=== PATIENT | male | born 1955 | race Caucasian/White ===

== ENCOUNTER 2018-01-25 14:01 | Inpatient (IN) | payer OTHER ==
[2018-01-25] MEDS ORDERED: IPRATROPIUM-ALBUTEROL 3 ML NEB INHALATION STA (15:30)
[2018-01-25] MEDS ORDERED: methylPREDNISolone SOD SUCCI 125 MG/2 ML VIAL IV STA (15:30)
--- NOTE | 2018-01-25 15:42 | ED ---
General Adult HPI - General Chief complaint: Recheck/Abnormal Lab/Rx Stated complaint: dehydration, cant eat Time Seen by Provider: 01/25/18 15:07 Source: patient, family, RN notes reviewed Mode of arrival: wheelchair Limitations: no limitations - History of Present Illness Initial comments: Patient is a pleasant 62-year-old male presenting to the emergency Department with complaints of dyspnea. Patient does have COPD. Patient states he is only able to walk 4-6 feet before becoming short of breath. This is a chronic problem for him, worsening or no. No fever or significant cough. Patient has had decreased appetite recently. Patient has had some vomiting. Patient is tolerating fluids. Patient was in the hospital for around 6 weeks ago and did have a stent placed at that time. Patient did go to rehab. Patient feels he could be dehydrated. Patient states his finger discoloration is chronic from [place] - Related Data Home Medications Medication Instructions Recorded Confirmed Albuterol Inhaler [Ventolin Hfa 2 puff INHALATION RT-Q4H PRN 01/25/18 01/25/18 Inhaler] Albuterol Nebulized [Ventolin 2.5 mg INHALATION RT-TID PRN 01/25/18 01/25/18 Nebulized] Aspirin EC [Ecotrin Low Dose] 81 mg PO DAILY 01/25/18 01/25/18 Budesonide [Pulmicort] 0.5 mg INHALATION RT-BID 01/25/18 01/25/18 Clopidogrel Bisulfate [Plavix] 75 mg PO DAILY 01/25/18 01/25/18 Folic Acid 1 mg PO DAILY 01/25/18 01/25/18 Pantoprazole [Protonix] 40 mg PO DAILY 01/25/18 01/25/18 Tamsulosin HCl [Flomax] 0.4 mg PO DAILY 01/25/18 01/25/18 Allergies Allergy/AdvReac Type Severity Reaction Status Date / Time No Known Allergies Allergy Verified 01/25/18 15:23 Review of Systems ROS Statement: Those systems with pertinent positive or pertinent negative responses have been documented in the HPI. ROS Other: All systems not noted in ROS Statement are negative. Constitutional: Denies: fever Eyes: Denies: eye pain ENT: Denies: ear pain Respiratory: Reports: dyspnea Cardiovascular: Reports: chest pain (This has been present for months) Endocrine: Reports: fatigue Gastrointestinal: Reports: nausea, vomiting. Denies: abdominal pain Genitourinary: Denies: dysuria Musculoskeletal: Denies: back pain Skin: Denies: rash Neurological: Denies: headache Past Medical History Past Medical History: Atrial Fibrillation, COPD, Hypertension History of Any Multi-Drug Resistant Organisms: None Reported Past Surgical History: Bowel Resection, Heart Catheterization With Stent Past Psychological History: Depression Smoking Status: Current every day smoker Past Alcohol Use History: Daily Past Drug Use History: None Reported - Past Family History Father Family Medical History: Myocardial Infarction ([place]) Additional Family Medical History / Comment(s): Father had 3 MIs, he had his first one at the age of 50 yrs. He at the age of 85 yrs. Mother Family Medical History: No Reported History Additional Family Medical History / Comment(s): Mother was healthy and lived to be 94 or 95 yrs old. General Exam Limitations: no limitations General appearance: alert, in no apparent distress Head exam: Present: atraumatic Eye exam: Present: normal appearance, PERRL ENT exam: Present: normal oropharynx Neck exam: Present: normal inspection Respiratory exam: Present: decreased breath sounds Cardiovascular Exam: Present: regular rate, normal rhythm GI/Abdominal exam: Present: soft. Absent: tenderness Extremities exam: Present: normal inspection. Absent: pedal edema, calf tenderness Neurological exam: Present: alert Psychiatric exam: Present: normal affect, normal mood Skin exam: Present: other (Multiple fingers with purplish discoloration which patient states is chronic and unchanged) Course Vital Signs 01/25/18 01/25/18 01/25/18 14:14 14:59 15:43 Temperature 98.0 F Pulse Rate 64 120 H 90 Pulse Rate [ Right Sitting Brachial] Respiratory 18 18 Rate Blood Pressure 88/62 102/77 Blood Pressure [Right Arm Sitting] O2 Sat by Pulse 97 Oximetry 01/25/18 01/25/18 01/25/18 15:53 17:00 17:30 Temperature Pulse Rate 86 88 Pulse Rate [ Right Sitting Brachial] Respiratory 37 H 16 Rate Blood Pressure 113/80 Blood Pressure [Right Arm Sitting] O2 Sat by Pulse Oximetry 01/25/18 01/25/18 01/25/18 18:00 18:30 19:00 Temperature Pulse Rate 84 80 90 Pulse Rate [ Right Sitting Brachial] Respiratory 17 15 16 Rate Blood Pressure 110/84 104/69 112/76 Blood Pressure [Right Arm Sitting] O2 Sat by Pulse Oximetry 01/25/18 01/25/18 01/25/18 20:00 20:30 21:00 Temperature Pulse Rate 77 76 86 Pulse Rate [ Right Sitting Brachial] Respiratory 17 16 19 Rate Blood Pressure 135/83 96/72 120/61 Blood Pressure [Right Arm Sitting] O2 Sat by Pulse Oximetry 01/25/18 01/25/18 01/25/18 21:30 21:56 22:00 Temperature Pulse Rate 82 90 79 Pulse Rate [ Right Sitting Brachial] Respiratory 15 16 Rate Blood Pressure 105/63 112/74 Blood Pressure [Right Arm Sitting] O2 Sat by Pulse Oximetry 01/25/18 01/25/18 01/25/18 22:07 22:30 22:35 Temperature Pulse Rate 88 80 71 Pulse Rate [ Right Sitting Brachial] Respiratory 35 H 24 Rate Blood Pressure 113/73 103/85 Blood Pressure [Right Arm Sitting] O2 Sat by Pulse Oximetry 01/26/18 01/26/18 01/26/18 03:49 04:00 05:00 Temperature 97.1 F L Pulse Rate 70 67 66 Pulse Rate [ Right Sitting Brachial] Respiratory 15 21 22 Rate Blood Pressure 95/61 95/61 114/66 Blood Pressure [Right Arm Sitting] O2 Sat by Pulse 100 100 100 Oximetry 01/26/18 01/26/18 01/26/18 06:00 07:50 07:59 Temperature Pulse Rate 68 68 78 Pulse Rate [ Right Sitting Brachial] Respiratory 14 Rate Blood Pressure 106/64 Blood Pressure [Right Arm Sitting] O2 Sat by Pulse 100 Oximetry 01/26/18 01/26/18 01/26/18 08:00 11:38 12:07 Temperature 97.6 F 97.7 F Pulse Rate 75 Pulse Rate [ 65 81 Right Sitting Brachial] Respiratory 18 18 Rate Blood Pressure Blood Pressure 121/64 115/43 [Right Arm Sitting] O2 Sat by Pulse 95 94 L Oximetry 01/26/18 01/26/18 01/26/18 12:18 16:01 16:10 Temperature Pulse Rate 76 78 85 Pulse Rate [ Right Sitting Brachial] Respiratory Rate Blood Pressure Blood Pressure [Right Arm Sitting] O2 Sat by Pulse Oximetry 01/26/18 16:12 Temperature 97.7 F Pulse Rate Pulse Rate [ 76 Right Sitting Brachial] Respiratory 16 Rate Blood Pressure Blood Pressure 110/60 [Right Arm Sitting] O2 Sat by Pulse 95 Oximetry EKG Findings - EKG Comments: EKG Findings:: Normal sinus rhythm 89. NV 150. QRS 78. QT 3. QTC 462. Left axis. Septal Q waves. No acute ST change. Medical Decision Making - Lab Data Result diagrams: 01/25/18 15:00 01/26/18 03:11 Lab Results 01/25/18 01/25/18 01/25/18 Range/Units 15:00 15:00 15:00 WBC 15.1 H (3.8-10.6) k/uL RBC 4.56 (4.30-5.90) m/uL Hgb 16.3 (13.0-17.5) gm/dL Hct 48.7 (39.0-53.0) % MCV 106.8 H (80.0-100.0) fL MCH 35.7 H (25.0-35.0) pg MCHC 33.4 (31.0-37.0) g/dL RDW 12.9 (11.5-15.5) % Plt Count 309 (150-450) k/uL Neutrophils % 79 % Lymphocytes % 11 % Monocytes % 8 % Eosinophils % 1 % Basophils % 0 % Neutrophils # 11.9 H (1.3-7.7) k/uL Lymphocytes # 1.7 (1.0-4.8) k/uL Monocytes # 1.2 H (0-1.0) k/uL Eosinophils # 0.1 (0-0.7) k/uL Basophils # 0.1 (0-0.2) k/uL Macrocytosis Moderate PT (9.0-12.0) sec INR (<1.2) APTT (22.0-30.0) sec Sodium 131 L (137-145) mmol/L Potassium 4.0 (3.5-5.1) mmol/L Chloride 97 L (98-107) mmol/L Carbon Dioxide 16 L (22-30) mmol/L Anion Gap 18 mmol/L BUN 57 H (9-20) mg/dL Creatinine 3.02 H (0.66-1.25) mg/dL Est GFR (CKD-EPI)AfAm 24 (>60 ml/min/1.73 sqM) Est GFR (CKD-EPI)NonAf 21 (>60 ml/min/1.73 sqM) Glucose 142 H (74-99) mg/dL Calcium 10.0 (8.4-10.2) mg/dL Total Bilirubin 0.6 (0.2-1.3) mg/dL AST 23 (17-59) U/L ALT 17 L (21-72) U/L Alkaline Phosphatase 87 (38-126) U/L Total Creatine Kinase 23 L (55-170) U/L CK-MB (CK-2) 4.1 H (0.0-2.4) ng/mL CK-MB (CK-2) Rel Index 17.8 Troponin I 0.042 H* (0.000-0.034) ng/mL NT-Pro-B Natriuret Pep pg/mL Total Protein 7.7 (6.3-8.2) g/dL Albumin 4.3 (3.5-5.0) g/dL 01/25/18 01/25/18 Range/Units 15:00 15:00 WBC (3.8-10.6) k/uL RBC (4.30-5.90) m/uL Hgb (13.0-17.5) gm/dL Hct (39.0-53.0) % MCV (80.0-100.0) fL MCH (25.0-35.0) pg MCHC (31.0-37.0) g/dL RDW (11.5-15.5) % Plt Count (150-450) k/uL Neutrophils % % Lymphocytes % % Monocytes % % Eosinophils % % Basophils % % Neutrophils # (1.3-7.7) k/uL Lymphocytes # (1.0-4.8) k/uL Monocytes # (0-1.0) k/uL Eosinophils # (0-0.7) k/uL Basophils # (0-0.2) k/uL Macrocytosis PT 11.1 (9.0-12.0) sec INR 1.2 H (<1.2) APTT 27.9 (22.0-30.0) sec Sodium (137-145) mmol/L Potassium (3.5-5.1) mmol/L Chloride (98-107) mmol/L Carbon Dioxide (22-30) mmol/L Anion Gap mmol/L BUN (9-20) mg/dL Creatinine (0.66-1.25) mg/dL Est GFR (CKD-EPI)AfAm (>60 ml/min/1.73 sqM) Est GFR (CKD-EPI)NonAf (>60 ml/min/1.73 sqM) Glucose (74-99) mg/dL Calcium (8.4-10.2) mg/dL Total Bilirubin (0.2-1.3) mg/dL AST (17-59) U/L ALT (21-72) U/L Alkaline Phosphatase (38-126) U/L Total Creatine Kinase (55-170) U/L CK-MB (CK-2) (0.0-2.4) ng/mL CK-MB (CK-2) Rel Index Troponin I (0.000-0.034) ng/mL NT-Pro-B Natriuret Pep 1020 pg/mL Total Protein (6.3-8.2) g/dL Albumin (3.5-5.0) g/dL - Radiology Data Radiology results: image reviewed (Chest x-ray shows no acute process) Disposition Clinical Impression: COPD (chronic obstructive pulmonary disease) Disposition: ADMITTED IP TO THIS HOSP Is patient prescribed a controlled substance at d/c from ED?: No
[2018-01-25 15:49] LABS: Basophils # (A) 0.1 k/uL (0-0.2); Basophils % (A) 0 %; Eosinophils # (A) 0.1 k/uL (0-0.7); Eosinophils % (A) 1 %; HCT 48.7 % (39.0-53.0); HGB 16.3 gm/dL (13.0-17.5); Lymphocytes # (A) 1.7 k/uL (1.0-4.8); Lymphocytes % (A) 11 %; MCH 35.7 pg (25.0-35.0); MCHC 33.4 g/dL (31.0-37.0); MCV 106.8 fL (80.0-100.0); Macrocytosis Moderate; Mean Platelet Volume 7.7; Monocytes # (A) 1.2 k/uL (0-1.0); Monocytes % (A) 8 %; Neutrophils # (A) 11.9 k/uL (1.3-7.7); Neutrophils % (A) 79 %; Platelet Count 309 k/uL (150-450); RBC 4.56 m/uL (4.30-5.90); RDW 12.9 % (11.5-15.5); WBC 15.1 k/uL (3.8-10.6)
[2018-01-25 15:58] LABS: Albumin 4.3 g/dL (3.5-5.0); Total Bilirubin 0.6 mg/dL (0.2-1.3); Total Protein 7.7 g/dL (6.3-8.2)
[2018-01-25 15:59] LABS: INR 1.2 (<1.2); Partial Thromboplastin Time 27.9 sec (22.0-30.0); Prothrombin Time 11.1 sec (9.0-12.0)
--- NOTE | 2018-01-25 16:29 | XR ---
EXAMINATION TYPE: XR chest 2V DATE OF EXAM: 01/25/2018 COMPARISON: NONE HISTORY: Difficulty breathing TECHNIQUE: Frontal and lateral views of the chest are obtained on 3 images. FINDINGS: There is no focal air space opacity, pleural effusion, or pneumothorax seen. The cardiac silhouette size is small. The osseous structures are intact. Prominent lung volumes are compatible with underlying COPD. Aorta shows calcification. IMPRESSION: No acute cardiopulmonary process.
[2018-01-25 16:31] LABS: Creatine Kinase MB 4.1 ng/mL (0.0-2.4)
[2018-01-25 16:36] LABS: Troponin I 0.042 ng/mL (0.000-0.034)
[2018-01-25] MEDS ORDERED: IPRATROPIUM-ALBUTEROL 3 ML NEB INHALATION PRN (16:46)
[2018-01-25] MEDS ORDERED: NALOXONE 0.4 MG/ML 1 ML VIAL IV PRN (16:48)
[2018-01-25] MEDS ORDERED: methylPREDNISolone SOD SUCCI 125 MG/2 ML VIAL IV SCH (18:00)
[2018-01-25] MEDS: SODIUM CHLORIDE 0.9% 1,000 ML IV SCH ×2 (20:23→21:45)
[2018-01-25] MEDS ORDERED: ASPIRIN 81 MG PO STA (20:35)
[2018-01-25] MEDS ORDERED: CLOPIDOGREL 75 MG TAB PO STA (20:36)
[2018-01-25] MEDS ORDERED: NITROGLYCERIN SL TABS 0.4 MG TAB SUBLINGUAL PRN (20:38)
--- NOTE | 2018-01-25 20:45 | P.HPIM ---
History of Present Illness H&P Date: 01/25/18 Chief Complaint: shortness of breath/chest pain The patient is a 62-year-old poor historian male with a past medical history of coronary artery disease with recent stent placement at the end of November at [facility] who presents to the ER with chief complaint of ongoing shortness of breath with exertion, the patient denies any significant cough subjective fevers chills or night sweats. He does report intermittent chest discomfort associated with exertion, he denies any lower extremity swelling. 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 He also reports increased output in his ileostomy and decreased appetite. In the ER the patient had a workup that consisted of this chest x-ray that showed no acute intrathoracic process, the patient was noted to have a leukocytosis of 15, and significantly elevated serum creatinine at 3.1, serum sodium of 131, serum bicarb of 15, and troponin at .042. EKG showing septal Q waves, with no acute ischemia. Past Medical History Past Medical History: Atrial Fibrillation, COPD, Hypertension History of Any Multi-Drug Resistant Organisms: None Reported Past Surgical History: Bowel Resection, Heart Catheterization With Stent Past Psychological History: Depression Smoking Status: Current every day smoker Past Alcohol Use History: Daily Past Drug Use History: None Reported Medications and Allergies Home Medications Medication Instructions Recorded Confirmed Type Albuterol Inhaler [Ventolin Hfa 2 puff INHALATION RT-Q4H PRN 01/25/18 01/25/18 History Inhaler] Albuterol Nebulized [Ventolin 2.5 mg INHALATION RT-TID PRN 01/25/18 01/25/18 History Nebulized] Aspirin EC [Ecotrin Low Dose] 81 mg PO DAILY 01/25/18 01/25/18 History Budesonide [Pulmicort] 0.5 mg INHALATION RT-BID 01/25/18 01/25/18 History Clopidogrel Bisulfate [Plavix] 75 mg PO DAILY 01/25/18 01/25/18 History Folic Acid 1 mg PO DAILY 01/25/18 01/25/18 History Pantoprazole [Protonix] 40 mg PO DAILY 01/25/18 01/25/18 History Tamsulosin HCl [Flomax] 0.4 mg PO DAILY 01/25/18 01/25/18 History Allergies Allergy/AdvReac Type Severity Reaction Status Date / Time No Known Allergies Allergy Verified 01/25/18 15:23 Physical Exam Vitals: Vital Signs Temp Pulse Resp BP Pulse Ox 01/25/18 19:00 90 16 112/76 01/25/18 18:30 80 15 104/69 01/25/18 18:00 84 17 110/84 01/25/18 17:30 88 16 113/80 01/25/18 17:00 37 H 01/25/18 15:53 86 01/25/18 15:43 90 01/25/18 14:59 120 H 18 102/77 01/25/18 14:14 98.0 F 64 18 88/62 97 Intake and Output 01/25/18 01/25/18 01/25/18 06:59 14:59 22:59 Other: Weight 62.142 kg Constitutional: No acute distress, conversant, pleasant Eyes: Anicteric sclerae, moist conjunctiva, no lid-lag, PERRLA ENMT: NC/AT,Oropharynx clear, no erythema, exudates Neck:Supple, FROM, no masses, or JVD, No carotid bruits; No thyromegaly Lungs: Clear to auscultation, Clear to percussion, Normal respiratory effort, no accessory muscle use Cardiovascular: Heart regular in rate and rhythm, No murmurs, gallops, or rubs no peripheral edema Abdominal: Soft Nontender, nom distended, no guarding, no rebound or rigidity, Normoactive bowel sounds No hepatomegaly, No splenomegaly, No palpable mass No abdominal wall hernia noted Skin: Normal temperature, tone, texture, turgor, No induration No subcutaneous nodules, No rash, lesions, No ulcers Extremities:No digital cyanosis No clubbing, Pedal pulses intact and symmetrical Radial pulses intact and symmetrical Normal gait and station, No calf tenderness Psychiatric: Alert and oriented to person, place and time, Appropriate affect Intact judgement Neuro: Muscles Strength 5/5 in all 4 extremities, Sensation to light touch grossly present throughout, Cranial nerves II-XII grossly intact. No focal sensory deficits Results CBC & Chem 7: 01/25/18 15:00 01/26/18 03:11 Labs: Abnormal Lab Results - Last 24 Hours (Table) 01/25/18 01/25/18 01/25/18 Range/Units 15:00 15:00 15:00 WBC 15.1 H (3.8-10.6) k/uL MCV 106.8 H (80.0-100.0) fL MCH 35.7 H (25.0-35.0) pg Neutrophils # 11.9 H (1.3-7.7) k/uL Monocytes # 1.2 H (0-1.0) k/uL INR (<1.2) Sodium 131 L (137-145) mmol/L Chloride 97 L (98-107) mmol/L Carbon Dioxide 16 L (22-30) mmol/L BUN 57 H (9-20) mg/dL Creatinine 3.02 H (0.66-1.25) mg/dL Glucose 142 H (74-99) mg/dL ALT 17 L (21-72) U/L Total Creatine Kinase 23 L (55-170) U/L CK-MB (CK-2) 4.1 H (0.0-2.4) ng/mL Troponin I 0.042 H* (0.000-0.034) ng/mL 01/25/18 Range/Units 15:00 WBC (3.8-10.6) k/uL MCV (80.0-100.0) fL MCH (25.0-35.0) pg Neutrophils # (1.3-7.7) k/uL Monocytes # (0-1.0) k/uL INR 1.2 H (<1.2) Sodium (137-145) mmol/L Chloride (98-107) mmol/L Carbon Dioxide (22-30) mmol/L BUN (9-20) mg/dL Creatinine (0.66-1.25) mg/dL Glucose (74-99) mg/dL ALT (21-72) U/L Total Creatine Kinase (55-170) U/L CK-MB (CK-2) (0.0-2.4) ng/mL Troponin I (0.000-0.034) ng/mL Assessment and Plan Assessment: Chronic medical conditions GERD BPH Ileostomy secondary to severe diverticulitis (1) Unstable angina Current Visit: Yes Status: Acute Code(s): I20.0 - UNSTABLE ANGINA SNOMED Code(s): 6425988 (2) Acute kidney injury Current Visit: Yes Status: Acute Code(s): N17.9 - ACUTE KIDNEY FAILURE, UNSPECIFIED SNOMED Code(s): 47805451 (3) COPD (chronic obstructive pulmonary disease) Current Visit: Yes Status: Acute Code(s): J44.9 - CHRONIC OBSTRUCTIVE PULMONARY DISEASE, UNSPECIFIED SNOMED Code(s): 68965433 (4) Coronary artery disease Current Visit: Yes Status: Acute Code(s): I25.10 - ATHSCL HEART DISEASE OF [place] CORONARY ARTERY W/O ANG PCTRS SNOMED Code(s): 50526372 (5) Metabolic acidosis Current Visit: Yes Status: Acute Code(s): E87.2 - ACIDOSIS SNOMED Code(s) : 67965102 (6) Hyponatremia Current Visit: Yes Status: Acute Code(s): E87.1 - HYPO-OSMOLALITY AND HYPONATREMIA SNOMED Code(s): 49276143 Plan: The patient is admitted anticipated greater than 2 midnight stay with dyspnea and intermittent chest pain concern for UA/non stemi . Initial EKG is negative for any acute ischemia troponins are elevated .042 the setting of acute kidney injury versus possible chronic kidney. The patient is placed on dual antiplatelet therapy with Plavix and aspirin and started on IV heparin drip with plans for urgent cardiology consultation. Urinalysis and blood cultures, lactic acid are order given patient's leukocytosis. Acute kidney injury with metabolic acidosis likely prerenal secondary to possible dehydration or cardiorenal, plantar consult nephrology and order renal ultrasound. Patient initiated on maintenance IV fluids after given a 2 L bolus in the ER. CODE STATUS Full code Discussed plan of care with patient/ ER physician Anticipated discharge 2 - 3 days
[2018-01-25] MEDS: HEPARIN SOD,PORK IN 0.45% NACL 25,000 UNIT in 0.45% NACL 1 500ML.BAG IV SCH (21:42)
[2018-01-25] MEDS: IPRATROPIUM-ALBUTEROL 3 ML NEB INHALATION SCH (21:56)
[2018-01-25 22:09] LABS: Creatine Kinase MB 3.9 ng/mL (0.0-2.4)
[2018-01-25 22:10] LABS: Troponin I 0.042 ng/mL (0.000-0.034)
--- NOTE | 2018-01-25 23:00 | US ---
EXAMINATION TYPE: US renals and bladder DATE OF EXAM: 01/25/2018 COMPARISON: NONE CLINICAL HISTORY: HUGH. HUGH Exam limitations patient unable to roll well. EXAM MEASUREMENTS: Right Kidney: 9.0 x 3.3 x 3.7 cm Left Kidney: 10.3 x 4.5 x 3.8 cm Right Kidney: No hydronephrosis or masses seen Left Kidney: No hydronephrosis or masses seen Bladder: wnl Bilateral Jets seen: No There is no evidence for hydronephrosis at this point in time. No nephrolithiasis is seen. No rosy s are identified. The urinary bladder is anechoic. IMPRESSION: No evidence of renal mass or obstruction. Urinary bladder is unremarkable. Right kidney shows mild co rtical thinning.
[2018-01-26] MEDS: SODIUM CHLORIDE 0.9% 1,000 ML IV SCH ×3 (01:33→15:53)
[2018-01-26 03:54] LABS: Albumin 3.2 g/dL (3.5-5.0); Calcium 9.2 mg/dL (8.4-10.2); Potassium 4.6 mmol/L (3.5-5.1); Total Bilirubin 0.4 mg/dL (0.2-1.3); Total Protein 6.1 g/dL (6.3-8.2)
[2018-01-26 03:55] LABS: Creatine Kinase <20 U/L (55-170)
[2018-01-26 04:06] LABS: Creatine Kinase MB 3.4 ng/mL (0.0-2.4); Troponin I 0.029 ng/mL (0.000-0.034)
[2018-01-26 04:28] LABS: Cholesterol 166 mg/dL (<200); HDL Cholesterol 48 mg/dL (40-60); LDL Cholesterol,Calculated 105 mg/dL (0-99); Triglycerides 66 mg/dL (<150)
[2018-01-26 06:40] LABS: Appearance,Urine Clear (Clear); Bilirubin,Urine Negative (Negative); Blood,Urine Negative (Negative); Color,Urine Yellow; Glucose,Urine (UA) Negative (Negative); Ketones,Urine Negative (Negative); Leukocyte Esterase,Urine Negative (Negative); Nitrite,Urine Negative (Negative); PH, Urine 5.5 (5.0-8.0); Protein,Urine Trace (Negative); Specific Gravity,Urine 1.014 (1.001-1.035); Urobilinogen,Urine <2.0 mg/dL (<2.0)
[2018-01-26] MEDS: IPRATROPIUM-ALBUTEROL 3 ML NEB INHALATION SCH ×4 (07:50→19:37)
[2018-01-26] MEDS: PANTOPRAZOLE 40 MG TABLET PO SCH (08:42)
[2018-01-26] MEDS: ASPIRIN 81 MG PO SCH (08:43)
[2018-01-26] MEDS: CLOPIDOGREL 75 MG TAB PO SCH (08:43)
[2018-01-26] MEDS: TAMSULOSIN 0.4 MG CAP.ER.24H PO SCH (08:43)
--- NOTE | 2018-01-26 12:11 | P.CRDCN ---
History of Present Illness Consult date: 01/26/18 Requesting physician: Meghan Ennis Consult reason: chest pain Chief complaint: Shortness of breath and chest discomfort History of present illness: This is a 62-year-old gentleman who is somewhat of a poor historian, he was seen and evaluated in the emergency room. He did not really want to answer any questions he just wanted to be left alone. Patient has past medical history significant for coronary artery disease with a recent stent placement in November at [facility], he also has history of paroxysmal atrial fibrillation, hypertension, COPD, hyperlipidemia, nicotine dependence, bowel resection. He presented to the emergency room on this occasion with ongoing shortness of breath mainly with exertion, he also states that when he exerts himself he's been getting some discomfort in the chest. Patient did also have a recent admission to [facility], diagnosed with acute renal failure and dehydration according to the patient. Chest x-ray on arrival here did not reveal any acute cardiopulmonary process. His EKG showed a normal sinus rhythm with left anterior fascicular block and nonspecific ST-T wave changes. Renal ultrasound did not reveal any evidence of a renal mass or obstruction. Urinary bladder is unremarkable. Right kidney shows mild cortical thinning. Blood pressure 115/40 heart rate in the 80s temperature 90.7 0.794% on 2 L of oxygen. White blood cell count 15.1, hemoglobin 16.3, platelet count 309. Sodium 130, potassium 4.6, BUN 54, creatinine 2.6. BUN on admission 57 and creatinine 3.0. Troponin 0.042, 0.042, 0.029. Cholesterol level is 166, LDL 105, HDL 48, and triglycerides 66. At the time of my examination in the emergency room, patient was denying any chest discomfort. Past Medical History Past Medical History: Atrial Fibrillation, Coronary Artery Disease (CAD), COPD, GERD/Reflux, Hypertension, Pneumonia, Prostate Disorder Additional Past Medical History / Comment(s): Pt states he recently had PCI with stents about [address] [facility], generalized chronic pain, past multiple fractures including cervical fracture, severe diverticulitis with bowel resection/ileostomy and had bladder injury during surgery which required surgery then devloped an abdominal abscess which also required surgery, recent acute renal failure possibly d/t dehydration, 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 History of Any Multi-Drug Resistant Organisms: None Reported Past Surgical History: Appendectomy, Bladder Surgery, Bowel Resection, Heart Catheterization With Stent, Hernia Repair, Orthopedic Surgery Additional Past Surgical History / Comment(s): 11/2017 PCI with stent at [facility], colonoscopies, bowel resection with ileostomy, cystoscopy for bladder repair, abdominal abscess with surgical intervention, R inguinal hernia repair with mesh, R knee arthroscopy. Past Anesthesia/Blood Transfusion Reactions: No Reported Reaction Date of Last Stent Placement:: 12/06/17 Smoking Status: Current every day smoker - Past Family History Father Family Medical History: Myocardial Infarction ([place]) Additional Family Medical History / Comment(s): Father had 3 MIs, he had his first one at the age of 50 yrs. He at the age of 85 yrs. Mother Family Medical History: No Reported History Additional Family Medical History / Comment(s): Mother was healthy and lived to be 94 or 95 yrs old. Medications and Allergies Home Medications Medication Instructions Recorded Confirmed Type Albuterol Inhaler [Ventolin Hfa 2 puff INHALATION RT-Q4H PRN 01/25/18 01/25/18 History Inhaler] Albuterol Nebulized [Ventolin 2.5 mg INHALATION RT-TID PRN 01/25/18 01/25/18 History Nebulized] Aspirin EC [Ecotrin Low Dose] 81 mg PO DAILY 01/25/18 01/25/18 History Budesonide [Pulmicort] 0.5 mg INHALATION RT-BID 01/25/18 01/25/18 History Clopidogrel Bisulfate [Plavix] 75 mg PO DAILY 01/25/18 01/25/18 History Folic Acid 1 mg PO DAILY 01/25/18 01/25/18 History Pantoprazole [Protonix] 40 mg PO DAILY 01/25/18 01/25/18 History Tamsulosin HCl [Flomax] 0.4 mg PO DAILY 01/25/18 01/25/18 History Allergies Allergy/AdvReac Type Severity Reaction Status Date / Time No Known Allergies Allergy Verified 01/25/18 15:23 Physical Exam Vitals: Vital Signs Temp Pulse Pulse Resp BP BP Pulse Ox 01/26/18 11:38 97.7 F 81 18 115/43 94 L 01/26/18 08:00 97.6 F 65 18 121/64 95 01/26/18 07:59 78 01/26/18 07:50 68 01/26/18 06:00 68 14 106/64 100 01/26/18 05:00 66 22 114/66 100 01/26/18 04:00 67 21 95/61 100 01/26/18 03:49 97.1 F L 70 15 95/61 100 01/25/18 22:35 71 24 103/85 01/25/18 22:30 80 35 H 113/73 01/25/18 22:07 88 01/25/18 22:00 79 16 112/74 01/25/18 21:56 90 01/25/18 21:30 82 15 105/63 01/25/18 21:00 86 19 120/61 01/25/18 20:30 76 16 96/72 01/25/18 20:00 77 17 135/83 01/25/18 19:00 90 16 112/76 01/25/18 18:30 80 15 104/69 01/25/18 18:00 84 17 110/84 01/25/18 17:30 88 16 113/80 01/25/18 17:00 37 H 01/25/18 15:53 86 01/25/18 15:43 90 01/25/18 14:59 120 H 18 102/77 01/25/18 14:14 98.0 F 64 18 88/62 97 PHYSICAL EXAMINATION: GENERAL: 62-year-old gentleman in no acute distress at the time of my examination HEENT: Head is atraumatic, normocephalic. Pupils equal, round. Sclera anicteric. Conjunctiva are clear. Mucous membranes of the mouth are moist. Neck is supple. There is no elevated jugular venous pressure. No carotid bruit is heard. HEART EXAMINATION: Heart S1, S2 normal. No murmur or gallop heard. CHEST EXAMINATION: Lungs are clear to auscultation and precussion. No chest wall tenderness is noted on palpation or with deep breathing. ABDOMEN: Soft, nontender. Bowel sounds are heard. No organomegaly noted. EXTREMITIES: 2+ peripheral pulses with no evidence of peripheral edema and no calf tenderness noted. NEUROLOGIC patient is awake, alert and oriented 3 . . Results 01/25/18 15:00 01/26/18 03:11 Cardiac Enzymes 01/25/18 01/25/18 01/25/18 Range/Units 15:00 15:00 20:59 AST 23 (17-59) U/L CK-MB (CK-2) 4.1 H 3.9 H (0.0-2.4) ng/mL Troponin I 0.042 H* 0.042 H* (0.000-0.034) ng/mL 01/26/18 01/26/18 Range/Units 03:11 03:11 AST 20 (17-59) U/L CK-MB (CK-2) 3.4 H (0.0-2.4) ng/mL Troponin I 0.029 (0.000-0.034) ng/mL Coagulation 01/25/18 01/26/18 Range/Units 15:00 03:53 PT 11.1 (9.0-12.0) sec APTT 27.9 48.2 H (22.0-30.0) sec Lipids 01/26/18 Range/Units 03:11 Triglycerides 66 (<150) mg/dL Cholesterol 166 (<200) mg/dL HDL Cholesterol 48 (40-60) mg/dL CBC 01/25/18 Range/Units 15:00 WBC 15.1 H (3.8-10.6) k/uL RBC 4.56 (4.30-5.90) m/uL Hgb 16.3 (13.0-17.5) gm/dL Hct 48.7 (39.0-53.0) % Plt Count 309 (150-450) k/uL Comprehensive Metabolic Panel 01/25/18 01/26/18 Range/Units 15:00 03:11 Sodium 131 L 130 L (137-145) mmol/L Potassium 4.0 4.6 (3.5-5.1) mmol/L Chloride 97 L 101 (98-107) mmol/L Carbon Dioxide 16 L 15 L (22-30) mmol/L BUN 57 H 54 H (9-20) mg/dL Creatinine 3.02 H 2.60 H (0.66-1.25) mg/dL Glucose 142 H 161 H (74-99) mg/dL Calcium 10.0 9.2 (8.4-10.2) mg/dL AST 23 20 (17-59) U/L ALT 17 L 14 L (21-72) U/L Alkaline Phosphatase 87 68 (38-126) U/L Total Protein 7.7 6.1 L (6.3-8.2) g/dL Albumin 4.3 3.2 L (3.5-5.0) g/dL Current Medications Generic Name Dose Route Start Last Admin Trade Name Freq PRN Reason Stop Dose Admin Albuterol/Ipratropium 3 ml 01/25/18 20:00 01/26/18 07:50 Duoneb 0.5 Mg-3 Mg/3 Ml Soln INHALATION 3 ml RT-QID MARTI Administration Albuterol/Ipratropium 3 ml 01/25/18 16:46 Duoneb 0.5 Mg-3 Mg/3 Ml Soln INHALATION RT-Q4H PRN Shortness Of Breath Or Wheezing Aspirin 81 mg 01/26/18 09:00 01/26/18 08:43 Aspirin PO 81 mg DAILY MARTI Administration Clopidogrel Bisulfate 75 mg 01/26/18 09:00 01/26/18 08:43 Plavix PO 75 mg DAILY MARTI Administration Folic Acid 1 mg 01/26/18 12:00 Folic Acid PO DAILY@1200 MARTI Sodium Chloride 1,000 mls @ 100 mls/hr 01/25/18 17:00 01/26/18 03:47 Saline 0.9% IV 100 mls/hr .Q10H MARTI Administration Heparin Sodium/Sodium Chloride 500 mls @ 14.91 mls/hr 01/25/18 20:45 21:42 25,000 unit/ Sodium Chloride IV 12 units/kg/hr .Q24H MARTI 14.91 mls/hr Administration Protocol 12 UNITS/KG/HR Naloxone HCl 0.2 mg 01/25/18 16:48 Narcan IV Q2M PRN Opioid Reversal Nitroglycerin 0.4 mg 01/25/18 20:38 Nitrostat SUBLINGUAL Q5M PRN Chest Pain Pantoprazole Sodium 40 mg 01/26/18 09:00 01/26/18 08:42 Protonix PO 40 mg DAILY MARTI Administration Tamsulosin HCl 0.4 mg 01/26/18 09:00 01/26/18 08:43 Flomax PO 0.4 mg DAILY MARTI Administration 01/25/18 15:00 01/26/18 03:11 EKG Interpretations (text) EKG shows normal sinus rhythm with left anterior fascicular block and nonspecific ST-T wave changes. Assessment and Plan Plan: Assessment and plan #1 chest pain, atypical in nature. EKG shows normal sinus rhythm with no acute changes. Troponins 0.042, 0.042, 0.029. #2 known history of coronary artery disease with recent stent placement at [facility] #3 hyperlipidemia #4 hypertension #5 nicotine dependence #6 ileostomy secondary to severe diverticulitis #7 COPD #8 acute on chronic renal failure Plan According to the patient, he just had an echocardiogram with Doppler study performed at [facility] one week ago we will obtain a copy of that. We will also get records and lab data from there. We will also obtain a copy of the patient's stent placement that he had done in November at [facility]. Continue aspirin 81 mg daily, Plavix 75 mg daily, IV heparin, we will also start the patient on a statin and beta lula. Further recommendations to follow. DNP note has been reviewed, I agree with a documented findings and plan of care. Patient was seen and examined.
--- NOTE | 2018-01-26 13:30 | P.PN ---
Subjective Progress Note Date: 01/26/18 The patient is a 62 yo M with a PMH of CAD s/p PCI w/ stent placement in 11/2017 @ [facility], severe diverticulitis requiring ileostomy (2004), who presented to the ED w/ c/o gradually worsening exertional dyspnea. The patient was recently hospitalized at [facility] where he was treated for ARF. He notes that he has been experiencing gradually worsening SOB though denied chest pain, cough, fever, chills, or diaphoresis. He also endorsed intermittent abdominal pain w/ nausea, vomiting and anorexia. In the ED, the patient was noted to have Troponin 0.042, Creatinine 3.02, WBC 15.1, and Sodium 131. He was admitted to the medicine service for evaluation of chest pain and SOB w/ suspected unstable angina and HUGH. This morning the patient was seen and examined at the bedside. He continued to c/o exertional dyspnea but denied any active chest pain. He denied any further episodes of nausea, vomiting, diarphoresis, dizziness, abdominal pain, headache, or visual changes. Objective - Vital Signs Vital signs: Vital Signs Temp 97.7 F 01/26/18 11:38 Pulse 81 01/26/18 11:38 Resp 18 01/26/18 11:38 BP 115/43 01/26/18 11:38 Pulse Ox 94 L 01/26/18 11:38 Intake & Output 01/25/18 01/26/18 01/26/18 18:59 06:59 18:59 Weight 62.142 kg - Exam General: Non-toxic, in no acute distress, appears older than age HEENT: NC/AT, anicteric sclerae, moist conjunctiva, no lid-lag, PERRLA Cardiovascular: S1/S2 wnl, no murmurs, rubs, or gallops Lungs: Clear to auscultation, normal respiratory effort, no accessory muscle use Abdominal: Soft, nontender, non-distended, no guarding, rebound, or rigidity, L colostomy bag intact, surrounding skin normal Skin: Warm, dry Extremities: No edema or contractures Psychiatric: Alert and oriented to person, place and time, appropriate affect, Intact judgment Neuro: CN II-XII grossly intact, Strength 5/5 in all 4 extremities, Speech intact, Sensation to light touch grossly intact throughout - Labs CBC & Chem 7: 01/25/18 15:00 01/26/18 03:11 Labs: Abnormal Lab Results - Last 24 Hours (Table) 01/25/18 01/25/18 01/25/18 Range/Units 15:00 15:00 15:00 WBC 15.1 H (3.8-10.6) k/uL MCV 106.8 H (80.0-100.0) fL MCH 35.7 H (25.0-35.0) pg Neutrophils # 11.9 H (1.3-7.7) k/uL Monocytes # 1.2 H (0-1.0) k/uL INR (<1.2) APTT (22.0-30.0) sec Sodium 131 L (137-145) mmol/L Chloride 97 L (98-107) mmol/L Carbon Dioxide 16 L (22-30) mmol/L BUN 57 H (9-20) mg/dL Creatinine 3.02 H (0.66-1.25) mg/dL Glucose 142 H (74-99) mg/dL ALT 17 L (21-72) U/L Total Creatine Kinase 23 L (55-170) U/L CK-MB (CK-2) 4.1 H (0.0-2.4) ng/mL Troponin I 0.042 H* (0.000-0.034) ng/mL Total Protein (6.3-8.2) g/dL Albumin (3.5-5.0) g/dL LDL Cholesterol, Calc (0-99) mg/dL Urine Protein (Negative) 01/25/18 01/25/18 01/26/18 Range/Units 15:00 20:59 03:11 WBC (3.8-10.6) k/uL MCV (80.0-100.0) fL MCH (25.0-35.0) pg Neutrophils # (1.3-7.7) k/uL Monocytes # (0-1.0) k/uL INR 1.2 H (<1.2) APTT (22.0-30.0) sec Sodium (137-145) mmol/L Chloride (98-107) mmol/L Carbon Dioxide (22-30) mmol/L BUN (9-20) mg/dL Creatinine (0.66-1.25) mg/dL Glucose (74-99) mg/dL ALT (21-72) U/L Total Creatine Kinase 27 L <20 L (55-170) U/L CK-MB (CK-2) 3.9 H 3.4 H (0.0-2.4) ng/mL Troponin I 0.042 H* (0.000-0.034) ng/mL Total Protein (6.3-8.2) g/dL Albumin (3.5-5.0) g/dL LDL Cholesterol, Calc (0-99) mg/dL Urine Protein (Negative) 01/26/18 01/26/18 01/26/18 Range/Units 03:11 03:11 03:53 WBC (3.8-10.6) k/uL MCV (80.0-100.0) fL MCH (25.0-35.0) pg Neutrophils # (1.3-7.7) k/uL Monocytes # (0-1.0) k/uL INR (<1.2) APTT 48.2 H (22.0-30.0) sec Sodium 130 L (137-145) mmol/L Chloride (98-107) mmol/L Carbon Dioxide 15 L (22-30) mmol/L BUN 54 H (9-20) mg/dL Creatinine 2.60 H (0.66-1.25) mg/dL Glucose 161 H (74-99) mg/dL ALT 14 L (21-72) U/L Total Creatine Kinase (55-170) U/L CK-MB (CK-2) (0.0-2.4) ng/mL Troponin I (0.000-0.034) ng/mL Total Protein 6.1 L (6.3-8.2) g/dL Albumin 3.2 L (3.5-5.0) g/dL LDL Cholesterol, Calc 105 H (0-99) mg/dL Urine Protein (Negative) 01/26/18 Range/Units 06:12 WBC (3.8-10.6) k/uL MCV (80.0-100.0) fL MCH (25.0-35.0) pg Neutrophils # (1.3-7.7) k/uL Monocytes # (0-1.0) k/uL INR (<1.2) APTT (22.0-30.0) sec Sodium (137-145) mmol/L Chloride (98-107) mmol/L Carbon Dioxide (22-30) mmol/L BUN (9-20) mg/dL Creatinine (0.66-1.25) mg/dL Glucose (74-99) mg/dL ALT (21-72) U/L Total Creatine Kinase (55-170) U/L CK-MB (CK-2) (0.0-2.4) ng/mL Troponin I (0.000-0.034) ng/mL Total Protein (6.3-8.2) g/dL Albumin (3.5-5.0) g/dL LDL Cholesterol, Calc (0-99) mg/dL Urine Protein Trace H (Negative) Assessment and Plan Plan: Exertional dyspnea, atypical chest pain, Troponin elevation - Cardiology recs appreciated - C/w Aspirin, Plavix, Statin, BB, and IV Heparin as per cardiology recs - Troponin downtrended - EKG and CXR reviewed Leukocytosis - UA unremarkable - Lactate 2.0 - No clear signs of infection - Possibly reactive HUGH on CKD - Renal US showing mild cortical thickening of R kidney - Possibly secondary to dehydration - Will monitor. Improved Hyponatremia - Possibly reactive from pain and nausea/vomiting vs due to poor oral intake - Monitor for now COPD - C/w Budesonide inhaler bid w/ Albuterol prn BPH - C/w Flomax DVT//GI prophylaxis - IV Heparin - Protonix Discussed with: Patient Anticipated discharge date: 01/28/[address]: Home A total of 40 minutes was spent on the care of this complex patient more than 50 % of the time was spent in counseling and care coordination.
[2018-01-26] MEDS: FOLIC ACID 1 MG TAB PO SCH (15:48)
--- NOTE | 2018-01-26 16:05 | P.CNPUL ---
History of Present Illness Consult date: 01/26/18 Requesting physician: Nacho Sy Reason for consult: dyspnea, chest pain Chief complaint: Dyspnea, chest pain History of present illness: This is 62-year-old white male patient past medical history of COPD, coronary artery disease with recent stenting, atrial fibrillation, hypertension, continue dependence, depression, is on to the emergency department on 2017 for evaluation of chest pain, shortness of breath, subjective chills, nausea. He reports poor appetite recently, reported some vomiting. His chest pain is on the left side of his anterior chest, occasionally spreads across his precordium. Patient also reports generalized pain, in his fingers, chest, he has history of Raynaud's syndrome, and history of chronic pain. He is not oxygen dependent and his baseline, the nebulizer machine at home, not on any other inhalers, he has never seen a veterinary milk specialist in the past. He recently quit smoking 2 months ago, carries [id number] smoking history. EKG showed normal sinus rhythm with evidence of septal infarct of undetermined age. Chest x-ray showed no acute cardiopulmonary process. Labs showed WBC of 15.1 , hemoglobin is 16.3, sodium is 131, potassium is 4.0, chloride is 97, CO2 was 16, BUN is 57, creatinine is 3.02. Patient had elevated troponins, 0.042, 0.042 and 0.0-9. He was seen and evaluated by cardiology. ProBNP was 1020. Urinalysis was negative, ultrasound did not show any hydronephrosis. [place] [facility] [place] to rehab facility after hospitalization, where he signed himself out about a week ago. He is currently on dual Platelet therapy, with aspirin and Plavix, heparin infusion at 12 units per kilo per hour. His COPD seems to be fairly stable at this time , there is no significant coughing or chest congestion or wheezing. He was started on nebulized bronchodilators, he was given a dose of IV Solu-Medrol in the emergency department. At the time of our evaluation patient is seen on the gurney, calm and comfortable, is a poor historian, and he wants to be left alone , wants to sleep. We're seeing this patient in consultation for his COPD Review of Systems All systems: negative Constitutional: Denies chills, Denies fever Eyes: denies blurred vision, denies pain Ears, nose, mouth and throat: Denies headache, Denies sore throat Cardiovascular: Reports chest pain, Denies shortness of breath Respiratory: Reports dyspnea, Denies cough Gastrointestinal: Denies abdominal pain, Denies diarrhea, Denies nausea, Denies vomiting Musculoskeletal: Denies myalgias Integumentary: Denies pruritus, Denies rash Neurological: Denies numbness, Denies weakness Psychiatric: Denies anxiety, Denies depression Endocrine: Denies fatigue, Denies weight change Past Medical History Past Medical History: Atrial Fibrillation, Coronary Artery Disease (CAD), COPD, GERD/Reflux, Hypertension, Pneumonia, Prostate Disorder Additional Past Medical History / Comment(s): Pt states he recently had PCI with stents about 6 weeks ago at [facility], generalized chronic pain, past multiple fractures including cervical fracture, severe diverticulitis with bowel resection/ileostomy and had bladder injury during surgery which required surgery then devloped an abdominal abscess which also required surgery, recent acute renal failure possibly d/t dehydration, 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 History of Any Multi-Drug Resistant Organisms: None Reported Past Surgical History: Appendectomy, Bladder Surgery, Bowel Resection, Heart Catheterization With Stent, Hernia Repair, Orthopedic Surgery Additional Past Surgical History / Comment(s): 11/2017 PCI with stent at [facility], colonoscopies, bowel resection with ileostomy, cystoscopy for bladder repair, abdominal abscess with surgical intervention, R inguinal hernia repair with mesh, R knee arthroscopy. Past Anesthesia/Blood Transfusion Reactions: No Reported Reaction Date of Last Stent Placement:: 12/06/17 Smoking Status: Current every day smoker - Past Family History Father Family Medical History: Myocardial Infarction ([place]) Additional Family Medical History / Comment(s): Father had 3 MIs, he had his first one at the age of 50 yrs. He at the age of 85 yrs. Mother Family Medical History: No Reported History Additional Family Medical History / Comment(s): Mother was healthy and lived to be 94 or 95 yrs old. Medications and Allergies Home Medications Medication Instructions Recorded Confirmed Type Albuterol Inhaler [Ventolin Hfa 2 puff INHALATION RT-Q4H PRN 01/25/18 01/25/18 History Inhaler] Albuterol Nebulized [Ventolin 2.5 mg INHALATION RT-TID PRN 01/25/18 01/25/18 History Nebulized] Aspirin EC [Ecotrin Low Dose] 81 mg PO DAILY 01/25/18 01/25/18 History Budesonide [Pulmicort] 0.5 mg INHALATION RT-BID 01/25/18 01/25/18 History Clopidogrel Bisulfate [Plavix] 75 mg PO DAILY 01/25/18 01/25/18 History Folic Acid 1 mg PO DAILY 01/25/18 01/25/18 History Pantoprazole [Protonix] 40 mg PO DAILY 01/25/18 01/25/18 History Tamsulosin HCl [Flomax] 0.4 mg PO DAILY 01/25/18 01/25/18 History Allergies Allergy/AdvReac Type Severity Reaction Status Date / Time No Known Allergies Allergy Verified 01/25/18 15:23 Physical Exam Vitals: Vital Signs Temp Pulse Pulse Resp BP BP Pulse Ox 01/26/18 12:18 76 01/26/18 12:07 75 01/26/18 11:38 97.7 F 81 18 115/43 94 L 01/26/18 08:00 97.6 F 65 18 121/64 95 01/26/18 07:59 78 01/26/18 07:50 68 01/26/18 06:00 68 14 106/64 100 01/26/18 05:00 66 22 114/66 100 01/26/18 04:00 67 21 95/61 100 01/26/18 03:49 97.1 F L 70 15 95/61 100 01/25/18 22:35 71 24 103/85 01/25/18 22:30 80 35 H 113/73 01/25/18 22:07 88 01/25/18 22:00 79 16 112/74 01/25/18 21:56 90 01/25/18 21:30 82 15 105/63 01/25/18 21:00 86 19 120/61 01/25/18 20:30 76 16 96/72 01/25/18 20:00 77 17 135/83 01/25/18 19:00 90 16 112/76 01/25/18 18:30 80 15 104/69 01/25/18 18:00 84 17 110/84 01/25/18 17:30 88 16 113/80 01/25/18 17:00 37 H 01/25/18 15:53 86 01/25/18 15:43 90 GENERAL EXAM: 62-year-old thin white male, resting on the gurney, sleeping, but easily arousable to verbal stimuli, he is not willing to participate in the interview, he wants to be left alone he wants to sleep, but he is comfortable in no apparent distress. HEAD: Normocephalic/atraumatic. EYES: Normal reaction of pupils, equal size. Conjunctiva pink, sclera white. NOSE: Clear with pink turbinates. THROAT: No erythema or exudates. NECK: No masses, no JVD, no thyroid enlargement, no adenopathy. CHEST: No chest wall deformity. Symmetrical expansion. LUNGS: Diminished breath sounds bilaterally, wheezing, no rhonchi, no rales CVS: Regular rate and rhythm, normal S1 and S2, no gallops, no murmurs, no rubs ABDOMEN: Soft, nontender. No hepatosplenomegaly, normal bowel sounds, no guarding or rigidity. EXTREMITIES: No clubbing, no edema, no cyanosis, 2+ pulses and upper and lower extremities. MUSCULOSKELETAL: Muscle strength and tone normal. SPINE: No scoliosis or deformity SKIN: No rashes CENTRAL NERVOUS SYSTEM: Alert and oriented -3. No focal deficits, tone is normal in all 4 extremities. PSYCHIATRIC: Alert and oriented -3. Appropriate affect. Intact judgment and insight. Results - Laboratory Findings CBC and BMP: 01/25/18 15:00 01/26/18 03:11 PT/INR, D-dimer PT 11.1 sec (9.0-12.0) 01/25/18 15:00 INR 1.2 (<1.2) H 01/25/18 15:00 Abnormal lab findings: Abnormal Labs 01/25/18 01/25/18 01/25/18 15:00 15:00 15:00 WBC 15.1 H MCV 106.8 H MCH 35.7 H Neutrophils # 11.9 H Monocytes # 1.2 H INR APTT Sodium 131 L Chloride 97 L Carbon Dioxide 16 L BUN 57 H Creatinine 3.02 H Glucose 142 H ALT 17 L Total Creatine Kinase 23 L CK-MB (CK-2) 4.1 H Troponin I 0.042 H* Total Protein Albumin LDL Cholesterol, Calc Urine Protein 01/25/18 01/25/18 01/26/18 15:00 20:59 03:11 WBC MCV MCH Neutrophils # Monocytes # INR 1.2 H APTT Sodium Chloride Carbon Dioxide BUN Creatinine Glucose ALT Total Creatine Kinase 27 L <20 L CK-MB (CK-2) 3.9 H 3.4 H Troponin I 0.042 H* Total Protein Albumin LDL Cholesterol, Calc Urine Protein 01/26/18 01/26/18 01/26/18 03:11 03:11 03:53 WBC MCV MCH Neutrophils # Monocytes # INR APTT 48.2 H Sodium 130 L Chloride Carbon Dioxide 15 L BUN 54 H Creatinine 2.60 H Glucose 161 H ALT 14 L Total Creatine Kinase CK-MB (CK-2) Troponin I Total Protein 6.1 L Albumin 3.2 L LDL Cholesterol, Calc 105 H Urine Protein 01/26/18 06:12 WBC MCV MCH Neutrophils # Monocytes # INR APTT Sodium Chloride Carbon Dioxide BUN Creatinine Glucose ALT Total Creatine Kinase CK-MB (CK-2) Troponin I Total Protein Albumin LDL Cholesterol, Calc Urine Protein Trace H - Diagnostic Findings Chest x-ray: report reviewed, image reviewed Additional studies: EKG, renal ultrasound results reviewed Assessment and Plan Plan: Assessment: #1. Chest pain, troponin elevation, exertional dyspnea, rule out ACS, cardiology is following #2. Coronary artery disease with [place] [facility] [place] #3. COPD, not oxygen dependent a baseline, currently stable #4. Nicotine dependence, in remission, patient carries [id number] smoking history, quit 2 months ago #5. Acute kidney injury likely secondary to dehydration #6. Chronic kidney disease, and baseline kidney function is unknown #7. Hyponatremia, likely hypovolemic #8. Anion gap metabolic acidosis, improving with IV fluids #9. Paroxysmal atrial fibrillation, in sinus rhythm, not on any chronic anticoagulation #10. BPH, on Flomax Plan: Patient COPD seems to be stable at this time, no wheezing, no cough, no chest congestion. Continue with nebulized bronchodilators, no need for additional steroids. Patient has diffuse pain, in his fingertips, left-sided chest discomfort, he is undergoing evaluation by cardiology. Patient has had no further nausea or vomiting. Receiving gentle IV hydration, profile is improving. No fever or chills. I performed a history & physical examination of the patient and discussed their management with my nurse practitioner, Carolee Robison. I reviewed the nurse practitioner's note and agree with the documented findings and plan of care. Lung sounds are positive for diminished breath sounds. The findings and the impression was discussed with the patient. I attest to the documentation by the nurse practitioner. Time with Patient: Greater than 30
[2018-01-27] MEDS: HEPARIN SOD,PORK IN 0.45% NACL 25,000 UNIT in 0.45% NACL 1 500ML.BAG IV SCH (00:48)
[2018-01-27] MEDS: ATORVASTATIN 80 MG TAB PO SCH ×2 (04:51→22:35)
[2018-01-27] MEDS: SODIUM CHLORIDE 0.9% 1,000 ML IV SCH ×3 (04:52→11:35)
[2018-01-27] MEDS: METOPROLOL TARTRATE 25 MG TAB PO SCH ×3 (04:52→22:35)
[2018-01-27] MEDS: PANTOPRAZOLE 40 MG TABLET PO SCH (08:32)
[2018-01-27] MEDS: ASPIRIN 81 MG PO SCH (08:32)
[2018-01-27] MEDS: TAMSULOSIN 0.4 MG CAP.ER.24H PO SCH (08:32)
[2018-01-27] MEDS: CLOPIDOGREL 75 MG TAB PO SCH (08:33)
[2018-01-27] MEDS: IPRATROPIUM-ALBUTEROL 3 ML NEB INHALATION SCH ×4 (08:43→21:19)
[2018-01-27] MEDS: FOLIC ACID 1 MG TAB PO SCH (11:34)
--- NOTE | 2018-01-27 12:34 | P.PN ---
Subjective Progress Note Date: 01/27/18 Principal diagnosis: Chest pain, exertional dyspnea, nausea, vomiting, weakness This is 62-year-old white male patient past medical history of COPD, coronary artery disease with recent stenting, atrial fibrillation, hypertension, continue dependence, depression, is on to the emergency department on 2017 for evaluation of chest pain, shortness of breath, subjective chills, nausea. He reports poor appetite recently, reported some vomiting. His chest pain is on the left side of his anterior chest, occasionally spreads across his precordium. Patient also reports generalized pain, in his fingers, chest, he has history of Raynaud's syndrome, and history of chronic pain. He is not oxygen dependent and his baseline, the nebulizer machine at home, not on any other inhalers, he has never seen a land acquisition specialist in the past. He recently quit smoking 2 months ago, carries [id number] smoking history. EKG showed normal sinus rhythm with evidence of septal infarct of undetermined age. Chest x-ray showed no acute cardiopulmonary process. Labs showed WBC of 15.1 , hemoglobin is 16.3, sodium is 131, potassium is 4.0, chloride is 97, CO2 was 16, BUN is 57, creatinine is 3.02. Patient had elevated troponins, 0.042, 0.042 and 0.0-9. He was seen and evaluated by cardiology. ProBNP was 1020. Urinalysis was negative, ultrasound did not show any hydronephrosis. Patient had recent cardiac stenting at [facility], he was sent to rehab facility after hospitalization, where he signed himself out about a week ago. He is currently on dual Platelet therapy, with aspirin and Plavix, heparin infusion at 12 units per kilo per hour. His COPD seems to be fairly stable at this time , there is no significant coughing or chest congestion or wheezing. He was started on nebulized bronchodilators, he was given a dose of IV Solu-Medrol in the emergency department. At the time of our evaluation patient is seen on the gurney, calm and comfortable, is a poor historian, and he wants to be left alone , wants to sleep. We're seeing this patient in consultation for his COPD On 01/27/2018 patient seen in follow-up on selective care unit, he is resting comfortably in bed, more awake, and conversant, operative with interview, no fever or chills, pulse ox on 3 L per nasal cannula was 98%. Denies any chest pain. No cough, no chest congestion, or hemoptysis. Lung sounds are diminished , no rhonchi or wheezes noted. No new labs. Chest x-ray was reviewed, and showed no evidence of pneumonia or acute pulmonary process. Patient's COPD stable, cardiology is following. From pulmonary standpoint he stable, could be discharged home or rehab once cleared by cardiology. Objective - Vital Signs Vital signs: Vital Signs Temp 97.8 F 01/27/18 11:48 Pulse 84 01/27/18 12:09 Resp 18 01/27/18 11:48 BP 82/49 01/27/18 11:48 Pulse Ox 98 01/27/18 11:48 Intake & Output 01/26/18 01/27/18 01/27/18 18:59 06:59 18:59 Intake Total 285 480 Output Total 600 250 Balance -315 230 Intake: Intake, IV Titration 45 Amount Heparin Sod,Pork in 0.45% 45 NaCl 25,000 unit In 0.45 % NaCl 1 500ml.bag @ 12 UNITS/KG/HR 14.91 mls/hr IV .Q24H MARTI Rx#: [id number] Oral 240 480 Output: Urine 600 250 Other: # Voids 1 # Bowel Movements 1 0 - Exam #1. Chest pain, troponin elevation, exertional dyspnea, rule out ACS, cardiology is following #2. Coronary artery disease with recent stenting at [facility] #3. COPD, not oxygen dependent a baseline, currently stable #4. Nicotine dependence, in remission, patient carries 45-[id number] smoking history, quit 2 months ago #5. Acute kidney injury likely secondary to dehydration #6. Chronic kidney disease, and baseline kidney function is unknown #7. Hyponatremia, likely hypovolemic #8. Anion gap metabolic acidosis, improving with IV fluids #9. Paroxysmal atrial fibrillation, in sinus rhythm, not on any chronic anticoagulation #10. BPH, on Flomax Plan: Patient remains stable from pulmonary perspective, his COPD stable, no cough, no wheezing, no chest congestion. Continue with nebulized bronchodilators. Cardiology is completing their workup. We will do influenza screen in view of multiple constitutional symptoms on presentation. Patient is afebrile, vital signs are stable, no fever or chills. From pulmonary perspective patient is stable, could be considered for discharge once cleared by cardiology and attending physician. I performed a history & physical examination of the patient and discussed their management with my nurse practitioner, Carolee Robison. I reviewed the nurse practitioner's note and agree with the documented findings and plan of care. Lung sounds are diminished. The findings and the impression was discussed with the patient. I attest to the documentation by the nurse practitioner. - Labs CBC & Chem 7: 01/25/18 15:00 01/26/18 03:11 Labs: Abnormal Lab Results - Last 24 Hours (Table) 01/26/18 01/27/18 Range/Units 22:13 06:22 APTT 56.3 H 69.6 H (22.0-30.0) sec Microbiology - Last 24 Hours (Table) 01/25/18 22:31 Blood Culture - Preliminary Blood No Growth after 24 hours 01/25/18 15:00 Blood Culture - Preliminary Blood No Growth after 24 hours
--- NOTE | 2018-01-27 14:05 | P.PN ---
Subjective Progress Note Date: 01/27/18 The patient is a 62 yo M with a PMH of CAD s/p PCI w/ stent placement in 11/2017 @ [facility], severe diverticulitis requiring ileostomy (2004), who presented to the ED w/ c/o gradually worsening exertional dyspnea. The patient was recently hospitalized at [facility] where he was treated for ARF. He notes that he has been experiencing gradually worsening SOB though denied chest pain, cough, fever, chills, or diaphoresis. He also endorsed intermittent abdominal pain w/ nausea, vomiting and anorexia. In the ED, the patient was noted to have Troponin 0.042, Creatinine 3.02, WBC 15.1, and Sodium 131. He was admitted to the medicine service for evaluation of chest pain and SOB w/ suspected unstable angina and HUGH. Cardiology was consulted and initial recommendations were appreciated. He was continued on heparin infusion while records from other facilities were requested for patient's stent placement and Echocardiogram. Pulmonary was also consulted and recs appreciated. The patient was seen and examined at the bedside on 01/27/18. He denied any episodes of chest pain or SOB though endorsed mild abdominal discomfort and meghana hand pain on-going for several months. He denied fever, chills, nausea, vomiting , dizziness, visual disturbances, or headaches. Objective - Vital Signs Vital signs: Vital Signs Temp 97.8 F 01/27/18 11:48 Pulse 84 01/27/18 12:09 Resp 18 01/27/18 11:48 BP 82/49 01/27/18 11:48 Pulse Ox 98 01/27/18 11:48 Intake & Output 01/26/18 01/27/18 01/27/18 18:59 06:59 18:59 Intake Total 285 480 Output Total 600 250 Balance -315 230 Weight 62.142 kg Intake: Intake, IV Titration 45 Amount Heparin Sod,Pork in 0.45% 45 NaCl 25,000 unit In 0.45 % NaCl 1 500ml.bag @ 12 UNITS/KG/HR 14.91 mls/hr IV .Q24H MARTI Rx#: [id number] Oral 240 480 Output: Urine 600 250 Other: # Voids 1 # Bowel Movements 1 0 - Exam General: Non-toxic, in no acute distress, appears older than age HEENT: NC/AT, anicteric sclerae, moist conjunctiva, no lid-lag, PERRLA Cardiovascular: S1/S2 wnl, no murmurs, rubs, or gallops Lungs: Clear to auscultation, normal respiratory effort, no accessory muscle use Abdominal: Soft, nontender, non-distended, no guarding, rebound, or rigidity, L colostomy bag intact w/ brown stool, surrounding skin normal Skin: Warm, dry Extremities: No edema or contractures Psychiatric: Alert and oriented to person, place and time, appropriate affect, Intact judgment Neuro: CN II-XII grossly intact, Strength 5/5 in all 4 extremities, Speech intact, Sensation to light touch grossly intact throughout - Labs CBC & Chem 7: 01/25/18 15:00 01/26/18 03:11 Labs: Abnormal Lab Results - Last 24 Hours (Table) 01/26/18 01/27/18 Range/Units 22:13 06:22 APTT 56.3 H 69.6 H (22.0-30.0) sec Microbiology - Last 24 Hours (Table) 01/25/18 22:31 Blood Culture - Preliminary Blood No Growth after 24 hours 01/25/18 15:00 Blood Culture - Preliminary Blood No Growth after 24 hours Assessment and Plan Plan: Exertional dyspnea, atypical chest pain, Troponin downtrended - Cardiology and Pulmonary recs appreciated - C/w Aspirin, Plavix, Statin, BB, and IV Heparin as per cardiology recs - Awaiting records from other facilities for Echo and PCI - EKG and CXR reviewed - OT/PT consulted for debility Leukocytosis - UA unremarkable - Lactate 2.0 - No clear signs of infection - Possibly reactive Abdominal pain - Due to chronic nature, will obtain CT scan MEGHANA Hand pain - Likely neuropathic in nature - Will start Gabapentin HUGH on CKD - Renal US showing mild cortical thickening of R kidney - Possibly secondary to dehydration - Improved Hyponatremia - Possibly reactive from pain and nausea/vomiting vs due to poor oral intake - Monitor for now COPD - C/w Budesonide inhaler bid w/ Albuterol prn BPH - C/w Flomax DVT//GI prophylaxis - IV Heparin - Protonix Discussed with: Patient Anticipated discharge date: 01/28/[address]: [facility] A total of 40 minutes was spent on the care of this complex patient more than 50 % of the time was spent in counseling and care coordination.
[2018-01-27 14:33] LABS: Albumin 2.9 g/dL (3.5-5.0); Calcium 8.9 mg/dL (8.4-10.2); Total Bilirubin 0.2 mg/dL (0.2-1.3); Total Protein 5.4 g/dL (6.3-8.2)
--- NOTE | 2018-01-27 14:53 | PN ---
PROGRESS NOTE This patient is admitted with a history of COPD and atypical chest pain. Patient had a mildly elevated troponin without any significant rise and fall. Clinical history is not suggestive of acute coronary syndrome. Patient's mild rise in troponin could be a non [place] related myocardial injury secondary to chronic kidney disease. Patient is feeling well. Blood pressure is 90/60 mmHg. First and second heart sounds are normal. Lungs are clear to auscultation and percussion. Patient will be discharged home today. MMODL / IJN: [id number] /
--- NOTE | 2018-01-27 15:08 | CONS ---
CONSULTATION REASON FOR CONSULT: Renal failure. HISTORY OF PRESENT ILLNESS: Patient is a 62-year-old male who was admitted to the hospital on 01/25/2018 with complaints of weakness. Patient stated he had been to [facility] twice with dehydration and acute kidney injury. He stated he was feeling weak and short of breath and therefore came in to the emergency room. He denied any fever. Patient has an ileostomy and he said he has had fair amount of output from the ostomy. Patient's troponins was mildly elevated at 0.042. Serum creatinine was 3.0 mg/dL on admission. It is now down to 2.04. Patient is maintained on IV fluids. He did admit to occasional use of nonsteroidal anti-inflammatory agents prior to admission. Patient's blood pressure has been low with systolic around 101-105 mm of Hg. He denied any chest pain. He states he has been voiding. PAST MEDICAL HISTORY: Significant for atrial fibrillation, COPD, hypertension, diverticulitis, status post colectomy and ileostomy, coronary artery disease with history of cardiac catheterization and coronary stent placement, history of depression. SOCIAL HISTORY: Positive for smoking. Patient consumes alcohol daily. No history of other drug abuse. MEDICATIONS: Prior to admission included aspirin, Plavix, folic acid, Protonix, Flomax. ALLERGIES: None. REVIEW OF SYSTEMS: As per HPI. Other systems negative. PHYSICAL EXAMINATION: Patient is comfortable, awake, alert, oriented x3. He is not in any acute distress. Blood pressure this morning was 101/52; however, currently it appears that his pressure was 82/49. Heart rate is 80 per minute. Patient is afebrile. Examination of the heart, S1, S2. Examination of the lungs, bilateral breath sounds are heard. Abdomen is soft, nontender. Ileostomy is in place. Examination of the lower extremities shows no evidence of edema. DIRECTORY OPERATOR exam is grossly intact. LABS: Show sodium 131, potassium 4.0, CO2 is 18, BUN 43, serum creatinine 2.0. UA is benign with trace protein. Ultrasound of the kidneys was done on admission, which showed right kidney 9 cm, left kidney 10.3 cm. ASSESSMENT: 1. Acute kidney injury, prerenal, currently improving with IV hydration. UA is fairly benign. Patient is maintained on IV fluids which we can continue. He does have a history of BPH and is maintained on Flomax. Patient has had good urine output. 2. Rule out chronic kidney disease, previous creatinine not available for comparison. Patient has had previous episodes of acute kidney injury. 3. A borderline elevated troponin with history of coronary artery disease and previous coronary artery stenting. 4. Hyponatremia, mainly hypovolemic, slightly improved. Maintained on normal saline, which we will continue. 5. Paroxysmal atrial fibrillation, now in sinus rhythm. 6. Chronic obstructive pulmonary disease. 7. History of diverticulitis, status post colectomy and ileostomy. 8. Metabolic acidosis secondary to renal failure, currently improved. Start patient on oral sodium bicarb. PLAN: Continue IV fluids. Repeat labs in a.m. If blood pressure remains low, patient will be given a fluid bolus. Thank you for this consultation. Will continue to follow the patient with you during his hospitalization. MMODL / IJN: [id number] /
[2018-01-27] MEDS: GABAPENTIN 100 MG CAP PO SCH ×2 (15:18→22:35)
[2018-01-27 15:28] LABS: Basophils % (A) 0 %; Eosinophils % (A) 0 %; HCT 35.6 % (39.0-53.0); Lymphocytes # (A) 0.7 k/uL (1.0-4.8); Lymphocytes % (A) 7 %; MCH 35.8 pg (25.0-35.0); MCHC 31.9 g/dL (31.0-37.0); Macrocytosis Marked; Mean Platelet Volume 9.3; Monocytes # (A) 0.9 k/uL (0-1.0); Monocytes % (A) 10 %; Neutrophils # (A) 8.2 k/uL (1.3-7.7); Neutrophils % (A) 83 %; Platelet Count 203 k/uL (150-450); RBC 3.17 m/uL (4.30-5.90); WBC 9.9 k/uL (3.8-10.6)
[2018-01-27 15:43] LABS: HGB 11.4 gm/dL (13.0-17.5); MCV 112.2 fL (80.0-100.0)
[2018-01-27 16:42] LABS: Large Platelets Present; Polychromasia Present
--- NOTE | 2018-01-27 17:10 | CT ---
EXAMINATION TYPE: CT abdomen pelvis wo con DATE OF EXAM: 01/27/2018 COMPARISON: None HISTORY: Vomiting x weeks. CT DLP: 352.3 mGycm Automated exposure control for dose reduction was used. TECHNIQUE: Helical acquisition of images was performed from the lung bases through the pelvis. FINDINGS: Lung bases are clear. There is no pleural effusion. Stomach is relatively large and also there is lar ge first and second part of the duodenum. There is narrowing of the duodenum in the third part.. Ther e is no pericardial effusion. Liver shows no focal defect. Bile ducts are not dilated. Gallbladder is slightly contracted. The sple en appears normal. There is no evidence of a pancreatic mass. There is no adrenal mass. Kidneys have normal size and contour. There is no hydronephrosis. There is right renal vascular calcification. Abdominal aorta is atheromatous. There is no retroperitoneal nadia opathy. Bladder distends smoothly. There is prostatic calcification. There is no free fluid in the pelvis. Th ere is no inguinal hernia. Abdominal aorta is atheromatous. I see no intestinal wall thickening. There is no evidence of a bowel obstruction. Appendix is not def initely seen. There is no sign of appendicitis. There is loop ileostomy in the left mid abdomen. The lumbar spine is intact. I see no bony destructive process. There is no compression fracture. Ther e are spondylotic changes. I see no mesenteric edema. IMPRESSION: LARGE STOMACH AND PROXIMAL DUODENUM. THERE IS PROBABLY SOME DEGREE OF MOTILITY DISORDER. I DO NOT SEE AN OBSTRUCTING MASS. THE LUMEN OF THE DUODENUM IS NARROWED AT THE SUPERIOR MESENTERIC ARTERY AND IT IS DEBATABLE IF THIS I S A FACTOR IN THE APPEARANCE OF THE DUODENUM. ATHEROSCLEROTIC VASCULAR DISEASE.
[2018-01-27] MEDS: BUDESONIDE 0.5 MG/2 ML NEBU INHALATION SCH (21:19)
[2018-01-27] MEDS: SODIUM BICARBONATE TAB 650 MG TAB PO SCH (22:35)
[2018-01-28] MEDS: IPRATROPIUM-ALBUTEROL 3 ML NEB INHALATION SCH ×4 (07:41→20:21)
[2018-01-28] MEDS: BUDESONIDE 0.5 MG/2 ML NEBU INHALATION SCH ×2 (07:41→20:21)
[2018-01-28] MEDS: TAMSULOSIN 0.4 MG CAP.ER.24H PO SCH (08:48)
[2018-01-28] MEDS: CLOPIDOGREL 75 MG TAB PO SCH (08:48)
[2018-01-28] MEDS: SODIUM BICARBONATE TAB 650 MG TAB PO SCH ×2 (08:48→22:55)
[2018-01-28] MEDS: FOLIC ACID 1 MG TAB PO SCH (08:48)
[2018-01-28] MEDS: GABAPENTIN 100 MG CAP PO SCH ×3 (08:48→22:55)
[2018-01-28] MEDS: ASPIRIN 81 MG PO SCH (08:48)
[2018-01-28] MEDS: SODIUM CHLORIDE 0.9% 1,000 ML IV SCH ×2 (08:50→16:37)
[2018-01-28] MEDS: METOPROLOL TARTRATE 25 MG TAB PO SCH (08:50)
[2018-01-28] MEDS: PANTOPRAZOLE 40 MG TABLET PO SCH (08:59)
[2018-01-28] MEDS ORDERED: METOPROLOL TARTRATE 12.5 MG TAB PO SCH (09:00)
--- NOTE | 2018-01-28 09:20 | P.PN ---
Subjective Progress Note Date: 01/28/18 Principal diagnosis: chest pain Patient is a 62-year-old male for history of coronary artery disease with recent stent placement at the end of November, severe diverticulitis requiring ileostomy in 2014, COPD, hypertension, and A. fib who presented to the ER with complaints of shortness of breath with exertion and chest pain. In the ER he underwent an extensive evaluation. His chest x-ray done which showed no acute process, he was noted to have a leukocytosis and elevated creatinine of 3.1. His bicarb was slightly low at 15 and troponin was positive at 0.42. EKG showed septal Q waves but no acute ischemia. He is admitted for unstable angina and started on aspirin, Plavix, and IV heparin. Cardiology was consulted and felt a troponin was secondary to renal dysfunction. Pulmonary was consulted and felt that his COPD is at baseline. He was complaining of abdominal pain and a CT abdomen and pelvis was ordered. CT demonstrates an enlarged stomach and first and second portions of the duodenum with narrowing of the third portion of the duodenum. Patient seen and examined at bedside. Complains of abdominal pain and left- sided in nature. No chest pain, shortness of breath, nausea, vomiting, or increased/decreased ostomy output. No other complaints currently. Upset and yelling about always being discharged from the hospital too soon. Never getting all the work he wants and not liking rehab in [place]. States that he has been in and out of the hospital for the last 4 years. We discussed that the hospital is for emergent testing and procedures and that often once the patient is stabilized the remained of the work-up is completed as an outpatient. He was not satisfied with this explanation. Objective - Vital Signs Vital signs: Vital Signs Temp 97.7 F 01/28/18 04:00 Pulse 81 01/28/18 04:00 Resp 18 01/28/18 04:00 BP 125/98 01/28/18 04:00 Pulse Ox 99 01/28/18 04:00 Intake & Output 01/27/18 01/28/18 01/28/18 18:59 06:59 18:59 Intake Total 1440 Output Total 250 750 Balance 1190 -750 Weight 62.142 kg 64.4 kg Intake: Oral 1440 Output: Urine 250 750 Other: Voiding Method Toilet Urinal # Voids 1 1 # Bowel Movements 0 - Exam General: non toxic, no distress, appears at stated age Derm: warm, dry Head: atraumatic, normocephalic, symmetric Eyes: EOMI, no lid lag, anicteric sclera Mouth: no lip lesion, mucus membranes moist Cardiovascular: S1S2 reg, no murmur, positive posterior tibial pulse bilateral, Lungs: decreased breath sounds bilateral, no rhonchi, no rales , no accessory muscle use Abdominal: soft, + tender to palpation right lower qudrant, no guarding, no appreciable organomegaly Ext: + gross muscle atrophy, no edema, no contractures Neuro: CN II-XI grossly intact, no focal neuro deficits Psych: Alert, oriented, appropriate affect - Labs CBC & Chem 7: 01/27/18 06:22 01/27/18 06:22 Labs: Abnormal Lab Results - Last 24 Hours (Table) 01/27/18 01/27/18 Range/Units 06:22 06:22 RBC 3.17 L (4.30-5.90) m/uL Hgb 11.4 L D (13.0-17.5) gm/dL Hct 35.6 L (39.0-53.0) % MCV 112.2 H D (80.0-100.0) fL MCH 35.8 H (25.0-35.0) pg Neutrophils # 8.2 H (1.3-7.7) k/uL Lymphocytes # 0.7 L (1.0-4.8) k/uL Sodium 131 L (137-145) mmol/L Carbon Dioxide 18 L (22-30) mmol/L BUN 43 H (9-20) mg/dL Creatinine 2.04 H (0.66-1.25) mg/dL Glucose 101 H (74-99) mg/dL AST 16 L (17-59) U/L Total Protein 5.4 L (6.3-8.2) g/dL Albumin 2.9 L (3.5-5.0) g/dL Microbiology - Last 24 Hours (Table) 01/25/18 22:31 Blood Culture - Preliminary Blood No Growth after 48 hours 01/25/18 15:00 Blood Culture - Preliminary Blood No Growth after 48 hours Assessment and Plan Assessment: Abdominal pain -CT was signs of delayed gastric emptying and narrowing of the duodenum -Consult GI for further recommendations -If GI is agreement trial of Reglan therapy -Continue with regular diet Episode of hypotension overnight -Decreased metoprolol to 12.5 twice a day Anemia -Likely dilutional from IV fluids -Repeat hemoglobin today -Signs of macrocytosis will check B12, folic acid, and TSH Acute kidney injury with unknown baseline creatinine, associated with a anion gap metabolic acidosis -Continue with normal saline -Continue with Flomax -Signs of cortical thickening on renal ultrasound -Nephrology recommendations appreciated -Avoid additional nephrotoxic agents -Continue with oral sodium bicarb Atypical chest pain with elevated troponin -Elevated troponin secondary to renal dysfunction and not indicative of an acute coronary ischemia -Cardiology recommendations appreciated, IV heparin stopped -Continue with aspirin, Plavix, and statin Bilateral hand pain -Gabapentin started on 01/27 Generalized weakness -PT/OT -Plan for subacute rehab and discharge COPD without exacerbation -Continue current bronchodilator regimen -Pulmonary recommendations appreciated Paroxysmal atrial fibrillation -Cardiology recommendations -Not on chronic anticoagulation but does take aspirin and Plavix BPH - flomax Hyponatremia, mild -May be hypovolemic -Repeat lytes in a.m. -Continue gentle fluid hydration DVT prophylaxis: SCDs Discussed with: Patient, nursing at bedside. Anticipated discharge: 24-[address]: SNF A total of 45 minutes was spent on the care of this complex patient more than 50 % of the time was spent in counseling and care coordination.
[2018-01-28 09:29] LABS: Albumin 2.8 g/dL (3.5-5.0); Calcium 8.8 mg/dL (8.4-10.2); Potassium 4.6 mmol/L (3.5-5.1); Total Bilirubin 0.1 mg/dL (0.2-1.3); Total Protein 5.3 g/dL (6.3-8.2)
[2018-01-28 09:36] LABS: Basophils % (A) 0 %; Eosinophils # (A) 0.1 k/uL (0-0.7); Eosinophils % (A) 1 %; HCT 34.5 % (39.0-53.0); HGB 11.3 gm/dL (13.0-17.5); Lymphocytes # (A) 1.1 k/uL (1.0-4.8); Lymphocytes % (A) 19 %; MCH 35.9 pg (25.0-35.0); MCHC 32.7 g/dL (31.0-37.0); MCV 109.9 fL (80.0-100.0); Macrocytosis Marked; Mean Platelet Volume 7.8; Monocytes # (A) 0.6 k/uL (0-1.0); Monocytes % (A) 11 %; Neutrophils # (A) 3.7 k/uL (1.3-7.7); Neutrophils % (A) 67 %; Platelet Count 219 k/uL (150-450); RBC 3.14 m/uL (4.30-5.90); RDW 12.9 % (11.5-15.5); WBC 5.6 k/uL (3.8-10.6)
--- NOTE | 2018-01-28 10:06 | PN ---
PROGRESS NOTE Patient is seen for followup for acute kidney injury which appears to be mainly prerenal. Patient is maintained on IV fluids. His renal function had improved with creatinine down to 2.0 as of yesterday. We do not have labs back yet from today. EXAMINATION: This morning blood pressure was 125/98, heart rate 81 per minute, patient is afebrile. Examination of the heart: S1, S2. Examination of the lungs: Bilateral breath sounds are heard. Abdomen is mildly tender, mainly in the upper abdomen. Examination lower extremities shows no evidence of edema. ROOM INSPECTOR exam is grossly intact. LABS SHOW: Sodium 131, potassium 4.0, CO2 is 18, BUN 43, serum creatinine 2.04, hemoglobin 11.4 g/dL. ASSESSMENT: 1. Acute kidney injury, mainly prerenal, currently improved with IV hydration. 2. 3. Labs are pending from today. Continue with IV fluids. Blood pressure had been low as well. The patient is maintained on IV fluids. He is not on any significant antihypertensive agents except Lopressor which is at 25 b.i.d. We can decrease the dose to 12.5 mg twice a day given the low blood pressure. 4. Hyponatremia, mainly hypovolemic, maintained on saline, currently improving. 5. Paroxysmal atrial fibrillation, now in sinus rhythm. 6. History of diverticulitis, status post colectomy and ileostomy. 7. Metabolic acidosis. Maintained on oral sodium bicarb. 8. Rule out chronic kidney disease. PLAN: Check labs today. Continue IV fluids. Decrease Lopressor to 12.5 mg twice a day. Repeat labs in a.m.. MMODL / IJN: [id number] /
[2018-01-28] MEDS ORDERED: METOPROLOL TARTRATE 25 MG TAB PO SCH (21:00)
[2018-01-28] MEDS: METOPROLOL TARTRATE 12.5 MG TAB PO SCH (22:55)
[2018-01-28] MEDS: ATORVASTATIN 80 MG TAB PO SCH ×2 (22:55→22:58)
[2018-01-28] MEDS: HYDROcodone/APAP 5-325MG 1 EACH TAB PO PRN (22:55)
[2018-01-29] MEDS: SODIUM CHLORIDE 0.9% 1,000 ML IV SCH (06:21)
[2018-01-29] MEDS: GABAPENTIN 100 MG CAP PO SCH ×3 (07:32→23:50)
[2018-01-29] MEDS: SODIUM BICARBONATE TAB 650 MG TAB PO SCH ×2 (07:32→23:51)
[2018-01-29] MEDS: PANTOPRAZOLE 40 MG TABLET PO SCH (07:32)
[2018-01-29] MEDS: CLOPIDOGREL 75 MG TAB PO SCH (07:32)
[2018-01-29] MEDS: TAMSULOSIN 0.4 MG CAP.ER.24H PO SCH (07:32)
[2018-01-29] MEDS: METOPROLOL TARTRATE 12.5 MG TAB PO SCH ×2 (07:32→23:51)
[2018-01-29] MEDS: ASPIRIN 81 MG PO SCH (07:33)
[2018-01-29] MEDS: HYDROcodone/APAP 5-325MG 1 EACH TAB PO PRN ×3 (07:33→23:49)
[2018-01-29 08:00] LABS: Basophils % (A) 0 %; Eosinophils # (A) 0.2 k/uL (0-0.7); Eosinophils % (A) 3 %; HCT 34.2 % (39.0-53.0); HGB 10.9 gm/dL (13.0-17.5); Lymphocytes # (A) 1.4 k/uL (1.0-4.8); Lymphocytes % (A) 24 %; MCH 36.1 pg (25.0-35.0); MCHC 31.7 g/dL (31.0-37.0); MCV 113.8 fL (80.0-100.0); Macrocytosis Marked; Mean Platelet Volume 7.5; Monocytes # (A) 0.7 k/uL (0-1.0); Monocytes % (A) 12 %; Neutrophils # (A) 3.6 k/uL (1.3-7.7); Neutrophils % (A) 59 %; Platelet Count 193 k/uL (150-450); RBC 3.01 m/uL (4.30-5.90); RDW 13.2 % (11.5-15.5); WBC 6.1 k/uL (3.8-10.6)
[2018-01-29] MEDS: BUDESONIDE 0.5 MG/2 ML NEBU INHALATION SCH ×2 (08:00→19:42)
[2018-01-29] MEDS: IPRATROPIUM-ALBUTEROL 3 ML NEB INHALATION SCH ×4 (08:00→19:42)
[2018-01-29 08:06] LABS: Albumin 2.5 g/dL (3.5-5.0); Calcium 8.4 mg/dL (8.4-10.2); Potassium 4.7 mmol/L (3.5-5.1); Total Bilirubin 0.2 mg/dL (0.2-1.3); Total Protein 4.9 g/dL (6.3-8.2)
[2018-01-29 10:06] VITALS: BMI 18.2
--- NOTE | 2018-01-29 11:27 | P.CONS ---
History of Present Illness - Reason for Consult Consult date: 01/28/[address] of the abdomen and suspected delayed gastric emptying - History of Present Illness The patient is a 62-year-old male with history of coronary artery disease and recent stent placement last November, severe diverticulitis requiring ileostomy in 2014, COPD, hypertension, and A. fib and Raynaud's phenomena, presented to the ER with complaints of shortness of breath with exertion and chest pain. His chest x-ray showed no acute process, he was noted to have a leukocytosis and elevated creatinine of 3.1. His bicarb was slightly low at 15 and troponin was positive at 0.42. EKG showed septal Q waves but no acute ischemia. He was admitted for unstable angina and started on aspirin, Plavix, and IV heparin. Cardiology was consulted and felt a troponin was secondary to renal dysfunction. Pulmonary was consulted and felt that his COPD is at baseline. He was complaining of abdominal pain and a CT abdomen and pelvis was ordered. CT demonstrates an enlarged stomach and first and second portions of the duodenum with narrowing of the third portion of the duodenum. We are asked to see him for possible gastroparesis and for opinion regarding use of symptomatic treatment with Reglan. Review of Systems Constitutional: Denies fever, chills or unintentional weight loss Neurologic: No headaches, double vision or sensory or motor changes Cardiopulmonary: No chest pains, shortness of breath or palpitations Gastrointestinal: See present illness above Genitourinary: No hematuria, dysuria or frequency Skin: No rashes Endocrine: No polyuria or polydipsia Musculoskeletal: No joint complaints or swelling Hematologic: No bleeding tendency Psychiatric: No history of anxiety or depression Past Medical History Past Medical History: Atrial Fibrillation, COPD, Hypertension Additional Past Medical History / Comment(s): Pt states he recently had PCI with stents about 6 weeks ago at [facility], generalized chronic pain, past multiple fractures including cervical fracture, severe diverticulitis with bowel resection/ileostomy and had bladder injury during surgery which required surgery then devloped an abdominal abscess which also required surgery, recent acute renal failure possibly d/t dehydration, 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 History of Any Multi-Drug Resistant Organisms: None Reported Past Surgical History: Bowel Resection, Heart Catheterization With Stent Additional Past Surgical History / Comment(s): 11/2017 PCI with stent at [facility], colonoscopies, bowel resection with ileostomy, cystoscopy for bladder repair, abdominal abscess with surgical intervention, R inguinal hernia repair with mesh, R knee arthroscopy. Past Anesthesia/Blood Transfusion Reactions: No Reported Reaction Date of Last Stent Placement:: 12/06/17 Past Psychological History: Depression Smoking Status: Current every day smoker Past Alcohol Use History: Daily Past Drug Use History: None Reported - Past Family History Father Family Medical History: Myocardial Infarction ([place]) Additional Family Medical History / Comment(s): Father had 3 MIs, he had his first one at the age of 50 yrs. He at the age of 85 yrs. Mother Family Medical History: No Reported History Additional Family Medical History / Comment(s): Mother was healthy and lived to be 94 or 95 yrs old. Medications and Allergies Home Medications Medication Instructions Recorded Confirmed Type Albuterol Inhaler [Ventolin Hfa 2 puff INHALATION RT-Q4H PRN 01/25/18 01/25/18 History Inhaler] Albuterol Nebulized [Ventolin 2.5 mg INHALATION RT-TID PRN 01/25/18 01/25/18 History Nebulized] Aspirin EC [Ecotrin Low Dose] 81 mg PO DAILY 01/25/18 01/25/18 History Budesonide [Pulmicort] 0.5 mg INHALATION RT-BID 01/25/18 01/25/18 History Clopidogrel Bisulfate [Plavix] 75 mg PO DAILY 01/25/18 01/25/18 History Folic Acid 1 mg PO DAILY 01/25/18 01/25/18 History Pantoprazole [Protonix] 40 mg PO DAILY 01/25/18 01/25/18 History Tamsulosin HCl [Flomax] 0.4 mg PO DAILY 01/25/18 01/25/18 History Allergies Allergy/AdvReac Type Severity Reaction Status Date / Time No Known Allergies Allergy Verified 01/25/18 15:23 Physical Exam Vitals: Vital Signs Temp Pulse Pulse Resp BP Pulse Ox 01/28/18 11:55 65 18 01/28/18 11:46 74 01/28/18 11:44 69 18 91/52 96 01/28/18 11:38 76 01/28/18 08:40 97.6 F 81 18 98/54 100 01/28/18 04:00 97.7 F 81 18 125/98 99 01/28/18 00:00 98.0 F 94 18 81/50 01/27/18 21:35 80 01/27/18 21:19 84 01/27/18 20:00 96.5 F L 89 18 123/75 01/27/18 16:14 80 01/27/18 15:59 84 98 01/27/18 15:22 97.8 F 76 18 90/51 99 Intake and Output 01/27/18 01/28/18 01/28/18 22:59 06:59 14:59 Intake Total 720 Output Total 250 500 Balance 470 -500 Intake: Oral 720 Output: Urine 250 500 Other: Voiding Method Toilet Toilet Toilet Urinal Urinal Urinal # Voids 1 1 Weight 62.142 kg 64.4 kg General: Appeared stated age, very pleasant in no acute distress Head and neck: Normocephalic and atraumatic, conjunctivae pink and sclerae not icteric, mucous membranes moist and pink. No masses in the neck or clavicular shifts Lungs: Clear to auscultation with no dullness to percussion Heart: Irregular, no abnormal sounds, murmurs, gallops or friction Abdomen: Soft, no masses or organomegalies. No tenderness, bowel sounds present. Ostomy noted in the left abdomen, appears healthy Extremities: No clubbing, cyanosis or edema Neurologic: Alert and oriented 3. Cranial nerves grossly intact. No gross sensory or motor abnormalities Results CBC & Chem 7: 01/29/18 06:53 01/29/18 06:53 Labs: Abnormal Lab Results - Last 24 Hours (Table) 01/27/18 01/27/18 01/28/18 Range/Units 06:22 06:22 09:01 RBC 3.17 L 3.14 L (4.30-5.90) m/uL Hgb 11.4 L D 11.3 L (13.0-17.5) gm/dL Hct 35.6 L 34.5 L (39.0-53.0) % MCV 112.2 H D 109.9 H (80.0-100.0) fL MCH 35.8 H 35.9 H (25.0-35.0) pg Neutrophils # 8.2 H (1.3-7.7) k/uL Lymphocytes # 0.7 L (1.0-4.8) k/uL Sodium 131 L (137-145) mmol/L Chloride (98-107) mmol/L Carbon Dioxide 18 L (22-30) mmol/L BUN 43 H (9-20) mg/dL Creatinine 2.04 H (0.66-1.25) mg/dL Glucose 101 H (74-99) mg/dL Total Bilirubin (0.2-1.3) mg/dL AST 16 L (17-59) U/L ALT (21-72) U/L Total Protein 5.4 L (6.3-8.2) g/dL Albumin 2.9 L (3.5-5.0) g/dL 01/28/18 Range/Units 09:01 RBC (4.30-5.90) m/uL Hgb (13.0-17.5) gm/dL Hct (39.0-53.0) % MCV (80.0-100.0) fL MCH (25.0-35.0) pg Neutrophils # (1.3-7.7) k/uL Lymphocytes # (1.0-4.8) k/uL Sodium 136 L (137-145) mmol/L Chloride 110 H (98-107) mmol/L Carbon Dioxide 19 L (22-30) mmol/L BUN 27 H (9-20) mg/dL Creatinine 1.63 H (0.66-1.25) mg/dL Glucose (74-99) mg/dL Total Bilirubin 0.1 L (0.2-1.3) mg/dL AST 16 L (17-59) U/L ALT 18 L (21-72) U/L Total Protein 5.3 L (6.3-8.2) g/dL Albumin 2.8 L (3.5-5.0) g/dL Microbiology - Last 24 Hours (Table) 01/25/18 22:31 Blood Culture - Preliminary Blood No Growth after 48 hours 01/25/18 15:00 Blood Culture - Preliminary Blood No Growth after 48 hours Assessment and Plan Assessment: Abdominal symptoms and abnormal CT raising the possibility of delayed gastric emptying. Plan: Agree with your current management. I see no contraindication to a trial of metoclopramide. Further plans can be made based on his course and response to such treatment.
--- NOTE | 2018-01-29 12:49 | PN ---
PROGRESS NOTE The patient is seen for followup for acute kidney injury. Renal function is improving. The patient had been maintained on IV fluids. Serum creatinine is down to 1.5 from 3.0 on initial admission. The patient is being possibly discharged today. On examination, he is comfortable, awake. Blood pressure this morning was 81/50, heart rate 76 per minute. Patient is afebrile. Examination of the heart S1, S2. Examination of the lungs bilateral breath sounds are heard. Abdomen is soft, nontender. Examination of the lower extremities show no significant edema. LABS: Show sodium 136, potassium 4.7, creatinine is 1.5. ASSESSMENT: 1. Acute kidney injury, prerenal, currently significantly improved. 2. Volume depletion status post IV fluids. 3. History of benign prostatic hypertrophy, maintained on Flomax. 4. Hypotension, mainly associated with hypokalemia status post IV fluids. Blood pressure remains low. Continue to hold off on antihypertensive medications. 5. Rule out chronic kidney disease. The patient is advised to follow up as outpatient in about 1-2 weeks. Check random cortisol level as patient's blood pressure is still on the low side. PLAN: Continue to encourage increased oral intake. Avoid nonsteroidal anti-inflammatory agents. Hold off on antihypertensive medications and check random cortisol level. Patient should follow up as outpatient in about 2 weeks. MMODL / IJN: [id number] /
--- NOTE | 2018-01-29 13:08 | P.PN ---
Subjective Progress Note Date: 01/29/18 (Delayed charting seen at 1030am) Principal diagnosis: chest pain Patient is a 62-year-old male for history of coronary artery disease with recent stent placement at the end of November, severe diverticulitis requiring ileostomy in 2014, COPD, hypertension, and A. fib who presented to the ER with complaints of shortness of breath with exertion and chest pain. In the ER he underwent an extensive evaluation. His chest x-ray done which showed no acute process, he was noted to have a leukocytosis and elevated creatinine of 3.1. His bicarb was slightly low at 15 and troponin was positive at 0.42. EKG showed septal Q waves but no acute ischemia. He is admitted for unstable angina and started on aspirin, Plavix, and IV heparin. Cardiology was consulted and felt a troponin was secondary to renal dysfunction. Pulmonary was consulted and felt that his COPD is at baseline. He was complaining of abdominal pain and a CT abdomen and pelvis was ordered. CT demonstrates an enlarged stomach and first and second portions of the duodenum with narrowing of the third portion of the duodenum. GI was consulted. Patient will be given a trial of reglan. Patient seen and examined at bedside. Still with abdominal pain, no nausea, tolerating diet, complains of recurrent pain. D/W patient that CT showed possible delayed gastric emptying and will await further GI eval. Still with some dyspnea with exertion. ants to go home and not to rehab has been up and walking per patient. No chest pain. Objective - Vital Signs Vital signs: Vital Signs Temp 97.4 F L 01/29/18 04:59 Pulse 80 01/29/18 08:13 Resp 17 01/29/18 04:59 BP 81/50 01/29/18 04:59 Pulse Ox 100 01/29/18 04:59 Intake & Output 01/28/18 01/29/18 01/29/18 18:59 06:59 18:59 Intake Total 1620 1260 Balance 1620 1260 Weight 64.4 kg Intake: Intake, IV Titration 1200 900 Amount Sodium Chloride 0.9% 1, 1200 900 000 ml @ 100 mls/hr IV . Q10H MARTI Rx#:[id number] Oral 420 360 Other: Voiding Method Toilet Toilet Toilet Urinal # Voids 3 # Bowel Movements 2 - Exam General: non toxic, no distress, appears at stated age Derm: warm, dry Head: atraumatic, normocephalic, symmetric Eyes: EOMI, no lid lag, anicteric sclera Mouth: no lip lesion, mucus membranes moist Cardiovascular: S1S2 reg, no murmur, positive posterior tibial pulse bilateral, Lungs: CTA bilateral, no rhonchi, no rales , no accessory muscle use Abdominal: soft, + tender to palpation right lower qudrant, no guarding, no appreciable organomegaly Ext: + gross muscle atrophy, no edema, no contractures Neuro: CN II-XI grossly intact, no focal neuro deficits Psych: Alert, oriented, appropriate affect - Labs CBC & Chem 7: 01/29/18 06:53 01/29/18 06:53 Labs: Abnormal Lab Results - Last 24 Hours (Table) 01/29/18 01/29/18 Range/Units 06:53 06:53 RBC 3.01 L (4.30-5.90) m/uL Hgb 10.9 L (13.0-17.5) gm/dL Hct 34.2 L (39.0-53.0) % MCV 113.8 H (80.0-100.0) fL MCH 36.1 H (25.0-35.0) pg Sodium 136 L (137-145) mmol/L Chloride 114 H (98-107) mmol/L Carbon Dioxide 17 L (22-30) mmol/L Creatinine 1.50 H (0.66-1.25) mg/dL AST 14 L (17-59) U/L ALT 17 L (21-72) U/L Total Protein 4.9 L (6.3-8.2) g/dL Albumin 2.5 L (3.5-5.0) g/dL Microbiology - Last 24 Hours (Table) 01/25/18 22:31 Blood Culture - Preliminary Blood No Growth after 72 hours 01/25/18 15:00 Blood Culture - Preliminary Blood No Growth after 72 hours Assessment and Plan Assessment: Abdominal pain likely secondary to delayed gastric emptying -GI recommendations appreciated -Start Reglan therapy today -Hope to DC home in a.m. if improvement in symptoms with Reglan therapy. -Continue with regular diet Anemia -Likely dilutional from IV fluids, stop ivf -Repeat hemoglobin stable -Signs of macrocytosis await B12, folic acid -TSH normal Acute kidney injury with unknown baseline creatinine, associated with a anion gap metabolic acidosis -stop ivf -Continue with Flomax -Signs of cortical thickening on renal ultrasound -Nephrology recommendations appreciated, f/u in 2 weeks -Avoid additional nephrotoxic agents -Continue with oral sodium bicarb Atypical chest pain with elevated troponin -Elevated troponin secondary to renal dysfunction and not indicative of an acute coronary ischemia -Cardiology recommendations appreciated, IV heparin stopped -Continue with aspirin, Plavix, and statin Bilateral hand pain -Gabapentin started on 01/27 Generalized weakness -PT/OT -Plan for subacute rehab and discharge COPD without exacerbation -Continue current bronchodilator regimen -Pulmonary recommendations appreciated Paroxysmal atrial fibrillation -Cardiology recommendations -Not on chronic anticoagulation but does take aspirin and Plavix BPH - flomax Hyponatremia, improved Plan on D/C home in AM if improvement with reglan therapy DVT prophylaxis: SCDs Discussed with: Patient, nursing Anticipated discharge: [address]: home A total of 25 minutes was spent on the care of this complex patient more than 50 % of the time was spent in counseling and care coordination.
[2018-01-29] MEDS: FOLIC ACID 1 MG TAB PO SCH (17:01)
[2018-01-29] MEDS: METOCLOPRAMIDE 5 MG TAB PO SCH (17:02)
[2018-01-29] MEDS: ATORVASTATIN 80 MG TAB PO SCH ×2 (23:51→23:58)
[2018-01-30] MEDS: HYDROcodone/APAP 5-325MG 1 EACH TAB PO PRN ×3 (06:34→19:30)
[2018-01-30] MEDS: BUDESONIDE 0.5 MG/2 ML NEBU INHALATION SCH ×2 (07:14→18:56)
[2018-01-30] MEDS: IPRATROPIUM-ALBUTEROL 3 ML NEB INHALATION SCH ×4 (07:14→18:56)
[2018-01-30] MEDS: METOCLOPRAMIDE 5 MG TAB PO SCH ×3 (07:29→17:25)
[2018-01-30] MEDS: TAMSULOSIN 0.4 MG CAP.ER.24H PO SCH (07:29)
[2018-01-30] MEDS: CLOPIDOGREL 75 MG TAB PO SCH (07:30)
[2018-01-30] MEDS: METOPROLOL TARTRATE 12.5 MG TAB PO SCH ×2 (07:31→19:36)
[2018-01-30] MEDS: GABAPENTIN 100 MG CAP PO SCH ×3 (07:31→21:24)
[2018-01-30] MEDS: ASPIRIN 81 MG PO SCH (07:31)
[2018-01-30] MEDS: PANTOPRAZOLE 40 MG TABLET PO SCH (07:32)
[2018-01-30] MEDS: SODIUM BICARBONATE TAB 650 MG TAB PO SCH ×2 (07:32→19:32)
[2018-01-30 07:34] LABS: Basophils % (A) 0 %; Eosinophils # (A) 0.2 k/uL (0-0.7); Eosinophils % (A) 3 %; HCT 35.8 % (39.0-53.0); HGB 11.5 gm/dL (13.0-17.5); Lymphocytes # (A) 1.4 k/uL (1.0-4.8); Lymphocytes % (A) 19 %; MCH 35.4 pg (25.0-35.0); MCHC 32.2 g/dL (31.0-37.0); MCV 109.9 fL (80.0-100.0); Macrocytosis Marked; Mean Platelet Volume 7.6; Monocytes # (A) 0.9 k/uL (0-1.0); Monocytes % (A) 12 %; Neutrophils # (A) 4.6 k/uL (1.3-7.7); Neutrophils % (A) 63 %; Platelet Count 227 k/uL (150-450); RBC 3.26 m/uL (4.30-5.90); RDW 13.2 % (11.5-15.5); WBC 7.3 k/uL (3.8-10.6)
[2018-01-30 07:46] LABS: Albumin 2.4 g/dL (3.5-5.0); Calcium 8.4 mg/dL (8.4-10.2); Total Bilirubin 0.3 mg/dL (0.2-1.3); Total Protein 4.8 g/dL (6.3-8.2)
[2018-01-30 07:47] LABS: Potassium 4.3 mmol/L (3.5-5.1)
[2018-01-30 08:52] LABS: Poikilocytosis (M) Present
--- NOTE | 2018-01-30 12:24 | P.PN ---
Subjective Progress Note Date: 01/30/18 Principal diagnosis: Abdominal pain Patient was seen and examined. No acute events overnight. Patient complains of sharp, stabbing abdominal pain at the site of ostomy, 8/10 in severity. Abdominal pain is associated with bloating. States that he wants to go home, not rehab. Does not have oxygen at home. Objective - Vital Signs Vital signs: Vital Signs Temp 97.3 F L 01/30/18 08:09 Pulse 98 01/30/18 08:09 Resp 18 01/30/18 08:09 BP 111/52 01/30/18 08:09 Pulse Ox 96 01/29/18 21:00 Intake & Output 01/29/18 01/30/18 01/30/18 18:59 06:59 18:59 Weight 64.4 kg 64.4 kg Other: Voiding Method Toilet Toilet # Voids 3 2 - Exam General: [non toxic], [no distress], [appears at stated age] Derm: [warm], [dry] Head: [atraumatic], [normocephalic], [symmetric] Eyes: [EOMI], [no lid lag], [anicteric sclera] Mouth: [no lip lesion], [mucus membranes moist] Cardiovascular: [S1S2 reg], [no murmur], [positive posterior tibial pulse bilateral], Lungs: [Decreased breath sounds bilateral], [no rhonchi, no rales] , [no accessory muscle use] Abdominal: [Distended abdomen, with midline scar], [tenderness to palpation over the right and left lower quadrants with no rebound], [no guarding], [no appreciable organomegaly] Ext: [no gross muscle atrophy], [no edema], [no contractures] Neuro: [no focal neuro deficits] Psych: [Alert], [oriented], [appropriate affect] - Labs CBC & Chem 7: 01/30/18 06:54 01/30/18 06:54 Labs: Abnormal Lab Results - Last 24 Hours (Table) 01/30/18 01/30/18 Range/Units 06:54 06:54 RBC 3.26 L (4.30-5.90) m/uL Hgb 11.5 L (13.0-17.5) gm/dL Hct 35.8 L (39.0-53.0) % MCV 109.9 H (80.0-100.0) fL MCH 35.4 H (25.0-35.0) pg Sodium 134 L (137-145) mmol/L Chloride 111 H (98-107) mmol/L Carbon Dioxide 18 L (22-30) mmol/L Creatinine 1.34 H (0.66-1.25) mg/dL AST 14 L (17-59) U/L ALT 16 L (21-72) U/L Total Protein 4.8 L (6.3-8.2) g/dL Albumin 2.4 L (3.5-5.0) g/dL Microbiology - Last 24 Hours (Table) 01/25/18 22:31 Blood Culture - Preliminary Blood No Growth after 96 hours 01/25/18 15:00 Blood Culture - Preliminary Blood No Growth after 96 hours Assessment and Plan Assessment: Assessment and Plan 1. Abdominal pain: Gastroparesis? CT AP shows large stomach and proximal duodenum with motility disorder, no obstructing mass. Continue Reglan 5 mg PO TID. Protonix 40 mg PO QD. FU GI consult 2. [facility], baseline Cr unknown with AG metabolic acidosis: BUN 54 to 12, Cr 2.60 to 1.34. CO2 15 to 18. Kidney US shows mild cortical thinning in the R kidney. Nephrology consulted - check cortisol (normal), avoid NSAIDs + other nephrotoxins and FU in 2 weeks. Continue NaHCO3 650 mg PO BID, Flomax 0.4 mg PO QD. FU Nephrology 3. Chest pain and Troponemia: Atypical and resolved. Troponin 0.042 x 2, 0.029 with EKG showing NSR. CXR negative. Cardiology consulted - troponemia thought to be secondary to CKD. Cardiac diet. Telemetry monitoring. FU Cardiology 4. Bilateral hand pain: Pain management with [place] 5 Q6 PRN and Gabapentin 100 mg PO TID. 5. COPD: Stable. Influenza negative. Continue DuoNeb QID scheduled/PRN, Budesonide 0.5 mg INH BID. O2 per NC to maintain O2 sat > 92%. FU Pulmonology, 6 minute walk test. 6. A-Fibrillation: Stable. Rate controlled with Metoprolol 12.5 mg PO BID. Telemetry monitoring. Keep K > 4 and Mg > 2. FU Cardiology 7. CAD: Stable. Lipid panel shows LDL of 105. Continue ASA 81 mg PO QD, Lipitor 80 mg PO QHS and Plavix 75 mg PO QD. FU Cardiology 8. Anemia: Hg 11.5 Hct 35.8 MCV 109.9. TSH is within normal limits. Likely dilutional. FU B12/Folate Resolved: Leukocytosis (Patient initially had leukocytosis which resolved on day 2. BCx has been negative.) Patient with continued abdominal pain. He is however able to tolerate oral intake. He has multiple snacks at bedside. He started on Reglan for gastroparesis and [place] for pain management as needed. Will follow gastroenterology recommendations for further management. He will need follow- up with his GI surgeon outpatient. Likely discharge tomorrow if pain controlled. Patient requesting to go home, does not want rehab. Will do 6 minute walk test prior to DC to access for home O2 requirements.
[2018-01-30] MEDS: FOLIC ACID 1 MG TAB PO SCH (13:02)
--- NOTE | 2018-01-30 16:03 | P.PN ---
Subjective Progress Note Date: 01/30/18 Seen and examined for the follow-up of acute kidney injury. Creatinine improved from 2.0-1.3 today no nausea vomiting diarrhea. Feels good Objective - Vital Signs Vital signs: Vital Signs Temp 97.3 F L 01/30/18 08:09 Pulse 70 01/30/18 12:35 Resp 18 01/30/18 12:35 BP 102/60 01/30/18 12:35 Pulse Ox 99 01/30/18 12:35 Intake & Output 01/29/18 01/30/18 01/30/18 18:59 06:59 18:59 Weight 64.4 kg 64.4 kg Other: Voiding Method Toilet Toilet # Voids 3 2 3 - Exam No acute distress S1-S2 heard Clear lungs No edema - Labs CBC & Chem 7: 01/30/18 06:54 01/30/18 06:54 Labs: Abnormal Lab Results - Last 24 Hours (Table) 01/30/18 01/30/18 Range/Units 06:54 06:54 RBC 3.26 L (4.30-5.90) m/uL Hgb 11.5 L (13.0-17.5) gm/dL Hct 35.8 L (39.0-53.0) % MCV 109.9 H (80.0-100.0) fL MCH 35.4 H (25.0-35.0) pg Sodium 134 L (137-145) mmol/L Chloride 111 H (98-107) mmol/L Carbon Dioxide 18 L (22-30) mmol/L Creatinine 1.34 H (0.66-1.25) mg/dL AST 14 L (17-59) U/L ALT 16 L (21-72) U/L Total Protein 4.8 L (6.3-8.2) g/dL Albumin 2.4 L (3.5-5.0) g/dL Microbiology - Last 24 Hours (Table) 01/25/18 22:31 Blood Culture - Preliminary Blood No Growth after 96 hours 01/25/18 15:00 Blood Culture - Preliminary Blood No Growth after 96 hours Assessment and Plan Assessment: #1 acute kidney injury secondary to prerenal process. #2 hypovolemic hyponatremia resolved #3 paroxysmal A. fib currently in sinus rhythm #4 diverticulitis status post colectomy and ID ostomy #5 metabolic acidosis #6 suspected chronic kidney disease. Plan: #1 renal function stable. #2 continue with sodium bicarbonate for metabolic acidosis. Stable from nephrology point of view to be discharged to be followed up outpatient in the office
[2018-01-30] MEDS: ATORVASTATIN 80 MG TAB PO SCH (19:32)
[2018-01-31 06:27] VITALS: TEMP 97.6
[2018-01-31 07:10] LABS: Basophils % (A) 0 %; Eosinophils # (A) 0.2 k/uL (0-0.7); Eosinophils % (A) 3 %; HCT 33.9 % (39.0-53.0); Lymphocytes # (A) 1.3 k/uL (1.0-4.8); Lymphocytes % (A) 17 %; MCH 36.3 pg (25.0-35.0); MCHC 32.5 g/dL (31.0-37.0); MCV 111.5 fL (80.0-100.0); Mean Platelet Volume 7.3; Monocytes # (A) 1.1 k/uL (0-1.0); Monocytes % (A) 15 %; Neutrophils # (A) 4.9 k/uL (1.3-7.7); Neutrophils % (A) 64 %; Platelet Count 243 k/uL (150-450); RBC 3.04 m/uL (4.30-5.90); RDW 13.3 % (11.5-15.5); WBC 7.7 k/uL (3.8-10.6)
[2018-01-31 07:14] LABS: Macrocytosis Marked
[2018-01-31 07:23] LABS: Albumin 2.2 g/dL (3.5-5.0); Calcium 8.3 mg/dL (8.4-10.2); Potassium 4.4 mmol/L (3.5-5.1); Total Bilirubin 0.2 mg/dL (0.2-1.3); Total Protein 4.5 g/dL (6.3-8.2)
[2018-01-31] MEDS: IPRATROPIUM-ALBUTEROL 3 ML NEB INHALATION SCH ×3 (08:35→15:39)
[2018-01-31] MEDS: BUDESONIDE 0.5 MG/2 ML NEBU INHALATION SCH (08:35)
[2018-01-31] MEDS: METOCLOPRAMIDE 5 MG TAB PO SCH ×2 (08:57→12:52)
[2018-01-31] MEDS: TAMSULOSIN 0.4 MG CAP.ER.24H PO SCH (08:57)
[2018-01-31] MEDS: GABAPENTIN 100 MG CAP PO SCH ×2 (08:57→15:22)
[2018-01-31] MEDS: CLOPIDOGREL 75 MG TAB PO SCH (08:57)
[2018-01-31] MEDS: ASPIRIN 81 MG PO SCH (08:57)
[2018-01-31] MEDS: SODIUM BICARBONATE TAB 650 MG TAB PO SCH (08:57)
[2018-01-31] MEDS: PANTOPRAZOLE 40 MG TABLET PO SCH (08:58)
[2018-01-31] MEDS: HYDROcodone/APAP 5-325MG 1 EACH TAB PO PRN ×2 (09:04→15:21)
[2018-01-31] MEDS: METOPROLOL TARTRATE 12.5 MG TAB PO SCH (09:04)
--- NOTE | 2018-01-31 10:54 | P.DS ---
Providers Date of admission: 01/25/18 16:46 Expected date of discharge: 01/31/18 Attending physician: Meghan Ennis Consults: 01/25/18 16:46 Consult Physician Routine Consulting Provider: Stephanie Tse Consult Reason/Comments: dyspnea Do you want consulting provider notified?: Yes 01/25/18 20:30 Consult Physician Urgent Consulting Provider: Evan Archer Consult Reason/Comments: unstable angina Do you want consulting provider notified?: Yes 01/25/18 20:31 Consult Physician Routine Consulting Provider: Rocael Arana Consult Reason/Comments: anastasiia Do you want consulting provider notified?: Yes 01/28/18 08:59 Consult Physician Routine Consulting Provider: Russ Grewal Consult Reason/Comments: Delayed gastric emptying, narrowing of duodenum on CT Do you want consulting provider notified?: Yes Primary care physician: Jannet Glasgow - Melanie Diagnosis(es) (1) Gastroparesis Current Visit: Yes Status: Acute (2) Chest pain Current Visit: Yes Status: Acute (3) Troponin I above reference range Current Visit: Yes Status: Acute (4) Bilateral hand pain Current Visit: Yes Status: Acute (5) Atrial fibrillation Current Visit: Yes Status: Acute (6) Anemia Current Visit: Yes Status: Acute (7) Acute kidney injury Current Visit: Yes Status: Acute (8) Coronary artery disease Current Visit: Yes Status: Acute (9) Increased anion gap metabolic acidosis Current Visit: Yes Status: Acute Hospital Course: 62-year-old poor historian male with a past medical history of coronary artery disease with recent stent placement at the end of November at [facility] who presents to the ER with chief complaint of ongoing shortness of breath with exertion, the patient denies any significant cough subjective fevers chills or night sweats. He does report intermittent chest discomfort associated with exertion, he denies any lower extremity swelling. Apparently the patient was recently hospitalized at [facility] and at that time was diagnosed with acute renal failure, which she attributes to dehydration. 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 He also reports increased output in his ileostomy and decreased appetite. With regard to the chest pain, this is thought to be atypical and noncardiac in nature. Initial troponin was 0.0422, 0.029 with EKG showing normal sinus rhythm. His chest x-ray was negative. The patient was initially started on a heparin drip and cardiology was consulted. Cardiology thought the troponin elevation was likely rather to CKD and no further workup was recommended. Heparin drip was discontinued at this time. With regard to his COPD exacerbation, influenza panel was negative. He was started on DuoNeb treatment scheduled and as needed along with budesonide inhaler. He was given oxygen per nasal cannula to maintain an oxygen saturation greater than 92%. Pulmonology was consulted at this time and recommended outpatient follow-up. Patient was noted to have an ANASTASIIA with an anion gap metabolic acidosis. BUN was 54 and creatinine was 2.60 on admission. Creatinine trended down to 1.34 on discharge. Kidney ultrasound showed mild cortical thinning of the right kidney. Nephrology was consulted and recommended checking a cortisol level, which was normal. The recommended avoiding NSAIDs and to follow-up outpatient in 2 weeks. He was also started on sodium bicarbonate 650 mg by mouth twice a day for his acidemia. Bicarbonate level increased 18 at the time of discharge. With regard to his abdominal pain. This is thought to be likely secondary to gastroparesis. CT of the abdomen and pelvis showed a large stomach and proximal duodenum with motility disorder and no obstructing mass. Reglan was started at 5 mg by mouth 3 times a day along with Protonix 40 mg by mouth daily. Gastroenterology was consulted and agreed with the plan. Patient was able to tolerate diet on discharge. Patient was advised to follow-up with his colorectal surgeon for possible reversal of his ileostomy. Otherwise, his home medications were resumed for his bilateral hand pain, COPD, atrial fibrillation and CAD. Patient was seen and examined on 01/31/2018 at 10:45AM. Patient reports mild abdominal pain at the site of ostomy. He has no further nausea or vomiting. He is tolerating diet by mouth. He has multiple snacks at bedside. Patient denies chest pain shortness of breath or palpitations. He has no oxygen at home. General: [non toxic], [no distress], [appears at stated age] Derm: [warm], [dry] Head: [atraumatic], [normocephalic], [symmetric] Eyes: [EOMI], [no lid lag], [anicteric sclera] Mouth: [no lip lesion], [mucus membranes moist] Cardiovascular: [S1S2 reg], [no murmur], [positive DP pulse bilateral], Lungs: [Decreased breath sounds bilateral], [no rhonchi, no rales] , [no accessory muscle use] Abdominal: [Slightly distended abdomen (improved from yesterday), with midline scar, colostomy bag with fecal material], [mild tenderness to palpation over the right and left lower quadrants with no rebound], [no guarding], [no appreciable organomegaly] Ext: [no gross muscle atrophy], [no edema], [no contractures] Neuro: [no focal neuro deficits] Psych: [Alert], [oriented], [appropriate affect] Assessment and Plan 1. Abdominal pain: Gastroparesis? CT AP shows large stomach and proximal duodenum with motility disorder, no obstructing mass. Continue Reglan 5 mg PO TID. Protonix 40 mg PO QD. Patient is tolerating diet, multiple snacks at bedside, seen ambulating with minimal discomfort. 2. ANASTASIIA, baseline Cr unknown with AG metabolic acidosis: BUN 54 to 10, Cr 2.60 to 1.40. CO2 15 to 18. Kidney US shows mild cortical thinning in the R kidney. Nephrology consulted - check cortisol (normal), avoid NSAIDs + other nephrotoxins and FU in 2 weeks. Continue NaHCO3 650 mg PO BID, Flomax 0.4 mg PO QD. FU Nephrology 3. Chest pain and Troponemia: Atypical and resolved. Troponin 0.042 x 2, 0.029 with EKG showing NSR. CXR negative. Cardiology consulted - troponemia thought to be secondary to CKD. Cardiac diet. Telemetry monitoring. FU Cardiology 4. Bilateral hand pain: Pain management with [place] 5 Q6 PRN and Gabapentin 100 mg PO TID. 5. COPD: Stable. Influenza negative. Continue DuoNeb QID scheduled/PRN, Budesonide 0.5 mg INH BID. O2 per NC to maintain O2 sat > 92%. FU Pulmonology, 6 minute walk test. 6. A-Fibrillation: Stable. Rate controlled with Metoprolol 12.5 mg PO BID. Telemetry monitoring. Keep K > 4 and Mg > 2. FU Cardiology 7. CAD: Stable. Lipid panel shows LDL of 105. Continue ASA 81 mg PO QD, Lipitor 80 mg PO QHS and Plavix 75 mg PO QD. FU Cardiology 8. Anemia: Hg 11.0 Hct 33.9 MCV 111.5. TSH is within normal limits. Likely dilutional. B12 is low, will replace PO. FU Folate Resolved: Leukocytosis (Patient initially had leukocytosis which resolved on day 2. BCx has been negative.) Patient was advised to follow-up with his primary care provider within 1-2 days of discharge. Patient was advised follow-up with the film waxer Dr. Crews within 1 week of discharge. Patient was advised to follow-up with his colorectal surgeon for possible reversal of his ileostomy. Patient was advised to follow-up with his security supervisor Dr. Tse within 1 week of discharge. Pertinent Studies: Chest x-ray Renal ultrasound CT abdomen and pelvis Patient Condition at Discharge: Stable Plan - Discharge Summary Discharge Rx Participant: No New Discharge Prescriptions: New Atorvastatin [Lipitor] 80 mg PO HS #30 tab Budesonide/Formoterol Fumarate [Symbicort 160-4.5 Mcg Inhaler] 2 puff INHALATION BID #1 inhaler Cyanocobalamin [Vitamin B-12] 1,000 mcg PO DAILY@1200 #30 tab Gabapentin [Neurontin] 100 mg PO TID #90 cap Metoclopramide [Reglan] 5 mg PO AC-TID #90 tab Metoprolol Tartrate [Lopressor] 12.5 mg PO BID #60 tab Sodium Bicarbonate Tab 650 mg PO BID #60 tab Continue Budesonide [Pulmicort] 0.5 mg INHALATION RT-BID Tamsulosin HCl [Flomax] 0.4 mg PO DAILY Folic Acid 1 mg PO DAILY Albuterol Inhaler [Ventolin Hfa Inhaler] 2 puff INHALATION RT-Q4H PRN #1 inhaler PRN Reason: Shortness Of Breath Albuterol Nebulized [Ventolin Nebulized] 2.5 mg INHALATION RT-TID PRN #90 ampul PRN Reason: Shortness Of Breath Aspirin EC [Ecotrin Low Dose] 81 mg PO DAILY #30 tablet. Clopidogrel Bisulfate [Plavix] 75 mg PO DAILY #30 tablet Pantoprazole [Protonix] 40 mg PO DAILY #30 tablet. Discharge Medication List Budesonide [Pulmicort] 0.5 mg INHALATION RT-BID 01/25/18 [History] Folic Acid 1 mg PO DAILY 01/25/18 [History] Tamsulosin HCl [Flomax] 0.4 mg PO DAILY 01/25/18 [History] Albuterol Inhaler [Ventolin Hfa Inhaler] 2 puff INHALATION RT-Q4H PRN #1 inhaler 01/31/18 [Rx] Albuterol Nebulized [Ventolin Nebulized] 2.5 mg INHALATION RT-TID PRN #90 ampul 01/31/18 [Rx] Aspirin EC [Ecotrin Low Dose] 81 mg PO DAILY #30 tablet. 01/31/18 [Rx] Atorvastatin [Lipitor] 80 mg PO HS #30 tab 01/31/18 [Rx] Budesonide/Formoterol Fumarate [Symbicort 160-4.5 Mcg Inhaler] 2 puff INHALATION BID #1 inhaler 01/31/18 [Rx] Clopidogrel Bisulfate [Plavix] 75 mg PO DAILY #30 tablet 01/31/18 [Rx] Cyanocobalamin [Vitamin B-12] 1,000 mcg PO DAILY@1200 #30 tab 01/31/18 [Rx] Gabapentin [Neurontin] 100 mg PO TID #90 cap 01/31/18 [Rx] Metoclopramide [Reglan] 5 mg PO AC-TID #90 tab 01/31/18 [Rx] Metoprolol Tartrate [Lopressor] 12.5 mg PO BID #60 tab 01/31/18 [Rx] Pantoprazole [Protonix] 40 mg PO DAILY #30 tablet. 01/31/18 [Rx] Sodium Bicarbonate Tab 650 mg PO BID #60 tab 01/31/18 [Rx] Follow up Appointment(s)/Referral(s): Jannet Glasgow DO [Primary Care Provider] - 1 Week None,Stated [REFERRING] - 1-2 days Víctor Crews MD [STAFF PHYSICIAN] - 1 Week Stephanie Tse MD [STAFF PHYSICIAN] - 1 Week Brittni Das MD [STAFF PHYSICIAN] - 1 Week Russ Grewal MD [STAFF PHYSICIAN] - 1 Week Activity/Diet/Wound Care/Special Instructions: Diet: HEART healthy Please follow-up with your primary care provider within 1-2 days of discharge. Please follow-up with cardiology Dr. Crews within 1 week of discharge. Please follow-up with pulmonology Dr. Pitt within 1 week of discharge. Please follow-up with gastroenterology Dr. Posada within 1 week of discharge. Please follow-up with Nephrology Dr. Das within 1 week of discharge. Please follow-up with her colorectal surgeon for the possibility of reversing your ileostomy. Please take all medications as advised. Discharge Disposition: HOME SELF-CARE
[2018-01-31] MEDS ORDERED: CYANOCOBALAMIN 500 MCG TAB PO SCH (12:00)
[2018-01-31 12:11] VITALS: BP 100/58; RESP 20
[2018-01-31 12:49] VITALS: PULSE 89
[2018-01-31] MEDS: FOLIC ACID 1 MG TAB PO SCH (12:52)
--- NOTE | 2018-01-31 16:38 | P.PN ---
Subjective Progress Note Date: 01/31/18 Seen and examined for the follow-up of acute kidney injury. Creatinine improved from 2.0-1.4 today no nausea vomiting diarrhea. Objective - Vital Signs Vital signs: Vital Signs Temp 97.6 F 01/31/18 12:10 Pulse 89 01/31/18 12:32 Resp 20 01/31/18 12:10 BP 100/58 01/31/18 12:10 Pulse Ox 99 01/31/18 12:32 Intake & Output 01/30/18 01/31/18 01/31/18 18:59 06:59 18:59 Other: Voiding Method Toilet Toilet # Voids 3 2 2 - Exam No acute distress S1-S2 heard Clear lungs No edema - Labs CBC & Chem 7: 01/31/18 06:27 01/31/18 06:27 Labs: Abnormal Lab Results - Last 24 Hours (Table) 01/30/18 01/31/18 01/31/18 Range/Units 06:54 06:27 06:27 RBC 3.04 L (4.30-5.90) m/uL Hgb 11.0 L (13.0-17.5) gm/dL Hct 33.9 L (39.0-53.0) % MCV 111.5 H (80.0-100.0) fL MCH 36.3 H (25.0-35.0) pg Monocytes # 1.1 H (0-1.0) k/uL Sodium 136 L (137-145) mmol/L Chloride 114 H (98-107) mmol/L Carbon Dioxide 18 L (22-30) mmol/L Creatinine 1.40 H (0.66-1.25) mg/dL Calcium 8.3 L (8.4-10.2) mg/dL AST 15 L (17-59) U/L ALT 15 L (21-72) U/L Total Protein 4.5 L (6.3-8.2) g/dL Albumin 2.2 L (3.5-5.0) g/dL Vitamin B12 181.0 L (200.0-944.0) pg/mL Microbiology - Last 24 Hours (Table) 01/25/18 22:31 Blood Culture - Preliminary Blood No Growth after 120 hours 01/25/18 15:00 Blood Culture - Preliminary Blood No Growth after 120 hours Assessment and Plan Assessment: #1 acute kidney injury secondary to prerenal process. #2 hypovolemic hyponatremia resolved #3 paroxysmal A. fib currently in sinus rhythm #4 diverticulitis status post colectomy and ID ostomy #5 metabolic acidosis #6 suspected chronic kidney disease. Plan: #1 renal function stable. #2 continue with sodium bicarbonate for metabolic acidosis. Stable from nephrology point of view to be discharged to be followed up outpatient in the office
== END 2018-01-31 17:30 | disposition home or self-care (01) | DRG 683 ==
LOC: EC 14:01 → 3SCARD 16:46 → 3NMEDONC 01-28 21:32
PROVIDERS: ADMIT Internal Medicine; ATTEND Internal Medicine
DX: N17.9 Acute kidney failure, unspecified (principal); E87.1 Hypo-osmolality and hyponatremia; E87.2 Acidosis; I25.110 Atherosclerotic heart disease of native coronary artery with unstable angina pectoris; K57.92 Diverticulitis of intestine, part unspecified, without perforation or abscess without bleeding; J44.1 Chronic obstructive pulmonary disease with (acute) exacerbation; R07.89 Other chest pain; D64.9 Anemia, unspecified; D72.829 Elevated white blood cell count, unspecified; E78.5 Hyperlipidemia, unspecified; E86.0 Dehydration; E86.1 Hypovolemia; E87.6 Hypokalemia; F32.9 Major depressive disorder, single episode, unspecified; I12.9 Hypertensive chronic kidney disease with stage 1 through stage 4 chronic kidney disease, or unspecified chronic kidney disease; I44.4 Left anterior fascicular block; I48.0 Paroxysmal atrial fibrillation; I73.00 Raynaud's syndrome without gangrene; F17.211 Nicotine dependence, cigarettes, in remission; K21.9 Gastro-esophageal reflux disease without esophagitis; K31.84 Gastroparesis; N18.9 Chronic kidney disease, unspecified; N40.0 Benign prostatic hyperplasia without lower urinary tract symptoms; Z79.02 Long term (current) use of antithrombotics/antiplatelets; Z79.82 Long term (current) use of aspirin; Z79.899 Other long term (current) drug therapy; Z82.49 Family history of ischemic heart disease and other diseases of the circulatory system; Z90.49 Acquired absence of other specified parts of digestive tract; Z93.2 Ileostomy status; Z95.5 Presence of coronary angioplasty implant and graft
CPT/HCPCS: 36415; 71046; 74176; 76770; 80053; 80061; 81003; 82533; 82550; 82553; 82607; 82747; 83605; 83880; 84443; 84484; 85025; 85610; 85730; 87040; 87502; 93005; 94640; 96365; 96366; 96375; 99285

== ENCOUNTER 2018-05-09 07:37 | Inpatient (IN) | payer OTHER ==
[2018-05-09] MEDS ORDERED: HYDROmorphone 0.5 MG/0.5 ML SYRINGE IVP STA (07:45)
[2018-05-09] MEDS ORDERED: ONDANSETRON 4 MG/2 ML VIAL IVP STA (07:45)
[2018-05-09] MEDS ORDERED: SODIUM CHLORIDE 0.9% 1,000 ML IV STA (07:45)
--- NOTE | 2018-05-09 07:50 | ED ---
General Adult HPI - General Stated complaint: fall Time Seen by Provider: 05/09/18 07:37 Source: RN notes reviewed - History of Present Illness Initial comments: This is a 62-year-old male who presents emergency Department who presents emergency Department with a complaint of falling. Patient states he fell yesterday and he fell again today. Patient states he thinks he is dehydrated because he has not been getting enough fluids. Patient states this has happened to him in the past. Patient states he did hit his head slightly yesterday but he did not lose consciousness was not dazed and does not have a headache. Patient denies any neck pain. Patient's not complaining of any numbness or weakness. Patient complains of left hip pain only. Patient states she was unable to get back up after the fall today at 4 AM. Patient states he has one drink every day and smokes about a half a pack of cigarettes. Patient also has a past medical history significant for A. fib and kidney dysfunction. Patient states he was dizzy today prior to his fall. Patient denies any chest pain difficulty breathing shortness of breath or palpitations. Patient denied any abdominal pain. Patient denied any recent illness. Patient denies any recent fevers. Patient denies any nausea vomiting diarrhea. - Related Data Home Medications Medication Instructions Recorded Confirmed Budesonide [Pulmicort] 0.5 mg INHALATION RT-BID 01/25/18 01/25/18 Folic Acid 1 mg PO DAILY 01/25/18 01/25/18 Tamsulosin HCl [Flomax] 0.4 mg PO DAILY 01/25/18 01/25/18 Previous Rx's Medication Instructions Recorded Albuterol Inhaler [Ventolin Hfa 1 - 2 puff INHALATION RT-Q6H PRN 01/31/18 Inhaler] #1 inhaler Aspirin 81 mg PO DAILY #30 chew 01/31/18 Atorvastatin [Lipitor] 80 mg PO HS #30 tab 01/31/18 Budesonide/Formoterol Fumarate 2 puff INHALATION BID #1 inhaler 01/31/18 [Symbicort 160-4.5 Mcg Inhaler] Clopidogrel [Plavix] 75 mg PO DAILY #30 tab 01/31/18 Cyanocobalamin [Vitamin B-12] 1,000 mcg PO DAILY@1200 #30 tab 01/31/18 Gabapentin [Neurontin] 100 mg PO TID #90 cap 01/31/18 Metoclopramide [Reglan] 5 mg PO AC-TID #90 tab 01/31/18 Metoprolol Tartrate [Lopressor] 12.5 mg PO BID #60 tab 01/31/18 Pantoprazole [Protonix] 40 mg PO DAILY #30 tablet. 01/31/18 Sodium Bicarbonate Tab 650 mg PO BID #60 tab 01/31/18 Allergies Allergy/AdvReac Type Severity Reaction Status Date / Time No Known Allergies Allergy Verified 05/09/18 07:41 Review of Systems ROS Statement: Those systems with pertinent positive or pertinent negative responses have been documented in the HPI. ROS Other: All systems not noted in ROS Statement are negative. 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 History of Any Multi-Drug Resistant Organisms: None Reported Past Surgical History: Bowel Resection, Heart Catheterization With Stent Additional Past Surgical History / Comment(s): 11/2017 PCI with stent at [facility], colonoscopies, bowel resection with ileostomy, cystoscopy for bladder repair, abdominal abscess with surgical intervention, R inguinal hernia repair with mesh, R knee arthroscopy. Past Anesthesia/Blood Transfusion Reactions: No Reported Reaction Date of Last Stent Placement:: 12/06/17 Past Psychological History: Depression Smoking Status: Current every day smoker Past Alcohol Use History: Daily Past Drug Use History: None Reported - Past Family History Father Family Medical History: Myocardial Infarction ([place]) Additional Family Medical History / Comment(s): Father had 3 MIs, he had his first one at the age of 50 yrs. He at the age of 85 yrs. Mother Family Medical History: No Reported History Additional Family Medical History / Comment(s): Mother was healthy and lived to be 94 or 95 yrs old. General Exam - General Exam Comments Initial Comments: GENERAL: Patient is well-developed and well-nourished. Patient is nontoxic and well- hydrated and is in mild distress. ENT: Neck is soft and supple. No significant lymphadenopathy is noted. Oropharynx is clear. Dry mucous membranes. Neck has full range of motion without eliciting any pain. Patient has no palpable neck tenderness. EYES: The sclera were anicteric and conjunctiva were pink and moist. Extraocular movements were intact and pupils were equal round and reactive to light. Eyelids were unremarkable. PULMONARY: Unlabored respirations. Good breath sounds bilaterally. No audible rales rhonchi or wheezing was noted. CARDIOVASCULAR: There is a regular rate and rhythm without any murmurs gallops or rubs. ABDOMEN: Soft and nontender with normal bowel sounds. Patient has an ostomy SKIN: Skin is clear with no lesions or rashes and otherwise unremarkable. NEUROLOGIC: Patient is alert and oriented x3. Cranial nerves II through XII are grossly intact. Motor and sensory are also intact. Normal speech, volume and content. Symmetrical smile. MUSCULOSKELETAL: Patient has full range of motion of his upper extremities. Patient has significant tenderness of his left hip is particularly laterally. Patient is unable to move his hip secondary to pain. LYMPHATICS: No significant lymphadenopathy is noted PSYCHIATRIC: Normal psychiatric evaluation. Course Vital Signs 05/09/18 05/09/18 07:41 08:15 Temperature 98.2 F Pulse Rate 78 Respiratory 18 18 Rate Blood Pressure 109/68 111/74 O2 Sat by Pulse 99 Oximetry Medical Decision Making - Medical Decision Making EKG shows normal sinus rhythm at 81 bpm OH interval is 170 QRS is 92 QT interval 422 QTC is 490. Patient's EKG shows no ST segment elevation or depression. Patient does show Q waves in the inferior leads 3 and aVF. Patient has an impacted left femoral neck fracture. Patient's troponin is elevated and his sodium is low so I spoke with Dr. Long he agreed to admit the patient admitted the patient I wrote admitting orders I consult cardiology I repeated troponins and I consulted orthopedics. Patient has no complaint of chest pain difficulty breathing or shortness of breath patient's only complaint is left hip pain. - Lab Data Result diagrams: 05/09/18 08:10 05/09/18 08:10 Lab Results 05/09/18 05/09/18 05/09/18 Range/Units 08:10 08:10 08:10 WBC 13.8 H (3.8-10.6) k/uL RBC 4.37 (4.30-5.90) m/uL Hgb 15.5 (13.0-17.5) gm/dL Hct 45.9 (39.0-53.0) % MCV 104.9 H (80.0-100.0) fL MCH 35.4 H (25.0-35.0) pg MCHC 33.8 (31.0-37.0) g/dL RDW 17.5 H (11.5-15.5) % Plt Count 278 (150-450) k/uL Neutrophils % 83 % Lymphocytes % 6 % Monocytes % 9 % Eosinophils % 1 % Basophils % 0 % Neutrophils # 11.4 H (1.3-7.7) k/uL Lymphocytes # 0.8 L (1.0-4.8) k/uL Monocytes # 1.2 H (0-1.0) k/uL Eosinophils # 0.2 (0-0.7) k/uL Basophils # 0.0 (0-0.2) k/uL Anisocytosis Slight Macrocytosis Moderate PT (9.0-12.0) sec INR (<1.2) APTT (22.0-30.0) sec Sodium 123 L (137-145) mmol/L Potassium 3.6 (3.5-5.1) mmol/L Chloride 93 L (98-107) mmol/L Carbon Dioxide 18 L (22-30) mmol/L Anion Gap 12 mmol/L BUN 29 H (9-20) mg/dL Creatinine 2.05 H (0.66-1.25) mg/dL Est GFR (CKD-EPI)AfAm 39 (>60 ml/min/1.73 sqM) Est GFR (CKD-EPI)NonAf 33 (>60 ml/min/1.73 sqM) Glucose 94 (74-99) mg/dL Plasma Lactic Acid Mj 2.0 (0.7-2.0) mmol/L Calcium 9.6 (8.4-10.2) mg/dL Magnesium 1.8 (1.6-2.3) mg/dL Total Bilirubin 1.0 (0.2-1.3) mg/dL AST 26 (17-59) U/L ALT 26 (21-72) U/L Alkaline Phosphatase 119 (38-126) U/L Troponin I (0.000-0.034) ng/mL Total Protein 7.0 (6.3-8.2) g/dL Albumin 3.9 (3.5-5.0) g/dL 05/09/18 05/09/18 Range/Units 08:10 08:10 WBC (3.8-10.6) k/uL RBC (4.30-5.90) m/uL Hgb (13.0-17.5) gm/dL Hct (39.0-53.0) % MCV (80.0-100.0) fL MCH (25.0-35.0) pg MCHC (31.0-37.0) g/dL RDW (11.5-15.5) % Plt Count (150-450) k/uL Neutrophils % % Lymphocytes % % Monocytes % % Eosinophils % % Basophils % % Neutrophils # (1.3-7.7) k/uL Lymphocytes # (1.0-4.8) k/uL Monocytes # (0-1.0) k/uL Eosinophils # (0-0.7) k/uL Basophils # (0-0.2) k/uL Anisocytosis Macrocytosis PT 10.4 (9.0-12.0) sec INR 1.0 (<1.2) APTT 28.2 (22.0-30.0) sec Sodium (137-145) mmol/L Potassium (3.5-5.1) mmol/L Chloride (98-107) mmol/L Carbon Dioxide (22-30) mmol/L Anion Gap mmol/L BUN (9-20) mg/dL Creatinine (0.66-1.25) mg/dL Est GFR (CKD-EPI)AfAm (>60 ml/min/1.73 sqM) Est GFR (CKD-EPI)NonAf (>60 ml/min/1.73 sqM) Glucose (74-99) mg/dL Plasma Lactic Acid Mj (0.7-2.0) mmol/L Calcium (8.4-10.2) mg/dL Magnesium (1.6-2.3) mg/dL Total Bilirubin (0.2-1.3) mg/dL AST (17-59) U/L ALT (21-72) U/L Alkaline Phosphatase (38-126) U/L Troponin I 1.200 H* (0.000-0.034) ng/mL Total Protein (6.3-8.2) g/dL Albumin (3.5-5.0) g/dL Critical Care Time Critical Care Time: Yes Total Critical Care Time: 35 Disposition Clinical Impression: Fall, Troponin I above reference range, Renal insufficiency, Hip fracture, left Disposition: ADMITTED IP TO THIS HOSP Referrals: None,Stated [Primary Care Provider] - 1-2 days Time of Disposition: 09:24
[2018-05-09 08:18] LABS: Anisocytosis Slight; Basophils % (A) 0 %; Eosinophils # (A) 0.2 k/uL (0-0.7); Eosinophils % (A) 1 %; HCT 45.9 % (39.0-53.0); HGB 15.5 gm/dL (13.0-17.5); Lymphocytes # (A) 0.8 k/uL (1.0-4.8); Lymphocytes % (A) 6 %; MCH 35.4 pg (25.0-35.0); MCHC 33.8 g/dL (31.0-37.0); MCV 104.9 fL (80.0-100.0); Macrocytosis Moderate; Mean Platelet Volume 7.1; Monocytes # (A) 1.2 k/uL (0-1.0); Monocytes % (A) 9 %; Neutrophils # (A) 11.4 k/uL (1.3-7.7); Neutrophils % (A) 83 %; Platelet Count 278 k/uL (150-450); RBC 4.37 m/uL (4.30-5.90); RDW 17.5 % (11.5-15.5); WBC 13.8 k/uL (3.8-10.6)
[2018-05-09 08:27] LABS: Albumin 3.9 g/dL (3.5-5.0); Calcium 9.6 mg/dL (8.4-10.2); Magnesium 1.8 mg/dL (1.6-2.3); Potassium 3.6 mmol/L (3.5-5.1)
[2018-05-09 08:28] LABS: Partial Thromboplastin Time 28.2 sec (22.0-30.0); Prothrombin Time 10.4 sec (9.0-12.0)
--- NOTE | 2018-05-09 09:07 | XR ---
EXAMINATION TYPE: XR chest 2V DATE OF EXAM: 05/09/2018 COMPARISON: 01/25/2018 HISTORY: 62-year-old male with weakness TECHNIQUE: AP and lateral views FINDINGS: Heart normal size. Hyperinflation. Strandy atelectasis in the lower lungs. No consolidation or pleura l effusion. Focal left suprahilar nodularity suspected to represent a prominent vessel on end. Old he aled left midclavicular shaft fracture deformity. Accentuated lower thoracic kyphosis. IMPRESSION: 1. COPD. No acute cardiopulmonary process seen. 2. Left suprahilar nodularity suspected vessel on end. Recommend 6-8 week follow-up to exclude a pulm onary nodule.
--- NOTE | 2018-05-09 09:09 | XR ---
EXAMINATION TYPE: AP view pelvis and 2 views left hip DATE OF EXAM: 05/09/2018 COMPARISON: NONE HISTORY: 62-year-old male with pain after fall this morning FINDINGS: Vascular calcifications in the pelvis. Query left lower quadrant colostomy. Moderate degenerative sumit nge of the right hip and mild left hip. Impacted transverse cervical left femoral neck fracture. No i ntertrochanteric extension identified. IMPRESSION: 1. Impacted left transcervical femoral neck fracture. 2. Mild left OA and moderate right hip OA.
[2018-05-09] MEDS ORDERED: NITROGLYCERIN SL TABS 0.4 MG TAB SUBLINGUAL PRN (09:26)
[2018-05-09] MEDS ORDERED: ASPIRIN 81 MG PO STA (09:26)
[2018-05-09] MEDS ORDERED: SODIUM CHLORIDE 0.9% 500 ML 500 ML IV ONE (09:28)
[2018-05-09] MEDS ORDERED: ONDANSETRON 4 MG/2 ML VIAL IVP PRN (09:29)
[2018-05-09] MEDS ORDERED: SODIUM CHLORIDE 0.9% 1,000 ML IV SCH (09:30)
[2018-05-09] MEDS: HYDROmorphone 0.5 MG/0.5 ML SYRINGE IVP PRN ×4 (11:19→23:05)
[2018-05-09] MEDS ORDERED: ALBUTEROL NEBULIZED 2.5 MG/3 ML INHALATION PRN (11:23)
--- NOTE | 2018-05-09 11:39 | P.HPIM ---
History of Present Illness H&P Date: 05/09/18 Chief Complaint: Fall, right hip fracture This very pleasant 62-year-old male comes into the ER with above-mentioned complaints. Patient says that he got up from the bed this morning and tried to use the restroom and while he was walking he felt dizzy and had a fall. He started having pain in his right hip. He hit his head lightly but did not lose consciousness. He otherwise does not complain of any chest pain, racing heart, no cough, shortness of breath, no abdominal pain. He does not complain of any increased drainage from the ostomy bag. He does not complain of any itch or rash, no fever no chills, no tingling numbness on his extremities, no headaches. Next ER course-temperature 98.1 pulse 82 respirations 14 blood pressure 124/76 satting 97% on room air. Labwork shows WBC 13.8 hemoglobin 15.5 platelets 278 INR 1.0 sodium 123 potassium 3.6 BUN 29 creatinine 2.05 troponin level I.2 LFTs are normal. Patient was admitted to the hospitalist service for further evaluation and management. Cardiology was also consulted for cardiac clearance. Patient was also given 1 L of fluid in the ER. 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, colonoscopies, bowel resection with ileostomy, cystoscopy for bladder repair, abdominal abscess with surgical intervention, R inguinal hernia repair with mesh, R knee arthroscopy. Past Anesthesia/Blood Transfusion Reactions: No Reported Reaction Date of Last Stent Placement:: 12/06/17 Past Psychological History: Depression Additional Psychological History / Comment(s): Pt states he was released from [facility] 01/18/18 and returned to his apartment. He has a nebulizer but wonders if he could get home oxygen. He no longer drives, he is able to get rides to appts. Smoking Status: Current every day smoker Past Alcohol Use History: Daily Additional Past Alcohol Use History / Comment(s): Pt started smoking in 1967 and was a pack to a pack and a half smoker until recently, he is down to 1/2 ppd. He states he drinks daily and average amount is 4 vodka or bourbon drinks per day. Past Drug Use History: None Reported - Past Family History Father Family Medical History: Myocardial Infarction ([place]) Additional Family Medical History / Comment(s): Father had 3 MIs, he had his first one at the age of 50 yrs. He at the age of 85 yrs. Mother Family Medical History: No Reported History Additional Family Medical History / Comment(s): Mother was healthy and lived to be 94 or 95 yrs old. Medications and Allergies Home Medications Medication Instructions Recorded Confirmed Type Folic Acid 1 mg PO DAILY 01/25/18 05/09/18 History Albuterol Inhaler [Ventolin Hfa 1 - 2 puff INHALATION RT-Q6H PRN 01/31/18 Rx Inhaler] #1 inhaler Aspirin 81 mg PO DAILY #30 chew 01/31/18 05/09/18 Rx Atorvastatin [Lipitor] 80 mg PO HS #30 tab 01/31/18 05/09/18 Rx Clopidogrel [Plavix] 75 mg PO DAILY #30 tab 01/31/18 05/09/18 Rx Cyanocobalamin [Vitamin B-12] 1,000 mcg PO DAILY@1200 #30 tab 01/31/18 05/09/18 Rx Gabapentin [Neurontin] 100 mg PO TID #90 cap 01/31/18 05/09/18 Rx Metoclopramide [Reglan] 5 mg PO AC-TID #90 tab 01/31/18 05/09/18 Rx Pantoprazole [Protonix] 40 mg PO DAILY #30 tablet. 01/31/18 05/09/18 Rx Sodium Bicarbonate Tab 650 mg PO BID #60 tab 01/31/18 05/09/18 Rx Budesonide/Formoterol Fumarate 2 puff INHALATION RT-BID 05/09/18 05/09/18 History [Symbicort 160-4.5 Mcg Inhaler] Allergies Allergy/AdvReac Type Severity Reaction Status Date / Time No Known Allergies Allergy Verified 05/09/18 10:42 Physical Exam Vitals: Vital Signs Temp Pulse Resp BP Pulse Ox 05/09/18 10:38 97 05/09/18 10:03 98.1 F 82 14 124/76 89 L 05/09/18 08:15 18 111/74 99 05/09/18 07:41 98.2 F 78 18 109/68 Intake and Output 05/08/18 05/09/18 05/09/18 22:59 06:59 14:59 Other: Weight 68.039 kg On exam, alert and oriented x3. HEENT: Conjunctivae normal. eyes normal. NECK: No JVD. No thyroid enlargement. No LNs CARDIOVASCULAR: S1-S2 positive RESPIRATION: Breath sounds diminished in the bases. No rhonchi or crackles. No bronchial breathing. ABDOMEN: Soft, mild tenderness appreciated in the right lower quadrant. Patient has an ostomy bag and left low quadrant No guarding. no masses palpable. No ascites, No hepatosplenomegaly.Bowel sounds heard. LEGS: He is having pain in the left hip NERVOUS SYSTEM: Cranial N 2-12 grossly normal. Moves all 4 limbs. No focal deficits. No sensory deficit. No signs of cerebellar dysfucntion. Skin: no ulcer no rash J Results CBC & Chem 7: 05/09/18 08:10 05/09/18 08:10 Labs: Abnormal Lab Results - Last 24 Hours (Table) 05/09/18 05/09/18 05/09/18 Range/Units 08:10 08:10 08:10 WBC 13.8 H (3.8-10.6) k/uL MCV 104.9 H (80.0-100.0) fL MCH 35.4 H (25.0-35.0) pg RDW 17.5 H (11.5-15.5) % Neutrophils # 11.4 H (1.3-7.7) k/uL Lymphocytes # 0.8 L (1.0-4.8) k/uL Monocytes # 1.2 H (0-1.0) k/uL Sodium 123 L (137-145) mmol/L Chloride 93 L (98-107) mmol/L Carbon Dioxide 18 L (22-30) mmol/L BUN 29 H (9-20) mg/dL Creatinine 2.05 H (0.66-1.25) mg/dL Troponin I 1.200 H* (0.000-0.034) ng/mL Thrombosis Risk Factor Assmnt - Choose All That Apply Any of the Below Risk Factors Present?: Yes Each Factor Represents 1 point: Abnormal pulmonary function (COPD) Thrombosis Risk Factor Assessment Total Risk Factor Score: 1 Thrombosis Risk Factor Assessment Level: Low Risk Assessment and Plan Assessment: - Left hip fracture - AK I on CK D - Hyponatremia probably because of dehydration - History of A. fib - History of hypertension - History of COPD - History of CAD with stent placement as per patient 0 history of diverticulitis status post bowel resection and ostomy bag Plan - We'll admit the patient to [facility] with telemetry - Patient was dehydrated as evidenced by dry mucous payments and elevated kidney functions. He also said that he was feeling dizzy this morning and yesterday. He was given 1 liter of fluid bolus in the ER. We'll give him 125 mL of IV fluid maintenance. We'll recheck the BMP in the afternoon and tomorrow morning again. - Cardiology was consulted for cardiac clearance - We'll resume the patient's home medications except for we'll hold off on the patient's blood thinners as the patient might go to surgery tomorrow depending upon daughter recommendations. - DVT and GI prophylaxis - We'll order for lab work in the morning - Expected length of stay more than 2 midnights - Patient is full code Time with Patient: Greater than 30
--- NOTE | 2018-05-09 11:53 | P.CNOR ---
History of Present Illness - HPI Consult date: 05/09/18 Consult reason: fracture (Left hip fracture, acute status post fall) History of present illness: Patient is seen and examined at bedside. Presented after he got dizzy at home and fell and had subsequent acute pain at his left hip. He denies any prior left hip pain. He says that he changed his blood pressure medicine a few months ago and has occasional dizzy spells and fell this morning. He denies any chest pain shortness breath denies any loss of consciousness. He says that he did not know if he had a heart attack. He has been worked up in the emergency room after his fall was found have elevated troponins. He says he does not have any numbness tingling in his lower extremity. Denies to have any pain in his neck. His IV changes in vision. He is not having any chest pain or shortness of breath. He normally ambulate without any assistance. He is a longtime smoker. He lives at home with another person who is older than him but is normally relatively self-sufficient. Review of Systems As stated per HPI. No antecedent pain and left hip. No numbness tingling a left lower extremity. No pain in the right lower extremity. No other pain to the hip. No neck pain no chest pain or shortness breath. No headaches. Past Medical History Past Medical History: Atrial Fibrillation, COPD, Hypertension Additional Past Medical History / Comment(s): Pt states he recently had PCI with stents about 6 weeks ago at [facility], generalized chronic pain, past multiple fractures including cervical fracture, severe diverticulitis with bowel resection/ileostomy and had bladder injury during surgery which required surgery then devloped an abdominal abscess which also required surgery, recent acute renal failure possibly d/t dehydration, 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 Past Anesthesia/Blood Transfusion Reactions: No Reported Reaction Date of Last Stent Placement:: 12/06/17 Past Psychological History: Depression Additional Psychological History / Comment(s): Pt states he was released from group home 01/18/18 and returned to his apartment. He has a nebulizer but wonders if he could get home oxygen. He no longer drives, he is able to get rides to appts. Smoking Status: Current every day smoker Past Alcohol Use History: Daily Additional Past Alcohol Use History / Comment(s): Pt started smoking in 1967 and was a pack to a pack and a half smoker until recently, he is down to 1/2 ppd. He states he drinks daily and average amount is 4 vodka or bourbon drinks per day. Past Drug Use History: None Reported - Past Family History Father Family Medical History: Myocardial Infarction ([place]) Additional Family Medical History / Comment(s): Father had 3 MIs, he had his first one at the age of 50 yrs. He at the age of 85 yrs. Mother Family Medical History: No Reported History Additional Family Medical History / Comment(s): Mother was healthy and lived to be 94 or 95 yrs old. Medications and Allergies Home Medications Medication Instructions Recorded Confirmed Type Folic Acid 1 mg PO DAILY 01/25/18 05/09/18 History Albuterol Inhaler [Ventolin Hfa 1 - 2 puff INHALATION RT-Q6H PRN 01/31/18 Rx Inhaler] #1 inhaler Aspirin 81 mg PO DAILY #30 chew 01/31/18 05/09/18 Rx Atorvastatin [Lipitor] 80 mg PO HS #30 tab 01/31/18 05/09/18 Rx Clopidogrel [Plavix] 75 mg PO DAILY #30 tab 01/31/18 05/09/18 Rx Cyanocobalamin [Vitamin B-12] 1,000 mcg PO DAILY@1200 #30 tab 01/31/18 05/09/18 Rx Gabapentin [Neurontin] 100 mg PO TID #90 cap 01/31/18 05/09/18 Rx Metoclopramide [Reglan] 5 mg PO AC-TID #90 tab 01/31/18 05/09/18 Rx Pantoprazole [Protonix] 40 mg PO DAILY #30 tablet. 01/31/18 05/09/18 Rx Sodium Bicarbonate Tab 650 mg PO BID #60 tab 01/31/18 05/09/18 Rx Budesonide/Formoterol Fumarate 2 puff INHALATION RT-BID 05/09/18 05/09/18 History [Symbicort 160-4.5 Mcg Inhaler] Allergies Allergy/AdvReac Type Severity Reaction Status Date / Time No Known Allergies Allergy Verified 05/09/18 10:42 Physical Examination Osteopathic Statement: *. No significant issues noted on an osteopathic structural exam other than those noted in the History and Physical/Consult. - Hip left Gait: other Tenderness with palpation: anterior, posterior, lateral Pain with motion: internal rotation and hip flexion, internal rotation and hip extension, external rotation and hip flexion (At the patient's left hip he is unable left his left leg up off the bed due to pain. He has sustained resection plantar flexion and EHL intact at his foot and ankle. He has severe pain in his left hip and groin with any sort of motion. His tenderness to palpation of left hip. His thigh and calf are soft. His right lower extremity is able lift off off the bed. He has good strength in wrist flexion plantarflexion is no pain in his right hip with internal/external rotation. His chest is good excursion deep inspection expiration abdomen soft nontender his upper extremity have full active and passive range motion. His neck is nontender to palpation and range of motion. HEENT is normocephalic. He has some tobacco staining in his left fingers.) Results - Labs Labs: Abnormal Lab Results - Last 24 Hours (Table) 05/09/18 05/09/18 05/09/18 Range/Units 08:10 08:10 08:10 WBC 13.8 H (3.8-10.6) k/uL MCV 104.9 H (80.0-100.0) fL MCH 35.4 H (25.0-35.0) pg RDW 17.5 H (11.5-15.5) % Neutrophils # 11.4 H (1.3-7.7) k/uL Lymphocytes # 0.8 L (1.0-4.8) k/uL Monocytes # 1.2 H (0-1.0) k/uL Sodium 123 L (137-145) mmol/L Chloride 93 L (98-107) mmol/L Carbon Dioxide 18 L (22-30) mmol/L BUN 29 H (9-20) mg/dL Creatinine 2.05 H (0.66-1.25) mg/dL Troponin I 1.200 H* (0.000-0.034) ng/mL H & H 05/09/18 Range/Units 08:10 Hgb 15.5 (13.0-17.5) gm/dL Hct 45.9 (39.0-53.0) % Coagulation 05/09/18 Range/Units 08:10 INR 1.0 (<1.2) Result Diagrams: 05/09/18 08:10 05/09/18 08:10 - Diagnostic results Hip x-ray: report reviewed, image reviewed (The pelvis and left hip x-rays show a fracture at the left femoral neck with displacement. There is no evidence of mass.) Assessment and Plan Assessment: Acute left femoral neck fracture displaced, traumatic due to a fall Elevated troponins possible cardiac event progress without chest pain Dizziness status post fall possible cardiac origin Plan: Acute left femoral neck fracture displaced, traumatic due to a fall Elevated troponins possible cardiac event progress without chest pain Dizziness status post fall possible cardiac origin The patient had dizziness and a fall and sustained a acute traumatic left femoral neck fracture with displacement. He is unable ably due to this. In regards to his left hip the best course of treatment for him would be to pursue surgical intervention. This would give him the best chance of trying to mobilize and get out of bed and start weightbearing on left lower extremity. With conservative treatment he would likely be in prolonged bed rest and severe deconditioning and would likely be unable to ambulate due to his pain and would severely diminished his overall function. I think that surgery is the best option for him for left hip hemiarthroplasty. We discussed this at bedside. He is quite hesitant to consider surgery as yet had been through a number of different procedures fairly recently in regards to his heart stent and other medical issues. I explained to him that surgical intervention were given the best chance of trying to mobilize. He was certainly anxious about this issue and says he rather just been a wheelchair but on further discussion he seems to understand that he may actually be amenable toward the idea of surgery in pursuing surgical intervention as it would give him the best chance of mobilization for his hip fracture. He would like to think about this further. I think that is understandable. He is continuing his workup in regards to his cardiac issues and his recent stenting. He is also continuing workup for his recent dizziness and fall. We could consider surgical intervention tomorrow afternoon if he chooses to pursue this. We will offer him a consent form if he chooses to do so and make him nothing by mouth after midnight and do appropriate preoperative planning in case he decides to pursue surgery and if he is cleared by cardiology. I answered his questions best my ability G understand he is agreeable.
[2018-05-09] MEDS: NITROGLYCERIN OINT 1 INCH/GM PACKET TOPICAL SCH ×3 (13:51→23:04)
[2018-05-09] MEDS: METOCLOPRAMIDE 5 MG TAB PO SCH ×2 (14:59→17:13)
[2018-05-09] MEDS: SODIUM CHLORIDE 0.9% 1,000 ML IV SCH ×2 (15:03→23:04)
[2018-05-09] MEDS: GABAPENTIN 100 MG CAP PO SCH ×2 (17:15→19:59)
[2018-05-09] MEDS: ATORVASTATIN 80 MG TAB PO SCH (19:59)
[2018-05-09] MEDS: SODIUM BICARBONATE TAB 650 MG TAB PO SCH (19:59)
[2018-05-09] MEDS: SYMBICORT 160-4.5 MCG INHALER INHALATION SCH (20:59)
[2018-05-10] MEDS: HYDROmorphone 0.5 MG/0.5 ML SYRINGE IVP PRN ×5 (03:09→20:37)
[2018-05-10] MEDS: SODIUM CHLORIDE 0.9% 1,000 ML IV SCH ×3 (03:13→20:10)
[2018-05-10 03:39] LABS: Appearance,Urine Clear (Clear); Bilirubin,Urine Negative (Negative); Blood,Urine Negative (Negative); Color,Urine Yellow; Glucose,Urine (UA) Negative (Negative); Hyaline Casts,Urine 3 /lpf (0-2); Ketones,Urine Negative (Negative); Leukocyte Esterase,Urine Trace (Negative); Mucus,Urine Rare /hpf; Nitrite,Urine Negative (Negative); Protein,Urine Trace (Negative); RBC,Urine 1 /hpf (0-5); Specific Gravity,Urine 1.009 (1.001-1.035); Squamous Epithelial Cell,Urine 1 /hpf (0-4); Urobilinogen,Urine <2.0 mg/dL (<2.0); WBC,Urine 9 /hpf (0-5)
[2018-05-10 03:58] LABS: Cholesterol 150 mg/dL (<200); HDL Cholesterol 68 mg/dL (40-60); LDL Cholesterol,Calculated 56 mg/dL (0-99); Triglycerides 129 mg/dL (<150)
[2018-05-10] MEDS: METOCLOPRAMIDE 5 MG TAB PO SCH ×3 (04:46→17:06)
[2018-05-10] MEDS: NITROGLYCERIN OINT 1 INCH/GM PACKET TOPICAL SCH (04:46)
--- NOTE | 2018-05-10 08:46 | P.CRDCN ---
History of Present Illness Consult date: 05/10/18 Requesting physician: Quintin Long Reason for Consult (text): Abnormal troponin Chief complaint: Fall History of present illness: This is a 62-year-old gentleman who is a very poor historian, and quite abrasive and a propped. Not he could answer any questions. He apparently presented to the hospital after experiencing a fall at home. He states that prior to his fall he did feel dizzy. Patient does have a history of coronary artery disease with prior stent placement last year in November at [facility], history of paroxysmal atrial fibrillation, hypertension, COPD, hyperlipidemia, nicotine dependence, prior bowel resection. Presented to the hospital after experiencing a presyncopal episode with fall. He did incur a hip fracture, orthopedics is recommending surgery, for this reason a cardiology consultation was requested. Patient was also noted to have abnormality in troponin. Chest x-ray shows COPD with no acute cardiopulmonary process. Left suprahilar nodularity suspected. Hip and pelvis x-ray showed an impacted left trans-cervical for moral neck fracture. EKG shows a normal sinus rhythm with no acute changes. Blood pressure 110/60 with a heart rate in the 70s on arrival , blood pressure this morning 108/70 with a heart rate in the 80s, 91% on room air. White blood cell count 13.8, hemoglobin 15.5, platelet count 278. Sodium 123, potassium 3.6, BUN 29 and creatinine 2.0. Troponin 1.2, 0.9, 1.0. Patient is quite belligerent at the time of my examination, actually refusing to answer questions, at this point in time he states he is not interested in having any surgery or speaking to any physicians for healthcare providers. He wants a coffee and he wants to watch TV. Past Medical History Past Medical History: Atrial Fibrillation, COPD, Hypertension Additional Past Medical History / Comment(s): Pt states he recently had PCI with stents about 6 weeks ago at [facility], generalized chronic pain, past multiple fractures including cervical fracture, severe diverticulitis with bowel resection/ileostomy and had bladder injury during surgery which required surgery then devloped an abdominal abscess which also required surgery, recent acute renal failure possibly d/t dehydration, 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 Past Anesthesia/Blood Transfusion Reactions: No Reported Reaction Date of Last Stent Placement:: 12/06/17 Past Psychological History: Depression Additional Psychological History / Comment(s): Pt states he was released from group home 01/18/18 and returned to his apartment. He has a nebulizer but wonders if he could get home oxygen. He no longer drives, he is able to get rides to appts. Smoking Status: Current every day smoker Past Alcohol Use History: Daily Additional Past Alcohol Use History / Comment(s): Pt started smoking in 1967 and was a pack to a pack and a half smoker until recently, he is down to 1/2 ppd. He states he drinks daily and average amount is 4 vodka or bourbon drinks per day. Past Drug Use History: None Reported - Past Family History Father Family Medical History: Myocardial Infarction ([place]) Additional Family Medical History / Comment(s): Father had 3 MIs, he had his first one at the age of 50 yrs. He at the age of 85 yrs. Mother Family Medical History: No Reported History Additional Family Medical History / Comment(s): Mother was healthy and lived to be 94 or 95 yrs old. Medications and Allergies Home Medications Medication Instructions Recorded Confirmed Type Folic Acid 1 mg PO DAILY 01/25/18 05/09/18 History Albuterol Inhaler [Ventolin Hfa 1 - 2 puff INHALATION RT-Q6H PRN 01/31/18 Rx Inhaler] #1 inhaler Aspirin 81 mg PO DAILY #30 chew 01/31/18 05/09/18 Rx Atorvastatin [Lipitor] 80 mg PO HS #30 tab 01/31/18 05/09/18 Rx Clopidogrel [Plavix] 75 mg PO DAILY #30 tab 01/31/18 05/09/18 Rx Cyanocobalamin [Vitamin B-12] 1,000 mcg PO DAILY@1200 #30 tab 01/31/18 05/09/18 Rx Gabapentin [Neurontin] 100 mg PO TID #90 cap 01/31/18 05/09/18 Rx Metoclopramide [Reglan] 5 mg PO AC-TID #90 tab 01/31/18 05/09/18 Rx Pantoprazole [Protonix] 40 mg PO DAILY #30 tablet. 01/31/18 05/09/18 Rx Sodium Bicarbonate Tab 650 mg PO BID #60 tab 01/31/18 05/09/18 Rx Budesonide/Formoterol Fumarate 2 puff INHALATION RT-BID 05/09/18 05/09/18 History [Symbicort 160-4.5 Mcg Inhaler] Allergies Allergy/AdvReac Type Severity Reaction Status Date / Time No Known Allergies Allergy Verified 05/09/18 10:42 Physical Exam Vitals: Vital Signs Temp Pulse Pulse Resp BP BP Pulse Ox 05/10/18 04:00 98.3 F 88 18 108/72 91 L 05/10/18 00:00 98.5 F 88 18 104/69 92 L 05/09/18 20:00 98.5 F 90 19 100/79 91 L 05/09/18 16:00 97 F L 81 18 111/63 96 05/09/18 11:27 97.1 F L 87 18 120/69 100 05/09/18 10:38 97 05/09/18 10:03 98.1 F 82 14 124/76 89 L Intake and Output 05/09/18 05/10/18 05/10/18 22:59 06:59 14:59 Intake Total 800 Output Total 50 250 Balance -50 550 Intake: Intake, IV Titration 800 Amount Sodium Chloride 0.9% 1, 800 000 ml @ 125 mls/hr IV . Q8H [facility] Rx#:[id number] Output: Urine 50 250 Other: Voiding Method Urinal Weight 68 kg PHYSICAL EXAMINATION: GENERAL: 62-year-old gentleman in no acute distress at the time of my examination HEENT: Head is atraumatic, normocephalic. Pupils equal, round. Sclera anicteric. Conjunctiva are clear. Mucous membranes of the mouth are moist. Neck is supple. There is no elevated jugular venous pressure. No carotid bruit is heard. HEART EXAMINATION: Heart S1, S2 normal. No murmur or gallop heard. CHEST EXAMINATION: Lungs are clear to auscultation and precussion. No chest wall tenderness is noted on palpation or with deep breathing. ABDOMEN: Soft, nontender. Bowel sounds are heard. No organomegaly noted. EXTREMITIES: 2+ peripheral pulses with no evidence of peripheral edema and no calf tenderness noted. NEUROLOGIC patient is awake, alert and oriented X3. . Results 05/09/18 08:10 05/09/18 08:10 Cardiac Enzymes 05/09/18 05/09/18 05/09/18 Range/Units 08:10 08:10 12:05 AST 26 (17-59) U/L Troponin I 1.200 H* 0.909 H* (0.000-0.034) ng/mL 05/09/18 Range/Units 20:26 AST (17-59) U/L Troponin I 1.030 H* (0.000-0.034) ng/mL Coagulation 05/09/18 Range/Units 08:10 PT 10.4 (9.0-12.0) sec APTT 28.2 (22.0-30.0) sec Lipids 05/09/18 Range/Units 08:10 Triglycerides 129 (<150) mg/dL Cholesterol 150 (<200) mg/dL HDL Cholesterol 68 H (40-60) mg/dL Comprehensive Metabolic Panel 05/09/18 Range/Units 08:10 Sodium 123 L (137-145) mmol/L Potassium 3.6 (3.5-5.1) mmol/L Chloride 93 L (98-107) mmol/L Carbon Dioxide 18 L (22-30) mmol/L BUN 29 H (9-20) mg/dL Creatinine 2.05 H (0.66-1.25) mg/dL Glucose 94 (74-99) mg/dL Calcium 9.6 (8.4-10.2) mg/dL AST 26 (17-59) U/L ALT 26 (21-72) U/L Alkaline Phosphatase 119 (38-126) U/L Total Protein 7.0 (6.3-8.2) g/dL Albumin 3.9 (3.5-5.0) g/dL Current Medications Generic Name Dose Route Start Last Admin Trade Name Freq PRN Reason Stop Dose Admin Albuterol Sulfate 2.5 mg 05/09/18 11:23 Ventolin Nebulized INHALATION RT-Q6H PRN Shortness of breath Aspirin 325 mg 05/10/18 09:00 Aspirin PO DAILY [facility] Atorvastatin Calcium 80 mg 05/09/18 21:00 05/09/18 19:59 Lipitor PO Not Given HS [facility] Budesonide/Formoterol Fumarate 2 puff 05/09/18 20:00 05/09/18 20:59 Symbicort 160-4.5 Mcg Inhaler INHALATION 2 puff RT-BID MARTI Administration Folic Acid 1 mg 05/10/18 12:00 Folic Acid PO DAILY@1200 [facility] Gabapentin 100 mg 05/09/18 16:00 05/09/18 19:59 Neurontin PO Not Given TID [facility] Hydromorphone HCl 0.5 mg 05/09/18 09:28 05/10/18 06:20 Dilaudid IVP 0.5 mg Q4HR PRN Administration Pain Sodium Chloride 1,000 mls @ 125 mls/hr 05/09/18 11:30 05/10/18 03:13 Saline 0.9% IV 125 mls/hr .Q8H [facility] Administration Metoclopramide HCl 5 mg 05/09/18 12:30 05/10/18 04:46 Reglan PO Not Given AC-TID [facility] Nitroglycerin 1 inch 05/09/18 12:00 05/10/18 04:46 Nitro-Bid Oint TOPICAL Not Given Q6HR [facility] Nitroglycerin 0.4 mg 05/09/18 09:26 Nitrostat SUBLINGUAL Q5M PRN Chest Pain Ondansetron HCl 4 mg 05/09/18 09:29 Zofran IVP Q6HR PRN Nausea And Vomiting Pantoprazole Sodium 40 mg 05/10/18 09:00 Protonix PO DAILY [facility] Sodium Bicarbonate 650 mg 05/09/18 21:00 05/09/18 19:59 Sodium Bicarbonate Tab PO Not Given BID [facility] Intake and Output 05/09/18 05/10/18 05/10/18 22:59 06:59 14:59 Intake Total 800 Output Total 50 250 Balance -50 550 Intake: Intake, IV Titration 800 Amount Sodium Chloride 0.9% 1, 800 000 ml @ 125 mls/hr IV . Q8H [facility] Rx#:[id number] Output: Urine 50 250 Other: Voiding Method Urinal Weight 68 kg 05/09/18 08:10 05/09/18 08:10 EKG Interpretations (text) EKG shows normal sinus rhythm with no acute changes. Assessment and Plan Plan: Assessment and plan #1 dizziness with associated syncope and fall. Evidence of left femoral neck fracture. #2 known history of coronary artery disease with prior stent placement last year [facility], exact details unavailable. Patient had been taking Plavix and aspirin at home. #3 paroxysmal atrial fibrillation #4 acute on chronic renal failure #5 hyperlipidemia #6 hypertension #7 hyperlipidemia #8 ileostomy secondary to colon surgery and severe diverticulitis #9 abnormality in troponin, with no typical rise and fall pattern, could represent a type II [place]. Cannot completely rule out acute coronary syndrome although patient denies having chest discomfort. EKG shows normal sinus rhythm with no acute changes. We will obtain a d-dimer. #10 hyponatremia Plan Echocardiogram with Doppler study has been requested. We will also obtain a d- dimer to rule out the possibility of pulmonary embolism. Patient denies any recent chest discomfort. We will also obtain records of the patient's stent placement that was performed last year [facility]. Decrease aspirin to 81 mg daily, obtain orthostatics every shift, continue to monitor for any tachycardia or bradycardia arrhythmias. Further recommendations to follow. DNP note has been reviewed, I agree with a documented findings and plan of care. Patient was seen and examined.
[2018-05-10] MEDS: SYMBICORT 160-4.5 MCG INHALER INHALATION SCH ×2 (08:56→20:22)
[2018-05-10] MEDS ORDERED: ASPIRIN 325 MG TAB PO SCH (09:00)
--- NOTE | 2018-05-10 09:11 | P.PN ---
Progress Note - Text Progress Note Date: 05/10/18 Patient is a 62-year-old male who is seeing than the bedside for follow-up evaluation for his normal left femoral neck fracture. Patient continues to have pain at the left hip with any movement of the left hip. He is remain nonweightbearing on left lower extremity. Patient was seen and examined by cardiology this morning in attempt to work on surgical clearance. He was being difficult with cardiology and would not answering questions appropriately. He feels he does not need surgical intervention and feels he could get better on his own. He has been frustrated with his overall treatment over the past year and a half. He states he has a colostomy bag in place and was planning to have the colostomy bag discontinued but was unable to get clearance from a cardiology standpoint. He does have a history of recent cardiac stenting and is on Plavix. Cardiology is currently obtaining information on his recent stent placement. Cardiology is also planning for echocardiogram. During his presentation to the emergency department he did show elevated troponin level 1.2. Patient states he has not seen x-ray imaging to verify his fracture. Nursing was able to bring a computer to the bedside at which time x-ray of the pelvis and the patient was shown x-ray imaging which showed evidence of left femoral neck fracture. Patient is currently nothing by mouth status. Cardiology does not feel patient can be cleared for surgical intervention today but will keep us posted on his clearance status. After prolonged discussion with the patient he did apologize for his treatment of cardiology and states he would be willing to proceed forward with medical clearance in anticipation for surgical intervention at his left hip. Patient states he does have difficulty with urination following bladder injury during surgical intervention of bowel resection/colostomy which required further surgical intervention. Patient has been a poor historian at the bedside in regards to the timeline of his cardiac stent placement but ER documentation states stents replaced approximately [address] [facility]. Physical exam: Patient is awake, alert, and oriented 3 Vital signs stable Good chest excursion with deep inspiration and expiration Evidence of colostomy bag intact over the left lower abdomen Left lower extremity is shortened and externally rotated Pain with palpation of the left hip Significant pain with internal and external rotation of the left hip No pain with internal and external rotation of the right hip Neurovascularly intact bilateral lower extremities Dorsiflexion, plantarflexion, and extensor hallucis longus positive sustained bilaterally Calves are soft and supple; No signs or symptoms of DVT; No calf pain Pertinent studies: X-ray of the left hip and pelvis taken on 05/09/2018: Impacted left transcervical femoral neck fracture; 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 Patient has evidence of left femoral neck fracture. Patient is unable to ambulate due to left femoral neck fracture. A long discussion was had with the patient in regards to his prolonged recovery in regards to his left femoral neck fracture if he undergoes surgical intervention versus if he would avoid surgical intervention. We discussed he'll most likely remain bedridden and unable to ambulate the rest of his life without undergoing surgical intervention at the left hip. We discussed the plan for one surgical intervention at the left hip and not planning for further surgical intervention of the left hip in the future. He has a significant cardiac history including recent cardiac stent placement, atrial fibrillation, and is currently on Plavix. Patient was seen and examined by cardiology this morning and the patient was difficult during examination. Cardiology is currently planning to obtain further information regards his cardiac stent placing and will also plan to obtain an echocardiogram. Patient has continued to have some elevated troponin levels. Patient continues to be seen and examined by medicine as well. At this time, patient will most likely not be cleared for surgical intervention today, 05/10/2018. Patient states he is willing to proceed forward with surgical intervention and will be more cooperative with consultation and treatment by other medical providers. Once patient is able to obtain surgical clearance from a cardiac and medical standpoint, we will plan to proceed forward with surgical intervention. The proposed surgical intervention is a left hip hemiarthroplasty to be performed in the operating room by Dr. Carlton Chowdhury. X-ray imaging was reviewed with the patient and he is in agreement that his left hip fracture appears different than his right hip which does not currently have a fracture. Patient is very frustrated overall with his overall medical treatment and care on the past year and a half in regards to his bowel, colostomy bag, bladder, and heart. He has undergone multiple surgical interventions at a different facility/facilities. We discussed in significant detail we are not planning surgical intervention in guard to those other medical conditions and are currently only planning for treatment in regards to his left hip. 2. Patient will continue to be seen and examined by medicine and cardiology and will provide further evaluation in attempt for obtaining surgical clearance
[2018-05-10 10:27] LABS: Calcium 8.9 mg/dL (8.4-10.2); Potassium 4.2 mmol/L (3.5-5.1)
[2018-05-10 10:32] LABS: Anisocytosis Slight; HCT 35.9 % (39.0-53.0); MCH 36.1 pg (25.0-35.0); MCHC 33.5 g/dL (31.0-37.0); MCV 107.5 fL (80.0-100.0); Macrocytosis Marked; Platelet Count 173 k/uL (150-450); RBC 3.34 m/uL (4.30-5.90); RDW 17.3 % (11.5-15.5); WBC 9.6 k/uL (3.8-10.6)
[2018-05-10] MEDS: SODIUM BICARBONATE TAB 650 MG TAB PO SCH ×2 (10:51→20:10)
[2018-05-10] MEDS: FOLIC ACID 1 MG TAB PO SCH (10:51)
[2018-05-10] MEDS: GABAPENTIN 100 MG CAP PO SCH ×3 (10:51→20:11)
[2018-05-10] MEDS: PANTOPRAZOLE 40 MG TABLET PO SCH (10:51)
--- NOTE | 2018-05-10 11:59 | ECHOF ---
Referral Reason:pre op clearance MEASUREMENTS -------- HEIGHT: 185.4 cm WEIGHT: 67.6 kg BP: 108/72 RVIDd: 2.4 cm (< 3.3) IVSd: 1.0 cm (0.6 - 1.1) LVIDd: 2.3 cm (3.9 - 5.3) LVPWd: 1.2 cm (0.6 - 1.1) IVSs: 1.4 cm LVIDs: 1.3 cm LVPWs: 1.8 cm Ao Diam: 3.6 cm (2.0 - 3.7) AV Cusp: 2.0 cm (1.5 - 2.6) LA Diam: 3.3 cm (2.7 - 3.8) MV EXCURSION: 18.395 mm (> 18.000) MV EF SLOPE: 184 mm/s (70 - 150) EPSS: 0.8 cm MV E Otoniel: 0.63 m/s MV DecT: 238 ms MV A Otoniel: 0.73 m/s MV E/A Ratio: 0.86 RAP: 5.00 mmHg RVSP: 26.58 mmHg FINDINGS -------- Sinus rhythm. This was a technically difficult study with suboptimal apical views. Pt unable to turn due to hip f x. The left ventricular size is normal. Left ventricular wall thickness is normal. Overall left vent ricular systolic function is normal with, an EF between 55 - 60 %. The right ventricle is normal in size. The left atrium is normal in size. The right atrial size is normal. The aortic valve is trileaflet and appears structurally normal. The mitral valve is normal. There is trace mitral regurgitation. Mild tricuspid regurgitation present. There is no evidence of pulmonary hypertension. The right v entricular systolic pressure, as measured by Doppler, is 26.58mmHg. The pulmonic valve was not well visualized. There is no pulmonic regurgitation present. The aortic root size is normal. IVC Not well visulized. There is no pericardial effusion. CONCLUSIONS -------- 1. Sinus rhythm. 2. This was a technically difficult study with suboptimal apical views. 3. Pt unable to turn due to hip fx. 4. The left ventricular size is normal. 5. Left ventricular wall thickness is normal. 6. Overall left ventricular systolic function is normal with, an EF between 55 - 60 %. 7. The left atrium is normal in size. 8. The aortic valve is trileaflet and appears structurally normal. 9. There is trace mitral regurgitation. 10. Mild tricuspid regurgitation present. 11. There is no evidence of pulmonary hypertension. 12. The pulmonic valve was not well visualized. 13. There is no pulmonic regurgitation present. 14. The aortic root size is normal. 15. IVC Not well visulized. 16. There is no pericardial effusion. JACK FRAME TENDER: Erin Umaña RDCS
--- NOTE | 2018-05-10 12:25 | P.PN ---
Subjective Patient complaining of pain in the left hip Patient has a few about getting surgery done. Had a long discussion about it Is also urinary incontinent no chest pain racing heart, no cough or shortness of breath, no abdominal pain Objective - Vital Signs Vital signs: Vital Signs Temp 98.3 F 05/10/18 04:00 Pulse 88 05/10/18 09:07 Resp 18 05/10/18 04:00 BP 108/72 05/10/18 04:00 Pulse Ox 91 L 05/10/18 04:00 Intake & Output 05/09/18 05/10/18 05/10/18 18:59 06:59 18:59 Intake Total 735 800 Output Total 300 300 Balance 735 500 -300 Weight 68.039 kg 68 kg 68 kg Intake: Intake, IV Titration 375 800 Amount Sodium Chloride 0.9% 1, 375 800 000 ml @ 125 mls/hr IV . Q8H MARTI Rx#:[id number] Oral 360 Output: Urine 300 300 Other: Voiding Method Urinal # Voids 1 - Exam On exam, alert and oriented x3. HEENT: Conjunctivae normal. eyes normal. NECK: No JVD. No thyroid enlargement. No LNs CARDIOVASCULAR: S1, S2 muffled. No murmur RESPIRATION: Breath sounds diminished in the bases. No rhonchi or crackles. No bronchial breathing. ABDOMEN: Soft, nontender . No guarding. no masses palpable. No ascites, No hepatosplenomegaly.Bowel sounds heard. LEGS: Pain left hip Cranial nerves 2-12 grossly normal. Moves all 4 limbs. No focal deficits. No sensory deficit. No signs of cerebellar dysfucntion. Skin: no ulcer no rash - Labs CBC & Chem 7: 05/10/18 10:04 05/10/18 10:04 Labs: Abnormal Lab Results - Last 24 Hours (Table) 05/09/18 05/09/18 05/09/18 Range/Units 03:20 08:10 12:05 RBC (4.30-5.90) m/uL Hgb (13.0-17.5) gm/dL Hct (39.0-53.0) % MCV (80.0-100.0) fL MCH (25.0-35.0) pg RDW (11.5-15.5) % D-Dimer (<0.60) mg/L FEU Sodium (137-145) mmol/L Carbon Dioxide (22-30) mmol/L BUN (9-20) mg/dL Creatinine (0.66-1.25) mg/dL Troponin I 0.909 H* (0.000-0.034) ng/mL HDL Cholesterol 68 H (40-60) mg/dL Urine Protein Trace H (Negative) Ur Leukocyte Esterase Trace H (Negative) Urine WBC 9 H (0-5) /hpf Hyaline Casts 3 H (0-2) /lpf Urine Mucus Rare H (None) /hpf 05/09/18 05/10/18 05/10/18 Range/Units 20:26 10:04 10:04 RBC 3.34 L (4.30-5.90) m/uL Hgb 12.0 L D (13.0-17.5) gm/dL Hct 35.9 L (39.0-53.0) % MCV 107.5 H (80.0-100.0) fL MCH 36.1 H (25.0-35.0) pg RDW 17.3 H (11.5-15.5) % D-Dimer 1.50 H (<0.60) mg/L FEU Sodium (137-145) mmol/L Carbon Dioxide (22-30) mmol/L BUN (9-20) mg/dL Creatinine (0.66-1.25) mg/dL Troponin I 1.030 H* (0.000-0.034) ng/mL HDL Cholesterol (40-60) mg/dL Urine Protein (Negative) Ur Leukocyte Esterase (Negative) Urine WBC (0-5) /hpf Hyaline Casts (0-2) /lpf Urine Mucus (None) /hpf 05/10/18 Range/Units 10:04 RBC (4.30-5.90) m/uL Hgb (13.0-17.5) gm/dL Hct (39.0-53.0) % MCV (80.0-100.0) fL MCH (25.0-35.0) pg RDW (11.5-15.5) % D-Dimer (<0.60) mg/L FEU Sodium 126 L (137-145) mmol/L Carbon Dioxide 19 L (22-30) mmol/L BUN 26 H (9-20) mg/dL Creatinine 1.62 H (0.66-1.25) mg/dL Troponin I (0.000-0.034) ng/mL HDL Cholesterol (40-60) mg/dL Urine Protein (Negative) Ur Leukocyte Esterase (Negative) Urine WBC (0-5) /hpf Hyaline Casts (0-2) /lpf Urine Mucus (None) /hpf Assessment and Plan Assessment: - Left hip fracture - AK I on CK D - Hyponatremia probably because of dehydration - History of A. fib - History of hypertension - History of COPD - History of CAD with stent placement as per patient 0 history of diverticulitis status post bowel resection and ostomy bag Plan -Sodium appear went from 122-126 - Kidney functions also improving. Baseline creatinine 1.3-1.4. Creatinine now is 1.62. We'll continue to monitor and continue IV fluids - Cardiology working on the patient. Getting previous records - Orthopedic surgery consulted. Awaiting clearance from cardiology - Continue to monitor the patient - Patient initially reluctant to get the surgery done . Explained To him the risks and benefits saying that he might not be able to walk with a broken hip. He is willing to undergo surgery now - We'll follow up
[2018-05-10] MEDS: ASPIRIN 81 MG PO SCH (17:00)
[2018-05-10] MEDS: ATORVASTATIN 80 MG TAB PO SCH (20:10)
[2018-05-11] MEDS: HYDROmorphone 0.5 MG/0.5 ML SYRINGE IVP PRN ×3 (00:16→12:08)
[2018-05-11] MEDS: SODIUM CHLORIDE 0.9% 1,000 ML IV SCH ×3 (02:44→17:15)
[2018-05-11] MEDS: METOCLOPRAMIDE 5 MG TAB PO SCH ×3 (06:16→17:38)
[2018-05-11 07:04] LABS: Anisocytosis Slight; HCT 35.3 % (39.0-53.0); HGB 11.5 gm/dL (13.0-17.5); MCH 36.4 pg (25.0-35.0); MCHC 32.6 g/dL (31.0-37.0); MCV 111.5 fL (80.0-100.0); Macrocytosis Marked; Mean Platelet Volume 6.4; Platelet Count 176 k/uL (150-450); RBC 3.16 m/uL (4.30-5.90); RDW 18.2 % (11.5-15.5); WBC 10.3 k/uL (3.8-10.6)
[2018-05-11 07:14] LABS: Calcium 8.8 mg/dL (8.4-10.2); Potassium 3.7 mmol/L (3.5-5.1)
[2018-05-11] MEDS: SYMBICORT 160-4.5 MCG INHALER INHALATION SCH ×2 (08:51→20:18)
[2018-05-11] MEDS: ASPIRIN 81 MG PO SCH (11:54)
[2018-05-11] MEDS: SODIUM BICARBONATE TAB 650 MG TAB PO SCH ×2 (11:54→21:43)
[2018-05-11] MEDS: PANTOPRAZOLE 40 MG TABLET PO SCH (11:54)
[2018-05-11] MEDS: GABAPENTIN 100 MG CAP PO SCH ×3 (11:54→21:43)
[2018-05-11] MEDS: FOLIC ACID 1 MG TAB PO SCH (11:55)
[2018-05-11] MEDS ORDERED: IV FLUID CONTINUATION 1,000 ML IV ONE (12:45)
--- NOTE | 2018-05-11 14:09 | P.PN ---
Subjective Progress Note Date: 05/11/18 This is a 62-year-old gentleman who is a very poor historian, and quite abrasive and a propped. Not he could answer any questions. He apparently presented to the hospital after experiencing a fall at home. He states that prior to his fall he did feel dizzy. Patient does have a history of coronary artery disease with prior stent placement last year in November at [facility], history of paroxysmal atrial fibrillation, hypertension, COPD, hyperlipidemia, nicotine dependence, prior bowel resection. Presented to the hospital after experiencing a presyncopal episode with fall. He did incur a hip fracture, orthopedics is recommending surgery, for this reason a cardiology consultation was requested. Patient was also noted to have abnormality in troponin. Chest x-ray shows COPD with no acute cardiopulmonary process. Left suprahilar nodularity suspected. Hip and pelvis x-ray showed an impacted left trans- cervical for moral neck fracture. EKG shows a normal sinus rhythm with no acute changes. Blood pressure 110/60 with a heart rate in the 70s on arrival, blood pressure this morning 108/70 with a heart rate in the 80s, 91% on room air. White blood cell count 13.8, hemoglobin 15.5, platelet count 278. Sodium 123, potassium 3.6, BUN 29 and creatinine 2.0. Troponin 1.2, 0.9, 1.0. Patient is quite belligerent at the time of my examination, actually refusing to answer questions, at this point in time he states he is not interested in having any surgery or speaking to any physicians for healthcare providers. He wants a coffee and he wants to watch TV. 05/11/2018 The patient's echocardiogram with Doppler study was reviewed which revealed a normal left ventricular systolic function. Patient is refusing this morning to take any of his medications. He is scheduled to undergo orthopedic surgery for his hip today. From cardiology's perspective he is considered a moderate to high risk, we will continue to follow him during the duration of his stay here. Objective - Vital Signs Vital signs: Vital Signs Temp 97.4 F L 05/11/18 12:46 Pulse 82 05/11/18 12:46 Resp 18 05/11/18 12:46 BP 101/66 05/11/18 12:46 Pulse Ox 97 05/11/18 12:46 Intake & Output 05/10/18 05/11/18 05/11/18 18:59 06:59 18:59 Intake Total 240 770 Output Total 825 1050 Balance -585 -280 Weight 68 kg 66 kg Intake: Intake, IV Titration 650 Amount Sodium Chloride 0.9% 1, 650 000 ml @ 125 mls/hr IV . Q8H MARTI Rx#:[id number] Oral 240 120 Output: Urine 600 1050 Stool 225 Other: Voiding Method Indwelling Catheter Indwelling Catheter Indwelling Catheter # Voids 1 - Exam PHYSICAL EXAMINATION: GENERAL: 62-year-old gentleman in no acute distress at the time of my examination HEENT: Head is atraumatic, normocephalic. Pupils equal, round. Sclera anicteric. Conjunctiva are clear. Mucous membranes of the mouth are moist. Neck is supple. There is no elevated jugular venous pressure. No carotid bruit is heard. HEART EXAMINATION: Heart S1, S2 normal. No murmur or gallop heard. CHEST EXAMINATION: Lungs are clear to auscultation and precussion. No chest wall tenderness is noted on palpation or with deep breathing. ABDOMEN: Soft, nontender. Bowel sounds are heard. No organomegaly noted. EXTREMITIES: 2+ peripheral pulses with no evidence of peripheral edema and no calf tenderness noted. NEUROLOGIC patient is awake, alert and oriented X3. . - Labs CBC & Chem 7: 05/11/18 06:08 05/11/18 06:08 Labs: Abnormal Lab Results - Last 24 Hours (Table) 05/11/18 05/11/18 Range/Units 06:08 06:08 RBC 3.16 L (4.30-5.90) m/uL Hgb 11.5 L (13.0-17.5) gm/dL Hct 35.3 L (39.0-53.0) % MCV 111.5 H (80.0-100.0) fL MCH 36.4 H (25.0-35.0) pg RDW 18.2 H (11.5-15.5) % Sodium 130 L (137-145) mmol/L Carbon Dioxide 18 L (22-30) mmol/L Creatinine 1.35 H (0.66-1.25) mg/dL Assessment and Plan Plan: Assessment and plan #1 dizziness with associated syncope and fall. Evidence of left femoral neck fracture. #2 known history of coronary artery disease with prior stent placement last year [facility], exact details unavailable. Patient had been taking Plavix and aspirin at home. #3 paroxysmal atrial fibrillation #4 acute on chronic renal failure #5 hyperlipidemia #6 hypertension #7 hyperlipidemia #8 ileostomy secondary to colon surgery and severe diverticulitis #9 abnormality in troponin, with no typical rise and fall pattern, could represent a type II OK. Cannot completely rule out acute coronary syndrome although patient denies having chest discomfort. EKG shows normal sinus rhythm with no acute changes. We will obtain a d-dimer. #10 hyponatremia Plan Echocardiogram with Doppler study was reviewed which revealed a normal left ventricular systolic function. Patient may go for hip surgery today understanding that he has a medium to high risk overall. He is refusing all of his medications today. We will continue to follow. DNP note has been reviewed, I agree with a documented findings and plan of care. Patient was seen and examined.
[2018-05-11] MEDS ORDERED: DIAZEPAM 5 MG TAB PO PRN (14:34)
[2018-05-11] MEDS ORDERED: HYDROcodone/APAP 5-325MG 1 EACH TAB PO PRN (14:34)
[2018-05-11] MEDS ORDERED: HYDROmorphone 1 MG/ML 1 ML SYRINGE IVP PRN (14:34)
[2018-05-11] MEDS ORDERED: hydrOXYzine PAMOATE 25 MG CAP PO PRN (14:34)
[2018-05-11] MEDS ORDERED: NALOXONE 0.4 MG/ML 1 ML VIAL IV PRN (14:34)
[2018-05-11] MEDS ORDERED: MAGNESIUM HYDROXIDE 2,400 MG/10 ML CUP PO PRN (14:34)
[2018-05-11] MEDS ORDERED: fentaNYL (PF) 50 MCG/ML 2 ML AMP ONE (14:55)
[2018-05-11] MEDS ORDERED: LIDOCAINE 1% INJ 10MG/ML (20 ML MDV) ONE (14:55)
[2018-05-11] MEDS ORDERED: PHENYLEPHRINE-0.9% NACL SYG 1 MG/10 ML SYRINGE ONE (14:55)
[2018-05-11] MEDS ORDERED: PROPOFOL 10 MG/ML 20 ML VIAL IV ONE (14:55)
[2018-05-11] MEDS: ceFAZolin IN SWFI 2 GM/20 ML SYRINGE IVP SCH (14:55)
[2018-05-11] MEDS ORDERED: ceFAZolin 1,000 MG in SODIUM CHLORIDE 0.9% 1,000 ML IRRIGATION ONE (15:29)
--- NOTE | 2018-05-11 15:46 | P.OP ---
Date of Procedure: 05/11/18 Preoperative Diagnosis: Subcapital fracture left hip Postoperative Diagnosis: Subcapital fracture left hip Procedure(s) Performed: Left hip hemiarthroplasty Implants: Reilly and nephew Polarstem size 5 standard Reilly & Nephew tandem unipolar, 52 mm Reilly & Nephew tandem unipolar 12/14 taper sleeve, +0 mm All components were press-fit. Anesthesia: spinal Surgeon: Cedric Reed Platen Drier Operator #1: Marline Campos Estimated Blood Loss (ml): 50 Pathology: other (Femoral head) Condition: stable Disposition: PACU Indications for Procedure: This is a 62-year-old gentleman that fell and sustained a subcapital fracture of his left hip. He was originally seen by my associate Dr. Chowdhury, but due to the inability of the patient to be medically cleared was unable to perform the procedure. I have seen and evaluated the patient and discussed the surgical and nonsurgical treatment options with him at length, recommended a left hip hemiarthroplasty. Informed consent was obtained. Operative Findings: The operative findings are consistent with a subcapital fracture left hip Description of Procedure: Patient was seen and evaluated in the preoperative area, consent was reviewed and the operative site was marked with a skin marker. Patient was then brought to the operating room and given 2 g of Ancef intravenously. A spinal anesthetic was administered by the anesthesia department. Patient was then placed in a lateral decubitus position and held with a Montral hip positioner. The bony prominences were well-padded and an axillary roll was placed. The hip was then prepped and draped in the usual sterile fashion. A universal timeout was then performed which confirmed the patient's name, surgical site, ALLERGIES, and procedure. A standard anterolateral approach the hip was performed. Skin and subcutaneous tissues were sharply incised with an incision centered over the tip of the greater trochanter. The incision was carefully dissected down to the fascia. The fascia was then split in line with skin incision and a Charnley retractor was gently placed. The abductors were then identified, and the anterior one third of the abductors were released off the trochanter and one large sleeve. The fracture hematoma was evacuated and the proximal femur was exposed by externally rotating the femur. The fracture site was readily visualized. Next , using an osteotomy guide, the proximal femur was osteotomized at the appropriate level of the above the lesser trochanter. This bone was then removed. Attention was then turned to the femoral head. Using a corkscrew, the femoral head was removed from the acetabulum without incident. The acetabulum was inspected, and found to have no significant arthrosis. Femoral head was then measured. Attention was then redirected to the femur. Proximal femur was re-exposed and a box osteotome was used to lateralize the proximal femur. A aging box hand was then used to locate the femoral canal. Sequential broaching was then performed to the appropriate size. The calcar was then planed and trial head and neck were placed. The hip was then gently reduced. Leg lengths were checked and found to be equal. Hip was then taken through a full range of motion was stable throughout. The hip was then gently dislocated with the aid of a bone hook. The trial head and neck were then removed. The femoral broach was then inspected and found to have a secure fit. The broach was then removed. The hip was then copiously irrigated with antibiotic solution with a pulse lavage. Components were then opened and the femoral stem was then impacted into the proximal femur. The trunnion was cleaned and dried, and the femoral head and neck were then impacted. Hip was again gently reduced. Again leg lengths were checked and found to be equal, and the hip was taken through a full range of motion and found to be stable. The hip was again irrigated with pulsatile lavage, then followed by the Irrrisept solution. The abductors were then repaired through drill holes to the bone to the greater trochanter, utilizing #5 Ethibond suture. Next the fascia was repaired with #2 strata fix suture. The subcutaneous tissue was then repaired with 3-0 Vicryl. The subcuticular tissue was then repaired with 3-0 strata fix suture. Skin was then closed with Dermabond tape. A sterile dressing was then applied and the patient was transported to the recovery room in stable condition. Platen Drier Operator GOMEZ Porter was required due to the complexity of surgery the need for skilled therapy administrative assistant. She assisted with positioning the patient , draping the patient, retraction during the surgery, and closure of the wound.
[2018-05-11] MEDS ORDERED: LACTATED RINGERS 1,000 ML IV ONE (16:01)
[2018-05-11] MEDS ORDERED: HYDROmorphone 1 MG/ML 1 ML SYRINGE IVP ONE (16:19)
--- NOTE | 2018-05-11 17:05 | XR ---
PROCEDURE: XR Hip Limited LT - 1V DATE AND TIME: 05/11/2018 4:59 PM CLINICAL INDICATION: PHH; Status post hip surgery, assess surgical alignment TECHNIQUE: AP view COMPARISON: None FINDINGS: Left hip prosthesis appears in anatomic positioning and alignment. Postprocedural changes a ppreciated, but no unexpected findings. IMPRESSION: LEFT HIP POST OP AP VIEW.
[2018-05-11] MEDS: HYDROcodone/APAP 5-325MG 1 EACH TAB PO PRN (19:20)
[2018-05-11] MEDS: SENNOSIDES-DOCUSATE SODIUM 1 EACH TAB PO SCH (21:43)
[2018-05-11] MEDS: ATORVASTATIN 80 MG TAB PO SCH (21:43)
[2018-05-12] MEDS: HYDROcodone/APAP 5-325MG 1 EACH TAB PO PRN ×2 (00:54→08:33)
[2018-05-12] MEDS ORDERED: ceFAZolin IN SWFI 2 GM/20 ML SYRINGE IVP SCH (01:00)
[2018-05-12] MEDS: ceFAZolin IN SWFI 2 GM/20 ML SYRINGE IVP SCH (01:46)
[2018-05-12] MEDS: SODIUM CHLORIDE 0.9% 1,000 ML IV SCH ×2 (05:04→20:31)
[2018-05-12 08:25] LABS: Anisocytosis Slight; Basophils % (A) 0 %; Eosinophils # (A) 0.1 k/uL (0-0.7); Eosinophils % (A) 1 %; HCT 34.9 % (39.0-53.0); HGB 11.2 gm/dL (13.0-17.5); Lymphocytes # (A) 0.5 k/uL (1.0-4.8); Lymphocytes % (A) 3 %; MCH 35.9 pg (25.0-35.0); MCHC 32.1 g/dL (31.0-37.0); MCV 111.8 fL (80.0-100.0); Macrocytosis Marked; Monocytes # (A) 1.2 k/uL (0-1.0); Monocytes % (A) 7 %; Neutrophils # (A) 15.1 k/uL (1.3-7.7); Neutrophils % (A) 88 %; Platelet Count 197 k/uL (150-450); RBC 3.12 m/uL (4.30-5.90); RDW 18.1 % (11.5-15.5); WBC 17.1 k/uL (3.8-10.6)
[2018-05-12] MEDS: METOCLOPRAMIDE 5 MG TAB PO SCH ×3 (08:25→15:56)
[2018-05-12] MEDS: PANTOPRAZOLE 40 MG TABLET PO SCH (08:33)
[2018-05-12] MEDS: SODIUM BICARBONATE TAB 650 MG TAB PO SCH ×2 (08:33→21:07)
[2018-05-12] MEDS: FOLIC ACID 1 MG TAB PO SCH (08:34)
[2018-05-12] MEDS: ASPIRIN 81 MG PO SCH (08:34)
[2018-05-12] MEDS: CLOPIDOGREL 75 MG TAB PO SCH (08:34)
[2018-05-12] MEDS: GABAPENTIN 100 MG CAP PO SCH ×3 (08:34→21:07)
--- NOTE | 2018-05-12 08:46 | P.PN ---
Subjective Progress Note Date: 05/12/18 This is a 62-year-old male who is status post left hip hemiarthroplasty. This is postoperative day #1 and patient is seen and evaluated at bedside with Dr. Cedric Reed. Patient does complain of pain in the left hip today and states that he has not been out of bed yet. Patient denies any fever/chills, numbness, weakness, tingling, abdominal pain, shortness of breath or chest pain. Objective - Vital Signs Vital signs: Vital Signs Temp 97.7 F 05/11/18 23:35 Pulse 98 05/11/18 23:35 Resp 17 05/11/18 23:35 BP 105/67 05/11/18 23:35 Pulse Ox 98 05/12/18 07:14 Intake & Output 05/11/18 05/12/18 05/12/18 18:59 06:59 18:59 Intake Total 2246 210 Output Total 180 600 Balance 2066 -390 Intake: IV 1251 Intake, IV Titration 875 210 Amount Sodium Chloride 0.9% 1, 875 000 ml @ 125 mls/hr IV . Q8H [facility] Rx#:[id number] Sodium Chloride 0.9% 1, 210 000 ml @ 70 mls/hr IV . [id number] [facility] Rx#:[id number] Oral 120 Output: Urine 130 500 Stool 100 Estimated Blood Loss 50 Other: Voiding Method Indwelling Catheter Indwelling Catheter - Exam Vital signs are stable. Patient is in no acute distress and is alert and oriented 3. Calf is soft and nontender to palpation. Dressing is clean, dry, and intact. Patient has full foot and ankle motion without pain or difficulty. Neurovascular status and circulatory status are intact. - Labs CBC & Chem 7: 05/12/18 07:29 05/11/18 06:08 Labs: Abnormal Lab Results - Last 24 Hours (Table) 05/12/18 Range/Units 07:29 WBC 17.1 H (3.8-10.6) k/uL RBC 3.12 L (4.30-5.90) m/uL Hgb 11.2 L (13.0-17.5) gm/dL Hct 34.9 L (39.0-53.0) % MCV 111.8 H (80.0-100.0) fL MCH 35.9 H (25.0-35.0) pg RDW 18.1 H (11.5-15.5) % Assessment and Plan Assessment: Chronic kidney disease History of atrial fibrillation History of hypertension History of COPD History of coronary artery disease History of diverticulitis with bowel resection and colostomy bag (1) S/P hip hemiarthroplasty Current Visit: Yes Status: Acute Code(s): Z96.649 - PRESENCE OF UNSPECIFIED ARTIFICIAL HIP JOINT SNOMED Code(s): 112006891 (2) Fall Current Visit: Yes Status: Acute Code(s): W19.XXXA - UNSPECIFIED FALL, INITIAL ENCOUNTER SNOMED Code(s): 8377396 (3) Hip fracture, left Current Visit: Yes Status: Acute Code(s): S72.002A - FRACTURE OF UNSP PART O F NECK OF LEFT FEMUR, INIT SNOMED Code(s): 184346760 Plan: Continue routine postop care and pain control. Continue hip precautions with abductor pillow Continue anticoagulation with aspirin and Plavix. Weightbearing as tolerated with a walker. Leave dressing in place for 10 days. Appreciate input from medicine. Awaiting discharge to rehab.
[2018-05-12] MEDS: HYDROmorphone 0.5 MG/0.5 ML SYRINGE IVP PRN ×3 (10:28→20:45)
[2018-05-12] MEDS: SYMBICORT 160-4.5 MCG INHALER INHALATION SCH ×2 (11:17→19:11)
--- NOTE | 2018-05-12 14:21 | P.PN ---
Subjective This is a 62 year old male past medical history significant for coronary artery disease s/p stent placement in November 2017 at [facility] in [place], paroxysmal atrial fibrillation, hypertension, COPD, dyslipidemia, daily alcohol abuse and chronic nicotine dependence. He is non- compliant with his medications. Echocardiogram obtained on this admission reveals preserved LV systolic function with EF 55-60%. He underwent left hip hemiarthroplasty yesterday with Dr. Reed. He is seen and examined laying in flat in bed in no acute distress. He denies symptoms of chest pain, shortness of breath, dizziness or palpitations. Blood pressure 103/67 heart rate 108 afebrile maintaining oxygen saturation on room air. Currently maintained on aspirin 81 mg daily, atorvastatin 80 mg daily and Plavix 75 mg daily. GENERAL: Well-appearing, well-nourished and in no acute distress. NECK: Supple without JVD or thyromegaly. LUNGS: Breath sounds clear to auscultation bilaterally. Respiration equal and unlabored. No wheezes, rales or rhonchi. HEART: Regular rate and rhythm without murmurs, rubs or gallops. S1 and S2 heard. EXTREMITIES: Normal range of motion, no edema. No clubbing or cyanosis. Peripheral pulses intact. ASSESSMENT Dizziness with syncope and fall with left femoral neck fracture POD #1 Troponin abnormality, no typical rise and fall pattern. No EKG changes or symptoms of angina. Leukocytosis Anemia, s/p surgical intervention History of coronary artery disease s/p recent stent placement, exact details unknown. Patient states he was on brillinta but has been cutting his dose in half due to dizziness. Dyslipidemia Paroxysmal atrial fibrillation, currently maintaining sinus mechanism. 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 Continue current medical regimen. Tobacco and alcohol cessation recommended. We will continue to follow as needed, please feel free to call with further questions or concerns. Nurse Practitioner note has been reviewed, I agree with a documented findings and plan of care. Patient was seen and examined. Objective - Vital Signs Vital signs: Vital Signs Temp 97.9 F 05/12/18 08:43 Pulse 108 H 05/12/18 08:43 Resp 16 05/12/18 08:43 BP 103/67 05/12/18 08:43 Pulse Ox 97 05/12/18 08:43 Intake & Output 05/11/18 05/12/18 05/12/18 18:59 06:59 18:59 Intake Total 2246 210 120 Output Total 180 600 Balance 2066 -390 120 Intake: IV 1251 Intake, IV Titration 875 210 Amount Sodium Chloride 0.9% 1, 875 000 ml @ 125 mls/hr IV . Q8H [facility] Rx#:[id number] Sodium Chloride 0.9% 1, 210 000 ml @ 70 mls/hr IV . [id number] [facility] Rx#:[id number] Oral 120 120 Output: Urine 130 500 Stool 100 Estimated Blood Loss 50 Other: Voiding Method Indwelling Catheter Indwelling Catheter - Labs CBC & Chem 7: 05/12/18 07:29 05/11/18 06:08 Labs: Abnormal Lab Results - Last 24 Hours (Table) 05/12/18 Range/Units 07:29 WBC 17.1 H (3.8-10.6) k/uL RBC 3.12 L (4.30-5.90) m/uL Hgb 11.2 L (13.0-17.5) gm/dL Hct 34.9 L (39.0-53.0) % MCV 111.8 H (80.0-100.0) fL MCH 35.9 H (25.0-35.0) pg RDW 18.1 H (11.5-15.5) % Neutrophils # 15.1 H (1.3-7.7) k/uL Lymphocytes # 0.5 L (1.0-4.8) k/uL Monocytes # 1.2 H (0-1.0) k/uL
--- NOTE | 2018-05-12 15:58 | P.PN ---
Subjective Patient complaining of pain in the left hip Patient has a few about getting surgery done. Had a long discussion about it Is also urinary incontinent no chest pain racing heart, no cough or shortness of breath, no abdominal pain 05/12/2018 Status post left hip surgery Patient says that he's having pain in his left Also complains of pain in the abdomen while coughing Objective - Vital Signs Vital signs: Vital Signs Temp 97.9 F 05/12/18 08:43 Pulse 108 H 05/12/18 08:43 Resp 16 05/12/18 08:43 BP 103/67 05/12/18 08:43 Pulse Ox 97 05/12/18 08:43 Intake & Output 05/11/18 05/12/18 05/12/18 18:59 06:59 18:59 Intake Total 2246 210 440 Output Total 180 600 Balance 2066 -390 440 Intake: IV 1251 Intake, IV Titration 875 210 Amount Sodium Chloride 0.9% 1, 875 000 ml @ 125 mls/hr IV . Q8H [facility] Rx#:[id number] Sodium Chloride 0.9% 1, 210 000 ml @ 70 mls/hr IV . [id number] [facility] Rx#:[id number] Oral 120 240 Other 200 Output: Urine 130 500 Stool 100 Estimated Blood Loss 50 Other: Voiding Method Indwelling Catheter Indwelling Catheter Indwelling Catheter - Exam On exam, alert and oriented x3. HEENT: Conjunctivae normal. eyes normal. NECK: No JVD. No thyroid enlargement. No LNs CARDIOVASCULAR: S1, S2 muffled. No murmur RESPIRATION: Breath sounds diminished in the bases. No rhonchi or crackles. No bronchial breathing. ABDOMEN: Soft, tenderness in the abdomen mostly in the suprapubic area and around the colostomy site. No guarding. no masses palpable. No ascites, No hepatosplenomegaly.Bowel sounds heard. LEGS: Pain left hip Cranial nerves 2-12 grossly normal. Moves all 4 limbs. No focal deficits. No sensory deficit. No signs of cerebellar dysfucntion. Skin: no ulcer no rash - Labs CBC & Chem 7: 05/12/18 07:29 05/11/18 06:08 Labs: Abnormal Lab Results - Last 24 Hours (Table) 05/12/18 Range/Units 07:29 WBC 17.1 H (3.8-10.6) k/uL RBC 3.12 L (4.30-5.90) m/uL Hgb 11.2 L (13.0-17.5) gm/dL Hct 34.9 L (39.0-53.0) % MCV 111.8 H (80.0-100.0) fL MCH 35.9 H (25.0-35.0) pg RDW 18.1 H (11.5-15.5) % Neutrophils # 15.1 H (1.3-7.7) k/uL Lymphocytes # 0.5 L (1.0-4.8) k/uL Monocytes # 1.2 H (0-1.0) k/uL Assessment and Plan Assessment: - Left hip fracture - AK I on CK D - Hyponatremia probably because of dehydration - History of A. fib - History of hypertension - History of COPD - History of CAD with stent placement as per patient 0 history of diverticulitis status post bowel resection and ostomy bag Plan - Continue to monitor lites - Patient is having pain in his belly we'll order for CT abdomen pelvis - Pain control as per orthopedic surgery service - CT abdomen negative patient okay to be discharged when beds available Time with Patient: Less than 30
[2018-05-12] MEDS: ATORVASTATIN 80 MG TAB PO SCH (21:07)
[2018-05-12] MEDS: SENNOSIDES-DOCUSATE SODIUM 1 EACH TAB PO SCH (21:07)
[2018-05-13] MEDS: HYDROmorphone 0.5 MG/0.5 ML SYRINGE IVP PRN ×4 (00:03→21:25)
[2018-05-13] MEDS ORDERED: HYDROmorphone 0.5 MG/0.5 ML SYRINGE ONE (05:05)
[2018-05-13 08:06] LABS: Anisocytosis Slight; HCT 31.9 % (39.0-53.0); HGB 10.2 gm/dL (13.0-17.5); MCH 35.8 pg (25.0-35.0); MCHC 32.2 g/dL (31.0-37.0); MCV 111.4 fL (80.0-100.0); Macrocytosis Marked; Mean Platelet Volume 6.7; Platelet Count 200 k/uL (150-450); RBC 2.86 m/uL (4.30-5.90)
[2018-05-13 08:14] LABS: Calcium 8.3 mg/dL (8.4-10.2); Potassium 3.7 mmol/L (3.5-5.1)
[2018-05-13] MEDS: SYMBICORT 160-4.5 MCG INHALER INHALATION SCH ×2 (08:17→20:25)
[2018-05-13] MEDS ORDERED: HYDROcodone/APAP 7.5-325MG 1 EACH TAB PO PRN (08:36)
--- NOTE | 2018-05-13 08:36 | P.PN ---
Subjective Progress Note Date: 05/13/18 This is a 62-year-old male who is status post left hip hemiarthroplasty. This is postoperative day #2 and patient is seen and evaluated at bedside. Patient states that he does have pain in the left hip, but he was able to stand with physical therapy yesterday. Patient denies any fever/chills, numbness, weakness, tingling, abdominal pain, shortness of breath or chest pain. Objective - Vital Signs Vital signs: Vital Signs Temp 99.3 F 05/13/18 07:44 Pulse 84 05/13/18 07:44 Resp 14 05/13/18 07:44 BP 103/60 05/13/18 07:44 Pulse Ox 97 05/13/18 07:44 Intake & Output 05/12/18 05/13/18 05/13/18 18:59 06:59 18:59 Intake Total 640 560 Output Total 500 Balance 640 60 Intake: Intake, IV Titration 560 Amount Sodium Chloride 0.9% 1, 560 000 ml @ 70 mls/hr IV . [id number] [facility] Rx#:[id number] Oral 440 Other 200 Output: Urine 500 Other: Voiding Method Indwelling Catheter Indwelling Catheter - Exam Vital signs are stable. Patient is in no acute distress and is alert and oriented 3. Calf is soft and nontender to palpation. Dressing is clean, dry, and intact. Patient has full foot and ankle motion without pain or difficulty. Neurovascular status and circulatory status are intact. - Labs CBC & Chem 7: 05/13/18 07:10 05/13/18 07:10 Labs: Abnormal Lab Results - Last 24 Hours (Table) 05/12/18 05/13/18 05/13/18 Range/Units 07:29 07:10 07:10 WBC 17.1 H 15.0 H (3.8-10.6) k/uL RBC 3.12 L 2.86 L (4.30-5.90) m/uL Hgb 11.2 L 10.2 L (13.0-17.5) gm/dL Hct 34.9 L 31.9 L (39.0-53.0) % MCV 111.8 H 111.4 H (80.0-100.0) fL MCH 35.9 H 35.8 H (25.0-35.0) pg RDW 18.1 H 18.0 H (11.5-15.5) % Neutrophils # 15.1 H (1.3-7.7) k/uL Lymphocytes # 0.5 L (1.0-4.8) k/uL Monocytes # 1.2 H (0-1.0) k/uL Sodium 129 L (137-145) mmol/L Carbon Dioxide 19 L (22-30) mmol/L Calcium 8.3 L (8.4-10.2) mg/dL Assessment and Plan Assessment: Chronic kidney disease History of atrial fibrillation History of hypertension History of COPD History of coronary artery disease History of diverticulitis with bowel resection and colostomy bag (1) S/P hip hemiarthroplasty Current Visit: Yes Status: Acute Code(s): Z96.649 - PRESENCE OF UNSPECIFIED ARTIFICIAL HIP JOINT SNOMED Code(s): 230907091 (2) Fall Current Visit: Yes Status: Acute Code(s): W19.XXXA - UNSPECIFIED FALL, INITIAL ENCOUNTER SNOMED Code(s): 8104274 (3) Hip fracture, left Current Visit: Yes Status: Acute Code(s): S72.002A - FRACTURE OF UNSP PART OF NECK OF LEFT FEMUR, INIT SNOMED Code(s): 875748460 Plan: Continue routine postop care and pain control. Continue hip precautions with abductor pillow. Continue anticoagulation with aspirin and Plavix. Weightbearing as tolerated with a walker. Leave dressing in place for 10 days. Appreciate input from medicine. Awaiting discharge to rehab.
[2018-05-13] MEDS: ASPIRIN 81 MG PO SCH (09:30)
[2018-05-13] MEDS: SODIUM BICARBONATE TAB 650 MG TAB PO SCH ×2 (09:31→21:28)
[2018-05-13] MEDS: GABAPENTIN 100 MG CAP PO SCH ×3 (09:31→21:28)
[2018-05-13] MEDS: CLOPIDOGREL 75 MG TAB PO SCH (09:31)
[2018-05-13] MEDS: PANTOPRAZOLE 40 MG TABLET PO SCH (09:31)
[2018-05-13] MEDS: METOCLOPRAMIDE 5 MG TAB PO SCH ×3 (09:32→15:52)
[2018-05-13 10:59] VITALS: BMI 18.1
[2018-05-13] MEDS: FOLIC ACID 1 MG TAB PO SCH (12:26)
--- NOTE | 2018-05-13 12:34 | P.PN ---
Subjective This is a pleasant 62 years old with past medical history of COPD, hypertension, atrial fibrillation, who presents because of fall and fractured his left hip, status post left total hip arthroplasty. Patient was lying in bed, he denies any more dizziness. He still has significant pain at the surgical site. Cardiology and orthopedic team have been following the case. Patient on discharge will go to ECF. No chest pain or dyspnea. His leukocytosis is improving gradually from 17.1 down to 15.0, mostly reactive to. secondary to surgery. Hemoglobin 10.2, which could be secondary to expected blood loss during surgery. Platelets 200. Sodium 129. Creatinine 1.2. Patient has elevated troponins and his been evaluated by mop machine operator for A. fib, his rate is controlled currently. His continue on aspirin and Plavix, not anticoagulation. He has left suprahilar nodule, As stated above patient dizziness has improved but however he still complaining from pain at the surgical site which is controlled with pain medication. Patient was able to participate in some physical therapy. Currently he is not on oxygen. Patient was informed about the problem of lung nodule, his current smoker about 5 cigars per day. Risk of lung cancers explained to the patient and he verbalized understanding and acceptance, and he agrees for medical staff to make appointments with pulmonary office as an outpatient. Also will check postural vitals for blood pressure was in the low-normal site. marquetry worker is on the case and ECF was not found for him yet as patient was still in [place]. Objective - Vital Signs Vital signs: Vital Signs Temp 99.3 F 05/13/18 07:44 Pulse 84 05/13/18 07:44 Resp 14 05/13/18 07:44 BP 103/60 05/13/18 07:44 Pulse Ox 97 05/13/18 07:44 Intake & Output 05/12/18 05/13/18 05/13/18 18:59 06:59 18:59 Intake Total 640 560 Output Total 500 Balance 640 60 Weight 66 kg Intake: Intake, IV Titration 560 Amount Sodium Chloride 0.9% 1, 560 000 ml @ 70 mls/hr IV . [id number] [facility] Rx#:[id number] Oral 440 Other 200 Output: Urine 500 Other: Voiding Method Indwelling Catheter Indwelling Catheter Indwelling Catheter - Exam GENERAL: The patient is alert and oriented x3, not in any acute distress. Patient is thin built HEENT: Pupils are round and equally reacting to light. EOMI. No scleral icterus. No conjunctival pallor. Normocephalic, atraumatic. No pharyngeal erythema. No thyromegaly. CARDIOVASCULAR: S1 and S2 present. No murmurs, rubs, or gallops. PULMONARY: Chest is clear to auscultation, no wheezing or crackles. ABDOMEN: Soft, nontender, nondistended, normoactive bowel sounds. No palpable organomegaly. -MUSCULOSKELETAL: No joint swelling or deformity. Left hip wound is closed and cleaned. EXTREMITIES: No cyanosis, clubbing, or pedal edema. NEUROLOGICAL: Gross neurological examination did not reveal any focal deficits. SKIN: No rashes. - Labs CBC & Chem 7: 05/13/18 07:10 05/13/18 07:10 Labs: Abnormal Lab Results - Last 24 Hours (Table) 05/13/18 05/13/18 Range/Units 07:10 07:10 WBC 15.0 H (3.8-10.6) k/uL RBC 2.86 L (4.30-5.90) m/uL Hgb 10.2 L (13.0-17.5) gm/dL Hct 31.9 L (39.0-53.0) % MCV 111.4 H (80.0-100.0) fL MCH 35.8 H (25.0-35.0) pg RDW 18.0 H (11.5-15.5) % Sodium 129 L (137-145) mmol/L Carbon Dioxide 19 L (22-30) mmol/L Calcium 8.3 L (8.4-10.2) mg/dL Assessment and Plan Assessment: Left hip fracture, status post total left hip arthroplasty Mechanical fall on admission. Dizziness on admission, improved. Rule out postural hypotension Possible osteoporosis, start calcium and vitamin D. Left suprahilar lung nodule, Consequence smoker, patient counseled. He does not want nicotine patch Generalized weakness leukocytosis, mostly reactive. No need for antibiotic Plan: This is a pleasant 62 years old male who presents because of fall and left hip fracture. He is status post left total hip arthroplasty. She is currently on aspirin and Plavix. Pain medication. Patient also has elevated troponin with A. fib and RVR, rate is controlled currently. Continue with dual antiplatelet therapy. Patient is not on anticoagulation. His acute kidney injury is improved. Patient also has mild hyponatremia, continue with fluid restriction. Labs and medication were reviewed.. Continue same treatment. Continue with symptomatic treatment. Resume home medication. Monitor lytes and vitals. DVT and GI prophylaxis. Further recommendations of the clinical course of the patient DVT prophylaxis: on aspirin and plavix GI Prophylaxis: Ppi PT/OT: nees ECF Prognosis is guarded
[2018-05-13] MEDS: HYDROcodone/APAP 7.5-325MG 1 EACH TAB PO PRN (15:48)
[2018-05-13] MEDS: SODIUM CHLORIDE 0.9% 1,000 ML IV SCH (19:31)
[2018-05-13] MEDS: ATORVASTATIN 80 MG TAB PO SCH (21:28)
[2018-05-13] MEDS: SENNOSIDES-DOCUSATE SODIUM 1 EACH TAB PO SCH (21:28)
[2018-05-14] MEDS: SODIUM CHLORIDE 0.9% 1,000 ML IV SCH ×2 (00:21→16:18)
[2018-05-14] MEDS: HYDROmorphone 0.5 MG/0.5 ML SYRINGE IVP PRN ×2 (00:51→04:11)
[2018-05-14 07:28] LABS: Anisocytosis Slight; Basophils % (A) 0 %; Eosinophils # (A) 0.2 k/uL (0-0.7); Eosinophils % (A) 2 %; HCT 29.8 % (39.0-53.0); HGB 9.3 gm/dL (13.0-17.5); Lymphocytes # (A) 0.7 k/uL (1.0-4.8); Lymphocytes % (A) 6 %; MCH 34.7 pg (25.0-35.0); MCHC 31.3 g/dL (31.0-37.0); Macrocytosis Marked; Mean Platelet Volume 7.4; Monocytes # (A) 1.1 k/uL (0-1.0); Monocytes % (A) 10 %; Neutrophils # (A) 8.6 k/uL (1.3-7.7); Neutrophils % (A) 80 %; Platelet Count 181 k/uL (150-450); RBC 2.69 m/uL (4.30-5.90); RDW 17.4 % (11.5-15.5); WBC 10.7 k/uL (3.8-10.6)
[2018-05-14] MEDS: GABAPENTIN 100 MG CAP PO SCH ×3 (07:33→21:52)
[2018-05-14] MEDS: METOCLOPRAMIDE 5 MG TAB PO SCH ×3 (07:33→17:04)
[2018-05-14] MEDS: PANTOPRAZOLE 40 MG TABLET PO SCH (07:33)
[2018-05-14] MEDS: CLOPIDOGREL 75 MG TAB PO SCH (07:33)
[2018-05-14] MEDS: SODIUM BICARBONATE TAB 650 MG TAB PO SCH ×2 (07:33→21:52)
[2018-05-14] MEDS: ASPIRIN 81 MG PO SCH (07:33)
[2018-05-14] MEDS: SYMBICORT 160-4.5 MCG INHALER INHALATION SCH ×2 (07:33→19:44)
--- NOTE | 2018-05-14 08:18 | P.PN ---
Subjective Progress Note Date: 05/14/18 This is a 62-year-old male who is status post left hip hemiarthroplasty. This is postoperative day #3 and patient is seen and evaluated at bedside. Patient states that he was able to stand and sit in a chair yesterday while working with physical therapy, but he still complains of pain. Patient denies any fever/chills, numbness, weakness, tingling, abdominal pain, shortness of breath or chest pain. Objective - Vital Signs Vital signs: Vital Signs Temp 98.1 F 05/14/18 07:03 Pulse 109 H 05/14/18 07:03 Resp 16 05/14/18 07:03 BP 103/65 05/14/18 07:03 Pulse Ox 94 L 05/14/18 07:03 Intake & Output 05/13/18 05/14/18 05/14/18 18:59 06:59 18:59 Intake Total 910 Output Total 1415 300 Balance -1415 610 Weight 66 kg Intake: Intake, IV Titration 560 Amount Sodium Chloride 0.9% 1, 560 000 ml @ 70 mls/hr IV . [id number] [facility] Rx#:[id number] Oral 350 Output: Gastric Drainage 900 Urine 515 300 Other: Voiding Method Indwelling Catheter Indwelling Catheter - Exam Vital signs are stable. Patient is in no acute distress and is alert and oriented 3. Calf is soft and nontender to palpation. Dressing is clean, dry, and intact. Patient has full foot and ankle motion without pain or difficulty. Neurovascular status and circulatory status are intact. - Labs CBC & Chem 7: 05/14/18 06:29 05/13/18 07:10 Labs: Abnormal Lab Results - Last 24 Hours (Table) 05/13/18 05/14/18 Range/Units 07:10 06:29 WBC 10.7 H (3.8-10.6) k/uL RBC 2.69 L (4.30-5.90) m/uL Hgb 9.3 L (13.0-17.5) gm/dL Hct 29.8 L (39.0-53.0) % MCV 111.0 H (80.0-100.0) fL RDW 17.4 H (11.5-15.5) % Neutrophils # 8.6 H (1.3-7.7) k/uL Lymphocytes # 0.7 L (1.0-4.8) k/uL Monocytes # 1.1 H (0-1.0) k/uL Sodium 129 L (137-145) mmol/L Carbon Dioxide 19 L (22-30) mmol/L Calcium 8.3 L (8.4-10.2) mg/dL Assessment and Plan Assessment: Chronic kidney disease History of atrial fibrillation History of hypertension History of COPD History of coronary artery disease History of diverticulitis with bowel resection and colostomy bag (1) S/P hip hemiarthroplasty Current Visit: Yes Status: Acute Code(s): Z96.649 - PRESENCE OF UNSPECIFIED ARTIFICIAL HIP JOINT SNOMED Code(s): 691841623 (2) Fall Current Visit: Yes Status: Acute Code(s): W19.XXXA - UNSPECIFIED FALL, INITIAL ENCOUNTER SNOMED Code(s): 0275371 (3) Hip fracture, left Current Visit: Yes Status: Acute Code(s): S72.002A - FRACTURE OF UNSP PART OF NECK OF LEFT FEMUR, INIT SNOMED Code(s): 624732541 Plan: Continue routine postop care and pain control. X-ray of the left hip pending. Continue hip precautions with abductor pillow. Continue anticoagulation with aspirin and Plavix. Weightbearing as tolerated with a walker. Leave dressing in place for 10 days. Appreciate input from medicine. Awaiting discharge to rehab.
[2018-05-14] MEDS: HYDROcodone/APAP 7.5-325MG 1 EACH TAB PO PRN ×3 (08:30→21:46)
--- NOTE | 2018-05-14 09:22 | XR ---
Limited left hip HISTORY: Pain Single frontal view of the left hip correlated to prior exam 05/11/2018 No significant interval change is evident. Bone mineralization is reduced which may limit sensitivity . There is anatomic alignment. No evident fracture. IMPRESSION: Status post left hip arthroplasty.
[2018-05-14] MEDS: FOLIC ACID 1 MG TAB PO SCH (12:17)
[2018-05-14] MEDS: SENNOSIDES-DOCUSATE SODIUM 1 EACH TAB PO SCH (21:51)
[2018-05-14] MEDS: ATORVASTATIN 80 MG TAB PO SCH (21:51)
[2018-05-15] MEDS: HYDROcodone/APAP 7.5-325MG 1 EACH TAB PO PRN ×2 (03:40→10:04)
[2018-05-15] MEDS: SODIUM CHLORIDE 0.9% 1,000 ML IV SCH (07:29)
[2018-05-15 08:07] VITALS: BP 96/59; PULSE 97; RESP 18; TEMP 98
[2018-05-15] MEDS: SYMBICORT 160-4.5 MCG INHALER INHALATION SCH (09:03)
--- NOTE | 2018-05-15 09:18 | P.PN ---
Subjective Progress Note Date: 05/15/18 Principal diagnosis: Status post total knee arthroplasty left hip This is a 62-year-old male who is status post hemiarthroplasty left hip. He is postoperative day #4 today. He has no new complaints or concerns. He is awaiting rehab placement at this time. Vital signs are stable. Objective - Vital Signs Vital signs: Vital Signs Temp 98.0 F 05/15/18 06:56 Pulse 97 05/15/18 06:56 Resp 18 05/15/18 06:56 BP 96/59 05/15/18 06:56 Pulse Ox 99 05/15/18 06:56 Intake & Output 05/14/18 05/15/18 05/15/18 18:59 06:59 18:59 Intake Total 1050 380 Output Total 375 400 Balance 675 -20 Intake: Oral 1050 380 Output: Urine 375 400 Uretheral ([place]) 400 Other: Voiding Method Indwelling Catheter Indwelling Catheter # Voids 3 - Exam This is a pleasant 62-year-old male in no acute distress. He is alert and oriented 3. Exam of the left lower extremity reveals his dressing is clean, dry and intact. He has full foot and ankle motion bilaterally. Neurovascular status to the lower extremity is intact. - Labs CBC & Chem 7: 05/14/18 06:29 05/13/18 07:10 Assessment and Plan (1) Fall Current Visit: Yes Status: Acute Code(s): W19.XXXA - UNSPECIFIED FALL, INITIAL ENCOUNTER SNOMED Code(s): 5368809 (2) Hip fracture, left Current Visit: Yes Status: Acute Code(s): S72.002A - FRACTURE OF UNSP PART OF NECK OF LEFT FEMUR, INIT SNOMED Code(s): 287991938 (3) Renal insufficiency Current Visit: Yes Status: Acute Code(s): N28.9 - DISORDER OF KIDNEY AND URETER, UNSPECIFIED SNOMED Code(s): 159301074 (4) S/P hip hemiarthroplasty Current Visit: Yes Status: Acute Code(s): Z96.649 - PRESENCE OF UNSPECIFIED ARTIFICIAL HIP JOINT SNOMED Code(s): 596520545 (5) Atrial fibrillation Current Visit: No Status: Acute Code(s): I48.91 - UNSPECIFIED ATRIAL FIBRILLATION SNOMED Code(s): 50217797 Plan: The clinical findings are discussed the patient. He may be discharged to rehab today if cleared medically. He is to follow-up in 3 weeks or x-ray and evaluation.
[2018-05-15] MEDS: ASPIRIN 81 MG PO SCH (10:06)
[2018-05-15] MEDS: SODIUM BICARBONATE TAB 650 MG TAB PO SCH (10:06)
[2018-05-15] MEDS: PANTOPRAZOLE 40 MG TABLET PO SCH (10:06)
[2018-05-15] MEDS: CLOPIDOGREL 75 MG TAB PO SCH (10:06)
[2018-05-15] MEDS: GABAPENTIN 100 MG CAP PO SCH (10:06)
--- NOTE | 2018-05-15 11:05 | P.PN ---
Subjective Progress Note Date: 05/14/18 Principal diagnosis: left hip hemiarthroplasty 66-year-old male patient who is status post left hip hemiarthroplasty; patient is postoperative day #3 Patient seen and evaluated in the room at bedside; per therapy service patient was able to stand and sit in chair while working with physical therapy; continues to complain of pain per nursing staff requiting pain medication Objective - Vital Signs Vital signs: Vital Signs Temp 98.1 F 05/14/18 07:03 Pulse 109 H 05/14/18 07:03 Resp 16 05/14/18 07:03 BP 103/65 05/14/18 07:03 Pulse Ox 94 L 05/14/18 07:03 Intake & Output 05/13/18 05/14/18 05/14/18 18:59 06:59 18:59 Intake Total 910 700 Output Total 1415 300 Balance -1415 610 700 Weight 66 kg Intake: Intake, IV Titration 560 Amount Sodium Chloride 0.9% 1, 560 000 ml @ 70 mls/hr IV . [id number] [facility] Rx#:[id number] Oral 350 700 Output: Gastric Drainage 900 Urine 515 300 Other: Voiding Method Indwelling Catheter Indwelling Catheter Indwelling Catheter - Exam GENERAL: The patient is alert and oriented x3, not in any acute distress. Patient is thin built HEENT: Pupils are round and equally reacting to light. EOMI. No scleral icterus. No conjunctival pallor. Normocephalic, atraumatic. No pharyngeal erythema. No thyromegaly. CARDIOVASCULAR: S1 and S2 present. No murmurs, rubs, or gallops. PULMONARY: Chest is clear to auscultation, no wheezing or crackles. ABDOMEN: Soft, nontender, nondistended, normoactive bowel sounds. No palpable organomegaly. -MUSCULOSKELETAL: No joint swelling or deformity. Left hip wound is closed and cleaned. EXTREMITIES: No cyanosis, clubbing, or pedal edema. NEUROLOGICAL: Gross neurological examination did not reveal any focal deficits. SKIN: No rashes. - Labs CBC & Chem 7: 05/14/18 06:29 05/13/18 07:10 Labs: Abnormal Lab Results - Last 24 Hours (Table) 05/14/18 Range/Units 06:29 WBC 10.7 H (3.8-10.6) k/uL RBC 2.69 L (4.30-5.90) m/uL Hgb 9.3 L (13.0-17.5) gm/dL Hct 29.8 L (39.0-53.0) % MCV 111.0 H (80.0-100.0) fL RDW 17.4 H (11.5-15.5) % Neutrophils # 8.6 H (1.3-7.7) k/uL Lymphocytes # 0.7 L (1.0-4.8) k/uL Monocytes # 1.1 H (0-1.0) k/uL Assessment and Plan Assessment: Left hip fracture, status post total left hip arthroplasty Mechanical fall on admission. Dizziness on admission, improved. Rule out postural hypotension Possible osteoporosis, start calcium and vitamin D. Left suprahilar lung nodule, Consequence smoker, patient counseled. He does not want nicotine patch Generalized weakness leukocytosis, mostly reactive. No need for antibiotic Plan: Ortho recommending to continue postop care and pain control; x-ray of hip is done and shows left hemiarthroplasty in good place; patient is to continue hip precautions with abductor pillow; she started on anticoagulation with aspirin and Plavix; patient relates placement to skilled rehab where he will have weightbearing as tolerated with a walker; dressing to stay in place for 10 days Discharge to skilled rehab once arrangements are made.
--- NOTE | 2018-05-15 11:07 | P.DS ---
Providers Date of admission: 05/09/18 09:26 Expected date of discharge: 05/15/18 Attending physician: Quintin Long MD Consults: 05/09/18 09:26 Consult Physician Urgent Consulting Provider: [facility] Consult Reason/Comments: Elevated troponin Do you want consulting provider notified?: Yes Consult Physician Urgent Consulting Provider: Vero Chowdhury Consult Reason/Comments: Left femoral neck fracture Do you want consulting provider notified?: Already Contacted Primary care physician: Stated None Hospital Course: This is a pleasant 62 years old with past medical history of COPD, hypertension, atrial fibrillation, who presents because of fall and fractured his left hip, status post left total hip arthroplasty. Patient was lying in bed, he denies any more dizziness. He still has significant pain at the surgical site. Cardiology and orthopedic team have been following the case. Patient on discharge will go to ECF. No chest pain or dyspnea. His leukocytosis is improving gradually from 17.1 down to 15.0, mostly reactive to. secondary to surgery. Hemoglobin 10.2, which could be secondary to expected blood loss during surgery. Platelets 200. Sodium 129. Creatinine 1.2. Patient has elevated troponins and his been evaluated by correctional officer sergeant for A. fib, his rate is controlled currently. His continue on aspirin and Plavix, not anticoagulation. He has left suprahilar nodule, As stated above patient dizziness has improved but however he still complaining from pain at the surgical site which is controlled with pain medication. Patient was able to participate in some physical therapy. Currently he is not on oxygen. Patient was informed about the problem of lung nodule, his current smoker about 5 cigars per day. Risk of lung cancers explained to the patient and he verbalized understanding and acceptance, and he agrees for medical staff to make appointments with pulmonary office as an outpatient. Also will check postural vitals for blood pressure was in the low-normal site. parks and recreation worker is on the case and ECF was not found for him yet as [place] was still in [place]. Ortho recommending to continue postop care and pain control; x-ray of hip is done and shows left hemiarthroplasty in good place; patient is to continue hip precautions with abductor pillow; she started on anticoagulation with aspirin and Plavix; patient relates placement to skilled rehab where he will have weightbearing as tolerated with a walker; dressing to stay in place for 10 days Discharge to skilled rehab today Plan - Discharge Summary Discharge Rx Participant: No New Discharge Prescriptions: New HYDROcodone/APAP 7.5-325MG [[place] 7.5-325] 1 - 2 tab PO Q6H PRN #56 tab PRN Reason: Pain Aspirin 81 mg PO DAILY chew Clopidogrel [Plavix] 75 mg PO DAILY tab Continue Folic Acid 1 mg PO DAILY Atorvastatin [Lipitor] 80 mg PO HS #30 tab Cyanocobalamin [Vitamin B-12] 1,000 mcg PO DAILY@1200 #30 tab Gabapentin [Neurontin] 100 mg PO TID #90 cap Metoclopramide [Reglan] 5 mg PO AC-TID #90 tab Pantoprazole [Protonix] 40 mg PO DAILY #30 tablet. Sodium Bicarbonate Tab 650 mg PO BID #60 tab Albuterol Inhaler [Ventolin Hfa Inhaler] 1 - 2 puff INHALATION RT-Q6H PRN #1 inhaler PRN Reason: Shortness of breath Aspirin 81 mg PO DAILY #30 chew Clopidogrel [Plavix] 75 mg PO DAILY #30 tab Budesonide/Formoterol Fumarate [Symbicort 160-4.5 Mcg Inhaler] 2 puff INHALATION RT-BID Discharge Medication List Folic Acid 1 mg PO DAILY 01/25/18 [History] Albuterol Inhaler [Ventolin Hfa Inhaler] 1 - 2 puff INHALATION RT-Q6H PRN #1 inhaler 01/31/18 [Rx] Aspirin 81 mg PO DAILY #30 chew 01/31/18 [Rx] Atorvastatin [Lipitor] 80 mg PO HS #30 tab 01/31/18 [Rx] Clopidogrel [Plavix] 75 mg PO DAILY #30 tab 01/31/18 [Rx] Cyanocobalamin [Vitamin B-12] 1,000 mcg PO DAILY@1200 #30 tab 01/31/18 [Rx] Gabapentin [Neurontin] 100 mg PO TID #90 cap 01/31/18 [Rx] Metoclopramide [Reglan] 5 mg PO AC-TID #90 tab 01/31/18 [Rx] Pantoprazole [Protonix] 40 mg PO DAILY #30 tablet. 01/31/18 [Rx] Sodium Bicarbonate Tab 650 mg PO BID #60 tab 01/31/18 [Rx] Budesonide/Formoterol Fumarate [Symbicort 160-4.5 Mcg Inhaler] 2 puff INHALATION RT-BID 05/09/18 [History] HYDROcodone/APAP 7.5-325MG [[place] 7.5-325] 1 - 2 tab PO Q6H PRN #56 tab 05/14/18 [Rx] Aspirin 81 mg PO DAILY chew 05/15/18 [Rx] Clopidogrel [Plavix] 75 mg PO DAILY tab 05/15/18 [Rx] Follow up Appointment(s)/Referral(s): None,Stated [Primary Care Provider] - 1-2 days Cedric Reed DO [Doctor of Osteopathic Medicine] - 05/26/18 9:00 am Activity/Diet/Wound Care/Special Instructions: [place] Weightbearing as tolerated with walker. Leave dressing intact. Dressing may be removed by home care nurse or by patient in 10 days. May shower with dressing on. Continue use of abductor pillow [id number]. Please follow-up with [facility] in 2 weeks and call with any questions or concerns, . Discharge Disposition: TRANSFER TO SNF/ECF
[2018-05-15] MEDS: METOCLOPRAMIDE 5 MG TAB PO SCH (11:40)
== END 2018-05-15 13:10 | DRG 470 ==
LOC: EC 07:37 → 3SCARD 09:26 → 4SSUR 05-11 15:13
PROVIDERS: ADMIT Internal Medicine; ATTEND Internal Medicine
PROC: 0SRS0JA Replacement of Left Hip Joint, Femoral Surface with Synthetic Substitute, Uncemented, Open Approach (ICD-10-PCS; principal; 2018-05-11 07:30)
DX: S72.012A Unspecified intracapsular fracture of left femur, initial encounter for closed fracture (principal); E87.1 Hypo-osmolality and hyponatremia; N17.9 Acute kidney failure, unspecified; W19.XXXA Unspecified fall, initial encounter; D64.9 Anemia, unspecified; D72.829 Elevated white blood cell count, unspecified; E78.5 Hyperlipidemia, unspecified; E86.0 Dehydration; F17.210 Nicotine dependence, cigarettes, uncomplicated; F17.290 Nicotine dependence, other tobacco product, uncomplicated; F32.9 Major depressive disorder, single episode, unspecified; I12.9 Hypertensive chronic kidney disease with stage 1 through stage 4 chronic kidney disease, or unspecified chronic kidney disease; I25.10 Atherosclerotic heart disease of native coronary artery without angina pectoris; I48.0 Paroxysmal atrial fibrillation; G89.29 Other chronic pain; N18.9 Chronic kidney disease, unspecified; J44.9 Chronic obstructive pulmonary disease, unspecified; I73.00 Raynaud's syndrome without gangrene; Z96.652 Presence of left artificial knee joint; Z79.82 Long term (current) use of aspirin; Z79.899 Other long term (current) drug therapy; Z79.51 Long term (current) use of inhaled steroids; Z79.02 Long term (current) use of antithrombotics/antiplatelets; Z90.49 Acquired absence of other specified parts of digestive tract; Z95.5 Presence of coronary angioplasty implant and graft; Z91.19 Patient's noncompliance with other medical treatment and regimen; Y92.009 Unspecified place in unspecified non-institutional (private) residence as the place of occurrence of the external cause; Z86.14 Personal history of Methicillin resistant Staphylococcus aureus infection; Z93.2 Ileostomy status; Z82.49 Family history of ischemic heart disease and other diseases of the circulatory system
CPT/HCPCS: 36415; 71046; 73501; 73502; 80048; 80053; 80061; 81001; 83605; 83735; 83880; 84484; 85025; 85027; 85379; 85610; 85730; 86850; 86900; 86901; 88305; 88311; 93005; 93306; 94640; 94760; 96361; 96374; 99291

== ENCOUNTER 2018-06-01 14:17 | Inpatient (IN) | payer OTHER ==
[2018-06-01] MEDS ORDERED: MORPHINE SULFATE 4 MG/ML SYRINGE IV STA (14:31)
[2018-06-01] MEDS ORDERED: SODIUM CHLORIDE 0.9% 1,000 ML IV STA ×2 (14:31)
[2018-06-01] MEDS ORDERED: ONDANSETRON 4 MG/2 ML VIAL IVP STA (14:31)
--- NOTE | 2018-06-01 14:52 | ED ---
General Adult HPI - General Chief complaint: Abdominal Pain Stated complaint: Vomiting blood Time Seen by Provider: 06/01/18 14:23 Source: patient, EMS, RN notes reviewed, old records reviewed Mode of arrival: EMS Limitations: physical limitation - History of Present Illness Initial comments: 62-year-old male presents from home for evaluation nausea vomiting and abdominal pain. Patient states symptoms have been progressive over the past 3 days. [facility] He was undergoing rehabilitation status post hip fracture. Patient has previous history of ileostomy. His home care nurse did note some brown vomit and there was concern for bleeding. He states he's had an episode of vomiting approximately every ho ur for the past 3 days. He's had normal stool output through his ostomy. No melena, no bright red blood. - Related Data Home Medications Medication Instructions Recorded Confirmed Folic Acid 1 mg PO DAILY 01/25/18 06/01/18 Budesonide/Formoterol Fumarate 2 puff INHALATION RT-BID 05/09/18 06/01/18 [Symbicort 160-4.5 Mcg Inhaler] Acetaminophen [Tylenol] 650 mg PO Q6H PRN 06/01/18 06/01/18 Previous Rx's Medication Instructions Recorded Albuterol Inhaler [Ventolin Hfa 1 - 2 puff INHALATION RT-Q6H PRN 01/31/18 Inhaler] #1 inhaler Aspirin 81 mg PO DAILY #30 chew 01/31/18 Atorvastatin [Lipitor] 80 mg PO HS #30 tab 01/31/18 Clopidogrel [Plavix] 75 mg PO DAILY #30 tab 01/31/18 Cyanocobalamin [Vitamin B-12] 1,000 mcg PO DAILY@1200 #30 tab 01/31/18 Gabapentin [Neurontin] 100 mg PO TID #90 cap 01/31/18 Metoclopramide [Reglan] 5 mg PO AC-TID #90 tab 01/31/18 Pantoprazole [Protonix] 40 mg PO DAILY #30 tablet 01/31/18 Sodium Bicarbonate Tab 650 mg PO BID #60 tab 01/31/18 HYDROcodone/APAP 7.5-325MG [[place] 1 - 2 tab PO Q6H PRN #56 tab 05/14/18 7.5-325] Allergies Allergy/AdvReac Type Severity Reaction Status Date / Time No Known Allergies Allergy Verified 06/01/18 15:45 Review of Systems ROS Statement: Those systems with pertinent positive or pertinent negative responses have been documented in the HPI. ROS Other: All systems not noted in ROS Statement are negative. Past Medical History Past Medical History: Atrial Fibrillation, COPD, Hypertension Additional Past Medical History / Comment(s): Pt states he recently had PCI with stents about 6 weeks ago at [facility], generalized chronic pain, past multiple fractures including cervical fracture, severe diverticulitis with bowel resection/ileostomy and had bladder injury during surgery which required surgery then devloped an abdominal abscess which also required surgery, recent acute renal failure possibly d/t dehydration, bilateral Raynauld's syndrome-states fingers are always painful and numb/discoloration. 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, colonoscopies, bowel resection with ileostomy, cystoscopy for bladder repair, abdominal abscess with surgical intervention, R inguinal hernia repair with mesh, R knee arthroscopy. Past Anesthesia/Blood Transfusion Reactions: No Reported Reaction Date of Last Stent Placement:: 12/06/17 Past Psychological History: Depression Smoking Status: Current every day smoker Past Alcohol Use History: Daily Past Drug Use History: None Reported - Past Family History Father Family Medical History: Myocardial Infarction ([place]) Additional Family Medical History / Comment(s): Father had 3 MIs, he had his first one at the age of 50 yrs. He at the age of 85 yrs. Mother Family Medical History: No Reported History Additional Family Medical History / Comment(s): Mother was healthy and lived to be 94 or 95 yrs old. General Exam Limitations: physical limitation General appearance: alert, in no apparent distress Head exam: Present: atraumatic, normocephalic Eye exam: Present: normal appearance, PERRL ENT exam: Present: mucous membranes dry Neck exam: Present: normal inspection. Absent: tenderness, meningismus Respiratory exam: Present: normal lung sounds bilaterally. Absent: respiratory distress, wheezes Cardiovascular Exam: Present: regular rate, normal rhythm GI/Abdominal exam: Present: soft, tenderness (Generalized tenderness to palpation), other (Ostomy). Absent: distended, guarding, rebound Extremities exam: Present: normal inspection, normal capillary refill. Absent: pedal edema, calf tenderness Neurological exam: Present: alert, oriented X3, CN II-XII intact. Absent: motor sensory deficit Skin exam: Present: warm, dry, intact. Absent: cyanosis, diaphoretic Course Vital Signs 06/01/18 06/01/18 14:24 16:30 Temperature 98.7 F Pulse Rate 82 89 Respiratory 18 18 Rate Blood Pressure 140/79 124/72 O2 Sat by Pulse 96 98 Oximetry Medical Decision Making - Medical Decision Making 62-year-old with abdominal pain, nausea vomiting. Concern for gastrointestinal hemorrhage. Patient does have brown stool mixed with some melanotic stool in his ostomy. This is heme positive. Patient has generalized abdominal tenderness. He does manual blood cell count, hemoglobin 10.1 which is improved from previous. Normal lactic acid, normal CMP. Urinalysis is pending. Computed tomography scan does show some dilated small bowel, no obstruction. There is stool in his ostomy. Will be admitted for abdominal pain, gastric intestinal hemorrhage. Case discussed with Dr. Mendoza, we will admit. - Lab Data Result diagrams: 06/01/18 14:53 06/01/18 14:53 Lab Results 06/01/18 06/01/18 06/01/18 Range/Units 14:53 14:53 14:53 WBC 6.6 (3.8-10.6) k/uL RBC 3.05 L (4.30-5.90) m/uL Hgb 10.1 L (13.0-17.5) gm/dL Hct 32.1 L (39.0-53.0) % MCV 105.3 H D (80.0-100.0) fL MCH 33.0 (25.0-35.0) pg MCHC 31.4 (31.0-37.0) g/dL RDW 17.3 H (11.5-15.5) % Plt Count 671 H (150-450) k/uL Neutrophils % 75 % Lymphocytes % 12 % Monocytes % 10 % Eosinophils % 1 % Basophils % 0 % Neutrophils # 5.0 (1.3-7.7) k/uL Lymphocytes # 0.8 L (1.0-4.8) k/uL Monocytes # 0.7 (0-1.0) k/uL Eosinophils # 0.0 (0-0.7) k/uL Basophils # 0.0 (0-0.2) k/uL Hypochromasia Slight Anisocytosis Slight Macrocytosis Moderate PT (9.0-12.0) sec INR (<1.2) APTT (22.0-30.0) sec Sodium 134 L (137-145) mmol/L Potassium 4.2 (3.5-5.1) mmol/L Chloride 101 (98-107) mmol/L Carbon Dioxide 26 (22-30) mmol/L Anion Gap 7 mmol/L BUN 5 L (9-20) mg/dL Creatinine 0.77 (0.66-1.25) mg/dL Est GFR (CKD-EPI)AfAm >90 (>60 ml/min/1.73 sqM) Est GFR (CKD-EPI)NonAf >90 (>60 ml/min/1.73 sqM) Glucose 111 H (74-99) mg/dL Plasma Lactic Acid Mj 0.9 (0.7-2.0) mmol/L Calcium 9.1 (8.4-10.2) mg/dL Total Bilirubin 0.6 (0.2-1.3) mg/dL AST 17 (17-59) U/L ALT 13 L (21-72) U/L Alkaline Phosphatase 98 (38-126) U/L Total Protein 5.7 L (6.3-8.2) g/dL Albumin 2.9 L (3.5-5.0) g/dL Amylase <30 L (30-110) U/L Lipase 22 L (23-300) U/L Urine Color Urine Appearance (Clear) Urine pH (5.0-8.0) Ur Specific [place] (1.001-1.035) Urine Protein (Negative) Urine Glucose (UA) (Negative) Urine Ketones (Negative) Urine Blood (Negative) Urine Nitrite (Negative) Urine Bilirubin (Negative) Urine Urobilinogen (<2.0) mg/dL Ur Leukocyte Esterase (Negative) Stool Occult Blood (Negative) 06/01/18 06/01/18 06/01/18 Range/Units 14:53 15:00 16:18 WBC (3.8-10.6) k/uL RBC (4.30-5.90) m/uL Hgb (13.0-17.5) gm/dL Hct (39.0-53.0) % MCV (80.0-100.0) fL MCH (25.0-35.0) pg MCHC (31.0-37.0) g/dL RDW (11.5-15.5) % Plt Count (150-450) k/uL Neutrophils % % Lymphocytes % % Monocytes % % Eosinophils % % Basophils % % Neutrophils # (1.3-7.7) k/uL Lymphocytes # (1.0-4.8) k/uL Monocytes # (0-1.0) k/uL Eosinophils # (0-0.7) k/uL Basophils # (0-0.2) k/uL Hypochromasia Anisocytosis Macrocytosis PT 11.6 (9.0-12.0) sec INR 1.1 (<1.2) APTT 28.9 (22.0-30.0) sec Sodium (137-145) mmol/L Potassium (3.5-5.1) mmol/L Chloride (98-107) mmol/L Carbon Dioxide (22-30) mmol/L Anion Gap mmol/L BUN (9-20) mg/dL Creatinine (0.66-1.25) mg/dL Est GFR (CKD-EPI)AfAm (>60 ml/min/1.73 sqM) Est GFR (CKD-EPI)NonAf (>60 ml/min/1.73 sqM) Glucose (74-99) mg/dL Plasma Lactic Acid Mj (0.7-2.0) mmol/L Calcium (8.4-10.2) mg/dL Total Bilirubin (0.2-1.3) mg/dL AST (17-59) U/L ALT (21-72) U/L Alkaline Phosphatase (38-126) U/L Total Protein (6.3-8.2) g/dL Albumin (3.5-5.0) g/dL Amylase (30-110) U/L Lipase (23-300) U/L Urine Color Yellow Urine Appearance Clear (Clear) Urine pH 6.0 (5.0-8.0) Ur Specific [place] 1.020 (1.001-1.035) Urine Protein Trace H (Negative) Urine Glucose (UA) Negative (Negative) Urine Ketones Negative (Negative) Urine Blood Negative (Negative) Urine Nitrite Negative (Negative) Urine Bilirubin Negative (Negative) Urine Urobilinogen <2.0 (<2.0) mg/dL Ur Leukocyte Esterase Negative (Negative) Stool Occult Blood Positive (Negative) Disposition Clinical Impression: GI bleed, Abdominal pain, Enteritis Disposition: ADMITTED IP TO THIS [facility] Condition: Stable Is patient prescribed a controlled substance at d/c from ED?: No Referrals: None,Stated [Primary Care Provider] - 1-2 days Decision to Admit Reason: Admit from EC Decision Date: 06/01/18 Decision Time: 16:41
[2018-06-01 15:13] LABS: ALT 13 U/L (21-72); AST 17 U/L (17-59); Albumin 2.9 g/dL (3.5-5.0); Alkaline Phosphatase 98 U/L (38-126); Amylase <30 U/L (30-110); Anion Gap 7 mmol/L; Blood Urea Nitrogen 5 mg/dL (9-20); Calcium 9.1 mg/dL (8.4-10.2); Carbon Dioxide 26 mmol/L (22-30); Chloride 101 mmol/L (98-107); Glucose 111 mg/dL (74-99); Lipase 22 U/L (23-300); Potassium 4.2 mmol/L (3.5-5.1); Sodium 134 mmol/L (137-145); Total Bilirubin 0.6 mg/dL (0.2-1.3); Total Protein 5.7 g/dL (6.3-8.2)
[2018-06-01 15:21] LABS: Anisocytosis Slight; Basophils % (A) 0 %; Eosinophils % (A) 1 %; HCT 32.1 % (39.0-53.0); HGB 10.1 gm/dL (13.0-17.5); Hypochromasia Slight; INR 1.1 (<1.2); Lymphocytes # (A) 0.8 k/uL (1.0-4.8); Lymphocytes % (A) 12 %; MCHC 31.4 g/dL (31.0-37.0); Macrocytosis Moderate; Mean Platelet Volume 6.9; Monocytes # (A) 0.7 k/uL (0-1.0); Monocytes % (A) 10 %; Neutrophils % (A) 75 %; Partial Thromboplastin Time 28.9 sec (22.0-30.0); Platelet Count 671 k/uL (150-450); Prothrombin Time 11.6 sec (9.0-12.0); RBC 3.05 m/uL (4.30-5.90); RDW 17.3 % (11.5-15.5); WBC 6.6 k/uL (3.8-10.6)
[2018-06-01 15:26] LABS: MCV 105.3 fL (80.0-100.0)
[2018-06-01] MEDS ORDERED: PANTOPRAZOLE 40 MG/10 ML VIAL IVP STA (16:07)
--- NOTE | 2018-06-01 16:11 | CT ---
EXAMINATION TYPE: CT abdomen pelvis w con DATE OF EXAM: 06/01/2018 COMPARISON: 01/27/2018 HISTORY: Generalized abdominal pain with nausea and vomiting. CT DLP: 581.9 mGycm CONTRAST: CT scan of the abdomen and pelvis is performed without Oral Contrast and with IV Contrast, patient in jected with 100 mL of Isovue 300. FINDINGS: LUNG BASES-: No visible nodule. No infiltrate. Small bilateral pleural effusions noted. LIVER/GB: No calcified gallstones. No solid space occupying hepatic lesion. Hepatic cysts noted an terior segment right hepatic lobe. Biliary tree is of normal caliber. PANCREAS: No inflammation. No distinct mass. SPLEEN: No splenic enlargement. No lesion seen. ADRENALS: No nodule. No thickening. KIDNEYS/BLADDER: No hydronephrosis. No nephrolithiasis. No distinct renal mass. Urinary bladder g rossly unremarkable. BOWEL: Left lower quadrant colostomy noted. There are distended loops of small bowel which are fluid- filled measuring up to 2.6 cm. The findings may reflect ileus and possible gastroenteritis. No obstru ctive changes seen. No free air or abscess. GENITAL ORGANS: No gross abnormality. LYMPH NODES: No greater than 1cm abdominal or pelvic lymph nodes are appreciated. AORTA: Atheromatous and ectatic changes of the abdominal aorta. OSSEOUS STRUCTURES: No significant abnormality is seen. OTHER: No significant additional abnormality is seen. IMPRESSION: 1. Fluid distended stomach and jejunal loops may reflect gastroenteritis. No definite evidence for ob structive change. 2 small bilateral pleural effusions and minimal left basilar compressive atelectasis. 3. Left lower quadrant ostomy.
[2018-06-01 16:28] LABS: Appearance,Urine Clear (Clear); Bilirubin,Urine Negative (Negative); Blood,Urine Negative (Negative); Color,Urine Yellow; Glucose,Urine (UA) Negative (Negative); Ketones,Urine Negative (Negative); Leukocyte Esterase,Urine Negative (Negative); Nitrite,Urine Negative (Negative); Protein,Urine Trace (Negative); Urobilinogen,Urine <2.0 mg/dL (<2.0)
[2018-06-01] MEDS ORDERED: ONDANSETRON 4 MG/2 ML VIAL IVP PRN (16:35)
[2018-06-01] MEDS ORDERED: NALOXONE 0.4 MG/ML 1 ML VIAL IV PRN (16:35)
[2018-06-01] MEDS ORDERED: MORPHINE SULFATE 4 MG/ML SYRINGE IV PRN (16:35)
[2018-06-01] MEDS ORDERED: ACETAMINOPHEN TAB 325 MG TAB PO PRN (17:02)
[2018-06-01] MEDS: SODIUM CHLORIDE 0.9% 1,000 ML IV SCH (17:51)
[2018-06-01] MEDS ORDERED: SYMBICORT 160-4.5 MCG INHALER INHALATION SCH (20:00)
[2018-06-01] MEDS: GABAPENTIN 100 MG CAP PO SCH (21:40)
[2018-06-01] MEDS: SODIUM BICARBONATE TAB 650 MG TAB PO SCH (21:40)
[2018-06-01] MEDS: ATORVASTATIN 80 MG TAB PO SCH (21:40)
[2018-06-01] MEDS: METOCLOPRAMIDE 5 MG TAB PO SCH (21:40)
[2018-06-01] MEDS: PANTOPRAZOLE 40 MG/10 ML VIAL IVP SCH (21:41)
[2018-06-01] MEDS: NICOTINE 21MG/24HR PATCH TRANSDERM SCH (23:58)
--- NOTE | 2018-06-02 00:05 | HP ---
HISTORY AND PHYSICAL DATE OF ADMISSION: 06/01/2018 DATE OF SERVICE: 06/01/2018 PRESENTING COMPLAINT: Nausea, vomiting. HISTORY OF PRESENTING COMPLAINT: This is a 62-year-old patient whose chronic stable medical conditions include atrial fibrillation, COPD, hypertension. He had coronary stents placed about 6 weeks ago at [facility]. He also has an ileostomy from prior history of diverticulitis and Raynaud disease. The patient recently had a fractured repair was done by Dr. Reed. Patient did go to the [facility] and patient was having nausea when discharged home about 4 days ago. The patient continues to have nausea and vomiting; has been on Reglan; not able to keep anything down, feeling tired, exhausted, and decided to come in. There has been no fever, chills. Slight abdominal pain. Ileostomy bag has been working fine. The patient is a smoker. REVIEW OF SYSTEMS: CONSTITUTIONAL: Tired. HEENT: None. RESPIRATORY: Some wheezing and cough. CARDIOVASCULAR: None. GASTROINTESTINAL: As above. GENITOURINARY: None. MUSCULOSKELETAL: Arthritic pain in the joints. DERMATOLOGICAL: None. HEMATOLOGICAL: None. LYMPHATICS: None. PSYCHIATRY: None. NEUROLOGICAL: None. PAST MEDICAL HISTORY: 1. Atrial fibrillation. 2. COPD. 3. Hypertension. 4. Angioplasty with stent at [facility]. 5. Generalized chronic pain. 6. Has had cervical fracture. 7. Severe diverticulitis with bowel resection resulting in ileostomy about 5 years ago. 8. Bilateral Raynaud syndrome. PAST SURGICAL HISTORY: 1. Bowel resection leading to ileostomy. 2. Cardiac cath with stent at [facility]. 3. Cystoscopy for bladder repair. 4. Abdominal abscess with surgical intervention. 5. Right inguinal hernia repair with mesh. PSYCH HISTORY: Depression. SOCIAL HISTORY: The patient has been smoking a pack and a half a day for most of his life, over 45 years; now down to half a pack a day. He averages about 4 vodka or bourbon drinks per day. FAMILY HISTORY: Father had coronary artery disease. HOME MEDICATIONS: 1. Tylenol 650 mg q.6 p.r.n. 2. Sodium bicarb 650 mg b.i.d. 3. Protonix 40 mg p.o. daily. 4. Reglan 5 mg before meals t.i.d. 5. [place] 7.5 one to two tablets q.6 p.r.n. 6. Neurontin 100 mg t.i.d. 7. Symbicort 160/4.5 two puffs b.i.d. 8. Ventolin HFA 1 or 2 puffs q.6 p.r.n. 9. Folic acid 1 mg p.o. daily. 10.Vitamin B12 1000 mcg p.o. daily. 11.Plavix 75 mg p.o. daily. 12.Lipitor 80 mg at bedtime. 13.Aspirin 81 mg p.o. daily. ALLERGIES: NONE. PHYSICAL EXAMINATION: Temperature 98.4, pulse 70, respiration 20, blood pressure 132/66, pulse ox 96% on room air. GENERAL APPEARANCE: Thin build. BMI 18.6. Lying in bed. EYES: Pupils equal. Conjunctivae pale. HEENT: External appearance of nose and ears normal. Oral cavity dry. NECK: JVD not raised. Mass not palpable. RESPIRATORY: Effort increased. LUNGS: Decreased breath sounds. Expiratory wheezing. CARDIOVASCULAR: First and second sounds normal. No edema. ABDOMEN: Soft, non-tender. Liver and spleen not palpable. Ileostomy bag in place. LYMPHATIC: No lymph node palpable in neck or axillae. PSYCHIATRY: Alert and oriented x3. Mood and affect normal. NEUROLOGICAL: Pupils equal. Cranial nerves grossly intact. Power and sensation grossly intact. MUSCULOSKELETAL: Evidence of osteoarthritis, especially in the hands. INVESTIGATIONS: White count 6.6, hemoglobin 10.1, MCV 105.3, platelets 671, potassium 4.2. BUN and creatinine are normal. Albumin is 2.9. ASSESSMENT: 1. This patient with nausea, vomiting, epigastric pain. The patient has been drinking for quite a while alcohol and also has got antiplatelet agents that probably are causing severe gastritis. Patient will need an EGD to rule out any peptic ulcer disease. 2. History of atrial fibrillation. Will do an EKG. 3. Chronic obstructive pulmonary disease in a current smoker. 4. Chronic nicotine dependence. Patient is a cigarette smoker. 5. Essential hypertension. 6. Coronary artery disease with stent 6 weeks ago at [facility]. 7. Chronic ileostomy following surgery for diverticulitis. 8. Raynaud disease in a patient who is a smoker. 9. Left hip hemiarthroplasty on 05/11/[address] Cedric Reed. PLAN: Will consult GI with a view to EGD. Patient will be put on PPIs. Will check patient's vitamin B12 level. Other home medications are resumed. The patient will be put on a clear liquid diet. The patient's recent echocardiogram showed an EF of 55% to 60%. Patient will be put on breathing treatments, inhaled steroids and a nicotine patch. Care was discussed with the patient. Questions were answered. MMODL / IJN: [id number] /
[2018-06-02 02:27] LABS: Anisocytosis Slight; Basophils % (A) 1 %; Eosinophils # (A) 0.2 k/uL (0-0.7); Eosinophils % (A) 3 %; HCT 28.2 % (39.0-53.0); HGB 8.8 gm/dL (13.0-17.5); Hypochromasia Moderate; Lymphocytes # (A) 1.6 k/uL (1.0-4.8); Lymphocytes % (A) 27 %; MCH 33.2 pg (25.0-35.0); MCHC 31.1 g/dL (31.0-37.0); MCV 106.6 fL (80.0-100.0); Macrocytosis Marked; Monocytes # (A) 0.8 k/uL (0-1.0); Monocytes % (A) 13 %; Neutrophils # (A) 3.1 k/uL (1.3-7.7); Neutrophils % (A) 54 %; Platelet Count 576 k/uL (150-450); RBC 2.64 m/uL (4.30-5.90); RDW 17.5 % (11.5-15.5); WBC 5.8 k/uL (3.8-10.6)
[2018-06-02] MEDS: SODIUM CHLORIDE 0.9% 1,000 ML IV SCH ×2 (04:33→12:39)
[2018-06-02] MEDS: HYDROcodone/APAP 7.5-325MG 1 EACH TAB PO PRN ×3 (04:47→23:38)
[2018-06-02] MEDS: CYANOCOBALAMIN 500 MCG TAB PO SCH (07:55)
[2018-06-02] MEDS: METOCLOPRAMIDE 5 MG TAB PO SCH ×3 (07:55→18:07)
[2018-06-02] MEDS: NICOTINE 21MG/24HR PATCH TRANSDERM SCH (07:55)
[2018-06-02] MEDS: FOLIC ACID 1 MG TAB PO SCH (07:55)
[2018-06-02] MEDS: SODIUM BICARBONATE TAB 650 MG TAB PO SCH ×2 (07:55→22:08)
[2018-06-02] MEDS: GABAPENTIN 100 MG CAP PO SCH ×3 (07:55→22:08)
[2018-06-02] MEDS: PANTOPRAZOLE 40 MG/10 ML VIAL IVP SCH ×2 (07:56→22:08)
[2018-06-02 08:09] LABS: Anisocytosis Slight; HCT 28.4 % (39.0-53.0); HGB 8.6 gm/dL (13.0-17.5); Hypochromasia Moderate; MCH 32.6 pg (25.0-35.0); MCHC 30.4 g/dL (31.0-37.0); MCV 107.3 fL (80.0-100.0); Macrocytosis Marked; Mean Platelet Volume 7.3; Platelet Count 530 k/uL (150-450); RBC 2.65 m/uL (4.30-5.90); RDW 17.6 % (11.5-15.5); WBC 5.4 k/uL (3.8-10.6)
[2018-06-02 08:32] LABS: ALT 22 U/L (21-72); AST 19 U/L (17-59); Albumin 2.4 g/dL (3.5-5.0); Alkaline Phosphatase 77 U/L (38-126); Anion Gap 5 mmol/L; Blood Urea Nitrogen 5 mg/dL (9-20); Calcium 8.7 mg/dL (8.4-10.2); Carbon Dioxide 23 mmol/L (22-30); Chloride 107 mmol/L (98-107); Glucose 74 mg/dL (74-99); Potassium 3.6 mmol/L (3.5-5.1); Sodium 135 mmol/L (137-145); Total Bilirubin 0.6 mg/dL (0.2-1.3); Total Protein 4.9 g/dL (6.3-8.2)
[2018-06-02 08:58] LABS: Eosinophils # (M) 0.05 k/uL (0-0.7); Lymphocytes # (M) 0.76 k/uL (1.0-4.8); Monocytes # (M) 0.59 k/uL (0-1.0); Neutrophils % (M) 74 %; Nucleated Red Blood Cells 0 /100 WBC (0-0); Total Cells Counted 100
[2018-06-02] MEDS ORDERED: CLOPIDOGREL 75 MG TAB PO SCH (09:00)
[2018-06-02] MEDS ORDERED: ASPIRIN 81 MG PO SCH (09:00)
[2018-06-02] MEDS ORDERED: ENOXAPARIN 40 MG/0.4 ML SYRINGE SQ SCH (09:00)
[2018-06-02] MEDS ORDERED: PANTOPRAZOLE 40 MG TABLET PO SCH (09:00)
[2018-06-02] MEDS: IPRATROPIUM-ALBUTEROL 3 ML NEB INHALATION SCH ×4 (09:15→21:14)
[2018-06-02] MEDS: BUDESONIDE 1 MG/2 ML NEBU INHALATION SCH ×2 (09:15→21:14)
[2018-06-02] MEDS: FORMOTEROL FUMARATE 20 MCG/2 ML NEBU INHALATION SCH ×2 (09:15→21:14)
--- NOTE | 2018-06-02 11:55 | P.CONS ---
History of Present Illness - Reason for Consult Consult date: 06/02/18 GI bleed Requesting physician: Paddy Mendoza - Chief Complaint Coffee-ground emesis and melena - History of Present Illness 62-year-old gentleman with a history of EtOH abuse drinks 2 vodka drinks daily, atrial fibrillation, COPD, hypertension, CAD PCI stent 6 weeks ago maintained on dual antiplatelet therapy., chronic pain, complications from colonoscopy about 4 years ago resulting in bowels surgery and ileostomy placement. Patient presents with reports of coffee-ground emesis and black colored bowel movements with mild midabdominal epigastric discomfort from his ileostomy the last week. He drinks 2 vodka drinks on a daily basis. No history of peptic ulcer disease or GI bleeds. No recent EGD. Admission hemoglobin 10.1 presently 8.6. Platelet 530. MCV 107. INR 1.1. BUN 5. Crit 0.7. LFTs stable. Lipase 22. FOBT positive. CT abdomen fluid distended stomach jejunal loops may reflect gastritis no obstruction seen. Review of Systems Constitutional: Denies fever, chills, sweats, weight gain, or loss. HEENT: Negative for migraines, blurred vision or loss, earaches, drainage, tinnitus, oral mucosal lesions, dysphagia, or odynophagia. Cardiac: Negative for chest pain, arrhythmias, or palpitation. Respiratory: Negative for shortness of breath, hemoptysis, cough, or sputum production. Gastrointestinal: See HPI for pertinent findings. Genitourinary: Negative for hematuria, urgency, frequency, polyuria, dysuria, or penile discharge. Musculoskeletal: Negative for muscle aches, swelling, arthritis, and arthralgia s. Neurologic: Negative for stroke or TIA. Endocrine: Negative for thyroid problems. Skin: Negative for rash or itching. Psychiatric: Negative history for depression and anxiety Past Medical History Past Medical History: Atrial Fibrillation, COPD, Hypertension Additional Past Medical History / Comment(s): Pt states he recently had PCI with stents about 6 weeks ago at [facility], generalized chronic pain, past multiple fractures including cervical fracture, severe diverticulitis with bowel resection/ileostomy and had bladder injury during surgery which required surgery then devloped an abdominal abscess which also required surgery, recent acute renal failure possibly d/t dehydration, bilateral Raynauld's syndrome-states fingers are always painful and numb/discoloration. 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 Past Anesthesia/Blood Transfusion Reactions: No Reported Reaction Date of Last Stent Placement:: 12/06/17 Past Psychological History: Depression Additional Psychological History / Comment(s): Pt states he was released from shelter 01/18/18 and returned to his apartment. He has a nebulizer but wonders if he could get home oxygen. He no longer drives, he is able to get rides to appts. Smoking Status: Current every day smoker Past Alcohol Use History: Daily Additional Past Alcohol Use History / Comment(s): Pt started smoking in 1967 and was a pack to a pack and a half smoker until recently, he is down to 1/2 ppd. He states he drinks daily and average amount is 4 vodka or bourbon drinks per day. Past Drug Use History: None Reported - Past Family History Father Family Medical History: Myocardial Infarction (ME) Additional Family Medical History / Comment(s): Father had 3 MIs, he had his first one at the age of 50 yrs. He at the age of 85 yrs. Mother Family Medical History: No Reported History Additional Family Medical History / Comment(s): Mother was healthy and lived to be 94 or 95 yrs old. Medications and Allergies Home Medications Medication Instructions Recorded Confirmed Type Folic Acid 1 mg PO DAILY 01/25/18 06/01/18 History Albuterol Inhaler [Ventolin Hfa 1 - 2 puff INHALATION RT-Q6H PRN 01/31/18 06/01/18 Rx Inhaler] #1 inhaler Aspirin 81 mg PO DAILY #30 chew 01/31/18 06/01/18 Rx Atorvastatin [Lipitor] 80 mg PO HS #30 tab 01/31/18 06/01/18 Rx Clopidogrel [Plavix] 75 mg PO DAILY #30 tab 01/31/18 06/01/18 Rx Cyanocobalamin [Vitamin B-12] 1,000 mcg PO DAILY@1200 #30 tab 01/31/18 06/01/18 Rx Gabapentin [Neurontin] 100 mg PO TID #90 cap 01/31/18 06/01/18 Rx Metoclopramide [Reglan] 5 mg PO AC-TID #90 tab 01/31/18 06/01/18 Rx Pantoprazole [Protonix] 40 mg PO DAILY #30 tablet.dr 01/31/18 06/01/18 Rx Sodium Bicarbonate Tab 650 mg PO BID #60 tab 01/31/18 06/01/18 Rx Budesonide/Formoterol Fumarate 2 puff INHALATION RT-BID 05/09/18 06/01/18 History [Symbicort 160-4.5 Mcg Inhaler] HYDROcodone/APAP 7.5-325MG [[place] 1 - 2 tab PO Q6H PRN #56 tab 05/14/18 06/01/18 Rx 7.5-325] Acetaminophen [Tylenol] 650 mg PO Q6H PRN 06/01/18 06/01/18 History Allergies Allergy/AdvReac Type Severity Reaction Status Date / Time No Known Allergies Allergy Verified 06/01/18 15:45 Physical Exam Vitals: Vital Signs Temp Pulse Pulse Resp BP BP Pulse Ox 06/02/18 09:44 96 06/02/18 09:34 98 06/02/18 09:33 98 06/02/18 09:21 92 06/02/18 05:44 98.3 F 100 20 109/62 96 06/01/18 21:20 98.4 F 70 20 132/66 96 06/01/18 18:19 86 18 134/79 100 06/01/18 16:30 89 18 124/72 98 06/01/18 14:24 98.7 F 82 18 140/79 96 Intake and Output 06/01/18 06/02/18 06/02/18 22:59 06:59 14:59 Intake Total 240 Output Total 600 400 Balance -600 -400 240 Intake: Oral 240 Output: Urine 200 400 Stool 400 General appearance: The patient is alert, oriented, in no acute distress. HET: Head is normocephalic and atraumatic. Pupils are equal and reactive. Oropharynx is clear without lesions. Neck: Supple without lymphadenopathy. Trachea midline. Heart: S1 S2. Regular rate and rhythm. Lungs: No crackles or wheezes are heard. Abdomen: Soft, nontender, nondistended with bowel sounds. Left-sided ileostomy with brown near black colored liquid stools. No peritoneal signs. No palpable organomegaly or masses. Extremities: Normal skin color and turgor. No cyanosis, rash, ulceration, clubb ing, or edema. Radial and pedal pulses are 2/4 bilaterally. Neurological: No focal deficits. Strength and sensation are grossly intact. Results CBC & Chem 7: 06/02/18 07:38 06/02/18 07:38 Labs: Abnormal Lab Results - Last 24 Hours (Table) 06/01/18 06/01/18 06/01/18 Range/Units 14:53 14:53 16:18 RBC 3.05 L (4.30-5.90) m/uL Hgb 10.1 L (13.0-17.5) gm/dL Hct 32.1 L (39.0-53.0) % MCV 105.3 H D (80.0-100.0) fL MCHC (31.0-37.0) g/dL RDW 17.3 H (11.5-15.5) % Plt Count 671 H (150-450) k/uL Lymphocytes # 0.8 L (1.0-4.8) k/uL Lymphocytes # (Manual) (1.0-4.8) k/uL Sodium 134 L (137-145) mmol/L BUN 5 L (9-20) mg/dL Glucose 111 H (74-99) mg/dL ALT 13 L (21-72) U/L Total Protein 5.7 L (6.3-8.2) g/dL Albumin 2.9 L (3.5-5.0) g/dL Amylase <30 L (30-110) U/L Lipase 22 L (23-300) U/L Urine Protein Trace H (Negative) 06/02/18 06/02/18 06/02/18 Range/Units 02:05 07:38 07:38 RBC 2.64 L 2.65 L (4.30-5.90) m/uL Hgb 8.8 L 8.6 L (13.0-17.5) gm/dL Hct 28.2 L 28.4 L (39.0-53.0) % MCV 106.6 H 107.3 H (80.0-100.0) fL MCHC 30.4 L (31.0-37.0) g/dL RDW 17.5 H 17.6 H (11.5-15.5) % Plt Count 576 H 530 H (150-450) k/uL Lymphocytes # (1.0-4.8) k/uL Lymphocytes # (Manual) 0.76 L (1.0-4.8) k/uL Sodium 135 L (137-145) mmol/L BUN 5 L (9-20) mg/dL Glucose (74-99) mg/dL ALT (21-72) U/L Total Protein 4.9 L (6.3-8.2) g/dL Albumin 2.4 L (3.5-5.0) g/dL Amylase (30-110) U/L Lipase (23-300) U/L Urine Protein (Negative) CT scan - abdomen: report reviewed (Dr. Raman) Assessment and Plan (1) GI bleed Narrative/Plan: 62-year-old gentleman admitted with macrocytic anemia acute abdominal pain coffee-ground emesis black colored bowel movements with underlying history of EtOH abuse CAD with recent PCI stenting 6 weeks ago maintained on dual antiplatelet therapy suggestive of acute GI bleed possible peptic ulcer disease underlying varices could not be excluded. Other differentials to consider bleeding AVM erosive esophagitis gastritis and duodenitis possible portal hypertensive gastropathy. Current Visit: Yes Status: Acute Code(s): K92.2 - GASTROINTESTINAL HEMORRHAGE, UNSPECIFIED SNOMED Code(s): 82244203 (2) Acute blood loss anemia Current Visit: Yes Status: Acute Code(s): D62 - ACUTE POSTHEMORRHAGIC ANEMIA SNOMED Code(s): 845688936 (3) H/O heart artery stent Current Visit: Yes Status: Acute Code(s): Z95.5 - PRESENCE OF CORONARY ANGIOPLASTY IMPLANT AND GRAFT SNOMED Code(s): 695523754 (4) Abdominal pain Current Visit: Yes Status: Acute Code(s): R10.9 - UNSPECIFIED ABDOMINAL PAIN SNOMED Code(s): 75980069 (5) Ileostomy in place Current Visit: Yes Status: Chronic Code(s): Z93.2 - ILEOSTOMY STATUS SNOMED Code(s): 882460009 (6) ETOH abuse Current Visit: Yes Status: Acute Code(s): F10.10 - ALCOHOL ABUSE, UNCOMPLICATED SNOMED Code(s): 92903844 Plan: 1. CBC daily. Protonix 40 mg twice daily. Will allow full liquid diet today. Nothing by mouth after midnight for EGD evaluation tomorrow patient drank clear liquid breakfast late this morning. Hold morning dose of Lovenox. The informatica has discussed the risks, benefits and alternative therapies for the above-mentioned procedure and for both sedation/analgesia as well as necessary blood product administration, if indicated, as they pertain to this patient. The patient has indicated understanding and acceptance of the risks and procedures discussed. Thank you for this kind referral and the opportunity to participate in the care of your patient. This consultation was discussed with Dr. Raman. The impression and plan of care have been directed as dictated.
--- NOTE | 2018-06-02 14:07 | P.CRDCN ---
History of Present Illness History of present illness: This is a 62-year-old male past medical history significant for coronary artery disease status post stent placement to the proximal RCA in November 2017, COPD, chronic nicotine dependence, diverticulitis status post ileostomy, chronic nicotine dependence and alcohol use regularly. He presented to the hospital and recommendation from his home care nurse secondary to nausea and vomiting coffee-ground emesis. Fecal occult blood is positive. He denies symptoms of chest discomfort, shortness of breath, dizziness or palpitations. He has been seen in consultation by GI services and the plan for an EGD tomorrow. EKG reveals sinus mechanism with poor R-wave progression. CT of the abdomen and pelvis reveals fluid distended stomach and jejunal loops reflective of gastroenteritis, small bilateral pleural effusions and left lower quadrant ostomy. Laboratory data reviewed, hemoglobin on admission 10.1 down to 8.6 this morning, platelets 530, sodium 135, potassium 3.6, creatinine 0.88, cardiac enzymes negative 1. Stool positive for occult blood. Current cardiac medications include aspirin 81 mg daily, atorvastatin 80 mg daily, Plavix 75 mg daily. Most recent echocardiogram obtained earlier this month on the fourth revealed preserved left ventricular systolic function with ejection fraction 55-60%. At the time of my exam: CONSTITUTIONAL: Denies fever. Denies chills. EYES: Denies blurred vision. Denies vision changes. Denies eye pain. EARS, NOSE, MOUTH & THROAT: Denies headache. Denies sore throat. Denies ear pain. CARDIOVASCULAR: Denies chest pain. Denies shortness of breath. Denies orthopnea. Denies PND. Denies palpitations. RESPIRATORY: Denies cough. GASTROINTESTINAL: Denies abdominal pain. Denies diarrhea. Denies constipation. Denies nausea. Denies vomiting. MUSCULOSKELETAL: Denies myalgias. INTEGUMENTARY: Denies pruitis. Denies rash. NEUROLOGIC: Denies numbness. Denies tingling. Denies weakness. PSYCHIATRIC: Denies anxiety. Denies depression. ENDOCRINE: Denies fatigue. Denies weight change. Denies polydipsia. Denies polyurina. GENITOURINARY: Denies burning, hematuria or urgency with micturation. HEMATOLOGIC: Denies history of anemia. Denies bleeding. Blood pressure 109/62 heart rate 100 afebrile maintaining oxygen saturation on room air GENERAL: This is a 62-year-old male in no apparent distress at the time of my examination. HEENT: Head is atraumatic, normocephalic. Pupils are equal, round. Sclerae anicteric. Conjunctivae are clear. Mucous membranes of the mouth are moist. Neck is supple. There is no jugular venous distention. No carotid bruit is heard. LUNGS: Clear to auscultation no wheezes, rales or rhonchi. No chest wall tenderness is noted on palpation or with deep breathing. HEART: Regular rate and rhythm without murmurs, rubs or gallops. S1 and S2 heard. ABDOMEN: Soft, nontender. Ileostomy in place. EXTREMITIES: No evidence of peripheral edema and no calf tenderness noted. VASCULAR: Radial and dorsalis pedis pulses palpated, no evidence of clubbing. NEUROLOGIC: Patient is awake, alert and oriented x3. ASSESSMENT Acute GI bleeding History of coronary artery disease with stent placement November 2017 to the proximal RCA, currently maintained on dual antiplatelet therapy Dyslipidemia COPD Chronic nicotine dependence Daily alcohol use History of diverticulitis with ileostomy in place PLAN Hold aspirin and plavix. After EGD, if no acute bleeding can resume plavix only. Continue atorvastatin. Recommend smoking and alcohol cessation. Thank you kindly for this consultation. Nurse Practitioner note has been reviewed, I agree with a documented findings and plan of care. Patient was seen and examined. Past Medical History Past Medical History: Atrial Fibrillation, COPD, Hypertension Additional Past Medical History / Comment(s): Pt states he recently had PCI with stents about 6 weeks ago at [facility], generalized chronic pain, past multiple fractures including cervical fracture, severe diverticulitis with bowel resection/ileostomy and had bladder injury during surgery which required surgery then devloped an abdominal abscess which also required surgery, recent acute renal failure possibly d/t dehydration, bilateral Raynauld's syndrome-states fingers are always painful and numb/discoloration. 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 Past Anesthesia/Blood Transfusion Reactions: No Reported Reaction Date of Last Stent Placement:: 12/06/17 Past Psychological History: Depression Additional Psychological History / Comment(s): Pt states he was released from custodial 01/18/18 and returned to his apartment. He has a nebulizer but wonders if he could get home oxygen. He no longer drives, he is able to get rides to appts. Smoking Status: Current every day smoker Past Alcohol Use History: Daily Additional Past Alcohol Use History / Comment(s): Pt started smoking in 1967 and was a pack to a pack and a half smoker until recently, he is down to 1/2 ppd. He states he drinks daily and average amount is 4 vodka or bourbon drinks per day. Past Drug Use History: None Reported - Past Family History Father Family Medical History: Myocardial Infarction (CT) Additional Family Medical History / Comment(s): Father had 3 MIs, he had his first one at the age of 50 yrs. He at the age of 85 yrs. Mother Family Medical History: No Reported History Additional Family Medical History / Comment(s): Mother was healthy and lived to be 94 or 95 yrs old. Medications and Allergies Home Medications Medication Instructions Recorded Confirmed Type Folic Acid 1 mg PO DAILY 01/25/18 06/01/18 History Albuterol Inhaler [Ventolin Hfa 1 - 2 puff INHALATION RT-Q6H PRN 01/31/18 06/01/18 Rx Inhaler] #1 inhaler Aspirin 81 mg PO DAILY #30 chew 01/31/18 06/01/18 Rx Atorvastatin [Lipitor] 80 mg PO HS #30 tab 01/31/18 06/01/18 Rx Clopidogrel [Plavix] 75 mg PO DAILY #30 tab 01/31/18 06/01/18 Rx Cyanocobalamin [Vitamin B-12] 1,000 mcg PO DAILY@1200 #30 tab 01/31/18 06/01/18 Rx Gabapentin [Neurontin] 100 mg PO TID #90 cap 01/31/18 06/01/18 Rx Metoclopramide [Reglan] 5 mg PO AC-TID #90 tab 01/31/18 06/01/18 Rx Pantoprazole [Protonix] 40 mg PO DAILY #30 tablet 01/31/18 06/01/18 Rx Sodium Bicarbonate Tab 650 mg PO BID #60 tab 01/31/18 06/01/18 Rx Budesonide/Formoterol Fumarate 2 puff INHALATION RT-BID 05/09/18 06/01/18 History [Symbicort 160-4.5 Mcg Inhaler] HYDROcodone/APAP 7.5-325MG [[place] 1 - 2 tab PO Q6H PRN #56 tab 05/14/18 06/01/18 Rx 7.5-325] Acetaminophen [Tylenol] 650 mg PO Q6H PRN 06/01/18 06/01/18 History Allergies Allergy/AdvReac Type Severity Reaction Status Date / Time No Known Allergies Allergy Verified 06/01/18 15:45 Physical Exam Vitals: Vital Signs Temp Pulse Pulse Resp BP BP Pulse Ox 06/02/18 13:43 100 06/02/18 09:44 96 06/02/18 09:34 98 06/02/18 09:33 98 06/02/18 09:21 92 06/02/18 05:44 98.3 F 100 20 109/62 96 06/01/18 21:20 98.4 F 70 20 132/66 96 06/01/18 18:19 86 18 134/79 100 06/01/18 16:30 89 18 124/72 98 06/01/18 14:24 98.7 F 82 18 140/79 96 Intake and Output 06/01/18 06/02/18 06/02/18 22:59 06:59 14:59 Intake Total 240 Output Total 600 400 Balance -600 -400 240 Intake: Oral 240 Output: Urine 200 400 Stool 400 Results 06/02/18 07:38 06/02/18 07:38 Cardiac Enzymes 06/01/18 06/01/18 06/02/18 Range/Units 14:53 14:53 07:38 AST 17 19 (17-59) U/L Troponin I <0.012 (0.000-0.034) ng/mL Coagulation 06/01/18 Range/Units 14:53 PT 11.6 (9.0-12.0) sec APTT 28.9 (22.0-30.0) sec CBC 06/01/18 06/02/18 06/02/18 Range/Units 14:53 02:05 07:38 WBC 6.6 5.8 5.4 (3.8-10.6) k/uL RBC 3.05 L 2.64 L 2.65 L (4.30-5.90) m/uL Hgb 10.1 L 8.8 L 8.6 L (13.0-17.5) gm/dL Hct 32.1 L 28.2 L 28.4 L (39.0-53.0) % Plt Count 671 H 576 H 530 H (150-450) k/uL Comprehensive Metabolic Panel 06/01/18 06/02/18 Range/Units 14:53 07:38 Sodium 134 L 135 L (137-145) mmol/L Potassium 4.2 3.6 (3.5-5.1) mmol/L Chloride 101 107 (98-107) mmol/L Carbon Dioxide 26 23 (22-30) mmol/L BUN 5 L 5 L (9-20) mg/dL Creatinine 0.77 0.88 (0.66-1.25) mg/dL Glucose 111 H 74 (74-99) mg/dL Calcium 9.1 8.7 (8.4-10.2) mg/dL AST 17 19 (17-59) U/L ALT 13 L 22 (21-72) U/L Alkaline Phosphatase 98 77 (38-126) U/L Total Protein 5.7 L 4.9 L (6.3-8.2) g/dL Albumin 2.9 L 2.4 L (3.5-5.0) g/dL Current Medications Generic Name Dose Route Start Last Admin Trade Name Freq PRN Reason Stop Dose Admin Acetaminophen 650 mg 06/01/18 17:02 Tylenol Tab PO Q6H PRN Pain Hydrocodone Bitart/Acetaminophen 1 each 06/01/18 17:03 06/02/18 04:47 [place] 7.5-325 PO 1 each Q6H PRN Administration Pain Albuterol/Ipratropium 3 ml 06/02/18 08:00 06/02/18 13:43 Duoneb 0.5 Mg-3 Mg/3 Ml Soln INHALATION 3 ml RT-QID MARTI Administration Atorvastatin Calcium 80 mg 06/01/18 21:00 06/01/18 21:40 Lipitor PO 80 mg HS MARTI Administration Budesonide 1 mg 06/02/18 08:00 06/02/18 09:15 Pulmicort INHALATION 1 mg RT-BID MARTI Administration Clopidogrel Bisulfate 75 mg 06/02/18 09:00 06/02/18 07:55 Plavix PO 75 mg DAILY MARTI Administration Cyanocobalamin 1,000 mcg 06/02/18 12:00 06/02/18 07:55 Vitamin B-12 PO 1,000 mcg DAILY@1200 MARTI Administration Folic Acid 1 mg 06/02/18 12:00 06/02/18 07:55 Folic Acid PO 1 mg 1200 MARTI Administration Formoterol Fumarate 20 mcg 06/02/18 08:00 06/02/18 09:15 Perforomist INHALATION 20 mcg RT-BID MARTI Administration Gabapentin 100 mg 06/01/18 22:00 06/02/18 07:55 Neurontin PO 100 mg TID MARTI Administration Sodium Chloride 1,000 mls @ 100 mls/hr 06/01/18 16:45 06/02/18 12:39 Saline 0.9% IV 100 mls/hr .Q10H MARTI Administration Metoclopramide HCl 5 mg 06/01/18 17:30 06/02/18 12:39 Reglan PO 5 mg AC-TID MARTI Administration Naloxone HCl 0.2 mg 06/01/18 16:35 Narcan IV Q2M PRN Opioid Reversal Nicotine 1 patch 06/01/18 23:00 06/02/18 07:55 Habitrol 21mg/24hr Patch TRANSDERM 1 patch DAILY MARTI Administration Ondansetron HCl 4 mg 06/01/18 16:35 Zofran IVP Q8HR PRN Nausea And Vomiting Pantoprazole Sodium 40 mg 06/01/18 21:00 06/02/18 07:56 Protonix IVP 40 mg BID MARTI Administration Sodium Bicarbonate 650 mg 06/01/18 21:00 06/02/18 07:55 Sodium Bicarbonate Tab PO 650 mg BID MARTI Administration Intake and Output 06/01/18 06/02/18 06/02/18 22:59 06:59 14:59 Intake Total 240 Output Total 600 400 Balance -600 -400 240 Intake: Oral 240 Output: Urine 200 400 Stool 400 06/02/18 07:38 06/02/18 07:38
--- NOTE | 2018-06-02 21:47 | PN ---
PROGRESS NOTE DATE OF SERVICE: June 02, 2018. PRESENTING COMPLAINT: Nausea, vomiting. INTERVAL HISTORY: The patient has multiple issues, including recent coronary stent 6 weeks ago at [facility], recent hip fracture repair by Dr. Reed. Presented with nausea, vomiting. Seen by GI today. Will proceed with endoscopy tomorrow. Patient also seen by Cardiology. REVIEW OF SYSTEMS: Done for constitutional, cardiovascular, GI, pulmonary, relevant findings as above. CURRENT MEDICATIONS: Reviewed. The patient is on DuoNeb, Lipitor, Ventolin. PHYSICAL EXAMINATION: VITAL SIGNS: Temperature 98.3. Pulse 100, respirations 20, blood pressure 109/62, pulse ox 96 percent on room air. GENERAL APPEARANCE: Lying in bed tired-appearing. EYES: Pupils equal. Conjunctivae normal. NECK: JVD not raised. Mass not palpable. RESPIRATORY: Effort normal. LUNGS: Decreased breath sounds. Some wheezing. CARDIOVASCULAR: 1st and 2nd sounds normal. No edema. ABDOMEN: Soft, nontender. Liver and spleen not palpable. Ileostomy bag in place. PSYCHIATRY: Alert and oriented x3. Mood and affect normal. INVESTIGATIONS: White count 5.4, hemoglobin 8.6, potassium 3.6. ASSESSMENT: 1. Patient with nausea, vomiting, epigastric pain, probably rule out peptic ulcer disease. 2. History of atrial fibrillation. 3. Chronic obstructive pulmonary disease in a current smoker. 4. Chronic nicotine dependence, patient is a cigarette smoker. 5. Essential hypertension. 6. Coronary artery disease with stent 6 weeks ago at [facility]. 7. Chronic ileostomy following surgery for diverticulitis. 8. Raynaud disease in the patient who is a smoker. 9. Left hip hemiarthroplasty on May 11, [address] Cedric Reed. PLAN: Patient will be getting EGD tomorrow. Antiplatelet agents as per Cardiology and decision with GI. Care was discussed with the patient. Follow. Per Cardiology, aspirin and Plavix to be held for right now. MMODL / IJN: [id number] /
[2018-06-02] MEDS: ATORVASTATIN 80 MG TAB PO SCH (22:08)
[2018-06-03] MEDS: SODIUM CHLORIDE 0.9% 1,000 ML IV SCH ×3 (00:14→16:59)
[2018-06-03] MEDS ORDERED: LACTATED RINGERS 1,000 ML IV SCH (05:30)
[2018-06-03] MEDS: CYANOCOBALAMIN 500 MCG TAB PO SCH (07:45)
[2018-06-03] MEDS: PANTOPRAZOLE 40 MG/10 ML VIAL IVP SCH ×2 (07:45→20:37)
[2018-06-03] MEDS: METOCLOPRAMIDE 5 MG TAB PO SCH ×3 (07:45→16:59)
[2018-06-03] MEDS: FOLIC ACID 1 MG TAB PO SCH (07:45)
[2018-06-03] MEDS: IPRATROPIUM-ALBUTEROL 3 ML NEB INHALATION SCH ×4 (07:49→20:33)
[2018-06-03] MEDS: BUDESONIDE 1 MG/2 ML NEBU INHALATION SCH ×2 (07:50→20:33)
[2018-06-03] MEDS: FORMOTEROL FUMARATE 20 MCG/2 ML NEBU INHALATION SCH ×2 (07:50→20:33)
[2018-06-03] MEDS: SODIUM BICARBONATE TAB 650 MG TAB PO SCH ×2 (09:13→20:37)
[2018-06-03] MEDS: GABAPENTIN 100 MG CAP PO SCH ×3 (09:13→20:37)
[2018-06-03] MEDS: NICOTINE 21MG/24HR PATCH TRANSDERM SCH (09:14)
--- NOTE | 2018-06-03 13:04 | P.GSCN ---
History of Present Illness Consult date: 06/03/18 Reason for Consult: reversal of ostomy Requesting physician: Kwabena Raman History of present illness: CHIEF COMPLAINT: reversal of ostomy HISTORY OF PRESENT ILLNESS: 62-year-old male who was admitted to hospital secondary to GI bleeding. General surgery was consulted for reversal of ostomy. Patient evaluated at the bedside. Patient does not appear to be the best historian and details of his medical history are not completely clear when patient is attempting to explain course of events. Patient reports he had a colonoscopy 4 years ago and they "hacked him all up". Patient reports he had issues with his bladder and also ended up with a colostomy. He reports he saw a doctor James Perales out of [place] about two years ago. He reports he was supposed to have his ostomy reversed but reports the surgeon was unable to reverse it. He states "He was unable to reverse it and I ended up with an ileostomy. He was able to use the same hole that my colostomy was coming out of". PAST MEDICAL HISTORY: See list. PAST SURGICAL HISTORY: See list. SOCIAL HISTORY: No illicit drug use. REVIEW OF SYSTEMS: CONSTITUTIONAL: Denies fever or chills. HEENT: Denies blurred vision, vision changes, or eye pain. Denies hemoptysis CARDIOVASCULAR: Denies chest pain or pressure. RESPIRATORY: No shortness of breath. GASTROINTESTINAL: Refer to HPI for pertinent findings HEMATOLOGIC: Denies bleeding disorders. GENITOURINARY: Denies any blood in urine. SKIN: Denies pruitis. Denies rash. PHYSICAL EXAM: VITAL SIGNS: Reviewed. GENERAL: Well-developed in no acute distress. HEENT: No sclera icterus. Extraocular movements grossly intact. Moist buccal mucosa. Head is atraumatic, normocephalic. ABDOMEN: Soft. Nondistended. Nontender. Ostomy present to left lower quadrant with stool and gas present. NEUROLOGIC: Alert and oriented. Cranial nerves II through XII grossly intact. ASSESSMENT: 1. S/P ileostomy secondary to complications from colonoscopy PLAN: 1. Obtain surgical records from Dr. James Perales. Please notify Brisa Osman NP when records are received 2. Patient may follow up with Dr. Medina outpatient for further evaluation into reversal of ileostomy Nurse practitioner note has been reviewed by physician. Signing provider agrees with the documented findings, assessment, and plan of care. 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 Past Anesthesia/Blood Transfusion Reactions: No Reported Reaction Date of Last Stent Placement:: 12/06/17 Past Psychological History: Depression Additional Psychological History / Comment(s): Pt states he was released from [facility] 01/18/18 and returned to his apartment. He has a nebulizer but wonders if he could get home oxygen. He no longer drives, he is able to get rides to appts. Smoking Status: Current every day smoker Past Alcohol Use History: Daily Additional Past Alcohol Use History / Comment(s): Pt started smoking in 1967 and was a pack to a pack and a half smoker until recently, he is down to 1/2 ppd. He states he drinks daily and average amount is 4 vodka or bourbon drinks per day. Past Drug Use History: None Reported - Past Family History Father Family Medical History: Myocardial Infarction ([place]) Additional Family Medical History / Comment(s): Father had 3 MIs, he had his first one at the age of 50 yrs. He at the age of 85 yrs. Mother Family Medical History: No Reported History Additional Family Medical History / Comment(s): Mother was healthy and lived to be 94 or 95 yrs old. Medications and Allergies Home Medications Medication Instructions Recorded Confirmed Type Folic Acid 1 mg PO DAILY 01/25/18 06/01/18 History Albuterol Inhaler [Ventolin Hfa 1 - 2 puff INHALATION RT-Q6H PRN 01/31/18 06/01/18 Rx Inhaler] #1 inhaler Aspirin 81 mg PO DAILY #30 chew 01/31/18 06/01/18 Rx Atorvastatin [Lipitor] 80 mg PO HS #30 tab 01/31/18 06/01/18 Rx Clopidogrel [Plavix] 75 mg PO DAILY #30 tab 01/31/18 06/01/18 Rx Cyanocobalamin [Vitamin B-12] 1,000 mcg PO DAILY@1200 #30 tab 01/31/18 06/01/18 Rx Gabapentin [Neurontin] 100 mg PO TID #90 cap 01/31/18 06/01/18 Rx Metoclopramide [Reglan] 5 mg PO AC-TID #90 tab 01/31/18 06/01/18 Rx Pantoprazole [Protonix] 40 mg PO DAILY #30 tablet.dr 01/31/18 06/01/18 Rx Sodium Bicarbonate Tab 650 mg PO BID #60 tab 01/31/18 06/01/18 Rx Budesonide/Formoterol Fumarate 2 puff INHALATION RT-BID 05/09/18 06/01/18 History [Symbicort 160-4.5 Mcg Inhaler] HYDROcodone/APAP 7.5-325MG [[place] 1 - 2 tab PO Q6H PRN #56 tab 05/14/18 06/01/18 Rx 7.5-325] Acetaminophen [Tylenol] 650 mg PO Q6H PRN 06/01/18 06/01/18 History Allergies Allergy/AdvReac Type Severity Reaction Status Date / Time No Known Allergies Allergy Verified 06/01/18 15:45 Surgical - Exam Vital Signs Temp Pulse Resp BP Pulse Ox 98.7 F 82 18 140/79 96 06/01/18 14:24 06/01/18 14:24 06/01/18 14:24 06/01/18 14:24 06/01/18 14:24 Results - Labs 06/02/18 07:38 06/02/18 07:38
[2018-06-03] MEDS ORDERED: PROPOFOL 10 MG/ML 20 ML VIAL IV ONE (14:02)
[2018-06-03] MEDS ORDERED: LIDOCAINE 1% INJ 10MG/ML (20 ML MDV) ONE (14:02)
[2018-06-03] MEDS ORDERED: IV FLUID CONTINUATION 1,000 ML IV ONE (14:05)
--- NOTE | 2018-06-03 14:39 | P.PCN ---
Date of Procedure: 06/03/18 Description of Procedure: BRIEF HISTORY: 62-year-old gentleman with a history of EtOH abuse drinks 2 vodka drinks daily, atrial fibrillation, COPD, hypertension, CAD PCI stent 6 weeks ago maintained on dual antiplatelet therapy., chronic pain, complications from colonoscopy about 4 years ago resulting in bowels surgery and ileostomy placement. Patient presents with reports of coffee-ground emesis and black colored bowel movements with mild midabdominal epigastric discomfort from his ileostomy the last week. He drinks 2 vodka drinks on a daily basis. No history of peptic ulcer disease or GI bleeds. No recent EGD. Admission hemoglobin 10.1 presently 8.6. Platelet 530. MCV 107. INR 1.1. BUN 5. Crit 0.7. LFTs stable. Lipase 22. FOBT positive. CT abdomen fluid distended stomach jejunal loops may reflect gastritis no obstruction seen.. PROCEDURE PERFORMED: Esophagogastroduodenoscopy with argon plasma coagulation ablation of a small bowel AVM. PREOPERATIVE DIAGNOSIS: Melena, anemia of acute blood loss. ESTIMATED BLOOD LOSS: Minimal. IV sedation per anesthesia. PROCEDURE: After informed consent was obtained, the patient was brought into the endoscopy unit. IV sedation was administered by Anesthesia under continuous monitoring. Initially the Olympus GIF-190 video endoscope was inserted into the mouth. Esophagus intubated without any difficulty. It was gradually advanced into the stomach and duodenum and carefully examined. The bulb and the second part of the duodenum appeared normal, except for a small nonbleeding AVM in the second portion of the duodenum. This AVM was treated with argon plasma coagulation ablation therapy. The scope at this time was withdrawn to the stomach, adequately insufflated with air, and upon careful examination, mucosa of the antrum, body, cardia and the fundus appeared normal. A small hiatal hernia was noted. The scope was then withdrawn into the esophagus. The GE junction was located at 42 cm from the incisors. The esophagus appeared normal. There were no erosions or ulcerations seen and the patient tolerated the procedure well. IMPRESSION: 1. 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 2. Small hiatal hernia. 3. No evidence of active bleeding or old blood. RECOMMENDATIONS: The findings of this examination were discussed with the patient in the nursing staff. Okay for full liquid diet. Continue to monitor hemoglobin and hematocrit and transfuse as needed. Continue to monitor for signs or symptoms of GI bleeding.
--- NOTE | 2018-06-03 18:43 | PN ---
PROGRESS NOTE DATE OF SERVICE: 06/03/2018 This 62-year-old gentleman who was admitted with nausea, vomiting and epigastric pain is being evaluated at this time. Endoscopy done by Dr. Raman showed nonbleeding duodenal AVM which was treated with argon plasma coagulation. Patient is being closely monitored. The hemoglobin has dropped to 8.6 at this time. MCV is also elevated. Past medical history reviewed. REVIEW OF SYSTEMS: CARDIOVASCULAR SYSTEM: No angina, palpitations. RESPIRATORY SYSTEM: No cough, hemoptysis. GI: As mentioned earlier. : No dysuria or retention. NERVOUS SYSTEM: No numbness, weakness. CURRENT MEDICATIONS: Reviewed. They include: 1. Tylenol 650 q.6 p.r.n. 2. Belva 7.5 q.6 p.r.n. 3. DuoNeb q.i.d. and p.r.n. 4. Lipitor 80 mg at bedtime. 5. Pulmicort 1 mg b.i.d. 6. Vitamin B12 1000 mcg p.o. daily. 7. Folic acid 1 mg b.i.d. 8. Perforomist 20 mcg p.o. daily. 9. Neurontin 100 mg t.i.d. 10.Reglan. 11.Narcan. 12.Habitrol. 13.Zofran. 14.Protonix. 15.Sodium bicarb 650 p.o. b.i.d. PHYSICAL EXAMINATION: Patient is alert, oriented x3. Pulse 90, blood pressure 90/43, respiration 18, temperature 99 degrees, pulse ox 98% on room air. HEENT: Conjunctivae normal. NECK: No jugular venous distention. CARDIOVASCULAR SYSTEM: S1, S2 muffled. RESPIRATORY SYSTEM: Breath sounds diminished at the bases. A few scattered rhonchi and crackles. ABDOMEN: Soft, obese, non-tender. No mass palpable. LEGS: No edema. No swelling. NERVOUS SYSTEM: Diffusely weak. LABS: WBC 5.4, hemoglobin 8.6, sodium 135. ASSESSMENT: 1. Nausea, vomiting, abdominal pain and epigastric pain, possibly duodenal AVM, status post EGD and argon plasma coagulation therapy. 2. Macrocytic anemia, possibly acute on chronic gastrointestinal bleed. 3. Atrial fibrillation. 4. Chronic obstructive pulmonary disease. 5. History of nicotine dependence. 6. Hypertension. 7. History of coronary artery disease, stent. 8. History of chronic ileostomy. 9. History of Raynaud's disease. 10.History of left hip hemiarthroplasty. RECOMMENDATIONS AND DISCUSSION: I recommend to continue current medications, continue with symptomatic treatment, repeat labs in the morning. Otherwise, continue with the proton pump inhibitors and close follow with GI. Continue the rest of the medications. Hold antiplatelet agents. Guarded prognosis because of multiple complex medical issues. Further recommendations to follow. Follow closely with Cardiology. See orders for further details. MMODL / IJN: [id number] /
[2018-06-03] MEDS: ATORVASTATIN 80 MG TAB PO SCH (20:37)
[2018-06-03] MEDS: HYDROcodone/APAP 7.5-325MG 1 EACH TAB PO PRN (20:37)
[2018-06-04] MEDS: SODIUM CHLORIDE 0.9% 1,000 ML IV SCH (05:23)
[2018-06-04] MEDS: IPRATROPIUM-ALBUTEROL 3 ML NEB INHALATION SCH ×3 (07:15→15:42)
[2018-06-04] MEDS: BUDESONIDE 1 MG/2 ML NEBU INHALATION SCH (07:15)
[2018-06-04] MEDS: FORMOTEROL FUMARATE 20 MCG/2 ML NEBU INHALATION SCH (07:15)
[2018-06-04] MEDS: PANTOPRAZOLE 40 MG/10 ML VIAL IVP SCH (07:35)
[2018-06-04] MEDS: METOCLOPRAMIDE 5 MG TAB PO SCH ×2 (07:35→11:17)
[2018-06-04] MEDS: NICOTINE 21MG/24HR PATCH TRANSDERM SCH (08:56)
[2018-06-04] MEDS: SODIUM BICARBONATE TAB 650 MG TAB PO SCH (08:56)
[2018-06-04] MEDS: GABAPENTIN 100 MG CAP PO SCH ×2 (08:56→15:12)
[2018-06-04 09:11] LABS: Anisocytosis Slight; Basophils % (A) 0 %; Eosinophils # (A) 0.2 k/uL (0-0.7); Eosinophils % (A) 4 %; HCT 27.7 % (39.0-53.0); HGB 8.6 gm/dL (13.0-17.5); Hypochromasia Slight; Lymphocytes % (A) 18 %; MCH 32.6 pg (25.0-35.0); MCHC 31.2 g/dL (31.0-37.0); MCV 104.5 fL (80.0-100.0); Macrocytosis Moderate; Mean Platelet Volume 6.9; Monocytes # (A) 0.9 k/uL (0-1.0); Monocytes % (A) 16 %; Neutrophils # (A) 3.5 k/uL (1.3-7.7); Neutrophils % (A) 61 %; Platelet Count 376 k/uL (150-450); RBC 2.65 m/uL (4.30-5.90); WBC 5.8 k/uL (3.8-10.6)
[2018-06-04 09:31] LABS: Anion Gap 8 mmol/L; Blood Urea Nitrogen 4 mg/dL (9-20); Calcium 8.5 mg/dL (8.4-10.2); Carbon Dioxide 22 mmol/L (22-30); Chloride 105 mmol/L (98-107); Glucose 106 mg/dL (74-99); Potassium 3.4 mmol/L (3.5-5.1); Sodium 135 mmol/L (137-145)
[2018-06-04] MEDS: FOLIC ACID 1 MG TAB PO SCH (11:16)
[2018-06-04] MEDS: CYANOCOBALAMIN 500 MCG TAB PO SCH (11:16)
[2018-06-04] MEDS ORDERED: Potassium Replacement Protocol 1 EACH MISC MISCELLANE PRN (11:31)
--- NOTE | 2018-06-04 13:13 | P.PN ---
Subjective Progress Note Date: 06/04/18 Principal diagnosis: GIB s/p EGD NB AVM s/p APC. HGB 8.6 unchanged. no bleeding. Objective - Vital Signs Vital signs: Vital Signs Temp 98.9 F 06/04/18 05:25 Pulse 90 06/04/18 07:36 Resp 18 06/04/18 05:25 BP 110/69 06/04/18 05:25 Pulse Ox 92 L 06/04/18 05:25 Intake & Output 06/03/18 06/04/18 06/04/18 18:59 06:59 18:59 Intake Total 850 875 Output Total 700 1050 375 Balance 150 -175 -375 Intake: IV 850 Sodium Chloride 0.9% 1, 800 000 ml @ 20 mls/hr IV . Q24H MARTI Rx#:[id number] Oral 875 Output: Urine 700 300 375 Stool 750 Other: Voiding Method Urinal Toilet Urinal # Voids 1 3 # Bowel Movements 0 0 # Emeses 0 - Exam NoGeneral appearance: The patient is alert, oriented, in no acute distress. HET: Head is normocephalic and atraumatic. Pupils are equal and reactive. Oropharynx is clear without lesions. Neck: Supple without lymphadenopathy. Trachea midline. Heart: S1 S2. Regular rate and rhythm. Lungs: No crackles or wheezes are heard. Abdomen: Soft, nontender, nondistended with bowel sounds. Ileostomy. No peritoneal signs. No palpable organomegaly or masses. Extremities: Normal skin color and turgor. No cyanosis, rash, ulceration, clubbing, or edema. Radial and pedal pulses are 2/4 bilaterally. Neurological: No focal deficits. Strength and sensation are grossly intact. - Labs CBC & Chem 7: 06/04/18 08:42 06/04/18 08:42 Labs: Abnormal Lab Results - Last 24 Hours (Table) 06/04/18 06/04/18 Range/Units 08:42 08:42 RBC 2.65 L (4.30-5.90) m/uL Hgb 8.6 L (13.0-17.5) gm/dL Hct 27.7 L (39.0-53.0) % MCV 104.5 H (80.0-100.0) fL RDW 17.0 H (11.5-15.5) % Sodium 135 L (137-145) mmol/L Potassium 3.4 L (3.5-5.1) mmol/L BUN 4 L (9-20) mg/dL Glucose 106 H (74-99) mg/dL Assessment and Plan (1) GI bleed Narrative/Plan: Nonbleeding AVM status post APC EGD hemoglobin stable Current Visit: Yes Status: Acute Code(s): K92.2 - GASTROINTESTINAL H EMORRHAGE, UNSPECIFIED SNOMED Code(s): 49066288 (2) Acute blood loss anemia Current Visit: Yes Status: Acute Code(s): D62 - ACUTE POSTHEMORRHAGIC ANEMIA SNOMED Code(s): 472031254 (3) H/O heart artery stent Current Visit: Yes Status: Acute Code(s): Z95.5 - PRESENCE OF CORONARY ANGIOPLASTY IMPLANT AND GRAFT SNOMED Code(s): 181223982 (4) Abdominal pain Current Visit: Yes Status: Acute Code(s): R10.9 - UNSPECIFIED ABDOMINAL PAIN SNOMED Code(s): 45157626 (5) Ileostomy in place Current Visit: Yes Status: Chronic Code(s): Z93.2 - ILEOSTOMY STATUS SNOMED Code(s): 062418422 (6) ETOH abuse Current Visit: Yes Status: Acute Code(s): F10.10 - ALCOHOL ABUSE, UNCOMPLICATED SNOMED Code(s): 73974090 Plan: 1. Discharge per medicine. Protonix 40 mg daily. CBC monitoring in the outpatient setting. Assessment and plan a care discussed with Dr. Raman
[2018-06-04 13:18] VITALS: BP 112/61; PULSE 90; RESP 19; TEMP 98.6
[2018-06-04] MEDS: HYDROcodone/APAP 7.5-325MG 1 EACH TAB PO PRN (14:04)
--- NOTE | 2018-06-04 15:38 | DS ---
DISCHARGE SUMMARY FINAL DIAGNOSES: 1. Nausea, vomiting, abdominal pain with epigastric pain, possible duodenal AVM, status post EGD and argon plasma coagulation therapy. 2. Macrocytic anemia, possibly acute on chronic gastrointestinal bleed. 3. Atrial fibrillation, chronic persistent. 4. Chronic obstructive pulmonary disease. 5. History of nicotine dependence. 6. Hypertension. 7. History of coronary artery disease, stent. 8. History of chronic ileostomy. 9. History of Raynaud's disease. 10.History of left hip arthroplasty. DISCHARGE DISPOSITION: The patient will be discharged in a stable condition with guarded prognosis. Total time taken 35 minutes. HISTORY OF PRESENT ILLNESS: This is a 62-year-old gentleman with a past medical history previously admitted with nausea, vomiting and epigastric pain, patient also had anemia. Patient also had an endoscopy by Dr. Raman that showed a AVM, which was treated with a plasma coagulation therapy. Patient improved significantly. Patient is stable. On exam, vital signs are stable. CARDIOVASCULAR: S1, S2. ABDOMEN: Soft. NERVOUS SYSTEM: No focal deficits. Hemoglobin is 8.6, sodium 130, potassium 3.4. DISCHARGE ADVICE: Diet is cardiac diet. Activity limited until followup. Follow up with Dr. Darci Madrigal in 2-3 days. Follow up with Dr. Raman and Dr. Medina as recommended. MEDICATIONS ARE: 1. Folic acid 1 mg p.o. daily. 2. Symbicort 160/4.5 two puffs b.i.d. 3. Tylenol p.r.n. 4. Habitrol 21 daily. 5. Lipitor 80 mg q.h.s. 6. Neurontin 100 mg p.o. t.i.d. 7. Hydrocodone 7.5 mg 1 tablet q.6 p.r.n. 8. Plavix 75 mg p.o. daily. 9. Protonix 40 mg p.o. b.i.d. 10.Reglan 5 mg p.o. a.c. t.i.d. 11.Sodium bicarb 650 p.o. b.i.d. 12.Ventolin HFA 1-2 puffs q.6 p.r.n. 13.Vitamin B12 one thousand mcg p.o. daily. Followup labs with Dr. Darci Madrigal. Hold aspirin at this time and anticoagulation. To be re-evaluated in the outpatient setting. Total time taken 35 minutes. MMMIAL / IJN: [id number] /
[2018-06-04] MEDS ORDERED: PANTOPRAZOLE 40 MG TABLET PO SCH (21:00)
== END 2018-06-04 16:38 | disposition home or self-care (01) | DRG 378 ==
LOC: EC 14:17 → 4MS4W 16:35
PROVIDERS: ADMIT Hospitalist; ATTEND Hospitalist
PROC: 0W3P8ZZ Control Bleeding in Gastrointestinal Tract, Via Natural or Artificial Opening Endoscopic (ICD-10-PCS; principal; 2018-06-03 13:15)
DX: K55.21 Angiodysplasia of colon with hemorrhage (principal); D62 Acute posthemorrhagic anemia; I48.2 Chronic atrial fibrillation; J44.9 Chronic obstructive pulmonary disease, unspecified; I10 Essential (primary) hypertension; F10.10 Alcohol abuse, uncomplicated; G89.29 Other chronic pain; I73.00 Raynaud's syndrome without gangrene; K44.9 Diaphragmatic hernia without obstruction or gangrene; F17.210 Nicotine dependence, cigarettes, uncomplicated; F32.9 Major depressive disorder, single episode, unspecified; E78.5 Hyperlipidemia, unspecified; I25.10 Atherosclerotic heart disease of native coronary artery without angina pectoris; Z71.6 Tobacco abuse counseling; Z79.51 Long term (current) use of inhaled steroids; Z79.82 Long term (current) use of aspirin; Z79.899 Other long term (current) drug therapy; Z79.02 Long term (current) use of antithrombotics/antiplatelets; Z87.81 Personal history of (healed) traumatic fracture; Z95.5 Presence of coronary angioplasty implant and graft; Z90.49 Acquired absence of other specified parts of digestive tract; Z96.642 Presence of left artificial hip joint; Z86.14 Personal history of Methicillin resistant Staphylococcus aureus infection; Z93.2 Ileostomy status; Z82.49 Family history of ischemic heart disease and other diseases of the circulatory system
CPT/HCPCS: 36415; 43270; 74177; 80048; 80053; 81003; 82150; 82272; 82607; 83605; 83690; 84484; 85025; 85610; 85730; 93005; 94640; 96361; 96374; 96375; 99285

== ENCOUNTER 2018-07-22 13:55 | Inpatient (IN) | payer OTHER ==
[2018-07-22] MEDS ORDERED: MORPHINE SULFATE 4 MG/ML SYRINGE IV STA (14:14)
[2018-07-22] MEDS ORDERED: SODIUM CHLORIDE 0.9% 500 ML 500 ML IV STA (14:14)
[2018-07-22] MEDS ORDERED: PANTOPRAZOLE 40 MG/10 ML VIAL IVP STA (14:15)
--- NOTE | 2018-07-22 14:18 | ED ---
General Adult HPI - General Chief complaint: Abdominal Pain Stated complaint: nausea/ vomiting Time Seen by Provider: 07/22/18 14:07 Source: patient, RN notes reviewed, old records reviewed Mode of arrival: EMS Limitations: no limitations - History of Present Illness Initial comments: 62-year-old male presents for evaluation nausea vomiting and diarrhea. Patient has previous history of diverticulitis status post resection with colostomy. He has history of GI bleed where he underwent endoscopy and cauterization. He states that he's had nausea and some vomiting over the past several weeks. He is also had constant diarrhea. He admits to alcohol consumption. States this does improve his symptoms for a short period. He is currently smoking. Denies chest pain or dyspnea. Denies fever or chills. Denies dysuria. - Related Data Home Medications Medication Instructions Recorded Confirmed Folic Acid 1 mg PO DAILY 01/25/18 07/22/18 Budesonide/Formoterol Fumarate 2 puff INHALATION RT-BID 05/09/18 07/22/18 [Symbicort 160-4.5 Mcg Inhaler] Gabapentin [Neurontin] 100 mg PO BID 07/22/18 07/22/18 Previous Rx's Medication Instructions Recorded Albuterol Inhaler [Ventolin Hfa 1 - 2 puff INHALATION RT-Q6H PRN 01/31/18 Inhaler] #1 inhaler Cyanocobalamin [Vitamin B-12] 1,000 mcg PO DAILY@1200 #30 tab 01/31/18 Metoclopramide [Reglan] 5 mg PO AC-TID #90 tab 01/31/18 Sodium Bicarbonate Tab 650 mg PO BID #60 tab 01/31/18 HYDROcodone/APAP 7.5-325MG [[place] 1 - 2 tab PO Q6H PRN #56 tab 05/14/18 7.5-325] Pantoprazole [Protonix] 40 mg PO BID #60 tablet. 06/04/18 Allergies Allergy/AdvReac Type Severity Reaction Status Date / Time No Known Allergies Allergy Verified 07/22/18 14:38 Review of Systems ROS Statement: Those systems with pertinent positive or pertinent negative responses have been documented in the HPI. ROS Other: All systems not noted in ROS Statement are negative. Past Medical History Past Medical History: Atrial Fibrillation, COPD, Hypertension Additional Past Medical History / Comment(s): Pt states he recently had PCI with stents about 6 weeks ago at [facility], generalized chronic pain, past multiple fractures including cervical fracture, severe diverticulitis with bowel resection/ileostomy and had bladder injury during surgery which required surgery then devloped an abdominal abscess which also required surgery, recent acute renal failure possibly d/t dehydration, 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 History of Any Multi-Drug Resistant Organisms: None Reported Date of last positivie culture/infection: MRSA "in gut" per pt 1 year ago Past Surgical History: Bowel Resection, Heart Catheterization With Stent Additional Past Surgical History / Comment(s): 11/2017 PCI with stent at [facility], colonoscopies, bowel resection with ileostomy, cystoscopy for bladder repair, abdominal abscess with surgical intervention, R inguinal hernia repair with mesh, R knee arthroscopy. Past Anesthesia/Blood Transfusion Reactions: No Reported Reaction Date of Last Stent Placement:: 12/06/17 Past Psychological History: Depression Smoking Status: Current every day smoker Past Alcohol Use History: Daily Past Drug Use History: Prescription Drug Abuse - Past Family History Father Family Medical History: Myocardial Infarction ([place]) Additional Family Medical History / Comment(s): Father had 3 MIs, he had his first one at the age of 50 yrs. He at the age of 85 yrs. Mother Family Medical History: No Reported History Additional Family Medical History / Comment(s): Mother was healthy and lived to be 94 or 95 yrs old. General Exam Limitations: no limitations General appearance: alert, in no apparent distress Head exam: Present: atraumatic, normocephalic Eye exam: Present: normal appearance, PERRL ENT exam: Present: mucous membranes dry Neck exam: Present: normal inspection. Absent: tenderness, meningismus Respiratory exam: Present: wheezes, decreased breath sounds. Absent: respiratory distress Cardiovascular Exam: Present: tachycardia, irregular rhythm GI/Abdominal exam: Present: soft. Absent: distended, tenderness, guarding, rebound Extremities exam: Present: normal inspection, normal capillary refill. Absent: pedal edema, calf tenderness Neurological exam: Present: alert. Absent: motor sensory deficit Skin exam: Present: warm, dry, intact. Absent: cyanosis, diaphoretic Course Vital Signs 07/22/18 07/22/18 07/22/18 13:58 14:36 15:24 Temperature 98.8 F Pulse Rate 118 H 89 82 Respiratory 18 18 98 H Rate Blood Pressure 75/52 91/78 102/70 O2 Sat by Pulse 98 92 L 100 Oximetry EKG Findings - EKG Comments: EKG Findings:: EKG: Atrial fibrillation with RVR, rate of 127, left axis deviation, QRS duration 74, QTC [address] segment elevation. Medical Decision Making - Medical Decision Making 62-year-old male presenting for evaluation of abdominal pain, vomiting and diarrhea. Patient's has normal CBC however his hemoglobin has doubled from previous, suspect hemoconcentration secondary to dehydration. He has a sodium 127, mild lactic acid 2.2, stool was tested for both C. difficile and Heme, both are negative. X-ray consistent with enteritis versus partial obstruction. P atient will be admitted for symptom control, rehydration. Case discussed with admitting physician. - Lab Data Result diagrams: 07/22/18 14:04 07/22/18 14:04 Lab Results 07/22/18 07/22/18 07/22/18 Range/Units 14:04 14:04 14:04 WBC 9.5 (3.8-10.6) k/uL RBC 4.43 (4.30-5.90) m/uL Hgb 15.4 D (13.0-17.5) gm/dL Hct 47.0 (39.0-53.0) % MCV 106.0 H (80.0-100.0) fL MCH 34.8 (25.0-35.0) pg MCHC 32.8 (31.0-37.0) g/dL RDW 16.6 H (11.5-15.5) % Plt Count 311 (150-450) k/uL Neutrophils % 68 % Lymphocytes % 14 % Monocytes % 14 % Eosinophils % 2 % Basophils % 0 % Neutrophils # 6.4 (1.3-7.7) k/uL Lymphocytes # 1.4 (1.0-4.8) k/uL Monocytes # 1.3 H (0-1.0) k/uL Eosinophils # 0.2 (0-0.7) k/uL Basophils # 0.0 (0-0.2) k/uL Anisocytosis Slight Macrocytosis Moderate Sodium 127 L (137-145) mmol/L Potassium 4.6 (3.5-5.1) mmol/L Chloride 96 L (98-107) mmol/L Carbon Dioxide 20 L (22-30) mmol/L Anion Gap 11 mmol/L BUN 16 (9-20) mg/dL Creatinine 0.86 (0.66-1.25) mg/dL Est GFR (CKD-EPI)AfAm >90 (>60 ml/min/1.73 sqM) Est GFR (CKD-EPI)NonAf >90 (>60 ml/min/1.73 sqM) Glucose 82 (74-99) mg/dL Plasma Lactic Acid Mj 2.2 H* (0.7-2.0) mmol/L Calcium 8.6 (8.4-10.2) mg/dL Total Bilirubin 0.9 (0.2-1.3) mg/dL AST 30 (17-59) U/L ALT 14 L (21-72) U/L Alkaline Phosphatase 66 (38-126) U/L Total Protein 6.7 (6.3-8.2) g/dL Albumin 3.8 (3.5-5.0) g/dL Amylase 65 (30-110) U/L Lipase 153 (23-300) U/L Stool Occult Blood (Negative) C. difficile (EIA) Intrp (Negative) 07/22/18 07/22/18 Range/Units 14:28 14:28 WBC (3.8-10.6) k/uL RBC (4.30-5.90) m/uL Hgb (13.0-17.5) gm/dL Hct (39.0-53.0) % MCV (80.0-100.0) fL MCH (25.0-35.0) pg MCHC (31.0-37.0) g/dL RDW (11.5-15.5) % Plt Count (150-450) k/uL Neutrophils % % Lymphocytes % % Monocytes % % Eosinophils % % Basophils % % Neutrophils # (1.3-7.7) k/uL Lymphocytes # (1.0-4.8) k/uL Monocytes # (0-1.0) k/uL Eosinophils # (0-0.7) k/uL Basophils # (0-0.2) k/uL Anisocytosis Macrocytosis Sodium (137-145) mmol/L Potassium (3.5-5.1) mmol/L Chloride (98-107) mmol/L Carbon Dioxide (22-30) mmol/L Anion Gap mmol/L BUN (9-20) mg/dL Creatinine (0.66-1.25) mg/dL Est GFR (CKD-EPI)AfAm (>60 ml/min/1.73 sqM) Est GFR (CKD-EPI)NonAf (>60 ml/min/1.73 sqM) Glucose (74-99) mg/dL Plasma Lactic Acid Mj (0.7-2.0) mmol/L Calcium (8.4-10.2) mg/dL Total Bilirubin (0.2-1.3) mg/dL AST (17-59) U/L ALT (21-72) U/L Alkaline Phosphatase (38-126) U/L Total Protein (6.3-8.2) g/dL Albumin (3.5-5.0) g/dL Amylase (30-110) U/L Lipase (23-300) U/L Stool Occult Blood Negative (Negative) C. difficile (EIA) Intrp Negative (Negative) Disposition Clinical Impression: Enteritis, Hyponatremia, Atrial fibrillation, Dehydration Disposition: ADMITTED IP TO THIS HOSP Condition: Stable Is patient prescribed a controlled substance at d/c from ED?: No Referrals: None,Stated [Primary Care Provider] - 1-2 days Decision to Admit Reason: Admit from EC Decision Date: 07/22/18 Decision Time: 16:09
[2018-07-22 14:39] LABS: ALT 14 U/L (21-72); AST 30 U/L (17-59); Albumin 3.8 g/dL (3.5-5.0); Alkaline Phosphatase 66 U/L (38-126); Amylase 65 U/L (30-110); Anion Gap 11 mmol/L; Blood Urea Nitrogen 16 mg/dL (9-20); Calcium 8.6 mg/dL (8.4-10.2); Carbon Dioxide 20 mmol/L (22-30); Chloride 96 mmol/L (98-107); Glucose 82 mg/dL (74-99); Lipase 153 U/L (23-300); Sodium 127 mmol/L (137-145); Total Bilirubin 0.9 mg/dL (0.2-1.3); Total Protein 6.7 g/dL (6.3-8.2)
[2018-07-22 14:50] LABS: Anisocytosis Slight; Basophils % (A) 0 %; Eosinophils # (A) 0.2 k/uL (0-0.7); Eosinophils % (A) 2 %; Lymphocytes # (A) 1.4 k/uL (1.0-4.8); Lymphocytes % (A) 14 %; MCH 34.8 pg (25.0-35.0); MCHC 32.8 g/dL (31.0-37.0); Macrocytosis Moderate; Mean Platelet Volume 7.2; Monocytes # (A) 1.3 k/uL (0-1.0); Monocytes % (A) 14 %; Neutrophils # (A) 6.4 k/uL (1.3-7.7); Neutrophils % (A) 68 %; Platelet Count 311 k/uL (150-450); RBC 4.43 m/uL (4.30-5.90); RDW 16.6 % (11.5-15.5); WBC 9.5 k/uL (3.8-10.6)
[2018-07-22 14:51] LABS: HGB 15.4 gm/dL (13.0-17.5)
[2018-07-22 14:59] LABS: Potassium 4.6 mmol/L (3.5-5.1)
--- NOTE | 2018-07-22 15:03 | XR ---
EXAMINATION TYPE: XR KUB DATE OF EXAM: 07/22/2018 COMPARISON: NONE HISTORY: 06/01/2018 TECHNIQUE: One view abdominal series FINDINGS: The osseous structures are intact. The bowel gas pattern is nonspecific. Lung bases are clear. Yeimy elate for COPD. Curvature the spine with hypertrophic changes. Vascular calcifications noted. Ostomy within the left lower quadrant noted. Possibility of bowel gas noted. Severe arthropathy right hip an d postsurgical change left hip. IMPRESSION: 1. Nonspecific abdomen. There is a paucity of bowel gas with an ostomy seen in the left lower quadra nt. This could be on the basis of fluid-filled bowel loops, enteritis or partial obstruction.
[2018-07-22] MEDS ORDERED: SODIUM CHLORIDE 0.9% 1,000 ML IV ONE (15:59)
[2018-07-22] MEDS ORDERED: NALOXONE 0.4 MG/ML 1 ML VIAL IV PRN (16:05)
[2018-07-22] MEDS ORDERED: ONDANSETRON 4 MG/2 ML VIAL IVP PRN (16:05)
[2018-07-22] MEDS ORDERED: MORPHINE SULFATE 4 MG/ML SYRINGE IVP PRN (16:07)
[2018-07-22 16:14] LABS: Appearance,Urine Clear (Clear); Bilirubin,Urine Negative (Negative); Blood,Urine Negative (Negative); Color,Urine Light Yellow; Glucose,Urine (UA) Negative (Negative); Ketones,Urine Negative (Negative); Leukocyte Esterase,Urine Trace (Negative); Mucus,Urine Rare /hpf; Nitrite,Urine Negative (Negative); PH, Urine 5.5 (5.0-8.0); Protein,Urine Negative (Negative); RBC,Urine 1 /hpf (0-5); Specific Gravity,Urine 1.006 (1.001-1.035); Squamous Epithelial Cell,Urine <1 /hpf (0-4); Urobilinogen,Urine <2.0 mg/dL (<2.0); WBC,Urine 3 /hpf (0-5)
[2018-07-22] MEDS: SODIUM CHLORIDE 0.9% 1,000 ML IV SCH (16:36)
--- NOTE | 2018-07-22 17:02 | P.HPIM ---
History of Present Illness H&P Date: 07/22/18 Chief Complaint: Abdominal pain This is a 62-year-old white male who is being admitted for abdominal pain nausea and vomiting. He states that his abdominal pain has been going on for the past 2-3 weeks. He describes it as nagging, fluctuates in severity, at most it was 10 over 10 but currently it has improved. His pain has been fluctuating. He also reports episodes of nausea and vomiting. He denies diarrhea but reports this is stool in the ileostomy bag. He denies subjective fever or chills, no hematuria dysuria hematemesis or hematochezia. He denies chest pain but reports chronic shortness of breath that is not much different than baseline. He states that his appetite has been decreased, he denies constipation. He states that he had ileostomy secondary to recurrent diverticulitis 4 years ago. Review of Systems 10 systems reviewed pertinent positive and negative findings as in HPI, positive for abdominal pain nausea and vomiting, no chest pain. Past Medical History Past Medical History: Atrial Fibrillation, COPD, Hypertension Additional Past Medical History / Comment(s): Pt states he recently had PCI with stents about 6 weeks ago at [facility], generalized chronic pain, past multiple fractures including cervical fracture, severe diverticulitis with bowel resection/ileostomy and had bladder injury during surgery which required surgery then devloped an abdominal abscess which also required surgery, recent acute renal failure possibly d/t dehydration, bilateral Raynauld's syndrome-states fingers are always painful and numb/discoloration. 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 Past Anesthesia/Blood Transfusion Reactions: No Reported Reaction Date of Last Stent Placement:: 12/06/17 Past Psychological History: Depression Smoking Status: Current every day smoker Past Alcohol Use History: Daily Past Drug Use History: Prescription Drug Abuse - Past Family History Father Family Medical History: Myocardial Infarction ([place]) Additional Family Medical History / Comment(s): Father had 3 MIs, he had his first one at the age of 50 yrs. He at the age of 85 yrs. Mother Family Medical History: No Reported History Additional Family Medical History / Comment(s): Mother was healthy and lived to be 94 or 95 yrs old. Medications and Allergies Home Medications Medication Instructions Recorded Confirmed Type Folic Acid 1 mg PO DAILY 01/25/18 07/22/18 History Albuterol Inhaler [Ventolin Hfa 1 - 2 puff INHALATION RT-Q6H PRN 01/31/18 07/22/18 Rx Inhaler] #1 inhaler Cyanocobalamin [Vitamin B-12] 1,000 mcg PO DAILY@1200 #30 tab 01/31/18 07/22/18 Rx Metoclopramide [Reglan] 5 mg PO AC-TID #90 tab 01/31/18 07/22/18 Rx Sodium Bicarbonate Tab 650 mg PO BID #60 tab 01/31/18 07/22/18 Rx Budesonide/Formoterol Fumarate 2 puff INHALATION RT-BID 05/09/18 07/22/18 History [Symbicort 160-4.5 Mcg Inhaler] HYDROcodone/APAP 7.5-325MG [[place] 1 - 2 tab PO Q6H PRN #56 tab 05/14/18 07/22/18 Rx 7.5-325] Pantoprazole [Protonix] 40 mg PO BID #60 tablet. 06/04/18 07/22/18 Rx Gabapentin [Neurontin] 100 mg PO BID 07/22/18 07/22/18 History Allergies Allergy/AdvReac Type Severity Reaction Status Date / Time No Known Allergies Allergy Verified 07/22/18 14:38 Physical Exam Vitals: Vital Signs Temp Pulse Resp BP Pulse Ox 07/22/18 16:00 98.3 F 82 18 105/70 100 07/22/18 15:24 82 98 H 102/70 100 07/22/18 14:36 89 18 91/78 92 L 07/22/18 13:58 98.8 F 118 H 18 75/52 98 Intake and Output 07/22/18 07/22/18 07/22/18 06:59 14:59 22:59 Other: Weight 54.431 kg Constitutional: No acute distress, conversant, pleasant Eyes: Anicteric sclerae, moist conjunctiva, no lid-lag, PERRLA ENMT: NC/AT Neck:Supple, no masses, or JVD, No carotid bruits; No thyromegaly Lungs: Clear to auscultation, Clear to percussion, Normal respiratory effort, no accessory muscle use Cardiovascular: Heart regular in rate and rhythm, No murmurs, gallops, or rubs no peripheral edema Abdominal: Soft Nontender, nom distended, no guarding, no rebound or rigidity, ileostomy bag in place Skin: Normal temperature, tone, texture, turgor Extremities:No digital cyanosis No clubbing Psychiatric: Alert and oriented to person, place and time Neuro: Muscles Strength 5/5 in all 4 extremities, Cranial nerves II-XII grossly intact. Results CBC & Chem 7: 07/22/18 14:04 07/22/18 14:04 Labs: Abnormal Lab Results - Last 24 Hours (Table) 07/22/18 07/22/18 07/22/18 Range/Units 14:04 14:04 14:04 MCV 106.0 H (80.0-100.0) fL RDW 16.6 H (11.5-15.5) % Monocytes # 1.3 H (0-1.0) k/uL Sodium 127 L (137-145) mmol/L Chloride 96 L (98-107) mmol/L Carbon Dioxide 20 L (22-30) mmol/L Plasma Lactic Acid Mj 2.2 H* (0.7-2.0) mmol/L ALT 14 L (21-72) U/L Ur Leukocyte Esterase (Negative) Urine Mucus (None) /hpf 07/22/18 Range/Units 15:50 MCV (80.0-100.0) fL RDW (11.5-15.5) % Monocytes # (0-1.0) k/uL Sodium (137-145) mmol/L Chloride (98-107) mmol/L Carbon Dioxide (22-30) mmol/L Plasma Lactic Acid Mj (0.7-2.0) mmol/L ALT (21-72) U/L Ur Leukocyte Esterase Trace H (Negative) Urine Mucus Rare H (None) /hpf Thrombosis Risk Factor Assmnt - DVT/VTE Prophylaxis DVT/VTE Prophylaxis: Mechanical Prophylaxis ordered Assessment and Plan Plan: 1. Enteritis with history of AVM: Supportive care, IV fluids, antiemetics, pain control, changes PPI to IV Protonix. GI consultation. 2. Possible partial small bowel obstruction: Conservative treatment, clear liquids, obtain a CT abdomen with contrast for further evaluation, if needed we will consult with surgery. 3. Paroxysmal atrial fibrillation with tachycardia: Not on anticoagulation, not on the left control medications, start metoprolol 12.5 mg twice a day and monitor. 4. COPD with chronic hypoxic respiratory failure requiring home oxygen: Oxygen and bronchodilators as indicated 5. Chronic metabolic acidosis: On oral bicarbonate, serum bicarbonate 20, we will monitor, consider bicarbonate-containing solution if not better. 6. Hypovolemic hyponatremia: Serum sodium 127, volume resuscitate with normal saline at 100 mL per hour and monitor his 7. Elevated lactic acid: Likely associated with enteritis and small bowel obstruction, monitor. 8. Coronary artery disease: No evidence of acute coronary syndrome 9. Tobacco use without evidence of withdrawal, nicotine patch as indicated 10. History of Raynaud's disease: Conservative treatment 11. Essential hypertension: Not on medications, monitor blood pressure DVT prophylaxis: SCDs Disposition: Home in 2-3 days based on clinical progression
[2018-07-22] MEDS ORDERED: SODIUM CHLORIDE 0.9% 1,000 ML IV SCH (17:15)
--- NOTE | 2018-07-22 18:36 | CT ---
EXAMINATION TYPE: CT abdomen pelvis w con DATE OF EXAM: 07/22/2018 COMPARISON: 06/01/2018 HISTORY: Abdominal pain. CT DLP: 588.7 mGycm Automated exposure control for dose reduction was used. TECHNIQUE: Helical acquisition of images was performed from the lung bases through the pelvis. CONTRAST: Performed without Oral Contrast and with IV Contrast, patient injected with 100 mL of Isovue 300. FINDINGS: Lung bases are clear. There is no pleural effusion. Heart size is normal. Liver shows no focal defect. Bile ducts are not dilated. Gallbladder appears normal. Spleen appears n ormal. There is some hypertrophic changes in the stomach. There is no evidence of pancreatic mass. There is no adrenal mass. Kidneys show satisfactory contrast opacification. There is no hydronephrosi s. Abdominal aorta is atheromatous. There is no retroperitoneal adenopathy. Abdominal aorta measures up to 2.5 cm. There is high attenuation material in the right colon. This apparently relates to ileostomy and nonfu nctioning large bowel. This appears unchanged.. This patient did not have any oral contrast. The blad jenn distends smoothly. There is a left hip prosthesis. There is no ascites. There is no evidence of m esenteric edema. There is no sign of a bowel obstruction. There is a ileostomy noted in the left lowe r quadrant. The lumbar spine is intact. I see no bony destructive process. There is a left hip prosthesis. IMPRESSION: ILEOSTOMY NOTED. NO EVIDENCE OF A BOWEL OBSTRUCTION. NO FREE AIR OR FLUID. ATHEROMATOUS AORTA. NO ADV ERSE CHANGE COMPARED TO OLD EXAM.
[2018-07-22] MEDS ORDERED: IPRATROPIUM-ALBUTEROL 3 ML NEB INHALATION SCH (20:00)
[2018-07-22] MEDS ORDERED: IPRATROPIUM-ALBUTEROL 3 ML NEB INHALATION PRN (20:22)
[2018-07-22] MEDS: SODIUM BICARBONATE TAB 650 MG TAB PO SCH (21:11)
[2018-07-22] MEDS: GABAPENTIN 100 MG CAP PO SCH (21:11)
[2018-07-23] MEDS ORDERED: IPRATROPIUM-ALBUTEROL 3 ML NEB INHALATION SCH
[2018-07-23] MEDS: SODIUM CHLORIDE 0.9% 1,000 ML IV SCH ×3 (01:54→18:40)
--- NOTE | 2018-07-23 09:29 | P.CONS ---
History of Present Illness - Reason for Consult Consult date: 07/23/18 Abdominal pain Requesting physician: Sanam Ravi - Chief Complaint Abdominal pain - History of Present Illness 62-year-old gentleman with a history of EtOH abuse drinks 2 vodka drinks daily, atrial fibrillation, COPD, hypertension, CAD PCI stent April 2018, chronic pain, consultations from colonoscopy about 4 years ago resulting in multiple bowel surgeries resulting in ileostomy placement presents with chronic sharp sometimes crampy abdominal pain nonbloody emesis intermittently over the past 2 weeks. Patient noticed increased watery output from his ostomy changing at 3-4 times a day. Patient lives with an older roommate. He tried Pepto-Bismol [place] without improvement. Denies hematemesis hematochezia or melena. He was seen by our service in May of this year for suspected upper GI bleed melena underwent EGD evaluation with findings of a nonbleeding duodenal AVM treated with APC. CT abdomen reported no evidence of bowel obstruction or obvious acute pathology. Abdominal pain is improving. Tolerating clear liquids. Afebrile. Ostomy functioning. Hemoglobin 15.4. White count 9.5. MCV 106. Platelet 311. Sodium 127. Potassium 4.6. BUN 16. Creatinine 0.8. Lactic acid 2.2 with hydration 1.0. LFTs amylase lipase within normal limits. Review of Systems Constitutional: Denies fever, chills, sweats, weight gain, or loss. HEENT: Negative for migraines, blurred vision or loss, earaches, drainage, tinnitus, oral mucosal lesions, dysphagia, or odynophagia. Cardiac: Negative for chest pain, arrhythmias, or palpitation. Respiratory: Negative for shortness of breath, hemoptysis, cough, or sputum production. Gastrointestinal: See HPI for pertinent findings. Genitourinary: Negative for hematuria, urgency, frequency, polyuria, dysuria, or penile discharge. Musculoskeletal: Negative for muscle aches, swelling, arthritis, and arthralgias. Neurologic: Negative for stroke or TIA. Endocrine: Negative for thyroid problems. Skin: Negative for rash or itching. Psychiatric: Negative history for depression and anxiety Past Medical History Past Medical History: Atrial Fibrillation, COPD, Hypertension Additional Past Medical History / Comment(s): Pt states he recently had PCI with stents about 6 weeks ago at [facility], generalized chronic pain, past multiple fractures including cervical fracture, severe diverticulitis with bowel resection/ileostomy and had bladder injury during surgery which required surgery then devloped an abdominal abscess which also required surgery, recent acute renal failure possibly d/t dehydration, bilateral Raynauld's syndrome-states fingers are always painful and numb/discoloration. 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 Past Anesthesia/Blood Transfusion Reactions: No Reported Reaction Date of Last Stent Placement:: 12/06/17 Past Psychological History: Depression Smoking Status: Current every day smoker Past Alcohol Use History: Daily Past Drug Use History: Prescription Drug Abuse - Past Family History Father Family Medical History: Myocardial Infarction ([place]) Additional Family Medical History / Comment(s): Father had 3 MIs, he had his first one at the age of 50 yrs. He at the age of 85 yrs. Mother Family Medical History: No Reported History Additional Family Medical History / Comment(s): Mother was healthy and lived to be 94 or 95 yrs old. Medications and Allergies Home Medications Medication Instructions Recorded Confirmed Type Folic Acid 1 mg PO DAILY 01/25/18 07/22/18 History Albuterol Inhaler [Ventolin Hfa 1 - 2 puff INHALATION RT-Q6H PRN 01/31/18 07/22/18 Rx Inhaler] #1 inhaler Cyanocobalamin [Vitamin B-12] 1,000 mcg PO DAILY@1200 #30 tab 01/31/18 07/22/18 Rx Metoclopramide [Reglan] 5 mg PO AC-TID #90 tab 01/31/18 07/22/18 Rx Sodium Bicarbonate Tab 650 mg PO BID #60 tab 01/31/18 07/22/18 Rx Budesonide/Formoterol Fumarate 2 puff INHALATION RT-BID 05/09/18 07/22/18 History [Symbicort 160-4.5 Mcg Inhaler] HYDROcodone/APAP 7.5-325MG [[place]yl 1 - 2 tab PO Q6H PRN #56 tab 05/14/18 07/22/18 Rx 7.5-325] Pantoprazole [Protonix] 40 mg PO BID #60 tablet. 06/04/18 07/22/18 Rx Gabapentin [Neurontin] 100 mg PO BID 07/22/18 07/22/18 History Allergies Allergy/AdvReac Type Severity Reaction Status Date / Time No Known Allergies Allergy Verified 07/22/18 14:38 Physical Exam Vitals: Vital Signs Temp Pulse Pulse Resp BP BP Pulse Ox 07/23/18 07:00 97.5 F L 63 16 108/65 92 L 07/23/18 01:47 98.1 F 72 17 97/60 95 07/22/18 21:56 79 97/60 07/22/18 21:01 98.5 F 73 16 83/55 95 07/22/18 16:00 98.3 F 82 18 105/70 100 07/22/18 15:24 82 98 H 102/70 100 07/22/18 14:36 89 18 91/78 92 L 07/22/18 13:58 98.8 F 118 H 18 75/52 98 Intake and Output 07/22/18 07/23/18 07/23/18 22:59 06:59 14:59 Intake Total 300 800 Output Total 475 Balance 300 325 Intake: Intake, IV Titration 300 800 Amount Sodium Chloride 0.9% 1, 300 800 000 ml @ 100 mls/hr IV . Q10H [facility] Rx#:[id number] Output: Urine 475 Other: Voiding Method Toilet # Voids 2 1 General appearance: The patient is alert, oriented, in no acute distress. HET: Head is normocephalic and atraumatic. Pupils are equal and reactive. Oropharynx is clear without lesions. Neck: Supple without lymphadenopathy. Trachea midline. Heart: S1 S2. Regular rate and rhythm. Lungs: No crackles or wheezes are heard. Abdomen: Soft, very mild tenderness across the midabdomen ostomy is functioning no obvious hernias, nondistended with bowel sounds. No peritoneal signs. No palpable organomegaly or masses. Extremities: Normal skin color and turgor. No cyanosis, rash, ulceration, clubbing, or edema. Radial and pedal pulses are 2/4 bilaterally. Neurological: No focal deficits. Strength and sensation are grossly intact. Results CBC & Chem 7: 07/22/18 14:04 07/22/18 14:04 Labs: Abnormal Lab Results - Last 24 Hours (Table) 07/22/18 07/22/18 07/22/18 Range/Units 14:04 14:04 14:04 MCV 106.0 H (80.0-100.0) fL RDW 16.6 H (11.5-15.5) % Monocytes # 1.3 H (0-1.0) k/uL Sodium 127 L (137-145) mmol/L Chloride 96 L (98-107) mmol/L Carbon Dioxide 20 L (22-30) mmol/L Plasma Lactic Acid Mj 2.2 H* (0.7-2.0) mmol/L ALT 14 L (21-72) U/L Ur Leukocyte Esterase (Negative) Urine Mucus (None) /hpf 07/22/18 Range/Units 15:50 MCV (80.0-100.0) fL RDW (11.5-15.5) % Monocytes # (0-1.0) k/uL Sodium (137-145) mmol/L Chloride (98-107) mmol/L Carbon Dioxide (22-30) mmol/L Plasma Lactic Acid Mj (0.7-2.0) mmol/L ALT (21-72) U/L Ur Leukocyte Esterase Trace H (Negative) Urine Mucus Rare H (None) /hpf CT scan - abdomen: report reviewed (Dr. Raman) Assessment and Plan (1) Abdominal pain Narrative/Plan: 62-year-old gentleman with a history of EtOH abuse daily alcohol consumption ileostomy placement secondary to colonoscopy complications several years ago presents with acute abdominal pain nausea vomiting increased ileostomy output intermittently over last [address] reported no acute abdominal findings no evidence of bowel obstruction. Etiology of abdominal pain is unclear possible acute gastroenteritis possible irritable bowel syndrome. Current Visit: No Status: Acute Code(s): R10.9 - UNSPECIFIED ABDOMINAL PAIN SNOMED Code(s): 82083547 (2) Ileostomy in place Current Visit: Yes Status: Acute Code(s): Z93.2 - ILEOSTOMY STATUS SNOMED Code(s): 106766951 (3) Hyponatremia Current Visit: Yes Status: Acute Code(s): E87.1 - HYPO-OSMOLALITY AND HYPONATREMIA SNOMED Code(s): 43790715 (4) Coronary artery disease Current Visit: No Status: Acute Code(s): I25.10 - ATHSCL HEART DISEASE OF [place] CORONARY ARTERY W/O ANG PCTRS SNOMED Code(s): 17535198 (5) ETOH abuse Current Visit: No Status: Acute Code(s): F10.10 - ALCOHOL ABUSE, UNCOMPLICATED SNOMED Code(s): 93676512 Plan: 1. Patient is requesting diet advancement; will advance. Abdominal pain is improving. Continue with Protonix 40 mg daily. Alcohol abstinence was advised. We'll start Bentyl 10 mg 3 times a day to see if this helps with his abdominal discomfort. Inpatient endoscopic exams not planned at this time. Daily monitoring of CBC and electrolytes. Advised overnight observation if patient feels better tomorrow he can be discharged and follow up in the office in 2-3 weeks. Thank you for this kind referral and the opportunity to participate in the care of your patient. This consultation was discussed with Dr. Raman. The impression and plan of care have been directed as dictated.
[2018-07-23 10:02] LABS: ALT 14 U/L (21-72); AST 15 U/L (17-59); Albumin 2.8 g/dL (3.5-5.0); Alkaline Phosphatase 57 U/L (38-126); Anion Gap 5 mmol/L; Blood Urea Nitrogen 11 mg/dL (9-20); Calcium 8.8 mg/dL (8.4-10.2); Carbon Dioxide 22 mmol/L (22-30); Chloride 102 mmol/L (98-107); Glucose 76 mg/dL (74-99); Potassium 3.8 mmol/L (3.5-5.1); Sodium 129 mmol/L (137-145); Total Bilirubin 0.4 mg/dL (0.2-1.3); Total Protein 5.2 g/dL (6.3-8.2)
[2018-07-23 10:03] LABS: Anisocytosis Slight; Basophils % (A) 1 %; Eosinophils # (A) 0.1 k/uL (0-0.7); Eosinophils % (A) 2 %; HCT 38.7 % (39.0-53.0); HGB 12.4 gm/dL (13.0-17.5); Lymphocytes # (A) 1.1 k/uL (1.0-4.8); Lymphocytes % (A) 18 %; MCH 34.6 pg (25.0-35.0); MCHC 32.1 g/dL (31.0-37.0); MCV 107.9 fL (80.0-100.0); Macrocytosis Marked; Mean Platelet Volume 7.1; Monocytes # (A) 0.3 k/uL (0-1.0); Monocytes % (A) 5 %; Neutrophils # (A) 4.5 k/uL (1.3-7.7); Neutrophils % (A) 73 %; Platelet Count 215 k/uL (150-450); RBC 3.59 m/uL (4.30-5.90); RDW 16.6 % (11.5-15.5); WBC 6.1 k/uL (3.8-10.6)
[2018-07-23] MEDS: PANTOPRAZOLE 40 MG/10 ML VIAL IV SCH (10:22)
[2018-07-23] MEDS: DICYCLOMINE 10 MG CAP PO SCH ×3 (10:22→22:42)
[2018-07-23] MEDS: GABAPENTIN 100 MG CAP PO SCH ×3 (10:22→21:15)
[2018-07-23] MEDS: FOLIC ACID 1 MG TAB PO SCH (10:22)
[2018-07-23] MEDS: SODIUM BICARBONATE TAB 650 MG TAB PO SCH ×3 (10:22→21:15)
--- NOTE | 2018-07-23 11:13 | P.PN ---
Subjective Progress Note Date: 07/23/18 Principal diagnosis: Abdominal pain HPI: This is a 62-year-old white male who is being admitted for abdominal pain nausea and vomiting. He states that his abdominal pain has been going on for the past 2-3 weeks. He describes it as nagging, fluctuates in severity, at most it was 10 over 10 but currently it has improved. His pain has been fluctuating. He also reports episodes of nausea and vomiting. He denies diarrhea but reports this is stool in the ileostomy bag. He denies subjective fever or chills, no hematuria dysuria hematemesis or hematochezia. He denies chest pain but reports chronic shortness of breath that is not much different than baseline. He states that his appetite has been decreased, he denies constipation. He states that he had ileostomy secondary to recurrent diverticulitis 4 years ago. 07/23/2018: Patient feels much better, abdominal pain is significantly better, nausea no vomiting or diarrhea. He remains afebrile, diet has been advanced and tolerated. Objective - Vital Signs Vital signs: Vital Signs Temp 97.5 F L 07/23/18 07:00 Pulse 63 07/23/18 07:00 Resp 16 07/23/18 07:00 BP 108/65 07/23/18 07:00 Pulse Ox 92 L 07/23/18 07:00 Intake & Output 07/22/18 07/23/18 07/23/18 18:59 06:59 18:59 Intake Total 1100 Output Total 475 Balance 625 Weight 54.431 kg Intake: Intake, IV Titration 1100 Amount Sodium Chloride 0.9% 1, 1100 000 ml @ 100 mls/hr IV . Q10H [facility] Rx#:[id number] Output: Urine 475 Other: Voiding Method Toilet Toilet Urinal # Voids 1 - Exam Constitutional: No acute distress, conversant, pleasant Eyes: Anicteric sclerae, PERRLA ENMT: NC/AT Neck:Supple, no masses, or JVD Lungs: Clear to auscultation, Clear to percussion, no accessory muscle use , no wheezing, no crackles Cardiovascular: Heart regular in rate and rhythm, No murmurs, gallops, or rubs no peripheral edema Abdominal: Soft Nontender, nom distended, no guarding, no rebound or rigidity, ileostomy bag in place Skin: Normal temperature, tone, texture, turgor Extremities:No digital cyanosis No clubbing Psychiatric: Alert and oriented to person, place and time Neuro: Muscles Strength 5/5 in all 4 extremities, Cranial nerves II-XII grossly intact. - Labs CBC & Chem 7: 07/23/18 08:57 07/23/18 08:57 Labs: Abnormal Lab Results - Last 24 Hours (Table) 07/22/18 07/22/18 07/22/18 Range/Units 14:04 14:04 14:04 RBC (4.30-5.90) m/uL Hgb (13.0-17.5) gm/dL Hct (39.0-53.0) % MCV 106.0 H (80.0-100.0) fL RDW 16.6 H (11.5-15.5) % Monocytes # 1.3 H (0-1.0) k/uL Macrocytosis Sodium 127 L (137-145) mmol/L Chloride 96 L (98-107) mmol/L Carbon Dioxide 20 L (22-30) mmol/L Plasma Lactic Acid Mj 2.2 H* (0.7-2.0) mmol/L AST (17-59) U/L ALT 14 L (21-72) U/L Total Protein (6.3-8.2) g/dL Albumin (3.5-5.0) g/dL Ur Leukocyte Esterase (Negative) Urine Mucus (None) /hpf 07/22/18 07/23/18 07/23/18 Range/Units 15:50 08:57 08:57 RBC 3.59 L (4.30-5.90) m/uL Hgb 12.4 L D (13.0-17.5) gm/dL Hct 38.7 L (39.0-53.0) % MCV 107.9 H (80.0-100.0) fL RDW 16.6 H (11.5-15.5) % Monocytes # (0-1.0) k/uL Macrocytosis Marked A Sodium 129 L (137-145) mmol/L Chloride (98-107) mmol/L Carbon Dioxide (22-30) mmol/L Plasma Lactic Acid Mj (0.7-2.0) mmol/L AST 15 L (17-59) U/L ALT 14 L (21-72) U/L Total Protein 5.2 L (6.3-8.2) g/dL Albumin 2.8 L (3.5-5.0) g/dL Ur Leukocyte Esterase Trace H (Negative) Urine Mucus Rare H (None) /hpf Assessment and Plan Plan: 1. Enteritis vs IBS with history of AVM: better, IV fluids, antiemetics, pain control, changes PPI to IV Protonix. GI consultation preceded, added Bentyl 2. Possible partial small bowel obstruction: Ruled out on an abdominal CT with contrast 3. Paroxysmal atrial fibrillation with tachycardia: Not on anticoagulation, not on the left control medications, heart rate stable, monitor. 4. COPD with chronic hypoxic respiratory failure requiring home oxygen: Oxygen and bronchodilators as indicated 5. Chronic metabolic acidosis: On oral bicarbonate, serum bicarbonate increased from 20 to 22 6. Hypovolemic hyponatremia, and alcohol associated: Serum sodium 127, , improved to 129 continue with normal saline at 100 mL per hour 7. Elevated lactic acid: Likely associated with enteritis , monitor. 8. Coronary artery disease: No evidence of acute coronary syndrome 9. Tobacco use without evidence of withdrawal, nicotine patch as indicated 10. History of Raynaud's disease: Conservative treatment 11. Essential hypertension: Not on medications, monitor blood pressure 12. Without evidence of withdrawal: Monitor DVT prophylaxis: SCDs Disposition: Home tomorrow Time with Patient: Less than 30
[2018-07-23 12:51] VITALS: BMI 15.4
[2018-07-24 08:04] VITALS: RESP 16
[2018-07-24] MEDS: PANTOPRAZOLE 40 MG/10 ML VIAL IV SCH (08:07)
[2018-07-24] MEDS: SODIUM BICARBONATE TAB 650 MG TAB PO SCH (08:08)
[2018-07-24] MEDS: GABAPENTIN 100 MG CAP PO SCH (08:08)
[2018-07-24] MEDS: DICYCLOMINE 10 MG CAP PO SCH (08:08)
[2018-07-24] MEDS: FOLIC ACID 1 MG TAB PO SCH (08:08)
[2018-07-24 09:06] LABS: Anisocytosis Slight; Basophils % (A) 0 %; Eosinophils # (A) 0.2 k/uL (0-0.7); Eosinophils % (A) 2 %; HCT 37.5 % (39.0-53.0); HGB 11.9 gm/dL (13.0-17.5); Lymphocytes % (A) 13 %; MCH 34.9 pg (25.0-35.0); MCHC 31.7 g/dL (31.0-37.0); MCV 109.9 fL (80.0-100.0); Macrocytosis Marked; Mean Platelet Volume 6.9; Monocytes # (A) 1.2 k/uL (0-1.0); Monocytes % (A) 15 %; Neutrophils # (A) 5.7 k/uL (1.3-7.7); Neutrophils % (A) 69 %; Platelet Count 213 k/uL (150-450); RBC 3.41 m/uL (4.30-5.90); RDW 16.6 % (11.5-15.5); WBC 8.2 k/uL (3.8-10.6)
[2018-07-24 09:15] LABS: ALT 7 U/L (21-72); AST 13 U/L (17-59); Albumin 2.6 g/dL (3.5-5.0); Alkaline Phosphatase 62 U/L (38-126); Anion Gap 4 mmol/L; Blood Urea Nitrogen 13 mg/dL (9-20); Calcium 8.7 mg/dL (8.4-10.2); Carbon Dioxide 23 mmol/L (22-30); Chloride 106 mmol/L (98-107); Glucose 88 mg/dL (74-99); Potassium 4.1 mmol/L (3.5-5.1); Sodium 133 mmol/L (137-145); Total Bilirubin 0.2 mg/dL (0.2-1.3); Total Protein 4.8 g/dL (6.3-8.2)
--- NOTE | 2018-07-24 12:11 | P.DS ---
Providers Date of admission: 07/22/18 16:05 Expected date of discharge: 07/24/18 Attending physician: Sanam Ravi MD Consults: 07/22/18 16:06 Consult Physician Routine Consulting Provider: Russ Grewal Consult Reason/Comments: Ab Pain, nausea vomiting Do you want consulting provider notified?: Yes Primary care physician: Stated None Hospital Course: Discharge Diagnosis: Probable irritable bowel syndrome Hyponatremia Alcohol abuse with impending DTs Paroxysmal atrial fibrillation, not on chronic anticoagulation COPD without exacerbation Chronic hypoxic respiratory failure Chronic metabolic acidosis-patient serum bicarbonate elevated to 23, will cut down to once daily for at home Hypovolemic hyponatremia Coronary artery disease Tobacco abuse Raynaud's disease Essential hypertension Severe protein calorie malnutrition Hospital Course: Patient is a 62-year-old male with a past medical history of diverticulitis, coronary artery disease with PCI recently, A. fib, COPD, chronic hypoxic respiratory failure, and multiple other chronic medical conditions who presented to the ER with complaints of abdominal pain for the last 2-3 weeks. In the ER he underwent an extensive evaluation. On arrival he was found be tachycardic with a heart rate of 118 and a blood pressure of 75/52. This r esponded well to IV fluids. Initial laboratory analysis showed a metabolic acidosis with hypovolemic hyponatremia. He underwent a KUB which was nonspecific. He is admitted for further monitoring. He underwent a CT abdomen and pelvis which showed no acute process and was essentially unchanged from prior. This maintained on IV fluids. GI was consulted. It was felt that he likely had gastroenteritis versus irritable bowel syndrome. He was started on Bentyl and his diet was advanced. His abdominal pain resolved and he is tolerating a diet. Determined that he was stable for discharge home. He will be continued on Bentyl, Reglan will be discontinued as he was having increased ostomy output. He also was noted to have an normalized serum bicarb and discussed his sodium bicarb was decreased to once daily. He was encouraged to have adequate oral intake. He will follow-up with his PCP Dr. Darci Woods in 1-2 days and follow-up with Dr. Raman on August 23. Patient seen and examined at bedside. eating and drinking well, abd pain improved, no nausea, ostomy output normalized. Vital signs reviewed and stable. General: non toxic, no distress, appears older than stated age, cachetic with temporal wasting Derm: warm, dry Head: atraumatic, normocephalic, symmetric Eyes: EOMI, no lid lag, anicteric sclera Mouth: no lip lesion, mucus membranes moist Cardiovascular: S1S2 reg, no murmur, positive posterior tibial pulse bilateral, Lungs: CTA bilateral, no rhonchi, no rales , no accessory muscle use Abdominal: soft, nontender to palpation, no guarding, no appreciable organomeg shalom Ext: + gross muscle atrophy, no edema, no contractures Neuro: CN II-XI grossly intact, no focal neuro deficits Psych: Alert, oriented, appropriate affect A total of 35 minutes of time were spent preparing this complex discharge summary . Pertinent Studies: CT abdomen and pelvis-no acute process KUB-no acute process Patient Condition at Discharge: Stable Plan - Discharge Summary Discharge Rx Participant: Yes New Discharge Prescriptions: New Dicyclomine [Bentyl] 10 mg PO TID #90 cap Sodium Bicarbonate Tab 650 mg PO DAILY #30 tab Continue Folic Acid 1 mg PO DAILY Cyanocobalamin [Vitamin B-12] 1,000 mcg PO DAILY@1200 #30 tab Albuterol Inhaler [Ventolin Hfa Inhaler] 1 - 2 puff INHALATION RT-Q6H PRN #1 inhaler PRN Reason: Shortness of breath Budesonide/Formoterol Fumarate [Symbicort 160-4.5 Mcg Inhaler] 2 puff INHALATION RT-BID HYDROcodone/APAP 7.5-325MG [[place] 7.5-325] 1 - 2 tab PO Q6H PRN #56 tab PRN Reason: Pain Pantoprazole [Protonix] 40 mg PO BID #60 tablet. Gabapentin [Neurontin] 100 mg PO BID Discontinued Metoclopramide [Reglan] 5 mg PO AC-TID #90 tab Sodium Bicarbonate Tab 650 mg PO BID #60 tab Discharge Medication List Folic Acid 1 mg PO DAILY 01/25/18 [History] Albuterol Inhaler [Ventolin Hfa Inhaler] 1 - 2 puff INHALATION RT-Q6H PRN #1 inhaler 01/31/18 [Rx] Cyanocobalamin [Vitamin B-12] 1,000 mcg PO DAILY@1200 #30 tab 01/31/18 [Rx] Budesonide/Formoterol Fumarate [Symbicort 160-4.5 Mcg Inhaler] 2 puff INHALATION RT-BID 05/09/18 [History] HYDROcodone/APAP 7.5-325MG [[place] 7.5-325] 1 - 2 tab PO Q6H PRN #56 tab 05/14/18 [Rx] Pantoprazole [Protonix] 40 mg PO BID #60 tablet. 06/04/18 [Rx] Gabapentin [Neurontin] 100 mg PO BID 07/22/18 [History] Dicyclomine [Bentyl] 10 mg PO TID #90 cap 07/24/18 [Rx] Sodium Bicarbonate Tab 650 mg PO DAILY #30 tab 07/24/18 [Rx] Follow up Appointment(s)/Referral(s): Darci Woods DO [REFERRING] - 1-2 Days [facility], [NON-STAFF] - Kwabena Raman MD [STAFF PHYSICIAN] - 08/23/18 11:30 am Ambulatory/Diagnostic Orders: Basic Metabolic Panel [LAB.AMB] Time Frame: 1 Week, Location: None Selected Activity/Diet/Wound Care/Special Instructions: Diet: low fiber diet Activity: as tolerated
[2018-07-24 14:59] VITALS: BP 109/54; PULSE 83; TEMP 98.2
== END 2018-07-24 15:50 | disposition home or self-care (01) | DRG 391 ==
LOC: EC 13:55 → 4SSUR 16:05
PROVIDERS: ADMIT Family Medicine; ATTEND Family Medicine
DX: K58.9 Irritable bowel syndrome, unspecified (principal); E43 Unspecified severe protein-calorie malnutrition; E87.1 Hypo-osmolality and hyponatremia; E87.2 Acidosis; F10.231 Alcohol dependence with withdrawal delirium; J96.11 Chronic respiratory failure with hypoxia; Z68.1 Body mass index [BMI] 19.9 or less, adult; E86.0 Dehydration; E86.1 Hypovolemia; F17.210 Nicotine dependence, cigarettes, uncomplicated; F32.9 Major depressive disorder, single episode, unspecified; I10 Essential (primary) hypertension; I25.10 Atherosclerotic heart disease of native coronary artery without angina pectoris; I48.0 Paroxysmal atrial fibrillation; I73.00 Raynaud's syndrome without gangrene; J44.9 Chronic obstructive pulmonary disease, unspecified; Z79.51 Long term (current) use of inhaled steroids; Z79.899 Other long term (current) drug therapy; Z82.49 Family history of ischemic heart disease and other diseases of the circulatory system; Z93.2 Ileostomy status; Z93.3 Colostomy status; Z95.5 Presence of coronary angioplasty implant and graft; Z99.81 Dependence on supplemental oxygen; Z86.14 Personal history of Methicillin resistant Staphylococcus aureus infection; G89.29 Other chronic pain
CPT/HCPCS: 36415; 74018; 74177; 80053; 81001; 82150; 82272; 83605; 83690; 85025; 87040; 87324; 93005; 96374; 99285

== ENCOUNTER 2018-11-06 13:04 | Inpatient (IN) | payer MEDICARE, OTHER ==
[2018-11-06] MEDS ORDERED: SODIUM CHLORIDE 0.9% 1,000 ML IV STA (14:20)
--- NOTE | 2018-11-06 14:35 | ED ---
General Adult HPI <Joe Mullins - Last Filed: 11/06/18 15:55> - General Source: patient, RN notes reviewed Mode of arrival: ambulatory Limitations: no limitations <Marco A Dior - Last Filed: 11/06/18 16:20> - General Chief complaint: Extremity Problem,Nontraumatic Stated complaint: Foot Pain Time Seen by Provider: 11/06/18 13:43 - History of Present Illness Initial comments: 63-year-old male with a past medical history of hypertension, atrial fibrillation, COPD, reynauds syndrome resents to the emergency department for a chief complaint of bilateral foot pain. States his feet have been hurting chronically for years due to complications with Raynauds disease. also stating he is suicidal but does not say why or if he has a plan. Patient is a poor historian. Patient has no other complaints at this time including shortness of breath, chest pain, abdominal pain, nausea or vomiting, headache, or visual changes. (Marco A Dior) - Related Data Home Medications Medication Instructions Recorded Confirmed Folic Acid 1 mg PO DAILY 01/25/18 07/22/18 Budesonide/Formoterol Fumarate 2 puff INHALATION RT-BID 05/09/18 07/22/18 [Symbicort 160-4.5 Mcg Inhaler] Gabapentin [Neurontin] 100 mg PO BID 07/22/18 07/22/18 Previous Rx's Medication Instructions Recorded Albuterol Inhaler [Ventolin Hfa 1 - 2 puff INHALATION RT-Q6H PRN 01/31/18 Inhaler] #1 inhaler Cyanocobalamin [Vitamin B-12] 1,000 mcg PO DAILY@1200 #30 tab 01/31/18 HYDROcodone/APAP 7.5-325MG [[place] 1 - 2 tab PO Q6H PRN #56 tab 05/14/18 7.5-325] Pantoprazole [Protonix] 40 mg PO BID #60 tablet. 06/04/18 Dicyclomine [Bentyl] 10 mg PO TID #90 cap 07/24/18 Sodium Bicarbonate Tab 650 mg PO DAILY #30 tab 07/24/18 Allergies Allergy/AdvReac Type Severity Reaction Status Date / Time No Known Allergies Allergy Verified 11/06/18 14:49 Review of Systems ROS Other: All systems not noted in ROS Statement are negative. <Joe Mullins - Last Filed: 11/06/18 15:55> ROS Other: All systems not noted in ROS Statement are negative. <Marco A Dior - Last Filed: 11/06/18 16:20> ROS Statement: Those systems with pertinent positive or pertinent negative responses have been documented in the HPI. Past Medical History Past Medical History: Atrial Fibrillation, COPD, Hypertension Additional Past Medical History / Comment(s): Pt states he recently had PCI with stents about at [facility], generalized chronic pain, past multiple fractures including cervical fracture, severe diverticulitis with bowel resection/ileostomy and had bladder injury during surgery which required surgery then devloped an abdominal abscess which also required surgery, recent acute renal failure possibly d/t dehydration, bilateral Raynauld's syndrome-states fingers are always painful and numb/discoloration. 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 Past Anesthesia/Blood Transfusion Reactions: No Reported Reaction Date of Last Stent Placement:: 12/06/17 Past Psychological History: Depression Smoking Status: Current every day smoker Past Alcohol Use History: Daily Past Drug Use History: Prescription Drug Abuse - Past Family History Father Family Medical History: Myocardial Infarction ([place]) Additional Family Medical History / Comment(s): Father had 3 MIs, he had his first one at the age of 50 yrs. He at the age of 85 yrs. Mother Family Medical History: No Reported History Additional Family Medical History / Comment(s): Mother was healthy and lived to be 94 or 95 yrs old. <Marco A Dior - Last Filed: 11/06/18 16:20> General Exam Limitations: no limitations General appearance: alert, in no apparent distress Head exam: Present: atraumatic, normocephalic, normal inspection Eye exam: Present: normal appearance, PERRL, EOMI. Absent: scleral icterus, conjunctival injection, periorbital swelling ENT exam: Present: normal exam, mucous membranes moist Neck exam: Present: normal inspection, full ROM. Absent: tenderness, meningismus, lymphadenopathy Respiratory exam: Present: normal lung sounds bilaterally. Absent: respiratory distress, wheezes, rales, rhonchi, stridor Cardiovascular Exam: Present: regular rate, normal rhythm, normal heart sounds. Absent: systolic murmur, diastolic murmur, rubs, gallop, clicks GI/Abdominal exam: Present: soft, normal bowel sounds. Absent: distended, tenderness, guarding, rebound, rigid Extremities exam: Present: other (Patient does have some bluish discoloration to the tip of several fingers and toes. Pain with palpation of these. States this is chronic. Radial pulses 2+ and equal bilaterally. PT pulse is evident on Doppler. DP pulses one plus.) Neurological exam: Present: alert, oriented X3 Psychiatric exam: Present: depressed, suicidal ideation <Marco A Dior - Last Filed: 11/06/18 16:20> Course <Marco A Dior - Last Filed: 11/06/18 16:20> Vital Signs 11/06/18 11/06/18 11/06/18 13:07 14:17 15:09 Temperature 94.7 F L 97.9 F Pulse Rate 88 86 84 Respiratory 18 18 18 Rate Blood Pressure 114/82 82/64 98/74 O2 Sat by Pulse 93 L 98 94 L Oximetry - Reevaluation(s) Reevaluation #1: 11/06/18 16:04 I did speak with patient's brother to attempt to get more history after being able to get a hold of him. Patient's brother states that he was visiting a few weeks ago from [place] and it was noted that the patient felt weak. Sates he visited again today and patient was more weak and complaining of pain. Brother states he always complains of this pain. However brother was concerned because patient is seemingly losing more weight. He does admit that he drinks alcohol f requently. (Marco A Dior) EKG Findings - EKG Comments: EKG Findings:: Sinus rhythm with occasional PVC, ventricular rate 83, appeared well and 70, QTC 493, no evidence for ST elevation or depression. <Ovi,Marco A P - Last Filed: 11/06/18 16:20> Medical Decision Making - Lab Data Result diagrams: 11/06/18 14:24 11/06/18 14:24 <Joe Mullins - Last Filed: 11/06/18 15:55> - Lab Data Result diagrams: 11/06/18 14:24 11/06/18 14:24 <Marco A Dior P - Last Filed: 11/06/18 16:20> - Medical Decision Making Patient reevaluated and reexamined by myself, Dr. Mullins. Do agree with PA findings. This includes diagnostic interpretation and treatment plan. Patient resting comfortably in bed. Patient states presenting here today for depression and not wanting to live. Patient does appear dehydrated clinically as well as with labs. Patient is also hyponatremic. Patient complains of bilateral foot pain which he states is chronic for the past several years. Patient does have decreased pulses however pulses are palpable and this is confirmed with Doppler. does have some mild purplish discoloration to a couple of toes. Cap refill is approximately 3 seconds. Patient does have signs of peripheral vascular disease with somewhat elevation in troponin. Case was discussed in detail with Dr. Hylton, who will admit covering for hospital call. Heparin will be started. Consult will place with cardiology and vascular. Consult will also be placed with psychiatry. (Joe Mullins) 63-year-old male with a past medical history of atrial fibrillatiion, Raynauds disease presents to the emergency department for a chief complaint of bilateral foot pain. States this has been chronic secondary to raynauds for years. Patient is a poor historian however I was able to speak with his brother who states that he was the one to call EMS. States that he called because patient is "skin and bones" and has been weak for several weeks. Does admit that patient is an alcoholic. On appearance patient does appear cachectic. Vitals initially showed on oral temperature of 94.7 however rectal temperature was repeated and was found to be 97.9. Patient's blood pressure was initially 114/82. Blood pressure did drop to 82/64 however fluids were given and is now 98/74. On exam he does have some bluish discoloration to a few distal fingers and toes. DP pulses one plus and a PT pulse evident on Doppler bilaterally. This does appear chronic. Labs were obtained which shows a white blood cell count of 13.1 however urine does not show strong evidence of infection, will be cultured. Chest x-ray does not show any evidence of pneumonia however there is a lateral osteophyte that was evident in 2018 as well. Patient does show evidence of dehydration with a hemoglobin of 17.9 and a CO2 of 18 with an anion gap of 16. Acute kidney injury noted with a creatinine of 1.5. Troponin is 0.141, could be secondary to kidney function however given patient's discoloration and toes will be heparinized at the high-dose heparin and aspirin will be given. Lactic acid is 2.1, will be repeated at the 3 hour paulina. At this time patient will be admitted with a cardiology and vascular consult. Slow IV fluid rehydration will be administered as patient is hyponatremic with a sodium of 125. Psychiatry will also be consulted as patient is claiming to be suicidal. (Marco A Dior) - Lab Data Lab Results 11/06/18 11/06/18 11/06/18 Range/Units 14:24 14:24 14:24 WBC 13.1 H (3.8-10.6) k/uL RBC 5.13 (4.30-5.90) m/uL Hgb 17.9 H (13.0-17.5) gm/dL Hct 53.0 (39.0-53.0) % MCV 103.3 H (80.0-100.0) fL MCH 34.8 (25.0-35.0) pg MCHC 33.7 (31.0-37.0) g/dL RDW 16.2 H (11.5-15.5) % Plt Count 226 (150-450) k/uL Neutrophils % 79 % Lymphocytes % 8 % Monocytes % 9 % Eosinophils % 1 % Basophils % 1 % Neutrophils # 10.3 H (1.3-7.7) k/uL Lymphocytes # 1.1 (1.0-4.8) k/uL Monocytes # 1.2 H (0-1.0) k/uL Eosinophils # 0.2 (0-0.7) k/uL Basophils # 0.2 (0-0.2) k/uL Anisocytosis Slight Macrocytosis Slight PT (9.0-12.0) sec INR (<1.2) APTT (22.0-30.0) sec Sodium 125 L (137-145) mmol/L Potassium 4.3 (3.5-5.1) mmol/L Chloride 91 L (98-107) mmol/L Carbon Dioxide 18 L (22-30) mmol/L Anion Gap 16 mmol/L BUN 48 H (9-20) mg/dL Creatinine 1.85 H (0.66-1.25) mg/dL Est GFR (CKD-EPI)AfAm 43 (>60 ml/min/1.73 sqM) Est GFR (CKD-EPI)NonAf 37 (>60 ml/min/1.73 sqM) Glucose 102 H (74-99) mg/dL Plasma Lactic Acid Mj (0.7-2.0) mmol/L Calcium 10.2 (8.4-10.2) mg/dL Magnesium 2.3 (1.6-2.3) mg/dL Total Bilirubin 0.9 (0.2-1.3) mg/dL AST 35 (17-59) U/L ALT 14 L (21-72) U/L Alkaline Phosphatase 104 (38-126) U/L Creatine Kinase 88 (55-170) U/L CK-MB (CK-2) 11.6 H (0.0-2.4) ng/mL Troponin I 0.141 H* (0.000-0.034) ng/mL Total Protein 7.9 (6.3-8.2) g/dL Albumin 4.6 (3.5-5.0) g/dL TSH 1.570 (0.465-4.680) mIU/L Urine Color Urine Appearance (Clear) Urine pH (5.0-8.0) Ur Specific [place] (1.001-1.035) Urine Protein (Negative) Urine Glucose (UA) (Negative) Urine Ketones (Negative) Urine Blood (Negative) Urine Nitrite (Negative) Urine Bilirubin (Negative) Urine Urobilinogen (<2.0) mg/dL Ur Leukocyte Esterase (Negative) Urine RBC (0-5) /hpf Urine WBC (0-5) /hpf Urine Mucus (None) /hpf 11/06/18 11/06/18 11/06/18 Range/Units 14:24 14:24 15:25 WBC (3.8-10.6) k/uL RBC (4.30-5.90) m/uL Hgb (13.0-17.5) gm/dL Hct (39.0-53.0) % MCV (80.0-100.0) fL MCH (25.0-35.0) pg MCHC (31.0-37.0) g/dL RDW (11.5-15.5) % Plt Count (150-450) k/uL Neutrophils % % Lymphocytes % % Monocytes % % Eosinophils % % Basophils % % Neutrophils # (1.3-7.7) k/uL Lymphocytes # (1.0-4.8) k/uL Monocytes # (0-1.0) k/uL Eosinophils # (0-0.7) k/uL Basophils # (0-0.2) k/uL Anisocytosis Macrocytosis PT 10.1 (9.0-12.0) sec INR 0.9 (<1.2) APTT 29.9 (22.0-30.0) sec Sodium (137-145) mmol/L Potassium (3.5-5.1) mmol/L Chloride (98-107) mmol/L Carbon Dioxide (22-30) mmol/L Anion Gap mmol/L BUN (9-20) mg/dL Creatinine (0.66-1.25) mg/dL Est GFR (CKD-EPI)AfAm (>60 ml/min/1.73 sqM) Est GFR (CKD-EPI)NonAf (>60 ml/min/1.73 sqM) Glucose (74-99) mg/dL Plasma Lactic Acid Mj 2.1 H* (0.7-2.0) mmol/L Calcium (8.4-10.2) mg/dL Magnesium (1.6-2.3) mg/dL Total Bilirubin (0.2-1.3) mg/dL AST (17-59) U/L ALT (21-72) U/L Alkaline Phosphatase (38-126) U/L Creatine Kinase (55-170) U/L CK-MB (CK-2) (0.0-2.4) ng/mL Troponin I (0.000-0.034) ng/mL Total Protein (6.3-8.2) g/dL Albumin (3.5-5.0) g/dL TSH (0.465-4.680) mIU/L Urine Color Yellow Urine Appearance Clear (Clear) Urine pH 6.0 (5.0-8.0) Ur Specific [place] 1.009 (1.001-1.035) Urine Protein Trace H (Negative) Urine Glucose (UA) Negative (Negative) Urine Ketones Negative (Negative) Urine Blood Negative (Negative) Urine Nitrite Negative (Negative) Urine Bilirubin Negative (Negative) Urine Urobilinogen <2.0 (<2.0) mg/dL Ur Leukocyte Esterase Trace H (Negative) Urine RBC 1 (0-5) /hpf Urine WBC 7 H (0-5) /hpf Urine Mucus Rare H (None) /hpf Disposition <Joe Mullins - Last Filed: 11/06/18 15:55> Is patient prescribed a controlled substance at d/c from ED?: No Time of Disposition: 16:15 <Marco A Dior - Last Filed: 11/06/18 16:20> Clinical Impression: Hyponatremia, Hypotension, Extremity pain, Elevated troponin, Acute kidney injury Disposition: ADMITTED IP TO THIS HOSP Condition: Serious Referrals: None,Stated [Primary Care Provider] - 1-2 days
[2018-11-06 14:40] LABS: Anisocytosis Slight; Basophils # (A) 0.2 k/uL (0-0.2); Basophils % (A) 1 %; Eosinophils # (A) 0.2 k/uL (0-0.7); Eosinophils % (A) 1 %; HGB 17.9 gm/dL (13.0-17.5); Lymphocytes # (A) 1.1 k/uL (1.0-4.8); Lymphocytes % (A) 8 %; MCH 34.8 pg (25.0-35.0); MCHC 33.7 g/dL (31.0-37.0); MCV 103.3 fL (80.0-100.0); Macrocytosis Slight; Mean Platelet Volume 7.7; Monocytes # (A) 1.2 k/uL (0-1.0); Monocytes % (A) 9 %; Neutrophils # (A) 10.3 k/uL (1.3-7.7); Neutrophils % (A) 79 %; Platelet Count 226 k/uL (150-450); RBC 5.13 m/uL (4.30-5.90); RDW 16.2 % (11.5-15.5); WBC 13.1 k/uL (3.8-10.6)
[2018-11-06 14:47] LABS: INR 0.9 (<1.2); Partial Thromboplastin Time 29.9 sec (22.0-30.0); Prothrombin Time 10.1 sec (9.0-12.0)
[2018-11-06 14:52] LABS: Albumin 4.6 g/dL (3.5-5.0); Calcium 10.2 mg/dL (8.4-10.2); Magnesium 2.3 mg/dL (1.6-2.3); Potassium 4.3 mmol/L (3.5-5.1); Total Bilirubin 0.9 mg/dL (0.2-1.3); Total Protein 7.9 g/dL (6.3-8.2)
[2018-11-06 15:17] LABS: Creatine Kinase MB 11.6 ng/mL (0.0-2.4)
[2018-11-06 15:36] LABS: Troponin I 0.141 ng/mL (0.000-0.034)
[2018-11-06 15:44] LABS: Appearance,Urine Clear (Clear); Bilirubin,Urine Negative (Negative); Blood,Urine Negative (Negative); Color,Urine Yellow; Glucose,Urine (UA) Negative (Negative); Ketones,Urine Negative (Negative); Leukocyte Esterase,Urine Trace (Negative); Mucus,Urine Rare /hpf; Nitrite,Urine Negative (Negative); Protein,Urine Trace (Negative); RBC,Urine 1 /hpf (0-5); Specific Gravity,Urine 1.009 (1.001-1.035); Urobilinogen,Urine <2.0 mg/dL (<2.0); WBC,Urine 7 /hpf (0-5)
--- NOTE | 2018-11-06 15:56 | XR ---
EXAMINATION TYPE: XR chest 2V DATE OF EXAM: 11/06/2018 COMPARISON: 05/09/2018 and 01/25/2018. HISTORY: 63-year-old male with weakness TECHNIQUE: AP and lateral views FINDINGS: Heart normal size. Aorta and pulmonary vasculature within normal limits. Hyperinflation. No consolida tion or pleural effusion. Focal sclerosis posterior upper thorax on the lateral view suspected to rep resent a lateral endplate osteophyte. It was present back on 01/25/2018 as well. IMPRESSION: 1. COPD. No acute cardiopulmonary process. 2. Focal density posterior upper thorax on the lateral view suspected to represent a bulky lateral os teophyte as it was seen on 01/25/2018 as well. Given the patient's increased risk for development of lung cancer, outpatient follow-up CT chest can be performed for more detailed assessment of the lung parenchyma.
[2018-11-06] MEDS ORDERED: ASPIRIN 81 MG PO STA (16:04)
[2018-11-06] MEDS ORDERED: HEPARIN SODIUM,PORCINE 10,000 UNIT/ML 1 ML VIAL IV ONE (16:05)
[2018-11-06] MEDS ORDERED: HEPARIN SODIUM,PORCINE 5,000 UNIT/ML 1 ML VIAL IV PRN (16:05)
[2018-11-06] MEDS ORDERED: NALOXONE 0.4 MG/ML 1 ML VIAL IV PRN (16:15)
[2018-11-06 16:23] LABS: Amphetamine Screen,Urine Not Detected (NotDetected); Barbiturate Screen,Urine Not Detected (NotDetected); Benzodiazepines Screen,Urine Not Detected (NotDetected); Cocaine Screen,Urine Not Detected (NotDetected); Methadone Screen, Urine Not Detected (NotDetected); Opiate Screen,Urine Detected (NotDetected); Oxycodone Screen, Urine Not Detected (NotDetected); Phencyclidine Screen,Urine Not Detected (NotDetected); Tricyclic Antidepressant,Urine Not Detected (NotDetected); Urn Cannabinoid Scrn Not Detected (NotDetected)
[2018-11-06] MEDS: HEPARIN SOD,PORK IN 0.45% NACL 25,000 UNIT in 0.45% NACL 1 250ML.BAG IV SCH (17:15)
[2018-11-06] MEDS: SODIUM CHLORIDE 0.9% 1,000 ML IV SCH (17:17)
[2018-11-06] MEDS ORDERED: ONDANSETRON 4 MG/2 ML VIAL IVP PRN (18:02)
[2018-11-06] MEDS ORDERED: ACETAMINOPHEN TAB 325 MG TAB PO PRN (18:02)
[2018-11-06] MEDS ORDERED: LORazepam 2 MG/ML INJ IV PRN ×3 (18:05)
--- NOTE | 2018-11-06 18:07 | P.HPIM ---
History of Present Illness H&P Date: 11/06/18 Chief Complaint: Suicidal ideation, left toe discoloration 63-year-old male with PMH of alcohol abuse, hypertension, COPD, CAD post stents, Raynaud's, atrial fibrillation, history of severe diverticulitis with bowel resection and ostomy presents to the ED with multiple complaints. Patient complains of suicidal ideation. Patient states that he is sick of his life and intends on killing himself when he is to go home. Patient also complains of left toe discoloration. The discoloration is also associated with severe pain. Problem began 8-9 months ago but has been ongoing for a total of 2 years. Patient describes the pain as shooting and stabbing in nature into his toes and is aggravated by laying down. Pain is 10 out of 10 in severity. Patient states he needs to use a wheelchair to ambulate. He has never seek medical attention for this problem. Patient reports chronic alcohol abuse. He drinks 4-6 drinks daily and his last drink was today. Patient reports getting the shakes when he does not drink. He also reports poor appetite and oral intake. Patient reports nausea and NBNB vomiting with meals. Patient reports a history of severe diverticulitis with bowel resection and ostomy placement many years ago. He does not have any bowel movements. He also reports some burning with urination. He denies any fever or chills. Patient was told in the past that he had kidney damage. Patient reports a cough that is sometimes productive of clear sputum. Cough is been ongoing for many years, associates it with a smoker's cough. Patient denies any headaches, lower extremity edema, chest pain, shortness of breath, palpitations. He denies any dizziness, numbness/weakness/tingling of the extremities. Vital signs were stable. He was initially hypotensive to 82/64 but responded to fluid bolus. Pulse was as high as 97. CBC showed leukocytosis of 13.1. CBC shows sodium of 125, chloride of 91, bicarbonate of 18, BUN 48, creatinine 1.85. Lactic acid was 2.1. Troponin was 0.141, EKG showing sinus rhythm with PVCs. Chest x-ray showed signs of COPD and focal density, likely lateral osteophyte, CT chest recommended given history of smoking. Patient is admitted for suicidal ideation, troponin elevation, left toe purple discoloration. Review of Systems Pertinent positives and negatives as discussed in HPI, a complete review of systems was performed and all other systems are negative. Past Medical History Past Medical History: Atrial Fibrillation, COPD, Hypertension Additional Past Medical History / Comment(s): Pt states he recently had PCI with stents about at [facility], generalized chronic pain, past multiple fractures including cervical fracture, severe diverticulitis with bowel resection/ileostomy and had bladder injury during surgery which required surgery then devloped an abdominal abscess which also required surgery, recent acute renal failure possibly d/t dehydration, bilateral Raynauld's syndrome-states fingers are always painful and numb/discoloration. 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 Past Anesthesia/Blood Transfusion Reactions: No Reported Reaction Date of Last Stent Placement:: 12/06/17 Past Psychological History: Depression Smoking Status: Current every day smoker Past Alcohol Use History: Daily Past Drug Use History: Prescription Drug Abuse - Past Family History Father Family Medical History: Myocardial Infarction ([place]) Additional Family Medical History / Comment(s): Father had 3 MIs, he had his first one at the age of 50 yrs. He at the age of 85 yrs. Mother Family Medical History: No Reported History Additional Family Medical History / Comment(s): Mother was healthy and lived to be 94 or 95 yrs old. Medications and Allergies Home Medications Medication Instructions Recorded Confirmed Type Folic Acid 1 mg PO DAILY 01/25/18 07/22/18 History Albuterol Inhaler [Ventolin Hfa 1 - 2 puff INHALATION RT-Q6H PRN 01/31/18 07/22/18 Rx Inhaler] #1 inhaler Cyanocobalamin [Vitamin B-12] 1,000 mcg PO DAILY@1200 #30 tab 01/31/18 07/22/18 Rx Budesonide/Formoterol Fumarate 2 puff INHALATION RT-BID 05/09/18 07/22/18 History [Symbicort 160-4.5 Mcg Inhaler] HYDROcodone/APAP 7.5-325MG [[place] 1 - 2 tab PO Q6H PRN #56 tab 05/14/18 07/22/18 Rx 7.5-325] Pantoprazole [Protonix] 40 mg PO BID #60 tablet. 06/04/18 07/22/18 Rx Gabapentin [Neurontin] 100 mg PO BID 07/22/18 07/22/18 History Dicyclomine [Bentyl] 10 mg PO TID #90 cap 07/24/18 Rx Sodium Bicarbonate Tab 650 mg PO DAILY #30 tab 07/24/18 Rx Allergies Allergy/AdvReac Type Severity Reaction Status Date / Time No Known Allergies Allergy Verified 11/06/18 14:49 Physical Exam Vitals: Vital Signs Temp Pulse Resp BP Pulse Ox 11/06/18 17:20 97 18 120/97 98 11/06/18 16:49 77 18 119/78 98 11/06/18 15:09 97.9 F 84 18 98/74 94 L 11/06/18 14:17 86 18 82/64 98 11/06/18 13:07 94.7 F L 88 18 114/82 93 L Intake and Output 11/06/18 11/06/18 11/06/18 06:59 14:59 22:59 Other: Weight 68.039 kg General: [non toxic], [mild distress], [appears at stated age], [cachectic] Derm: [warm], [dry] Head: [atraumatic], [normocephalic], [symmetric] Eyes: [EOMI], [no lid lag], [anicteric sclera] Mouth: [no lip lesion], [mucus membranes moist] Cardiovascular: [S1S2 reg], [no murmur], [DP dopplerable as per ED physician bilaterally], Lungs: [Decreased breath sounds bilateral], [no rhonchi, no rales] , [no accessory muscle use] Abdominal: [soft], [epigastric tenderness without rebound, ostomy with stool collection], [no guarding], [no appreciable organomegaly] Ext: [no gross muscle atrophy], [no edema], [no contractures], [purple discoloration of the second and third toe, cold extremities] Neuro: [ CN II-XI grossly intact], [no focal neuro deficits] Psych: [Alert], [oriented], [appropriate affect] Results CBC & Chem 7: 11/06/18 14:24 11/06/18 14:24 Labs: Abnormal Lab Results - Last 24 Hours (Table) 11/06/18 11/06/18 11/06/18 Range/Units 14:24 14:24 14:24 WBC 13.1 H (3.8-10.6) k/uL Hgb 17.9 H (13.0-17.5) gm/dL MCV 103.3 H (80.0-100.0) fL RDW 16.2 H (11.5-15.5) % Neutrophils # 10.3 H (1.3-7.7) k/uL Monocytes # 1.2 H (0-1.0) k/uL Sodium 125 L (137-145) mmol/L Chloride 91 L (98-107) mmol/L Carbon Dioxide 18 L (22-30) mmol/L BUN 48 H (9-20) mg/dL Creatinine 1.85 H (0.66-1.25) mg/dL Glucose 102 H (74-99) mg/dL Plasma Lactic Acid Mj (0.7-2.0) mmol/L ALT 14 L (21-72) U/L CK-MB (CK-2) 11.6 H (0.0-2.4) ng/mL Troponin I 0.141 H* (0.000-0.034) ng/mL Urine Protein (Negative) Ur Leukocyte Esterase (Negative) Urine WBC (0-5) /hpf Urine Mucus (None) /hpf Urine Opiates Screen (NotDetected) 11/06/18 11/06/18 11/06/18 Range/Units 14:24 15:25 15:25 WBC (3.8-10.6) k/uL Hgb (13.0-17.5) gm/dL MCV (80.0-100.0) fL RDW (11.5-15.5) % Neutrophils # (1.3-7.7) k/uL Monocytes # (0-1.0) k/uL Sodium (137-145) mmol/L Chloride (98-107) mmol/L Carbon Dioxide (22-30) mmol/L BUN (9-20) mg/dL Creatinine (0.66-1.25) mg/dL Glucose (74-99) mg/dL Plasma Lactic Acid Mj 2.1 H* (0.7-2.0) mmol/L ALT (21-72) U/L CK-MB (CK-2) (0.0-2.4) ng/mL Troponin I (0.000-0.034) ng/mL Urine Protein Trace H (Negative) Ur Leukocyte Esterase Trace H (Negative) Urine WBC 7 H (0-5) /hpf Urine Mucus Rare H (None) /hpf Urine Opiates Screen Detected H (NotDetected) Thrombosis Risk Factor Assmnt - Choose All That Apply Any of the Below Risk Factors Present?: Yes Each Factor Represents 1 point: Abnormal pulmonary function (COPD) Each Risk Factor Represents 2 Points: Age 61-74 years Thrombosis Risk Factor Assessment Total Risk Factor Score: 3 Thrombosis Risk Factor Assessment Level: Moderate Risk Assessment and Plan Assessment: Assessment and Plan Severe sepsis, possible underlying cellulitis of the left lower extremity Troponin elevation with history of stent placement, rule out acute coronary syndrome Left toe discoloration, history of Raynaud's, rule out thromboembolic given hi story of A. fib Hyponatremia likely related to dehydration Alcohol abuse with high risk of withdrawal Acute kidney injury on probable chronic kidney disease Nausea and vomiting likely related to gastritis Lactic acidosis Abnormal chest x-ray Suicidal ideation Protein calorie malnutrition Patient meets criteria for sepsis. Heart rate greater than 90. Leukocytosis on admission. Hypotension responding to fluid bolus. Lactic acid of 2.1. UA shows leukocyte esterase. Chest x-ray shows COPD and no signs of pneumonia. Plans: Start Rocephin for concerns of UTI/cellulitis. Normal saline at 75 mL per hour. Tylenol as needed for fever. Follow blood and urine cultures. Troponin 0.141 with EKG showing sinus rhythm with PVCs. Possibly demand ischemia from alcohol withdrawal for sepsis. Plans: Trend troponin/EKG to rule out acute coronary syndrome. Start heparin drip per ED. Given aspirin in the ED, continue 81 mg by mouth daily. Telemetry monitoring. Follow cardiology recommendations. Follow-up echocardiogram. Dopplerable pulses as per ED physician. History of Raynaud's. Plans: Would start calcium channel lula when BP normalizes. Follow vascular surgery consultation. Sodium 125. Likely related to dehydration. Plans: IVF as above. Repeat BMP in the morning. Daily drinker. Last drink today? Plans: CIWA protocol. Ativan as needed for withdrawal symptoms. Multivitamin and thiamine. Follow magnesium level. Creatinine 1.85. Patient reports history of kidney damage. Plans: IVF as above. Repeat BMP in the morning. Avoid nephrotoxins. Will obtain ultrasound and calculate FeNa if not improved. Likely gastritis. Plans: Zofran as needed for nausea or vomiting. Start Protonix IV daily. Check amylase and lipase tomorrow. Lactic acid 2.1. Possibly related to sepsis or dehydration. Plans: IVF as above. Repeat lactic acid. Possible osteophyte seen on chest x-ray. Plans: We'll need CT chest in the outpatient setting to rule out lung cancer given history of smoking. Plans: One-to-one sitter. Suicidal precautions. Follow psychiatry recommendat ions. BMI 20.3. Cachectic. Possibly related to underlying malignancy and alcohol abuse? Plans: Dietitian consult. DVT prophylaxis: [Heparin drip] Discussed with: [Patient] Anticipated discharge: [Home] Anticipated discharge place: [3-4 days] A total of [60] minutes was spent on the care of this complex patient more than 50% of the time was spent in counseling and care coordination. In the case that he can't make decisions for himself, patient defers decision to Paige Jimenez, his best friend.
[2018-11-06] MEDS: oxyCODONE-APAP 5-325MG 1 EACH TAB PO PRN (19:10)
[2018-11-06] MEDS: PANTOPRAZOLE 40 MG/10 ML VIAL IVP SCH (19:11)
[2018-11-06] MEDS: THIAMINE 100 MG TAB PO SCH (19:12)
[2018-11-07] MEDS: SODIUM CHLORIDE 0.9% 1,000 ML IV SCH ×2 (01:01→17:29)
[2018-11-07] MEDS: THIAMINE 100 MG TAB PO SCH ×2 (05:48→17:29)
[2018-11-07 07:57] LABS: Anisocytosis Slight; Basophils # (A) 0.1 k/uL (0-0.2); Basophils % (A) 1 %; Eosinophils # (A) 0.3 k/uL (0-0.7); Eosinophils % (A) 3 %; HCT 42.9 % (39.0-53.0); Lymphocytes # (A) 1.3 k/uL (1.0-4.8); Lymphocytes % (A) 13 %; MCHC 33.9 g/dL (31.0-37.0); MCV 103.2 fL (80.0-100.0); Macrocytosis Slight; Mean Platelet Volume 7.4; Monocytes # (A) 1.2 k/uL (0-1.0); Monocytes % (A) 13 %; Neutrophils # (A) 6.5 k/uL (1.3-7.7); Neutrophils % (A) 69 %; Platelet Count 195 k/uL (150-450); RBC 4.16 m/uL (4.30-5.90); WBC 9.4 k/uL (3.8-10.6)
[2018-11-07 08:02] LABS: HGB 14.5 gm/dL (13.0-17.5)
[2018-11-07] MEDS: ASPIRIN 81 MG PO SCH (08:18)
[2018-11-07] MEDS: PANTOPRAZOLE 40 MG/10 ML VIAL IVP SCH (08:20)
[2018-11-07] MEDS: MULTIVITAMINS, THERA 1 EACH TAB PO SCH (08:20)
[2018-11-07 08:27] LABS: Partial Thromboplastin Time >200.0 sec (22.0-30.0)
[2018-11-07 08:52] LABS: Magnesium 1.9 mg/dL (1.6-2.3)
[2018-11-07 11:25] LABS: Calcium 9.3 mg/dL (8.4-10.2)
--- NOTE | 2018-11-07 12:11 | CONS ---
CONSULTATION REASON FOR CONSULTATION: Elevated troponin. Mr. Joaquin is a 63-year-old gentleman with history of coronary artery disease status post stent, Raynaud disease, atrial fibrillation, history of bowel resection, alcohol abuse, who presented to hospital with left toe pain and discoloration and suicidal ideation. Cardiology had been consulted because of elevated troponins. He denies any chest pain or difficulty in breathing. His dominant symptom is in the form of left toe discoloration with severe pain. These symptoms have been going on for the last several months. He describes the pain as severe pain 10/10 intensity and he is not able to ambulate. Cardiology is consulted for elevated troponins. The patient has renal failure with a creatinine of 1.8, which is an increase from where he was a few months ago. I believe the troponin elevation is related to that and he did not have any myocardial infarction. His EKG shows sinus rhythm with poor R-wave progression and left axis deviation with PVCs. PAST MEDICAL HISTORY: Significant for alcohol abuse, coronary artery disease, COPD, and hypertension. MEDICATIONS: Medications at home are as charted. ALLERGIES: There are no known drug allergies. FAMILY HISTORY: Negative for premature coronary artery disease. SOCIAL HISTORY: Significant for ETOH abuse and smoking. There is no history of drug abuse. REVIEW OF SYSTEMS: HEENT is unremarkable. CARDIAC as described above. RESPIRATORY: Negative. GENITOURINARY: Negative. ALLERGY/IMMUNOLOGY: Negative. SKIN: Negative. MUSCULOSKELETAL: Significant for right foot pain and discoloration. INSTALLATION AND SERVICE TECHNICIAN: Negative. PSYCH: Significant for suicidal ideation. The rest of the system review is not relevant. EXAM: Patient is afebrile. Heart rate is 70 beats per minute. Blood pressure is 100/52, respiratory is 18, O2 sat is 96% on room air. There is no jugular venous distention. Chest exam reveals good air entry bilaterally. Heart exam reveals first and second heart sounds. No gallop. No murmur. Abdomen is soft, nontender. Exam of extremities reveals that the pulses are not palpable on the right foot. There is bluish discoloration and it is cold to touch and toes have become black. ASSESSMENT: 1. Elevated troponin related to renal insufficiency. 2. History of coronary artery disease. 3. Dry gangrene of the right foot. PLAN: Please consult Vascular Surgery to evaluate the right foot. Troponin elevation does not require any further evaluation at this time. Continue with aggressive medical therapy and risk factor modification. The patient is on heparin related to troponin please stop it. I will obtain a 2D echo on him to evaluate his LV function. VALENTIN / SINTIA: [id number] /
[2018-11-07] MEDS: HEPARIN SOD,PORK IN 0.45% NACL 25,000 UNIT in 0.45% NACL 1 250ML.BAG IV SCH ×3 (12:14→16:37)
[2018-11-07] MEDS ORDERED: POTASSIUM CHLORIDE 20 MEQ in WATER FOR INJECTION 1 100ML.BAG IVPB STA (13:00)
[2018-11-07] MEDS ORDERED: POTASSIUM CHLORIDE ER 20 MEQ TAB.ER PO STA (13:00)
--- NOTE | 2018-11-07 13:12 | P.PN ---
Subjective Progress Note Date: 11/07/18 Principal diagnosis: Left toe pain Patient was seen and examined. No acute events overnight. Patient reports no changes in his condition since yesterday. Complains of epigastric discomfort when eating a meal. No nausea or vomiting. Also complains of left toe pain, 10 out of 10 in severity. He denies any chest pain, shortness of breath or palpitations. No fever or chills. Sitter at bedside. Objective - Vital Signs Vital signs: Vital Signs Temp 97.5 F L 11/07/18 04:00 Pulse 76 11/07/18 04:00 Resp 16 11/07/18 04:00 BP 100/50 11/07/18 04:00 Pulse Ox 96 11/07/18 04:00 Intake & Output 11/06/18 11/07/18 11/07/18 18:59 06:59 18:59 Intake Total 1631.753 99.793 Output Total 400 Balance 1231.753 99.793 Weight 68.039 kg Intake: Intake, IV Titration 1581.753 99.793 Amount Heparin Sod,Pork in 0.45% 106.753 99.793 NaCl 25,000 unit In 0.45 % NaCl 1 250ml.bag @ 18 UNITS/KG/HR 12.247 mls/hr IV .[id number] MARTI Rx#: [id number] Sodium Chloride 0.9% 1, 375 000 ml @ 75 mls/hr IV . [id number] MARTI Rx#:[id number] Sodium Chloride 0.9% 1, 1000 000 ml @ 999 mls/hr IV . Q1H1M STA Rx#:[id number] cefTRIAXone 1 gm In 100 Sodium Chloride 0.9% 50 ml @ 100 mls/hr IVPB Q24H MARTI Rx#:[id number] Oral 50 Output: Urine 200 Other 200 Other: # Voids 0 - Exam General: [non toxic], [mild distress], [appears at stated age], [cachectic] Derm: [warm], [dry] Head: [atraumatic], [normocephalic], [symmetric] Eyes: [EOMI], [no lid lag], [anicteric sclera] Mouth: [no lip lesion], [mucus membranes moist] Cardiovascular: [S1S2 reg], [no murmur], [DP dopplerable as per ED physician bilaterally], Lungs: [Decreased breath sounds bilateral], [no rhonchi, no rales] , [no accessory muscle use] Abdominal: [soft], [epigastric tenderness without rebound, ostomy with stool collection], [no guarding], [no appreciable organomegaly] Ext: [no gross muscle atrophy], [no edema], [no contractures], [purple discoloration of the second and third toe, cold extremities] Neuro: [no focal neuro deficits] Psych: [Alert], [oriented], [appropriate affect] - Labs CBC & Chem 7: 11/07/18 07:32 11/07/18 07:32 Labs: Abnormal Lab Results - Last 24 Hours (Table) 11/06/18 11/06/18 11/06/18 Range/Units 14:24 14:24 14:24 WBC 13.1 H (3.8-10.6) k/uL RBC (4.30-5.90) m/uL Hgb 17.9 H (13.0-17.5) gm/dL MCV 103.3 H (80.0-100.0) fL RDW 16.2 H (11.5-15.5) % Neutrophils # 10.3 H (1.3-7.7) k/uL Monocytes # 1.2 H (0-1.0) k/uL APTT (22.0-30.0) sec Sodium 125 L (137-145) mmol/L Potassium (3.5-5.1) mmol/L Chloride 91 L (98-107) mmol/L Carbon Dioxide 18 L (22-30) mmol/L BUN 48 H (9-20) mg/dL Creatinine 1.85 H (0.66-1.25) mg/dL Glucose 102 H (74-99) mg/dL Plasma Lactic Acid Mj (0.7-2.0) mmol/L ALT 14 L (21-72) U/L CK-MB (CK-2) 11.6 H (0.0-2.4) ng/mL Troponin I 0.141 H* (0.000-0.034) ng/mL Urine Protein (Negative) Ur Leukocyte Esterase (Negative) Urine WBC (0-5) /hpf Urine Mucus (None) /hpf Urine Opiates Screen (NotDetected) 11/06/18 11/06/18 11/06/18 Range/Units 14:24 15:25 15:25 WBC (3.8-10.6) k/uL RBC (4.30-5.90) m/uL Hgb (13.0-17.5) gm/dL MCV (80.0-100.0) fL RDW (11.5-15.5) % Neutrophils # (1.3-7.7) k/uL Monocytes # (0-1.0) k/uL APTT (22.0-30.0) sec Sodium (137-145) mmol/L Potassium (3.5-5.1) mmol/L Chloride (98-107) mmol/L Carbon Dioxide (22-30) mmol/L BUN (9-20) mg/dL Creatinine (0.66-1.25) mg/dL Glucose (74-99) mg/dL Plasma Lactic Acid Mj 2.1 H* (0.7-2.0) mmol/L ALT (21-72) U/L CK-MB (CK-2) (0.0-2.4) ng/mL Troponin I (0.000-0.034) ng/mL Urine Protein Trace H (Negative) Ur Leukocyte Esterase Trace H (Negative) Urine WBC 7 H (0-5) /hpf Urine Mucus Rare H (None) /hpf Urine Opiates Screen Detected H (NotDetected) 11/06/18 11/06/18 11/07/18 Range/Units 18:22 22:53 02:09 WBC (3.8-10.6) k/uL RBC (4.30-5.90) m/uL Hgb (13.0-17.5) gm/dL MCV (80.0-100.0) fL RDW (11.5-15.5) % Neutrophils # (1.3-7.7) k/uL Monocytes # (0-1.0) k/uL APTT 37.7 H (22.0-30.0) sec Sodium (137-145) mmol/L Potassium (3.5-5.1) mmol/L Chloride (98-107) mmol/L Carbon Dioxide (22-30) mmol/L BUN (9-20) mg/dL Creatinine (0.66-1.25) mg/dL Glucose (74-99) mg/dL Plasma Lactic Acid Mj 2.1 H* (0.7-2.0) mmol/L ALT (21-72) U/L CK-MB (CK-2) (0.0-2.4) ng/mL Troponin I 0.166 H* (0.000-0.034) ng/mL Urine Protein (Negative) Ur Leukocyte Esterase (Negative) Urine WBC (0-5) /hpf Urine Mucus (None) /hpf Urine Opiates Screen (NotDetected) 11/07/18 11/07/18 11/07/18 Range/Units 07:32 07:32 07:32 WBC (3.8-10.6) k/uL RBC 4.16 L (4.30-5.90) m/uL Hgb (13.0-17.5) gm/dL MCV 103.2 H (80.0-100.0) fL RDW 16.0 H (11.5-15.5) % Neutrophils # (1.3-7.7) k/uL Monocytes # 1.2 H (0-1.0) k/uL APTT >200.0 H* (22.0-30.0) sec Sodium (137-145) mmol/L Potassium (3.5-5.1) mmol/L Chloride (98-107) mmol/L Carbon Dioxide (22-30) mmol/L BUN (9-20) mg/dL Creatinine (0.66-1.25) mg/dL Glucose (74-99) mg/dL Plasma Lactic Acid Mj (0.7-2.0) mmol/L ALT (21-72) U/L CK-MB (CK-2) (0.0-2.4) ng/mL Troponin I 0.162 H* (0.000-0.034) ng/mL Urine Protein (Negative) Ur Leukocyte Esterase (Negative) Urine WBC (0-5) /hpf Urine Mucus (None) /hpf Urine Opiates Screen (NotDetected) 11/07/18 Range/Units 07:32 WBC (3.8-10.6) k/uL RBC (4.30-5.90) m/uL Hgb (13.0-17.5) gm/dL MCV (80.0-100.0) fL RDW (11.5-15.5) % Neutrophils # (1.3-7.7) k/uL Monocytes # (0-1.0) k/uL APTT (22.0-30.0) sec Sodium 129 L (137-145) mmol/L Potassium 3.0 L (3.5-5.1) mmol/L Chloride (98-107) mmol/L Carbon Dioxide 15 L (22-30) mmol/L BUN 41 H (9-20) mg/dL Creatinine 1.76 H (0.66-1.25) mg/dL Glucose (74-99) mg/dL Plasma Lactic Acid Mj (0.7-2.0) mmol/L ALT (21-72) U/L CK-MB (CK-2) (0.0-2.4) ng/mL Troponin I (0.000-0.034) ng/mL Urine Protein (Negative) Ur Leukocyte Esterase (Negative) Urine WBC (0-5) /hpf Urine Mucus (None) /hpf Urine Opiates Screen (NotDetected) Assessment and Plan Assessment: Assessment and Plan Severe sepsis, possible underlying cellulitis of the left lower extremity Troponin elevation with history of stent placement, rule out acute coronary syndrome Left toe discoloration, history of Raynaud's, rule out thromboembolic given history of A. fib Hyponatremia likely related to dehydration Alcohol abuse with high risk of withdrawal Acute kidney injury on probable chronic kidney disease Nausea and vomiting likely related to gastritis Lactic acidosis Abnormal chest x-ray Suicidal ideation Protein calorie malnutrition COPD Hypokalemia Patient meets criteria for sepsis. Heart rate greater than 90. Leukocytosis on admission. Hypotension responding to fluid bolus. Lactic acid of 2.1. UA shows leukocyte esterase. Chest x-ray shows COPD and no signs of pneumonia. Plans: Start Rocephin for concerns of UTI/cellulitis. Normal saline at 75 mL per hour. Tylenol as needed for fever. Follow blood and urine cultures. Troponin 0.141, 0.166, 0.162 with EKG showing sinus rhythm with PVCs. Possibly demand ischemia from alcohol withdrawal for sepsis or leak from CKD. Plans: Cardiology evaluated patient, recommends discontinue heparin drip and no further workup. ACS ruled out. Given aspirin in the ED, continue 81 mg by mouth daily. Telemetry monitoring. Follow cardiology recommendations. Follow-up echocardiogram. Dopplerable pulses as per ED physician. History of Raynaud's. Plans: Would start calcium channel lula when BP normalizes. Follow vascular surgery consultation. Sodium 125-129. Likely related to dehydration. Plans: IVF as above. Repeat BMP in the morning. Daily drinker. Last drink today? Plans: CIWA protocol. Ativan as needed for withdrawal symptoms. Multivitamin and thiamine. Follow magnesium level. Creatinine 1.85-1.76. Patient reports history of kidney damage. Plans: IVF as above. Repeat BMP in the morning. Avoid nephrotoxins. Will obtain ultrasound and calculate FeNa if not improved. Likely gastritis. Amylase and lipase within normal limits. Plans: Zofran as needed for nausea or vomiting. Continue Protonix IV daily. Lactic acid 2.1.-1.2 Possibly related to sepsis or dehydration. Plans: Re solved Possible osteophyte seen on chest x-ray. Plans: We'll need CT chest in the outpatient setting to rule out lung cancer given history of smoking. Plans: One-to-one sitter. Suicidal precautions. Follow psychiatry recommendations. BMI 20.3. Cachectic. Possibly related to underlying malignancy and alcohol abuse? Plans: Dietitian consult. Stable. Plans: DuoNeb as needed for SOB or wheezing. Potassium 3.0. Plans: Replace the IV and by mouth. Repeat BMP in the morning. [Cardiology evaluated for troponin elevation, recommends echocardiogram and no further workup, heparin drip discontinued. Vascular surgery consultation pending. Psychiatry consultation pending.]
[2018-11-07] MEDS ORDERED: HYDROcodone/APAP 7.5-325MG 1 EACH TAB PO PRN (13:36)
[2018-11-07] MEDS ORDERED: MORPHINE SULFATE 4 MG/ML SYRINGE IVP STA (13:37)
--- NOTE | 2018-11-07 14:37 | P.CN ---
Psychiatric Consult - . Consult date: 11/07/18 Consult:: 11/07/18 14:35 Chief complaint Psychiatry was consulted to evaluate the patient for suicidal ideations. Patient with significant history of alcohol abuse and multiple medical conditions such as hypertension, COPD, CAD post stents, Raynaud's, atrial fibrillation, history of severe diverticulitis with bowel resection and ostomy was admitted to medical floor for Left toe discoloration. History of presenting illness Patient reused to talk, stating he is hurting all over. He was sleeping on his bed. There was a sitter next to his bed. When asked if he had any thoughts of wanting to hurt self, he stated yes , but refused to answer further and told "demario come back tomorrow morning. Per unit staff patient lives alone in his apartment. Patients son who came to visit his father from out of state has brought patient to the hospital yesterday night. Reportedly patient has a history of drinking 14 shots of liquor every day and smokes two packs of cigarettes every day. Plan To re-evaluate patient when he is cooperative
[2018-11-07] MEDS: SODIUM BICARBONATE TAB 650 MG TAB PO SCH (14:38)
--- NOTE | 2018-11-07 14:53 | P.GSCN ---
History of Present Illness Consult date: 11/07/18 History of present illness: The patient is a 63-year-old male with a past medical history of alcohol abuse, hypertension, COPD, coronary artery disease post-stenting, Raynolds, atrial fibrillation, perforated diverticulitis with Malcolm's procedure, who initially presented to the hospital for overall pain. He threatened suicide and had a plan to do so upon arrival in the ER. He states that he has pain in his left foot that has been going on for the past many months to years. He has pain in his discolored toes the majority of the time. He has pain in his calves while ambulating, stating he can only walk about 6 feet. He denies any fevers, chills, nausea or vomiting. He denies any sores or wounds on his feet. He drinks 6-7 doubles of whiskey or vodka a day. He smokes approximately 2 packs of cigarettes per day. Review of Systems 14 point review of systems performed, pertinent positives and negatives per the HPI Past Medical History Past Medical History: Atrial Fibrillation, COPD, Hypertension Additional Past Medical History / Comment(s): Pt states he recently had PCI with stents about at [facility], generalized chronic pain, past multiple fractures including cervical fracture, severe diverticulitis with bowel resection/ileostomy and had bladder injury during surgery which required surgery then devloped an abdominal abscess which also required surgery, recent acute renal failure possibly d/t dehydration, bilateral Raynauld's syndrome-states fingers are always painful and numb/discoloration. 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 Past Anesthesia/Blood Transfusion Reactions: No Reported Reaction Date of Last Stent Placement:: 12/06/17 Past Psychological History: Depression Smoking Status: Current every day smoker Past Alcohol Use History: Daily Past Drug Use History: Prescription Drug Abuse - Past Family History Father Family Medical History: Myocardial Infarction (CT) Additional Family Medical History / Comment(s): Father had 3 MIs, he had his first one at the age of 50 yrs. He at the age of 85 yrs. Mother Family Medical History: No Reported History Additional Family Medical History / Comment(s): Mother was healthy and lived to be 94 or 95 yrs old. Medications and Allergies Home Medications Medication Instructions Recorded Confirmed Type Folic Acid 1 mg PO DAILY 01/25/18 07/22/18 History Albuterol Inhaler [Ventolin Hfa 1 - 2 puff INHALATION RT-Q6H PRN 01/31/18 07/22/18 Rx Inhaler] #1 inhaler Cyanocobalamin [Vitamin B-12] 1,000 mcg PO DAILY@1200 #30 tab 01/31/18 07/22/18 Rx Budesonide/Formoterol Fumarate 2 puff INHALATION RT-BID 05/09/18 07/22/18 History [Symbicort 160-4.5 Mcg Inhaler] HYDROcodone/APAP 7.5-325MG [[place] 1 - 2 tab PO Q6H PRN #56 tab 05/14/18 07/22/18 Rx 7.5-325] Pantoprazole [Protonix] 40 mg PO BID #60 tablet.dr 06/04/18 07/22/18 Rx Gabapentin [Neurontin] 100 mg PO BID 07/22/18 07/22/18 History Dicyclomine [Bentyl] 10 mg PO TID #90 cap 07/24/18 Rx Sodium Bicarbonate Tab 650 mg PO DAILY #30 tab 07/24/18 Rx Allergies Allergy/AdvReac Type Severity Reaction Status Date / Time No Known Allergies Allergy Verified 11/06/18 14:49 Surgical - Exam Vital Signs Temp Pulse Resp BP Pulse Ox 94.7 F L 88 18 114/82 93 L 11/06/18 13:07 11/06/18 13:07 11/06/18 13:07 11/06/18 13:07 11/06/18 13:07 A cachectic-appearing male in no acute distress, blankets covering his head and disgruntled through the entirety of the exam HEENT normocephalic, temporal wasting, atraumatic Neck thin, no masses, trachea midline Heart is irregularly irregular at this time Lungs with decreased breath sounds and x-ray wheezes bilaterally Abdomen is soft, flat, no pulsatile masses. There is a left lower quadrant ostomy which is pink and patent with gas and stool in bag. There appears to be a right groin hernia which is soft. Extremities no clubbing or edema. On the left foot, the first, second and fourth toes are slightly cyanotic and tender to palpation. Delayed capillary refill Palpable radial, femoral pulses bilaterally. Monophasic Doppler signals at DP and PT Results - Labs 11/07/18 07:32 11/07/18 07:32 Abnormal Lab Results - Last 24 Hours (Table) 11/06/18 11/06/18 11/06/18 Range/Units 14:24 14:24 14:24 WBC 13.1 H (3.8-10.6) k/uL RBC (4.30-5.90) m/uL Hgb 17.9 H (13.0-17.5) gm/dL MCV 103.3 H (80.0-100.0) fL RDW 16.2 H (11.5-15.5) % Neutrophils # 10.3 H (1.3-7.7) k/uL Monocytes # 1.2 H (0-1.0) k/uL APTT (22.0-30.0) sec Sodium 125 L (137-145) mmol/L Potassium (3.5-5.1) mmol/L Chloride 91 L (98-107) mmol/L Carbon Dioxide 18 L (22-30) mmol/L BUN 48 H (9-20) mg/dL Creatinine 1.85 H (0.66-1.25) mg/dL Glucose 102 H (74-99) mg/dL Plasma Lactic Acid Mj (0.7-2.0) mmol/L ALT 14 L (21-72) U/L CK-MB (CK-2) 11.6 H (0.0-2.4) ng/mL Troponin I 0.141 H* (0.000-0.034) ng/mL Urine Protein (Negative) Ur Leukocyte Esterase (Negative) Urine WBC (0-5) /hpf Urine Mucus (None) /hpf Urine Opiates Screen (NotDetected) 11/06/18 11/06/18 11/06/18 Range/Units 14:24 15:25 15:25 WBC (3.8-10.6) k/uL RBC (4.30-5.90) m/uL Hgb (13.0-17.5) gm/dL MCV (80.0-100.0) fL RDW (11.5-15.5) % Neutrophils # (1.3-7.7) k/uL Monocytes # (0-1.0) k/uL APTT (22.0-30.0) sec Sodium (137-145) mmol/L Potassium (3.5-5.1) mmol/L Chloride (98-107) mmol/L Carbon Dioxide (22-30) mmol/L BUN (9-20) mg/dL Creatinine (0.66-1.25) mg/dL Glucose (74-99) mg/dL Plasma Lactic Acid Mj 2.1 H* (0.7-2.0) mmol/L ALT (21-72) U/L CK-MB (CK-2) (0.0-2.4) ng/mL Troponin I (0.000-0.034) ng/mL Urine Protein Trace H (Negative) Ur Leukocyte Esterase Trace H (Negative) Urine WBC 7 H (0-5) /hpf Urine Mucus Rare H (None) /hpf Urine Opiates Screen Detected H (NotDetected) 11/06/18 11/06/18 11/07/18 Range/Units 18:22 22:53 02:09 WBC (3.8-10.6) k/uL RBC (4.30-5.90) m/uL Hgb (13.0-17.5) gm/dL MCV (80.0-100.0) fL RDW (11.5-15.5) % Neutrophils # (1.3-7.7) k/uL Monocytes # (0-1.0) k/uL APTT 37.7 H (22.0-30.0) sec Sodium (137-145) mmol/L Potassium (3.5-5.1) mmol/L Chloride (98-107) mmol/L Carbon Dioxide (22-30) mmol/L BUN (9-20) mg/dL Creatinine (0.66-1.25) mg/dL Glucose (74-99) mg/dL Plasma Lactic Acid Mj 2.1 H* (0.7-2.0) mmol/L ALT (21-72) U/L CK-MB (CK-2) (0.0-2.4) ng/mL Troponin I 0.166 H* (0.000-0.034) ng/mL Urine Protein (Negative) Ur Leukocyte Esterase (Negative) Urine WBC (0-5) /hpf Urine Mucus (None) /hpf Urine Opiates Screen (NotDetected) 11/07/18 11/07/18 11/07/18 Range/Units 07:32 07:32 07:32 WBC (3.8-10.6) k/uL RBC 4.16 L (4.30-5.90) m/uL Hgb (13.0-17.5) gm/dL MCV 103.2 H (80.0-100.0) fL RDW 16.0 H (11.5-15.5) % Neutrophils # (1.3-7.7) k/uL Monocytes # 1.2 H (0-1.0) k/uL APTT >200.0 H* (22.0-30.0) sec Sodium (137-145) mmol/L Potassium (3.5-5.1) mmol/L Chloride (98-107) mmol/L Carbon Dioxide (22-30) mmol/L BUN (9-20) mg/dL Creatinine (0.66-1.25) mg/dL Glucose (74-99) mg/dL Plasma Lactic Acid Mj (0.7-2.0) mmol/L ALT (21-72) U/L CK-MB (CK-2) (0.0-2.4) ng/mL Troponin I 0.162 H* (0.000-0.034) ng/mL Urine Protein (Negative) Ur Leukocyte Esterase (Negative) Urine WBC (0-5) /hpf Urine Mucus (None) /hpf Urine Opiates Screen (NotDetected) 11/07/18 Range/Units 07:32 WBC (3.8-10.6) k/uL RBC (4.30-5.90) m/uL Hgb (13.0-17.5) gm/dL MCV (80.0-100.0) fL RDW (11.5-15.5) % Neutrophils # (1.3-7.7) k/uL Monocytes # (0-1.0) k/uL APTT (22.0-30.0) sec Sodium 129 L (137-145) mmol/L Potassium 3.0 L (3.5-5.1) mmol/L Chloride (98-107) mmol/L Carbon Dioxide 15 L (22-30) mmol/L BUN 41 H (9-20) mg/dL Creatinine 1.76 H (0.66-1.25) mg/dL Glucose (74-99) mg/dL Plasma Lactic Acid Mj (0.7-2.0) mmol/L ALT (21-72) U/L CK-MB (CK-2) (0.0-2.4) ng/mL Troponin I (0.000-0.034) ng/mL Urine Protein (Negative) Ur Leukocyte Esterase (Negative) Urine WBC (0-5) /hpf Urine Mucus (None) /hpf Urine Opiates Screen (NotDetected) Diabetes panel 11/06/18 11/07/18 Range/Units 14:24 07:32 Sodium 125 L 129 L (137-145) mmol/L Potassium 4.3 3.0 L (3.5-5.1) mmol/L Chloride 91 L 102 (98-107) mmol/L Carbon Dioxide 18 L 15 L (22-30) mmol/L BUN 48 H 41 H (9-20) mg/dL Creatinine 1.85 H 1.76 H (0.66-1.25) mg/dL Glucose 102 H 76 (74-99) mg/dL Calcium 10.2 9.3 (8.4-10.2) mg/dL AST 35 (17-59) U/L ALT 14 L (21-72) U/L Alkaline Phosphatase 104 (38-126) U/L Total Protein 7.9 (6.3-8.2) g/dL Albumin 4.6 (3.5-5.0) g/dL Thyroid panel 11/06/18 Range/Units 14:24 TSH 1.570 (0.465-4.680) mIU/L Calcium panel 11/06/18 11/07/18 Range/Units 14:24 07:32 Calcium 10.2 9.3 (8.4-10.2) mg/dL Albumin 4.6 (3.5-5.0) g/dL Pituitary panel 11/06/18 11/07/18 Range/Units 14:24 07:32 Sodium 125 L 129 L (137-145) mmol/L Potassium 4.3 3.0 L (3.5-5.1) mmol/L Chloride 91 L 102 (98-107) mmol/L Carbon Dioxide 18 L 15 L (22-30) mmol/L BUN 48 H 41 H (9-20) mg/dL Creatinine 1.85 H 1.76 H (0.66-1.25) mg/dL Glucose 102 H 76 (74-99) mg/dL Calcium 10.2 9.3 (8.4-10.2) mg/dL TSH 1.570 (0.465-4.680) mIU/L Adrenal panel 11/06/18 11/07/18 Range/Units 14:24 07:32 Sodium 125 L 129 L (137-145) mmol/L Potassium 4.3 3.0 L (3.5-5.1) mmol/L Chloride 91 L 102 (98-107) mmol/L Carbon Dioxide 18 L 15 L (22-30) mmol/L BUN 48 H 41 H (9-20) mg/dL Creatinine 1.85 H 1.76 H (0.66-1.25) mg/dL Glucose 102 H 76 (74-99) mg/dL Calcium 10.2 9.3 (8.4-10.2) mg/dL Total Bilirubin 0.9 (0.2-1.3) mg/dL AST 35 (17-59) U/L ALT 14 L (21-72) U/L Alkaline Phosphatase 104 (38-126) U/L Total Protein 7.9 (6.3-8.2) g/dL Albumin 4.6 (3.5-5.0) g/dL Assessment and Plan Assessment: Cyanosis of left first, second and fourth toes, question blue toe syndrome Peripheral arterial disease Atrial fibrillation Hypertension coronary artery disease status post stents Alcohol abuse Tobacco abuse Severe protein calorie malnutrition, temporal wasting, cachexia Plan: Patient likely with significant peripheral arterial disease. Likely more of a chronic picture of his toe cyanosis and his symptomatic claudication, but would Question blue toe syndrome with diagnosis of atrial fibrillation. No clinical evidence of aneurysmal disease on exam. At this time we will continue the heparin drip, we will order an duplex ultrasound of the bilateral lower extremities with segmental pressures to evaluate. We'll await further recommendations pending evaluation. Patient may need revascularization. At this point no acute need for intervention or amputation. No evidence of wounds or infectious process. Thank you for allowing me to participate in the care of this patient. Please call with any questions.
[2018-11-07] MEDS ORDERED: HEPARIN SODIUM,PORCINE 5,000 UNIT/ML 1 ML VIAL IV ONE (16:20)
[2018-11-07] MEDS ORDERED: HEPARIN SODIUM,PORCINE 5,000 UNIT/ML 1 ML VIAL IV PRN (16:20)
[2018-11-07] MEDS: DICYCLOMINE 10 MG CAP PO SCH ×2 (17:29→23:01)
[2018-11-07] MEDS: MORPHINE SULFATE 2 MG/ML SYRINGE IV PRN (17:30)
[2018-11-07] MEDS: GABAPENTIN 100 MG CAP PO SCH (20:39)
[2018-11-08] MEDS: SODIUM CHLORIDE 0.9% 1,000 ML IV SCH ×4 (01:30→18:25)
[2018-11-08] MEDS: MORPHINE SULFATE 2 MG/ML SYRINGE IV PRN (05:30)
[2018-11-08 06:45] LABS: Basophils % (A) 1 %; Eosinophils # (A) 0.2 k/uL (0-0.7); Eosinophils % (A) 3 %; HCT 39.4 % (39.0-53.0); HGB 13.2 gm/dL (13.0-17.5); Lymphocytes # (A) 0.9 k/uL (1.0-4.8); Lymphocytes % (A) 15 %; MCHC 33.4 g/dL (31.0-37.0); MCV 104.8 fL (80.0-100.0); Macrocytosis Moderate; Mean Platelet Volume 7.4; Monocytes # (A) 0.8 k/uL (0-1.0); Monocytes % (A) 14 %; Neutrophils # (A) 4.1 k/uL (1.3-7.7); Neutrophils % (A) 67 %; Platelet Count 159 k/uL (150-450); RBC 3.76 m/uL (4.30-5.90); WBC 6.1 k/uL (3.8-10.6)
[2018-11-08] MEDS: THIAMINE 100 MG TAB PO SCH ×2 (06:51→18:23)
[2018-11-08 06:57] LABS: INR 0.9 (<1.2); Partial Thromboplastin Time 28.9 sec (22.0-30.0); Prothrombin Time 10.1 sec (9.0-12.0)
[2018-11-08 06:59] LABS: Calcium 8.6 mg/dL (8.4-10.2); Potassium 3.6 mmol/L (3.5-5.1)
[2018-11-08] MEDS: GABAPENTIN 100 MG CAP PO SCH ×2 (08:58→20:16)
[2018-11-08] MEDS: MULTIVITAMINS, THERA 1 EACH TAB PO SCH (08:58)
[2018-11-08] MEDS: PANTOPRAZOLE 40 MG/10 ML VIAL IVP SCH (08:58)
[2018-11-08] MEDS: ASPIRIN 81 MG PO SCH (08:58)
[2018-11-08] MEDS: DICYCLOMINE 10 MG CAP PO SCH ×3 (08:58→22:45)
[2018-11-08] MEDS: SODIUM BICARBONATE TAB 650 MG TAB PO SCH (08:58)
--- NOTE | 2018-11-08 11:17 | P.PN ---
Subjective Progress Note Date: 11/08/18 Patient seen and examined. Much more pleasant today. Still with pain in his left foot, the toes. Although states it is improved overall Objective - Vital Signs Vital signs: Vital Signs Temp 97 F L 11/08/18 08:30 Pulse 83 11/08/18 08:30 Resp 18 11/08/18 08:30 BP 85/47 11/08/18 08:30 Pulse Ox 100 11/08/18 08:30 Intake & Output 11/07/18 11/08/18 11/08/18 18:59 06:59 18:59 Intake Total 815.929 106.529 240 Output Total 325 150 300 Balance 490.929 -43.471 -60 Weight 68.039 kg 65 kg Intake: Intake, IV Titration 99.929 106.529 Amount Heparin Sod,Pork in 0.45% 0.136 106.529 NaCl 25,000 unit In 0.45 % NaCl 1 250ml.bag @ 12 UNITS/KG/HR 8.165 mls/hr IV .Q24H MARTI Rx#: [id number] Heparin Sod,Pork in 0.45% 99.793 NaCl 25,000 unit In 0.45 % NaCl 1 250ml.bag @ 18 UNITS/KG/HR 12.247 mls/hr IV .[id number] MARTI Rx#: [id number] Oral 716 240 Output: Urine 325 150 Stool 300 Other: Voiding Method Urinal Urinal # Voids 1 # Bowel Movements 1 - Exam No acute distress resting comes with, just finished echocardiogram Heart irregular Lungs clear Abdomen soft, mild tenderness diffusely to palpation. No pulsatile masses noted. Fullness in the right lower quadrant. Ostomy bag in left lower quadrant patent Bilateral lower extremities warm, dry Doppler signals present. Slightly improved cyanosis to first second and fourth toes on the left - Labs CBC & Chem 7: 11/08/18 06:18 11/08/18 06:18 Labs: Abnormal Lab Results - Last 24 Hours (Table) 11/07/18 11/08/18 11/08/18 Range/Units 07:32 06:18 06:18 RBC 3.76 L (4.30-5.90) m/uL MCV 104.8 H (80.0-100.0) fL RDW 16.0 H (11.5-15.5) % Lymphocytes # 0.9 L (1.0-4.8) k/uL Sodium 129 L 134 L (137-145) mmol/L Potassium 3.0 L (3.5-5.1) mmol/L Chloride 110 H (98-107) mmol/L Carbon Dioxide 15 L 17 L (22-30) mmol/L BUN 41 H 30 H (9-20) mg/dL Creatinine 1.76 H 1.57 H (0.66-1.25) mg/dL Microbiology - Last 24 Hours (Table) 11/06/18 18:22 Blood Culture - Preliminary Blood No Growth after 24 hours Assessment and Plan Assessment: Cyanosis of left first, second and fourth toes, question blue toe syndrome Peripheral arterial disease Atrial fibrillation Hypertension coronary artery disease status post stents Alcohol abuse Tobacco abuse Severe protein calorie malnutrition, temporal wasting, cachexia Plan: Bilateral lower extremity arterial imaging reveals ABIs of the bilateral lower extremities that are normal. There appeared to be normal segmental pressures and multiphasic waveforms at least to the level of the ankle. On the left at the toes, there is diminished waveforms. Heightened suspicion for blue toe syndrome. We will obtain computed tomography scan of the abdomen and pelvis with runoffs. No evidence of intracardiac thrombus per lead principal technical architect. Continue pain control. Continue heparin drip at this time although currently not therapeutic
--- NOTE | 2018-11-08 11:57 | P.PN ---
Subjective Progress Note Date: 11/08/18 Principal diagnosis: Left toe pain Patient was seen and examined. No acute events overnight. Patient reports well-controlled pain in the left foot. He has no complaints this morning. He denies any chest pain, shortness of breath or palpitations. Looking comfortably. Objective - Vital Signs Vital signs: Vital Signs Temp 97 F L 11/08/18 08:30 Pulse 83 11/08/18 08:30 Resp 18 11/08/18 08:30 BP 85/47 11/08/18 08:30 Pulse Ox 100 11/08/18 08:30 Intake & Output 11/07/18 11/08/18 11/08/18 18:59 06:59 18:59 Intake Total 815.929 106.529 240 Output Total 325 150 300 Balance 490.929 -43.471 -60 Weight 68.039 kg 65 kg Intake: Intake, IV Titration 99.929 106.529 Amount Heparin Sod,Pork in 0.45% 0.136 106.529 NaCl 25,000 unit In 0.45 % NaCl 1 250ml.bag @ 12 UNITS/KG/HR 8.165 mls/hr IV .Q24H MARTI Rx#: [id number] Heparin Sod,Pork in 0.45% 99.793 NaCl 25,000 unit In 0.45 % NaCl 1 250ml.bag @ 18 UNITS/KG/HR 12.247 mls/hr IV .[id number] MARTI Rx#: [id number] Oral 716 240 Output: Urine 325 150 Stool 300 Other: Voiding Method Urinal Urinal # Voids 1 # Bowel Movements 1 - Exam General: [non toxic], [mild distress], [appears at stated age], [cachectic] Derm: [warm], [dry] Head: [atraumatic], [normocephalic], [symmetric] Eyes: [EOMI], [no lid lag], [anicteric sclera] Mouth: [no lip lesion], [mucus membranes moist] Cardiovascular: [S1S2 reg], [no murmur], [DP dopplerable as per ED physician bilaterally] Lungs: [Decreased breath sounds bilateral], [no rhonchi, no rales] , [no accessory muscle use] Ext: [no gross muscle atrophy], [no edema], [no contractures], [purple discoloration of the second and third toe, cold extremities] Neuro: [no focal neuro deficits] Psych: [Alert], [oriented], [appropriate affect] - Labs CBC & Chem 7: 11/08/18 06:18 11/08/18 06:18 Labs: Abnormal Lab Results - Last 24 Hours (Table) 11/08/18 11/08/18 Range/Units 06:18 06:18 RBC 3.76 L (4.30-5.90) m/uL MCV 104.8 H (80.0-100.0) fL RDW 16.0 H (11.5-15.5) % Lymphocytes # 0.9 L (1.0-4.8) k/uL Sodium 134 L (137-145) mmol/L Chloride 110 H (98-107) mmol/L Carbon Dioxide 17 L (22-30) mmol/L BUN 30 H (9-20) mg/dL Creatinine 1.57 H (0.66-1.25) mg/dL Microbiology - Last 24 Hours (Table) 11/06/18 18:22 Blood Culture - Preliminary Blood No Growth after 24 hours Assessment and Plan Assessment: Assessment and Plan Severe sepsis, possible underlying cellulitis of the left lower extremity Troponin elevation with history of stent placement, rule out acute coronary syndrome Left toe discoloration, history of Raynaud's, rule out thromboembolic given history of A. fib Hyponatremia likely related to dehydration Alcohol abuse with high risk of withdrawal Acute kidney injury on probable chronic kidney disease Nausea and vomiting likely related to gastritis Lactic acidosis Abnormal chest x-ray Suicidal ideation Protein calorie malnutrition COPD Patient meets criteria for sepsis. Heart rate greater than 90, now resolved. Leukocytosis on admission, now resolved. Hypotension responding to fluid bolus. Lactic acid of 2.1, now resolved. UA shows leukocyte esterase. Chest x-ray shows COPD and no signs of pneumonia. Blood culture negative at 24 hours. Opal ns: Start Rocephin for concerns of UTI/cellulitis. Normal saline at 75 mL per hour. Tylenol as needed for fever. Follow blood and urine cultures. Troponin 0.141, 0.166, 0.162 with EKG showing sinus rhythm with PVCs. Possibly demand ischemia from alcohol withdrawal for sepsis or leak from CKD. Plans: Cardiology evaluated patient, recommends discontinue heparin drip and no further workup. ACS ruled out. Given aspirin in the ED, continue 81 mg by mouth daily. Telemetry monitoring. Follow cardiology recommendations. Follow-up echocardiogram. Dopplerable pulses as per ED physician. History of Raynaud's. Plans: Would start calcium channel lula when BP normalizes. Follow arterial Doppler and CT angiogram. Per vascular surgery, continue heparin drip. Follow vascular surgery consultation. Sodium 125-129-134. Likely related to dehydration. Plans: IVF as above. Repeat BMP in the morning. Daily drinker. Last drink today? Plans: CIWA protocol. Ativan as needed for withdrawal symptoms. Multivitamin and thiamine. Creatinine 1.85-1.76-1.57. Patient reports history of kidney damage. Plans: IVF as above. Repeat BMP in the morning. Avoid nephrotoxins. Likely gastritis. Amylase and lipase within normal limits. Plans: Zofran as needed for nausea or vomiting. Continue Protonix IV daily. Lactic acid 2.1-1.2 Possibly related to sepsis or dehydration. Plans: Resolved Possible osteophyte seen on chest x-ray. Plans: We'll need CT chest in the outpatient setting to rule out lung cancer given history of smoking. Plans: One-to-one sitter. Suicidal precautions. Follow psychiatry recommendations. BMI 20.3. Cachectic. Possibly related to underlying malignancy and alcohol abuse? Plans: Dietitian consult. Stable. Plans: DuoNeb as needed for SOB or wheezing. [Cardiology evaluated for troponin elevation, recommends echocardiogram and no further workup. Vascular surgery consulted for possible thromboembolic disease to the left toes, workup underway, continue heparin drip. Psychiatry consultation pending.]
--- NOTE | 2018-11-08 13:32 | ECHOF ---
Referral Reason:Troponin elevation MEASUREMENTS -------- HEIGHT: 182.9 cm WEIGHT: 64.9 kg BP: 160/40 RVIDd: 3.4 cm (< 3.3) IVSd: 1.2 cm (0.6 - 1.1) LVIDd: 3.2 cm (3.9 - 5.3) LVPWd: 1.2 cm (0.6 - 1.1) IVSs: 1.4 cm LVIDs: 2.2 cm LVPWs: 1.5 cm LA Diam: 2.5 cm (2.7 - 3.8) Ao Diam: 4.7 cm (2.0 - 3.7) AV Cusp: 1.7 cm (1.5 - 2.6) MV EXCURSION: 26.551 mm (> 18.000) MV EF SLOPE: 123 mm/s (70 - 150) EPSS: 0.1 cm MV E Otoniel: 0.78 m/s MV DecT: 253 ms MV A Otoniel: 0.58 m/s MV E/A Ratio: 1.33 RAP: 5.00 mmHg RVSP: 23.43 mmHg FINDINGS -------- Sinus rhythm. This was a technically good study. The left ventricular size is normal. There is mild concentric left ventricular hypertrophy. Overa ll left ventricular systolic function is normal with, an EF between 55 - 60 %. The diastolic fillin g pattern is normal for the age of the patient 9.36. The right ventricle is normal in size. The left atrial size is normal. The right atrial size is normal. There is mild aortic valve sclerosis. There is no evidence of aortic regurgitation. Mild mitral annular calcification present. Mild mitral regurgitation is present. Mild tricuspid regurgitation present. There is no evidence of pulmonary hypertension. The right v entricular systolic pressure, as measured by Doppler, is 23.43mmHg. There is no pulmonic regurgitation present. The aortic root size is normal. There is no pericardial effusion. CONCLUSIONS -------- 1. Sinus rhythm. 2. This was a technically good study. 3. The left ventricular size is normal. 4. There is mild concentric left ventricular hypertrophy. 5. Overall left ventricular systolic function is normal with, an EF between 55 - 60 %. 6. The diastolic filling pattern is normal for the age of the patient 9.36 7. The right ventricle is normal in size. 8. The left atrial size is normal. 9. The right atrial size is normal. 10. There is mild aortic valve sclerosis. 11. Mild mitral annular calcification present. 12. Mild mitral regurgitation is present. 13. Mild tricuspid regurgitation present. 14. There is no evidence of pulmonary hypertension. 15. The right ventricular systolic pressure, as measured by Doppler, is 23.43mmHg. 16. There is no pulmonic regurgitation present. 17. The aortic root size is normal. 18. There is no pericardial effusion. [employer] SUPERVISOR: Kiarra Jeter RDCS
[2018-11-08] MEDS: HEPARIN SOD,PORK IN 0.45% NACL 25,000 UNIT in 0.45% NACL 1 250ML.BAG IV SCH (18:32)
--- NOTE | 2018-11-08 19:41 | PN ---
PROGRESS NOTE This is a 63-year-old gentleman who is admitted to hospital. Has known CAD status post stent, atrial fibrillation, bowel resection, alcohol abuse. Came to hospital with pain mostly in the foot with inability to walk and we were consulted because of mildly elevated troponins that we thought were from the renal insufficiency. He also had suicidal ideation. This morning, he appears comfortable at rest and denies any chest pain. EXAM: Rate is 83 beats per minute. Blood pressure is 85/47, respiratory rate 18. Chest exam reveals diminished air entry at the bases. Heart exam reveals first and second heart sounds. No gallop. Examination of the extremities shows that he has cyanosis of the left foot with diminished pulses and he has a history of atrial fibrillation. ASSESSMENT: 1. Elevated troponin secondary to renal insufficiency. 2. Vascular insufficiency, could be thromboembolic or due to underlying peripheral vascular disease. PLAN: Vascular surgery is on the case. The patient will continue IV heparin as per vascular surgery. No other cardiac workup at this time. We will follow the patient with you. Patient had normal LV function on echocardiogram in May, but we will repeat an echo on him. MMODL / IJN: [id number] /
[2018-11-08] MEDS ORDERED: SODIUM CHLORIDE 0.9% 1,000 ML IV ONE (23:43)
[2018-11-09] MEDS: SODIUM CHLORIDE 0.9% 1,000 ML IV SCH ×4 (03:15→23:14)
[2018-11-09 06:18] LABS: Basophils % (A) 0 %; Eosinophils # (A) 0.3 k/uL (0-0.7); Eosinophils % (A) 2 %; HGB 11.8 gm/dL (13.0-17.5); Lymphocytes % (A) 9 %; MCH 34.7 pg (25.0-35.0); MCHC 32.8 g/dL (31.0-37.0); MCV 105.7 fL (80.0-100.0); Macrocytosis Moderate; Mean Platelet Volume 7.6; Monocytes # (A) 0.8 k/uL (0-1.0); Monocytes % (A) 8 %; Neutrophils # (A) 8.5 k/uL (1.3-7.7); Neutrophils % (A) 80 %; Platelet Count 148 k/uL (150-450); RBC 3.41 m/uL (4.30-5.90); RDW 15.8 % (11.5-15.5); WBC 10.6 k/uL (3.8-10.6)
[2018-11-09 06:22] LABS: INR 1.1 (<1.2); Prothrombin Time 11.3 sec (9.0-12.0)
[2018-11-09 06:50] LABS: Partial Thromboplastin Time >200.0 sec (22.0-30.0)
[2018-11-09] MEDS: THIAMINE 100 MG TAB PO SCH ×2 (06:56→17:21)
[2018-11-09] MEDS: HEPARIN SOD,PORK IN 0.45% NACL 25,000 UNIT in 0.45% NACL 1 250ML.BAG IV SCH (07:00)
[2018-11-09] MEDS ORDERED: SODIUM CHLORIDE 0.9% 1,000 ML IV ONE (07:16)
[2018-11-09] MEDS: GABAPENTIN 100 MG CAP PO SCH ×2 (08:33→20:11)
[2018-11-09] MEDS: PANTOPRAZOLE 40 MG/10 ML VIAL IVP SCH (08:33)
[2018-11-09] MEDS: MULTIVITAMINS, THERA 1 EACH TAB PO SCH (08:33)
[2018-11-09] MEDS: DICYCLOMINE 10 MG CAP PO SCH ×3 (08:33→21:01)
[2018-11-09] MEDS: SODIUM BICARBONATE TAB 650 MG TAB PO SCH ×3 (08:33→21:01)
[2018-11-09] MEDS: ASPIRIN 81 MG PO SCH (08:33)
[2018-11-09] MEDS: oxyCODONE-APAP 5-325MG 1 EACH TAB PO PRN ×3 (08:41→20:11)
--- NOTE | 2018-11-09 09:18 | P.PN ---
Subjective Progress Note Date: 11/09/18 Principal diagnosis: Left 1st- 3rd toe pain Patient seen and examined. Complaining of left toe pain stating it is severe and he wants us to "just cut the toes off". He denies any fevers, chills, nausea, vomting, chest pain, or shortness of breath. Arterial doppler demonstrated good waveforms to the foot with poor readings at the toes consistent with small vessel disease. CTA of the abdomen with runoff ordered but not done due to renal function. Objective - Vital Signs Vital signs: Vital Signs Temp 98.3 F 11/09/18 04:00 Pulse 90 11/09/18 08:00 Resp 16 11/09/18 08:00 BP 79/52 11/09/18 08:00 Pulse Ox 96 11/09/18 08:00 Intake & Output 11/08/18 11/09/18 11/09/18 18:59 06:59 18:59 Intake Total 480 143.335 0.851 Output Total 500 500 Balance -20 -356.665 0.851 Weight 62.5 kg Intake: Intake, IV Titration 0 143.335 0.851 Amount Heparin Sod,Pork in 0.45% 0 143.335 0.851 NaCl 25,000 unit In 0.45 % NaCl 1 250ml.bag @ 12 UNITS/KG/HR 8.165 mls/hr IV .Q24H [facility] Rx#: [id number] Oral 480 Output: Urine 350 Stool 500 150 Other: Voiding Method Urinal - Exam alert and oriented, resting comfortably Palpable PT pulses. Feet warm, mild ischemic changes noted to the 1st, 2nd and 3rd toes. +TTP all three toes. No wounds. - Labs CBC & Chem 7: 11/09/18 05:57 11/08/18 06:18 Labs: Abnormal Lab Results - Last 24 Hours (Table) 11/09/18 11/09/18 11/09/18 Range/Units 01:12 05:57 05:57 RBC 3.41 L (4.30-5.90) m/uL Hgb 11.8 L (13.0-17.5) gm/dL Hct 36.0 L (39.0-53.0) % MCV 105.7 H (80.0-100.0) fL RDW 15.8 H (11.5-15.5) % Plt Count 148 L (150-450) k/uL Neutrophils # 8.5 H (1.3-7.7) k/uL APTT >200.0 H* >200.0 H* (22.0-30.0) sec Microbiology - Last 24 Hours (Table) 11/06/18 18:22 Blood Culture - Preliminary Blood No Growth after 48 hours Assessment and Plan Assessment: Cyanosis of left first, second and fourth toes, question blue toe syndrome Peripheral arterial disease Atrial fibrillation Hypertension coronary artery disease status post stents Alcohol abuse Tobacco abuse Severe protein calorie malnutrition, temporal wasting, cachexia Plan: Awaiting computed tomography scan of the abdomen and pelvis with runoffs. Continue pain control. Continue heparin drip at this time although currently no t therapeutic. Recommend calcium channel lula and neurontin after CT completed.
--- NOTE | 2018-11-09 10:34 | P.PN ---
Subjective Progress Note Date: 11/09/18 Principal diagnosis: L toe necrosis Patient was seen and examined. No acute events overnight. Reports from nursing stating hypotension. 1 L fluid bolus given, repeat BP slightly improved to a SBP in the 80s. Patient with no changes in his complaints. Continues to complain of left toe pain, 10 out of 10 in severity. He denies any chest pain, shortness of breath or palpitations. Continues to endorse suicidal ideations. Objective - Vital Signs Vital signs: Vital Signs Temp 98.3 F 11/09/18 04:00 Pulse 90 11/09/18 08:00 Resp 16 11/09/18 08:00 BP 80/48 11/09/18 09:40 Pulse Ox 96 11/09/18 08:00 Intake & Output 11/08/18 11/09/18 11/09/18 18:59 06:59 18:59 Intake Total 480 143.335 240.851 Output Total 500 500 400 Balance -20 -356.665 -159.149 Weight 62.5 kg Intake: Intake, IV Titration 0 143.335 0.851 Amount Heparin Sod,Pork in 0.45% 0 143.335 0.851 NaCl 25,000 unit In 0.45 % NaCl 1 250ml.bag @ 12 UNITS/KG/HR 8.165 mls/hr IV .Q24H [facility] Rx#: [id number] Oral 480 240 Output: Urine 350 Stool 500 150 400 Other: Voiding Method Urinal - Exam General: [non toxic], [mild distress], [appears at stated age], [cachectic] Derm: [warm], [dry] Head: [atraumatic], [normocephalic], [symmetric] Eyes: [EOMI], [no lid lag], [anicteric sclera] Mouth: [no lip lesion], [mucus membranes moist] Cardiovascular: [S1S2 reg], [no murmur], [DP dopplerable as per ED physician bilaterally] Lungs: [Decreased breath sounds bilateral], [no rhonchi, no rales] , [no accessory muscle use] Ext: [no gross muscle atrophy], [no edema], [no contractures], [purple discoloration of the second and third toe, cold extremities] Neuro: [no focal neuro deficits] Psych: [Alert], [oriented], [appropriate affect] - Labs CBC & Chem 7: 11/09/18 05:57 11/08/18 06:18 Labs: Abnormal Lab Results - Last 24 Hours (Table) 11/09/18 11/09/18 11/09/18 Range/Units 01:12 05:57 05:57 RBC 3.41 L (4.30-5.90) m/uL Hgb 11.8 L (13.0-17.5) gm/dL Hct 36.0 L (39.0-53.0) % MCV 105.7 H (80.0-100.0) fL RDW 15.8 H (11.5-15.5) % Plt Count 148 L (150-450) k/uL Neutrophils # 8.5 H (1.3-7.7) k/uL APTT >200.0 H* >200.0 H* (22.0-30.0) sec Microbiology - Last 24 Hours (Table) 11/06/18 18:22 Blood Culture - Preliminary Blood No Growth after 48 hours Assessment and Plan Assessment: Assessment and Plan Hypotension Severe sepsis, possible underlying cellulitis of the left lower extremity Troponin elevation with history of stent placement, rule out acute coronary syndrome Left toe discoloration, history of Raynaud's, rule out thromboembolic given history of A. fib Hyponatremia likely related to dehydration Alcohol abuse with high risk of withdrawal Acute kidney injury on probable chronic kidney disease Nausea and vomiting likely related to gastritis Lactic acidosis Abnormal chest x-ray Suicidal ideation Protein calorie malnutrition COPD SBP 74/36 while on normal saline 150 mL per hour. Bolus 1 L, repeat BP 80/48. Plans: Continue normal saline at 150 mL per hour. Repeat lactic acid. Telemetry monitoring. Patient meets criteria for sepsis. Heart rate greater than 90, now resolved. Leukocytosis on admission, now resolved. Hypotension responding to fluid bolus. Lactic acid of 2.1 on admission, now resolved. UA shows leukocyte esterase. Chest x-ray shows COPD and no signs of pneumonia. Blood culture negative at 48 hours. Plans: Continue Rocephin for concerns of UTI/cellulitis. Normal saline at 150 mL per hour. Tylenol as needed for fever. Follow blood and urine cultures. Troponin 0.141, 0.166, 0.162 with EKG showing sinus rhythm with PVCs. Possibly demand ischemia from alcohol withdrawal for sepsis or leak from CKD. Echocardiogram shows EF 55-60% with mild concentric LVH. Plans: Cardiology evaluated patient, recommends discontinue heparin drip and no further workup. ACS ruled out. Given aspirin in the ED, continue 81 mg by mouth daily. Telemetry monitoring. Follow cardiology recommendations. Dopplerable pulses as per ED physician. History of Raynaud's. Plans: Would start calcium channel lula when BP normalizes. Follow arterial Doppler and CT angiogram. Per vascular surgery, continue heparin drip. Follow vascular surgery consultation. Sodium 125-129-134. Likely related to dehydration. Plans: IVF as above. Repeat BMP in the morning. Daily drinker. Last drink today? Plans: CIWA protocol. Ativan as needed for withdrawal symptoms. Multivitamin and thiamine. EF Patient reports history of kidney damage. Plans: IVF as above. Repeat BMP in the morning. Avoid nephrotoxins. Follow urine electrolytes and kidney ultrasound, nephrology consultation. Likely gastritis. Amylase and lipase within normal limits. Plans: Zofran as needed for nausea or vomiting. Continue Protonix IV daily. Lactic acid 2.1-1.2 Possibly related to sepsis or dehydration. Plans: Plans to repeat lactic acid given hypotension. Possible osteophyte seen on chest x-ray. Plans: We'll need CT chest in the outpatient setting to rule out lung cancer given history of smoking. Plans: One-to-one sitter. Suicidal precautions. Follow psychiatry recommendations. BMI 18.7. Cachectic. Possibly related to underlying malignancy and alcohol abuse? Plans: Dietitian consult. Stable. Plans: DuoNeb as needed for SOB or wheezing. [Cardiology evaluated for troponin elevation, no further workup. Vascular surgery consulted for possible thromboembolic disease to the left toes, workup underway, continue heparin drip. Psychiatry consultation pending.]
--- NOTE | 2018-11-09 11:28 | CDI ---
Documentation Clarification Form Date: 11/09/2018 11:15:57 AM From: Jyoti Nicholas RN, CCDS Admit Date: 11/06/2018 3:56:00 PM Patient Name: Omar Joaquin Visit Number: [id number] ATTENTION: The Clinical Documentation Specialists (CDI) and [facility] Coding Staff appreciate your assistance in clarifying documentation. Please respond to the clarification below the line at the bottom and electronically sign. The CDI & [facility] Coding staff will review the response and follow-up if needed. Please note: Queries are made part of the Legal Health Record. If you have any questions, please contact the author of this message via ITS. Dr. Sanam Ravi Patient was admitted with Severe Sepsis second to left lower extremity cellulitis. You have documented CKD several times in your progress notes and further clarification is needed. History/Risk Factors: HUGH, Hyponatremia, ETOH abuse, PCM Clinical Indicators: Baseline BUN/CR/GFR: 13/.97/ 83 Patients Current BUN: 48/41/30 CR: 1.85/1.76/1.57 GFR: 37/40/46 Treatment: IVF: ivf @ 100, Ivf Bolus In order to capture the severity of condition, please clarify if the condition signifies: CKD Stage 1 (GFR > 90) CKD Stage 2 (GFR 60-89) CKD Stage 3 (GFR 30-59) CKD Stage 4 (GFR 15-29) CKD Stage 5 (GFR <15) ESRD Other, please specify Unable to determine (Last Revision: June 2017) documented probable CKD, patient does not have CKD (ruled out), patient has acute kidney injury MTDD
--- NOTE | 2018-11-09 11:49 | P.NPCON ---
History of Present Illness - Reason for Consult acute renal failure - History of Present Illness Reason for consultation: Acute kidney injury History of present illness: Patient is a 63-year-old male seen in renal consultation for acute kidney injury. Creatinine was 1.85 on admission and is down to 1.13 today. Baseline creatinine is near 1. Patient presented to the hospital with pain in his feet. He does have history of renal syndrome. There is concern for peripheral arterial disease and he is scheduled for CAT scan with IV contrast today. He is also receiving IV fluids. Patient's blood pressure last night was in the systolic 70s to 80s and he did receive 2 L normal saline bolus. He admits to good urine output. No hematuria or dysuria. No vomiting or diarrhea now. Patient is not a very reliable historian however. Oral intake is fair. Denies regular use of nonsteroidals. He is afebrile. Denies history of diabetes. He does have history of alcohol abuse and is currently maintained on CIWA protocol. Vital signs are stable. General: The patient appeared well nourished and normally developed. HEENT: Head exam is unremarkable. Neck is without jugular venous distension. LUNGS: Lungs are clear to auscultation and percussion. Breath sounds decreased. HEART: Rate and Rhythm are regular. First and second heart sounds normal. No murmurs, rubs or gallops. ABDOMEN: Abdominal exam reveals normal bowel sounds. Non-tender and non- distended. No evidence of peritonitis. EXTREMITITES: No clubbing, cyanosis, or edema. Discoloration of the feet noted. Past Medical History Past Medical History: Atrial Fibrillation, COPD, Hypertension Additional Past Medical History / Comment(s): Pt states he recently had PCI with stents about at [facility], generalized chronic pain, past multiple fractures including cervical fracture, severe diverticulitis with bowel resection/ileostomy and had bladder injury during surgery which required surgery then devloped an abdominal abscess which also required surgery, recent acute renal failure possibly d/t dehydration, bilateral Raynauld's syndrome-states fingers are always painful and numb/discoloration. 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 Past Anesthesia/Blood Transfusion Reactions: No Reported Reaction Date of Last Stent Placement:: 12/06/17 Past Psychological History: Depression Smoking Status: Current every day smoker Past Alcohol Use History: Daily Past Drug Use History: Prescription Drug Abuse - Past Family History Father Family Medical History: Myocardial Infarction ([place]) Additional Family Medical History / Comment(s): Father had 3 MIs, he had his first one at the age of 50 yrs. He at the age of 85 yrs. Mother Family Medical History: No Reported History Additional Family Medical History / Comment(s): Mother was healthy and lived to be 94 or 95 yrs old. Medications and Allergies Home Medications Medication Instructions Recorded Confirmed Type No Known Home Medications 11/09/18 11/09/18 History Allergies Allergy/AdvReac Type Severity Reaction Status Date / Time No Known Allergies Allergy Verified 11/06/18 14:49 Physical Exam Vitals: Vital Signs Temp Pulse Resp BP Pulse Ox 11/09/18 09:40 80/48 11/09/18 08:00 90 16 79/52 96 11/09/18 06:40 84 74/36 11/09/18 04:00 98.3 F 79 15 78/46 97 11/09/18 01:05 87 74/39 11/08/18 23:40 98 F 85 17 71/37 97 11/08/18 23:30 72/38 11/08/18 20:00 98.2 F 88 18 83/52 98 11/08/18 16:00 80 18 71/43 98 11/08/18 12:30 80 17 81/42 98 Intake and Output 11/08/18 11/09/18 11/09/18 22:59 06:59 14:59 Intake Total 15.876 127.459 240.851 Output Total 350 350 400 Balance -334.124 -222.541 -159.149 Intake: Intake, IV Titration 15.876 127.459 0.851 Amount Heparin Sod,Pork in 0.45% 15.876 127.459 0.851 NaCl 25,000 unit In 0.45 % NaCl 1 250ml.bag @ 12 UNITS/KG/HR 8.165 mls/hr IV .Q24H [facility] Rx#: [id number] Oral 240 Output: Urine 350 Stool 350 400 Other: Voiding Method Urinal Urinal Weight 62.5 kg Results - Lab Results Most recent lab results Calcium 8.6 mg/dL (8.4-10.2) 11/08/18 06:18 Magnesium 1.9 mg/dL (1.6-2.3) 11/07/18 07:32 11/09/18 05:57 11/09/18 11:03 Assessment and Plan Plan: Assessment: 1. Acute kidney injury mostly prerenal improving with IV hydration. Creatinine was 1.85 on admission and is down to 1.13 today. Baseline creatinine near 1. Trace proteinuria noted on UA. 2. Hypotension due to intravascular volume depletion. Rule out adrenal insufficiency. 3. Metabolic acidosis secondary to acute kidney injury and IV fluids. 4. Peripheral arterial disease. Concern for blue toe syndrome. Vascular surgery following. 5. Alcohol abuse. 6. History of A. fib. Plan: I will decrease rate of normal saline to 125 mL an hour. Add midodrine 5 mg 3 times daily. To be held if systolic blood pressure greater than 110. Check morning cortisol level. Increase dose of oral sodium bicarbonate. Encouraged oral intake. Avoid nephrotoxins. Cleared for CAT scan with IV contrast. I did discuss with the patient the risk of developing worsening renal failure after exposure to IV contrast. He understands. Thank you for the consultation. I will continue to follow the patient with you during his hospital stay.
[2018-11-09] MEDS: NICOTINE 21MG/24HR PATCH TRANSDERM SCH (12:01)
[2018-11-09] MEDS: MIDODRINE 5 MG TAB PO SCH ×2 (12:01→17:21)
[2018-11-09] MEDS: MORPHINE SULFATE 2 MG/ML SYRINGE IV PRN ×3 (12:05→23:09)
--- NOTE | 2018-11-09 13:46 | US ---
EXAMINATION TYPE: US kidneys/renal and bladder DATE OF EXAM: 11/09/2018 COMPARISON: NONE CLINICAL HISTORY: Elevated creatinine. EXAM MEASUREMENTS: Right Kidney: 10.1 x 3.6 x 4.7 cm Left Kidney: 9.3 x 4.8 x 4.7 cm Right Kidney: No hydronephrosis or masses seen Left Kidney: Superior pole obscured by bowel gas, no hydronephrosis or masses seen Bladder: dependant debris Bilateral Jets seen: No No hydronephrosis or nephrolithiasis as visualized IMPRESSION: 1. There is no hydronephrosis or nephrolithiasis. There is dependent echogenicity within the posterio r margin of the bladder could represent debris within the bladder is favored over mass or callosal le krystina. Correlate with urinalysis for hematuria or infectious etiology.
[2018-11-09 13:54] LABS: Calcium 7.5 mg/dL (8.4-10.2); Potassium 3.8 mmol/L (3.5-5.1); Total Bilirubin 0.3 mg/dL (0.2-1.3); Total Protein 4.1 g/dL (6.3-8.2)
--- NOTE | 2018-11-09 17:10 | CT ---
EXAMINATION TYPE: CT angio abd aorta w/Runoff DATE OF EXAM: 11/09/2018 COMPARISON: 07/22/2018 abdomen pelvis HISTORY: 63-year-old male chronic lower ext pain/cyanosis distal extremities TECHNIQUE: Contiguous axial scanning of the abdomen and pelvis followed by bilateral lower sternum an d a runoff performed with IV Contrast, patient injected with 125 mL of Isovue 370. Coronal/sagittal M IP reconstructions performed. 3-D reconstructions generated on a dedicated independent workstation. CT DLP: 723 mGycm Automated exposure control for dose reduction was used. FINDINGS: Heart normal size with small anterior pericardial effusion measuring 9 mm. Moderate bilateral pleural effusions with underlying emphysematous change and interstitial changes. A djacent patchy atelectasis at the lung bases. Stable 9 mm cyst central inferior right liver. Kidneys, spleen, and atrophic pancreas show no gross a bnormality. No dilated small bowel, free fluid, or free air. No mesenteric or retroperitoneal lymphadenopathy. Generalized anasarca change with moderate pelvic ascites. Scattered mild colonic stool with left lower quadrant ostomy. Mild circumferential bladder wall thickening. Prostate gland measures approximately 4.3 cm wide. Limi harris visualization of the pelvis due to metal artifact from the patient's left hip hemiarthroplasty. Osteopenia within the bilateral lower extremities. Bones: Degenerative changes at the right hip. Osteopenia. Left L5 hemisacralization. Bilateral L5 par s defects with grade 1 anterolisthesis at L5-S1. Anterior bridging endplate spondylosis lower thoraci c spine and thoracolumbar junction. Vasculature: Moderate atherosclerotic change within the infrarenal abdominal aorta measuring up to 2.3 cm wide. Moderate focal noncalcified plaque narrowing the origin of the SMA. Bhagat bilateral renal arterie s. Right lower extremity: Moderate atherosclerotic calcification with segmental moderate narrowing right external iliac artery. Scattered mild atherosclerotic calcifications within the right COLOR ADVISER. Scattered mild atherosclerotic change within the right SFA. Moderate atherosclerotic calcifications and segmental narrowing in the popliteal artery. The anterior tibial artery origin is patent but soon thereafter, severe atelectatic calcifications re sulting vessel occlusion. Moderate to severe atherosclerotic change at the bifurcation of the tibial peroneal trunk with scatte red moderate to severe atherosclerotic calcifications in the proximal posterior tibial and peroneal a rteries. The peroneal artery becomes diminutive at the mid leg level but there is two-vessel runoff into the f oot. Left lower extremity: Moderate segmental atherosclerotic narrowing left external iliac artery. Moderate atherosclerotic narrowing at the bifurcation of the left COLOR ADVISER. SFA shows scattered multiple moderate atherosclerotic calcifications. Upper popliteal artery has focal moderate atherosclerotic narrowing from noncalcified plaque. Moderate to severe atherosclerotic narrowing at the origin of the anterior tibial artery. Soon therea fter, dense atherosclerotic calcification results in vessel occlusion. Fairly severe atherosclerotic calcification origin of the peroneal artery. The peroneal artery shows intermittent enhancement and is extremely diminutive. There is two-vessel runoff into the foot though the peroneal artery is extremely diminutive. IMPRESSION: 1. MODERATE ATHEROSCLEROTIC CALCIFICATIONS THROUGHOUT OUTLINED ABOVE. SOME AREAS OF MORE SEVERE AT HEROSCLEROTIC CHANGE. 2. ON THE RIGHT, THE ANTERIOR TIBIAL ARTERY OCCLUDES IN THE UPPER LEG AND THERE IS TWO-VESSEL RUNOFF INTO THE FOOT THOUGH THE PERONEAL ARTERY BECOMES DIMINUTIVE AT THE MID LEG LEVEL. 3. ON THE LEFT, THE ANTERIOR TIBIAL ARTERY OCCLUDES IN THE UPPER LEG. THE PERONEAL ARTERY HAS A SEVER E STENOSIS AT ITS ORIGIN BUT SHOWS FAINT RECONSTITUTION AND THERE IS TWO-VESSEL RUNOFF INTO THE FOOT THOUGH THE PERONEAL ARTERY IS EXTREMELY DIMINUTIVE. 4. SEGMENTAL MODERATE ATHEROSCLEROTIC NARROWING WITHIN THE BILATERAL EXTERNAL ILIAC ARTERIES. 5. DIFFUSE ANASARCA-TYPE CHANGE, MODERATE BILATERAL PLEURAL EFFUSIONS, AND MILD TO MODERATE PELVIC FR EE FLUID. CORRELATE FOR FLUID OVERLOAD STATE. 6. GIVEN INTERSTITIAL CHANGES IN THE LOWER LUNGS, CORRELATE FOR CONCURRENT INTERSTITIAL PULMONARY QUAN MA.
[2018-11-09] MEDS: ATORVASTATIN 40 MG TAB PO SCH (20:11)
--- NOTE | 2018-11-09 22:36 | PN ---
PROGRESS NOTE This patient is admitted with significant pain in the feet. The patient has evidence of peripheral vascular disease. He had a CT angiogram done. The patient continues to have pain. Denies any chest pain or shortness of breath. Blood pressure is 91/50 mmHg. First and second heart sounds are heard. Lungs are clinically clear to auscultation and percussion. The patient is current getting IV heparin drip for management as per vascular surgery. MMODL / IJN: [id number] /
[2018-11-10] MEDS: oxyCODONE-APAP 5-325MG 1 EACH TAB PO PRN ×4 (00:38→15:56)
[2018-11-10] MEDS: HEPARIN SOD,PORK IN 0.45% NACL 25,000 UNIT in 0.45% NACL 1 250ML.BAG IV SCH (02:34)
[2018-11-10] MEDS ORDERED: FUROSEMIDE 10 MG/ML 2 ML VIAL IV STA (04:15)
[2018-11-10] MEDS: IPRATROPIUM-ALBUTEROL 3 ML NEB INHALATION PRN (04:40)
--- NOTE | 2018-11-10 05:49 | XR ---
EXAM: XR Chest, 1 View CLINICAL HISTORY: ITS.REASON XR Reason: fluid overload TECHNIQUE: Frontal view of the chest. COMPARISON: 11/06/2018. FINDINGS: Lungs: New extensive reticular and patchy opacities throughout the right lung as well as less severely within the left lower lung. The lungs are mildly hyperinflated. Pleural space: Unremarkable. No pneumothorax. Heart: Unremarkable. No cardiomegaly. Mediastinum: Unremarkable. Bones/joints: Unremarkable. IMPRESSION: New extensive reticular and patchy opacities throughout the right lung as well as less severely within the left lower lung. These sinus may represent edema or an underlying infectious or inflammatory process.
[2018-11-10] MEDS: THIAMINE 100 MG TAB PO SCH ×2 (06:41→15:56)
[2018-11-10] MEDS: MIDODRINE 5 MG TAB PO SCH ×3 (06:41→15:55)
--- NOTE | 2018-11-10 08:23 | CDI ---
Documentation Clarification Form Date: 11/10/2018 8:09:50 AM From: Jyoti Nicholas RN, CCDS Admit Date: 11/06/2018 3:56:00 PM Patient Name: Omar Joaquin Visit Number: [id number] ATTENTION: The Clinical Documentation Specialists (CDI) and [facility] Coding Staff appreciate your assistance in clarifying documentation. Please respond to the clarification below the line at the bottom and electronically sign. The CDI & [facility] Coding staff will review the response and follow-up if needed. Please note: Queries are made part of the Legal Health Record. If you have any questions, please contact the author of this message via ITS. Dr. Berto Fitzgerald Atrial Fibrillation is documented in the H&P, Consults, and Progress notes and requires further specificity. History/Risk Factors: Atrial Fib, COPD, HTN, diverticulitis Clinical Indicators: 11/08 Cardiology Progress note: "Has known CAD status post stent, atrial fibrillation,..." EKG/telemetry: SR with PVC's Treatment: Consults: Cardiology ASA 324 mg PO QD, IV Heparin Midodrine 5 mg PO TID In your professional opinion, can you please clarify the type of Atrial Fibrillation, if known? Chronic/Permanent Paroxysmal Other, please specify Unable to determine (Last Revision: June 2017) MTDD
[2018-11-10] MEDS: PANTOPRAZOLE 40 MG/10 ML VIAL IVP SCH (08:53)
[2018-11-10] MEDS: DICYCLOMINE 10 MG CAP PO SCH ×3 (08:54→21:36)
[2018-11-10] MEDS: SODIUM BICARBONATE TAB 650 MG TAB PO SCH ×2 (08:54→21:37)
[2018-11-10] MEDS: ASPIRIN 81 MG PO SCH (08:54)
[2018-11-10] MEDS: MULTIVITAMINS, THERA 1 EACH TAB PO SCH (08:54)
[2018-11-10] MEDS: GABAPENTIN 100 MG CAP PO SCH (08:54)
[2018-11-10] MEDS: MORPHINE SULFATE 2 MG/ML SYRINGE IV PRN ×2 (08:54→12:40)
[2018-11-10] MEDS: NICOTINE 21MG/24HR PATCH TRANSDERM SCH (08:55)
--- NOTE | 2018-11-10 09:38 | P.PN ---
Subjective Progress Note Date: 11/10/18 Pt s/e. Complaints unchanged. Has not been out of bed since admission NAD, resting irregularly irreg no respiratory distress abd soft, ostomy patent ext warm, dry. No worsening of toe discoloration. CT scan reviewed. Some diffuse atherosclerosis. AT occlusion B. No e/o source for possible embolic disease. Pain in toes Renayuds Tobacco abuse At this time, given all imaging, adaquate waveforms, small vessel disease, would recommend conservative treatment. Calcium Channel lula for renayds if he can tolerate. Increase Neurontin to 300mg TID. Add pletal. Increase activity. Plan for outpatinet follow up. No vascular intervention planned at this time. Objective - Vital Signs Vital signs: Vital Signs Temp 97.6 F 11/10/18 09:15 Pulse 104 H 11/10/18 09:15 Resp 20 11/10/18 09:15 BP 77/52 11/10/18 09:15 Pulse Ox 98 11/10/18 09:15 Intake & Output 11/09/18 11/10/18 11/10/18 18:59 06:59 18:59 Intake Total 183.639 7930.393 480 Output Total 600 750 750 Balance 086.596 4933.393 -270 Weight 67.5 kg Intake: Intake, IV Titration 973.199 5088.393 Amount Heparin Sod,Pork in 0.45% 110.916 87.393 NaCl 25,000 unit In 0.45 % NaCl 1 250ml.bag @ 12 UNITS/KG/HR 8.165 mls/hr IV .Q24H [facility] Rx#: [id number] Sodium Chloride 0.9% 1, 2750 000 ml @ 125 mls/hr IV . Q8H [facility] Rx#:[id number] Oral 660 800 480 Output: Urine 750 750 Stool 600 Other: Voiding Method Urinal Urinal # Voids 1 - Labs CBC & Chem 7: 11/09/18 05:57 11/09/18 11:03 Labs: Abnormal Lab Results - Last 24 Hours (Table) 11/09/18 11/09/18 11/09/18 Range/Units 11:03 14:14 23:28 APTT >200.0 H* 148.7 H* (22.0-30.0) sec Sodium 134 L (137-145) mmol/L Chloride 115 H (98-107) mmol/L Carbon Dioxide 13 L (22-30) mmol/L Calcium 7.5 L (8.4-10.2) mg/dL ALT 14 L (21-72) U/L Total Protein 4.1 L (6.3-8.2) g/dL Albumin 2.0 L (3.5-5.0) g/dL 11/10/18 Range/Units 01:33 APTT 102.5 H* (22.0-30.0) sec Sodium (137-145) mmol/L Chloride (98-107) mmol/L Carbon Dioxide (22-30) mmol/L Calcium (8.4-10.2) mg/dL ALT (21-72) U/L Total Protein (6.3-8.2) g/dL Albumin (3.5-5.0) g/dL Microbiology - Last 24 Hours (Table) 11/06/18 18:22 Blood Culture - Preliminary Blood No Growth after 72 hours
[2018-11-10 10:07] LABS: Basophils # (A) 0.1 k/uL (0-0.2); Basophils % (A) 1 %; Eosinophils # (A) 0.4 k/uL (0-0.7); Eosinophils % (A) 4 %; HCT 34.3 % (39.0-53.0); Lymphocytes # (A) 0.8 k/uL (1.0-4.8); Lymphocytes % (A) 7 %; MCHC 32.1 g/dL (31.0-37.0); MCV 105.6 fL (80.0-100.0); Macrocytosis Moderate; Mean Platelet Volume 7.3; Monocytes # (A) 0.9 k/uL (0-1.0); Monocytes % (A) 8 %; Neutrophils # (A) 8.6 k/uL (1.3-7.7); Neutrophils % (A) 80 %; Platelet Count 156 k/uL (150-450); RBC 3.25 m/uL (4.30-5.90); RDW 15.5 % (11.5-15.5); WBC 10.9 k/uL (3.8-10.6)
[2018-11-10 10:24] LABS: Calcium 7.6 mg/dL (8.4-10.2); Magnesium 1.1 mg/dL (1.6-2.3); Potassium 3.3 mmol/L (3.5-5.1)
--- NOTE | 2018-11-10 10:46 | P.PN ---
Progress Note - Text Progress Note Date: 11/10/18 This is an addendum to the cardiology progress note dictated. Patient has paroxysmal atrial fibrillation. DNP note has been reviewed, I agree with a documented findings and plan of care. Patient was seen and examined.
[2018-11-10] MEDS ORDERED: POTASSIUM CHLORIDE ER 20 MEQ TAB.ER PO STA (11:11)
--- NOTE | 2018-11-10 11:17 | P.PN ---
Subjective Patient is seen in follow for acute kidney injury. Renal function is improving. Continues to have pain in his lower extremities. Oral intake is fair. No vomiting. No chest pain. Patient did become hypotensive last night and received 500 mL bolus of normal saline. He subsequently presented with fluid overload and received a dose of IV Lasix. IV fluids have been discontinued since. Vital signs are stable. General: The patient appeared well nourished and normally developed. HEENT: Head exam is unremarkable. Neck is without jugular venous distension. LUNGS: Breath sounds decreased. HEART: Rate and Rhythm are regular. First and second heart sounds normal. No murmurs, rubs or gallops. ABDOMEN: Abdominal exam reveals normal bowel sounds. Non-tender and non- distended. No evidence of peritonitis. EXTREMITITES: No clubbing, cyanosis, or edema. Objective - Vital Signs Vital signs: Vital Signs Temp 97.6 F 11/10/18 09:15 Pulse 104 H 11/10/18 09:15 Resp 20 11/10/18 09:15 BP 77/52 11/10/18 09:15 Pulse Ox 98 11/10/18 09:15 Intake & Output 11/09/18 11/10/18 11/10/18 18:59 06:59 18:59 Intake Total 896.837 9388.393 480 Output Total 600 750 750 Balance 137.732 7531.393 -270 Weight 67.5 kg Intake: Intake, IV Titration 362.335 6091.393 Amount Heparin Sod,Pork in 0.45% 110.916 87.393 NaCl 25,000 unit In 0.45 % NaCl 1 250ml.bag @ 12 UNITS/KG/HR 8.165 mls/hr IV .Q24H [facility] Rx#: [id number] Sodium Chloride 0.9% 1, 2750 000 ml @ 125 mls/hr IV . Q8H [facility] Rx#:[id number] Oral 660 800 480 Output: Urine 750 750 Stool 600 Other: Voiding Method Urinal Urinal # Voids 1 - Labs CBC & Chem 7: 11/10/18 09:07 11/10/18 09:07 Labs: Abnormal Lab Results - Last 24 Hours (Table) 11/09/18 11/09/18 11/09/18 Range/Units 11:03 14:14 23:28 WBC (3.8-10.6) k/uL RBC (4.30-5.90) m/uL Hgb (13.0-17.5) gm/dL Hct (39.0-53.0) % MCV (80.0-100.0) fL Neutrophils # (1.3-7.7) k/uL Lymphocytes # (1.0-4.8) k/uL APTT >200.0 H* 148.7 H* (22.0-30.0) sec Sodium 134 L (137-145) mmol/L Potassium (3.5-5.1) mmol/L Chloride 115 H (98-107) mmol/L Carbon Dioxide 13 L (22-30) mmol/L Glucose (74-99) mg/dL Calcium 7.5 L (8.4-10.2) mg/dL Magnesium (1.6-2.3) mg/dL ALT 14 L (21-72) U/L Total Protein 4.1 L (6.3-8.2) g/dL Albumin 2.0 L (3.5-5.0) g/dL 11/10/18 11/10/18 11/10/18 Range/Units 01:33 09:07 09:07 WBC 10.9 H (3.8-10.6) k/uL RBC 3.25 L (4.30-5.90) m/uL Hgb 11.0 L (13.0-17.5) gm/dL Hct 34.3 L (39.0-53.0) % MCV 105.6 H (80.0-100.0) fL Neutrophils # 8.6 H (1.3-7.7) k/uL Lymphocytes # 0.8 L (1.0-4.8) k/uL APTT 102.5 H* (22.0-30.0) sec Sodium 134 L (137-145) mmol/L Potassium 3.3 L (3.5-5.1) mmol/L Chloride 111 H (98-107) mmol/L Carbon Dioxide 17 L (22-30) mmol/L Glucose 100 H (74-99) mg/dL Calcium 7.6 L (8.4-10.2) mg/dL Magnesium 1.1 L (1.6-2.3) mg/dL ALT (21-72) U/L Total Protein (6.3-8.2) g/dL Albumin (3.5-5.0) g/dL 11/10/18 Range/Units 09:07 WBC (3.8-10.6) k/uL RBC (4.30-5.90) m/uL Hgb (13.0-17.5) gm/dL Hct (39.0-53.0) % MCV (80.0-100.0) fL Neutrophils # (1.3-7.7) k/uL Lymphocytes # (1.0-4.8) k/uL APTT 124.7 H* (22.0-30.0) sec Sodium (137-145) mmol/L Potassium (3.5-5.1) mmol/L Chloride (98-107) mmol/L Carbon Dioxide (22-30) mmol/L Glucose (74-99) mg/dL Calcium (8.4-10.2) mg/dL Magnesium (1.6-2.3) mg/dL ALT (21-72) U/L Total Protein (6.3-8.2) g/dL Albumin (3.5-5.0) g/dL Microbiology - Last 24 Hours (Table) 11/06/18 18:22 Blood Culture - Preliminary Blood No Growth after 72 hours Assessment and Plan Plan: Assessment: 1. Acute kidney injury mostly prerenal improved with IV hydration. Creatinine was 1.85 on admission and is stable at 1.16 today. Baseline creatinine near 1. Trace proteinuria noted on UA. 2. Hypotension due to intravascular volume depletion. Rule out adrenal insufficiency. 3. Metabolic acidosis secondary to acute kidney injury and IV fluids. 4. Peripheral arterial disease. Status post CT and November 3. Vascular surgery following. No interventions planned at this time. 5. Alcohol abuse. 6. History of A. fib. 7. Hypomagnesemia from poor oral intake. 8. Hypokalemia from poor oral intake and hypomagnesemia. 9. Volume overload. Plan: Remains off IV fluids. Increase midodrine to 10 mg 3 times daily. To be held if systolic blood pressure greater than 110. Check morning cortisol level. Increase dose of oral sodium bicarbonate. Replace potassium. 40 mEq today. Replace magnesium. 4 g IV today. Encouraged oral intake. Avoid nephrotoxins. Continue to monitor renal function and urine output. If remains persistently hypotensive despite increased dose of midodrine, will add Florinef.
[2018-11-10] MEDS: APIXABAN 5 MG TAB PO SCH ×2 (11:40→22:10)
[2018-11-10] MEDS: MAGNESIUM SULFATE-D5W PMX 1 GM in DEXTROSE/WATER 1 100ML.BAG IVPB SCH ×4 (11:41→14:19)
--- NOTE | 2018-11-10 12:18 | P.PN ---
Subjective Progress Note Date: 11/10/18 Principal diagnosis: Left foot pain Patient was seen and examined. No acute events overnight. A team called overnight for drop in O2 saturation into the 80s. Patient was previously bolus 500 mL for hypertension prior to that episode. He was given 20 mg of Lasix IV and chest x-ray was ordered which showed findings of pulmonary edema. Patient reports that he is normally short of breath and it has not changed from his baseline. He denies any chest pain or palpitations. No nausea or vomiting. No fever or chills. Continues to endorse suicidal ideation but mostly due to his left lower extremity pain. Objective - Vital Signs Vital signs: Vital Signs Temp 97.6 F 11/10/18 09:15 Pulse 104 H 11/10/18 11:09 Resp 20 11/10/18 11:09 BP 77/52 11/10/18 09:15 Pulse Ox 98 11/10/18 09:15 Intake & Output 11/09/18 11/10/18 11/10/18 18:59 06:59 18:59 Intake Total 926.510 5308.393 561.497 Output Total 600 750 750 Balance 936.420 0096.393 -188.503 Weight 67.5 kg Intake: Intake, IV Titration 498.634 4355.393 81.497 Amount Heparin Sod,Pork in 0.45% 110.916 87.393 81.497 NaCl 25,000 unit In 0.45 % NaCl 1 250ml.bag @ 12 UNITS/KG/HR 8.165 mls/hr IV .Q24H [facility] Rx#: [id number] Sodium Chloride 0.9% 1, 2750 000 ml @ 125 mls/hr IV . Q8H [facility] Rx#:[id number] Oral 660 800 480 Output: Urine 750 750 Stool 600 Other: Voiding Method Urinal Urinal # Voids 1 - Exam General: [non toxic], [mild distress], [appears at stated age], [cachectic] Derm: [warm], [dry] Head: [atraumatic], [normocephalic], [symmetric] Eyes: [EOMI], [no lid lag], [anicteric sclera] Mouth: [no lip lesion], [mucus membranes moist] Cardiovascular: [S1S2 reg], [no murmur], [DP dopplerable as per ED physician bilaterally] Lungs: [Decreased breath sounds bilateral], [crackles at the bases] , [no accessory muscle use] Ext: [no gross muscle atrophy], [no edema], [no contractures], [purple discoloration of the second and third toe, cold extremities] Neuro: [no focal neuro deficits] Psych: [Alert], [oriented], [appropriate affect] - Labs CBC & Chem 7: 11/10/18 09:07 11/10/18 09:07 Labs: Abnormal Lab Results - Last 24 Hours (Table) 11/09/18 11/09/18 11/09/18 Range/Units 11:03 14:14 23:28 WBC (3.8-10.6) k/uL RBC (4.30-5.90) m/uL Hgb (13.0-17.5) gm/dL Hct (39.0-53.0) % MCV (80.0-100.0) fL Neutrophils # (1.3-7.7) k/uL Lymphocytes # (1.0-4.8) k/uL APTT >200.0 H* 148.7 H* (22.0-30.0) sec Sodium 134 L (137-145) mmol/L Potassium (3.5-5.1) mmol/L Chloride 115 H (98-107) mmol/L Carbon Dioxide 13 L (22-30) mmol/L Glucose (74-99) mg/dL Calcium 7.5 L (8.4-10.2) mg/dL Magnesium (1.6-2.3) mg/dL ALT 14 L (21-72) U/L Total Protein 4.1 L (6.3-8.2) g/dL Albumin 2.0 L (3.5-5.0) g/dL 11/10/18 11/10/18 11/10/18 Range/Units 01:33 09:07 09:07 WBC 10.9 H (3.8-10.6) k/uL RBC 3.25 L (4.30-5.90) m/uL Hgb 11.0 L (13.0-17.5) gm/dL Hct 34.3 L (39.0-53.0) % MCV 105.6 H (80.0-100.0) fL Neutrophils # 8.6 H (1.3-7.7) k/uL Lymphocytes # 0.8 L (1.0-4.8) k/uL APTT 102.5 H* (22.0-30.0) sec Sodium 134 L (137-145) mmol/L Potassium 3.3 L (3.5-5.1) mmol/L Chloride 111 H (98-107) mmol/L Carbon Dioxide 17 L (22-30) mmol/L Glucose 100 H (74-99) mg/dL Calcium 7.6 L (8.4-10.2) mg/dL Magnesium 1.1 L (1.6-2.3) mg/dL ALT (21-72) U/L Total Protein (6.3-8.2) g/dL Albumin (3.5-5.0) g/dL 11/10/18 Range/Units 09:07 WBC (3.8-10.6) k/uL RBC (4.30-5.90) m/uL Hgb (13.0-17.5) gm/dL Hct (39.0-53.0) % MCV (80.0-100.0) fL Neutrophils # (1.3-7.7) k/uL Lymphocytes # (1.0-4.8) k/uL APTT 124.7 H* (22.0-30.0) sec Sodium (137-145) mmol/L Potassium (3.5-5.1) mmol/L Chloride (98-107) mmol/L Carbon Dioxide (22-30) mmol/L Glucose (74-99) mg/dL Calcium (8.4-10.2) mg/dL Magnesium (1.6-2.3) mg/dL ALT (21-72) U/L Total Protein (6.3-8.2) g/dL Albumin (3.5-5.0) g/dL Microbiology - Last 24 Hours (Table) 11/06/18 18:22 Blood Culture - Preliminary Blood No Growth after 72 hours Assessment and Plan Assessment: Assessment and Plan Acute hypoxic respiratory failure, fluid overload from volume resuscitation Hypotension Suicidal ideation Sepsis, possible underlying cellulitis of the left lower extremity Troponin elevation with history of stent placement, rule out acute coronary syndrome Left toe discoloration, history of Raynaud's, rule out thromboembolic given history of A. fib Hyponatremia likely related to dehydration Alcohol abuse with high risk of withdrawal Atrial fibrillation Gastritis Abnormal chest x-ray Protein calorie malnutrition COPD Resolved: Lactic acidosis, acute kidney injury O2 saturation 83% on RA overnight after given 500 cc bolus for hypotension. Likely due to fluid overload from given IVF. Chest x-ray showing reticular patchy opacities. Given Lasix 20 mg IV stat. Plans: O2 per NC to maintain O2 saturation greater than 92%. Discontinue IVF. Will give intermittent Lasix, caution due to hypotension. SBP 74/36 while on BP 77/52. Repeat lactic acid within normal limits. Plans: D C IVF and continue serial BP monitoring. Midodrin increased to 10 mg 3 times a day by nephrology. Plans to check morning cortisol. Telemetry monitoring. Plans: One-to-one sitter. Suicidal precautions. Follow psychiatry recommendati ons. Patient meets criteria for sepsis (no admission). Heart rate greater than 90. Leukocytosis on admission. Hypotension responding to fluid bolus. Lactic acid of 2.1 on admission, now resolved. UA shows leukocyte esterase. Chest x-ray shows COPD and no signs of pneumonia. Blood culture negative at 72 hours. Plans: Continue Rocephin for concerns of UTI/cellulitis. Tylenol as needed for fever. Follow blood and urine cultures (repeat urine cultures ordered as it appears that it was not processed from ED). Troponin 0.141, 0.166, 0.162 with EKG showing sinus rhythm with PVCs. Possibly demand ischemia from alcohol withdrawal for sepsis or leak from CKD. Echocardiogram shows EF 55-60% with mild concentric LVH. Plans: Cardiology evaluated patient, recommends discontinue heparin drip and no further workup. ACS ruled out. Given aspirin in the ED, continue 81 mg by mouth daily. Telemetry monitoring. Dopplerable pulses as per ED physician. History of Raynaud's. CTA with runoff shows occlusion of the anterior tibial artery in the right and left, severe stenosis of peroneal artery. Plans: Would start calcium channel lula when BP normalizes. Continue gabapentin, colistazol. Per vascular surgery, no further workup or intervention. Heparin drip discontinued and patient started on Eliquis for stroke prevention in atrial fibrillation. Follow PT and OT recommendations, currently refusing. Follow pain management consultation. Sodium 125-129-134. Likely related to dehydration. Plans: IVF as above. R epeat BMP in the morning. Daily drinker. Last drink today? Plans: CIWA protocol. Ativan as needed for withdrawal symptoms. Multivitamin and thiamine. Rate controlled currently. Plans: Started on Eliquis 5 mg by mouth twice a day for anticoagulation by cardiology. Amylase and lipase within normal limits. Plans: Zofran as needed for nausea or vomiting. Continue Protonix IV daily. Possible osteophyte seen on chest x-ray. Plans: We'll need CT chest in the out patient setting to rule out lung cancer given history of smoking. BMI 18.7. Cachectic. Possibly related to underlying malignancy and alcohol abuse? Plans: Dietitian consult. Stable. Plans: DuoNeb as needed for SOB or wheezing. [Fluid overloaded today, IVF discontinued, given 1 dose of Lasix due to hypotension. Met sepsis criteria on admission, on IV Rocephin, follow urine and blood cultures. Cardiology evaluated for troponin elevation, likely demand and troponin leak, no further workup. Vascular surgery consulted for possible thromboembolic disease to the left toes, workup complete, recommends no surgical intervention, will need PT and OT input. Psychiatry consultation for suicidal ideation pending. Likely DC in 2-3 days.]
[2018-11-10] MEDS: CILOSTAZOL 100 MG TAB PO SCH ×2 (12:41→21:37)
--- NOTE | 2018-11-10 14:04 | P.ARTDOP ---
Arterial Doppler LOWER EXTREMITY ARTERIAL DOPPLER: DATE OF SERVICE: 11/08/18 Reason for study: Painful toes left foot. Doppler waveforms: Multiphasic bilaterally throughout. Pulse volume recording: Toe plethysmography shows peaked waveforms on the first digit on the right and on the fifth digits on both feet and the second digit on the right foot the other toes are near flat line. Pressure gradients: Only at the toe level. Ankle-brachial indices: Greater than 1 bilaterally. Toe pressures: 38 on the right, not audible on the left Impression: Distal phenomenon bilaterally, worse on the left than the right. Either peripheral micro-emboli, severe vasospastic phenomenon, or less likely distal disease. Clinical correlation recommended.
--- NOTE | 2018-11-10 20:45 | P.PAINCN ---
History of Present Illness - Reason for Consult Consult date: 11/10/18 - History of Present Illness This is 63 years old male, with a chronic history of severe left Toes, ( dorsum of the left foot ) , pain started 5-6 months ago, pain is constant severe, and currently his only pain medication Percocet 5/325 every 4 hours and Neurontin 100 mg twice a day, and he reported the current medication is not helping to control his pain,, the pain is constant and interferes with his parents are alive and patient reported that the pain made him depressed and he had suicidal Thoughts secondary to pain, patient denies any fever or chills no chest pain, no nausea or vomiting Past Medical History Past Medical History: Atrial Fibrillation, COPD, Hypertension Additional Past Medical History / Comment(s): Pt states he recently had PCI with stents about at [facility], generalized chronic pain, past multiple fractures including cervical fracture, severe diverticulitis with bowel resection/ileostomy and had bladder injury during surgery which required surgery then devloped an abdominal abscess which also required surgery, recent acute renal failure possibly d/t dehydration, bilateral Raynauld's syndrome-states fingers are always painful and numb/discoloration. Last Myocardial Infarction Date:: History of Any Multi-Drug Resistant Organisms: MRSA Year Discovered:: 04/06/17 MRSA Confirmed at [facility] MDRO Source:: Abdomen Past Surgical History: Bowel Resection, Heart Catheterization With Stent Additional Past Surgical History / Comment(s): 11/2017 PCI with stent at [facility], colonoscopies, bowel resection with ileostomy, cystoscopy for bladder repair, abdominal abscess with surgical intervention, R inguinal hernia repair with mesh, R knee arthroscopy. Past Anesthesia/Blood Transfusion Reactions: No Reported Reaction Date of Last Stent Placement:: 12/06/17 Past Psychological History: Depression Smoking Status: Current every day smoker Past Alcohol Use History: Daily Past Drug Use History: Prescription Drug Abuse - Past Family History Father Family Medical History: Myocardial Infarction ([place]) Additional Family Medical History / Comment(s): Father had 3 MIs, he had his first one at the age of 50 yrs. He at the age of 85 yrs. Mother Family Medical History: No Reported History Additional Family Medical History / Comment(s): Mother was healthy and lived to be 94 or 95 yrs old. Medications and Allergies Home Medications Medication Instructions Recorded Confirmed Type No Known Home Medications 11/09/18 11/09/18 History Allergies Allergy/AdvReac Type Severity Reaction Status Date / Time No Known Allergies Allergy Verified 11/06/18 14:49 Physical Exam Vitals: Vital Signs Temp Pulse Pulse Resp BP BP Pulse Ox 11/10/18 16:08 96.6 F L 103 H 20 88/57 100 11/10/18 15:32 110 H 20 11/10/18 11:53 98.0 F 110 H 20 95/53 96 11/10/18 11:09 104 H 20 11/10/18 09:15 97.6 F 104 H 18 78/48 77/52 98 11/10/18 04:54 96 11/10/18 04:51 110 H 11/10/18 04:41 102 H 11/10/18 04:00 97.5 F L 95 20 88/55 95 11/10/18 00:00 90 18 92/57 95 Intake and Output 11/10/18 11/10/18 11/10/18 06:59 14:59 22:59 Intake Total 3637.393 801.497 420 Output Total 750 1550 400 Balance 2887.393 -748.503 20 Intake: Intake, IV Titration 2837.393 81.497 Amount Heparin Sod,Pork in 0.45% 87.393 81.497 NaCl 25,000 unit In 0.45 % NaCl 1 250ml.bag @ 12 UNITS/KG/HR 8.165 mls/hr IV .Q24H [facility] Rx#: [id number] Sodium Chloride 0.9% 1, 2750 000 ml @ 125 mls/hr IV . Q8H [facility] Rx#:[id number] Oral 800 720 420 Output: Urine 750 1550 400 Other: Voiding Method Urinal Urinal Urinal Weight 67.5 kg 67.5 kg Physical Examinations : -Constitutiona : Cooperative , not in acute distress . -HEENT : nech : supple , no Lymphadenopathy , normal thyroid size . eyes : no ptosis , no icterus, no samanta tophobia . ENT : normal of hearing , normal oropharynx , no Thrush . - Respiratory : Chest clear to auscultations Bilaterally , no wheezing , no Rhonchi . - Cardiovascula : regular rate and rhythem , S1 , S2 , no S3 , no S4. - Gastrointestina : abdomen soft no tenderness , bowel sounds , no organomegally . - Genitourinary : Defferred . - neurologic : Cranial nerve II to XII intact , no focal neurological deffecit . -psychatric : alert , oriented X 3 , depressed mood , he is under suicidal watch . -Lymphatic : no Lymphadenopathy . - musculoskeltal : Lumber spine moter stegnth lower extremities ,thigh and legs 5/5 Right side , 5/5 Left side Purple discoloration at the medial aspect of the left foot, positive allodynia and dysesthesia at the medial aspect of the left foot Results CBC & Chem 7: 11/10/18 09:07 11/10/18 09:07 Labs: Abnormal Lab Results - Last 24 Hours (Table) 11/09/18 11/10/18 11/10/18 Range/Units 23:28 01:33 09:07 WBC 10.9 H (3.8-10.6) k/uL RBC 3.25 L (4.30-5.90) m/uL Hgb 11.0 L (13.0-17.5) gm/dL Hct 34.3 L (39.0-53.0) % MCV 105.6 H (80.0-100.0) fL Neutrophils # 8.6 H (1.3-7.7) k/uL Lymphocytes # 0.8 L (1.0-4.8) k/uL APTT 148.7 H* 102.5 H* (22.0-30.0) sec Sodium (137-145) mmol/L Potassium (3.5-5.1) mmol/L Chloride (98-107) mmol/L Carbon Dioxide (22-30) mmol/L Glucose (74-99) mg/dL Calcium (8.4-10.2) mg/dL Magnesium (1.6-2.3) mg/dL 11/10/18 11/10/18 Range/Units 09:07 09:07 WBC (3.8-10.6) k/uL RBC (4.30-5.90) m/uL Hgb (13.0-17.5) gm/dL Hct (39.0-53.0) % MCV (80.0-100.0) fL Neutrophils # (1.3-7.7) k/uL Lymphocytes # (1.0-4.8) k/uL APTT 124.7 H* (22.0-30.0) sec Sodium 134 L (137-145) mmol/L Potassium 3.3 L (3.5-5.1) mmol/L Chloride 111 H (98-107) mmol/L Carbon Dioxide 17 L (22-30) mmol/L Glucose 100 H (74-99) mg/dL Calcium 7.6 L (8.4-10.2) mg/dL Magnesium 1.1 L (1.6-2.3) mg/dL Microbiology - Last 24 Hours (Table) 11/06/18 18:22 Blood Culture - Preliminary Blood No Growth after 72 hours Comments: Lower extremity Dopplers= vasospasm versus peripheral microembolic. CT angiogram= atherosclerotic disease peripheral arterial disease with stenosis of the peroneal artery. Assessment and Plan Plan: Assessment and plan= severe left foot pain, clinical picture of raynaud;s syn drome, versus microemboli, he shouldn't was on Percocet 5/325 every 4 hours Was increased today afternoon to 10/325 every 6 hours, also patient was on Neurontin 100 mg twice a day, it was already increased today to 300 mg twice a day, I agree with the dosage increas of Neurontin and the Percocet, and we have to evaluate, patient response to the increase of the dosage. the patient could potentially benefit from lumbar sympathetic block, to do the block we have to hold on blood thinner,( we have to hold Pletal for 5 days ,and we have to hold ELIQUIS for 3 days ) , The best option at this point ,is medication management . Time with Patient: Greater than 30 PQRS Measure Charge Sheet PQRS Narrative: Smoking Status Current every day smoker Blood Pressure [Left Arm] 78/48 Blood Pressure [Right Arm 88/57 Supine] Blood Pressure 120/97 Pain Intensity [Bilateral Foot 8 ] Pain Intensity 8 Pain Scale Used Numeric (1 - 10) Scale Used Numeric (1 - 10) Home Medications: Ambulatory Orders No Known Home Medications 11/09/18
[2018-11-10] MEDS: ATORVASTATIN 40 MG TAB PO SCH (21:36)
[2018-11-10] MEDS: GABAPENTIN 300 MG CAP PO SCH (21:37)
[2018-11-11] MEDS: MORPHINE SULFATE 2 MG/ML SYRINGE IV PRN ×2 (00:02→07:06)
[2018-11-11 06:33] LABS: Basophils % (A) 0 %; Eosinophils # (A) 0.4 k/uL (0-0.7); Eosinophils % (A) 4 %; HCT 30.1 % (39.0-53.0); HGB 9.8 gm/dL (13.0-17.5); Lymphocytes # (A) 0.8 k/uL (1.0-4.8); Lymphocytes % (A) 7 %; MCH 34.3 pg (25.0-35.0); MCHC 32.5 g/dL (31.0-37.0); MCV 105.5 fL (80.0-100.0); Macrocytosis Moderate; Mean Platelet Volume 8.2; Monocytes # (A) 1.3 k/uL (0-1.0); Monocytes % (A) 11 %; Neutrophils # (A) 8.4 k/uL (1.3-7.7); Neutrophils % (A) 76 %; Platelet Count 167 k/uL (150-450); RBC 2.85 m/uL (4.30-5.90); RDW 15.9 % (11.5-15.5)
[2018-11-11] MEDS: MIDODRINE 5 MG TAB PO SCH ×3 (07:00→16:46)
[2018-11-11] MEDS: THIAMINE 100 MG TAB PO SCH ×2 (07:01→16:41)
[2018-11-11 07:52] LABS: Calcium 7.7 mg/dL (8.4-10.2); Magnesium 1.8 mg/dL (1.6-2.3); Potassium 3.5 mmol/L (3.5-5.1)
[2018-11-11 07:52] LABS: INR 0.9 (<1.2)
[2018-11-11] MEDS: MULTIVITAMINS, THERA 1 EACH TAB PO SCH (08:12)
[2018-11-11] MEDS: SODIUM BICARBONATE TAB 650 MG TAB PO SCH ×2 (08:12→23:44)
[2018-11-11] MEDS: GABAPENTIN 300 MG CAP PO SCH ×2 (08:12→23:44)
[2018-11-11] MEDS: DICYCLOMINE 10 MG CAP PO SCH ×3 (08:12→23:48)
[2018-11-11] MEDS: ASPIRIN 81 MG PO SCH (08:12)
[2018-11-11] MEDS: PANTOPRAZOLE 40 MG/10 ML VIAL IVP SCH (08:12)
[2018-11-11] MEDS: NICOTINE 21MG/24HR PATCH TRANSDERM SCH (08:12)
[2018-11-11] MEDS: APIXABAN 5 MG TAB PO SCH (08:18)
[2018-11-11] MEDS: CILOSTAZOL 100 MG TAB PO SCH ×2 (09:15→23:44)
--- NOTE | 2018-11-11 09:55 | P.PN ---
Subjective Progress Note Date: 11/11/18 Pt s/e. Overall feeling slightly improved. Did get out of bed yesterday NAD, resting irregularly irreg no respiratory distress abd soft, ostomy patent ext warm, dry. No worsening of toe discoloration. Pain in toes [place] Tobacco abuse At this time, given all imaging, adaquate waveforms, small vessel disease, would recommend conservative treatment. continue Pletal. Have room to increase Neurontin. Will defer further to pain management No vascular intervention planned at this time. Okay for discharge from vascular standpoint Objective - Vital Signs Vital signs: Vital Signs Temp 96.9 F L 11/11/18 08:23 Pulse 108 H 11/11/18 08:24 Resp 20 11/11/18 08:24 BP 94/55 11/11/18 08:23 Pulse Ox 98 11/11/18 08:23 Intake & Output 11/10/18 11/11/18 11/11/18 18:59 06:59 18:59 Intake Total 1221.497 800 480 Output Total 1950 800 Balance -728.503 0 480 Weight 67.5 kg 67 kg Intake: Intake, IV Titration 81.497 Amount Heparin Sod,Pork in 0.45% 81.497 NaCl 25,000 unit In 0.45 % NaCl 1 250ml.bag @ 12 UNITS/KG/HR 8.165 mls/hr IV .Q24H [facility] Rx#: [id number] Oral 1140 800 480 Output: Urine 1950 600 Stool 200 Other: Voiding Method Urinal Urinal Urinal - Labs CBC & Chem 7: 11/11/18 05:59 11/11/18 05:59 Labs: Abnormal Lab Results - Last 24 Hours (Table) 11/10/18 11/10/18 11/10/18 Range/Units 09:07 09:07 09:07 WBC 10.9 H (3.8-10.6) k/uL RBC 3.25 L (4.30-5.90) m/uL Hgb 11.0 L (13.0-17.5) gm/dL Hct 34.3 L (39.0-53.0) % MCV 105.6 H (80.0-100.0) fL RDW (11.5-15.5) % Neutrophils # 8.6 H (1.3-7.7) k/uL Lymphocytes # 0.8 L (1.0-4.8) k/uL Monocytes # (0-1.0) k/uL APTT 124.7 H* (22.0-30.0) sec Sodium 134 L (137-145) mmol/L Potassium 3.3 L (3.5-5.1) mmol/L Chloride 111 H (98-107) mmol/L Carbon Dioxide 17 L (22-30) mmol/L Glucose 100 H (74-99) mg/dL Calcium 7.6 L (8.4-10.2) mg/dL Magnesium 1.1 L (1.6-2.3) mg/dL 11/11/18 11/11/18 11/11/18 Range/Units 05:59 05:59 07:14 WBC 11.0 H (3.8-10.6) k/uL RBC 2.85 L (4.30-5.90) m/uL Hgb 9.8 L (13.0-17.5) gm/dL Hct 30.1 L (39.0-53.0) % MCV 105.5 H (80.0-100.0) fL RDW 15.9 H (11.5-15.5) % Neutrophils # 8.4 H (1.3-7.7) k/uL Lymphocytes # 0.8 L (1.0-4.8) k/uL Monocytes # 1.3 H (0-1.0) k/uL APTT 35.0 H (22.0-30.0) sec Sodium 133 L (137-145) mmol/L Potassium (3.5-5.1) mmol/L Chloride 108 H (98-107) mmol/L Carbon Dioxide 19 L (22-30) mmol/L Glucose (74-99) mg/dL Calcium 7.7 L (8.4-10.2) mg/dL Magnesium (1.6-2.3) mg/dL Microbiology - Last 24 Hours (Table) 11/06/18 18:22 Blood Culture - Preliminary Blood No Growth after 96 hours
[2018-11-11] MEDS: oxyCODONE-APAP 10-325MG 1 EACH TAB PO PRN ×2 (10:59→16:41)
[2018-11-11] MEDS ORDERED: POTASSIUM CHLORIDE ER 20 MEQ TAB.ER PO STA (11:14)
[2018-11-11] MEDS: IPRATROPIUM-ALBUTEROL 3 ML NEB INHALATION PRN (11:19)
--- NOTE | 2018-11-11 12:20 | P.PN ---
Subjective Patient is seen in follow for acute kidney injury. Renal function is improving. Continues to have pain in his lower extremities. Oral intake is fair. No vomiting. No chest pain. States he's coughing up blood. Vital signs are stable. General: The patient appeared well nourished and normally developed. HEENT: Head exam is unremarkable. Neck is without jugular venous distension. LUNGS: Breath sounds decreased. HEART: Rate and Rhythm are regular. First and second heart sounds normal. No murmurs, rubs or gallops. ABDOMEN: Abdominal exam reveals normal bowel sounds. Non-tender and non- distended. No evidence of peritonitis. EXTREMITITES: No clubbing, cyanosis, or edema. Objective - Vital Signs Vital signs: Vital Signs Temp 96.9 F L 11/11/18 08:23 Pulse 110 H 11/11/18 11:33 Resp 20 11/11/18 11:19 BP 94/55 11/11/18 08:23 Pulse Ox 98 11/11/18 08:23 Intake & Output 11/10/18 11/11/18 11/11/18 18:59 06:59 18:59 Intake Total 1221.497 800 480 Output Total 1950 800 Balance -728.503 0 480 Weight 67.5 kg 67 kg Intake: Intake, IV Titration 81.497 Amount Heparin Sod,Pork in 0.45% 81.497 NaCl 25,000 unit In 0.45 % NaCl 1 250ml.bag @ 12 UNITS/KG/HR 8.165 mls/hr IV .Q24H [facility] Rx#: [id number] Oral 1140 800 480 Output: Urine 1950 600 Stool 200 Other: Voiding Method Urinal Urinal Urinal - Labs CBC & Chem 7: 11/11/18 05:59 11/11/18 05:59 Labs: Abnormal Lab Results - Last 24 Hours (Table) 11/11/18 11/11/18 11/11/18 Range/Units 05:59 05:59 07:14 WBC 11.0 H (3.8-10.6) k/uL RBC 2.85 L (4.30-5.90) m/uL Hgb 9.8 L (13.0-17.5) gm/dL Hct 30.1 L (39.0-53.0) % MCV 105.5 H (80.0-100.0) fL RDW 15.9 H (11.5-15.5) % Neutrophils # 8.4 H (1.3-7.7) k/uL Lymphocytes # 0.8 L (1.0-4.8) k/uL Monocytes # 1.3 H (0-1.0) k/uL APTT 35.0 H (22.0-30.0) sec Sodium 133 L (137-145) mmol/L Chloride 108 H (98-107) mmol/L Carbon Dioxide 19 L (22-30) mmol/L Calcium 7.7 L (8.4-10.2) mg/dL Microbiology - Last 24 Hours (Table) 11/10/18 08:05 Urine Culture - Final Urine,Catheterized 11/06/18 15:25 Urine Culture - Final Urine,Catheterized 11/06/18 18:22 Blood Culture - Preliminary Blood No Growth after 96 hours Assessment and Plan Plan: Assessment: 1. Acute kidney injury mostly prerenal improved with IV hydration. Creatinine was 1.85 on admission and is stable at 1.11 today. Baseline creatinine near 1. Trace proteinuria noted on UA. 2. Hypotension due to intravascular volume depletion. A.m. cortisol level in the normal range. 3. Metabolic acidosis secondary to acute kidney injury and IV fluids. Better. Maintained on oral sodium bicarbonate. 4. Peripheral arterial disease. Status post CT and November 3. Vascular surgery following. No interventions planned at this time. 5. Alcohol abuse. 6. History of A. fib. 7. Hypomagnesemia from poor oral intake. Status post replacement. Better. 8. Hypokalemia from poor oral intake and hypomagnesemia. Better. 9. Hemoptysis. Rule out pulmonary hemorrhage. Plan: Remains off IV fluids. Maintain midodrine 10 mg 3 times daily. To be held if systolic blood pressure greater than 110. Replace potassium. 20 mEq today. Encouraged oral intake. Avoid nephrotoxins. Continue to monitor renal function and urine output. If remains persistently hypotensive despite increased dose of midodrine, will add Florinef. Check ANCA titers and anti-GBM. Follow-up CAT scan of the chest results. Discussed with primary team.
--- NOTE | 2018-11-11 12:27 | CT ---
EXAMINATION TYPE: CT chest wo con DATE OF EXAM: 11/11/2018 COMPARISON: 07/22/2018 CT abdomen HISTORY: Hemoptysis CT DLP: 255.3 mGycm. Automated Exposure Control for Dose Reduction was Utilized. TECHNIQUE: CT scan of the thorax is performed without IV contrast. FINDINGS: LUNGS: Bilateral pleural effusions. There is fairly diffuse patchy infiltrate involving the right saria g. Small left pleural effusion and basilar consolidation likely in the basis of compressive atelectas is. No evidence of pneumothorax.. MEDIASTINUM: Lack of IV contrast is noted to limit evaluation for mediastinal and especially hilar ad enopathy. There are no definitive greater than 1 cm hilar or mediastinal lymph nodes. Atherosclerotic change of the vasculature. Coronary artery calcification noted. There is a small pericardial effusio n.. OTHER: Hypertrophic and degenerative change of the spine. Stomach is somewhat distended. Hypodense le krystina in the caudate lobe of the liver is nonspecific but stable from prior CT scan of 07/22/2018. Smal l hiatal hernia noted. Abnormal morphology of the left kidney is stable dating back to multiple previ ous CT scans. IMPRESSION: 1. Bilateral pleural effusions with diffuse infiltrate throughout the right lung most typical of a pn eumonia or pneumonitis. Follow-up to resolution to exclude other etiologies. 2. There is a lobulated contour to the posterior aspect of the left mid to lower pole kidney which is stable dating back to 2018. No contrast was administered on today's exam. Recent ultrasound demonstr ated no definite focal mass. This could been the basis of a congenital deformity. Duplicated collecti ng system. Correlate with MRI as clinically warranted. 2. Small pericardial effusion
[2018-11-11 12:28] LABS: Anisocytosis Slight; HCT 30.8 % (39.0-53.0); HGB 10.2 gm/dL (13.0-17.5); MCH 35.6 pg (25.0-35.0); MCHC 33.2 g/dL (31.0-37.0); Macrocytosis Marked; Mean Platelet Volume 7.8; Platelet Count 197 k/uL (150-450); RBC 2.87 m/uL (4.30-5.90); WBC 13.6 k/uL (3.8-10.6)
[2018-11-11 12:32] LABS: MCV 107.2 fL (80.0-100.0)
[2018-11-11] MEDS ORDERED: FUROSEMIDE 10 MG/ML 2 ML VIAL IV STA (16:26)
--- NOTE | 2018-11-11 16:30 | P.PN ---
Subjective Progress Note Date: 11/11/18 Principal diagnosis: foot pain Patient is a 63-year-old male past medical history of atrial fibrillation, COPD, hypertension, coronary artery disease with percutaneous in tervention, diverticulitis status post ostomy creation, or nonspecific syndrome, and generalized chronic pain who presented to the emergency department with complaints of suicidal ideation, left toe discoloration, and severe pain. In the ER he underwent an extensive evaluation. He was initially hypotensive at 82/64 but responded to IV fluids. Laboratory analysis showed a leukocytosis of 13.1, sodium 125, bicarbonate 18, BUN 48, and creatinine 1.85. Lactic acid was noted to be elevated at 2.1. Troponin was also elevated at 0.141. Chest x-ray showed findings of COPD and osteophyte formation with concern for possible increased risk of lung cancer. Follow-up CAT scan was recommended. He was admitted for possible cellulitis with sepsis of the left lower extremity and troponin elevation with history of coronary artery disease. He was started on IV fluids, troponins were trended, and Rocephin was started with concern for cellulitis. He was also started on normal saline due to his acute kidney injury. He was seen by vascular surgery who felt that the patient likely had significant peripheral arterial disease. Patient was on a heparin drip. Due to his elevated troponins he underwent an echocardiogram that showed mild LVH, ejection fraction 55-60% and was otherwise unremarkable. Cardiology felt his elevated troponin likely secondary to renal insufficiency. Nephrology was co nsulted and Midrin was added to optimize blood pressures. His dose of oral sodium bicarb was increased. Lower extremity arterial imaging revealed normal ABIs. CTA with runoff was obtained which showed minor atherosclerotic calcifications with reconstruction. He is also found to have diffuse anasarca with bilateral pleural effusions and moderate free pelvic fluid. Patient continued to: Bowel not being able to handle the pain anymore and wanted to end it all. He initially would not see psychiatry. He stated this was secondary to pain. His Percocet was increased as well as his Neurontin. Pain management was consulted who agreed with these changes. Vascular surgery felt that he was havi ng rebound phenomenon getting adequate weaning forms and small vessel disease. Recommending conservative treatment including Pletal. His heparin drip was stopped and was started on Eliquis by cardiology. Overnight on 11/10 he developed significant hemoptysis. He is also noted to have worsening anemia. Patient seen and examined at bedside. He again states he wants to kill himself secondary to the pain. He states that the increased pain medications did help. He initially tells me that the pain is better when he takes pain medicine, he then contradicted this statement and stated that the pain medicine wasn't helping. After much discussion it turns out the pain medication is decreasing the pain but not taking it completely away. He is amenable to going to subacute rehab. He states that he has been coughing up blood. He indicates he was told he has a possibility of cancer but has not followed up. He denies any nausea or vomiting, having normal ostomy output area denies any chest pain or significant shortness of breath. Objective - Vital Signs Vital signs: Vital Signs Temp 96.9 F L 11/11/18 08:23 Pulse 108 H 11/11/18 08:24 Resp 20 11/11/18 08:24 BP 94/55 11/11/18 08:23 Pulse Ox 98 11/11/18 08:23 Intake & Output 11/10/18 11/11/18 11/11/18 18:59 06:59 18:59 Intake Total 1221.497 800 480 Output Total 1950 800 Balance -728.503 0 480 Weight 67.5 kg 67 kg Intake: Intake, IV Titration 81.497 Amount Heparin Sod,Pork in 0.45% 81.497 NaCl 25,000 unit In 0.45 % NaCl 1 250ml.bag @ 12 UNITS/KG/HR 8.165 mls/hr IV .Q24H [facility] Rx#: [id number] Oral 1140 800 480 Output: Urine 1950 600 Stool 200 Other: Voiding Method Urinal Urinal Urinal - Exam General: non toxic, no distress, appears older than stated age, cachectic with temporal wasting Derm: warm, dry, multiple pock maria Head: atraumatic, normocephalic, symmetric Eyes: EOMI, no lid lag, anicteric sclera Mouth: no lip lesion, mucus membranes dry Cardiovascular: S1S2 regular, no murmur, positive posterior tibial pulse bilateral, Lungs: Crackles bilateral bases, no rhonchi, no rales , no accessory muscle use Abdominal: soft, nontender to palpation, no guarding, no appreciable organomegaly Ext: no gross muscle atrophy, no edema, no contractures Neuro: CN II-XI grossly intact, no focal neuro deficits Psych: Alert, oriented, appropriate affect - Labs CBC & Chem 7: 11/11/18 12:09 11/11/18 05:59 Labs: Abnormal Lab Results - Last 24 Hours (Table) 11/11/18 11/11/18 11/11/18 Range/Units 05:59 05:59 07:14 WBC 11.0 H (3.8-10.6) k/uL RBC 2.85 L (4.30-5.90) m/uL Hgb 9.8 L (13.0-17.5) gm/dL Hct 30.1 L (39.0-53.0) % MCV 105.5 H (80.0-100.0) fL RDW 15.9 H (11.5-15.5) % Neutrophils # 8.4 H (1.3-7.7) k/uL Lymphocytes # 0.8 L (1.0-4.8) k/uL Monocytes # 1.3 H (0-1.0) k/uL APTT 35.0 H (22.0-30.0) sec Sodium 133 L (137-145) mmol/L Chloride 108 H (98-107) mmol/L Carbon Dioxide 19 L (22-30) mmol/L Calcium 7.7 L (8.4-10.2) mg/dL Microbiology - Last 24 Hours (Table) 11/06/18 18:22 Blood Culture - Preliminary Blood No Growth after 96 hours Assessment and Plan Assessment: Hemoptysis -Was supratherapeutic on his heparin drip which has been stopped. Patient has not had documented A. fib on review of telemetry. We'll stop Eliquis. -CT chest -Follow CBC -Check CRP, and ANCA studies to rule out vasculitis. Suicidal ideation -Secondary to uncontrolled pain. Pain medication regimen has been optimized. -Await psychiatry recommendations: appears more related to current medical situation and pain control issues. -Consider Leukocytosis, undetermined etiology -Continue to monitor -Monitor renal profile -Was started on Rocephin for cellulitis coverage and had improvement in his white blood cell count -Continue workup for possible vasculitis -Await repeat urinalysis and CT chest Severe pain in lower extremity secondary to Reynauds and peripheral arterial disease -Tere surgery recommendations appreciated. We'll proceed with medical management. Pletal was added -Continue with Percocet 10/325 as well as increased Neurontin dosing -Pain management recommendations appreciated Acute kidney injury secondary to dehydration -Near baseline -Nephrology recommendations appreciated Paroxysmal atrial fibrillation -Currently in sinus rhythm -No anticoagulation secondary to hemoptysis Alcohol abuse -[facility] protocol -Thiamine and folic acid supplementation Metabolic acidosis secondary to acute kidney injury -Continue with oral sodium bicarb -Continue to follow levels Elevated troponin -Acute coronary syndrome ruled out -[place] to be secondary to acute renal failure Hypokalemia and hypomagnesemia, resolved Hyponatremia, resolved Dehydration, resolved COPD, chronic without exacerbation DVT prophylaxis: SCDs Discussed with: Patient, nursing, nephro Anticipated discharge: 3-[address]: SNF vs [facility] A total of 45 minutes was spent on the care of this complex patient more than 50% of the time was spent in counseling and care coordination.
[2018-11-11] MEDS: AZITHROMYCIN 500 MG TAB PO SCH (16:46)
[2018-11-11] MEDS: PIPERACILLIN-TAZOBACTAM 3.375 GM in SODIUM CHLORIDE 0.9% 100 ML IVPB SCH ×2 (16:46→23:48)
[2018-11-11 17:46] LABS: Appearance,Urine Cloudy (Clear); Bacteria,Urine Many /hpf; Bilirubin,Urine Negative (Negative); Blood,Urine Moderate (Negative); Color,Urine Light Yellow; Glucose,Urine (UA) Negative (Negative); Ketones,Urine Negative (Negative); Leukocyte Esterase,Urine Moderate (Negative); Mucus,Urine Occasional /hpf; Nitrite,Urine Negative (Negative); Protein,Urine Trace (Negative); RBC,Urine 47 /hpf (0-5); Specific Gravity,Urine 1.006 (1.001-1.035); Sperm,Urine Many /hpf; Urobilinogen,Urine <2.0 mg/dL (<2.0)
[2018-11-11] MEDS: ATORVASTATIN 40 MG TAB PO SCH (23:44)
[2018-11-12] MEDS: MIDODRINE 5 MG TAB PO SCH ×3 (06:48→16:45)
[2018-11-12] MEDS: THIAMINE 100 MG TAB PO SCH ×2 (06:48→16:45)
[2018-11-12] MEDS: oxyCODONE-APAP 10-325MG 1 EACH TAB PO PRN ×4 (06:50→21:03)
[2018-11-12] MEDS: NICOTINE 21MG/24HR PATCH TRANSDERM SCH (06:51)
[2018-11-12 07:12] LABS: Albumin 2.1 g/dL (3.5-5.0); Calcium 7.8 mg/dL (8.4-10.2); Magnesium 1.4 mg/dL (1.6-2.3); Potassium 3.7 mmol/L (3.5-5.1); Total Bilirubin 0.7 mg/dL (0.2-1.3); Total Protein 4.3 g/dL (6.3-8.2)
[2018-11-12] MEDS: MAGNESIUM SULFATE-D5W PMX 1 GM in DEXTROSE/WATER 1 100ML.BAG IVPB SCH ×4 (08:41→13:21)
[2018-11-12] MEDS: MULTIVITAMINS, THERA 1 EACH TAB PO SCH (08:42)
[2018-11-12] MEDS: PIPERACILLIN-TAZOBACTAM 3.375 GM in SODIUM CHLORIDE 0.9% 100 ML IVPB SCH ×3 (08:42→23:18)
[2018-11-12] MEDS: PANTOPRAZOLE 40 MG/10 ML VIAL IVP SCH (08:42)
[2018-11-12] MEDS: CILOSTAZOL 100 MG TAB PO SCH ×2 (08:42→20:56)
[2018-11-12] MEDS: DICYCLOMINE 10 MG CAP PO SCH ×3 (08:42→20:56)
[2018-11-12] MEDS: GABAPENTIN 300 MG CAP PO SCH ×2 (08:42→20:56)
[2018-11-12] MEDS: SODIUM BICARBONATE TAB 650 MG TAB PO SCH ×2 (08:43→20:56)
[2018-11-12 09:12] LABS: Anisocytosis Slight; HCT 26.6 % (39.0-53.0); MCH 35.8 pg (25.0-35.0); MCHC 33.9 g/dL (31.0-37.0); MCV 105.8 fL (80.0-100.0); Macrocytosis Moderate; Mean Platelet Volume 8.5; Platelet Count 189 k/uL (150-450); RBC 2.52 m/uL (4.30-5.90); WBC 10.8 k/uL (3.8-10.6)
[2018-11-12 11:52] LABS: Anti-Glomerular Basement Memb 2 UNITS (0-20)
[2018-11-12] MEDS ORDERED: POTASSIUM CHLORIDE ER 20 MEQ TAB.ER PO STA (11:58)
[2018-11-12] MEDS ORDERED: FUROSEMIDE 10 MG/ML 4 ML VIAL IV STA (12:06)
--- NOTE | 2018-11-12 12:06 | P.PN ---
Subjective Patient is seen in follow for acute kidney injury. Renal function is stable. Continues to have hemoptysis. Oral intake is fair. No vomiting. No chest pain. Vital signs are stable. General: The patient appeared well nourished and normally developed. HEENT: Head exam is unremarkable. Neck is without jugular venous distension. LUNGS: Breath sounds decreased. HEART: Rate and Rhythm are regular. First and second heart sounds normal. No murmurs, rubs or gallops. ABDOMEN: Abdominal exam reveals normal bowel sounds. Non-tender and non-diste nded. No evidence of peritonitis. EXTREMITITES: No clubbing, cyanosis, or edema. Objective - Vital Signs Vital signs: Vital Signs Temp 98.8 F 11/12/18 04:00 Pulse 84 11/12/18 08:00 Resp 16 11/12/18 08:00 BP 95/52 11/12/18 08:00 Pulse Ox 97 11/12/18 08:00 Intake & Output 11/11/18 11/12/18 11/12/18 18:59 06:59 18:59 Intake Total 840 Output Total 650 2850 250 Balance 190 -2850 -250 Weight 64.5 kg Intake: Oral 840 Output: Urine 650 2250 250 Uretheral ([place]) 250 750 250 Stool 600 Other: Voiding Method Urinal Urinal - Labs CBC & Chem 7: 11/12/18 05:47 11/12/18 05:47 Labs: Abnormal Lab Results - Last 24 Hours (Table) 11/11/18 11/11/18 11/11/18 Range/Units 05:59 12:09 17:17 WBC 13.6 H (3.8-10.6) k/uL RBC 2.87 L (4.30-5.90) m/uL Hgb 10.2 L (13.0-17.5) gm/dL Hct 30.8 L (39.0-53.0) % MCV 107.2 H (80.0-100.0) fL MCH 35.6 H (25.0-35.0) pg RDW 16.0 H (11.5-15.5) % Macrocytosis Marked A Sodium (137-145) mmol/L Carbon Dioxide (22-30) mmol/L Calcium (8.4-10.2) mg/dL Magnesium (1.6-2.3) mg/dL AST (17-59) U/L ALT (21-72) U/L C-Reactive Protein 170.2 H (<10.0) mg/L Total Protein (6.3-8.2) g/dL Albumin (3.5-5.0) g/dL Urine Protein Trace H (Negative) Urine Blood Moderate H (Negative) Ur Leukocyte Esterase Moderate H (Negative) Urine RBC 47 H (0-5) /hpf Urine WBC 36 H (0-5) /hpf Urine Bacteria Many H (None) /hpf Urine Mucus Occasional H (None) /hpf Urine Sperm Many H (None) /hpf 11/12/18 11/12/18 Range/Units 05:47 05:47 WBC 10.8 H (3.8-10.6) k/uL RBC 2.52 L (4.30-5.90) m/uL Hgb 9.0 L (13.0-17.5) gm/dL Hct 26.6 L (39.0-53.0) % MCV 105.8 H (80.0-100.0) fL MCH 35.8 H (25.0-35.0) pg RDW 16.0 H (11.5-15.5) % Macrocytosis Sodium 131 L (137-145) mmol/L Carbon Dioxide 21 L (22-30) mmol/L Calcium 7.8 L (8.4-10.2) mg/dL Magnesium 1.4 L (1.6-2.3) mg/dL AST 16 L (17-59) U/L ALT 14 L (21-72) U/L C-Reactive Protein (<10.0) mg/L Total Protein 4.3 L (6.3-8.2) g/dL Albumin 2.1 L (3.5-5.0) g/dL Urine Protein (Negative) Urine Blood (Negative) Ur Leukocyte Esterase (Negative) Urine RBC (0-5) /hpf Urine WBC (0-5) /hpf Urine Bacteria (None) /hpf Urine Mucus (None) /hpf Urine Sperm (None) /hpf Microbiology - Last 24 Hours (Table) 11/10/18 08:05 Urine Culture - Preliminary Urine,Catheterized Yeast species 11/11/18 17:17 Urine Culture - Preliminary Urine,Voided 11/06/18 18:22 Blood Culture - Preliminary Blood No Growth after 120 hours 11/06/18 15:25 Urine Culture - Final Urine,Catheterized Assessment and Plan Plan: Assessment: 1. Acute kidney injury mostly prerenal improved with IV hydration. Creatinine was 1.85 on admission and is stable at 1.25 today. Baseline creatinine near 1. Trace proteinuria noted on UA. 2. Hypotension due to intravascular volume depletion. A.m. cortisol level in the normal range. 3. Metabolic acidosis secondary to acute kidney injury and IV fluids. Better. Maintained on oral sodium bicarbonate. 4. Peripheral arterial disease. Status post CT and November 3. Vascular surgery following. No interventions planned at this time. 5. Alcohol abuse. 6. History of A. fib. 7. Hypomagnesemia from poor oral intake and alcohol abuse. 8. Hypokalemia from poor oral intake and hypomagnesemia. Better. 9. Hemoptysis. Rule out pulmonary hemorrhage. Anti-GBM negative. Eliquis sto pped. 10. Bilateral pleural effusions. Plan: Remains off IV fluids. Lasix 40 mg IV once today. Maintain midodrine 10 mg 3 times daily. To be held if systolic blood pressure greater than 110. Replace potassium. 20 mEq today. Replace magnesium. 3 g IV today. Add Florinef. Encouraged oral intake. Avoid nephrotoxins. Continue to monitor renal function and urine output. Follow-up ANCA titiers. Check urine eosinophils and complement levels due to concern for renal atheroemboli.
[2018-11-12] MEDS: FLUDROCORTISONE 0.1 MG TAB PO SCH (13:46)
[2018-11-12 14:20] LABS: C-ANCA <1:20 Titer (<1:20)
--- NOTE | 2018-11-12 14:36 | P.PN ---
Subjective Progress Note Date: 11/12/18 Principal diagnosis: foot pain Patient is a 63-year-old male past medical history of atrial fibrillation, COPD, hypertension, coronary artery disease with percutaneous in tervention, diverticulitis status post ostomy creation, or nonspecific syndrome, and generalized chronic pain who presented to the emergency department with complaints of suicidal ideation, left toe discoloration, and severe pain. In the ER he underwent an extensive evaluation. He was initially hypotensive at 82/64 but responded to IV fluids. Laboratory analysis showed a leukocytosis of 13.1, sodium 125, bicarbonate 18, BUN 48, and creatinine 1.85. Lactic acid was noted to be elevated at 2.1. Troponin was also elevated at 0.141. Chest x-ray showed findings of COPD and osteophyte formation with concern for possible increased risk of lung cancer. Follow-up CAT scan was recommended. He was admitted for possible cellulitis with sepsis of the left lower extremity and troponin elevation with history of coronary artery disease. He was started on IV fluids, troponins were trended, and Rocephin was started with concern for cellulitis. He was also started on normal saline due to his acute kidney injury. He was seen by vascular surgery who felt that the patient likely had significant peripheral arterial disease. Patient was on a heparin drip. Due to his elevated troponins he underwent an echocardiogram that showed mild LVH, ejection fraction 55-60% and was otherwise unremarkable. Cardiology felt his elevated troponin likely secondary to renal insufficiency. Nephrology was co nsulted and Midrin was added to optimize blood pressures. His dose of oral sodium bicarb was increased. Lower extremity arterial imaging revealed normal ABIs. CTA with runoff was obtained which showed minor atherosclerotic calcifications with reconstruction. He is also found to have diffuse anasarca with bilateral pleural effusions and moderate free pelvic fluid. Patient continued to: Bowel not being able to handle the pain anymore and wanted to end it all. He initially would not see psychiatry. He stated this was secondary to pain. His Percocet was increased as well as his Neurontin. Pain management was consulted who agreed with these changes. Vascular surgery felt that he was havi ng rebound phenomenon getting adequate weaning forms and small vessel disease. Recommending conservative treatment including Pletal. His heparin drip was stopped and was started on Eliquis by cardiology. Overnight on 11/10 he developed significant hemoptysis. He is also noted to have worsening anemia. He underwent a CT of the chest which demonstrated bilateral pleural effusions with diffuse infiltrate throughout the right lung most typical of pneumonia or pneumonitis. Patient was started on Zithromax and Zosyn. Pulmonary was consulted. On the morning of 11/12 he continued to have some hemoptysis. Patient seen and examined at bedside. Still having some pain but in much better spirits with a better mood. Having some fogginess likely secondary to Neurontin use. States he is somewhat short of breath but slightly better than yesterday. Still having hemoptysis. No nausea or vomiting. Normal output from his ostomy. I described to the patient several times needing to obtain a sputum sample and how to perform this. Objective - Vital Signs Vital signs: Vital Signs Temp 97.4 F L 11/12/18 12:00 Pulse 102 H 11/12/18 12:00 Resp 18 11/12/18 12:00 BP 89/52 11/12/18 12:00 Pulse Ox 94 L 11/12/18 12:00 Intake & Output 11/11/18 11/12/18 11/12/18 18:59 06:59 18:59 Intake Total 840 222 Output Total 650 2850 Balance 190 -2850 222 Weight 64.5 kg Intake: Oral 840 222 Output: Urine 650 2250 Uretheral (Pollack) 250 750 Stool 600 Other: Voiding Method Urinal Urinal Indwelling Catheter - Exam General: non toxic, no distress, appears older than stated age, cachectic with temporal wasting Derm: warm, dry, multiple pock maria Head: atraumatic, normocephalic, symmetric Eyes: EOMI, no lid lag, anicteric sclera Mouth: no lip lesion, mucus membranes dry Cardiovascular: S1S2 regular, no murmur, positive posterior tibial pulse bilateral, Lungs: Crackles bilateral bases, no rhonchi, no rales , no accessory muscle use Abdominal: soft, nontender to palpation, no guarding, no appreciable organomegaly Ext: no gross muscle atrophy, no edema, no contractures Neuro: CN II-XI grossly intact, no focal neuro deficits Psych: Alert, oriented, appropriate affect - Labs CBC & Chem 7: 11/12/18 05:47 11/12/18 05:47 Labs: Abnormal Lab Results - Last 24 Hours (Table) 11/11/18 11/12/18 11/12/18 Range/Units 17:17 05:47 05:47 WBC 10.8 H (3.8-10.6) k/uL RBC 2.52 L (4.30-5.90) m/uL Hgb 9.0 L (13.0-17.5) gm/dL Hct 26.6 L (39.0-53.0) % MCV 105.8 H (80.0-100.0) fL MCH 35.8 H (25.0-35.0) pg RDW 16.0 H (11.5-15.5) % Sodium 131 L (137-145) mmol/L Carbon Dioxide 21 L (22-30) mmol/L Calcium 7.8 L (8.4-10.2) mg/dL Magnesium 1.4 L (1.6-2.3) mg/dL AST 16 L (17-59) U/L ALT 14 L (21-72) U/L Total Protein 4.3 L (6.3-8.2) g/dL Albumin 2.1 L (3.5-5.0) g/dL Urine Protein Trace H (Negative) Urine Blood Moderate H (Negative) Ur Leukocyte Esterase Moderate H (Negative) Urine RBC 47 H (0-5) /hpf Urine WBC 36 H (0-5) /hpf Urine Bacteria Many H (None) /hpf Urine Mucus Occasional H (None) /hpf Urine Sperm Many H (None) /hpf Microbiology - Last 24 Hours (Table) 11/10/18 08:05 Urine Culture - Final Urine,Catheterized Racheal albicans 11/11/18 17:17 Urine Culture - Preliminary Urine,Voided 11/06/18 18:22 Blood Culture - Preliminary Blood No Growth after 120 hours 11/06/18 15:25 Urine Culture - Final Urine,Catheterized Assessment and Plan Assessment: Hemoptysis -Was supratherapeutic on his heparin drip which has been stopped 11/10. Now PTT improved, still had hemoptysis, CT chest showed right sided infiltrate. Started on zithromax and aozsyn, Pulm consulted. -Follow CBC -CRP 170, concern for possible vasculitis component ANCA studies pending, Also check procalcitonin Suicidal ideation -Secondary to uncontrolled pain. Pain medication regimen has been optimized. -Await psychiatry recommendations: appears more related to current medical situation and pain control issues. Severe pain in lower extremity secondary to Reynauds and peripheral arterial disease -Vascular surgery recommendations appreciated. Proceed with medical management. Pletal was added -Continue with Percocet 10/325 as well as increased Neurontin dosing -Pain management recommendations appreciated Acute kidney injury secondary to dehydration -Near baseline -Nephrology recommendations appreciated Paroxysmal atrial fibrillation -Currently in sinus rhythm -No anticoagulation secondary to hemoptysis Alcohol abuse -[facility] protocol -Thiamine and folic acid supplementation Metabolic acidosis secondary to acute kidney injury -Continue with oral sodium bicarb -Continue to follow levels Elevated troponin -Acute coronary syndrome ruled out -[place] to be secondary to acute renal failure Hypokalemia and hypomagnesemia, resolved Hyponatremia, improved Dehydration, resolved COPD, chronic without exacerbation DVT prophylaxis: SCDs Discussed with: Patient, nursing, social work Anticipated discharge: 3-[address]: SNF vs MHU A total of 45 minutes was spent on the care of this complex patient more than 50% of the time was spent in counseling and care coordination.
--- NOTE | 2018-11-12 14:43 | P.CN ---
Psychiatric Consult - . Consult date: 11/12/18 Consult:: 11/12/18 14:30 IDENTIFYING DATA: Patient is a 63-year-old male with a long history of alcohol use who currently lives alone in an apartment is and has 1 kid collects Social Security. HPI: Patient presented to the hospital on 11/06/2018 for complaints of bilateral foot pain and was endorsing suicidal ideations. The patient was also found to have acute kidney injury and was treated with fluids, has been having hypot ension and there has been concern for peripheral artery disease with vascular surgery on work following the patient. Initially psychiatry was consulted on 11/06/2018 however patient was refusing to talk at that time and claims that he was in significant pain and dismissed the doctor from the room as he did not want to talk. Patient was reconsult ahead and seemed today for suicidal ideations and significant pain. Patient was watching TV when science writer approached patient be interviewed and patient was somewhat irritable however was directable and cooperative during the interview. Patient claims that "the same old stuff" and speaks of his ongoing pain which has improved somewhat in his feet mainly. Patient claims that he is eating well in the hospital and states "it's free food so I just eat it". Patient did endorse suicidal ideations during the interview and spoke about multiple loosely formed plans of "jump out the window" and "cut off my feet". These suicidal ideations and remarks were mainly related to patient's pain as science writer asked patient if his pain treatment was improved how he would feel and patient states that "I wouldn't kill myself". Patient did appear to be manipulative at times and demanding more help and pain medications. He denies any acute plans to hurt himself. He states that his sleep is poor and his appetite is fair energy level is good. He denies any access to guns or weapons at his house. Patient denies any homicidal ideations intent or plan. At this time patient denies any auditory or visual hallucinations. Patient denies any flight of ideas racing thoughts and increased in goal directed behavior. Patient admits to using alcohol drinking approximately 14 shots of liquor a day. He also admits to smoking cigarettes 2 packs a day. PAST PSYCHIATRIC HISTORY: Patient denies ever being admitted to psychiatric facility denies any previous suicide attempts. Patient denies seeing an outpatient psychiatrist in the past. Denies any psychotropic medications. PMH: COPD, hypertension, A. fib, Raynaud's. ALLERGIES: NKDA CHEMICAL DEPENDENCY HISTORY: As per HPI FAMILY PSYCHIATRIC/SUBSTANCE USE HISTORY: Denies SOCIAL HISTORY: Patient states that he grew up and raised in [facility]. 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 He states that he is has 1 kid who currently collects Social Security and lives alone in an apartment. MENTAL STATUS EXAM: General Appearance: Patient appears to be older than stated age, thin and frail and appears to have poor hygiene and grooming and is somewhat cooperative with interview. Behavior: [Patient is calmly lying in bed however is complaining about pain. Speech: Patient's speech is fluent and nonpressured. Mood/Affect: Patient reports their mood is "crappy", affect is congruent and constricted. Suicidality/Homicidality: Patient admits to suicidal ideations with loosely formed plans and no access to weapons. Denies any homicidal ideations intent or plan. Perceptions: Patient denies any auditory or visual hallucinations. Though content/process: There is no evidence of any delusional thought content and thought process is linear and goal-directed. Vision is preoccupied with his pain Memory and concentration: AOX3, grossly intact for the purposes of this session. Can spell "WORLD" backwards Judgment and insight: Poor IMPRESSIONS: Pain disorder with related psychological factors Depressive disorder unspecified Personality disorder unspecified PLAN: -At this time patient patient does NOT meet criteria for inpatient psychiatric admission. -Delirium precautions recommended with patient including - avoiding use of narcotics and [employer] sedatives, limit anticholinergic medications when possible, frequent re-orientation, minimize use of restraints, open window shades during the day and close them at night -Would recommend the following medication changes/additions: Patient is agreeable to start Cymbalta 30 mg daily with 1 dose now for mood and pain. This dose should be continued for approximately 1 week before being considered for increase/titration. Will also start melatonin 3 mg daily at bedtime for insomnia. Melatonin can be increased to 5 or 6 mg if patient is still having insomnia. -Continue 1:1 sitter for safety -Strongly encourage PT/OT and also should have a good disposition to possibly rehab or assisted-care/living facility. Strongly recommend that patient does not live on his own as he appears to not be able to care for himself. -Psychiatry will sign off at this point. Will be available to see patient as anurag arias. Thank you for the consult
[2018-11-12] MEDS: DULoxetine HCL 30 MG CAPSULE.DR PO SCH (16:45)
[2018-11-12] MEDS: AZITHROMYCIN 500 MG TAB PO SCH (16:45)
--- NOTE | 2018-11-12 18:54 | P.CNPUL ---
History of Present Illness Consult date: 11/12/18 Reason for consult: dyspnea, pleural effusion History of present illness: A 63-year-old male patient quite debilitated with multiple medical problems and comorbidities who initially came into the hospital because of foot pain. Note that the patient has multiple other medical issues and we will consult on the patient knowing that he has developed a worsening shortness of breath with bilateral pleural effusion and possible right lung pneumonia. This patient has history of COPD, coronary artery disease, hypertension, atrial fibrillation, pr evious complicated diverticulitis requiring and ostomy creation, history of peripheral vascular disease and the patient presented with pain in the lower extremity and there was a concern of a acute ischemic leg. The patient was having pain in his left foot and the patient had been done on for the past several months. He had also discolored toes which has been a chronic problem. The patient underwent further CT angiogram that showed atherosclerotic calcification throughout and on the right anterior tibial artery was occluded in the upper leg and there was two-vessel runoff into the foot through the peroneal artery and on the left there was a 2 vessel runoff into the foot through the peroneal artery also. The patient was started on Pletal and no further vascular intervention was planned for this patient. During the course of his treatment, the patient came in with a creatinine of 1.8. The patient was given IV fluids. Creatinine gradually improved with IV fluids. His troponins were slightly elevated at time of admission and gradually down trended. His acute kidney injury also improved. Echo of the heart showed mild LVH with an ejection fraction of 55-60% otherwise unremarkable. Cardiology evaluated the patient and no acute cardiac intervention is being planned. Nephrology also evaluated the patient and midodrine was added to optimize the blood pressure. He was complai gennaro of chronic pain for which pain management was involved. He was complaining of increased depression and threatening of suicide and for that reason a psychiatric evaluation was question and the patient was given a 24-hour sitter at the bedside. Subsequently the patient developed some hemoptysis. He was on IV heparin and the level was supratherapeutic. A CAT scan of the chest was done and showed bilateral pleural effusion and addition to diffuse infiltration of the right lung compared to the left consistent with either asymmetric pulmonary edema or right lung pneumonia. The patient was started on a combination of Zithromax and Zosyn. On the morning of 11/12/2018 the patient was having some limited hemoptysis still in small amounts. No nausea. No vomiting. No GI bleeding. No other complaints otherwise for now. He is not receiving any form of diuretics at this point in time. Review of Systems Constitutional: Reports chronic pain, Reports fatigue, Reports poor appetite, Reports weakness Eyes: denies as per HPI, denies blurred vision, denies bulging eye, denies decreased vision, denies diplopia, denies discharge, denies dry eye, denies irritation, denies itching, denies pain, denies photophobia, denies loss of peripheral vision, denies loss of vision, denies tunnel vision/blind spots Ears: deny: decreased hearing, ear discharge, earache, tinnitus Ears, nose, mouth and throat: Denies headache, Denies sore throat Breasts: absent: as per HPI, gynecomastia Cardiovascular: Reports claudication, Reports decreased exercise tolerance, Reports dyspnea on exertion, Reports irregular heart beat, Reports shortness of breath Respiratory: Reports cough, Reports hemoptysis Gastrointestinal: Denies abdominal pain, Denies diarrhea, Denies nausea, Denies vomiting Genitourinary: Reports as per HPI Musculoskeletal: Reports gait dysfunction, Reports muscle weakness Musculoskeletal: bilateral: foot pain, absent: ankle pain, ankle stiffness, ankle swelling, foot stiffness, foot swelling Integumentary: Reports as per HPI, Reports color changes, Reports darkening of skin Neurological: Reports as per HPI, Reports weakness Psychiatric: Reports as per HPI Endocrine: Reports as per HPI, Reports fatigue Hematologic/Lymphatic: Reports as per HPI Allergic/Immunologic: Reports as per HPI Past Medical History Past Medical History: Atrial Fibrillation, Coronary Artery Disease (CAD), COPD, Hypertension Additional Past Medical History / Comment(s): Coronary artery disease, reymundo pheral vascular disease, depression, paroxysmal atrial fibrillation, COPD, generalized chronic pain, history of multiple skeletal fractures including cervical fracture, history of complicated diverticulitis with bowel resection and colostomy and Karen pouch, history of bladder injury during surgery that required surgical repair, history of Raynaud's disease, Last Myocardial Infarction Date:: [facility] History of Any Multi-Drug Resistant Organisms: MRSA Date of last positivie culture/infection: 04/06/17 MRSA Confirmed at [facility] MDRO Source:: Abdomen Past Surgical History: Bowel Resection, Heart Catheterization With Stent Additional Past Surgical History / Comment(s): 11/2017 PCI with stent at [facility], colonoscopies, bowel resection with ileostomy, cystoscopy for bladder repair, abdominal abscess with surgical intervention, R inguinal hernia repair with mesh, R knee arthroscopy. Past Anesthesia/Blood Transfusion Reactions: No Reported Reaction Date of Last Stent Placement:: 12/06/17 Past Psychological History: Depression Smoking Status: Current every day smoker Past Alcohol Use History: Daily Past Drug Use History: Prescription Drug Abuse - Past Family History Father Family Medical History: Myocardial Infarction (IA) Additional Family Medical History / Comment(s): Father had 3 MIs, he had his first one at the age of 50 yrs. He at the age of 85 yrs. Mother Family Medical History: No Reported History Additional Family Medical History / Comment(s): Mother was healthy and lived to be 94 or 95 yrs old. Medications and Allergies Home Medications Medication Instructions Recorded Confirmed Type No Known Home Medications 11/09/18 11/09/18 History Allergies Allergy/AdvReac Type Severity Reaction Status Date / Time No Known Allergies Allergy Verified 11/06/18 14:49 Physical Exam Vitals: Vital Signs Temp Pulse Resp BP Pulse Ox 11/12/18 16:00 97.9 F 116 H 16 96/53 92 L 11/12/18 12:00 97.4 F L 102 H 18 89/52 94 L 11/12/18 08:00 84 16 95/52 97 11/12/18 04:00 98.8 F 119 H 20 81/43 93 L 11/12/18 00:00 97.2 F L 125 H 20 101/55 90 L 11/11/18 20:00 97.1 F L 119 H 20 80/49 96 Intake and Output 11/12/18 11/12/18 11/12/18 06:59 14:59 22:59 Intake Total 222 222 Output Total 2400 400 Balance -2400 -178 222 Intake: Oral 222 222 Output: Urine 2000 400 Uretheral (Pollack) 500 Stool 400 Other: Voiding Method Urinal Indwelling Catheter Indwelling Catheter Weight 64.5 kg Thin frail cachectic male patient, nonacute distress Head exam was generally normal. There was no scleral icterus or corneal arcus. Mucous membranes were moist. Neck was supple and without jugular venous distension, thyromegaly, or carotid bruits. Carotids were easily palpable bilaterally. There was no adenopathy. Lungs sounds are diminished in the mid and the lower lung noble bilaterally along with dullness to percussion the lung bases Cardiac exam revealed the PMI to be normally situated and sized. The rhythm was regular and no extrasystoles were noted during several minutes of auscultation. The first and second heart sounds were normal and physiologic splitting of the second heart sound was noted. There were no murmurs, rubs, clicks, or gallops. The patient diminished pulses in lower extremities bilaterally. Abdominal exam revealed normal bowel sounds. The abdomen was soft, non-tender, and without masses, organomegaly, or appreciable enlargement of the abdominal aorta. The patient has a colostomy which is functional and viable and intact at this point in time. No direct tenderness rebound tensile guarding. Extremities revealed diminished pulses. There is muscle atrophy. Her may be some cyanosis in the toes. No clubbing. Psychiatric the patient has underlying depression with some suicidal ideation and for that reason the patient has given a 24-hour sitter Neurologically patient is intact and moving all 4 extremities without any limitation Examination of the skin revealed no evidence of significant rashes, suspicious appearing nevi or other concerning lesions. No open wounds or sores Results - Laboratory Findings CBC and BMP: 11/12/18 05:47 11/12/18 05:47 PT/INR, D-dimer PT 10.0 sec (9.0-12.0) 11/11/18 07:14 INR 0.9 (<1.2) 11/11/18 07:14 Abnormal lab findings: Abnormal Labs 11/06/18 11/06/18 11/06/18 14:24 14:24 14:24 WBC 13.1 H RBC Hgb 17.9 H Hct MCV 103.3 H MCH RDW 16.2 H Plt Count Neutrophils # 10.3 H Lymphocytes # Monocytes # 1.2 H Macrocytosis APTT Sodium 125 L Potassium Chloride 91 L Carbon Dioxide 18 L BUN 48 H Creatinine 1.85 H Glucose 102 H Plasma Lactic Acid Mj Calcium Magnesium AST ALT 14 L CK-MB (CK-2) 11.6 H Troponin I 0.141 H* C-Reactive Protein Total Protein Albumin Urine Protein Urine Blood Ur Leukocyte Esterase Urine RBC Urine WBC Urine Bacteria Urine Mucus Urine Sperm Urine Opiates Screen 11/06/18 11/06/18 11/06/18 14:24 15:25 15:25 WBC RBC Hgb Hct MCV MCH RDW Plt Count Neutrophils # Lymphocytes # Monocytes # Macrocytosis APTT Sodium Potassium Chloride Carbon Dioxide BUN Creatinine Glucose Plasma Lactic Acid Mj 2.1 H* Calcium Magnesium AST ALT CK-MB (CK-2) Troponin I C-Reactive Protein Total Protein Albumin Urine Protein Trace H Urine Blood Ur Leukocyte Esterase Trace H Urine RBC Urine WBC 7 H Urine Bacteria Urine Mucus Rare H Urine Sperm Urine Opiates Screen Detected H 11/06/18 11/06/18 11/07/18 18:22 22:53 02:09 WBC RBC Hgb Hct MCV MCH RDW Plt Count Neutrophils # Lymphocytes # Monocytes # Macrocytosis APTT 37.7 H Sodium Potassium Chloride Carbon Dioxide BUN Creatinine Glucose Plasma Lactic Acid Mj 2.1 H* Calcium Magnesium AST ALT CK-MB (CK-2) Troponin I 0.166 H* C-Reactive Protein Total Protein Albumin Urine Protein Urine Blood Ur Leukocyte Esterase Urine RBC Urine WBC Urine Bacteria Urine Mucus Urine Sperm Urine Opiates Screen 11/07/18 11/07/18 11/07/18 07:32 07:32 07:32 WBC RBC 4.16 L Hgb Hct MCV 103.2 H MCH RDW 16.0 H Plt Count Neutrophils # Lymphocytes # Monocytes # 1.2 H Macrocytosis APTT >200.0 H* Sodium Potassium Chloride Carbon Dioxide BUN Creatinine Glucose Plasma Lactic Acid Mj Calcium Magnesium AST ALT CK-MB (CK-2) Troponin I 0.162 H* C-Reactive Protein Total Protein Albumin Urine Protein Urine Blood Ur Leukocyte Esterase Urine RBC Urine WBC Urine Bacteria Urine Mucus Urine Sperm Urine Opiates Screen 11/07/18 11/08/18 11/08/18 07:32 06:18 06:18 WBC RBC 3.76 L Hgb Hct MCV 104.8 H MCH RDW 16.0 H Plt Count Neutrophils # Lymphocytes # 0.9 L Monocytes # Macrocytosis APTT Sodium 129 L 134 L Potassium 3.0 L Chloride 110 H Carbon Dioxide 15 L 17 L BUN 41 H 30 H Creatinine 1.76 H 1.57 H Glucose Plasma Lactic Acid Mj Calcium Magnesium AST ALT CK-MB (CK-2) Troponin I C-Reactive Protein Total Protein Albumin Urine Protein Urine Blood Ur Leukocyte Esterase Urine RBC Urine WBC Urine Bacteria Urine Mucus Urine Sperm Urine Opiates Screen 11/09/18 11/09/18 11/09/18 01:12 05:57 05:57 WBC RBC 3.41 L Hgb 11.8 L Hct 36.0 L MCV 105.7 H MCH RDW 15.8 H Plt Count 148 L Neutrophils # 8.5 H Lymphocytes # Monocytes # Macrocytosis APTT >200.0 H* >200.0 H* Sodium Potassium Chloride Carbon Dioxide BUN Creatinine Glucose Plasma Lactic Acid Mj Calcium Magnesium AST ALT CK-MB (CK-2) Troponin I C-Reactive Protein Total Protein Albumin Urine Protein Urine Blood Ur Leukocyte Esterase Urine RBC Urine WBC Urine Bacteria Urine Mucus Urine Sperm Urine Opiates Screen 11/09/18 11/09/18 11/09/18 11:03 14:14 23:28 WBC RBC Hgb Hct MCV MCH RDW Plt Count Neutrophils # Lymphocytes # Monocytes # Macrocytosis APTT >200.0 H* 148.7 H* Sodium 134 L Potassium Chloride 115 H Carbon Dioxide 13 L BUN Creatinine Glucose Plasma Lactic Acid Mj Calcium 7.5 L Magnesium AST ALT 14 L CK-MB (CK-2) Troponin I C-Reactive Protein Total Protein 4.1 L Albumin 2.0 L Urine Protein Urine Blood Ur Leukocyte Esterase Urine RBC Urine WBC Urine Bacteria Urine Mucus Urine Sperm Urine Opiates Screen 11/10/18 11/10/18 11/10/18 01:33 09:07 09:07 WBC 10.9 H RBC 3.25 L Hgb 11.0 L Hct 34.3 L MCV 105.6 H MCH RDW Plt Count Neutrophils # 8.6 H Lymphocytes # 0.8 L Monocytes # Macrocytosis APTT 102.5 H* Sodium 134 L Potassium 3.3 L Chloride 111 H Carbon Dioxide 17 L BUN Creatinine Glucose 100 H Plasma Lactic Acid Mj Calcium 7.6 L Magnesium 1.1 L AST ALT CK-MB (CK-2) Troponin I C-Reactive Protein Total Protein Albumin Urine Protein Urine Blood Ur Leukocyte Esterase Urine RBC Urine WBC Urine Bacteria Urine Mucus Urine Sperm Urine Opiates Screen 11/10/18 11/11/18 11/11/18 09:07 05:59 05:59 WBC 11.0 H RBC 2.85 L Hgb 9.8 L Hct 30.1 L MCV 105.5 H MCH RDW 15.9 H Plt Count Neutrophils # 8.4 H Lymphocytes # 0.8 L Monocytes # 1.3 H Macrocytosis APTT 124.7 H* Sodium 133 L Potassium Chloride 108 H Carbon Dioxide 19 L BUN Creatinine Glucose Plasma Lactic Acid Mj Calcium 7.7 L Magnesium AST ALT CK-MB (CK-2) Troponin I C-Reactive Protein Total Protein Albumin Urine Protein Urine Blood Ur Leukocyte Esterase Urine RBC Urine WBC Urine Bacteria Urine Mucus Urine Sperm Urine Opiates Screen 11/11/18 11/11/18 11/11/18 05:59 07:14 12:09 WBC 13.6 H RBC 2.87 L Hgb 10.2 L Hct 30.8 L MCV 107.2 H MCH 35.6 H RDW 16.0 H Plt Count Neutrophils # Lymphocytes # Monocytes # Macrocytosis Marked A APTT 35.0 H Sodium Potassium Chloride Carbon Dioxide BUN Creatinine Glucose Plasma Lactic Acid Mj Calcium Magnesium AST ALT CK-MB (CK-2) Troponin I C-Reactive Protein 170.2 H Total Protein Albumin Urine Protein Urine Blood Ur Leukocyte Esterase Urine RBC Urine WBC Urine Bacteria Urine Mucus Urine Sperm Urine Opiates Screen 11/11/18 11/12/18 11/12/18 17:17 05:47 05:47 WBC 10.8 H RBC 2.52 L Hgb 9.0 L Hct 26.6 L MCV 105.8 H MCH 35.8 H RDW 16.0 H Plt Count Neutrophils # Lymphocytes # Monocytes # Macrocytosis APTT Sodium 131 L Potassium Chloride Carbon Dioxide 21 L BUN Creatinine Glucose Plasma Lactic Acid Mj Calcium 7.8 L Magnesium 1.4 L AST 16 L ALT 14 L CK-MB (CK-2) Troponin I C-Reactive Protein Total Protein 4.3 L Albumin 2.1 L Urine Protein Trace H Urine Blood Moderate H Ur Leukocyte Esterase Moderate H Urine RBC 47 H Urine WBC 36 H Urine Bacteria Many H Urine Mucus Occasional H Urine Sperm Many H Urine Opiates Screen - Diagnostic Findings Chest x-ray: image reviewed CT scan - chest: image reviewed Assessment and Plan Plan: 1 acute hypoxic respiratory failure with bilateral pleural effusions and asymmetric right lung consolidation consistent with either asymmetric pulmonary edema/heart failure versus right lung pneumonia 2 hemoptysis secondary to above, and has further by anticoagulation, currently inactive in stable 3 coronary artery disease 4 COPD 5 peripheral vascular disease with chronic pain lower extremities in addition to some cyanosis and Raynaud's phenomena 6 paroxysmal atrial fibrillation current rhythm is sinus 7 acute kidney injury recovered 8 troponin leak 9 dehydration/intravascular volume depletion, recovered 10 depression with suicidal intention/ideations currently on close observation with a bedside sitter and psychiatric evaluation was also requested Plan Agree on the current antibiotic coverage. This likely the patient may need thoracentesis specially remains symptomatic and there are no signs of improvement. I would recommend continuing the current antibiotic coverage. I favored fluid overload/CHF over pneumonia. We'll continue to monitor and make further recommendations based on his progress. If his blood pressure allows, diuresis is recommended. We'll discuss this with nephrology and the primary care team. Currently is off anticoagulants.
[2018-11-12] MEDS: MELATONIN 3 MG TABLET PO SCH (20:56)
[2018-11-12] MEDS: ATORVASTATIN 40 MG TAB PO SCH (20:56)
[2018-11-13] MEDS: THIAMINE 100 MG TAB PO SCH ×2 (06:25→17:04)
[2018-11-13] MEDS: MIDODRINE 5 MG TAB PO SCH ×3 (06:25→17:04)
[2018-11-13 06:42] LABS: HCT 26.7 % (39.0-53.0); HGB 9.1 gm/dL (13.0-17.5); MCH 35.5 pg (25.0-35.0); MCV 104.6 fL (80.0-100.0); Macrocytosis Moderate; Mean Platelet Volume 7.6; Platelet Count 192 k/uL (150-450); RBC 2.55 m/uL (4.30-5.90); WBC 8.1 k/uL (3.8-10.6)
[2018-11-13 06:55] LABS: Calcium 7.9 mg/dL (8.4-10.2); Magnesium 1.6 mg/dL (1.6-2.3); Potassium 2.8 mmol/L (3.5-5.1)
[2018-11-13] MEDS ORDERED: POTASSIUM CHLORIDE ER 20 MEQ TAB.ER PO STA (07:13)
[2018-11-13] MEDS: MAGNESIUM SULFATE-D5W PMX 1 GM in DEXTROSE/WATER 1 100ML.BAG IVPB SCH ×2 (08:51→13:46)
[2018-11-13] MEDS: PIPERACILLIN-TAZOBACTAM 3.375 GM in SODIUM CHLORIDE 0.9% 100 ML IVPB SCH ×3 (08:52→23:18)
[2018-11-13] MEDS: DULoxetine HCL 30 MG CAPSULE.DR PO SCH (08:52)
[2018-11-13] MEDS: DICYCLOMINE 10 MG CAP PO SCH ×3 (08:52→21:57)
[2018-11-13] MEDS: CILOSTAZOL 100 MG TAB PO SCH ×2 (08:52→21:57)
[2018-11-13] MEDS: PANTOPRAZOLE 40 MG/10 ML VIAL IVP SCH (08:53)
[2018-11-13] MEDS: NICOTINE 21MG/24HR PATCH TRANSDERM SCH (08:53)
[2018-11-13] MEDS: SODIUM BICARBONATE TAB 650 MG TAB PO SCH ×2 (08:53→21:57)
[2018-11-13] MEDS: GABAPENTIN 300 MG CAP PO SCH ×2 (08:53→21:57)
[2018-11-13] MEDS: MULTIVITAMINS, THERA 1 EACH TAB PO SCH (08:53)
[2018-11-13] MEDS: oxyCODONE-APAP 10-325MG 1 EACH TAB PO PRN ×3 (08:55→19:43)
--- NOTE | 2018-11-13 08:57 | XR ---
EXAMINATION TYPE: XR chest 1V portable DATE OF EXAM: 11/13/2018 COMPARISON: 11/10/2018 INDICATION: Pneumonia TECHNIQUE: Single frontal view of the chest is obtained. FINDINGS: The heart size is normal. The pulmonary vasculature is normal. There is diffuse increased lung markings to the right lung and at the left base. Findings appear to h ave some improvement over the interval. Continued follow-up is recommended. IMPRESSION: 1. Improving bibasilar and right upper lobe infiltrates.
[2018-11-13] MEDS: FLUDROCORTISONE 0.1 MG TAB PO SCH (09:01)
[2018-11-13] MEDS: HYDROCORTISONE 10 MG TAB PO SCH ×2 (09:01→21:57)
--- NOTE | 2018-11-13 09:31 | P.PN ---
Subjective Progress Note Date: 11/13/18 Principal diagnosis: foot pain Patient is a 63-year-old male past medical history of atrial fibrillation, COPD, hypertension, coronary artery disease with percutaneous in tervention, diverticulitis status post ostomy creation, or nonspecific syndrome, and generalized chronic pain who presented to the emergency department with complaints of suicidal ideation, left toe discoloration, and severe pain. In the ER he underwent an extensive evaluation. He was initially hypotensive at 82/64 but responded to IV fluids. Laboratory analysis showed a leukocytosis of 13.1, sodium 125, bicarbonate 18, BUN 48, and creatinine 1.85. Lactic acid was noted to be elevated at 2.1. Troponin was also elevated at 0.141. Chest x-ray showed findings of COPD and osteophyte formation with concern for possible increased risk of lung cancer. Follow-up CAT scan was recommended. He was admitted for possible cellulitis with sepsis of the left lower extremity and troponin elevation with history of coronary artery disease. He was started on IV fluids, troponins were trended, and Rocephin was started with concern for cellulitis. He was also started on normal saline due to his acute kidney injury. He was seen by vascular surgery who felt that the patient likely had significant peripheral arterial disease. Patient was on a heparin drip. Due to his elevated troponins he underwent an echocardiogram that showed mild LVH, ejection fraction 55-60% and was otherwise unremarkable. Cardiology felt his elevated troponin likely secondary to renal insufficiency. Nephrology was co nsulted and Midodrin was added to optimize blood pressures. His dose of oral sodium bicarb was increased. Lower extremity arterial imaging revealed normal ABIs. CTA with runoff was obtained which showed minor atherosclerotic calcifications with reconstruction. He is also found to have diffuse anasarca with bilateral pleural effusions and moderate free pelvic fluid. Patient continued not being able to handle the pain anymore and wanted to end it all. He initially would not see psychiatry. He stated his suicidal thoughts were secondary to pain. His Percocet was increased as well as his Neurontin. Pain management was consulted who agreed with these changes. Vascular surgery felt that he had reynauds Disease as he was getting adequate waves forms and small vessel disease. They recommended conservative treatment including Pletal, Calcium channel lula if BP stable. His heparin drip was stopped and was started on Eliquis by cardiology. Overnight on 9/4 he developed significant hemoptysis, His eliquis was stopped. He was noted to have worsening anemia. He underwent a CT of the chest which demonstrated bilateral pleural effusions with diffuse infiltrate throughout the right lung most typical of pneumonia or pneumonitis. He received lasix on 11/10, 11/11, and 11/12. Patient was started on Zithromax and Zosyn. Pulmonary was consulted, felt more consistent with fluid overload. On the morning of 11/12 he continued to have some hemoptysis. He continued to have low blod pressure and had been maximized on midodrine and florinef was added, cortisol was low normal at 6 in the morning. This was anticipated to be higher due to his acute illness. Cortef was added for possible adrenal insufficiency. Patient seen and examined at bedside. Complaining of pain and frustration. Wan ts to go to rehab to get stronger. No chest pain pain, still with some hemoptysis, minimal shortness of breath. No nausea. Objective - Vital Signs Vital signs: Vital Signs Temp 98.0 F 11/13/18 08:00 Pulse 101 H 11/13/18 08:00 Resp 16 11/13/18 08:00 BP 118/52 11/13/18 08:00 Pulse Ox 93 L 11/13/18 04:00 Intake & Output 11/12/18 11/13/18 11/13/18 18:59 06:59 18:59 Intake Total 444 480 Output Total 400 3150 Balance 44 -3150 480 Weight 63.5 kg Intake: Oral 444 480 Output: Urine 400 2950 Stool 200 Other: Voiding Method Indwelling Catheter Indwelling Catheter - Exam General: non toxic, no distress, appears older than stated age, cachectic with temporal wasting Derm: warm, dry, multiple pock maria Head: atraumatic, normocephalic, symmetric Eyes: EOMI, no lid lag, anicteric sclera Mouth: no lip lesion, mucus membranes dry Cardiovascular: S1S2 regular, no murmur, positive posterior tibial pulse bilateral, Lungs: Crackles bilateral bases, no rhonchi, no rales , no accessory muscle use Abdominal: soft, nontender to palpation, no guarding, no appreciable organomegaly Ext: no gross muscle atrophy, no edema, no contractures Neuro: CN II-XI grossly intact, no focal neuro deficits Psych: Alert, oriented, appropriate affect - Labs CBC & Chem 7: 11/13/18 05:57 11/13/18 05:57 Labs: Abnormal Lab Results - Last 24 Hours (Table) 11/12/18 11/12/18 11/13/18 Range/Units 05:47 14:54 05:57 WBC 10.8 H (3.8-10.6) k/uL RBC 2.52 L 2.55 L (4.30-5.90) m/uL Hgb 9.0 L 9.1 L (13.0-17.5) gm/dL Hct 26.6 L 26.7 L (39.0-53.0) % MCV 105.8 H 104.6 H (80.0-100.0) fL MCH 35.8 H 35.5 H (25.0-35.0) pg RDW 16.0 H 16.0 H (11.5-15.5) % Sodium (137-145) mmol/L Potassium (3.5-5.1) mmol/L Creatinine (0.66-1.25) mg/dL Calcium (8.4-10.2) mg/dL Procalcitonin 0.78 H (0.02-0.09) ng/mL 11/13/18 Range/Units 05:57 WBC (3.8-10.6) k/uL RBC (4.30-5.90) m/uL Hgb (13.0-17.5) gm/dL Hct (39.0-53.0) % MCV (80.0-100.0) fL MCH (25.0-35.0) pg RDW (11.5-15.5) % Sodium 131 L (137-145) mmol/L Potassium 2.8 L (3.5-5.1) mmol/L Creatinine 1.36 H (0.66-1.25) mg/dL Calcium 7.9 L (8.4-10.2) mg/dL Procalcitonin (0.02-0.09) ng/mL Microbiology - Last 24 Hours (Table) 11/12/18 13:55 Gram Stain - Preliminary Sputum Sputum Culture - Preliminary 11/06/18 18:22 Blood Culture - Final Blood No Growth after 144 hours 11/11/18 17:17 Urine Culture - Final Urine,Voided 11/10/18 08:05 Urine Culture - Final Urine,Catheterized Racheal albicans Assessment and Plan Assessment: Hemoptysis with infiltrate edema vs pneumonia -Was supratherapeutic on his heparin drip which has been stopped 11/10. Now PTT improved, still had hemoptysis, CT chest showed right sided infiltrate. Started on zithromax and aozsyn, Pulm recs appreciated. Possible thora today. -Follow CBC -CRP 170, concern for possible vasculitis component ANCA studies negative, procalcitonin was indeterminant at 0.78 but not highly suspicious for infection as less than 2. Severe pain in lower extremity secondary to Reynauds and peripheral arterial disease -Vascular surgery recommendations appreciated. Proceed with medical management. Pletal was added, no calcium channel lula due to low BP at this time. -Continue with Percocet 10/325 as well as increased Neurontin dosing -Pain management recommendations appreciated Suicidal ideation -Secondary to uncontrolled pain. Pain medication regimen has been optimized. -Psychiatry recommendations: no need for inpatient psych, occupational safety and health manager continued, cymbalta added at 30 mg daily may increase after 1 week, melatonin can be used for sleep. Acute kidney injury secondary to dehydration -No additional lasix, unless okayed by nephro -Avoid additional nephrotoxic agents -Near baseline -Nephrology recommendations appreciated Hypokalemia and hypomagnesemia - replace and recheck this afternoon Paroxysmal atrial fibrillation -Currently in sinus rhythm -No anticoagulation secondary to hemoptysis Alcohol abuse -[facility] protocol -Thiamine and folic acid supplementation Metabolic acidosis secondary to acute kidney injury -Continue with oral sodium bicarb -Continue to follow levels Elevated troponin -Acute coronary syndrome ruled out -[place] to be secondary to acute renal failure Hyponatremia, improved Dehydration, resolved COPD, chronic without exacerbation DVT prophylaxis: SCDs Discussed with: Patient, nursing, pulmonary Anticipated discharge: 3-[address]: SNF A total of 30 minutes was spent on the care of this complex patient more than 50% of the time was spent in counseling and care coordination.
--- NOTE | 2018-11-13 09:39 | P.PN ---
Subjective Patient is seen in follow for acute kidney injury. Renal function is slightly worse which is due to diuresis. Hemoptysis better. Oral intake is fair. No vomiting. No chest pain. Vital signs are stable. General: The patient appeared well nourished and normally developed. HEENT: Head exam is unremarkable. Neck is without jugular venous distension. LUNGS: Breath sounds decreased. HEART: Rate and Rhythm are regular. First and second heart sounds normal. No murmurs, rubs or gallops. ABDOMEN: Abdominal exam reveals normal bowel sounds. Non-tender and non- distended. No evidence of peritonitis. EXTREMITITES: No clubbing, cyanosis, or edema. Objective - Vital Signs Vital signs: Vital Signs Temp 98.0 F 11/13/18 08:00 Pulse 101 H 11/13/18 08:00 Resp 16 11/13/18 08:00 BP 118/52 11/13/18 08:00 Pulse Ox 93 L 11/13/18 04:00 Intake & Output 11/12/18 11/13/18 11/13/18 18:59 06:59 18:59 Intake Total 444 480 Output Total 400 3150 Balance 44 -3150 480 Weight 63.5 kg Intake: Oral 444 480 Output: Urine 400 2950 Stool 200 Other: Voiding Method Indwelling Catheter Indwelling Catheter - Labs CBC & Chem 7: 11/13/18 05:57 11/13/18 05:57 Labs: Abnormal Lab Results - Last 24 Hours (Table) 11/12/18 11/13/18 11/13/18 Range/Units 14:54 05:57 05:57 RBC 2.55 L (4.30-5.90) m/uL Hgb 9.1 L (13.0-17.5) gm/dL Hct 26.7 L (39.0-53.0) % MCV 104.6 H (80.0-100.0) fL MCH 35.5 H (25.0-35.0) pg RDW 16.0 H (11.5-15.5) % Sodium 131 L (137-145) mmol/L Potassium 2.8 L (3.5-5.1) mmol/L Creatinine 1.36 H (0.66-1.25) mg/dL Calcium 7.9 L (8.4-10.2) mg/dL Procalcitonin 0.78 H (0.02-0.09) ng/mL Microbiology - Last 24 Hours (Table) 11/12/18 13:55 Gram Stain - Preliminary Sputum Sputum Culture - Preliminary 11/06/18 18:22 Blood Culture - Final Blood No Growth after 144 hours 11/11/18 17:17 Urine Culture - Final Urine,Voided 11/10/18 08:05 Urine Culture - Final Urine,Catheterized Racheal albicans Assessment and Plan Plan: Assessment: 1. Acute kidney injury mostly prerenal improved with IV hydration. Creatinine was 1.85 on admission and is 1.36 today. Baseline creatinine near 1. Trace proteinuria noted on UA. 2. Hypotension due to intravascular volume depletion. A.m. cortisol level in the normal range. 3. Metabolic acidosis secondary to acute kidney injury and IV fluids. Better. Maintained on oral sodium bicarbonate. 4. Peripheral arterial disease. Status post CT and November 3. Vascular surgery following. No interventions planned at this time. 5. Alcohol abuse. 6. History of A. fib. 7. Hypomagnesemia from poor oral intake and alcohol abuse. Better. 8. Hypokalemia secondary to Cortef and Lasix. 9. Hemoptysis likely due to fluid overload and pneumonia. Anti-GBM negative. ANCA titers negative. Eliquis stopped. 10. Bilateral pleural effusions. Status post IV Lasix yesterday. Urine output close to 3.5 L in the last 24 hours. 11. Hypervolemic hyponatremia. Plan: Remains off IV fluids. Hold Lasix today. Maintain midodrine 10 mg 3 times daily. To be held if systolic blood pressure greater than 110. Replace potassium. 80 mEq today. Replace magnesium. 2 g IV today. Discontinue Florinef as he is on Cortef. Encouraged oral intake. 1200 mL fluid restriction. Avoid nephrotoxins. Continue to monitor renal function and urine output. Follow-up complement levels.
[2018-11-13] MEDS: POTASSIUM CHLORIDE 20 MEQ in WATER FOR INJECTION 1 100ML.BAG IVPB SCH ×2 (11:28→13:31)
[2018-11-13 12:03] LABS: Complement C3 72.1 mg/dL (80.0-207.0)
--- NOTE | 2018-11-13 13:51 | P.PN ---
Subjective Progress Note Date: 11/13/18 Principal diagnosis: Acute hypoxic respiratory failure secondary to bilateral pleural effusions and right lung consolidation. A 63-year-old male patient quite debilitated with multiple medical problems and comorbidities who initially came into the hospital because of foot pain. Note that the patient has multiple other medical issues and we will consult on the patient knowing that he has developed a worsening shortness of breath with bilateral pleural effusion and possible right lung pneumonia. This patient has history of COPD, coronary artery disease, hypertension, atrial fibrillation, previous complicated diverticulitis requiring and ostomy creation, history of peripheral vascular disease and the patient presented with pain in the lower extremity and there was a concern of a acute ischemic leg. The patient was having pain in his left foot and the patient had been done on for the past several months. He had also discolored toes which has been a chronic problem. The patient underwent further CT angiogram that showed atherosclerotic calcification throughout and on the right anterior tibial artery was occluded in the upper leg and there was two-vessel runoff into the foot through the peroneal artery and on the left there was a 2 vessel runoff into the foot through the peroneal artery also. The patient was started on Pletal and no further vascular intervention was planned for this patient. During the course of his treatment, the patient came in with a creatinine of 1.8. The patient was given IV fluids. Creatinine gradually improved with IV fluids. His troponins were slightly elevated at time of admission and gradually down trended. His acute kidney injury also improved. Echo of the heart showed mild LVH with an ejection fraction of 55-60% otherwise unremarkable. Cardiology evaluated the patient and no acute cardiac intervention is being planned. Nephrology also evaluated the patient and midodrine was added to optimize the blood pressure. He was complaining of chronic pain for which pain management was involved. He was complaining of increased depression and threatening of suicide and for that reason a psychiatric evaluation was question and the patient was given a 24-hour sitter at the bedside. Subsequently the patient developed some hemoptysis. He was on IV heparin and the level was supratherapeutic. A CAT scan of the chest was done and showed bilateral pleural effusion and addition to diffuse infiltration of the right lung compared to the left consistent with either asymmetric pulmonary edema or right lung pneumonia. The patient was started on a combination of Zithromax and Zosyn. On the morning of 11/12/2018 the patient was having some limited hemoptysis still in small amounts. No nausea. No vomiting. No GI bleeding. No other complaints otherwise for now. He is not receiving any form of diuretics at this point in time. The patient is seen today 11/13/2018 in follow-up on the selective care unit. He is currently sitting up in bed. Awake and alert in no acute distress. HEENT O2 saturations in the low 90s on 2 L/m per nasal cannula. He's been afebrile. Sputum culture pending. White count 8.1. Hemoglobin 9.1. Potassium 2.8. Creatinine 1.36. He is maintained on DuoNeb inhalations, Zosyn and azithromycin. Objective - Vital Signs Vital signs: Vital Signs Temp 98.0 F 11/13/18 08:00 Pulse 104 H 11/13/18 12:00 Resp 16 11/13/18 12:00 BP 117/64 11/13/18 11:23 Pulse Ox 93 L 11/13/18 11:23 Intake & Output 11/12/18 11/13/18 11/13/18 18:59 06:59 18:59 Intake Total 444 480 Output Total 400 3150 Balance 44 -3150 480 Weight 63.5 kg Intake: Oral 444 480 Output: Urine 400 2950 Stool 200 Other: Voiding Method Indwelling Catheter Indwelling Catheter Indwelling Catheter - Exam Thin frail cachectic male patient, no acute distress on 2 L/m per nasal cannula. Head exam was generally normal. There was no scleral icterus or corneal arcus. Mucous membranes were moist. Neck was supple and without jugular venous distension, thyromegaly, or carotid bruits. Carotids were easily palpable bilaterally. There was no adenopathy. Lungs sounds are diminished in the mid and the lower lung noble bilaterally along with dullness to percussion the lung bases Cardiac exam revealed the PMI to be normally situated and sized. The rhythm was regular and no extrasystoles were noted during several minutes of auscultation. The first and second heart sounds were normal and physiologic splitting of the second heart sound was noted. There were no murmurs, rubs, clicks, or gallops. The patient diminished pulses in lower extremities bilaterally. Abdominal exam revealed normal bowel sounds. The abdomen was soft, non-tender, and without masses, organomegaly, or appreciable enlargement of the abdominal aorta. The patient has a colostomy which is functional and viable and intact at this point in time. No direct tenderness rebound tensile guarding. Extremities revealed diminished pulses. There is muscle atrophy. Her may be some cyanosis in the toes. No clubbing. Psychiatric the patient has underlying depression with some suicidal ideation and for that reason the patient has given a 24-hour sitter Neurologically patient is intact and moving all 4 extremities without any limitation Examination of the skin revealed no evidence of significant rashes, suspicious appearing nevi or other concerning lesions. No open wounds or sores - Labs CBC & Chem 7: 11/13/18 05:57 11/13/18 05:57 Labs: Abnormal Lab Results - Last 24 Hours (Table) 11/12/18 11/12/18 11/13/18 Range/Units 12:45 14:54 05:57 RBC 2.55 L (4.30-5.90) m/uL Hgb 9.1 L (13.0-17.5) gm/dL Hct 26.7 L (39.0-53.0) % MCV 104.6 H (80.0-100.0) fL MCH 35.5 H (25.0-35.0) pg RDW 16.0 H (11.5-15.5) % Sodium (137-145) mmol/L Potassium (3.5-5.1) mmol/L Creatinine (0.66-1.25) mg/dL Calcium (8.4-10.2) mg/dL Procalcitonin 0.78 H (0.02-0.09) ng/mL Complement C3 72.1 L (80.0-207.0) mg/dL 11/13/18 Range/Units 05:57 RBC (4.30-5.90) m/uL Hgb (13.0-17.5) gm/dL Hct (39.0-53.0) % MCV (80.0-100.0) fL MCH (25.0-35.0) pg RDW (11.5-15.5) % Sodium 131 L (137-145) mmol/L Potassium 2.8 L (3.5-5.1) mmol/L Creatinine 1.36 H (0.66-1.25) mg/dL Calcium 7.9 L (8.4-10.2) mg/dL Procalcitonin (0.02-0.09) ng/mL Complement C3 (80.0-207.0) mg/dL Microbiology - Last 24 Hours (Table) 11/12/18 13:55 Gram Stain - Preliminary Sputum Sputum Culture - Preliminary 11/06/18 18:22 Blood Culture - Final Blood No Growth after 144 hours 11/11/18 17:17 Urine Culture - Final Urine,Voided 11/10/18 08:05 Urine Culture - Final Urine,Catheterized Racheal albicans Assessment and Plan Assessment: impression: 1 acute hypoxic respiratory failure with bilateral pleural effusions and asymmetric right lung consolidation consistent with either asymmetric pulmonary edema/heart failure versus right lung pneumonia 2 hemoptysis secondary to above, and has further by anticoagulation, currently inactive in stable 3 coronary artery disease 4 COPD 5 peripheral vascular disease with chronic pain lower extremities in addition to some cyanosis and Raynaud's phenomena 6 paroxysmal atrial fibrillation current rhythm is sinus 7 acute kidney injury recovered 8 troponin leak 9 dehydration/intravascular volume depletion, recovered 10 depression with suicidal intention/ideations currently on close observation with a bedside sitter and psychiatric evaluation was also requested Plan 1 The patient was seen and evaluated by Dr. York. Lung sounds are improved today as compared to yesterday. No plans for thoracentesis at this time. We'll continue with the current treatment plan. Replace electrolytes. We'll continue to follow. I, the cosigning physician, performed a history & physical examination of the patient. Lungs sounds crackles in the posterior bases, diminished. Maintaining good O2 saturations in the 90s on 2 L/m per nasal cannula. I discussed the assessment and plan of care with my nurse practitioner, Dana Stockton. I attest to the above note as dictated by her.
[2018-11-13] MEDS: AZITHROMYCIN 500 MG TAB PO SCH (15:39)
[2018-11-13 16:03] LABS: Magnesium 1.9 mg/dL (1.6-2.3)
[2018-11-13 16:10] LABS: Potassium 4.3 mmol/L (3.5-5.1)
[2018-11-13] MEDS: ATORVASTATIN 40 MG TAB PO SCH (21:57)
[2018-11-13] MEDS: MELATONIN 3 MG TABLET PO SCH (21:58)
[2018-11-14] MEDS: oxyCODONE-APAP 10-325MG 1 EACH TAB PO PRN ×3 (00:35→23:22)
[2018-11-14] MEDS: THIAMINE 100 MG TAB PO SCH ×2 (06:27→16:30)
[2018-11-14] MEDS: MIDODRINE 5 MG TAB PO SCH ×3 (06:27→16:29)
[2018-11-14 07:21] LABS: Calcium 8.3 mg/dL (8.4-10.2); Magnesium 1.8 mg/dL (1.6-2.3); Potassium 3.9 mmol/L (3.5-5.1)
[2018-11-14 07:27] LABS: Basophils % (A) 1 %; Eosinophils # (A) 0.2 k/uL (0-0.7); Eosinophils % (A) 3 %; HCT 25.2 % (39.0-53.0); HGB 8.3 gm/dL (13.0-17.5); Lymphocytes # (A) 0.7 k/uL (1.0-4.8); Lymphocytes % (A) 14 %; MCH 34.4 pg (25.0-35.0); MCV 104.5 fL (80.0-100.0); Macrocytosis Moderate; Mean Platelet Volume 7.7; Monocytes # (A) 0.7 k/uL (0-1.0); Monocytes % (A) 12 %; Neutrophils # (A) 3.6 k/uL (1.3-7.7); Neutrophils % (A) 68 %; Platelet Count 231 k/uL (150-450); RBC 2.42 m/uL (4.30-5.90); RDW 15.8 % (11.5-15.5); WBC 5.3 k/uL (3.8-10.6)
[2018-11-14] MEDS: PANTOPRAZOLE 40 MG/10 ML VIAL IVP SCH (07:59)
[2018-11-14] MEDS: MULTIVITAMINS, THERA 1 EACH TAB PO SCH (08:00)
[2018-11-14] MEDS: SODIUM BICARBONATE TAB 650 MG TAB PO SCH ×2 (08:00→21:12)
[2018-11-14] MEDS: PIPERACILLIN-TAZOBACTAM 3.375 GM in SODIUM CHLORIDE 0.9% 100 ML IVPB SCH ×3 (08:00→23:03)
[2018-11-14] MEDS: DULoxetine HCL 30 MG CAPSULE.DR PO SCH (08:00)
[2018-11-14] MEDS: GABAPENTIN 300 MG CAP PO SCH ×3 (08:00→21:12)
[2018-11-14] MEDS: DICYCLOMINE 10 MG CAP PO SCH ×3 (08:00→21:12)
[2018-11-14] MEDS: CILOSTAZOL 100 MG TAB PO SCH ×2 (08:00→21:12)
[2018-11-14] MEDS: FLUDROCORTISONE 0.1 MG TAB PO SCH (08:01)
[2018-11-14] MEDS: HYDROCORTISONE 10 MG TAB PO SCH (08:04)
[2018-11-14] MEDS: NICOTINE 21MG/24HR PATCH TRANSDERM SCH (08:18)
--- NOTE | 2018-11-14 09:47 | P.PN ---
Subjective Progress Note Date: 11/14/18 Principal diagnosis: foot pain Patient is a 63-year-old male past medical history of atrial fibrillation, COPD, hypertension, coronary artery disease with percutaneous in tervention, diverticulitis status post ostomy creation, Reynaud's syndrome, and generalized chronic pain who presented to the emergency department with complaints of suicidal ideation, left toe discoloration, and severe pain. In the ER he underwent an extensive evaluation. He was initially hypotensive at 82/64 but responded to IV fluids. Laboratory analysis showed a leukocytosis of 13.1, sodium 125, bicarbonate 18, BUN 48, and creatinine 1.85. Lactic acid was noted to be elevated at 2.1. Troponin was also elevated at 0.141. Chest x-ray showed findings of COPD and osteophyte formation with concern for possible increased risk of lung cancer. Follow-up CT scan was recommended. He was ad mitted for possible cellulitis with sepsis of the left lower extremity and troponin elevation with history of coronary artery disease. He was started on IV fluids, troponins were trended, and Rocephin was started with concern for cellulitis. He was also started on normal saline due to his acute kidney injury. He was seen by vascular surgery who felt that the patient likely had significant peripheral arterial disease. Patient was on a heparin drip. Due to his elevated troponins he underwent an echocardiogram that showed mild LVH, ejection fraction 55-60% and was otherwise unremarkable. Cardiology felt his elevated troponin likely secondary to renal insufficiency. Nephrology was consulted and Midodrin was added to optimize blood pressures. His dose of oral sodium bicarb was increased. Lower extremity arterial imaging revealed normal ABIs. CTA with runoff was obtained which showed minor atherosclerotic calcifications with reconstruction. He is also found to have diffuse anasarca with bilateral pleural effusions and moderate free pelvic fluid. Patient continued not being able to handle the pain anymore and wanted to end it all. He initially would not see psychiatry. He stated his suicidal thoughts were secondary to pain. His Percocet was increased as well as his Neurontin. Pain management was consulted who agreed with these changes. Vascular surgery felt that he had reynauds Disease as he was getting adequate waves forms and small vessel disease. They recommended conservative treatment including Pletal, Calcium channel lula if BP stable. His heparin drip was stopped and was started on Eliquis by cardiology. Overnight on 11/10 he developed significant hemoptysis, His eliquis was stopped. He was noted to have worsening anemia. He underwent a CT of the chest which demonstrated bilateral pleural effusions with diffuse infiltrate throughout the right lung most typical of pneumonia or pneumonitis. He received lasix on 11/10, 11/11, and 11/12. Patient was started on Zithromax and Zosyn. Pulmonary was consulted, felt more consistent with fluid overload. On the morning of 11/12 he continued to have some hemoptysis. He continued to have low blood pressure and had been maximized on midodrine and florinef was added, cortisol was low normal at 6 in the morning. This was anticipated to be higher due to his acute illness. Cortef was added for possible adrenal insufficiency. He was seen by psychiatry and was determined he does not require inpatient psychiatric hospitalization. Patient seen and examined at bedside. No chest pain, shortness breath. Still r eports to be coughing up blood. No nausea or vomiting. No increased output from ostomy. Still complains of pain in his feet and not being able to tolerate it. Again states that his pain was better he would not kill himself. Objective - Vital Signs Vital signs: Vital Signs Temp 97.7 F 11/13/18 20:00 Pulse 81 11/14/18 04:00 Resp 17 11/14/18 04:00 BP 99/58 11/14/18 06:30 Pulse Ox 95 11/14/18 04:00 Intake & Output 11/13/18 11/14/18 11/14/18 18:59 06:59 18:59 Intake Total 702 200 Output Total 700 200 Balance 2 -200 200 Weight 62.5 kg Intake: Oral 702 200 Output: Urine 700 Stool 200 Other: Voiding Method Indwelling Catheter Indwelling Catheter - Exam General: non toxic, no distress, appears older than stated age, cachectic with temporal wasting Derm: warm, dry, multiple pock maria Head: atraumatic, normocephalic, symmetric Eyes: EOMI, no lid lag, anicteric sclera Mouth: no lip lesion, mucus membranes dry Cardiovascular: S1S2 regular, no murmur, positive posterior tibial pulse bilateral, Lungs: Crackles bilateral bases, no rhonchi, no rales , no accessory muscle use Abdominal: soft, nontender to palpation, no guarding, no appreciable organomegaly Ext: no gross muscle atrophy, no edema, no contractures Neuro: CN II-XI grossly intact, no focal neuro deficits Psych: Alert, oriented, appropriate affect - Labs CBC & Chem 7: 11/14/18 06:08 11/14/18 06:08 Labs: Abnormal Lab Results - Last 24 Hours (Table) 11/12/18 11/13/18 11/13/18 Range/Units 12:45 15:34 15:34 RBC (4.30-5.90) m/uL Hgb (13.0-17.5) gm/dL Hct (39.0-53.0) % MCV (80.0-100.0) fL RDW (11.5-15.5) % Lymphocytes # (1.0-4.8) k/uL Sodium 129 L (137-145) mmol/L Chloride (98-107) mmol/L Calcium (8.4-10.2) mg/dL Procalcitonin 0.55 H (0.02-0.09) ng/mL Complement C3 72.1 L (80.0-207.0) mg/dL 11/14/18 11/14/18 Range/Units 06:08 06:08 RBC 2.42 L (4.30-5.90) m/uL Hgb 8.3 L (13.0-17.5) gm/dL Hct 25.2 L (39.0-53.0) % MCV 104.5 H (80.0-100.0) fL RDW 15.8 H (11.5-15.5) % Lymphocytes # 0.7 L (1.0-4.8) k/uL Sodium 130 L (137-145) mmol/L Chloride 97 L (98-107) mmol/L Calcium 8.3 L (8.4-10.2) mg/dL Procalcitonin (0.02-0.09) ng/mL Complement C3 (80.0-207.0) mg/dL Microbiology - Last 24 Hours (Table) 11/12/18 13:55 Gram Stain - Preliminary Sputum Sputum Culture - Preliminary Assessment and Plan Assessment: Hemoptysis with infiltrate edema vs pneumonia -Nursing to monitor for hemoptysis, d/w nurse. -Was supratherapeutic on his heparin drip which has been stopped 11/10. Now PTT improved, still had hemoptysis, CT chest showed right sided infiltrate. Started on zithromax and aozsyn, Pulm recs appreciated. Possible thora today. -Follow CBC -CRP 170, concern for possible vasculitis component ANCA studies negative, procalcitonin was indeterminant at 0.78 but not highly suspicious for infection as less than 2. Severe pain in lower extremity secondary to Reynauds and peripheral arterial disease -Vascular surgery recommendations appreciated. Proceed with medical management. Pletal was added, no calcium channel lula due to low BP at this time. -Continue with Percocet 10/325 as well as increased Neurontin dosing- increase again to TID -Pain management recommendations appreciated Hypotension - relative adrenal insufficiency with AM cortisol 6 - trial of IV cortef 50 TID - on max dose of midodrine Acute kidney injury secondary to dehydration -Avoid additional nephrotoxic agents -Near baseline -Nephrology recommendations appreciated Suicidal ideation -Secondary to uncontrolled pain. Pain medication regimen has been optimized. 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 Paroxysmal atrial fibrillation -Currently in sinus rhythm -No anticoagulation secondary to hemoptysis Alcohol abuse -[facility] protocol -Thiamine and folic acid supplementation Metabolic acidosis secondary to acute kidney injury, improved -Continue with oral sodium bicarb -Continue to follow levels Elevated troponin -Acute coronary syndrome ruled out -[place] to be secondary to acute renal failure Hyponatremia, improved Dehydration, resolved COPD, chronic without exacerbation Hypokalemia and hypomagnesemia, improved DVT prophylaxis: SCDs Discussed with: Patient, nursing, Nephro Anticipated discharge: 3-[address]: SNF A total of 30 minutes was spent on the care of this complex patient more than 50% of the time was spent in counseling and care coordination.
--- NOTE | 2018-11-14 10:24 | P.PN ---
Subjective Patient is seen in follow for acute kidney injury. Renal function is a little better today. Still coughing up blood. Oral intake is fair. No vomiting. No chest pain. Vital signs are stable. General: The patient appeared well nourished and normally developed. HEENT: Head exam is unremarkable. Neck is without jugular venous distension. LUNGS: Breath sounds decreased. HEART: Rate and Rhythm are regular. First and second heart sounds normal. No murmurs, rubs or gallops. ABDOMEN: Abdominal exam reveals normal bowel sounds. Non-tender and non- distended. No evidence of peritonitis. EXTREMITITES: No clubbing, cyanosis, or edema. Objective - Vital Signs Vital signs: Vital Signs Temp 97.9 F 11/14/18 08:00 Pulse 91 11/14/18 08:00 Resp 18 11/14/18 08:00 BP 89/51 11/14/18 08:00 Pulse Ox 90 L 11/14/18 08:00 Intake & Output 11/13/18 11/14/18 11/14/18 18:59 06:59 18:59 Intake Total 702 200 Output Total 700 200 Balance 2 -200 200 Weight 62.5 kg Intake: Oral 702 200 Output: Urine 700 Stool 200 Other: Voiding Method Indwelling Catheter Indwelling Catheter Indwelling Catheter - Labs CBC & Chem 7: 11/14/18 06:08 11/14/18 06:08 Labs: Abnormal Lab Results - Last 24 Hours (Table) 11/12/18 11/13/18 11/13/18 Range/Units 12:45 15:34 15:34 RBC (4.30-5.90) m/uL Hgb (13.0-17.5) gm/dL Hct (39.0-53.0) % MCV (80.0-100.0) fL RDW (11.5-15.5) % Lymphocytes # (1.0-4.8) k/uL Sodium 129 L (137-145) mmol/L Chloride (98-107) mmol/L Calcium (8.4-10.2) mg/dL Procalcitonin 0.55 H (0.02-0.09) ng/mL Complement C3 72.1 L (80.0-207.0) mg/dL 11/14/18 11/14/18 Range/Units 06:08 06:08 RBC 2.42 L (4.30-5.90) m/uL Hgb 8.3 L (13.0-17.5) gm/dL Hct 25.2 L (39.0-53.0) % MCV 104.5 H (80.0-100.0) fL RDW 15.8 H (11.5-15.5) % Lymphocytes # 0.7 L (1.0-4.8) k/uL Sodium 130 L (137-145) mmol/L Chloride 97 L (98-107) mmol/L Calcium 8.3 L (8.4-10.2) mg/dL Procalcitonin (0.02-0.09) ng/mL Complement C3 (80.0-207.0) mg/dL Microbiology - Last 24 Hours (Table) 11/12/18 13:55 Gram Stain - Preliminary Sputum Sputum Culture - Preliminary Assessment and Plan Plan: Assessment: 1. Acute kidney injury mostly prerenal due to hypotension and infection improved with IV hydration. Creatinine was 1.85 on admission and is 1.21 today. Baseline creatinine near 1. Trace proteinuria noted on UA. C3 little on lower side. Doubt GN as initial UA was quite benign. 2. Hypotension due to intravascular volume depletion. A.m. cortisol level in the normal range but on lower side. On midodrine and cortef. 3. Metabolic acidosis secondary to acute kidney injury and IV fluids. Better. Maintained on oral sodium bicarbonate. 4. Peripheral arterial disease. Status post CT and November 3. Vascular surgery following. No interventions planned at this time. 5. Alcohol abuse. 6. History of A. fib. 7. Hypomagnesemia from poor oral intake and alcohol abuse. Better. 8. Hypokalemia secondary to Cortef and Lasix. Better. 9. Hemoptysis likely due to fluid overload and pneumonia. Anti-GBM negative. ANCA titers negative. Eliquis stopped. 10. Bilateral pleural effusions. Status post IV Lasix yesterday. Urine output close to 3.5 L in the last 24 hours. 11. Hypervolemic hyponatremia. Stable. 12. Urinary retention. Has key. Plan: Remains off IV fluids. Hold Lasix today. Maintain midodrine 10 mg 3 times daily. To be held if systolic blood pressure greater than 110. Will be started on IV steroids for hypotension. Encouraged oral intake. 1200 mL fluid restriction. Avoid nephrotoxins. Continue to monitor renal function and urine output. Key to be discontinued today; monitor serial PVRs.
--- NOTE | 2018-11-14 11:36 | XR ---
EXAMINATION TYPE: XR chest 1V DATE OF EXAM: 11/14/2018 COMPARISON: 11/13/2018 HISTORY: Hemoptysis and pneumonia TECHNIQUE: Single frontal view of the chest is obtained. FINDINGS: There is increasing confluence of the perihilar opacities and right upper lobe opacity as well as the bibasilar opacities with persistent small bilateral pleural effusions. Pulmonary hyperinf lation is noted on the basis of underlying COPD. Diffuse osseous demineralization is seen. Cardiomedi astinal silhouette appears stable. IMPRESSION: Increasing confluence of the multifocal opacities most compatible with multifocal pneumo trip and small parapneumonic effusions. Follow-up to resolution is recommended.
--- NOTE | 2018-11-14 13:03 | P.PN ---
Subjective Progress Note Date: 11/14/18 A 63-year-old male patient quite debilitated with multiple medical problems and comorbidities who initially came into the hospital because of foot pain. Note that the patient has multiple other medical issues and we will consult on the patient knowing that he has developed a worsening shortness of breath with bilateral pleural effusion and possible right lung pneumonia. This patient has history of COPD, coronary artery disease, hypertension, atrial fibrillation, previous complicated diverticulitis requiring and ostomy creation, history of peripheral vascular disease and the patient presented with pain in the lower extremity and there was a concern of a acute ischemic leg. The patient was hav ing pain in his left foot and the patient had been done on for the past several months. He had also discolored toes which has been a chronic problem. The patient underwent further CT angiogram that showed atherosclerotic calcification throughout and on the right anterior tibial artery was occluded in the upper leg and there was two-vessel runoff into the foot through the peroneal artery and on the left there was a 2 vessel runoff into the foot through the peroneal artery also. The patient was started on Pletal and no further vascular intervention was planned for this patient. During the course of his treatment, the patient came in with a creatinine of 1.8. The patient was given IV fluids. Creatinine gradually improved with IV fluids. His troponins were slightly elevated at time of admission and gradually down trended. His acute kidney injury also improved. Echo of the heart showed mild LVH with an ejection fraction of 55-60% otherwise unremarkable. Cardiology evaluated the patient and no acute cardiac intervention is being planned. Nephrology also evaluated the patient and midodrine was added to optimize the blood pressure. He was complaining of chronic pain for which pain management was involved. He was complaining of increased depression and threatening of suicide and for that reason a psychiatric evaluation was question and the patient was given a 24-hour sitter at the bedside. Subsequently the patient developed some hemoptysis. He was on IV heparin and the level was supratherapeutic. A CAT scan of the chest was done and showed bilateral pleural effusion and addition to diffuse infiltration of the right lung compared to the left consistent with either asymmetric pulmonary edema or right lung pneumonia. The patient was started on a combination of Zith romax and Zosyn. On the morning of 11/12/2018 the patient was having some limited hemoptysis still in small amounts. No nausea. No vomiting. No GI bleeding. No other complaints otherwise for now. He is not receiving any form of diuretics at this point in time. The patient is seen today 11/13/2018 in follow-up on the selective care unit. He is currently sitting up in bed. Awake and alert in no acute distress. HEENT O2 saturations in the low 90s on 2 L/m per nasal cannula. He's been afebrile. Sputum culture pending. White count 8.1. Hemoglobin 9.1. Potassium 2.8. Creatinine 1.36. He is maintained on DuoNeb inhalations, Zosyn and azithromycin. On 11/14/2018 the patient is resting comfortably in bed. Nevertheless she is still cough and not bloody mucus. A repeat chest x-ray was done today showed increased confluence and multifocal opacities most compatible with multilobar pneumonia. He remains on a combination of Zosyn and Zithromax. I do suspect a component of fluid/CHF/interstitial edema as the patient has also bilateral pleural effusion. He'll be started on Lasix today. Despite this worsening in his chest x-ray findings, his white blood count remains nonelevated at 5.3. Hemoglobin is at 8.3. His renal function stable with a creatinine of 1.2. Sputum sample that was sent for Gram stain and culture and the results are still pending for now. He continues to have a depressed mood and there is a 24 hour sitter at the bedside at all times. Objective - Vital Signs Vital signs: Vital Signs Temp 97.9 F 11/14/18 08:00 Pulse 91 11/14/18 08:00 Resp 18 11/14/18 08:00 BP 89/51 11/14/18 08:00 Pulse Ox 90 L 11/14/18 08:00 Intake & Output 11/13/18 11/14/18 11/14/18 18:59 06:59 18:59 Intake Total 702 200 Output Total 700 200 500 Balance 2 -200 -300 Weight 62.5 kg Intake: Oral 702 200 Output: Urine 700 500 Stool 200 Other: Voiding Method Indwelling Catheter Indwelling Catheter Indwelling Catheter # Bowel Movements 100 - Exam Thin frail cachectic male patient, no acute distress on 2 L/m per nasal cannula. Head exam was generally normal. There was no scleral icterus or corneal arcus. Mucous membranes were moist. Neck was supple and without jugular venous distension, thyromegaly, or carotid bruits. Carotids were easily palpable bilaterally. There was no adenopathy. Lungs sounds are diminished in the mid and the lower lung noble bilaterally along with dullness to percussion the lung bases Cardiac exam revealed the PMI to be normally situated and sized. The rhythm was regular and no extrasystoles were noted during several minutes of auscultation. The first and second heart sounds were normal and physiologic splitting of the second heart sound was noted. There were no murmurs, rubs, clicks, or gallops. The patient diminished pulses in lower extremities bilaterally. Abdominal exam revealed normal bowel sounds. The abdomen was soft, non-tender, and without masses, organomegaly, or appreciable enlargement of the abdominal aorta. The patient has a colostomy which is functional and viable and intact at this point in time. No direct tenderness rebound tensile guarding. Extremities revealed diminished pulses. There is muscle atrophy. Her may be some cyanosis in the toes. No clubbing. Psychiatric the patient has underlying depression with some suicidal ideation and for that reason the patient has given a 24-hour sitter Neurologically patient is intact and moving all 4 extremities without any limitation Examination of the skin revealed no evidence of significant rashes, suspicious appearing nevi or other concerning lesions. No open wounds or sores - Labs CBC & Chem 7: 11/14/18 06:08 11/14/18 06:08 Labs: Abnormal Lab Results - Last 24 Hours (Table) 11/13/18 11/13/18 11/14/18 Range/Units 15:34 15:34 06:08 RBC 2.42 L (4.30-5.90) m/uL Hgb 8.3 L (13.0-17.5) gm/dL Hct 25.2 L (39.0-53.0) % MCV 104.5 H (80.0-100.0) fL RDW 15.8 H (11.5-15.5) % Lymphocytes # 0.7 L (1.0-4.8) k/uL Sodium 129 L (137-145) mmol/L Chloride (98-107) mmol/L Calcium (8.4-10.2) mg/dL Procalcitonin 0.55 H (0.02-0.09) ng/mL 11/14/18 Range/Units 06:08 RBC (4.30-5.90) m/uL Hgb (13.0-17.5) gm/dL Hct (39.0-53.0) % MCV (80.0-100.0) fL RDW (11.5-15.5) % Lymphocytes # (1.0-4.8) k/uL Sodium 130 L (137-145) mmol/L Chloride 97 L (98-107) mmol/L Calcium 8.3 L (8.4-10.2) mg/dL Procalcitonin (0.02-0.09) ng/mL Microbiology - Last 24 Hours (Table) 11/12/18 13:55 Gram Stain - Preliminary Sputum Sputum Culture - Preliminary Assessment and Plan Plan: 1 acute hypoxic respiratory failure with bilateral pleural effusions and asymmetric right lung consolidation consistent with either asymmetric pulmonary edema/heart failure versus right lung pneumonia. The patient continues to have hemoptysis and the patient is having worsening in bilateral pulmonary infiltrates and bilateral pleural effusion on today's chest x-ray. Remains and accommodation of Zithromax and Zosyn. Sputum has been sent for Gram stain and culture and the results are still pending for now. 2 hemoptysis secondary to above, and has further by anticoagulation, currently inactive in stable 3 coronary artery disease 4 COPD 5 peripheral vascular disease with chronic pain lower extremities in addition to some cyanosis and Raynaud's phenomena 6 paroxysmal atrial fibrillation current rhythm is sinus 7 acute kidney injury recovered 8 troponin leak 9 dehydration/intravascular volume depletion, recovered 10 depression with suicidal intention/ideations currently on close observation with a bedside sitter and psychiatric evaluation was also requested Plan I'm going to start the patient on diuretics. He was started on Lasix 40 mg IV push every 24 hours. His lactate fluid that this is a true pneumonia versus interstitial edema. The patient has bilateral pleural effusions. Will be given a trial of diuretics and he'll be monitored very closely. Meanwhile sputum has been sent for Gram stain and cultures. Continue same antibiotic coverage and modified antibiotics based on the sputum cultures. We'll continue to follow. The patient's examination. No anticoagulants for now. Rest of the management her medicine. Long-term prognosis poor baseline above-mentioned comorbidities.
[2018-11-14] MEDS: AZITHROMYCIN 500 MG TAB PO SCH (16:29)
[2018-11-14] MEDS: HYDROCORTISONE SUCCINATE 100 MG/2 ML VIAL IV SCH ×2 (16:30→23:03)
[2018-11-14] MEDS: MELATONIN 3 MG TABLET PO SCH (21:12)
[2018-11-14] MEDS: ATORVASTATIN 40 MG TAB PO SCH (21:12)
[2018-11-15] MEDS: MIDODRINE 5 MG TAB PO SCH ×3 (06:00→16:54)
[2018-11-15] MEDS: THIAMINE 100 MG TAB PO SCH ×2 (06:00→16:54)
[2018-11-15 06:29] LABS: HCT 26.2 % (39.0-53.0); HGB 8.6 gm/dL (13.0-17.5); MCHC 32.7 g/dL (31.0-37.0); Macrocytosis Moderate; Mean Platelet Volume 7.8; Platelet Count 272 k/uL (150-450); RBC 2.52 m/uL (4.30-5.90); RDW 15.6 % (11.5-15.5); WBC 4.5 k/uL (3.8-10.6)
[2018-11-15 07:04] LABS: Calcium 8.3 mg/dL (8.4-10.2); Potassium 4.2 mmol/L (3.5-5.1)
[2018-11-15] MEDS: NICOTINE 21MG/24HR PATCH TRANSDERM SCH (08:33)
[2018-11-15] MEDS: PANTOPRAZOLE 40 MG/10 ML VIAL IVP SCH (08:33)
[2018-11-15] MEDS: DULoxetine HCL 30 MG CAPSULE.DR PO SCH (08:34)
[2018-11-15] MEDS: PIPERACILLIN-TAZOBACTAM 3.375 GM in SODIUM CHLORIDE 0.9% 100 ML IVPB SCH ×3 (08:34→23:20)
[2018-11-15] MEDS: HYDROCORTISONE SUCCINATE 100 MG/2 ML VIAL IV SCH ×3 (08:34→20:48)
[2018-11-15] MEDS: MULTIVITAMINS, THERA 1 EACH TAB PO SCH (08:34)
[2018-11-15] MEDS: GABAPENTIN 300 MG CAP PO SCH ×3 (08:34→20:37)
[2018-11-15] MEDS: SODIUM BICARBONATE TAB 650 MG TAB PO SCH ×2 (08:35→20:37)
[2018-11-15] MEDS: oxyCODONE-APAP 10-325MG 1 EACH TAB PO PRN (08:35)
[2018-11-15] MEDS: AZITHROMYCIN 500 MG TAB PO SCH (08:35)
[2018-11-15] MEDS: CILOSTAZOL 100 MG TAB PO SCH ×2 (08:36→20:37)
[2018-11-15] MEDS: DICYCLOMINE 10 MG CAP PO SCH ×3 (08:36→20:37)
--- NOTE | 2018-11-15 10:30 | P.PN ---
Subjective Progress Note Date: 11/15/18 Principal diagnosis: foot pain Patient is a 63-year-old male past medical history of atrial fibrillation, COPD, hypertension, coronary artery disease with percutaneous in tervention, diverticulitis status post ostomy creation, Reynaud's syndrome, and generalized chronic pain who presented to the emergency department with complaints of suicidal ideation, left toe discoloration, and severe pain. In the ER he underwent an extensive evaluation. He was initially hypotensive at 82/64 but responded to IV fluids. Laboratory analysis showed a leukocytosis of 13.1, sodium 125, bicarbonate 18, BUN 48, and creatinine 1.85. Lactic acid was noted to be elevated at 2.1. Troponin was also elevated at 0.141. Chest x-ray showed findings of COPD and osteophyte formation with concern for possible increased risk of lung cancer. Follow-up CT scan was recommended. He was ad mitted for possible cellulitis with sepsis of the left lower extremity and troponin elevation with history of coronary artery disease. He was started on IV fluids, troponins were trended, and Rocephin was started with concern for cellulitis. He was also started on normal saline due to his acute kidney injury. He was seen by vascular surgery who felt that the patient likely had significant peripheral arterial disease. Patient was on a heparin drip. His dose of oral sodium bicarb was increased. Lower extremity arterial imaging revealed normal ABIs. CTA with runoff was obtained which showed minor atherosclerotic calcifications with reconstruction. Vascular surgery felt that he had reynauds Disease as he was getting adequate waves forms and small vessel disease. They recommended conservative treatment including Pletal, Calcium channel lula if BP stable. Due to his elevated troponins he underwent an echocardiogram that showed mild LVH, ejection fraction 55-60% and was otherwise unremarkable. Cardiology felt his elevated troponin likely secondary to renal insufficiency. Nephrology was consulted and Midodrin was added to optimize blood pressures. Patient continued not being able to handle the pain anymore and wanted to "end it all" due to pain. He initially would not see psychiatry. He stated his suicidal thoughts were secondary to pain. He was seen by psychiatry and was determined he does not require inpatient psychiatric hospitalization. His Percocet was increased as well as his Neurontin. Pain management was consulted who agreed with these changes. His heparin drip was stopped and was started on Eliquis by cardiology. Overnight on 9/4 he developed significant hemoptysis, His eliquis was stopped. He was noted to have worsening anemia. He underwent a CT of the chest which demonstrated bilateral pleural effusions with diffuse infiltrate throughout the right lung most typical of pneumonia or pneumonitis. He received lasix on 11/10, 11/11, and 11/12. Patient was started on Zithromax and Zosyn. Pulmonary was consulted, felt more consistent with fluid overload. On the morning of 11/12 he continued to have some hemoptysis. He continued to have low blood pressure and had been maximized on midodrine and florinef was added, cortisol was low normal at 6 in the morning. This was anticipated to be higher due to his acute illness. Cortef was added for possible adrenal insufficiency. Still with low blood pressure and switched to IV cortef which seemed to resolve low BP. Patient seen and examined at bedside. Very angry this morning because his pone was removed from his room last night he states because he was yelling and swearing at his friend. He states this place is like [facility] and he wants to leave. He asked who will being writing his pain medications on discharge. I informed him that if he goes to SNF on discharge I will write his pain medications, as he will be supervised. I don't feel comfortable writing pain medications if he goes home as he has made multiple threats to end his life if his pain is not treated and I think it would not be safe as he is at high risk for overdose. He then got angry and wanted to leave AMA with an ambulance, as he has been unable to ambulate. I expressed that this was not a good idea as he cannot walk and cannot take care of himself. I stated I would try to get his phone back, that he still needs treatment for his pneumonia, and that we increased his neurotin yesterday. I encourage him to stay, but did let him know that if he wanted to leave Against Medical Advice he would have to make arrangements. Objective - Vital Signs Vital signs: Vital Signs Temp 98.2 F 11/15/18 06:09 Pulse 85 11/15/18 06:09 Resp 18 11/15/18 06:09 BP 132/75 11/15/18 06:09 Pulse Ox 98 11/15/18 06:09 Intake & Output 11/14/18 11/15/18 11/15/18 18:59 06:59 18:59 Intake Total 640 240 Output Total 700 550 Balance -60 -310 Intake: Intake, IV Titration 200 Amount Piperacillin-Tazobactam 3 200 .375 gm In Sodium Chloride 0.9% 100 ml @ 25 mls/hr IVPB Q8HR [facility] Rx# :[id number] Oral 440 240 Output: Urine 700 550 Other: Voiding Method Indwelling Catheter Indwelling Catheter # Voids 1 # Bowel Movements 100 - Exam General: non toxic, no distress, appears older than stated age, cachectic with temporal wasting Derm: warm, dry, multiple pock maria Head: atraumatic, normocephalic, symmetric Eyes: EOMI, no lid lag, anicteric sclera Mouth: no lip lesion, mucus membranes dry Ext: no gross muscle atrophy, no edema, no contractures Neuro: CN II-XI grossly intact, Moving all 4 extremities independently. Psych: Alert, oriented, angry and threatening in nature. Appears to be expressing manipulative behaviors. - Labs CBC & Chem 7: 11/15/18 06:04 11/15/18 06:04 Labs: Abnormal Lab Results - Last 24 Hours (Table) 11/15/18 11/15/18 Range/Units 06:04 06:04 RBC 2.52 L (4.30-5.90) m/uL Hgb 8.6 L (13.0-17.5) gm/dL Hct 26.2 L (39.0-53.0) % MCV 104.0 H (80.0-100.0) fL RDW 15.6 H (11.5-15.5) % Sodium 130 L (137-145) mmol/L Glucose 108 H (74-99) mg/dL Calcium 8.3 L (8.4-10.2) mg/dL Assessment and Plan Assessment: Hemoptysis with Pneumonia and pulmonary edema -WBC decreased after ABX started -Hemoptysis improving -Zithromax and Zosyn -Pulm recs appreciated -Follow CBC -CRP 170, concern for possible vasculitis component ANCA studies negative, procalcitonin was indeterminant at 0.78 but not highly suspicious for infection as less than 2. Severe pain in lower extremity secondary to Reynauds and peripheral arterial dis ease -Vascular surgery recommendations appreciated. Proceed with medical management. Pletal was added, no calcium channel lula due to low BP at this time. -Continue with Percocet 10/325 as well as increased Neurontin dosing- increase again to TID -Pain management recommendations appreciated -Suicidal verbal expressions secondary to uncontrolled pain. Pain medication regimen has been optimized. -Psychiatry recommendations: Manipulative behaviors, no need for inpatient psych, product safety specialist continued, cymbalta added at 30 mg daily may increase after 1 week, melatonin can be used for sleep. Hypotension, improved with IV cortef - relative adrenal insufficiency with AM cortisol 6 - trial of IV cortef 50 TID - on max dose of midodrine Acute kidney injury secondary to dehydration, improved -Avoid additional nephrotoxic agents -Near baseline -Nephrology recommendations appreciated Paroxysmal atrial fibrillation -Currently in sinus rhythm -No anticoagulation secondary to hemoptysis Alcohol abuse -[facility] protocol -Thiamine and folic acid supplementation Metabolic acidosis secondary to acute kidney injury, improved -Continue with oral sodium bicarb -Continue to follow levels Elevated troponin -Acute coronary syndrome ruled out -[place] to be secondary to acute renal failure Hyponatremia, improved Dehydration, resolved COPD, chronic without exacerbation Hypokalemia and hypomagnesemia, improved DVT prophylaxis: SCDs Discussed with: Patient, nursing, Nurse hair or beauty salon manager Anticipated discharge: 3-[address]: SNF A total of 30 minutes was spent on the care of this complex patient more than 50% of the time was spent in counseling and care coordination.
--- NOTE | 2018-11-15 14:07 | P.PN ---
Subjective Progress Note Date: 11/15/18 Principal diagnosis: Acute hypoxic respiratory failure with bilateral pleural effusions and right lung consolidation related to pulmonary edema and right lung pneumonia A 63-year-old male patient quite debilitated with multiple medical problems and comorbidities who initially came into the hospital because of foot pain. Note that the patient has multiple other medical issues and we will consult on the patient knowing that he has developed a worsening shortness of breath with bilateral pleural effusion and possible right lung pneumonia. This patient has history of COPD, coronary artery disease, hypertension, atrial fibrillation, previous complicated diverticulitis requiring and ostomy creation, history of peripheral vascular disease and the patient presented with pain in the lower extremity and there was a concern of a acute ischemic leg. The patient was having pain in his left foot and the patient had been done on for the past several months. He had also discolored toes which has been a chronic problem. The patient underwent further CT angiogram that showed atherosclerotic calcification throughout and on the right anterior tibial artery was occluded in the upper leg and there was two-vessel runoff into the foot through the peroneal artery and on the left there was a 2 vessel runoff into the foot through the peroneal artery also. The patient was started on Pletal and no further vascular intervention was planned for this patient. During the course of his treatment, the patient came in with a creatinine of 1.8. The patient was given IV fluids. Creatinine gradually improved with IV fluids. His troponins were slightly elevated at time of admission and gradually down trended. His acute kidney injury also improved. Echo of the heart showed mild LVH with an ejection fraction of 55-60% otherwise unremarkable. Cardiology evaluated the patient and no acute cardiac intervention is being planned. Nephrology also evaluated the patient and midodrine was added to optimize the blood pressure. He was complaining of chronic pain for which pain management was involved. He was complaining of increased depression and threatening of suicide and for that reason a psychiatric evaluation was question and the patient was given a 24-hour sitter at the bedside. Subsequently the patient developed some hemoptysis. He was on IV heparin and the level was supratherapeutic. A CAT scan of the chest was done and showed bilateral pleural effusion and addition to diffuse infiltration of the right lung compared to the left consistent with either asymmetric pulmonary edema or right lung pneumonia. The patient was started on a combination of Zithromax and Zosyn. On the morning of 11/12/2018 the patient was having some limited hemoptysis still in small amounts. No nausea. No vomiting. No GI bleeding. No other complaints otherwise for now. He is not receiving any form of diuretics at this point in time. The patient is seen today 11/13/2018 in follow-up on the selective care unit. He is currently sitting up in bed. Awake and alert in no acute distress. HEENT O2 saturations in the low 90s on 2 L/m per nasal cannula. He's been afebrile. Sputum culture pending. White count 8.1. Hemoglobin 9.1. Potassium 2.8. Creatinine 1.36. He is maintained on DuoNeb inhalations, Zosyn and azithromycin. On 11/14/2018 the patient is resting comfortably in bed. Nevertheless she is still cough and not bloody mucus. A repeat chest x-ray was done today showed increased confluence and multifocal opacities most compatible with multilobar pneumonia. He remains on a combination of Zosyn and Zithromax. I do suspect a component of fluid/CHF/interstitial edema as the patient has also bilateral pleural effusion. He'll be started on Lasix today. Despite this worsening in his chest x-ray findings, his white blood count remains nonelevated at 5.3. Hemoglobin is at 8.3. His renal function stable with a creatinine of 1.2. Sputum sample that was sent for Gram stain and culture and the results are still pending for now. He continues to have a depressed mood and there is a 24 hour sitter at the bedside at all times. On 11/15/2018 patient seen in follow-up on selective care unit. He is awake and alert, still has a regional safety manager at the bedside apparently the patient is impulsive at times, and one at to leave AMA however she is unable to ambulate. Denies any dyspnea, he is only complaint is some left foot pain. No cough or congestion. NO chest wall discomfort. Room air pulse ox is 98%, his been afebrile, blood urine and sputum cultures are negative. These labs have been reviewed, showing white blood cell count of 4.5, hemoglobin of 8.6, serum sodium is 1:30, the rest of electrolytes and renal profile were within normal limits. Patient has been treated with a combination of antibiotics in the form of Zithromax, Zosyn and Lasix, Lasix has been discontinued. Yesterday's chest x- ray showed increasing confluence of the multifocal opacity compatible with multifocal pneumonia and small parapneumonic effusions. Clinically patient remains stable. Patient is on IV fluid restriction for hyponatremia, today sodium is 1:30, Lasix is on hold per nephrology, and IV hydrocortisone was added for hypertension, midodrine has been added Objective - Vital Signs Vital signs: Vital Signs Temp 98.2 F 11/15/18 06:09 Pulse 85 11/15/18 06:09 Resp 18 11/15/18 08:00 BP 132/75 11/15/18 06:09 Pulse Ox 98 11/15/18 06:09 Intake & Output 11/14/18 11/15/18 11/15/18 18:59 06:59 18:59 Intake Total 640 240 Output Total 700 550 Balance -60 -310 Weight 62.5 kg Intake: Intake, IV Titration 200 Amount Piperacillin-Tazobactam 3 200 .375 gm In Sodium Chloride 0.9% 100 ml @ 25 mls/hr IVPB Q8HR [facility] Rx# :[id number] Oral 440 240 Output: Urine 700 550 Other: Voiding Method Indwelling Catheter Indwelling Catheter Indwelling Catheter # Voids 1 # Bowel Movements 100 - Exam GENERAL EXAM: Alert, slightly withdrawn, but fairly cooperative 63-year-old white male, the regional safety manager at the bedside, comfortable in no apparent distress. HEAD: Normocephalic/atraumatic. EYES: Normal reaction of pupils, equal size. Conjunctiva pink, sclera white. NOSE: Clear with pink turbinates. THROAT: No erythema or exudates. NECK: No masses, no JVD, no thyroid enlargement, no adenopathy. CHEST: No chest wall deformity. Symmetrical expansion. LUNGS: Equal air entry with no crackles, wheeze, rhonchi or dullness. CVS: Regular rate and rhythm, normal S1 and S2, no gallops, no murmurs, no rubs ABDOMEN: Soft, nontender. No hepatosplenomegaly, normal bowel sounds, no guarding or rigidity. EXTREMITIES: No clubbing, no edema, no cyanosis, + pulses and upper and lower extremities. Left second toe on the left foot is slightly dusky, but there are palpable pedal pulses. MUSCULOSKELETAL: Muscle strength and tone normal. SPINE: No scoliosis or deformity SKIN: No rashes CENTRAL NERVOUS SYSTEM: Alert and oriented -3. No focal deficits, tone is normal in all 4 extremities. PSYCHIATRIC: Alert and oriented -3. Appropriate affect. Intact judgment and insight. - Labs CBC & Chem 7: 11/15/18 06:04 11/15/18 06:04 Labs: Abnormal Lab Results - Last 24 Hours (Table) 11/15/18 11/15/18 Range/Units 06:04 06:04 RBC 2.52 L (4.30-5.90) m/uL Hgb 8.6 L (13.0-17.5) gm/dL Hct 26.2 L (39.0-53.0) % MCV 104.0 H (80.0-100.0) fL RDW 15.6 H (11.5-15.5) % Sodium 130 L (137-145) mmol/L Glucose 108 H (74-99) mg/dL Calcium 8.3 L (8.4-10.2) mg/dL Assessment and Plan Plan: Assessment: 1 acute hypoxic respiratory failure with bilateral pleural effusions and asy mmetric right lung consolidation consistent with either asymmetric pulmonary edema/heart failure versus right lung pneumonia. The patient continues to have hemoptysis and the patient is having worsening in bilateral pulmonary infiltrates and bilateral pleural effusion on today's chest x-ray. Remains and accommodation of Zithromax and Zosyn. Sputum has been sent for Gram stain and culture and the results are still pending for now. 2 hemoptysis secondary to above, and has further by anticoagulation, currently inactive in stable 3 coronary artery disease 4 COPD 5 peripheral vascular disease with chronic pain lower extremities in addition to some cyanosis and Raynaud's phenomena 6 paroxysmal atrial fibrillation current rhythm is sinus 7 acute kidney injury recovered 8 troponin leak 9 dehydration/intravascular volume depletion, recovered 10 depression with suicidal intention/ideations currently on close observation with a bedside sitter and psychiatric evaluation was also requested Plan: We'll obtain a follow-up chest x-ray tomorrow, clinical patient remains stable, denies worsening dyspnea, denies chest pain, still bringing up brown colored sputum, but is maintaining stable oxygenation on room air. No fever or chills, cultures are negative thus far, Lasix on hold per nephrology, and hypotension. Has been started on hydrocortisone and midodrine. Maintain safety precautions, aspiration precautions. We'll continue to follow I performed a history & physical examination of the patient and discussed their management with my nurse practitioner, Carolee Robison. I reviewed the nurse practitioner's note and agree with the documented findings and plan of care. Lung sounds are positive for scattered rhonchi. The findings and the impression was discussed with the patient. I attest to the documentation by the nurse practitioner. Time with Patient: Less than 30
--- NOTE | 2018-11-15 14:47 | P.PN ---
Progress Note - Text Progress Note Date: 11/15/18 Psychiatric progress note Interval History: Patient was initially seen by psychiatry CL team on 11/12/2018 due to patient making suicidal threats related to his pain medications. At that time it was felt that majority of the claims were related to patient's pain level and were manipulative to have dose is increased. Primary team asked blurb writer to see patient for follow-up today and patient was seen at the bedside who is agreeable to speak to blurb writer. Patient states that he is feeling "about the same" and states that his mood has improved mildly since his Cymbalta was started. Patient denies any side effects from the medication. He states that he did feel irritable earlier on however claims that it was related to his pain. Patient has improved insight into his condition and claims that he does want to go to rehab from the hospital. He denies any anxiety at this time. He states that he slept okay last night and has been taking his medications regularly. At this time patient denies any suicidal or homical ideations, intent or plan. Patient denies any auditory, visual hallucinations and denies any paranoia or delusions. As per nursing report, patient has not had any behavioral problems recently and has not endorsed suicidal ideations and has been taking his medications. MENTAL STATUS EXAM: General Appearance: Patient appears to be older than stated age, thin and frail and appears to have poor hygiene and grooming and is cooperative with interview. Behavior: Patient is calmly lying in bed. No acute distress Speech: Patient's speech is fluent and nonpressured. Mood/Affect: Patient reports their mood is "about the same", affect is congruent Suicidality/Homicidality: Denies any suicidal or homicidal ideations intent or plan. Perceptions: Patient denies any auditory or visual hallucinations. Though content/process: There is no evidence of any delusional thought content and thought process is linear and goal-directed. Memory and concentration: AOX3, grossly intact for the purposes of this session. Can spell "WORLD" backwards Judgment and insight: Improved, superficial IMPRESSIONS: Pain disorder with related psychological factors Major depressive disorder, mild, recurrent Personality disorder unspecified PLAN: -At this time patient patient does NOT meet criteria for inpatient psychiatric admission. -Would recommend the following medication changes/additions: Will increase Cymbalta to 60 mg daily for mood and pain. We will also continue with melatonin 3 mg daily at bedtime for insomnia. Melatonin can be increased to 5 or 6 mg if patient is still having insomnia. -OK to discontinue 1:1 sitter at this time as patient is not endorsing suicidal ideations or behaviors. -Encourage PT/OT - patient to possibly go to rehab. Strongly recommend that patient does not live on his own as he appears to not be able to care for himself. -Psychiatry to sign off at this point. Thank you for the consult
[2018-11-15] MEDS ORDERED: FUROSEMIDE 10 MG/ML 4 ML VIAL IV STA (16:09)
[2018-11-15] MEDS: MORPHINE SULFATE 2 MG/ML SYRINGE IV PRN (16:51)
[2018-11-15] MEDS: MELATONIN 3 MG TABLET PO SCH (20:36)
[2018-11-15] MEDS: ATORVASTATIN 40 MG TAB PO SCH (20:39)
[2018-11-16] MEDS: MIDODRINE 5 MG TAB PO SCH ×3 (06:18→17:30)
[2018-11-16] MEDS: MORPHINE SULFATE 2 MG/ML SYRINGE IV PRN (06:18)
[2018-11-16] MEDS: THIAMINE 100 MG TAB PO SCH ×2 (06:18→17:30)
[2018-11-16 06:32] LABS: Calcium 8.8 mg/dL (8.4-10.2); Potassium 3.5 mmol/L (3.5-5.1)
[2018-11-16 06:38] LABS: HCT 30.6 % (39.0-53.0); HGB 10.1 gm/dL (13.0-17.5); MCH 34.2 pg (25.0-35.0); MCHC 32.9 g/dL (31.0-37.0); Macrocytosis Moderate; Mean Platelet Volume 7.7; Platelet Count 363 k/uL (150-450); RBC 2.94 m/uL (4.30-5.90); RDW 15.8 % (11.5-15.5); WBC 11.3 k/uL (3.8-10.6)
[2018-11-16] MEDS: PIPERACILLIN-TAZOBACTAM 3.375 GM in SODIUM CHLORIDE 0.9% 100 ML IVPB SCH ×3 (09:24→23:34)
[2018-11-16] MEDS: GABAPENTIN 300 MG CAP PO SCH ×3 (09:25→21:02)
[2018-11-16] MEDS: NICOTINE 21MG/24HR PATCH TRANSDERM SCH (09:25)
[2018-11-16] MEDS: AZITHROMYCIN 500 MG TAB PO SCH (09:25)
[2018-11-16] MEDS: CILOSTAZOL 100 MG TAB PO SCH ×2 (09:25→21:02)
[2018-11-16] MEDS: SODIUM BICARBONATE TAB 650 MG TAB PO SCH ×2 (09:25→21:02)
[2018-11-16] MEDS: DICYCLOMINE 10 MG CAP PO SCH ×3 (09:25→21:02)
[2018-11-16] MEDS: PANTOPRAZOLE 40 MG TABLET PO SCH (09:26)
[2018-11-16] MEDS: DULoxetine HCL 60 MG CAPSULE.DR PO SCH (09:26)
[2018-11-16] MEDS: MULTIVITAMINS, THERA 1 EACH TAB PO SCH (09:26)
[2018-11-16] MEDS: HYDROCORTISONE SUCCINATE 100 MG/2 ML VIAL IV SCH ×3 (09:28→23:34)
--- NOTE | 2018-11-16 10:52 | XR ---
EXAMINATION TYPE: XR chest 1V portable DATE OF EXAM: 11/16/2018 COMPARISON: Prior chest x-ray 11/14/2018 HISTORY: Follow-up pneumonia, pulmonary edema TECHNIQUE: Single frontal view of the chest is obtained. FINDINGS: Findings are similar to prior exam. Bibasilar increased density is noted. There is bluntin g the right costophrenic angle which may have increased interval. Patient is rotated the opposite dir ection. No evident pneumothorax. Heart size is likely stable. Interstitium is somewhat increased. Aor ta is dense. IMPRESSION: Correlate for congestive heart failure with pleural effusions versus pneumonia. Follow-u p to resolution.
--- NOTE | 2018-11-16 11:09 | CDI ---
Documentation Clarification Form Date: 11/16/2018 10:58:26 AM From: Jyoti Nicholas RN, CCDS Admit Date: 11/06/2018 3:56:00 PM Patient Name: Omar Joaquin Visit Number: [id number] ATTENTION: The Clinical Documentation Specialists (CDI) and [facility] Coding Staff appreciate your assistance in clarifying documentation. Please respond to the clarification below the line at the bottom and electronically sign. The CDI & [facility] Coding staff will review the response and follow-up if needed. Please note: Queries are made part of the Legal Health Record. If you have any questions, please contact the author of this message via ITS. Dr. Leslie Morgan A diagnosis of anemia lacks specificity to accurately reflect your patients severity of condition and clarification is needed. History/Risk Factors: This admission- Hemoptysis, Acute renal failure, Sepsis, Raynauds, PAD, Hypotension, Atrial Fib, Hyponatremia, Hypokalemia Clinical indicators: 11/11-11/15 Attending Progress Notes: "He was noted to have worsening anemia." Hemoglobin: 17.9/14.5/13.2/11.8/11/9/9.1/8.3/8.6 Hematocrit: 53/42.9/39.4/36/34.3/26.6/25.2/26.2 Treatment: Lab Monitoring Po Eliquis and ASA on hold 3L IVF Bolus In order to capture the severity of condition, please clarify the type of anemia and etiology if known: Acute blood loss anemia Iron deficiency anemia Hemolytic anemia Drug induced anemia Anemia due to malignancy Nutritional anemia Anemia of chronic disease Unable to determine Other, please specify (Last Revision: December 2016) acute blood loss anemia MTDD
--- NOTE | 2018-11-16 11:32 | CDI ---
Documentation Clarification Form Date: 11/16/2018 11:10:24 AM From: Jyoti Nicholas RN, CCDS Admit Date: 11/06/2018 3:56:00 PM Patient Name: Omar Joaquin Visit Number: [id number] ATTENTION: The Clinical Documentation Specialists (CDI) and [facility] Coding Staff appreciate your assistance in clarifying documentation. Please respond to the clarification below the line at the bottom and electronically sign. The CDI & [facility] Coding staff will review the response and follow-up if needed. Please note: Queries are made part of the Legal Health Record. If you have any questions, please contact the author of this message via ITS. Dr. Igor York History/Risk Factors: Atrial Fib, COPD, HTN, Heart cath with stents. Clinical Indicators: 11/12- 11/15 Pulmonary Consult and Progress notes: acute hypoxic respiratory failure with bilateral pleural effusions and asymmetric right lung consolidation consistent with either asymmetric pulmonary edema/heart failure versus right lung pneumonia. VS/Pulse OX: temp 97.4, hr 1032, RR 18, B/P 89/52, spo2 94% 3l NC BNP: not done 11/08 Echocardiogram Results: 55-60% 11/14 Chest X Ray: "Increasing confluence of the multifocal opacities most compatible with multifocal pneumonia and small parapneumonic Treatment: Lasix 20 mg IVP x 2 doses and Lasix 40 mg IVP x 2 doses Midodrine 10 mg AC TID In your professional opinion, can you please clarify the acuity and type of CHF if known? Diastolic Heart Failure: Acute Chronic Acute on Chronic Systolic & Diastolic Heart Failure: Acute Chronic Acute on Chronic Heart Failure Unable to Determine Other, please specify Diastolic Heart Failure: Acute on Chronic MTDD
[2018-11-16] MEDS ORDERED: FUROSEMIDE 10 MG/ML 4 ML VIAL IV STA (13:14)
--- NOTE | 2018-11-16 13:16 | P.PN ---
Subjective Progress Note Date: 11/16/18 Principal diagnosis: Acute hypoxic respiratory failure with bilateral pleural effusions and right lung consolidation related to pulmonary edema and right lung pneumonia A 63-year-old male patient quite debilitated with multiple medical problems and comorbidities who initially came into the hospital because of foot pain. Note that the patient has multiple other medical issues and we will consult on the patient knowing that he has developed a worsening shortness of breath with bilateral pleural effusion and possible right lung pneumonia. This patient has history of COPD, coronary artery disease, hypertension, atrial fibrillation, previous complicated diverticulitis requiring and ostomy creation, history of peripheral vascular disease and the patient presented with pain in the lower extremity and there was a concern of a acute ischemic leg. The patient was having pain in his left foot and the patient had been done on for the past several months. He had also discolored toes which has been a chronic problem. The patient underwent further CT angiogram that showed atherosclerotic calcification throughout and on the right anterior tibial artery was occluded in the upper leg and there was two-vessel runoff into the foot through the peroneal artery and on the left there was a 2 vessel runoff into the foot through the peroneal artery also. The patient was started on Pletal and no further vascular intervention was planned for this patient. During the course of his treatment, the patient came in with a creatinine of 1.8. The patient was given IV fluids. Creatinine gradually improved with IV fluids. His troponins were slightly elevated at time of admission and gradually down trended. His acute kidney injury also improved. Echo of the heart showed mild LVH with an ejection fraction of 55-60% otherwise unremarkable. Cardiology evaluated the patient and no acute cardiac intervention is being planned. Nephrology also evaluated the patient and midodrine was added to optimize the blood pressure. He was complaining of chronic pain for which pain management was involved. He was complaining of increased depression and threatening of suicide and for that reason a psychiatric evaluation was question and the patient was given a 24-hour sitter at the bedside. Subsequently the patient developed some hemoptysis. He was on IV heparin and the level was supratherapeutic. A CAT scan of the chest was done and showed bilateral pleural effusion and addition to diffuse infiltration of the right lung compared to the left consistent with either asymmetric pulmonary edema or right lung pneumonia. The patient was started on a combination of Zithromax and Zosyn. On the morning of 11/12/2018 the patient was having some limited hemoptysis still in small amounts. No nausea. No vomiting. No GI bleeding. No other complaints otherwise for now. He is not receiving any form of diuretics at this point in time. The patient is seen today 11/13/2018 in follow-up on the selective care unit. He is currently sitting up in bed. Awake and alert in no acute distress. HEENT O2 saturations in the low 90s on 2 L/m per nasal cannula. He's been afebrile. Sputum culture pending. White count 8.1. Hemoglobin 9.1. Potassium 2.8. Creatinine 1.36. He is maintained on DuoNeb inhalations, Zosyn and azithromycin. On 11/14/2018 the patient is resting comfortably in bed. Nevertheless she is still cough and not bloody mucus. A repeat chest x-ray was done today showed increased confluence and multifocal opacities most compatible with multilobar pneumonia. He remains on a combination of Zosyn and Zithromax. I do suspect a component of fluid/CHF/interstitial edema as the patient has also bilateral pleural effusion. He'll be started on Lasix today. Despite this worsening in his chest x-ray findings, his white blood count remains nonelevated at 5.3. Hemoglobin is at 8.3. His renal function stable with a creatinine of 1.2. Sputum sample that was sent for Gram stain and culture and the results are still pending for now. He continues to have a depressed mood and there is a 24 hour sitter at the bedside at all times. On 11/15/2018 patient seen in follow-up on selective care unit. He is awake and alert, still has a product safety tester at the bedside apparently the patient is impulsive at times, and one at to leave AMA however she is unable to ambulate. Denies any dyspnea, he is only complaint is some left foot pain. No cough or congestion. NO chest wall discomfort. Room air pulse ox is 98%, his been afebrile, blood urine and sputum cultures are negative. These labs have been reviewed, showing white blood cell count of 4.5, hemoglobin of 8.6, serum sodium is 1:30, the rest of electrolytes and renal profile were within normal limits. Patient has been treated with a combination of antibiotics in the form of Zithromax, Zosyn and Lasix, Lasix has been discontinued. Yesterday's chest x- ray showed increasing confluence of the multifocal opacity compatible with multifocal pneumonia and small parapneumonic effusions. Clinically patient remains stable. Patient is on IV fluid restriction for hyponatremia, today sodium is 1:30, Lasix is on hold per nephrology, and IV hydrocortisone was added for hypertension, midodrine has been added On 11/16/2018 patient seen in follow-up on selective care unit. Yesterday he received an extra dose of IV Lasix, and today he is in -1095 ML fluid balance, lung sounds reveal extremely diminished breath sounds over bilateral bases, right greater than left. Scattered crackles, no significant wheezes, he states he still having some persistent hemoptysis. Feels short of breath, although does not appear to be in any acute distress, currently on 2-3 L of oxygen with a pulse ox of 94%, he is tachycardic, generally weak. Complains of intermittent pain in his left foot, and abdomen, no nausea or vomiting. Follow-up chest x- ray was obtained showing increased interstitium, bilateral pleural effusions versus pneumonia. Ultrasound of the chest has been ordered and pending at this time. On today's labs there is slight worsening of patient's renal function, with creatinine up to 1.3 from yesterday's labs of 1.16. Serum sodium is 133, potassium is 3.5, chloride is 96. No complaints of chest pain, his pro- calcitonin is actually down trending, last one on 11/13/2018 was down to 0.55 from 0.78. White count is 11.3, hemoglobin is 10.1. Urine, blood and sputum cultures are negative thus far, she has been afebrile. Remains on a combination of Zithromax and Zosyn. Objective - Vital Signs Vital signs: Vital Signs Temp 98.0 F 11/15/18 23:20 Pulse 119 H 11/16/18 07:00 Resp 16 11/16/18 08:00 BP 97/69 11/16/18 07:00 Pulse Ox 94 L 11/16/18 06:15 Intake & Output 11/15/18 11/16/18 11/16/18 18:59 06:59 18:59 Intake Total 480 0 Output Total 975 600 Balance -495 -600 0 Weight 62.5 kg Intake: Oral 480 0 Output: Urine 975 600 Other: Voiding Method Indwelling Catheter Urinal Urinal # Voids 1 - Exam GENERAL EXAM: Alert, slightly withdrawn, but fairly cooperative 63-year-old white male, the product safety tester at the bedside, comfortable in no apparent distress. HEAD: Normocephalic/atraumatic. EYES: Normal reaction of pupils, equal size. Conjunctiva pink, sclera white. NOSE: Clear with pink turbinates. THROAT: No erythema or exudates. NECK: No masses, no JVD, no thyroid enlargement, no adenopathy. CHEST: No chest wall deformity. Symmetrical expansion. LUNGS: Extremely diminished air entry at bilateral bases entry with some scattered crackles, wheeze, rhonchi or dullness. CVS: Regular rate and rhythm, normal S1 and S2, no gallops, no murmurs, no rubs ABDOMEN: Soft, nontender. No hepatosplenomegaly, normal bowel sounds, no guarding or rigidity. EXTREMITIES: No clubbing, no edema, no cyanosis, + pulses and upper and lower extremities. Left second toe on the left foot is slightly dusky, but there are palpable pedal pulses. MUSCULOSKELETAL: Muscle strength and tone normal. SPINE: No scoliosis or deformity SKIN: No rashes CENTRAL NERVOUS SYSTEM: Alert and oriented -3. No focal deficits, tone is normal in all 4 extremities. PSYCHIATRIC: Alert and oriented -3. Appropriate affect. Intact judgment and insight. - Labs CBC & Chem 7: 11/16/18 05:33 11/16/18 05:33 Labs: Abnormal Lab Results - Last 24 Hours (Table) 11/16/18 11/16/18 Range/Units 05:33 05:33 WBC 11.3 H (3.8-10.6) k/uL RBC 2.94 L (4.30-5.90) m/uL Hgb 10.1 L (13.0-17.5) gm/dL Hct 30.6 L (39.0-53.0) % MCV 104.0 H (80.0-100.0) fL RDW 15.8 H (11.5-15.5) % Sodium 133 L (137-145) mmol/L Chloride 96 L (98-107) mmol/L Creatinine 1.30 H (0.66-1.25) mg/dL Microbiology - Last 24 Hours (Table) 11/12/18 13:55 Gram Stain - Final Sputum Sputum Culture - Final Assessment and Plan Plan: Assessment: 1 acute hypoxic respiratory failure with bilateral pleural effusions and asymmetric right lung consolidation consistent with either asymmetric pulmonary edema/heart failure versus right lung pneumonia. The patient continues to have hemoptysis and the patient is having worsening in bilateral pulmonary infiltrates and bilateral pleural effusion on today's chest x-ray. Remains on a commodation of Zithromax and Zosyn. Sputum has been sent for Gram stain and culture and the results are still pending for now. 2 hemoptysis secondary to above, and has further by anticoagulation, currently inactive in stable 3 coronary artery disease 4 COPD 5 peripheral vascular disease with chronic pain lower extremities in addition to some cyanosis and Raynaud's phenomena 6 paroxysmal atrial fibrillation current rhythm is sinus 7 acute kidney injury recovered 8 troponin leak 9 dehydration/intravascular volume depletion, recovered 10 depression with suicidal intention/ideations currently on close observation with a bedside sitter and psychiatric evaluation was also requested Plan: Today's chest x-ray has been reviewed showing interstitial prominence and bilateral pleural effusions, ultrasound of the chest has been ordered and pending, today's labs show slight worsening of patient's renal profile, yesterday we gave the patient a dose of IV Lasix. We will give the patient additional dose of IV Lasix today. Repeat blood work tomorrow. Follow-up chest x-ray. Patient has been afebrile, denies any chest pain. Remains generally weak. I performed a history & physical examination of the patient and discussed their management with my nurse practitioner, Carolee Robison. I reviewed the nurse practitioner's note and agree with the documented findings and plan of care. Lung sounds are positive for scattered rhonchi. The findings and the impression was discussed with the patient. I attest to the documentation by the nurse practitioner. Time with Patient: Less than 30
[2018-11-16] MEDS: oxyCODONE-APAP 10-325MG 1 EACH TAB PO PRN (13:24)
--- NOTE | 2018-11-16 13:29 | US ---
EXAMINATION TYPE: US chest DATE OF EXAM: 11/16/2018 COMPARISON: NONE CLINICAL HISTORY: shortness of breath. Pleural effusion TECHNIQUE: Targeted ultrasound of the posterior lower bilateral hemithoraces EXAM MEASUREMENTS: Right Pleural Effusion pocket size: 7.9 cm Right skin surface to fluid distance: 1.7 cm Left Pleural Effusion pocket size: 7.2 cm Left skin surface to fluid distance: 1.5 cm Right side MARKED for possible thoracentesis outside the dept. Left side MARKED for possible thoracentesis outside the dept. Pulmonologists are able to review the images in the patient?s EMR. IMPRESSIONS: Bilateral pleural effusions.
--- NOTE | 2018-11-16 15:11 | XR ---
EXAMINATION TYPE: XR chest 1V portable DATE OF EXAM: 11/16/2018 COMPARISON: Prior chest x-ray same dated earlier time HISTORY: Status post right thoracentesis TECHNIQUE: Single frontal view of the chest is obtained. FINDINGS: Small right-sided pneumothorax is present. No significant interval change. IMPRESSION: Small right pneumothorax. A [place] critical message alert has been initiated for Stephanie Tse via the [email or web address] Results System on 11/16/2018 3:09 PM. This message alert has been sent to Stephanie Tse via the [employer] rences provided by the clinician for the receipt of Radiology Critical Findings. Message ID [id number].
--- NOTE | 2018-11-16 16:00 | P.PN ---
Subjective Progress Note Date: 11/16/18 (delayed charting seen at 0900) Principal diagnosis: foot pain Patient is a 63-year-old male past medical history of atrial fibrillation, COPD, hypertension, coronary artery disease with percutaneous intervention, diverticulitis status post ostomy creation, Reynaud's syndrome, and generalized chronic pain who presented to the emergency department with complaints of suicidal ideation, left toe discoloration, and severe pain. In the ER he underwent an extensive evaluation. He was initially hypotensive at 82/64 but responded to IV fluids. Laboratory analysis showed a leukocytosis of 13.1, sodium 125, bicarbonate 18, BUN 48, and creatinine 1.85. Lactic acid was noted to be elevated at 2.1. Troponin was also elevated at 0.141. Chest x-ray showed findings of COPD and osteophyte formation with concern for possible increased risk of lung cancer. Follow-up CT scan was recommended. He was admitted for possible cellulitis with sepsis of the left lower extremity and troponin elevation with history of coronary artery disease. He was started on IV fluids, troponins were trended, and Rocephin was started with concern for cellulitis. He was also started on normal saline due to his acute kidney injury. He was seen by vascular surgery who felt that the patient likely had significant peripheral arterial disease. Patient was on a heparin drip. His dose of oral sodium bicarb was increased. Lower extremity arterial imaging revealed normal ABIs. CTA with runoff was obtained which showed minor atherosclerotic calcifications with reconstruction. Vascular surgery felt that he had reynauds Disease as he was getting adequate waves forms and small vessel disease. They recommended conservative treatment including Pletal, Calcium channel lula if BP stable. Due to his elevated troponins he underwent an echocardiogram that showed mild LVH, ejection fraction 55-60% and was otherwise unremarkable. Cardiology felt his elevated troponin likely secondary to renal insufficiency. Nephrology was consulted and Midodrin was added to optimize blood pressures. Patient continued not being able to handle the pain anymore and wanted to "end it all" due to pain. He initially would not see psychiatry. He stated his suicidal thoughts were secondary to pain. He was seen by psychiatry and was determined he does not require inpatient psychiatric hospitalization. His Percocet was increased as well as his Neurontin. Pain management was consulted who agreed with these changes. His heparin drip was stopped and was started on Eliquis by cardiology. Overnight on 11/10 he developed significant hemoptysis, His eliquis was stopped. He was noted to have worsening anemia. He underwent a CT of the chest which demonstrated bilateral pleural effusions with diffuse infiltrate throughout the right lung most typical of pneumonia or pneumonitis. He received lasix on 11/10, 11/11, and 11/12. Patient was started on Zithromax and Zosyn. Pulmonary was consulted, felt more consistent with fluid overload. On the morning of 11/12 he continued to have some hemoptysis. He continued to have low blood pressure and had been maximized on midodrine and florinef was added, cortisol was low normal at 6 in the morning. This was anticipated to be higher due to his acute illness. Cortef was added for possible adrenal insufficiency. Still with low blood pressure and switched to IV cortef which seemed to resolve improve low BP. He has recurrent bilateral pleural effusions and underwent thoracentesis on 11/16/18. Patient seen and examined at bedside. Again complains of pain, states everywhere. Went over that we increased his neurontin 11/14 and his cymbalta 11/15 (first does today). I offered to have pain management see him again for additional options. He states that he is short of breath, tired and wants to leave to go to the [place] [facility]. Objective - Vital Signs Vital signs: Vital Signs Temp 98.0 F 11/15/18 23:20 Pulse 119 H 11/16/18 07:00 Resp 16 11/16/18 08:00 BP 97/69 11/16/18 07:00 Pulse Ox 94 L 11/16/18 06:15 Intake & Output 11/15/18 11/16/18 11/16/18 18:59 06:59 18:59 Intake Total 480 0 Output Total 975 600 Balance -495 -600 0 Weight 62.5 kg Intake: Oral 480 0 Output: Urine 975 600 Other: Voiding Method Indwelling Catheter Urinal Urinal # Voids 1 - Exam General: non toxic, no distress, appears older than stated age, cachectic with temporal wasting Derm: warm, dry, multiple pock maria Head: atraumatic, normocephalic, symmetric Eyes: EOMI, no lid lag, anicteric sclera Mouth: no lip lesion, mucus membranes dry CV: S1 and S2 tachycardic, no edema bilateral, no palpable posterior tibial pulses bilateral Lungs: Decreased breath sounds bilateral bases with faint crackles, no accessory muscle use, no wheezing, no conversational dyspnea Ext: no gross muscle atrophy, no edema, no contractures Neuro: CN II-XI grossly intact, Moving all 4 extremities independently. Psych: Alert, oriented, angry and threatening in nature. Appears to be expressing manipulative behaviors. - Labs CBC & Chem 7: 11/16/18 05:33 11/16/18 05:33 Labs: Abnormal Lab Results - Last 24 Hours (Table) 11/16/18 11/16/18 Range/Units 05:33 05:33 WBC 11.3 H (3.8-10.6) k/uL RBC 2.94 L (4.30-5.90) m/uL Hgb 10.1 L (13.0-17.5) gm/dL Hct 30.6 L (39.0-53.0) % MCV 104.0 H (80.0-100.0) fL RDW 15.8 H (11.5-15.5) % Sodium 133 L (137-145) mmol/L Chloride 96 L (98-107) mmol/L Creatinine 1.30 H (0.66-1.25) mg/dL Microbiology - Last 24 Hours (Table) 11/12/18 13:55 Gram Stain - Final Sputum Sputum Culture - Final Assessment and Plan Assessment: Pneumonia, possible gram negative with pleural effusions -WBC decreased after ABX started, low increased due to steroids. -Hemoptysis improving -Zithromax and Zosyn -Pulm recs appreciated -Follow CBC -CRP 170, concern for possible vasculitis component ANCA studies negative, procalcitonin was indeterminant at 0.78 but not highly suspicious for infection as less than 2. - Thoracentesis today Severe pain in lower extremity secondary to Reynauds and peripheral arterial disease -Vascular surgery recommendations appreciated. Proceed with medical management. Pletal was added, no calcium channel lula due to low BP at this time. -Continue with Percocet 10/325, neurontin (incresad 11/14), cymbalta (increased 11/15 1st dose 11/16) -Pain management recommendations appreciated -Suicidal verbal expressions secondary to uncontrolled pain. Pain medication regimen has been optimized. -Psychiatry recommendations: Manipulative behaviors, no need for inpatient psych, occupational health and safety manager no longer needed, cymbalta increased, melatonin can be used for sleep. Hypotension, improved with IV cortef - relative adrenal insufficiency with AM cortisol 6 - Cortef decreased to 25 TID - on max dose of midodrine Acute kidney injury secondary to dehydration, improved - Cr now increasing due to forced diuresis -Avoid additional nephrotoxic agents -Near baseline -Nephrology recommendations appreciated Paroxysmal atrial fibrillation -Currently in sinus rhythm -No anticoagulation secondary to hemoptysis Alcohol abuse -[facility] protocol -Thiamine and folic acid supplementation Metabolic acidosis secondary to acute kidney injury, improved -Continue with oral sodium bicarb -Continue to follow levels Elevated troponin -Acute coronary syndrome ruled out -[place] to be secondary to acute renal failure Hyponatremia, improved Dehydration, resolved COPD, chronic without exacerbation Hypokalemia and hypomagnesemia, improved Hemoptysis, improved DVT prophylaxis: SCDs Discussed with: Patient, nursing, CM, Social work Anticipated discharge: 1-[address]: SNF A total of 30 minutes was spent on the care of this complex patient more than 50% of the time was spent in counseling and care coordination.
--- NOTE | 2018-11-16 16:28 | PN ---
PROGRESS NOTE Patient is seen for followup for acute kidney injury and hyponatremia. Serum sodium has improved from 125 on initial admission to about 133 currently. Patient is not on any IV fluids. He has received IV Lasix on and off for the last 2 days. This morning patient stated he was having chest pain and was also short of breath. On examination, blood pressure was 124/74, heart rate about 130 per minute. He is afebrile. EXAMINATION OF THE HEART: S1 and S2. EXAMINATION OF LUNGS: Bilateral breath sounds are heard. ABDOMEN: Soft, non-tender. Examination of lower extremities shows no significant edema. Labs show sodium 133, potassium 3.5, BUN 19, serum creatinine 1.3. Calcium was 8.8, magnesium 0.5 on 11/13/2018. ASSESSMENT: 1. Hyponatremia which is hypovolemic, currently improved. However, recently patient has received a few doses of IV Lasix. He is not hypovolemic currently. 2. Acute kidney injury secondary to hypoperfusion, improved. 3. Peripheral vascular disease, status post CT angiography on 11/09/2018. No plans for intervention. 4. Possible pneumonia, maintained on antibiotics. 5. Chronic obstructive pulmonary disease. 6. Paroxysmal atrial fibrillation, currently in sinus rhythm. PLAN: Will maintain patient on scheduled oral Lasix starting tomorrow. Patient is encouraged to increase oral protein intake. MMODL / IJN: [id number] /
[2018-11-16 16:56] LABS: Appearance,BF Clear; Color,BF Yellow; Nucleated Cells, Body Fluid 188 /uL; RBC, Body Fluid 260 /uL
[2018-11-16 17:14] LABS: Mononuclear WBC,Body Fluid 25 %; Polynuclear WBC,Body Fluid 75 %; Total Cells Counted,Body Fluid 100
[2018-11-16] MEDS: MELATONIN 3 MG TABLET PO SCH (21:02)
[2018-11-16] MEDS: ATORVASTATIN 40 MG TAB PO SCH (21:02)
[2018-11-17 00:58] LABS: Total Protein, Body Fluid 973 mg/dL
[2018-11-17 01:14] LABS: Glucose, BF Source Pleural Fluid; Glucose, Body Fluid 96 mg/dL
[2018-11-17 06:11] LABS: Anisocytosis Slight; HCT 29.5 % (39.0-53.0); HGB 9.7 gm/dL (13.0-17.5); MCH 34.5 pg (25.0-35.0); MCHC 32.8 g/dL (31.0-37.0); MCV 105.1 fL (80.0-100.0); Macrocytosis Moderate; Mean Platelet Volume 7.9; Platelet Count 311 k/uL (150-450); RBC 2.81 m/uL (4.30-5.90); WBC 8.9 k/uL (3.8-10.6)
[2018-11-17 06:20] LABS: Calcium 8.5 mg/dL (8.4-10.2); Magnesium 1.3 mg/dL (1.6-2.3)
--- NOTE | 2018-11-17 06:23 | PCN ---
PROCEDURE NOTE OPERATIVE REPORT: Right-sided thoracentesis. PREOPERATIVE DIAGNOSIS: Right pleural effusion. POSTOPERATIVE DIAGNOSIS: Right pleural effusion. ANESTHESIA USED: 2 mL of 1% lidocaine. PROCEDURE: The patient had his fluid already localized by ultrasound guidance earlier yesterday. He was placed in a sitting upright position, the area of which was marked by ultrasound which was 8th intercostal space and tip of the scapula was prepared in a sterile fashion and drapes were applied. The area was locally anesthetized with 2 mL of 1% lidocaine. Then, a 26-gauge needle was inserted at the same site and the fluid was localized with the needle. A small tiny incision was made at the same site, then a standard thoracentesis catheter and needle were inserted at the same site, advanced into the pleural space until the fluid was localized. Then the needle was pulled out of the pleural space and the catheter was advanced into the pleural space. Freely flowing fluid roughly 750 mL of slightly yellow fluid, freely moving, non bloody, was removed from the right pleural space uneventfully. Procedure was well tolerated, no evidence of any immediate complications. Chest x-ray was ordered postoperatively and it is pending at the time of this dictation. MMODL / IJN: [id number] /
[2018-11-17] MEDS: MIDODRINE 5 MG TAB PO SCH ×3 (06:26→17:29)
[2018-11-17] MEDS: THIAMINE 100 MG TAB PO SCH ×2 (06:26→17:29)
--- NOTE | 2018-11-17 07:35 | XR ---
EXAMINATION TYPE: XR chest 1V portable DATE OF EXAM: 11/17/2018 COMPARISON: Prior chest x-ray 11/16/2018 HISTORY: Pneumothorax, abnormal chest x-ray, congestive heart failure TECHNIQUE: Single frontal view of the chest is obtained. FINDINGS: Right-sided apical pneumothorax is again noted and shows a similar appearance to prior exa m. Pleural parenchymal changes are similar. Heart size is unchanged. Aorta shows dense calcification. IMPRESSION: Findings similar to prior exam. Pleural effusions and associated basilar edema versus pn eumonia or atelectasis. Pneumothorax is stable.
[2018-11-17] MEDS ORDERED: POTASSIUM BICARBONATE/CIT AC 20 MEQ TABLET.EFF PO ONE (08:30)
[2018-11-17] MEDS ORDERED: FUROSEMIDE 20 MG TAB PO SCH ×2 (09:00→12:00)
[2018-11-17] MEDS ORDERED: FUROSEMIDE 10 MG/ML 4 ML VIAL IV SCH ×2 (09:00→12:19)
[2018-11-17] MEDS: PIPERACILLIN-TAZOBACTAM 3.375 GM in SODIUM CHLORIDE 0.9% 100 ML IVPB SCH ×2 (09:57→15:42)
[2018-11-17] MEDS: CILOSTAZOL 100 MG TAB PO SCH ×2 (09:58→21:16)
[2018-11-17] MEDS: SODIUM BICARBONATE TAB 650 MG TAB PO SCH ×2 (09:58→21:15)
[2018-11-17] MEDS: NICOTINE 21MG/24HR PATCH TRANSDERM SCH (09:58)
[2018-11-17] MEDS: PANTOPRAZOLE 40 MG TABLET PO SCH (09:59)
[2018-11-17] MEDS: HYDROCORTISONE 20 MG TAB PO SCH ×3 (09:59→21:16)
[2018-11-17] MEDS: MULTIVITAMINS, THERA 1 EACH TAB PO SCH (09:59)
[2018-11-17] MEDS: GABAPENTIN 300 MG CAP PO SCH ×3 (09:59→22:09)
[2018-11-17] MEDS: DICYCLOMINE 10 MG CAP PO SCH ×3 (09:59→21:15)
[2018-11-17] MEDS: DULoxetine HCL 60 MG CAPSULE.DR PO SCH (09:59)
[2018-11-17] MEDS: MAGNESIUM SULFATE-D5W PMX 1 GM in DEXTROSE/WATER 1 100ML.BAG IVPB SCH ×4 (11:22→14:47)
--- NOTE | 2018-11-17 12:01 | P.PN ---
Subjective Progress Note Date: 11/17/18 Principal diagnosis: foot pain Patient is a 63-year-old male past medical history of atrial fibrillation, COPD, hypertension, coronary artery disease with percutaneous in tervention, diverticulitis status post ostomy creation, Reynaud's syndrome, and generalized chronic pain who presented to the emergency department with complaints of suicidal ideation, left toe discoloration, and severe pain. In the ER he underwent an extensive evaluation. He was initially hypotensive at 82/64 but responded to IV fluids. Laboratory analysis showed a leukocytosis of 13.1, sodium 125, bicarbonate 18, BUN 48, and creatinine 1.85. Lactic acid was noted to be elevated at 2.1. Troponin was also elevated at 0.141. Chest x-ray showed findings of COPD and osteophyte formation with concern for possible increased risk of lung cancer. Follow-up CT scan was recommended. He was ad mitted for possible cellulitis with sepsis of the left lower extremity and troponin elevation with history of coronary artery disease. He was started on IV fluids, troponins were trended, and Rocephin was started with concern for cellulitis. He was also started on normal saline due to his acute kidney injury. He was seen by vascular surgery who felt that the patient likely had significant peripheral arterial disease. Patient was on a heparin drip. His dose of oral sodium bicarb was increased. Lower extremity arterial imaging revealed normal ABIs. CTA with runoff was obtained which showed minor atherosclerotic calcifications with reconstruction. Vascular surgery felt that he had reynauds Disease as he was getting adequate waves forms and small vessel disease. They recommended conservative treatment including Pletal, Calcium channel lula if BP stable. Due to his elevated troponins he underwent an echocardiogram that showed mild LVH, ejection fraction 55-60% and was otherwise unremarkable. Cardiology felt his elevated troponin likely secondary to renal insufficiency. Nephrology was consulted and Midodrin was added to optimize blood pressures. Patient continued not being able to handle the pain anymore and wanted to "end it all" due to pain. He initially would not see psychiatry. He stated his suicidal thoughts were secondary to pain. He was seen by psychiatry and was determined he does not require inpatient psychiatric hospitalization. His Percocet was increased as well as his Neurontin. Pain management was consulted who agreed with these changes. His heparin drip was stopped and was started on Eliquis by cardiology. Overnight on 9/4 he developed significant hemoptysis, His eliquis was stopped. He was noted to have worsening anemia. He underwent a CT of the chest which demonstrated bilateral pleural effusions with diffuse infiltrate throughout the right lung most typical of pneumonia or pneumonitis. He received lasix on 11/10, 11/11, and 11/12. Patient was started on Zithromax and Zosyn. Pulmonary was consulted, felt more consistent with fluid overload. On the morning of 11/12 he continued to have some hemoptysis. He continued to have low blood pressure and had been maximized on midodrine and florinef was added, cortisol was low normal at 6 in the morning. This was anticipated to be higher due to his acute illness. Cortef was added for possible adrenal insufficiency. Still with low blood pressure and switched to IV cortef which seemed to resolve improve low BP. He has recurrent bilateral pleural effusions and underwent thoracentesis on 11/16/18, he had a small apical pleural effusion. Patient seen and examined at bedside. C/O being tired, no chest pain, breathing better than yesterday, no nausea, no vomiting. Objective - Vital Signs Vital signs: Vital Signs Temp 97.2 F L 11/17/18 08:15 Pulse 102 H 11/17/18 08:15 Resp 20 11/17/18 08:15 BP 78/48 11/17/18 08:15 Pulse Ox 100 11/17/18 08:15 Intake & Output 11/16/18 11/17/18 11/17/18 18:59 06:59 18:59 Intake Total 400 100 Output Total 1825 500 Balance -1425 -400 Intake: Intake, IV Titration 100 Amount Piperacillin-Tazobactam 3 100 .375 gm In Sodium Chloride 0.9% 100 ml @ 25 mls/hr IVPB Q8HR [facility] Rx# :[id number] Oral 400 Output: Urine 1825 500 Other: Voiding Method Urinal Urinal # Voids 1 1 # Bowel Movements 1 - Exam General: non toxic, no distress, appears older than stated age, cachectic with temporal wasting Derm: warm, dry, multiple pock maria Head: atraumatic, normocephalic, symmetric Eyes: EOMI, no lid lag, anicteric sclera Mouth: no lip lesion, mucus membranes dry CV: S1 and S2 regular, no edema bilateral, no palpable posterior tibial pulses bilateral Lungs: CTA bilateral, no accessory muscle use, no wheezing, no conversational dyspnea Ext: no gross muscle atrophy, no edema, no contractures Neuro: CN II-XI grossly intact, Moving all 4 extremities independently. Psych: Alert, oriented, angry and threatening in nature. Appears to be expressing manipulative behaviors. - Labs CBC & Chem 7: 11/17/18 05:35 11/17/18 05:35 Labs: Abnormal Lab Results - Last 24 Hours (Table) 11/17/18 11/17/18 Range/Units 05:35 05:35 RBC 2.81 L (4.30-5.90) m/uL Hgb 9.7 L (13.0-17.5) gm/dL Hct 29.5 L (39.0-53.0) % MCV 105.1 H (80.0-100.0) fL RDW 16.0 H (11.5-15.5) % Sodium 134 L (137-145) mmol/L Potassium 3.0 L (3.5-5.1) mmol/L Chloride 94 L (98-107) mmol/L Carbon Dioxide 31 H (22-30) mmol/L BUN 22 H (9-20) mg/dL Creatinine 1.34 H (0.66-1.25) mg/dL Magnesium 1.3 L (1.6-2.3) mg/dL Microbiology - Last 24 Hours (Table) 11/16/18 14:30 Acid Fast Bacilli Smear - Final Pleural Fluid Acid Fast Bacilli Culture - Preliminary 11/16/18 14:30 Gram Stain - Preliminary Pleural Fluid Body Fluid Culture - Preliminary 11/16/18 14:30 Fungal Culture - Preliminary Pleural Fluid 11/16/18 14:30 Anaerobic Culture - Preliminary Pleural Fluid Assessment and Plan Assessment: Pneumonia, possible gram negative with -WBC decreased after ABX started, low increased due to steroids. -Hemoptysis improving -Zithromax completed and Zosyn X 24 more hours -Pulm recs appreciated -Follow CBC Small bilateral pleural effusions - S/P thoracentesis 11/16 with small apical pneumothorax - limit lasix due to hypotension and worsening renal function, discussed with Dr. Heredia. Severe pain in lower extremity secondary to Reynauds and peripheral arterial disease -Vascular surgery recommendations appreciated. Proceed with medical management. Pletal was added, no calcium channel lula due to low BP at this time. -Continue with Percocet 10/, neurontin (incresad 11/14), cymbalta (increased 11/15 1st dose 11/16) -Pain management recommendations appreciated -Suicidal verbal expressions secondary to uncontrolled pain. Pain medication regimen has been optimized. -Psychiatry recommendations: Manipulative behaviors, no need for inpatient psych, product safety coordinator no longer needed, cymbalta increased, melatonin can be used for sleep. Hypotension - transitioned to oral cortef 20 TID - relative adrenal insufficiency with AM cortisol 6 - on max dose of midodrine Acute kidney injury secondary to dehydration, improved - Cr now increasing due to forced diuresis. D/W nephro and oral lasix only -Avoid additional nephrotoxic agents -Near baseline -Nephrology recommendations appreciated Paroxysmal atrial fibrillation -Currently in sinus rhythm -No anticoagulation secondary to hemoptysis Alcohol abuse -[facility] protocol -Thiamine and folic acid supplementation Metabolic acidosis secondary to acute kidney injury, improved -Continue with oral sodium bicarb -Continue to follow levels Elevated troponin -Acute coronary syndrome ruled out -[place] to be secondary to acute renal failure Hyponatremia, improved Dehydration, resolved COPD, chronic without exacerbation Hypokalemia and hypomagnesemia, improved Hemoptysis, improved [place] to [place] in AM DVT prophylaxis: SCDs Discussed with: Patient, nursing, CM, Social work Anticipated discharge: in AM Anticipated discharge place: SNF A total of 30 minutes was spent on the care of this complex patient more than 50% of the time was spent in counseling and care coordination.
[2018-11-17 12:23] LABS: Glucose,Whole Blood 125 mg/dL (75-99)
[2018-11-17] MEDS: POTASSIUM CHLORIDE 10 MEQ in WATER FOR INJECTION 1 100ML.BAG IVPB SCH ×4 (12:29→15:56)
--- NOTE | 2018-11-17 13:09 | P.PN ---
Subjective Progress Note Date: 11/17/18 Principal diagnosis: Acute hypoxic respiratory failure with bilateral pleural effusions and right lung consolidation related to pulmonary edema and right lung pneumonia A 63-year-old male patient quite debilitated with multiple medical problems and comorbidities who initially came into the hospital because of foot pain. Note that the patient has multiple other medical issues and we will consult on the patient knowing that he has developed a worsening shortness of breath with bilateral pleural effusion and possible right lung pneumonia. This patient has history of COPD, coronary artery disease, hypertension, atrial fibrillation, previous complicated diverticulitis requiring and ostomy creation, history of peripheral vascular disease and the patient presented with pain in the lower extremity and there was a concern of a acute ischemic leg. The patient was having pain in his left foot and the patient had been done on for the past several months. He had also discolored toes which has been a chronic problem. The patient underwent further CT angiogram that showed atherosclerotic calcification throughout and on the right anterior tibial artery was occluded in the upper leg and there was two-vessel runoff into the foot through the peroneal artery and on the left there was a 2 vessel runoff into the foot through the peroneal artery also. The patient was started on Pletal and no further vascular intervention was planned for this patient. During the course of his treatment, the patient came in with a creatinine of 1.8. The patient was given IV fluids. Creatinine gradually improved with IV fluids. His troponins were slightly elevated at time of admission and gradually down trended. His acute kidney injury also improved. Echo of the heart showed mild LVH with an ejection fraction of 55-60% otherwise unremarkable. Cardiology evaluated the patient and no acute cardiac intervention is being planned. Nephrology also evaluated the patient and midodrine was added to optimize the blood pressure. He was complaining of chronic pain for which pain management was involved. He was complaining of increased depression and threatening of suicide and for that reason a psychiatric evaluation was question and the patient was given a 24-hour sitter at the bedside. Subsequently the patient developed some hemoptysis. He was on IV heparin and the level was supratherapeutic. A CAT scan of the chest was done and showed bilateral pleural effusion and addition to diffuse infiltration of the right lung compared to the left consistent with either asymmetric pulmonary edema or right lung pneumonia. The patient was started on a combination of Zithromax and Zosyn. On the morning of 11/12/2018 the patient was having some limited hemoptysis still in small amounts. No nausea. No vomiting. No GI bleeding. No other complaints otherwise for now. He is not receiving any form of diuretics at this point in time. The patient is seen today 11/13/2018 in follow-up on the selective care unit. He is currently sitting up in bed. Awake and alert in no acute distress. HEENT O2 saturations in the low 90s on 2 L/m per nasal cannula. He's been afebrile. Sputum culture pending. White count 8.1. Hemoglobin 9.1. Potassium 2.8. Creatinine 1.36. He is maintained on DuoNeb inhalations, Zosyn and azithromycin. On 11/14/2018 the patient is resting comfortably in bed. Nevertheless she is still cough and not bloody mucus. A repeat chest x-ray was done today showed increased confluence and multifocal opacities most compatible with multilobar pneumonia. He remains on a combination of Zosyn and Zithromax. I do suspect a component of fluid/CHF/interstitial edema as the patient has also bilateral pleural effusion. He'll be started on Lasix today. Despite this worsening in his chest x-ray findings, his white blood count remains nonelevated at 5.3. Hemoglobin is at 8.3. His renal function stable with a creatinine of 1.2. Sputum sample that was sent for Gram stain and culture and the results are still pending for now. He continues to have a depressed mood and there is a 24 hour sitter at the bedside at all times. On 11/15/2018 patient seen in follow-up on selective care unit. He is awake and alert, still has a highway safety engineer at the bedside apparently the patient is impulsive at times, and one at to leave AMA however she is unable to ambulate. Denies any dyspnea, he is only complaint is some left foot pain. No cough or congestion. NO chest wall discomfort. Room air pulse ox is 98%, his been afebrile, blood urine and sputum cultures are negative. These labs have been reviewed, showing white blood cell count of 4.5, hemoglobin of 8.6, serum sodium is 1:30, the rest of electrolytes and renal profile were within normal limits. Patient has been treated with a combination of antibiotics in the form of Zithromax, Zosyn and Lasix, Lasix has been discontinued. Yesterday's chest x- ray showed increasing confluence of the multifocal opacity compatible with multifocal pneumonia and small parapneumonic effusions. Clinically patient remains stable. Patient is on IV fluid restriction for hyponatremia, today sodium is 1:30, Lasix is on hold per nephrology, and IV hydrocortisone was added for hypertension, midodrine has been added On 11/16/2018 patient seen in follow-up on selective care unit. Yesterday he received an extra dose of IV Lasix, and today he is in -1095 ML fluid balance, lung sounds reveal extremely diminished breath sounds over bilateral bases, right greater than left. Scattered crackles, no significant wheezes, he states he still having some persistent hemoptysis. Feels short of breath, although does not appear to be in any acute distress, currently on 2-3 L of oxygen with a pulse ox of 94%, he is tachycardic, generally weak. Complains of intermittent pain in his left foot, and abdomen, no nausea or vomiting. Follow-up chest x- ray was obtained showing increased interstitium, bilateral pleural effusions versus pneumonia. Ultrasound of the chest has been ordered and pending at this time. On today's labs there is slight worsening of patient's renal function, with creatinine up to 1.3 from yesterday's labs of 1.16. Serum sodium is 133, potassium is 3.5, chloride is 96. No complaints of chest pain, his pro- calcitonin is actually down trending, last one on 11/13/2018 was down to 0.55 from 0.78. White count is 11.3, hemoglobin is 10.1. Urine, blood and sputum cultures are negative thus far, she has been afebrile. Remains on a combination of Zithromax and Zosyn. On 11/17/2018 patient is seen in follow-up on selective care unit, still complaining of pain, but states that his shortness of breath seems to have improved since the thoracentesis yesterday would removal of 700 mL of pleural fluid. Pleural fluid analysis shows transudative fluid, and pleural fluid cultures are pending. Patient had a postprocedural pneumothorax on the right, clinically remains stable, follow-up chest x-ray today was obtained showing stable right-sided apical pneumothorax. Findings similar to prior exam, pleural effusions and basilar edema. Patient was given a dose of IV Lasix yesterday and he is maintaining negative fluid balance, he is in -1825 mL fluid balance over the last 24 hours. However patient did become hypotensive with a blood pressures of 70/40, and his IV diuretics were held this morning. The decision was made to transfer the patient to the intensive care unit for close hemodynamic monitoring, hypotension, and start the patient on levo fed for blood pressure support, patient is on maximum dose of midodrine, his hydrocortisone dose is being tapered. We'll continue with IV diuretics, and IV antibiotics. Objective - Vital Signs Vital signs: Vital Signs Temp 97.2 F L 11/17/18 08:15 Pulse 102 H 11/17/18 08:15 Resp 20 11/17/18 08:15 BP 78/48 11/17/18 08:15 Pulse Ox 100 11/17/18 08:15 Intake & Output 11/16/18 11/17/18 11/17/18 18:59 06:59 18:59 Intake Total 400 100 Output Total 1825 500 Balance -1425 -400 Intake: Intake, IV Titration 100 Amount Piperacillin-Tazobactam 3 100 .375 gm In Sodium Chloride 0.9% 100 ml @ 25 mls/hr IVPB Q8HR [facility] Rx# :[id number] Oral 400 Output: Urine 1825 500 Other: Voiding Method Urinal Urinal # Voids 1 1 # Bowel Movements 1 - Exam GENERAL EXAM: Alert, slightly withdrawn, but fairly cooperative 63-year-old white male, in mild amount of distress from pain from different sources, including left foot, and discomfort with deep breathing and coughing in his right posterior chest however there breath sounds heard bilaterally, equal air entry bilaterally HEAD: Normocephalic/atraumatic. EYES: Normal reaction of pupils, equal size. Conjunctiva pink, sclera white. NOSE: Clear with pink turbinates. THROAT: No erythema or exudates. NECK: No masses, no JVD, no thyroid enlargement, no adenopathy. CHEST: No chest wall deformity. Symmetrical expansion. LUNGS: Extremely diminished air entry at bilateral bases entry with some scattered crackles, no wheeze, rhonchi or dullness. CVS: Regular rate and rhythm, normal S1 and S2, no gallops, no murmurs, no rubs ABDOMEN: Soft, nontender. No hepatosplenomegaly, normal bowel sounds, no guarding or rigidity. EXTREMITIES: No clubbing, no edema, no cyanosis, + pulses and upper and lower extremities. Left second toe on the left foot is slightly dusky, but there are palpable pedal pulses. MUSCULOSKELETAL: Muscle strength and tone normal. SPINE: No scoliosis or deformity SKIN: No rashes CENTRAL NERVOUS SYSTEM: Alert and oriented -3. No focal deficits, tone is normal in all 4 extremities. PSYCHIATRIC: Alert and oriented -3. Appropriate affect. Intact judgment and insight. - Labs CBC & Chem 7: 11/17/18 05:35 11/17/18 05:35 Labs: Abnormal Lab Results - Last 24 Hours (Table) 11/17/18 11/17/18 Range/Units 05:35 05:35 RBC 2.81 L (4.30-5.90) m/uL Hgb 9.7 L (13.0-17.5) gm/dL Hct 29.5 L (39.0-53.0) % MCV 105.1 H (80.0-100.0) fL RDW 16.0 H (11.5-15.5) % Sodium 134 L (137-145) mmol/L Potassium 3.0 L (3.5-5.1) mmol/L Chloride 94 L (98-107) mmol/L Carbon Dioxide 31 H (22-30) mmol/L BUN 22 H (9-20) mg/dL Creatinine 1.34 H (0.66-1.25) mg/dL Magnesium 1.3 L (1.6-2.3) mg/dL Microbiology - Last 24 Hours (Table) 11/16/18 14:30 Acid Fast Bacilli Smear - Final Pleural Fluid Acid Fast Bacilli Culture - Preliminary 11/16/18 14:30 Gram Stain - Preliminary Pleural Fluid Body Fluid Culture - Preliminary 11/16/18 14:30 Fungal Culture - Preliminary Pleural Fluid 11/16/18 14:30 Anaerobic Culture - Preliminary Pleural Fluid Assessment and Plan Plan: Assessment: 1 acute hypoxic respiratory failure with bilateral pleural effusions and asymmetric right lung consolidation, multifactorial, related to acute exacerbation of congestive heart failure with diastolic dysfunction and right lung pneumonia. The patient continues to have hemoptysis and the patient is having worsening in bilateral pulmonary infiltrates and bilateral pleural effusion on today's chest x-ray. Remains on a commodation of Zithromax and Zosyn. Sputum has been sent for Gram stain and culture and the results are still pending for now. On 11/17/2018 patient continues to have complaints of shortness of breath, he remains afebrile, he is been given intermittent doses of IV diuretics, and he did have a right-sided thoracentesis on 11/16/2018 would removal of 700 mL of pleural fluid which was sent for cultures, cytology and analysis. Pleural fluid analysis shows transudate of fluid consistent with congestive heart failure. Patient needs further diuresis however he is hypotensive requiring transfer to the intensive care unit and initiation of vasopressors. 2 bilateral pleural effusions, likely related to acute exacerbation of congestive heart failure, status post right-sided thoracentesis would removal of 700 mL of pleural fluid on 11/16/2018, pleural fluid analysis showing transudate of fluid 3 post procedural small right apical pneumothorax, clinically patient is asymptomatic, stable on follow-up chest x-ray 4 hypotension, related to a combination of adrenal insufficiency, diuretic therapy, and narcotics 5 hemoptysis secondary to above, and has further by anticoagulation, currently inactive in stable 6 coronary artery disease 7 COPD 8 peripheral vascular disease with chronic pain lower extremities in addition to some cyanosis and Raynaud's phenomena 9 paroxysmal atrial fibrillation current rhythm is sinus 10 acute kidney injury recovered 11 troponin leak 12 dehydration/intravascular volume depletion, recovered 13 depression with suicidal intention/ideations currently on close observation with a bedside sitter and psychiatric evaluation was also requested Plan: Patient will be transferred to the intensive care unit, will start Levophed for hemodynamic support, IV diuretics will continue. Follow-up chest x-ray tomorrow morning, continue same antibiotics, pleural fluid cultures are pending, pleural fluid analysis consistent with transudative fluid of congestive heart failure, overall prognosis is quite guarded. Nebulized bronchodilators. We'll continue to closely follow. I performed a history & physical examination of the patient and discussed their management with my nurse practitioner, Carolee Robison. I reviewed the nurse practitioner's note and agree with the documented findings and plan of care. Lung sounds are positive for scattered rhonchi. The findings and the impression was discussed with the patient. I attest to the documentation by the nurse practitioner. Time with Patient: Less than 30
[2018-11-17] MEDS: NOREPINEPHRINE 4 MG in SODIUM CHLORIDE 0.9% 250 ML IV SCH (13:53)
[2018-11-17] MEDS: TAMSULOSIN 0.4 MG CAP.ER.24H PO SCH ×2 (14:50→17:30)
--- NOTE | 2018-11-17 15:31 | PN ---
PROGRESS NOTE Patient is seen for followup for hyponatremia and acute kidney injury. His renal function is stable with serum creatinine at 1.3 mg/dL. PHYSICAL EXAMINATION: This morning, patient is lying in bed. He is comfortable. He is not in any acute distress. Blood pressure this morning was 90/66. Patient is afebrile. Heart rate about 100 per minute. Examination of the heart S1, S2. Examination of the lungs, bilateral breath sounds are heard. Bilateral crackles are heard as well. Abdomen is soft, nontender. Examination of the lower extremities shows no evidence of edema. LABS: Show sodium 134, potassium 3.0, BUN 22, serum creatinine 1.34 this morning. Magnesium was 1.3. ASSESSMENT: 1. Acute kidney injury, nonoliguric, renal function fairly stable. 2. Right pneumothorax. 3. Paroxysmal atrial fibrillation, currently in sinus rhythm. 4. Hypotension with high suspicion for adrenal cyst insufficiency, maintained on oral Cortef and midodrine. 5. Metabolic acidosis, currently resolved. 6. Hyponatremia, currently improved and stable. PLAN: Replace potassium, repeat chest x-ray in a.m. If blood pressure remains low. Hold off on the diuretics. MMODL / IJN: [id number] /
[2018-11-17] MEDS: oxyCODONE-APAP 10-325MG 1 EACH TAB PO PRN ×2 (15:32→20:48)
[2018-11-17 19:06] LABS: Magnesium 2.5 mg/dL (1.6-2.3); Potassium 2.8 mmol/L (3.5-5.1)
[2018-11-17] MEDS ORDERED: POTASSIUM CHLORIDE 10 MEQ in WATER FOR INJECTION 1 100ML.BAG IVPB SCH (20:00)
[2018-11-17] MEDS: ATORVASTATIN 40 MG TAB PO SCH (20:48)
[2018-11-17] MEDS: POTASSIUM CHLORIDE ER 20 MEQ TAB.ER PO SCH ×3 (20:48→23:34)
[2018-11-17] MEDS: MELATONIN 3 MG TABLET PO SCH (22:08)
[2018-11-18] MEDS: PIPERACILLIN-TAZOBACTAM 3.375 GM in SODIUM CHLORIDE 0.9% 100 ML IVPB SCH ×3 (00:13→15:48)
[2018-11-18] MEDS: FUROSEMIDE 10 MG/ML 4 ML VIAL IV SCH ×3 (00:17→23:43)
[2018-11-18] MEDS ORDERED: DILTIAZEM DRIP BOLUS FROM BAG 1 MG SOLN IV ONE (01:44)
[2018-11-18] MEDS ORDERED: DILTIAZEM 125 MG in SODIUM CHLORIDE 0.9% 100 ML IV SCH (01:45)
[2018-11-18] MEDS: NOREPINEPHRINE 4 MG in SODIUM CHLORIDE 0.9% 250 ML IV SCH ×2 (01:48→18:30)
[2018-11-18 04:04] LABS: HCT 30.1 % (39.0-53.0); HGB 10.4 gm/dL (13.0-17.5); MCH 35.8 pg (25.0-35.0); MCHC 34.4 g/dL (31.0-37.0); MCV 104.1 fL (80.0-100.0); Macrocytosis Moderate; Mean Platelet Volume 8.1; Platelet Count 303 k/uL (150-450); RBC 2.89 m/uL (4.30-5.90); RDW 15.3 % (11.5-15.5); WBC 10.2 k/uL (3.8-10.6)
[2018-11-18 04:21] LABS: Calcium 8.5 mg/dL (8.4-10.2); Magnesium 2.1 mg/dL (1.6-2.3)
[2018-11-18] MEDS: MIDODRINE 5 MG TAB PO SCH ×3 (06:49→17:09)
[2018-11-18] MEDS: POTASSIUM CHLORIDE ER 20 MEQ TAB.ER PO SCH ×8 (06:50→22:10)
[2018-11-18] MEDS: THIAMINE 100 MG TAB PO SCH ×2 (06:50→17:09)
[2018-11-18] MEDS ORDERED: Potassium Replacement Protocol 1 EACH MISC MISCELLANE PRN (07:31)
[2018-11-18] MEDS: MULTIVITAMINS, THERA 1 EACH TAB PO SCH (08:53)
[2018-11-18] MEDS: GABAPENTIN 300 MG CAP PO SCH ×3 (08:53→22:10)
[2018-11-18] MEDS: CILOSTAZOL 100 MG TAB PO SCH ×2 (08:54→22:10)
[2018-11-18] MEDS: SODIUM BICARBONATE TAB 650 MG TAB PO SCH ×2 (08:54→22:10)
[2018-11-18] MEDS: DICYCLOMINE 10 MG CAP PO SCH ×3 (08:55→22:10)
[2018-11-18] MEDS: HYDROCORTISONE SUCCINATE 100 MG/2 ML VIAL IV SCH ×5 (08:58→23:43)
[2018-11-18] MEDS: NICOTINE 21MG/24HR PATCH TRANSDERM SCH (08:58)
[2018-11-18] MEDS: PANTOPRAZOLE 40 MG TABLET PO SCH (08:58)
[2018-11-18] MEDS: DULoxetine HCL 60 MG CAPSULE.DR PO SCH (09:02)
[2018-11-18] MEDS: oxyCODONE-APAP 10-325MG 1 EACH TAB PO PRN ×3 (09:10→23:50)
--- NOTE | 2018-11-18 11:16 | XR ---
EXAMINATION TYPE: XR chest 1V portable DATE OF EXAM: 11/18/2018 COMPARISON: Prior chest x-ray 11/17/2018 HISTORY: Pneumothorax, congestive heart failure TECHNIQUE: Single frontal view of the chest is obtained. FINDINGS: Minimal apical right pneumothorax persists. Pleural parenchymal changes show similar appea juan to prior exam, there may be some improvement in aeration, in the interstitium. Heart size is li demond unchanged. There are overlying cardiac leads. IMPRESSION: There may be some improvement in aeration.
--- NOTE | 2018-11-18 11:46 | P.PN ---
Subjective Progress Note Date: 11/18/18 Principal diagnosis: acute hypoxic respiratory failure, related to pulmonary edema and the right lung pneumonia A 63-year-old male patient quite debilitated with multiple medical problems and comorbidities who initially came into the hospital because of foot pain. Note that the patient has multiple other medical issues and we will consult on the patient knowing that he has developed a worsening shortness of breath with bilateral pleural effusion and possible right lung pneumonia. This patient has history of COPD, coronary artery disease, hypertension, atrial fibrillation, previous complicated diverticulitis requiring and ostomy creation, history of peripheral vascular disease and the patient presented with pain in the lower extremity and there was a concern of a acute ischemic leg. The patient was having pain in his left foot and the patient had been done on for the past several months. He had also discolored toes which has been a chronic problem. The patient underwent further CT angiogram that showed atherosclerotic calcification throughout and on the right anterior tibial artery was occluded in the upper leg and there was two-vessel runoff into the foot through the peroneal artery and on the left there was a 2 vessel runoff into the foot through the pe roneal artery also. The patient was started on Pletal and no further vascular intervention was planned for this patient. During the course of his treatment, the patient came in with a creatinine of 1.8. The patient was given IV fluids. Creatinine gradually improved with IV fluids. His troponins were slightly elevated at time of admission and gradually down trended. His acute kidney injury also improved. Echo of the heart showed mild LVH with an ejection fraction of 55-60% otherwise unremarkable. Cardiology evaluated the patient and no acute cardiac intervention is being planned. Nephrology also evaluated the patient and midodrine was added to optimize the blood pressure. He was com plaining of chronic pain for which pain management was involved. He was complaining of increased depression and threatening of suicide and for that reason a psychiatric evaluation was question and the patient was given a 24-hour sitter at the bedside. Subsequently the patient developed some hemoptysis. He was on IV heparin and the level was supratherapeutic. A CAT scan of the chest was done and showed bilateral pleural effusion and addition to diffuse infiltration of the right lung compared to the left consistent with either asymmetric pulmonary edema or right lung pneumonia. The patient was started on a combination of Zithromax and Zosyn. On the morning of 11/12/2018 the patient was having some limited hemoptysis still in small amounts. No nausea. No vomiting. No GI bleeding. No other complaints otherwise for now. He is not receiving any form of diuretics at this point in time. The patient is seen today 11/13/2018 in follow-up on the selective care unit. He is currently sitting up in bed. Awake and alert in no acute distress. HEENT O2 saturations in the low 90s on 2 L/m per nasal cannula. He's been afebrile. Sputum culture pending. White count 8.1. Hemoglobin 9.1. Potassium 2.8. Creatinine 1.36. He is maintained on DuoNeb inhalations, Zosyn and azithromyci n. On 11/14/2018 the patient is resting comfortably in bed. Nevertheless she is still cough and not bloody mucus. A repeat chest x-ray was done today showed increased confluence and multifocal opacities most compatible with multilobar pneumonia. He remains on a combination of Zosyn and Zithromax. I do suspect a component of fluid/CHF/interstitial edema as the patient has also bilateral pleural effusion. He'll be started on Lasix today. Despite this worsening in his chest x-ray findings, his white blood count remains nonelevated at 5.3. Hemoglobin is at 8.3. His renal function stable with a creatinine of 1.2. Sputum sample that was sent for Gram stain and culture and the results are still pending for now. He continues to have a depressed mood and there is a 24 hour sitter at the bedside at all times. On 11/15/2018 patient seen in follow-up on selective care unit. He is awake and alert, still has a health and safety consultant at the bedside apparently the patient is impulsive at times, and one at to leave AMA however she is unable to ambulate. Denies any dyspnea, he is only complaint is some left foot pain. No cough or congestion. NO chest wall discomfort. Room air pulse ox is 98%, his been afebrile, blood urine and sputum cultures are negative. These labs have been reviewed, showing white blood cell count of 4.5, hemoglobin of 8.6, serum sodium is 1:30, the rest of electrolytes and renal profile were within normal limits. Patient has been treated with a combination of antibiotics in the form of Zithromax, Zosyn and Lasix, Lasix has been discontinued. Yesterday's chest x- ray showed increasing confluence of the multifocal opacity compatible with multifocal pneumonia and small parapneumonic effusions. Clinically patient remains stable. Patient is on IV fluid restriction for hyponatremia, today sodium is 1:30, Lasix is on hold per nephrology, and IV hydrocortisone was added for hypertension, midodrine has been added On 11/16/2018 patient seen in follow-up on selective care unit. Yesterday he received an extra dose of IV Lasix, and today he is in -1095 ML fluid balance, lung sounds reveal extremely diminished breath sounds over bilateral bases, right greater than left. Scattered crackles, no significant wheezes, he states he still having some persistent hemoptysis. Feels short of breath, although does not appear to be in any acute distress, currently on 2-3 L of oxygen with a pulse ox of 94%, he is tachycardic, generally weak. Complains of intermittent pain in his left foot, and abdomen, no nausea or vomiting. Follow-up chest x- ray was obtained showing increased interstitium, bilateral pleural effusions versus pneumonia. Ultrasound of the chest has been ordered and pending at this time. On today's labs there is slight worsening of patient's renal function, with creatinine up to 1.3 from yesterday's labs of 1.16. Serum sodium is 133, p otassium is 3.5, chloride is 96. No complaints of chest pain, his pro- calcitonin is actually down trending, last one on 11/13/2018 was down to 0.55 from 0.78. White count is 11.3, hemoglobin is 10.1. Urine, blood and sputum cultures are negative thus far, she has been afebrile. Remains on a combination of Zithromax and Zosyn. On 11/17/2018 patient is seen in follow-up on selective care unit, still complaining of pain, but states that his shortness of breath seems to have improved since the thoracentesis yesterday would removal of 700 mL of pleural fluid. Pleural fluid analysis shows transudative fluid, and pleural fluid cultures are pending. Patient had a postprocedural pneumothorax on the right, clinically remains stable, follow-up chest x-ray today was obtained showing stable right-sided apical pneumothorax. Findings similar to prior exam, pleural effusions and basilar edema. Patient was given a dose of IV Lasix yesterday and he is maintaining negative fluid balance, he is in -1825 mL fluid balance over the last 24 hours. However patient did become hypotensive with a blood pressures of 70/40, and his IV diuretics were held this morning. The decision was made to transfer the patient to the intensive care unit for close hemodynamic monitoring, hypotension, and start the patient on levo fed for blood pressure support, patient is on maximum dose of midodrine, his hydrocortisone dose is being tapered. We'll continue with IV diuretics, and IV antibiotics. Patient was reevaluated today on 11/18/2018, he was transferred yesterday from the cardiac floor to the ICU mostly because he was running low blood pressure. I wanted to continue the Lasix, hence I recommended moving the patient to the ICU, started the patient on norepinephrine and continue the Lasix at 40 mg IV push every 12 hours. Patient is feeling a bit better today, breathing easier, chest x-ray is showing improved aeration in the right midlung and right lower lobe area, however continues to have evidence of interstitial edema and possibly some air space disease involving the right lower lobe. His urine output is better with the Lasix and with the norepinephrine on board. Patient is presently on norepinephrine at 0.08 mcg/kg/m. Blood pressures improved however the patient went on to develop recurrent episodes of atrial fibrillation and he was placed on Cardizem drip. He is presently on 5 mg per hour. Remains on antibiotics, remains on diuretics, and he remains on stress doses of hydroc ortisone. I believe the patient is showing definite improvement in the last 24 hours.his renal functioning is even improved creatinine is down to 1.19 from 1.34 . I have no plans of holding diuretics at this point.the pleural effusion was transudate of in nature. The right-sided iatrogenic pneumothorax is almost resolved, barely seen in the right apex. Clinically again the patient is feeling a bit better he continues to have aches and pains. But his pulmonary status is improved. Objective - Vital Signs Vital signs: Vital Signs Temp 97.8 F 11/18/18 09:00 Pulse 89 11/18/18 11:00 Resp 12 11/18/18 11:00 BP 93/68 11/18/18 11:00 Pulse Ox 95 11/18/18 11:00 Intake & Output 11/17/18 11/18/18 11/18/18 18:59 06:59 18:59 Intake Total 1020 479.250 435.784 Output Total 1750 1865 395 Balance -730 -1385.750 40.784 Weight 59.5 kg Intake: IV 920 340 200 Magnesium Sulfate-D5w Pmx 300 1 gm In Dextrose/Water 1 100ml.bag @ 100 mls/hr IVPB Q1H [facility] Rx#: [id number] Normal Saline 120 240 100 Piperacillin-Tazobactam 3 100 100 .375 gm In Sodium Chloride 0.9% 100 ml @ 25 mls/hr IVPB Q8HR [facility] Rx# :[id number] Potassium Chloride 10 meq 400 100 In Water For Injection 1 100ml.bag @ 100 mls/hr IVPB Q1H [facility] Rx#: [id number] Intake, IV Titration 39.250 85.784 Amount Diltiazem 125 mg In 44.667 Sodium Chloride 0.9% 100 ml @ 5 MG/HR 5 mls/hr IV .Q24H [facility] Rx#:[id number] Norepinephrine 4 mg In 39.250 41.117 Sodium Chloride 0.9% 250 ml @ 0.05 MCG/KG/MIN 11. 906 mls/hr IV .[id number] [facility] Rx#:[id number] Oral 100 100 150 Output: Urine 1500 1215 195 Stool 250 650 200 Other: Voiding Method Urinal Indwelling Catheter # Voids 1 # Bowel Movements 1 - Exam Physical Exam: Revealed a 63-year-old white male, chronically ill looking, frail, on few liters nasal cannula, in no distress. Head: Atraumatic, normocephalic. HEENT:[Neck is supple.] [No neck masses.] [No thyromegaly.] [No JVD.]PERRLA, EOMI, no icterus. Moist mucous membranes. Chest: [symmetrical chest expansion, crackles at the bases especially at the right base, no rhonchi and no wheezes. No chest wall tenderness.] Cardiac Exam: [Normal S1 and S2, no S3 gallop, no murmur.] Abdomen: [Soft, nontender, no megaly, no rebound, no guarding, normal bowel sounds.] Extremities: [No clubbing, no edema, no cyanosis.]diminished pulses bilaterally.chronic dusky appearance of left second toe on the left foot is noted. Neurological Exam: [No focal neurologic deficit.]alert and oriented 3. Skin: No rashes. Lymphatics: No lymphadenopathy. - Labs CBC & Chem 7: 11/18/18 04:00 11/18/18 04:00 Labs: Abnormal Lab Results - Last 24 Hours (Table) 11/17/18 11/17/18 11/18/18 Range/Units 12:12 18:43 04:00 RBC 2.89 L (4.30-5.90) m/uL Hgb 10.4 L (13.0-17.5) gm/dL Hct 30.1 L (39.0-53.0) % MCV 104.1 H (80.0-100.0) fL MCH 35.8 H (25.0-35.0) pg Sodium (137-145) mmol/L Potassium 2.8 L (3.5-5.1) mmol/L Chloride (98-107) mmol/L Carbon Dioxide (22-30) mmol/L Glucose (74-99) mg/dL POC Glucose (mg/dL) 125 H (75-99) mg/dL Magnesium 2.5 H (1.6-2.3) mg/dL 11/18/18 Range/Units 04:00 RBC (4.30-5.90) m/uL Hgb (13.0-17.5) gm/dL Hct (39.0-53.0) % MCV (80.0-100.0) fL MCH (25.0-35.0) pg Sodium 132 L (137-145) mmol/L Potassium 3.0 L (3.5-5.1) mmol/L Chloride 91 L (98-107) mmol/L Carbon Dioxide 34 H (22-30) mmol/L Glucose 131 H (74-99) mg/dL POC Glucose (mg/dL) (75-99) mg/dL Magnesium (1.6-2.3) mg/dL Microbiology - Last 24 Hours (Table) 11/16/18 14:30 Gram Stain - Preliminary Pleural Fluid Body Fluid Culture - Preliminary Assessment and Plan Assessment: 1 acute hypoxic respiratory failure with bilateral pleural effusions and asymmetric right lung consolidation, multifactorial, related to acute exacerbation of diastoliccongestive heart failure with diastolic dysfunction and right lung pneumonia. sputum cultures have been nondiagnostic. On 11/17/2018 patient continues to have complaints of shortness of breath, he remains afebrile, he is been given intermittent doses of IV diuretics, and he did have a right-sided thoracentesis on 11/16/2018 would removal of 700 mL of pleural fluid which was sent for cultures, cytology and analysis. Pleural fluid analysis shows transudate of fluid consistent with congestive heart failure. patient developed a iatrogenic right-sided pneumothorax, small, apical, did not require any intervention. 2 bilateral pleural effusions, likely related to acute exacerbation of diastolic congestive heart failure, status post right-sided thoracentesis would removal of 700 mL of pleural fluid on 11/16/2018, pleural fluid analysis showing transudate of fluid, this speaks in favor of being a cardiac related pleural effusion. 3 iatrogenic right-sided pneumothorax secondary to thoracentesis, resolving, did not require any intervention. 4 hypotension, related to a combination of adrenal insufficiency, diuretic therapy, and narcotics 5 hemoptysis secondary to above, and has further by anticoagulation, currently inactive in stable 6 coronary artery disease 7 COPD 8 peripheral vascular disease with chronic pain lower extremities in addition to some cyanosis and Raynaud's phenomena 9 paroxysmal atrial fibrillation current rhythm is sinus 10 acute kidney injury recovered 11 troponin leak 13 depression with suicidal intention/ideations currently on close observation with a bedside sitter and psychiatric evaluation was also requested Recommendation: Continue norepinephrine, continue Cardizem, continue diuretics, continue to monitor closely in the ICU, continue antibiotics, continue GI and DVT prophylaxis, continue nutritional support, encourage oral feedings, continue stress doses of hydrocortisone, patient will be kept in the ICU for the next 24 hours. We'll continue to follow. Prognosis overall remains definitely guarded. Time with Patient: Less than 30
[2018-11-18] MEDS: SPIRONOLACTONE 25 MG TAB PO SCH (11:58)
--- NOTE | 2018-11-18 12:44 | PN ---
PROGRESS NOTE This patient is known to us from his current admission. This patient was transferred to the intensive care unit yesterday because of the running low blood pressure and the patient has evidence of congestive cardiac failure. The patient was hypokalemic yesterday and then he had intermittent episodes of the atrial fibrillation. The patient was started on Cardizem drip and subsequently he converted to the normal sinus rhythm. Patient currently at present on a small dose of norepinephrine. He is in normal sinus rhythm and he is comfortable. Skin is dry and warm. The patient's blood pressure is 93/68 mmHg, heart rate is 80 per minute. First and second heart sounds are heard. Lungs examination reveals bilateral scattered rhonchi. Patient's potassium is 3.0. FINAL IMPRESSION: 1. This patient is being treated for acute hypoxic respiratory failure and congestive heart failure with diuretics. 2. Intermittent episodes of atrial fibrillation, could have been induced partly by the hypokalemia. At present, patient is in normal sinus rhythm. We will discontinue the Cardizem drip. Patient's recent echocardiogram revealed normal left ventricular systolic function. I will add Aldactone 25 mg daily, which will hopefully help to correct the hypokalemia. After the patient is off the Levophed, we will start him on a small dose of beta lula. MMODL / IJN: [id number] /
--- NOTE | 2018-11-18 14:06 | P.PN ---
Subjective Progress Note Date: 11/18/18 Principal diagnosis: A. fib with RVR Patient was seen and examined. No acute events overnight. Patient reports considerable improvement in his left lower extremity to pain since admission. He denies any chest pain, shortness of breath or palpitations. No nausea or vomiting. No fever or chills. His spirits is much better today than what it was on admission. He denies any suicidal ideation. Objective - Vital Signs Vital signs: Vital Signs Temp 96.3 F L 11/18/18 12:00 Pulse 87 11/18/18 13:00 Resp 15 11/18/18 13:00 BP 96/66 11/18/18 13:00 Pulse Ox 96 11/18/18 13:00 Intake & Output 11/17/18 11/18/18 11/18/18 18:59 06:59 18:59 Intake Total 1020 479.250 773.416 Output Total 1750 1865 655 Balance -730 -1385.750 118.416 Weight 59.5 kg 59.5 kg Intake: IV 920 340 240 Magnesium Sulfate-D5w Pmx 300 1 gm In Dextrose/Water 1 100ml.bag @ 100 mls/hr IVPB Q1H [facility] Rx#: [id number] Normal Saline 120 240 140 Piperacillin-Tazobactam 3 100 100 .375 gm In Sodium Chloride 0.9% 100 ml @ 25 mls/hr IVPB Q8HR [facility] Rx# :[id number] Potassium Chloride 10 meq 400 100 In Water For Injection 1 100ml.bag @ 100 mls/hr IVPB Q1H [facility] Rx#: [id number] Intake, IV Titration 39.250 183.416 Amount Diltiazem 125 mg In 44.667 Sodium Chloride 0.9% 100 ml @ 5 MG/HR 5 mls/hr IV .Q24H [facility] Rx#:[id number] Norepinephrine 4 mg In 39.250 138.749 Sodium Chloride 0.9% 250 ml @ 0.05 MCG/KG/MIN 11. 906 mls/hr IV .[id number] [facility] Rx#:[id number] Oral 100 100 350 Output: Urine 1500 1215 455 Stool 250 650 200 Other: Voiding Method Urinal Indwelling Catheter # Voids 1 # Bowel Movements 1 - Exam General: [non toxic], [mild distress], [appears at stated age], [cachectic] Derm: [warm], [dry] Head: [atraumatic], [normocephalic], [symmetric] Eyes: [EOMI], [no lid lag], [anicteric sclera] Mouth: [no lip lesion], [mucus membranes moist] Cardiovascular: [S1S2 reg], [irregularly irregular], [DP nonpalpable ellen aterally] Lungs: [Decreased breath sounds bilateral], [crackles at the bases] , [no accessory muscle use] Ext: [no gross muscle atrophy], [no edema], [no contractures], [purple discoloration of the second and third toe, cold extremities] Neuro: [no focal neuro deficits] Psych: [Alert], [oriented], [appropriate affect] - Labs CBC & Chem 7: 11/18/18 04:00 11/18/18 04:00 Labs: Abnormal Lab Results - Last 24 Hours (Table) 11/17/18 11/18/18 11/18/18 Range/Units 18:43 04:00 04:00 RBC 2.89 L (4.30-5.90) m/uL Hgb 10.4 L (13.0-17.5) gm/dL Hct 30.1 L (39.0-53.0) % MCV 104.1 H (80.0-100.0) fL MCH 35.8 H (25.0-35.0) pg Sodium 132 L (137-145) mmol/L Potassium 2.8 L 3.0 L (3.5-5.1) mmol/L Chloride 91 L (98-107) mmol/L Carbon Dioxide 34 H (22-30) mmol/L Glucose 131 H (74-99) mg/dL Magnesium 2.5 H (1.6-2.3) mg/dL Microbiology - Last 24 Hours (Table) 11/16/18 14:30 Gram Stain - Preliminary Pleural Fluid Body Fluid Culture - Preliminary Assessment and Plan Assessment: Assessment and Plan Atrial fibrillation with RVR Hypokalemia Pneumonia Hypotension Suicidal ideation Troponin elevation with history of stent placement, rule out acute coronary syndrome Left toe discoloration, history of Raynaud's, rule out thromboembolic given history of A. fib Hyponatremia likely related to dehydration Alcohol abuse with high risk of withdrawal Gastritis Abnormal chest x-ray Protein calorie malnutrition COPD Resolved: Lactic acidosis, acute kidney injury Overnight. Currently sinus. DC diltiazem drip. Aldactone ordered by cardiology. Plans for beta lula when off Levophed. Already on anticoagulation with Eliquis. Replaced via protocol. Completed course of Zithromax and Zosyn. Plans: Follow pleural fluid culture. Follow pulmonology recommendations. Relative adrenal insufficiency with AM cortisol of 6. Plans: Continue Midodrine. Continue Cortef 100 mg IV every 6 hours. Continue Levophed to maintain MAP greater than 65. Mostly related to pain. Evaluated by psychiatry, sitter discontinued. Acute coronary syndrome has been ruled out. Likely related to acute renal failure. Cardiology evaluated, but no further workup. Evaluated by vascular surgery. No further workup recommended. Sodium 132. Has improved from admission. CIWA protocol. Ativan as needed for withdrawal symptoms. Multivitamin and thiamine. Zofran as needed for nausea or vomiting. Continue Protonix IV daily. We'll need adequate follow up in the outpatient setting to rule out lung cancer given history of smoking. BMI 17.8. Follow Dietitian recommendations. DuoNeb as needed for shortness of breath or wheezing. [Patient found to be in A. fib with RVR today. Currently on IV pressors, will need to wean. Potassium being replaced. Likely DC in 1-2 days. ]
[2018-11-18] MEDS: TAMSULOSIN 0.4 MG CAP.ER.24H PO SCH (17:19)
--- NOTE | 2018-11-18 20:49 | PN ---
PROGRESS NOTE Patient is seen for followup for hyponatremia and acute kidney injury. His renal function has improved significantly. Patient was hypotensive yesterday and was transferred to the ICU. He is maintained on a small dose of Levophed. Patient also has a small pneumothorax which seems to be stable. He was seen this afternoon, currently comfortable, not in any acute distress. Alert and oriented x3. Blood pressure was 86/58, another blood pressure 102/73, heart rate 90 per minute. Patient is afebrile. EXAMINATION OF THE HEART: S1 and S2. EXAMINATION OF LUNGS: Decreased breath sounds at the bases. ABDOMEN: Soft, non-tender. Examination of lower extremities shows no evidence of edema. Labs show sodium 132, potassium 3.3, chloride 91, BUN 20, serum creatinine 1.19, hemoglobin 10.4 g/dL. ProBNP 74,800. ASSESSMENT: 1. Hyponatremia, currently resolved; serum sodium staying 132 to 134 mEq/L. Patient was on Lasix. On the floor it was held for some time. He is back on diuretics. He is doing fairly well. Chest x-ray from this morning shows improvement in aeration. His renal function is stable. Creatinine is actually better. We may continue with the Lasix for now. 2. Hypokalemia secondary to diuresis. Continue to replace. 3. Metabolic acidosis, now resolved. 4. Paroxysmal atrial fibrillation. 5. Right pneumothorax. PLAN: Since renal function is stable and respiratory status has also improved, we can continue with the diuretics. Repeat chest x-ray in morning. Replace potassium. MMODL / IJN: [id number] /
[2018-11-18] MEDS: ATORVASTATIN 40 MG TAB PO SCH (22:10)
[2018-11-18] MEDS: MELATONIN 3 MG TABLET PO SCH (22:10)
[2018-11-19 05:31] LABS: Anisocytosis Slight; Basophils # (A) 0.1 k/uL (0-0.2); Basophils % (A) 1 %; Eosinophils % (A) 1 %; HCT 30.5 % (39.0-53.0); HGB 9.8 gm/dL (13.0-17.5); Lymphocytes # (A) 0.4 k/uL (1.0-4.8); Lymphocytes % (A) 5 %; MCH 34.1 pg (25.0-35.0); MCHC 32.2 g/dL (31.0-37.0); MCV 105.9 fL (80.0-100.0); Macrocytosis Moderate; Mean Platelet Volume 8.1; Monocytes # (A) 0.3 k/uL (0-1.0); Monocytes % (A) 4 %; Neutrophils # (A) 7.6 k/uL (1.3-7.7); Neutrophils % (A) 90 %; Platelet Count 408 k/uL (150-450); RBC 2.88 m/uL (4.30-5.90); RDW 16.9 % (11.5-15.5); WBC 8.5 k/uL (3.8-10.6)
[2018-11-19 05:47] LABS: Calcium 8.6 mg/dL (8.4-10.2); Potassium 3.9 mmol/L (3.5-5.1)
[2018-11-19] MEDS: HYDROCORTISONE SUCCINATE 100 MG/2 ML VIAL IV SCH ×3 (06:37→23:39)
[2018-11-19] MEDS: DICYCLOMINE 10 MG CAP PO SCH ×3 (08:57→21:07)
[2018-11-19] MEDS: MIDODRINE 5 MG TAB PO SCH ×3 (08:57→17:06)
[2018-11-19] MEDS: MULTIVITAMINS, THERA 1 EACH TAB PO SCH (08:58)
[2018-11-19] MEDS: POTASSIUM CHLORIDE ER 20 MEQ TAB.ER PO SCH ×4 (08:58→21:07)
[2018-11-19] MEDS: PANTOPRAZOLE 40 MG TABLET PO SCH (08:58)
[2018-11-19] MEDS: NICOTINE 21MG/24HR PATCH TRANSDERM SCH (08:58)
[2018-11-19] MEDS: SODIUM BICARBONATE TAB 650 MG TAB PO SCH ×2 (08:58→21:07)
[2018-11-19] MEDS: CILOSTAZOL 100 MG TAB PO SCH ×2 (08:58→21:07)
[2018-11-19] MEDS: DULoxetine HCL 60 MG CAPSULE.DR PO SCH (08:58)
[2018-11-19] MEDS: GABAPENTIN 300 MG CAP PO SCH ×3 (08:58→21:07)
[2018-11-19] MEDS: THIAMINE 100 MG TAB PO SCH ×2 (08:58→17:06)
[2018-11-19] MEDS: SPIRONOLACTONE 25 MG TAB PO SCH (08:58)
[2018-11-19] MEDS: oxyCODONE-APAP 10-325MG 1 EACH TAB PO PRN ×2 (09:08→17:06)
--- NOTE | 2018-11-19 09:20 | XR ---
EXAMINATION TYPE: XR chest 1V DATE OF EXAM: 11/19/2018 COMPARISON: Prior chest x-ray 11/18/2018 HISTORY: Pulmonary edema TECHNIQUE: Single frontal view of the chest is obtained. FINDINGS: Bibasilar increased density persists, the hemidiaphragms are obscured. Heart size is stabl e. Reduction in the size of patient's small apical pneumothorax. Aorta is dense. IMPRESSION: Findings are similar to prior exam. Correlate for congestive heart failure with pleural effusions, pneumonia, minimal residual right apical pneumothorax
--- NOTE | 2018-11-19 09:32 | US ---
EXAMINATION TYPE: US chest DATE OF EXAM: 11/19/2018 COMPARISON: CXR 11/19/2018, US dated 11/16/2018 CLINICAL HISTORY: Markings for thoracentesis by pulmonary staff. Pleural effusion TECHNIQUE: Targeted ultrasound of the posterior lower bilateral hemithoraces EXAM MEASUREMENTS: Right Pleural Effusion pocket size: 9.3 cm Right skin surface to fluid distance: 2.0 cm Left Pleural Effusion pocket size: 9.4 cm Left skin surface to fluid distance: 1.5 cm Right side marked for possible thoracentesis outside the dept. Left side marked for possible thoracentesis outside the dept. Pulmonologists are able to review the images in the patient?s EMR. IMPRESSIONS: Bilateral pleural effusions
[2018-11-19] MEDS: FUROSEMIDE 10 MG/ML 4 ML VIAL IV SCH ×2 (10:19→23:39)
--- NOTE | 2018-11-19 10:50 | PN ---
PROGRESS NOTE This patient was seen yesterday because of the paroxysmal episodes of atrial fibrillation. Patient currently is being treated for congestive heart failure, COPD. The patient runs low blood pressure. He is on a small dose of Levophed. Patient's heart rate is in the 100s. The patient remains in sinus tachycardia. Blood pressure is 111/77 mmHg. First and second heart sounds are normal. Lungs reveal bilateral diminished air entry. Patient's total urine output yesterday was 2.4 L. Patient's potassium is 3.9. FINAL IMPRESSION: This patient had an episode of paroxysmal atrial fibrillation yesterday, could be secondary to hypokalemia. Now he has been maintaining the normal sinus rhythm. Patient still is on small dose of norepinephrine drip, so we will hold of any beta lula at present. If no thoracentesis is planned, patient may need to be anticoagulated. MMODL / IJN: [id number] /
--- NOTE | 2018-11-19 12:03 | P.PN ---
Subjective Progress Note Date: 11/19/18 Principal diagnosis: acute hypoxic respiratory failure, related to pulmonary edema and the right lung pneumonia A 63-year-old male patient quite debilitated with multiple medical problems and comorbidities who initially came into the hospital because of foot pain. Note that the patient has multiple other medical issues and we will consult on the patient knowing that he has developed a worsening shortness of breath with bilateral pleural effusion and possible right lung pneumonia. This patient has history of COPD, coronary artery disease, hypertension, atrial fibrillation, previous complicated diverticulitis requiring and ostomy creation, history of peripheral vascular disease and the patient presented with pain in the lower extremity and there was a concern of a acute ischemic leg. The patient was having pain in his left foot and the patient had been done on for the past several months. He had also discolored toes which has been a chronic problem. The patient underwent further CT angiogram that showed atherosclerotic calcification throughout and on the right anterior tibial artery was occluded in the upper leg and there was two-vessel runoff into the foot through the peroneal artery and on the left there was a 2 vessel runoff into the foot through the pe roneal artery also. The patient was started on Pletal and no further vascular intervention was planned for this patient. During the course of his treatment, the patient came in with a creatinine of 1.8. The patient was given IV fluids. Creatinine gradually improved with IV fluids. His troponins were slightly elevated at time of admission and gradually down trended. His acute kidney injury also improved. Echo of the heart showed mild LVH with an ejection fraction of 55-60% otherwise unremarkable. Cardiology evaluated the patient and no acute cardiac intervention is being planned. Nephrology also evaluated the patient and midodrine was added to optimize the blood pressure. He was com plaining of chronic pain for which pain management was involved. He was complaining of increased depression and threatening of suicide and for that reason a psychiatric evaluation was question and the patient was given a 24-hour sitter at the bedside. Subsequently the patient developed some hemoptysis. He was on IV heparin and the level was supratherapeutic. A CAT scan of the chest was done and showed bilateral pleural effusion and addition to diffuse infiltration of the right lung compared to the left consistent with either asymmetric pulmonary edema or right lung pneumonia. The patient was started on a combination of Zithromax and Zosyn. On the morning of 11/12/2018 the patient was having some limited hemoptysis still in small amounts. No nausea. No vomiting. No GI bleeding. No other complaints otherwise for now. He is not receiving any form of diuretics at this point in time. The patient is seen today 11/13/2018 in follow-up on the selective care unit. He is currently sitting up in bed. Awake and alert in no acute distress. HEENT O2 saturations in the low 90s on 2 L/m per nasal cannula. He's been afebrile. Sputum culture pending. White count 8.1. Hemoglobin 9.1. Potassium 2.8. Creatinine 1.36. He is maintained on DuoNeb inhalations, Zosyn and azithromyci n. On 11/14/2018 the patient is resting comfortably in bed. Nevertheless she is still cough and not bloody mucus. A repeat chest x-ray was done today showed increased confluence and multifocal opacities most compatible with multilobar pneumonia. He remains on a combination of Zosyn and Zithromax. I do suspect a component of fluid/CHF/interstitial edema as the patient has also bilateral pleural effusion. He'll be started on Lasix today. Despite this worsening in his chest x-ray findings, his white blood count remains nonelevated at 5.3. Hemoglobin is at 8.3. His renal function stable with a creatinine of 1.2. Sputum sample that was sent for Gram stain and culture and the results are still pending for now. He continues to have a depressed mood and there is a 24 hour sitter at the bedside at all times. On 11/15/2018 patient seen in follow-up on selective care unit. He is awake and alert, still has a product safety test engineer at the bedside apparently the patient is impulsive at times, and one at to leave AMA however she is unable to ambulate. Denies any dyspnea, he is only complaint is some left foot pain. No cough or congestion. NO chest wall discomfort. Room air pulse ox is 98%, his been afebrile, blood urine and sputum cultures are negative. These labs have been reviewed, showing white blood cell count of 4.5, hemoglobin of 8.6, serum sodium is 1:30, the rest of electrolytes and renal profile were within normal limits. Patient has been treated with a combination of antibiotics in the form of Zithromax, Zosyn and Lasix, Lasix has been discontinued. Yesterday's chest x- ray showed increasing confluence of the multifocal opacity compatible with multifocal pneumonia and small parapneumonic effusions. Clinically patient remains stable. Patient is on IV fluid restriction for hyponatremia, today sodium is 1:30, Lasix is on hold per nephrology, and IV hydrocortisone was added for hypertension, midodrine has been added On 11/16/2018 patient seen in follow-up on selective care unit. Yesterday he received an extra dose of IV Lasix, and today he is in -1095 ML fluid balance, lung sounds reveal extremely diminished breath sounds over bilateral bases, right greater than left. Scattered crackles, no significant wheezes, he states he still having some persistent hemoptysis. Feels short of breath, although does not appear to be in any acute distress, currently on 2-3 L of oxygen with a pulse ox of 94%, he is tachycardic, generally weak. Complains of intermittent pain in his left foot, and abdomen, no nausea or vomiting. Follow-up chest x- ray was obtained showing increased interstitium, bilateral pleural effusions versus pneumonia. Ultrasound of the chest has been ordered and pending at this time. On today's labs there is slight worsening of patient's renal function, with creatinine up to 1.3 from yesterday's labs of 1.16. Serum sodium is 133, p otassium is 3.5, chloride is 96. No complaints of chest pain, his pro- calcitonin is actually down trending, last one on 11/13/2018 was down to 0.55 from 0.78. White count is 11.3, hemoglobin is 10.1. Urine, blood and sputum cultures are negative thus far, she has been afebrile. Remains on a combination of Zithromax and Zosyn. On 11/17/2018 patient is seen in follow-up on selective care unit, still complaining of pain, but states that his shortness of breath seems to have improved since the thoracentesis yesterday would removal of 700 mL of pleural fluid. Pleural fluid analysis shows transudative fluid, and pleural fluid cultures are pending. Patient had a postprocedural pneumothorax on the right, clinically remains stable, follow-up chest x-ray today was obtained showing stable right-sided apical pneumothorax. Findings similar to prior exam, pleural effusions and basilar edema. Patient was given a dose of IV Lasix yesterday and he is maintaining negative fluid balance, he is in -1825 mL fluid balance over the last 24 hours. However patient did become hypotensive with a blood pressures of 70/40, and his IV diuretics were held this morning. The decision was made to transfer the patient to the intensive care unit for close hemodynamic monitoring, hypotension, and start the patient on levo fed for blood pressure support, patient is on maximum dose of midodrine, his hydrocortisone dose is being tapered. We'll continue with IV diuretics, and IV antibiotics. Patient was reevaluated today on 11/18/2018, he was transferred yesterday from the cardiac floor to the ICU mostly because he was running low blood pressure. I wanted to continue the Lasix, hence I recommended moving the patient to the ICU, started the patient on norepinephrine and continue the Lasix at 40 mg IV push every 12 hours. Patient is feeling a bit better today, breathing easier, chest x-ray is showing improved aeration in the right midlung and right lower lobe area, however continues to have evidence of interstitial edema and possibly some air space disease involving the right lower lobe. His urine output is better with the Lasix and with the norepinephrine on board. Patient is presently on norepinephrine at 0.08 mcg/kg/m. Blood pressures improved however the patient went on to develop recurrent episodes of atrial fibrillation and he was placed on Cardizem drip. He is presently on 5 mg per hour. Remains on antibiotics, remains on diuretics, and he remains on stress doses of hydroc ortisone. I believe the patient is showing definite improvement in the last 24 hours.his renal functioning is even improved creatinine is down to 1.19 from 1.34 . I have no plans of holding diuretics at this point.the pleural effusion was transudate of in nature. The right-sided iatrogenic pneumothorax is almost resolved, barely seen in the right apex. Clinically again the patient is feeling a bit better he continues to have aches and pains. But his pulmonary status is improved. Reevaluated today on 11/19/2018, patient remains in the intensive care unit, remains on tiny dose of norepinephrine to maintain adequate blood pressure, remains on diuretics, chest x-ray continues to show evidence of pulmonary edema, bilateral pleural effusions, and possibly right lower lobe pneumonia. Patient is clinically better, however his chest x-ray is still concerning to me. Repeat ultrasound of the chest today showed bilateral pleural effusions again, may consider left-sided thoracentesis on this patient if he continues to not show significant improvement with diuretics. Remains on Lasix IV push every 12 hours. Remains on multiple cardiac meds, however he is off Cardizem drip. He remains on stress doses of hydrocortisone. Renal functioning is improving. Hence I have no plans to hold his diuretics at this point. His right-sided pneumothorax has completely resolved and this was iatrogenic related to right- sided thoracentesis few days ago. Continues to have aches and pains. Overall pulmonary status is improved but not resolved. Objective - Vital Signs Vital signs: Vital Signs Temp 97 F L 11/19/18 08:00 Pulse 111 H 11/19/18 11:30 Resp 13 11/19/18 11:30 BP 110/76 11/19/18 11:30 Pulse Ox 99 11/19/18 11:30 Intake & Output 11/18/18 11/19/18 11/19/18 18:59 06:59 18:59 Intake Total 1249.417 375.736 572 Output Total 1145 1280 190 Balance 104.417 -904.264 382 Weight 59.5 kg 58.5 kg Intake: IV 340 240 100 Normal Saline 240 240 100 Piperacillin-Tazobactam 3 100 .375 gm In Sodium Chloride 0.9% 100 ml @ 25 mls/hr IVPB Q8HR [facility] Rx# :[id number] Intake, IV Titration 359.417 135.736 Amount Diltiazem 125 mg In 44.667 Sodium Chloride 0.9% 100 ml @ 5 MG/HR 5 mls/hr IV .Q24H [facility] Rx#:[id number] Norepinephrine 4 mg In 214.750 135.736 Sodium Chloride 0.9% 250 ml @ 0.05 MCG/KG/MIN 11. 906 mls/hr IV .[id number] [facility] Rx#:[id number] Piperacillin-Tazobactam 3 100 .375 gm In Sodium Chloride 0.9% 100 ml @ 25 mls/hr IVPB Q8HR [facility] Rx# :[id number] Oral 550 472 Output: Urine 945 1280 190 Stool 200 Other: Voiding Method Indwelling Catheter Indwelling Catheter - Exam Physical Exam: Revealed a 63-year-old white male, chronically ill looking, frail, on few liters nasal cannula, in no distress. Head: Atraumatic, normocephalic. HEENT:[Neck is supple.] [No neck masses.] [No thyromegaly.] [No JVD.]PERRLA, EOMI, no icterus. Moist mucous membranes. Chest: [symmetrical chest expansion, crackles at the bases especially at the right base, no rhonchi and no wheezes. No chest wall tenderness.] Dullness noted at the left base. Cardiac Exam: [Normal S1 and S2, no S3 gallop, no murmur.] Abdomen: [Soft, nontender, no megaly, no rebound, no guarding, normal bowel sounds.] Extremities: [No clubbing, no edema, no cyanosis.]diminished pulses bilaterally.chronic dusky appearance of left second toe on the left foot is noted. Neurological Exam: [No focal neurologic deficit.]alert and oriented 3. Skin: No rashes. Lymphatics: No lymphadenopathy. - Labs CBC & Chem 7: 11/19/18 04:39 11/19/18 04:39 Labs: Abnormal Lab Results - Last 24 Hours (Table) 11/18/18 11/19/18 11/19/18 Range/Units 14:14 04:39 04:39 RBC 2.88 L (4.30-5.90) m/uL Hgb 9.8 L (13.0-17.5) gm/dL Hct 30.5 L (39.0-53.0) % MCV 105.9 H (80.0-100.0) fL RDW 16.9 H (11.5-15.5) % Lymphocytes # 0.4 L (1.0-4.8) k/uL Sodium 135 L (137-145) mmol/L Potassium 3.3 L (3.5-5.1) mmol/L Chloride 93 L (98-107) mmol/L Carbon Dioxide 35 H (22-30) mmol/L Glucose 147 H (74-99) mg/dL Microbiology - Last 24 Hours (Table) 11/16/18 14:30 Gram Stain - Preliminary Pleural Fluid Body Fluid Culture - Preliminary 11/16/18 14:30 Anaerobic Culture - Preliminary Pleural Fluid Assessment and Plan Assessment: 1 acute hypoxic respiratory failure with bilateral pleural effusions and asymmetric right lung consolidation, multifactorial, related to acute exacerbation of diastoliccongestive heart failure with diastolic dysfunction and right lung pneumonia. sputum cultures have been nondiagnostic. 2 bilateral pleural effusions, likely related to acute exacerbation of diastolic congestive heart failure, status post right-sided thoracentesis would removal of 700 mL of pleural fluid on 11/16/2018, pleural fluid analysis showing transudate of fluid, this speaks in favor of being a cardiac related pleural effusion. 3 iatrogenic right-sided pneumothorax secondary to thoracentesis, resolved without any intervention 4 hypotension, related to a combination of adrenal insufficiency, diuretic therapy, and narcotics 5 hemoptysis secondary to above, and has further by anticoagulation, currently inactive in stable 6 coronary artery disease 7 COPD 8 peripheral vascular disease with chronic pain lower extremities in addition to some cyanosis and Raynaud's phenomena 9 paroxysmal atrial fibrillation current rhythm is sinus 10 acute kidney injury recovered 11 troponin leak 13 depression with suicidal intention/ideations currently on close observation with a bedside sitter and psychiatric evaluation was also requested Recommendation: Continue norepinephrine, continue antibiotics, diuretics, bronchodilators, Pletal, Cymbalta, Neurontin, hydrocortisone and I will cut down the dose to 50 mg IV push every 8 hours. Continue lorazepam as needed continue midodrine for low blood pressure continue bicarb, continue Flomax, continue Protonix, continue pain control. And continue thiamine. Patient will need to be remain in the ICU since his on norepinephrine, working on titrating the norepinephrine down and possibly discontinue in the meantime we'll continue diuretics. And I may consider left-sided thoracentesis on the patient depending on his response to diuresis. Discussed his condition with nephrology on the case. Time with Patient: Less than 30
--- NOTE | 2018-11-19 15:03 | P.PN ---
Subjective Progress Note Date: 11/19/18 Principal diagnosis: Hypertension, fluid overload Patient was seen and examined. No acute events overnight. Patient reports no real changes in his overall condition. He continues to complain of left lower extremity pain, 10 out of 10 in severity. States that oxycodone only works for 3-4 hours at a time. Pain overall has not changed since admission per patient. He denies any chest pain or palpitations. Does complain of some shortness of breath, states that pulmonology might do thoracentesis tomorrow. No fever or chills. No nausea or vomiting Objective - Vital Signs Vital signs: Vital Signs Temp 97.9 F 11/19/18 12:01 Pulse 114 H 11/19/18 14:00 Resp 23 11/19/18 14:00 BP 105/71 11/19/18 14:00 Pulse Ox 96 11/19/18 14:00 Intake & Output 11/18/18 11/19/18 11/19/18 18:59 06:59 18:59 Intake Total 1249.417 375.736 938.675 Output Total 1145 1280 440 Balance 104.417 -904.264 498.675 Weight 59.5 kg 58.5 kg Intake: IV 340 240 160 Normal Saline 240 240 160 Piperacillin-Tazobactam 3 100 .375 gm In Sodium Chloride 0.9% 100 ml @ 25 mls/hr IVPB Q8HR [facility] Rx# :[id number] Intake, IV Titration 359.417 135.736 66.675 Amount Diltiazem 125 mg In 44.667 Sodium Chloride 0.9% 100 ml @ 5 MG/HR 5 mls/hr IV .Q24H [facility] Rx#:[id number] Norepinephrine 4 mg In 214.750 135.736 66.675 Sodium Chloride 0.9% 250 ml @ 0.05 MCG/KG/MIN 11. 906 mls/hr IV .[id number] [facility] Rx#:[id number] Piperacillin-Tazobactam 3 100 .375 gm In Sodium Chloride 0.9% 100 ml @ 25 mls/hr IVPB Q8HR [facility] Rx# :[id number] Oral 550 712 Output: Urine 945 1280 440 Stool 200 Other: Voiding Method Indwelling Catheter Indwelling Catheter - Exam General: [non toxic], [mild distress], [appears at stated age], [cachectic] Derm: [warm], [dry] Head: [atraumatic], [normocephalic], [symmetric] Eyes: [EOMI], [no lid lag], [anicteric sclera] Mouth: [no lip lesion], [mucus membranes moist] Cardiovascular: [S1S2 reg], [irregularly irregular], [DP nonpalpable bilaterally ] Lungs: [Decreased breath sounds bilateral], [crackles at the bases] , [no accessory muscle use] Ext: [no gross muscle atrophy], [no edema], [no contractures], [purple discoloration of the second and third toe, cold extremities] Neuro: [no focal neuro deficits] Psych: [Alert], [oriented], [appropriate affect] - Labs CBC & Chem 7: 11/19/18 04:39 11/19/18 04:39 Labs: Abnormal Lab Results - Last 24 Hours (Table) 11/18/18 11/19/18 11/19/18 Range/Units 14:14 04:39 04:39 RBC 2.88 L (4.30-5.90) m/uL Hgb 9.8 L (13.0-17.5) gm/dL Hct 30.5 L (39.0-53.0) % MCV 105.9 H (80.0-100.0) fL RDW 16.9 H (11.5-15.5) % Lymphocytes # 0.4 L (1.0-4.8) k/uL Sodium 135 L (137-145) mmol/L Potassium 3.3 L (3.5-5.1) mmol/L Chloride 93 L (98-107) mmol/L Carbon Dioxide 35 H (22-30) mmol/L Glucose 147 H (74-99) mg/dL Microbiology - Last 24 Hours (Table) 11/16/18 14:30 Gram Stain - Preliminary Pleural Fluid Body Fluid Culture - Preliminary 11/16/18 14:30 Anaerobic Culture - Preliminary Pleural Fluid Assessment and Plan Assessment: Assessment and Plan Hypotension Bilateral pleural effusions Atrial fibrillation with RVR Pneumonia Suicidal ideation Troponin elevation with history of stent placement, rule out acute coronary syndrome Left toe discoloration, history of Raynaud's, rule out thromboembolic given history of A. fib Hyponatremia likely related to dehydration Alcohol abuse with high risk of withdrawal Gastritis Abnormal chest x-ray Protein calorie malnutrition COPD Resolved: Lactic acidosis, acute kidney injury, hypokalemia Relative adrenal insufficiency with AM cortisol of 6. Plans: Continue Midodrine. Continue Cortef but decreased to 50 mg IV every 8 hours. Continue Levophed to maintain MAP greater than 65. As seen on chest Xray. Chest ultrasound obtained. Plans: Diuresis with Lasix 40 mg IV twice a day. Possible thoracentesis the pulmonology? Follow pulmonology recommendations. Improved. Currently sinus. Plans: Diltiazem drip discontinued as patient is back in sinus. Plans for beta lula when off Levophed. Can resume Eliquis if thoracocentesis is not performed. Follow cardiology recommendations. Completed course of Zithromax and Zosyn. Cultures currently negative. Plans: Follow pleural fluid culture. Follow pulmonology recommendations. Mostly related to pain. Evaluated by psychiatry, sitter discontinued. Acute coronary syndrome has been ruled out. Likely related to acute renal failure. Cardiology evaluated, but no further workup. Evaluated by vascular surgery. No further workup recommended. Plans: Pain control with gabapentin, Cymbalta, oxycodone and morphine as needed. Will need to go to rehab on discharge. Sodium 135. Has improved from admission. Plans: Daily BMP. Plans: CIWA protocol. Ativan as needed for withdrawal symptoms. Multivitamin and thiamine. Plans: Zofran as needed for nausea or vomiting. Continue Protonix IV daily. Plans: We'll need adequate follow up in the outpatient setting to rule out lung cancer given history of smoking. BMI 17.5. Plans: Follow Dietitian recommendations. Plans: DuoNeb as needed for shortness of breath or wheezing. [Currently on IV pressors, will need to wean but also getting diuresed, pulmonology and cardiology on board. Possible thoracentesis? Likely DC in 1-2 days. ]
[2018-11-19] MEDS: TAMSULOSIN 0.4 MG CAP.ER.24H PO SCH (17:06)
--- NOTE | 2018-11-19 17:09 | PN ---
PROGRESS NOTE Patient is seen for followup for hyponatremia and acute kidney injury. His renal function has improved. Patient is currently in the ICU for hypotension. He was also in respiratory distress and respiratory failure. He is currently being diuresed and is feeling much better. Patient also has pleural effusion, for which he had a thoracenteses on the right side. There is consideration for possible right thoracentesis as well. On examination this morning, blood pressure was 110/76, heart rate 111 per minute. Patient is afebrile. EXAMINATION OF THE HEART: S1 and S2. EXAMINATION OF LUNGS: Decreased breath sounds at the bases. ABDOMEN: Soft, non-tender. Examination of lower extremities shows no significant edema. 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 Labs show sodium 135, potassium 3.9, BUN 17, serum creatinine 1.17, hemoglobin 9.8 g/dL. ASSESSMENT: 1. Acute kidney injury, currently resolved. 2. Congestive heart failure; currently being diuresed. Respiratory status has improved. It is mainly diastolic dysfunction. Ejection fraction is preserved at 55% to 60%. 3. Volume overload, currently improved. 4. Hyponatremia, now resolved. Initially hypovolemic. Currently patient is hypervolemic and his sodium is stable with diuresis. 5. Hypokalemia secondary to diuretics, status post replacement. PLAN: Continue with the IV Lasix. Monitor electrolytes. Repeat labs in a.m. MMODL / IJN: [id number] /
[2018-11-19] MEDS: ATORVASTATIN 40 MG TAB PO SCH (21:07)
[2018-11-19] MEDS: MELATONIN 3 MG TABLET PO SCH (21:07)
[2018-11-20 05:30] LABS: Anisocytosis Slight; Basophils # (A) 0.1 k/uL (0-0.2); Basophils % (A) 1 %; Eosinophils % (A) 0 %; HCT 30.4 % (39.0-53.0); HGB 9.8 gm/dL (13.0-17.5); Hypochromasia Slight; Lymphocytes # (A) 0.5 k/uL (1.0-4.8); Lymphocytes % (A) 4 %; MCH 34.3 pg (25.0-35.0); MCHC 32.3 g/dL (31.0-37.0); MCV 106.4 fL (80.0-100.0); Macrocytosis Moderate; Mean Platelet Volume 7.5; Monocytes # (A) 0.5 k/uL (0-1.0); Monocytes % (A) 4 %; Neutrophils # (A) 10.2 k/uL (1.3-7.7); Neutrophils % (A) 89 %; Platelet Count 429 k/uL (150-450); RBC 2.86 m/uL (4.30-5.90); RDW 16.2 % (11.5-15.5); WBC 11.4 k/uL (3.8-10.6)
[2018-11-20 05:42] LABS: Calcium 8.8 mg/dL (8.4-10.2); Magnesium 1.4 mg/dL (1.6-2.3); Phosphorus 2.4 mg/dL (2.5-4.5); Potassium 3.9 mmol/L (3.5-5.1)
[2018-11-20] MEDS ORDERED: Magnesium Replacement Protocol 1 EACH MISC MISCELLANE PRN (05:46)
[2018-11-20] MEDS ORDERED: Phosphorus Replacement Protoco 1 EACH MISC MISCELLANE PRN (05:47)
[2018-11-20] MEDS: MAGNESIUM SULFATE-D5W PMX 1 GM in DEXTROSE/WATER 1 100ML.BAG IVPB SCH ×3 (05:52→08:46)
[2018-11-20] MEDS: oxyCODONE-APAP 10-325MG 1 EACH TAB PO PRN ×3 (06:17→20:29)
[2018-11-20] MEDS: THIAMINE 100 MG TAB PO SCH ×2 (06:34→16:32)
[2018-11-20] MEDS: MIDODRINE 5 MG TAB PO SCH ×3 (06:34→16:31)
[2018-11-20] MEDS ORDERED: POTASSIUM PHOSPHATE 10 MMOL in SODIUM CHLORIDE 0.9% 250 ML IV ONE (07:00)
--- NOTE | 2018-11-20 07:36 | XR ---
EXAMINATION TYPE: XR chest 1V DATE OF EXAM: 11/20/2018 HISTORY: potential thoracentesis . REFERENCE: Previous study dated 11/19/2018. FINDINGS: Definite pneumothorax is not visualized on today's examination. There is bibasilar airspace disease, worse on the right the left. There are bilateral effusions. The heart is not enlarged. IMPRESSION: 1. RESOLUTION OF THE PATIENT'S RIGHT APICAL PNEUMOTHORAX. 2. CONTINUING BIBASILAR AIRSPACE DISEASE, WORSE ON THE RIGHT LEFT. 3. BILATERAL EFFUSIONS.
[2018-11-20] MEDS: NOREPINEPHRINE 4 MG in SODIUM CHLORIDE 0.9% 250 ML IV SCH (08:38)
[2018-11-20] MEDS: HYDROCORTISONE SUCCINATE 100 MG/2 ML VIAL IV SCH ×3 (08:46→23:42)
[2018-11-20] MEDS: SODIUM BICARBONATE TAB 650 MG TAB PO SCH (08:47)
[2018-11-20] MEDS: GABAPENTIN 300 MG CAP PO SCH ×3 (08:48→21:09)
[2018-11-20] MEDS: NICOTINE 21MG/24HR PATCH TRANSDERM SCH (08:48)
[2018-11-20] MEDS: MULTIVITAMINS, THERA 1 EACH TAB PO SCH (08:48)
[2018-11-20] MEDS: PANTOPRAZOLE 40 MG TABLET PO SCH (08:48)
[2018-11-20] MEDS: POTASSIUM CHLORIDE ER 20 MEQ TAB.ER PO SCH ×4 (08:48→21:09)
[2018-11-20] MEDS: CILOSTAZOL 100 MG TAB PO SCH ×2 (08:49→21:40)
[2018-11-20] MEDS: DICYCLOMINE 10 MG CAP PO SCH ×3 (08:49→21:40)
[2018-11-20] MEDS: DULoxetine HCL 60 MG CAPSULE.DR PO SCH (08:52)
--- NOTE | 2018-11-20 09:38 | P.PN ---
Subjective Progress Note Date: 11/20/18 Principal diagnosis: This is a 63-year-old male seen in consultation because of hyponatremia and acute kidney injury, this was deemed from cardiorenal syndrome. He has congestive heart failure is on Lasix 40 every 12. A chest x-ray continues to show congestive heart failure. He had normal chest x-ray earlier today weeks ago. He had a pleural tap Yesterday from the Right Side. Because of this morning he says he is feeling better less short of breath minimal cough. He is on oxygen via nasal cannula at 2 L He is on levo fed there has been discontinued. He is also on Nilandron because of the low blood pressure. Objective - Vital Signs Vital signs: Vital Signs Temp 97.8 F 11/20/18 08:00 Pulse 116 H 11/20/18 09:00 Resp 18 11/20/18 09:00 BP 87/60 11/20/18 09:00 Pulse Ox 96 11/20/18 09:00 Intake & Output 11/19/18 11/20/18 11/20/18 18:59 06:59 18:59 Intake Total 1238.675 540 390 Output Total 840 1615 35 Balance 398.675 -1075 355 Weight 59.8 kg Intake: IV 220 300 390 Magnesium Sulfate-D5w Pmx 100 100 1 gm In Dextrose/Water 1 100ml.bag @ 100 mls/hr IVPB Q1H [facility] Rx#: [id number] Normal Saline 220 200 40 Potassium Phosphate 10 250 mmol In Sodium Chloride 0 .9% 250 ml @ 125 mls/hr IV ONCE ONE Rx#:[id number] Intake, IV Titration 66.675 Amount Norepinephrine 4 mg In 66.675 Sodium Chloride 0.9% 250 ml @ 0.05 MCG/KG/MIN 11. 906 mls/hr IV .[id number] [facility] Rx#:[id number] Oral 952 240 Output: Urine 640 915 35 Stool 200 700 Other: Voiding Method Indwelling Catheter Indwelling Catheter Indwelling Catheter # Voids 1 On examination is awake alert oriented. On liters nasal cannula HEENT exam no JVP neck is supple no facial asymmetry Lungs are significant for occasional coarse crackles at bases. Fair air entry bilaterally Heart sounds are unremarkable for any murmur rub gallop Abdomen soft nontender no masses felt no organomegaly ascites Extremity exam was no edema On the left toes there are small areas of skin erythema and tiny areas of near necrosis. He does have pain in the left foot. On neurologically awake alert and oriented - Labs CBC & Chem 7: 11/20/18 04:59 11/20/18 04:59 Labs: Abnormal Lab Results - Last 24 Hours (Table) 11/20/18 11/20/18 Range/Units 04:59 04:59 WBC 11.4 H (3.8-10.6) k/uL RBC 2.86 L (4.30-5.90) m/uL Hgb 9.8 L (13.0-17.5) gm/dL Hct 30.4 L (39.0-53.0) % MCV 106.4 H (80.0-100.0) fL RDW 16.2 H (11.5-15.5) % Neutrophils # 10.2 H (1.3-7.7) k/uL Lymphocytes # 0.5 L (1.0-4.8) k/uL Chloride 96 L (98-107) mmol/L Carbon Dioxide 37 H (22-30) mmol/L Glucose 106 H (74-99) mg/dL Phosphorus 2.4 L (2.5-4.5) mg/dL Magnesium 1.4 L (1.6-2.3) mg/dL Microbiology - Last 24 Hours (Table) 11/16/18 14:30 Gram Stain - Final Pleural Fluid Body Fluid Culture - Final Assessment and Plan Assessment: Impression 1. Acute kidney injury from cardiorenal syndrome improving, creatinine 1.13. Good urine output. 2. Metabolic alkalosis secondary to diuretics as well as from by mouth bicarbonate bicarb is up to 37 3. Hyponatremia secondary to acute kidney injury resolved. 4. Hypomagnesemia secondary to low intake and diuretics 5. Anemia off chronic illness hemoglobin went down from 10.4-9.8 Recommendation 1. Maintain blood pressure with Venofer if necessary 2. Maintain Lasix at current dose of 40 every 12 IV. Urine output was 2455 last 24 hours he is 3. Expect blood pressure to be maintained with diuresis as his left ventricular function should improve with the reduction in the filling pressures. 4. Watch bicarb but discontinue the by mouth bicarb 5. Watch hemoglobin.
[2018-11-20] MEDS: SPIRONOLACTONE 25 MG TAB PO SCH (10:07)
[2018-11-20] MEDS: DIGOXIN 250 MCG TAB PO SCH (12:39)
[2018-11-20] MEDS: APIXABAN 5 MG TAB PO SCH ×2 (12:39→21:09)
[2018-11-20] MEDS: FUROSEMIDE 10 MG/ML 4 ML VIAL IV SCH ×2 (12:39→23:42)
--- NOTE | 2018-11-20 13:05 | P.PN ---
Subjective Progress Note Date: 11/20/18 Principal diagnosis: Shortness of breath Patient was seen and examined. No acute events overnight. Complains of feeling cold. He denies any chest pain, shortness of breath or palpitations. No nausea or vomiting. No fever or chills. Pain in his toes have improved since yest erday. Objective - Vital Signs Vital signs: Vital Signs Temp 97.8 F 11/20/18 08:00 Pulse 116 H 11/20/18 09:00 Resp 18 11/20/18 09:00 BP 87/60 11/20/18 09:00 Pulse Ox 96 11/20/18 09:00 Intake & Output 11/19/18 11/20/18 11/20/18 18:59 06:59 18:59 Intake Total 1238.675 540 390 Output Total 840 1615 35 Balance 398.675 -1075 355 Weight 59.8 kg Intake: IV 220 300 390 Magnesium Sulfate-D5w Pmx 100 100 1 gm In Dextrose/Water 1 100ml.bag @ 100 mls/hr IVPB Q1H [facility] Rx#: [id number] Normal Saline 220 200 40 Potassium Phosphate 10 250 mmol In Sodium Chloride 0 .9% 250 ml @ 125 mls/hr IV ONCE ONE Rx#:[id number] Intake, IV Titration 66.675 Amount Norepinephrine 4 mg In 66.675 Sodium Chloride 0.9% 250 ml @ 0.05 MCG/KG/MIN 11. 906 mls/hr IV .[id number] [facility] Rx#:[id number] Oral 952 240 Output: Urine 640 915 35 Stool 200 700 Other: Voiding Method Indwelling Catheter Indwelling Catheter Indwelling Catheter # Voids 1 - Exam General: [non toxic], [mild distress], [appears at stated age], [cachectic] Derm: [warm], [dry] Head: [atraumatic], [normocephalic], [symmetric] Eyes: [EOMI], [no lid lag], [anicteric sclera] Mouth: [no lip lesion], [mucus membranes moist] Cardiovascular: [S1S2 reg], [irregularly irregular], [DP nonpalpable bilaterally] Lungs: [Decreased breath sounds bilateral], [crackles at the bases] , [no accessory muscle use] Ext: [no gross muscle atrophy], [no edema], [no contractures], [purple discoloration of the second and third toe, cold extremities] Neuro: [no focal neuro deficits] Psych: [Alert], [oriented], [appropriate affect] - Labs CBC & Chem 7: 11/20/18 04:59 11/20/18 04:59 Labs: Abnormal Lab Results - Last 24 Hours (Table) 11/20/18 11/20/18 Range/Units 04:59 04:59 WBC 11.4 H (3.8-10.6) k/uL RBC 2.86 L (4.30-5.90) m/uL Hgb 9.8 L (13.0-17.5) gm/dL Hct 30.4 L (39.0-53.0) % MCV 106.4 H (80.0-100.0) fL RDW 16.2 H (11.5-15.5) % Neutrophils # 10.2 H (1.3-7.7) k/uL Lymphocytes # 0.5 L (1.0-4.8) k/uL Chloride 96 L (98-107) mmol/L Carbon Dioxide 37 H (22-30) mmol/L Glucose 106 H (74-99) mg/dL Phosphorus 2.4 L (2.5-4.5) mg/dL Magnesium 1.4 L (1.6-2.3) mg/dL Microbiology - Last 24 Hours (Table) 11/16/18 14:30 Gram Stain - Final Pleural Fluid Body Fluid Culture - Final Assessment and Plan Assessment: Assessment and Plan Hypotension Bilateral pleural effusions Atrial fibrillation with RVR Pneumonia Suicidal ideation Troponin elevation with history of stent placement, rule out acute coronary sy ndrome Left toe discoloration, history of Raynaud's, rule out thromboembolic given history of A. fib Alcohol abuse with high risk of withdrawal Gastritis Abnormal chest x-ray Protein calorie malnutrition COPD Resolved: Lactic acidosis, acute kidney injury, hypokalemia, hyponatremia Relative adrenal insufficiency with AM cortisol of 6. Levophed was continued around 10 AM yesterday. Plans: Continue Midodrine. Continue Cortef but decreased to 50 mg IV every 8 hours. As seen on chest Xray. Chest ultrasound obtained. Plans: Diuresis with Lasix 40 mg IV twice a day. No thoracentesis by pulmonology. Follow pulmonology recommendations. Improved. Currently sinus. Plans: Diltiazem drip discontinued as patient is back in sinus. Plans for beta lula when off pressors. Can resume Eliquis if thoracocentesis is not performed. Follow cardiology recommendations. Completed course of Zithromax and Zosyn. Cultures currently negative. Plans: Follow pleural fluid culture. Follow pulmonology recommendations. Mostly related to pain. Evaluated by psychiatry, sitter discontinued. Acute coronary syndrome has been ruled out. Likely related to acute renal failure. Cardiology evaluated, but no further workup. Evaluated by vascular surgery. No further workup recommended. Plans: Pain control with gabapentin, Cymbalta, oxycodone and morphine as needed. Will need to go to rehab on discharge. Plans: CIWA protocol. Ativan as needed for withdrawal symptoms. Multivitamin and thiamine. Plans: Zofran as needed for nausea or vomiting. Continue Protonix IV daily. Plans: We'll need adequate follow up in the outpatient setting to rule out lung cancer given history of smoking. BMI 17.9. Plans: Follow Dietitian recommendations. Plans: DuoNeb as needed for shortness of breath or wheezing. [Levophed discontinued yesterday. No thoracentesis by pulmonology. He is pending clinical improvement. Likely DC in 1-2 days. ]
--- NOTE | 2018-11-20 13:24 | P.PN ---
Subjective Progress Note Date: 11/20/18 Principal diagnosis: acute hypoxic respiratory failure, related to pulmonary edema and the right lung pneumonia A 63-year-old male patient quite debilitated with multiple medical problems and comorbidities who initially came into the hospital because of foot pain. Note that the patient has multiple other medical issues and we will consult on the patient knowing that he has developed a worsening shortness of breath with bilateral pleural effusion and possible right lung pneumonia. This patient has history of COPD, coronary artery disease, hypertension, atrial fibrillation, previous complicated diverticulitis requiring and ostomy creation, history of peripheral vascular disease and the patient presented with pain in the lower extremity and there was a concern of a acute ischemic leg. The patient was having pain in his left foot and the patient had been done on for the past several months. He had also discolored toes which has been a chronic problem. The patient underwent further CT angiogram that showed atherosclerotic calcification throughout and on the right anterior tibial artery was occluded in the upper leg and there was two-vessel runoff into the foot through the peroneal artery and on the left there was a 2 vessel runoff into the foot through the pe roneal artery also. The patient was started on Pletal and no further vascular intervention was planned for this patient. During the course of his treatment, the patient came in with a creatinine of 1.8. The patient was given IV fluids. Creatinine gradually improved with IV fluids. His troponins were slightly elevated at time of admission and gradually down trended. His acute kidney injury also improved. Echo of the heart showed mild LVH with an ejection fraction of 55-60% otherwise unremarkable. Cardiology evaluated the patient and no acute cardiac intervention is being planned. Nephrology also evaluated the patient and midodrine was added to optimize the blood pressure. He was com plaining of chronic pain for which pain management was involved. He was complaining of increased depression and threatening of suicide and for that reason a psychiatric evaluation was question and the patient was given a 24-hour sitter at the bedside. Subsequently the patient developed some hemoptysis. He was on IV heparin and the level was supratherapeutic. A CAT scan of the chest was done and showed bilateral pleural effusion and addition to diffuse infiltration of the right lung compared to the left consistent with either asymmetric pulmonary edema or right lung pneumonia. The patient was started on a combination of Zithromax and Zosyn. On the morning of 11/12/2018 the patient was having some limited hemoptysis still in small amounts. No nausea. No vomiting. No GI bleeding. No other complaints otherwise for now. He is not receiving any form of diuretics at this point in time. The patient is seen today 11/13/2018 in follow-up on the selective care unit. He is currently sitting up in bed. Awake and alert in no acute distress. HEENT O2 saturations in the low 90s on 2 L/m per nasal cannula. He's been afebrile. Sputum culture pending. White count 8.1. Hemoglobin 9.1. Potassium 2.8. Creatinine 1.36. He is maintained on DuoNeb inhalations, Zosyn and azithromyci n. On 11/14/2018 the patient is resting comfortably in bed. Nevertheless she is still cough and not bloody mucus. A repeat chest x-ray was done today showed increased confluence and multifocal opacities most compatible with multilobar pneumonia. He remains on a combination of Zosyn and Zithromax. I do suspect a component of fluid/CHF/interstitial edema as the patient has also bilateral pleural effusion. He'll be started on Lasix today. Despite this worsening in his chest x-ray findings, his white blood count remains nonelevated at 5.3. Hemoglobin is at 8.3. His renal function stable with a creatinine of 1.2. Sputum sample that was sent for Gram stain and culture and the results are still pending for now. He continues to have a depressed mood and there is a 24 hour sitter at the bedside at all times. On 11/15/2018 patient seen in follow-up on selective care unit. He is awake and alert, still has a traffic safety administrator at the bedside apparently the patient is impulsive at times, and one at to leave AMA however she is unable to ambulate. Denies any dyspnea, he is only complaint is some left foot pain. No cough or congestion. NO chest wall discomfort. Room air pulse ox is 98%, his been afebrile, blood urine and sputum cultures are negative. These labs have been reviewed, showing white blood cell count of 4.5, hemoglobin of 8.6, serum sodium is 1:30, the rest of electrolytes and renal profile were within normal limits. Patient has been treated with a combination of antibiotics in the form of Zithromax, Zosyn and Lasix, Lasix has been discontinued. Yesterday's chest x- ray showed increasing confluence of the multifocal opacity compatible with multifocal pneumonia and small parapneumonic effusions. Clinically patient remains stable. Patient is on IV fluid restriction for hyponatremia, today sodium is 1:30, Lasix is on hold per nephrology, and IV hydrocortisone was added for hypertension, midodrine has been added On 11/16/2018 patient seen in follow-up on selective care unit. Yesterday he received an extra dose of IV Lasix, and today he is in -1095 ML fluid balance, lung sounds reveal extremely diminished breath sounds over bilateral bases, right greater than left. Scattered crackles, no significant wheezes, he states he still having some persistent hemoptysis. Feels short of breath, although does not appear to be in any acute distress, currently on 2-3 L of oxygen with a pulse ox of 94%, he is tachycardic, generally weak. Complains of intermittent pain in his left foot, and abdomen, no nausea or vomiting. Follow-up chest x- ray was obtained showing increased interstitium, bilateral pleural effusions versus pneumonia. Ultrasound of the chest has been ordered and pending at this time. On today's labs there is slight worsening of patient's renal function, with creatinine up to 1.3 from yesterday's labs of 1.16. Serum sodium is 133, p otassium is 3.5, chloride is 96. No complaints of chest pain, his pro- calcitonin is actually down trending, last one on 11/13/2018 was down to 0.55 from 0.78. White count is 11.3, hemoglobin is 10.1. Urine, blood and sputum cultures are negative thus far, she has been afebrile. Remains on a combination of Zithromax and Zosyn. On 11/17/2018 patient is seen in follow-up on selective care unit, still complaining of pain, but states that his shortness of breath seems to have improved since the thoracentesis yesterday would removal of 700 mL of pleural fluid. Pleural fluid analysis shows transudative fluid, and pleural fluid cultures are pending. Patient had a postprocedural pneumothorax on the right, clinically remains stable, follow-up chest x-ray today was obtained showing stable right-sided apical pneumothorax. Findings similar to prior exam, pleural effusions and basilar edema. Patient was given a dose of IV Lasix yesterday and he is maintaining negative fluid balance, he is in -1825 mL fluid balance over the last 24 hours. However patient did become hypotensive with a blood pressures of 70/40, and his IV diuretics were held this morning. The decision was made to transfer the patient to the intensive care unit for close hemodynamic monitoring, hypotension, and start the patient on levo fed for blood pressure support, patient is on maximum dose of midodrine, his hydrocortisone dose is being tapered. We'll continue with IV diuretics, and IV antibiotics. Patient was reevaluated today on 11/18/2018, he was transferred yesterday from the cardiac floor to the ICU mostly because he was running low blood pressure. I wanted to continue the Lasix, hence I recommended moving the patient to the ICU, started the patient on norepinephrine and continue the Lasix at 40 mg IV push every 12 hours. Patient is feeling a bit better today, breathing easier, chest x-ray is showing improved aeration in the right midlung and right lower lobe area, however continues to have evidence of interstitial edema and possibly some air space disease involving the right lower lobe. His urine output is better with the Lasix and with the norepinephrine on board. Patient is presently on norepinephrine at 0.08 mcg/kg/m. Blood pressures improved however the patient went on to develop recurrent episodes of atrial fibrillation and he was placed on Cardizem drip. He is presently on 5 mg per hour. Remains on antibiotics, remains on diuretics, and he remains on stress doses of hydroc ortisone. I believe the patient is showing definite improvement in the last 24 hours.his renal functioning is even improved creatinine is down to 1.19 from 1.34 . I have no plans of holding diuretics at this point.the pleural effusion was transudate of in nature. The right-sided iatrogenic pneumothorax is almost resolved, barely seen in the right apex. Clinically again the patient is feeling a bit better he continues to have aches and pains. But his pulmonary status is improved. Reevaluated today on 11/19/2018, patient remains in the intensive care unit, remains on tiny dose of norepinephrine to maintain adequate blood pressure, remains on diuretics, chest x-ray continues to show evidence of pulmonary edema, bilateral pleural effusions, and possibly right lower lobe pneumonia. Patient is clinically better, however his chest x-ray is still concerning to me. Repeat ultrasound of the chest today showed bilateral pleural effusions again, may consider left-sided thoracentesis on this patient if he continues to not show significant improvement with diuretics. Remains on Lasix IV push every 12 hours. Remains on multiple cardiac meds, however he is off Cardizem drip. He remains on stress doses of hydrocortisone. Renal functioning is improving. Hence I have no plans to hold his diuretics at this point. His right-sided pneumothorax has completely resolved and this was iatrogenic related to right- sided thoracentesis few days ago. Continues to have aches and pains. Overall pulmonary status is improved but not resolved. Reevaluated today on 11/20/2018, patient remains in the ICU, he is now off norepinephrine, blood pressure is marginal urine output is excellent, patient remains on diuretics, and his chest x-ray continues to show bilateral pleural effusions clinically however the patient is feeling much better and he is only on 2 L nasal cannula saturating at 90 Diprivan percent. Hardly any shortness of breath, no cough, no wheezing, no fever, no chills, no hemoptysis and no chest pain. I was considering left-sided thoracentesis on the patient, however considering his dramatic clinical improvement, I will cancel plans for left- sided thoracentesis, will continue diuretics, and I will arrange for the patient to be sent to a cardiac floor. In the meantime I will start the patient back on Eliquis for his paroxysmal atrial fibrillation. Objective - Vital Signs Vital signs: Vital Signs Temp 97.8 F 11/20/18 08:00 Pulse 107 H 11/20/18 11:00 Resp 17 11/20/18 11:00 BP 107/74 11/20/18 11:00 Pulse Ox 97 11/20/18 11:00 Intake & Output 11/19/18 11/20/18 11/20/18 18:59 06:59 18:59 Intake Total 1238.675 540 670 Output Total 840 1615 125 Balance 398.675 -1075 545 Weight 59.8 kg Intake: IV 220 300 470 Magnesium Sulfate-D5w Pmx 100 100 1 gm In Dextrose/Water 1 100ml.bag @ 100 mls/hr IVPB Q1H [facility] Rx#: [id number] Normal Saline 220 200 120 Potassium Phosphate 10 250 mmol In Sodium Chloride 0 .9% 250 ml @ 125 mls/hr IV ONCE ONE Rx#:[id number] Intake, IV Titration 66.675 Amount Norepinephrine 4 mg In 66.675 Sodium Chloride 0.9% 250 ml @ 0.05 MCG/KG/MIN 11. 906 mls/hr IV .[id number] [facility] Rx#:[id number] Oral 952 240 200 Output: Urine 640 915 125 Stool 200 700 Other: Voiding Method Indwelling Catheter Indwelling Catheter Indwelling Catheter # Voids 1 - Exam Physical Exam: Revealed a 63-year-old white male, on 2 L nasal cannula in no distress Head: Atraumatic, normocephalic. HEENT:[Neck is supple.] [No neck masses.] [No thyromegaly.] [No JVD.]PERRLA, EO SC, no icterus. Moist mucous membranes. Chest: [symmetrical chest expansion, diminished breath sounds at the bases no crackles or rhonchi or wheezes. Cardiac Exam: [Normal S1 and S2, no S3 gallop, no murmur.] Abdomen: [Soft, nontender, no megaly, no rebound, no guarding, normal bowel sounds.] Extremities: [No clubbing, no edema, no cyanosis.]diminished pulses bilaterally.chronic dusky appearance of left second toe on the left foot is noted. Neurological Exam: [No focal neurologic deficit.]alert and oriented 3. Skin: No rashes. Lymphatics: No lymphadenopathy. - Labs CBC & Chem 7: 11/20/18 04:59 11/20/18 04:59 Labs: Abnormal Lab Results - Last 24 Hours (Table) 11/20/18 11/20/18 Range/Units 04:59 04:59 WBC 11.4 H (3.8-10.6) k/uL RBC 2.86 L (4.30-5.90) m/uL Hgb 9.8 L (13.0-17.5) gm/dL Hct 30.4 L (39.0-53.0) % MCV 106.4 H (80.0-100.0) fL RDW 16.2 H (11.5-15.5) % Neutrophils # 10.2 H (1.3-7.7) k/uL Lymphocytes # 0.5 L (1.0-4.8) k/uL Chloride 96 L (98-107) mmol/L Carbon Dioxide 37 H (22-30) mmol/L Glucose 106 H (74-99) mg/dL Phosphorus 2.4 L (2.5-4.5) mg/dL Magnesium 1.4 L (1.6-2.3) mg/dL Microbiology - Last 24 Hours (Table) 11/16/18 14:30 Gram Stain - Final Pleural Fluid Body Fluid Culture - Final Assessment and Plan Assessment: 1 acute hypoxic respiratory failure with bilateral pleural effusions and asymmetric right lung consolidation, multifactorial, related to acute exacerbation of diastoliccongestive heart failure with diastolic dysfunction and right lung pneumonia. sputum cultures have been nondiagnostic. 2 bilateral pleural effusions, likely related to acute exacerbation of diastolic congestive heart failure, status post right-sided thoracentesis would removal of 700 mL of pleural fluid on 11/16/2018, pleural fluid analysis showing transudate of fluid, this speaks in favor of being a cardiac related pleural effusion. 3 iatrogenic right-sided pneumothorax secondary to thoracentesis, resolved without any intervention 4 hypotension, related to a combination of adrenal insufficiency, diuretic therapy, and narcotics 5 hemoptysis secondary to above, and has further by anticoagulation, currently inactive in stable 6 coronary artery disease 7 COPD 8 peripheral vascular disease with chronic pain lower extremities in addition to some cyanosis and Raynaud's phenomena 9 paroxysmal atrial fibrillation current rhythm is sinus 10 acute kidney injury recovered 11 troponin leak 13 depression with suicidal intention/ideations currently on close observation with a bedside sitter and psychiatric evaluation was also requested Recommendation: Continue Lasix, continue cardiac meds, patient remains off norepinephrine and I plan to transfer the patient out of the ICU since he is off vasopressors. No need for thoracentesis as the patient has made a significant clinical improvement, will resume Eliquis, will transfer the patient out of the ICU to a cardiac bed today. Continue antibiotics, and diuretics as well as bronchodilators. Time with Patient: Less than 30
[2018-11-20] MEDS: TAMSULOSIN 0.4 MG CAP.ER.24H PO SCH (16:31)
--- NOTE | 2018-11-20 18:28 | PN ---
PROGRESS NOTE Omar is a 63-year-old gentleman with complex medical problems that has been in the ICU for a long time that we are following because of atrial fibrillation. Today he remains in sinus rhythm with sinus tachycardia. The patient has history of paroxysmal atrial fibrillation, congestive heart failure and COPD. On exam, heart rate is around 110 beats per minute. Blood pressure is 107/70, respiratory rate is 18. Chest exam reveals good air entry bilaterally. There are no crackles or rhonchi. Heart exam reveals first and second heart sounds. No gallop. Exam of extremities did not reveal any edema. ASSESSMENT: 1. Paroxysmal atrial fibrillation. 2. Sinus tachycardia. 3. Chronic obstructive pulmonary disease. PLAN: Will treat the patient with digoxin and the patient had been started back on Eliquis. Can transfer out of ICU. MMODL / IJN: [id number] /
[2018-11-20] MEDS: ATORVASTATIN 40 MG TAB PO SCH (21:09)
[2018-11-20] MEDS: MELATONIN 3 MG TABLET PO SCH (21:09)
[2018-11-21 05:51] LABS: Anisocytosis Slight; Basophils # (A) 0.1 k/uL (0-0.2); Basophils % (A) 1 %; Eosinophils # (A) 0.1 k/uL (0-0.7); Eosinophils % (A) 0 %; HCT 30.5 % (39.0-53.0); HGB 9.7 gm/dL (13.0-17.5); Hypochromasia Slight; Lymphocytes # (A) 0.4 k/uL (1.0-4.8); Lymphocytes % (A) 3 %; MCH 33.7 pg (25.0-35.0); MCHC 31.6 g/dL (31.0-37.0); MCV 106.5 fL (80.0-100.0); Macrocytosis Moderate; Mean Platelet Volume 7.7; Monocytes # (A) 0.7 k/uL (0-1.0); Monocytes % (A) 5 %; Neutrophils % (A) 90 %; Platelet Count 499 k/uL (150-450); RBC 2.87 m/uL (4.30-5.90); RDW 16.4 % (11.5-15.5); WBC 14.5 k/uL (3.8-10.6)
[2018-11-21 05:59] LABS: Magnesium 1.9 mg/dL (1.6-2.3); Phosphorus 2.2 mg/dL (2.5-4.5); Potassium 4.6 mmol/L (3.5-5.1)
[2018-11-21] MEDS: oxyCODONE-APAP 10-325MG 1 EACH TAB PO PRN ×4 (06:29→20:35)
[2018-11-21] MEDS: MIDODRINE 5 MG TAB PO SCH ×3 (06:29→16:22)
[2018-11-21] MEDS: THIAMINE 100 MG TAB PO SCH ×2 (06:29→16:22)
[2018-11-21] MEDS: MAGNESIUM SULFATE-D5W PMX 1 GM in DEXTROSE/WATER 1 100ML.BAG IVPB SCH ×2 (06:48→09:26)
--- NOTE | 2018-11-21 07:00 | XR ---
EXAMINATION TYPE: XR chest 1V DATE OF EXAM: 11/21/2018 HISTORY: COPD, pulm edema. REFERENCE: Previous study dated 11/20/2018. FINDINGS: There is bibasilar airspace disease. There are bilateral effusions. Heart size is obscured. The overall appearance is very similar to previous. IMPRESSION: NO SIGNIFICANT INTERVAL CHANGE IN THE APPEARANCE OF THE CHEST.
[2018-11-21] MEDS ORDERED: SODIUM PHOSPHATE 10 MMOL in SODIUM CHLORIDE 0.9% 250 ML IVPB ONE (08:00)
[2018-11-21] MEDS: NOREPINEPHRINE 4 MG in SODIUM CHLORIDE 0.9% 250 ML IV SCH (09:20)
[2018-11-21] MEDS: DULoxetine HCL 60 MG CAPSULE.DR PO SCH (09:26)
[2018-11-21] MEDS: DICYCLOMINE 10 MG CAP PO SCH ×3 (09:27→20:36)
[2018-11-21] MEDS: POTASSIUM CHLORIDE ER 20 MEQ TAB.ER PO SCH ×4 (09:27→20:34)
[2018-11-21] MEDS: PANTOPRAZOLE 40 MG TABLET PO SCH (09:27)
[2018-11-21] MEDS: HYDROCORTISONE SUCCINATE 100 MG/2 ML VIAL IV SCH ×2 (09:27→20:34)
[2018-11-21] MEDS: NICOTINE 21MG/24HR PATCH TRANSDERM SCH (09:27)
[2018-11-21] MEDS: GABAPENTIN 300 MG CAP PO SCH ×3 (09:27→20:36)
[2018-11-21] MEDS: MULTIVITAMINS, THERA 1 EACH TAB PO SCH (09:27)
[2018-11-21] MEDS: SPIRONOLACTONE 25 MG TAB PO SCH (09:27)
[2018-11-21] MEDS: APIXABAN 5 MG TAB PO SCH ×2 (09:27→20:35)
[2018-11-21] MEDS: CILOSTAZOL 100 MG TAB PO SCH ×2 (09:28→20:35)
[2018-11-21] MEDS: DIGOXIN 250 MCG TAB PO SCH (09:28)
--- NOTE | 2018-11-21 11:15 | P.PN ---
Subjective Progress Note Date: 11/21/18 Principal diagnosis: Shortness of breath Patient was seen and examined. No acute events overnight. Downgraded from ICU yesterday. He denies any chest pain, shortness of breath or palpitations. No nausea or vomiting. No fever or chills. Pain in his toes have improved consid erably. Patient agreeable for rehab. Objective - Vital Signs Vital signs: Vital Signs Temp 98 F 11/21/18 08:00 Pulse 115 H 11/21/18 09:00 Resp 15 11/21/18 11:04 BP 118/86 11/21/18 09:00 Pulse Ox 96 11/21/18 09:00 Intake & Output 11/20/18 11/21/18 11/21/18 18:59 06:59 18:59 Intake Total 880 1050 Output Total 475 455 400 Balance 405 595 -400 Weight 61.1 kg Intake: IV 530 300 Magnesium Sulfate-D5w Pmx 100 1 gm In Dextrose/Water 1 100ml.bag @ 100 mls/hr IVPB Q1H [facility] Rx#: [id number] Normal Saline 180 300 Potassium Phosphate 10 250 mmol In Sodium Chloride 0 .9% 250 ml @ 125 mls/hr IV ONCE ONE Rx#:[id number] Oral 350 750 Output: Urine 475 455 Stool 400 Other: Voiding Method Indwelling Catheter Indwelling Catheter Indwelling Catheter - Exam General: [non toxic], [mild distress], [appears at stated age], [cachectic] Derm: [warm], [dry] Head: [atraumatic], [normocephalic], [symmetric] Eyes: [EOMI], [no lid lag], [anicteric sclera] Mouth: [no lip lesion], [mucus membranes moist] Cardiovascular: [S1S2 reg], [tachycardia], [DP nonpalpable bilaterally] Lungs: [Clear to auscultation bilaterally with decreased breath sounds at the bases], [no crackles] , [no accessory muscle use] Ext: [no gross muscle atrophy], [no edema], [no contractures], [purple discoloration of the second and third toe, cold extremities] Neuro: [no focal neuro deficits] Psych: [Alert], [oriented], [appropriate affect] - Labs CBC & Chem 7: 11/21/18 05:24 11/21/18 05:24 Labs: Abnormal Lab Results - Last 24 Hours (Table) 11/21/18 11/21/18 Range/Units 05:24 05:24 WBC 14.5 H (3.8-10.6) k/uL RBC 2.87 L (4.30-5.90) m/uL Hgb 9.7 L (13.0-17.5) gm/dL Hct 30.5 L (39.0-53.0) % MCV 106.5 H (80.0-100.0) fL RDW 16.4 H (11.5-15.5) % Plt Count 499 H (150-450) k/uL Neutrophils # 13.0 H (1.3-7.7) k/uL Lymphocytes # 0.4 L (1.0-4.8) k/uL Sodium 136 L (137-145) mmol/L Chloride 96 L (98-107) mmol/L Carbon Dioxide 35 H (22-30) mmol/L BUN 23 H (9-20) mg/dL Glucose 124 H (74-99) mg/dL Phosphorus 2.2 L (2.5-4.5) mg/dL Microbiology - Last 24 Hours (Table) 11/16/18 14:30 Anaerobic Culture - Final Pleural Fluid 11/16/18 14:30 Gram Stain - Final Pleural Fluid Body Fluid Culture - Final Assessment and Plan Assessment: Assessment and Plan Hypotension Bilateral pleural effusions Atrial fibrillation with RVR Pneumonia Troponin elevation with history of stent placement, rule out acute coronary syndrome Left toe discoloration, history of Raynaud's, rule out thromboembolic given history of A. fib Alcohol abuse with high risk of withdrawal Gastritis Abnormal chest x-ray Protein calorie malnutrition COPD Resolved: Lactic acidosis, acute kidney injury, hypokalemia, hyponatremia, suicidal ideation Relative adrenal insufficiency with AM cortisol of 6. Levophed was continued around 10 AM yesterday. Plans: Continue Midodrine. Continue Cortef but decreased to 50 mg IV twice a day. As seen on chest Xray. Chest ultrasound obtained. Plans: Diuresis with Lasix 40 mg IV twice a day for 1 more day. No thoracentesis by pulmonology. Follow pulmonology recommendations. Improved. Currently sinus. Plans: Diltiazem drip discontinued as patient is back in sinus. Digoxin started by cardiology. Eliquis restarted for anticoagulation. Follow cardiology recommendations. Completed course of Zithromax and Zosyn. Cultures currently negative. Plans: Follow pleural fluid culture. Follow pulmonology recommendations. Acute coronary syndrome has been ruled out. Likely related to acute renal failure. Cardiology evaluated, but no further workup. Evaluated by vascular surgery. No further workup recommended. Plans: Pain control with gabapentin, Cymbalta, oxycodone and morphine as needed. Will need to go to rehab on discharge. Plans: CIWA protocol. Ativan as needed for withdrawal symptoms. Multivitamin and thiamine. Plans: Zofran as needed for nausea or vomiting. Continue Protonix IV daily. Plans: We'll need adequate follow up in the outpatient setting to rule out lung cancer given history of smoking. BMI 18.3. Plans: Follow Dietitian recommendations. Plans: DuoNeb as needed for shortness of breath or wheezing. [Blood pressure has improved. Digoxin started for A. fib. No plans for thoracentesis per pulmonology. Diuresis for 1 more day. DC tomorrow to rehab.]
--- NOTE | 2018-11-21 11:27 | P.PN ---
Subjective Progress Note Date: 11/21/18 Principal diagnosis: acute hypoxic respiratory failure, related to pulmonary edema and the right lung pneumonia A 63-year-old male patient quite debilitated with multiple medical problems and comorbidities who initially came into the hospital because of foot pain. Note that the patient has multiple other medical issues and we will consult on the patient knowing that he has developed a worsening shortness of breath with bilateral pleural effusion and possible right lung pneumonia. This patient has history of COPD, coronary artery disease, hypertension, atrial fibrillation, previous complicated diverticulitis requiring and ostomy creation, history of peripheral vascular disease and the patient presented with pain in the lower extremity and there was a concern of a acute ischemic leg. The patient was having pain in his left foot and the patient had been done on for the past several months. He had also discolored toes which has been a chronic problem. The patient underwent further CT angiogram that showed atherosclerotic calcification throughout and on the right anterior tibial artery was occluded in the upper leg and there was two-vessel runoff into the foot through the peroneal artery and on the left there was a 2 vessel runoff into the foot through the pe roneal artery also. The patient was started on Pletal and no further vascular intervention was planned for this patient. During the course of his treatment, the patient came in with a creatinine of 1.8. The patient was given IV fluids. Creatinine gradually improved with IV fluids. His troponins were slightly elevated at time of admission and gradually down trended. His acute kidney injury also improved. Echo of the heart showed mild LVH with an ejection fraction of 55-60% otherwise unremarkable. Cardiology evaluated the patient and no acute cardiac intervention is being planned. Nephrology also evaluated the patient and midodrine was added to optimize the blood pressure. He was com plaining of chronic pain for which pain management was involved. He was complaining of increased depression and threatening of suicide and for that reason a psychiatric evaluation was question and the patient was given a 24-hour sitter at the bedside. Subsequently the patient developed some hemoptysis. He was on IV heparin and the level was supratherapeutic. A CAT scan of the chest was done and showed bilateral pleural effusion and addition to diffuse infiltration of the right lung compared to the left consistent with either asymmetric pulmonary edema or right lung pneumonia. The patient was started on a combination of Zithromax and Zosyn. On the morning of 11/12/2018 the patient was having some limited hemoptysis still in small amounts. No nausea. No vomiting. No GI bleeding. No other complaints otherwise for now. He is not receiving any form of diuretics at this point in time. The patient is seen today 11/13/2018 in follow-up on the selective care unit. He is currently sitting up in bed. Awake and alert in no acute distress. HEENT O2 saturations in the low 90s on 2 L/m per nasal cannula. He's been afebrile. Sputum culture pending. White count 8.1. Hemoglobin 9.1. Potassium 2.8. Creatinine 1.36. He is maintained on DuoNeb inhalations, Zosyn and azithromyci n. On 11/14/2018 the patient is resting comfortably in bed. Nevertheless she is still cough and not bloody mucus. A repeat chest x-ray was done today showed increased confluence and multifocal opacities most compatible with multilobar pneumonia. He remains on a combination of Zosyn and Zithromax. I do suspect a component of fluid/CHF/interstitial edema as the patient has also bilateral pleural effusion. He'll be started on Lasix today. Despite this worsening in his chest x-ray findings, his white blood count remains nonelevated at 5.3. Hemoglobin is at 8.3. His renal function stable with a creatinine of 1.2. Sputum sample that was sent for Gram stain and culture and the results are still pending for now. He continues to have a depressed mood and there is a 24 hour sitter at the bedside at all times. On 11/15/2018 patient seen in follow-up on selective care unit. He is awake and alert, still has a pilot safety inspector at the bedside apparently the patient is impulsive at times, and one at to leave AMA however she is unable to ambulate. Denies any dyspnea, he is only complaint is some left foot pain. No cough or congestion. NO chest wall discomfort. Room air pulse ox is 98%, his been afebrile, blood urine and sputum cultures are negative. These labs have been reviewed, showing white blood cell count of 4.5, hemoglobin of 8.6, serum sodium is 1:30, the rest of electrolytes and renal profile were within normal limits. Patient has been treated with a combination of antibiotics in the form of Zithromax, Zosyn and Lasix, Lasix has been discontinued. Yesterday's chest x- ray showed increasing confluence of the multifocal opacity compatible with multifocal pneumonia and small parapneumonic effusions. Clinically patient remains stable. Patient is on IV fluid restriction for hyponatremia, today sodium is 1:30, Lasix is on hold per nephrology, and IV hydrocortisone was added for hypertension, midodrine has been added On 11/16/2018 patient seen in follow-up on selective care unit. Yesterday he received an extra dose of IV Lasix, and today he is in -1095 ML fluid balance, lung sounds reveal extremely diminished breath sounds over bilateral bases, right greater than left. Scattered crackles, no significant wheezes, he states he still having some persistent hemoptysis. Feels short of breath, although does not appear to be in any acute distress, currently on 2-3 L of oxygen with a pulse ox of 94%, he is tachycardic, generally weak. Complains of intermittent pain in his left foot, and abdomen, no nausea or vomiting. Follow-up chest x- ray was obtained showing increased interstitium, bilateral pleural effusions versus pneumonia. Ultrasound of the chest has been ordered and pending at this time. On today's labs there is slight worsening of patient's renal function, with creatinine up to 1.3 from yesterday's labs of 1.16. Serum sodium is 133, p otassium is 3.5, chloride is 96. No complaints of chest pain, his pro- calcitonin is actually down trending, last one on 11/13/2018 was down to 0.55 from 0.78. White count is 11.3, hemoglobin is 10.1. Urine, blood and sputum cultures are negative thus far, she has been afebrile. Remains on a combination of Zithromax and Zosyn. On 11/17/2018 patient is seen in follow-up on selective care unit, still complaining of pain, but states that his shortness of breath seems to have improved since the thoracentesis yesterday would removal of 700 mL of pleural fluid. Pleural fluid analysis shows transudative fluid, and pleural fluid cultures are pending. Patient had a postprocedural pneumothorax on the right, clinically remains stable, follow-up chest x-ray today was obtained showing stable right-sided apical pneumothorax. Findings similar to prior exam, pleural effusions and basilar edema. Patient was given a dose of IV Lasix yesterday and he is maintaining negative fluid balance, he is in -1825 mL fluid balance over the last 24 hours. However patient did become hypotensive with a blood pressures of 70/40, and his IV diuretics were held this morning. The decision was made to transfer the patient to the intensive care unit for close hemodynamic monitoring, hypotension, and start the patient on levo fed for blood pressure support, patient is on maximum dose of midodrine, his hydrocortisone dose is being tapered. We'll continue with IV diuretics, and IV antibiotics. Patient was reevaluated today on 11/18/2018, he was transferred yesterday from the cardiac floor to the ICU mostly because he was running low blood pressure. I wanted to continue the Lasix, hence I recommended moving the patient to the ICU, started the patient on norepinephrine and continue the Lasix at 40 mg IV push every 12 hours. Patient is feeling a bit better today, breathing easier, chest x-ray is showing improved aeration in the right midlung and right lower lobe area, however continues to have evidence of interstitial edema and possibly some air space disease involving the right lower lobe. His urine output is better with the Lasix and with the norepinephrine on board. Patient is presently on norepinephrine at 0.08 mcg/kg/m. Blood pressures improved however the patient went on to develop recurrent episodes of atrial fibrillation and he was placed on Cardizem drip. He is presently on 5 mg per hour. Remains on antibiotics, remains on diuretics, and he remains on stress doses of hydroc ortisone. I believe the patient is showing definite improvement in the last 24 hours.his renal functioning is even improved creatinine is down to 1.19 from 1.34 . I have no plans of holding diuretics at this point.the pleural effusion was transudate of in nature. The right-sided iatrogenic pneumothorax is almost resolved, barely seen in the right apex. Clinically again the patient is feeling a bit better he continues to have aches and pains. But his pulmonary status is improved. Reevaluated today on 11/19/2018, patient remains in the intensive care unit, remains on tiny dose of norepinephrine to maintain adequate blood pressure, remains on diuretics, chest x-ray continues to show evidence of pulmonary edema, bilateral pleural effusions, and possibly right lower lobe pneumonia. Patient is clinically better, however his chest x-ray is still concerning to me. Repeat ultrasound of the chest today showed bilateral pleural effusions again, may consider left-sided thoracentesis on this patient if he continues to not show significant improvement with diuretics. Remains on Lasix IV push every 12 hours. Remains on multiple cardiac meds, however he is off Cardizem drip. He remains on stress doses of hydrocortisone. Renal functioning is improving. Hence I have no plans to hold his diuretics at this point. His right-sided pneumothorax has completely resolved and this was iatrogenic related to right- sided thoracentesis few days ago. Continues to have aches and pains. Overall pulmonary status is improved but not resolved. Reevaluated today on 11/20/2018, patient remains in the ICU, he is now off norepinephrine, blood pressure is marginal urine output is excellent, patient remains on diuretics, and his chest x-ray continues to show bilateral pleural effusions clinically however the patient is feeling much better and he is only on 2 L nasal cannula saturating at 90 percent. Hardly any shortness of breath, no cough, no wheezing, no fever, no chills, no hemoptysis and no chest pain. I was considering left-sided thoracentesis on the patient, however considering his dramatic clinical improvement, I will cancel plans for left-sided thoracentesis, will continue diuretics, and I will arrange for the patient to be sent to a cardiac floor. In the meantime I will start the patient back on Eliquis for his paroxysmal atrial fibrillation. Patient was reevaluated today on 11/21/2018, remains in the ICU, remains off norepinephrine, continues to have good urine output, remains on diuretics, chest x-ray and his left-sided pleural effusion is showing significant improvement, obviously the patient is responding to diuretics, and I have no plans to do thoracentesis today. O2 saturation is 98% on 2 L nasal cannula. Patient tells me that his pulmonary status is significantly improved and his breathing a lot easier compared to the last few days. His right lower lobe continues to show significant as space disease, patient remains on antibiotics, he had a pleural effusion and he continues to have a right-sided pleural effusion, underwent thoracentesis on the right side few days ago, and the fluid was transudate of in nature. Hence it is cardiac in nature and I expect it will improve steadily with diuretics. Labs today showed WBC count of 14.5 hemoglobin is 9.7 and lites are normal bicarb is 35 BUN is 23 creatinine is 1.13 improving compared to the last few days. Objective - Vital Signs Vital signs: Vital Signs Temp 97.5 F L 11/21/18 11:11 Pulse 89 11/21/18 11:11 Resp 20 11/21/18 11:11 BP 115/80 11/21/18 11:11 Pulse Ox 98 11/21/18 11:11 Intake & Output 11/20/18 11/21/18 11/21/18 18:59 06:59 18:59 Intake Total 880 1050 Output Total 475 455 400 Balance 405 595 -400 Weight 61.1 kg Intake: IV 530 300 Magnesium Sulfate-D5w Pmx 100 1 gm In Dextrose/Water 1 100ml.bag @ 100 mls/hr IVPB Q1H [facility] Rx#: [id number] Normal Saline 180 300 Potassium Phosphate 10 250 mmol In Sodium Chloride 0 .9% 250 ml @ 125 mls/hr IV ONCE ONE Rx#:[id number] Oral 350 750 Output: Urine 475 455 Stool 400 Other: Voiding Method Indwelling Catheter Indwelling Catheter Indwelling Catheter - Exam Physical Exam: Revealed a 63-year-old white male, on 2 L nasal cannula in no distress Head: Atraumatic, normocephalic. HEENT:[Neck is supple.] [No neck masses.] [No thyromegaly.] [No JVD.]PERRLA, EOMI, no icterus. Moist mucous membranes. Chest: [symmetrical chest expansion, diminished breath sounds at the bases no crackles or rhonchi or wheezes. Cardiac Exam: [Normal S1 and S2, no S3 gallop, no murmur.] Abdomen: [Soft, nontender, no megaly, no rebound, no guarding, normal bowel sounds.] Extremities: [No clubbing, no edema, no cyanosis.]diminished pulses bilaterally.chronic dusky appearance of left second toe on the left foot is noted. Neurological Exam: [No focal neurologic deficit.]alert and oriented 3. Skin: No rashes. Lymphatics: No lymphadenopathy. - Labs CBC & Chem 7: 11/21/18 05:24 11/21/18 05:24 Labs: Abnormal Lab Results - Last 24 Hours (Table) 11/21/18 11/21/18 Range/Units 05:24 05:24 WBC 14.5 H (3.8-10.6) k/uL RBC 2.87 L (4.30-5.90) m/uL Hgb 9.7 L (13.0-17.5) gm/dL Hct 30.5 L (39.0-53.0) % MCV 106.5 H (80.0-100.0) fL RDW 16.4 H (11.5-15.5) % Plt Count 499 H (150-450) k/uL Neutrophils # 13.0 H (1.3-7.7) k/uL Lymphocytes # 0.4 L (1.0-4.8) k/uL Sodium 136 L (137-145) mmol/L Chloride 96 L (98-107) mmol/L Carbon Dioxide 35 H (22-30) mmol/L BUN 23 H (9-20) mg/dL Glucose 124 H (74-99) mg/dL Phosphorus 2.2 L (2.5-4.5) mg/dL Microbiology - Last 24 Hours (Table) 11/16/18 14:30 Anaerobic Culture - Final Pleural Fluid 11/16/18 14:30 Gram Stain - Final Pleural Fluid Body Fluid Culture - Final Assessment and Plan Assessment: 1 acute hypoxic respiratory failure with bilateral pleural effusions and asymmetric right lung consolidation, multifactorial, related to acute exacerbation of diastoliccongestive heart failure with diastolic dysfunction and right lung pneumonia. sputum cultures have been nondiagnostic. 2 bilateral pleural effusions, likely related to acute exacerbation of diastolic congestive heart failure, status post right-sided thoracentesis would removal of 700 mL of pleural fluid on 11/16/2018, pleural fluid analysis showing transudate of fluid, this speaks in favor of being a cardiac related pleural effusion. 3 iatrogenic right-sided pneumothorax secondary to thoracentesis, resolved without any intervention 4 hypotension, related to a combination of adrenal insufficiency, diuretic therapy, and narcotics 5 hemoptysis secondary to above, and has further by anticoagulation, currently inactive in stable 6 coronary artery disease 7 COPD 8 peripheral vascular disease with chronic pain lower extremities in addition to some cyanosis and Raynaud's phenomena 9 paroxysmal atrial fibrillation current rhythm is sinus 10 acute kidney injury recovered 11 troponin leak 13 depression with suicidal intention/ideations currently on close observation with a bedside sitter and psychiatric evaluation was also requested Recommendation: Continue antibiotics Continue diuretics Since the patient is off norepinephrine, will transfer the patient out of the ICU to a cardiac floor. Continue bronchodilators Discussed and reviewed with the patient is chest x-ray today, and no plans for thoracentesis at this point. Continue updrafts. Continue Eliquis for paroxysmal atrial fibrillation Continue home meds as listed. Transfer patient out of the ICU to a monitor bed on the cardiac floor, and we will continue to follow. Long-term prognosis remains extremely poor and guarded. Time with Patient: Less than 30
--- NOTE | 2018-11-21 12:18 | P.PN ---
Subjective Progress Note Date: 11/21/18 Principal diagnosis: This is a 63-year-old male seen in consultation because of hyponatremia and acute kidney injury, this was deemed from cardiorenal syndrome. He has congestive heart failure is on Lasix 40 every 12. A chest x-ray continues to show congestive heart failure. He had normal chest x-ray earlier today weeks ago. He had a pleural tap day before Yesterday from the Right Side. He continues to say that he is not feeling well. He sees is short of breath is on nasal cannula oxygen Appetite is good but he hates the food here. He also complains of left foot pain left hip pain Objective - Vital Signs Vital signs: Vital Signs Temp 97.5 F L 11/21/18 11:11 Pulse 89 11/21/18 11:35 Resp 20 11/21/18 11:35 BP 115/80 11/21/18 11:11 Pulse Ox 98 11/21/18 11:11 Intake & Output 11/20/18 11/21/18 11/21/18 18:59 06:59 18:59 Intake Total 880 1050 Output Total 475 455 800 Balance 405 595 -800 Weight 61.1 kg Intake: IV 530 300 Magnesium Sulfate-D5w Pmx 100 1 gm In Dextrose/Water 1 100ml.bag @ 100 mls/hr IVPB Q1H [facility] Rx#: [id number] Normal Saline 180 300 Potassium Phosphate 10 250 mmol In Sodium Chloride 0 .9% 250 ml @ 125 mls/hr IV ONCE ONE Rx#:[id number] Oral 350 750 Output: Urine 475 455 Stool 800 Other: Voiding Method Indwelling Catheter Indwelling Catheter Urinal On examination is awake alert oriented comfortable HEENT exam no JVP neck is supple no facial asymmetry Lungs are clear to auscultation good air entry bilaterally Heart sounds are unremarkable for any murmur rub gallop Abdomen soft nontender Extremity exam reveals that small areas of the left first and second toe has early necrosis of the skin but it is tiny spot Neurologically awake alert oriented. - Labs CBC & Chem 7: 11/21/18 05:24 11/21/18 05:24 Labs: Abnormal Lab Results - Last 24 Hours (Table) 11/21/18 11/21/18 Range/Units 05:24 05:24 WBC 14.5 H (3.8-10.6) k/uL RBC 2.87 L (4.30-5.90) m/uL Hgb 9.7 L (13.0-17.5) gm/dL Hct 30.5 L (39.0-53.0) % MCV 106.5 H (80.0-100.0) fL RDW 16.4 H (11.5-15.5) % Plt Count 499 H (150-450) k/uL Neutrophils # 13.0 H (1.3-7.7) k/uL Lymphocytes # 0.4 L (1.0-4.8) k/uL Sodium 136 L (137-145) mmol/L Chloride 96 L (98-107) mmol/L Carbon Dioxide 35 H (22-30) mmol/L BUN 23 H (9-20) mg/dL Glucose 124 H (74-99) mg/dL Phosphorus 2.2 L (2.5-4.5) mg/dL Microbiology - Last 24 Hours (Table) 11/16/18 14:30 Anaerobic Culture - Final Pleural Fluid 11/16/18 14:30 Gram Stain - Final Pleural Fluid Body Fluid Culture - Final Assessment and Plan Assessment: Impression 1. Acute kidney injury from cardiorenal syndrome improving, creatinine 1.13. Good urine output. 2. Metabolic alkalosis secondary to diuretics as well as from by mouth bicarbonate bicarb is up to 37 > 35 3. Hyponatremia secondary to acute kidney injury resolved. 4. Hypomagnesemia secondary to low intake and diuretics. Improved with IV magnesium to 2.2 5. Anemia off chronic illness hemoglobin went down from 10.4-9.7 6. Possible peripheral vascular disease with left foot pain and small areas of ischemic changes on the second and first toe. 7. Mild degree of hypophosphatemia, likely secondary to from low intake and diuresis. Check vitamin D levels Recommendation 1. Maintain Lasix at current dose of 40 every 12 IV. Urine output was 2455 last 24 hours he is 2. Watch hemoglobin. 3. Assess for peripheral vascular disease as he complains of left foot pain. 4. For this level of low phosphorus oral phosphorus is enough.. Check vitamin D levels
[2018-11-21] MEDS: FUROSEMIDE 10 MG/ML 4 ML VIAL IV SCH (12:20)
[2018-11-21] MEDS: TAMSULOSIN 0.4 MG CAP.ER.24H PO SCH (16:22)
--- NOTE | 2018-11-21 19:25 | PN ---
PROGRESS NOTE This is a 63-year-old gentleman with history of COPD, was in the ICU for a long time and we were involved in his care because of paroxysmal atrial fibrillation. He was transferred out of ICU. Appears somewhat confused. He is always complaining of pain in his feet. On exam, comfortable at rest. Heart rate is 89 beats per minute. Blood pressure is 115/80, respiratory rate is 18. Chest exam reveals diminished air entry at the bases. Heart exam reveals first and second heart sounds. No gallop. Exam of extremities did not reveal any edema. Peripheral pulses are diminished. LABS: Show that the hemoglobin is 9.7, potassium is 4.6, creatinine is 1.1. ASSESSMENT: Paroxysmal atrial fibrillation. PLAN: Patient is doing better. He is on Eliquis 5 b.i.d., which I am going to continue and digoxin, which will be continued. MMODL / IJN: [id number] /
[2018-11-21] MEDS: ATORVASTATIN 40 MG TAB PO SCH (20:35)
[2018-11-21] MEDS: MELATONIN 3 MG TABLET PO SCH (20:35)
[2018-11-22] MEDS: oxyCODONE-APAP 10-325MG 1 EACH TAB PO PRN ×4 (01:33→13:48)
[2018-11-22] MEDS: FUROSEMIDE 10 MG/ML 4 ML VIAL IV SCH ×2 (01:34→11:33)
[2018-11-22] MEDS: MIDODRINE 5 MG TAB PO SCH ×2 (05:33→11:33)
[2018-11-22] MEDS: THIAMINE 100 MG TAB PO SCH (05:33)
[2018-11-22] MEDS: HYDROCORTISONE SUCCINATE 100 MG/2 ML VIAL IV SCH ×3 (08:02→09:31)
[2018-11-22 08:39] VITALS: RESP 16
[2018-11-22] MEDS: POTASSIUM CHLORIDE ER 20 MEQ TAB.ER PO SCH ×2 (09:21→11:33)
[2018-11-22] MEDS: PANTOPRAZOLE 40 MG TABLET PO SCH (09:21)
[2018-11-22] MEDS: DIGOXIN 250 MCG TAB PO SCH (09:21)
[2018-11-22] MEDS: MULTIVITAMINS, THERA 1 EACH TAB PO SCH (09:21)
[2018-11-22] MEDS: NICOTINE 21MG/24HR PATCH TRANSDERM SCH (09:22)
[2018-11-22] MEDS: DICYCLOMINE 10 MG CAP PO SCH ×2 (09:22→15:52)
[2018-11-22] MEDS: GABAPENTIN 300 MG CAP PO SCH ×2 (09:22→15:52)
[2018-11-22] MEDS: APIXABAN 5 MG TAB PO SCH (09:22)
[2018-11-22] MEDS: SPIRONOLACTONE 25 MG TAB PO SCH (09:22)
[2018-11-22] MEDS: CILOSTAZOL 100 MG TAB PO SCH (09:22)
[2018-11-22] MEDS: DULoxetine HCL 60 MG CAPSULE.DR PO SCH (09:22)
--- NOTE | 2018-11-22 12:05 | P.DS ---
Providers Date of admission: 11/06/18 15:56 Expected date of discharge: 11/22/18 Attending physician: Sanam Ravi MD Consults: 11/06/18 16:16 Consult Physician Routine Consulting Provider: Faisal Hanson Consult Reason/Comments: elevated troponin Do you want consulting provider notified?: Yes 11/06/18 16:17 Consult Physician Routine Consulting Provider: Cameron Cevallos Consult Reason/Comments: cyanosis of distal extremities, raynauds syndrome Do you want consulting provider notified?: Yes 11/06/18 16:18 Consult Physician Routine Consulting Provider: Elieser Frazier Consult Reason/Comments: suicidal Do you want consulting provider notified?: Yes 11/09/18 10:25 Consult Physician Routine Consulting Provider: Rocael Arana Consult Reason/Comments: HUGH on probable CKD Do you want consulting provider notified?: Yes 11/10/18 12:16 Consult Physician Routine Consulting Provider: Reina Walsh Consult Reason/Comments: LLE pain, raynauds Do you want consulting provider notified?: Yes 11/11/18 16:26 Consult Physician Routine Consulting Provider: Igor York Consult Reason/Comments: Atypical pneumonia vs vasculitis Do you want consulting provider notified?: Yes 11/12/18 08:00 Consult Physician Routine Consulting Provider: Elieser Frazier Consult Reason/Comments: Suicidal ideation Do you want consulting provider notified?: Yes Primary care physician: Stated None Hospital Course: Patient is a 63-year-old male past medical history of atrial fibrillation, COPD, hypertension, coronary artery disease with percutaneous intervention, diverticulitis status post ostomy creation, Reynaud's syndrome, and generalized chronic pain who presented to the emergency department with complaints of suicidal ideation, left toe discoloration, and severe pain. In the ER he underwent an extensive evaluation. He was initially hypotensive at 82/64 but responded to IV fluids. Laboratory analysis showed a leukocytosis of 13.1, sodium 125, bicarbonate 18, BUN 48, and creatinine 1.85. Lactic acid was noted to be elevated at 2.1. Troponin was also elevated at 0.141. Chest x-ray showed findings of COPD and osteophyte formation with concern for possible increased risk of lung cancer. Follow-up CT scan was recommended. He was admitted for possible cellulitis with sepsis of the left lower extremity and troponin elevation with history of coronary artery disease. He was started on IV fluids, troponins were trended, and Rocephin was started with concern for cellulitis. He was also started on normal saline due to his acute kidney injury. He was seen by vascular surgery who felt that the patient likely had significant peripheral arterial disease. Patient was on a heparin drip. His dose of oral sodium bicarb was increased. Lower extremity arterial imaging revealed normal ABIs. CTA with runoff was obtained which showed minor atherosclerotic calcifications with reconstruction. Vascular surgery felt that he had reynauds Disease as he was getting adequate waves forms and small vessel disease. They recommended conservative treatment including Pletal, Calcium channel lula if BP stable. Due to his elevated troponins he underwent an echocardiogram that showed mild LVH, ejection fraction 55-60% and was otherwise unremarkable. Cardiology felt his elevated troponin likely secondary to renal insufficiency. Nephrology was consulted and Midodrin was added to optimize blood pressures. Patient continued not being able to handle the pain anymore and wanted to "end it all" due to pain. He initially would not see psychiatry. He stated his suicidal thoughts were secondary to pain. He was seen by psychiatry and was determined he does not require inpatient psychiatric hospitalization. His Percocet was increased as well as his Neurontin. Pain management was consulted who agreed with these changes. His heparin drip was stopped and was started on Eliquis by cardiology. Overnight on 11/10 he developed significant hemoptysis, His eliquis was stopped. He was noted to have worsening anemia. He underwent a CT of the chest which demonstrated bilateral pleural effusions with diffuse infiltrate throughout the right lung most typical of pneumonia or pneumonitis. He was started on Lasix IV. Patient was started on Zithromax and Zosyn. Pulmonary was consulted, felt more consistent with fluid overload. On the morning of 11/12 he continued to have some hemoptysis. He continued to have low blood pressure and had been maximized on midodrine and florinef was added, cortisol was low normal at 6 in the morning. This was anticipated to be higher due to his acute illness. Cortef was added for possible adrenal insufficiency. Still with low blood pressure and switched to IV cortef which seemed to resolve improve low BP. He has recurrent bilateral pleural effusions and underwent thoracentesis on 11/16/18, he had a small apical pleural effusion. On 11/18/2018 patient went into atrial fibrillation with rapid ventricular rate and was transferred to ICU to be started on Levophed and a Cardizem drip. Patient eventually converted to sinus rhythm and Cardizem drip was discontinued and he was started on digoxin by cardiology. Levophed was able to be weaned down and patient was transferred to [facility] on 11/21/2018. Patient completed his course of Zithromax and Zosyn while inpatient. He was converted to Lasix by mouth in preparation for discharge. His Cortef IV was discontinued and patient was instructed to finish his steroid taper. Patient was seen and examined prior to discharge. No acute events overnight. Patient denies any chest pain, shortness breath or palpitations. No nausea or vomiting. No fever or chills. Patient denies any suicidal ideation. His mood has considerably improved since admission with pain control. Looking forward to rehab. General: [non toxic], [no distress], [appears at stated age], [cachectic] Derm: [warm], [dry] Head: [atraumatic], [normocephalic], [symmetric] Eyes: [EOMI], [no lid lag], [anicteric sclera] Mouth: [no lip lesion], [mucus membranes moist] Cardiovascular: [S1S2 reg], [tachycardia], [DP nonpalpable bilaterally] Lungs: [Clear to auscultation bilaterally with decreased breath sounds at the bases], [no crackles] , [no accessory muscle use] Ext: [no gross muscle atrophy], [no edema], [no contractures], [purple discoloration of the second and third toe, cold extremities] Neuro: [no focal neuro deficits] Psych: [Alert], [oriented], [appropriate affect] Assessment and Plan Hypotension Bilateral pleural effusions Atrial fibrillation with RVR Pneumonia Troponin elevation with history of stent placement, rule out acute coronary syndrome Left toe discoloration, history of Raynaud's, rule out thromboembolic given history of A. fib Alcohol abuse with high risk of withdrawal Gastritis Abnormal chest x-ray Protein calorie malnutrition COPD Resolved: Lactic acidosis, acute kidney injury, hypokalemia, hyponatremia, suicidal ideation Relative adrenal insufficiency with AM cortisol of 6. Levophed was continued around 10 AM yesterday. Plans: Continue Midodrine. Continue Cortef but decreased to 50 mg IV twice a day, needs Prednisone taper on discharge. As seen on chest Xray. Chest ultrasound obtained. Plans: Diuresis with Lasix 40 mg IV twice a day, transition to PO Lasix today. No thoracentesis by pulmonology. Follow pulmonology recommendations. Improved. Currently sinus. Plans: Diltiazem drip discontinued as patient is back in sinus. Digoxin started by cardiology. Discussed with Cardiology [facility] Mess, no additional medications to be added given his hypotension. Eliquis restarted for anticoagulation. Follow cardiology recommendations. Completed course of Zithromax and Zosyn. Cultures currently negative. Plans: Follow pleural fluid culture. Follow pulmonology recommendations. Acute coronary syndrome has been ruled out. Likely related to acute renal failure. Cardiology evaluated, but no further workup. Evaluated by vascular surgery. No further workup recommended. Plans: Pain control with gabapentin, Cymbalta, oxycodone and morphine as needed. Will need to go to rehab on discharge. Plans: CIWA protocol. Ativan as needed for withdrawal symptoms. Multivitamin and thiamine. Plans: Zofran as needed for nausea or vomiting. Continue Protonix IV daily, convert to PO. Plans: We'll need adequate follow up in the outpatient setting to rule out lung cancer given history of smoking. BMI 18.2. Plans: Follow Dietitian recommendations. Plans: DuoNeb as needed for shortness of breath or wheezing. [Plans to discharge the patient to [facility] today on steroid taper. Transition Lasix to oral today. Continue digoxin and Eliquis for A. fib. Has adequate pain control.] Pertinent Studies: Chest x-ray Echocardiogram Lower extremity arterial duplex Ultrasound of the abdomen and bladder CT angiogram aorta with runoff Chest CT Chest ultrasound Patient Condition at Discharge: Stable Plan - Discharge Summary Discharge Rx Participant: Yes New Discharge Prescriptions: New Spironolactone [Aldactone] 25 mg PO DAILY tab Dicyclomine [Bentyl] 10 mg PO TID #0 cap DULoxetine HCL [Cymbalta] 60 mg PO DAILY #30 capsule. Ipratropium-Albuterol Nebulize [Duoneb 0.5 mg-3 mg/3 ml Soln] 3 ml INHALATION RT-QID PRN ampul.neb PRN Reason: Shortness Of Breath Or Wheezing Apixaban [Eliquis] 5 mg PO BID tab Tamsulosin [Flomax] 0.4 mg PO PC-SUPPER cap.er.24h Nicotine 21Mg/24Hr Patch [Habitrol] 1 patch TRANSDERM DAILY patch Digoxin [Lanoxin] 250 mcg PO DAILY tab Furosemide [Lasix] 40 mg PO BID #60 tablet Atorvastatin [Lipitor] 40 mg PO HS tab Melatonin 3 mg PO HS tablet Multivitamins, Thera [Multivitamin (formulary)] 1 each PO DAILY tab Gabapentin [Neurontin] 300 mg PO TID #90 cap oxyCODONE-APAP 10-325MG [Percocet 10-325 mg] 1 each PO Q4H PRN #18 tab PRN Reason: Pain Cilostazol [Pletal] 100 mg PO BID tab predniSONE See Taper PO DIRECTED 12 Days #30 tab Midodrine [ProAmatine] 10 mg PO AC-TID tab Pantoprazole [Protonix] 40 mg PO DAILY tablet. Acetaminophen Tab [Tylenol] 650 mg PO Q6HR PRN tab PRN Reason: Mild Pain Or Fever > 100.5 Thiamine [Vitamin B-1] 100 mg PO BID-W/MEALS tab Discharge Medication List Acetaminophen Tab [Tylenol] 650 mg PO Q6HR PRN tab 11/22/18 [Rx] Apixaban [Eliquis] 5 mg PO BID tab 11/22/18 [Rx] Atorvastatin [Lipitor] 40 mg PO HS tab 11/22/18 [Rx] Cilostazol [Pletal] 100 mg PO BID tab 11/22/18 [Rx] DULoxetine HCL [Cymbalta] 60 mg PO DAILY #30 capsule. 11/22/18 [Rx] Dicyclomine [Bentyl] 10 mg PO TID #0 cap 11/22/18 [Rx] Digoxin [Lanoxin] 250 mcg PO DAILY tab 11/22/18 [Rx] Furosemide [Lasix] 40 mg PO BID #60 tablet 11/22/18 [Rx] Gabapentin [Neurontin] 300 mg PO TID #90 cap 11/22/18 [Rx] Ipratropium-Albuterol Nebulize [Duoneb 0.5 mg-3 mg/3 ml Soln] 3 ml INHALATION RT-QID PRN ampul.neb 11/22/18 [Rx] Melatonin 3 mg PO HS tablet 11/22/18 [Rx] Midodrine [ProAmatine] 10 mg PO AC-TID tab 11/22/18 [Rx] Multivitamins, Thera [Multivitamin (formulary)] 1 each PO DAILY tab 11/22/18 [Rx] Nicotine 21Mg/24Hr Patch [Habitrol] 1 patch TRANSDERM DAILY patch 11/22/18 [Rx] Pantoprazole [Protonix] 40 mg PO DAILY tablet. 11/22/18 [Rx] Spironolactone [Aldactone] 25 mg PO DAILY tab 11/22/18 [Rx] Tamsulosin [Flomax] 0.4 mg PO PC-SUPPER cap.er.24h 11/22/18 [Rx] Thiamine [Vitamin B-1] 100 mg PO BID-W/MEALS tab 11/22/18 [Rx] oxyCODONE-APAP 10-325MG [Percocet 10-325 mg] 1 each PO Q4H PRN #18 tab 11/22/18 [Rx] predniSONE See Taper PO DIRECTED 12 Days #30 tab 11/22/18 [Rx] Follow up Appointment(s)/Referral(s): Jose Ojeda MD [REFERRING] - 2 Weeks None,Stated [Primary Care Provider] - 1-2 days Rocael Arana DO [STAFF PHYSICIAN] - 2 Weeks Víctor Crews MD [STAFF PHYSICIAN] - 1 Week Cameron Cevallos DO [STAFF PHYSICIAN] - 1 Week Reina Walsh MD [STAFF PHYSICIAN] - 1 Week Igor York MD [STAFF PHYSICIAN] - 1 Week Activity/Diet/Wound Care/Special Instructions: Diet: Heart healthy, low-salt Follow-up with PCP within 3 days of discharge. Follow-up with nephrology within 2 weeks of discharge. Follow-up with endocrinology within 2 weeks of discharge. Follow-up with vascular surgery within 2 weeks of discharge. Follow-up with cardiology within 2 weeks of discharge. Follow-up with pulmonology within 2 weeks of discharge. Follow-up with pain management within 2 weeks of discharge. Take all medications as advised. Discharge Disposition: TRANSFER TO SNF/ECF
--- NOTE | 2018-11-22 12:34 | P.PN ---
Subjective Patient is seen in follow for acute kidney injury. Renal function stable as of yesterday. Urine output has been good. No vomiting or diarrhea. Vital signs are stable. General: The patient appeared well nourished and normally developed. HEENT: Head exam is unremarkable. Neck is without jugular venous distension. LUNGS: Breath sounds decreased. HEART: Rate and Rhythm are regular. First and second heart sounds normal. No murmurs, rubs or gallops. ABDOMEN: Abdominal exam reveals normal bowel sounds. Non-tender and non- distended. No evidence of peritonitis. EXTREMITITES: No clubbing, cyanosis, or edema. Objective - Vital Signs Vital signs: Vital Signs Temp 97.5 F L 11/22/18 12:00 Pulse 111 H 11/22/18 12:00 Resp 16 11/22/18 12:00 BP 119/76 11/22/18 12:00 Pulse Ox 94 L 11/22/18 12:00 Intake & Output 11/21/18 11/22/18 11/22/18 18:59 06:59 18:59 Intake Total 320 360 Output Total 2000 1100 Balance -2000 -780 360 Weight 61 kg Intake: IV 80 Normal Saline 80 Oral 240 360 Output: Urine 800 300 Stool 1200 800 Other: Voiding Method Urinal Urinal # Voids 2 1 - Labs CBC & Chem 7: 11/21/18 05:24 11/21/18 05:24 Labs: Abnormal Lab Results - Last 24 Hours (Table) 11/21/18 11/21/18 Range/Units 12:31 12:31 Vitamin D 25-Hydroxy 14.8 L (30.0-100.0) ng/mL PTH Intact 157.1 H (14.0-72.0) pg/mL Assessment and Plan Plan: Assessment: 1. Acute kidney injury mostly prerenal due to hypotension and cardiorenal syndrome. Renal function improved since admission. Creatinine 1.13 as of yesterday. Baseline creatinine near 1. Trace proteinuria noted on UA. C3 little on lower side. Doubt GN as initial UA was quite benign. 2. Hypotension due to intravascular volume depletion. A.m. cortisol level in the normal range but on lower side. On midodrine and cortef. 3. Metabolic alkalosis secondary to diuresis. Sodium bicarb has been discontinued. 4. Peripheral arterial disease. Status post CT and November 3. Vascular surgery following. No interventions planned at this time. 5. Alcohol abuse. 6. History of A. fib. 7. Hypomagnesemia from poor oral intake and alcohol abuse. Better. 8. Hypokalemia secondary to Cortef and Lasix. Better. Maintain on potassium supplementation. 9. Hemoptysis likely due to fluid overload and pneumonia. Anti-GBM negative. ANCA titers negative. Eliquis stopped. Resolved. 10. Volume overload. Improved to diuresis. 11. Hypervolemic hyponatremia. Stable. 12. Urinary retention. Pollack has been removed. Plan: Maintain Lasix 40 mg IV twice daily. Can be transitioned over to oral Lasix 40 mg twice a day upon discharge. Repeat basic metabolic panel and magnesium level 2-3 days postdischarge. Follow up outpatient in the next 1-2 weeks.
[2018-11-22 13:43] VITALS: BMI 18.2
--- NOTE | 2018-11-22 14:33 | P.PN ---
Subjective Progress Note Date: 11/22/18 This is a 63-year-old gentleman admitted with acute hypoxic respiratory failure related to pulmonary edema and pneumonia. Cardiology is following the patient for atrial fibrillation. He continues to be in atrial fibrillation today, heart rate in the 100s to low 1 teens. At this point in time we will continue him on his current medications. Blood pressure 120/70 with a heart rate of 110, 94% on 2 L of oxygen. Objective - Vital Signs Vital signs: Vital Signs Temp 97.5 F L 11/22/18 12:00 Pulse 111 H 11/22/18 12:00 Resp 16 11/22/18 12:00 BP 119/76 11/22/18 12:00 Pulse Ox 94 L 11/22/18 12:00 Intake & Output 11/21/18 11/22/18 11/22/18 18:59 06:59 18:59 Intake Total 320 600 Output Total 2000 1100 180 Balance -2000 -780 420 Weight 61 kg 61 kg Intake: IV 80 Normal Saline 80 Oral 240 600 Output: Urine 800 300 Post Void Residual 180 Stool 1200 800 Other: Voiding Method Urinal Urinal # Voids 2 1 - Exam Head: Atraumatic, normocephalic. HEENT:[Neck is supple.] [No neck masses.] [No thyromegaly.] [No JVD.]PERRLA, EOMI, no icterus. Moist mucous membranes. Chest: [symmetrical chest expansion, diminished breath sounds at the bases no crackles or rhonchi or wheezes. Cardiac Exam: [Normal S1 and S2, no S3 gallop, no murmur.] Abdomen: [Soft, nontender, no megaly, no rebound, no guarding, normal bowel sounds.] Extremities: [No clubbing, no edema, no cyanosis.]diminished pulses bilaterally. chronic dusky appearance of left second toe on the left foot is noted. Neurological Exam: [No focal neurologic deficit.]alert and oriented 3. Skin: No rashes. Lymphatics: No lymphadenopathy. - Labs CBC & Chem 7: 11/21/18 05:24 11/21/18 05:24 Labs: Abnormal Lab Results - Last 24 Hours (Table) 11/21/18 11/21/18 Range/Units 12:31 12:31 Vitamin D 25-Hydroxy 14.8 L (30.0-100.0) ng/mL PTH Intact 157.1 H (14.0-72.0) pg/mL Assessment and Plan Plan: Assessment and plan: 1 acute hypoxic respiratory failure with bilateral pleural effusions and asymmetric right lung consolidation, multifactorial, related to acute exacerbation of diastoliccongestive heart failure with diastolic dysfunction and right lung pneumonia. sputum cultures have been nondiagnostic. 2 bilateral pleural effusions, likely related to acute exacerbation of diastolic congestive heart failure, status post right-sided thoracentesis would removal of 700 mL of pleural fluid on 11/16/2018, pleural fluid analysis showing transudate of fluid, this speaks in favor of being a cardiac related pleural effusion. 3 iatrogenic right-sided pneumothorax secondary to thoracentesis, resolved without any intervention 4 hypotension, related to a combination of adrenal insufficiency, diuretic therapy, and narcotics 5 hemoptysis secondary to above, and has further by anticoagulation, currently inactive in stable 6 coronary artery disease 7 COPD 8 peripheral vascular disease with chronic pain lower extremities in addition to some cyanosis and Raynaud's phenomena 9 paroxysmal atrial fibrillation 10 acute kidney injury recovered 11 troponin abdomen on a not consistent with acute coronary syndrome. Plan From cardiology's perspective, we'll recommend to continue this patient on his current medications. He may be transferred to rehab or ECF from our perspective. DNP note has been reviewed, I agree with a documented findings and plan of care. Patient was seen and examined.
--- NOTE | 2018-11-22 14:44 | P.GSCN ---
History of Present Illness Consult date: 11/22/18 Reason for Consult: Difficulty voiding Requesting physician: Sarbjit Roberts History of present illness: The patient is a 63 yo WM hospitalized with acute hypoxic respiratory failure related to pulmonary edema and right-sided pneumonia. He is a very vague historian. He reports difficulty voiding and suprapubic pain. I am consulted for this reason. He has taken tamsulosin for many years. He states that he had a Pollack catheter earlier in this hospitalization, and that he did not experience the suprapubic pain at that time. 3 urine cultures were obtained between 11/06/2018 and 11/11/2018. 2 were negative, the other showed Racheal. It does not appear that this was treated. He has a history of penile condyloma, treated with Condylox. He denies any prior history of kidney stones. The postvoid residual was recently checked and was 184 mL. Review of Systems - Respiratory Reports dyspnea - Genitourinary Reports dysuria, Denies hematuria Past Medical History Past Medical History: Atrial Fibrillation, Coronary Artery Disease (CAD), COPD, Hypertension Additional Past Medical History / Comment(s): Coronary artery disease, peripheral vascular disease, depression, paroxysmal atrial fibrillation, COPD, generalized chronic pain, history of multiple skeletal fractures including cervical fracture, history of complicated diverticulitis with bowel resection and colostomy and Karen pouch, history of bladder injury during surgery that required surgical repair, history of Raynaud's disease, Last Myocardial Infarction Date:: [facility] History of Any Multi-Drug Resistant Organisms: MRSA Year Discovered:: 04/06/17 MRSA Confirmed at [facility] MDRO Source:: Abdomen Past Surgical History: Bowel Resection, Heart Catheterization With Stent Additional Past Surgical History / Comment(s): 11/2017 PCI with stent at [facility], colonoscopies, bowel resection with ileostomy, cystoscopy for bladder repair, abdominal abscess with surgical intervention, R inguinal hernia repair with mesh, R knee arthroscopy. Past Anesthesia/Blood Transfusion Reactions: No Reported Reaction Date of Last Stent Placement:: 12/06/17 Past Psychological History: Depression Smoking Status: Current every day smoker Past Alcohol Use History: Daily Past Drug Use History: Prescription Drug Abuse - Past Family History Father Family Medical History: Myocardial Infarction ([place]) Additional Family Medical History / Comment(s): Father had 3 MIs, he had his first one at the age of 50 yrs. He at the age of 85 yrs. Mother Family Medical History: No Reported History Additional Family Medical History / Comment(s): Mother was healthy and lived to be 94 or 95 yrs old. Medications and Allergies Home Medications Medication Instructions Recorded Confirmed Type Acetaminophen Tab [Tylenol] 650 mg PO Q6HR PRN tab 11/22/18 Rx Apixaban [Eliquis] 5 mg PO BID tab 11/22/18 Rx Atorvastatin [Lipitor] 40 mg PO HS tab 11/22/18 Rx Cilostazol [Pletal] 100 mg PO BID tab 11/22/18 Rx DULoxetine HCL [Cymbalta] 60 mg PO DAILY #30 capsule. 11/22/18 Rx Dicyclomine [Bentyl] 10 mg PO TID #0 cap 11/22/18 Rx Digoxin [Lanoxin] 250 mcg PO DAILY tab 11/22/18 Rx Furosemide [Lasix] 40 mg PO BID #60 tablet 11/22/18 Rx Gabapentin [Neurontin] 300 mg PO TID #90 cap 11/22/18 Rx Ipratropium-Albuterol Nebulize 3 ml INHALATION RT-QID PRN 11/22/18 Rx [Duoneb 0.5 mg-3 mg/3 ml Soln] ampul.neb Melatonin 3 mg PO HS tablet 11/22/18 Rx Midodrine [ProAmatine] 10 mg PO AC-TID tab 11/22/18 Rx Multivitamins, Thera [Multivitamin 1 each PO DAILY tab 11/22/18 Rx (formulary)] Nicotine 21Mg/24Hr Patch [Habitrol] 1 patch TRANSDERM DAILY patch 11/22/18 Rx Pantoprazole [Protonix] 40 mg PO DAILY tablet. 11/22/18 Rx Spironolactone [Aldactone] 25 mg PO DAILY tab 11/22/18 Rx Tamsulosin [Flomax] 0.4 mg PO PC-SUPPER cap.er.24h 11/22/18 Rx Thiamine [Vitamin B-1] 100 mg PO BID-W/MEALS tab 11/22/18 Rx oxyCODONE-APAP 10-325MG [Percocet 1 each PO Q4H PRN #18 tab 11/22/18 Rx 10-325 mg] predniSONE See Taper PO DIRECTED 12 Days 11/22/18 Rx #30 tab Allergies Allergy/AdvReac Type Severity Reaction Status Date / Time No Known Allergies Allergy Verified 11/06/18 14:49 Surgical - Exam Vital Signs Temp Pulse Resp BP Pulse Ox 94.7 F L 88 18 114/82 93 L 11/06/18 13:07 11/06/18 13:07 11/06/18 13:07 11/06/18 13:07 11/06/18 13:07 - General well developed, well nourished, no distress, other (The patient appears much ol jenn than his stated age.) - Respiratory no normal respiratory effort - Abdomen Left-sided colostomy noted Abdomen: soft, tender (Mild suprapubic tenderness), no guarding, no rigid, no rebound, no distended - Genitourinary normal penis with no external lesions, testicles non-tender - Rectum Rectum: normal sphincter tone, no masses, other (Prostate mildly enlarged but smooth) - Psychiatric oriented to time, oriented to person, oriented to place, speech is normal, memory intact Results - Labs 11/21/18 05:24 11/21/18 05:24 Abnormal Lab Results - Last 24 Hours (Table) 11/21/18 11/21/18 Range/Units 12:31 12:31 Vitamin D 25-Hydroxy 14.8 L (30.0-100.0) ng/mL PTH Intact 157.1 H (14.0-72.0) pg/mL - Imaging US - kidney/bladder: report reviewed Assessment and Plan (1) Enlarged prostate with lower urinary tract symptoms (LUTS) Current Visit: Yes Status: Acute Code(s): N40.1 - BENIGN PROSTATIC HYPERPLASIA WITH LOWER URINARY TRACT SYMP SNOMED Code(s): 453875235 Plan: The patient is a vague historian. He reports dysuria, but also reports suprapubic discomfort when he is not attempting to void. Possible etiologies include BPH and candiduria. However, it is not certain that this is urologic in origin. I would consider increasing the tamsulosin dosage to 0.8 mg daily, and treat with Diflucan unless this was already done. Catheter replacement could be considered, as this may provide symptomatic relief, but I made clear to him that this could increase the risk of nosocomial infection. He is being transferred to [facility] later today. He was advised to follow up with me as needed as an outpatient. Please notify me if I can be of any further assistance. Time with Patient: Greater than 30
--- NOTE | 2018-11-22 15:12 | P.PN ---
Subjective Progress Note Date: 11/22/18 Principal diagnosis: Acute hypoxic respiratory failure with bilateral pleural effusions and right lung consolidation related to pulmonary edema and right lung pneumonia A 63-year-old male patient quite debilitated with multiple medical problems and comorbidities who initially came into the hospital because of foot pain. Note that the patient has multiple other medical issues and we will consult on the patient knowing that he has developed a worsening shortness of breath with bilateral pleural effusion and possible right lung pneumonia. This patient has history of COPD, coronary artery disease, hypertension, atrial fibrillation, previous complicated diverticulitis requiring and ostomy creation, history of peripheral vascular disease and the patient presented with pain in the lower extremity and there was a concern of a acute ischemic leg. The patient was having pain in his left foot and the patient had been done on for the past several months. He had also discolored toes which has been a chronic problem. The patient underwent further CT angiogram that showed atherosclerotic calcification throughout and on the right anterior tibial artery was occluded in the upper leg and there was two-vessel runoff into the foot through the peroneal artery and on the left there was a 2 vessel runoff into the foot through the peroneal artery also. The patient was started on Pletal and no further vascular intervention was planned for this patient. During the course of his treatment, the patient came in with a creatinine of 1.8. The patient was given IV fluids. Creatinine gradually improved with IV fluids. His troponins were slightly elevated at time of admission and gradually down trended. His acute kidney injury also improved. Echo of the heart showed mild LVH with an ejection fraction of 55-60% otherwise unremarkable. Cardiology evaluated the patient and no acute cardiac intervention is being planned. Nephrology also evaluated the patient and midodrine was added to optimize the blood pressure. He was complaining of chronic pain for which pain management was involved. He was complaining of increased depression and threatening of suicide and for that reason a psychiatric evaluation was question and the patient was given a 24-hour sitter at the bedside. Subsequently the patient developed some hemoptysis. He was on IV heparin and the level was supratherapeutic. A CAT scan of the chest was done and showed bilateral pleural effusion and addition to diffuse infiltration of the right lung compared to the left consistent with either asymmetric pulmonary edema or right lung pneumonia. The patient was started on a combination of Zithromax and Zosyn. On the morning of 11/12/2018 the patient was having some limited hemoptysis still in small amounts. No nausea. No vomiting. No GI bleeding. No other complaints otherwise for now. He is not receiving any form of diuretics at this point in time. The patient is seen today 11/13/2018 in follow-up on the selective care unit. He is currently sitting up in bed. Awake and alert in no acute distress. HEENT O2 saturations in the low 90s on 2 L/m per nasal cannula. He's been afebrile. Sputum culture pending. White count 8.1. Hemoglobin 9.1. Potassium 2.8. Creatinine 1.36. He is maintained on DuoNeb inhalations, Zosyn and azithromycin. On 11/14/2018 the patient is resting comfortably in bed. Nevertheless she is still cough and not bloody mucus. A repeat chest x-ray was done today showed increased confluence and multifocal opacities most compatible with multilobar pneumonia. He remains on a combination of Zosyn and Zithromax. I do suspect a component of fluid/CHF/interstitial edema as the patient has also bilateral pleural effusion. He'll be started on Lasix today. Despite this worsening in his chest x-ray findings, his white blood count remains nonelevated at 5.3. Hemoglobin is at 8.3. His renal function stable with a creatinine of 1.2. Sputum sample that was sent for Gram stain and culture and the results are still pending for now. He continues to have a depressed mood and there is a 24 hour sitter at the bedside at all times. On 11/15/2018 patient seen in follow-up on selective care unit. He is awake and alert, still has a safety professional at the bedside apparently the patient is impulsive at times, and one at to leave AMA however she is unable to ambulate. Denies any dyspnea, he is only complaint is some left foot pain. No cough or congestion. NO chest wall discomfort. Room air pulse ox is 98%, his been afebrile, blood urine and sputum cultures are negative. These labs have been reviewed, showing white blood cell count of 4.5, hemoglobin of 8.6, serum sodium is 1:30, the rest of electrolytes and renal profile were within normal limits. Patient has been treated with a combination of antibiotics in the form of Zithromax, Zosyn and Lasix, Lasix has been discontinued. Yesterday's chest x- ray showed increasing confluence of the multifocal opacity compatible with multifocal pneumonia and small parapneumonic effusions. Clinically patient remains stable. Patient is on IV fluid restriction for hyponatremia, today sodium is 1:30, Lasix is on hold per nephrology, and IV hydrocortisone was added for hypertension, midodrine has been added On 11/16/2018 patient seen in follow-up on selective care unit. Yesterday he received an extra dose of IV Lasix, and today he is in -1095 ML fluid balance, lung sounds reveal extremely diminished breath sounds over bilateral bases, right greater than left. Scattered crackles, no significant wheezes, he states he still having some persistent hemoptysis. Feels short of breath, although does not appear to be in any acute distress, currently on 2-3 L of oxygen with a pulse ox of 94%, he is tachycardic, generally weak. Complains of intermittent pain in his left foot, and abdomen, no nausea or vomiting. Follow-up chest x- ray was obtained showing increased interstitium, bilateral pleural effusions versus pneumonia. Ultrasound of the chest has been ordered and pending at this time. On today's labs there is slight worsening of patient's renal function, with creatinine up to 1.3 from yesterday's labs of 1.16. Serum sodium is 133, potassium is 3.5, chloride is 96. No complaints of chest pain, his pro- calcitonin is actually down trending, last one on 11/13/2018 was down to 0.55 from 0.78. White count is 11.3, hemoglobin is 10.1. Urine, blood and sputum cultures are negative thus far, she has been afebrile. Remains on a combination of Zithromax and Zosyn. On 11/17/2018 patient is seen in follow-up on selective care unit, still complaining of pain, but states that his shortness of breath seems to have improved since the thoracentesis yesterday would removal of 700 mL of pleural fluid. Pleural fluid analysis shows transudative fluid, and pleural fluid cultures are pending. Patient had a postprocedural pneumothorax on the right, clinically remains stable, follow-up chest x-ray today was obtained showing stable right-sided apical pneumothorax. Findings similar to prior exam, pleural effusions and basilar edema. Patient was given a dose of IV Lasix yesterday and he is maintaining negative fluid balance, he is in -1825 mL fluid balance over the last 24 hours. However patient did become hypotensive with a blood pressures of 70/40, and his IV diuretics were held this morning. The decision was made to transfer the patient to the intensive care unit for close hemodynamic monitoring, hypotension, and start the patient on levo fed for blood pressure support, patient is on maximum dose of midodrine, his hydrocortisone dose is being tapered. We'll continue with IV diuretics, and IV antibiotics. On 11/22/2018 patient seen in follow-up on selective care unit, denies any respiratory distress, he states his breathing is improving, his only complaint t jose angel is urinary frequency and complaints of urinary retention. Patient has been seen by Dr. Eaton, postvoid residual did not show significant amount of urine, 184 mL. His dose of tamsulosin has been increased and treatment was recommended with Diflucan for Racheal in the urine culture. From pulmonary perspective patient is stable, he is on 2 L of oxygen with a pulse ox of 94%, he is afebrile, hemodynamically patient is stable. He is in -2780 ML fluid balance over the last 24 hours, lung sounds reveal a few scattered rhonchi, no significant wheezing, or rales, his been diuresed, and current dose of Lasix is 40 mg every 12 hours, patient has completed his course of antibiotics. Pleural fluid, blood and sputum cultures have shown no growth, urine culture from 11/10/2018 showed Racheal albicans. he was treated with a combination of Zithromax and Zosyn. Vital signs are stable, no hypotension, transfer is pending to [facility] today. Objective - Vital Signs Vital signs: Vital Signs Temp 97.5 F L 11/22/18 12:00 Pulse 111 H 11/22/18 12:00 Resp 16 11/22/18 12:00 BP 119/76 11/22/18 12:00 Pulse Ox 94 L 11/22/18 12:00 Intake & Output 11/21/18 11/22/18 11/22/18 18:59 06:59 18:59 Intake Total 320 600 Output Total 1999 1100 180 Balance -1999780 420 Weight 61 kg 61 kg Intake: IV 80 Normal Saline 80 Oral 240 600 Output: Urine 800 300 Post Void Residual 180 Stool 1200 800 Other: Voiding Method Urinal Urinal # Voids 2 1 - Exam GENERAL EXAM: Alert, cooperative 63-year-old white male, in mild amount of distress from suprapubic pain, and dysuria on 2 L of oxygen in no acute distress HEAD: Normocephalic/atraumatic. EYES: Normal reaction of pupils, equal size. Conjunctiva pink, sclera white. NOSE: Clear with pink turbinates. THROAT: No erythema or exudates. NECK: No masses, no JVD, no thyroid enlargement, no adenopathy. CHEST: No chest wall deformity. Symmetrical expansion. LUNGS: Extremely diminished air entry at bilateral bases entry with some scattered crackles, no wheeze, rhonchi or dullness. CVS: Regular rate and rhythm, normal S1 and S2, no gallops, no murmurs, no rubs ABDOMEN: Soft, nontender. No hepatosplenomegaly, normal bowel sounds, no guarding or rigidity. EXTREMITIES: No clubbing, no edema, no cyanosis, + pulses and upper and lower extremities. Left second toe on the left foot is slightly dusky, but there are palpable pedal pulses. MUSCULOSKELETAL: Muscle strength and tone normal. SPINE: No scoliosis or deformity SKIN: No rashes CENTRAL NERVOUS SYSTEM: Alert and oriented -3. No focal deficits, tone is normal in all 4 extremities. PSYCHIATRIC: Alert and oriented -3. Appropriate affect. Intact judgment and insight. - Labs CBC & Chem 7: 11/21/18 05:24 11/21/18 05:24 Labs: Abnormal Lab Results - Last 24 Hours (Table) 11/21/18 11/21/18 Range/Units 12:31 12:31 Vitamin D 25-Hydroxy 14.8 L (30.0-100.0) ng/mL PTH Intact 157.1 H (14.0-72.0) pg/mL Assessment and Plan Plan: Assessment: 1 acute hypoxic respiratory failure with bilateral pleural effusions and asymmetric right lung consolidation, multifactorial, related to acute exacerbation of diastoliccongestive heart failure with diastolic dysfunction and right lung pneumonia. sputum cultures have been nondiagnostic. Pleural fluid cytology negative 2 bilateral pleural effusions, likely related to acute exacerbation of diastolic congestive heart failure, status post right-sided thoracentesis would removal of 700 mL of pleural fluid on 11/16/2018, pleural fluid analysis showing transudate of fluid, this speaks in favor of being a cardiac related pleural effusion. Pleural fluid cytology negative 3 iatrogenic right-sided pneumothorax secondary to thoracentesis, resolved without any intervention 4 hypotension, related to a combination of adrenal insufficiency, diuretic therapy, and narcotics 5 hemoptysis secondary to above, and has further by anticoagulation, currently inactive in stable 6 coronary artery disease 7 COPD 8 peripheral vascular disease with chronic pain lower extremities in addition to some cyanosis and Raynaud's phenomena 9 paroxysmal atrial fibrillation current rhythm is sinus 10 acute kidney injury recovered 11 troponin leak 13 depression with suicidal intention/ideations currently on close observation with a bedside sitter and psychiatric evaluation was also requested 14 suprapubic pain and dysuria, related to possibility of BPH and candiduria Plan: Patient is stable for discharge to [facility] from pulmonary perspective. His breathing is stable, denies dyspnea, no cough or congestion, no hemoptysis, pleural sputum and blood cultures showed no growth, patient has completed course of IV antibiotics, clinically improved, his been diuresed. Pleural fluid cytology has been negative. Has been seen by urology and has been cleared for discharge as well. Follow-up in the office with Dr. York in 1 week I performed a history & physical examination of the patient and discussed their management with my nurse practitioner, Carolee Robison. I reviewed the nurse practitioner's note and agree with the documented findings and plan of care. Lung sounds are positive for scattered rhonchi. The findings and the impression was discussed with the patient. I attest to the documentation by the nurse practitioner. Time with Patient: Less than 30
[2018-11-22 15:20] VITALS: BP 123/84; PULSE 107; TEMP 97.6
== END 2018-11-22 16:47 | DRG 871 ==
LOC: EC 13:04 → 3SCARD 15:56 → 2SICU 11-17 11:53 → 3SCARD 11-21 09:46
PROVIDERS: ADMIT Family Medicine; ATTEND Family Medicine
PROC: 0W993ZZ Drainage of Right Pleural Cavity, Percutaneous Approach (ICD-10-PCS; principal; 2018-11-16)
DX: A41.9 Sepsis, unspecified organism (principal); E43 Unspecified severe protein-calorie malnutrition; I50.33 Acute on chronic diastolic (congestive) heart failure; J18.1 Lobar pneumonia, unspecified organism; J96.01 Acute respiratory failure with hypoxia; N17.9 Acute kidney failure, unspecified; E27.40 Unspecified adrenocortical insufficiency; E87.1 Hypo-osmolality and hyponatremia; F33.0 Major depressive disorder, recurrent, mild; I73.01 Raynaud's syndrome with gangrene; J44.0 Chronic obstructive pulmonary disease with (acute) lower respiratory infection; R45.851 Suicidal ideations; R64 Cachexia; R04.2 Hemoptysis; L03.116 Cellulitis of left lower limb; E87.2 Acidosis; J90 Pleural effusion, not elsewhere classified; I75.022 Atheroembolism of left lower extremity; Z68.1 Body mass index [BMI] 19.9 or less, adult; J95.811 Postprocedural pneumothorax; R65.20 Severe sepsis without septic shock; I11.0 Hypertensive heart disease with heart failure; I48.0 Paroxysmal atrial fibrillation; E83.39 Other disorders of phosphorus metabolism; E83.42 Hypomagnesemia; E86.0 Dehydration; D63.8 Anemia in other chronic diseases classified elsewhere; E87.6 Hypokalemia; F17.210 Nicotine dependence, cigarettes, uncomplicated; F45.42 Pain disorder with related psychological factors; F60.9 Personality disorder, unspecified; G89.29 Other chronic pain; I25.10 Atherosclerotic heart disease of native coronary artery without angina pectoris; I49.3 Ventricular premature depolarization; I70.203 Unspecified atherosclerosis of native arteries of extremities, bilateral legs; K29.70 Gastritis, unspecified, without bleeding; N40.1 Benign prostatic hyperplasia with lower urinary tract symptoms; T50.2X5A Adverse effect of carbonic-anhydrase inhibitors, benzothiadiazides and other diuretics, initial encounter; K57.90 Diverticulosis of intestine, part unspecified, without perforation or abscess without bleeding; M79.672 Pain in left foot; M25.552 Pain in left hip; M79.671 Pain in right foot; R33.9 Retention of urine, unspecified; R77.9 Abnormality of plasma protein, unspecified; F10.10 Alcohol abuse, uncomplicated; T38.0X5A Adverse effect of glucocorticoids and synthetic analogues, initial encounter; M25.70 Osteophyte, unspecified joint; Z79.51 Long term (current) use of inhaled steroids; Z79.899 Other long term (current) drug therapy; Z90.49 Acquired absence of other specified parts of digestive tract; Z95.5 Presence of coronary angioplasty implant and graft; Z93.2 Ileostomy status; Z82.49 Family history of ischemic heart disease and other diseases of the circulatory system
CPT/HCPCS: 36415; 71045; 71046; 71250; 75635; 76604; 76770; 80048; 80051; 80053; 80306; 81001; 82150; 82306; 82533; 82550; 82553; 82652; 82945; 83516; 83605; 83615; 83690; 83735; 83880; 83970; 84100; 84132; 84145; 84157; 84300; 84443; 84484; 85025; 85027; 85610; 85730; 86140; 86160; 86162; 86255; 87040; 87070; 87075; 87086; 87102; 87116; 87205; 87206; 87252; 87496; 87498; 87502; 87529; 87634; 87798; 88108; 88305; 89050; 93005; 93306; 93923; 94640; 94760; 96361; 96365; 96376; 99284

== ENCOUNTER → 2019-10-07 | Outpatient (CLI) | payer MEDICARE, OTHER ==
[2019-10-07 12:27] LABS: ABG Base Excess 11.9 mmol/L; ABG HCO3 36 mmol/L (21-25); ABG Oxygen Saturation 91.8 % (94-97); ABG PCO2 55 mmHg (35-45); ABG PH 7.43 (7.35-7.45); ABG PO2 63 mmHg (83-108); ABG TCO2 38 mmol/L (19-24); Allen Test Performed? Yes
[2019-10-07 14:31] LABS: Basophils % (A) 0 %; Eosinophils # (A) 0.2 k/uL (0-0.7); Eosinophils % (A) 3 %; HCT 53.2 % (39.0-53.0); HGB 16.6 gm/dL (13.0-17.5); Hypochromasia Slight; Lymphocytes # (A) 1.5 k/uL (1.0-4.8); Lymphocytes % (A) 19 %; MCH 34.5 pg (25.0-35.0); MCHC 31.2 g/dL (31.0-37.0); MCV 110.5 fL (80.0-100.0); Macrocytosis Marked; Monocytes # (A) 1.3 k/uL (0-1.0); Monocytes % (A) 17 %; Neutrophils # (A) 4.5 k/uL (1.3-7.7); Neutrophils % (A) 59 %; Platelet Count 233 k/uL (150-450); RBC 4.81 m/uL (4.30-5.90); RDW 14.3 % (11.5-15.5); WBC 7.6 k/uL (3.8-10.6)
[2019-10-07 19:18] LABS: Erythrocyte Sedimentation Rate 9 mm/Hr (0-20)
== END | disposition home or self-care (01) ==
LOC: LABWHC1 11:17
PROVIDERS: ATTEND Orthopaedic Surgery
DX: Z47.1 Aftercare following joint replacement surgery (principal); M25.552 Pain in left hip; Z96.642 Presence of left artificial hip joint
CPT/HCPCS: 36415; 36600; 82805; 85025; 85652; 86140

== ENCOUNTER 2021-01-13 05:23 | Inpatient (IN) | payer MEDICARE ==
[2021-01-13] MEDS ORDERED: SODIUM CHLORIDE 0.9% 500 ML 500 ML IV STA (06:17)
[2021-01-13] MEDS ORDERED: SODIUM CHLORIDE 0.9% 1,000 ML IV STA (06:17)
[2021-01-13] MEDS ORDERED: ACETAMINOPHEN TAB 500 MG TAB PO STA (06:18)
--- NOTE | 2021-01-13 06:37 | ED ---
Chest Pain HPI - General Chief Complaint: Chest Pain Stated Complaint: Chest Pain Time Seen by Provider: 01/13/21 06:01 Source: patient, EMS, RN notes reviewed Mode of arrival: EMS Limitations: no limitations - History of Present Illness Initial Comments: This a 65-year-old male presents emergency Department from [facility] with chief complaint of shortness breath, fever. Patient states not felt well last couple days. Patient does admit that he had recent left foot surgery in which he states that he lost the distal portion of his foot secondary to vascular, infection reasons. Patient states that does have some mild chest pressure, difficulty to get a deep breath in. Patient does have a history of A. fib found to have elevated heart rate outpatient does not feel any palpitations currently. Patient denies any nausea vomiting diarrhea constipation is complaining of mild wrist pain which is swollen, red. - Related Data Previous Rx's Medication Instructions Recorded Acetaminophen Tab [Tylenol] 650 mg PO Q6HR PRN tab 11/22/18 Apixaban [Eliquis] 5 mg PO BID tab 11/22/18 Atorvastatin [Lipitor] 40 mg PO HS tab 11/22/18 DULoxetine HCL [Cymbalta] 60 mg PO DAILY #30 capsule. 11/22/18 Dicyclomine [Bentyl] 10 mg PO TID #0 cap 11/22/18 Digoxin [Lanoxin] 250 mcg PO DAILY tab 11/22/18 Furosemide [Lasix] 40 mg PO BID #60 tablet 11/22/18 Gabapentin [Neurontin] 300 mg PO TID #90 cap 11/22/18 Ipratropium-Albuterol Nebulize 3 ml INHALATION RT-QID PRN 11/22/18 [Duoneb 0.5 mg-3 mg/3 ml Soln] ampul.neb Melatonin 3 mg PO HS tablet 11/22/18 Midodrine [ProAmatine] 10 mg PO AC-TID tab 11/22/18 Multivitamins, Thera [Multivitamin 1 each PO DAILY tab 11/22/18 (formulary)] Nicotine 21Mg/24Hr Patch [Habitrol] 1 patch TRANSDERM DAILY patch 11/22/18 Pantoprazole [Protonix] 40 mg PO DAILY tablet. 11/22/18 Spironolactone [Aldactone] 25 mg PO DAILY tab 11/22/18 Tamsulosin [Flomax] 0.4 mg PO PC-SUPPER cap.er.24h 11/22/18 Thiamine [Vitamin B-1] 100 mg PO BID-W/MEALS tab 11/22/18 cilostazoL [Pletal] 100 mg PO BID tab 11/22/18 oxyCODONE-APAP 10-325MG [Percocet 1 each PO Q4H PRN #18 tab 11/22/18 10-325 mg] predniSONE See Taper PO DIRECTED 12 Days 11/22/18 #30 tab Allergies Allergy/AdvReac Type Severity Reaction Status Date / Time No Known Allergies Allergy Verified 01/13/21 05:45 Review of Systems ROS Statement: Those systems with pertinent positive or pertinent negative responses have been documented in the HPI. ROS Other: All systems not noted in ROS Statement are negative. EKG Findings - EKG Comments: EKG Findings:: EKG performed at 5:32 atrial flutter rate of 138 QRS 76 QT/QTC 300/454 Past Medical History Past Medical History: Atrial Fibrillation, Coronary Artery Disease (CAD), COPD, Hypertension Additional Past Medical History / Comment(s): Coronary artery disease, peripheral vascular disease, depression, paroxysmal atrial fibrillation, COPD, generalized chronic pain, history of multiple skeletal fractures including cervical fracture, history of complicated diverticulitis with bowel resection and colostomy and Karen pouch, history of bladder injury during surgery that required surgical repair, history of Raynaud's disease, Last Myocardial Infarction Date:: [facility] History of Any Multi-Drug Resistant Organisms: MRSA Date of last positivie culture/infection: 04/06/17 MRSA Confirmed at [facility] MDRO Source:: Abdomen Past Surgical History: Bowel Resection, Heart Catheterization With Stent Additional Past Surgical History / Comment(s): 11/2017 PCI with stent at [facility], colonoscopies, bowel resection with ileostomy, cystoscopy for bladder repair, abdominal abscess with surgical intervention, R inguinal hernia repair with mesh, R knee arthroscopy, toe amputation, colostomy Past Anesthesia/Blood Transfusion Reactions: No Reported Reaction Date of Last Stent Placement:: 12/06/17 Past Psychological History: Depression Smoking Status: Former smoker Past Alcohol Use History: Daily Past Drug Use History: Prescription Drug Abuse - Past Family History Father Family Medical History: Myocardial Infarction ([place]) Additional Family Medical History / Comment(s): Father had 3 MIs, he had his first one at the age of 50 yrs. He at the age of 85 yrs. Mother Family Medical History: No Reported History Additional Family Medical History / Comment(s): Mother was healthy and lived to be 94 or 95 yrs old. General Exam Limitations: no limitations General appearance: alert, in no apparent distress Head exam: Present: atraumatic, normocephalic, normal inspection Eye exam: Present: normal appearance, PERRL, EOMI. Absent: scleral icterus, conjunctival injection, periorbital swelling ENT exam: Present: normal exam, normal oropharynx, mucous membranes moist Neck exam: Present: normal inspection. Absent: tenderness, meningismus, lymphadenopathy Respiratory exam: Present: respiratory distress (Mild, tachypnea). Absent: normal lung sounds bilaterally, wheezes, rales, rhonchi, stridor Cardiovascular Exam: Present: normal rhythm, tachycardia, normal heart sounds. Absent: systolic murmur, diastolic murmur, rubs, gallop, clicks GI/Abdominal exam: Present: soft, normal bowel sounds. Absent: distended, tenderness, guarding, rebound, rigid Extremities exam: Present: other (Left foot dressing was unwrapped, there are suture, nolberto in place, there is some discoloration to the skin noted no drainage noted.) Neurological exam: Present: alert, oriented X3 Skin exam: Present: warm, dry, intact, normal color. 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 There is no clear source for his fever at this time. Patient found to have bilateral pleural effusions, in A. fib RVR, a flutter patient does have a history was started on Cardizem, heparin as his been receiving heparin and [place]. Patient be admitted for further management treatment. Critical Care Time Critical Care Time: Yes Total Critical Care Time: 35 Disposition Clinical Impression: Atrial fibrillation with RVR, CHF (congestive heart failure), Fever, Dyspnea Disposition: ADMITTED IP TO THIS HOSP Condition: Fair Referrals: Sarbjit Amor DO [Primary Care Provider] - 1-2 days
--- NOTE | 2021-01-13 07:05 | XR ---
EXAMINATION TYPE: XR chest 2V DATE OF EXAM: 01/13/2021 COMPARISON: 11/21/2018 HISTORY: COPD TECHNIQUE: Frontal and lateral views of the chest are obtained. FINDINGS: . There are dense opacities obscuring the hemidiaphragms consistent with moderate pleural effusions. Pulmonary vasculature is not appear congested. There is no pneumothorax. The osseous struc tures are intact IMPRESSION: Moderate bilateral pleural effusions.
[2021-01-13 07:15] LABS: Basophils % (A) 0 %; Eosinophils # (A) 0.1 k/uL (0-0.7); Eosinophils % (A) 1 %; HGB 8.9 gm/dL (13.0-17.5); Lymphocytes # (A) 0.7 k/uL (1.0-4.8); Lymphocytes % (A) 5 %; MCH 31.1 pg (25.0-35.0); MCHC 31.7 g/dL (31.0-37.0); MCV 98.1 fL (80.0-100.0); Mean Platelet Volume 7.9; Monocytes # (A) 1.3 k/uL (0-1.0); Monocytes % (A) 10 %; Neutrophils # (A) 10.1 k/uL (1.3-7.7); Neutrophils % (A) 82 %; Platelet Count 449 k/uL (150-450); RBC 2.85 m/uL (4.30-5.90); RDW 14.6 % (11.5-15.5); WBC 12.3 k/uL (3.8-10.6)
[2021-01-13 07:25] LABS: INR 1.1 (<1.2); Partial Thromboplastin Time 26.8 sec (22.0-30.0); Prothrombin Time 11.4 sec (9.0-12.0)
[2021-01-13] MEDS ORDERED: DILTIAZEM DRIP BOLUS FROM BAG 1 MG SOLN IV ONE (07:42)
[2021-01-13 07:47] LABS: Albumin 2.4 g/dL (3.5-5.0); Calcium 8.1 mg/dL (8.4-10.2); Magnesium 1.7 mg/dL (1.6-2.3); Potassium 4.3 mmol/L (3.5-5.1); Total Bilirubin 0.3 mg/dL (0.2-1.3); Total Protein 5.6 g/dL (6.3-8.2)
[2021-01-13] MEDS: DILTIAZEM 125 MG in SODIUM CHLORIDE 0.9% 100 ML IV SCH (08:15)
[2021-01-13] MEDS ORDERED: FUROSEMIDE 10 MG/ML 4 ML VIAL IV STA (08:32)
[2021-01-13] MEDS ORDERED: HEPARIN SODIUM 1,000 UN/ML (10ML VL) IV ONE (08:46)
[2021-01-13] MEDS: FUROSEMIDE 10 MG/ML 4 ML VIAL IV SCH ×2 (10:02→21:16)
[2021-01-13] MEDS: HEPARIN SOD,PORK IN 0.45% NACL 25,000 UNIT in 0.45% NACL 1 250ML.BAG IV SCH (10:09)
[2021-01-13] MEDS ORDERED: MORPHINE SULFATE 4 MG/ML SYRINGE IVP STA (10:34)
[2021-01-13] MEDS: METOPROLOL TARTRATE 50 MG TAB PO SCH ×2 (12:08→17:08)
[2021-01-13] MEDS: GABAPENTIN 300 MG CAP PO SCH ×2 (12:13→17:08)
[2021-01-13] MEDS ORDERED: ARTIFICIAL TEARS-HYPROMELLOSE DROPS 15 ML BTL RIGHT EYE PRN (12:38)
[2021-01-13] MEDS: MORPHINE SULFATE IR 15 MG TABLET PO SCH ×2 (13:17→21:16)
[2021-01-13 16:02] LABS: Appearance,Urine Clear (Clear); Bilirubin,Urine Negative (Negative); Blood,Urine Negative (Negative); Color,Urine Colorless; Glucose,Urine (UA) Negative (Negative); Ketones,Urine Negative (Negative); Leukocyte Esterase,Urine Moderate (Negative); Nitrite,Urine Negative (Negative); Protein,Urine Negative (Negative); RBC,Urine 1 /hpf (0-5); Specific Gravity,Urine 1.005 (1.001-1.035); Squamous Epithelial Cell,Urine <1 /hpf (0-4); Urobilinogen,Urine <2.0 mg/dL (<2.0); WBC,Urine 30 /hpf (0-5)
--- NOTE | 2021-01-13 18:00 | P.HPIM ---
History of Present Illness H&P Date: 01/13/21 Chief Complaint: Fever or shortness of breath Mr. Joaquin is a 65-year-old male with a significant past medical history of atrial fibrillation, coronary artery disease, peripheral vascular disease, COPD, history of multiple skeletal fractures, complicated diverticulitis with bowel resection and colostomy and Malcolm's pouch was sent from [facility] for the chief complaint of fevers and difficulty in breathing that has been going on for 2 days. Patient is a poor historian. He states that he had his left distal foot amputation done at [facility] 3 weeks back, he also mentioned about having a femoral bypass surgery done at that time. And then he eventually he was discharged to [facility]. Patient states for the past couple of days he has been having increasing shortness of breath and probably had fevers for the last couple of days. Patient had some discomfort of his chest area. Along with difficulty in breathing. He denies having any nausea vomiting or diarrhea. He complains of pain in his left lower extremity. Patient has history of atrial fibrillation and at the time of admission was found to have atrial fibrillation with rapid ventricular rate. At the time of admission patient was having a fever of 100.3, heart rate in 120s to 130s, respiratory rate 16, blood pressure 110/63, saturating at 94% on room air. He had blood work done showing white count of 5.3, hemoglobin 8.9, platelets 449. Sodium 132, potassium 4.2, chloride 103, bicarbonate drip, BUN 17, creatinine 1.32. His albumin is 2.4. Zhang virus PCR is negative. Urine analysis positive for moderate leukocyte esterase and 30 WBCs. He had a chest x-ray showing moderate bilateral pleural effusions. He had an EKG showing a atrial fibrillation with rapid ventricular rate. So the patient is admitted for further treatment and management. Review of Systems REVIEW OF SYSTEMS: CONSTITUTIONAL: As per HPI HEENT: No recent visual problems or hearing problems. Denied any sore throat. CARDIOVASCULAR: No orthopnea, PND, no palpitations, no syncope. PULMONARY: As per HPI GASTROINTESTINAL: No diarrhea, no nausea, no vomiting, no abdominal pain. NEUROLOGICAL: No headaches, no weakness, no numbness. HEMATOLOGICAL: Denies any bleeding or petechiae. GENITOURINARY: Denies any burning micturition, frequency, or urgency. MUSCULOSKELETAL/RHEUMATOLOGICAL: Left leg pain ENDOCRINE: Denies any polyuria or polydipsia. The rest of the 14-point review of systems is negative. Past Medical History Past Medical History: Atrial Fibrillation, Coronary Artery Disease (CAD), COPD, Hypertension Additional Past Medical History / Comment(s): Coronary artery disease, peripheral vascular disease, depression, paroxysmal atrial fibrillation, COPD, generalized chronic pain, history of multiple skeletal fractures including cervical fracture, history of complicated diverticulitis with bowel resection and colostomy and Karen pouch, history of bladder injury during surgery that required surgical repair, history of Raynaud's disease, Last Myocardial Infarction Date:: [facility] History of Any Multi-Drug Resistant Organisms: MRSA Date of last positivie culture/infection: 04/06/17 MRSA Confirmed at [facility] MDRO Source:: Abdomen Past Surgical History: Bowel Resection, Heart Catheterization With Stent Additional Past Surgical History / Comment(s): 11/2017 PCI with stent at [facility], colonoscopies, bowel resection with ileostomy, cystoscopy for bladder repair, abdominal abscess with surgical intervention, R inguinal hernia repair with mesh, R knee arthroscopy, toe amputation, colostomy Past Anesthesia/Blood Transfusion Reactions: No Reported Reaction Date of Last Stent Placement:: 12/06/17 Past Psychological History: Depression Smoking Status: Former smoker Past Alcohol Use History: Daily Past Drug Use History: Prescription Drug Abuse - Past Family History Father Family Medical History: Myocardial Infarction ([place]) Additional Family Medical History / Comment(s): Father had 3 MIs, he had his first one at the age of 50 yrs. He at the age of 85 yrs. Mother Family Medical History: No Reported History Additional Family Medical History / Comment(s): Mother was healthy and lived to be 94 or 95 yrs old. Medications and Allergies Home Medications Medication Instructions Recorded Confirmed Type Acetaminophen [Tylenol] 650 mg PO Q4H PRN 01/13/21 01/13/21 History Artificial Tears-Hypromellose 1 drop RIGHT EYE Q6H PRN 01/13/21 01/13/21 History [Artificial Tear Drops] Aspirin EC [Ecotrin Low Dose] 81 mg PO DAILY 01/13/21 01/13/21 History Clopidogrel [Plavix] 75 mg PO DAILY 01/13/21 01/13/21 History Diltiazem HCl [Cardizem LA] 180 mg PO DAILY 01/13/21 01/13/21 History Docusate [Colace] 100 mg PO DAILY 01/13/21 01/13/21 History Fluticasone/Vilanterol [Breo 1 puff INHALATION RT-DAILY 01/13/21 01/13/21 History Ellipta 100-25 Mcg Inhaler] Gabapentin 300 mg PO Q8H 01/13/21 01/13/21 History Heparin Sodium,Porcine [Heparin 5,000 unit SQ Q8HR 01/13/21 01/13/21 History Sodium] Lidocaine 4% Patch 1 patch TRANSDERM DAILY 01/13/21 01/13/21 History Metoprolol Tartrate [Lopressor] 100 mg PO Q8H 01/13/21 01/13/21 History Morphine Sulfate Ir [MSIR] 30 mg PO Q6HR 01/13/21 01/13/21 History Multivitamins, Thera [Multivitamin 1 tab PO DAILY 01/13/21 01/13/21 History (formulary)] Omeprazole 20 mg PO DAILY 01/13/21 01/13/21 History Tamsulosin HCl [Flomax] 0.4 mg PO DAILY 01/13/21 01/13/21 History Allergies Allergy/AdvReac Type Severity Reaction Status Date / Time No Known Allergies Allergy Verified 01/13/21 08:52 Physical Exam Vitals: Vital Signs Temp Pulse Pulse Resp BP Pulse Ox 01/13/21 11:21 97.9 F 124 H 18 115/76 96 01/13/21 09:40 104 H 18 108/67 98 01/13/21 08:00 100.2 F H 141 H 18 131/84 92 L 01/13/21 06:44 100.3 F H 112 H 16 110/63 94 L 01/13/21 06:20 118 H 01/13/21 05:40 100.0 F H 129 H 18 140/79 94 L Intake and Output 01/12/21 01/13/21 01/13/21 23:59 06:59 14:59 Other: Weight PHYSICAL EXAMINATION: GENERAL: The patient is alert and oriented x2, cachectic HEENT: Pupils are round and equally reacting to light. EOMI. No scleral icterus. No conjunctival pallor. Normocephalic, atraumatic. No pharyngeal erythema. No thyromegaly. CARDIOVASCULAR: Irregularly irregular PULMONARY: Breath sounds positive bilaterally. Crackles at the lower lung bases. ABDOMEN: Soft, nontender, Malcolm's pouch in place. Sacral decubitus ulcer. MUSCULOSKELETAL: Left distal foot amputation. EXTREMITIES: Significant discoloration of the distal end of the foot that is amputated. There is surrounding redness, and hyperpigmentation. NEUROLOGICAL: Gross neurological examination did not reveal any focal deficits. SKIN: Sacral decubitus ulcer. Results CBC & Chem 7: 01/24/21 11:05 01/24/21 05:08 Labs: Abnormal Lab Results - Last 24 Hours (Table) 01/13/21 01/13/21 Range/Units 06:19 06:19 WBC 12.3 H (3.8-10.6) k/uL RBC 2.85 L (4.30-5.90) m/uL Hgb 8.9 L (13.0-17.5) gm/dL Hct 28.0 L (39.0-53.0) % Neutrophils # 10.1 H (1.3-7.7) k/uL Lymphocytes # 0.7 L (1.0-4.8) k/uL Monocytes # 1.3 H (0-1.0) k/uL Sodium 132 L (137-145) mmol/L Carbon Dioxide 21 L (22-30) mmol/L Creatinine 1.32 H (0.66-1.25) mg/dL Calcium 8.1 L (8.4-10.2) mg/dL Total Protein 5.6 L (6.3-8.2) g/dL Albumin 2.4 L (3.5-5.0) g/dL Assessment and Plan Assessment: ASSESSMENT Sepsis- likely source of infection would be the left leg vs UTI vs PNA Atrial fibrillation with rapid ventricular rate Status post left distal foot amputation done 3 weeks back Status post left femoral bypass surgery done 3 weeks back Coronary artery disease Chronic anemia Acute kidney injury COPD Severe peripheral vascular disease Hypertension Chronic debility Severe protein calorie malnutrition Sacral decubitus ulcer History of nicotine dependence GI DVT prophylaxis PLAN: Patient received a dose of ceftriaxone in the ED with pending blood cultur es and urine cultures. The source of his infection could be his left leg versus UTI versus pneumonia. Patient is started on Cardizem drip and heparin drip for A. fib with RVR. Consult and cardiology, ID and vascular surgery. Overall prognosis is poor due to multiple chronic medical conditions. Further recommendations depending on the progress of the patient.
[2021-01-13] MEDS ORDERED: VANCOMYCIN IV PER PHARMACY 1 EACH MISC MISCELLANE PRN (21:55)
--- NOTE | 2021-01-13 21:59 | P.CONS ---
History of Present Illness - Reason for Consult Consult date: 01/13/21 left foot wound/cellulitis Requesting physician: Iris Call - Chief Complaint left foot discoloration and pain x few days - History of Present Illness History of present illness : Patient is 65-year-old male with a past medical history sniffing for atrial fibrillation coronary disease peripheral vascular disease history of complicated diverticulitis in this patient who is status post left foot transmetatarsal amputation done at [facility] on 3 weeks of back and also have a femoral bypass surgery done at that time patient was subsequently stabilized and discharged to [facility] over the last few days the patient complaining of increasing shortness of breath and the patient was noticed to have discoloration of his left foot transmetatarsal amputation site incision patient denies having any headache no chest pain or shortness of breath he did have a cough nonproductive sputum has been complaining of pain to the left foot anymore currently controlled elevated good historian no and no significant drainage on presentation to the hospital but did have a fever of 100.3 F patient was tachycardic he did have a white count of 12.3 with a left shift kidney function mildly limited with a creatinine of 1.3-0 below normal urine mildly positive for leukocyte was negative patient did have a chest x-ray moderate bilateral pleural effusion patient has been given a dose of Rocephin in the ER has been admitted to hospital infectious disease was consulted for the left foot wound and antibiotic therapy Review of system: CONSTITUTIONAL: Positive for weakness along with the fever. EYES: No complaint. ENT: No complaint. RESPIRATORY: As per history of present illness. CARDIOVASCULAR: No complaint. GENITOURINARY: No complaint. GASTROINTESTINAL: No complaint. MUSCULOSKELETAL: As per history of present illness. INTEGUMENTARY: No complaint. PSYCHOLOGIC: No complaint. ENDOCRINE: No complaint. NEUROLOGIC: No complaint. Past medical history : Reviewed, documented below Past surgical history : Reviewed, documented below Social history: Reviewed, documented below Medications: Reviewed, as documented below EXAMINATION: Vital sigans= Reviewed and documented below GENERAL DESCRIPTION: Elderly male lying in bed, no distress. No tachypnea or accessory muscle of respiration use. HEENT: Shows Pallor , no scleral icterus. Oral mucous membrane is dry. NECK: Trachea central, no thyromegaly. LUNGS: Unlabored breathing. Decreased breath sound at the base. No wheeze or crackle. HEART: S1, S2, regular rate and rhythm. ABDOMEN: Soft, no tenderness , guarding or rigidity EXTREMITIES: Left foot transmetatarsal amputation site He did have a necrotic changes with minimal erythema left medial leg surgical site from the back to surgery has nolberto intact but no significant redness. SKIN: No rash, no masses palpable. NEUROLOGICAL: The patient is awake, alert, oriented x2, mood and affect normal. LABS AND RADIOLOGY: Reviewed results see below Assessment : Patient is a 65-year male with a past medical history sniffing for peripheral arterial disease in this patient status post left leg bypass surgery and left transmetatarsal amputation presented to hospital with a fever elevated white count with evidence of necrotic changes to his left foot transmetatarsal amputation site clinic suspicious for graft failure and persistent ischemia plus minus cellulitis in view of the recent hospitalization will need to cover for the resistant gram-positive as well as gram-negative Plan: 1-vancomycin pharmacy to dose with a target trough of 15 while watching kidney function and Vanco trough closely. 2-cefepime 2 g every 8 hours 3-await his consult evaluation for possible further work-up. Or transfer to [facility] having the surgery was done we will follow on clinical condition and cultures to further adjust medication if needed Thank you for this consultation we will follow the patient along with you Past Medical History Past Medical History: Atrial Fibrillation, Coronary Artery Disease (CAD), COPD, Hypertension Additional Past Medical History / Comment(s): Coronary artery disease, peripheral vascular disease, depression, paroxysmal atrial fibrillation, COPD, generalized chronic pain, history of multiple skeletal fractures including cer vical fracture, history of complicated diverticulitis with bowel resection and colostomy and Karen pouch, history of bladder injury during surgery that required surgical repair, history of Raynaud's disease, Last Myocardial Infarction Date:: [facility] History of Any Multi-Drug Resistant Organisms: MRSA Year Discovered:: 04/06/17 MRSA Confirmed at [facility] MDRO Source:: Abdomen Past Surgical History: Bowel Resection, Heart Catheterization With Stent Additional Past Surgical History / Comment(s): 11/2017 PCI with stent at [facility], colonoscopies, bowel resection with ileostomy, cystoscopy for bladder repair, abdominal abscess with surgical intervention, R inguinal hernia repair with mesh, R knee arthroscopy, toe amputation, colostomy Past Anesthesia/Blood Transfusion Reactions: No Reported Reaction Date of Last Stent Placement:: 12/06/17 Past Psychological History: Depression Smoking Status: Former smoker Past Alcohol Use History: Daily Past Drug Use History: Prescription Drug Abuse - Past Family History Father Family Medical History: Myocardial Infarction ([place]) Additional Family Medical History / Comment(s): Father had 3 MIs, he had his first one at the age of 50 yrs. He at the age of 85 yrs. Mother Family Medical History: No Reported History Additional Family Medical History / Comment(s): Mother was healthy and lived to be 94 or 95 yrs old. Medications and Allergies Home Medications Medication Instructions Recorded Confirmed Type Acetaminophen [Tylenol] 650 mg PO Q4H PRN 01/13/21 01/13/21 History Artificial Tears-Hypromellose 1 drop RIGHT EYE Q6H PRN 01/13/21 01/13/21 History [Artificial Tear Drops] Aspirin EC [Ecotrin Low Dose] 81 mg PO DAILY 01/13/21 01/13/21 History Clopidogrel [Plavix] 75 mg PO DAILY 01/13/21 01/13/21 History Diltiazem HCl [Cardizem LA] 180 mg PO DAILY 01/13/21 01/13/21 History Docusate [Colace] 100 mg PO DAILY 01/13/21 01/13/21 History Fluticasone/Vilanterol [Breo 1 puff INHALATION RT-DAILY 01/13/21 01/13/21 History Ellipta 100-25 Mcg Inhaler] Gabapentin 300 mg PO Q8H 01/13/21 01/13/21 History Heparin Sodium,Porcine [Heparin 5,000 unit SQ Q8HR 01/13/21 01/13/21 History Sodium] Lidocaine 4% Patch 1 patch TRANSDERM DAILY 01/13/21 01/13/21 History Metoprolol Tartrate [Lopressor] 100 mg PO Q8H 01/13/21 01/13/21 History Morphine Sulfate Ir [MSIR] 30 mg PO Q6HR 01/13/21 01/13/21 History Multivitamins, Thera [Multivitamin 1 tab PO DAILY 01/13/21 01/13/21 History (formulary)] Omeprazole 20 mg PO DAILY 01/13/21 01/13/21 History Tamsulosin HCl [Flomax] 0.4 mg PO DAILY 01/13/21 01/13/21 History Allergies Allergy/AdvReac Type Severity Reaction Status Date / Time No Known Allergies Allergy Verified 01/13/21 08:52 Physical Exam Vitals: Vital Signs Temp Pulse Pulse Resp BP Pulse Ox 01/13/21 20:54 91 18 115/69 95 01/13/21 17:00 109 H 16 135/82 97 01/13/21 14:32 98.4 F 124 H 16 136/87 92 L 01/13/21 11:21 97.9 F 124 H 18 115/76 96 01/13/21 09:40 104 H 18 108/67 98 01/13/21 08:00 100.2 F H 141 H 18 131/84 92 L 01/13/21 06:44 100.3 F H 112 H 16 110/63 94 L 01/13/21 06:20 118 H 01/13/21 05:40 100.0 F H 129 H 18 140/79 94 L Intake and Output 01/13/21 01/13/21 01/13/21 06:59 14:59 22:59 Other: Weight Results CBC & Chem 7: 01/13/21 06:19 01/13/21 06:19 Labs: Abnormal Lab Results - Last 24 Hours (Table) 01/13/21 01/13/21 01/13/21 Range/Units 06:19 06:19 15:47 WBC 12.3 H (3.8-10.6) k/uL RBC 2.85 L (4.30-5.90) m/uL Hgb 8.9 L (13.0-17.5) gm/dL Hct 28.0 L (39.0-53.0) % Neutrophils # 10.1 H (1.3-7.7) k/uL Lymphocytes # 0.7 L (1.0-4.8) k/uL Monocytes # 1.3 H (0-1.0) k/uL Sodium 132 L (137-145) mmol/L Carbon Dioxide 21 L (22-30) mmol/L Creatinine 1.32 H (0.66-1.25) mg/dL Calcium 8.1 L (8.4-10.2) mg/dL Total Protein 5.6 L (6.3-8.2) g/dL Albumin 2.4 L (3.5-5.0) g/dL Ur Leukocyte Esterase Moderate H (Negative) Urine WBC 30 H (0-5) /hpf
[2021-01-13] MEDS ORDERED: VANCOMYCIN 1,250 MG in SODIUM CHLORIDE 0.9% 250 ML IVPB ONE (22:15)
[2021-01-14] MEDS ORDERED: CEFEPIME 2 GM in SODIUM CHLORIDE 0.9% 100 ML IVPB SCH ×2
[2021-01-14] MEDS: METOPROLOL TARTRATE 50 MG TAB PO SCH ×4 (00:12→23:22)
[2021-01-14] MEDS: GABAPENTIN 300 MG CAP PO SCH ×4 (00:12→23:22)
[2021-01-14] MEDS: MORPHINE SULFATE IR 15 MG TABLET PO SCH ×5 (00:13→23:22)
[2021-01-14] MEDS: DILTIAZEM 125 MG in SODIUM CHLORIDE 0.9% 100 ML IV SCH (02:38)
[2021-01-14 02:53] LABS: Basophils % (A) 0 %; Eosinophils # (A) 0.3 k/uL (0-0.7); Eosinophils % (A) 3 %; HCT 29.7 % (39.0-53.0); HGB 9.4 gm/dL (13.0-17.5); Lymphocytes % (A) 10 %; MCH 30.8 pg (25.0-35.0); MCHC 31.5 g/dL (31.0-37.0); MCV 97.7 fL (80.0-100.0); Mean Platelet Volume 7.5; Monocytes # (A) 0.9 k/uL (0-1.0); Monocytes % (A) 9 %; Neutrophils # (A) 7.6 k/uL (1.3-7.7); Neutrophils % (A) 77 %; Platelet Count 526 k/uL (150-450); RBC 3.04 m/uL (4.30-5.90); RDW 15.1 % (11.5-15.5); WBC 9.8 k/uL (3.8-10.6)
[2021-01-14 02:57] LABS: Albumin 2.5 g/dL (3.5-5.0); Calcium 8.2 mg/dL (8.4-10.2); Potassium 3.5 mmol/L (3.5-5.1); Total Bilirubin 0.2 mg/dL (0.2-1.3); Total Protein 5.8 g/dL (6.3-8.2)
[2021-01-14] MEDS: TAMSULOSIN 0.4 MG CAP.ER.24H PO SCH (06:18)
[2021-01-14] MEDS: PANTOPRAZOLE 40 MG TABLET PO SCH (06:23)
[2021-01-14] MEDS: CLOPIDOGREL 75 MG TAB PO SCH (08:06)
[2021-01-14] MEDS: FUROSEMIDE 10 MG/ML 4 ML VIAL IV SCH ×2 (08:06→21:50)
[2021-01-14] MEDS ORDERED: DILTIAZEM CD 180 MG CAP.ER.24H PO SCH (09:00)
[2021-01-14] MEDS ORDERED: ASPIRIN 325 MG TAB PO SCH (09:00)
[2021-01-14] MEDS ORDERED: AMIODARONE 360 MG in DEXTROSE 5% IN WATER 200 ML IV ONE ×2 (09:01)
[2021-01-14] MEDS ORDERED: DEXTROSE 5% IN WATER 100 ML with AMIODARONE 150 MG IV ONE (09:01)
--- NOTE | 2021-01-14 12:40 | ECHOF ---
Referral Reason:LV function, afib MEASUREMENTS -------- HEIGHT: 162.6 cm WEIGHT: 57.6 kg BP: RVIDd: 3.8 cm (< 3.3) IVSd: 0.9 cm (0.6 - 1.1) LVIDd: 4.7 cm (3.9 - 5.3) LVPWd: 1.6 cm (0.6 - 1.1) IVSs: 1.4 cm LVIDs: 3.6 cm LVPWs: 1.5 cm Ao Diam: 2.9 cm (2.0 - 3.7) MV E Otoniel: 0.37 m/s MV DecT: 197 ms MV A Otoniel: 0.62 m/s MV E/A Ratio: 0.60 RAP: 5.00 mmHg RVSP: 21.10 mmHg FINDINGS -------- Atrial fibrillation. This was a technically adequate study. The left ventricular size is normal. Left ventricular wall thickness is normal. Overall left vent ricular systolic function is mild-moderately impaired with, an EF between 40 - 45 %. The right ventricle is mild to moderately enlarged. The left atrial size is normal. The right atrial size is normal. There is mild aortic valve sclerosis. There is no evidence of aortic regurgitation. Mild mitral annular calcification present. Mild mitral regurgitation is present. The tricuspid valve appears structurally normal. Mild tricuspid regurgitation present. Right vent ricular systolic pressure is normal at < 35 mmHg. Trace/mild (physiologic) pulmonic regurgitation. The aortic root size is normal. Echo free space represents a pericardial fat pad. CONCLUSIONS -------- 1. Atrial fibrillation. 2. Overall left ventricular systolic function is mild-moderately impaired with, an EF between 40 - 45 %. 3. The right ventricle is mild to moderately enlarged. 4. The left atrial size is normal. 5. There is mild aortic valve sclerosis. 6. Mild mitral annular calcification present. 7. Mild mitral regurgitation is present. 8. Mild tricuspid regurgitation present. 9. Trace/mild (physiologic) pulmonic regurgitation. 10. Echo free space represents a pericardial fat pad. BLOOD BANK LABORATORY PROFESSIONAL: Kiarra Jeter RDCS
--- NOTE | 2021-01-14 13:34 | P.CRDCN ---
History of Present Illness Consult date: 01/14/21 History of present illness: HISTORY OF PRESENT ILLNESS: This is a 65-year-old male with a past medical history significant for paroxysmal atrial fibrillation not on anticoagulation secondary to GI bleed, coronary artery disease with previous stenting to the RCA in 2018, nicotine dependence, and recent vascular surgery to left lower extremity. Patient does not follow with a neon technician. We have been asked to see the patient in consultation for afib and CHF. Patient examined at the bedside. Patient presented from [facility] due to chest pain. He states he recently underwent surgery to his left lower extremity at [facility] a few weeks ago. At the time of examination, the patient denies chest pain or pressure. He is in afib with uncontrolled ventricular rates. He is currently on a Cardizem drip and a heparin drip. BNP elevated over 12,000. He was started on IV lasix. He currently denies SOB. Chest XR revealed moderate bilateral pleural effusions. echocardiogram completed revealing ejection fraction 40-45%. Mild mitral regurg itation. Mild tricuspid regurgitation. REVIEW OF SYSTEMS: At the time of my exam: CONSTITUTIONAL: Denies fever or chills. HEENT: Denies blurred vision, vision changes, or eye pain. Denies hemoptysis CARDIOVASCULAR: Denies chest pain. Denies orthopnea. Denies PND. Denies palpitations RESPIRATORY: Denies shortness of breath. GASTROINTESTINAL: Denies abdominal pain. Denies nausea or vomiting. HEMATOLOGIC: Denies bleeding disorders. GENITOURINARY: Denies any blood in urine. SKIN: Denies pruitis. Denies rash. PHYSICAL EXAM: VITAL SIGNS: Reviewed. GENERAL: Well-developed in no acute distress. HEENT: Head is normocephalic. Pupils are equal, round. Sclerae anicteric. Mucous membranes of the mouth are moist. Neck supple. No JVD or thyromegaly LUNGS: Respirations even and unlabored. Lungs essentially clear to auscultation bilaterally. HEART: tachycardic. Irregular rate and rhythm. S1 and S2 heard. ABDOMEN: Soft. Nondistended. Nontender. EXTREMITIES: Left toe amputations noted. Patient with necrotic tissue to LILLIAN. No clubbing or cyanosis. Peripheral pulses intact. No lower extremity edema NEUROLOGIC: Awake and alert. Oriented x 3. ASSESSMENT: Chest pain, troponin negative x 3 Acute diastolic congestive heart failure Paroxysmal atrial fibrillation not on anticoagulation secondary to GI bleed Coronary artery disease with previous stenting to the RCA in 2018 Recent surgery to left lower extremity Nicotine dependence PLAN: Continue IV heparin. patient is apparently not a candidate for long-term anticoagulation due to history of GI bleeding Continue IV Cardizem Begin amiodarone bolus and infusion per protocol Continue metoprolol Continue telemetry monitoring Continue IV Lasix Further recommendations pending patient's course Nurse practitioner note has been reviewed by physician. Signing provider agrees with the documented findings, assessment, and plan of care. Past Medical History Past Medical History: Atrial Fibrillation, Coronary Artery Disease (CAD), COPD, Hypertension Additional Past Medical History / Comment(s): Coronary artery disease, peripheral vascular disease, depression, paroxysmal atrial fibrillation, COPD, generalized chronic pain, history of multiple skeletal fractures including cervical fracture, history of complicated diverticulitis with bowel resection and colostomy and Karen pouch, history of bladder injury during surgery that required surgical repair, history of Raynaud's disease, Last Myocardial Infarction Date:: [facility] History of Any Multi-Drug Resistant Organisms: MRSA Date of last positivie culture/infection: 04/06/17 MRSA Confirmed at [facility] MDRO Source:: Abdomen Past Surgical History: Bowel Resection, Heart Catheterization With Stent Additional Past Surgical History / Comment(s): 11/2017 PCI with stent at [facility], colonoscopies, bowel resection with ileostomy, cystoscopy for bladder repair, abdominal abscess with surgical intervention, R inguinal hernia repair with mesh, R knee arthroscopy, toe amputation, colostomy Past Anesthesia/Blood Transfusion Reactions: No Reported Reaction Date of Last Stent Placement:: 12/06/17 Past Psychological History: Depression Smoking Status: Former smoker Past Alcohol Use History: Daily Past Drug Use History: Prescription Drug Abuse - Past Family History Father Family Medical History: Myocardial Infarction ([place]) Additional Family Medical History / Comment(s): Father had 3 MIs, he had his first one at the age of 50 yrs. He at the age of 85 yrs. Mother Family Medical History: No Reported History Additional Family Medical History / Comment(s): Mother was healthy and lived to be 94 or 95 yrs old. Medications and Allergies Home Medications Medication Instructions Recorded Confirmed Type Acetaminophen [Tylenol] 650 mg PO Q4H PRN 01/13/21 01/13/21 History Artificial Tears-Hypromellose 1 drop RIGHT EYE Q6H PRN 01/13/21 01/13/21 History [Artificial Tear Drops] Aspirin EC [Ecotrin Low Dose] 81 mg PO DAILY 01/13/21 01/13/21 History Clopidogrel [Plavix] 75 mg PO DAILY 01/13/21 01/13/21 History Diltiazem HCl [Cardizem LA] 180 mg PO DAILY 01/13/21 01/13/21 History Docusate [Colace] 100 mg PO DAILY 01/13/21 01/13/21 History Fluticasone/Vilanterol [Breo 1 puff INHALATION RT-DAILY 01/13/21 01/13/21 History Ellipta 100-25 Mcg Inhaler] Gabapentin 300 mg PO Q8H 01/13/21 01/13/21 History Heparin Sodium,Porcine [Heparin 5,000 unit SQ Q8HR 01/13/21 01/13/21 History Sodium] Lidocaine 4% Patch 1 patch TRANSDERM DAILY 01/13/21 01/13/21 History Metoprolol Tartrate [Lopressor] 100 mg PO Q8H 01/13/21 01/13/21 History Morphine Sulfate Ir [MSIR] 30 mg PO Q6HR 01/13/21 01/13/21 History Multivitamins, Thera [Multivitamin 1 tab PO DAILY 01/13/21 01/13/21 History (formulary)] Omeprazole 20 mg PO DAILY 01/13/21 01/13/21 History Tamsulosin HCl [Flomax] 0.4 mg PO DAILY 01/13/21 01/13/21 History Allergies Allergy/AdvReac Type Severity Reaction Status Date / Time No Known Allergies Allergy Verified 01/13/21 08:52 Physical Exam Vitals: Vital Signs Temp Pulse Resp BP Pulse Ox 01/14/21 06:12 87 18 115/88 97 01/14/21 02:34 76 20 106/58 97 01/14/21 00:08 98.5 F 110 H 16 113/67 97 01/13/21 20:54 99.0 F 91 18 115/69 95 01/13/21 17:00 109 H 16 135/82 97 01/13/21 14:32 98.4 F 124 H 16 136/87 92 L 01/13/21 11:21 97.9 F 124 H 18 115/76 96 01/13/21 09:40 104 H 18 108/67 98 Intake and Output 01/13/21 01/14/21 01/14/21 22:59 06:59 14:59 Intake Total 1350.053 Output Total 1700 Balance -349.947 Intake: Intake, IV Titration 570.053 Amount Cefepime 2 gm In Sodium 100 Chloride 0.9% 100 ml @ 25 mls/hr IVPB Q12H [facility] Rx# :[id number] Diltiazem 125 mg In 91.917 Sodium Chloride 0.9% 100 ml @ 5 MG/HR 5 mls/hr IV .Q24H [facility] Rx#:[id number] Heparin Sod,Pork in 0.45% 128.136 NaCl 25,000 unit In 0.45 % NaCl 1 250ml.bag @ 12 UNITS/KG/HR 7.457 mls/hr IV .Q24H [facility] Rx#: [id number] Vancomycin 1,250 mg In 250 Sodium Chloride 0.9% 250 ml @ 125 mls/hr IVPB Q24H [facility] Rx#:[id number] Oral 780 Output: Urine 1700 Other: # Voids 3 Results 01/14/21 02:17 01/14/21 02:17 Cardiac Enzymes 01/13/21 01/13/21 01/14/21 Range/Units 12:34 16:13 02:17 AST 26 (17-59) U/L Troponin I 0.018 0.018 (0.000-0.034) ng/mL Coagulation 01/13/21 01/14/21 Range/Units 16:14 02:17 APTT 28.4 39.3 H (22.0-30.0) sec CBC 01/14/21 Range/Units 02:17 WBC 9.8 (3.8-10.6) k/uL RBC 3.04 L (4.30-5.90) m/uL Hgb 9.4 L (13.0-17.5) gm/dL Hct 29.7 L (39.0-53.0) % Plt Count 526 H (150-450) k/uL Comprehensive Metabolic Panel 01/14/21 Range/Units 02:17 Sodium 131 L (137-145) mmol/L Potassium 3.5 (3.5-5.1) mmol/L Chloride 101 (98-107) mmol/L Carbon Dioxide 23 (22-30) mmol/L BUN 16 (9-20) mg/dL Creatinine 1.26 H (0.66-1.25) mg/dL Glucose 95 (74-99) mg/dL Calcium 8.2 L (8.4-10.2) mg/dL AST 26 (17-59) U/L ALT 16 (4-49) U/L Alkaline Phosphatase 66 (38-126) U/L Total Protein 5.8 L (6.3-8.2) g/dL Albumin 2.5 L (3.5-5.0) g/dL Current Medications Generic Name Dose Route Start Last Admin Trade Name Freq PRN Reason Stop Dose Admin Acetaminophen 650 mg 01/13/21 10:44 Acetaminophen Tab 325 Mg Tab PO Q4H PRN Pain or Fever > 100.5 Artificial Tears 1 drops 01/13/21 12:38 Artificial Tears-Hypromellose Drops 15 Ml Btl RIGHT EYE Q6H PRN DRY EYES Aspirin 325 mg 01/14/21 09:00 Aspirin 325 Mg Tab PO DAILY [facility] Aspirin 81 mg 01/14/21 09:00 Aspirin 81 Mg PO DAILY [facility] Budesonide/Formoterol Fumarate 2 puff 01/14/21 08:00 Symbicort 80-4.5 Mcg Inhaler INHALATION RT-BID [facility] Clopidogrel Bisulfate 75 mg 01/14/21 09:00 01/14/21 08:06 Clopidogrel 75 Mg Tab PO 75 mg DAILY [facility] Administration Diltiazem HCl 180 mg 01/14/21 09:00 Diltiazem Cd 180 Mg Cap.Er.24h PO DAILY [facility] Docusate Sodium 100 mg 01/14/21 09:00 Docusate 100 Mg Cap PO DAILY [facility] Furosemide 40 mg 01/13/21 09:00 01/14/21 08:06 Furosemide 10 Mg/Ml 4 Ml Vial IV 40 mg Q12H [facility] Administration Gabapentin 300 mg 01/13/21 11:00 01/14/21 08:06 Gabapentin 300 Mg Cap PO 300 mg Q8HR [facility] Administration Diltiazem HCl 125 mg/ Sodium 125 mls @ 5 mls/hr 01/13/21 08:00 01/14/21 02:38 Chloride IV 5 mg/hr .Q24H [facility] 5 mls/hr Administration 5 MG/HR Heparin Sodium/Sodium Chloride 250 mls @ 7.457 mls/hr 01/13/21 09:00 01/14/21 03:20 25,000 unit/ Sodium Chloride IV 14 units/kg/hr .Q24H [facility] 8.7 mls/hr Titration Protocol 12 UNITS/KG/HR Vancomycin HCl 1,250 mg/ 250 mls @ 125 mls/hr 01/14/21 23:00 Sodium Chloride IVPB Q24H [facility] Cefepime HCl 2 gm/ Sodium 100 mls @ 25 mls/hr 01/14/21 14:00 Chloride IVPB Q12H [facility] Metoprolol Tartrate 100 mg 01/13/21 11:00 01/14/21 08:06 Metoprolol Tartrate 50 Mg Tab PO 100 mg Q8HR [facility] Administration Morphine Sulfate 30 mg 01/13/21 12:00 01/14/21 06:20 Morphine Sulfate Ir 15 Mg Tablet PO 30 mg Q6HR [facility] Administration Pantoprazole Sodium 40 mg 01/14/21 07:30 01/14/21 06:23 Pantoprazole 40 Mg Tablet PO 40 mg [id number] [facility] Administration Tamsulosin HCl 0.4 mg 01/14/21 09:00 01/14/21 06:18 Tamsulosin 0.4 Mg Cap.Er.24h PO 0.4 mg DAILY [facility] Administration Intake and Output 01/13/21 01/14/21 01/14/21 22:59 06:59 14:59 Intake Total 1350.053 Output Total 1700 Balance -349.947 Intake: Intake, IV Titration 570.053 Amount Cefepime 2 gm In Sodium 100 Chloride 0.9% 100 ml @ 25 mls/hr IVPB Q12H [facility] Rx# :[id number] Diltiazem 125 mg In 91.917 Sodium Chloride 0.9% 100 ml @ 5 MG/HR 5 mls/hr IV .Q24H [facility] Rx#:[id number] Heparin Sod,Pork in 0.45% 128.136 NaCl 25,000 unit In 0.45 % NaCl 1 250ml.bag @ 12 UNITS/KG/HR 7.457 mls/hr IV .Q24H [facility] Rx#: [id number] Vancomycin 1,250 mg In 250 Sodium Chloride 0.9% 250 ml @ 125 mls/hr IVPB Q24H [facility] Rx#:[id number] Oral 780 Output: Urine 1700 Other: # Voids 3 01/14/21 02:17 01/14/21 02:17
--- NOTE | 2021-01-14 13:44 | P.GSCN ---
History of Present Illness Consult date: 01/14/21 Reason for Consult: ischemic foot Requesting physician: Iris Call History of present illness: This is a 65-year-old male who presented to the emergency department from [facility] with complaints of shortness of breath and fever. Patient states overall last few days he wasn't feeling well. He recently had a left transmetatarsal amputation along with revascularization he believes 2-3 weeks ago. Patient is unsure exactly what he had done and who did it other than it was done at [facility]. Looks to appear patient may have had a femoral to tibial bypass on left lower extremity. Vascular surgery was consulted related to left lower extremity pain and fever. Patient states he's not had any follow-up with the vascular surgeon as he states he lacks transportation. He has a history of tobacco abuse and smokes 2 packs of cigarettes a day, has a history of atrial fibrillation on Eliquis, COPD, hypertension, coronary artery disease, history of diverticulitis with bowel resection and colostomy. He had a max temperature of 100.3 on admission. He denies any drainage or foul odor from his TMA site. He currently denies any fever chills, shortness of breath or chest pain. Chest x-ray showed moderate bilateral pleural effusions. Review of Systems A 14 point review systems was completed all pertinent positives and negatives as stated in the HPI. Past Medical History Past Medical History: Atrial Fibrillation, Coronary Artery Disease (CAD), COPD, Hypertension Additional Past Medical History / Comment(s): Coronary artery disease, peripheral vascular disease, depression, paroxysmal atrial fibrillation, COPD, generalized chronic pain, history of multiple skeletal fractures including cervical fracture, history of complicated diverticulitis with bowel resection and colostomy and Karen pouch, history of bladder injury during surgery that required surgical repair, history of Raynaud's disease, Last Myocardial Infarction Date:: uknown History of Any Multi-Drug Resistant Organisms: MRSA Year Discovered:: 04/06/17 MRSA Confirmed at [facility] MDRO Source:: Abdomen Past Surgical History: Bowel Resection, Heart Catheterization With Stent Additional Past Surgical History / Comment(s): 11/2017 PCI with stent at [facility], colonoscopies, bowel resection with ileostomy, cystoscopy for bladder repair, abdominal abscess with surgical intervention, R inguinal hernia repair with mesh, R knee arthroscopy, toe amputation, colostomy Past Anesthesia/Blood Transfusion Reactions: No Reported Reaction Date of Last Stent Placement:: 12/06/17 Past Psychological History: Depression Smoking Status: Former smoker Past Alcohol Use History: Daily Past Drug Use History: Prescription Drug Abuse - Past Family History Father Family Medical History: Myocardial Infarction ([place]) Additional Family Medical History / Comment(s): Father had 3 MIs, he had his first one at the age of 50 yrs. He at the age of 85 yrs. Mother Family Medical History: No Reported History Additional Family Medical History / Comment(s): Mother was healthy and lived to be 94 or 95 yrs old. Medications and Allergies Home Medications Medication Instructions Recorded Confirmed Type Acetaminophen [Tylenol] 650 mg PO Q4H PRN 01/13/21 01/13/21 History Artificial Tears-Hypromellose 1 drop RIGHT EYE Q6H PRN 01/13/21 01/13/21 History [Artificial Tear Drops] Aspirin EC [Ecotrin Low Dose] 81 mg PO DAILY 01/13/21 01/13/21 History Clopidogrel [Plavix] 75 mg PO DAILY 01/13/21 01/13/21 History Diltiazem HCl [Cardizem LA] 180 mg PO DAILY 01/13/21 01/13/21 History Docusate [Colace] 100 mg PO DAILY 01/13/21 01/13/21 History Fluticasone/Vilanterol [Breo 1 puff INHALATION RT-DAILY 01/13/21 01/13/21 History Ellipta 100-25 Mcg Inhaler] Gabapentin 300 mg PO Q8H 01/13/21 01/13/21 History Heparin Sodium,Porcine [Heparin 5,000 unit SQ Q8HR 01/13/21 01/13/21 History Sodium] Lidocaine 4% Patch 1 patch TRANSDERM DAILY 01/13/21 01/13/21 History Metoprolol Tartrate [Lopressor] 100 mg PO Q8H 01/13/21 01/13/21 History Morphine Sulfate Ir [MSIR] 30 mg PO Q6HR 01/13/21 01/13/21 History Multivitamins, Thera [Multivitamin 1 tab PO DAILY 01/13/21 01/13/21 History (formulary)] Omeprazole 20 mg PO DAILY 01/13/21 01/13/21 History Tamsulosin HCl [Flomax] 0.4 mg PO DAILY 01/13/21 01/13/21 History Allergies Allergy/AdvReac Type Severity Reaction Status Date / Time No Known Allergies Allergy Verified 01/13/21 08:52 Surgical - Exam Vital Signs Temp Pulse Resp BP Pulse Ox 100.0 F H 129 H 18 140/79 94 L 01/13/21 05:40 01/13/21 05:40 01/13/21 05:40 01/13/21 05:40 01/13/21 05:40 General appearance: The patient is alert, oriented, appears in no acute distress. HET: Head is normocephalic and atraumatic. Neck: Supple without lymphadenopathy. Trachea midline. Heart: S1 S2. Regularly irregular. Lungs: Diminished. Abdomen: Soft, nontender, nondistended. Extremities: Left lower extremity transmetatarsal amputation with sutures clean dry and intact with dry necrotic tissue. Left groin with nolberto well approximated. Left lower extremity with nolberto well approximated and clean dry and intact. Palpable posterior tibialis pulse with palpable pulse along the graft and bilateral femoral pulses. Neurological: No focal deficits. Alert and oriented 3. Results - Labs 01/14/21 02:17 01/14/21 02:17 Abnormal Lab Results - Last 24 Hours (Table) 01/13/21 01/14/21 01/14/21 Range/Units 15:47 02:17 02:17 RBC 3.04 L (4.30-5.90) m/uL Hgb 9.4 L (13.0-17.5) gm/dL Hct 29.7 L (39.0-53.0) % Plt Count 526 H (150-450) k/uL APTT (22.0-30.0) sec Sodium 131 L (137-145) mmol/L Creatinine 1.26 H (0.66-1.25) mg/dL Calcium 8.2 L (8.4-10.2) mg/dL Total Protein 5.8 L (6.3-8.2) g/dL Albumin 2.5 L (3.5-5.0) g/dL Ur Leukocyte Esterase Moderate H (Negative) Urine WBC 30 H (0-5) /hpf 01/14/21 Range/Units 02:17 RBC (4.30-5.90) m/uL Hgb (13.0-17.5) gm/dL Hct (39.0-53.0) % Plt Count (150-450) k/uL APTT 39.3 H (22.0-30.0) sec Sodium (137-145) mmol/L Creatinine (0.66-1.25) mg/dL Calcium (8.4-10.2) mg/dL Total Protein (6.3-8.2) g/dL Albumin (3.5-5.0) g/dL Ur Leukocyte Esterase (Negative) Urine WBC (0-5) /hpf Diabetes panel 01/14/21 Range/Units 02:17 Sodium 131 L (137-145) mmol/L Potassium 3.5 (3.5-5.1) mmol/L Chloride 101 (98-107) mmol/L Carbon Dioxide 23 (22-30) mmol/L BUN 16 (9-20) mg/dL Creatinine 1.26 H (0.66-1.25) mg/dL Glucose 95 (74-99) mg/dL Calcium 8.2 L (8.4-10.2) mg/dL AST 26 (17-59) U/L ALT 16 (4-49) U/L Alkaline Phosphatase 66 (38-126) U/L Total Protein 5.8 L (6.3-8.2) g/dL Albumin 2.5 L (3.5-5.0) g/dL Calcium panel 01/14/21 Range/Units 02:17 Calcium 8.2 L (8.4-10.2) mg/dL Albumin 2.5 L (3.5-5.0) g/dL Pituitary panel 01/14/21 Range/Units 02:17 Sodium 131 L (137-145) mmol/L Potassium 3.5 (3.5-5.1) mmol/L Chloride 101 (98-107) mmol/L Carbon Dioxide 23 (22-30) mmol/L BUN 16 (9-20) mg/dL Creatinine 1.26 H (0.66-1.25) mg/dL Glucose 95 (74-99) mg/dL Calcium 8.2 L (8.4-10.2) mg/dL Adrenal panel 01/14/21 Range/Units 02:17 Sodium 131 L (137-145) mmol/L Potassium 3.5 (3.5-5.1) mmol/L Chloride 101 (98-107) mmol/L Carbon Dioxide 23 (22-30) mmol/L BUN 16 (9-20) mg/dL Creatinine 1.26 H (0.66-1.25) mg/dL Glucose 95 (74-99) mg/dL Calcium 8.2 L (8.4-10.2) mg/dL Total Bilirubin 0.2 (0.2-1.3) mg/dL AST 26 (17-59) U/L ALT 16 (4-49) U/L Alkaline Phosphatase 66 (38-126) U/L Total Protein 5.8 L (6.3-8.2) g/dL Albumin 2.5 L (3.5-5.0) g/dL Assessment and Plan Assessment: 1. History of peripheral arterial disease status post revascularization and recent transmetatarsal amputation done at outside hospital within the last 2-4 weeks 2. Fever 3. Shortness of breath 4. History of atrial fibrillation on Eliquis 5. History of coronary artery disease Plan: 1. Please get vascular surgical records from [facility] including any i maging and revascularization report 2. No plans on any vascular surgical intervention. Recommend patient follow-up with vascular surgeon as previously scheduled. Thank you for this consultation, we will sign off at this time. The impression and plan of care has been dictated as directed. Dr. Cevallos I performed a history and examination of this patient, discussed the same with the dictator. I agree with the dictator's note ,documented as a scribe. Any additional findings or plans will be noted.
[2021-01-14] MEDS ORDERED: AMIODARONE IN DEXTROSE,ISO-OSM 360 MG/200 ML PLAST..BAG IV ONE (14:00)
[2021-01-14] MEDS ORDERED: AMIODARONE IN DEXTROSE,ISO-OSM 150 MG/100 ML PLAST..BAG IV ONE (14:00)
[2021-01-14] MEDS: DOCUSATE 100 MG CAP PO SCH (14:05)
[2021-01-14] MEDS: ASPIRIN 81 MG PO SCH (14:05)
[2021-01-14] MEDS: HEPARIN SOD,PORK IN 0.45% NACL 25,000 UNIT in 0.45% NACL 1 250ML.BAG IV SCH (17:00)
[2021-01-14] MEDS: CEFEPIME 2 GM in SODIUM CHLORIDE 0.9% 100 ML IVPB SCH (18:06)
[2021-01-14] MEDS: AMIODARONE 450 MG in DEXTROSE 5% IN WATER 250 ML IV SCH ×2 (20:13)
[2021-01-14] MEDS: VANCOMYCIN 1,250 MG in SODIUM CHLORIDE 0.9% 250 ML IVPB SCH (21:54)
--- NOTE | 2021-01-14 22:34 | PN ---
PROGRESS NOTE DATE OF SERVICE: 01/14/2021 REASON FOR FOLLOWUP: Left transmetatarsal amputation site and cellulitis. INTERVAL HISTORY: The patient is afebrile. The patient is currently breathing comfortably. No chest pain, shortness of breath or cough. No abdominal pain or worsening pain to the left foot area. PHYSICAL EXAMINATION: Blood pressure is 123/65, pulse of 80, temperature 98.5. General description is an elderly male lying in bed in no distress. Respiratory system: Unlabored breathing, clear to auscultation anteriorly. Heart S1, S2. Regular rate and rhythm. Abdomen soft, no tenderness. Left transmetatarsal amputation site did have necrotic changes; redness minimally decreased. LABS: Hemoglobin is 9.4, white count down to 9.8. Creatinine is 1.26. DIAGNOSTIC IMPRESSION AND PLAN: Patient admitted to hospital with left transmetatarsal amputation site necrotic wound and possible cellulitis, covered with cefepime and vancomycin. That will be continued, waiting for the surgical and may benefit from transfer to [place] to be evaluated by his surgeon. Continue supportive care. MMODL / IJN: [id number] /
--- NOTE | 2021-01-15 00:14 | P.PN ---
Subjective Progress Note Date: 01/14/21 Principal diagnosis: A fibe with RVR, Sepsis Mr. Joaquin is a 65-year-old male with a significant past medical history of atrial fibrillation, coronary artery disease, peripheral vascular disease, COPD, history of multiple skeletal fractures, complicated diverticulitis with bowel resection and colostomy and Malcolm's pouch was sent from [facility] for the chief complaint of fevers and difficulty in breathing that has been going on for 2 days. Patient is a poor historian. He states that he had his left distal foot amputation done at [facility] 3 weeks back, he also mentioned about having a femoral bypass surgery done at that time. And then he eventually he was discharged to [facility]. Patient states for the past couple of days he has been having increasing shortness of breath and probably had fevers for the last couple of days. Patient had some discomfort of his chest area. Along with difficulty in breathing. He denies having any nausea vomiting or diarrhea. He complains of pain in his left lower extremity. Patient has history of atrial fibrillation and at the time of admission was found to have atrial fibrillation with rapid ventricular rate. t the time of admission patient was having a fever of 100.3, heart rate in 120s to 130s, respiratory rate 16, blood pressure 110/63, saturating at 94% on room air. He had blood work done showing white count of 5.3, hemoglobin 8.9, platelets 449. Sodium 132, potassium 4.2, chloride 103, bicarbonate drip, BUN 17, creatinine 1.32. His albumin is 2.4. Zhang virus PCR is negative. Urine analysis positive for moderate leukocyte esterase and 30 WBCs. He had a chest x-ray showing moderate bilateral pleural effusions. He had an EKG showing a atrial fibrillation with rapid ventricular rate. So the patient is admitted for further treatment and management. On 01/14/2021-patient is seen and examined at the bedside. Patient is still in emergency room awaiting bed. He complains of pain in the left lower extremity, that is stable and controlled with pain medications. He does not want his left extremity to be touched. Patient denied having any chest pain or palpitations. He denies having any cough or difficulty in breathing. On reviewing the patient's vitals T-max of 98.5, heart rate between 70s to 90s, respiratory rate 16, blood pressure 113/67 saturating at 97% on 4 L of nasal cannula. On reviewing the patient's the labs white count of 9.8, hemoglobin 9.4, platelets 526. Sodium 131, potassium 3.8, chloride 101, bicarb 23, BUN 16, creatinine 1.06. Albumin 2.5. Patient's medications have been reviewed Active Medications Acetaminophen (Acetaminophen Tab 325 Mg Tab) 650 mg PO Q4H PRN PRN Reason: Pain or Fever > 100.5 Artificial Tears (Artificial Tears-Hypromellose Drops 15 Ml Btl) 1 drops RIGHT EYE Q6H PRN PRN Reason: DRY EYES Aspirin (Aspirin 81 Mg) 81 mg PO DAILY [facility] Last Admin: 01/14/21 14:05 Dose: 81 mg Documented by: Budesonide/Formoterol Fumarate (Symbicort 80-4.5 Mcg Inhaler) 2 puff INHALATION RT-BID [facility] Clopidogrel Bisulfate (Clopidogrel 75 Mg Tab) 75 mg PO DAILY [facility] Last Admin: 01/14/21 08:06 Dose: 75 mg Documented by: Docusate Sodium (Docusate 100 Mg Cap) 100 mg PO DAILY [facility] Last Admin: 01/14/21 14:05 Dose: 100 mg Documented by: Furosemide (Furosemide 10 Mg/Ml 4 Ml Vial) 40 mg IV Q12H [facility] Last Admin: 01/14/21 21:50 Dose: 40 mg Documented by: Gabapentin (Gabapentin 300 Mg Cap) 300 mg PO Q8HR [facility] Last Admin: 01/14/21 23:22 Dose: 300 mg Documented by: Diltiazem HCl 125 mg/ Sodium (Chloride) 125 mls @ 5 mls/hr IV .Q24H [facility] Last Admin: 01/14/21 02:38 Dose: 5 mg/hr, 5 mls/hr Documented by: Heparin Sodium/Sodium Chloride (25,000 unit/ Sodium Chloride) 250 mls @ 7.457 mls/hr IV .Q24H [facility]; Protocol Last Admin: 01/14/21 17:00 Dose: 16 units/kg/hr, 9.943 mls/hr Documented by: Vancomycin HCl 1,250 mg/ (Sodium Chloride) 250 mls @ 125 mls/hr IVPB Q24H [facility] Last Admin: 01/14/21 21:54 Dose: 125 mls/hr Documented by: Cefepime HCl 2 gm/ Sodium (Chloride) 100 mls @ 25 mls/hr IVPB Q12H [facility] Last Admin: 01/14/21 18:06 Dose: 25 mls/hr Documented by: Amiodarone HCl 450 mg/ (Dextrose/Water) 250 mls @ 16.667 mls/hr IV .Q15H [facility]; Protocol Stop: 01/15/21 09:14 Last Admin: 01/14/21 20:13 Dose: 0.5 mg/min, 16.667 mls/hr Documented by: Metoprolol Tartrate (Metoprolol Tartrate 50 Mg Tab) 100 mg PO Q8HR [facility] Last Admin: 01/14/21 23:22 Dose: 100 mg Documented by: Morphine Sulfate (Morphine Sulfate Ir 15 Mg Tablet) 30 mg PO Q6HR [facility] Last Admin: 01/14/21 23:22 Dose: 30 mg Documented by: Pantoprazole Sodium (Pantoprazole 40 Mg Tablet) 40 mg PO AC-BRKFST [facility] Last Admin: 01/14/21 06:23 Dose: 40 mg Documented by: Tamsulosin HCl (Tamsulosin 0.4 Mg Cap.Er.24h) 0.4 mg PO DAILY [facility] Last Admin: 01/14/21 06:18 Dose: 0.4 mg Documented by: Objective - Vital Signs Vital signs: Vital Signs Temp 98.5 F 01/14/21 00:08 Pulse 87 01/14/21 06:12 Resp 18 01/14/21 06:12 BP 109/68 01/14/21 14:35 Pulse Ox 97 01/14/21 06:12 Intake & Output 01/13/21 01/14/21 01/14/21 18:59 06:59 18:59 Intake Total 1350.053 96.57 Output Total 1700 Balance -349.947 96.57 Intake: Intake, IV Titration 570.053 96.57 Amount Cefepime 2 gm In Sodium 100 Chloride 0.9% 100 ml @ 25 mls/hr IVPB Q12H [facility] Rx# :[id number] Diltiazem 125 mg In 91.917 Sodium Chloride 0.9% 100 ml @ 5 MG/HR 5 mls/hr IV .Q24H [facility] Rx#:[id number] Heparin Sod,Pork in 0.45% 128.136 96.57 NaCl 25,000 unit In 0.45 % NaCl 1 250ml.bag @ 12 UNITS/KG/HR 7.457 mls/hr IV .Q24H [facility] Rx#: [id number] Vancomycin 1,250 mg In 250 Sodium Chloride 0.9% 250 ml @ 125 mls/hr IVPB Q24H [facility] Rx#:[id number] Oral 780 Output: Urine 1700 Other: # Voids 3 - Exam PHYSICAL EXAMINATION: GENERAL: The patient is alert and oriented x2, cachectic HEENT: Pupils are round and equally reacting to light. EOMI. No scleral icterus. No conjunctival pallor. Normocephalic, atraumatic. CARDIOVASCULAR: Irregularly irregular PULMONARY: Breath sounds positive bilaterally. Crackles at the lower lung bases. ABDOMEN: Soft, nontender, Malcolm's pouch in place. Sacral decubitus ulcer. MUSCULOSKELETAL: Left distal foot amputation. EXTREMITIES: Significant discoloration of the distal end of the foot that is amputated. There is surrounding redness, and hyperpigmentation. Sutures in place. Sutures in the left groin area- looks clean and dry NEUROLOGICAL: Gross neurological examination did not reveal any focal deficits. SKIN: Sacral decubitus ulcer. - Labs CBC & Chem 7: 01/14/21 02:17 01/14/21 02:17 Labs: Abnormal Lab Results - Last 24 Hours (Table) 01/14/21 01/14/21 01/14/21 Range/Units 02:17 02:17 02:17 RBC 3.04 L (4.30-5.90) m/uL Hgb 9.4 L (13.0-17.5) gm/dL Hct 29.7 L (39.0-53.0) % Plt Count 526 H (150-450) k/uL APTT 39.3 H (22.0-30.0) sec Sodium 131 L (137-145) mmol/L Creatinine 1.26 H (0.66-1.25) mg/dL Calcium 8.2 L (8.4-10.2) mg/dL Total Protein 5.8 L (6.3-8.2) g/dL Albumin 2.5 L (3.5-5.0) g/dL 01/14/21 Range/Units 09:38 RBC (4.30-5.90) m/uL Hgb (13.0-17.5) gm/dL Hct (39.0-53.0) % Plt Count (150-450) k/uL APTT 42.4 H (22.0-30.0) sec Sodium (137-145) mmol/L Creatinine (0.66-1.25) mg/dL Calcium (8.4-10.2) mg/dL Total Protein (6.3-8.2) g/dL Albumin (3.5-5.0) g/dL Microbiology - Last 24 Hours (Table) 01/13/21 15:47 Urine Culture - Preliminary Urine,Clean Catch 01/13/21 06:45 Blood Culture - Preliminary Blood No Growth after 24 hours 01/13/21 06:30 Blood Culture - Preliminary Blood No Growth after 24 hours Assessment and Plan Assessment: ASSESSMENT Sepsis- likely source of infection would be the left leg vs UTI vs PNA Atrial fibrillation with rapid ventricular rate Status post left distal foot amputation done 3 weeks back Status post left femoral bypass surgery done 3 weeks back Coronary artery disease Chronic anemia Acute kidney injury COPD Severe peripheral vascular disease Hypertension Chronic debility Severe protein calorie malnutrition Sacral decubitus ulcer History of nicotine dependence GI DVT prophylaxis PLAN:Patient is currently in A. fib, with heart rate between 100s to 120s on Cardizem drip and also heparin drip for anticoagulation. Patient had an echocardiogram done this morning showing ejection fraction of 45 to 5% with mild mitral and tricuspid regurgitation. In terms of his sepsis patient's blood cult ure and urine culture no growth so far. He is currently on vancomycin and cefepime as per ID recommendation. [facility] from [facility] has been sent and awaiting. Patient was evaluated by vascular surgery, no acute intervention suggested. Multiple consultants including cardiology, vascular, ID following the patient closely. Overall prognosis remains guarded in view of chronic multiple chronic medical conditions.
[2021-01-15] MEDS: CEFEPIME 2 GM in SODIUM CHLORIDE 0.9% 100 ML IVPB SCH ×2 (01:04→14:52)
[2021-01-15 04:25] LABS: Basophils % (A) 0 %; Eosinophils # (A) 0.3 k/uL (0-0.7); Eosinophils % (A) 2 %; HCT 31.4 % (39.0-53.0); HGB 9.9 gm/dL (13.0-17.5); Hypochromasia Slight; Lymphocytes # (A) 0.5 k/uL (1.0-4.8); Lymphocytes % (A) 3 %; MCH 31.4 pg (25.0-35.0); MCHC 31.6 g/dL (31.0-37.0); MCV 99.4 fL (80.0-100.0); Macrocytosis Slight; Monocytes % (A) 6 %; Neutrophils # (A) 14.1 k/uL (1.3-7.7); Neutrophils % (A) 88 %; Platelet Count 571 k/uL (150-450); RBC 3.16 m/uL (4.30-5.90); RDW 14.7 % (11.5-15.5); WBC 16.1 k/uL (3.8-10.6)
[2021-01-15 04:29] LABS: Calcium 8.2 mg/dL (8.4-10.2); Potassium 3.7 mmol/L (3.5-5.1)
[2021-01-15] MEDS: PANTOPRAZOLE 40 MG TABLET PO SCH (06:35)
[2021-01-15] MEDS: ASPIRIN 81 MG PO SCH (08:37)
[2021-01-15] MEDS: GABAPENTIN 300 MG CAP PO SCH ×2 (08:37→16:57)
[2021-01-15] MEDS: METOPROLOL TARTRATE 50 MG TAB PO SCH ×2 (08:37→16:57)
[2021-01-15] MEDS: FUROSEMIDE 10 MG/ML 4 ML VIAL IV SCH ×2 (08:38→20:46)
[2021-01-15] MEDS: TAMSULOSIN 0.4 MG CAP.ER.24H PO SCH (08:38)
[2021-01-15] MEDS: CLOPIDOGREL 75 MG TAB PO SCH (08:38)
[2021-01-15] MEDS: MORPHINE SULFATE IR 15 MG TABLET PO SCH ×3 (10:10→16:57)
[2021-01-15] MEDS: DILTIAZEM 125 MG in SODIUM CHLORIDE 0.9% 100 ML IV SCH (10:11)
[2021-01-15] MEDS: AMIODARONE 200 MG TAB PO SCH ×2 (10:16→20:46)
[2021-01-15] MEDS: AMIODARONE 450 MG in DEXTROSE 5% IN WATER 250 ML IV SCH ×2 (10:50)
--- NOTE | 2021-01-15 12:27 | P.PN ---
Subjective Progress Note Date: 01/15/21 Principal diagnosis: ischemic foot Patient seen and examined lying in bed. No acute changes through the night. After further discussing with patient he states he's had the ischemic changes prior to his surgery which has started with the left great toe. Patient was able to pull up pictures from his phone that showed the ischemia to the left foot. His been afebrile. WBC today 16.1 hemoglobin 9.9. Patient is currently on cefepime and vancomycin. And does state that he would like to be transferred to [facility] to see his vascular surgeon. Objective - Vital Signs Vital signs: Vital Signs Temp 98.7 F 01/15/21 07:54 Pulse 83 01/15/21 07:54 Resp 18 01/15/21 07:54 BP 101/73 01/15/21 07:54 Pulse Ox 96 01/15/21 07:54 Intake & Output 01/14/21 01/15/21 01/15/21 18:59 06:59 18:59 Intake Total 121.864 720 Balance 121.864 720 Intake: Intake, IV Titration 121.864 Amount Heparin Sod,Pork in 0.45% 121.864 NaCl 25,000 unit In 0.45 % NaCl 1 250ml.bag @ 12 UNITS/KG/HR 7.457 mls/hr IV .Q24H [facility] Rx#: [id number] Oral 720 Other: Voiding Method Urinal # Voids 1 - Exam General appearance: The patient is alert, oriented, appears in no acute distre ss. HET: Head is normocephalic and atraumatic. Neck: Supple without lymphadenopathy. Trachea midline. Extremities: Left TMA site well approximated with sutures. Left foot with ischemic changes at the TMA site which are dry. Palpable pulse and bypass graft at the ankle. Neurological: No focal deficits. Strength and sensation are grossly intact. - Labs CBC & Chem 7: 01/15/21 03:06 01/15/21 03:06 Labs: Abnormal Lab Results - Last 24 Hours (Table) 01/14/21 01/14/21 01/15/21 Range/Units 09:38 19:18 03:06 WBC (3.8-10.6) k/uL RBC (4.30-5.90) m/uL Hgb (13.0-17.5) gm/dL Hct (39.0-53.0) % Plt Count (150-450) k/uL Neutrophils # (1.3-7.7) k/uL Lymphocytes # (1.0-4.8) k/uL APTT 42.4 H 48.1 H 46.5 H (22.0-30.0) sec Sodium (137-145) mmol/L Creatinine (0.66-1.25) mg/dL Glucose (74-99) mg/dL Calcium (8.4-10.2) mg/dL 01/15/21 01/15/21 Range/Units 03:06 03:06 WBC 16.1 H (3.8-10.6) k/uL RBC 3.16 L (4.30-5.90) m/uL Hgb 9.9 L (13.0-17.5) gm/dL Hct 31.4 L (39.0-53.0) % Plt Count 571 H (150-450) k/uL Neutrophils # 14.1 H (1.3-7.7) k/uL Lymphocytes # 0.5 L (1.0-4.8) k/uL APTT (22.0-30.0) sec Sodium 131 L (137-145) mmol/L Creatinine 1.50 H (0.66-1.25) mg/dL Glucose 109 H (74-99) mg/dL Calcium 8.2 L (8.4-10.2) mg/dL Microbiology - Last 24 Hours (Table) 01/13/21 15:47 Urine Culture - Preliminary Urine,Clean Catch 01/13/21 06:45 Blood Culture - Preliminary Blood No Growth after 24 hours 01/13/21 06:30 Blood Culture - Preliminary Blood No Growth after 24 hours Assessment and Plan Assessment: 1. History of peripheral arterial disease status post revascularization and recent transmetatarsal amputation done at outside hospital within the last 2-4 weeks 2. Dry gangrene 3. Fever 4. Shortness of breath 5. History of atrial fibrillation on Eliquis 6. History of coronary artery disease 7. Tobacco abuse Plan: 1. Please get vascular surgical records from [facility] including any imaging and revascularization report 2. No plans on any vascular surgical intervention. Recommend patient follow-up with vascular surgeon as previously scheduled. Also feel it is reasonable to transfer patient to [facility] as he requests for further follow-up from vascular surgical procedure. Thank you for this consultation, we will sign off at this time. The impression and plan of care has been dictated as directed. Dr. Cevallos I performed a history and examination of this patient, discussed the same with the dictator. I agree with the dictator's note ,documented as a scribe. Any additional findings or plans will be noted.
--- NOTE | 2021-01-15 14:13 | P.PN ---
Subjective Progress Note Date: 01/15/21 HISTORY OF PRESENT ILLNESS: This is a 65-year-old male with a past medical history significant for paroxysmal atrial fibrillation not on anticoagulation secondary to GI bleed, coronary artery disease with previous stenting to the RCA in 2018, nicotine dependence, and recent vascular surgery to left lower extremity. 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 We have been asked to see the patient in consultation for afib and CHF. Patient examined at the bedside. Patient dayton iglesias from [facility] due to chest pain. He states he recently underwent surgery to his left lower extremity at [facility] a few weeks ago. At the time of examination, the patient denies chest pain or pressure. He is in afib with uncontrolled ventricular rates. He is currently on a Cardizem drip and a heparin drip. BNP elevated over 12,000. He was started on IV lasix. He currently denies SOB. Chest XR revealed moderate bilateral pleural effusions. echocardiogram completed revealing ejection fraction 40-45%. Mild mitral regurgitation. Mild tricuspid regurgitation. 01/15/2021 Patient examined this morning at the bedside. Patient denies chest pain or pressure. He has converted to sinus mechanism with a heart rate in the 80s. PHYSICAL EXAM: VITAL SIGNS: Reviewed. GENERAL: Well-developed in no acute distress. HEENT: Head is normocephalic. Pupils are equal, round. Sclerae anicteric. Mucous membranes of the mouth are moist. Neck supple. No JVD or thyromegaly LUNGS: Respirations even and unlabored. Lungs essentially clear to auscultation bilaterally. HEART: tachycardic. Irregular rate and rhythm. S1 and S2 heard. ABDOMEN: Soft. Nondistended. Nontender. EXTREMITIES: Left toe amputations noted. Patient with necrotic tissue to LILLIAN. No clubbing or cyanosis. Peripheral pulses intact. No lower extremity edema NEUROLOGIC: Awake and alert. Oriented x 3. ASSESSMENT: Chest pain, troponin negative x 3 Acute diastolic congestive heart failure Paroxysmal atrial fibrillation not on anticoagulation secondary to GI bleed Coronary artery disease with previous stenting to the RCA in 2018 Recent surgery to left lower extremity Nicotine dependence PLAN: Discontinue IV heparin. 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 Discontinue IV Cardizem Discontinue IV amio. Begin oral amio. Continue metoprolol Continue telemetry monitoring Continue IV lasix Further recommendations pending patient's course Nurse practitioner note has been reviewed by physician. Signing provider agrees with the documented findings, assessment, and plan of care. Objective - Vital Signs Vital signs: Vital Signs Temp 98.7 F 01/15/21 07:54 Pulse 81 01/15/21 12:00 Resp 18 01/15/21 12:00 BP 101/73 01/15/21 12:00 Pulse Ox 96 01/15/21 12:00 Intake & Output 01/14/21 01/15/21 01/15/21 18:59 06:59 18:59 Intake Total 121.864 720 Output Total 500 Balance 121.864 720 -500 Intake: Intake, IV Titration 121.864 Amount Heparin Sod,Pork in 0.45% 121.864 NaCl 25,000 unit In 0.45 % NaCl 1 250ml.bag @ 12 UNITS/KG/HR 7.457 mls/hr IV .Q24H [facility] Rx#: [id number] Oral 720 Output: Urine 500 Other: Voiding Method Urinal Urinal # Voids 1 - Labs CBC & Chem 7: 01/15/21 03:06 01/15/21 03:06 Labs: Abnormal Lab Results - Last 24 Hours (Table) 01/14/21 01/15/21 01/15/21 Range/Units 19:18 03:06 03:06 WBC 16.1 H (3.8-10.6) k/uL RBC 3.16 L (4.30-5.90) m/uL Hgb 9.9 L (13.0-17.5) gm/dL Hct 31.4 L (39.0-53.0) % Plt Count 571 H (150-450) k/uL Neutrophils # 14.1 H (1.3-7.7) k/uL Lymphocytes # 0.5 L (1.0-4.8) k/uL APTT 48.1 H 46.5 H (22.0-30.0) sec Sodium (137-145) mmol/L Creatinine (0.66-1.25) mg/dL Glucose (74-99) mg/dL Calcium (8.4-10.2) mg/dL 01/15/21 Range/Units 03:06 WBC (3.8-10.6) k/uL RBC (4.30-5.90) m/uL Hgb (13.0-17.5) gm/dL Hct (39.0-53.0) % Plt Count (150-450) k/uL Neutrophils # (1.3-7.7) k/uL Lymphocytes # (1.0-4.8) k/uL APTT (22.0-30.0) sec Sodium 131 L (137-145) mmol/L Creatinine 1.50 H (0.66-1.25) mg/dL Glucose 109 H (74-99) mg/dL Calcium 8.2 L (8.4-10.2) mg/dL Microbiology - Last 24 Hours (Table) 01/13/21 15:47 Urine Culture - Final Urine,Clean Catch 01/13/21 06:45 Blood Culture - Preliminary Blood No Growth after 48 hours 01/13/21 06:30 Blood Culture - Preliminary Blood No Growth after 48 hours
--- NOTE | 2021-01-15 15:56 | PN ---
PROGRESS NOTE DATE OF SERVICE: 01/15/2021. This 65-year-old gentleman who was referred from a halfway with a significant foot infection is being closely monitored at this time. The patient had features of sepsis. The patient had transmetatarsal amputation with some necrotic wound also. surgery was performed at [facility]. The patient had a graft also. Past medical history reviewed. REVIEW OF SYSTEMS: CARDIOVASCULAR SYSTEM: No angina. RESPIRATION: As mentioned earlier. GI: As mentioned earlier. : No dysuria. NERVOUS SYSTEM: No numbness, weakness. CURRENT MEDICATIONS: Reviewed. They include Tylenol, Cordarone, Artificial Tears, aspirin, Symbicort, Plavix, Colace, Lasix. Doses are reviewed. PHYSICAL EXAMINATION: Patient is alert, oriented x2. Pulse 83, blood pressure 101/73, respiration 18, temperature 98.7, pulse ox 96% on 5 L. HEENT: Conjunctivae normal. NECK: No jugular venous distention. CARDIOVASCULAR: S1, S2 muffled. RESPIRATION: Breath sounds diminished at the bases. A few scattered rhonchi. Abdomen is soft, non-tender. LEGS: Pulses are diminished on the left side. Significant erythema and necrotic changes on the left lower limb present. NERVOUS SYSTEM: No focal deficits. LABS: WBC 16.1, hemoglobin 9.9. APTT is 46.5. Sodium is 131. ASSESSMENT: 1. Severe infection with some necrosis of the left lower leg. 2. History of recent transmetatarsal amputation as well as left femoral bypass surgery about 3 weeks ago at [facility]. 3. Atrial fibrillation with rapid ventricular rate. 4. History of coronary artery disease. 5. Chronic anemia. 6. Acute kidney injury. 7. Chronic obstructive pulmonary disease. 8. Severe peripheral vascular disease. 9. Hypertension. 10.Chronic debility. 11.Severe protein-calorie malnutrition. 12.Sacral decubitus ulcer. 13.History of nicotine dependence. 14.Gastrointestinal, deep vein thrombosis prophylaxis. 15.Hyponatremia. 16.Hypoalbuminemia with mild to moderate protein-calorie malnutrition. 17.Increased white count. RECOMMENDATIONS AND DISCUSSION: I recommend to continue current medications, continue with symptomatic treatment. Cultures are negative so far. I would also recommend a CT scan of the leg to complete the workup. Otherwise, closely follow with Vascular Surgery as well as Infectious Disease. Guarded prognosis. Further recommendations to follow. MMODL / IJN: [id number] /
[2021-01-15] MEDS: HEPARIN SODIUM,PORCINE/PF 5,000 UNIT/0.5 ML SYRINGE SQ SCH (16:58)
[2021-01-15] MEDS: SYMBICORT 80-4.5 MCG INHALER INHALATION SCH (17:01)
--- NOTE | 2021-01-15 18:29 | CT ---
EXAMINATION TYPE: CT lower leg LT wo con DATE OF EXAM: 01/15/2021 COMPARISON: None HISTORY: non-healing wounds around left foot CT DLP: 103.8 mGycm Automated exposure control for dose reduction was used. Images were obtained from the proximal tibia to the bottom of the calcaneus. FINDINGS: There is narrowing of the ankle joint space. There is some subchondral cystic changes in the talus. T here is some mild lucency in the distal tibia consistent with osteoporosis. I see no evidence of a fr acture. There is no cortical erosion to suggest osteomyelitis. The tarsal bones are intact. There is some mild subcutaneous edema around the ankle and hindfoot. IMPRESSION: No evidence of osteomyelitis. No fracture. Osteoporotic changes. Degenerative cystic changes at the a nkle joint.
--- NOTE | 2021-01-15 19:38 | US ---
EXAMINATION TYPE: US venous doppler duplex LE LT DATE OF EXAM: 01/15/2021 7:18 PM COMPARISON: NONE CLINICAL HISTORY: dvt. Pain. Limited hx from patient. SIDE PERFORMED: Left TECHNIQUE: The lower extremity deep venous system is examined utilizing real time linear array sonog guerrero with graded compression, doppler sonography and color-flow sonography. VESSELS IMAGED: Common Femoral Vein Deep Femoral Vein Greater Saphenous Vein * Femoral Vein Popliteal Vein Small Saphenous Vein * Proximal Calf Veins (* superficial vessels) Left Leg: No evidence of DVT in veins imaged at this time. Limited exam due to recent surgery. Compr essions not performed within the upper groin. Anterior to the left femoral vein, there appears to be bypass graft- difficult to show color flow, bu t pulsed-wave Doppler shows arterial waveform. Possible limited flow within graft. IMPRESSION: No sign of left leg deep vein thrombosis.
[2021-01-15] MEDS ORDERED: HEPARIN SODIUM,PORCINE/PF 5,000 UNIT/0.5 ML SYRINGE SQ SCH (21:00)
--- NOTE | 2021-01-15 23:09 | PN ---
PROGRESS NOTE DATE OF SERVICE: 01/15/2021 REASON FOR FOLLOWUP: Left foot pain and a question of cellulitis. INTERVAL HISTORY: The patient is afebrile, has been breathing comfortably. Complaining of pain to the left foot, but no worsening. No chest pain, shortness of breath or cough. No abdominal pain or diarrhea. PHYSICAL EXAMINATION: Blood pressure 112/70 with a pulse of 95, temperature 98.6. He is 94% on 5 L nasal cannula. General description is an elderly male lying in bed in no distress. Respiratory system: Unlabored breathing, clear to auscultation anteriorly. Heart S1, S2. Regular rate and rhythm. Abdomen soft, no tenderness. Left foot did have necrotic changes. No significant redness or drainage. LABS: Hemoglobin is 9.9, white count 16.1. Creatinine is 1.50. DIAGNOSTIC IMPRESSION AND PLAN: Patient with left foot necrotic wound with recent bypass surgery. Care was discussed with Vascular Surgery. Mentioned his graft is patent. Patient also had a CT that was negative for osteomyelitis or fracture. The patient is covered with cefepime and vancomycin; to continue while monitoring his clinical course closely. Continue with supportive care. MMODL / IJN: [id number] /
[2021-01-16] MEDS: HEPARIN SODIUM,PORCINE/PF 5,000 UNIT/0.5 ML SYRINGE SQ SCH (00:04)
[2021-01-16] MEDS: GABAPENTIN 300 MG CAP PO SCH ×3 (00:04→17:42)
[2021-01-16] MEDS: METOPROLOL TARTRATE 50 MG TAB PO SCH ×3 (00:04→17:43)
[2021-01-16] MEDS: VANCOMYCIN 1,250 MG in SODIUM CHLORIDE 0.9% 250 ML IVPB SCH (00:04)
[2021-01-16] MEDS ORDERED: ONDANSETRON 4 MG/2 ML VIAL IVP PRN (00:45)
[2021-01-16] MEDS: MORPHINE SULFATE IR 15 MG TABLET PO SCH ×4 (01:01→17:44)
[2021-01-16] MEDS: CEFEPIME 2 GM in SODIUM CHLORIDE 0.9% 100 ML IVPB SCH (02:32)
[2021-01-16] MEDS ORDERED: DILTIAZEM DRIP BOLUS FROM BAG 1 MG SOLN IV ONE (05:17)
[2021-01-16] MEDS: PANTOPRAZOLE 40 MG/10 ML VIAL IVP SCH ×2 (05:32→21:07)
--- NOTE | 2021-01-16 05:48 | XR ---
EXAMINATION TYPE: XR chest 1V portable DATE OF EXAM: 01/16/2021 COMPARISON: 01/13/2021 HISTORY: Possible aspiration TECHNIQUE: Single view FINDINGS: Heart size is normal. There is blunting of the costophrenic angles. There are chest leads. There are no hilar masses. IMPRESSION: Bilateral pleural effusions. No heart failure. Bilateral lower lobe pneumonia. Pulmonary infiltrates increased slightly compared to recent exam.
[2021-01-16] MEDS ORDERED: DILTIAZEM 125 MG in SODIUM CHLORIDE 0.9% 100 ML IV SCH (06:15)
[2021-01-16 07:39] LABS: HCT 35.6 % (39.0-53.0); HGB 10.8 gm/dL (13.0-17.5); Hypochromasia Slight; MCH 30.4 pg (25.0-35.0); MCHC 30.3 g/dL (31.0-37.0); MCV 100.3 fL (80.0-100.0); Macrocytosis Slight; Mean Platelet Volume 7.7; Platelet Count 755 k/uL (150-450); RBC 3.55 m/uL (4.30-5.90); RDW 14.8 % (11.5-15.5); WBC 45.7 k/uL (3.8-10.6)
[2021-01-16 07:54] LABS: Calcium 8.7 mg/dL (8.4-10.2)
[2021-01-16] MEDS ORDERED: DEXTROSE 5% IN WATER 100 ML with AMIODARONE 150 MG IV ONE (08:15)
[2021-01-16] MEDS ORDERED: AMIODARONE IN DEXTROSE,ISO-OSM 360 MG/200 ML PLAST..BAG IV ONE (08:30)
[2021-01-16] MEDS ORDERED: AMIODARONE IN DEXTROSE,ISO-OSM 150 MG/100 ML PLAST..BAG IV ONE (08:30)
[2021-01-16] MEDS ORDERED: AMIODARONE 360 MG in DEXTROSE 5% IN WATER 200 ML IV ONE ×2 (08:30)
[2021-01-16] MEDS: ASPIRIN 81 MG PO SCH (08:33)
[2021-01-16] MEDS: CLOPIDOGREL 75 MG TAB PO SCH (08:33)
[2021-01-16] MEDS: MULTIVITAMINS, THERA 1 EACH TAB PO SCH (08:33)
[2021-01-16] MEDS: TAMSULOSIN 0.4 MG CAP.ER.24H PO SCH (08:33)
[2021-01-16] MEDS: DOCUSATE 100 MG CAP PO SCH (08:33)
[2021-01-16 09:06] LABS: HCT 35.2 % (39.0-53.0); Hypochromasia Slight; MCH 30.7 pg (25.0-35.0); MCHC 31.2 g/dL (31.0-37.0); MCV 98.3 fL (80.0-100.0); Macrocytosis Slight; Mean Platelet Volume 7.3; Platelet Count 765 k/uL (150-450); RBC 3.58 m/uL (4.30-5.90); RDW 15.4 % (11.5-15.5)
[2021-01-16 09:14] LABS: WBC 51.1 k/uL (3.8-10.6)
[2021-01-16 09:21] LABS: Calcium 8.7 mg/dL (8.4-10.2); Magnesium 1.3 mg/dL (1.6-2.3); Total Bilirubin 0.6 mg/dL (0.2-1.3); Total Protein 6.7 g/dL (6.3-8.2)
--- NOTE | 2021-01-16 09:24 | XR ---
EXAMINATION TYPE: XR chest 1V portable DATE OF EXAM: 01/16/2021 Comparison: 01/16/2021 Clinical History: 65-year-old male NG tube placement Findings: Multiple linear densities project over the upper chest. These project over the tracheal air lucency a s well. Suspected to represent external artifacts recommend ET tube. NG tube courses below the diaphr agm. Distal aspect is beyond the field of view. Leftward patient rotation of the normal cardiac and mediastinal contours. Heart appears overall irene l size. Hyperinflation. Bibasilar airspace disease persists. There may be slight improvement at the r ight base. Impression: 1. Distal aspect of the NG tube is not included in the [id number]. It courses below the diaphragm. 2. COPD and continued bibasilar airspace disease. Possible slight improvement on the right.
[2021-01-16] MEDS ORDERED: SODIUM CHLORIDE 0.9% 500 ML 500 ML IV ONE (09:25)
[2021-01-16] MEDS ORDERED: Magnesium Replacement Protocol 1 EACH MISC MISCELLANE PRN (09:26)
[2021-01-16 09:27] LABS: Band Neutrophils % 5 %; Lymphocytes # (M) 0.51 k/uL (1.0-4.8); Monocytes # (M) 1.53 k/uL (0-1.0); Myelocytes # (M) 0.51 k/uL (0); Myelocytes % 1 %; Neutrophils % (M) 91 %; Nucleated Red Blood Cells 0 /100 WBC (0-0); Total Cells Counted 200
--- NOTE | 2021-01-16 09:27 | XR ---
EXAMINATION TYPE: One view abdominal series. DATE OF EXAM: 01/16/2021 COMPARISON: 07/22/2018 HISTORY: NG tube placement TECHNIQUE: One view abdominal series FINDINGS: NG tube is seen overlying the region of the gastric body. Numerous dilated small bowel loops are seen . Contrast is seen within the colon. Severe arthropathy right hip postsurgical left hip. Surgical sta ples are seen overlying the left hip. Degenerative change of the spine. Vascular calcifications noted . Left lower lobe infiltrate seen IMPRESSION: 1. NG tube overlying the left upper quadrant likely within the gastric body. Correlate for bowel obst ruction.. 2. Left lower lobe infiltrate
[2021-01-16 09:32] LABS: Band Neutrophils % 3 %; Lymphocytes # (M) 0.46 k/uL (1.0-4.8); Monocytes # (M) 2.29 k/uL (0-1.0); Myelocytes # (M) 0.46 k/uL (0); Myelocytes % 1 %; Neutrophils % (M) 91 %; Nucleated Red Blood Cells 0 /100 WBC (0-0); Total Cells Counted 200
[2021-01-16] MEDS: MAGNESIUM SULFATE-D5W PMX 1 GM in DEXTROSE/WATER 1 100ML.BAG IVPB SCH ×3 (09:36→13:36)
[2021-01-16] MEDS: DILTIAZEM 125 MG in SODIUM CHLORIDE 0.9% 100 ML IV SCH (09:36)
[2021-01-16] MEDS ORDERED: SODIUM CHLORIDE 0.9% 1,000 ML IV ONE ×3 (10:21→17:00)
[2021-01-16] MEDS: FUROSEMIDE 10 MG/ML 4 ML VIAL IV SCH (10:26)
--- NOTE | 2021-01-16 11:26 | P.GSCN ---
History of Present Illness Consult date: 01/16/21 History of present illness: CHIEF COMPLAINT: Fever Reason for consult: Vomiting HISTORY OF PRESENT ILLNESS: This is a 65-year-old male who is hospitalized with severe infection and necrosis of the left leg, CHF exacerbation and atrial fibrillation with rapid ventricular response. Patient had recent transmetatarsal amputation and left femoral bypass surgery about 3 weeks ago at [facility]. Early this morning patient started to vomit large amount of stool. He had several episodes of emesis. He had been complaining of abdominal pain. He does have a history of bowel obstruction. Also, has history of abdominal surgeries which included a bowel resection with colostomy and Karen pouch for diverticulitis, bladder injury during surgery that required surgical repair, and right inguinal hernia repair with mesh. Patient had NG tube inserted and immediately had output of 550 mL of dark material. Patient has had stool output from his ostomy. This morning patient did go back into atrial fibrillation with rapid ventricular response. He was restarted on Cardizem drip and amiodarone drip by cardiology. He is hypotensive and did receive fluid bolus. He did have a low-grade temp of 100.2 and white count did increase from 16-45. He is on IV antibiotics for sepsis and infection of the left leg. Patient is also on a nonrebreather. He is followed by multiple consultants. Surgical consult was placed due to fecal emesis. PAST MEDICAL HISTORY: Atrial Fibrillation, Coronary Artery Disease (CAD), COPD, Hypertension, peripheral vascular disease, depression, paroxysmal atrial fibrillation, COPD, generalized chronic pain, history of multiple skeletal fractures including cervical fracture, history of complicated diverticulitis with bowel resection and colostomy and Karen pouch, history of bladder injury during surgery that required surgical repair, history of Raynaud's disease, PAST SURGICAL HISTORY: See list. MEDICATIONS: See list. ALLERGIES: See list. SOCIAL HISTORY: No illicit drug use. REVIEW OF SYSTEMS: CONSTITUTIONAL: Denies fever or chills. HEENT: Denies blurred vision, vision changes, or eye pain. Denies hemoptysis CARDIOVASCULAR: Denies chest pain or pressure. RESPIRATORY: No shortness of breath. GASTROINTESTINAL: See HPI for pertinent findings HEMATOLOGIC: Denies bleeding disorders. GENITOURINARY: Denies any blood in urine or increased urinary frequency. SKIN: Denies pruitis. Denies rash. PHYSICAL EXAM: VITAL SIGNS: Reviewed GENERAL: Well-developed in no acute distress. HEENT: No sclera icterus. Extraocular movements grossly intact. Moist buccal mucosa. Head is atraumatic, normocephalic. No nasal drainage. ABDOMEN: Soft. Nondistended. Ostomy on the left abdomen with stool present. NEUROLOGIC: Alert and oriented. Cranial nerves II through XII grossly intact. LABORATORY DATA: WBC elevated at 45.7 hemoglobin 10.8 platelets 755 Sodium 134 potassium 4.0 creatinine 1.96 Lactic acid 4.5 IMAGING: Abdominal x-ray NG tube overlying the left upper quadrant likely within the gastric body correlate for bowel obstruction. Numerous dilated small bowel loops are seen. Left lower lobe infiltrate ASSESSMENT: 1. Small bowel obstruction with abdominal pain and emesis PLAN: -NG tube placed for decompression -Keep patient nothing by mouth -Continue IV fluid -Unable to order a computed tomography scan of the abdomen and pelvis this morning due to patient being hemodynamically unstable. We'll try to obtain CAT scan when patient is more stable. -Keep Plavix on hold -Further recommendations forthcoming per surgeon Thank you for this consultation Physician Smoking Pipe Coater note has been reviewed by physician. Signing provider agrees with the documented findings, assessment, and plan of care. Past Medical History Past Medical History: Atrial Fibrillation, Coronary Artery Disease (CAD), COPD, Hypertension Additional Past Medical History / Comment(s): Coronary artery disease, peripheral vascular disease, depression, paroxysmal atrial fibrillation, COPD, generalized chronic pain, history of multiple skeletal fractures including cervical fracture, history of complicated diverticulitis with bowel resection and colostomy and Karen pouch, history of bladder injury during surgery that required surgical repair, history of Raynaud's disease, Last Myocardial Infarction Date:: wn History of Any Multi-Drug Resistant Organisms: MRSA Year Discovered:: 04/06/17 MRSA Confirmed at [facility] MDRO Source:: Abdomen Past Surgical History: Bowel Resection, Heart Catheterization With Stent Additional Past Surgical History / Comment(s): 11/2017 PCI with stent at [facility], colonoscopies, bowel resection with ileostomy, cystoscopy for bladder repair, abdominal abscess with surgical intervention, R inguinal hernia repair with mesh, R knee arthroscopy, toe amputation, colostomy Past Anesthesia/Blood Transfusion Reactions: No Reported Reaction Date of Last Stent Placement:: 12/06/17 Past Psychological History: Depression Smoking Status: Former smoker Past Alcohol Use History: Daily Past Drug Use History: Prescription Drug Abuse - Past Family History Father Family Medical History: Myocardial Infarction ([place]) Additional Family Medical History / Comment(s): Father had 3 MIs, he had his first one at the age of 50 yrs. He at the age of 85 yrs. Mother Family Medical History: No Reported History Additional Family Medical History / Comment(s): Mother was healthy and lived to be 94 or 95 yrs old. Medications and Allergies Home Medications Medication Instructions Recorded Confirmed Type Acetaminophen [Tylenol] 650 mg PO Q4H PRN 01/13/21 01/13/21 History Artificial Tears-Hypromellose 1 drop RIGHT EYE Q6H PRN 01/13/21 01/13/21 History [Artificial Tear Drops] Aspirin EC [Ecotrin Low Dose] 81 mg PO DAILY 01/13/21 01/13/21 History Clopidogrel [Plavix] 75 mg PO DAILY 01/13/21 01/13/21 History Diltiazem HCl [Cardizem LA] 180 mg PO DAILY 01/13/21 01/13/21 History Docusate [Colace] 100 mg PO DAILY 01/13/21 01/13/21 History Fluticasone/Vilanterol [Breo 1 puff INHALATION RT-DAILY 01/13/21 01/13/21 History Ellipta 100-25 Mcg Inhaler] Gabapentin 300 mg PO Q8H 01/13/21 01/13/21 History Heparin Sodium,Porcine [Heparin 5,000 unit SQ Q8HR 01/13/21 01/13/21 History Sodium] Lidocaine 4% Patch 1 patch TRANSDERM DAILY 01/13/21 01/13/21 History Metoprolol Tartrate [Lopressor] 100 mg PO Q8H 01/13/21 01/13/21 History Morphine Sulfate Ir [MSIR] 30 mg PO Q6HR 01/13/21 01/13/21 History Multivitamins, Thera [Multivitamin 1 tab PO DAILY 01/13/21 01/13/21 History (formulary)] Omeprazole 20 mg PO DAILY 01/13/21 01/13/21 History Tamsulosin HCl [Flomax] 0.4 mg PO DAILY 01/13/21 01/13/21 History Allergies Allergy/AdvReac Type Severity Reaction Status Date / Time No Known Allergies Allergy Verified 01/13/21 08:52 Surgical - Exam Vital Signs Temp Pulse Resp BP Pulse Ox 100.0 F H 129 H 18 140/79 94 L 01/13/21 05:40 01/13/21 05:40 01/13/21 05:40 01/13/21 05:40 01/13/21 05:40 Results - Labs 01/16/21 11:46 01/16/21 08:33 Abnormal Lab Results - Last 24 Hours (Table) 01/16/21 01/16/21 01/16/21 Range/Units 06:32 06:32 06:32 WBC 45.7 H (3.8-10.6) k/uL RBC 3.55 L (4.30-5.90) m/uL Hgb 10.8 L (13.0-17.5) gm/dL Hct 35.6 L (39.0-53.0) % MCV 100.3 H (80.0-100.0) fL MCHC 30.3 L (31.0-37.0) g/dL Plt Count 755 H (150-450) k/uL Neutrophils # (Manual) 42.90 H (1.3-7.7) k/uL Lymphocytes # (Manual) 0.46 L (1.0-4.8) k/uL Monocytes # (Manual) 2.29 H (0-1.0) k/uL Myelocytes # (Manual) 0.46 H (0) k/uL APTT 34.5 H (22.0-30.0) sec Sodium 134 L (137-145) mmol/L Chloride 96 L (98-107) mmol/L Carbon Dioxide (22-30) mmol/L BUN 22 H (9-20) mg/dL Creatinine 1.96 H (0.66-1.25) mg/dL Plasma Lactic Acid Mj (0.7-2.0) mmol/L Magnesium (1.6-2.3) mg/dL Albumin (3.5-5.0) g/dL 01/16/21 01/16/21 01/16/21 Range/Units 08:33 08:33 08:33 WBC 51.1 H* (3.8-10.6) k/uL RBC 3.58 L (4.30-5.90) m/uL Hgb 11.0 L (13.0-17.5) gm/dL Hct 35.2 L (39.0-53.0) % MCV (80.0-100.0) fL MCHC (31.0-37.0) g/dL Plt Count 765 H (150-450) k/uL Neutrophils # (Manual) 49.00 H (1.3-7.7) k/uL Lymphocytes # (Manual) 0.51 L (1.0-4.8) k/uL Monocytes # (Manual) 1.53 H (0-1.0) k/uL Myelocytes # (Manual) 0.51 H (0) k/uL APTT (22.0-30.0) sec Sodium 134 L (137-145) mmol/L Chloride 97 L (98-107) mmol/L Carbon Dioxide 20 L (22-30) mmol/L BUN 22 H (9-20) mg/dL Creatinine 2.04 H (0.66-1.25) mg/dL Plasma Lactic Acid Mj 4.5 H* (0.7-2.0) mmol/L Magnesium 1.3 L (1.6-2.3) mg/dL Albumin 3.0 L (3.5-5.0) g/dL Microbiology - Last 24 Hours (Table) 01/13/21 06:45 Blood Culture - Preliminary Blood No Growth after 72 hours 01/13/21 06:30 Blood Culture - Preliminary Blood No Growth after 72 hours 01/13/21 15:47 Urine Culture - Final Urine,Clean Catch Diabetes panel 01/16/21 01/16/21 Range/Units 06:32 08:33 Sodium 134 L 134 L (137-145) mmol/L Potassium 4.0 4.0 (3.5-5.1) mmol/L Chloride 96 L 97 L (98-107) mmol/L Carbon Dioxide 23 20 L (22-30) mmol/L BUN 22 H 22 H (9-20) mg/dL Creatinine 1.96 H 2.04 H (0.66-1.25) mg/dL Glucose 79 87 (74-99) mg/dL Calcium 8.7 8.7 (8.4-10.2) mg/dL AST 22 (17-59) U/L ALT 13 (4-49) U/L Alkaline Phosphatase 77 (38-126) U/L Total Protein 6.7 (6.3-8.2) g/dL Albumin 3.0 L (3.5-5.0) g/dL Calcium panel 01/16/21 01/16/21 Range/Units 06:32 08:33 Calcium 8.7 8.7 (8.4-10.2) mg/dL Albumin 3.0 L (3.5-5.0) g/dL Pituitary panel 01/16/21 01/16/21 Range/Units 06:32 08:33 Sodium 134 L 134 L (137-145) mmol/L Potassium 4.0 4.0 (3.5-5.1) mmol/L Chloride 96 L 97 L (98-107) mmol/L Carbon Dioxide 23 20 L (22-30) mmol/L BUN 22 H 22 H (9-20) mg/dL Creatinine 1.96 H 2.04 H (0.66-1.25) mg/dL Glucose 79 87 (74-99) mg/dL Calcium 8.7 8.7 (8.4-10.2) mg/dL Adrenal panel 01/16/21 01/16/21 Range/Units 06:32 08:33 Sodium 134 L 134 L (137-145) mmol/L Potassium 4.0 4.0 (3.5-5.1) mmol/L Chloride 96 L 97 L (98-107) mmol/L Carbon Dioxide 23 20 L (22-30) mmol/L BUN 22 H 22 H (9-20) mg/dL Creatinine 1.96 H 2.04 H (0.66-1.25) mg/dL Glucose 79 87 (74-99) mg/dL Calcium 8.7 8.7 (8.4-10.2) mg/dL Total Bilirubin 0.6 (0.2-1.3) mg/dL AST 22 (17-59) U/L ALT 13 (4-49) U/L Alkaline Phosphatase 77 (38-126) U/L Total Protein 6.7 (6.3-8.2) g/dL Albumin 3.0 L (3.5-5.0) g/dL
--- NOTE | 2021-01-16 11:29 | P.CNPUL ---
History of Present Illness Consult date: 01/16/21 Reason for consult: dyspnea, hypoxemia, pneumonia History of present illness: 65-year-old male patient, comes into the hospital because of fever and difficulty breathing of 2 days' duration. Apparently there was a very poor historian. Apparently he also had a left foot transmetatarsal amputation and this was done [facility] approximately 3 weeks ago. He also mentioned he had a previous time bypass surgery. The patient also has other comorbid conditions including chronic atrial fibrillation, coronary artery disease, per ipheral vascular disease, COPD, complicated diverticulitis and previous bowel resection and colostomy and Malcolm's pouch. The patient came to us from the [facility]. The patient was apparently having worsening shortness of breath. He was found to be in A. fib RVR at time of admission. Time of admission, he was febrile with a temperature of 100.3 and the patient was also tachycardic with a heart rate in the 120s and pulse ox was 94% on room air oxygen. Initial white cell count was at 5.3 and the patient had a creatinine of 1.32 with a BUN of 17. Overnight events and was negative. UA was positive for moderate amount of leukocyte esterase with 30 WBCs. Chest x-ray showed moderate bilateral pleural effusion. EKG was consistent with A. fib/RVR. This morning, we got contacted by the medical team as the patient's condition is gotten worse. The patient has developed worsening in A. fib RVR, hypotension with a systolic blood pressure in the mid 70s, pulse ox of 95-99% 15 L of Oxymizer nasal cannula, lactic acid level of 4.5, and a white cell count of 51.1. The patient received 500 mL bolus and currently the patient is running on normal saline at the rate of 100 mL an hour. Based on all this, in ICU transfer was requested. The patient's cultures including urine and blood cultures during this current admission has been negative. The patient is covered with a ntibiotics and the patient is receiving IV Zosyn as a broad-spectrum antibiotic coverage. Terms of her his adjuvant fibrillation, the patient had been placed on amiodarone drip which is running at 0.5 mg per minute and the patient is on metoprolol 100 mg every 8 hours for rate control and Cardizem drip at 5 mg per hour for rate control. No antiplatelet has been offered that the patient has previous history of GI bleed. With that spoken, the patient developed an acute kidney injury. Creatinine is up to 2.04 from a normal baseline. At the time of my evaluation, the patient had some mild abdominal distention. He had some mild abdominal tenderness there was diffuse. Absent bowel sounds. Orogastric tube has been inserted and the patient has drained approximately 600 mL of gastric material. Nevertheless, there is some yellowish stool like material collecting in his colostomy bag. At the same time, the patient was inspected for his left lower extremity. There is the left femoral pulse. There are nolberto in the left femoral area and in the left lower extremity thigh area which indicates a recent vascular bypass surgery performed probably a fem-pop bypass surgery. At the same time, there was Doppler signals only in the popliteal artery, absent pulses in the left lower extremity, the left foot shows evidence of a transmetatarsal amputation and the surgical wound site is necrotic and gangrenous. There is also necrosis extending in the dorsal aspect of the left foot, the foot itself is cold and there are no pulses in the posterior tibialis and dorsalis pedis area. The area is red and the medial aspect of the malleolus Review of Systems She is a poor historian. Patient was having labored breathing and the patient was in A. fib RVR at time of my evaluation. CONSTITUTIONAL: Denies fever or chills. HEENT: Denies blurred vision, vision changes, or eye pain. Denies hemoptysis CARDIOVASCULAR: Denies chest pain. Denies orthopnea. Denies PND. Denies palpitations RESPIRATORY: . The patient is having shortness of breath and has a congested cough. GASTROINTESTINAL: Increased abdominal pain and emesis and the patient has an NG tube in place for now. HEMATOLOGIC: Denies bleeding disorders. GENITOURINARY: Denies any blood in urine. SKIN: The patient has gangrenous tissue involving the transmetatarsal surgical wound site. There is also gangrene extending to the dorsal aspect of the left foot. Medially, there is 2 areas of surgical wound sites, one above the malleolus on the left and otherwise in the left mid thigh. The surgical wound site In the malleolus is wet and there is some limited drainage. Past Medical History Past Medical History: Atrial Fibrillation, Coronary Artery Disease (CAD), COPD, Hypertension Additional Past Medical History / Comment(s): Coronary artery disease, peripheral vascular disease, depression, paroxysmal atrial fibrillation, COPD, g eneralized chronic pain, history of multiple skeletal fractures including cervical fracture, history of complicated diverticulitis with bowel resection and colostomy and Karen pouch, history of bladder injury during surgery that required surgical repair, history of Raynaud's disease, Last Myocardial Infarction Date:: uknown History of Any Multi-Drug Resistant Organisms: MRSA Date of last positivie culture/infection: 04/06/17 MRSA Confirmed at [facility] MDRO Source:: Abdomen Past Surgical History: Bowel Resection, Heart Catheterization With Stent Additional Past Surgical History / Comment(s): 11/2017 PCI with stent at [facility], colonoscopies, bowel resection with ileostomy, cystoscopy for bladder repair, abdominal abscess with surgical intervention, R inguinal hernia repair with mesh, R knee arthroscopy, toe amputation, colostomy Past Anesthesia/Blood Transfusion Reactions: No Reported Reaction Date of Last Stent Placement:: 12/06/17 Past Psychological History: Depression Smoking Status: Former smoker Past Alcohol Use History: Daily Past Drug Use History: Prescription Drug Abuse - Past Family History Father Family Medical History: Myocardial Infarction (OR) Additional Family Medical History / Comment(s): Father had 3 MIs, he had his first one at the age of 50 yrs. He at the age of 85 yrs. Mother Family Medical History: No Reported History Additional Family Medical History / Comment(s): Mother was healthy and lived to be 94 or 95 yrs old. Medications and Allergies Home Medications Medication Instructions Recorded Confirmed Type Acetaminophen [Tylenol] 650 mg PO Q4H PRN 01/13/21 01/13/21 History Artificial Tears-Hypromellose 1 drop RIGHT EYE Q6H PRN 01/13/21 01/13/21 History [Artificial Tear Drops] Aspirin EC [Ecotrin Low Dose] 81 mg PO DAILY 01/13/21 01/13/21 History Clopidogrel [Plavix] 75 mg PO DAILY 01/13/21 01/13/21 History Diltiazem HCl [Cardizem LA] 180 mg PO DAILY 01/13/21 01/13/21 History Docusate [Colace] 100 mg PO DAILY 01/13/21 01/13/21 History Fluticasone/Vilanterol [Breo 1 puff INHALATION RT-DAILY 01/13/21 01/13/21 History Ellipta 100-25 Mcg Inhaler] Gabapentin 300 mg PO Q8H 01/13/21 01/13/21 History Heparin Sodium,Porcine [Heparin 5,000 unit SQ Q8HR 01/13/21 01/13/21 History Sodium] Lidocaine 4% Patch 1 patch TRANSDERM DAILY 01/13/21 01/13/21 History Metoprolol Tartrate [Lopressor] 100 mg PO Q8H 01/13/21 01/13/21 History Morphine Sulfate Ir [MSIR] 30 mg PO Q6HR 01/13/21 01/13/21 History Multivitamins, Thera [Multivitamin 1 tab PO DAILY 01/13/21 01/13/21 History (formulary)] Omeprazole 20 mg PO DAILY 01/13/21 01/13/21 History Tamsulosin HCl [Flomax] 0.4 mg PO DAILY 01/13/21 01/13/21 History Allergies Allergy/AdvReac Type Severity Reaction Status Date / Time No Known Allergies Allergy Verified 01/13/21 08:52 Physical Exam Vitals: Vital Signs Temp Pulse Resp BP BP Pulse Ox 01/16/21 10:48 88/53 01/16/21 10:46 128 H 77/48 01/16/21 10:41 88/51 01/16/21 10:33 109 H 76/50 98 01/16/21 10:26 68/50 01/16/21 10:23 99.6 F 133 H 26 H 73/48 99 01/16/21 10:07 78/52 01/16/21 10:06 116 H 74/51 01/16/21 09:55 105 H 24 81/53 99 01/16/21 09:40 98 22 95/52 01/16/21 09:33 103 H 89/52 01/16/21 09:31 116 H 20 91/55 01/16/21 09:27 133 H 20 80/50 93 L 01/16/21 09:21 133 H 86/49 01/16/21 09:04 120 H 36 H 90/55 95 01/16/21 08:50 150 H 94/53 01/16/21 08:34 134 H 30 H 92/52 91 L 01/16/21 08:17 135 H 36 H 110/60 90 L 01/16/21 07:58 98/56 01/16/21 07:47 100.2 F H 154 H 32 H 94/55 01/16/21 06:40 113/61 01/16/21 03:16 98.4 F 95 18 101/52 96 01/16/21 01:38 18 01/16/21 00:00 98 F 92 18 116/69 96 01/15/21 20:00 98.6 F 95 16 112/70 94 L 01/15/21 15:10 98.7 F 82 16 102/55 94 L 01/15/21 14:00 81 01/15/21 12:00 81 18 101/73 96 Intake and Output 01/15/21 01/16/21 01/16/21 22:59 06:59 14:59 Intake Total 240 10 50 Output Total 1550 Balance 240 10 -1500 Intake: IV 10 50 Invasive Line 4 10 20 Invasive Line 5 20 Invasive Line 6 10 Oral 240 Output: Gastric Drainage 600 Urine 850 Uretheral (Pollack) 850 Stool 100 Other: Voiding Method Urinal Urinal # Voids 1 Weight 63.8 kg GENERAL: Well-developed in no acute distress. HEENT: Head is normocephalic. Pupils are equal, round. Sclerae anicteric. Mucous membranes of the mouth are moist. Neck supple. No JVD or thyromegaly LUNGS: Respirations even and unlabored. Lungs essentially clear to auscultation bilaterally. HEART: tachycardic. Irregular rate and rhythm. S1 and S2 heard. ABDOMEN: Soft. Nondistended. Nontender. EXTREMITIES: Left toe amputations noted. Patient with necrotic tissue to LILLIAN. No clubbing or cyanosis. Peripheral pulses intact. No lower extremity edema NEUROLOGIC: Awake and alert. Oriented x 3. Results Appearance the patient is tachypneic, awake and alert, currently on 100% on a beta facemask and the patient also has an NG tube in place. His pulse ox currently is in the low 90s. Head exam was generally normal. There was no scleral icterus or corneal arcus. Mucous membranes were moist. Neck was supple and without jugular venous distension, thyromegaly, or carotid bruits. Carotids were easily palpable bilaterally. There was no adenopathy. Lungs sounds are diminished in the patient's crackles in the mid and lower lung field bilaterally Cardiac exam revealed the PMI to be normally situated and sized. The is irregul ar and the patient is an 80 fibrillation with rapid ventricular response at this point in time. The first and second heart sounds were normal and physiologic splitting of the second heart sound was noted. There were no murmurs, rubs, clicks, or gallops. Abdomen slightly distended. There is direct tenderness. No rebound tensile guarding. Bowel sounds absent. The colostomy site is viable and there is some stool material collecting and abdominal colostomy bag. No organomegaly identified. Extremities the patient has scars of previous vascular bypass surgery and the nolberto are present in the left inguinal area, left medial thigh and left foot just superior to the malleolus. There is some wetness and drainage coming from the foot incision. There is also dry gangrene at the site of the metatarsal or transmetatarsal amputation.There are no Doppler signals in the dorsalis pedis and radial tibialis. There is obviously guarded and the popliteal area and there is palpable pulses in the femoral area - Laboratory Findings CBC and BMP: 01/16/21 08:33 01/16/21 08:33 PT/INR, D-dimer PT 11.4 sec (9.0-12.0) 01/13/21 06:19 INR 1.1 (<1.2) 01/13/21 06:19 Abnormal lab findings: Abnormal Labs 01/13/21 01/13/21 01/13/21 06:19 06:19 15:47 WBC 12.3 H RBC 2.85 L Hgb 8.9 L Hct 28.0 L MCV MCHC Plt Count Neutrophils # 10.1 H Neutrophils # (Manual) Lymphocytes # 0.7 L Lymphocytes # (Manual) Monocytes # 1.3 H Monocytes # (Manual) Myelocytes # (Manual) APTT Sodium 132 L Chloride Carbon Dioxide 21 L BUN Creatinine 1.32 H Glucose Plasma Lactic Acid Mj Calcium 8.1 L Magnesium Total Protein 5.6 L Albumin 2.4 L Ur Leukocyte Esterase Moderate H Urine WBC 30 H 01/14/21 01/14/21 01/14/21 02:17 02:17 02:17 WBC RBC 3.04 L Hgb 9.4 L Hct 29.7 L MCV MCHC Plt Count 526 H Neutrophils # Neutrophils # (Manual) Lymphocytes # Lymphocytes # (Manual) Monocytes # Monocytes # (Manual) Myelocytes # (Manual) APTT 39.3 H Sodium 131 L Chloride Carbon Dioxide BUN Creatinine 1.26 H Glucose Plasma Lactic Acid Mj Calcium 8.2 L Magnesium Total Protein 5.8 L Albumin 2.5 L Ur Leukocyte Esterase Urine WBC 01/14/21 01/14/21 01/15/21 09:38 19:18 03:06 WBC RBC Hgb Hct MCV MCHC Plt Count Neutrophils # Neutrophils # (Manual) Lymphocytes # Lymphocytes # (Manual) Monocytes # Monocytes # (Manual) Myelocytes # (Manual) APTT 42.4 H 48.1 H 46.5 H Sodium Chloride Carbon Dioxide BUN Creatinine Glucose Plasma Lactic Acid Mj Calcium Magnesium Total Protein Albumin Ur Leukocyte Esterase Urine WBC 01/15/21 01/15/21 01/16/21 03:06 03:06 06:32 WBC 16.1 H RBC 3.16 L Hgb 9.9 L Hct 31.4 L MCV MCHC Plt Count 571 H Neutrophils # 14.1 H Neutrophils # (Manual) Lymphocytes # 0.5 L Lymphocytes # (Manual) Monocytes # Monocytes # (Manual) Myelocytes # (Manual) APTT Sodium 131 L 134 L Chloride 96 L Carbon Dioxide BUN 22 H Creatinine 1.50 H 1.96 H Glucose 109 H Plasma Lactic Acid Mj Calcium 8.2 L Magnesium Total Protein Albumin Ur Leukocyte Esterase Urine WBC 01/16/21 01/16/21 01/16/21 06:32 06:32 08:33 WBC 45.7 H RBC 3.55 L Hgb 10.8 L Hct 35.6 L MCV 100.3 H MCHC 30.3 L Plt Count 755 H Neutrophils # Neutrophils # (Manual) 42.90 H Lymphocytes # Lymphocytes # (Manual) 0.46 L Monocytes # Monocytes # (Manual) 2.29 H Myelocytes # (Manual) 0.46 H APTT 34.5 H Sodium Chloride Carbon Dioxide BUN Creatinine Glucose Plasma Lactic Acid Mj 4.5 H* Calcium Magnesium Total Protein Albumin Ur Leukocyte Esterase Urine WBC 01/16/21 01/16/21 08:33 08:33 WBC 51.1 H* RBC 3.58 L Hgb 11.0 L Hct 35.2 L MCV MCHC Plt Count 765 H Neutrophils # Neutrophils # (Manual) 49.00 H Lymphocytes # Lymphocytes # (Manual) 0.51 L Monocytes # Monocytes # (Manual) 1.53 H Myelocytes # (Manual) 0.51 H APTT Sodium 134 L Chloride 97 L Carbon Dioxide 20 L BUN 22 H Creatinine 2.04 H Glucose Plasma Lactic Acid Mj Calcium Magnesium 1.3 L Total Protein Albumin 3.0 L Ur Leukocyte Esterase Urine WBC - Diagnostic Findings Chest x-ray: image reviewed Assessment and Plan Plan: 1 acute septic shock with fever and leukocytosis and hypotension. The patient has a gangrene along the lines of the transmetatarsal amputation. The tissue is necrotic and there is some wetness along the medial surgical wound site. The necrosis has extended proximally involving the dorsal aspect of the left foot. Left foot itself is erythematous. At the same time the patient has developed abdominal pain, evidence of small bowel obstruction on the septum of the abdomen. NG tube is in place and the patient has drained approximately 600 disease of gastric material immediately after the insertion of an NG tube. No evidence of pneumoperitoneum. Consider an acute abdomen. Consider acute mesenteric ischemia in the setting of A. fib RVR with lactic acidosis and leukocytosis. Colostomy site is viable at this point in time. There is stool acutely bleeding in the colostomy bag. It is also likely that the patient's acute decompensation is related to the acute vascular insult to his left lower extremity as there are no popliteal pulses or lower extremity pulses and there is development of a dry gangrene with possibly acute ischemic insult. Vascular surgery and general surgery will be consulted on the case. 2 acute hypotension, likely secondary to sepsis, systolic blood pressures the mid 70s, the patient was given a liter of bolus of normal saline and his systolic blood pressures up to the 90 3 acute leukocytosis 4 acute lactic acidosis 5 acute kidney injury. 6 acute hypoxic respiratory failure with possible aspiration in addition to chronic bilateral pleural effusions 7 peripheral vascular disease with recent transmetatarsal amputation of the left foot and the patient has dry gangrene 8 coronary artery disease 9 A. fib with RVR currently on a combination of amiodarone drip, Cardizem drip or rate control 10. Abdominal incision suspected bowel obstruction. NG tube is in place and a flat film of the abdomen showed numerous dilated small bowels related to possibility of bowel obstruction 11 history of depression 12 COPD 13 history Diverticulitis requiring bowel resection and colectomy and diverting colostomy with Malcolm's pouch 14 history of bladder injury, iatrogenic in nature and the patient had a surgical repair 15 history of Raynaud's disease 16 degenerative arthritis plan We'll status Plan Extremely critical condition Transferred to the ICU Given 1 L of bolus of normal saline. We'll give another liter right now and maintain him on 100 mL an hour of normal saline Keep the NG tube in place Obtain a CAT scan of the abdomen and pelvis with no contrast Obtain a general surgical consultation Continue IV Zosyn Monitor lactic acid levels Continue amiodarone drip for rate control in regards to his atrial fibrillation Put the patient IV heparin due to concern of an acute mesenteric ischemia and acute vascular insult to the left lower extremity being a thrombotic or embolic Immediate vascular surgery evaluation and consultation Keep the patient on the percent nonrebreather facemask Monitor white cell count Monitor the urine output and keep the Pollack catheter in place Extremities critical condition with high risk of mortality based on the above-mentioned comorbidities. We'll continue to follow.
[2021-01-16] MEDS: SYMBICORT 80-4.5 MCG INHALER INHALATION SCH ×2 (11:30→11:33)
[2021-01-16] MEDS: PIPERACILLIN-TAZOBACTAM 3.375 GM in SODIUM CHLORIDE 0.9% 100 ML IVPB SCH ×2 (11:49→18:19)
[2021-01-16 12:03] LABS: Appearance,Urine Turbid (Clear); Bacteria,Urine Moderate /hpf; Bilirubin,Urine Negative (Negative); Blood,Urine Moderate (Negative); Color,Urine Yellow; Glucose,Urine (UA) Negative (Negative); Ketones,Urine Negative (Negative); Leukocyte Esterase,Urine Large (Negative); Nitrite,Urine Negative (Negative); Protein,Urine 1+ (Negative); RBC,Urine 49 /hpf (0-5); Squamous Epithelial Cell,Urine 4 /hpf (0-4); Urobilinogen,Urine <2.0 mg/dL (<2.0); WBC,Urine >182 /hpf (0-5)
[2021-01-16 12:22] LABS: Glucose,Whole Blood 92 mg/dL (75-99)
[2021-01-16 12:23] LABS: HCT 28.9 % (39.0-53.0); Hypochromasia Slight; MCH 30.4 pg (25.0-35.0); MCHC 30.9 g/dL (31.0-37.0); MCV 98.3 fL (80.0-100.0); Macrocytosis Slight; Mean Platelet Volume 7.2; Platelet Count 524 k/uL (150-450); RBC 2.94 m/uL (4.30-5.90); RDW 15.3 % (11.5-15.5); WBC 39.8 k/uL (3.8-10.6)
[2021-01-16 12:34] LABS: HGB 8.9 gm/dL (13.0-17.5)
[2021-01-16 12:36] LABS: INR 1.2 (<1.2); Partial Thromboplastin Time 34.7 sec (22.0-30.0); Prothrombin Time 12.4 sec (9.0-12.0)
--- NOTE | 2021-01-16 12:38 | P.PN ---
Subjective Progress Note Date: 01/16/21 HISTORY OF PRESENT ILLNESS: This is a 65-year-old male with a past medical history significant for paroxysmal atrial fibrillation not on anticoagulation secondary to GI bleed, coronary artery disease with previous stenting to the RCA in 2018, nicotine dependence, and recent vascular surgery to left lower extremity. Patient does not follow with a hogshead hand. We have been asked to see the patient in consultation for afib and CHF. Patient examined at the bedside. Patient dayton iglesias from [facility] due to chest pain. He states he recently underwent surgery to his left lower extremity at [facility] a few weeks ago. At the time of examination, the patient denies chest pain or pressure. He is in afib with uncontrolled ventricular rates. He is currently on a Cardizem drip and a heparin drip. BNP elevated over 12,000. He was started on IV lasix. He currently denies SOB. Chest XR revealed moderate bilateral pleural effusions. echocardiogram completed revealing ejection fraction 40-45%. Mild mitral regurgitation. Mild tricuspid regurgitation. 01/15/2021 Patient examined this morning at the bedside. Patient denies chest pain or pressure. He has converted to sinus mechanism with a heart rate in the 80s. 01/16/2021 Patient went into afib with RVR overnight. He was started on a Cardizem drip which was infusing at 10mg/hour this morning. Patient hypotensive with SBP 70- 90s. White count 51.1 today, up from 16.1 yesterday. Patient was complaining of abdominal pain. Lactic acid 4.5. An NG tube was inserted this morning with 600 mL of coffee-ground emesis per nursing. PHYSICAL EXAM: VITAL SIGNS: Reviewed. GENERAL: Well-developed in no acute distress. HEENT: Head is normocephalic. Pupils are equal, round. Sclerae anicteric. Mucous membranes of the mouth are moist. Neck supple. No JVD or thyromegaly LUNGS: Respirations even and unlabored. Lungs essentially clear to auscultation bilaterally. HEART: tachycardic. Irregular rate and rhythm. S1 and S2 heard. EXTREMITIES: Left toe amputations noted. Patient with necrotic tissue to LILLIAN. No clubbing or cyanosis. ASSESSMENT: Chest pain, troponin negative x 3 Acute diastolic congestive heart failure Paroxysmal atrial fibrillation not on anticoagulation secondary to GI bleed Coronary artery disease with previous stenting to the RCA in 2018 Recent surgery to left lower extremity Nicotine dependence Hypotension Small bowel obstruction Leukocytosis Lactic acidosis PLAN: No nursing home anticoagulation as patient has a hx of GIB. Discontinue IV Cardizem secondary to hypotension Discontinue oral amio. Begin IV amio bolus and drip per protocol Continue telemetry monitoring Patient to receive IV fluid bolus General surgery consulted Patient to be transferred to ICU for closer monitoring Further recommendations pending patient's course Nurse practitioner note has been reviewed by physician. Signing provider agrees with the documented findings, assessment, and plan of care. Objective - Vital Signs Vital signs: Vital Signs Temp 99.6 F 01/16/21 10:23 Pulse 128 H 01/16/21 10:46 Resp 26 H 01/16/21 10:23 BP 88/53 01/16/21 10:48 Pulse Ox 98 01/16/21 10:33 Intake & Output 01/15/21 01/16/21 01/16/21 18:59 06:59 18:59 Intake Total 240 10 50 Output Total 500 1550 Balance -260 10 -1500 Weight 63.8 kg 63.8 kg Intake: IV 10 50 Invasive Line 4 10 20 Invasive Line 5 20 Invasive Line 6 10 Oral 240 Output: Gastric Drainage 600 Urine 500 850 Uretheral (Pollack) 850 Stool 100 Other: Voiding Method Urinal Urinal # Voids 1 - Labs CBC & Chem 7: 01/16/21 08:33 01/16/21 08:33 Labs: Abnormal Lab Results - Last 24 Hours (Table) 01/16/21 01/16/21 01/16/21 Range/Units 06:32 06:32 06:32 WBC 45.7 H (3.8-10.6) k/uL RBC 3.55 L (4.30-5.90) m/uL Hgb 10.8 L (13.0-17.5) gm/dL Hct 35.6 L (39.0-53.0) % MCV 100.3 H (80.0-100.0) fL MCHC 30.3 L (31.0-37.0) g/dL Plt Count 755 H (150-450) k/uL Neutrophils # (Manual) 42.90 H (1.3-7.7) k/uL Lymphocytes # (Manual) 0.46 L (1.0-4.8) k/uL Monocytes # (Manual) 2.29 H (0-1.0) k/uL Myelocytes # (Manual) 0.46 H (0) k/uL APTT 34.5 H (22.0-30.0) sec Sodium 134 L (137-145) mmol/L Chloride 96 L (98-107) mmol/L Carbon Dioxide (22-30) mmol/L BUN 22 H (9-20) mg/dL Creatinine 1.96 H (0.66-1.25) mg/dL Plasma Lactic Acid Mj (0.7-2.0) mmol/L Magnesium (1.6-2.3) mg/dL Albumin (3.5-5.0) g/dL Urine Protein (Negative) Urine Blood (Negative) Ur Leukocyte Esterase (Negative) Urine RBC (0-5) /hpf Urine WBC (0-5) /hpf Urine WBC Clumps (None) /hpf Urine Bacteria (None) /hpf 01/16/21 01/16/21 01/16/21 Range/Units 08:33 08:33 08:33 WBC 51.1 H* (3.8-10.6) k/uL RBC 3.58 L (4.30-5.90) m/uL Hgb 11.0 L (13.0-17.5) gm/dL Hct 35.2 L (39.0-53.0) % MCV (80.0-100.0) fL MCHC (31.0-37.0) g/dL Plt Count 765 H (150-450) k/uL Neutrophils # (Manual) 49.00 H (1.3-7.7) k/uL Lymphocytes # (Manual) 0.51 L (1.0-4.8) k/uL Monocytes # (Manual) 1.53 H (0-1.0) k/uL Myelocytes # (Manual) 0.51 H (0) k/uL APTT (22.0-30.0) sec Sodium 134 L (137-145) mmol/L Chloride 97 L (98-107) mmol/L Carbon Dioxide 20 L (22-30) mmol/L BUN 22 H (9-20) mg/dL Creatinine 2.04 H (0.66-1.25) mg/dL Plasma Lactic Acid Mj 4.5 H* (0.7-2.0) mmol/L Magnesium 1.3 L (1.6-2.3) mg/dL Albumin 3.0 L (3.5-5.0) g/dL Urine Protein (Negative) Urine Blood (Negative) Ur Leukocyte Esterase (Negative) Urine RBC (0-5) /hpf Urine WBC (0-5) /hpf Urine WBC Clumps (None) /hpf Urine Bacteria (None) /hpf 01/16/21 Range/Units 10:22 WBC (3.8-10.6) k/uL RBC (4.30-5.90) m/uL Hgb (13.0-17.5) gm/dL Hct (39.0-53.0) % MCV (80.0-100.0) fL MCHC (31.0-37.0) g/dL Plt Count (150-450) k/uL Neutrophils # (Manual) (1.3-7.7) k/uL Lymphocytes # (Manual) (1.0-4.8) k/uL Monocytes # (Manual) (0-1.0) k/uL Myelocytes # (Manual) (0) k/uL APTT (22.0-30.0) sec Sodium (137-145) mmol/L Chloride (98-107) mmol/L Carbon Dioxide (22-30) mmol/L BUN (9-20) mg/dL Creatinine (0.66-1.25) mg/dL Plasma Lactic Acid Mj (0.7-2.0) mmol/L Magnesium (1.6-2.3) mg/dL Albumin (3.5-5.0) g/dL Urine Protein 1+ H (Negative) Urine Blood Moderate H (Negative) Ur Leukocyte Esterase Large H (Negative) Urine RBC 49 H (0-5) /hpf Urine WBC >182 H (0-5) /hpf Urine WBC Clumps Many H (None) /hpf Urine Bacteria Moderate H (None) /hpf Microbiology - Last 24 Hours (Table) 01/13/21 06:45 Blood Culture - Preliminary Blood No Growth after 72 hours 01/13/21 06:30 Blood Culture - Preliminary Blood No Growth after 72 hours 01/13/21 15:47 Urine Culture - Final Urine,Clean Catch
[2021-01-16] MEDS: HEPARIN SOD,PORK IN 0.45% NACL 25,000 UNIT in 0.45% NACL 1 250ML.BAG IV SCH (12:46)
[2021-01-16] MEDS: AMIODARONE 450 MG in DEXTROSE 5% IN WATER 250 ML IV SCH ×2 (14:45)
--- NOTE | 2021-01-16 15:23 | P.PN ---
Subjective Progress Note Date: 01/16/21 Patient was seen and examined on the medical floor with acute changes in the morning. Nursing states his respiratory status declined is on a nonrebreather. He had some cardiac changes well as hypotension and he was started on Cardizem as well as amiodarone drip. Had elevation in his WBC to 51.1 from 16.1 yesterday. Hemoglobin 8.9, platelet count 524,000 INR 1.2 sodium 134 potassium 4.0 BUN 22 creatinine 2.04 magnesium 1.3 Plasma lactic acid was 4.5 this morning with a repeat to 1.6. Apparently the patient also had a large amount of dark brown emesis morning. NG tube was placed. Currently is also on a heparin drip for his atrial fibrillation. Nursing is reporting no PT pulse or Doppler signal. Records from [facility] upper received today. Patient was apparently hospitalized recently for approximately 4 weeks duration with her discharge may be a week or so ago. At that time there is documentation that he was in hypovolemic shock related to an upper GI bleed and possible obstruction as well as history of atrial fibrillation. On 12/19/2020 it was reported that the patient had a 4.1 L coffee-ground emesis. On 12/24/20 he underwent a initial femoral to posterior tibialis bypass by Dr. Ayala for gangrene and peripheral arterial disease of the left lower extremity. Apparently dad occluded and they did a redo of the femoral to posterior tibial bypass with CryoVein on 01/04/2021 by . Patient also underwent on 12/29/2020 a transmetatarsal amputation of the left foot. Patient is with complaints of abdominal pain, but improved since NG tube placed. He states he has pain all over his body. No change in pain down the left lower extremity. He denies any chest pain, he has 15 L of oxygen per Non-rebreather. He had a max temp today of 100.2. Objective - Vital Signs Vital signs: Vital Signs Temp 99.6 F 01/16/21 10:23 Pulse 128 H 01/16/21 10:46 Resp 26 H 01/16/21 10:23 BP 88/53 01/16/21 10:48 Pulse Ox 98 01/16/21 10:33 Intake & Output 01/15/21 01/16/21 01/16/21 18:59 06:59 18:59 Intake Total 240 10 50 Output Total 500 1550 Balance -260 10 -1500 Weight 63.8 kg 63.8 kg Intake: IV 10 50 Invasive Line 4 10 20 Invasive Line 5 20 Invasive Line 6 10 Oral 240 Output: Gastric Drainage 600 Urine 500 850 Uretheral (Pollack) 850 Stool 100 Other: Voiding Method Urinal Urinal # Voids 1 - Exam General appearance: The patient is alert, oriented, appears in no acute distress. Nonrebreather in place. HET: Head is normocephalic and atraumatic. Neck: Supple without lymphadenopathy. Trachea midline. Abdomen: Soft, mild diffuse tenderness, no guarding or rigidity. Colostomy with brown stool. Extremities: Left TMA site well approximated with sutures. Left foot with ischemic changes at the TMA site which are dry, chronic. There are well approximated sutures as well as nolberto in the left lower extremity that are well approximated without any drainage or redness. Nonpalpable pulses at the bypass graft. Popliteal doppler signal. Palpable bilateral femoral pulses. Left groin with nolberto well approximated without any drainage. Neurological: No focal deficits. Alert and oriented 3. - Labs CBC & Chem 7: 01/16/21 11:46 01/16/21 08:33 Labs: Abnormal Lab Results - Last 24 Hours (Table) 01/16/21 01/16/21 01/16/21 Range/Units 06:32 06:32 06:32 WBC 45.7 H (3.8-10.6) k/uL RBC 3.55 L (4.30-5.90) m/uL Hgb 10.8 L (13.0-17.5) gm/dL Hct 35.6 L (39.0-53.0) % MCV 100.3 H (80.0-100.0) fL MCHC 30.3 L (31.0-37.0) g/dL Plt Count 755 H (150-450) k/uL Neutrophils # (Manual) 42.90 H (1.3-7.7) k/uL Lymphocytes # (Manual) 0.46 L (1.0-4.8) k/uL Monocytes # (Manual) 2.29 H (0-1.0) k/uL Myelocytes # (Manual) 0.46 H (0) k/uL PT (9.0-12.0) sec INR (<1.2) APTT 34.5 H (22.0-30.0) sec Sodium 134 L (137-145) mmol/L Chloride 96 L (98-107) mmol/L Carbon Dioxide (22-30) mmol/L BUN 22 H (9-20) mg/dL Creatinine 1.96 H (0.66-1.25) mg/dL Plasma Lactic Acid Mj (0.7-2.0) mmol/L Magnesium (1.6-2.3) mg/dL Albumin (3.5-5.0) g/dL Urine Protein (Negative) Urine Blood (Negative) Ur Leukocyte Esterase (Negative) Urine RBC (0-5) /hpf Urine WBC (0-5) /hpf Urine WBC Clumps (None) /hpf Urine Bacteria (None) /hpf 01/16/21 01/16/21 01/16/21 Range/Units 08:33 08:33 08:33 WBC 51.1 H* (3.8-10.6) k/uL RBC 3.58 L (4.30-5.90) m/uL Hgb 11.0 L (13.0-17.5) gm/dL Hct 35.2 L (39.0-53.0) % MCV (80.0-100.0) fL MCHC (31.0-37.0) g/dL Plt Count 765 H (150-450) k/uL Neutrophils # (Manual) 49.00 H (1.3-7.7) k/uL Lymphocytes # (Manual) 0.51 L (1.0-4.8) k/uL Monocytes # (Manual) 1.53 H (0-1.0) k/uL Myelocytes # (Manual) 0.51 H (0) k/uL PT (9.0-12.0) sec INR (<1.2) APTT (22.0-30.0) sec Sodium 134 L (137-145) mmol/L Chloride 97 L (98-107) mmol/L Carbon Dioxide 20 L (22-30) mmol/L BUN 22 H (9-20) mg/dL Creatinine 2.04 H (0.66-1.25) mg/dL Plasma Lactic Acid Mj 4.5 H* (0.7-2.0) mmol/L Magnesium 1.3 L (1.6-2.3) mg/dL Albumin 3.0 L (3.5-5.0) g/dL Urine Protein (Negative) Urine Blood (Negative) Ur Leukocyte Esterase (Negative) Urine RBC (0-5) /hpf Urine WBC (0-5) /hpf Urine WBC Clumps (None) /hpf Urine Bacteria (None) /hpf 01/16/21 01/16/21 01/16/21 Range/Units 10:22 11:46 11:46 WBC 39.8 H (3.8-10.6) k/uL RBC 2.94 L (4.30-5.90) m/uL Hgb 8.9 L D (13.0-17.5) gm/dL Hct 28.9 L (39.0-53.0) % MCV (80.0-100.0) fL MCHC 30.9 L (31.0-37.0) g/dL Plt Count 524 H (150-450) k/uL Neutrophils # (Manual) (1.3-7.7) k/uL Lymphocytes # (Manual) (1.0-4.8) k/uL Monocytes # (Manual) (0-1.0) k/uL Myelocytes # (Manual) (0) k/uL PT 12.4 H (9.0-12.0) sec INR 1.2 H (<1.2) APTT 34.7 H (22.0-30.0) sec Sodium (137-145) mmol/L Chloride (98-107) mmol/L Carbon Dioxide (22-30) mmol/L BUN (9-20) mg/dL Creatinine (0.66-1.25) mg/dL Plasma Lactic Acid Mj (0.7-2.0) mmol/L Magnesium (1.6-2.3) mg/dL Albumin (3.5-5.0) g/dL Urine Protein 1+ H (Negative) Urine Blood Moderate H (Negative) Ur Leukocyte Esterase Large H (Negative) Urine RBC 49 H (0-5) /hpf Urine WBC >182 H (0-5) /hpf Urine WBC Clumps Many H (None) /hpf Urine Bacteria Moderate H (None) /hpf Microbiology - Last 24 Hours (Table) 01/13/21 06:45 Blood Culture - Preliminary Blood No Growth after 72 hours 01/13/21 06:30 Blood Culture - Preliminary Blood No Growth after 72 hours 01/13/21 15:47 Urine Culture - Final Urine,Clean Catch Assessment and Plan Assessment: 1. History of peripheral arterial disease status post revascularization with a femoral to posterior tibialis bypass with CryoVein on 01/04/2021 by , bypass now down likely related to hypotension 2. 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 Fever 4. Suspected Small bowel obstruction 5. Acute leukocytosis 6. Hypotension 7. Shortness of breath 8. History of atrial fibrillation on Heparin drip 9. History of coronary artery disease 10. Tobacco abuse Plan: 1. Records from [facility] reviewed by Dr. Pollack 2. Continue supportive care as recommended by ICU apartment leasing manager 3. Left lower extremity femoral to posterior tibialis bypass nonfunctioning, patient had initial femoral to PT bypass on 12/24/20 which occluded with a redo on 01/04/2021. Likely re-occluded related to hypotension. Once patient stabilizes will likely need to undergo left [id number] amputation. Vascular surgery will continue to follow. The impression and plan of care has been dictated as directed. Dr. Pollack I performed a history and examination of this patient, discussed the same with the dictator. I agree with the dictator's note ,documented as a scribe. Any additional findings or plans will be noted.
[2021-01-16 15:36] LABS: Band Neutrophils % 7 %; Monocytes # (M) 1.19 k/uL (0-1.0); Neutrophils % (M) 89 %; Nucleated Red Blood Cells 0 /100 WBC (0-0); Total Cells Counted 200
[2021-01-16 15:37] LABS: Anisocytosis (M) Present; Poikilocytosis (M) Present
[2021-01-16] MEDS: IOPAMIDOL CONTRAST (ORAL USE) VIAL PO PRN ×2 (15:40→16:48)
--- NOTE | 2021-01-16 16:23 | P.PCN ---
Date of Procedure: 01/16/21 Preoperative Diagnosis: bowel obstruction Postoperative Diagnosis: bowel obstruction Procedure(s) Performed: insertion of tripple lumen Anesthesia: local Surgeon: Igor York Estimated Blood Loss (ml): 0 Pathology: none sent Condition: critical Disposition: ICU Operative Findings: Indication: Hemodynamic monitoring/Intravenous access. A time-out was completed verifying correct patient, procedure, site, positioning, and implant(s) or special equipment if applicable. The patient was placed in a dependent position appropriate for central line placement based on the vein to be cannulated. The patients left neck was prepped and draped in sterile fashion. 1% Lidocaine was used to anesthetize the surrounding skin area. A triple lumen 9F Cordis catheter was introduced into the left left neck internal jugular vein using Seldinger technique. The catheter was threaded smoothly over the guide wire and appropriate blood return was obtained. Each lumen of the catheter was evacuated of air and flushed with sterile saline. The catheter was then sutured in place to the skin and a sterile dressing applied. Perfusion to the extremity distal to the point of catheter insertion was checked and found to be adequate. The patient tolerated the procedure well and there were no complications.
--- NOTE | 2021-01-16 16:54 | XR ---
EXAMINATION TYPE: XR chest 1V DATE OF EXAM: 01/16/2021 COMPARISON: Today HISTORY: Central line placement TECHNIQUE: Single view FINDINGS: There is left side jugular catheter with tip in the superior vena cava. There is infiltrate in both lower lobes. There is some blunting of the costophrenic angles. There is nasogastric tube in the stomach. There are chest leads. There is some contrast in the stomach. Heart size is fairly normal. IMPRESSION: Tubing in good position. There is pulmonary interstitial edema which is slightly worse th an exam earlier today. This is consistent with heart failure or interstitial pneumonia.
--- NOTE | 2021-01-16 18:14 | CT ---
EXAMINATION TYPE: CT abdomen pelvis wo con DATE OF EXAM: 01/16/2021 COMPARISON: 11/09/2018 HISTORY: SBO CT DLP: 566.8 mGycm Automated exposure control for dose reduction was used. Images obtained from the diaphragm to the floor the pelvis with oral contrast only. There are large bilateral pleural effusions. There is bilateral basilar pulmonary infiltrates and ate lectasis. There is mild pericardial effusion. There is oral contrast in the stomach. There is contrast material down to the rectum. There are multi ple dilated small bowel loops in the mid abdomen. These measure up to 3.8 cm. There are multiple flui d levels. There is apparent ileostomy in the left lower abdomen. It is not clear how the contrast mat erial is in the large bowel in this patient with an apparent ileostomy. There is no evidence of free air. There is small amount of abdominal ascites fluid in the pelvis. There is Pollack catheter in the u rinary bladder. There is metal artifact from left hip prosthesis. Urinary bladder not well evaluated. The lumbar vertebra appear intact. There is no compression fracture. IMPRESSION: Pleural effusions with basilar pulmonary infiltrates and atelectasis which are increased compared to old exam. There is extensive atherosclerotic vascular calcification. Dilated small bowel suggestive of ileus or mechanical bowel obstruction and appears new compared to o ld exam. Correlation with the surgical history is needed. There is contrast material in the large bow el that could be rectal contrast.
[2021-01-16] MEDS ORDERED: SODIUM CHLORIDE 0.9% 2,000 ML IV ONE (19:15)
--- NOTE | 2021-01-16 20:58 | PN ---
PROGRESS NOTE DATE OF SERVICE: 01/16/2021 This 65-year-old gentleman who was admitted with severe infection and some necrosis of the left lower leg as after transmetatarsal amputation has taken a turn for the worse today. Patient vomited coffee-grounds emesis. The NG tube inserted. Small-bowel obstruction was suspected. Patient also developed hypotension possibly secondary to sepsis. Patient started on broad spectrum IV antibiotics. Patient was transferred to ICU at this time. Dr. Pollack, vascular surgery, Dr. York, Critical Care as well as Dr. Duenas is following the patient closely. The patient also was suspected to have a small-bowel obstruction. The patient developed atrial fibrillation fast ventricular rate. PAST MEDICAL HISTORY: Reviewed. REVIEW OF SYSTEMS: Could not be taken. The patient is confused. CURRENT MEDICATIONS: Reviewed and include amiodarone drip, Symbicort, Plavix, diltiazem, Neurontin, rest of medication doses are reviewed. PHYSICAL EXAMINATION: Patient is conscious, confused. Pulse 113, irregular. Blood pressure 90/52, respirations 15, temperature normal. Pulse ox noted. HEENT: Conjunctivae normal. NECK: No JVD. CARDIOVASCULAR: S1, S2 muffled. RESPIRATION: Breath sounds diminished in the bases. A few scattered rhonchi and crackles. ABDOMEN: Soft, nontender. LEGS: Significant infection and gangrene of the left lower leg present. Pulses diminished bilaterally. Status post transmetatarsal amputation. NERVOUS SYSTEM: Diffusely weak. LABS: WBC 39.8, hemoglobin 8, other labs are noted. ASSESSMENT: 1. Severe infection and necrotic lesions of the left lower leg with acute severe sepsis and septic shock and hypotension. 2. Atrial fibrillation ablation with fast ventricular rate. 3. Vomiting with coffee-grounds emesis and possible upper gastrointestinal bleeding. Abdominal distention with possible small-bowel obstruction versus ileus. 4. History of recent transmetatarsal amputation as well as femoral bypass surgery about 3 weeks ago in [facility]. 5. History of coronary artery disease. 6. Chronic anemia. 7. Acute kidney injury. 8. Chronic obstructive pulmonary disease. 9. Severe peripheral vascular disease. 10.Hypertension. 11.Chronic debility. 12.Severe protein calorie malnutrition. 13.Sacral decubitus ulcer. 14.History of nicotine dependence. 15.Gastrointestinal and deep vein thrombosis prophylaxis. 16.Hyponatremia. 17.Hypoalbuminemia with mild to moderate protein-calorie malnutrition. 18.Increased WBC. RECOMMENDATIONS AND DISCUSSION: This 65-year-old gentleman who presented with multiple complex medical issues, we will monitor the patient closely. Continue the current medications, management and symptomatic treatment. Continue the broad-spectrum IV antibiotics. Pressor support. Patient started on amiodarone and Cardizem. Continue to monitor. Patient transferred to ICU. Prognosis guarded because of multiple complex medical issues, we will continue to monitor. Patient started on IV heparin and closely follow with surgery. Guarded prognosis. Further recommendations to follow. MMODL / IJN: [id number] /
[2021-01-16] MEDS: HYDROmorphone 0.5 MG/0.5 ML SYRINGE IVP PRN (21:06)
[2021-01-16] MEDS ORDERED: VANCOMYCIN TROUGH DUE 1 EACH MISC MISCELLANE ONE (22:00)
--- NOTE | 2021-01-16 22:31 | PN ---
PROGRESS NOTE DATE OF SERVICE: 01/16/2021 REASON FOR FOLLOWUP: 1. Left leg necrotic wound. 2. Possible aspiration pneumonia. INTERVAL HISTORY: The patient did have possibly worsening of his respiratory status this morning. The patient subsequently has been transferred down to the ICU. The patient remains lethargic and has been on non-rebreather. The patient did have significant output in his colostomy. No other changes were reported by the nursing staff. PHYSICAL EXAMINATION: Blood pressure 92/55, pulse of 113, temperature 99.1, T-max of 100.2. He is currently 94% on a non-rebreather. General description is an elderly male lying in bed in no distress. Respiratory system: Unlabored breathing, coarse breath sounds bilaterally. No wheeze. Heart S1, S2. Regular rate and rhythm. Abdomen soft, no tenderness. Extremities: Left leg necrotic changes about the same. LABS: Hemoglobin 8.9, white count 39.8. DIAGNOSTIC IMPRESSION AND PLAN: Patient with acute changes in clinical condition of sepsis, possible abdominal source versus aspiration pneumonia. Antibiotic has been adjusted to Zosyn. That will be continued while waiting for his condition to stabilize and culture to finalize. Continue with supportive care. MMODL / IJN: [id number] /
[2021-01-17 00:05] LABS: Glucose,Whole Blood 129 mg/dL (75-99)
[2021-01-17] MEDS: HYDROmorphone 0.5 MG/0.5 ML SYRINGE IVP PRN ×6 (01:33→21:17)
[2021-01-17 03:05] LABS: Glucose,Whole Blood 107 mg/dL (75-99)
[2021-01-17] MEDS: GABAPENTIN 300 MG CAP PO SCH ×3 (03:13→16:19)
[2021-01-17] MEDS: METOPROLOL TARTRATE 50 MG TAB PO SCH ×3 (03:13→16:19)
[2021-01-17] MEDS: MORPHINE SULFATE IR 15 MG TABLET PO SCH ×4 (03:14→16:19)
[2021-01-17] MEDS: PIPERACILLIN-TAZOBACTAM 3.375 GM in SODIUM CHLORIDE 0.9% 100 ML IVPB SCH ×3 (03:22→20:57)
[2021-01-17 04:53] LABS: Basophils % (A) 0 %; Eosinophils # (A) 0.1 k/uL (0-0.7); Eosinophils % (A) 0 %; HCT 27.3 % (39.0-53.0); HGB 8.6 gm/dL (13.0-17.5); Hypochromasia Slight; Lymphocytes # (A) 0.5 k/uL (1.0-4.8); Lymphocytes % (A) 2 %; MCH 31.2 pg (25.0-35.0); MCHC 31.5 g/dL (31.0-37.0); Macrocytosis Slight; Mean Platelet Volume 7.3; Monocytes # (A) 0.8 k/uL (0-1.0); Monocytes % (A) 3 %; Neutrophils # (A) 23.5 k/uL (1.3-7.7); Neutrophils % (A) 94 %; Platelet Count 512 k/uL (150-450); RBC 2.75 m/uL (4.30-5.90); RDW 15.3 % (11.5-15.5); WBC 25.1 k/uL (3.8-10.6)
[2021-01-17 05:08] LABS: INR 1.2 (<1.2); Prothrombin Time 12.6 sec (9.0-12.0)
[2021-01-17 05:15] LABS: Albumin 2.3 g/dL (3.5-5.0); Magnesium 2.1 mg/dL (1.6-2.3); Potassium 3.1 mmol/L (3.5-5.1); Total Bilirubin 0.2 mg/dL (0.2-1.3); Total Protein 5.6 g/dL (6.3-8.2)
[2021-01-17] MEDS: AMIODARONE 450 MG in DEXTROSE 5% IN WATER 250 ML IV SCH ×4 (05:22→18:50)
[2021-01-17 05:53] LABS: Glucose,Whole Blood 116 mg/dL (75-99)
[2021-01-17] MEDS: POTASSIUM CHLORIDE 20 MEQ in WATER FOR INJECTION 1 100ML.BAG IVPB SCH (05:53)
[2021-01-17] MEDS: SYMBICORT 80-4.5 MCG INHALER INHALATION SCH ×2 (06:11→16:20)
[2021-01-17] MEDS: ASPIRIN 81 MG PO SCH (08:10)
[2021-01-17] MEDS: MULTIVITAMINS, THERA 1 EACH TAB PO SCH (08:10)
[2021-01-17] MEDS: DOCUSATE 100 MG CAP PO SCH (08:10)
[2021-01-17] MEDS: CLOPIDOGREL 75 MG TAB PO SCH (08:10)
[2021-01-17] MEDS: PANTOPRAZOLE 40 MG/10 ML VIAL IVP SCH ×3 (08:10→21:05)
[2021-01-17] MEDS: DILTIAZEM 125 MG in SODIUM CHLORIDE 0.9% 100 ML IV SCH (08:11)
--- NOTE | 2021-01-17 08:38 | XR ---
EXAMINATION TYPE: XR chest 1V DATE OF EXAM: 01/17/2021 COMPARISON: 01/16/2021 HISTORY: Central line TECHNIQUE: Single frontal view of the chest is obtained. FINDINGS: Underlying COPD seen. NG tube and central line noted. Hyperinflation compatible COPD and t here is bilateral trace pleural effusion. Heart size stable. Arthropathy of the shoulders. IMPRESSION: 1. COPD with bilateral infiltrate and pleural effusion correlate for diffuse pneumonia versus pulmona ry edema.
--- NOTE | 2021-01-17 10:33 | P.PN ---
Subjective Progress Note Date: 01/17/21 65-year-old male patient, comes into the hospital because of fever and difficulty breathing of 2 days' duration. Apparently there was a very poor historian. Apparently he also had a left foot transmetatarsal amputation and this was done [facility] approximately 3 weeks ago. He also mentioned he had a previous time bypass surgery. The patient also has other comorbid conditions including chronic atrial fibrillation, coronary artery disease, peripheral vascular disease, COPD, complicated diverticulitis and previous bowel resection and colostomy and Malcolm's pouch. The patient came to us from the [facility]. The patient was apparently having worsening shortness of breath. He was found to be in A. fib RVR at time of admission. Time of admission, he was febrile with a temperature of 100.3 and the patient was also tachycardic with a heart rate in the 120s and pulse ox was 94% on room air oxygen. Initial white cell count was at 5.3 and the patient had a cre atinine of 1.32 with a BUN of 17. Overnight events and was negative. UA was positive for moderate amount of leukocyte esterase with 30 WBCs. Chest x-ray showed moderate bilateral pleural effusion. EKG was consistent with A. fib/RVR. This morning, we got contacted by the medical team as the patient's condition is gotten worse. The patient has developed worsening in A. fib RVR, hypotension with a systolic blood pressure in the mid 70s, pulse ox of 95-99% 15 L of Oxymizer nasal cannula, lactic acid level of 4.5, and a white cell count of 51.1. The patient received 500 mL bolus and currently the patient is running on normal saline at the rate of 100 mL an hour. Based on all this, in ICU transfer was requested. The patient's cultures including urine and blood cultures during this current admission has been negative. The patient is covered with antibiotics and the patient is receiving IV Zosyn as a broad-spectrum antibiotic coverage. Terms of her his adjuvant fibrillation, the patient had been placed on amiodarone drip which is running at 0.5 mg per minute and the patient is on metoprolol 100 mg every 8 hours for rate control and Cardizem drip at 5 mg per hour for rate control. No antiplatelet has been offered that the patient has previous history of GI bleed. With that spoken, the patient developed an acute kidney injury. Creatinine is up to 2.04 from a normal baseline. At the time of my evaluation, the patient had some mild abdominal distention. He had some mild abdominal tenderness there was diffuse. Absent bowel sounds. Orogastric tube has been inserted and the patient has drained approximately 600 mL of gastric material. Nevertheless, there is some yellowish stool like material collecting in his colostomy bag. At the same time, the patient was inspected for his left lower extremity. There is the left femoral pulse. There are nolberto in the left femoral area and in the left lower extremity thigh area which indicates a recent vascular bypass surgery performed probably a fem-pop bypass surgery. At the same time, there was Doppler signals only in the popliteal artery, absent pulses in the left lower extremity, the left foot shows evidence of a transmetatarsal amputation and the surgical wound site is necrotic and gangrenous. There is also necrosis extending in the dorsal aspect of the left foot, the foot itself is cold and there are no pulses in the posterior tibialis and dorsalis pedis area. The area is red and the medial aspect of the malleolus On today's evaluation of 01/17/2021, patient is slightly improved compared to yesterday. Is awake and alert. Note that he continues to have bowel obstruction. Abdomen is slightly distended. Abdomen is lead mason tender although less compared to yesterday. A CAT scan of the abdomen and pelvis was performed yesterday and the patient had evidence of small bowel ileus. No evidence of any pneumoperitoneum. No evidence of any acute abdomen. 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 The patient underwent EGD and surgical evaluation ultimately he recovered spontaneously. For now, NG tube is in place. Output was noted. Output has been in the order of 200 mL since yesterday. He still has some material coming out of his colostomy bag. In terms of fluid status, triple lumen catheter was inserted yesterday the patient is currently on IV fluids normal saline. He received a total of 2 L of IV fluid and he did not require any pressors. The patient is currently on IV fluids and he is on IV heparin in combination with IV Zosyn. The white cell count is down to 25 and the patient has also improved in terms of his Acute kidney injury. Creatinine is down to 1.6. Potassium level is at 3.[address], BUN is 25, UA was abnormal with clumps of WBCs and the patient remains on IV Zosyn, cultures are still pending for now. Stool for C. diff has been negative. The patient was evaluated by the vascular surgical team. Obviously the patient will need a amputation of the left lower extremity and this will be done once more stable. The acute decompensation that occurred yesterday with essentially related to his small bowel obstruction. General surgery on the case. Consultation was placed and an evaluation has not been done yet. Meanwhile, the patient remains on IV Zosyn. The patient is on IV heparin. Cultures of been negative thus far. He remains nothing by mouth. NG tube is in place. TPN will be initiated as the patient is quite cachectic and malnourished with a Bmi of 17.6. Objective - Vital Signs Vital signs: Vital Signs Temp 98.7 F 01/17/21 04:00 Pulse 96 01/17/21 07:00 Resp 11 L 01/17/21 07:00 BP 100/65 01/17/21 07:00 Pulse Ox 96 01/17/21 07:00 Intake & Output 01/16/21 01/17/21 01/17/21 18:59 06:59 18:59 Intake Total 3750 3543.616 200 Output Total 1730 1025 120 Balance 2019 2518.616 80 Weight 63.8 kg 64 kg Intake: IV 3750 3200 100 .9 @473 790 4291 100 Invasive Line 4 20 Invasive Line 5 20 Invasive Line 6 10 Magnesium Sulfate-D5w Pmx 100 1 gm In Dextrose/Water 1 100ml.bag @ 100 mls/hr IVPB Q1H [facility] Rx#: [id number] Sodium Chloride 0.9% 1, 3000 2000 000 ml @ 999 mls/hr IV . Q1H1M [facility] Rx#:[id number] Intake, IV Titration 343.616 100 Amount Amiodarone 450 mg In 243.616 Dextrose 5% in Water 250 ml @ 0.5 MG/MIN 16.667 mls/hr IV .Q15H [facility] Rx#: [id number] Piperacillin-Tazobactam 3 100 100 .375 gm In Sodium Chloride 0.9% 100 ml @ 25 mls/hr IVPB Q8H [facility] Rx#: [id number] Output: Gastric Drainage 600 100 Urine 1030 375 20 Uretheral (Pollack) 850 Stool 100 Urine/Stool Mix 650 Other: Voiding Method Indwelling Catheter Indwelling Catheter - Exam Appearance the patient is tachypneic, awake and alert, currently on oxygen and the patient is currently on 4 L about 2 by nasal cannula and the patient was taken off the nonrebreather facemask. and the patient also has an NG tube in place. His pulse ox currently is in the low 90s. Head exam was generally normal. There was no scleral icterus or corneal arcus. Mucous membranes were moist. Neck was supple and without jugular venous distension, thyromegaly, or carotid bruits. Carotids were easily palpable bilaterally. There was no adenopathy. Lungs sounds are diminished in the patient's crackles in the mid and lower lung field bilaterally Cardiac exam revealed the PMI to be normally situated and sized. The is irregular and the patient is an 80 fibrillation with rapid ventricular response at this point in time. The first and second heart sounds were normal and physiologic splitting of the second heart sound was noted. There were no murmurs, rubs, clicks, or gallops. Abdomen slightly distended. There is direct tenderness. No rebound tensile guarding. Bowel sounds absent. The colostomy site is viable and there is some stool material collecting and abdominal colostomy bag. No organomegaly identified. Extremities the patient has scars of previous vascular bypass surgery and the nolberto are present in the left inguinal area, left medial thigh and left foot just superior to the malleolus. There is some wetness and drainage coming from the foot incision. There is also dry gangrene at the site of the metatarsal or transmetatarsal amputation.There are no Doppler signals in the dorsalis pedis and radial tibialis. There is obviously guarded and the popliteal area and t here is palpable pulses in the femoral area Neurologically the patient is awake and alert and there is no focal neurological deficit. He remains a poor historian. - Labs CBC & Chem 7: 01/17/21 04:00 01/17/21 04:00 Labs: Abnormal Lab Results - Last 24 Hours (Table) 01/16/21 01/16/21 01/16/21 Range/Units 10:22 11:46 11:46 WBC 39.8 H (3.8-10.6) k/uL RBC 2.94 L (4.30-5.90) m/uL Hgb 8.9 L D (13.0-17.5) gm/dL Hct 28.9 L (39.0-53.0) % MCHC 30.9 L (31.0-37.0) g/dL Plt Count 524 H (150-450) k/uL Neutrophils # (1.3-7.7) k/uL Neutrophils # (Manual) 38.20 H (1.3-7.7) k/uL Lymphocytes # (1.0-4.8) k/uL Lymphocytes # (Manual) 0.80 L (1.0-4.8) k/uL Monocytes # (Manual) 1.19 H (0-1.0) k/uL PT 12.4 H (9.0-12.0) sec INR 1.2 H (<1.2) APTT 34.7 H (22.0-30.0) sec Sodium (137-145) mmol/L Potassium (3.5-5.1) mmol/L Carbon Dioxide (22-30) mmol/L BUN (9-20) mg/dL Creatinine (0.66-1.25) mg/dL Glucose (74-99) mg/dL POC Glucose (mg/dL) (75-99) mg/dL Calcium (8.4-10.2) mg/dL Total Protein (6.3-8.2) g/dL Albumin (3.5-5.0) g/dL Urine Protein 1+ H (Negative) Urine Blood Moderate H (Negative) Ur Leukocyte Esterase Large H (Negative) Urine RBC 49 H (0-5) /hpf Urine WBC >182 H (0-5) /hpf Urine WBC Clumps Many H (None) /hpf Urine Bacteria Moderate H (None) /hpf 01/16/21 01/17/21 01/17/21 Range/Units 17:58 00:02 03:03 WBC (3.8-10.6) k/uL RBC (4.30-5.90) m/uL Hgb (13.0-17.5) gm/dL Hct (39.0-53.0) % MCHC (31.0-37.0) g/dL Plt Count (150-450) k/uL Neutrophils # (1.3-7.7) k/uL Neutrophils # (Manual) (1.3-7.7) k/uL Lymphocytes # (1.0-4.8) k/uL Lymphocytes # (Manual) (1.0-4.8) k/uL Monocytes # (Manual) (0-1.0) k/uL PT (9.0-12.0) sec INR (<1.2) APTT 49.8 H (22.0-30.0) sec Sodium (137-145) mmol/L Potassium (3.5-5.1) mmol/L Carbon Dioxide (22-30) mmol/L BUN (9-20) mg/dL Creatinine (0.66-1.25) mg/dL Glucose (74-99) mg/dL POC Glucose (mg/dL) 129 H 107 H (75-99) mg/dL Calcium (8.4-10.2) mg/dL Total Protein (6.3-8.2) g/dL Albumin (3.5-5.0) g/dL Urine Protein (Negative) Urine Blood (Negative) Ur Leukocyte Esterase (Negative) Urine RBC (0-5) /hpf Urine WBC (0-5) /hpf Urine WBC Clumps (None) /hpf Urine Bacteria (None) /hpf 01/17/21 01/17/21 01/17/21 Range/Units 03:58 04:00 04:00 WBC 25.1 H (3.8-10.6) k/uL RBC 2.75 L (4.30-5.90) m/uL Hgb 8.6 L (13.0-17.5) gm/dL Hct 27.3 L (39.0-53.0) % MCHC (31.0-37.0) g/dL Plt Count 512 H (150-450) k/uL Neutrophils # 23.5 H (1.3-7.7) k/uL Neutrophils # (Manual) (1.3-7.7) k/uL Lymphocytes # 0.5 L (1.0-4.8) k/uL Lymphocytes # (Manual) (1.0-4.8) k/uL Monocytes # (Manual) (0-1.0) k/uL PT 12.6 H (9.0-12.0) sec INR 1.2 H (<1.2) APTT (22.0-30.0) sec Sodium 135 L (137-145) mmol/L Potassium 3.1 L (3.5-5.1) mmol/L Carbon Dioxide 21 L (22-30) mmol/L BUN 25 H (9-20) mg/dL Creatinine 1.68 H (0.66-1.25) mg/dL Glucose 102 H (74-99) mg/dL POC Glucose (mg/dL) (75-99) mg/dL Calcium 8.0 L (8.4-10.2) mg/dL Total Protein 5.6 L (6.3-8.2) g/dL Albumin 2.3 L (3.5-5.0) g/dL Urine Protein (Negative) Urine Blood (Negative) Ur Leukocyte Esterase (Negative) Urine RBC (0-5) /hpf Urine WBC (0-5) /hpf Urine WBC Clumps (None) /hpf Urine Bacteria (None) /hpf 01/17/21 Range/Units 05:52 WBC (3.8-10.6) k/uL RBC (4.30-5.90) m/uL Hgb (13.0-17.5) gm/dL Hct (39.0-53.0) % MCHC (31.0-37.0) g/dL Plt Count (150-450) k/uL Neutrophils # (1.3-7.7) k/uL Neutrophils # (Manual) (1.3-7.7) k/uL Lymphocytes # (1.0-4.8) k/uL Lymphocytes # (Manual) (1.0-4.8) k/uL Monocytes # (Manual) (0-1.0) k/uL PT (9.0-12.0) sec INR (<1.2) APTT (22.0-30.0) sec Sodium (137-145) mmol/L Potassium (3.5-5.1) mmol/L Carbon Dioxide (22-30) mmol/L BUN (9-20) mg/dL Creatinine (0.66-1.25) mg/dL Glucose (74-99) mg/dL POC Glucose (mg/dL) 116 H (75-99) mg/dL Calcium (8.4-10.2) mg/dL Total Protein (6.3-8.2) g/dL Albumin (3.5-5.0) g/dL Urine Protein (Negative) Urine Blood (Negative) Ur Leukocyte Esterase (Negative) Urine RBC (0-5) /hpf Urine WBC (0-5) /hpf Urine WBC Clumps (None) /hpf Urine Bacteria (None) /hpf Microbiology - Last 24 Hours (Table) 01/13/21 06:30 Blood Culture - Preliminary Blood No Growth after 96 hours 01/13/21 06:45 Blood Culture - Preliminary Blood No Growth after 96 hours 01/16/21 10:22 Urine Culture - Preliminary Urine,Clean Catch Assessment and Plan Plan: 1 recurrent small bowel obstruction. This is likely due to an underlying SMA syndrome. The patient had a similar episodes 2 weeks back at [facility]. Patient has an NG tube catheter in place. There is positive output and his colostomy site. CAT scan of the abdomen was noted. Note that 70 pneumoperitoneum and the patient remains on IV Zosyn. No clear indication for an acute mesenteric ischemia. 2 acute hypotension, likely secondary to above with possibly a component of sepsis, systolic blood pressures the mid 70s, the patient was given a liter of bolus of normal saline and his systolic blood pressures up to the 90. Noted the patient responded nicely to fluids and the patient has not required any pressors 3 acute leukocytosis, improving 4 acute lactic acidosis, improving and the lactic acid level is down to 1.6 5 acute kidney injury, creatinine is improving is currently down to 1.68. 6 acute hypoxic respiratory failure with possible aspiration in addition to chronic bilateral pleural effusions, please refer to the CAT scan of the abdomen that showed chronic bilateral lower lobe pulmonary pleural fluid and atelectasis. 7 peripheral vascular disease with recent transmetatarsal amputation of the left foot and the patient has dry gangrene, vascular surgery on the case considering a left lower extremity amputation [id number] 8 coronary artery disease 9 A. fib with RVR currently on a combination of amiodarone drip, Cardizem drip or rate control, still on IV heparin 10. Abdominal incision suspected bowel obstruction. NG tube is in place and a flat film of the abdomen showed numerous dilated small bowels related to possibility of bowel obstruction 11 history of depression 12 COPD 13 history Diverticulitis requiring bowel resection and colectomy and diverting colostomy with Malcolm's pouch 14 history of bladder injury, iatrogenic in nature and the patient had a surgical repair 15 history of Raynaud's disease 16 degenerative arthritis plan Plan Extremely critical condition Initiate TPN for nutritional support as the patient is significantly malnourished and the patient is still nothing by mouth for now. Triple-lumen catheter was inserted yesterday. Continue IV fluids Continued IV Zosyn Continue IV heparin Awaiting a general surgical consultation Vascular surgery is on standby for a [id number] position of the left lower extremity Continue the rest of the supportive care. Condition is obviously critical and outcome in general is poor baseline above-mentioned comorbidities. Reviewed some of the records that were forwarded from [facility]. The patient had a SMA syndrome. He has undergone various vascular surgeries and interventions and currently has a dry gangrene in his left foot. Monitor the NG output. Monitor the ileostomy output. Monitor renal function. Extremities critical condition with high risk of mortality based on the above- mentioned comorbidities. We'll continue to follow.
--- NOTE | 2021-01-17 11:27 | P.PN ---
Subjective Progress Note Date: 01/17/21 This 65-year-old gentleman with history of peripheral vascular disease with ischemic changes of the left leg for which she had a vascular procedure done. It appears that patient still have problems with ischemia of the left leg. He also developed abdominal distention and pain and it is suspected that patient may have small bowel obstruction or ileus. We're seeing the patient for management of his atrial fibrillation currently patient is on IV amiodarone at 0.5 mg. His heart rate is in the 100-120. We'll continue IV amiodarone as long as patient is nothing by mouth. Further recommendations depend upon the clinical course Objective - Vital Signs Vital signs: Vital Signs Temp 98.7 F 01/17/21 04:00 Pulse 96 01/17/21 07:00 Resp 11 L 01/17/21 07:00 BP 100/65 01/17/21 07:00 Pulse Ox 96 01/17/21 07:00 Intake & Output 01/16/21 01/17/21 01/17/21 18:59 06:59 18:59 Intake Total 3750 3543.616 200 Output Total 1730 1025 120 Balance 2019 2518.616 80 Weight 63.8 kg 64 kg Intake: IV 3750 3200 100 .9 @980 360 3022 100 Invasive Line 4 20 Invasive Line 5 20 Invasive Line 6 10 Magnesium Sulfate-D5w Pmx 100 1 gm In Dextrose/Water 1 100ml.bag @ 100 mls/hr IVPB Q1H [facility] Rx#: [id number] Sodium Chloride 0.9% 1, 3000 2000 000 ml @ 999 mls/hr IV . Q1H1M [facility] Rx#:[id number] Intake, IV Titration 343.616 100 Amount Amiodarone 450 mg In 243.616 Dextrose 5% in Water 250 ml @ 0.5 MG/MIN 16.667 mls/hr IV .Q15H [facility] Rx#: [id number] Piperacillin-Tazobactam 3 100 100 .375 gm In Sodium Chloride 0.9% 100 ml @ 25 mls/hr IVPB Q8H [facility] Rx#: [id number] Output: Gastric Drainage 600 100 Urine 1030 375 20 Uretheral (Pollack) 850 Stool 100 Urine/Stool Mix 650 Other: Voiding Method Indwelling Catheter Indwelling Catheter - Exam GENERAL EXAM: Patient is drowsy, him as he did HEENT: Normocephalic. NECK: No masses, no nuchal rigidity. CHEST: No chest wall deformity. LUNGS: Diminished breath sounds HEART: S1 and S2 normal. Regular heart sounds ABDOMEN: Deferred to the surgeon SKIN: No rashes CENTRAL NERVOUS SYSTEM: Drowsy EXTREMITIES: Ischemic left leg - Labs CBC & Chem 7: 01/17/21 04:00 01/17/21 04:00 Labs: Abnormal Lab Results - Last 24 Hours (Table) 01/16/21 01/16/21 01/16/21 Range/Units 10:22 11:46 11:46 WBC 39.8 H (3.8-10.6) k/uL RBC 2.94 L (4.30-5.90) m/uL Hgb 8.9 L D (13.0-17.5) gm/dL Hct 28.9 L (39.0-53.0) % MCHC 30.9 L (31.0-37.0) g/dL Plt Count 524 H (150-450) k/uL Neutrophils # (1.3-7.7) k/uL Neutrophils # (Manual) 38.20 H (1.3-7.7) k/uL Lymphocytes # (1.0-4.8) k/uL Lymphocytes # (Manual) 0.80 L (1.0-4.8) k/uL Monocytes # (Manual) 1.19 H (0-1.0) k/uL PT 12.4 H (9.0-12.0) sec INR 1.2 H (<1.2) APTT 34.7 H (22.0-30.0) sec Sodium (137-145) mmol/L Potassium (3.5-5.1) mmol/L Carbon Dioxide (22-30) mmol/L BUN (9-20) mg/dL Creatinine (0.66-1.25) mg/dL Glucose (74-99) mg/dL POC Glucose (mg/dL) (75-99) mg/dL Calcium (8.4-10.2) mg/dL Total Protein (6.3-8.2) g/dL Albumin (3.5-5.0) g/dL Urine Protein 1+ H (Negative) Urine Blood Moderate H (Negative) Ur Leukocyte Esterase Large H (Negative) Urine RBC 49 H (0-5) /hpf Urine WBC >182 H (0-5) /hpf Urine WBC Clumps Many H (None) /hpf Urine Bacteria Moderate H (None) /hpf 01/16/21 01/17/21 01/17/21 Range/Units 17:58 00:02 03:03 WBC (3.8-10.6) k/uL RBC (4.30-5.90) m/uL Hgb (13.0-17.5) gm/dL Hct (39.0-53.0) % MCHC (31.0-37.0) g/dL Plt Count (150-450) k/uL Neutrophils # (1.3-7.7) k/uL Neutrophils # (Manual) (1.3-7.7) k/uL Lymphocytes # (1.0-4.8) k/uL Lymphocytes # (Manual) (1.0-4.8) k/uL Monocytes # (Manual) (0-1.0) k/uL PT (9.0-12.0) sec INR (<1.2) APTT 49.8 H (22.0-30.0) sec Sodium (137-145) mmol/L Potassium (3.5-5.1) mmol/L Carbon Dioxide (22-30) mmol/L BUN (9-20) mg/dL Creatinine (0.66-1.25) mg/dL Glucose (74-99) mg/dL POC Glucose (mg/dL) 129 H 107 H (75-99) mg/dL Calcium (8.4-10.2) mg/dL Total Protein (6.3-8.2) g/dL Albumin (3.5-5.0) g/dL Urine Protein (Negative) Urine Blood (Negative) Ur Leukocyte Esterase (Negative) Urine RBC (0-5) /hpf Urine WBC (0-5) /hpf Urine WBC Clumps (None) /hpf Urine Bacteria (None) /hpf 01/17/21 01/17/21 01/17/21 Range/Units 03:58 04:00 04:00 WBC 25.1 H (3.8-10.6) k/uL RBC 2.75 L (4.30-5.90) m/uL Hgb 8.6 L (13.0-17.5) gm/dL Hct 27.3 L (39.0-53.0) % MCHC (31.0-37.0) g/dL Plt Count 512 H (150-450) k/uL Neutrophils # 23.5 H (1.3-7.7) k/uL Neutrophils # (Manual) (1.3-7.7) k/uL Lymphocytes # 0.5 L (1.0-4.8) k/uL Lymphocytes # (Manual) (1.0-4.8) k/uL Monocytes # (Manual) (0-1.0) k/uL PT 12.6 H (9.0-12.0) sec INR 1.2 H (<1.2) APTT (22.0-30.0) sec Sodium 135 L (137-145) mmol/L Potassium 3.1 L (3.5-5.1) mmol/L Carbon Dioxide 21 L (22-30) mmol/L BUN 25 H (9-20) mg/dL Creatinine 1.68 H (0.66-1.25) mg/dL Glucose 102 H (74-99) mg/dL POC Glucose (mg/dL) (75-99) mg/dL Calcium 8.0 L (8.4-10.2) mg/dL Total Protein 5.6 L (6.3-8.2) g/dL Albumin 2.3 L (3.5-5.0) g/dL Urine Protein (Negative) Urine Blood (Negative) Ur Leukocyte Esterase (Negative) Urine RBC (0-5) /hpf Urine WBC (0-5) /hpf Urine WBC Clumps (None) /hpf Urine Bacteria (None) /hpf 01/17/21 Range/Units 05:52 WBC (3.8-10.6) k/uL RBC (4.30-5.90) m/uL Hgb (13.0-17.5) gm/dL Hct (39.0-53.0) % MCHC (31.0-37.0) g/dL Plt Count (150-450) k/uL Neutrophils # (1.3-7.7) k/uL Neutrophils # (Manual) (1.3-7.7) k/uL Lymphocytes # (1.0-4.8) k/uL Lymphocytes # (Manual) (1.0-4.8) k/uL Monocytes # (Manual) (0-1.0) k/uL PT (9.0-12.0) sec INR (<1.2) APTT (22.0-30.0) sec Sodium (137-145) mmol/L Potassium (3.5-5.1) mmol/L Carbon Dioxide (22-30) mmol/L BUN (9-20) mg/dL Creatinine (0.66-1.25) mg/dL Glucose (74-99) mg/dL POC Glucose (mg/dL) 116 H (75-99) mg/dL Calcium (8.4-10.2) mg/dL Total Protein (6.3-8.2) g/dL Albumin (3.5-5.0) g/dL Urine Protein (Negative) Urine Blood (Negative) Ur Leukocyte Esterase (Negative) Urine RBC (0-5) /hpf Urine WBC (0-5) /hpf Urine WBC Clumps (None) /hpf Urine Bacteria (None) /hpf Microbiology - Last 24 Hours (Table) 01/16/21 08:33 Blood Culture - Preliminary Blood No Growth after 24 hours 01/13/21 06:30 Blood Culture - Preliminary Blood No Growth after 96 hours 01/13/21 06:45 Blood Culture - Preliminary Blood No Growth after 96 hours 01/16/21 10:22 Urine Culture - Preliminary Urine,Clean Catch Assessment and Plan (1) Ischemic leg Current Visit: Yes Status: Acute Code(s): I99.8 - OTHER DISORDER OF CIRCULATORY SYSTEM SNOMED Code(s): 134876278 (2) Atrial fibrillation with RVR Current Visit: Yes Status: Acute Code(s): I48.91 - UNSPECIFIED ATRIAL FIBRILLATION SNOMED Code(s): 303585883106711 (3) CHF (congestive heart failure) Current Visit: Yes Status: Acute Code(s): I50.9 - HEART FAILURE, UNSPECIFIED SNOMED Code(s): 52400302 (4) Abdominal pain Current Visit: No Status: Acute Code(s): R10.9 - UNSPECIFIED ABDOMINAL PAIN SNOMED Code(s): 19421026 (5) COPD (chronic obstructive pulmonary disease) Current Visit: No Status: Acute Code(s): J44.9 - CHRONIC OBSTRUCTIVE PULMONARY DISEASE, UNSPECIFIED SNOMED Code(s): 21271740 (6) Coronary artery disease Current Visit: No Status: Acute Code(s): I25.10 - ATHSCL HEART DISEASE OF [place] CORONARY ARTERY W/O ANG PCTRS SNOMED Code(s): 30928932 Plan: Continue current dose of amiodarone. We'll switch to by mouth amiodarone and patient is able to take anything by mouth. Surgical team and vascular team is following the patient
[2021-01-17 11:53] LABS: Glucose,Whole Blood 94 mg/dL (75-99)
--- NOTE | 2021-01-17 13:45 | P.PN ---
Subjective Progress Note Date: 01/17/21 CHIEF COMPLAINT: Fever HISTORY OF PRESENT ILLNESS: Patient remains in the ICU. Surgical service is following her speech is small bowel obstruction. He has NG tube in place. He's had about 100 dark brownish material output through NG tube. Patient complains of mostly pain in his left leg. Denies any nausea. He is having output through his ostomy. He is afebrile. He is no longer on a nonrebreather and currently on 6 L of oxygen. His tachycardia is showing improvement. Computed tomography scan abdomen and pelvis showing pleural effusions with basilar pulmonary infiltrate and atelectasis which are increased compared to old exam. There is extensive atherosclerotic vascular calcification. Dilated small bowel suggestive of ileus or mechanical bowel obstruction and appears new compared to old exam. There is contrast material in the large bowel that could be rectal contrast. He has been started on TPN for nutrition support. Afebrile. WBC is down from 39.8-25.1 hemoglobin did have a drop from 11-8.9 yesterday. Hemoglobin is now 8.6 platelets 512 sodium 135 potassium 3.1 creatinine 1.68. Apparently patient had similar episode when he was hospitalized at [facility] in [place]. He had a small bowel obstruction and evidence of underlying SMA syndrome. Peripheral arterial disease and dry gangrene of left lower extremity vascular surgery. Progressive surgery once patient stabilizes he'll likely need to undergo a left tyhlw-kkx-bpgl amputation PHYSICAL EXAM: VITAL SIGNS: Reviewed. GENERAL: Well-developed in no acute distress. HEENT: No sclera icterus. Extraocular movements grossly intact. Moist buccal mucosa. Head is atraumatic, normocephalic. ABDOMEN: Soft. Distended with mild tenderness. ileostomy with dark colored stool NEUROLOGIC: Alert and oriented. Cranial nerves II through XII grossly intact. ASSESSMENT: 1. Small bowel obstruction 2. Recurrent small bowel obstruction and underlying SMA syndrome PLAN: -Continue ICU management -Continue supportive care -NG tube placed for decompression -Keep patient nothing by mouth -Continue IV fluid -Keep Plavix on hold Physician Software Applications Engineer note has been reviewed by physician. Signing provider agrees with the documented findings, assessment, and plan of care. Objective - Vital Signs Vital signs: Vital Signs Temp 98.7 F 01/17/21 04:00 Pulse 96 01/17/21 07:00 Resp 11 L 01/17/21 07:00 BP 100/65 01/17/21 07:00 Pulse Ox 96 01/17/21 07:00 Intake & Output 01/16/21 01/17/21 01/17/21 18:59 06:59 18:59 Intake Total 3750 3543.616 200 Output Total 1730 1025 120 Balance 2019 2518.616 80 Weight 63.8 kg 64 kg 64 kg Intake: IV 3750 3200 100 .9 @889 902 1264 100 Invasive Line 4 20 Invasive Line 5 20 Invasive Line 6 10 Magnesium Sulfate-D5w Pmx 100 1 gm In Dextrose/Water 1 100ml.bag @ 100 mls/hr IVPB Q1H [facility] Rx#: [id number] Sodium Chloride 0.9% 1, 3000 2000 000 ml @ 999 mls/hr IV . Q1H1M [facility] Rx#:[id number] Intake, IV Titration 343.616 100 Amount Amiodarone 450 mg In 243.616 Dextrose 5% in Water 250 ml @ 0.5 MG/MIN 16.667 mls/hr IV .Q15H [facility] Rx#: [id number] Piperacillin-Tazobactam 3 100 100 .375 gm In Sodium Chloride 0.9% 100 ml @ 25 mls/hr IVPB Q8H [facility] Rx#: [id number] Output: Gastric Drainage 600 100 Urine 1030 375 20 Uretheral (Pollack) 850 Stool 100 Urine/Stool Mix 650 Other: Voiding Method Indwelling Catheter Indwelling Catheter - Labs CBC & Chem 7: 01/17/21 04:00 01/17/21 04:00 Labs: Abnormal Lab Results - Last 24 Hours (Table) 01/16/21 01/16/21 01/17/21 Range/Units 11:46 17:58 00:02 WBC (3.8-10.6) k/uL RBC (4.30-5.90) m/uL Hgb (13.0-17.5) gm/dL Hct (39.0-53.0) % Plt Count (150-450) k/uL Neutrophils # (1.3-7.7) k/uL Neutrophils # (Manual) 38.20 H (1.3-7.7) k/uL Lymphocytes # (1.0-4.8) k/uL Lymphocytes # (Manual) 0.80 L (1.0-4.8) k/uL Monocytes # (Manual) 1.19 H (0-1.0) k/uL PT (9.0-12.0) sec INR (<1.2) APTT 49.8 H (22.0-30.0) sec Sodium (137-145) mmol/L Potassium (3.5-5.1) mmol/L Carbon Dioxide (22-30) mmol/L BUN (9-20) mg/dL Creatinine (0.66-1.25) mg/dL Glucose (74-99) mg/dL POC Glucose (mg/dL) 129 H (75-99) mg/dL Calcium (8.4-10.2) mg/dL Total Protein (6.3-8.2) g/dL Albumin (3.5-5.0) g/dL 01/17/21 01/17/21 01/17/21 Range/Units 03:03 03:58 04:00 WBC (3.8-10.6) k/uL RBC (4.30-5.90) m/uL Hgb (13.0-17.5) gm/dL Hct (39.0-53.0) % Plt Count (150-450) k/uL Neutrophils # (1.3-7.7) k/uL Neutrophils # (Manual) (1.3-7.7) k/uL Lymphocytes # (1.0-4.8) k/uL Lymphocytes # (Manual) (1.0-4.8) k/uL Monocytes # (Manual) (0-1.0) k/uL PT 12.6 H (9.0-12.0) sec INR 1.2 H (<1.2) APTT (22.0-30.0) sec Sodium 135 L (137-145) mmol/L Potassium 3.1 L (3.5-5.1) mmol/L Carbon Dioxide 21 L (22-30) mmol/L BUN 25 H (9-20) mg/dL Creatinine 1.68 H (0.66-1.25) mg/dL Glucose 102 H (74-99) mg/dL POC Glucose (mg/dL) 107 H (75-99) mg/dL Calcium 8.0 L (8.4-10.2) mg/dL Total Protein 5.6 L (6.3-8.2) g/dL Albumin 2.3 L (3.5-5.0) g/dL 01/17/21 01/17/21 Range/Units 04:00 05:52 WBC 25.1 H (3.8-10.6) k/uL RBC 2.75 L (4.30-5.90) m/uL Hgb 8.6 L (13.0-17.5) gm/dL Hct 27.3 L (39.0-53.0) % Plt Count 512 H (150-450) k/uL Neutrophils # 23.5 H (1.3-7.7) k/uL Neutrophils # (Manual) (1.3-7.7) k/uL Lymphocytes # 0.5 L (1.0-4.8) k/uL Lymphocytes # (Manual) (1.0-4.8) k/uL Monocytes # (Manual) (0-1.0) k/uL PT (9.0-12.0) sec INR (<1.2) APTT (22.0-30.0) sec Sodium (137-145) mmol/L Potassium (3.5-5.1) mmol/L Carbon Dioxide (22-30) mmol/L BUN (9-20) mg/dL Creatinine (0.66-1.25) mg/dL Glucose (74-99) mg/dL POC Glucose (mg/dL) 116 H (75-99) mg/dL Calcium (8.4-10.2) mg/dL Total Protein (6.3-8.2) g/dL Albumin (3.5-5.0) g/dL Microbiology - Last 24 Hours (Table) 01/16/21 08:33 Blood Culture - Preliminary Blood No Growth after 24 hours 01/13/21 06:30 Blood Culture - Preliminary Blood No Growth after 96 hours 01/13/21 06:45 Blood Culture - Preliminary Blood No Growth after 96 hours 01/16/21 10:22 Urine Culture - Preliminary Urine,Clean Catch
--- NOTE | 2021-01-17 13:47 | P.PN ---
<Jesusita Snyder - Last Filed: 01/17/21 13:41> Subjective Progress Note Date: 01/17/21 Principal diagnosis: ischemic foot Patient was seen and examined on the medical floor with acute changes in the morning. Nursing states his respiratory status declined is on a nonrebreather. He had some cardiac changes well as hypotension and he was started on Cardizem as well as amiodarone drip. Had elevation in his WBC to 51.1 from 16.1 yesterday. Hemoglobin 8.9, platelet count 524,000 INR 1.2 sodium 134 potassium 4.0 BUN 22 creatinine 2.04 magnesium 1.3 Plasma lactic acid was 4.5 this morning with a repeat to 1.6. Apparently the patient also had a large amount of dark brown emesis morning. NG tube was placed. Currently is also on a heparin drip for his atrial fibrillation. Records from [facility] upper received today. Patient was apparently hospitalized recently for approximately 4 weeks duration with her discharge may be a week or so ago. At that time there is documentation that he was in hypovolemic shock related to an upper GI bleed and possible obstruction as well as history of atrial fibrillation. On 12/19/2020 it was reported that the patient had a 4.1 L coffee-ground emesis. On 12/24/20 he underwent a initial femoral to posterior tibialis bypass by Dr. Ayala for gangrene and peripheral arterial disease of the left lower extremity. Apparently dad occluded and they did a redo of the femoral to posterior tibial bypass with CryoVein on 01/04/2021 by . Patient also underwent on 12/29/2020 a transmetatarsal amputation of the left foot. Patient seen and examined in the ICU. He states he still having abdominal pain and pain down his left lower extremity. He is afebrile. He is on 6 L of nasal cannula with oxygen saturation at 96%. Blood pressure 100/65 heart rate 96. WBC 25 hemoglobin 8.6 sodium 135 potassium 3.1 BUN 25 creatinine 1.68 LFTs unremarkable. Patient had a CT of the abdomen and pelvis that showed pleural effusions with basilar pulmonary infiltrates and atelectasis which are increased compared to old exam. There is extensive atherosclerotic vascular calcification. Dilated small bowel suggestive of ileus or mechanical bowel obstruction and appears new compared to old exam. Correlation with the surgical history is needed. There is contrast material in the large bowel that could be rectal contrast. Objective - Vital Signs Vital signs: Vital Signs Temp 98.7 F 01/17/21 04:00 Pulse 96 01/17/21 07:00 Resp 11 L 01/17/21 07:00 BP 100/65 01/17/21 07:00 Pulse Ox 96 01/17/21 07:00 Intake & Output 01/16/21 01/17/21 01/17/21 18:59 06:59 18:59 Intake Total 3750 3543.616 200 Output Total 1730 1025 120 Balance 2019 2518.616 80 Weight 63.8 kg 64 kg Intake: IV 3750 3200 100 .9 @750 018 1509 100 Invasive Line 4 20 Invasive Line 5 20 Invasive Line 6 10 Magnesium Sulfate-D5w Pmx 100 1 gm In Dextrose/Water 1 100ml.bag @ 100 mls/hr IVPB Q1H [facility] Rx#: [id number] Sodium Chloride 0.9% 1, 3000 2000 000 ml @ 999 mls/hr IV . Q1H1M [facility] Rx#:[id number] Intake, IV Titration 343.616 100 Amount Amiodarone 450 mg In 243.616 Dextrose 5% in Water 250 ml @ 0.5 MG/MIN 16.667 mls/hr IV .Q15H [facility] Rx#: [id number] Piperacillin-Tazobactam 3 100 100 .375 gm In Sodium Chloride 0.9% 100 ml @ 25 mls/hr IVPB Q8H [facility] Rx#: [id number] Output: Gastric Drainage 600 100 Urine 1030 375 20 Uretheral (Pollack) 850 Stool 100 Urine/Stool Mix 650 Other: Voiding Method Indwelling Catheter Indwelling Catheter - Exam General appearance: The patient is alert, oriented, appears in no acute distress. Nonrebreather in place. HET: Head is normocephalic and atraumatic. Neck: Supple without lymphadenopathy. Trachea midline. Abdomen: Soft, mild diffuse tenderness, no guarding or rigidity. Ostomy with liquid brown output. Extremities: Left TMA site well approximated with sutures. Left foot with ischemic changes at the TMA site which are dry, chronic. There are well approximated sutures as well as nolberto in the left lower extremity that are well approximated without any drainage or redness. Nonpalpable pulses at the bypass graft. Popliteal doppler signal. Palpable bilateral femoral pulses. Left groin with nolberto well approximated without any drainage. Neurological: No focal deficits. Alert and oriented 3. - Labs CBC & Chem 7: 01/17/21 04:00 01/17/21 04:00 Labs: Abnormal Lab Results - Last 24 Hours (Table) 01/16/21 01/16/21 01/16/21 Range/Units 10:22 11:46 11:46 WBC 39.8 H (3.8-10.6) k/uL RBC 2.94 L (4.30-5.90) m/uL Hgb 8.9 L D (13.0-17.5) gm/dL Hct 28.9 L (39.0-53.0) % MCHC 30.9 L (31.0-37.0) g/dL Plt Count 524 H (150-450) k/uL Neutrophils # (1.3-7.7) k/uL Neutrophils # (Manual) 38.20 H (1.3-7.7) k/uL Lymphocytes # (1.0-4.8) k/uL Lymphocytes # (Manual) 0.80 L (1.0-4.8) k/uL Monocytes # (Manual) 1.19 H (0-1.0) k/uL PT 12.4 H (9.0-12.0) sec INR 1.2 H (<1.2) APTT 34.7 H (22.0-30.0) sec Sodium (137-145) mmol/L Potassium (3.5-5.1) mmol/L Carbon Dioxide (22-30) mmol/L BUN (9-20) mg/dL Creatinine (0.66-1.25) mg/dL Glucose (74-99) mg/dL POC Glucose (mg/dL) (75-99) mg/dL Calcium (8.4-10.2) mg/dL Total Protein (6.3-8.2) g/dL Albumin (3.5-5.0) g/dL Urine Protein 1+ H (Negative) Urine Blood Moderate H (Negative) Ur Leukocyte Esterase Large H (Negative) Urine RBC 49 H (0-5) /hpf Urine WBC >182 H (0-5) /hpf Urine WBC Clumps Many H (None) /hpf Urine Bacteria Moderate H (None) /hpf 01/16/21 01/17/21 01/17/21 Range/Units 17:58 00:02 03:03 WBC (3.8-10.6) k/uL RBC (4.30-5.90) m/uL Hgb (13.0-17.5) gm/dL Hct (39.0-53.0) % MCHC (31.0-37.0) g/dL Plt Count (150-450) k/uL Neutrophils # (1.3-7.7) k/uL Neutrophils # (Manual) (1.3-7.7) k/uL Lymphocytes # (1.0-4.8) k/uL Lymphocytes # (Manual) (1.0-4.8) k/uL Monocytes # (Manual) (0-1.0) k/uL PT (9.0-12.0) sec INR (<1.2) APTT 49.8 H (22.0-30.0) sec Sodium (137-145) mmol/L Potassium (3.5-5.1) mmol/L Carbon Dioxide (22-30) mmol/L BUN (9-20) mg/dL Creatinine (0.66-1.25) mg/dL Glucose (74-99) mg/dL POC Glucose (mg/dL) 129 H 107 H (75-99) mg/dL Calcium (8.4-10.2) mg/dL Total Protein (6.3-8.2) g/dL Albumin (3.5-5.0) g/dL Urine Protein (Negative) Urine Blood (Negative) Ur Leukocyte Esterase (Negative) Urine RBC (0-5) /hpf Urine WBC (0-5) /hpf Urine WBC Clumps (None) /hpf Urine Bacteria (None) /hpf 01/17/21 01/17/21 01/17/21 Range/Units 03:58 04:00 04:00 WBC 25.1 H (3.8-10.6) k/uL RBC 2.75 L (4.30-5.90) m/uL Hgb 8.6 L (13.0-17.5) gm/dL Hct 27.3 L (39.0-53.0) % MCHC (31.0-37.0) g/dL Plt Count 512 H (150-450) k/uL Neutrophils # 23.5 H (1.3-7.7) k/uL Neutrophils # (Manual) (1.3-7.7) k/uL Lymphocytes # 0.5 L (1.0-4.8) k/uL Lymphocytes # (Manual) (1.0-4.8) k/uL Monocytes # (Manual) (0-1.0) k/uL PT 12.6 H (9.0-12.0) sec INR 1.2 H (<1.2) APTT (22.0-30.0) sec Sodium 135 L (137-145) mmol/L Potassium 3.1 L (3.5-5.1) mmol/L Carbon Dioxide 21 L (22-30) mmol/L BUN 25 H (9-20) mg/dL Creatinine 1.68 H (0.66-1.25) mg/dL Glucose 102 H (74-99) mg/dL POC Glucose (mg/dL) (75-99) mg/dL Calcium 8.0 L (8.4-10.2) mg/dL Total Protein 5.6 L (6.3-8.2) g/dL Albumin 2.3 L (3.5-5.0) g/dL Urine Protein (Negative) Urine Blood (Negative) Ur Leukocyte Esterase (Negative) Urine RBC (0-5) /hpf Urine WBC (0-5) /hpf Urine WBC Clumps (None) /hpf Urine Bacteria (None) /hpf 01/17/21 Range/Units 05:52 WBC (3.8-10.6) k/uL RBC (4.30-5.90) m/uL Hgb (13.0-17.5) gm/dL Hct (39.0-53.0) % MCHC (31.0-37.0) g/dL Plt Count (150-450) k/uL Neutrophils # (1.3-7.7) k/uL Neutrophils # (Manual) (1.3-7.7) k/uL Lymphocytes # (1.0-4.8) k/uL Lymphocytes # (Manual) (1.0-4.8) k/uL Monocytes # (Manual) (0-1.0) k/uL PT (9.0-12.0) sec INR (<1.2) APTT (22.0-30.0) sec Sodium (137-145) mmol/L Potassium (3.5-5.1) mmol/L Carbon Dioxide (22-30) mmol/L BUN (9-20) mg/dL Creatinine (0.66-1.25) mg/dL Glucose (74-99) mg/dL POC Glucose (mg/dL) 116 H (75-99) mg/dL Calcium (8.4-10.2) mg/dL Total Protein (6.3-8.2) g/dL Albumin (3.5-5.0) g/dL Urine Protein (Negative) Urine Blood (Negative) Ur Leukocyte Esterase (Negative) Urine RBC (0-5) /hpf Urine WBC (0-5) /hpf Urine WBC Clumps (None) /hpf Urine Bacteria (None) /hpf Microbiology - Last 24 Hours (Table) 01/13/21 06:30 Blood Culture - Preliminary Blood No Growth after 96 hours 01/13/21 06:45 Blood Culture - Preliminary Blood No Growth after 96 hours 01/16/21 10:22 Urine Culture - Preliminary Urine,Clean Catch Assessment and Plan Assessment: 1. History of peripheral arterial disease status post revascularization with a femoral to posterior tibialis bypass with CryoVein on 01/04/2021 by , bypass now down likely related to hypotension 2. 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 Fever 4. Suspected Small bowel obstruction versus ileus 5. Acute leukocytosis 6. Hypotension 7. Shortness of breath 8. History of atrial fibrillation on Heparin drip 9. History of coronary artery disease 10. Tobacco abuse Plan: 1. Records from [facility] reviewed by Dr. Pollack 2. Continue supportive care as recommended by ICU farm equipment engine mechanic. Patient's case discussed with the Dr. York who recommends holding off on qgnrw-vts-jfnh amputation at this time. 3. Left lower extremity femoral to posterior tibialis bypass nonfunctioning, patient had initial femoral to PT bypass on 12/24/20 which occluded with a redo on 01/04/2021. Likely re-occluded related to hypotension. Once patient stabilizes will likely need to undergo left eoysd-yts-ftsi amputation. Vascular surgery will continue to follow. Plan will be to proceed with left xlwfu-uer-qowr amputation once medically stable with regional block. The impression and plan of care has been dictated as directed. Dr. Pollack I performed a history and examination of this patient, discussed the same with the dictator. I agree with the dictator's note ,documented as a scribe. Any additional findings or plans will be noted. <Elida Pollack - Last Filed: 01/17/21 13:54> Objective - Vital Signs Vital signs: Vital Signs Temp 98.7 F 01/17/21 04:00 Pulse 96 01/17/21 07:00 Resp 11 L 01/17/21 07:00 BP 100/65 01/17/21 07:00 Pulse Ox 96 01/17/21 07:00 Intake & Output 01/16/21 01/17/21 01/17/21 18:59 06:59 18:59 Intake Total 3750 3543.616 200 Output Total 1730 1025 120 Balance 2020 2518.616 80 Weight 63.8 kg 64 kg 64 kg Intake: IV 3750 3200 100 .9 @802 100 3481 100 Invasive Line 4 20 Invasive Line 5 20 Invasive Line 6 10 Magnesium Sulfate-D5w Pmx 100 1 gm In Dextrose/Water 1 100ml.bag @ 100 mls/hr IVPB Q1H [facility] Rx#: [id number] Sodium Chloride 0.9% 1, 3000 2000 000 ml @ 999 mls/hr IV . Q1H1M [facility] Rx#:[id number] Intake, IV Titration 343.616 100 Amount Amiodarone 450 mg In 243.616 Dextrose 5% in Water 250 ml @ 0.5 MG/MIN 16.667 mls/hr IV .Q15H [facility] Rx#: [id number] Piperacillin-Tazobactam 3 100 100 .375 gm In Sodium Chloride 0.9% 100 ml @ 25 mls/hr IVPB Q8H [facility] Rx#: [id number] Output: Gastric Drainage 600 100 Urine 1030 375 20 Uretheral (Pollack) 850 Stool 100 Urine/Stool Mix 650 Other: Voiding Method Indwelling Catheter Indwelling Catheter - Labs CBC & Chem 7: 01/17/21 04:00 01/17/21 04:00 Labs: Abnormal Lab Results - Last 24 Hours (Table) 01/16/21 01/16/21 01/17/21 Range/Units 11:46 17:58 00:02 WBC (3.8-10.6) k/uL RBC (4.30-5.90) m/uL Hgb (13.0-17.5) gm/dL Hct (39.0-53.0) % Plt Count (150-450) k/uL Neutrophils # (1.3-7.7) k/uL Neutrophils # (Manual) 38.20 H (1.3-7.7) k/uL Lymphocytes # (1.0-4.8) k/uL Lymphocytes # (Manual) 0.80 L (1.0-4.8) k/uL Monocytes # (Manual) 1.19 H (0-1.0) k/uL PT (9.0-12.0) sec INR (<1.2) APTT 49.8 H (22.0-30.0) sec Sodium (137-145) mmol/L Potassium (3.5-5.1) mmol/L Carbon Dioxide (22-30) mmol/L BUN (9-20) mg/dL Creatinine (0.66-1.25) mg/dL Glucose (74-99) mg/dL POC Glucose (mg/dL) 129 H (75-99) mg/dL Calcium (8.4-10.2) mg/dL Total Protein (6.3-8.2) g/dL Albumin (3.5-5.0) g/dL 01/17/21 01/17/21 01/17/21 Range/Units 03:03 03:58 04:00 WBC (3.8-10.6) k/uL RBC (4.30-5.90) m/uL Hgb (13.0-17.5) gm/dL Hct (39.0-53.0) % Plt Count (150-450) k/uL Neutrophils # (1.3-7.7) k/uL Neutrophils # (Manual) (1.3-7.7) k/uL Lymphocytes # (1.0-4.8) k/uL Lymphocytes # (Manual) (1.0-4.8) k/uL Monocytes # (Manual) (0-1.0) k/uL PT 12.6 H (9.0-12.0) sec INR 1.2 H (<1.2) APTT (22.0-30.0) sec Sodium 135 L (137-145) mmol/L Potassium 3.1 L (3.5-5.1) mmol/L Carbon Dioxide 21 L (22-30) mmol/L BUN 25 H (9-20) mg/dL Creatinine 1.68 H (0.66-1.25) mg/dL Glucose 102 H (74-99) mg/dL POC Glucose (mg/dL) 107 H (75-99) mg/dL Calcium 8.0 L (8.4-10.2) mg/dL Total Protein 5.6 L (6.3-8.2) g/dL Albumin 2.3 L (3.5-5.0) g/dL 01/17/21 01/17/21 Range/Units 04:00 05:52 WBC 25.1 H (3.8-10.6) k/uL RBC 2.75 L (4.30-5.90) m/uL Hgb 8.6 L (13.0-17.5) gm/dL Hct 27.3 L (39.0-53.0) % Plt Count 512 H (150-450) k/uL Neutrophils # 23.5 H (1.3-7.7) k/uL Neutrophils # (Manual) (1.3-7.7) k/uL Lymphocytes # 0.5 L (1.0-4.8) k/uL Lymphocytes # (Manual) (1.0-4.8) k/uL Monocytes # (Manual) (0-1.0) k/uL PT (9.0-12.0) sec INR (<1.2) APTT (22.0-30.0) sec Sodium (137-145) mmol/L Potassium (3.5-5.1) mmol/L Carbon Dioxide (22-30) mmol/L BUN (9-20) mg/dL Creatinine (0.66-1.25) mg/dL Glucose (74-99) mg/dL POC Glucose (mg/dL) 116 H (75-99) mg/dL Calcium (8.4-10.2) mg/dL Total Protein (6.3-8.2) g/dL Albumin (3.5-5.0) g/dL Microbiology - Last 24 Hours (Table) 01/16/21 08:33 Blood Culture - Preliminary Blood No Growth after 24 hours 01/13/21 06:30 Blood Culture - Preliminary Blood No Growth after 96 hours 01/13/21 06:45 Blood Culture - Preliminary Blood No Growth after 96 hours 01/16/21 10:22 Urine Culture - Preliminary Urine,Clean Catch Assessment and Plan Plan: graft occlusion likely multifactorial. Poor outflow/severe disease and sepsis initially with hypotension
[2021-01-17 14:04] LABS: Phosphorus 3.7 mg/dL (2.5-4.5)
[2021-01-17] MEDS ORDERED: [UNRECOGNIZED DRUG - REMARK] IV SCH ×4 (18:00)
[2021-01-17 18:25] LABS: Glucose,Whole Blood 88 mg/dL (75-99)
[2021-01-17] MEDS: HEPARIN SOD,PORK IN 0.45% NACL 25,000 UNIT in 0.45% NACL 1 250ML.BAG IV SCH (18:30)
[2021-01-17 19:24] LABS: Triglycerides 94.1 mg/dL (0.00-149.00)
--- NOTE | 2021-01-17 20:40 | PN ---
PROGRESS NOTE DATE OF SERVICE: 01/17/2021. This 65-year-old gentleman who was admitted with severe infection and a necrotic lesion of the left lower lobe with possible sepsis also had atrial fibrillation with a fast ventricular rate. The patient also had vomiting with coffee-grounds emesis. The possibility of intestinal obstruction is also being considered. Cultures are negative so far, but the patient's white count is 25.1. Patient is on broad-spectrum IV antibiotics. Patient also had renal failure and multiple other acute abnormalities. The patient continues to be stuporous. Past medical history reviewed. Review of systems could not be taken because of the above-mentioned reasons. CURRENT MEDICATIONS: Reviewed. They include Tylenol, amiodarone, aspirin, Symbicort, diltiazem, Colace. Other medications and doses are reviewed. PHYSICAL EXAMINATION: Patient is confused. Pulse is 125, irregular. Blood pressure 126/59, respiration 15, temperature normal, pulse ox 94% on 6 L. HEENT: Conjunctivae normal. NECK: No jugular venous distention. CARDIOVASCULAR: S1, S2 muffled. RESPIRATION: Breath sounds diminished at the bases. A few scattered rhonchi. ABDOMEN: Soft. Minimal distention in the lower part, especially the left lower part present. Bowel sounds diminished. LEGS: Transmetatarsal amputation of the left foot from elsewhere. Otherwise significant erythema and necrotic lesions and tenderness on the left lower leg present, almost below the knee. NERVOUS SYSTEM: Diffusely weak. LABS: WBC 25.2, hemoglobin is 8.2, sodium 135, potassium 3.1. ASSESSMENT: 1. Severe infection and necrotic lesion of the left lower leg with acute severe sepsis, septic shock and hypotension, present on admission. 2. Atrial fibrillation with a fast ventricular rate. 3. Vomiting with coffee-ground emesis with possible upper gastrointestinal bleeding. 4. Abdominal distention, possibly acute small-bowel obstruction versus ileus. 5. Hyponatremia. 6. Hypokalemia. 7. History of recent transmetatarsal amputation as well as femoral bypass surgery 3 weeks ago in [facility]. 8. Peripheral arterial disease. 9. History of coronary artery disease. 10.Chronic anemia. 11.Acute kidney injury with acute tubular necrosis. 12.Chronic obstructive pulmonary disease. 13.Severe peripheral vascular disease. 14.Hypertension. 15.Chronic debility. 16.Severe protein-calorie malnutrition. 17.Sacral decubitus ulcer, stage II. 18.History of nicotine dependence. 19.Gastrointestinal and deep vein thrombosis prophylaxis. 20.Hyponatremia. 21.Hypoalbuminemia with mild to moderate protein-calorie malnutrition. 22.Increased white count. RECOMMENDATIONS AND DISCUSSION: I recommend to continue current medications, continue with symptomatic treatment. Otherwise, continue the broad-spectrum IV antibiotics. Closely follow with Surgery and Cardiology and Pulmonology. Chest x-ray has been reviewed. Labs have been reviewed. Potassium supplementation. Dr. Pollack has seen the patient today and recommended left above-knee amputation once the patient is stabilized. Vascular Surgery is following the patient closely. Overall prognosis once again is extremely guarded, and we will follow the patient along with multiple consultants. Please refer to the orders for further information. Further recommendations to follow. MMODL / IJN: [id number] / MTDD
--- NOTE | 2021-01-17 22:26 | PN ---
PROGRESS NOTE DATE OF SERVICE: 01/17/2021 REASON FOR FOLLOWUP: 1. Left foot ischemia. 2. Possible aspiration pneumonia. INTERVAL HISTORY: The patient is afebrile. The patient is breathing more comfortably today. The patient denies having any chest pain. Did have a cough, not bringing up any sputum. Some nausea but no vomiting. No abdominal pain or pain to the left leg or foot area. PHYSICAL EXAMINATION: Blood pressure 115/64, pulse of 125, temperature 98.1. He is 92% on 6 L nasal cannula. General description is an elderly male lying in bed in no distress. Respiratory system: Unlabored breathing, decreased intensity of breath sounds. No wheeze. Heart S1, S2. Regular rate and rhythm. Abdomen soft, no tenderness. Left foot did have necrotic changes but no redness or drainage. LABS: Hemoglobin is 8.6, white count 25.1. BUN of 25, creatinine is 1.68. DIAGNOSTIC IMPRESSION AND PLAN: 1. Patient with sepsis, concern for possible abdominal source versus aspiration pneumonia. Patient seems to have clinically responded to the Zosyn, as the white count came down; to continue while waiting for the culture to finalize. 2. Patient with left foot ischemia. No definite cellulitis. Keep the area dry and off the pressure and protected. MMODL / IJN: [id number] /
[2021-01-18 00:06] LABS: Glucose,Whole Blood 142 mg/dL (75-99)
[2021-01-18] MEDS: METOPROLOL TARTRATE 50 MG TAB PO SCH ×4 (00:19→23:50)
[2021-01-18] MEDS: GABAPENTIN 300 MG CAP PO SCH ×3 (00:19→17:22)
[2021-01-18] MEDS: MORPHINE SULFATE IR 15 MG TABLET PO SCH ×5 (00:19→23:50)
[2021-01-18] MEDS: HYDROmorphone 0.5 MG/0.5 ML SYRINGE IVP PRN ×3 (00:20→08:57)
[2021-01-18] MEDS: PIPERACILLIN-TAZOBACTAM 3.375 GM in SODIUM CHLORIDE 0.9% 100 ML IVPB SCH ×3 (03:15→20:30)
[2021-01-18] MEDS: SYMBICORT 80-4.5 MCG INHALER INHALATION SCH ×2 (03:56→13:11)
[2021-01-18 05:55] LABS: Albumin 2.3 g/dL (3.5-5.0); Calcium 8.1 mg/dL (8.4-10.2); Magnesium 1.9 mg/dL (1.6-2.3); Phosphorus 2.5 mg/dL (2.5-4.5); Potassium 3.1 mmol/L (3.5-5.1); Total Bilirubin 0.2 mg/dL (0.2-1.3); Total Protein 5.5 g/dL (6.3-8.2)
[2021-01-18] MEDS: HEPARIN SODIUM 1,000 UN/ML (10ML VL) IV PRN ×2 (06:44→14:54)
[2021-01-18] MEDS: POTASSIUM CHLORIDE 20 MEQ in WATER FOR INJECTION 1 100ML.BAG IVPB SCH ×3 (06:44→23:51)
[2021-01-18] MEDS: MULTIVITAMINS, THERA 1 EACH TAB PO SCH (09:13)
[2021-01-18] MEDS: DOCUSATE 100 MG CAP PO SCH (09:13)
[2021-01-18] MEDS: ASPIRIN 81 MG PO SCH (09:13)
[2021-01-18] MEDS: CLOPIDOGREL 75 MG TAB PO SCH (09:13)
--- NOTE | 2021-01-18 09:18 | XR ---
EXAMINATION TYPE: XR abdomen 1V DATE OF EXAM: 01/18/2021 COMPARISON: 01/16/2021 HISTORY: Abdominal distention TECHNIQUE: One view abdominal series FINDINGS: Contrast within the colon. Small bowel loops in improved relative to the previous exam. Surgical machado ge involving the right hip and arthropathy of the left hip. Surgical nolberto overlying the right hip. Question ostomy in the right lower quadrant. Vascular calcifications. Diffuse osteopenia. Previous r ight 12th rib fracture suspected. IMPRESSION: 1. Nonspecific abdomen. Improved appearance of the small bowel with interval marked reduction in dil ation.
--- NOTE | 2021-01-18 09:41 | P.PN ---
Subjective Progress Note Date: 01/18/21 Principal diagnosis: Aspiration pneumonia, A. fib with RVR, SMA syndrome 65-year-old male patient, comes into the hospital because of fever and difficulty breathing of 2 days' duration. Apparently there was a very poor historian. Apparently he also had a left foot transmetatarsal amputation and this was done [facility] approximately 3 weeks ago. He also mentioned he had a previous time bypass surgery. The patient also has other comorbid conditions including chronic atrial fibrillation, coronary artery disease, peripheral vascular disease, COPD, complicated diverticulitis and previous bowel resection and colostomy and Malcolm's pouch. The patient came to us from the [facility]. The patient was apparently having worsening shortness of breath. He was found to be in A. fib RVR at time of admission. Time of admission, he was febrile with a temperature of 100.3 and the patient was also tachycardic with a heart rate in the 120s and pulse ox was 94% on room air oxygen. Initial white cell count was at 5.3 and the patient had a cre atinine of 1.32 with a BUN of 17. Overnight events and was negative. UA was positive for moderate amount of leukocyte esterase with 30 WBCs. Chest x-ray showed moderate bilateral pleural effusion. EKG was consistent with A. fib/RVR. This morning, we got contacted by the medical team as the patient's condition is gotten worse. The patient has developed worsening in A. fib RVR, hypotension with a systolic blood pressure in the mid 70s, pulse ox of 95-99% 15 L of Oxymizer nasal cannula, lactic acid level of 4.5, and a white cell count of 51.1. The patient received 500 mL bolus and currently the patient is running on normal saline at the rate of 100 mL an hour. Based on all this, in ICU transfer was requested. The patient's cultures including urine and blood cultures during this current admission has been negative. The patient is covered with antibiotics and the patient is receiving IV Zosyn as a broad-spectrum antibiotic coverage. Terms of her his adjuvant fibrillation, the patient had been placed on amiodarone drip which is running at 0.5 mg per minute and the patient is on metoprolol 100 mg every 8 hours for rate control and Cardizem drip at 5 mg per hour for rate control. No antiplatelet has been offered that the patient has previous history of GI bleed. With that spoken, the patient developed an acute kidney injury. Creatinine is up to 2.04 from a normal baseline. At the time of my evaluation, the patient had some mild abdominal distention. He had some mild abdominal tenderness there was diffuse. Absent bowel sounds. Orogastric tube has been inserted and the patient has drained approximately 600 mL of gastric material. Nevertheless, there is some yellowish stool like material collecting in his colostomy bag. At the same time, the patient was inspected for his left lower extremity. There is the left femoral pulse. There are nolberto in the left femoral area and in the left lower extremity thigh area which indicates a recent vascular bypass surgery performed probably a fem-pop bypass surgery. At the same time, there was Doppler signals only in the popliteal artery, absent pulses in the left lower extremity, the left foot shows evidence of a transmetatarsal amputation and the surgical wound site is necrotic and gangrenous. There is also necrosis extending in the dorsal aspect of the left foot, the foot itself is cold and there are no pulses in the posterior tibialis and dorsalis pedis area. The area is red and the medial aspect of the malleolus On today's evaluation of 01/17/2021, patient is slightly improved compared to yesterday. Is awake and alert. Note that he continues to have bowel obstruction. Abdomen is slightly distended. Abdomen is filter tender although less compared to yesterday. A CAT scan of the abdomen and pelvis was performed yesterday and the patient had evidence of small bowel ileus. No evidence of any pneumoperitoneum. No evidence of any acute abdomen. Note that the patient was in [facility] and he was evaluated by the surgical team in the past for similar reason and the patient was found to have acute SMA syndrome. The patient underwent EGD and surgical evaluation ultimately he recovered spontaneously. For now, NG tube is in place. Output was noted. Output has been in the order of 200 mL since yesterday. He still has some material coming out of his colostomy bag. In terms of fluid status, triple lumen catheter was inserted yesterday the patient is currently on IV fluids normal saline. He received a total of 2 L of IV fluid and he did not require any pressors. The patient is currently on IV fluids and he is on IV heparin in combination with IV Zosyn. The white cell count is down to 25 and the patient has also improved in terms of his Acute kidney injury. Creatinine is down to 1.6. Potassium level is at 3.[address], BUN is 25, UA was abnormal with clumps of WBCs and the patient remains on IV Zosyn, cultures are still pending for now. Stool for C. diff has been negative. The patient was evaluated by the vascular surgical team. Obviously the patient will need a amputation of the left lower extremity and this will be done once more stable. The acute decompensation that occurred yesterday with essentially related to his small bowel obstruction. General surgery on the case. Consultation was placed and an evaluation has not been done yet. Meanwhile, the patient remains on IV Zosyn. The patient is on IV heparin. Cultures of been negative thus far. He remains nothing by mouth. NG tube is in place. TPN will be initiated as the patient is quite cachectic and malnourished with a Bmi of 17.6. On today's evaluation on 01/18/2021 patient seen in follow-up in the intensive care unit, she is awake and alert, in no acute distress, is currently down to 6 L of oxygen his pulse ox is 90-91%, he does have a very congested cough, he is b ringing up jama and yellow colored phlegm. No hemoptysis, she is hemodynamically significantly more stable compared to 48 hours ago. She is in sinus mechanism with a rate of 94, he is not on any vasopressor support, he is on amiodarone at 0.5 mg/m, and patient has converted to sinus mechanism yesterday in which he remained. He was started on TPN at 32 ML per hour and this is being titrated per dietary recommendations, his maintenance IV fluids 0.9 normal saline at a rate of 100 ML per hour, NG tube remains in place with minimal output in the last 24 hours, abdomen is significantly less distended, nontender, and his colostomy is producing greenish colored stool, but no significant amount of gas. He remains on Zosyn, patient is also on heparin infusion for anti-coagulation. His chest x-ray yesterday showed bilateral infiltrates and pleural effusion. CBC is pending right now, BMP has resulted in showing sodium of 136, potassium is 3.1, chloride is 110, CO2 is 17, BUN of 23 creatinine is 1.43 and his renal function is improving, LFTs are within normal limits. Urinalysis showed poss ibility of underlying urinary tract infection with greater than 182 leukocytes, moderate bacteria, urine culture has shown no growth, blood cultures have been negative as well. Objective - Vital Signs Vital signs: Vital Signs Temp 98.9 F 01/18/21 04:00 Pulse 96 01/18/21 09:00 Resp 26 H 01/18/21 09:00 BP 152/73 01/18/21 09:00 Pulse Ox 88 L 01/18/21 09:00 Intake & Output 01/17/21 01/18/21 01/18/21 18:59 06:59 18:59 Intake Total 4817.673 4980.403 100 Output Total 675 345 30 Balance 912.638 948.403 70 Weight 64 kg Intake: IV 1200 1200 100 .9 @100 1200 1200 100 Intake, IV Titration 327.638 93.403 Amount Heparin Sod,Pork in 0.45% 227.638 93.403 NaCl 25,000 unit In 0.45 % NaCl 1 250ml.bag @ 12 UNITS/KG/HR 7.656 mls/hr IV .Q24H MARTI Rx#: [id number] Piperacillin-Tazobactam 3 100 .375 gm In Sodium Chloride 0.9% 100 ml @ 25 mls/hr IVPB Q8H MARTI Rx#: [id number] Oral 60 Output: Gastric Drainage 100 Urine 375 345 30 Stool 200 Other: Voiding Method Indwelling Catheter Indwelling Catheter - Exam GENERAL EXAM: Alert, pleasant, 65-year-old white male, looks chronically debilitated, and chronically ill, frail, currently awake and alert, oriented 3, on 6 L of oxygen with a pulse ox of 90-91% with frequent congested cough with production of yellow colored phlegm, comfortable in no apparent distress. HEAD: Normocephalic/atraumatic. EYES: Normal reaction of pupils, equal size. Conjunctiva pink, sclera white. NOSE: Clear with pink turbinates. THROAT: No erythema or exudates. NECK: No masses, no JVD, no thyroid enlargement, no adenopathy. CHEST: No chest wall deformity. Symmetrical expansion. LUNGS: Equal air entry with no crackles, wheeze, rhonchi or dullness. CVS: Regular rate and rhythm, normal S1 and S2, no gallops, no murmurs, no rubs ABDOMEN: Abdomen slightly distended. There is direct tenderness. No rebound tensile guarding. Bowel sounds absent. The colostomy site is viable and there is some stool material collecting and abdominal colostomy bag. No organomegaly identified. EXTREMITIES: Extremities the patient has scars of previous vascular bypass surgery and the nolberto are present in the left inguinal area, left medial thigh and left foot just superior to the malleolus. There is some wetness and drainage coming from the foot incision. There is also dry gangrene at the site of the metatarsal or transmetatarsal amputation.There are no Doppler signals in the dorsalis pedis and radial tibialis. There is obviously guarded and the popliteal area and there is palpable pulses in the femoral area MUSCULOSKELETAL: Muscle strength and tone normal. SPINE: No scoliosis or deformity SKIN: No rashes CENTRAL NERVOUS SYSTEM: Alert and oriented -3. No focal deficits, tone is normal in all 4 extremities. PSYCHIATRIC: Alert and oriented -3. Appropriate affect. Intact judgment and i nsight. - Labs CBC & Chem 7: 01/17/21 04:00 01/18/21 04:25 Labs: Abnormal Lab Results - Last 24 Hours (Table) 01/17/21 01/18/21 01/18/21 Range/Units 21:14 00:04 04:25 APTT 53.4 H (22.0-30.0) sec Sodium 136 L (137-145) mmol/L Potassium 3.1 L (3.5-5.1) mmol/L Chloride 110 H (98-107) mmol/L Carbon Dioxide 17 L (22-30) mmol/L BUN 23 H (9-20) mg/dL Creatinine 1.43 H (0.66-1.25) mg/dL Glucose 131 H (74-99) mg/dL POC Glucose (mg/dL) 142 H (75-99) mg/dL Calcium 8.1 L (8.4-10.2) mg/dL Total Protein 5.5 L (6.3-8.2) g/dL Albumin 2.3 L (3.5-5.0) g/dL 01/18/21 Range/Units 05:48 APTT 41.2 H (22.0-30.0) sec Sodium (137-145) mmol/L Potassium (3.5-5.1) mmol/L Chloride (98-107) mmol/L Carbon Dioxide (22-30) mmol/L BUN (9-20) mg/dL Creatinine (0.66-1.25) mg/dL Glucose (74-99) mg/dL POC Glucose (mg/dL) (75-99) mg/dL Calcium (8.4-10.2) mg/dL Total Protein (6.3-8.2) g/dL Albumin (3.5-5.0) g/dL Microbiology - Last 24 Hours (Table) 01/13/21 06:45 Blood Culture - Preliminary Blood No Growth after 120 hours 01/13/21 06:30 Blood Culture - Preliminary Blood No Growth after 120 hours 01/16/21 10:22 Urine Culture - Final Urine,Clean Catch 01/16/21 11:46 Blood Culture - Preliminary Blood No Growth after 24 hours 01/16/21 11:31 Blood Culture - Preliminary Blood No Growth after 24 hours 01/16/21 08:33 Blood Culture - Preliminary Blood No Growth after 24 hours Assessment and Plan Plan: Assessment: #1. Recurrent small bowel obstruction. This is likely due to an underlying SMA syndrome. The patient had a similar episodes 2 weeks back at [facility]. Patient has an NG tube catheter in place. There is positive output and his colostomy site. CAT scan of the abdomen was noted. Note that 70 pneumoperitoneum and the patient remains on IV Zosyn. No clear indication for an acute mesenteric ischemia. #2. Acute hypotension, likely secondary to above with possibly a component of sepsis, systolic blood pressures the mid 70s, the patient was given a liter of bolus of normal saline and his systolic blood pressures up to the 90. Noted the patient responded nicely to fluids and the patient has not required any pressors #3. Acute leukocytosis, improving #4. Acute lactic acidosis, improving and the lactic acid level is down to 1.43 #5. Acute kidney injury, creatinine is improving #6. Acute hypoxic respiratory failure with possible aspiration in addition to chronic bilateral pleural effusions, please refer to the CAT scan of the abdomen that showed chronic bilateral lower lobe pulmonary pleural fluid and atelectasis. #7. Peripheral vascular disease with recent transmetatarsal amputation of the left foot and the patient has dry gangrene, vascular surgery on the case considering a left lower extremity amputation [id number] #8. Coronary artery disease #9. A. fib with RVR currently on a combination of amiodarone drip, and heparin infusion, has converted to sinus rhythm yesterday on 01/17/2021 #10. Abdominal incision suspected bowel obstruction. NG tube is in place and a flat film of the abdomen showed numerous dilated small bowels related to possibility of bowel obstruction #11. History of depression #12. COPD #13. History Diverticulitis requiring bowel resection and colectomy and diverting colostomy with Malcolm's pouch #14. History of bladder injury, iatrogenic in nature and the patient had a surgical repair #15. History of Raynaud's disease #16. Degenerative arthritis plan Plan: Obtain Flat plate film of the abdomen this morning Clamp the NG tube for 6 hours and monitor for increased nausea or vomiting or increased abdominal distention May consider removing the NG tube later on today if does well with clamping of it Continue TPN for nutritional support Continue current antibiotics Pulmonary toileting, Maintain aspiration precautions Follow-up chest x-ray tomorrow IV fluids to KVO Patient has converted to sinus rhythm and there has been no recurrence of A. fib overnight Continues on amiodarone drip and heparin infusion Patient has good urine output, hemodynamically stable, not requiring any vasopressor support Follow-up labs tomorrow including CBC and CMP We'll continue to follow I performed a history & physical examination of the patient and discussed their management with my nurse practitioner, Carolee Robison. I reviewed the nurse practitioner's note and agree with the documented findings and plan of care. Lung sounds are positive for diffuse wheezes throughout the lung noble. The findings and the impression was discussed with the patient. I attest to the documentation by the nurse practitioner. Time with Patient: Greater than 30
--- NOTE | 2021-01-18 10:15 | XR ---
EXAMINATION TYPE: XR chest 1V portable DATE OF EXAM: 01/18/2021 COMPARISON: 01/17/2021 HISTORY: Aspiration pneumonia TECHNIQUE: Single frontal view of the chest is obtained. FINDINGS: Enteric and left IJ tubes are in unchanged positions. Interval worsening of interstitial and airspace disease in the left lung and right lung base with lik mabel bilateral pleural effusions. Cardiac silhouette is unchanged. IMPRESSION: Interval worsening of interstitial and airspace disease in the left lung and right lung base with lik mabel bilateral pleural effusions.
[2021-01-18] MEDS: DILTIAZEM 125 MG in SODIUM CHLORIDE 0.9% 100 ML IV SCH (10:16)
[2021-01-18] MEDS: FAT EMULSION 20% 250 ML in EMPTY BAG 1 BAG IV SCH (10:38)
[2021-01-18] MEDS: PANTOPRAZOLE 40 MG/10 ML VIAL IVP SCH ×2 (10:39→22:05)
--- NOTE | 2021-01-18 12:16 | P.PN ---
Subjective Progress Note Date: 01/18/21 This 65-year-old gentleman with history of peripheral vascular disease with ischemic changes of the left leg for which she had a vascular procedure done. It appears that patient still have problems with ischemia of the left leg. He also developed abdominal distention and pain and it is suspected that patient may have small bowel obstruction or ileus. We're seeing the patient for management of his atrial fibrillation currently patient is on IV amiodarone at 0.5 mg. His heart rate is in the 100-120. We'll continue IV amiodarone as long as patient is nothing by mouth. Further recommendations depend upon the clinical course. 01/18/2021: This patient still remains critically ill. His abdominal pain has improved distances is improved. They're going to clamp NG tube and see if he can tolerate. Patient is in sinus rhythm with frequent APCs. His case also has issues with aspiration pneumonia and ischemic leg. From Cardec standpoint we'll continue with amiodarone as long as patient is nothing by mouth. We'll change to by mouth amiodarone. Once patient is able to swallow. Prognosis guarded Objective - Vital Signs Vital signs: Vital Signs Temp 98.9 F 01/18/21 04:00 Pulse 90 01/18/21 11:00 Resp 28 H 01/18/21 11:00 BP 141/77 01/18/21 11:00 Pulse Ox 93 L 01/18/21 11:00 Intake & Output 01/17/21 01/18/21 01/18/21 18:59 06:59 18:59 Intake Total 6010.480 4017.403 160 Output Total 675 345 330 Balance 912.638 948.403 -170 Weight 64 kg Intake: IV 1200 1200 160 .9 @100 1200 1200 160 Intake, IV Titration 327.638 93.403 Amount Heparin Sod,Pork in 0.45% 227.638 93.403 NaCl 25,000 unit In 0.45 % NaCl 1 250ml.bag @ 12 UNITS/KG/HR 7.656 mls/hr IV .Q24H MARTI Rx#: [id number] Piperacillin-Tazobactam 3 100 .375 gm In Sodium Chloride 0.9% 100 ml @ 25 mls/hr IVPB Q8H MARTI Rx#: [id number] Oral 60 Output: Gastric Drainage 100 Urine 375 345 330 Stool 200 Other: Voiding Method Indwelling Catheter Indwelling Catheter - Exam GENERAL EXAM: Patient is alert and appears to be in moderate distress HEENT: Normocephalic. NECK: No masses, no nuchal rigidity. CHEST: No chest wall deformity. LUNGS: Diminished breath sounds HEART: S1 and S2 normal. Regular heart sounds ABDOMEN: Deferred to the surgeon SKIN: No rashes CENTRAL NERVOUS SYSTEM: Drowsy EXTREMITIES: Ischemic left leg - Labs CBC & Chem 7: 01/17/21 04:00 01/18/21 04:25 Labs: Abnormal Lab Results - Last 24 Hours (Table) 01/17/21 01/18/21 01/18/21 Range/Units 21:14 00:04 04:25 APTT 53.4 H (22.0-30.0) sec Sodium 136 L (137-145) mmol/L Potassium 3.1 L (3.5-5.1) mmol/L Chloride 110 H (98-107) mmol/L Carbon Dioxide 17 L (22-30) mmol/L BUN 23 H (9-20) mg/dL Creatinine 1.43 H (0.66-1.25) mg/dL Glucose 131 H (74-99) mg/dL POC Glucose (mg/dL) 142 H (75-99) mg/dL Calcium 8.1 L (8.4-10.2) mg/dL Total Protein 5.5 L (6.3-8.2) g/dL Albumin 2.3 L (3.5-5.0) g/dL 01/18/21 Range/Units 05:48 APTT 41.2 H (22.0-30.0) sec Sodium (137-145) mmol/L Potassium (3.5-5.1) mmol/L Chloride (98-107) mmol/L Carbon Dioxide (22-30) mmol/L BUN (9-20) mg/dL Creatinine (0.66-1.25) mg/dL Glucose (74-99) mg/dL POC Glucose (mg/dL) (75-99) mg/dL Calcium (8.4-10.2) mg/dL Total Protein (6.3-8.2) g/dL Albumin (3.5-5.0) g/dL Microbiology - Last 24 Hours (Table) 01/16/21 08:33 Blood Culture - Preliminary Blood No Growth after 48 hours 01/13/21 06:45 Blood Culture - Preliminary Blood No Growth after 120 hours 01/13/21 06:30 Blood Culture - Preliminary Blood No Growth after 120 hours 01/16/21 10:22 Urine Culture - Final Urine,Clean Catch 01/16/21 11:46 Blood Culture - Preliminary Blood No Growth after 24 hours 01/16/21 11:31 Blood Culture - Preliminary Blood No Growth after 24 hours Assessment and Plan (1) Ischemic leg Current Visit: Yes Status: Acute Code(s): I99.8 - OTHER DISORDER OF CIRCULATORY SYSTEM SNOMED Code(s): 855756933 (2) Atrial fibrillation with RVR Current Visit: Yes Status: Acute Code(s): I48.91 - UNSPECIFIED ATRIAL FIBRILLATION SNOMED Code(s): 937409897482217 (3) CHF (congestive heart failure) Current Visit: Yes Status: Acute Code(s): I50.9 - HEART FAILURE, UNSPECIFIED SNOMED Code(s): 47695183 (4) Abdominal pain Current Visit: No Status: Acute Code(s): R10.9 - UNSPECIFIED ABDOMINAL PAIN SNOMED Code(s): 48622170 (5) COPD (chronic obstructive pulmonary disease) Current Visit: No Status: Acute Code(s): J44.9 - CHRONIC OBSTRUCTIVE PULMON [place] DISEASE, UNSPECIFIED SNOMED Code(s): 71270261 (6) Coronary artery disease Current Visit: No Status: Acute Code(s): I25.10 - ATHSCL HEART DISEASE OF [place] CORONARY ARTERY W/O ANG PCTRS SNOMED Code(s): 37970319 Plan: Continue IV amiodarone. We'll switch to by mouth amiodarone, Once patient is able to swallow. Patient is being treated for small bowel obstruction and also aspiration pneumonia and ischemic leg. Overall, patient's clinical status is critical
[2021-01-18] MEDS: HYDROmorphone 1 MG/ML 1 ML SYRINGE IVP PRN ×3 (12:26→22:04)
--- NOTE | 2021-01-18 12:55 | P.PN ---
Subjective Progress Note Date: 01/18/21 CHIEF COMPLAINT: Fever HISTORY OF PRESENT ILLNESS: Patient remains in the ICU. Surgical service is following his small bowel obstruction. He has NG tube in place with minimal output. Patient's abdominal distention and pain has improved. He is having output through his ostomy. Abdominal x-ray shows nonspecific abdomen. Improved appearance of the small bowel with interval marked reduction in dilation. Patient's main complaint is pain in his left leg. 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 He is also on amiodarone and IV heparin for his atrial fibrillation. Afebrile. CBC is pending. Sodium 136 potassium 3.1 and magnesium 1.9. Creatinine 1.43 Patient seen and examined with Dr. Medina PHYSICAL EXAM: VITAL SIGNS: Reviewed. GENERAL: Well-developed in no acute distress. HEENT: No sclera icterus. Extraocular movements grossly intact. Moist buccal mucosa. Head is atraumatic, normocephalic. ABDOMEN: Soft. Nondistended. Nontender. ileostomy with dark brown stool NEUROLOGIC: Alert and oriented. Cranial nerves II through XII grossly intact. ASSESSMENT: 1. Small bowel obstruction 2. Recurrent small bowel obstruction and underlying SMA syndrome PLAN: -Continue ICU management -Continue supportive care -Discontinue NG tube -Start clear liquids Physician Pattern Molder note has been reviewed by physician. Signing provider agrees with the documented findings, assessment, and plan of care. Objective - Vital Signs Vital signs: Vital Signs Temp 98.9 F 01/18/21 04:00 Pulse 90 01/18/21 11:00 Resp 28 H 01/18/21 11:00 BP 141/77 01/18/21 11:00 Pulse Ox 93 L 01/18/21 11:00 Intake & Output 01/17/21 01/18/21 01/18/21 18:59 06:59 18:59 Intake Total 4882.908 8914.403 160 Output Total 675 345 330 Balance 912.638 948.403 -170 Weight 64 kg Intake: IV 1200 1200 160 .9 @100 1200 1200 160 Intake, IV Titration 327.638 93.403 Amount Heparin Sod,Pork in 0.45% 227.638 93.403 NaCl 25,000 unit In 0.45 % NaCl 1 250ml.bag @ 12 UNITS/KG/HR 7.656 mls/hr IV .Q24H [facility] Rx#: [id number] Piperacillin-Tazobactam 3 100 .375 gm In Sodium Chloride 0.9% 100 ml @ 25 mls/hr IVPB Q8H [facility] Rx#: [id number] Oral 60 Output: Gastric Drainage 100 Urine 375 345 330 Stool 200 Other: Voiding Method Indwelling Catheter Indwelling Catheter - Labs CBC & Chem 7: 01/17/21 04:00 01/18/21 04:25 Labs: Abnormal Lab Results - Last 24 Hours (Table) 01/17/21 01/18/21 01/18/21 Range/Units 21:14 00:04 04:25 APTT 53.4 H (22.0-30.0) sec Sodium 136 L (137-145) mmol/L Potassium 3.1 L (3.5-5.1) mmol/L Chloride 110 H (98-107) mmol/L Carbon Dioxide 17 L (22-30) mmol/L BUN 23 H (9-20) mg/dL Creatinine 1.43 H (0.66-1.25) mg/dL Glucose 131 H (74-99) mg/dL POC Glucose (mg/dL) 142 H (75-99) mg/dL Calcium 8.1 L (8.4-10.2) mg/dL Total Protein 5.5 L (6.3-8.2) g/dL Albumin 2.3 L (3.5-5.0) g/dL 01/18/21 Range/Units 05:48 APTT 41.2 H (22.0-30.0) sec Sodium (137-145) mmol/L Potassium (3.5-5.1) mmol/L Chloride (98-107) mmol/L Carbon Dioxide (22-30) mmol/L BUN (9-20) mg/dL Creatinine (0.66-1.25) mg/dL Glucose (74-99) mg/dL POC Glucose (mg/dL) (75-99) mg/dL Calcium (8.4-10.2) mg/dL Total Protein (6.3-8.2) g/dL Albumin (3.5-5.0) g/dL Microbiology - Last 24 Hours (Table) 01/16/21 08:33 Blood Culture - Preliminary Blood No Growth after 48 hours 01/13/21 06:45 Blood Culture - Preliminary Blood No Growth after 120 hours 01/13/21 06:30 Blood Culture - Preliminary Blood No Growth after 120 hours 01/16/21 10:22 Urine Culture - Final Urine,Clean Catch 01/16/21 11:46 Blood Culture - Preliminary Blood No Growth after 24 hours 01/16/21 11:31 Blood Culture - Preliminary Blood No Growth after 24 hours
--- NOTE | 2021-01-18 12:58 | P.PN ---
Subjective Progress Note Date: 01/18/21 Patient was seen and examined on the medical floor with acute changes in the morning. Nursing states his respiratory status declined is on a nonrebreather. He had some cardiac changes well as hypotension and he was started on Cardizem as well as amiodarone drip. Had elevation in his WBC to 51.1 from 16.1 yesterday. Hemoglobin 8.9, platelet count 524,000 INR 1.2 sodium 134 potassium 4.0 BUN 22 creatinine 2.04 magnesium 1.3 Plasma lactic acid was 4.5 this morning with a repeat to 1.6. Apparently the patient also had a large amount of dark brown emesis morning. NG tube was placed. Currently is also on a heparin drip for his atrial fibrillation. Records from [facility] upper received today. Patient was apparently hospitalized recently for approximately 4 weeks duration with her discharge may be a week or so ago. At that time there is documentation that he was in hypovolemic shock related to an upper GI bleed and possible obstruction as well as history of atrial fibrillation. On 12/19/2020 it was reported that the patient had a 4.1 L coffee-ground emesis. On 12/24/20 he underwent a initial femoral to posterior tibialis bypass by Dr. Ayala for gangrene and peripheral arterial disease of the left lower extremity. Apparently dad occluded and they did a redo of the femoral to posterior tibial bypass with CryoVein on 01/04/2021 by . Patient also underwent on 12/29/2020 a transmetatarsal amputation of the left foot. Patient seen and examined in the ICU. Patient stating he still has severe pain in the left lower extremity. Patient states abdominal pain has improved some. States pain medication currently not helping. Blood pressures have stabilized. NG tube has been clamped. Labs currently pending. He is on a IV heparin drip. Patient is afebrile. Objective - Vital Signs Vital signs: Vital Signs Temp 98.9 F 01/18/21 04:00 Pulse 93 01/18/21 10:00 Resp 29 H 01/18/21 10:00 BP 152/102 01/18/21 10:00 Pulse Ox 93 L 01/18/21 10:00 Intake & Output 01/17/21 01/18/21 01/18/21 18:59 06:59 18:59 Intake Total 6467.208 1480.403 160 Output Total 675 345 330 Balance 912.638 948.403 -170 Weight 64 kg Intake: IV 1200 1200 160 .9 @100 1200 1200 160 Intake, IV Titration 327.638 93.403 Amount Heparin Sod,Pork in 0.45% 227.638 93.403 NaCl 25,000 unit In 0.45 % NaCl 1 250ml.bag @ 12 UNITS/KG/HR 7.656 mls/hr IV .Q24H [facility] Rx#: [id number] Piperacillin-Tazobactam 3 100 .375 gm In Sodium Chloride 0.9% 100 ml @ 25 mls/hr IVPB Q8H [facility] Rx#: [id number] Oral 60 Output: Gastric Drainage 100 Urine 375 345 330 Stool 200 Other: Voiding Method Indwelling Catheter Indwelling Catheter - Exam General appearance: The patient is alert, oriented, appears in no acute distress. Nonrebreather in place. HET: Head is normocephalic and atraumatic. Neck: Supple without lymphadenopathy. Trachea midline. Abdomen: Soft, mild diffuse tenderness, no guarding or rigidity. Ostomy with li quid brown output. Extremities: Left TMA site well approximated with sutures. Left foot with ischemic changes, dry gangrene at the TMA site, chronic. There are well approximated sutures as well as nolberto in the left lower extremity that are well approximated without any drainage or redness. Nonpalpable pulses at the bypass graft. Palpable bilateral femoral pulses. Left groin with nolberto well approximated without any drainage. Neurological: No focal deficits. Alert and oriented 3. - Labs CBC & Chem 7: 01/17/21 04:00 01/18/21 04:25 Labs: Abnormal Lab Results - Last 24 Hours (Table) 01/17/21 01/18/21 01/18/21 Range/Units 21:14 00:04 04:25 APTT 53.4 H (22.0-30.0) sec Sodium 136 L (137-145) mmol/L Potassium 3.1 L (3.5-5.1) mmol/L Chloride 110 H (98-107) mmol/L Carbon Dioxide 17 L (22-30) mmol/L BUN 23 H (9-20) mg/dL Creatinine 1.43 H (0.66-1.25) mg/dL Glucose 131 H (74-99) mg/dL POC Glucose (mg/dL) 142 H (75-99) mg/dL Calcium 8.1 L (8.4-10.2) mg/dL Total Protein 5.5 L (6.3-8.2) g/dL Albumin 2.3 L (3.5-5.0) g/dL 01/18/21 Range/Units 05:48 APTT 41.2 H (22.0-30.0) sec Sodium (137-145) mmol/L Potassium (3.5-5.1) mmol/L Chloride (98-107) mmol/L Carbon Dioxide (22-30) mmol/L BUN (9-20) mg/dL Creatinine (0.66-1.25) mg/dL Glucose (74-99) mg/dL POC Glucose (mg/dL) (75-99) mg/dL Calcium (8.4-10.2) mg/dL Total Protein (6.3-8.2) g/dL Albumin (3.5-5.0) g/dL Microbiology - Last 24 Hours (Table) 01/13/21 06:45 Blood Culture - Preliminary Blood No Growth after 120 hours 01/13/21 06:30 Blood Culture - Preliminary Blood No Growth after 120 hours 01/16/21 10:22 Urine Culture - Final Urine,Clean Catch 01/16/21 11:46 Blood Culture - Preliminary Blood No Growth after 24 hours 01/16/21 11:31 Blood Culture - Preliminary Blood No Growth after 24 hours 01/16/21 08:33 Blood Culture - Preliminary Blood No Growth after 24 hours Assessment and Plan Assessment: 1. History of peripheral arterial disease status post revascularization with a femoral to posterior tibialis bypass with CryoVein on 01/04/2021 by , bypass now down likely related to hypotension 2. 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 Fever 4. Suspected Small bowel obstruction versus ileus 5. Acute leukocytosis 6. Hypotension 7. Shortness of breath 8. History of atrial fibrillation on Heparin drip 9. History of coronary artery disease 10. Tobacco abuse Plan: 1. Records from [facility] reviewed by Dr. Pollack 2. Continue supportive care as recommended by ICU coke drawer. Patient's case discussed with the Dr. York who recommends holding off on [id number] amputation at this time. 3. Left lower extremity femoral to posterior tibialis bypass nonfunctioning, patient had initial femoral to PT bypass on 12/24/20 which occluded with a redo on 01/04/2021. Likely re-occluded related to hypotension. Once patient stabilizes will need to undergo left [id number] amputation. Vascular surgery will continue to follow. Plan will be to proceed with left fxsap-xsu-adpi amputation once medically stable with regional block. Tentatively planned for Thursday. The impression and plan of care has been dictated as directed. Dr. Pollack I performed a history and examination of this patient, discussed the same with the dictator. I agree with the dictator's note ,documented as a scribe. Any additional findings or plans will be noted.
[2021-01-18] MEDS: AMIODARONE 450 MG in DEXTROSE 5% IN WATER 250 ML IV SCH ×2 (13:05)
[2021-01-18 13:25] LABS: Glucose,Whole Blood 151 mg/dL (75-99)
--- NOTE | 2021-01-18 17:40 | PN ---
PROGRESS NOTE DATE OF SERVICE: 01/18/2021 REASON FOR FOLLOWUP: Possible aspiration pneumonia, left foot ischemia. INTERVAL HISTORY: The patient is afebrile. The patient is feeling better, breathing comfortably. The patient is currently off the pressor support. Denies any chest pain. He did have a cough, not bringing up any sputum. No abdominal pain or pain to the left foot area. PHYSICAL EXAMINATION: Blood pressure 144/79, pulse of 130, temperature 98.1. General description is an elderly male lying in bed in no distress. Respiratory system: Unlabored breathing, decreased breath sounds at the bases. No wheeze. Heart S1, S2. Regular rate and rhythm. Abdomen soft, no tenderness. Left foot with necrotic changes but no worsening and no redness. LABS: BUN of 23, creatinine is 1.43. DIAGNOSTIC IMPRESSION AND PLAN: Patient admitted to ICU for sepsis, possible component of aspiration pneumonia. Patient is covered with Zosyn; to continue. Try to obtain a sputum sample to narrow down the antibiotics and monitor his clinical course closely. Continue with supportive care. MMODL / IJN: [id number] /
[2021-01-18 19:00] LABS: Glucose,Whole Blood 149 mg/dL (75-99)
[2021-01-18] MEDS: HEPARIN SOD,PORK IN 0.45% NACL 25,000 UNIT in 0.45% NACL 1 250ML.BAG IV SCH (20:06)
[2021-01-18 21:38] LABS: Calcium 8.3 mg/dL (8.4-10.2); Potassium 3.2 mmol/L (3.5-5.1)
[2021-01-18] MEDS: [UNRECOGNIZED DRUG - REMARK] IV SCH ×4 (22:05)
[2021-01-19] MEDS: SYMBICORT 80-4.5 MCG INHALER INHALATION SCH ×2 (01:08→14:34)
[2021-01-19] MEDS: GABAPENTIN 300 MG CAP PO SCH ×3 (01:09→16:19)
[2021-01-19] MEDS: POTASSIUM CHLORIDE 20 MEQ in WATER FOR INJECTION 1 100ML.BAG IVPB SCH (01:46)
[2021-01-19] MEDS: HYDROmorphone 1 MG/ML 1 ML SYRINGE IVP PRN ×5 (02:45→20:42)
[2021-01-19] MEDS: HEPARIN SOD,PORK IN 0.45% NACL 25,000 UNIT in 0.45% NACL 1 250ML.BAG IV SCH (03:35)
[2021-01-19] MEDS: PIPERACILLIN-TAZOBACTAM 3.375 GM in SODIUM CHLORIDE 0.9% 100 ML IVPB SCH ×3 (03:45→19:08)
[2021-01-19 06:23] LABS: Basophils # (A) 0.1 k/uL (0-0.2); Basophils % (A) 0 %; Eosinophils # (A) 0.3 k/uL (0-0.7); Eosinophils % (A) 2 %; HCT 26.2 % (39.0-53.0); HGB 8.2 gm/dL (13.0-17.5); Hypochromasia Moderate; Lymphocytes # (A) 0.8 k/uL (1.0-4.8); Lymphocytes % (A) 4 %; MCHC 31.4 g/dL (31.0-37.0); MCV 98.6 fL (80.0-100.0); Macrocytosis Slight; Mean Platelet Volume 7.7; Monocytes # (A) 1.2 k/uL (0-1.0); Monocytes % (A) 6 %; Neutrophils # (A) 18.1 k/uL (1.3-7.7); Neutrophils % (A) 87 %; Platelet Count 560 k/uL (150-450); RBC 2.66 m/uL (4.30-5.90); RDW 15.6 % (11.5-15.5); WBC 20.7 k/uL (3.8-10.6)
[2021-01-19 06:57] LABS: Albumin 2.2 g/dL (3.5-5.0); Calcium 8.4 mg/dL (8.4-10.2); Magnesium 1.7 mg/dL (1.6-2.3); Phosphorus 2.1 mg/dL (2.5-4.5); Potassium 3.7 mmol/L (3.5-5.1); Total Bilirubin 0.3 mg/dL (0.2-1.3); Total Protein 5.5 g/dL (6.3-8.2)
[2021-01-19] MEDS: [UNRECOGNIZED DRUG - REMARK] IV SCH ×4 (07:03)
[2021-01-19] MEDS: MORPHINE SULFATE IR 15 MG TABLET PO SCH ×4 (07:03→19:02)
[2021-01-19] MEDS: HEPARIN SODIUM 1,000 UN/ML (10ML VL) IV PRN (07:15)
--- NOTE | 2021-01-19 09:36 | P.PN ---
Subjective Progress Note Date: 01/19/21 Principal diagnosis: Small bowel obstruction Patient remains in the ICU. Denies abdominal pain. Denies nausea or vomiting. Patient was started on clear liquids yesterday. Tolerating thus far. Small amount of ostomy output this morning in the bag. With blood cell count improved at 20. Objective - Vital Signs Vital signs: Vital Signs Temp 98.1 F 01/19/21 08:00 Pulse 78 01/19/21 08:00 Resp 22 01/19/21 08:00 BP 129/82 01/19/21 08:00 Pulse Ox 92 L 01/19/21 08:00 Intake & Output 01/18/21 01/19/21 01/19/21 18:59 06:59 18:59 Intake Total 1162.391 683.206 237.259 Output Total 785 680 450 Balance 377.391 3.206 -212.741 Weight 64 kg 63.5 kg Intake: IV 839 600 200 .9 @100 320 240 40 Fat Emulsion 20% 250 ml 189 In Empty Bag 1 bag @ 21 mls/hr IV MoWeFr [facility] Rx#: [id number] Mvi, Adult No.4 with Vit 330 360 K 10 ml Trace (Conc-1Ml/ Dose) 1 ml Sodium Acetate 10 meq In Amino Acid 5%- D20w+Lytes*E* 1,000 ml @ 30 mls/hr IV .Q24H [facility] Rx #:[id number] Sodium Acetate 10 meq In 160 Amino Acid 5%-D20w+Lytes* E* 1,000 ml @ 80 mls/hr IV .BY DURATION [facility] Rx#: [id number] Intake, IV Titration 323.391 83.206 37.259 Amount Amiodarone 450 mg In 250 Dextrose 5% in Water 250 ml @ 0.5 MG/MIN 16.667 mls/hr IV .Q15H [facility] Rx#: [id number] Heparin Sod,Pork in 0.45% 73.391 83.206 37.259 NaCl 25,000 unit In 0.45 % NaCl 1 250ml.bag @ 12 UNITS/KG/HR 7.656 mls/hr IV .Q24H [facility] Rx#: [id number] Output: Urine 785 480 150 Stool 200 300 Other: Voiding Method Indwelling Catheter Indwelling Catheter Indwelling Catheter - Exam Abdomen: Soft, nondistended, no appreciable tenderness, left-sided ostomy with small amount of liquid stool - Labs CBC & Chem 7: 01/19/21 05:30 01/19/21 05:30 Labs: Abnormal Lab Results - Last 24 Hours (Table) 01/18/21 01/18/21 01/18/21 Range/Units 12:57 13:23 18:59 WBC (3.8-10.6) k/uL RBC (4.30-5.90) m/uL Hgb (13.0-17.5) gm/dL Hct (39.0-53.0) % RDW (11.5-15.5) % Plt Count (150-450) k/uL Neutrophils # (1.3-7.7) k/uL Lymphocytes # (1.0-4.8) k/uL Monocytes # (0-1.0) k/uL APTT 39.6 H (22.0-30.0) sec Potassium (3.5-5.1) mmol/L Chloride (98-107) mmol/L Carbon Dioxide (22-30) mmol/L BUN (9-20) mg/dL Creatinine (0.66-1.25) mg/dL Glucose (74-99) mg/dL POC Glucose (mg/dL) 151 H 149 H (75-99) mg/dL Calcium (8.4-10.2) mg/dL Phosphorus (2.5-4.5) mg/dL Total Protein (6.3-8.2) g/dL Albumin (3.5-5.0) g/dL 01/18/21 01/19/21 01/19/21 Range/Units 21:09 05:30 05:30 WBC 20.7 H (3.8-10.6) k/uL RBC 2.66 L (4.30-5.90) m/uL Hgb 8.2 L (13.0-17.5) gm/dL Hct 26.2 L (39.0-53.0) % RDW 15.6 H (11.5-15.5) % Plt Count 560 H (150-450) k/uL Neutrophils # 18.1 H (1.3-7.7) k/uL Lymphocytes # 0.8 L (1.0-4.8) k/uL Monocytes # 1.2 H (0-1.0) k/uL APTT (22.0-30.0) sec Potassium 3.2 L (3.5-5.1) mmol/L Chloride 111 H 112 H (98-107) mmol/L Carbon Dioxide 18 L 19 L (22-30) mmol/L BUN 21 H (9-20) mg/dL Creatinine 1.31 H 1.32 H (0.66-1.25) mg/dL Glucose 126 H 106 H (74-99) mg/dL POC Glucose (mg/dL) (75-99) mg/dL Calcium 8.3 L (8.4-10.2) mg/dL Phosphorus 2.1 L (2.5-4.5) mg/dL Total Protein 5.5 L (6.3-8.2) g/dL Albumin 2.2 L (3.5-5.0) g/dL 01/19/21 Range/Units 05:30 WBC (3.8-10.6) k/uL RBC (4.30-5.90) m/uL Hgb (13.0-17.5) gm/dL Hct (39.0-53.0) % RDW (11.5-15.5) % Plt Count (150-450) k/uL Neutrophils # (1.3-7.7) k/uL Lymphocytes # (1.0-4.8) k/uL Monocytes # (0-1.0) k/uL APTT 42.2 H (22.0-30.0) sec Potassium (3.5-5.1) mmol/L Chloride (98-107) mmol/L Carbon Dioxide (22-30) mmol/L BUN (9-20) mg/dL Creatinine (0.66-1.25) mg/dL Glucose (74-99) mg/dL POC Glucose (mg/dL) (75-99) mg/dL Calcium (8.4-10.2) mg/dL Phosphorus (2.5-4.5) mg/dL Total Protein (6.3-8.2) g/dL Albumin (3.5-5.0) g/dL Microbiology - Last 24 Hours (Table) 01/13/21 06:30 Blood Culture - Final Blood No Growth after 144 hours 01/13/21 06:45 Blood Culture - Final Blood No Growth after 144 hours 01/16/21 11:46 Blood Culture - Preliminary Blood No Growth after 48 hours 01/16/21 11:31 Blood Culture - Preliminary Blood No Growth after 48 hours 01/16/21 08:33 Blood Culture - Preliminary Blood No Growth after 48 hours Assessment and Plan (1) Small bowel obstruction Narrative/Plan: Patient seems to be improving as it pertains to the small bowel obstruction. Continue clear liquids for now. Monitor for aspiration potential. Continue antibiotics per infectious disease. Will follow. Current Visit: Yes Status: Acute Code(s): K56.609 - UNSP INTESTNL OBST, UNSP TO PARTIAL VERSUS COMPLETE OBST SNOMED Code(s): 600501563
--- NOTE | 2021-01-19 09:43 | XR ---
EXAMINATION TYPE: XR chest 1V portable DATE OF EXAM: 01/19/2021 COMPARISON: 01/18/2021 INDICATION: Aspiration pneumonia TECHNIQUE: Single frontal view of the chest is obtained. FINDINGS: The heart size is normal. The pulmonary vasculature is prominent. There is a consolidation through the left perihilar region and left lower lobe infiltrate is present. Mild right lower lobe infiltrate is present. There is increasing small right pleural effusion. A sma ll left pleural effusion remains present. Left central venous catheter tip within the superior vena c eliseo is unchanged. IMPRESSION: 1. Increasing small right pleural effusion. 2. Stable left perihilar left lower lobe and right basilar infiltrates.
[2021-01-19] MEDS: ASPIRIN 81 MG PO SCH (09:44)
[2021-01-19] MEDS: METOPROLOL TARTRATE 50 MG TAB PO SCH ×3 (09:44→19:02)
[2021-01-19] MEDS: PANTOPRAZOLE 40 MG/10 ML VIAL IVP SCH ×2 (09:44→20:42)
[2021-01-19] MEDS: DOCUSATE 100 MG CAP PO SCH (09:44)
[2021-01-19] MEDS: MULTIVITAMINS, THERA 1 EACH TAB PO SCH (09:44)
[2021-01-19] MEDS: AMIODARONE 200 MG TAB PO SCH ×2 (09:44→20:41)
[2021-01-19] MEDS ORDERED: FUROSEMIDE 10 MG/ML 4 ML VIAL IV STA (09:49)
--- NOTE | 2021-01-19 09:51 | P.PN ---
Subjective Progress Note Date: 01/19/21 65-year-old male patient, comes into the hospital because of fever and difficulty breathing of 2 days' duration. Apparently there was a very poor historian. Apparently he also had a left foot transmetatarsal amputation and this was done [facility] approximately 3 weeks ago. He also mentioned he had a previous time bypass surgery. The patient also has other comorbid conditions including chronic atrial fibrillation, coronary artery disease, peripheral vascular disease, COPD, complicated diverticulitis and previous bowel resection and colostomy and Malcolm's pouch. The patient came to us from the [facility]. The patient was apparently having worsening shortness of breath. He was found to be in A. fib RVR at time of admission. Time of admission, he was febrile with a temperature of 100.3 and the patient was also tachycardic with a heart rate in the 120s and pulse ox was 94% on room air oxygen. Initial white cell count was at 5.3 and the patient had a cr eatinine of 1.32 with a BUN of 17. Overnight events and was negative. UA was positive for moderate amount of leukocyte esterase with 30 WBCs. Chest x-ray showed moderate bilateral pleural effusion. EKG was consistent with A. fib/RVR. This morning, we got contacted by the medical team as the patient's condition is gotten worse. The patient has developed worsening in A. fib RVR, hypotension wi th a systolic blood pressure in the mid 70s, pulse ox of 95-99% 15 L of Oxymizer nasal cannula, lactic acid level of 4.5, and a white cell count of 51.1. The patient received 500 mL bolus and currently the patient is running on normal saline at the rate of 100 mL an hour. Based on all this, in ICU transfer was requested. The patient's cultures including urine and blood cultures during this current admission has been negative. The patient is covered with antibiotics and the patient is receiving IV Zosyn as a broad-spectrum antibiotic coverage. Terms of her his adjuvant fibrillation, the patient had been placed on amiodarone drip which is running at 0.5 mg per minute and the patient is on metoprolol 100 mg every 8 hours for rate control and Cardizem drip at 5 mg per hour for rate control. No antiplatelet has been offered that the patient has previous history of GI bleed. With that spoken, the patient developed an acute kidney injury. Creatinine is up to 2.04 from a normal baseline. At the time of my evaluation, the patient had some mild abdominal distention. He had some mild abdominal tenderness there was diffuse. Absent bowel sounds. Orogastric tube has been inserted and the patient has drained approximately 600 mL of gastric material. Nevertheless, there is some yellowish stool like material collecting in his colostomy bag. At the same time, the patient was inspected for his left lower extremity. There is the left femoral pulse. There are nolberto in the left femoral area and in the left lower extremity thigh area which indicates a recent vascular bypass surgery performed probably a fem-pop bypass surgery. At the same time, there was Doppler signals only in the popliteal artery, absent pulses in the left lower extremity, the left foot shows evidence of a transmetatarsal amputation and the surgical wound site is necrotic and gangrenous. There is also necrosis extending in the dorsal aspect of the left foot, the foot itself is cold and there are no pulses in the posterior tibialis and dorsalis pedis area. The area is red and the medial aspect of the malleolus On today's evaluation of 01/17/2021, patient is slightly improved compared to yesterday. Is awake and alert. Note that he continues to have bowel obstruction. Abdomen is slightly distended. Abdomen is turpentine distiller although less compared to yesterday. A CAT scan of the abdomen and pelvis was performed yesterday and the patient had evidence of small bowel ileus. No evidence of any pneumoperitoneum. No evidence of any acute abdomen. 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 The patient underwent EGD and surgical evaluation ultimately he recovered spontaneously. For now, NG tube is in place. Output was noted. Output has been in the order of 200 mL since yesterday. He still has some material coming out of his colostomy bag. In terms of fluid status, triple lumen catheter was inserted yesterday the patient is currently on IV fluids normal saline. He received a total of 2 L of IV fluid and he did not require any pressors. The luis argueta is currently on IV fluids and he is on IV heparin in combination with IV Zosyn. The white cell count is down to 25 and the patient has also improved in terms of his Acute kidney injury. Creatinine is down to 1.6. Potassium level is at 3.[address], BUN is 25, UA was abnormal with clumps of WBCs and the patient remains on IV Zosyn, cultures are still pending for now. Stool for C. diff has been negative. The patient was evaluated by the vascular surgical team. Obviously the patient will need a amputation of the left lower extremity and this will be done once more stable. The acute decompensation that occurred yesterday with essentially related to his small bowel obstruction. General surgery on the case. Consultation was placed and an evaluation has not been done yet. Meanwhile, the patient remains on IV Zosyn. The patient is on IV heparin. Cultures of been negative thus far. He remains nothing by mouth. NG tube is in place. TPN will be initiated as the patient is quite cachectic and malnourished with a Bmi of 17.6. On today's evaluation on 01/18/2021 patient seen in follow-up in the intensive care unit, she is awake and alert, in no acute distress, is currently down to 6 L of oxygen his pulse ox is 90-91%, he does have a very congested cough, he is bringing up jama and yellow colored phlegm. No hemoptysis, she is hemodynamically significantly more stable compared to 48 hours ago. She is in sinus mechanism with a rate of 94, he is not on any vasopressor support, he is on amiodarone at 0.5 mg/m, and patient has converted to sinus mechanism yest in which he remained. He was started on TPN at 32 ML per hour and this is being titrated per dietary recommendations, his maintenance IV fluids 0.9 normal saline at a rate of 100 ML per hour, NG tube remains in place with minimal output in the last 24 hours, abdomen is significantly less distended, nontender, and his colostomy is producing greenish colored stool, but no significant amount of gas. He remains on Zosyn, patient is also on heparin infusion for anti- coagulation. His chest x-ray yesterday showed bilateral infiltrates and pleural effusion. CBC is pending right now, BMP has resulted in showing sodium of 136, potassium is 3.1, chloride is 110, CO2 is 17, BUN of 23 creatinine is 1.43 and his renal function is improving, LFTs are within normal limits. Urinalysis showed possibility of underlying urinary tract infection with greater than 182 leukocytes, moderate bacteria, urine culture has shown no growth, blood cultures have been negative as well. 01/19/2021, patient's NG tube is removed and the patient was offered some follow liquid diet. There is some output in the colostomy bag. Abdomen is nondistended. Bowel sounds are still hypoactive and they're present. General surgeries on the case. No significant abdominal pain. The left foot is obviously necrotic and the patient had dry gangrene and passively were scheduling this patient sometime next week to undergo an amputation of the left lower extremity. Otherwise, his white cell count remains elevated at 20.7 although this is improving. Hemoglobin is at 8.2. Electrolytes show improvement in the renal function and creatinine is down to 1.32. The patient has a component of non-anion gap metabolic acidosis. He Is at 7 with a serum bicarb of 19. His arousable and awake. He is on TPN for nutritional support. He is on oxygen at 6 L per minute nasal cannula. He remains on empiric antibiotic coverage with IV Zosyn. Cardiac rhythm is currently sinus. The patient remains on IV heparin. Nevertheless, the repeat chest x-ray was done today showed increase in bilateral pulmonary infiltrates and interstitial edema and developed of consolidation of the left upper lobe along with some worsening in the right-sided pleural effusion. Note that his echocardiogram showed an ejection fraction of 40% without any significant valvular abnormalities. Objective - Vital Signs Vital signs: Vital Signs Temp 98.1 F 01/19/21 08:00 Pulse 76 01/19/21 09:00 Resp 19 01/19/21 09:00 BP 145/75 01/19/21 09:00 Pulse Ox 94 L 01/19/21 09:00 Intake & Output 01/18/21 01/19/21 01/19/21 18:59 06:59 18:59 Intake Total 1162.391 683.206 237.259 Output Total 785 680 450 Balance 377.391 3.206 -212.741 Weight 64 kg 63.5 kg Intake: IV 839 600 200 .9 @100 320 240 40 Fat Emulsion 20% 250 ml 189 In Empty Bag 1 bag @ 21 mls/hr IV [facility] Rx#: [id number] Mvi, Adult No.4 with Vit 330 360 K 10 ml Trace (Conc-1Ml/ Dose) 1 ml Sodium Acetate 10 meq In Amino Acid 5%- D20w+Lytes*E* 1,000 ml @ 30 mls/hr IV .Q24H [facility] Rx #:[id number] Sodium Acetate 10 meq In 160 Amino Acid 5%-D20w+Lytes* E* 1,000 ml @ 80 mls/hr IV .BY DURATION [facility] Rx#: [id number] Intake, IV Titration 323.391 83.206 37.259 Amount Amiodarone 450 mg In 250 Dextrose 5% in Water 250 ml @ 0.5 MG/MIN 16.667 mls/hr IV .Q15H [facility] Rx#: [id number] Heparin Sod,Pork in 0.45% 73.391 83.206 37.259 NaCl 25,000 unit In 0.45 % NaCl 1 250ml.bag @ 12 UNITS/KG/HR 7.656 mls/hr IV .Q24H [facility] Rx#: [id number] Output: Urine 785 480 150 Stool 200 300 Other: Voiding Method Indwelling Catheter Indwelling Catheter Indwelling Catheter - Exam Appearance the patient is tachypneic, awake and alert, currently on oxygen and the patient is currently on 10 L about 2 by nasal cannula and the patient was taken off the nonrebreather facemask. and the patient also has an NG tube in place. His pulse ox currently is in the low 90s. Head exam was generally normal. There was no scleral icterus or corneal arcus. Mucous membranes were moist. Neck was supple and without jugular venous distension, thyromegaly, or carotid bruits. Carotids were easily palpable bilaterally. There was no adenopathy. Lungs sounds are diminished in the patient's crackles in the mid and lower lung field bilaterally Cardiac exam revealed the PMI to be normally situated and sized. The is irregular and the patient is an 80 fibrillation with rapid ventricular response at this point in time. The first and second heart sounds were normal and physiologic splitting of the second heart sound was noted. There were no murmurs, rubs, clicks, or gallops. Abdomen slightly distended. There is non tenderness. No rebound tensile guarding. Bowel sounds present. The colostomy site is viable and there is some stool material collecting and abdominal colostomy bag. No organomegaly identified. Extremities the patient has scars of previous vascular bypass surgery and the nolberto are present in the left inguinal area, left medial thigh and left foot just superior to the malleolus. There is some wetness and drainage coming from the foot incision. There is also dry gangrene at the site of the metatarsal or transmetatarsal amputation.There are no Doppler signals in the dorsalis pedis and radial tibialis. There is obviously guarded and the popliteal area and there is palpable pulses in the femoral area Neurologically the patient is awake and alert and there is no focal neurological deficit. He remains a poor historian. - Labs CBC & Chem 7: 01/19/21 05:30 01/19/21 05:30 Labs: Abnormal Lab Results - Last 24 Hours (Table) 01/18/21 01/18/21 01/18/21 Range/Units 12:57 13:23 18:59 WBC (3.8-10.6) k/uL RBC (4.30-5.90) m/uL Hgb (13.0-17.5) gm/dL Hct (39.0-53.0) % RDW (11.5-15.5) % Plt Count (150-450) k/uL Neutrophils # (1.3-7.7) k/uL Lymphocytes # (1.0-4.8) k/uL Monocytes # (0-1.0) k/uL APTT 39.6 H (22.0-30.0) sec Potassium (3.5-5.1) mmol/L Chloride (98-107) mmol/L Carbon Dioxide (22-30) mmol/L BUN (9-20) mg/dL Creatinine (0.66-1.25) mg/dL Glucose (74-99) mg/dL POC Glucose (mg/dL) 151 H 149 H (75-99) mg/dL Calcium (8.4-10.2) mg/dL Phosphorus (2.5-4.5) mg/dL Total Protein (6.3-8.2) g/dL Albumin (3.5-5.0) g/dL 01/18/21 01/19/21 01/19/21 Range/Units 21:09 05:30 05:30 WBC 20.7 H (3.8-10.6) k/uL RBC 2.66 L (4.30-5.90) m/uL Hgb 8.2 L (13.0-17.5) gm/dL Hct 26.2 L (39.0-53.0) % RDW 15.6 H (11.5-15.5) % Plt Count 560 H (150-450) k/uL Neutrophils # 18.1 H (1.3-7.7) k/uL Lymphocytes # 0.8 L (1.0-4.8) k/uL Monocytes # 1.2 H (0-1.0) k/uL APTT (22.0-30.0) sec Potassium 3.2 L (3.5-5.1) mmol/L Chloride 111 H 112 H (98-107) mmol/L Carbon Dioxide 18 L 19 L (22-30) mmol/L BUN 21 H (9-20) mg/dL Creatinine 1.31 H 1.32 H (0.66-1.25) mg/dL Glucose 126 H 106 H (74-99) mg/dL POC Glucose (mg/dL) (75-99) mg/dL Calcium 8.3 L (8.4-10.2) mg/dL Phosphorus 2.1 L (2.5-4.5) mg/dL Total Protein 5.5 L (6.3-8.2) g/dL Albumin 2.2 L (3.5-5.0) g/dL 01/19/21 Range/Units 05:30 WBC (3.8-10.6) k/uL RBC (4.30-5.90) m/uL Hgb (13.0-17.5) gm/dL Hct (39.0-53.0) % RDW (11.5-15.5) % Plt Count (150-450) k/uL Neutrophils # (1.3-7.7) k/uL Lymphocytes # (1.0-4.8) k/uL Monocytes # (0-1.0) k/uL APTT 42.2 H (22.0-30.0) sec Potassium (3.5-5.1) mmol/L Chloride (98-107) mmol/L Carbon Dioxide (22-30) mmol/L BUN (9-20) mg/dL Creatinine (0.66-1.25) mg/dL Glucose (74-99) mg/dL POC Glucose (mg/dL) (75-99) mg/dL Calcium (8.4-10.2) mg/dL Phosphorus (2.5-4.5) mg/dL Total Protein (6.3-8.2) g/dL Albumin (3.5-5.0) g/dL Microbiology - Last 24 Hours (Table) 01/13/21 06:30 Blood Culture - Final Blood No Growth after 144 hours 01/13/21 06:45 Blood Culture - Final Blood No Growth after 144 hours 01/16/21 11:46 Blood Culture - Preliminary Blood No Growth after 48 hours 01/16/21 11:31 Blood Culture - Preliminary Blood No Growth after 48 hours 01/16/21 08:33 Blood Culture - Preliminary Blood No Growth after 48 hours Assessment and Plan Plan: 1 recurrent small bowel obstruction. This is likely due to an underlying SMA syndrome. The patient had a similar episodes 2 weeks back at [facility]. Patient has an NG tube catheter in place. There is positive output and his colostomy site. CAT scan of the abdomen was noted. Note that 70 pneumoperitoneum and the patient remains on IV Zosyn. No clear indication for an acute mesenteric ischemia. Over the past 24-48 hours, the patient improved clinically. Abdominal pain subsided. The patient is taken for liquid diet and NG tube has been discontinued. No emesis. I doubt pain for now. White cell count is improving. Hemodynamically stable on no pressors. 2 acute hypotension, likely secondary to above with possibly a component of sepsis, systolic blood pressures the mid 70s, the patient was given a liter of bolus of normal saline and his systolic blood pressures up to the 90. Noted the patient responded nicely to fluids and the patient has not required any pressors 3 acute leukocytosis, improving 4 acute lactic acidosis, improving and the lactic acid level is down to 1.6 5 acute kidney injury, creatinine is improving is currently down to 1.3 6 acute hypoxic respiratory failure with possible aspiration in addition to chronic bilateral pleural effusions, please refer to the CAT scan of the abdomen that showed chronic bilateral lower lobe pulmonary pleural fluid and atelectasis. There is worsening in the chest x-ray finding with worsening of interstitial edema and consolidation. Keep IV Zosyn. IV fluids will be changed to KVO and the patient will be given Lasix 40 mg 1 now and may be repeated later in the evening. Currently on 10 L of oxygen by nasal cannula and the patient remains on IV heparin. 7 peripheral vascular disease with recent transmetatarsal amputation of the left foot and the patient has dry gangrene, vascular surgery on the case considering a left lower extremity amputation [id number] 8 coronary artery disease 9 A. fib with RVR currently on a combination of metoprolol and the patient will be started on oral amiodarone today, still on IV heparin , rhythm is back to sinus 10. Abdominal incision suspected bowel obstruction. NG tube is in place and a flat film of the abdomen showed numerous dilated small bowels related to possibility of bowel obstruction 11 history of depression 12 COPD 13 history Diverticulitis requiring bowel resection and colectomy and diverting colostomy with Malcolm's pouch 14 history of bladder injury, iatrogenic in nature and the patient had a surgical repair 15 history of Raynaud's disease 16 degenerative arthritis plan Plan Extremely critical condition Continue TPN for nutritional support as the patient is significantly malnourished and he clear liquid diet Continue IV fluids at KVO Continued IV Zosyn Continue IV heparin He has a facial Lasix 40 mg IV 1 and this may be repeated later on the evening Vascular surgery is on standby for a [id number] position of the left lower extremity Continue the rest of the supportive care. Condition is obviously critical and outcome in general is poor baseline above-mentioned comorbidities. Reviewed some of the records that were forwarded from [facility]. The patient had a SMA syndrome. He has undergone various vascular surgeries and interventions and currently has a dry gangrene in his left foot. Monitor the ileostomy output. Monitor renal function. Extremities critical condition with high risk of mortality based on the above- mentioned comorbidities. We'll continue to follow.
[2021-01-19] MEDS ORDERED: POTASSIUM PHOSPHATE 10 MMOL in SODIUM CHLORIDE 0.9% 100 ML IV ONE (10:00)
--- NOTE | 2021-01-19 10:15 | P.PN ---
Subjective Progress Note Date: 01/18/21 Principal diagnosis: Recurrent small bowel obstruction/SMA syndrome Acute hypotension/possible septic shock Acute renal injury Acute hypoxic respiratory failure/aspiration A. fib with RVR 65-year-old male patient, comes into the hospital because of fever and difficulty breathing of 2 days' duration. Apparently there was a very poor historian. Apparently he also had a left foot transmetatarsal amputation and this was done [facility] approximately 3 weeks ago. He also mentioned he had a previous time bypass surgery. The patient also has other comorbid conditions including chronic atrial fibrillation, coronary artery disease, pe ripheral vascular disease, COPD, complicated diverticulitis and previous bowel resection and colostomy and Malcolm's pouch. The patient came to us from the medical [facility]. The patient was apparently having worsening shortness of breath. He was found to be in A. fib RVR at time of admission. Time of admission, he was febrile with a temperature of 100.3 and the patient was also tachycardic with a heart rate in the 120s and pulse ox was 94% on room air oxygen. Initial white cell count was at 5.3 and the patient had a creatinine of 1.32 with a BUN of 17. Overnight events and was negative. UA was positive for moderate amount of leukocyte esterase with 30 WBCs. Chest x-ray showed moderate bilateral pleural effusion. EKG was consistent with A. fib/RVR. Objective - Vital Signs Vital signs: Vital Signs Temp 98.9 F 01/18/21 04:00 Pulse 93 01/18/21 10:00 Resp 29 H 01/18/21 10:00 BP 152/102 01/18/21 10:00 Pulse Ox 93 L 01/18/21 10:00 Intake & Output 01/17/21 01/18/21 01/18/21 18:59 06:59 18:59 Intake Total 2814.151 5401.403 160 Output Total 675 345 330 Balance 912.638 948.403 -170 Weight 64 kg Intake: IV 1200 1200 160 .9 @100 1200 1200 160 Intake, IV Titration 327.638 93.403 Amount Heparin Sod,Pork in 0.45% 227.638 93.403 NaCl 25,000 unit In 0.45 % NaCl 1 250ml.bag @ 12 UNITS/KG/HR 7.656 mls/hr IV .Q24H [facility] Rx#: [id number] Piperacillin-Tazobactam 3 100 .375 gm In Sodium Chloride 0.9% 100 ml @ 25 mls/hr IVPB Q8H [facility] Rx#: [id number] Oral 60 Output: Gastric Drainage 100 Urine 375 345 330 Stool 200 Other: Voiding Method Indwelling Catheter Indwelling Catheter - Exam GENERAL EXAM: Alert, pleasant, 65-year-old white male, looks chronically debilitated, and chronically ill, frail, currently awake and alert, oriented 3, on 6 L of oxygen with a pulse ox of 90-91% with frequent congested cough with production of yellow colored phlegm, comfortable in no apparent distress. NECK: No masses, no JVD, no thyroid enlargement, no adenopathy. CHEST: No chest wall deformity. Symmetrical expansion. LUNGS: Equal air entry with no crackles, wheeze, rhonchi or dullness. CVS: Regular rate and rhythm, normal S1 and S2, no gallops, no murmurs, no rubs ABDOMEN: Abdomen slightly distended. There is direct tenderness. No rebound tensile guarding. Bowel sounds absent. The colostomy site is viable EXTREMITIES: Extremities the patient has scars of previous vascular bypass surgery and the nolberto are present in the left inguinal area, left medial thigh and left foot just superior to the malleolus. MUSCULOSKELETAL: Muscle strength and tone normal. CENTRAL NERVOUS SYSTEM: Alert and oriented -3. No focal deficits, tone is normal in all 4 extremities. - Labs CBC & Chem 7: 01/19/21 05:30 01/19/21 05:30 Labs: Abnormal Lab Results - Last 24 Hours (Table) 01/17/21 01/18/21 01/18/21 Range/Units 21:14 00:04 04:25 APTT 53.4 H (22.0-30.0) sec Sodium 136 L (137-145) mmol/L Potassium 3.1 L (3.5-5.1) mmol/L Chloride 110 H (98-107) mmol/L Carbon Dioxide 17 L (22-30) mmol/L BUN 23 H (9-20) mg/dL Creatinine 1.43 H (0.66-1.25) mg/dL Glucose 131 H (74-99) mg/dL POC Glucose (mg/dL) 142 H (75-99) mg/dL Calcium 8.1 L (8.4-10.2) mg/dL Total Protein 5.5 L (6.3-8.2) g/dL Albumin 2.3 L (3.5-5.0) g/dL 01/18/21 Range/Units 05:48 APTT 41.2 H (22.0-30.0) sec Sodium (137-145) mmol/L Potassium (3.5-5.1) mmol/L Chloride (98-107) mmol/L Carbon Dioxide (22-30) mmol/L BUN (9-20) mg/dL Creatinine (0.66-1.25) mg/dL Glucose (74-99) mg/dL POC Glucose (mg/dL) (75-99) mg/dL Calcium (8.4-10.2) mg/dL Total Protein (6.3-8.2) g/dL Albumin (3.5-5.0) g/dL Microbiology - Last 24 Hours (Table) 01/13/21 06:45 Blood Culture - Preliminary Blood No Growth after 120 hours 01/13/21 06:30 Blood Culture - Preliminary Blood No Growth after 120 hours 01/16/21 10:22 Urine Culture - Final Urine,Clean Catch 01/16/21 11:46 Blood Culture - Preliminary Blood No Growth after 24 hours 01/16/21 11:31 Blood Culture - Preliminary Blood No Growth after 24 hours 01/16/21 08:33 Blood Culture - Preliminary Blood No Growth after 24 hours Assessment and Plan Assessment: 1. Recurrent small bowel obstruction/SMA syndrome - NG tube in place; abdominal flat plate reveals numerous dilated small bowels related to obstruction - remains on IV Zosyn. No clear indication for an acute mesenteric ischemia. Patient remains on TPN for nutritional support - Repeat abdominal x-ray tomorrow morning 2. Acute hypotension, likely related to sepsis, systolic blood pressures the mid 70s; patient responded nicely to fluids and the patient has not required any pressors 3. Acute leukocytosis/lactic acidosis/possible sepsis; improving; lactic acid is down to 1.43; continue with IV Zosyn as indicated above 4. Acute kidney injury, creatinine is improving with IV fluid hydration; we will continue to monitor renal function and electrolytes 5. Acute hypoxic respiratory failure with possible aspiration in addition to chronic bilateral pleural effusions; patient remains on IV Zosyn as indicated above; we will monitor chest x-ray periodically 6. Peripheral vascular disease with recent transmetatarsal amputation of the left foot; patient has dry gangrene, vascular surgery on the case; possibility of left lower extremity above-knee amputation 7. A. fib with RVR; NSR now; currently on a combination of amiodarone drip, and heparin infusion, has converted to sinus rhythm yesterday on 01/17/2021 8. COPD; not in exacerbation; continue with home inhaler therapy DVT prophylaxis; SCDs/IV heparin CODE STATUS; DO NOT RESUSCITATE
--- NOTE | 2021-01-19 13:28 | P.PN ---
Subjective Progress Note Date: 01/19/21 Principal diagnosis: right lower extremity ischemia patient seen and examined. having continued breathing issues. Denies any pain in the TMA or left leg. Objective - Vital Signs Vital signs: Vital Signs Temp 98.1 F 01/19/21 08:00 Pulse 87 01/19/21 10:00 Resp 28 H 01/19/21 10:00 BP 123/66 01/19/21 10:00 Pulse Ox 88 L 01/19/21 10:00 Intake & Output 01/18/21 01/19/21 01/19/21 18:59 06:59 18:59 Intake Total 1162.391 683.206 717.259 Output Total 349 964 3162 Balance 377.391 3.206 -477.741 Weight 64 kg 63.5 kg Intake: IV 839 600 530 .9 @100 320 240 80 Fat Emulsion 20% 250 ml 189 In Empty Bag 1 bag @ 21 mls/hr IV [facility] Rx#: [id number] Mvi, Adult No.4 with Vit 330 360 K 10 ml Trace (Conc-1Ml/ Dose) 1 ml Sodium Acetate 10 meq In Amino Acid 5%- D20w+Lytes*E* 1,000 ml @ 30 mls/hr IV .Q24H [facility] Rx #:[id number] Potassium Phosphate 10 50 mmol In Sodium Chloride 0 .9% 100 ml @ 50 mls/hr IV ONCE ONE Rx#:[id number] Sodium Acetate 10 meq In 400 Amino Acid 5%-D20w+Lytes* E* 1,000 ml @ 80 mls/hr IV .BY DURATION [facility]ARTI Rx#: [id number] Intake, IV Titration 323.391 83.206 37.259 Amount Amiodarone 450 mg In 250 Dextrose 5% in Water 250 ml @ 0.5 MG/MIN 16.667 mls/hr IV .Q15H [facility] Rx#: [id number] Heparin Sod,Pork in 0.45% 73.391 83.206 37.259 NaCl 25,000 unit In 0.45 % NaCl 1 250ml.bag @ 12 UNITS/KG/HR 7.656 mls/hr IV .Q24H [facility] Rx#: [id number] Oral 150 Output: Urine 785 480 895 Stool 200 300 Other: Voiding Method Indwelling Catheter Indwelling Catheter Indwelling Catheter - Exam left lower extremity tma site with dry gangrene. No pulse or signal within the bypass. Calf is warm without tenderness. - Constitutional General appearance: Present: disheveled, severe distress, thin - EENT Eyes: Present: PERRLA - Respiratory Respiratory: bilateral: diminished, wheezing - Cardiovascular Rhythm: regular - Gastrointestinal General gastrointestinal: Absent: distended - Psychiatric Psychiatric: Absent: A&O x's 3, appropriate affect, intact judgment & insight - Labs CBC & Chem 7: 01/19/21 05:30 01/19/21 05:30 Labs: Abnormal Lab Results - Last 24 Hours (Table) 01/18/21 01/18/21 01/18/21 Range/Units 12:57 13:23 18:59 WBC (3.8-10.6) k/uL RBC (4.30-5.90) m/uL Hgb (13.0-17.5) gm/dL Hct (39.0-53.0) % RDW (11.5-15.5) % Plt Count (150-450) k/uL Neutrophils # (1.3-7.7) k/uL Lymphocytes # (1.0-4.8) k/uL Monocytes # (0-1.0) k/uL APTT 39.6 H (22.0-30.0) sec Potassium (3.5-5.1) mmol/L Chloride (98-107) mmol/L Carbon Dioxide (22-30) mmol/L BUN (9-20) mg/dL Creatinine (0.66-1.25) mg/dL Glucose (74-99) mg/dL POC Glucose (mg/dL) 151 H 149 H (75-99) mg/dL Calcium (8.4-10.2) mg/dL Phosphorus (2.5-4.5) mg/dL Total Protein (6.3-8.2) g/dL Albumin (3.5-5.0) g/dL 01/18/21 01/19/21 01/19/21 Range/Units 21:09 05:30 05:30 WBC 20.7 H (3.8-10.6) k/uL RBC 2.66 L (4.30-5.90) m/uL Hgb 8.2 L (13.0-17.5) gm/dL Hct 26.2 L (39.0-53.0) % RDW 15.6 H (11.5-15.5) % Plt Count 560 H (150-450) k/uL Neutrophils # 18.1 H (1.3-7.7) k/uL Lymphocytes # 0.8 L (1.0-4.8) k/uL Monocytes # 1.2 H (0-1.0) k/uL APTT (22.0-30.0) sec Potassium 3.2 L (3.5-5.1) mmol/L Chloride 111 H 112 H (98-107) mmol/L Carbon Dioxide 18 L 19 L (22-30) mmol/L BUN 21 H (9-20) mg/dL Creatinine 1.31 H 1.32 H (0.66-1.25) mg/dL Glucose 126 H 106 H (74-99) mg/dL POC Glucose (mg/dL) (75-99) mg/dL Calcium 8.3 L (8.4-10.2) mg/dL Phosphorus 2.1 L (2.5-4.5) mg/dL Total Protein 5.5 L (6.3-8.2) g/dL Albumin 2.2 L (3.5-5.0) g/dL 01/19/21 Range/Units 05:30 WBC (3.8-10.6) k/uL RBC (4.30-5.90) m/uL Hgb (13.0-17.5) gm/dL Hct (39.0-53.0) % RDW (11.5-15.5) % Plt Count (150-450) k/uL Neutrophils # (1.3-7.7) k/uL Lymphocytes # (1.0-4.8) k/uL Monocytes # (0-1.0) k/uL APTT 42.2 H (22.0-30.0) sec Potassium (3.5-5.1) mmol/L Chloride (98-107) mmol/L Carbon Dioxide (22-30) mmol/L BUN (9-20) mg/dL Creatinine (0.66-1.25) mg/dL Glucose (74-99) mg/dL POC Glucose (mg/dL) (75-99) mg/dL Calcium (8.4-10.2) mg/dL Phosphorus (2.5-4.5) mg/dL Total Protein (6.3-8.2) g/dL Albumin (3.5-5.0) g/dL Microbiology - Last 24 Hours (Table) 01/16/21 08:33 Blood Culture - Preliminary Blood No Growth after 72 hours 01/13/21 06:30 Blood Culture - Final Blood No Growth after 144 hours 01/13/21 06:45 Blood Culture - Final Blood No Growth after 144 hours 01/16/21 11:46 Blood Culture - Preliminary Blood No Growth after 48 hours 01/16/21 11:31 Blood Culture - Preliminary Blood No Growth after 48 hours Assessment and Plan Assessment: 1. History of peripheral arterial disease status post revascularization with a femoral to posterior tibialis bypass with CryoVein on 01/04/2021 by , bypass now down likely related to hypotension 2. 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 Fever 4. Suspected Small bowel obstruction versus ileus 5. Acute leukocytosis 6. Hypotension 7. Shortness of breath 8. History of atrial fibrillation on Heparin drip 9. History of coronary artery disease 10. Tobacco abuse Plan: Will require above knee amputation but due to his respiratory status and current medical issues we will plan for early next week when cleared per ICU team and medicine.
[2021-01-19 13:53] LABS: Glucose,Whole Blood 126 mg/dL (75-99)
[2021-01-19] MEDS: amLODIPine 5 MG TAB PO SCH (16:19)
[2021-01-19 17:44] LABS: Glucose,Whole Blood 138 mg/dL (75-99)
[2021-01-19] MEDS: POTASSIUM PHOSPHATE IV SCH ×14 (20:42→21:53)
[2021-01-19] MEDS: MAGNESIUM SULFATE IV SCH ×14 (20:42→21:53)
[2021-01-19] MEDS: [UNRECOGNIZED DRUG - OTHER] IV SCH ×14 (20:42→21:53)
[2021-01-19] MEDS: SODIUM ACETATE IV SCH ×14 (20:42→21:53)
--- NOTE | 2021-01-19 21:36 | PN ---
PROGRESS NOTE DATE OF SERVICE: 01/19/2021 REASON FOR FOLLOWUP: Aspiration pneumonia and left foot ischemia. INTERVAL HISTORY: The patient is afebrile. The patient is breathing more comfortably. The patient denies having any chest pain. He did have a cough, not bringing up any sputum. No abdominal pain or diarrhea. PHYSICAL EXAMINATION: Blood pressure is 125/69, pulse of , temperature of 98. He is 91% on 8 L nasal cannula. General description is an elderly male lying in bed in no distress. Respiratory system: Unlabored breathing, decreased intensity of breath sounds. No wheeze. Heart S1, S2. Regular rate and rhythm. Abdomen soft, no tenderness. Left foot did have necrotic changes, but no worsening. LABS: Hemoglobin is 8.8, white count 20.7, creatinine 1.32. DIAGNOSTIC IMPRESSION AND PLAN: Patient with a fever, elevated white count concerning for possible aspiration pneumonia, abdominal source. The patient is currently covered with Zosyn; to continue while monitoring his clinical course closely. Prognosis remains guarded. Continue with supportive care. MMODL / IJN: [id number] /
[2021-01-20] MEDS: MORPHINE SULFATE IR 15 MG TABLET PO SCH ×4 (00:37→19:28)
[2021-01-20] MEDS: METOPROLOL TARTRATE 50 MG TAB PO SCH ×3 (00:37→16:12)
[2021-01-20] MEDS: GABAPENTIN 300 MG CAP PO SCH ×3 (00:40→16:12)
[2021-01-20 00:49] LABS: Glucose,Whole Blood 148 mg/dL (75-99)
[2021-01-20 01:14] LABS: Calcium 8.6 mg/dL (8.4-10.2)
[2021-01-20 02:11] LABS: Potassium 3.3 mmol/L (3.5-5.1)
[2021-01-20] MEDS: HEPARIN SOD,PORK IN 0.45% NACL 25,000 UNIT in 0.45% NACL 1 250ML.BAG IV SCH (03:30)
[2021-01-20] MEDS: PIPERACILLIN-TAZOBACTAM 3.375 GM in SODIUM CHLORIDE 0.9% 100 ML IVPB SCH ×3 (03:45→21:01)
[2021-01-20] MEDS: SYMBICORT 80-4.5 MCG INHALER INHALATION SCH ×2 (04:00→13:14)
[2021-01-20 05:02] LABS: Basophils # (A) 0.1 k/uL (0-0.2); Basophils % (A) 0 %; Eosinophils # (A) 0.1 k/uL (0-0.7); Eosinophils % (A) 1 %; HCT 27.8 % (39.0-53.0); HGB 8.6 gm/dL (13.0-17.5); Hypochromasia Slight; Lymphocytes # (A) 0.8 k/uL (1.0-4.8); Lymphocytes % (A) 4 %; MCH 30.6 pg (25.0-35.0); MCHC 31.1 g/dL (31.0-37.0); MCV 98.4 fL (80.0-100.0); Macrocytosis Slight; Mean Platelet Volume 7.2; Monocytes # (A) 1.6 k/uL (0-1.0); Monocytes % (A) 8 %; Neutrophils # (A) 17.8 k/uL (1.3-7.7); Neutrophils % (A) 86 %; Platelet Count 447 k/uL (150-450); RBC 2.82 m/uL (4.30-5.90); RDW 15.9 % (11.5-15.5); WBC 20.8 k/uL (3.8-10.6)
[2021-01-20 05:58] LABS: Albumin 2.2 g/dL (3.5-5.0); Calcium 8.5 mg/dL (8.4-10.2); Magnesium 1.8 mg/dL (1.6-2.3); Phosphorus 2.6 mg/dL (2.5-4.5); Potassium 3.3 mmol/L (3.5-5.1); Total Bilirubin 0.4 mg/dL (0.2-1.3); Total Protein 5.3 g/dL (6.3-8.2)
[2021-01-20] MEDS: HYDROmorphone 1 MG/ML 1 ML SYRINGE IVP PRN ×4 (06:06→21:00)
[2021-01-20] MEDS: POTASSIUM CHLORIDE 20 MEQ in WATER FOR INJECTION 1 100ML.BAG IVPB SCH ×4 (06:07→21:01)
[2021-01-20] MEDS ORDERED: FUROSEMIDE 10 MG/ML 4 ML VIAL IV STA ×2 (07:08→14:52)
--- NOTE | 2021-01-20 07:08 | P.PN ---
Subjective Progress Note Date: 01/20/21 65-year-old male patient, comes into the hospital because of fever and difficulty breathing of 2 days' duration. Apparently there was a very poor historian. Apparently he also had a left foot transmetatarsal amputation and this was done [facility] approximately 3 weeks ago. He also mentioned he had a previous time bypass surgery. The patient also has other comorbid conditions including chronic atrial fibrillation, coronary artery disease, peripheral vascular disease, COPD, complicated diverticulitis and previous bowel resection and colostomy and Malcolm's pouch. The patient came to us from the [facility]. The patient was apparently having worsening shortness of breath. He was found to be in A. fib RVR at time of admission. Time of admission, he was febrile with a temperature of 100.3 and the patient was also tachycardic with a heart rate in the 120s and pulse ox was 94% on room air oxygen. Initial white cell count was at 5.3 and the patient had a cr eatinine of 1.32 with a BUN of 17. Overnight events and was negative. UA was positive for moderate amount of leukocyte esterase with 30 WBCs. Chest x-ray showed moderate bilateral pleural effusion. EKG was consistent with A. fib/RVR. This morning, we got contacted by the medical team as the patient's condition is gotten worse. The patient has developed worsening in A. fib RVR, hypotension wi th a systolic blood pressure in the mid 70s, pulse ox of 95-99% 15 L of Oxymizer nasal cannula, lactic acid level of 4.5, and a white cell count of 51.1. The patient received 500 mL bolus and currently the patient is running on normal saline at the rate of 100 mL an hour. Based on all this, in ICU transfer was requested. The patient's cultures including urine and blood cultures during this current admission has been negative. The patient is covered with antibiotics and the patient is receiving IV Zosyn as a broad-spectrum antibiotic coverage. Terms of her his adjuvant fibrillation, the patient had been placed on amiodarone drip which is running at 0.5 mg per minute and the patient is on metoprolol 100 mg every 8 hours for rate control and Cardizem drip at 5 mg per hour for rate control. No antiplatelet has been offered that the patient has previous history of GI bleed. With that spoken, the patient developed an acute kidney injury. Creatinine is up to 2.04 from a normal baseline. At the time of my evaluation, the patient had some mild abdominal distention. He had some mild abdominal tenderness there was diffuse. Absent bowel sounds. Orogastric tube has been inserted and the patient has drained approximately 600 mL of gastric material. Nevertheless, there is some yellowish stool like material collecting in his colostomy bag. At the same time, the patient was inspected for his left lower extremity. There is the left femoral pulse. There are nolberto in the left femoral area and in the left lower extremity thigh area which indicates a recent vascular bypass surgery performed probably a fem-pop bypass surgery. At the same time, there was Doppler signals only in the popliteal artery, absent pulses in the left lower extremity, the left foot shows evidence of a transmetatarsal amputation and the surgical wound site is necrotic and gangrenous. There is also necrosis extending in the dorsal aspect of the left foot, the foot itself is cold and there are no pulses in the posterior tibialis and dorsalis pedis area. The area is red and the medial aspect of the malleolus On today's evaluation of 01/17/2021, patient is slightly improved compared to yesterday. Is awake and alert. Note that he continues to have bowel obstruction. Abdomen is slightly distended. Abdomen is casing running machine tender although less compared to yesterday. A CAT scan of the abdomen and pelvis was performed yesterday and the patient had evidence of small bowel ileus. No evidence of any pneumoperitoneum. No evidence of any acute abdomen. 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 The patient underwent EGD and surgical evaluation ultimately he recovered spontaneously. For now, NG tube is in place. Output was noted. Output has been in the order of 200 mL since yesterday. He still has some material coming out of his colostomy bag. In terms of fluid status, triple lumen catheter was inserted yesterday the patient is currently on IV fluids normal saline. He received a total of 2 L of IV fluid and he did not require any pressors. The luis argueta is currently on IV fluids and he is on IV heparin in combination with IV Zosyn. The white cell count is down to 25 and the patient has also improved in terms of his Acute kidney injury. Creatinine is down to 1.6. Potassium level is at 3.[address], BUN is 25, UA was abnormal with clumps of WBCs and the patient remains on IV Zosyn, cultures are still pending for now. Stool for C. diff has been negative. The patient was evaluated by the vascular surgical team. Obviously the patient will need a amputation of the left lower extremity and this will be done once more stable. The acute decompensation that occurred yesterday with essentially related to his small bowel obstruction. General surgery on the case. Consultation was placed and an evaluation has not been done yet. Meanwhile, the patient remains on IV Zosyn. The patient is on IV heparin. Cultures of been negative thus far. He remains nothing by mouth. NG tube is in place. TPN will be initiated as the patient is quite cachectic and malnourished with a Bmi of 17.6. On today's evaluation on 01/18/2021 patient seen in follow-up in the intensive care unit, she is awake and alert, in no acute distress, is currently down to 6 L of oxygen his pulse ox is 90-91%, he does have a very congested cough, he is bringing up jama and yellow colored phlegm. No hemoptysis, she is hemodynamically significantly more stable compared to 48 hours ago. She is in sinus mechanism with a rate of 94, he is not on any vasopressor support, he is on amiodarone at 0.5 mg/m, and patient has converted to sinus mechanism yest in which he remained. He was started on TPN at 32 ML per hour and this is being titrated per dietary recommendations, his maintenance IV fluids 0.9 normal saline at a rate of 100 ML per hour, NG tube remains in place with minimal output in the last 24 hours, abdomen is significantly less distended, nontender, and his colostomy is producing greenish colored stool, but no significant amount of gas. He remains on Zosyn, patient is also on heparin infusion for anti- coagulation. His chest x-ray yesterday showed bilateral infiltrates and pleural effusion. CBC is pending right now, BMP has resulted in showing sodium of 136, potassium is 3.1, chloride is 110, CO2 is 17, BUN of 23 creatinine is 1.43 and his renal function is improving, LFTs are within normal limits. Urinalysis showed possibility of underlying urinary tract infection with greater than 182 leukocytes, moderate bacteria, urine culture has shown no growth, blood cultures have been negative as well. 01/19/2021, patient's NG tube is removed and the patient was offered some follow liquid diet. There is some output in the colostomy bag. Abdomen is nondistended. Bowel sounds are still hypoactive and they're present. General surgeries on the case. No significant abdominal pain. The left foot is obviously necrotic and the patient had dry gangrene and passively were scheduling this patient sometime next week to undergo an amputation of the left lower extremity. Otherwise, his white cell count remains elevated at 20.7 although this is improving. Hemoglobin is at 8.2. Electrolytes show improvement in the renal function and creatinine is down to 1.32. The patient has a component of non-anion gap metabolic acidosis. He Is at 7 with a serum bicarb of 19. His arousable and awake. He is on TPN for nutritional support. He is on oxygen at 6 L per minute nasal cannula. He remains on empiric antibiotic coverage with IV Zosyn. Cardiac rhythm is currently sinus. The patient remains on IV heparin. Nevertheless, the repeat chest x-ray was done today showed increase in bilateral pulmonary infiltrates and interstitial edema and developed of consolidation of the left upper lobe along with some worsening in the right-sided pleural effusion. Note that his echocardiogram showed an ejection fraction of 40% without any significant valvular abnormalities. 01/20/2021, the patient is awake and alert and communicating. He has a congested cough. Unable to bring up much of sputum. Nevertheless, he seems to be comfortable and his breathing is nonlabored and he is currently on oxygen at 8 L per minute with a saturation above 90%. His chest x-ray showing diffuse bilateral pulmonary infiltrates more so in the upper lobes and bilateral pleural effusions. He was given a dose of Lasix yesterday and his IV fluids was cut down to KVO. Following his Lasix, the patient showed adequate diuresis with without approximately 2.9 L of a negative fluid balance over the past 24 hours. In terms of his feeding, the patient is currently having limited amount of oral intake. He has some functionality in his colostomy bag. His bowel sounds are sluggish. No abdominal pain or distention. NG tube has been removed. No nausea or emesis. We have supplemented his nutrition with TPN for nutritional support and the patient is currently receiving TPN at the rate of 80 mL an hour. His IV fluids are otherwise at KVO. In terms of his blood work and electrolytes, the patient's PTT is therapeutic while being on IV heparin. His creatinine is down to 1.38 which is improved compared to yesterday. The rest of the electrodes are normal. White cell count remains elevated at 20.8 hemoglobin of 8.6. He is having bouts of 80 fibrillation still. He goes into A. fib paroxysmal along sun sinus rhythm. He is currently on IV heparin as mentioned. He is also on amiodarone which was switched to oral and the patient is currently on oral amiodarone at a dose of 400 mg by mouth twice a day. The patient is also on metoprolol 100 mg every 8 hours. He is on Symbicort as maintenance regarding his COPD and he needs to be started on DuoNeb nebulized treatments around the clock. An additional dose of Lasix will be given to him today. His previous echocardiogram showed an ejection fraction of around 40%. The patient is being followed up with vascular surgery. He has a dry gangrene of the left foot and the patient will need a left lower extremity amputation [id number] probably early next week once his condition is more stable. Objective - Vital Signs Vital signs: Vital Signs Temp 96.7 F L 01/20/21 04:00 Pulse 81 01/20/21 06:00 Resp 13 01/20/21 06:00 BP 86/46 01/20/21 05:00 Pulse Ox 94 L 01/20/21 05:00 Intake & Output 01/19/21 01/19/21 01/20/21 06:59 18:59 06:59 Intake Total 392.598 6773.259 852.741 Output Total 680 3545 1690 Balance 3.206 -2097.741 -837.259 Weight 63.5 kg 63 kg Intake: IV 600 1260 640 .9 @100 240 200 240 Mvi, Adult No.4 with Vit 360 240 K 10 ml Trace (Conc-1Ml/ Dose) 1 ml Sodium Acetate 10 meq In Amino Acid 5%- D20w+Lytes*E* 1,000 ml @ 30 mls/hr IV .Q24H [facility] Rx #:[id number] Potassium Phosphate 10 100 mmol In Sodium Chloride 0 .9% 100 ml @ 50 mls/hr IV ONCE ONE Rx#:[id number] Sodium Acetate 10 meq In 960 160 Amino Acid 5%-D20w+Lytes* E* 1,000 ml @ 80 mls/hr IV .BY DURATION MARTI Rx#: [id number] Intake, IV Titration 83.206 37.259 212.741 Amount Heparin Sod,Pork in 0.45% 83.206 37.259 212.741 NaCl 25,000 unit In 0.45 % NaCl 1 250ml.bag @ 12 UNITS/KG/HR 7.656 mls/hr IV .Q24H MARTI Rx#: [id number] Oral 150 Output: Urine 480 3245 790 Stool 200 300 900 Other: Voiding Method Indwelling Catheter Indwelling Catheter Indwelling Catheter - Exam Appearance the patient is tachypneic, awake and alert, currently on oxygen and the patient is currently on 8 L by nasal cannula and the patient was taken off the nonrebreather facemask. and the patient also has an NG tube in place. His pulse ox currently is in the low 90s. Head exam was generally normal. There was no scleral icterus or corneal arcus. Mucous membranes were moist. Neck was supple and without jugular venous distension, thyromegaly, or carotid bruits. Carotids were easily palpable bilaterally. There was no adenopathy. Lungs sounds are diminished in the patient's crackles in the mid and lower lung field bilaterally Cardiac exam revealed the PMI to be normally situated and sized. The is irregular and the patient is an 80 fibrillation with rapid ventricular response at this point in time. The first and second heart sounds were normal and physi ologic splitting of the second heart sound was noted. There were no murmurs, rubs, clicks, or gallops. Abdomen nonulcer on distended. There is non tenderness. No rebound tensile guarding. Bowel sounds present. The colostomy site is viable and there is some stool material collecting and abdominal colostomy bag. No organomegaly identified. Extremities the patient has scars of previous vascular bypass surgery and the nolberto are present in the left inguinal area, left medial thigh and left foot just superior to the malleolus. There is some wetness and drainage coming from the foot incision. There is also dry gangrene at the site of the metatarsal or transmetatarsal amputation.There are no Doppler signals in the dorsalis pedis and radial tibialis. There is obviously guarded and the popliteal area and there is palpable pulses in the femoral area Neurologically the patient is awake and alert and there is no focal neurological deficit. He remains a poor historian. - Labs CBC & Chem 7: 01/20/21 04:47 01/20/21 04:47 Labs: Abnormal Lab Results - Last 24 Hours (Table) 01/19/21 01/19/21 01/19/21 Range/Units 05:30 13:30 13:51 WBC (3.8-10.6) k/uL RBC (4.30-5.90) m/uL Hgb (13.0-17.5) gm/dL Hct (39.0-53.0) % RDW (11.5-15.5) % Neutrophils # (1.3-7.7) k/uL Lymphocytes # (1.0-4.8) k/uL Monocytes # (0-1.0) k/uL APTT 55.8 H (22.0-30.0) sec Potassium (3.5-5.1) mmol/L Chloride 112 H (98-107) mmol/L Carbon Dioxide 19 L (22-30) mmol/L BUN (9-20) mg/dL Creatinine 1.32 H (0.66-1.25) mg/dL Glucose 106 H (74-99) mg/dL POC Glucose (mg/dL) 126 H (75-99) mg/dL Phosphorus 2.1 L (2.5-4.5) mg/dL Total Protein 5.5 L (6.3-8.2) g/dL Albumin 2.2 L (3.5-5.0) g/dL 01/19/21 01/20/21 01/20/21 Range/Units 17:42 00:47 00:54 WBC (3.8-10.6) k/uL RBC (4.30-5.90) m/uL Hgb (13.0-17.5) gm/dL Hct (39.0-53.0) % RDW (11.5-15.5) % Neutrophils # (1.3-7.7) k/uL Lymphocytes # (1.0-4.8) k/uL Monocytes # (0-1.0) k/uL APTT (22.0-30.0) sec Potassium 3.3 L (3.5-5.1) mmol/L Chloride (98-107) mmol/L Carbon Dioxide (22-30) mmol/L BUN 25 H (9-20) mg/dL Creatinine 1.42 H (0.66-1.25) mg/dL Glucose 130 H (74-99) mg/dL POC Glucose (mg/dL) 138 H 148 H (75-99) mg/dL Phosphorus (2.5-4.5) mg/dL Total Protein (6.3-8.2) g/dL Albumin (3.5-5.0) g/dL 01/20/21 01/20/21 01/20/21 Range/Units 04:47 04:47 04:47 WBC 20.8 H (3.8-10.6) k/uL RBC 2.82 L (4.30-5.90) m/uL Hgb 8.6 L (13.0-17.5) gm/dL Hct 27.8 L (39.0-53.0) % RDW 15.9 H (11.5-15.5) % Neutrophils # 17.8 H (1.3-7.7) k/uL Lymphocytes # 0.8 L (1.0-4.8) k/uL Monocytes # 1.6 H (0-1.0) k/uL APTT 52.9 H (22.0-30.0) sec Potassium 3.3 L (3.5-5.1) mmol/L Chloride 108 H (98-107) mmol/L Carbon Dioxide (22-30) mmol/L BUN 26 H (9-20) mg/dL Creatinine 1.38 H (0.66-1.25) mg/dL Glucose 140 H (74-99) mg/dL POC Glucose (mg/dL) (75-99) mg/dL Phosphorus (2.5-4.5) mg/dL Total Protein 5.3 L (6.3-8.2) g/dL Albumin 2.2 L (3.5-5.0) g/dL Microbiology - Last 24 Hours (Table) 11/10/21 11:31 Blood Culture - Preliminary Blood No Growth after 72 hours 01/16/21 11:46 Blood Culture - Preliminary Blood No Growth after 72 hours 01/16/21 08:33 Blood Culture - Preliminary Blood No Growth after 72 hours 01/13/21 06:30 Blood Culture - Final Blood No Growth after 144 hours 01/13/21 06:45 Blood Culture - Final Blood No Growth after 144 hours Assessment and Plan Plan: 1 recurrent small bowel obstruction. This is likely due to an underlying SMA syndrome. The patient had a similar episodes 2 weeks back at [facility]. Patient has an NG tube catheter in place. There is positive output and his colostomy site. CAT scan of the abdomen was noted. No pneumoperitoneum and the patient remains on IV Zosyn. No clear indication for an acute mesenteric ischemia. Over the past 24-48 hours, the patient improved clinically. Abdominal pain subsided. The patient is currently taking around 1020% of his oral intake and diet provided. He is on full liquid diet and the p atient is also receiving TPN for nutritional support. Colostomy is functional. NG tube was removed. Bowel sounds are hypoactive.. There is no abdominal pain or abdominal distention this point in time. 2 acute hypotension, likely secondary to above with possibly a component of sepsis, recovered and the patient's blood pressures normalized 3 acute leukocytosis, white cell count is currently at 20 4 acute lactic acidosis, improving and the lactic acid level is down to 1.6 5 acute kidney injury, creatinine is improving is currently down to 1.38 . 6 acute hypoxic respiratory failure with possible aspiration in addition to chronic bilateral pleural effusions, and bilateral interstitial infiltrates and consolidation. Consider pneumonia of an aspiration type. Consider interstitial edema. The patient was given Lasix to which she responded. A second dose of Lasix will be given to him today. Aspiration precautions. Monitor chest x-ray findings and currently is on 8 L of oxygen by nasal cannula. 7 peripheral vascular disease with recent transmetatarsal amputation of the left foot and the patient has dry gangrene, vascular surgery on the case considering a left lower extremity amputation [id number] 8 coronary artery disease 9 A. fib with RVR currently on a combination of metoprolol and the patient will be started on oral amiodarone today, still on IV heparin 10. Anterior wall hernia, no signs of any incarceration or strangulation 11 history of depression 12 COPD 13 history Diverticulitis requiring bowel resection and colectomy and diverting colostomy with Malcolm's pouch 14 history of bladder injury, iatrogenic in nature and the patient had a surgic al repair 15 history of Raynaud's disease 16 degenerative arthritis plan 17 severe malnourishment, a body mass index of 17 with protein calorie malnutrition to severe at this point in time 18 stage III coccygeal wound, has optifoam Plan Advance diet as tolerated Continue TPN for nutritional support as the patient is significantly malnourished and he clear liquid diet Continue IV fluids at KVO Continued IV Zosyn Continue IV heparin Give additional Lasix 40 mg IV 1 and this may be repeated later on the evening Vascular surgery is on standby for a [id number] position of the left lower extremity Continue the rest of the supportive care. Condition is obviously critical and o utcome in general is poor baseline above-mentioned comorbidities. Reviewed some of the records that were forwarded from [facility]. The patient had a SMA syndrome. He has undergone various vascular surgeries and interventions and currently has a dry gangrene in his left foot. Monitor the ileostomy output. Monitor renal function. Extremities critical condition with high risk of mortality based on the above- mentioned comorbidities. We'll continue to follow.
[2021-01-20] MEDS: IPRATROPIUM-ALBUTEROL 3 ML NEB INHALATION SCH ×4 (07:51→20:29)
[2021-01-20] MEDS ORDERED: POTASSIUM PHOSPHATE 10 MMOL in SODIUM CHLORIDE 0.9% 250 ML IV ONE (08:00)
--- NOTE | 2021-01-20 08:38 | XR ---
EXAMINATION TYPE: XR chest 1V portable DATE OF EXAM: 01/20/2021 COMPARISON: 01/19/2021 INDICATION: CHF TECHNIQUE: Single frontal view of the chest is obtained. FINDINGS: The heart size is normal. The pulmonary vasculature is indistinct. Increasing patchy bilateral lung infiltrates are present. Small right pleural effusion and minimal le ft pleural effusion is present. Left-sided catheter has its tip in the superior vena cava region. IMPRESSION: 1. Worsening bilateral lung infiltrates. Correlate for pulmonary edema and atypical pneumonia. 2. Small right and minimal left pleural effusions. 3. Continued follow-up is recommended.
[2021-01-20] MEDS: PANTOPRAZOLE 40 MG/10 ML VIAL IVP SCH ×2 (09:18→21:00)
[2021-01-20] MEDS: ASPIRIN 81 MG PO SCH (09:19)
[2021-01-20] MEDS: DOCUSATE 100 MG CAP PO SCH (09:19)
[2021-01-20] MEDS: MULTIVITAMINS, THERA 1 EACH TAB PO SCH (09:19)
[2021-01-20] MEDS: AMIODARONE 200 MG TAB PO SCH ×2 (09:19→20:59)
--- NOTE | 2021-01-20 10:20 | P.PN ---
Subjective Progress Note Date: 01/20/21 Principal diagnosis: Small bowel obstruction Patient having stool and air through ostomy. Denies nausea. Patient is tolerating liquid diet however some concern for possible aspiration. White blood cell count remains elevated. Objective - Vital Signs Vital signs: Vital Signs Temp 98.0 F 01/20/21 08:00 Pulse 88 01/20/21 09:00 Resp 15 01/20/21 09:00 BP 117/67 01/20/21 09:00 Pulse Ox 89 L 01/20/21 09:00 Intake & Output 01/19/21 01/20/21 01/20/21 18:59 06:59 18:59 Intake Total 1447.259 852.741 320 Output Total 3545 1690 160 Balance -2097.741 -837.259 160 Weight 63 kg Intake: IV 1260 640 220 .9 @100 200 240 60 Mvi, Adult No.4 with Vit 240 K 10 ml Trace (Conc-1Ml/ Dose) 1 ml Sodium Acetate 10 meq In Amino Acid 5%- D20w+Lytes*E* 1,000 ml @ 30 mls/hr IV .Q24H [facility] Rx #:[id number] Potassium Phosphate 10 100 mmol In Sodium Chloride 0 .9% 100 ml @ 50 mls/hr IV ONCE ONE Rx#:[id number] Sodium Acetate 10 meq In 960 160 Amino Acid 5%-D20w+Lytes* E* 1,000 ml @ 80 mls/hr IV .BY DURATION [facility] Rx#: [id number] Sodium Acetate 40 meq 160 Potassium Phosphate 15 mmol Magnesium Sulfate gm 1 gm Calcium Gluconate 1 gm Mvi, Adult No.4 with Vit K 10 ml Trace (Conc- 1Ml/Dose) 1 ml In Amino Acids 5 %/Dextrose 20 % 1 ,000 ml @ 80 mls/hr IV . BY DURATION [facility] Rx#: [id number] Intake, IV Titration 37.259 212.741 Amount Heparin Sod,Pork in 0.45% 37.259 212.741 NaCl 25,000 unit In 0.45 % NaCl 1 250ml.bag @ 12 UNITS/KG/HR 7.656 mls/hr IV .Q24H [facility] Rx#: [id number] Oral 150 100 Output: Urine 3245 790 160 Stool 300 900 Other: Voiding Method Indwelling Catheter Indwelling Catheter Indwelling Catheter - Exam Abdomen: Soft, nontender, nondistended, ostomy functioning - Labs CBC & Chem 7: 01/20/21 04:47 01/20/21 04:47 Labs: Abnormal Lab Results - Last 24 Hours (Table) 01/19/21 01/19/21 01/19/21 Range/Units 13:30 13:51 17:42 WBC (3.8-10.6) k/uL RBC (4.30-5.90) m/uL Hgb (13.0-17.5) gm/dL Hct (39.0-53.0) % RDW (11.5-15.5) % Neutrophils # (1.3-7.7) k/uL Lymphocytes # (1.0-4.8) k/uL Monocytes # (0-1.0) k/uL APTT 55.8 H (22.0-30.0) sec Potassium (3.5-5.1) mmol/L Chloride (98-107) mmol/L BUN (9-20) mg/dL Creatinine (0.66-1.25) mg/dL Glucose (74-99) mg/dL POC Glucose (mg/dL) 126 H 138 H (75-99) mg/dL Total Protein (6.3-8.2) g/dL Albumin (3.5-5.0) g/dL 01/20/21 01/20/21 01/20/21 Range/Units 00:47 00:54 04:47 WBC 20.8 H (3.8-10.6) k/uL RBC 2.82 L (4.30-5.90) m/uL Hgb 8.6 L (13.0-17.5) gm/dL Hct 27.8 L (39.0-53.0) % RDW 15.9 H (11.5-15.5) % Neutrophils # 17.8 H (1.3-7.7) k/uL Lymphocytes # 0.8 L (1.0-4.8) k/uL Monocytes # 1.6 H (0-1.0) k/uL APTT (22.0-30.0) sec Potassium 3.3 L (3.5-5.1) mmol/L Chloride (98-107) mmol/L BUN 25 H (9-20) mg/dL Creatinine 1.42 H (0.66-1.25) mg/dL Glucose 130 H (74-99) mg/dL POC Glucose (mg/dL) 148 H (75-99) mg/dL Total Protein (6.3-8.2) g/dL Albumin (3.5-5.0) g/dL 01/20/21 01/20/21 Range/Units 04:47 04:47 WBC (3.8-10.6) k/uL RBC (4.30-5.90) m/uL Hgb (13.0-17.5) gm/dL Hct (39.0-53.0) % RDW (11.5-15.5) % Neutrophils # (1.3-7.7) k/uL Lymphocytes # (1.0-4.8) k/uL Monocytes # (0-1.0) k/uL APTT 52.9 H (22.0-30.0) sec Potassium 3.3 L (3.5-5.1) mmol/L Chloride 108 H (98-107) mmol/L BUN 26 H (9-20) mg/dL Creatinine 1.38 H (0.66-1.25) mg/dL Glucose 140 H (74-99) mg/dL POC Glucose (mg/dL) (75-99) mg/dL Total Protein 5.3 L (6.3-8.2) g/dL Albumin 2.2 L (3.5-5.0) g/dL Microbiology - Last 24 Hours (Table) 01/16/21 11:31 Blood Culture - Preliminary Blood No Growth after 72 hours 01/16/21 11:46 Blood Culture - Preliminary Blood No Growth after 72 hours 01/16/21 08:33 Blood Culture - Preliminary Blood No Growth after 72 hours 01/13/21 06:30 Blood Culture - Final Blood No Growth after 144 hours 01/13/21 06:45 Blood Culture - Final Blood No Growth after 144 hours Assessment and Plan (1) Small bowel obstruction Narrative/Plan: Keep head of bed elevated. Continue diet. Will order swallow evaluation. Current Visit: Yes Status: Acute Code(s): K56.609 - UNSP INTESTNL OBST, UNSP TO PARTIAL VERSUS COMPLETE OBST SNOMED Code(s): 123770324
[2021-01-20 11:24] LABS: Glucose,Whole Blood 133 mg/dL (75-99)
--- NOTE | 2021-01-20 13:00 | PN ---
PROGRESS NOTE This patient has peripheral vascular disease, was admitted to the hospital with ischemic-looking leg. Patient had bypass surgery done at [facility]. Patient has dry gangrene of the left lower extremity. Patient also developed evidence of small bowel obstruction versus ileus. He has been in atrial fibrillation with rapid ventricular response intermittently. He is on IV amiodarone and converted back to sinus rhythm, having frequent PVCs. Patient is able to take medication by mouth and we are switching to p.o. amiodarone. Patient also has history of coronary artery disease. Overall, patient seems to be showing some improvement. His blood pressure is running about 160/80, pulse is 90, respirations 25, saturation 96%. Lungs show diminished air exchange. Heart is irregular at this time. Extremities show some ischemic changes of the left leg with dry gangrene. PLAN: Will continue the p.o. amiodarone. Patient is on metoprolol 100 mg q.8 hours and Cordarone 400 mg p.o. b.i.d. We may also add amlodipine for blood pressure control. Further recommendations to depend upon the clinical course. Prognosis is guarded. MMODL / IJN: [id number] /
[2021-01-20] MEDS: amLODIPine 5 MG TAB PO SCH (13:13)
--- NOTE | 2021-01-20 14:54 | XR ---
EXAMINATION TYPE: XR chest 1V portable DATE OF EXAM: 01/20/2021 COMPARISON: Chest radiograph 01/20/2021 HISTORY: Sudden increase in oxygen demand. TECHNIQUE: Single frontal view of the chest is obtained. FINDINGS: Interval improvement of bilateral, patchy airspace opacities. There is persistent reticula r opacity bilaterally that is more confluent at the lung bases. Opacification at the left base and bl unting of the bilateral costophrenic angles. No pneumothorax. Left IJ catheter with the tip over the SVC. IMPRESSION: Improved aeration bilaterally with persistent, diffuse reticular opacities and small ellen ateral effusions with adjacent atelectasis/airspace disease. No pneumothorax.
[2021-01-20] MEDS ORDERED: Potassium Replacement Protocol 1 EACH MISC MISCELLANE PRN (15:54)
[2021-01-20] MEDS: MAGNESIUM SULFATE IV SCH ×7 (15:57)
[2021-01-20] MEDS: [UNRECOGNIZED DRUG - OTHER] IV SCH ×7 (15:57)
[2021-01-20] MEDS: POTASSIUM PHOSPHATE IV SCH ×7 (15:57)
[2021-01-20] MEDS: SODIUM ACETATE IV SCH ×7 (15:57)
[2021-01-20 17:41] LABS: Glucose,Whole Blood 172 mg/dL (75-99)
--- NOTE | 2021-01-20 20:03 | P.PN ---
Subjective Progress Note Date: 01/19/21 Principal diagnosis: Recurrent small bowel obstruction/SMA syndrome Acute hypotension/possible septic shock Acute renal injury Acute hypoxic respiratory failure/aspiration A. fib with RVR 65-year-old male patient, comes into the hospital because of fever and difficulty breathing of 2 days' duration. Apparently there was a very poor historian. Apparently he also had a left foot transmetatarsal amputation and this was done [facility] approximately 3 weeks ago. He also mentioned he had a previous time bypass surgery. The patient also has other comorbid conditions including chronic atrial fibrillation, coronary artery disease, pe ripheral vascular disease, COPD, complicated diverticulitis and previous bowel resection and colostomy and Malcolm's pouch. The patient came to us from the medical [facility]. The patient was apparently having worsening shortness of breath. He was found to be in A. fib RVR at time of admission. Time of admission, he was febrile with a temperature of 100.3 and the patient was also tachycardic with a heart rate in the 120s and pulse ox was 94% on room air oxygen. Initial white cell count was at 5.3 and the patient had a creatinine of 1.32 with a BUN of 17. Overnight events and was negative. UA was positive for moderate amount of leukocyte esterase with 30 WBCs. Chest x-ray showed moderate bilateral pleural effusion. EKG was consistent with A. fib/RVR. 01/19/2021 Patient is seen and evaluated in room at bedside; NG tube has been removed and patient has been placed on a clear liquid diet Vital signs reveal temperature 98.1 pulse 76 respirations 19 and blood pressure of 145/75; patient remains on O2 at 6 L per nasal cannula with O2 saturation of 94% Lab review shows white cell count remains elevated at 20.7 although this is improving. Hemoglobin is at 8.2. Electrolytes show improvement in the renal function and creatinine is down to 1.32. The patient has a component of non- anion gap metabolic acidosis. He Is at 7 with a serum bicarb of 19. Chest x-ray was done today showed increase in bilateral pulmonary infiltrates and interstitial edema and developed of consolidation of the left upper lobe along with some worsening in the right-sided pleural effusion. Note that his echocardiogram showed an ejection fraction of 40% without any significant valvular abnormalities. Patient remains on IV antibiotics in form of Zosyn Objective - Vital Signs Vital signs: Vital Signs Temp 98.1 F 01/19/21 08:00 Pulse 87 01/19/21 10:00 Resp 28 H 01/19/21 10:00 BP 123/66 01/19/21 10:00 Pulse Ox 88 L 01/19/21 10:00 Intake & Output 01/18/21 01/19/21 01/19/21 18:59 06:59 18:59 Intake Total 1162.391 683.206 717.259 Output Total 226 345 6703 Balance 377.391 3.206 -477.741 Weight 64 kg 63.5 kg Intake: IV 839 600 530 .9 @100 320 240 80 Fat Emulsion 20% 250 ml 189 In Empty Bag 1 bag @ 21 mls/hr IV [facility] Rx#: [id number] Mvi, Adult No.4 with Vit 330 360 K 10 ml Trace (Conc-1Ml/ Dose) 1 ml Sodium Acetate 10 meq In Amino Acid 5%- D20w+Lytes*E* 1,000 ml @ 30 mls/hr IV .Q24H [facility] Rx #:[id number] Potassium Phosphate 10 50 mmol In Sodium Chloride 0 .9% 100 ml @ 50 mls/hr IV ONCE ONE Rx#:[id number] Sodium Acetate 10 meq In 400 Amino Acid 5%-D20w+Lytes* E* 1,000 ml @ 80 mls/hr IV .BY DURATION [facility] Rx#: [id number] Intake, IV Titration 323.391 83.206 37.259 Amount Amiodarone 450 mg In 250 Dextrose 5% in Water 250 ml @ 0.5 MG/MIN 16.667 mls/hr IV .Q15H [facility] Rx#: [id number] Heparin Sod,Pork in 0.45% 73.391 83.206 37.259 NaCl 25,000 unit In 0.45 % NaCl 1 250ml.bag @ 12 UNITS/KG/HR 7.656 mls/hr IV .Q24H [facility] Rx#: [id number] Oral 150 Output: Urine 785 480 895 Stool 200 300 Other: Voiding Method Indwelling Catheter Indwelling Catheter Indwelling Catheter - Exam GENERAL EXAM: Alert, pleasant, 65-year-old white male, looks chronically debilitated, and chronically ill, frail, currently awake and alert, oriented 3, on 6 L of oxygen with a pulse ox of 90-91% with frequent congested cough with production of yellow colored phlegm, comfortable in no apparent distress. NECK: No masses, no JVD, no thyroid enlargement, no adenopathy. CHEST: No chest wall deformity. Symmetrical expansion. LUNGS: Equal air entry with no crackles, wheeze, rhonchi or dullness. CVS: Regular rate and rhythm, normal S1 and S2, no gallops, no murmurs, no rubs ABDOMEN: Abdomen slightly distended. There is direct tenderness. No rebound tensile guarding. Bowel sounds absent. The colostomy site is viable EXTREMITIES: Extremities the patient has scars of previous vascular bypass surgery and the nolberto are present in the left inguinal area, left medial thigh and left foot just superior to the malleolus. MUSCULOSKELETAL: Muscle strength and tone normal. CENTRAL NERVOUS SYSTEM: Alert and oriented -3. No focal deficits, tone is normal in all 4 extremities. - Labs CBC & Chem 7: 01/20/21 04:47 01/20/21 15:00 Labs: Abnormal Lab Results - Last 24 Hours (Table) 01/18/21 01/18/21 01/18/21 Range/Units 12:57 18:59 21:09 WBC (3.8-10.6) k/uL RBC (4.30-5.90) m/uL Hgb (13.0-17.5) gm/dL Hct (39.0-53.0) % RDW (11.5-15.5) % Plt Count (150-450) k/uL Neutrophils # (1.3-7.7) k/uL Lymphocytes # (1.0-4.8) k/uL Monocytes # (0-1.0) k/uL APTT 39.6 H (22.0-30.0) sec Potassium 3.2 L (3.5-5.1) mmol/L Chloride 111 H (98-107) mmol/L Carbon Dioxide 18 L (22-30) mmol/L BUN 21 H (9-20) mg/dL Creatinine 1.31 H (0.66-1.25) mg/dL Glucose 126 H (74-99) mg/dL POC Glucose (mg/dL) 149 H (75-99) mg/dL Calcium 8.3 L (8.4-10.2) mg/dL Phosphorus (2.5-4.5) mg/dL Total Protein (6.3-8.2) g/dL Albumin (3.5-5.0) g/dL 01/19/21 01/19/21 01/19/21 Range/Units 05:30 05:30 05:30 WBC 20.7 H (3.8-10.6) k/uL RBC 2.66 L (4.30-5.90) m/uL Hgb 8.2 L (13.0-17.5) gm/dL Hct 26.2 L (39.0-53.0) % RDW 15.6 H (11.5-15.5) % Plt Count 560 H (150-450) k/uL Neutrophils # 18.1 H (1.3-7.7) k/uL Lymphocytes # 0.8 L (1.0-4.8) k/uL Monocytes # 1.2 H (0-1.0) k/uL APTT 42.2 H (22.0-30.0) sec Potassium (3.5-5.1) mmol/L Chloride 112 H (98-107) mmol/L Carbon Dioxide 19 L (22-30) mmol/L BUN (9-20) mg/dL Creatinine 1.32 H (0.66-1.25) mg/dL Glucose 106 H (74-99) mg/dL POC Glucose (mg/dL) (75-99) mg/dL Calcium (8.4-10.2) mg/dL Phosphorus 2.1 L (2.5-4.5) mg/dL Total Protein 5.5 L (6.3-8.2) g/dL Albumin 2.2 L (3.5-5.0) g/dL Microbiology - Last 24 Hours (Table) 01/16/21 08:33 Blood Culture - Preliminary Blood No Growth after 72 hours 01/13/21 06:30 Blood Culture - Final Blood No Growth after 144 hours 01/13/21 06:45 Blood Culture - Final Blood No Growth after 144 hours 01/16/21 11:46 Blood Culture - Preliminary Blood No Growth after 48 hours 01/16/21 11:31 Blood Culture - Preliminary Blood No Growth after 48 hours Assessment and Plan Assessment: 1. Recurrent small bowel obstruction/SMA syndrome - NG tube in place; abdominal flat plate reveals numerous dilated small bowels related to obstruction - remains on IV Zosyn. No clear indication for an acute mesenteric ischemia. Patient remains on TPN for nutritional support - Repeat abdominal x-ray tomorrow morning 2. Acute hypotension, likely related to sepsis, systolic blood pressures the mid 70s; patient responded nicely to fluids and the patient has not required any pressors 3. Acute leukocytosis/lactic acidosis/possible sepsis; improving; lactic acid is down to 1.43; continue with IV Zosyn as indicated above 4. Acute kidney injury, creatinine is improving with IV fluid hydration; we will continue to monitor renal function and electrolytes 5. Acute hypoxic respiratory failure with possible aspiration in addition to chronic bilateral pleural effusions; patient remains on IV Zosyn as indicated above; we will monitor chest x-ray periodically 6. Peripheral vascular disease with recent transmetatarsal amputation of the left foot; patient has dry gangrene, vascular surgery on the case; possibility of left lower extremity above-knee amputation 7. A. fib with RVR; NSR now; currently on a combination of amiodarone drip, and heparin infusion, has converted to sinus rhythm yesterday on 01/17/2021 8. COPD; not in exacerbation; continue with home inhaler therapy DVT prophylaxis; SCDs/IV heparin CODE STATUS; DO NOT RESUSCITATE
--- NOTE | 2021-01-20 20:06 | P.PN ---
Subjective Progress Note Date: 01/20/21 Principal diagnosis: Recurrent small bowel obstruction/SMA syndrome Acute hypotension/possible septic shock Acute renal injury Acute hypoxic respiratory failure/aspiration A. fib with RVR 65-year-old male patient, comes into the hospital because of fever and difficulty breathing of 2 days' duration. Apparently there was a very poor historian. Apparently he also had a left foot transmetatarsal amputation and this was done [facility] approximately 3 weeks ago. He also mentioned he had a previous time bypass surgery. The patient also has other comorbid conditions including chronic atrial fibrillation, coronary artery disease, pe ripheral vascular disease, COPD, complicated diverticulitis and previous bowel resection and colostomy and Malcolm's pouch. The patient came to us from the medical [facility]. The patient was apparently having worsening shortness of breath. He was found to be in A. fib RVR at time of admission. Time of admission, he was febrile with a temperature of 100.3 and the patient was also tachycardic with a heart rate in the 120s and pulse ox was 94% on room air oxygen. Initial white cell count was at 5.3 and the patient had a creatinine of 1.32 with a BUN of 17. Overnight events and was negative. UA was positive for moderate amount of leukocyte esterase with 30 WBCs. Chest x-ray showed moderate bilateral pleural effusion. EKG was consistent with A. fib/RVR. 01/19/2021 Patient is seen and evaluated in room at bedside; NG tube has been removed and patient has been placed on a clear liquid diet Vital signs reveal temperature 98.1 pulse 76 respirations 19 and blood pressure of 145/75; patient remains on O2 at 6 L per nasal cannula with O2 saturation of 94% Lab review shows white cell count remains elevated at 20.7 although this is improving. Hemoglobin is at 8.2. Electrolytes show improvement in the renal function and creatinine is down to 1.32. The patient has a component of non- anion gap metabolic acidosis. He Is at 7 with a serum bicarb of 19. Chest x-ray was done today showed increase in bilateral pulmonary infiltrates and interstitial edema and developed of consolidation of the left upper lobe along with some worsening in the right-sided pleural effusion. Note that his echocardiogram showed an ejection fraction of 40% without any significant valvular abnormalities. Patient remains on IV antibiotics in form of Zosyn 01/20/2021 Patient is seen and evaluated in ICU with family members at bedside; patient is awake and alert and reports improvement in symptoms with NG tube. Vital signs reveal temperature of 96.7, pulse 81, respiration 13 and blood pressure of 86/46 Laboratory review shows elevated white blood count of 20.8, hemoglobin 8.6, platelet count of 447, sodium 139, potassium 3.3, BUN/creatinine of 26/1.3 and blood glucose of 140 Patient remains on supplemented nutrition with TPN for nutritional support and the patient is currently receiving TPN at the rate of 80 mL an hour; patient has been placed on a clear liquid diet. His IV fluids are otherwise at KVO. In terms of his blood work and electrolytes, the patient's PTT is therapeutic while being on IV heparin. Patient received an admission of dose of Lasix 40 mg IV 1 Objective - Vital Signs Vital signs: Vital Signs Temp 97.7 F 01/20/21 12:00 Pulse 115 H 01/20/21 19:30 Resp 11 L 01/20/21 19:30 BP 94/63 01/20/21 19:30 Pulse Ox 93 L 01/20/21 19:30 Intake & Output 01/20/21 01/20/21 01/21/21 06:59 18:59 06:59 Intake Total 633.546 0883 200 Output Total 1690 2860 400 Balance -837.259 -1640 -200 Weight 63 kg Intake: IV 640 1120 200 .9 @100 240 240 40 Mvi, Adult No.4 with Vit 240 K 10 ml Trace (Conc-1Ml/ Dose) 1 ml Sodium Acetate 10 meq In Amino Acid 5%- D20w+Lytes*E* 1,000 ml @ 30 mls/hr IV .Q24H [facility] Rx #:[id number] Sodium Acetate 10 meq In 160 Amino Acid 5%-D20w+Lytes* E* 1,000 ml @ 80 mls/hr IV .BY DURATION [facility] Rx#: [id number] Sodium Acetate 40 meq 880 160 Potassium Phosphate 15 mmol Magnesium Sulfate gm 1 gm Calcium Gluconate 1 gm Mvi, Adult No.4 with Vit K 10 ml Trace (Conc- 1Ml/Dose) 1 ml In Amino Acids 5 %/Dextrose 20 % 1 ,000 ml @ 80 mls/hr IV . BY DURATION [facility] Rx#: [id number] Intake, IV Titration 212.741 Amount Heparin Sod,Pork in 0.45% 212.741 NaCl 25,000 unit In 0.45 % NaCl 1 250ml.bag @ 12 UNITS/KG/HR 7.656 mls/hr IV .Q24H [facility] Rx#: [id number] Oral 100 Output: Urine 790 2810 400 Stool 900 50 Other: Voiding Method Indwelling Catheter Indwelling Catheter - Exam GENERAL EXAM: Alert, pleasant, 65-year-old white male, looks chronically debilitated, and chronically ill, frail, currently awake and alert, oriented 3, on 6 L of oxygen with a pulse ox of 90-91% with frequent congested cough with production of yellow colored phlegm, comfortable in no apparent distress. NECK: No masses, no JVD, no thyroid enlargement, no adenopathy. CHEST: No chest wall deformity. Symmetrical expansion. LUNGS: Equal air entry with no crackles, wheeze, rhonchi or dullness. CVS: Regular rate and rhythm, normal S1 and S2, no gallops, no murmurs, no rubs ABDOMEN: Abdomen slightly distended. There is direct tenderness. No rebound tensile guarding. Bowel sounds absent. The colostomy site is viable EXTREMITIES: Extremities the patient has scars of previous vascular bypass surgery and the nolberto are present in the left inguinal area, left medial thigh and left foot just superior to the malleolus. MUSCULOSKELETAL: Muscle strength and tone normal. CENTRAL NERVOUS SYSTEM: Alert and oriented -3. No focal deficits, tone is normal in all 4 extremities. - Labs CBC & Chem 7: 01/20/21 04:47 01/20/21 15:00 Labs: Abnormal Lab Results - Last 24 Hours (Table) 01/20/21 01/20/21 01/20/21 Range/Units 00:47 00:54 04:47 WBC 20.8 H (3.8-10.6) k/uL RBC 2.82 L (4.30-5.90) m/uL Hgb 8.6 L (13.0-17.5) gm/dL Hct 27.8 L (39.0-53.0) % RDW 15.9 H (11.5-15.5) % Neutrophils # 17.8 H (1.3-7.7) k/uL Lymphocytes # 0.8 L (1.0-4.8) k/uL Monocytes # 1.6 H (0-1.0) k/uL APTT (22.0-30.0) sec Potassium 3.3 L (3.5-5.1) mmol/L Chloride (98-107) mmol/L BUN 25 H (9-20) mg/dL Creatinine 1.42 H (0.66-1.25) mg/dL Glucose 130 H (74-99) mg/dL POC Glucose (mg/dL) 148 H (75-99) mg/dL Total Protein (6.3-8.2) g/dL Albumin (3.5-5.0) g/dL 01/20/21 01/20/21 01/20/21 Range/Units 04:47 04:47 11:22 WBC (3.8-10.6) k/uL RBC (4.30-5.90) m/uL Hgb (13.0-17.5) gm/dL Hct (39.0-53.0) % RDW (11.5-15.5) % Neutrophils # (1.3-7.7) k/uL Lymphocytes # (1.0-4.8) k/uL Monocytes # (0-1.0) k/uL APTT 52.9 H (22.0-30.0) sec Potassium 3.3 L (3.5-5.1) mmol/L Chloride 108 H (98-107) mmol/L BUN 26 H (9-20) mg/dL Creatinine 1.38 H (0.66-1.25) mg/dL Glucose 140 H (74-99) mg/dL POC Glucose (mg/dL) 133 H (75-99) mg/dL Total Protein 5.3 L (6.3-8.2) g/dL Albumin 2.2 L (3.5-5.0) g/dL 01/20/21 01/20/21 Range/Units 15:00 17:40 WBC (3.8-10.6) k/uL RBC (4.30-5.90) m/uL Hgb (13.0-17.5) gm/dL Hct (39.0-53.0) % RDW (11.5-15.5) % Neutrophils # (1.3-7.7) k/uL Lymphocytes # (1.0-4.8) k/uL Monocytes # (0-1.0) k/uL APTT (22.0-30.0) sec Potassium 3.3 L (3.5-5.1) mmol/L Chloride (98-107) mmol/L BUN (9-20) mg/dL Creatinine (0.66-1.25) mg/dL Glucose (74-99) mg/dL POC Glucose (mg/dL) 172 H (75-99) mg/dL Total Protein (6.3-8.2) g/dL Albumin (3.5-5.0) g/dL Microbiology - Last 24 Hours (Table) 01/16/21 11:46 Blood Culture - Preliminary Blood No Growth after 96 hours 01/16/21 11:31 Blood Culture - Preliminary Blood No Growth after 96 hours 01/16/21 08:33 Blood Culture - Preliminary Blood No Growth after 96 hours Assessment and Plan Assessment: 1. Recurrent small bowel obstruction/SMA syndrome - NG tube in place; abdominal flat plate reveals numerous dilated small bowels related to obstruction - remains on IV Zosyn. No clear indication for an acute mesenteric ischemia. Patient remains on TPN for nutritional support - Repeat abdominal x-ray tomorrow morning 2. Acute hypotension, likely related to sepsis, systolic blood pressures the mid 70s; patient responded nicely to fluids and the patient has not required any pressors 3. Acute leukocytosis/lactic acidosis/possible sepsis; improving; lactic acid is down to 1.43; continue with IV Zosyn as indicated above 4. Acute kidney injury, creatinine is improving with IV fluid hydration; we will continue to monitor renal function and electrolytes 5. Acute hypoxic respiratory failure with possible aspiration in addition to chronic bilateral pleural effusions; patient remains on IV Zosyn as indicated above; we will monitor chest x-ray periodically 6. Peripheral vascular disease with recent transmetatarsal amputation of the left foot; patient has dry gangrene, vascular surgery on the case; possibility of left lower extremity above-knee amputation 7. A. fib with RVR; NSR now; currently on a combination of amiodarone drip, and heparin infusion, has converted to sinus rhythm yesterday on 01/17/2021 8. COPD; not in exacerbation; continue with home inhaler therapy DVT prophylaxis; SCDs/IV heparin CODE STATUS; DO NOT RESUSCITATE
--- NOTE | 2021-01-21 00:24 | PN ---
PROGRESS NOTE DATE OF SERVICE: 01/20/2021 REASON FOR FOLLOWUP: 1. Aspiration pneumonia. 2. Left foot necrotic wound. INTERVAL HISTORY: The patient is afebrile. The patient is currently breathing comfortably, requiring high-flow oxygen. Denies any chest pain or worsening cough. No abdominal pain or any worsening pain to the left foot. PHYSICAL EXAMINATION: Blood pressure 111/67, pulse of 101, temperature of 98. He is 93% on 15 L high-flow oxygen. General description is an elderly male lying in bed in no distress. Respiratory system: Unlabored breathing, decreased intensity of breath sounds. No wheeze. Heart S1, S2. Regular rate and rhythm. Abdomen soft, no tenderness. Left foot did have necrotic changes but no redness or drainage. LABS: Hemoglobin is 8.6, white count 20.8, creatinine 1.38. DIAGNOSTIC IMPRESSION AND PLAN: Patient concerning for aspiration pneumonia with chest x-ray did show some improvement. Patient to continue with Zosyn. Will monitor his clinical course closely. Continue supportive care. MMODL / IJN: [id number] /
[2021-01-21] MEDS: HEPARIN SOD,PORK IN 0.45% NACL 25,000 UNIT in 0.45% NACL 1 250ML.BAG IV SCH (01:20)
[2021-01-21 01:24] LABS: Glucose,Whole Blood 157 mg/dL (75-99)
[2021-01-21] MEDS: GABAPENTIN 300 MG CAP PO SCH ×3 (02:00→17:26)
[2021-01-21] MEDS: MORPHINE SULFATE IR 15 MG TABLET PO SCH ×4 (02:01→17:26)
[2021-01-21] MEDS: HYDROmorphone 1 MG/ML 1 ML SYRINGE IVP PRN ×4 (02:01→20:39)
[2021-01-21] MEDS: METOPROLOL TARTRATE 50 MG TAB PO SCH ×3 (02:02→17:26)
[2021-01-21] MEDS: PIPERACILLIN-TAZOBACTAM 3.375 GM in SODIUM CHLORIDE 0.9% 100 ML IVPB SCH ×3 (03:30→18:55)
[2021-01-21] MEDS: POTASSIUM PHOSPHATE IV SCH ×7 (06:40)
[2021-01-21] MEDS: MAGNESIUM SULFATE IV SCH ×7 (06:40)
[2021-01-21] MEDS: [UNRECOGNIZED DRUG - OTHER] IV SCH ×7 (06:40)
[2021-01-21] MEDS: SODIUM ACETATE IV SCH ×7 (06:40)
[2021-01-21 07:01] LABS: Glucose,Whole Blood 79 mg/dL (75-99)
[2021-01-21 07:30] LABS: Basophils # (A) 0.1 k/uL (0-0.2); Basophils % (A) 0 %; Eosinophils # (A) 0.3 k/uL (0-0.7); Eosinophils % (A) 1 %; HCT 29.9 % (39.0-53.0); HGB 9.1 gm/dL (13.0-17.5); Hypochromasia Marked; Lymphocytes % (A) 5 %; MCH 30.6 pg (25.0-35.0); MCHC 30.5 g/dL (31.0-37.0); MCV 100.4 fL (80.0-100.0); Macrocytosis Slight; Mean Platelet Volume 7.7; Monocytes % (A) 9 %; Neutrophils # (A) 17.6 k/uL (1.3-7.7); Neutrophils % (A) 82 %; Platelet Count 398 k/uL (150-450); RBC 2.98 m/uL (4.30-5.90); RDW 15.3 % (11.5-15.5); WBC 21.5 k/uL (3.8-10.6)
[2021-01-21 07:52] LABS: Calcium 8.6 mg/dL (8.4-10.2); Magnesium 1.7 mg/dL (1.6-2.3); Potassium 3.4 mmol/L (3.5-5.1)
--- NOTE | 2021-01-21 09:16 | XR ---
EXAMINATION TYPE: XR chest 1V portable DATE OF EXAM: 01/21/2021 COMPARISON: 01/21/2020 HISTORY: Shortness of breath TECHNIQUE: Single frontal view of the chest is obtained. FINDINGS: There is a diffuse interstitial pattern with bilateral infiltrate and small effusion. Hype rinflation suggests COPD. Left-sided central line noted. Size normal. Nodules seen overlying the righ t lower lobe measuring 8 mm. IMPRESSION: 1. COPD with bilateral infiltrate and pleural effusion correlate for diffuse pneumonia versus CHF. Ni pple shadow versus right lower lobe nodule
--- NOTE | 2021-01-21 09:36 | PN ---
PROGRESS NOTE This gentleman has peripheral vascular disease and significant ischemia left lower extremity being considered above-knee amputation by Dr. Cevallos. He is in atrial fib going in and out of sinus rhythm but hemodynamically stable. Oxygenation is an issue. He is on non-rebreather. Cardiac-caballero, his blood pressure seems to be decent. S1-S2 heard normally with irregular rate and rhythm, short systolic murmur. Lungs reveal diminished air entry. Abdomen is soft. Lower extremity examination revealed significant ischemic changes in the left leg with recent surgery. Prognosis remains poor. No further recommendations from a cardiac standpoint. I am recommending that we correct the potassium and magnesium and await further input from vascular surgery. Prognosis remains poor. MMODL / IJN: [id number] /
[2021-01-21] MEDS: SYMBICORT 80-4.5 MCG INHALER INHALATION SCH ×2 (09:42→20:28)
[2021-01-21] MEDS: IPRATROPIUM-ALBUTEROL 3 ML NEB INHALATION SCH ×4 (09:43→20:28)
[2021-01-21] MEDS: PANTOPRAZOLE 40 MG/10 ML VIAL IVP SCH ×2 (10:19→20:39)
[2021-01-21] MEDS: FAT EMULSION 20% 250 ML in EMPTY BAG 1 BAG IV SCH (10:20)
[2021-01-21] MEDS: amLODIPine 5 MG TAB PO SCH (10:20)
[2021-01-21] MEDS: MULTIVITAMINS, THERA 1 EACH TAB PO SCH (10:20)
[2021-01-21] MEDS: AMIODARONE 200 MG TAB PO SCH ×2 (10:20→20:40)
[2021-01-21] MEDS: ASPIRIN 81 MG PO SCH (10:20)
[2021-01-21] MEDS: DOCUSATE 100 MG CAP PO SCH (10:20)
[2021-01-21] MEDS ORDERED: MAGNESIUM SULFATE-D5W PMX 1 GM in DEXTROSE/WATER 1 100ML.BAG IVPB ONE (10:52)
--- NOTE | 2021-01-21 10:55 | P.PN ---
Subjective Progress Note Date: 01/21/21 Principal diagnosis: ischemic foot Seen and examined sitting up in the ICU. Patient states he does not have any pain in his left lower extremity. States he has pain in his chest and in his abdomen. Had a chest x-ray this morning that shows COPD with bilateral infiltrate and pleural effusion correlate for diffuse pneumonia versus CHF. Nipple shadow versus right lower lobe nodule. Patient is currently on 15 L nonrebreather saturation between 76% and 96%. WBC 21.5 Hemoglobin stable at 9.1. He remains on the IV heparin drip Objective - Vital Signs Vital signs: Vital Signs Temp 97.6 F 01/21/21 08:00 Pulse 85 01/21/21 09:00 Resp 18 01/21/21 09:00 BP 106/68 01/21/21 09:00 Pulse Ox 98 01/21/21 09:00 Intake & Output 01/20/21 01/21/21 01/21/21 18:59 06:59 18:59 Intake Total 1220 1550 300 Output Total 2860 1900 230 Balance -1640 -350 70 Intake: IV 1120 1300 300 .9 @100 240 260 20 .9NS 40 Sodium Acetate 40 meq 880 1040 240 Potassium Phosphate 15 mmol Magnesium Sulfate gm 1 gm Calcium Gluconate 1 gm Mvi, Adult No.4 with Vit K 10 ml Trace (Conc- 1Ml/Dose) 1 ml In Amino Acids 5 %/Dextrose 20 % 1 ,000 ml @ 80 mls/hr IV . BY DURATION [facility] Rx#: [id number] Intake, IV Titration 250 Amount Heparin Sod,Pork in 0.45% 250 NaCl 25,000 unit In 0.45 % NaCl 1 250ml.bag @ 12 UNITS/KG/HR 7.656 mls/hr IV .Q24H [facility] Rx#: [id number] Oral 100 Output: Urine 2810 1750 230 Stool 50 150 Other: Voiding Method Indwelling Catheter Indwelling Catheter - Exam General appearance: The patient is alert, oriented, appears in no acute distress. Nonrebreather in place. HET: Head is normocephalic and atraumatic. Neck: Supple without lymphadenopathy. Trachea midline. Abdomen: Soft, mild diffuse tenderness, no guarding or rigidity. Ostomy with liquid brown output. Extremities: Left TMA site well approximated with sutures. Left foot with ischemic changes, dry gangrene at the TMA site, chronic. There are well approximated sutures as well as nolberto in the left lower extremity that are well approximated without any drainage or redness. Nonpalpable pulses at the bypass graft. Palpable bilateral femoral pulses. Left groin with nolberto well approximated without any drainage. Warm to the touch with good capillary refill. Neurological: No focal deficits. Alert and oriented 3. - Labs CBC & Chem 7: 01/21/21 07:01 01/21/21 07:01 Labs: Abnormal Lab Results - Last 24 Hours (Table) 01/20/21 01/20/21 01/20/21 Range/Units 11: 15:00 17:40 WBC (3.8-10.6) k/uL RBC (4.30-5.90) m/uL Hgb (13.0-17.5) gm/dL Hct (39.0-53.0) % MCV (80.0-100.0) fL MCHC (31.0-37.0) g/dL Neutrophils # (1.3-7.7) k/uL Monocytes # (0-1.0) k/uL APTT (22.0-30.0) sec Potassium 3.3 L (3.5-5.1) mmol/L BUN (9-20) mg/dL Creatinine (0.66-1.25) mg/dL POC Glucose (mg/dL) 133 H 172 H (75-99) mg/dL 01/21/21 01/21/21 01/21/21 Range/Units 01:22 07:01 07:01 WBC 21.5 H (3.8-10.6) k/uL RBC 2.98 L (4.30-5.90) m/uL Hgb 9.1 L (13.0-17.5) gm/dL Hct 29.9 L (39.0-53.0) % MCV 100.4 H (80.0-100.0) fL MCHC 30.5 L (31.0-37.0) g/dL Neutrophils # 17.6 H (1.3-7.7) k/uL Monocytes # 2.0 H (0-1.0) k/uL APTT (22.0-30.0) sec Potassium 3.4 L (3.5-5.1) mmol/L BUN 34 H (9-20) mg/dL Creatinine 1.36 H (0.66-1.25) mg/dL POC Glucose (mg/dL) 157 H (75-99) mg/dL 01/21/21 Range/Units 07:01 WBC (3.8-10.6) k/uL RBC (4.30-5.90) m/uL Hgb (13.0-17.5) gm/dL Hct (39.0-53.0) % MCV (80.0-100.0) fL MCHC (31.0-37.0) g/dL Neutrophils # (1.3-7.7) k/uL Monocytes # (0-1.0) k/uL APTT 31.6 H (22.0-30.0) sec Potassium (3.5-5.1) mmol/L BUN (9-20) mg/dL Creatinine (0.66-1.25) mg/dL POC Glucose (mg/dL) (75-99) mg/dL Microbiology - Last 24 Hours (Table) 01/16/21 11:46 Blood Culture - Preliminary Blood No Growth after 96 hours 01/16/21 11:31 Blood Culture - Preliminary Blood No Growth after 96 hours 01/16/21 08:33 Blood Culture - Preliminary Blood No Growth after 96 hours Assessment and Plan Assessment: 1. History of peripheral arterial disease status post revascularization with a femoral to posterior tibialis bypass with CryoVein on 01/04/2021 by , bypass now down likely related to hypotension 2. 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 Possible Aspiration pneumonia 4. Suspected Small bowel obstruction versus ileus, likely related to underlying SMA syndrome, general surgery is following 5. Acute leukocytosis 6. Hypotension 7. Pleural effusions 8. History of atrial fibrillation on Heparin drip 9. History of coronary artery disease 10. Tobacco abuse Plan: 1. Continue supportive care as recommended by ICU model engine mechanic. Patient's case discussed with the Dr. York who recommends holding off on [id number] amputation at this time. 3. Left lower extremity femoral to posterior tibialis bypass nonfunctioning, patient had initial femoral to PT bypass on 12/24/20 which occluded with a redo on 01/04/2021. Likely re-occluded related to hypotension. Once patient stabilizes will need to undergo left [id number] amputation. Vascular surgery will continue to follow. Plan will be to proceed with left [id number] amputation once medically stable with regional block. AKA canceled for today, related to respiratory status. Discussed with Dr. Tse from pulmonology and recommendations is to wait another 1-2 days. The impression and plan of care has been dictated as directed. Dr. Covington I performed a history and examination of this patient, discussed the same with the dictator. I agree with the dictator's note ,documented as a scribe. Any additional findings or plans will be noted.
--- NOTE | 2021-01-21 11:47 | P.PN ---
Subjective Progress Note Date: 01/21/21 CHIEF COMPLAINT: Fever HISTORY OF PRESENT ILLNESS: Patient remains in the ICU. Surgical service is following his small bowel obstruction. Patient's ostomy is functioning. He does complain of some mild abdominal pain. He also is having pain in his left leg. Due to patient's respiratory status his surgery on the left leg has been canceled for today. Fistula surgery is following closely. Patient is scheduled for swallow evaluation today due to questional aspiration. He is sitting up in bed able to answer questions. Afebrile. WBC is 21.5 a she be 9.1 platelets 398 potassium 3.4 creatinine 1.36 magnesium 1.7 patient is receiving magnesium and potassium placement. He does remain on IV heparin. He did receive a dose of IV Lasix yesterday. Patient seen and examined with Dr. Medina PHYSICAL EXAM: VITAL SIGNS: Reviewed. GENERAL: Well-developed in no acute distress. HEENT: No sclera icterus. Extraocular movements grossly intact. Moist buccal mucosa. Head is atraumatic, normocephalic. ABDOMEN: Soft. Mildly distended. Nontender. ileostomy with dark brown stool NEUROLOGIC: Alert and oriented. Cranial nerves II through XII grossly intact. ASSESSMENT: 1. Small bowel obstruction improved 2. Recurrent small bowel obstruction and underlying SMA syndrome PLAN: -Continue ICU management -Continue supportive care -Patient scheduled for swallow evaluation today and pending those results hopefully can start a diet -Continue TPN for nutrition support Physician Skirt Clipper note has been reviewed by physician. Signing provider agrees with the documented findings, assessment, and plan of care. Objective - Vital Signs Vital signs: Vital Signs Temp 97.6 F 01/21/21 08:00 Pulse 85 01/21/21 09:00 Resp 18 01/21/21 09:00 BP 106/68 01/21/21 09:00 Pulse Ox 98 01/21/21 09:00 Intake & Output 01/20/21 01/21/21 01/21/21 18:59 06:59 18:59 Intake Total 1220 1550 300 Output Total 2860 1900 230 Balance -1640 -350 70 Intake: IV 1120 1300 300 .9 @100 240 260 20 .9NS 40 Sodium Acetate 40 meq 880 1040 240 Potassium Phosphate 15 mmol Magnesium Sulfate gm 1 gm Calcium Gluconate 1 gm Mvi, Adult No.4 with Vit K 10 ml Trace (Conc- 1Ml/Dose) 1 ml In Amino Acids 5 %/Dextrose 20 % 1 ,000 ml @ 80 mls/hr IV . BY DURATION [facility] Rx#: [id number] Intake, IV Titration 250 Amount Heparin Sod,Pork in 0.45% 250 NaCl 25,000 unit In 0.45 % NaCl 1 250ml.bag @ 12 UNITS/KG/HR 7.656 mls/hr IV .Q24H [facility] Rx#: [id number] Oral 100 Output: Urine 2810 1750 230 Stool 50 150 Other: Voiding Method Indwelling Catheter Indwelling Catheter - Labs CBC & Chem 7: 01/21/21 07:01 01/21/21 07:01 Labs: Abnormal Lab Results - Last 24 Hours (Table) 01/20/21 01/20/21 01/21/21 Range/Units 15:00 17:40 01:22 WBC (3.8-10.6) k/uL RBC (4.30-5.90) m/uL Hgb (13.0-17.5) gm/dL Hct (39.0-53.0) % MCV (80.0-100.0) fL MCHC (31.0-37.0) g/dL Neutrophils # (1.3-7.7) k/uL Monocytes # (0-1.0) k/uL APTT (22.0-30.0) sec Potassium 3.3 L (3.5-5.1) mmol/L BUN (9-20) mg/dL Creatinine (0.66-1.25) mg/dL POC Glucose (mg/dL) 172 H 157 H (75-99) mg/dL 01/21/21 01/21/21 01/21/21 Range/Units 07:01 07:01 07:01 WBC 21.5 H (3.8-10.6) k/uL RBC 2.98 L (4.30-5.90) m/uL Hgb 9.1 L (13.0-17.5) gm/dL Hct 29.9 L (39.0-53.0) % MCV 100.4 H (80.0-100.0) fL MCHC 30.5 L (31.0-37.0) g/dL Neutrophils # 17.6 H (1.3-7.7) k/uL Monocytes # 2.0 H (0-1.0) k/uL APTT 31.6 H (22.0-30.0) sec Potassium 3.4 L (3.5-5.1) mmol/L BUN 34 H (9-20) mg/dL Creatinine 1.36 H (0.66-1.25) mg/dL POC Glucose (mg/dL) (75-99) mg/dL Microbiology - Last 24 Hours (Table) 01/16/21 08:33 Blood Culture - Preliminary Blood No Growth after 120 hours 01/16/21 11:46 Blood Culture - Preliminary Blood No Growth after 96 hours 01/16/21 11:31 Blood Culture - Preliminary Blood No Growth after 96 hours
[2021-01-21] MEDS: POTASSIUM CHLORIDE 20 MEQ in WATER FOR INJECTION 1 100ML.BAG IVPB SCH ×2 (12:22→15:55)
--- NOTE | 2021-01-21 13:24 | P.PN ---
Subjective Progress Note Date: 01/21/21 Principal diagnosis: Recurrent small bowel obstruction possible SMA syndrome. On today's evaluation on 01/18/2021 patient seen in follow-up in the intensive care unit, she is awake and alert, in no acute distress, is currently down to 6 L of oxygen his pulse ox is 90-91%, he does have a very congested cough, he is bringing up jama and yellow colored phlegm. No hemoptysis, she is hemodynamically significantly more stable compared to 48 hours ago. She is in sinus mechanism with a rate of 94, he is not on any vasopressor support, he is on amiodarone at 0.5 mg/m, and patient has converted to sinus mechanism yesterday in which he remained. He was started on TPN at 32 ML per hour and this is being titrated per dietary recommendations, his maintenance IV fluids 0.9 normal saline at a rate of 100 ML per hour, NG tube remains in place with minimal output in the last 24 hours, abdomen is significantly less distended, nontender, and his colostomy is producing greenish colored stool, but no significant amount of gas. He remains on Zosyn, patient is also on heparin infusion for anti-coagulation. His chest x-ray yesterday showed bilateral infiltrates and pleural effusion. CBC is pending right now, BMP has resulted in showing sodium of 136, potassium is 3.1, chloride is 110, CO2 is 17, BUN of 23 creatinine is 1.43 and his renal function is improving, LFTs are within normal limits. Urinalysis showed possibility of underlying urinary tract infection with greater than 182 leukocytes, moderate bacteria, urine culture has shown no growth, blood cultures have been negative as well. 01/19/2021, patient's NG tube is removed and the patient was offered some follow liquid diet. There is some output in the colostomy bag. Abdomen is nondistended. Bowel sounds are still hypoactive and they're present. General surgeries on the case. No significant abdominal pain. The left foot is obviously necrotic and the patient had dry gangrene and passively were scheduling this patient sometime next week to undergo an amputation of the left lower extremity. Otherwise, his white cell count remains elevated at 20.7 although this is improving. Hemoglobin is at 8.2. Electrolytes show improvement in the renal function and creatinine is down to 1.32. The patient has a component of non-anion gap metabolic acidosis. He Is at 7 with a serum bicarb of 19. His arousable and awake. He is on TPN for nutritional support. He is on oxygen at 6 L per minute nasal cannula. He remains on empiric antibiotic coverage with IV Zosyn. Cardiac rhythm is currently sinus. The luis argueta remains on IV heparin. Nevertheless, the repeat chest x-ray was done today showed increase in bilateral pulmonary infiltrates and interstitial edema and developed of consolidation of the left upper lobe along with some worsening in the right-sided pleural effusion. Note that his echocardiogram showed an ejection fraction of 40% without any significant valvular abnormalities. 01/20/2021, the patient is awake and alert and communicating. He has a congested cough. Unable to bring up much of sputum. Nevertheless, he seems to be comfortable and his breathing is nonlabored and he is currently on oxygen at 8 L per minute with a saturation above 90%. His chest x-ray showing diffuse ellen ateral pulmonary infiltrates more so in the upper lobes and bilateral pleural effusions. He was given a dose of Lasix yesterday and his IV fluids was cut down to KVO. Following his Lasix, the patient showed adequate diuresis with without approximately 2.9 L of a negative fluid balance over the past 24 hours. In terms of his feeding, the patient is currently having limited amount of oral intake. He has some functionality in his colostomy bag. His bowel sounds are sluggish. No abdominal pain or distention. NG tube has been removed. No nausea or emesis. We have supplemented his nutrition with TPN for nutritional support and the patient is currently receiving TPN at the rate of 80 mL an hour. His IV fluids are otherwise at KVO. In terms of his blood work and electrolytes, the patient's PTT is therapeutic while being on IV heparin. His creatinine is down to 1.38 which is improved compared to yesterday. The rest of the electrodes are normal. White cell count remains elevated at 20.8 hemoglobin of 8.6. He is having bouts of 80 fibrillation still. He goes into A. fib paroxysmal along sun sinus rhythm. He is currently on IV heparin as mentioned. He is also on amiodarone which was switched to oral and the patient is currently on oral amiodarone at a dose of 400 mg by mouth twice a day. The patient is also on metoprolol 100 mg every 8 hours. He is on Symbicort as maintenance regarding his COPD and he needs to be started on DuoNeb nebulized treatments around the clock. An additional dose of Lasix will be given to him today. His previous echocardiogram showed an ejection fraction of around 40%. The patient is being followed up with vascular surgery. He has a dry gangrene of the left foot and the patient will need a left lower extremity amputation [id number] probably early next week once his condition is more stable. Reevaluated today on 01/21/2021, patient remains in the ICU, he is on 15 L high flow nasal cannula, he shouldn't is awake, alert, communicating, does not seem to be in any distress, chest x-ray continues to show bilateral pulmonary inf iltrates and bilateral pleural effusions. Remains on diuretics, antibiotics, IV fluid has been cut down to KVO. Patient is diuresing well. And he has a functional colostomy bag. He shouldn't was seen by vascular surgery, and he is being considered for left lower extremity below-knee amputation. Respiratory BC count is 21.5 hemoglobin is 9.1 electrolytes are normal BUN is 34 creatinine 1.36. Asked x-ray clearly shows extensive bilateral infiltrates and bilateral pleural effusions. A shunt remains on TPN, remains on bronchodilators, remains on amiodarone, remains on heparin, empirically on Zosyn, and he is also on bronchodilators Objective - Vital Signs Vital signs: Vital Signs Temp 97.8 F 01/21/21 12:00 Pulse 102 H 01/21/21 12:00 Resp 12 01/21/21 12:00 BP 93/62 01/21/21 12:00 Pulse Ox 98 01/21/21 12:27 Intake & Output 01/20/21 01/21/21 01/21/21 18:59 06:59 18:59 Intake Total 1220 1550 853 Output Total 2860 1900 410 Balance -1640 -350 443 Intake: IV 1120 1300 853 .9 @100 240 260 20 .9NS 90 Fat Emulsion 20% 250 ml 63 In Empty Bag 1 bag @ 21 mls/hr IV MoWeFr [facility] Rx#: [id number] Piperacillin-Tazobactam 3 100 .375 gm In Sodium Chloride 0.9% 100 ml @ 25 mls/hr IVPB Q8H [facility] Rx#: [id number] Potassium Chloride 20 meq 100 In Water For Injection 1 100ml.bag @ 50 mls/hr IVPB Q2H [facility] Rx#: [id number] Sodium Acetate 40 meq 880 1040 480 Potassium Phosphate 15 mmol Magnesium Sulfate gm 1 gm Calcium Gluconate 1 gm Mvi, Adult No.4 with Vit K 10 ml Trace (Conc- 1Ml/Dose) 1 ml In Amino Acids 5 %/Dextrose 20 % 1 ,000 ml @ 80 mls/hr IV . BY DURATION [facility] Rx#: [id number] Intake, IV Titration 250 Amount Heparin Sod,Pork in 0.45% 250 NaCl 25,000 unit In 0.45 % NaCl 1 250ml.bag @ 12 UNITS/KG/HR 7.656 mls/hr IV .Q24H [facility] Rx#: [id number] Oral 100 Output: Urine 2810 1750 410 Stool 50 150 Other: Voiding Method Indwelling Catheter Indwelling Catheter - Exam Physical Exam revealed a 65-year-old white male, frail looking, chronically ill, on 15 L high flow nasal cannula. Head: Atraumatic, normocephalic. HEENT:[Neck is supple.] [No neck masses.] [No thyromegaly.] [No JVD.] Chest: [Symmetrical chest expansion, crackles at the bases bilaterally. Cardiac Exam: Irregular irregular rhythm, 2/6 systolic murmur throughout the precordium. Abdomen: [Soft, nontender, no megaly, no rebound, no guarding, normal bowel sounds.] Colostomy bag is noted in the left lower quadrant, seems to be functional. Extremities: [the patient has scars of previous vascular bypass surgery and the nolberto are present in the left inguinal area, left medial thigh and left foot just superior to the malleolus. There is some wetness and drainage coming from the foot incision. There is also dry gangrene at the site of the metatarsal or transmetatarsal amputation.There are no Doppler signals in the dorsalis pedis and radial tibialis. There is obviously guarded and the popliteal area and there is palpable pulses in the femoral area Neurological Exam: Alert oriented 3 gangrenous focal deficits, however the patient is noted to be extremely slow. And a poor historian. Psychiatric: Normal mood affect and slightly confused. Skin: As noted above under extremities. - Labs CBC & Chem 7: 01/21/21 07:01 01/21/21 07:01 Labs: Abnormal Lab Results - Last 24 Hours (Table) 01/20/21 01/20/21 01/21/21 Range/Units 15:00 17:40 01:22 WBC (3.8-10.6) k/uL RBC (4.30-5.90) m/uL Hgb (13.0-17.5) gm/dL Hct (39.0-53.0) % MCV (80.0-100.0) fL MCHC (31.0-37.0) g/dL Neutrophils # (1.3-7.7) k/uL Monocytes # (0-1.0) k/uL APTT (22.0-30.0) sec Potassium 3.3 L (3.5-5.1) mmol/L BUN (9-20) mg/dL Creatinine (0.66-1.25) mg/dL POC Glucose (mg/dL) 172 H 157 H (75-99) mg/dL 01/21/21 01/21/21 01/21/21 Range/Units 07:01 07:01 07:01 WBC 21.5 H (3.8-10.6) k/uL RBC 2.98 L (4.30-5.90) m/uL Hgb 9.1 L (13.0-17.5) gm/dL Hct 29.9 L (39.0-53.0) % MCV 100.4 H (80.0-100.0) fL MCHC 30.5 L (31.0-37.0) g/dL Neutrophils # 17.6 H (1.3-7.7) k/uL Monocytes # 2.0 H (0-1.0) k/uL APTT 31.6 H (22.0-30.0) sec Potassium 3.4 L (3.5-5.1) mmol/L BUN 34 H (9-20) mg/dL Creatinine 1.36 H (0.66-1.25) mg/dL POC Glucose (mg/dL) (75-99) mg/dL Microbiology - Last 24 Hours (Table) 01/16/21 08:33 Blood Culture - Preliminary Blood No Growth after 120 hours 01/16/21 11:46 Blood Culture - Preliminary Blood No Growth after 96 hours 01/16/21 11:31 Blood Culture - Preliminary Blood No Growth after 96 hours Assessment and Plan Assessment: Impression: Recurrent small bowel obstruction possible SMA syndrome. Presently asymptomatic. Patient has a functional colostomy in place. Hypotension, possibly secondary to sepsis. Leukocytosis secondary to sepsis. Acute kidney injury, improving. Acute hypoxic respiratory failure with possible aspiration pneumonia and bilateral pleural effusions, possible interstitial edema remains on antibiotics and diuretics. Severe peripheral vessel occlusive disease affecting left lower extremity patient may require left below-knee amputation. Coronary artery disease. Atrial fibrillation with RVR maintained on amiodarone and metoprolol. And on IV heparin. Anterior wall hernia but no strangulation or incarceration. History of underlying COPD. History of diverticulitis and bowel resection with colectomy and diverting colostomy with Malcolm's pouch. History of bladder injury, iatrogenic in nature. History of degenerative joint disease. Severe malnutrition, BMI of 17, severe protein calorie malnutrition at this po int. Stage III coccygeal ulcer. Recommendation: Continue antibiotics. Continue bronchodilators. Continue TPN. Continue diuretics. Vascular surgery is considering below-knee amputation, patient is definitely high surgical risk. But I believe the benefits outweigh the risks at this point. Patient had multiple vascular surgeries and interventions and he presently has dry gangrene of the left foot. Continue to monitor ileostomy output. Monitor renal profile closely. Patient is extremely critical, and high risk for mortality and high surgical risk. Discussed his condition with vascular surgery on the case. Remains critically ill. Critical care time is over 30 minutes Time with Patient: Greater than 30
[2021-01-21 17:57] LABS: Glucose,Whole Blood 114 mg/dL (75-99)
--- NOTE | 2021-01-21 18:11 | PN ---
PROGRESS NOTE DATE OF SERVICE: 01/21/2021. This 65-year-old gentleman who was admitted with changes of gangrene and infection of the right leg after transmetatarsal amputation elsewhere is awaiting left below- knee amputation; however, the patient has rather unstable pulmonary status at this time, requiring 15 L high-flow nasal cannula. Multiple consultants are following the patient closely. The patient is on broad-spectrum IV antibiotics. The patient is confused, stuporous, and the most recent chest x-ray, which I reviewed personally, showed bilateral interstitial shadows which are probably improving slightly. Past medical history reviewed. REVIEW OF SYSTEMS: CARDIOVASCULAR SYSTEM: No angina. RESPIRATION: As mentioned earlier. GI: As mentioned earlier. : No dysuria. NERVOUS SYSTEM: No numbness, weakness. CURRENT MEDICATIONS: Reviewed. They include Tylenol, Cordarone, Norvasc, aspirin, Symbicort, TPN. PHYSICAL EXAMINATION: Patient is stuporous. Pulse is 103, blood pressure respiration 18, temperature normal, pulse ox 94% on 10 L nasal cannula. HEENT: Conjunctivae normal. NECK: No jugular venous distention. CARDIOVASCULAR: S1, S2 muffled. RESPIRATION: Breath sounds diminished at the bases. Bilateral scattered rhonchi and crackles. ABDOMEN: Soft, nontender. LEGS: Significant infection of the left leg present. NERVOUS SYSTEM: Diffusely weak. LABS: WBC 21.2, hemoglobin is 9.1. Sodium 130, potassium 3.4. ASSESSMENT: 1. Severe infection, necrotic lesion of the left lower leg, possibly ischemic in origin, with acute severe sepsis, septic shock and hypotension, present on admission. 2. Atrial fibrillation with fast ventricular rate. 3. Bilateral lung lesions, possibly bilateral aspiration pneumonia with acute hypoxic respiratory failure. 4. Vomiting and coffee-ground emesis with possible upper gastrointestinal bleeding. 5. Abdominal distention, possibly acute small-bowel obstruction versus ileus. 6. Hyponatremia. 7. Hypokalemia. 8. History of recent transmetatarsal amputation as well as femoral bypass surgery 3 weeks ago at [facility]. 9. Peripheral vascular disease. 10.History of coronary artery disease. 11.Chronic anemia. 12.Acute kidney injury with acute tubular necrosis. 13.Chronic obstructive pulmonary disease. 14.Severe peripheral vascular disease. 15.Hypertension. 16.Chronic debility. 17.History of protein-calorie malnutrition. 18.Sacral decubitus ulcer, stage III. 19.History of nicotine dependence. 20.Gastrointestinal and deep vein thrombosis prophylaxis. 21.Hyponatremia. 22.Hypoalbuminemia with mild to moderate protein-calorie malnutrition. 23.Increased white count. RECOMMENDATIONS AND DISCUSSION: I recommend to continue current medications, continue with symptomatic treatment. Otherwise at this time I would recommend repeat testing for COVID-19 and a sputum culture, also. Overall prognosis extremely guarded because of multiple considerations. Further recommendations to follow. MMODL / IJN: [id number] / [facility]
--- NOTE | 2021-01-21 18:26 | PN ---
PROGRESS NOTE DATE OF SERVICE: 01/21/2021 REASON FOR FOLLOWUP: 1. Aspiration pneumonia. 2. Left foot gangrene. INTERVAL HISTORY: The patient is afebrile. The patient is currently breathing comfortably. The patient is down to 10 L nasal cannula. Denies any chest pain or worsening cough. No abdominal pain or pain to the left foot. PHYSICAL EXAMINATION: Blood pressure 102/66, pulse of 98, temperature 97.8. He is 94% on 10 L nasal cannula. General description is an elderly male lying in bed in no distress. Respiratory system: Unlabored breathing, decreased intensity in breath sounds. No wheeze. Heart S1, S2. Regular rate and rhythm. Abdomen soft, no tenderness. Left foot with necrotic changes; no worsening. LABS: Hemoglobin is 9.1 with white count of 21.5, creatinine is 1.36. DIAGNOSTIC IMPRESSION AND TREATMENT PLAN: Patient with aspiration pneumonia with ileus and vomiting in this patient who is already covered with Zosyn; monitor closely. There is a high risk of COVID infection because of the the patient is on and continue with supportive care. MMODL / IJN: [id number] /
[2021-01-21] MEDS ORDERED: POTASSIUM PHOSPHATE IV SCH ×8 (19:30)
[2021-01-21] MEDS ORDERED: [UNRECOGNIZED DRUG - OTHER] IV SCH ×8 (19:30)
[2021-01-21] MEDS ORDERED: SODIUM ACETATE IV SCH ×8 (19:30)
[2021-01-21] MEDS ORDERED: MAGNESIUM SULFATE IV SCH ×8 (19:30)
[2021-01-22] MEDS: HEPARIN SOD,PORK IN 0.45% NACL 25,000 UNIT in 0.45% NACL 1 250ML.BAG IV SCH (00:12)
[2021-01-22] MEDS: METOPROLOL TARTRATE 50 MG TAB PO SCH ×3 (00:12→20:34)
[2021-01-22] MEDS: MORPHINE SULFATE IR 15 MG TABLET PO SCH ×5 (00:12→23:50)
[2021-01-22] MEDS: HEPARIN SODIUM 1,000 UN/ML (10ML VL) IV PRN (00:33)
[2021-01-22] MEDS: GABAPENTIN 300 MG CAP PO SCH ×4 (01:20→23:50)
[2021-01-22] MEDS: PIPERACILLIN-TAZOBACTAM 3.375 GM in SODIUM CHLORIDE 0.9% 100 ML IVPB SCH ×3 (04:00→18:34)
[2021-01-22 04:45] LABS: Calcium 8.5 mg/dL (8.4-10.2); Magnesium 2.1 mg/dL (1.6-2.3); Phosphorus 3.1 mg/dL (2.5-4.5); Potassium 3.7 mmol/L (3.5-5.1)
[2021-01-22 05:31] LABS: Basophils # (A) 0.1 k/uL (0-0.2); Basophils % (A) 0 %; Eosinophils # (A) 0.6 k/uL (0-0.7); Eosinophils % (A) 3 %; Hypochromasia Slight; Lymphocytes % (A) 4 %; MCHC 30.6 g/dL (31.0-37.0); Macrocytosis Slight; Mean Platelet Volume 8.4; Monocytes # (A) 1.8 k/uL (0-1.0); Monocytes % (A) 8 %; Neutrophils # (A) 18.3 k/uL (1.3-7.7); Neutrophils % (A) 82 %; Platelet Count 404 k/uL (150-450); RDW 15.9 % (11.5-15.5); WBC 22.3 k/uL (3.8-10.6)
[2021-01-22 05:40] LABS: HCT 19.6 % (39.0-53.0)
[2021-01-22] MEDS: PANTOPRAZOLE 40 MG/10 ML VIAL IVP SCH ×2 (08:12→20:34)
[2021-01-22] MEDS: IPRATROPIUM-ALBUTEROL 3 ML NEB INHALATION SCH ×4 (09:08→19:21)
[2021-01-22] MEDS: SYMBICORT 80-4.5 MCG INHALER INHALATION SCH ×2 (09:08→19:20)
[2021-01-22] MEDS: HYDROmorphone 1 MG/ML 1 ML SYRINGE IVP PRN (09:35)
[2021-01-22] MEDS ORDERED: POTASSIUM CHLORIDE 20 MEQ in WATER FOR INJECTION 1 100ML.BAG IVPB ONE (10:00)
[2021-01-22] MEDS: ASPIRIN 81 MG PO SCH (10:20)
[2021-01-22] MEDS: MULTIVITAMINS, THERA 1 EACH TAB PO SCH (11:22)
[2021-01-22] MEDS: DOCUSATE 100 MG CAP PO SCH (11:22)
[2021-01-22] MEDS ORDERED: HYDROmorphone 0.5 MG/0.5 ML SYRINGE IVP PRN (11:28)
[2021-01-22 11:49] LABS: Glucose,Whole Blood 113 mg/dL (75-99)
--- NOTE | 2021-01-22 12:05 | PN ---
PROGRESS NOTE This is a gentleman with significant peripheral vascular disease. He was being considered for above-knee amputation but was found to have a low hemoglobin of 6. He is receiving 2 packed RBCs. He is in a sinus rhythm going in and out of atrial fibrillation. It is unclear how well he is able to swallow, so patient is going to get a repeat swallow evaluation today. He received beta lula yesterday. He is more alert, hemodynamically stable. Denies any chest pain. He complains of generalized weakness. Vitals are stable. S1-S2 heard normally. Short systolic murmur noted. Lungs reveal bilateral air entry, diminished. Abdomen is soft. Lower extremities reveal diminished pulses with evidence of recent surgery and significant peripheral vascular disease. RECOMMENDATIONS: I would reduce metoprolol tartrate to 100 mg b.i.d., continue amiodarone after swallow evaluation. Agree with 2 units of packed RBCs. Patient can have the amputation, but the risk remains moderate to high. Will continue to follow. MMODL / IJN: [id number] /
--- NOTE | 2021-01-22 12:51 | P.PN ---
Subjective Progress Note Date: 01/22/21 CHIEF COMPLAINT: Fever HISTORY OF PRESENT ILLNESS: Patient remains in the ICU. Surgical service is following his small bowel obstruction. Patient's ostomy is functioning. Patient lying in bed comfortably. No complaints of abdominal pain reported. He is scheduled for a modified barium swallow eval today. Hemoglobin has dropped to 6.0. No active signs of bleeding. Patient is receiving 2 units of packed red blood cells. Afebrile. WBC 22.3 hemoglobin 6 platelets 404. Patient seen and examined with Dr. Medina PHYSICAL EXAM: VITAL SIGNS: Reviewed. GENERAL: Well-developed in no acute distress. HEENT: No sclera icterus. Extraocular movements grossly intact. Moist buccal mucosa. Head is atraumatic, normocephalic. ABDOMEN: Soft. Nondistended Nontender. ileostomy with dark brown stool NEUROLOGIC: Alert and oriented. Cranial nerves II through XII grossly intact. ASSESSMENT: 1. Small bowel obstruction improved 2. Recurrent small bowel obstruction and underlying SMA syndrome PLAN: -Continue ICU management -Continue supportive care -Patient scheduled for MBS swallow study today -Continue TPN for nutrition support -Agree with blood transfusion Physician Cemetery Counselor note has been reviewed by physician. Signing provider agrees with the documented findings, assessment, and plan of care. Objective - Vital Signs Vital signs: Vital Signs Temp 98.4 F 01/22/21 12:30 Pulse 84 01/22/21 12:30 Resp 16 01/22/21 12:30 BP 142/72 01/22/21 12:30 Pulse Ox 98 01/22/21 12:30 Intake & Output 01/21/21 01/22/21 01/22/21 18:59 06:59 18:59 Intake Total 2013.365 1534.305 910 Output Total 770 520 380 Balance 3295.904 0631.305 530 Weight 63 kg 65 kg Intake: IV 1839 1458 180 .9 @100 20 .9NS 170 230 100 Fat Emulsion 20% 250 ml 189 168 In Empty Bag 1 bag @ 21 mls/hr IV MoWeFr [facility] Rx#: [id number] Magnesium Sulfate-D5w Pmx 100 1 gm In Dextrose/Water 1 100ml.bag @ 100 mls/hr IVPB ONCE ONE Rx#: [id number] Piperacillin-Tazobactam 3 180 100 .375 gm In Sodium Chloride 0.9% 100 ml @ 25 mls/hr IVPB Q8H [facility] Rx#: [id number] Potassium Chloride 20 meq 300 In Water For Injection 1 100ml.bag @ 50 mls/hr IVPB Q2H [facility] Rx#: [id number] Sodium Acetate 10 meq In 560 80 Amino Acid 5%-D20w+Lytes* E* 1,000 ml @ 80 mls/hr IV .BY DURATION [facility] Rx#: [id number] Sodium Acetate 40 meq 880 400 Potassium Phosphate 15 mmol Magnesium Sulfate gm 1 gm Calcium Gluconate 1 gm Mvi, Adult No.4 with Vit K 10 ml Trace (Conc- 1Ml/Dose) 1 ml In Amino Acids 5 %/Dextrose 20 % 1 ,000 ml @ 80 mls/hr IV . BY DURATION [facility] Rx#: [id number] Intake, IV Titration 174.365 76.305 420 Amount Heparin Sod,Pork in 0.45% 174.365 76.305 NaCl 25,000 unit In 0.45 % NaCl 1 250ml.bag @ 12 UNITS/KG/HR 7.656 mls/hr IV .Q24H [facility] Rx#: [id number] Mvi, Adult No.4 with Vit 320 K 10 ml Trace (Conc-1Ml/ Dose) 1 ml Sodium Acetate 20 meq Potassium Chloride 20 meq Magnesium Sulfate gm 0.75 gm In Amino Acid 5%-D20w+Lytes* E* 1,000 ml @ 80 mls/hr IV .BY DURATION [facility] Rx#: [id number] Potassium Chloride 20 meq 100 In Water For Injection 1 100ml.bag @ 50 mls/hr IVPB ONCE ONE Rx#: [id number] Blood Product 310 Rc As-1 Unit 0 [id number] Rc As-1 Unit 310 [id number] Output: Urine 770 520 230 Stool 150 Other: Voiding Method Indwelling Catheter Indwelling Catheter Indwelling Catheter - Labs CBC & Chem 7: 01/22/21 03:31 01/22/21 03:31 Labs: Abnormal Lab Results - Last 24 Hours (Table) 01/21/21 01/21/21 01/22/21 Range/Units 17:55 22:22 03:31 WBC 22.3 H (3.8-10.6) k/uL RBC 2.00 L (4.30-5.90) m/uL Hgb 6.0 L* D (13.0-17.5) gm/dL Hct 19.6 L* (39.0-53.0) % MCHC 30.6 L (31.0-37.0) g/dL RDW 15.9 H (11.5-15.5) % Neutrophils # 18.3 H (1.3-7.7) k/uL Monocytes # 1.8 H (0-1.0) k/uL APTT 38.8 H (22.0-30.0) sec Sodium (137-145) mmol/L BUN (9-20) mg/dL Creatinine (0.66-1.25) mg/dL Glucose (74-99) mg/dL POC Glucose (mg/dL) 114 H (75-99) mg/dL Crossmatch 01/22/21 01/22/21 01/22/21 Range/Units 03:31 03:31 07:05 WBC (3.8-10.6) k/uL RBC (4.30-5.90) m/uL Hgb (13.0-17.5) gm/dL Hct (39.0-53.0) % MCHC (31.0-37.0) g/dL RDW (11.5-15.5) % Neutrophils # (1.3-7.7) k/uL Monocytes # (0-1.0) k/uL APTT 50.6 H (22.0-30.0) sec Sodium 134 L (137-145) mmol/L BUN 37 H (9-20) mg/dL Creatinine 1.35 H (0.66-1.25) mg/dL Glucose 123 H (74-99) mg/dL POC Glucose (mg/dL) (75-99) mg/dL Crossmatch See Detail 01/22/21 Range/Units 11:47 WBC (3.8-10.6) k/uL RBC (4.30-5.90) m/uL Hgb (13.0-17.5) gm/dL Hct (39.0-53.0) % MCHC (31.0-37.0) g/dL RDW (11.5-15.5) % Neutrophils # (1.3-7.7) k/uL Monocytes # (0-1.0) k/uL APTT (22.0-30.0) sec Sodium (137-145) mmol/L BUN (9-20) mg/dL Creatinine (0.66-1.25) mg/dL Glucose (74-99) mg/dL POC Glucose (mg/dL) 113 H (75-99) mg/dL Crossmatch Microbiology - Last 24 Hours (Table) 01/16/21 08:33 Blood Culture - Final Blood No Growth after 144 hours 01/16/21 11:46 Blood Culture - Preliminary Blood No Growth after 120 hours 01/16/21 11:31 Blood Culture - Preliminary Blood No Growth after 120 hours
[2021-01-22] MEDS: AMIODARONE 200 MG TAB PO SCH (13:00)
[2021-01-22] MEDS: amLODIPine 5 MG TAB PO SCH (13:00)
--- NOTE | 2021-01-22 13:20 | P.PN ---
Subjective Progress Note Date: 01/22/21 Principal diagnosis: Aspiration pneumonia, A. fib with RVR, SMA syndrome 65-year-old male patient, comes into the hospital because of fever and difficulty breathing of 2 days' duration. Apparently there was a very poor historian. Apparently he also had a left foot transmetatarsal amputation and this was done [facility] approximately 3 weeks ago. He also mentioned he had a previous time bypass surgery. The patient also has other comorbid conditions including chronic atrial fibrillation, coronary artery disease, peripheral vascular disease, COPD, complicated diverticulitis and previous bowel resection and colostomy and Malcolm's pouch. The patient came to us from the [facility]. The patient was apparently having worsening shortness of breath. He was found to be in A. fib RVR at time of admission. Time of admission, he was febrile with a temperature of 100.3 and the patient was also tachycardic with a heart rate in the 120s and pulse ox was 94% on room air oxygen. Initial white cell count was at 5.3 and the patient had a cre atinine of 1.32 with a BUN of 17. Overnight events and was negative. UA was positive for moderate amount of leukocyte esterase with 30 WBCs. Chest x-ray showed moderate bilateral pleural effusion. EKG was consistent with A. fib/RVR. This morning, we got contacted by the medical team as the patient's condition is gotten worse. The patient has developed worsening in A. fib RVR, hypotension with a systolic blood pressure in the mid 70s, pulse ox of 95-99% 15 L of Oxymizer nasal cannula, lactic acid level of 4.5, and a white cell count of 51.1. The patient received 500 mL bolus and currently the patient is running on normal saline at the rate of 100 mL an hour. Based on all this, in ICU transfer was requested. The patient's cultures including urine and blood cultures during this current admission has been negative. The patient is covered with antibiotics and the patient is receiving IV Zosyn as a broad-spectrum antibiotic coverage. Terms of her his adjuvant fibrillation, the patient had been placed on amiodarone drip which is running at 0.5 mg per minute and the patient is on metoprolol 100 mg every 8 hours for rate control and Cardizem drip at 5 mg per hour for rate control. No antiplatelet has been offered that the patient has previous history of GI bleed. With that spoken, the patient developed an acute kidney injury. Creatinine is up to 2.04 from a normal baseline. At the time of my evaluation, the patient had some mild abdominal distention. He had some mild abdominal tenderness there was diffuse. Absent bowel sounds. Orogastric tube has been inserted and the patient has drained approximately 600 mL of gastric material. Nevertheless, there is some yellowish stool like material collecting in his colostomy bag. At the same time, the patient was inspected for his left lower extremity. There is the left femoral pulse. There are nolberto in the left femoral area and in the left lower extremity thigh area which indicates a recent vascular bypass surgery performed probably a fem-pop bypass surgery. At the same time, there was Doppler signals only in the popliteal artery, absent pulses in the left lower extremity, the left foot shows evidence of a transmetatarsal amputation and the surgical wound site is necrotic and gangrenous. There is also necrosis extending in the dorsal aspect of the left foot, the foot itself is cold and there are no pulses in the posterior tibialis and dorsalis pedis area. The area is red and the medial aspect of the malleolus On today's evaluation of 01/17/2021, patient is slightly improved compared to yesterday. Is awake and alert. Note that he continues to have bowel obstruction. Abdomen is slightly distended. Abdomen is cell tender helper although less compared to yesterday. A CAT scan of the abdomen and pelvis was performed yesterday and the patient had evidence of small bowel ileus. No evidence of any pneumoperitoneum. No evidence of any acute abdomen. Note that the patient was in [facility] and he was evaluated by the surgical team in the past for similar reason and the patient was found to have acute SMA syndrome. The patient underwent EGD and surgical evaluation ultimately he recovered spontaneously. For now, NG tube is in place. Output was noted. Output has been in the order of 200 mL since yesterday. He still has some material coming out of his colostomy bag. In terms of fluid status, triple lumen catheter was inserted yesterday the patient is currently on IV fluids normal saline. He received a total of 2 L of IV fluid and he did not require any pressors. The patient is currently on IV fluids and he is on IV heparin in combination with IV Zosyn. The white cell count is down to 25 and the patient has also improved in terms of his Acute kidney injury. Creatinine is down to 1.6. Potassium level is at 3.[address], BUN is 25, UA was abnormal with clumps of WBCs and the patient remains on IV Zosyn, cultures are still pending for now. Stool for C. diff has been negative. The patient was evaluated by the vascular surgical team. Obviously the patient will need a amputation of the left lower extremity and this will be done once more stable. The acute decompensation that occurred yesterday with essentially related to his small bowel obstruction. General surgery on the case. Consultation was placed and an evaluation has not been done yet. Meanwhile, the patient remains on IV Zosyn. The patient is on IV heparin. Cultures of been negative thus far. He remains nothing by mouth. NG tube is in place. TPN will be initiated as the patient is quite cachectic and malnourished with a Bmi of 17.6. On today's evaluation on 01/18/2021 patient seen in follow-up in the intensive care unit, she is awake and alert, in no acute distress, is currently down to 6 L of oxygen his pulse ox is 90-91%, he does have a very congested cough, he is b ringing up jama and yellow colored phlegm. No hemoptysis, she is hemodynamically significantly more stable compared to 48 hours ago. She is in sinus mechanism with a rate of 94, he is not on any vasopressor support, he is on amiodarone at 0.5 mg/m, and patient has converted to sinus mechanism yesterday in which he remained. He was started on TPN at 32 ML per hour and this is being titrated per dietary recommendations, his maintenance IV fluids 0.9 normal saline at a rate of 100 ML per hour, NG tube remains in place with minimal output in the last 24 hours, abdomen is significantly less distended, nontender, and his colostomy is producing greenish colored stool, but no significant amount of gas. He remains on Zosyn, patient is also on heparin infusion for anti-coagulation. His chest x-ray yesterday showed bilateral infiltrates and pleural effusion. CBC is pending right now, BMP has resulted in showing sodium of 136, potassium is 3.1, chloride is 110, CO2 is 17, BUN of 23 creatinine is 1.43 and his renal function is improving, LFTs are within normal limits. Urinalysis showed poss ibility of underlying urinary tract infection with greater than 182 leukocytes, moderate bacteria, urine culture has shown no growth, blood cultures have been negative as well. On 01/22/2021 patient seen in follow-up in the intensive care unit, his lipid 3. Today's exam, but easily arousable, he is on 100% nonrebreather mask, his pulse ox is 97-98%. He is afebrile, he is not requiring any vasopressor support. He is receiving TPN at 80 ML per hour, and she is on lipids on Thursday schedule, he remains on heparin infusion per weight-based protocol. His last chest x-ray yesterday shows COPD with bilateral infiltrates and pleural effusion related to aspiration pneumonia, and possibility of CHF is not completely excluded. Today's labs have been reviewed white count is relatively stable, at 22.3, his hemoglobin is down to 6.0 from 9.1 on yesterday's labs, and patient will receive 2 units of packed red blood cells, his platelet count is 404, his PTT is 50.6, sodium is 134, the respiratory infection lites were within normal limits, BUN is 37, creatinine 1.35, he was retested for COVID-19 with a PCR test was negative, it gastric or cold blood was negative. Surgery is f ollowing in regards to small bowel obstruction related to SMA syndrome, his ostomy is functioning, he does not complain of any abdominal pain, bowel sounds are present. No fever or chills. Hemodynamically patient has remained in sinus mechanism, he is not able to take anything by mouth currently, he is awaiting swallow evaluation today, he remains on beta blockers and oral amiodarone, there has been no recurrence of atrial fibrillation. His lower extremities reveal diminished pulses, patient is being considered for left [id number] amputation by vascular surgery pending further improvement of patient's respiratory status Objective - Vital Signs Vital signs: Vital Signs Temp 98.4 F 01/22/21 12:30 Pulse 82 01/22/21 13:00 Resp 18 01/22/21 13:00 BP 122/67 01/22/21 13:00 Pulse Ox 97 01/22/21 13:00 Intake & Output 01/21/21 01/22/21 01/22/21 18:59 06:59 18:59 Intake Total 2013.365 9569.599 4036 Output Total 770 520 485 Balance 2699.938 1403.305 725 Weight 63 kg 65 kg Intake: IV 1839 1458 320 .9 @100 20 .9NS 170 230 140 Fat Emulsion 20% 250 ml 189 168 In Empty Bag 1 bag @ 21 mls/hr IV MoWeFr [facility] Rx#: [id number] Magnesium Sulfate-D5w Pmx 100 1 gm In Dextrose/Water 1 100ml.bag @ 100 mls/hr IVPB ONCE ONE Rx#: [id number] Piperacillin-Tazobactam 3 180 100 100 .375 gm In Sodium Chloride 0.9% 100 ml @ 25 mls/hr IVPB Q8H [facility] Rx#: [id number] Potassium Chloride 20 meq 300 In Water For Injection 1 100ml.bag @ 50 mls/hr IVPB Q2H [facility] Rx#: [id number] Sodium Acetate 10 meq In 560 80 Amino Acid 5%-D20w+Lytes* E* 1,000 ml @ 80 mls/hr IV .BY DURATION [facility] Rx#: [id number] Sodium Acetate 40 meq 880 400 Potassium Phosphate 15 mmol Magnesium Sulfate gm 1 gm Calcium Gluconate 1 gm Mvi, Adult No.4 with Vit K 10 ml Trace (Conc- 1Ml/Dose) 1 ml In Amino Acids 5 %/Dextrose 20 % 1 ,000 ml @ 80 mls/hr IV . BY DURATION [facility] Rx#: [id number] Intake, IV Titration 174.365 76.305 580 Amount Heparin Sod,Pork in 0.45% 174.365 76.305 NaCl 25,000 unit In 0.45 % NaCl 1 250ml.bag @ 12 UNITS/KG/HR 7.656 mls/hr IV .Q24H [facility] Rx#: [id number] Mvi, Adult No.4 with Vit 320 K 10 ml Trace (Conc-1Ml/ Dose) 1 ml Sodium Acetate 20 meq Potassium Chloride 20 meq Magnesium Sulfate gm 0.75 gm In Amino Acid 5%-D20w+Lytes* E* 1,000 ml @ 80 mls/hr IV .BY DURATION [facility] Rx#: [id number] Mvi, Adult No.4 with Vit 160 K 10 ml Trace (Conc-1Ml/ Dose) 1 ml Sodium Acetate 20 meq Potassium Chloride 20 meq Magnesium Sulfate gm 0.75 gm In Amino Acid 5%-D20w+Lytes* E* 1,000 ml @ 80 mls/hr IV .BY DURATION [facility] Rx#: [id number] Potassium Chloride 20 meq 100 In Water For Injection 1 100ml.bag @ 50 mls/hr IVPB ONCE ONE Rx#: [id number] Blood Product 310 Rc As-1 Unit 0 [id number] Rc As-1 Unit 310 [id number] Output: Urine 770 520 335 Stool 150 Other: Voiding Method Indwelling Catheter Indwelling Catheter Indwelling Catheter - Exam GENERAL EXAM: Sleepy, but arousable to verbal stimulation 65-year-old white male, looks chronically debilitated, and chronically ill, frail, currently awake and alert, oriented 3, on 100% nonrebreather mask with a pulse ox of 90-91% with frequent congested cough with production of yellow colored phlegm, comfortable in no apparent distress. HEAD: Normocephalic/atraumatic. EYES: Normal reaction of pupils, equal size. Conjunctiva pink, sclera white. NOSE: Clear with pink turbinates. THROAT: No erythema or exudates. NECK: No masses, no JVD, no thyroid enlargement, no adenopathy. CHEST: No chest wall deformity. Symmetrical expansion. LUNGS: Equal air entry with diminished breath sounds at the bases, mild wheezes, and scattered rhonchi CVS: Regular rate and rhythm, normal S1 and S2, no gallops, no murmurs, no rubs ABDOMEN: Abdomen slightly distended. There is direct tenderness. No rebound tensile guarding. Bowel sounds absent. The colostomy site is viable and there is some stool material collecting and abdominal colostomy bag. No organomegaly identified. EXTREMITIES: Extremities the patient has scars of previous vascular bypass surgery and the nolberto are present in the left inguinal area, left medial thigh and left foot just superior to the malleolus. There is some wetness and drainage coming from the foot incision. There is also dry gangrene at the site of the metatarsal or transmetatarsal amputation.There are no Doppler signals in the dorsalis pedis and radial tibialis. There is obviously guarded and the popliteal area and there is palpable pulses in the femoral area MUSCULOSKELETAL: Muscle strength and tone normal. SPINE: No scoliosis or deformity SKIN: No rashes CENTRAL NERVOUS SYSTEM: Alert and oriented -3. No focal deficits, tone is normal in all 4 extremities. PSYCHIATRIC: Alert and oriented -3. Appropriate affect. Intact judgment and insight. - Labs CBC & Chem 7: 01/22/21 03:31 01/22/21 03:31 Labs: Abnormal Lab Results - Last 24 Hours (Table) 01/21/21 01/21/21 01/22/21 Range/Units 17:55 22:22 03:31 WBC 22.3 H (3.8-10.6) k/uL RBC 2.00 L (4.30-5.90) m/uL Hgb 6.0 L* D (13.0-17.5) gm/dL Hct 19.6 L* (39.0-53.0) % MCHC 30.6 L (31.0-37.0) g/dL RDW 15.9 H (11.5-15.5) % Neutrophils # 18.3 H (1.3-7.7) k/uL Monocytes # 1.8 H (0-1.0) k/uL APTT 38.8 H (22.0-30.0) sec Sodium (137-145) mmol/L BUN (9-20) mg/dL Creatinine (0.66-1.25) mg/dL Glucose (74-99) mg/dL POC Glucose (mg/dL) 114 H (75-99) mg/dL Crossmatch 01/22/21 01/22/21 01/22/21 Range/Units 03:31 03:31 07:05 WBC (3.8-10.6) k/uL RBC (4.30-5.90) m/uL Hgb (13.0-17.5) gm/dL Hct (39.0-53.0) % MCHC (31.0-37.0) g/dL RDW (11.5-15.5) % Neutrophils # (1.3-7.7) k/uL Monocytes # (0-1.0) k/uL APTT 50.6 H (22.0-30.0) sec Sodium 134 L (137-145) mmol/L BUN 37 H (9-20) mg/dL Creatinine 1.35 H (0.66-1.25) mg/dL Glucose 123 H (74-99) mg/dL POC Glucose (mg/dL) (75-99) mg/dL Crossmatch See Detail 01/22/21 Range/Units 11:47 WBC (3.8-10.6) k/uL RBC (4.30-5.90) m/uL Hgb (13.0-17.5) gm/dL Hct (39.0-53.0) % MCHC (31.0-37.0) g/dL RDW (11.5-15.5) % Neutrophils # (1.3-7.7) k/uL Monocytes # (0-1.0) k/uL APTT (22.0-30.0) sec Sodium (137-145) mmol/L BUN (9-20) mg/dL Creatinine (0.66-1.25) mg/dL Glucose (74-99) mg/dL POC Glucose (mg/dL) 113 H (75-99) mg/dL Crossmatch Microbiology - Last 24 Hours (Table) 01/16/21 08:33 Blood Culture - Final Blood No Growth after 144 hours 01/16/21 11:46 Blood Culture - Preliminary Blood No Growth after 120 hours 01/16/21 11:31 Blood Culture - Preliminary Blood No Growth after 120 hours Assessment and Plan Plan: Assessment: #1. Recurrent small bowel obstruction. This is likely due to an underlying SMA syndrome. The patient had a similar episodes 2 weeks back at [facility]. Patient has an NG tube catheter in place. There is positive output and his colostomy site. CAT scan of the abdomen was noted. Note that 70 pneumoperitoneum and the patient remains on IV Zosyn. No clear indication for an acute mesenteric ischemia. #2. Acute hypotension, likely secondary to above with possibly a component of sepsis, systolic blood pressures the mid 70s, the patient was given a liter of bolus of normal saline and his systolic blood pressures up to the 90. Noted the patient responded nicely to fluids and the patient has not required any pressors #3. Acute leukocytosis, improving #4. Acute lactic acidosis, improved #5. Acute kidney injury, creatinine is improving #6. Acute hypoxic respiratory failure with possible aspiration in addition to chronic bilateral pleural effusions #7. Peripheral vascular disease with recent transmetatarsal amputation of the left foot and the patient has dry gangrene, vascular surgery on the case considering a left lower extremity amputation [id number] #8. Coronary artery disease #9. A. fib with RVR currently on a combination of amiodarone drip, and heparin infusion, has converted to sinus rhythm yesterday on 01/17/2021 #10. Abdominal incision suspected bowel obstruction. NG tube is in place and a flat film of the abdomen showed numerous dilated small bowels related to possibility of bowel obstruction #11. History of depression #12. COPD #13. History Diverticulitis requiring bowel resection and colectomy and diverting colostomy with Malcolm's pouch #14. History of bladder injury, iatrogenic in nature and the patient had a surgical repair #15. History of Raynaud's disease #16. Degenerative arthritis plan Plan: Continue Zosyn Continue bronchodilators and steroids Still requiring high flow oxygen, currently in the 100% nonrebreather Maintain aspiration precautions Hemodynamically patient is stable, although will need 2 units of packed red blood cells for hemoglobin of 6 Ostomy is functioning, no abdominal pain, no fever Today's labs have been reviewed Obtain follow-up chest x-ray and labs tomorrow Discussed condition with vascular surgery on the case, Recommend further optimization of patient's pulmonary status before proceeding with surgery We'll continue to closely follow in intensive care unit I performed a history & physical examination of the patient and discussed their management with my nurse practitioner, Carolee Robison. I reviewed the nurse practitioner's note and agree with the documented findings and plan of care. Lung sounds are positive for diffuse wheezes throughout the lung noble. The findings and the impression was discussed with the patient. I attest to the documentation by the nurse practitioner. Time with Patient: Less than 30
--- NOTE | 2021-01-22 15:01 | P.PN ---
Subjective Progress Note Date: 01/22/21 Seen and examined sitting up in the ICU. Patient states he does not have any pain in his left lower extremity. He denies any chest pain her abdominal pain at this time. Patient is awaiting swallow evaluation. Suspected aspiration pneumonia. Patient had a hemoglobin of 6.0 this morning with 2 units of PRBC transfusion ordered. No acute changes through the night. Oxygen saturation 98% on 15 L on non-rebreather Objective - Vital Signs Vital signs: Vital Signs Temp 98.8 F 01/22/21 04:00 Pulse 80 01/22/21 07:00 Resp 16 01/22/21 07:00 BP 98/54 01/22/21 07:00 Pulse Ox 93 L 01/22/21 07:00 Intake & Output 01/21/21 01/22/21 01/22/21 18:59 06:59 18:59 Intake Total 2013.365 1534.305 100 Output Total 770 520 50 Balance 1003.442 7703.305 50 Weight 63 kg 65 kg Intake: IV 1839 1458 100 .9 @100 20 .9NS 170 230 20 Fat Emulsion 20% 250 ml 189 168 In Empty Bag 1 bag @ 21 mls/hr IV MoWeFr [facility] Rx#: [id number] Magnesium Sulfate-D5w Pmx 100 1 gm In Dextrose/Water 1 100ml.bag @ 100 mls/hr IVPB ONCE ONE Rx#: [id number] Piperacillin-Tazobactam 3 180 100 .375 gm In Sodium Chloride 0.9% 100 ml @ 25 mls/hr IVPB Q8H [facility] Rx#: [id number] Potassium Chloride 20 meq 300 In Water For Injection 1 100ml.bag @ 50 mls/hr IVPB Q2H [facility] Rx#: [id number] Sodium Acetate 10 meq In 560 80 Amino Acid 5%-D20w+Lytes* E* 1,000 ml @ 80 mls/hr IV .BY DURATION [facility] Rx#: [id number] Sodium Acetate 40 meq 880 400 Potassium Phosphate 15 mmol Magnesium Sulfate gm 1 gm Calcium Gluconate 1 gm Mvi, Adult No.4 with Vit K 10 ml Trace (Conc- 1Ml/Dose) 1 ml In Amino Acids 5 %/Dextrose 20 % 1 ,000 ml @ 80 mls/hr IV . BY DURATION [facility] Rx#: [id number] Intake, IV Titration 174.365 76.305 Amount Heparin Sod,Pork in 0.45% 174.365 76.305 NaCl 25,000 unit In 0.45 % NaCl 1 250ml.bag @ 12 UNITS/KG/HR 7.656 mls/hr IV .Q24H [facility] Rx#: [id number] Output: Urine 770 520 50 Other: Voiding Method Indwelling Catheter Indwelling Catheter - Exam General appearance: The patient is alert, oriented, appears in no acute distress. Nonrebreather in place. HET: Head is normocephalic and atraumatic. Neck: Supple without lymphadenopathy. Trachea midline. Abdomen: Soft, mild diffuse tenderness, no guarding or rigidity. Ostomy with liquid brown output. Extremities: Left TMA site well approximated with sutures. Left foot with ischemic changes, dry gangrene at the TMA site, chronic. There are well approximated sutures as well as nolberto in the left lower extremity that are well approximated without any drainage or redness. Nonpalpable pulses at the bypass graft. Palpable bilateral femoral pulses. Left groin with nolberto well approximated without any drainage. Warm to the touch with good capillary refill. Neurological: No focal deficits. Alert and oriented 3. - Labs CBC & Chem 7: 01/22/21 03:31 01/22/21 03:31 Labs: Abnormal Lab Results - Last 24 Hours (Table) 01/21/21 01/21/21 01/22/21 Range/Units 17:55 22:22 03:31 WBC 22.3 H (3.8-10.6) k/uL RBC 2.00 L (4.30-5.90) m/uL Hgb 6.0 L* D (13.0-17.5) gm/dL Hct 19.6 L* (39.0-53.0) % MCHC 30.6 L (31.0-37.0) g/dL RDW 15.9 H (11.5-15.5) % Neutrophils # 18.3 H (1.3-7.7) k/uL Monocytes # 1.8 H (0-1.0) k/uL APTT 38.8 H (22.0-30.0) sec Sodium (137-145) mmol/L BUN (9-20) mg/dL Creatinine (0.66-1.25) mg/dL Glucose (74-99) mg/dL POC Glucose (mg/dL) 114 H (75-99) mg/dL 01/22/21 01/22/21 Range/Units 03:31 03:31 WBC (3.8-10.6) k/uL RBC (4.30-5.90) m/uL Hgb (13.0-17.5) gm/dL Hct (39.0-53.0) % MCHC (31.0-37.0) g/dL RDW (11.5-15.5) % Neutrophils # (1.3-7.7) k/uL Monocytes # (0-1.0) k/uL APTT 50.6 H (22.0-30.0) sec Sodium 134 L (137-145) mmol/L BUN 37 H (9-20) mg/dL Creatinine 1.35 H (0.66-1.25) mg/dL Glucose 123 H (74-99) mg/dL POC Glucose (mg/dL) (75-99) mg/dL Microbiology - Last 24 Hours (Table) 01/16/21 11:46 Blood Culture - Preliminary Blood No Growth after 120 hours 01/16/21 11:31 Blood Culture - Preliminary Blood No Growth after 120 hours 01/16/21 08:33 Blood Culture - Preliminary Blood No Growth after 120 hours Assessment and Plan Assessment: 1. History of peripheral arterial disease status post revascularization with a femoral to posterior tibialis bypass with CryoVein on 01/04/2021 by , occluded bypass 2. 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 Possible Aspiration pneumonia 4. Suspected Small bowel obstruction versus ileus, likely related to underlying SMA syndrome, general surgery is following 5. Acute leukocytosis 6. Hypotension 7. Pleural effusions 8. History of atrial fibrillation on Heparin drip 9. History of coronary artery disease 10. Tobacco abuse Plan: 1. Continue supportive care as recommended by ICU food inspector. Patient's case discussed with the Dr. York who recommends holding off on [id number] amputation at this time. 2. Agree with PRBC transfusion 3. Await recommendations from the food inspector regarding timing and left lower extremity [id number] amputation. Tentative plan or Thursday of this week. The impression and plan of care has been dictated as directed. Dr. Cevallos I performed a history and examination of this patient, discussed the same with the dictator. I agree with the dictator's note ,documented as a scribe. Any additional findings or plans will be noted.
[2021-01-22] MEDS: AMIODARONE 450 MG in DEXTROSE 5% IN WATER 250 ML IV SCH ×2 (16:36)
[2021-01-22 17:51] LABS: Glucose,Whole Blood 101 mg/dL (75-99)
[2021-01-22 17:59] LABS: HCT 30.7 % (39.0-53.0); MCHC 31.7 g/dL (31.0-37.0); MCV 94.6 fL (80.0-100.0); Mean Platelet Volume 8.1; Platelet Count 348 k/uL (150-450); Poikilocytosis Slight; RBC 3.25 m/uL (4.30-5.90); RDW 15.7 % (11.5-15.5); WBC 18.6 k/uL (3.8-10.6)
[2021-01-22 18:00] LABS: HGB 9.7 gm/dL (13.0-17.5)
--- NOTE | 2021-01-22 18:17 | PN ---
PROGRESS NOTE DATE OF SERVICE: 01/22/2021 This 65-year-old gentleman who was admitted with gangrene and severe infection of the right leg also had multiple medical issues, including atrial fibrillation. Patient also had bilateral lung lesions, possibly aspiration pneumonia. The patient also had acute hypoxic respiratory. Patient is needing high-flow oxygen and is currently on a non- rebreather. The patient is rather less responsive. Patient also has coffee-ground emesis. GI is following the patient closely. Vascular Surgery is also planning surgery in case the patient's condition stabilizes. The patient is being closely monitored in ICU at this time. Past medical history reviewed. Review of systems could not be taken; the patient is rather stuporous at this time. Hemoglobin has dropped down to 6 at this time. GI has been consulted. Two units of transfusion have been ordered. CURRENT MEDICATIONS: Noted. Tylenol, DuoNeb, Cordarone, Norvasc, aspirin, Symbicort, TPN. Rest of the medications noted. PHYSICAL EXAMINATION: Patient is stuporous. Pulse is 85, blood pressure 116/67, respirations 16, temperature 98.9, pulse ox 98% on room air. HEENT: Conjunctivae pale. NECK: No jugular venous distention. CARDIOVASCULAR: S1, S2 muffled. RESPIRATION: Breath sounds diminished at the bases. A few scattered rhonchi. ABDOMEN: Soft. LEGS: The left leg has significant infection and gangrene also present. NERVOUS SYSTEM: Diffusely weak. LABS: WBC 22.3, hemoglobin is 6, and platelets are 404. Sodium 134, potassium 3.7, creatinine is 1.35. ASSESSMENT: 1. Severe infection, necrotic lesion of the left lower leg, possibly ischemic in origin with acute severe sepsis, septic shock and hypotension, present on admission. 2. Atrial fibrillation with fast ventricular rate. 3. Change in mental status, acute metabolic encephalopathy. 4. Bilateral lung lesions, possibly bilateral aspiration pneumonia with acute hypoxic respiratory failure. 5. Vomiting and coffee-ground emesis with possible upper gastrointestinal bleeding. 6. Anemia, acute blood loss anemia possibly. 7. Abdominal distention and possible acute small-bowel obstruction versus ileus. 8. Hyponatremia. 9. Hypokalemia. 10.History of recent transmetatarsal amputation as well as femoral bypass surgery 3 weeks ago at [facility] of the left leg. 11.Peripheral vascular disease. 12.History of coronary artery disease. 13.Chronic anemia. 14.Acute kidney injury with acute tubular necrosis. 15.Chronic obstructive pulmonary disease. 16.Severe peripheral vascular disease. 17.Hypertension. 18.Chronic debility. 19.History of protein-calorie malnutrition. 20.Sacral decubitus ulcer, stage III. 21.History of nicotine dependence. 22.GI and DVT prophylaxis. 23.Hyponatremia. 24.Hypoalbuminemia with mild protein-calorie malnutrition. 25.Increased white count. RECOMMENDATIONS AND DISCUSSION: I recommend to continue current medications, continue with symptomatic treatment. Continue with the bronchodilators. Continue with empiric antibiotics. Ensure oxygenation. Transfusion as mentioned earlier. GI consultation and continued monitoring. Overall prognosis extremely guarded because of the multiple complex medical issues. Continue the TPN. Repeat labs. We will monitor the patient in the ICU. Guarded prognosis. Further recommendations to follow. I would also recommend to reduce the dose of Dilaudid to 0.5 rather than 1, which might contribute to the change in mental status also. MMODL / IJN: [id number] /
[2021-01-22] MEDS: HYDROmorphone 0.5 MG/0.5 ML SYRINGE IVP PRN ×2 (18:59→22:52)
--- NOTE | 2021-01-22 21:36 | PN ---
PROGRESS NOTE DATE OF SERVICE: 01/22/2021 REASON FOR FOLLOWUP: 1. Aspiration pneumonia. 2. Leukocytosis. INTERVAL HISTORY: Patient is afebrile. The patient remains to be on nonrebreather. The patient is hemodynamically stable. No vomiting, diarrhea, or any other changes reported by the nursing staff. The patient himself could not provide any history. PHYSICAL EXAMINATION: Blood pressure is 149/79, pulse 134, temperature 98.1, he is 99% on 15 L high-flow oxygen. General description is a middle-aged male lying in bed in no distress. Respiratory system: Unlabored breathing, decreased intensity with no wheeze. Heart S1, S2. Regular rate and rhythm. Abdomen soft, no tenderness. Left foot did have necrotic changes. LABORATORY DATA: White count down to 15.6. DIAGNOSTIC IMPRESSION AND PLAN: 1. The patient with acute respiratory failure which is multifactorial in this patient with possible component of aspiration pneumonia, covered with Zosyn. Sputum culture has been obtained that will be followed. Antibiotic adjusted further if needed. 2. Elevated white count showing a downward trend and we will monitor closely. MMODL / IJN: [id number] /
[2021-01-23 00:32] LABS: Glucose,Whole Blood 145 mg/dL (75-99)
[2021-01-23] MEDS: PIPERACILLIN-TAZOBACTAM 3.375 GM in SODIUM CHLORIDE 0.9% 100 ML IVPB SCH ×3 (02:25→18:44)
[2021-01-23] MEDS: HYDROmorphone 0.5 MG/0.5 ML SYRINGE IVP PRN ×6 (02:25→22:36)
[2021-01-23 05:06] LABS: Basophils # (A) 0.1 k/uL (0-0.2); Basophils % (A) 0 %; Eosinophils # (A) 0.5 k/uL (0-0.7); Eosinophils % (A) 3 %; HCT 31.9 % (39.0-53.0); Hypochromasia Slight; Lymphocytes # (A) 0.7 k/uL (1.0-4.8); Lymphocytes % (A) 4 %; MCH 30.3 pg (25.0-35.0); MCHC 31.4 g/dL (31.0-37.0); MCV 96.7 fL (80.0-100.0); Mean Platelet Volume 8.3; Monocytes # (A) 1.1 k/uL (0-1.0); Monocytes % (A) 7 %; Neutrophils # (A) 13.4 k/uL (1.3-7.7); Neutrophils % (A) 84 %; Platelet Count 330 k/uL (150-450); RDW 15.4 % (11.5-15.5); WBC 15.9 k/uL (3.8-10.6)
[2021-01-23 05:23] LABS: Albumin 2.3 g/dL (3.5-5.0); Calcium 8.5 mg/dL (8.4-10.2); Potassium 4.5 mmol/L (3.5-5.1); Total Bilirubin 1.4 mg/dL (0.2-1.3); Total Protein 5.8 g/dL (6.3-8.2)
[2021-01-23 05:55] LABS: Magnesium 2.2 mg/dL (1.6-2.3); Phosphorus 3.2 mg/dL (2.5-4.5)
[2021-01-23] MEDS: MORPHINE SULFATE IR 15 MG TABLET PO SCH ×4 (06:31→23:29)
[2021-01-23] MEDS: AMIODARONE 450 MG in DEXTROSE 5% IN WATER 250 ML IV SCH ×4 (06:32→22:26)
[2021-01-23 06:48] LABS: Glucose,Whole Blood 139 mg/dL (75-99)
[2021-01-23] MEDS: IPRATROPIUM-ALBUTEROL 3 ML NEB INHALATION SCH ×4 (08:11→20:38)
[2021-01-23] MEDS: SYMBICORT 80-4.5 MCG INHALER INHALATION SCH ×2 (08:15→20:38)
[2021-01-23] MEDS ORDERED: DILTIAZEM DRIP BOLUS FROM BAG 1 MG SOLN IV ONE (08:23)
[2021-01-23] MEDS: amLODIPine 5 MG TAB PO SCH (09:16)
[2021-01-23] MEDS: GABAPENTIN 300 MG CAP PO SCH ×3 (09:16→23:29)
[2021-01-23] MEDS: DOCUSATE 100 MG CAP PO SCH (09:16)
[2021-01-23] MEDS: METOPROLOL TARTRATE 50 MG TAB PO SCH ×2 (09:16→20:52)
[2021-01-23] MEDS: MULTIVITAMINS, THERA 1 EACH TAB PO SCH (09:17)
[2021-01-23] MEDS: ASPIRIN 300 MG SUPP RECTAL SCH (09:18)
--- NOTE | 2021-01-23 09:31 | PN ---
PROGRESS NOTE Mr. Joaquin remains in atrial fibrillation. Rate is faster. He is on IV amiodarone, but the atrial fibrillation rate seems to be fast. His hemoglobin is stable at 10.0 today. He received 2 units of packed RBCs yesterday. He is going to have a swallow test performed today. I am recommending that we will add Cardizem 7.5 mg bolus and drip. Ejection fraction is in the 45% range. We will also continue amiodarone and optimize rate control. I explained to the patient that we will try to optimize rate control to prevent any LV dysfunction that may occur with persistent atrial fibrillation. We will also resume anticoagulation if okay with Vascular Surgery with a low-dose heparin protocol and give him aspirin per rectum since he cannot swallow. Swallow eval will be done today. Blood pressure is 108/70. Pulse rate is about 120 to 130. JVD 1 cm. No carotid bruit. S1, S2 with tachycardia. Short systolic murmur. Lungs reveal diminished air entry. Abdomen is soft. Lower extremities, especially left lower extremity, which is to be amputated, has no pain. Prognosis remains poor. MMODL / IJN: [id number] /
[2021-01-23] MEDS: DILTIAZEM 125 MG in SODIUM CHLORIDE 0.9% 100 ML IV SCH (09:35)
[2021-01-23] MEDS: HEPARIN SOD,PORK IN 0.45% NACL 25,000 UNIT in 0.45% NACL 1 250ML.BAG IV SCH (09:35)
[2021-01-23] MEDS: PANTOPRAZOLE 40 MG/10 ML VIAL IVP SCH ×2 (09:36→20:53)
[2021-01-23] MEDS: FUROSEMIDE 10 MG/ML 4 ML VIAL IV SCH ×2 (09:36→20:53)
[2021-01-23] MEDS: methylPREDNISolone SOD SUCCI 40 MG/ML 1 ML VIAL IV SCH ×2 (09:36→20:52)
[2021-01-23] MEDS: FAT EMULSION 20% 250 ML in EMPTY BAG 1 BAG IV SCH (09:36)
--- NOTE | 2021-01-23 09:46 | XR ---
EXAMINATION TYPE: XR chest 1V portable DATE OF EXAM: 01/23/2021 COMPARISON: Chest x-ray 01/21/2021 HISTORY: Aspiration pneumonia TECHNIQUE: frontal view of the chest is obtained on 2 images. FINDINGS: Bilateral airspace disease shows a similar appearance. There is a left jugular central lucina ous catheter which is stable. Basilar density persists, and the hemidiaphragms are obscured. Cardiac mediastinal silhouette is likely stable. There is blunting of the costophrenic angle. No evident pneu mothorax. There are overlying artifacts. There is dense. IMPRESSION: Findings may represent congestive heart failure or effusions, pneumonia
--- NOTE | 2021-01-23 12:34 | P.PN ---
Subjective Progress Note Date: 01/23/21 Principal diagnosis: Aspiration pneumonia, atrial fibrillation with rapid ventricular response, SMA syndrome 65-year-old male patient, comes into the hospital because of fever and difficulty breathing of 2 days' duration. Apparently there was a very poor historian. Apparently he also had a left foot transmetatarsal amputation and this was done [facility] approximately 3 weeks ago. He also mentioned he had a previous time bypass surgery. The patient also has other comorbid conditions including chronic atrial fibrillation, coronary artery disease, peripheral vascular disease, COPD, complicated diverticulitis and previous bowel resection and colostomy and Malcolm's pouch. The patient came to us from the [facility]. The patient was apparently having worsening shortness of breath. He was found to be in A. fib RVR at time of admission. Time of admission, he was febrile with a temperature of 100.3 and the patient was also tachycardic with a heart rate in the 120s and pulse ox was 94% on room air oxygen. Initial white cell count was at 5.3 and the patient had a creatinine of 1.32 with a BUN of 17. Overnight events and was negative. UA was positive for moderate amount of leukocyte esterase with 30 WBCs. Chest x-ray showed moderate bilateral pleural effusion. EKG was consistent with A. fib/RVR. This morning, we got contacted by the medical team as the patient's condition is gotten worse. The patient has developed worsening in A. fib RVR, hypotension with a systolic blood pressure in the mid 70s, pulse ox of 95-99% 15 L of Oxymizer nasal cannula, lactic acid level of 4.5, and a white cell count of 51.1. The patient received 500 mL bolus and currently the patient is running on normal saline at the rate of 100 mL an hour. Based on all this, in ICU transfer was requested. The patient's cultures including urine and blood cultures during this current admission has been negative. The patient is covered with anti biotics and the patient is receiving IV Zosyn as a broad-spectrum antibiotic coverage. Terms of her his adjuvant fibrillation, the patient had been placed on amiodarone drip which is running at 0.5 mg per minute and the patient is on metoprolol 100 mg every 8 hours for rate control and Cardizem drip at 5 mg per hour for rate control. No antiplatelet has been offered that the patient has previous history of GI bleed. With that spoken, the patient developed an acute kidney injury. Creatinine is up to 2.04 from a normal baseline. At the time of my evaluation, the patient had some mild abdominal distention. He had some mild abdominal tenderness there was diffuse. Absent bowel sounds. Orogastric tube has been inserted and the patient has drained approximately 600 mL of gastric material. Nevertheless, there is some yellowish stool like material collecting in his colostomy bag. At the same time, the patient was inspected for his left lower extremity. There is the left femoral pulse. There are nolberto in the left femoral area and in the left lower extremity thigh area which indicates a recent vascular bypass surgery performed probably a fem-pop bypass surgery. At the same time, there was Doppler signals only in the popliteal artery, absent pulses in the left lower extremity, the left foot shows evidence of a transmetatarsal amputation and the surgical wound site is necrotic and gangrenous. There is also necrosis extending in the dorsal aspect of the left foot, the foot itself is cold and there are no pulses in the posterior tibialis and dorsalis pedis area. The area is red and the medial aspect of the malleolus On today's evaluation of 01/17/2021, patient is slightly improved compared to yesterday. Is awake and alert. Note that he continues to have bowel obs truction. Abdomen is slightly distended. Abdomen is mill tender washing although less compared to yesterday. A CAT scan of the abdomen and pelvis was performed yesterday and the patient had evidence of small bowel ileus. No evidence of any pneumoperitoneum. No evidence of any acute abdomen. Note that the patient was in [facility] and he was evaluated by the surgical team in the past for similar reason and the patient was found to have acute SMA syndrome. The patient underwent EGD and surgical evaluation ultimately he recovered spontaneously. For now, NG tube is in place. Output was noted. Output has been in the order of 200 mL since yesterday. He still has some material coming out of his colostomy bag. In terms of fluid status, triple lumen catheter was inserted yesterday the patient is currently on IV fluids normal saline. He received a total of 2 L of IV fluid and he did not require any pressors. The patient is currently on IV fluids and he is on IV heparin in combination with IV Zosyn. The white cell count is down to 25 and the patient has also improved in terms of his Acute kidney injury. Creatinine is down to 1.6. Potassium level is at 3.[address], BUN is 25, UA was abnormal with clumps of WBCs and the patient remains on IV Zosyn, cultures are still pending for now. Stool for C. diff has been negative. The patient was evaluated by the vascular surgical team. Obviously the patient will need a amputation of the left lower extremity and this will be done once more stable. The acute decompensation that occurred yesterday with essentially related to his small bowel obstruction. General surgery on the case. Consultation was placed and an evaluation has not been done yet. Meanwhile, the patient remains on IV Zosyn. The patient is on IV heparin. Cultures of been negative thus far. He remains nothing by mouth. NG tube is in place. TPN will be initiated as the patient is quite cachectic and malnourished with a Bmi of 17.6. On today's evaluation on 01/18/2021 patient seen in follow-up in the intensive care unit, she is awake and alert, in no acute distress, is currently down to 6 L of oxygen his pulse ox is 90-91%, he does have a very congested cough, he is bringing up jama and yellow colored phlegm. No hemoptysis, she is hemodynamically significantly more stable compared to 48 hours ago. She is in sinus mechanism with a rate of 94, he is not on any vasopressor support, he is on amiodarone at 0.5 mg/m, and patient has converted to sinus mechanism yesterday in which he remained. He was started on TPN at 32 ML per hour and this is being titrated per dietary recommendations, his maintenance IV fluids 0.9 normal saline at a rate of 100 ML per hour, NG tube remains in place with minimal output in the last 24 hours, abdomen is significantly less distended, nontender, and his colostomy is producing greenish colored stool, but no significant amount of gas. He remains on Zosyn, patient is also on heparin infusion for anti-coagulation. His chest x-ray yesterday showed bilateral infiltrates and pleural effusion. CBC is pending right now, BMP has resulted in showing sodium of 136, potassium is 3.1, chloride is 110, CO2 is 17, BUN of 23 creatinine is 1.43 and his renal function is improving, LFTs are within normal limits. Urinalysis showed possibility of underlying urinary tract infection with greater than 182 leukocytes, moderate bacteria, urine culture has shown no growth, blood cultures have been negative as well. On 01/22/2021 patient seen in follow-up in the intensive care unit, his lipid 3. Today's exam, but easily arousable, he is on 100% nonrebreather mask, his pulse ox is 97-98%. He is afebrile, he is not requiring any vasopressor support. He is receiving TPN at 80 ML per hour, and she is on lipids on Thursday schedule, he remains on heparin infusion per weight-based protocol. His last chest x-ray yesterday shows COPD with bilateral infiltrates and pleural effusion related to aspiration pneumonia, and possibility of CHF is not completely excluded. Today's labs have been reviewed white count is relatively stable, at 22.3, his hemoglobin is down to 6.0 from 9.1 on yesterday's labs, and patient will receive 2 units of packed red blood cells, his platelet count is 404, his PTT is 50.6, sodium is 134, the respiratory infection lites were within normal limits, BUN is 37, creatinine 1.35, he was retested for COVID-19 with a PCR test was negative, it gastric or cold blood was negative. Surgery is following in regards to small bowel obstruction related to SMA syndrome, his ostomy is functioning, he does not complain of any abdominal pain, bowel sounds are present. No fever or chills. Hemodynamically patient has remained in sinus mechanism, he is not able to take anything by mouth currently, he is awaiting swallow evaluation today, he remains on beta blockers and oral amiodarone, there has been no recurrence of atrial fibrillation. His lower extremities reveal diminished pulses, patient is being considered for left [id number] amputation by vascular surgery pending further improvement of patient's respiratory status. The patient is seen today 01/23/2021 in follow-up in the intensive care unit. He is currently resting fairly comfortably in bed. He is awake. Alert. Still requiring 15 L for 100% nonrebreather mask. He's been intolerant to nasal cannula. He remains in atrial fibrillation. He is on a heparin drip. He remains on amiodarone at 0.5 mg/m, Cardizem drip at 7.5 mg per hour. He's to be initiated on aspirin as well. Swallow evaluation is pending. Chest x-ray continues to show bilateral infiltrates greater on the left lung suspected aspiration pneumonia. Also evidence of interstitial edema. Hemoglobin yesterday was down as low as 6.0. He is status post 2 units of packed red blood cells. Current hemoglobin 10.0. White count 15.9. Sodium 136. Potassium 4.5. Creatinine 1.19. Glucose 139. Zhang virus not detected. Gastric occult blood negative. He remains on Zosyn, bronchodilators, IV Solu-Medrol. He is on IV diuretics. Being nourished with TPN and lipids. Ostomy is functioning. Left below the knee amputation pending. Objective - Vital Signs Vital signs: Vital Signs Temp 98.8 F 01/23/21 08:00 Pulse 118 H 01/23/21 10:00 Resp 26 H 01/23/21 10:00 BP 115/65 01/23/21 10:00 Pulse Ox 98 01/23/21 10:00 Intake & Output 01/22/21 01/23/21 01/23/21 18:59 06:59 18:59 Intake Total 2380 272.227 218.96 Output Total 865 995 30 Balance 1515 -722.773 188.96 Weight 65.5 kg Intake: IV 540 40 93 .9NS 260 40 30 Fat Emulsion 20% 250 ml 63 In Empty Bag 1 bag @ 21 mls/hr IV MoWeFr [facility] Rx#: [id number] Piperacillin-Tazobactam 3 200 .375 gm In Sodium Chloride 0.9% 100 ml @ 25 mls/hr IVPB Q8H [facility] Rx#: [id number] Sodium Acetate 10 meq In 80 Amino Acid 5%-D20w+Lytes* E* 1,000 ml @ 80 mls/hr IV .BY DURATION [facility] Rx#: [id number] Intake, IV Titration 1220 232.227 125.96 Amount Amiodarone 450 mg In 232.227 Dextrose 5% in Water 250 ml @ 0.5 MG/MIN 16.667 mls/hr IV .Q15H [facility] Rx#: [id number] Diltiazem 125 mg In 22.5 Sodium Chloride 0.9% 100 ml @ 7.5 MG/HR 7.5 mls/hr IV .[id number] [facility] Rx#: [id number] Heparin Sod,Pork in 0.45% 23.46 NaCl 25,000 unit In 0.45 % NaCl 1 250ml.bag @ 12 UNITS/KG/HR 7.86 mls/hr IV .Q24H [facility] Rx#: [id number] Mvi, Adult No.4 with Vit 960 K 10 ml Trace (Conc-1Ml/ Dose) 1 ml Sodium Acetate 20 meq Potassium Chloride 20 meq Magnesium Sulfate gm 0.75 gm In Amino Acid 5%-D20w+Lytes* E* 1,000 ml @ 80 mls/hr IV .BY DURATION [facility] Rx#: [id number] Mvi, Adult No.4 with Vit 160 K 10 ml Trace (Conc-1Ml/ Dose) 1 ml Sodium Acetate 20 meq Potassium Chloride 20 meq Magnesium Sulfate gm 0.75 gm In Amino Acid 5%-D20w+Lytes* E* 1,000 ml @ 80 mls/hr IV .BY DURATION [facility] Rx#: [id number] Potassium Chloride 20 meq 100 In Water For Injection 1 100ml.bag @ 50 mls/hr IVPB ONCE ONE Rx#: [id number] Sodium Acetate 20 meq 80 Potassium Chloride 20 meq Magnesium Sulfate gm 0. 75 gm In Amino Acid 5%- D20w+Lytes*E* 1,000 ml @ 80 mls/hr IV .BY DURATION [facility] Rx#:[id number] Blood Product 620 Rc As-1 Unit 310 [id number] Rc As-1 Unit 310 [id number] Output: Urine 715 915 30 Stool 150 80 Other: Voiding Method Indwelling Catheter Indwelling Catheter External Catheter - Exam GENERAL EXAM: Awake, alert, 65-year-old male patient, looks chronically debilitated, and chronically ill, oriented 3, on 100% nonrebreather mask with a pulse ox of 98% with frequent congested cough with production of yellow colored phlegm, comfortable in no apparent distress. HEAD: Normocephalic/atraumatic. EYES: Normal reaction of pupils, equal size. Conjunctiva pink, sclera white. NOSE: Clear with pink turbinates. THROAT: No erythema or exudates. NECK: No masses, no JVD, no thyroid enlargement, no adenopathy. CHEST: No chest wall deformity. Symmetrical expansion. LUNGS: Equal air entry with diminished breath sounds at the bases, scattered rhonchi CVS: Regular rate and rhythm, normal S1 and S2, no gallops, no murmurs, no rubs ABDOMEN: Abdomen slightly distended. There is direct tenderness. No rebound tensile guarding. Bowel sounds absent. The colostomy site is viable and there is some stool material collecting and abdominal colostomy bag. EXTREMITIES: Extremities the patient has scars of previous vascular bypass surgery and the nolberto are present in the left inguinal area, left medial thigh and left foot just superior to the malleolus. There is some wetness and drainage coming from the foot incision. There is also dry gangrene at the site of the metatarsal or transmetatarsal amputation.There are no Doppler signals in the dorsalis pedis and radial tibialis. There is obviously guarded and the p opliteal area and there is palpable pulses in the femoral area MUSCULOSKELETAL: Muscle strength weak with tone normal. SPINE: No scoliosis or deformity SKIN: No rashes CENTRAL NERVOUS SYSTEM: No focal deficits, tone is normal in all 4 extremities. PSYCHIATRIC: Alert and oriented -3. Appropriate affect. Intact judgment and insight. - Labs CBC & Chem 7: 01/23/21 04:33 01/23/21 04:33 Labs: Abnormal Lab Results - Last 24 Hours (Table) 01/22/21 01/22/21 01/22/21 Range/Units 07:05 16:40 17:49 WBC 18.6 H (3.8-10.6) k/uL RBC 3.25 L (4.30-5.90) m/uL Hgb 9.7 L D (13.0-17.5) gm/dL Hct 30.7 L (39.0-53.0) % RDW 15.7 H (11.5-15.5) % Neutrophils # (1.3-7.7) k/uL Lymphocytes # (1.0-4.8) k/uL Monocytes # (0-1.0) k/uL Sodium (137-145) mmol/L BUN (9-20) mg/dL Glucose (74-99) mg/dL POC Glucose (mg/dL) 101 H (75-99) mg/dL Total Bilirubin (0.2-1.3) mg/dL Total Protein (6.3-8.2) g/dL Albumin (3.5-5.0) g/dL Crossmatch See Detail 01/23/21 01/23/21 01/23/21 Range/Units 00:20 04:33 04:33 WBC 15.9 H (3.8-10.6) k/uL RBC 3.30 L (4.30-5.90) m/uL Hgb 10.0 L (13.0-17.5) gm/dL Hct 31.9 L (39.0-53.0) % RDW (11.5-15.5) % Neutrophils # 13.4 H (1.3-7.7) k/uL Lymphocytes # 0.7 L (1.0-4.8) k/uL Monocytes # 1.1 H (0-1.0) k/uL Sodium 136 L (137-145) mmol/L BUN 38 H (9-20) mg/dL Glucose 139 H (74-99) mg/dL POC Glucose (mg/dL) 145 H (75-99) mg/dL Total Bilirubin 1.4 H (0.2-1.3) mg/dL Total Protein 5.8 L (6.3-8.2) g/dL Albumin 2.3 L (3.5-5.0) g/dL Crossmatch 01/23/21 Range/Units 06:47 WBC (3.8-10.6) k/uL RBC (4.30-5.90) m/uL Hgb (13.0-17.5) gm/dL Hct (39.0-53.0) % RDW (11.5-15.5) % Neutrophils # (1.3-7.7) k/uL Lymphocytes # (1.0-4.8) k/uL Monocytes # (0-1.0) k/uL Sodium (137-145) mmol/L BUN (9-20) mg/dL Glucose (74-99) mg/dL POC Glucose (mg/dL) 139 H (75-99) mg/dL Total Bilirubin (0.2-1.3) mg/dL Total Protein (6.3-8.2) g/dL Albumin (3.5-5.0) g/dL Crossmatch Microbiology - Last 24 Hours (Table) 01/22/21 10:30 Gram Stain - Preliminary Sputum Sputum Culture - Preliminary 01/16/21 11:46 Blood Culture - Final Blood No Growth after 144 hours 01/16/21 11:31 Blood Culture - Final Blood No Growth after 144 hours 01/16/21 08:33 Blood Culture - Final Blood No Growth after 144 hours Assessment and Plan Assessment: 1 Recurrent small bowel obstruction. This is likely due to an underlying SMA syndrome. The patient had a similar episodes 2 weeks back at [facility]. Patient has an NG tube catheter in place. There is positive output and his colostomy site. CAT scan of the abdomen was noted. The patient remains on IV Zosyn. No clear indication for an acute mesenteric ischemia. 2 Acute hypotension, likely secondary to above with possibly a component of sepsis, systolic blood pressures the mid 70s, the patient was given a liter of bolus of normal saline and his systolic blood pressures up to the 90. Noted the patient responded nicely to fluids and the patient has not required any pressors 3 Acute leukocytosis, improving 4 Acute lactic acidosis, improved 5 Acute kidney injury, creatinine is improving 6 Acute hypoxic respiratory failure with possible aspiration in addition to chronic bilateral pleural effusions 7 Peripheral vascular disease with recent transmetatarsal amputation of the left foot and the patient has dry gangrene, vascular surgery on the case considering a left lower extremity amputation [id number] 8 Coronary artery disease 9 A. fib with RVR currently on a combination of amiodarone drip, and heparin infusion, and now Cardizem drip 10 Abdominal incision suspected bowel obstruction. NG tube is in place and a flat film of the abdomen showed numerous dilated small bowels related to possibility of bowel obstruction 11 History of depression 12 COPD 13 History of diverticulitis requiring bowel resection and colectomy and diverting colostomy with Malcolm's pouch 14 History of bladder injury, iatrogenic in nature and the patient had a surgical repair 15 History of Raynaud's disease 16 Degenerative arthritis plan 17 Anemia, status post 2 units packed red blood cells. Current hemoglobin 10.0 Plan: The patient was seen and evaluated by Dr. Tse Chest x-ray and labs reviewed Remains on 100 percent nonrebreather Swallow evaluation pending Add Lasix 40 mg IV every 12 hours Add IV Solu-Medrol 40 mg every 12 hours Remains on amiodarone, Cardizem drip and heparin drip Overall prognosis remains quite guarded We will continue to follow and make further recommendations based on his clinical status I, the cosigning physician, performed a history & physical examination of the patient. Lungs sounds with bilateral scattered rhonchi. Maintaining good O2 saturations in the 90s on 100% nonrebreather mask. I discussed the assessment and plan of care with my nurse practitioner, Dana Stockton. I attest to the above note as dictated by her.
[2021-01-23 12:40] LABS: Glucose,Whole Blood 162 mg/dL (75-99)
--- NOTE | 2021-01-23 14:07 | FL ---
EXAMINATION TYPE: FL barium swallow w video DATE OF EXAM: 01/23/2021 CLINICAL HISTORY: 65-year-old male failed swallowing evaluation with speech. Admitted for gangrene of the foot.. TECHNIQUE: Deglutition study is performed utilizing thin liquid barium, honey and nectar thick liqui d barium, barium thick pudding. Total fluoroscopy time: 2 minutes 7 seconds. Total images: None. Real-time fluoroscopy support was provided to speech pathology. COMPARISON: None. FINDINGS: We note decreased laryngeal closure allowing for deep penetration with all consistencies. No aspirati on is seen. Moderate piriform sinus residuals are noted. As the patient is edentulous, solid consiste ncy was not assessed. IMPRESSION: Decreased laryngeal closure with deep penetration with all consistencies. No aspiration seen. Please refer to speech therapist notes for further details if necessary.
--- NOTE | 2021-01-23 15:50 | P.PN ---
Subjective Progress Note Date: 01/23/21 Patient seen and examined. Discussed with patient in ICU nursing staff. Patient did receive 2 units packed red cells. He still remains on 15 L 100% nonrebreather. He does have positive sputum cultures. He continues on amiodarone, Cardizem and heparin drip at this time. Objective - Vital Signs Vital signs: Vital Signs Temp 98.8 F 01/23/21 12:00 Pulse 99 01/23/21 14:00 Resp 17 01/23/21 14:00 BP 135/79 01/23/21 14:00 Pulse Ox 98 01/23/21 14:00 Intake & Output 01/22/21 01/23/21 01/23/21 18:59 06:59 18:59 Intake Total 2380 859.930 7922.36 Output Total 044 713 1995 Balance 1515 -722.773 -1323.64 Weight 65.5 kg Intake: IV 540 40 123 .9NS 260 40 60 Fat Emulsion 20% 250 ml 63 In Empty Bag 1 bag @ 21 mls/hr IV MoWeFr [facility] Rx#: [id number] Piperacillin-Tazobactam 3 200 .375 gm In Sodium Chloride 0.9% 100 ml @ 25 mls/hr IVPB Q8H [facility] Rx#: [id number] Sodium Acetate 10 meq In 80 Amino Acid 5%-D20w+Lytes* E* 1,000 ml @ 80 mls/hr IV .BY DURATION [facility] Rx#: [id number] Intake, IV Titration 1220 658.842 5822.36 Amount Amiodarone 450 mg In 232.227 Dextrose 5% in Water 250 ml @ 0.5 MG/MIN 16.667 mls/hr IV .Q15H [facility] Rx#: [id number] Diltiazem 125 mg In 45.0 Sodium Chloride 0.9% 100 ml @ 7.5 MG/HR 7.5 mls/hr IV .[id number] [facility] Rx#: [id number] Heparin Sod,Pork in 0.45% 46.86 NaCl 25,000 unit In 0.45 % NaCl 1 250ml.bag @ 12 UNITS/KG/HR 7.86 mls/hr IV .Q24H [facility] Rx#: [id number] Mvi, Adult No.4 with Vit 960 K 10 ml Trace (Conc-1Ml/ Dose) 1 ml Sodium Acetate 20 meq Potassium Chloride 20 meq Magnesium Sulfate gm 0.75 gm In Amino Acid 5%-D20w+Lytes* E* 1,000 ml @ 80 mls/hr IV .BY DURATION [facility] Rx#: [id number] Mvi, Adult No.4 with Vit 160 K 10 ml Trace (Conc-1Ml/ Dose) 1 ml Sodium Acetate 20 meq Potassium Chloride 20 meq Magnesium Sulfate gm 0.75 gm In Amino Acid 5%-D20w+Lytes* E* 1,000 ml @ 80 mls/hr IV .BY DURATION [facility] Rx#: [id number] Potassium Chloride 20 meq 100 In Water For Injection 1 100ml.bag @ 50 mls/hr IVPB ONCE ONE Rx#: [id number] Sodium Acetate 20 meq 320 Potassium Chloride 20 meq Magnesium Sulfate gm 0. 75 gm In Amino Acid 5%- D20w+Lytes*E* 1,000 ml @ 80 mls/hr IV .BY DURATION [facility] Rx#:[id number] Sodium Acetate 20 meq 1021.5 Potassium Chloride 20 meq Magnesium Sulfate gm 0. 75 gm In Amino Acid 5%- D20w+Lytes*E* 1,000 ml @ 80 mls/hr IV .BY DURATION [facility] Rx#:[id number] Blood Product 620 Rc As-1 Unit 310 [id number] Rc As-1 Unit 310 [id number] Output: Urine 086 660 6960 Male - External 1100 Stool 150 80 Other: Voiding Method Indwelling Catheter Indwelling Catheter Indwelling Catheter - Exam Gen. is a pleasant male in moderate respiratory distress however stable at this time. HEENT is normocephalic. Heart is irregularly irregular. Lungs with coarse breath sounds bilaterally and diminished. Abdomen is soft, nontender nondistended. Functioning ostomy. Extremities with no clubbing. Left lower extremity dry gangrene as previous. - Labs CBC & Chem 7: 01/23/21 04:33 01/23/21 04:33 Labs: Abnormal Lab Results - Last 24 Hours (Table) 01/22/21 01/22/21 01/23/21 Range/Units 16:40 17:49 00:20 WBC 18.6 H (3.8-10.6) k/uL RBC 3.25 L (4.30-5.90) m/uL Hgb 9.7 L D (13.0-17.5) gm/dL Hct 30.7 L (39.0-53.0) % RDW 15.7 H (11.5-15.5) % Neutrophils # (1.3-7.7) k/uL Lymphocytes # (1.0-4.8) k/uL Monocytes # (0-1.0) k/uL Sodium (137-145) mmol/L BUN (9-20) mg/dL Glucose (74-99) mg/dL POC Glucose (mg/dL) 101 H 145 H (75-99) mg/dL Total Bilirubin (0.2-1.3) mg/dL Total Protein (6.3-8.2) g/dL Albumin (3.5-5.0) g/dL 01/23/21 01/23/21 01/23/21 Range/Units 04:33 04:33 06:47 WBC 15.9 H (3.8-10.6) k/uL RBC 3.30 L (4.30-5.90) m/uL Hgb 10.0 L (13.0-17.5) gm/dL Hct 31.9 L (39.0-53.0) % RDW (11.5-15.5) % Neutrophils # 13.4 H (1.3-7.7) k/uL Lymphocytes # 0.7 L (1.0-4.8) k/uL Monocytes # 1.1 H (0-1.0) k/uL Sodium 136 L (137-145) mmol/L BUN 38 H (9-20) mg/dL Glucose 139 H (74-99) mg/dL POC Glucose (mg/dL) 139 H (75-99) mg/dL Total Bilirubin 1.4 H (0.2-1.3) mg/dL Total Protein 5.8 L (6.3-8.2) g/dL Albumin 2.3 L (3.5-5.0) g/dL 01/23/21 Range/Units 12:38 WBC (3.8-10.6) k/uL RBC (4.30-5.90) m/uL Hgb (13.0-17.5) gm/dL Hct (39.0-53.0) % RDW (11.5-15.5) % Neutrophils # (1.3-7.7) k/uL Lymphocytes # (1.0-4.8) k/uL Monocytes # (0-1.0) k/uL Sodium (137-145) mmol/L BUN (9-20) mg/dL Glucose (74-99) mg/dL POC Glucose (mg/dL) 162 H (75-99) mg/dL Total Bilirubin (0.2-1.3) mg/dL Total Protein (6.3-8.2) g/dL Albumin (3.5-5.0) g/dL Microbiology - Last 24 Hours (Table) 01/22/21 10:30 Gram Stain - Preliminary Sputum Sputum Culture - Preliminary Gram Neg Bacilli 01/16/21 11:46 Blood Culture - Final Blood No Growth after 144 hours 01/16/21 11:31 Blood Culture - Final Blood No Growth after 144 hours 01/16/21 08:33 Blood Culture - Final Blood No Growth after 144 hours Assessment and Plan Assessment: Left lower extremity dry gangrene Failed left lower extremity bypass Acute hypoxic respiratory failure on O2, positive sputum cultures Leukocytosis, improving Small bowel obstruction, improving Plan: Given the patient's overall picture, there is no urgency to his above-knee amputation. Given the high risk of this procedure, we will await significant improvement of his respiratory and cardiac status. He currently remains on a rent drip. We will plan to do the surgery under spinal anesthetic. Would need anesthesia evaluation for this prior to intervention. Would consider possibly undergoing on January 25 if he is improving from a respiratory standpoint as there is no emergent or urgent issue regarding his amputation at this time, merely pain control and removal of dry gangrene.
--- NOTE | 2021-01-23 16:06 | P.PN ---
Subjective Progress Note Date: 01/23/21 CHIEF COMPLAINT: Fever HISTORY OF PRESENT ILLNESS: Patient remains in the ICU. Surgical service is following his small bowel obstruction. Patient's ostomy is functioning. Patient lying in bed comfortably. No complaints of abdominal pain reported. He is scheduled for a modified barium swallow eval again today. He was too lethargic yesterday to have a completed. His hemoglobin after the unit of blood has gone up to 10. Gastric occult was negative. Afebrile. Patient seen and examined with Dr. Medina PHYSICAL EXAM: VITAL SIGNS: Reviewed. GENERAL: Well-developed in no acute distress. HEENT: No sclera icterus. Extraocular movements grossly intact. Moist buccal mucosa. Head is atraumatic, normocephalic. ABDOMEN: Soft. Nondistended Nontender. ileostomy with dark green stool NEUROLOGIC: Alert and oriented. Cranial nerves II through XII grossly intact. ASSESSMENT: 1. Small bowel obstruction improved 2. Recurrent small bowel obstruction and underlying SMA syndrome PLAN: -Continue ICU management -Continue supportive care -Patient scheduled for MBS swallow study today -Continue TPN for nutrition support Physician Frit Coater note has been reviewed by physician. Signing provider agrees with the documented findings, assessment, and plan of care. Objective - Vital Signs Vital signs: Vital Signs Temp 98.8 F 01/23/21 12:00 Pulse 99 01/23/21 14:00 Resp 17 01/23/21 14:00 BP 135/79 01/23/21 14:00 Pulse Ox 98 01/23/21 14:00 Intake & Output 01/22/21 01/23/21 01/23/21 18:59 06:59 18:59 Intake Total 2380 913.064 3376.36 Output Total 725 079 7041 Balance 1515 -722.773 -1323.64 Weight 65.5 kg Intake: IV 540 40 123 .9NS 260 40 60 Fat Emulsion 20% 250 ml 63 In Empty Bag 1 bag @ 21 mls/hr IV MoWeFr [facility] Rx#: [id number] Piperacillin-Tazobactam 3 200 .375 gm In Sodium Chloride 0.9% 100 ml @ 25 mls/hr IVPB Q8H [facility] Rx#: [id number] Sodium Acetate 10 meq In 80 Amino Acid 5%-D20w+Lytes* E* 1,000 ml @ 80 mls/hr IV .BY DURATION [facility] Rx#: [id number] Intake, IV Titration 1220 851.453 4368.36 Amount Amiodarone 450 mg In 232.227 Dextrose 5% in Water 250 ml @ 0.5 MG/MIN 16.667 mls/hr IV .Q15H [facility] Rx#: [id number] Diltiazem 125 mg In 45.0 Sodium Chloride 0.9% 100 ml @ 7.5 MG/HR 7.5 mls/hr IV .[id number] [facility] Rx#: [id number] Heparin Sod,Pork in 0.45% 46.86 NaCl 25,000 unit In 0.45 % NaCl 1 250ml.bag @ 12 UNITS/KG/HR 7.86 mls/hr IV .Q24H [facility] Rx#: [id number] Mvi, Adult No.4 with Vit 960 K 10 ml Trace (Conc-1Ml/ Dose) 1 ml Sodium Acetate 20 meq Potassium Chloride 20 meq Magnesium Sulfate gm 0.75 gm In Amino Acid 5%-D20w+Lytes* E* 1,000 ml @ 80 mls/hr IV .BY DURATION [facility] Rx#: [id number] Mvi, Adult No.4 with Vit 160 K 10 ml Trace (Conc-1Ml/ Dose) 1 ml Sodium Acetate 20 meq Potassium Chloride 20 meq Magnesium Sulfate gm 0.75 gm In Amino Acid 5%-D20w+Lytes* E* 1,000 ml @ 80 mls/hr IV .BY DURATION [facility] Rx#: [id number] Potassium Chloride 20 meq 100 In Water For Injection 1 100ml.bag @ 50 mls/hr IVPB ONCE ONE Rx#: [id number] Sodium Acetate 20 meq 320 Potassium Chloride 20 meq Magnesium Sulfate gm 0. 75 gm In Amino Acid 5%- D20w+Lytes*E* 1,000 ml @ 80 mls/hr IV .BY DURATION [facility] Rx#:[id number] Sodium Acetate 20 meq 1021.5 Potassium Chloride 20 meq Magnesium Sulfate gm 0. 75 gm In Amino Acid 5%- D20w+Lytes*E* 1,000 ml @ 80 mls/hr IV .BY DURATION [facility] Rx#:[id number] Blood Product 620 Rc As-1 Unit 310 [id number] Rc As-1 Unit 310 [id number] Output: Urine 039 249 3262 Male - External 1100 Stool 150 80 Other: Voiding Method Indwelling Catheter Indwelling Catheter Indwelling Catheter - Labs CBC & Chem 7: 01/23/21 04:33 01/23/21 04:33 Labs: Abnormal Lab Results - Last 24 Hours (Table) 01/22/21 01/22/21 01/23/21 Range/Units 16:40 17:49 00:20 WBC 18.6 H (3.8-10.6) k/uL RBC 3.25 L (4.30-5.90) m/uL Hgb 9.7 L D (13.0-17.5) gm/dL Hct 30.7 L (39.0-53.0) % RDW 15.7 H (11.5-15.5) % Neutrophils # (1.3-7.7) k/uL Lymphocytes # (1.0-4.8) k/uL Monocytes # (0-1.0) k/uL Sodium (137-145) mmol/L BUN (9-20) mg/dL Glucose (74-99) mg/dL POC Glucose (mg/dL) 101 H 145 H (75-99) mg/dL Total Bilirubin (0.2-1.3) mg/dL Total Protein (6.3-8.2) g/dL Albumin (3.5-5.0) g/dL 01/23/21 01/23/21 01/23/21 Range/Units 04:33 04:33 06:47 WBC 15.9 H (3.8-10.6) k/uL RBC 3.30 L (4.30-5.90) m/uL Hgb 10.0 L (13.0-17.5) gm/dL Hct 31.9 L (39.0-53.0) % RDW (11.5-15.5) % Neutrophils # 13.4 H (1.3-7.7) k/uL Lymphocytes # 0.7 L (1.0-4.8) k/uL Monocytes # 1.1 H (0-1.0) k/uL Sodium 136 L (137-145) mmol/L BUN 38 H (9-20) mg/dL Glucose 139 H (74-99) mg/dL POC Glucose (mg/dL) 139 H (75-99) mg/dL Total Bilirubin 1.4 H (0.2-1.3) mg/dL Total Protein 5.8 L (6.3-8.2) g/dL Albumin 2.3 L (3.5-5.0) g/dL 01/23/21 Range/Units 12:38 WBC (3.8-10.6) k/uL RBC (4.30-5.90) m/uL Hgb (13.0-17.5) gm/dL Hct (39.0-53.0) % RDW (11.5-15.5) % Neutrophils # (1.3-7.7) k/uL Lymphocytes # (1.0-4.8) k/uL Monocytes # (0-1.0) k/uL Sodium (137-145) mmol/L BUN (9-20) mg/dL Glucose (74-99) mg/dL POC Glucose (mg/dL) 162 H (75-99) mg/dL Total Bilirubin (0.2-1.3) mg/dL Total Protein (6.3-8.2) g/dL Albumin (3.5-5.0) g/dL Microbiology - Last 24 Hours (Table) 01/22/21 10:30 Gram Stain - Preliminary Sputum Sputum Culture - Preliminary Gram Neg Bacilli 01/16/21 11:46 Blood Culture - Final Blood No Growth after 144 hours 01/16/21 11:31 Blood Culture - Final Blood No Growth after 144 hours
[2021-01-23] MEDS: HEPARIN SODIUM 1,000 UN/ML (10ML VL) IV PRN (16:27)
--- NOTE | 2021-01-23 17:31 | PN ---
PROGRESS NOTE DATE OF SERVICE: 01/23/2021. HISTORY OF PRESENT ILLNESS: This 65-year-old gentleman who was admitted with severe infection, necrotic lesion of the left lower leg, also had multiple respiratory cardiac issues also. Patient has atrial fibrillation with fast ventricular rate. The patient has also had change in mental status. The patient also had bilateral lung issues, possibly aspiration pneumonia. The patient also receiving TPN at this time. The patient also had atrial fibrillation and Cardizem drip was added to amiodarone drip this morning. The patient is slightly more alert compared to yesterday at this time. The most recent chest x-ray which was done today and reviewed personally by me showed extensive bilateral lesions suggestive of aspiration pneumonia. Multiple consultants are following the patient during hospitalization. Dr. Pollack and vascular team is planning surgery once the patient's respiratory status is stable. PAST MEDICAL HISTORY: Reviewed. REVIEW OF SYSTEMS: Cardiovascular: As mentioned earlier. Respiratory: As mentioned earlier. GI: As mentioned earlier. : As mentioned earlier. Nervous system: Diffusely weakness. CURRENT MEDICATIONS: Reviewed and include: Cardizem and amiodarone drip. Tylenol, DuoNeb, Norvasc, aspirin, Symbicort, TPN, Neurontin. Doses reviewed and other medication reviewed. PHYSICAL EXAMINATION: Patient is alert, oriented x2. Pulse is 112, irregular. Blood pressure is 135/79, respiration 18, temperature 98.8, pulse ox 98% on 15 L non-rebreather. HEENT: Conjunctivae normal. Neck: No JVD. Cardiovascular: S1, S2 muffled. Respirations: Diminished in the bases. A few scattered rhonchi and crackles. Abdomen: Soft, nontender. No mass palpable. Legs: No edema. No swelling. Nervous system: Higher functions as mentioned earlier. Moves all four limbs. No focal motor or sensory deficits. Skin: No ulcer, rashes or bleeding. Joints: No active deforming arthropathy. LABS: WBC 15.9, hemoglobin is 10, sodium 136, potassium 4.5. ASSESSMENT: 1. Severe infection, necrotic lesion of the left lower leg, possibly ischemic in origin with acute severe sepsis, septic shock and hypotension, present on admission. 2. Atrial fibrillation with fast ventricular rate. 3. Change in mental status, acute metabolic encephalopathy. 4. History of bilateral lung lesions, possibly bilateral aspiration pneumonia with acute hypoxic respiratory failure. 5. Vomiting and coffee-ground emesis with possible upper gastrointestinal bleed. 6. Anemia, acute blood loss anemia possibly. 7. Abdominal distention possibly acute small-bowel obstruction versus ileus. 8. Hyponatremia. 9. Hypokalemia. 10.History of recent transmetatarsal amputation as well as femoral bypass surgery 3 weeks ago at [facility] on the left leg. 11.Peripheral vascular disease. 12.History of coronary artery disease. 13.Chronic anemia. 14.Acute kidney injury with acute tubular necrosis. 15.Chronic obstructive pulmonary disease. 16.Severe peripheral vascular disease. 17.Hypertension. 18.Chronic debility. 19.History of protein-calorie malnutrition. 20.Sacral decubitus ulcer stage III. 21.History of nicotine dependence. 22.Gastrointestinal and deep vein thrombosis prophylaxis. 23.Hyponatremia. 24.Hypoalbuminemia with mild protein-calorie malnutrition. 25.Increased WBC. 26.NO CODE, NO CPR, NO VENT. RECOMMENDATIONS AND DISCUSSION: Recommend to continue current management and treatment. Optimize bronchodilator treatment. Continue with amiodarone, increase Cardizem to 10 mg if the rate is not controlled. Repeat labs. Closely follow with multiple consultants. Broad-spectrum IV antibiotics. Prognosis guarded, but as mentioned earlier sensorium is slightly improved at this time. We will continue to monitor. Further recommendations to follow. MMODL / IJN: [id number] /
[2021-01-23 18:12] LABS: Glucose,Whole Blood 208 mg/dL (75-99)
[2021-01-23] MEDS: INSULIN ASPART (NovoLOG) 100 UNIT/ML VIAL SQ SCH (18:45)
[2021-01-23] MEDS: AMIODARONE 200 MG TAB PO SCH (20:52)
[2021-01-24 00:20] LABS: Glucose,Whole Blood 148 mg/dL (75-99)
[2021-01-24] MEDS: INSULIN ASPART (NovoLOG) 100 UNIT/ML VIAL SQ SCH ×4 (00:56→18:15)
[2021-01-24] MEDS: DILTIAZEM 125 MG in SODIUM CHLORIDE 0.9% 100 ML IV SCH (02:06)
[2021-01-24] MEDS: HEPARIN SOD,PORK IN 0.45% NACL 25,000 UNIT in 0.45% NACL 1 250ML.BAG IV SCH (02:06)
[2021-01-24] MEDS: HYDROmorphone 0.5 MG/0.5 ML SYRINGE IVP PRN ×5 (02:07→20:06)
[2021-01-24] MEDS: PIPERACILLIN-TAZOBACTAM 3.375 GM in SODIUM CHLORIDE 0.9% 100 ML IVPB SCH ×2 (03:04→10:29)
[2021-01-24 05:32] LABS: Ionized Calcium 4.8 mg/dL (4.5-5.3)
[2021-01-24 05:42] LABS: Calcium 8.7 mg/dL (8.4-10.2); Magnesium 2.1 mg/dL (1.6-2.3); Potassium 3.4 mmol/L (3.5-5.1)
[2021-01-24 05:58] LABS: Glucose,Whole Blood 144 mg/dL (75-99)
[2021-01-24] MEDS: MORPHINE SULFATE IR 15 MG TABLET PO SCH ×5 (06:05→23:05)
[2021-01-24] MEDS: HEPARIN SODIUM 1,000 UN/ML (10ML VL) IV PRN (07:49)
[2021-01-24] MEDS: IPRATROPIUM-ALBUTEROL 3 ML NEB INHALATION SCH ×4 (08:10→20:06)
[2021-01-24] MEDS: SYMBICORT 80-4.5 MCG INHALER INHALATION SCH ×2 (08:10→20:06)
--- NOTE | 2021-01-24 08:54 | P.PN ---
Subjective Progress Note Date: 01/24/21 Patient seen and examined. Relatively stable overnight. Has been changed over to oral medications as he tolerated his swallow eval for honey thick. He is still utilizing 100% nonrebreather with 15 L. No changes in his lower extremity pain. Objective - Vital Signs Vital signs: Vital Signs Temp 97.7 F 01/24/21 04:00 Pulse 93 01/24/21 07:00 Resp 18 01/24/21 07:00 BP 105/48 01/24/21 07:00 Pulse Ox 99 01/24/21 07:00 Intake & Output 01/23/21 01/24/21 01/24/21 18:59 06:59 18:59 Intake Total 2483.415 1351.618 63.284 Output Total 4180 2525 Balance -1696.585 -1173.382 63.284 Weight 54.2 kg Intake: IV 472 .9NS 120 Fat Emulsion 20% 250 ml 252 In Empty Bag 1 bag @ 21 mls/hr IV MoWeFr [facility] Rx#: [id number] Piperacillin-Tazobactam 3 100 .375 gm In Sodium Chloride 0.9% 100 ml @ 25 mls/hr IVPB Q8H [facility] Rx#: [id number] Intake, IV Titration 2011.415 1351.618 63.284 Amount Amiodarone 450 mg In 250 Dextrose 5% in Water 250 ml @ 0.5 MG/MIN 16.667 mls/hr IV .Q15H [facility] Rx#: [id number] Diltiazem 125 mg In 90.0 Sodium Chloride 0.9% 100 ml @ 7.5 MG/HR 7.5 mls/hr IV .[id number] [facility] Rx#: [id number] Heparin Sod,Pork in 0.45% 99.915 96.285 63.284 NaCl 25,000 unit In 0.45 % NaCl 1 250ml.bag @ 12 UNITS/KG/HR 7.86 mls/hr IV .Q24H [facility] Rx#: [id number] Mvi, Adult No.4 with Vit 480 K 10 ml Trace (Conc-1Ml/ Dose) 1 ml Sodium Acetate 20 meq Potassium Chloride 20 meq Magnesium Sulfate gm 0.75 gm In Amino Acid 5%-D20w+Lytes* E* 1,000 ml @ 80 mls/hr IV .BY DURATION [facility] Rx#: [id number] Sodium Acetate 20 meq 320 Potassium Chloride 20 meq Magnesium Sulfate gm 0. 75 gm In Amino Acid 5%- D20w+Lytes*E* 1,000 ml @ 80 mls/hr IV .BY DURATION [facility] Rx#:[id number] Sodium Acetate 20 meq 1021.5 1005.333 Potassium Chloride 20 meq Magnesium Sulfate gm 0. 75 gm In Amino Acid 5%- D20w+Lytes*E* 1,000 ml @ 80 mls/hr IV .BY DURATION [facility] Rx#:[id number] Output: Urine 4180 2325 Male - External 1100 Stool 200 Other: Voiding Method Indwelling Catheter Indwelling Catheter - Exam Gen. is a pleasant male in moderate respiratory distress however stable at this time. HEENT is normocephalic. Heart is irregularly irregular. Lungs with coarse breath sounds bilaterally and diminished. Abdomen is soft, nontender nondistended. Functioning ostomy. Extremities with no clubbing. Left lower extremity dry gangrene as previous. - Labs CBC & Chem 7: 01/23/21 04:33 01/24/21 05:08 Labs: Abnormal Lab Results - Last 24 Hours (Table) 01/23/21 01/23/21 01/23/21 Range/Units 12:38 15:27 18:10 APTT 33.0 H (22.0-30.0) sec Potassium (3.5-5.1) mmol/L Carbon Dioxide (22-30) mmol/L BUN (9-20) mg/dL Glucose (74-99) mg/dL POC Glucose (mg/dL) 162 H 208 H (75-99) mg/dL 01/23/21 01/24/21 01/24/21 Range/Units 22:31 00:19 05:07 APTT 36.2 H 35.4 H (22.0-30.0) sec Potassium (3.5-5.1) mmol/L Carbon Dioxide (22-30) mmol/L BUN (9-20) mg/dL Glucose (74-99) mg/dL POC Glucose (mg/dL) 148 H (75-99) mg/dL 01/24/21 01/24/21 Range/Units 05:08 05:46 APTT (22.0-30.0) sec Potassium 3.4 L (3.5-5.1) mmol/L Carbon Dioxide 34 H (22-30) mmol/L BUN 44 H (9-20) mg/dL Glucose 173 H (74-99) mg/dL POC Glucose (mg/dL) 144 H (75-99) mg/dL Microbiology - Last 24 Hours (Table) 01/22/21 10:30 Gram Stain - Preliminary Sputum Sputum Culture - Preliminary Gram Neg Bacilli Assessment and Plan Assessment: Left lower extremity dry gangrene Failed left lower extremity bypass Acute hypoxic respiratory failure on O2, positive sputum cultures Leukocytosis, improving Small bowel obstruction, improving Plan: Given the patient's overall picture, there is no urgency to his above-knee amputation. Given the high risk of this procedure, we will await significant improvement of his respiratory status. Await pulmonology input. Procedure to be under spinal. Anesthesia evaluation prior to
[2021-01-24] MEDS ORDERED: CHLORHEXIDINE GLUCONATE 15 ML CUP MUCOUS MEM SCH (09:00)
[2021-01-24] MEDS: POTASSIUM CHLORIDE 20 MEQ in WATER FOR INJECTION 1 100ML.BAG IVPB SCH ×2 (09:17→12:40)
[2021-01-24] MEDS: PANTOPRAZOLE 40 MG/10 ML VIAL IVP SCH ×2 (09:17→20:06)
[2021-01-24] MEDS: FUROSEMIDE 10 MG/ML 4 ML VIAL IV SCH ×2 (09:18→20:06)
[2021-01-24] MEDS: methylPREDNISolone SOD SUCCI 40 MG/ML 1 ML VIAL IV SCH ×2 (09:18→20:06)
[2021-01-24] MEDS: METOPROLOL TARTRATE 50 MG TAB PO SCH ×2 (09:18→20:06)
[2021-01-24] MEDS: AMIODARONE 200 MG TAB PO SCH ×2 (09:18→20:06)
[2021-01-24] MEDS: GABAPENTIN 300 MG CAP PO SCH ×3 (09:19→23:05)
[2021-01-24] MEDS: ASPIRIN 300 MG SUPP RECTAL SCH (09:19)
--- NOTE | 2021-01-24 09:30 | PN ---
PROGRESS NOTE DATE OF SERVICE: 01/23/2021 REASON FOR FOLLOWUP: 1. Aspiration pneumonia. 2. Left foot necrotic wound. INTERVAL HISTORY: The patient is afebrile. The patient is breathing slightly comfortably. Still having a cough; not able to cough up any sputum, though. No nausea, vomiting, diarrhea or any other changes reported by the nursing staff. PHYSICAL EXAMINATION: Blood pressure is 119/65, pulse of 90, temperature 98. He is 100% on non-rebreather. General description is an elderly male lying in bed in no distress. Respiratory system: Unlabored breathing, decreased intensity of breath sounds. No wheeze. Heart S1, S2. Regular rate and rhythm. Abdomen soft, no tenderness. Left wound necrotic wound - no worsening redness. LABS: White count is down to 15.9, creatinine is 1.1. DIAGNOSTIC IMPRESSION AND PLAN: Patient with Gram-negative pneumonia. Sputum culture is to be finalized. Covered with Zosyn; to continue to continue while monitoring his clinical course closely. Continue with supportive care. MMODL / IJN: [id number] /
--- NOTE | 2021-01-24 10:39 | PN ---
PROGRESS NOTE Mr. Joaquin is in atrial fibrillation. Rate is much better controlled. Yesterday he was able to pass a swallow test and has also taken oral medications. He developed some bradycardia, and both amiodarone and Cardizem drips were stopped. He is currently on oral beta lula, which we will continue, and also oral amiodarone. Rate is well controlled. Hemodynamically stable. Patient can go ahead with the amputation as planned by Vascular Surgery. Vitals are stable. No JVD. S1-S2 heard normally. Short systolic murmur noted. Lungs reveal improved air entry. Patient is still hypoxic but seems to be holding his own. Abdomen is soft. Lower extremities reveal no new findings. Prognosis remains guarded. We will discontinue IV Cardizem and IV amiodarone and leave him on oral amiodarone and metoprolol. MMODL / IJN: [id number] /
--- NOTE | 2021-01-24 11:13 | P.PN ---
Subjective Progress Note Date: 01/24/21 CHIEF COMPLAINT: Fever HISTORY OF PRESENT ILLNESS: Patient remains in the ICU. Surgical service is following his small bowel obstruction. Patient's ostomy is functioning. Patient lying in bed comfortably. No complaints of abdominal pain reported. Patient passed his modified barium swallow eval. He is on a honey thickened full liquid diet. He is only taking in small amounts. Patient is being niraj ngraded out of the ICU today. Afebrile. Currently on a nonrebreather. Potassium 3.4 and being replaced. Patient seen and examined with Dr. Medina PHYSICAL EXAM: VITAL SIGNS: Reviewed. GENERAL: Well-developed in no acute distress. HEENT: No sclera icterus. Extraocular movements grossly intact. Moist buccal mucosa. Head is atraumatic, normocephalic. ABDOMEN: Soft. Nondistended Nontender. ileostomy with stool NEUROLOGIC: Alert and oriented. Cranial nerves II through XII grossly intact. ASSESSMENT: 1. Small bowel obstruction improved 2. Recurrent small bowel obstruction and underlying SMA syndrome PLAN: -Continue conservative management -No plans for surgical intervention -Continue supportive care -Continue full liquid diet -Continue TPN for nutrition support [employer] note has been reviewed by physician. Signing provider agrees with the documented findings, assessment, and plan of care. Objective - Vital Signs Vital signs: Vital Signs Temp 99 F 01/24/21 08:00 Pulse 112 H 01/24/21 10:00 Resp 14 01/24/21 10:00 BP 115/62 01/24/21 10:00 Pulse Ox 100 01/24/21 10:00 Intake & Output 01/23/21 01/24/21 01/24/21 18:59 06:59 18:59 Intake Total 2482.415 1351.618 103.284 Output Total 4180 2525 85 Balance -1696.585 -1173.382 18.284 Weight 54.2 kg Intake: IV 472 40 .9NS 120 40 Fat Emulsion 20% 250 ml 252 In Empty Bag 1 bag @ 21 mls/hr IV MoWeFr [facility] Rx#: [id number] Piperacillin-Tazobactam 3 100 .375 gm In Sodium Chloride 0.9% 100 ml @ 25 mls/hr IVPB Q8H [facility] Rx#: [id number] Intake, IV Titration 2011.415 1351.618 63.284 Amount Amiodarone 450 mg In 250 Dextrose 5% in Water 250 ml @ 0.5 MG/MIN 16.667 mls/hr IV .Q15H [facility] Rx#: [id number] Diltiazem 125 mg In 90.0 Sodium Chloride 0.9% 100 ml @ 7.5 MG/HR 7.5 mls/hr IV .[id number] [facility] Rx#: [id number] Heparin Sod,Pork in 0.45% 99.915 96.285 63.284 NaCl 25,000 unit In 0.45 % NaCl 1 250ml.bag @ 12 UNITS/KG/HR 7.86 mls/hr IV .Q24H [facility] Rx#: [id number] Mvi, Adult No.4 with Vit 480 K 10 ml Trace (Conc-1Ml/ Dose) 1 ml Sodium Acetate 20 meq Potassium Chloride 20 meq Magnesium Sulfate gm 0.75 gm In Amino Acid 5%-D20w+Lytes* E* 1,000 ml @ 80 mls/hr IV .BY DURATION [facility] Rx#: [id number] Sodium Acetate 20 meq 320 Potassium Chloride 20 meq Magnesium Sulfate gm 0. 75 gm In Amino Acid 5%- D20w+Lytes*E* 1,000 ml @ 80 mls/hr IV .BY DURATION [facility] Rx#:[id number] Sodium Acetate 20 meq 1021.5 1005.333 Potassium Chloride 20 meq Magnesium Sulfate gm 0. 75 gm In Amino Acid 5%- D20w+Lytes*E* 1,000 ml @ 80 mls/hr IV .BY DURATION [facility] Rx#:[id number] Output: Urine 4180 2325 85 Male - External 1100 Stool 200 Other: Voiding Method Indwelling Catheter Indwelling Catheter Indwelling Catheter - Labs CBC & Chem 7: 01/23/21 04:33 01/24/21 05:08 Labs: Abnormal Lab Results - Last 24 Hours (Table) 01/23/21 01/23/21 01/23/21 Range/Units 12:38 15:27 18:10 APTT 33.0 H (22.0-30.0) sec Potassium (3.5-5.1) mmol/L Carbon Dioxide (22-30) mmol/L BUN (9-20) mg/dL Glucose (74-99) mg/dL POC Glucose (mg/dL) 162 H 208 H (75-99) mg/dL 01/23/21 01/24/21 01/24/21 Range/Units 22:31 00:19 05:07 APTT 36.2 H 35.4 H (22.0-30.0) sec Potassium (3.5-5.1) mmol/L Carbon Dioxide (22-30) mmol/L BUN (9-20) mg/dL Glucose (74-99) mg/dL POC Glucose (mg/dL) 148 H (75-99) mg/dL 01/24/21 01/24/21 Range/Units 05:08 05:46 APTT (22.0-30.0) sec Potassium 3.4 L (3.5-5.1) mmol/L Carbon Dioxide 34 H (22-30) mmol/L BUN 44 H (9-20) mg/dL Glucose 173 H (74-99) mg/dL POC Glucose (mg/dL) 144 H (75-99) mg/dL Microbiology - Last 24 Hours (Table) 01/22/21 10:30 Gram Stain - Preliminary Sputum Sputum Culture - Preliminary Gram Neg Bacilli
[2021-01-24 11:20] LABS: HCT 30.4 % (39.0-53.0); MCH 30.8 pg (25.0-35.0); MCHC 32.8 g/dL (31.0-37.0); MCV 93.9 fL (80.0-100.0); Mean Platelet Volume 8.5; Platelet Count 360 k/uL (150-450); RBC 3.24 m/uL (4.30-5.90); RDW 15.6 % (11.5-15.5)
[2021-01-24] MEDS: MULTIVITAMINS, THERA 1 EACH TAB PO SCH (12:06)
[2021-01-24] MEDS: DOCUSATE 100 MG CAP PO SCH (12:06)
[2021-01-24 12:41] LABS: Glucose,Whole Blood 162 mg/dL (75-99)
--- NOTE | 2021-01-24 13:53 | P.PN ---
Subjective Progress Note Date: 01/24/21 Principal diagnosis: Recurrent small bowel obstruction possible SMA syndrome. On today's evaluation on 01/18/2021 patient seen in follow-up in the intensive care unit, she is awake and alert, in no acute distress, is currently down to 6 L of oxygen his pulse ox is 90-91%, he does have a very congested cough, he is bringing up jama and yellow colored phlegm. No hemoptysis, she is hemodynamically significantly more stable compared to 48 hours ago. She is in sinus mechanism with a rate of 94, he is not on any vasopressor support, he is on amiodarone at 0.5 mg/m, and patient has converted to sinus mechanism yesterday in which he remained. He was started on TPN at 32 ML per hour and this is being titrated per dietary recommendations, his maintenance IV fluids 0.9 normal saline at a rate of 100 ML per hour, NG tube remains in place with minimal output in the last 24 hours, abdomen is significantly less distended, nontender, and his colostomy is producing greenish colored stool, but no significant amount of gas. He remains on Zosyn, patient is also on heparin infusion for anti-coagulation. His chest x-ray yesterday showed bilateral infiltrates and pleural effusion. CBC is pending right now, BMP has resulted in showing sodium of 136, potassium is 3.1, chloride is 110, CO2 is 17, BUN of 23 creatinine is 1.43 and his renal function is improving, LFTs are within normal limits. Urinalysis showed possibility of underlying urinary tract infection with greater than 182 leukocytes, moderate bacteria, urine culture has shown no growth, blood cultures have been negative as well. 01/19/2021, patient's NG tube is removed and the patient was offered some follow liquid diet. There is some output in the colostomy bag. Abdomen is nondistended. Bowel sounds are still hypoactive and they're present. General surgeries on the case. No significant abdominal pain. The left foot is obviously necrotic and the patient had dry gangrene and passively were scheduling this patient sometime next week to undergo an amputation of the left lower extremity. Otherwise, his white cell count remains elevated at 20.7 although this is improving. Hemoglobin is at 8.2. Electrolytes show improvement in the renal function and creatinine is down to 1.32. The patient has a component of non-anion gap metabolic acidosis. He Is at 7 with a serum bicarb of 19. His arousable and awake. He is on TPN for nutritional support. He is on oxygen at 6 L per minute nasal cannula. He remains on empiric antibiotic coverage with IV Zosyn. Cardiac rhythm is currently sinus. The luis argueta remains on IV heparin. Nevertheless, the repeat chest x-ray was done today showed increase in bilateral pulmonary infiltrates and interstitial edema and developed of consolidation of the left upper lobe along with some worsening in the right-sided pleural effusion. Note that his echocardiogram showed an ejection fraction of 40% without any significant valvular abnormalities. 01/20/2021, the patient is awake and alert and communicating. He has a congested cough. Unable to bring up much of sputum. Nevertheless, he seems to be comfortable and his breathing is nonlabored and he is currently on oxygen at 8 L per minute with a saturation above 90%. His chest x-ray showing diffuse ellen ateral pulmonary infiltrates more so in the upper lobes and bilateral pleural effusions. He was given a dose of Lasix yesterday and his IV fluids was cut down to KVO. Following his Lasix, the patient showed adequate diuresis with without approximately 2.9 L of a negative fluid balance over the past 24 hours. In terms of his feeding, the patient is currently having limited amount of oral intake. He has some functionality in his colostomy bag. His bowel sounds are sluggish. No abdominal pain or distention. NG tube has been removed. No nausea or emesis. We have supplemented his nutrition with TPN for nutritional support and the patient is currently receiving TPN at the rate of 80 mL an hour. His IV fluids are otherwise at KVO. In terms of his blood work and electrolytes, the patient's PTT is therapeutic while being on IV heparin. His creatinine is down to 1.38 which is improved compared to yesterday. The rest of the electrodes are normal. White cell count remains elevated at 20.8 hemoglobin of 8.6. He is having bouts of 80 fibrillation still. He goes into A. fib paroxysmal along sun sinus rhythm. He is currently on IV heparin as mentioned. He is also on amiodarone which was switched to oral and the patient is currently on oral amiodarone at a dose of 400 mg by mouth twice a day. The patient is also on metoprolol 100 mg every 8 hours. He is on Symbicort as maintenance regarding his COPD and he needs to be started on DuoNeb nebulized treatments around the clock. An additional dose of Lasix will be given to him today. His previous echocardiogram showed an ejection fraction of around 40%. The patient is being followed up with vascular surgery. He has a dry gangrene of the left foot and the patient will need a left lower extremity amputation [id number] probably early next week once his condition is more stable. Reevaluated today on 01/21/2021, patient remains in the ICU, he is on 15 L high flow nasal cannula, he shouldn't is awake, alert, communicating, does not seem to be in any distress, chest x-ray continues to show bilateral pulmonary inf iltrates and bilateral pleural effusions. Remains on diuretics, antibiotics, IV fluid has been cut down to KVO. Patient is diuresing well. And he has a functional colostomy bag. He shouldn't was seen by vascular surgery, and he is being considered for left lower extremity below-knee amputation. Respiratory BC count is 21.5 hemoglobin is 9.1 electrolytes are normal BUN is 34 creatinine 1.36. Asked x-ray clearly shows extensive bilateral infiltrates and bilateral pleural effusions. A shunt remains on TPN, remains on bronchodilators, remains on amiodarone, remains on heparin, empirically on Zosyn, and he is also on bronchodilators On 01/22/2021 patient seen in follow-up in the intensive care unit, his lipid 3. Today's exam, but easily arousable, he is on 100% nonrebreather mask, his pulse ox is 97-98%. He is afebrile, he is not requiring any vasopressor support. He is receiving TPN at 80 ML per hour, and she is on lipids on Thursday schedule, he remains on heparin infusion per weight-based protocol. His last chest x-ray yesterday shows COPD with bilateral infiltrates and pleural effusion related to aspiration pneumonia, and possibility of CHF is not complet mabel excluded. Today's labs have been reviewed white count is relatively stable, at 22.3, his hemoglobin is down to 6.0 from 9.1 on yesterday's labs, and patient will receive 2 units of packed red blood cells, his platelet count is 404, his PTT is 50.6, sodium is 134, the respiratory infection lites were within normal limits, BUN is 37, creatinine 1.35, he was retested for COVID-19 with a PCR test was negative, it gastric or cold blood was negative. Surgery is following in regards to small bowel obstruction related to SMA syndrome, his ostomy is functioning, he does not complain of any abdominal pain, bowel sounds are present. No fever or chills. Hemodynamically patient has remained in sinus mechanism, he is not able to take anything by mouth currently, he is awaiting swallow evaluation today, he remains on beta blockers and oral amiodarone, there has been no recurrence of atrial fibrillation. His lower extremities reveal diminished pulses, patient is being considered for left [id number] amputation by vascular surgery pending further improvement of patient's respiratory status. The patient is seen today 01/23/2021 in follow-up in the intensive care unit. He is currently resting fairly comfortably in bed. He is awake. Alert. Still requiring 15 L for 100% nonrebreather mask. He's been intolerant to nasal cannula. He remains in atrial fibrillation. He is on a heparin drip. He remains on amiodarone at 0.5 mg/m, Cardizem drip at 7.5 mg per hour. He's to be initiated on aspirin as well. Swallow evaluation is pending. Chest x-ray continues to show bilateral infiltrates greater on the left lung suspected aspiration pneumonia. Also evidence of interstitial edema. Hemoglobin yesterday was down as low as 6.0. He is status post 2 units of packed red blood cells. Current hemoglobin 10.0. White count 15.9. Sodium 136. Potassium 4.5. Creatinine 1.19. Glucose 139. Zhang virus not detected. Gastric occult blood negative. He remains on Zosyn, bronchodilators, IV Solu-Medrol. He is on IV diuretics. Being nourished with TPN and lipids. Ostomy is functioning. Left below the knee amputation pending. Reevaluated today on 01/24/2021, patient remains in the ICU, he is on a nonrebreather mask, remains on heparin drip, remains on amiodarone, patient has not demonstrated any significant loom changer the last few days. He is basically about the same. Continues to have significant airspace disease and possibly some component of interstitial edema and pneumonia in both lungs. Remains on antibiotics bronchodilators steroids is also on diuretics, patient is receiving TPN, and his ostomy seems to be functional. Discussed his condition with [facility] surgery today, we will postpone [id number] amputation for later, there is no urgency to perform the surgery anytime soon. His pulmonary status is to be optimized a bit further. WBC count today is 23.0 hemoglobin is 10 his electrolytes are normal renal profile showed a BUN of 44 creatinine 1.24. Objective - Vital Signs Vital signs: Vital Signs Temp 99 F 01/24/21 08:00 Pulse 112 H 01/24/21 10:00 Resp 14 01/24/21 10:00 BP 115/62 01/24/21 10:00 Pulse Ox 100 01/24/21 10:00 Intake & Output 01/23/21 01/24/21 01/24/21 18:59 06:59 18:59 Intake Total 2483.415 1351.618 123.284 Output Total 4180 2525 985 Balance -1696.585 -1173.382 -861.716 Weight 54.2 kg Intake: IV 472 60 .9NS 120 60 Fat Emulsion 20% 250 ml 252 In Empty Bag 1 bag @ 21 mls/hr IV MoWeFr [facility] Rx#: [id number] Piperacillin-Tazobactam 3 100 .375 gm In Sodium Chloride 0.9% 100 ml @ 25 mls/hr IVPB Q8H [facility] Rx#: [id number] Intake, IV Titration 2011.415 1351.618 63.284 Amount Amiodarone 450 mg In 250 Dextrose 5% in Water 250 ml @ 0.5 MG/MIN 16.667 mls/hr IV .Q15H [facility] Rx#: [id number] Diltiazem 125 mg In 90.0 Sodium Chloride 0.9% 100 ml @ 7.5 MG/HR 7.5 mls/hr IV .[id number] [facility] Rx#: [id number] Heparin Sod,Pork in 0.45% 99.915 96.285 63.284 NaCl 25,000 unit In 0.45 % NaCl 1 250ml.bag @ 12 UNITS/KG/HR 7.86 mls/hr IV .Q24H [facility] Rx#: [id number] Mvi, Adult No.4 with Vit 480 K 10 ml Trace (Conc-1Ml/ Dose) 1 ml Sodium Acetate 20 meq Potassium Chloride 20 meq Magnesium Sulfate gm 0.75 gm In Amino Acid 5%-D20w+Lytes* E* 1,000 ml @ 80 mls/hr IV .BY DURATION [facility] Rx#: [id number] Sodium Acetate 20 meq 320 Potassium Chloride 20 meq Magnesium Sulfate gm 0. 75 gm In Amino Acid 5%- D20w+Lytes*E* 1,000 ml @ 80 mls/hr IV .BY DURATION [facility] Rx#:[id number] Sodium Acetate 20 meq 1021.5 1005.333 Potassium Chloride 20 meq Magnesium Sulfate gm 0. 75 gm In Amino Acid 5%- D20w+Lytes*E* 1,000 ml @ 80 mls/hr IV .BY DURATION [facility] Rx#:[id number] Output: Urine 4180 2325 985 Male - External 1100 Stool 200 Other: Voiding Method Indwelling Catheter Indwelling Catheter Indwelling Catheter - Exam Physical Exam revealed a 65-year-old white male, frail looking, chronically ill, on non-rebreather mask. Head: Atraumatic, normocephalic. HEENT:[Neck is supple.] [No neck masses.] [No thyromegaly.] [No JVD.] Chest: [Symmetrical chest expansion, crackles at the bases bilaterally. Cardiac Exam: Irregular irregular rhythm, 2/6 systolic murmur throughout the precordium. Abdomen: [Soft, nontender, no megaly, no rebound, no guarding, normal bowel sounds.] Colostomy bag is noted in the left lower quadrant, seems to be functional. Extremities: [the patient has scars of previous vascular bypass surgery and the nolberto are present in the left inguinal area, left medial thigh and left foot just superior to the malleolus. There is some wetness and drainage coming from the foot incision. There is also dry gangrene at the site of the metatarsal or transmetatarsal amputation.There are no Doppler signals in the dorsalis pedis and radial tibialis. There is obviously guarded and the popliteal area and there is palpable pulses in the femoral area Neurological Exam: Alert oriented 3 gangrenous focal deficits, however the patient is noted to be extremely slow. And a poor historian. Psychiatric: Normal mood affect and slightly confused. Skin: As noted above under extremities. - Labs CBC & Chem 7: 01/24/21 11:05 01/24/21 05:08 Labs: Abnormal Lab Results - Last 24 Hours (Table) 01/23/21 01/23/21 01/23/21 Range/Units 15:27 18:10 22:31 WBC (3.8-10.6) k/uL RBC (4.30-5.90) m/uL Hgb (13.0-17.5) gm/dL Hct (39.0-53.0) % RDW (11.5-15.5) % APTT 33.0 H 36.2 H (22.0-30.0) sec Potassium (3.5-5.1) mmol/L Carbon Dioxide (22-30) mmol/L BUN (9-20) mg/dL Glucose (74-99) mg/dL POC Glucose (mg/dL) 208 H (75-99) mg/dL 01/24/21 01/24/21 01/24/21 Range/Units 00:19 05:07 05:08 WBC (3.8-10.6) k/uL RBC (4.30-5.90) m/uL Hgb (13.0-17.5) gm/dL Hct (39.0-53.0) % RDW (11.5-15.5) % APTT 35.4 H (22.0-30.0) sec Potassium 3.4 L (3.5-5.1) mmol/L Carbon Dioxide 34 H (22-30) mmol/L BUN 44 H (9-20) mg/dL Glucose 173 H (74-99) mg/dL POC Glucose (mg/dL) 148 H (75-99) mg/dL 01/24/21 01/24/21 01/24/21 Range/Units 05:46 11:05 12:38 WBC 23.0 H (3.8-10.6) k/uL RBC 3.24 L (4.30-5.90) m/uL Hgb 10.0 L (13.0-17.5) gm/dL Hct 30.4 L (39.0-53.0) % RDW 15.6 H (11.5-15.5) % APTT (22.0-30.0) sec Potassium (3.5-5.1) mmol/L Carbon Dioxide (22-30) mmol/L BUN (9-20) mg/dL Glucose (74-99) mg/dL POC Glucose (mg/dL) 144 H 162 H (75-99) mg/dL Microbiology - Last 24 Hours (Table) 01/22/21 10:30 Gram Stain - Preliminary Sputum Sputum Culture - Preliminary Gram Neg Bacilli Assessment and Plan Assessment: Impression: Recurrent small bowel obstruction possible SMA syndrome. Presently asymptomatic. Patient has a functional colostomy in place. Hypotension, possibly secondary to sepsis. Leukocytosis secondary to sepsis. Acute kidney injury, improving. Acute hypoxic respiratory failure with possible aspiration pneumonia and bilateral pleural effusions, possible interstitial edema remains on antibiotics and diuretics. Severe peripheral vessel occlusive disease affecting left lower extremity pa tient may require left below-knee amputation. Coronary artery disease. Atrial fibrillation with RVR maintained on amiodarone and metoprolol. And on IV heparin. Anterior wall hernia but no strangulation or incarceration. History of underlying COPD. History of diverticulitis and bowel resection with colectomy and diverting colostomy with Maloclm's pouch. History of bladder injury, iatrogenic in nature. History of degenerative joint disease. Severe malnutrition, BMI of 17, severe protein calorie malnutrition at this point. Stage III coccygeal ulcer. Recommendation: Continue antibiotics. Continue bronchodilators. Continue TPN. Continue diuretics. High risk for vascular surgery but he is contraindication as benefits possibly outweigh the risk. Continue to monitor ileostomy output. Monitor renal profile closely. Discussed his condition with vascular surgery on the case. Remains critically ill. We'll continue to follow Time with Patient: Less than 30
--- NOTE | 2021-01-24 15:36 | PN ---
PROGRESS NOTE DATE OF SERVICE: 01/24/2021 This 65-year-old gentleman who was admitted with severe infection, necrotic lesion of the left lower leg also had features of sepsis. The patient has significant respiratory difficulties, including aspiration pneumonia. Patient is on BiPAP. Patient has atrial fibrillation, also. The patient's saturations are improving at this time. Surgery is planning surgery once the respiratory status is stable. Past medical history reviewed. The patient was started on IV steroids, also. REVIEW OF SYSTEMS: CARDIOVASCULAR SYSTEM: No angina. RESPIRATION: As mentioned earlier. GI: As mentioned earlier. : No dysuria. NERVOUS SYSTEM: No numbness, weakness. CURRENT MEDICATIONS: Reviewed. They include Tylenol, DuoNeb, Cordarone, aspirin, Symbicort, Colace, TPN. PHYSICAL EXAMINATION: Patient is alert, oriented x3. Pulse is 94, blood pressure 118/56, respiration 13, temperature 99 degrees, pulse ox 100% on 15 L. HEENT: Conjunctivae normal. NECK: No jugular venous distention. CARDIOVASCULAR: S1, S2 muffled. RESPIRATION: Breath sounds diminished at the bases. A few scattered rhonchi. ABDOMEN: Soft, nontender. NERVOUS SYSTEM: No focal deficit. LABS: WBC 23, hemoglobin is 10, sodium 137, potassium 3.4. ASSESSMENT: 1. Severe left leg infection with necrotic lesions with possible ischemic origin with acute severe sepsis and septic shock and hypotension, present on admission. 2. Atrial fibrillation with fast ventricular rate. 3. Change in mental status, acute metabolic encephalopathy. 4. Bilateral aspiration pneumonia with acute hypoxic respiratory failure. 5. On TPN. 6. Vomiting and coffee-ground emesis with possible upper gastrointestinal bleed. 7. Anemia, blood loss anemia, possibly. 8. Abdominal distention and possible acute small-bowel obstruction versus ileus. 9. Hyponatremia. 10.Hypokalemia. 11.History of recent transmetatarsal amputation as well as femoral bypass surgery 3 weeks ago at [facility] on the left leg. 12.Peripheral vascular disease. 13.History of coronary artery disease. 14.Chronic anemia. 15.Acute kidney injury with acute tubular necrosis. 16.Chronic obstructive pulmonary disease. 17.Severe peripheral vascular disease. 18.Hypertension. 19.Chronic debility. 20.History of protein-calorie malnutrition. 21.Sacral decubitus ulcer, stage III. 22.History of nicotine dependence. 23.GI and DVT prophylaxis. 24.Hyponatremia. 25.Hypoalbuminemia with mild protein-calorie malnutrition. 26.Increased white count. 27.NO CODE, NO CPR, NO VENT. RECOMMENDATIONS AND DISCUSSION: I recommend to continue current medications, continue with symptomatic treatment. Otherwise at this time continue the antibiotics, bronchodilators, steroids. Continue the rest of the medications. Prognosis guarded. Closely follow with multiple consultants. Vascular Surgery and above-knee amputation of the left once the patient is stable. Continue with TPN. Prognosis guarded. Monitor blood sugars closely. The cultures are showing Gram-negative bacilli in the sputum. MMODL / IJN: [id number] /
[2021-01-24] MEDS: 1: MVI, ADULT NO.4 WITH VIT K 10 ML, TRACE (CONC-1ML/DOSE) 1 ML, SODIUM PHOSPHATE 15 MMO IV SCH ×8 (16:57)
[2021-01-24] MEDS: ERTAPENEM 1 GM in SODIUM CHLORIDE 0.9% 50 ML IVPB SCH (16:58)
[2021-01-24 18:15] LABS: Glucose,Whole Blood 123 mg/dL (75-99)
--- NOTE | 2021-01-24 21:48 | PN ---
PROGRESS NOTE DATE OF SERVICE: 01/24/2021 REASON FOR FOLLOWUP: Gram-negative pneumonia. INTERVAL HISTORY: The patient is afebrile. The patient is currently breathing comfortably, down to 3 L nasal cannula. Denies any chest pain. Did have a cough, not bringing up any sputum. No abdominal pain or any worsening pain to the left foot. PHYSICAL EXAMINATION: Blood pressure 129/57, pulse of 74, temperature 97.7. He is 93% on 3 L nasal cannula. General description is an elderly male lying in bed in no distress. Respiratory system: Unlabored breathing, coarse breath sounds bilaterally. No wheeze. Heart S1, S2. Regular rate and rhythm. Abdomen soft, no tenderness. Left no change compared to previous exam. LABS: Hemoglobin is 10, white count 23,000. Sputum finalized with ESBL Klebsiella. DIAGNOSTIC IMPRESSION AND PLAN: 1. Patient with Gram-negative pneumonia, possibly aspiration etiology with the sputum showing ESBL Klebsiella. Antibiotic adjusted to Invanz 1 gram daily. 2. Left foot with ischemic changes. No definite cellulitis. Will be monitored closely. MMODL / IJN: [id number] /
[2021-01-24 23:41] LABS: Glucose,Whole Blood 180 mg/dL (75-99)
[2021-01-25] MEDS: INSULIN ASPART (NovoLOG) 100 UNIT/ML VIAL SQ SCH ×4 (00:19→17:06)
[2021-01-25] MEDS: HYDROmorphone 0.5 MG/0.5 ML SYRINGE IVP PRN ×6 (00:20→20:54)
[2021-01-25] MEDS: HEPARIN SOD,PORK IN 0.45% NACL 25,000 UNIT in 0.45% NACL 1 250ML.BAG IV SCH (01:20)
[2021-01-25 05:16] LABS: Calcium 9.4 mg/dL (8.4-10.2); Magnesium 2.4 mg/dL (1.6-2.3); Phosphorus 3.8 mg/dL (2.5-4.5); Potassium 3.8 mmol/L (3.5-5.1)
[2021-01-25] MEDS ORDERED: POTASSIUM BICARBONATE/CIT AC 20 MEQ TABLET.EFF NG-TUBE SCH (06:00)
[2021-01-25] MEDS: MORPHINE SULFATE IR 15 MG TABLET PO SCH ×4 (06:08→23:12)
[2021-01-25 06:31] LABS: Glucose,Whole Blood 213 mg/dL (75-99)
[2021-01-25] MEDS: 1: MVI, ADULT NO.4 WITH VIT K 10 ML, TRACE (CONC-1ML/DOSE) 1 ML, SODIUM PHOSPHATE 15 MMO IV SCH ×32 (07:09→20:05)
[2021-01-25] MEDS: SYMBICORT 80-4.5 MCG INHALER INHALATION SCH ×3 (08:47→19:50)
[2021-01-25] MEDS: IPRATROPIUM-ALBUTEROL 3 ML NEB INHALATION SCH ×4 (08:47→19:38)
[2021-01-25] MEDS: MULTIVITAMINS, THERA 1 EACH TAB PO SCH (09:34)
[2021-01-25] MEDS: PANTOPRAZOLE 40 MG/10 ML VIAL IVP SCH ×2 (09:44→20:07)
[2021-01-25] MEDS: methylPREDNISolone SOD SUCCI 40 MG/ML 1 ML VIAL IV SCH ×2 (09:44→20:07)
[2021-01-25] MEDS: FUROSEMIDE 10 MG/ML 2 ML VIAL IV SCH ×2 (09:45→20:07)
[2021-01-25] MEDS: METOPROLOL TARTRATE 50 MG TAB PO SCH ×2 (10:01→20:07)
[2021-01-25] MEDS: AMIODARONE 200 MG TAB PO SCH ×2 (10:01→20:07)
[2021-01-25] MEDS: GABAPENTIN 300 MG CAP PO SCH ×3 (10:05→23:12)
--- NOTE | 2021-01-25 10:22 | XR ---
EXAMINATION TYPE: XR chest 1V portable DATE OF EXAM: 01/25/2021 COMPARISON: Chest x-ray 01/23/2021 HISTORY: Abnormal chest x-ray, congestive heart failure, pneumonia TECHNIQUE: Single frontal view of the chest is obtained. FINDINGS: There is improvement in aeration as compared to prior exam. Bibasilar density persists. Ca rdiac mediastinal sweat is stable. Aorta is dense. Central venous catheter shows a stable appearance. No evident pneumothorax. There are overlying artifacts. IMPRESSION: Improvement in aeration, volume status is suspected. Persistent basilar effusions, addit ional follow-up recommended. Pneumonia not excluded.
[2021-01-25] MEDS: DOCUSATE 100 MG CAP PO SCH (10:37)
--- NOTE | 2021-01-25 10:43 | PN ---
PROGRESS NOTE This gentleman is in sinus rhythm. He is doing much better today. Oxygenation is also better. He can have his amputation of left lower extremity which Vascular Surgery is planning. I am recommending that we decrease the Lasix to 20 mg q.12 hours from 40. He is in sinus rhythm, hemodynamically stable. JVD 1 cm. No carotid bruit. S1-S2 heard normally. Short systolic murmur noted. Lungs reveal improved air entry. Abdomen is soft. Lower extremity exam is unchanged. Prognosis remains guarded. MMODL / IJN: [id number] /
[2021-01-25] MEDS: ASPIRIN 300 MG SUPP RECTAL SCH (11:25)
--- NOTE | 2021-01-25 11:49 | P.PN ---
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 On today's evaluation on 01/18/2021 patient seen in follow-up in the intensive care unit, she is awake and alert, in no acute distress, is currently down to 6 L of oxygen his pulse ox is 90-91%, he does have a very congested cough, he is bringing up jama and yellow colored phlegm. No hemoptysis, she is hemodynamically significantly more stable compared to 48 hours ago. She is in sinus mechanism with a rate of 94, he is not on any vasopressor support, he is on amiodarone at 0.5 mg/m, and patient has converted to sinus mechanism yesterday in which he remained. He was started on TPN at 32 ML per hour and this is being titrated per dietary recommendations, his maintenance IV fluids 0.9 normal saline at a rate of 100 ML per hour, NG tube remains in place with minimal output in the last 24 hours, abdomen is significantly less distended, nontender, and his colostomy is producing greenish colored stool, but no significant amount of gas. He remains on Zosyn, patient is also on heparin infusion for anti-coagulation. His chest x-ray yesterday showed bilateral infiltrates and pleural effusion. CBC is pending right now, BMP has resulted in showing sodium of 136, potassium is 3.1, chloride is 110, CO2 is 17, BUN of 23 creatinine is 1.43 and his renal function is improving, LFTs are within normal limits. Urinalysis showed possibility of underlying urinary tract infection with greater than 182 leukocytes, moderate bacteria, urine culture has shown no growth, blood cultures have been negative as well. 01/19/2021, patient's NG tube is removed and the patient was offered some follow liquid diet. There is some output in the colostomy bag. Abdomen is nondistended. Bowel sounds are still hypoactive and they're present. General surgeries on the case. No significant abdominal pain. The left foot is obviously necrotic and the patient had dry gangrene and passively were scheduling this patient sometime next week to undergo an amputation of the left lower extremity. Otherwise, his white cell count remains elevated at 20.7 although this is improving. Hemoglobin is at 8.2. Electrolytes show improvement in the renal function and creatinine is down to 1.32. The patient has a component of non-anion gap metabolic acidosis. He Is at 7 with a serum bicarb of 19. His arousable and awake. He is on TPN for nutritional support. He is on oxygen at 6 L per minute nasal cannula. He remains on empiric antibiotic coverage with IV Zosyn. Cardiac rhythm is currently sinus. The luis argueta remains on IV heparin. Nevertheless, the repeat chest x-ray was done today showed increase in bilateral pulmonary infiltrates and interstitial edema and developed of consolidation of the left upper lobe along with some worsening in the right-sided pleural effusion. Note that his echocardiogram showed an ejection fraction of 40% without any significant valvular abnormalities. 01/20/2021, the patient is awake and alert and communicating. He has a congested cough. Unable to bring up much of sputum. Nevertheless, he seems to be comfortable and his breathing is nonlabored and he is currently on oxygen at 8 L per minute with a saturation above 90%. His chest x-ray showing diffuse ellen ateral pulmonary infiltrates more so in the upper lobes and bilateral pleural effusions. He was given a dose of Lasix yesterday and his IV fluids was cut down to KVO. Following his Lasix, the patient showed adequate diuresis with without approximately 2.9 L of a negative fluid balance over the past 24 hours. In terms of his feeding, the patient is currently having limited amount of oral intake. He has some functionality in his colostomy bag. His bowel sounds are sluggish. No abdominal pain or distention. NG tube has been removed. No nausea or emesis. We have supplemented his nutrition with TPN for nutritional support and the patient is currently receiving TPN at the rate of 80 mL an hour. His IV fluids are otherwise at KVO. In terms of his blood work and electrolytes, the patient's PTT is therapeutic while being on IV heparin. His creatinine is down to 1.38 which is improved compared to yesterday. The rest of the electrodes are normal. White cell count remains elevated at 20.8 hemoglobin of 8.6. He is having bouts of 80 fibrillation still. He goes into A. fib paroxysmal along sun sinus rhythm. He is currently on IV heparin as mentioned. He is also on amiodarone which was switched to oral and the patient is currently on oral amiodarone at a dose of 400 mg by mouth twice a day. The patient is also on metoprolol 100 mg every 8 hours. He is on Symbicort as maintenance regarding his COPD and he needs to be started on DuoNeb nebulized treatments around the clock. An additional dose of Lasix will be given to him today. His previous echocardiogram showed an ejection fraction of around 40%. The patient is being followed up with vascular surgery. He has a dry gangrene of the left foot and the patient will need a left lower extremity amputation [id number] probably early next week once his condition is more stable. Reevaluated today on 01/21/2021, patient remains in the ICU, he is on 15 L high flow nasal cannula, he shouldn't is awake, alert, communicating, does not seem to be in any distress, chest x-ray continues to show bilateral pulmonary inf iltrates and bilateral pleural effusions. Remains on diuretics, antibiotics, IV fluid has been cut down to KVO. Patient is diuresing well. And he has a functional colostomy bag. He shouldn't was seen by vascular surgery, and he is being considered for left lower extremity below-knee amputation. Respiratory BC count is 21.5 hemoglobin is 9.1 electrolytes are normal BUN is 34 creatinine 1.36. Asked x-ray clearly shows extensive bilateral infiltrates and bilateral pleural effusions. A shunt remains on TPN, remains on bronchodilators, remains on amiodarone, remains on heparin, empirically on Zosyn, and he is also on bronchodilators On 01/22/2021 patient seen in follow-up in the intensive care unit, his lipid 3. Today's exam, but easily arousable, he is on 100% nonrebreather mask, his pulse ox is 97-98%. He is afebrile, he is not requiring any vasopressor support. He is receiving TPN at 80 ML per hour, and she is on lipids on Thursday schedule, he remains on heparin infusion per weight-based protocol. His last chest x-ray yesterday shows COPD with bilateral infiltrates and pleural effusion related to aspiration pneumonia, and possibility of CHF is not complet mabel excluded. Today's labs have been reviewed white count is relatively stable, at 22.3, his hemoglobin is down to 6.0 from 9.1 on yesterday's labs, and patient will receive 2 units of packed red blood cells, his platelet count is 404, his PTT is 50.6, sodium is 134, the respiratory infection lites were within normal limits, BUN is 37, creatinine 1.35, he was retested for COVID-19 with a PCR test was negative, it gastric or cold blood was negative. Surgery is following in regards to small bowel obstruction related to SMA syndrome, his ostomy is functioning, he does not complain of any abdominal pain, bowel sounds are present. No fever or chills. Hemodynamically patient has remained in sinus mechanism, he is not able to take anything by mouth currently, he is awaiting swallow evaluation today, he remains on beta blockers and oral amiodarone, there has been no recurrence of atrial fibrillation. His lower extremities reveal diminished pulses, patient is being considered for left [id number] amputation by vascular surgery pending further improvement of patient's respiratory status. The patient is seen today 01/23/2021 in follow-up in the intensive care unit. He is currently resting fairly comfortably in bed. He is awake. Alert. Still requiring 15 L for 100% nonrebreather mask. He's been intolerant to nasal cannula. He remains in atrial fibrillation. He is on a heparin drip. He remains on amiodarone at 0.5 mg/m, Cardizem drip at 7.5 mg per hour. He's to be initiated on aspirin as well. Swallow evaluation is pending. Chest x-ray continues to show bilateral infiltrates greater on the left lung suspected aspiration pneumonia. Also evidence of interstitial edema. Hemoglobin yesterday was down as low as 6.0. He is status post 2 units of packed red blood cells. Current hemoglobin 10.0. White count 15.9. Sodium 136. Potassium 4.5. Creatinine 1.19. Glucose 139. Zhang virus not detected. Gastric occult blood negative. He remains on Zosyn, bronchodilators, IV Solu-Medrol. He is on IV diuretics. Being nourished with TPN and lipids. Ostomy is functioning. Left below the knee amputation pending. Reevaluated today on 01/24/2021, patient remains in the ICU, he is on a nonrebreather mask, remains on heparin drip, remains on amiodarone, patient has not demonstrated any significant cell changer the last few days. He is basically about the same. Continues to have significant airspace disease and possibly some component of interstitial edema and pneumonia in both lungs. Remains on antibiotics bronchodilators steroids is also on diuretics, patient is receiving TPN, and his ostomy seems to be functional. [facility], we will postpone [id number] amputation for later, there is no urgency to perform the surgery anytime soon. His pulmonary status is to be optimized a bit further. WBC count today is 23.0 hemoglobin is 10 his electrolytes are normal renal profile showed a BUN of 44 creatinine 1.24. Reevaluated today on 01/25/2021, patient remains as an overflow in the ICU, patient is doing well, he is only on few liters nasal cannula, chest x-ray is showing improvement. Nonetheless continues to have bilateral infiltrates and possibly some component of interstitial edema. Continues to have leukocytosis with WBC count of 23.0, PTT is therapeutic, electrolytes are normal renal profile is about the same with a BUN of 57 creatinine 1.29. Objective - Vital Signs Vital signs: Vital Signs Temp 98.5 F 01/25/21 08:00 Pulse 64 01/25/21 08:00 Resp 21 01/25/21 08:00 BP 116/68 01/25/21 08:00 Pulse Ox 96 01/25/21 08:00 Intake & Output 01/24/21 01/25/21 01/25/21 18:59 06:59 18:59 Intake Total 342.562 4773.889 144.667 Output Total 1585 1400 1300 Balance -1441.716 -135.111 -1155.333 Weight 54.2 kg 54.6 kg Intake: IV 80 70 .9NS 80 70 Intake, IV Titration 63.284 1264.889 74.667 Amount Heparin Sod,Pork in 0.45% 63.284 186.389 NaCl 25,000 unit In 0.45 % NaCl 1 250ml.bag @ 12 UNITS/KG/HR 7.86 mls/hr IV .Q24H [facility] Rx#: [id number] Mvi, Adult No.4 with Vit 1078.5 74.667 K 10 ml Trace (Conc-1Ml/ Dose) 1 ml Sodium Phosphate 15 mmol Sodium Chloride 4Meq/ml Vial 60 meq Potassium Chloride 70 meq Magnesium Sulfate gm 1.25 gm Calcium Gluconate 1 gm In Amino Acids 5 %/Dextrose 20 % 1 ,000 ml @ 80 mls/hr IV . BY DURATION [facility] Rx#: [id number] Output: Urine 1585 1400 900 Stool 400 Other: Voiding Method Indwelling Catheter Indwelling Catheter Indwelling Catheter - Exam Physical Exam revealed a 65-year-old white male, frail looking, chronically ill, on 2 L nasal cannula. Head: Atraumatic, normocephalic. HEENT:[Neck is supple.] [No neck masses.] [No thyromegaly.] [No JVD.] Chest: [Symmetrical chest expansion, crackles at the bases bilaterally. Cardiac Exam: Irregular irregular rhythm, 2/6 systolic murmur throughout the precordium. Abdomen: [Soft, nontender, no megaly, no rebound, no guarding, normal bowel sounds.] Colostomy bag is noted in the left lower quadrant, seems to be functional. Extremities: [the patient has scars of previous vascular bypass surgery and the nolberto are present in the left inguinal area, left medial thigh and left foot j ust superior to the malleolus. There is some wetness and drainage coming from the foot incision. There is also dry gangrene at the site of the metatarsal or transmetatarsal amputation.There are no Doppler signals in the dorsalis pedis and radial tibialis. There is obviously guarded and the popliteal area and there is palpable pulses in the femoral area Neurological Exam: Alert oriented 3 gangrenous focal deficits, however the patient is noted to be extremely slow. And a poor historian. Psychiatric: Normal mood affect and normal mental status, improving over the last 1 week. Skin: As noted above - Labs CBC & Chem 7: 01/24/21 11:05 01/25/21 04:05 Labs: Abnormal Lab Results - Last 24 Hours (Table) 01/24/21 01/24/21 01/24/21 Range/Units 12:38 15:00 18:14 APTT 46.4 H (22.0-30.0) sec Chloride (98-107) mmol/L Carbon Dioxide (22-30) mmol/L BUN (9-20) mg/dL Creatinine (0.66-1.25) mg/dL Glucose (74-99) mg/dL POC Glucose (mg/dL) 162 H 123 H (75-99) mg/dL Magnesium (1.6-2.3) mg/dL 01/24/21 01/25/21 01/25/21 Range/Units 23:39 04:05 04:05 APTT 49.9 H (22.0-30.0) sec Chloride 97 L (98-107) mmol/L Carbon Dioxide 36 H (22-30) mmol/L BUN 57 H (9-20) mg/dL Creatinine 1.29 H (0.66-1.25) mg/dL Glucose 168 H (74-99) mg/dL POC Glucose (mg/dL) 180 H (75-99) mg/dL Magnesium 2.4 H (1.6-2.3) mg/dL 01/25/21 Range/Units 06:19 APTT (22.0-30.0) sec Chloride (98-107) mmol/L Carbon Dioxide (22-30) mmol/L BUN (9-20) mg/dL Creatinine (0.66-1.25) mg/dL Glucose (74-99) mg/dL POC Glucose (mg/dL) 213 H (75-99) mg/dL Magnesium (1.6-2.3) mg/dL Microbiology - Last 24 Hours (Table) 01/22/21 10:30 Gram Stain - Final Sputum Sputum Culture - Final Klebsiella pneumoniae Assessment and Plan Assessment: Impression: Recurrent small bowel obstruction possible SMA syndrome. Presently asymptomatic. Patient has a functional colostomy in place. Hypotension, possibly secondary to sepsis. Leukocytosis secondary to sepsis. Acute kidney injury, improving. Acute hypoxic respiratory failure with possible aspiration pneumonia and bilateral pleural effusions, possible interstitial edema remains on antibiotics and diuretics. Severe peripheral vessel occlusive disease affecting left lower extremity patient may require left below-knee amputation. Coronary artery disease. Atrial fibrillation with RVR maintained on amiodarone and metoprolol. And on IV heparin. Anterior wall hernia but no strangulation or incarceration. History of underlying COPD. History of diverticulitis and bowel resection with colectomy and diverting colostomy with Malcolm's pouch. History of bladder injury, iatrogenic in nature. History of degenerative joint disease. Severe malnutrition, BMI of 17, severe protein calorie malnutrition at this point. Stage III coccygeal ulcer. Recommendation: Transfer patient out of the ICU today. Continue antibiotics. Continue bronchodilators. Continue TPN. Continue diuretics. High risk for vascular surgery but he is contraindication as benefits possibly outweigh the risk. Continue to monitor ileostomy output. Monitor renal profile closely. Discussed his condition with vascular surgery on the case. Remains critically ill. We'll continue to follow Time with Patient: Less than 30
[2021-01-25 12:11] LABS: Glucose,Whole Blood 174 mg/dL (75-99)
--- NOTE | 2021-01-25 14:22 | P.PN ---
Subjective Progress Note Date: 01/25/21 CHIEF COMPLAINT: Fever HISTORY OF PRESENT ILLNESS: Patient remains in the ICU as an overflow. Surgical service is following his small bowel obstruction. Patient's ostomy is functioning. Patient lying in bed comfortably. No complaints of abdominal pain reported. Patient passed his modified barium swallow eval. He is on a honey thickened full liquid diet. Patient's appetite has increased today. Afebrile. Currently on 3 L of oxygen Patient seen and examined with Dr. Medina PHYSICAL EXAM: VITAL SIGNS: Reviewed. GENERAL: Well-developed in no acute distress. HEENT: No sclera icterus. Extraocular movements grossly intact. Moist buccal mucosa. Head is atraumatic, normocephalic. ABDOMEN: Soft. Nondistended Nontender. ileostomy with stool NEUROLOGIC: Alert and oriented. Cranial nerves II through XII grossly intact. ASSESSMENT: 1. Small bowel obstruction improved 2. Recurrent small bowel obstruction and underlying SMA syndrome PLAN: -Continue conservative management -No plans for surgical intervention -Continue supportive care -Continue full liquid diet -Continue TPN for nutrition support until oral intake shows improvement Physician Decontamination Technician note has been reviewed by physician. Signing provider agrees with the documented findings, assessment, and plan of care. Objective - Vital Signs Vital signs: Vital Signs Temp 97.9 F 01/25/21 12:00 Pulse 68 01/25/21 12:00 Resp 21 01/25/21 08:00 BP 143/65 01/25/21 12:00 Pulse Ox 93 L 01/25/21 12:00 Intake & Output 01/24/21 01/25/21 01/25/21 18:59 06:59 18:59 Intake Total 239.015 6124.889 144.667 Output Total 1585 1400 1300 Balance -1441.716 -135.111 -1155.333 Weight 54.2 kg 54.6 kg Intake: IV 80 70 .9NS 80 70 Intake, IV Titration 63.284 1264.889 74.667 Amount Heparin Sod,Pork in 0.45% 63.284 186.389 NaCl 25,000 unit In 0.45 % NaCl 1 250ml.bag @ 12 UNITS/KG/HR 7.86 mls/hr IV .Q24H [facility] Rx#: [id number] Mvi, Adult No.4 with Vit 1078.5 74.667 K 10 ml Trace (Conc-1Ml/ Dose) 1 ml Sodium Phosphate 15 mmol Sodium Chloride 4Meq/ml Vial 60 meq Potassium Chloride 70 meq Magnesium Sulfate gm 1.25 gm Calcium Gluconate 1 gm In Amino Acids 5 %/Dextrose 20 % 1 ,000 ml @ 80 mls/hr IV . BY DURATION [facility] Rx#: [id number] Output: Urine 1585 1400 900 Stool 400 Other: Voiding Method Indwelling Catheter Indwelling Catheter Indwelling Catheter - Labs CBC & Chem 7: 01/24/21 11:05 01/25/21 04:05 Labs: Abnormal Lab Results - Last 24 Hours (Table) 01/24/21 01/24/21 01/24/21 Range/Units 15:00 18:14 23:39 APTT 46.4 H (22.0-30.0) sec Chloride (98-107) mmol/L Carbon Dioxide (22-30) mmol/L BUN (9-20) mg/dL Creatinine (0.66-1.25) mg/dL Glucose (74-99) mg/dL POC Glucose (mg/dL) 123 H 180 H (75-99) mg/dL Magnesium (1.6-2.3) mg/dL 01/25/21 01/25/21 01/25/21 Range/Units 04:05 04:05 06:19 APTT 49.9 H (22.0-30.0) sec Chloride 97 L (98-107) mmol/L Carbon Dioxide 36 H (22-30) mmol/L BUN 57 H (9-20) mg/dL Creatinine 1.29 H (0.66-1.25) mg/dL Glucose 168 H (74-99) mg/dL POC Glucose (mg/dL) 213 H (75-99) mg/dL Magnesium 2.4 H (1.6-2.3) mg/dL 01/25/21 Range/Units 12:09 APTT (22.0-30.0) sec Chloride (98-107) mmol/L Carbon Dioxide (22-30) mmol/L BUN (9-20) mg/dL Creatinine (0.66-1.25) mg/dL Glucose (74-99) mg/dL POC Glucose (mg/dL) 174 H (75-99) mg/dL Magnesium (1.6-2.3) mg/dL Microbiology - Last 24 Hours (Table) 01/22/21 10:30 Gram Stain - Final Sputum Sputum Culture - Final Klebsiella pneumoniae
--- NOTE | 2021-01-25 15:11 | IR ---
EXAMINATION TYPE: IR cvc insert >=5 years DATE OF EXAM: 01/25/2021 COMPARISON: NONE CLINICAL HISTORY: Infection Needs long-term intravenous access for antibiotics, total parenteral nutr ition. PROCEDURE: Hand hygiene obtained with soap and water and alcohol-based hand rub. After informed consent, the skin overlying the right basilic vein was localized with ultrasound and n oted to be compressible and patent. An ultrasound image was obtained and submitted on the patient's chart. The overlying skin was prepped and draped and Lidocaine was used for local anesthesia. A ski n dave was made with a scalpel. Access was gained to the vein under ultrasound guidance with a 21 ga uge needle and a 0.018 inch wire was advanced. Access site was dilated with Peel-Away sheath and cat heter tailored to the appropriate length and advanced such that the distal tip is at the cavoatrial j unction. Spot image was obtained verifying placement. Catheter was fixed to the skin and a sterile dressing was placed following hemostasis. Catheter was aspirated and flushed with saline. Patient w as discharged in stable condition without complication. Maximal barrier technique is utilized. Ultra sound image is documented on the chart. Ultrasound used with sterile technique. Fluoro time and fluoroscopic images submitted to document procedure: 67 intraoperative C-arm images, 0.6 and is of fluoroscopy time IMPRESSION: STATUS POST ULTRASOUND AND FLUOROSCOPIC GUIDED PICC LINE PLACEMENT, READY FOR USE. THIS PROCEDURE WAS PERFORMED BY THE UNDERSIGNED.
[2021-01-25 16:59] LABS: Glucose,Whole Blood 178 mg/dL (75-99)
[2021-01-25] MEDS: ERTAPENEM 1 GM in SODIUM CHLORIDE 0.9% 50 ML IVPB SCH (18:11)
--- NOTE | 2021-01-25 18:46 | PN ---
PROGRESS NOTE DATE OF SERVICE: 01/25/2021 REASON FOR FOLLOWUP: Gram-negative pneumonia, left foot gangrene. INTERVAL HISTORY: Patient is afebrile. The patient is currently breathing comfortably. He seems to be more awake and alert today. Denies any chest pain. No worsening cough, no abdominal or diarrhea. PHYSICAL EXAMINATION: Blood pressure 143/65, pulse of 68, temperature of 97.9. He is 93% on 3 L nasal cannula. General description is an elderly male lying in bed in no distress. Respiratory system: Unlabored breathing. Decreased breath sounds in the base, no wheeze. Heart S1, S2. Regular rate and rhythm. Abdomen soft, no tenderness. Left foot remains to be having necrotic changes though. Left foot with no redness. LABS: BUN of 57, creatinine 1.29. DIAGNOSTIC IMPRESSION AND PLAN: 1. Patient with gram-negative pneumonia. Sputum has been finalized with ESBL Klebsiella. Patient is covered with Invanz to continue. 2. Left foot with necrotic change, no definite cellulitis. We will monitor closely. MMODL / IJN: [id number] /
--- NOTE | 2021-01-25 19:37 | PN ---
PROGRESS NOTE DATE OF SERVICE: 01/25/2021 This 65-year-old gentleman who was admitted with acute left leg severe infection and necrotic lesion is being closely monitored. Patient also had aspiration pneumonia, sensorium is slightly improving at this time. No chest pain. No palpitations. No fever. Surgery is being awaited. PHYSICAL EXAMINATION: Alert and oriented x3. Pulse 68, blood pressure 120/46, respiration 20, temperature 97.2, pulse ox 93% percent on 4 L. HEENT: Conjunctivae normal. Cardiovascular: S1, S2 muffled. Respiratory System: Breath sounds diminished at the bases. A few scattered rhonchi. Abdomen: Soft. Legs: Significant necrotic lesion on the left leg. LABS: Creatinine 1.29. ASSESSMENT: 1. Severe left leg infection with a necrotic lesion, possibly ischemic leg with acute severe sepsis and septic shock and severe hypotension present on admission. 2. Atrial fibrillation with fast ventricular rate. 3. Change in mental status acute metabolic encephalopathy multifactorial. 4. History of bilateral aspiration pneumonia with acute hypoxic respiratory failure. 5. On TPN. 6. Vomiting, coffee-grounds emesis and possibly upper gastrointestinal bleed. 7. Anemia, blood loss anemia, possibly. 8. Abdominal distention with possible acute small bowel obstruction versus ileus, present on admission, improved. 9. Hyponatremia. 10.Hypokalemia. 11.History of recent transmetatarsal amputation as well as femoral bypass surgery 3 weeks ago at [facility] on the left leg. 12.Peripheral vascular disease. 13.History of coronary artery disease. 14.Chronic anemia. 15.Acute kidney injury with acute tubular necrosis. 16.Chronic obstructive pulmonary disease. 17.Severe peripheral vascular disease. 18.Hypertension. 19.Chronic debility. 20.History of protein-calorie malnutrition. 21.Sacral decubitus ulcer stage III. 22.History of nicotine dependence. 23.GI, DVT prophylaxis. 24.Hyponatremia. 25.Hypoalbuminemia with mild protein-calorie malnutrition. 26.Increased WBC. 27.NO CODE, NO CPR, NO VENT. RECOMMENDATIONS AND DISCUSSION: Continue current medications, management and symptomatic treatment. Continue the antibiotics. Avoid increasing the IV pain medications because that is one of the reasons why the patient becomes more confused and after reducing the pain medications the patient's sensorium has improved. We will continue to monitor. Prognosis guarded. As mentioned earlier if the pulmonary status is stable, surgery per Dr. Pollack. Guarded prognosis. Further recommendations to follow. MMODL / IJN: [id number] / MTDD
[2021-01-25] MEDS: HEPARIN SODIUM,PORCINE/PF 5,000 UNIT/0.5 ML SYRINGE SQ SCH (19:51)
[2021-01-26 01:12] LABS: Glucose,Whole Blood 147 mg/dL (75-99)
[2021-01-26] MEDS: INSULIN ASPART (NovoLOG) 100 UNIT/ML VIAL SQ SCH ×4 (01:16→17:51)
[2021-01-26] MEDS: HYDROmorphone 0.5 MG/0.5 ML SYRINGE IVP PRN ×5 (01:17→19:37)
[2021-01-26 05:57] LABS: Glucose,Whole Blood 147 mg/dL (75-99)
[2021-01-26] MEDS: MORPHINE SULFATE IR 15 MG TABLET PO SCH ×4 (06:12→23:13)
[2021-01-26] MEDS: IPRATROPIUM-ALBUTEROL 3 ML NEB INHALATION SCH ×4 (07:56→20:11)
[2021-01-26] MEDS: SYMBICORT 80-4.5 MCG INHALER INHALATION SCH ×2 (07:56→20:10)
[2021-01-26 08:37] LABS: Basophils # (A) 0.1 k/uL (0-0.2); Basophils % (A) 0 %; Eosinophils % (A) 0 %; HCT 37.6 % (39.0-53.0); HGB 11.4 gm/dL (13.0-17.5); Hypochromasia Slight; Lymphocytes # (A) 0.4 k/uL (1.0-4.8); Lymphocytes % (A) 2 %; MCH 29.9 pg (25.0-35.0); MCHC 30.4 g/dL (31.0-37.0); MCV 98.4 fL (80.0-100.0); Mean Platelet Volume 8.1; Monocytes # (A) 1.4 k/uL (0-1.0); Monocytes % (A) 6 %; Neutrophils # (A) 22.5 k/uL (1.3-7.7); Neutrophils % (A) 91 %; Platelet Count 379 k/uL (150-450); RBC 3.82 m/uL (4.30-5.90); RDW 14.8 % (11.5-15.5); WBC 24.8 k/uL (3.8-10.6)
[2021-01-26 08:57] LABS: Phosphorus 3.8 mg/dL (2.5-4.5); Potassium 4.9 mmol/L (3.5-5.1)
[2021-01-26 08:58] LABS: Magnesium 2.2 mg/dL (1.6-2.3)
[2021-01-26] MEDS: FUROSEMIDE 10 MG/ML 2 ML VIAL IV SCH ×2 (09:19→21:02)
[2021-01-26] MEDS: PANTOPRAZOLE 40 MG/10 ML VIAL IVP SCH ×2 (09:19→21:02)
[2021-01-26] MEDS: AMIODARONE 200 MG TAB PO SCH ×2 (09:19→21:02)
[2021-01-26] MEDS: GABAPENTIN 300 MG CAP PO SCH ×3 (09:19→23:13)
[2021-01-26] MEDS: DOCUSATE 100 MG CAP PO SCH (09:19)
[2021-01-26] MEDS: MULTIVITAMINS, THERA 1 EACH TAB PO SCH (09:19)
[2021-01-26] MEDS: methylPREDNISolone SOD SUCCI 40 MG/ML 1 ML VIAL IV SCH ×2 (09:20→21:02)
[2021-01-26] MEDS: METOPROLOL TARTRATE 50 MG TAB PO SCH ×2 (09:20→21:02)
[2021-01-26] MEDS: 1: MVI, ADULT NO.4 WITH VIT K 10 ML, TRACE (CONC-1ML/DOSE) 1 ML, SODIUM PHOSPHATE 15 MMO IV SCH ×16 (10:23→14:31)
--- NOTE | 2021-01-26 10:49 | P.PN ---
Progress Note - Text Progress Note Date: 01/26/21 Patient remains essentially unchanged from yesterday. He is tolerating a diet. On exam her abdomen is soft nontender Patient is waiting for vascular surgery regarding his lower extremity ischemia.
[2021-01-26 12:04] LABS: Glucose,Whole Blood 162 mg/dL (75-99)
[2021-01-26] MEDS: ASPIRIN 81 MG PO SCH (12:26)
--- NOTE | 2021-01-26 14:35 | PN ---
PROGRESS NOTE Mr. Joaquin is in sinus rhythm. He is on a combination of amiodarone and metoprolol. Doing well. His oxygenation has improved. He is being considered for amputation because of vascular insufficiency of lower extremity. From a cardiac standpoint, he can proceed with the procedure. We will leave him on IV heparin until surgery is performed. Same medical regimen. Vitals signs are stable. JVD is not evident. S1-S2 heard normally, short systolic murmur noted. Rhythm is regular. Lungs reveal improved air entry. Abdomen is soft. Lower extremity exam was not performed and appears to be unchanged. The patient can proceed with amputation. Risk is moderate. MMODL / IJN: [id number] /
[2021-01-26] MEDS: HEPARIN SOD,PORK IN 0.45% NACL 25,000 UNIT in 0.45% NACL 1 250ML.BAG IV SCH (14:46)
[2021-01-26] MEDS: ERTAPENEM 1 GM in SODIUM CHLORIDE 0.9% 50 ML IVPB SCH (16:28)
[2021-01-26 16:30] LABS: Glucose,Whole Blood 133 mg/dL (75-99)
--- NOTE | 2021-01-26 18:56 | PN ---
PROGRESS NOTE DATE OF SERVICE: 01/26/2021 REASON FOR FOLLOWUP: 1. Gram-negative pneumonia. 2. Left foot gangrene. INTERVAL HISTORY: Patient is afebrile. The patient is currently breathing comfortably. He is on 4 L nasal cannula. Denies any chest pain. No worsening cough or sputum production. No abdominal pain. No diarrhea. PHYSICAL EXAMINATION: Blood pressure 148/65 with a pulse of 61, temperature is 97.8. He is 95% on 4 L nasal cannula. General description is an elderly male lying in bed in no distress. Respiratory system: Unlabored breathing, decreased breath sounds in the bases. No wheeze. Heart S1, S2. Regular rate and rhythm. Abdomen soft, no tenderness. Left foot with gangrenous changes. No change was noticed. LABS: Hemoglobin is 11.4, white count 24.8, BUN of 61, creatinine is 1.21. DIAGNOSTIC IMPRESSION AND PLAN: 1. Patient with gram-negative pneumonia. Sputum is positive for ESBL Klebsiella. Patient is covered with Invanz to continue. Patient seems to have shown overall improvement in his clinical condition, however, did have significant worsening of his white count could be related to the Solu-Medrol and we will monitor closely. 2. Left foot gangrene. No evidence of cellulitis. Continue to monitor the patient closely. MMODL / IJN: [id number] /
--- NOTE | 2021-01-26 21:53 | PN ---
PROGRESS NOTE DATE OF SERVICE: 01/26/2021 This 65-year-old gentleman who was admitted with severe left leg infection also had a necrotic lesion. The patient had unstable pulmonary status. No chest pain. No palpitations. No fever. PHYSICAL EXAMINATION: Alert and oriented x3. Pulse 61, blood pressure 148/64, respiration 18, temperature 97.8, pulse ox 94% on 4 L. HEENT: Conjunctivae normal. NECK: No jugular venous distention. CARDIOVASCULAR: S1, S2 muffled. RESPIRATION: Breath sounds diminished at the bases. A few scattered rhonchi. ABDOMEN: Soft, non-tender. LEGS: No edema. No swelling. NERVOUS SYSTEM: No focal deficit. LABS: WBC 24.8, hemoglobin 11.4. Other labs are noted. ASSESSMENT: 1. Acute severe left leg infection with a necrotic lesion, possibly ischemic leg with acute severe sepsis and septic shock and severe hypotension, present on admission. 2. Atrial fibrillation with a fast ventricular rate. 3. Change in mental status, acute metabolic encephalopathy, multifactorial. 4. History of bilateral aspiration pneumonia with acute hypoxic respiratory failure. 5. On TPN. 6. Vomiting, coffee-ground emesis and possible upper gastrointestinal bleeding, improved. 7. Anemia, acute blood loss anemia possibly. 8. Abdominal distention with possible acute small-bowel obstruction versus ileus, present on admission, improved. 9. Hyponatremia. 10.Hypokalemia. 11.History of recent transmetatarsal amputation as well as femoral bypass surgery 3 weeks ago at [facility] on the left leg. 12.Peripheral vascular disease. 13.History of coronary artery disease. 14.Chronic anemia. 15.Acute kidney injury with acute tubular necrosis. 16.Chronic obstructive pulmonary disease. 17.Severe peripheral vascular disease. 18.Hypertension. 19.Chronic debility. 20.History of protein-calorie malnutrition. 21.Sacral decubitus ulcer, stage III. 22.History of nicotine dependence. 23.History of GI and DVT prophylaxis. 24.Hyponatremia. 25.Hypoalbuminemia with mild protein-calorie malnutrition. 26.Increased white count. 27.NO CODE, NO CPR, NO VENT. RECOMMENDATIONS AND DISCUSSION: I recommend to continue current medications, continue with symptomatic treatment. Avoid too much pain medication because the patient had change in mental status and a high risk of aspiration in the ICU. Continue to monitor. Prognosis guarded. Further recommendations to follow. MMODL / IJN: [id number] /
[2021-01-27 00:02] LABS: Glucose,Whole Blood 131 mg/dL (75-99)
[2021-01-27] MEDS: HYDROmorphone 0.5 MG/0.5 ML SYRINGE IVP PRN ×5 (00:16→20:26)
[2021-01-27] MEDS: 1: MVI, ADULT NO.4 WITH VIT K 10 ML, TRACE (CONC-1ML/DOSE) 1 ML, SODIUM PHOSPHATE 15 MMO IV SCH ×16 (00:29→14:24)
[2021-01-27] MEDS: INSULIN ASPART (NovoLOG) 100 UNIT/ML VIAL SQ SCH ×5 (01:18→23:32)
[2021-01-27] MEDS: MORPHINE SULFATE IR 15 MG TABLET PO SCH ×4 (06:31→23:30)
[2021-01-27 06:49] LABS: Glucose,Whole Blood 148 mg/dL (75-99)
[2021-01-27] MEDS: IPRATROPIUM-ALBUTEROL 3 ML NEB INHALATION SCH ×4 (07:02→20:22)
[2021-01-27] MEDS: SYMBICORT 80-4.5 MCG INHALER INHALATION SCH ×2 (07:02→20:22)
[2021-01-27] MEDS: ACETAMINOPHEN TAB 325 MG TAB PO PRN (09:03)
[2021-01-27] MEDS: DOCUSATE 100 MG CAP PO SCH (09:03)
[2021-01-27] MEDS: methylPREDNISolone SOD SUCCI 40 MG/ML 1 ML VIAL IV SCH ×2 (09:03→20:25)
[2021-01-27] MEDS: AMIODARONE 200 MG TAB PO SCH ×2 (09:03→20:25)
[2021-01-27] MEDS: ASPIRIN 81 MG PO SCH (09:03)
[2021-01-27] MEDS: METOPROLOL TARTRATE 50 MG TAB PO SCH ×2 (09:03→20:25)
[2021-01-27] MEDS: FUROSEMIDE 10 MG/ML 2 ML VIAL IV SCH ×2 (09:04→20:25)
[2021-01-27] MEDS: GABAPENTIN 300 MG CAP PO SCH ×3 (09:04→23:30)
[2021-01-27] MEDS: PANTOPRAZOLE 40 MG/10 ML VIAL IVP SCH ×2 (09:04→20:25)
[2021-01-27 09:16] LABS: Magnesium 2.2 mg/dL (1.6-2.3); Phosphorus 4.3 mg/dL (2.5-4.5)
[2021-01-27] MEDS: HEPARIN SOD,PORK IN 0.45% NACL 25,000 UNIT in 0.45% NACL 1 250ML.BAG IV SCH (09:33)
--- NOTE | 2021-01-27 11:16 | P.PN ---
Subjective Progress Note Date: 01/27/21 Patient seen and examined. No complaints. On nasal cannula Objective - Vital Signs Vital signs: Vital Signs Temp 97.8 F 01/27/21 09:18 Pulse 60 01/27/21 09:18 Resp 16 01/27/21 09:18 BP 149/65 01/27/21 09:18 Pulse Ox 93 L 01/27/21 09:18 Intake & Output 01/26/21 01/27/21 01/27/21 18:59 06:59 18:59 Intake Total 2336.5 823.759 Output Total 1275 1600 Balance 1061.5 -1600 823.759 Intake: IV 50 50 Invasive Line 8 20 20 Invasive Line 9 30 30 Intake, IV Titration 1066.5 233.759 Amount Heparin Sod,Pork in 0.45% 233.759 NaCl 25,000 unit In 0.45 % NaCl 1 250ml.bag @ 12 UNITS/KG/HR 7.86 mls/hr IV .Q24H [facility] Rx#: [id number] Sodium Phosphate 15 mmol 1066.5 Sodium Chloride 4Meq/ml Vial 60 meq Potassium Chloride 70 meq Magnesium Sulfate gm 0.75 gm Calcium Gluconate 1 gm In Amino Acids 5 %/Dextrose 20 % 1,000 ml @ 80 mls/ hr IV .BY DURATION [facility] Rx #:[id number] Oral 1220 540 Output: Urine 1275 1600 Uretheral (Pollack) 375 Other: Voiding Method Indwelling Catheter Indwelling Catheter Indwelling Catheter # Bowel Movements 1 - Exam Gen. is a pleasant male in no respiratory distress on O2 per nasal cannula HEENT is normocephalic. Lungs with coarse breath sounds bilaterally and diminished. Abdomen is soft, nontender nondistended. Functioning ostomy. Extremities with no clubbing. Left lower extremity dry gangrene as previous. - Labs CBC & Chem 7: 01/26/21 07:50 01/27/21 07:22 Labs: Abnormal Lab Results - Last 24 Hours (Table) 01/26/21 01/26/21 01/26/21 Range/Units 12:03 16:28 23:59 APTT (22.0-30.0) sec Carbon Dioxide (22-30) mmol/L BUN (9-20) mg/dL Glucose (74-99) mg/dL POC Glucose (mg/dL) 162 H 133 H 131 H (75-99) mg/dL 01/27/21 01/27/21 01/27/21 Range/Units 06:47 07:22 07:22 APTT 57.6 H (22.0-30.0) sec Carbon Dioxide 34 H (22-30) mmol/L BUN 62 H (9-20) mg/dL Glucose 137 H (74-99) mg/dL POC Glucose (mg/dL) 148 H (75-99) mg/dL Assessment and Plan Assessment: Left lower extremity dry gangrene Failed left lower extremity bypass Acute hypoxic respiratory failure on O2, positive sputum cultures Leukocytosis, improving Small bowel obstruction, improved Plan: At this point patient has improved regarding his respiratory status. We'll plan for left above-knee amputation. Will hold heparin prior to. Patient will need spinal anesthesia. Consul anesthesia for evaluation
[2021-01-27 11:42] LABS: Glucose,Whole Blood 432 mg/dL (75-99)
--- NOTE | 2021-01-27 12:23 | P.PN ---
Progress Note - Text Progress Note Date: 01/27/21 She remains clinically unchanged.. He is tolerating diet. Apparently he is scheduled for vascular surgery on his lower extremity on Thursday.
--- NOTE | 2021-01-27 12:48 | PN ---
PROGRESS NOTE Mr. Joaquin is resting comfortably without symptoms. He is only on 2 or 3 L of oxygen, doing well. He has been maintaining sinus rhythm. I will reduce his amiodarone to 200 mg b.i.d. from 400. Same medical regimen. Patient can proceed with amputation. No contraindication, moderate risk. We will continue other medications. Vitals are stable. No JVD. S1-S2 heard normally. Short systolic murmur noted. Lungs revealed decent air entry. Abdomen is soft. Lower extremities reveal no new findings and the patient has significant ischemia and recent surgery. MMODL / IJN: [id number] /
--- NOTE | 2021-01-27 16:33 | PN ---
PROGRESS NOTE DATE OF SERVICE: 01/27/2021 REASON FOR FOLLOW UP: 1. Gram-negative pneumonia. 2. Left foot ischemic changes. INTERVAL HISTORY: Patient is afebrile. The patient is breathing comfortably. Denies any chest pain or worsening cough. No abdominal pain has been complained of. More pain to the foot and wanted more pain medication. PHYSICAL EXAMINATION: Blood pressure 140/66, pulse of 68, temperature 96.8. He is 95% on 4 L nasal cannula. General description is an elderly male lying in bed in no distress. Respiratory system: Unlabored breathing, clear to auscultation anteriorly. Heart S1, S2. Regular rate and rhythm. Abdomen soft, no tenderness. The left foot with ischemic changes. No worsening was noted. No redness. LABS: BUN of 63, creatinine 1.23. CBC was not done today. DIAGNOSTIC IMPRESSION AND PLAN: 1. Patient with acute pneumonia, possible aspiration etiology. Sputum was positive for ESBL Klebsiella. Patient is covered with Invanz. 2. Patient with left foot ischemic changes with recent surgery at the outpatient facility. No cellulitis. Vascular surgery is following the patient. Continue supportive care. MMODL / IJN: [id number] /
[2021-01-27 16:36] LABS: Glucose,Whole Blood 134 mg/dL (75-99)
[2021-01-27] MEDS: ERTAPENEM 1 GM in SODIUM CHLORIDE 0.9% 50 ML IVPB SCH (17:58)
--- NOTE | 2021-01-27 20:54 | PN ---
PROGRESS NOTE DATE OF SERVICE: 01/27/2021 This 65-year-old gentleman who was admitted with acute severe left leg infection with necrotic lesion is being closely monitored. No chest pain. No palpitations. No fever. Surgery is scheduled for Thursday by Dr. Pollack for left above-knee amputation. PHYSICAL EXAMINATION: Alert and oriented times three. Pulse 71, blood pressure 140/70, respirations 16, temperature is normal, 98.2, pulse ox 94% on 4 L. HEENT: Conjunctivae normal. Neck: No JVD. Cardiovascular: S1, S2, muffled. No S3, no S4. Respiratory: Breath sounds diminished in the bases. A few scattered rhonchi. Abdomen: Soft, nontender. Nervous system: No focal deficits. LAB STUDIES: WBC not available. Sodium 137. Other labs are noted. ASSESSMENT: 1. Acute severe left leg infection with necrotic lesion, possibly ischemic leg with acute severe sepsis septic shock and severe hypotension present on admission. 2. Atrial fibrillation with fast ventricular rate. 3. Change in mental status acute metabolic encephalopathy multifactorial. 4. Acute bilateral aspiration pneumonia with acute hypoxic respiratory failure. 5. On TPN. 6. Vomiting, coffee-grounds emesis and possible upper bleeding, improved. 7. Anemia, acute blood loss anemia, possibly. 8. Abdominal distention with possibly acute small-bowel obstruction versus ileus, present on admission improved. 9. Hyponatremia. 10.Hypokalemia. 11.History of recent transmetatarsal amputation as well as femoral bypass surgery [address] [facility] on the left leg. 12.Peripheral vascular disease. 13.History of coronary artery disease. 14.Chronic anemia. 15.Acute kidney injury with acute tubular necrosis. 16.Chronic obstructive pulmonary disease. 17.peripheral vascular disease. 18.Hypertension. 19.Chronic debility. 20.History of protein-calorie malnutrition. 21.Sacral decubitus ulcer stage III. 22.History of nicotine dependence. 23.History of GI and DVT prophylaxis. 24.Hyponatremia. 25.Hypoalbuminemia with mild protein-calorie malnutrition. 26.Increased WBC. 27.NO CODE, NO CPR, NO VENT. RECOMMENDATIONS AND DISCUSSION: Recommend to continue current medication, continue to monitor. Symptomatic treatment. Otherwise at this time I would recommend repeat labs and avoid excessive pain medications. Continue to monitor and ensure oxygenation. Also recommend portable chest x-ray for followup. Further recommendations to follow. MMODL / IJN: [id number] / MTDJovanny
[2021-01-27 23:25] LABS: Glucose,Whole Blood 134 mg/dL (75-99)
[2021-01-28] MEDS: 1: MVI, ADULT NO.4 WITH VIT K 10 ML, TRACE (CONC-1ML/DOSE) 1 ML, SODIUM PHOSPHATE 15 MMO IV SCH ×24 (01:24→16:35)
[2021-01-28] MEDS: HEPARIN SOD,PORK IN 0.45% NACL 25,000 UNIT in 0.45% NACL 1 250ML.BAG IV SCH (01:25)
[2021-01-28] MEDS: HYDROmorphone 0.5 MG/0.5 ML SYRINGE IVP PRN ×3 (01:39→18:48)
[2021-01-28] MEDS: MORPHINE SULFATE IR 15 MG TABLET PO SCH ×3 (05:20→19:03)
[2021-01-28] MEDS: INSULIN ASPART (NovoLOG) 100 UNIT/ML VIAL SQ SCH ×3 (05:20→18:49)
[2021-01-28 05:29] LABS: Glucose,Whole Blood 169 mg/dL (75-99)
[2021-01-28 06:53] LABS: Basophils # (A) 0.1 k/uL (0-0.2); Basophils % (A) 0 %; Eosinophils # (A) 0.1 k/uL (0-0.7); Eosinophils % (A) 0 %; HCT 37.9 % (39.0-53.0); HGB 11.8 gm/dL (13.0-17.5); Hypochromasia Slight; Lymphocytes # (A) 0.3 k/uL (1.0-4.8); Lymphocytes % (A) 1 %; MCH 30.4 pg (25.0-35.0); MCHC 31.1 g/dL (31.0-37.0); MCV 97.7 fL (80.0-100.0); Mean Platelet Volume 8.2; Monocytes # (A) 1.6 k/uL (0-1.0); Monocytes % (A) 5 %; Neutrophils # (A) 31.6 k/uL (1.3-7.7); Neutrophils % (A) 93 %; Platelet Count 461 k/uL (150-450); RBC 3.88 m/uL (4.30-5.90); RDW 14.7 % (11.5-15.5); WBC 33.9 k/uL (3.8-10.6)
[2021-01-28 07:09] LABS: Magnesium 2.1 mg/dL (1.6-2.3); Phosphorus 4.3 mg/dL (2.5-4.5); Potassium 4.8 mmol/L (3.5-5.1)
[2021-01-28] MEDS: IPRATROPIUM-ALBUTEROL 3 ML NEB INHALATION SCH ×4 (07:33→20:48)
[2021-01-28] MEDS: SYMBICORT 80-4.5 MCG INHALER INHALATION SCH ×2 (07:33→20:47)
[2021-01-28] MEDS: METOPROLOL TARTRATE 50 MG TAB PO SCH ×2 (08:59→20:32)
[2021-01-28] MEDS: FUROSEMIDE 10 MG/ML 2 ML VIAL IV SCH ×2 (08:59→20:31)
[2021-01-28] MEDS: PANTOPRAZOLE 40 MG/10 ML VIAL IVP SCH ×2 (08:59→20:31)
[2021-01-28] MEDS: AMIODARONE 200 MG TAB PO SCH ×2 (08:59→20:33)
[2021-01-28] MEDS: GABAPENTIN 300 MG CAP PO SCH ×2 (08:59→17:09)
[2021-01-28] MEDS: DOCUSATE 100 MG CAP PO SCH (08:59)
[2021-01-28] MEDS: ASPIRIN 81 MG PO SCH (08:59)
[2021-01-28] MEDS: methylPREDNISolone SOD SUCCI 40 MG/ML 1 ML VIAL IV SCH ×2 (09:00→20:32)
--- NOTE | 2021-01-28 10:18 | P.PN ---
Subjective Progress Note Date: 01/28/21 CHIEF COMPLAINT: Fever HISTORY OF PRESENT ILLNESS: Surgical service is following his small bowel obstruction. Patient's ostomy is functioning. Patient lying in bed comfortably. No complaints of abdominal pain. He denies any nausea or vomiting. Tolerating full liquid diet. Patient scheduled for a left above knee amputation tomorrow with vascular surgery. Afebrile on 4 L nasal cannula Patient seen and examined with Dr. Medina PHYSICAL EXAM: VITAL SIGNS: Reviewed. GENERAL: Well-developed in no acute distress. HEENT: No sclera icterus. Extraocular movements grossly intact. Moist buccal m ucosa. Head is atraumatic, normocephalic. ABDOMEN: Soft. Nondistended Nontender. ileostomy with stool NEUROLOGIC: Alert and oriented. Cranial nerves II through XII grossly intact. ASSESSMENT: 1. Small bowel obstruction improved 2. Recurrent small bowel obstruction and underlying SMA syndrome PLAN: -Continue supportive care -No plans for surgical intervention -Continue supportive care -Continue full liquid diet -Continue TPN for nutrition support until oral intake shows improvement Physician Professor Of Genetics note has been reviewed by physician. Signing provider agrees with the documented findings, assessment, and plan of care. Objective - Vital Signs Vital signs: Vital Signs Temp 98.2 F 01/28/21 04:00 Pulse 69 01/28/21 04:00 Resp 18 01/28/21 04:00 BP 160/72 01/28/21 04:00 Pulse Ox 98 01/28/21 04:00 Intake & Output 01/27/21 01/28/21 01/28/21 18:59 06:59 18:59 Intake Total 3366.259 456.061 194.952 Output Total 1400 3000 Balance 1966.259 -2543.939 194.952 Weight 67.4 kg Intake: IV 170 36.6 .9NS 120 Heparin Sod,Pork in 0.45% 36.6 NaCl 25,000 unit In 0.45 % NaCl 1 250ml.bag @ 12 UNITS/KG/HR 7.86 mls/hr IV .Q24H [facility] Rx#: [id number] Invasive Line 8 20 Invasive Line 9 30 Intake, IV Titration 1296.259 197.461 76.952 Amount Heparin Sod,Pork in 0.45% 233.759 197.461 76.952 NaCl 25,000 unit In 0.45 % NaCl 1 250ml.bag @ 12 UNITS/KG/HR 7.86 mls/hr IV .Q24H [facility] Rx#: [id number] Mvi, Adult No.4 with Vit 1062.5 K 10 ml Trace (Conc-1Ml/ Dose) 1 ml Sodium Phosphate 15 mmol Sodium Chloride 4Meq/ml Vial 60 meq Potassium Chloride 40 meq Magnesium Sulfate gm 0.75 gm Calcium Gluconate 1 gm In Amino Acids 5 %/Dextrose 20 % 1 ,000 ml @ 80 mls/hr IV . BY DURATION [facility] Rx#: [id number] Oral 1900 118 TPN/PPN 222 .9NS 222 Output: Urine 1400 3000 Uretheral (Pollack) 1400 1200 Other: Voiding Method Indwelling Catheter Indwelling Catheter # Bowel Movements 1 1 - Labs CBC & Chem 7: 01/28/21 06:21 01/28/21 06:21 Labs: Abnormal Lab Results - Last 24 Hours (Table) 01/27/21 01/27/21 01/27/21 Range/Units 11:40 16:34 23:23 WBC (3.8-10.6) k/uL RBC (4.30-5.90) m/uL Hgb (13.0-17.5) gm/dL Hct (39.0-53.0) % Plt Count (150-450) k/uL Neutrophils # (1.3-7.7) k/uL Lymphocytes # (1.0-4.8) k/uL Monocytes # (0-1.0) k/uL APTT (22.0-30.0) sec Sodium (137-145) mmol/L Chloride (98-107) mmol/L Carbon Dioxide (22-30) mmol/L BUN (9-20) mg/dL Creatinine (0.66-1.25) mg/dL Glucose (74-99) mg/dL POC Glucose (mg/dL) 432 H 134 H 134 H (75-99) mg/dL 01/28/21 01/28/21 01/28/21 Range/Units 05:18 06:21 06:21 WBC 33.9 H (3.8-10.6) k/uL RBC 3.88 L (4.30-5.90) m/uL Hgb 11.8 L (13.0-17.5) gm/dL Hct 37.9 L (39.0-53.0) % Plt Count 461 H (150-450) k/uL Neutrophils # 31.6 H (1.3-7.7) k/uL Lymphocytes # 0.3 L (1.0-4.8) k/uL Monocytes # 1.6 H (0-1.0) k/uL APTT (22.0-30.0) sec Sodium 136 L (137-145) mmol/L Chloride 96 L (98-107) mmol/L Carbon Dioxide 36 H (22-30) mmol/L BUN 68 H (9-20) mg/dL Creatinine 1.26 H (0.66-1.25) mg/dL Glucose 137 H (74-99) mg/dL POC Glucose (mg/dL) 169 H (75-99) mg/dL 01/28/21 Range/Units 06:21 WBC (3.8-10.6) k/uL RBC (4.30-5.90) m/uL Hgb (13.0-17.5) gm/dL Hct (39.0-53.0) % Plt Count (150-450) k/uL Neutrophils # (1.3-7.7) k/uL Lymphocytes # (1.0-4.8) k/uL Monocytes # (0-1.0) k/uL APTT 73.6 H (22.0-30.0) sec Sodium (137-145) mmol/L Chloride (98-107) mmol/L Carbon Dioxide (22-30) mmol/L BUN (9-20) mg/dL Creatinine (0.66-1.25) mg/dL Glucose (74-99) mg/dL POC Glucose (mg/dL) (75-99) mg/dL
--- NOTE | 2021-01-28 11:03 | XR ---
EXAMINATION TYPE: XR chest 1V portable DATE OF EXAM: 01/28/2021 COMPARISON: Chest x-ray dated 01/25/2021 HISTORY: Pneumonia TECHNIQUE: Single frontal view of the chest is obtained. FINDINGS: Left jugular central venous catheter, right-sided PICC line are overlying appropriate posi tions, distal tip of the PICC line is near the cavoatrial junction level, left jugular central venous catheter shows the distal tip over the superior vena cava. No evident pneumothorax. There is bluntin g the costophrenic angles. Cardiac mediastinal silhouette is likely stable, and the aorta is dense. T here are patchy areas of airspace disease, prominent interstitium. Patient is rotated, there are over lying artifacts. Bones are unchanged. IMPRESSION: There may be basilar effusions and associated atelectasis versus edema or pneumonia.
--- NOTE | 2021-01-28 11:17 | P.PN ---
Subjective HISTORY OF PRESENT ILLNESS: This is a 65-year-old male with a past medical history significant for paroxysmal atrial fibrillation not on anticoagulation secondary to GI bleed, coronary artery disease with previous stenting to the RCA in 2018, nicotine dependence, and recent vascular surgery to left lower extremity.Recently underwent surgery to his left lower extremity at [facility] a few weeks ago. 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 We have been asked to see the patient in consultation for afib and CHF. Echocardiogram completed revealing ejection fraction 40-45%. Mild mitral regurgitation. Mild tricuspid re gurgitation. Patient examined at the bedside, no acute distress. He denies any chest pain. Does endorse some shortness of breath. No acute events overnight. Patient is maintaining sinus mechanism. He's currently maintained on amiodarone 200 mg twice a day, aspirin 81mg daily, IV Lasix 20 mg twice a day, IV heparin, metoprolol tartrate 100 mg twice a day. On TPN. He has had 4.4L output over the past 24 hours. PHYSICAL EXAM: VITAL SIGNS: Reviewed. GENERAL: Well-developed in no acute distress. HEENT: Neck supple. No JVD LUNGS: Respirations even and unlabored. Lungs essentially clear to auscultation bilaterally. HEART: Regular rate and rhythm. S1 and S2 heard. ABDOMEN: Soft. Nondistended. Nontender. EXTREMITIES: Left toe amputations noted. Patient with necrotic tissue to LILLIAN. No lower extremity edema NEUROLOGIC: Awake and alert. Oriented x 3. ASSESSMENT: Chest pain, troponin negative x 3 Small bowel obstruction Acute diastolic congestive heart failure Paroxysmal atrial fibrillation with RVR not on anticoagulation secondary to GI bleed, currently on IV heparin drip He is maintaining sinus mechanism Coronary artery disease with previous stenting to the RCA in 2018 Acute hypoxic respiratory failure with possible aspiration pneumonia and bilateral pleural effusions Recent surgery to left lower extremity Left lower extremity dry gangrene Nicotine dependence Severe peripheral vessel occlusive disease affecting left lower extremity patient may require left below-knee amputation. PLAN: We will continue present medical therapy, hopefull transition to PO Lasix in the next 24-48 hours Continue IV heparin drip Continue cardiac telemetry Further recommendations based on clinical course Nurse practitioner note has been reviewed by physician. Signing provider agrees with the documented findings, assessment, and plan of care. Objective - Vital Signs Vital signs: Vital Signs Temp 98.2 F 01/28/21 04:00 Pulse 69 01/28/21 04:00 Resp 18 01/28/21 04:00 BP 160/72 01/28/21 04:00 Pulse Ox 98 01/28/21 04:00 Intake & Output 01/27/21 01/28/21 01/28/21 18:59 06:59 18:59 Intake Total 3366.259 456.061 76.952 Output Total 1400 3000 Balance 1966.259 -2543.939 76.952 Weight 67.4 kg Intake: IV 170 36.6 .9NS 120 Heparin Sod,Pork in 0.45% 36.6 NaCl 25,000 unit In 0.45 % NaCl 1 250ml.bag @ 12 UNITS/KG/HR 7.86 mls/hr IV .Q24H [facility] Rx#: [id number] Invasive Line 8 20 Invasive Line 9 30 Intake, IV Titration 1296.259 197.461 76.952 Amount Heparin Sod,Pork in 0.45% 233.759 197.461 76.952 NaCl 25,000 unit In 0.45 % NaCl 1 250ml.bag @ 12 UNITS/KG/HR 7.86 mls/hr IV .Q24H [facility] Rx#: [id number] Mvi, Adult No.4 with Vit 1062.5 K 10 ml Trace (Conc-1Ml/ Dose) 1 ml Sodium Phosphate 15 mmol Sodium Chloride 4Meq/ml Vial 60 meq Potassium Chloride 40 meq Magnesium Sulfate gm 0.75 gm Calcium Gluconate 1 gm In Amino Acids 5 %/Dextrose 20 % 1 ,000 ml @ 80 mls/hr IV . BY DURATION [facility] Rx#: [id number] Oral 1900 TPN/PPN 222 .9NS 222 Output: Urine 1400 3000 Uretheral ([place]) 1400 1200 Other: Voiding Method Indwelling Catheter Indwelling Catheter # Bowel Movements 1 1 - Labs CBC & Chem 7: 01/28/21 06:21 01/28/21 06:21 Labs: Abnormal Lab Results - Last 24 Hours (Table) 01/27/21 01/27/21 01/27/21 Range/Units 07:22 07:22 11:40 WBC (3.8-10.6) k/uL RBC (4.30-5.90) m/uL Hgb (13.0-17.5) gm/dL Hct (39.0-53.0) % Plt Count (150-450) k/uL Neutrophils # (1.3-7.7) k/uL Lymphocytes # (1.0-4.8) k/uL Monocytes # (0-1.0) k/uL APTT 57.6 H (22.0-30.0) sec Sodium (137-145) mmol/L Chloride (98-107) mmol/L Carbon Dioxide 34 H (22-30) mmol/L BUN 62 H (9-20) mg/dL Creatinine (0.66-1.25) mg/dL Glucose 137 H (74-99) mg/dL POC Glucose (mg/dL) 432 H (75-99) mg/dL 01/27/21 01/27/21 01/28/21 Range/Units 16:34 23:23 05:18 WBC (3.8-10.6) k/uL RBC (4.30-5.90) m/uL Hgb (13.0-17.5) gm/dL Hct (39.0-53.0) % Plt Count (150-450) k/uL Neutrophils # (1.3-7.7) k/uL Lymphocytes # (1.0-4.8) k/uL Monocytes # (0-1.0) k/uL APTT (22.0-30.0) sec Sodium (137-145) mmol/L Chloride (98-107) mmol/L Carbon Dioxide (22-30) mmol/L BUN (9-20) mg/dL Creatinine (0.66-1.25) mg/dL Glucose (74-99) mg/dL POC Glucose (mg/dL) 134 H 134 H 169 H (75-99) mg/dL 01/28/21 01/28/21 01/28/21 Range/Units 06:21 06:21 06:21 WBC 33.9 H (3.8-10.6) k/uL RBC 3.88 L (4.30-5.90) m/uL Hgb 11.8 L (13.0-17.5) gm/dL Hct 37.9 L (39.0-53.0) % Plt Count 461 H (150-450) k/uL Neutrophils # 31.6 H (1.3-7.7) k/uL Lymphocytes # 0.3 L (1.0-4.8) k/uL Monocytes # 1.6 H (0-1.0) k/uL APTT 73.6 H (22.0-30.0) sec Sodium 136 L (137-145) mmol/L Chloride 96 L (98-107) mmol/L Carbon Dioxide 36 H (22-30) mmol/L BUN 68 H (9-20) mg/dL Creatinine 1.26 H (0.66-1.25) mg/dL Glucose 137 H (74-99) mg/dL POC Glucose (mg/dL) (75-99) mg/dL
[2021-01-28 11:56] LABS: Glucose,Whole Blood 255 mg/dL (75-99)
--- NOTE | 2021-01-28 12:12 | P.PN ---
Subjective Progress Note Date: 01/28/21 Patient seen and examined sitting up in bed. He is on 3 L nasal cannula. He denies any dental pain. He denies any chest pain. States there is some pain with palpation in the left lower extremity. He remains on IV heparin drip. Objective - Vital Signs Vital signs: Vital Signs Temp 98.2 F 01/28/21 08:00 Pulse 70 01/28/21 08:00 Resp 18 01/28/21 08:00 BP 168/78 01/28/21 08:00 Pulse Ox 98 01/28/21 08:00 Intake & Output 01/27/21 01/28/21 01/28/21 18:59 06:59 18:59 Intake Total 3366.259 456.061 194.952 Output Total 1400 3000 400 Balance 1966.259 -2543.939 -205.048 Weight 67.4 kg 67.4 kg Intake: IV 170 36.6 .9NS 120 Heparin Sod,Pork in 0.45% 36.6 NaCl 25,000 unit In 0.45 % NaCl 1 250ml.bag @ 12 UNITS/KG/HR 7.86 mls/hr IV .Q24H [facility] Rx#: [id number] Invasive Line 8 20 Invasive Line 9 30 Intake, IV Titration 1296.259 197.461 76.952 Amount Heparin Sod,Pork in 0.45% 233.759 197.461 76.952 NaCl 25,000 unit In 0.45 % NaCl 1 250ml.bag @ 12 UNITS/KG/HR 7.86 mls/hr IV .Q24H [facility] Rx#: [id number] Mvi, Adult No.4 with Vit 1062.5 K 10 ml Trace (Conc-1Ml/ Dose) 1 ml Sodium Phosphate 15 mmol Sodium Chloride 4Meq/ml Vial 60 meq Potassium Chloride 40 meq Magnesium Sulfate gm 0.75 gm Calcium Gluconate 1 gm In Amino Acids 5 %/Dextrose 20 % 1 ,000 ml @ 80 mls/hr IV . BY DURATION [facility] Rx#: [id number] Oral 1900 118 TPN/PPN 222 .9NS 222 Output: Urine 1400 3000 Uretheral ([place]) 1400 1200 Stool 400 Other: Voiding Method Indwelling Catheter Indwelling Catheter Indwelling Catheter # Bowel Movements 1 1 - Exam General appearance: The patient is alert, oriented, in no acute distress. HET: Head is normocephalic and atraumatic. Pupils are equal and reactive. Oropharynx is clear without lesions. Neck: Supple without lymphadenopathy. Trachea midline. Heart: S1 S2. Regular rate and rhythm. Lungs: Coarse breath sounds bilaterally and diminished. Abdomen: Soft, nontender, nondistended with bowel sounds. No peritoneal signs. No palpable organomegaly or masses. Extremities: Left TMA site well approximated with sutures. Dry gangrene left lower extremity. Warm to the touch with good capillary refill. Left calf tender to palpation. Neurological: No focal deficits. Alert and oriented 3. - Labs CBC & Chem 7: 01/28/21 06:21 01/28/21 06:21 Labs: Abnormal Lab Results - Last 24 Hours (Table) 01/27/21 01/27/21 01/28/21 Range/Units 16:34 23:23 05:18 WBC (3.8-10.6) k/uL RBC (4.30-5.90) m/uL Hgb (13.0-17.5) gm/dL Hct (39.0-53.0) % Plt Count (150-450) k/uL Neutrophils # (1.3-7.7) k/uL Lymphocytes # (1.0-4.8) k/uL Monocytes # (0-1.0) k/uL APTT (22.0-30.0) sec Sodium (137-145) mmol/L Chloride (98-107) mmol/L Carbon Dioxide (22-30) mmol/L BUN (9-20) mg/dL Creatinine (0.66-1.25) mg/dL Glucose (74-99) mg/dL POC Glucose (mg/dL) 134 H 134 H 169 H (75-99) mg/dL 01/28/21 01/28/21 01/28/21 Range/Units 06:21 06:21 06:21 WBC 33.9 H (3.8-10.6) k/uL RBC 3.88 L (4.30-5.90) m/uL Hgb 11.8 L (13.0-17.5) gm/dL Hct 37.9 L (39.0-53.0) % Plt Count 461 H (150-450) k/uL Neutrophils # 31.6 H (1.3-7.7) k/uL Lymphocytes # 0.3 L (1.0-4.8) k/uL Monocytes # 1.6 H (0-1.0) k/uL APTT 73.6 H (22.0-30.0) sec Sodium 136 L (137-145) mmol/L Chloride 96 L (98-107) mmol/L Carbon Dioxide 36 H (22-30) mmol/L BUN 68 H (9-20) mg/dL Creatinine 1.26 H (0.66-1.25) mg/dL Glucose 137 H (74-99) mg/dL POC Glucose (mg/dL) (75-99) mg/dL 01/28/21 Range/Units 11:44 WBC (3.8-10.6) k/uL RBC (4.30-5.90) m/uL Hgb (13.0-17.5) gm/dL Hct (39.0-53.0) % Plt Count (150-450) k/uL Neutrophils # (1.3-7.7) k/uL Lymphocytes # (1.0-4.8) k/uL Monocytes # (0-1.0) k/uL APTT (22.0-30.0) sec Sodium (137-145) mmol/L Chloride (98-107) mmol/L Carbon Dioxide (22-30) mmol/L BUN (9-20) mg/dL Creatinine (0.66-1.25) mg/dL Glucose (74-99) mg/dL POC Glucose (mg/dL) 255 H (75-99) mg/dL Assessment and Plan Assessment: 1. Left lower extremity dry gangrene 2. Failed left lower extremity bypass 3. Acute hypoxic respiratory failure on O2, positive sputum cultures 4. Leukocytosis, improving 5. Small bowel obstruction, improved Plan: 1. Anesthesia services consulted regarding spinal anesthesia, also appreciate their recommendations on holding anticoagulation 2. Left [id number] amputation tentatively planned for tomorrow or Thursday 3. Continue current medical management 4. Nothing by mouth after midnight 5. Further recommendations on holding heparin per anesthesia services The impression and plan of care has been dictated as directed. Dr. Cevallos I performed a history and examination of this patient, discussed the same with the dictator. I agree with the dictator's note ,documented as a scribe. Any additional findings or plans will be noted.
[2021-01-28] MEDS ORDERED: cloNIDine HCL 0.1 MG TAB PO PRN (15:06)
--- NOTE | 2021-01-28 16:30 | PN ---
PROGRESS NOTE DATE OF SERVICE: 01/28/2021 This 65-year-old gentleman who was admitted with multiple medical problems, also had necrotic leg, ischemic leg. Surgery is being planned tomorrow. The patient has severe pain. Patient also had aspiration pneumonia, possibly secondary to possibly multifactorial at this time. The most recent chest x-ray today was reported as bibasilar effusions and atelectasis. The patient's pulse ox is being maintained at 98% on 4 L. No chest pain. No palpitations. No fever. PHYSICAL EXAMINATION: Alert and oriented x2. Pulse 70. Blood pressure is 160/78. Respiration 18. Temperature normal. Pulse ox 98% on 4 L. HEENT: Conjunctivae normal. Neck: No JVD. CARDIOVASCULAR: S1, S2 muffled. RESPIRATORY: Breath sounds diminished in the bases. A few scattered rhonchi and crackles. ABDOMEN: Soft. Nontender. Nervous system: No focal deficits. Left leg significant infection present. LABS: Reviewed. ASSESSMENT: 1. Acute severe left leg infection with necrotic lesions possibly ischemic leg with acute severe sepsis septic shock and severe hypotension, present on admission. 2. Atrial fibrillation, fast ventricular rate. 3. Change in mental status, acute metabolic encephalopathy multifactorial. 4. Acute bilateral aspiration pneumonia with acute hypoxic respiratory failure, monitored in ICU. 5. On TPN. 6. Vomiting, coffee-grounds emesis and possible upper bleeding, improved. 7. Anemia, acute blood loss anemia possibly. 8. Abdominal distention with possible acute small-bowel obstruction versus ileus, present on admission, improved. 9. Hyponatremia. 10.Hypokalemia. 11.History of recent transmetatarsal amputation as well as bypass surgery 3 weeks ago at [facility] in the left leg. 12.Peripheral vascular disease. 13.History of coronary artery disease. 14.Chronic anemia. 15.Acute kidney injury with acute tubular necrosis. 16.Chronic obstructive pulmonary disease. 17.Peripheral vascular disease. 18.Hypertension. 19.Chronic debility. 20.History of protein-calorie malnutrition. 21.Sacral decubitus ulcer stage III. 22.History of nicotine dependence. 23.History of GI and DVT prophylaxis. 24.Hyponatremia. 25.Hypoalbuminemia with mild protein-calorie malnutrition. 26.Increased WBC. 27.NO CODE, NO CPR, NO VENT. RECOMMENDATIONS AND DISCUSSION: I recommend to continue current medications, management and symptomatic treatment. Otherwise, the patient is cleared for surgery with some added risk. Otherwise, continue to monitor. We will add clonidine to the current regimen. Continue the rest of medications. Guarded prognosis. Further recommendations to follow. MMODL / IJN: [id number] /
[2021-01-28] MEDS: FAT EMULSION 20% 500 ML in EMPTY BAG 1 BAG IV SCH (16:35)
[2021-01-28] MEDS: cloNIDine HCL 0.1 MG TAB PO SCH ×3 (17:08→20:32)
[2021-01-28 18:28] LABS: Glucose,Whole Blood 169 mg/dL (75-99)
[2021-01-28] MEDS: ERTAPENEM 1 GM in SODIUM CHLORIDE 0.9% 50 ML IVPB SCH (18:48)
--- NOTE | 2021-01-28 21:57 | PN ---
PROGRESS NOTE DATE OF SERVICE: 01/28/2021 REASON FOR FOLLOWUP: 1. Gram-negative pneumonia. 2. Left foot ischemic necrotic changes. INTERVAL HISTORY: The patient is afebrile, has been breathing comfortably, hemodynamically stable. No worsening pain to the foot or any diarrhea. PHYSICAL EXAMINATION: Blood pressure 130/64 with a pulse of 129, temperature 98.7. He is 94% on 2 L nasal cannula. General description is an elderly male lying in bed in no distress. Respiratory system: Unlabored breathing, decreased breath sounds in the base. No wheeze. Heart S1, S2. Regular rate and rhythm. Abdomen soft, no tenderness. Left foot with necrotic changes but no worsening, no redness. LABS: Hemoglobin is 11.8, white count 33.9, BUN of 68, creatinine is 1.06. DIAGNOSTIC IMPRESSION AND PLAN: 1. Patient with ESBL Klebsiella pneumonia, for which the patient is currently covered with Invanz; to continue. 2. Patient with left foot ischemic changes. No cellulitis. Continue with supportive treatment. 3. Patient with elevated white count, more likely related to the steroids, as no evidence of any worsening condition. Cultures will be repeated as well as inflammatory markers. Medication will be adjusted if needed. Continue supportive care. MMODL / IJN: [id number] /
[2021-01-29 00:18] LABS: Glucose,Whole Blood 162 mg/dL (75-99)
[2021-01-29] MEDS: INSULIN ASPART (NovoLOG) 100 UNIT/ML VIAL SQ SCH ×4 (00:18→19:20)
[2021-01-29] MEDS: MORPHINE SULFATE IR 15 MG TABLET PO SCH ×3 (00:18→14:56)
[2021-01-29] MEDS: GABAPENTIN 300 MG CAP PO SCH ×4 (00:19→23:38)
[2021-01-29] MEDS: HEPARIN SOD,PORK IN 0.45% NACL 25,000 UNIT in 0.45% NACL 1 250ML.BAG IV SCH (00:40)
[2021-01-29] MEDS: HYDROmorphone 0.5 MG/0.5 ML SYRINGE IVP PRN (03:17)
[2021-01-29] MEDS: 1: MVI, ADULT NO.4 WITH VIT K 10 ML, TRACE (CONC-1ML/DOSE) 1 ML, SODIUM PHOSPHATE 15 MMO IV SCH ×16 (06:19→21:36)
[2021-01-29 06:21] LABS: Glucose,Whole Blood 177 mg/dL (75-99)
[2021-01-29 08:50] LABS: Basophils # (A) 0.1 k/uL (0-0.2); Basophils % (A) 0 %; Eosinophils # (A) 0.1 k/uL (0-0.7); Eosinophils % (A) 0 %; HCT 39.9 % (39.0-53.0); HGB 12.9 gm/dL (13.0-17.5); Lymphocytes # (A) 0.3 k/uL (1.0-4.8); Lymphocytes % (A) 1 %; MCHC 32.4 g/dL (31.0-37.0); MCV 95.9 fL (80.0-100.0); Mean Platelet Volume 8.1; Monocytes # (A) 1.7 k/uL (0-1.0); Monocytes % (A) 5 %; Neutrophils # (A) 31.1 k/uL (1.3-7.7); Neutrophils % (A) 93 %; Platelet Count 574 k/uL (150-450); RBC 4.16 m/uL (4.30-5.90); RDW 15.5 % (11.5-15.5); WBC 33.5 k/uL (3.8-10.6)
[2021-01-29 09:24] LABS: C Reactive Protein 2.1 mg/dL (<1.0); Calcium 9.1 mg/dL (8.4-10.2); Magnesium 2.2 mg/dL (1.6-2.3); Phosphorus 4.2 mg/dL (2.5-4.5); Potassium 4.6 mmol/L (3.5-5.1)
[2021-01-29] MEDS: SYMBICORT 80-4.5 MCG INHALER INHALATION SCH ×2 (09:33→19:22)
[2021-01-29] MEDS: IPRATROPIUM-ALBUTEROL 3 ML NEB INHALATION SCH ×4 (09:33→19:22)
[2021-01-29] MEDS: PANTOPRAZOLE 40 MG/10 ML VIAL IVP SCH ×2 (09:57→21:35)
[2021-01-29] MEDS: METOPROLOL TARTRATE 50 MG TAB PO SCH ×2 (09:57→21:35)
[2021-01-29] MEDS: AMIODARONE 200 MG TAB PO SCH ×2 (09:57→21:35)
[2021-01-29] MEDS: DOCUSATE 100 MG CAP PO SCH (09:57)
[2021-01-29] MEDS: cloNIDine HCL 0.1 MG TAB PO SCH ×3 (09:57→21:35)
[2021-01-29] MEDS: ASPIRIN 81 MG PO SCH (09:57)
[2021-01-29] MEDS: methylPREDNISolone SOD SUCCI 40 MG/ML 1 ML VIAL IV SCH ×2 (09:58→21:35)
[2021-01-29] MEDS: FUROSEMIDE 10 MG/ML 2 ML VIAL IV SCH (10:10)
--- NOTE | 2021-01-29 11:35 | P.PN ---
Subjective Progress Note Date: 01/29/21 CHIEF COMPLAINT: Fever HISTORY OF PRESENT ILLNESS: Surgical service is following his small bowel obstruction. Patient's ostomy is functioning. Patient lying in bed comfortably. No complaints of abdominal pain. He denies any nausea or vomiting. Tolerating full liquid diet. Patient scheduled for a left above knee amputation tomorrow with vascular surgery. Afebrile. WBC 33.5 Patient seen and examined with Dr. Medina PHYSICAL EXAM: VITAL SIGNS: Reviewed. GENERAL: Well-developed in no acute distress. HEENT: No sclera icterus. Extraocular movements grossly intact. Moist buccal mucosa. Head is atraumatic, normocephalic. ABDOMEN: Soft. Nondistended Nontender. ileostomy with stool NEUROLOGIC: Alert and oriented. Cranial nerves II through XII grossly intact. ASSESSMENT: 1. Small bowel obstruction improved 2. Recurrent small bowel obstruction and underlying SMA syndrome 3. Ischemic left leg. Scheduled for left above-knee amputation with vascular surgery PLAN: -Continue supportive care -No plans for surgical intervention from general surgery standpoint -Continue supportive care -Continue full liquid diet -Continue TPN for nutrition support until oral intake shows improvement Physician Mail Clerks Supervisor note has been reviewed by physician. Signing provider agrees with the documented findings, assessment, and plan of care. Objective - Vital Signs Vital signs: Vital Signs Temp 97.7 F 01/29/21 08:00 Pulse 76 01/29/21 08:00 Resp 19 01/29/21 08:00 BP 117/59 01/29/21 08:00 Pulse Ox 92 L 01/29/21 08:00 Intake & Output 01/28/21 01/29/21 01/29/21 18:59 06:59 18:59 Intake Total 1377.153 53.347 Output Total 1800 1450 Balance -422.847 -1396.653 Weight 67.4 kg 69.4 kg Intake: Intake, IV Titration 1259.153 53.347 Amount Heparin Sod,Pork in 0.45% 196.653 53.347 NaCl 25,000 unit In 0.45 % NaCl 1 250ml.bag @ 12 UNITS/KG/HR 7.86 mls/hr IV .Q24H [facility] Rx#: [id number] Mvi, Adult No.4 with Vit 1062.5 K 10 ml Trace (Conc-1Ml/ Dose) 1 ml Sodium Phosphate 15 mmol Sodium Chloride 4Meq/ml Vial 60 meq Potassium Chloride 40 meq Magnesium Sulfate gm 0.75 gm Calcium Gluconate 1 gm In Amino Acids 5 %/Dextrose 20 % 1 ,000 ml @ 80 mls/hr IV . BY DURATION [facility] Rx#: [id number] Oral 118 Output: Urine 1000 1050 Stool 800 400 Other: Voiding Method Indwelling Catheter Indwelling Catheter Indwelling Catheter - Labs CBC & Chem 7: 01/29/21 07:50 01/29/21 07:50 Labs: Abnormal Lab Results - Last 24 Hours (Table) 01/28/21 01/28/21 01/28/21 Range/Units 11:44 16:53 18:08 WBC (3.8-10.6) k/uL RBC (4.30-5.90) m/uL Hgb (13.0-17.5) gm/dL Plt Count (150-450) k/uL Neutrophils # (1.3-7.7) k/uL Lymphocytes # (1.0-4.8) k/uL Monocytes # (0-1.0) k/uL APTT 65.5 H (22.0-30.0) sec Sodium (137-145) mmol/L Chloride (98-107) mmol/L Carbon Dioxide (22-30) mmol/L BUN (9-20) mg/dL Glucose (74-99) mg/dL POC Glucose (mg/dL) 255 H 169 H (75-99) mg/dL C-Reactive Protein (<1.0) mg/dL 01/29/21 01/29/21 01/29/21 Range/Units 00:16 06:19 07:50 WBC (3.8-10.6) k/uL RBC (4.30-5.90) m/uL Hgb (13.0-17.5) gm/dL Plt Count (150-450) k/uL Neutrophils # (1.3-7.7) k/uL Lymphocytes # (1.0-4.8) k/uL Monocytes # (0-1.0) k/uL APTT (22.0-30.0) sec Sodium 136 L (137-145) mmol/L Chloride 95 L (98-107) mmol/L Carbon Dioxide 33 H (22-30) mmol/L BUN 73 H (9-20) mg/dL Glucose 116 H (74-99) mg/dL POC Glucose (mg/dL) 162 H 177 H (75-99) mg/dL C-Reactive Protein 2.1 H (<1.0) mg/dL 01/29/21 01/29/21 Range/Units 07:50 07:50 WBC 33.5 H (3.8-10.6) k/uL RBC 4.16 L (4.30-5.90) m/uL Hgb 12.9 L (13.0-17.5) gm/dL Plt Count 574 H (150-450) k/uL Neutrophils # 31.1 H (1.3-7.7) k/uL Lymphocytes # 0.3 L (1.0-4.8) k/uL Monocytes # 1.7 H (0-1.0) k/uL APTT 58.0 H (22.0-30.0) sec Sodium (137-145) mmol/L Chloride (98-107) mmol/L Carbon Dioxide (22-30) mmol/L BUN (9-20) mg/dL Glucose (74-99) mg/dL POC Glucose (mg/dL) (75-99) mg/dL C-Reactive Protein (<1.0) mg/dL
[2021-01-29 12:04] LABS: Glucose,Whole Blood 193 mg/dL (75-99)
--- NOTE | 2021-01-29 12:07 | P.PN ---
Subjective Progress Note Date: 01/29/21 Patient seen and examined sitting up in bed. He is on 3 L nasal cannula. He denies any dental pain. He denies any chest pain. States there is some pain with palpation in the left lower extremity. He remains on IV heparin drip. Objective - Vital Signs Vital signs: Vital Signs Temp 97.8 F 01/29/21 11:46 Pulse 81 01/29/21 11:46 Resp 18 01/29/21 11:46 BP 140/90 01/29/21 11:46 Pulse Ox 92 L 01/29/21 11:46 Intake & Output 01/28/21 01/29/21 01/29/21 18:59 06:59 18:59 Intake Total 1377.153 53.347 Output Total 1800 1450 Balance -422.847 -1396.653 Weight 67.4 kg 69.4 kg Intake: Intake, IV Titration 1259.153 53.347 Amount Heparin Sod,Pork in 0.45% 196.653 53.347 NaCl 25,000 unit In 0.45 % NaCl 1 250ml.bag @ 12 UNITS/KG/HR 7.86 mls/hr IV .Q24H [facility] Rx#: [id number] Mvi, Adult No.4 with Vit 1062.5 K 10 ml Trace (Conc-1Ml/ Dose) 1 ml Sodium Phosphate 15 mmol Sodium Chloride 4Meq/ml Vial 60 meq Potassium Chloride 40 meq Magnesium Sulfate gm 0.75 gm Calcium Gluconate 1 gm In Amino Acids 5 %/Dextrose 20 % 1 ,000 ml @ 80 mls/hr IV . BY DURATION [facility] Rx#: [id number] Oral 118 Output: Urine 1000 1050 Stool 800 400 Other: Voiding Method Indwelling Catheter Indwelling Catheter Indwelling Catheter - Exam General appearance: The patient is alert, oriented, in no acute distress. HET: Head is normocephalic and atraumatic. Pupils are equal and reactive. Oropharynx is clear without lesions. Neck: Supple without lymphadenopathy. Trachea midline. Heart: S1 S2. Regular rate and rhythm. Lungs: Diminished. Abdomen: Soft, nontender, nondistended with bowel sounds. No peritoneal signs. No palpable organomegaly or masses. Extremities: Left TMA site well approximated with sutures. Dry gangrene left lower extremity. Warm to the touch with good capillary refill. Left calf tender to palpation. Neurological: No focal deficits. Alert and oriented 3. - Labs CBC & Chem 7: 01/29/21 07:50 01/29/21 07:50 Labs: Abnormal Lab Results - Last 24 Hours (Table) 01/28/21 01/28/21 01/29/21 Range/Units 16:53 18:08 00:16 WBC (3.8-10.6) k/uL RBC (4.30-5.90) m/uL Hgb (13.0-17.5) gm/dL Plt Count (150-450) k/uL Neutrophils # (1.3-7.7) k/uL Lymphocytes # (1.0-4.8) k/uL Monocytes # (0-1.0) k/uL APTT 65.5 H (22.0-30.0) sec Sodium (137-145) mmol/L Chloride (98-107) mmol/L Carbon Dioxide (22-30) mmol/L BUN (9-20) mg/dL Glucose (74-99) mg/dL POC Glucose (mg/dL) 169 H 162 H (75-99) mg/dL C-Reactive Protein (<1.0) mg/dL 01/29/21 01/29/21 01/29/21 Range/Units 06:19 07:50 07:50 WBC (3.8-10.6) k/uL RBC (4.30-5.90) m/uL Hgb (13.0-17.5) gm/dL Plt Count (150-450) k/uL Neutrophils # (1.3-7.7) k/uL Lymphocytes # (1.0-4.8) k/uL Monocytes # (0-1.0) k/uL APTT 58.0 H (22.0-30.0) sec Sodium 136 L (137-145) mmol/L Chloride 95 L (98-107) mmol/L Carbon Dioxide 33 H (22-30) mmol/L BUN 73 H (9-20) mg/dL Glucose 116 H (74-99) mg/dL POC Glucose (mg/dL) 177 H (75-99) mg/dL C-Reactive Protein 2.1 H (<1.0) mg/dL 01/29/21 01/29/21 Range/Units 07:50 12:02 WBC 33.5 H (3.8-10.6) k/uL RBC 4.16 L (4.30-5.90) m/uL Hgb 12.9 L (13.0-17.5) gm/dL Plt Count 574 H (150-450) k/uL Neutrophils # 31.1 H (1.3-7.7) k/uL Lymphocytes # 0.3 L (1.0-4.8) k/uL Monocytes # 1.7 H (0-1.0) k/uL APTT (22.0-30.0) sec Sodium (137-145) mmol/L Chloride (98-107) mmol/L Carbon Dioxide (22-30) mmol/L BUN (9-20) mg/dL Glucose (74-99) mg/dL POC Glucose (mg/dL) 193 H (75-99) mg/dL C-Reactive Protein (<1.0) mg/dL Assessment and Plan Assessment: 1. Left lower extremity dry gangrene 2. Failed left lower extremity bypass 3. Acute hypoxic respiratory failure on O2, positive sputum cultures 4. Leukocytosis, improving 5. Small bowel obstruction, improved Plan: 1. Anesthesia services consulted regarding spinal anesthesia. Recommendation is to hold Heparin 4 hours prior to surgery. 2. Left [id number] amputation tentatively planned tomorrow morning. Procedure discussed with patient including risks and benefits. Patient is willing to proceed. 3. Continue current medical management 4. Nothing by mouth after midnight The impression and plan of care has been dictated as directed. Dr. Cevallos I performed a history and examination of this patient, discussed the same with the dictator. I agree with the dictator's note ,documented as a scribe. Any additional findings or plans will be noted.
--- NOTE | 2021-01-29 13:33 | P.PN ---
Subjective HISTORY OF PRESENT ILLNESS: This is a 65-year-old male with a past medical history significant for paroxysmal atrial fibrillation not on anticoagulation secondary to GI bleed, coronary artery disease with previous stenting to the RCA in 2018, nicotine dependence, and recent vascular surgery to left lower extremity.Recently underwent surgery to his left lower extremity at [facility] a few weeks ago. 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 We have been asked to see the patient in consultation for afib and CHF. Echocardiogram completed revealing ejection fraction 40-45%. Mild mitral regurgitation. Mild tricuspid re gurgitation. Patient examined at the bedside, no acute distress. He is confused. He denies any chest pain. Does endorse some shortness of breath. No acute events overnight. Patient is in and out of atrial fibrillation, HR are better controlled his morning in 80s, occasionally does increase to the 110s-120s. He's currently maintained on amiodarone 200 mg twice a day, aspirin 81mg daily, IV Lasix 20 mg twice a day, IV heparin, metoprolol tartrate 100 mg twice a day. On TPN. He has had 3.2L output over the past 24 hours. Labs, WBC 33.5, hemoglobin 12.9, platelets 574, sodium 136, potassium 4.6, BUN 73, serum creatinine 1.2, magnesium 2.2 PHYSICAL EXAM: VITAL SIGNS: Reviewed. GENERAL: Well-developed in no acute distress. HEENT: Neck supple. No JVD LUNGS: Respirations even and unlabored. Lungs essentially clear to auscultation bilaterally. HEART: Irregular rate and rhythm. S1 and S2 heard. ABDOMEN: Soft. Nondistended. Nontender. EXTREMITIES: Left toe amputations noted. Patient with necrotic tissue to LILLIAN. No lower extremity edema NEUROLOGIC: Awake and alert. Oriented x 2-3 ASSESSMENT: Chest pain, troponin negative x 3 Small bowel obstruction Acute diastolic congestive heart failure Paroxysmal atrial fibrillation with RVR not on anticoagulation secondary to GI bleed, currently on IV heparin drip Coronary artery disease with previous stenting to the RCA in 2018 Acute hypoxic respiratory failure with possible aspiration pneumonia and bilateral pleural effusions Recent surgery to left lower extremity Left lower extremity dry gangrene Nicotine dependence Severe peripheral vessel occlusive disease affecting left lower extremity patient may require left below-knee amputation. PLAN: Discontinue IV Lasix, start PO Lasix 20mg daily Continue amiodarone and metoprolol tartarte for rate control, adjust as needed Continue IV heparin drip, due to Left mwyid-aym-[id number] amputation tentatively planned tomorrow morning, patient will need supervisor intermediates anticoagulation for atrial fibrillation Monitor renal function and electrolytes Continue cardiac telemetry Further recommendations based on clinical course Nurse practitioner note has been reviewed by physician. Signing provider agrees with the documented findings, assessment, and plan of care. Objective - Vital Signs Vital signs: Vital Signs Temp 97.8 F 01/29/21 11:46 Pulse 81 01/29/21 11:46 Resp 18 01/29/21 11:46 BP 140/90 01/29/21 11:46 Pulse Ox 92 L 01/29/21 11:46 Intake & Output 01/28/21 01/29/21 01/29/21 18:59 06:59 18:59 Intake Total 1377.153 53.347 Output Total 1800 1450 Balance -422.847 -1396.653 Weight 67.4 kg 69.4 kg Intake: Intake, IV Titration 1259.153 53.347 Amount Heparin Sod,Pork in 0.45% 196.653 53.347 NaCl 25,000 unit In 0.45 % NaCl 1 250ml.bag @ 12 UNITS/KG/HR 7.86 mls/hr IV .Q24H [facility] Rx#: [id number] Mvi, Adult No.4 with Vit 1062.5 K 10 ml Trace (Conc-1Ml/ Dose) 1 ml Sodium Phosphate 15 mmol Sodium Chloride 4Meq/ml Vial 60 meq Potassium Chloride 40 meq Magnesium Sulfate gm 0.75 gm Calcium Gluconate 1 gm In Amino Acids 5 %/Dextrose 20 % 1 ,000 ml @ 80 mls/hr IV . BY DURATION [facility] Rx#: [id number] Oral 118 Output: Urine 1000 1050 Stool 800 400 Other: Voiding Method Indwelling Catheter Indwelling Catheter Indwelling Catheter - Labs CBC & Chem 7: 01/29/21 07:50 01/29/21 07:50 Labs: Abnormal Lab Results - Last 24 Hours (Table) 01/28/21 01/28/21 01/29/21 Range/Units 16:53 18:08 00:16 WBC (3.8-10.6) k/uL RBC (4.30-5.90) m/uL Hgb (13.0-17.5) gm/dL Plt Count (150-450) k/uL Neutrophils # (1.3-7.7) k/uL Lymphocytes # (1.0-4.8) k/uL Monocytes # (0-1.0) k/uL APTT 65.5 H (22.0-30.0) sec Sodium (137-145) mmol/L Chloride (98-107) mmol/L Carbon Dioxide (22-30) mmol/L BUN (9-20) mg/dL Glucose (74-99) mg/dL POC Glucose (mg/dL) 169 H 162 H (75-99) mg/dL C-Reactive Protein (<1.0) mg/dL 01/29/21 01/29/21 01/29/21 Range/Units 06:19 07:50 07:50 WBC (3.8-10.6) k/uL RBC (4.30-5.90) m/uL Hgb (13.0-17.5) gm/dL Plt Count (150-450) k/uL Neutrophils # (1.3-7.7) k/uL Lymphocytes # (1.0-4.8) k/uL Monocytes # (0-1.0) k/uL APTT 58.0 H (22.0-30.0) sec Sodium 136 L (137-145) mmol/L Chloride 95 L (98-107) mmol/L Carbon Dioxide 33 H (22-30) mmol/L BUN 73 H (9-20) mg/dL Glucose 116 H (74-99) mg/dL POC Glucose (mg/dL) 177 H (75-99) mg/dL C-Reactive Protein 2.1 H (<1.0) mg/dL 01/29/21 01/29/21 Range/Units 07:50 12:02 WBC 33.5 H (3.8-10.6) k/uL RBC 4.16 L (4.30-5.90) m/uL Hgb 12.9 L (13.0-17.5) gm/dL Plt Count 574 H (150-450) k/uL Neutrophils # 31.1 H (1.3-7.7) k/uL Lymphocytes # 0.3 L (1.0-4.8) k/uL Monocytes # 1.7 H (0-1.0) k/uL APTT (22.0-30.0) sec Sodium (137-145) mmol/L Chloride (98-107) mmol/L Carbon Dioxide (22-30) mmol/L BUN (9-20) mg/dL Glucose (74-99) mg/dL POC Glucose (mg/dL) 193 H (75-99) mg/dL C-Reactive Protein (<1.0) mg/dL
[2021-01-29] MEDS ORDERED: MIDAZOLAM 2 MG/2 ML VIAL IV PRN (15:40)
[2021-01-29] MEDS ORDERED: ONDANSETRON 4 MG/2 ML VIAL IVP ONE (15:40)
[2021-01-29] MEDS ORDERED: LIDOCAINE 1% (10MG/ML) FOR IV START INTRADERMA PRN (15:40)
[2021-01-29] MEDS: FUROSEMIDE 20 MG TAB PO SCH (17:00)
[2021-01-29] MEDS: ERTAPENEM 1 GM in SODIUM CHLORIDE 0.9% 50 ML IVPB SCH (17:00)
[2021-01-29 18:09] LABS: Glucose,Whole Blood 173 mg/dL (75-99)
--- NOTE | 2021-01-29 18:57 | PN ---
PROGRESS NOTE DATE OF SERVICE: 01/29/2021 This 65-year-old gentleman who was admitted with acute severe left leg infection with necrotic lesions is being closely monitored. No chest pain. No palpitations. No fever. PHYSICAL EXAMINATION: Alert and oriented x3. Pulse is 129, blood pressure 120/84, respiration 17, temperature 98.4, pulse ox 94% on 3 L. HEENT: Conjunctivae normal. NECK: No jugular venous distention. CARDIOVASCULAR: S1, S2 muffled. RESPIRATION: Breath sounds diminished at the bases. A few scattered rhonchi and crackles. ABDOMEN: Soft, nontender. NERVOUS SYSTEM: No focal deficit. LABS: WBC 33.5, hemoglobin 12.9 and sodium 136. ASSESSMENT: 1. Acute severe left leg infection with necrotic lesions, possible ischemic leg with acute severe sepsis, septic shock and severe hypotension, present on admission. 2. Atrial fibrillation with fast ventricular rate. 3. Change in mental status, acute metabolic encephalopathy, multifactorial. 4. Acute bilateral aspiration pneumonia with acute hypoxic respiratory failure, monitored in ICU. 5. On TPN. 6. Vomiting, coffee-ground emesis and possible upper GI bleeding, improved. 7. Anemia, acute blood loss anemia possibly. 8. Abdominal distention with possible acute small-bowel obstruction versus ileus, present on admission, improved. 9. Hyponatremia. 10.Hypokalemia. 11.History of recent transmetatarsal amputation as well as bypass surgery 3 weeks ago at [facility] in the left leg. 12.Peripheral vascular disease. 13.History of coronary artery disease. 14.Chronic anemia. 15.Acute kidney injury with acute tubular necrosis. 16.Chronic obstructive pulmonary disease. 17.Peripheral vascular disease. 18.Hypertension. 19.Chronic debility. 20.History of protein-calorie malnutrition. 21.Sacral decubitus ulcer, stage III. 22.History of nicotine dependence. 23.History of GI and DVT prophylaxis. 24.Hyponatremia. 25.Hypoalbuminemia with mild protein-calorie malnutrition. 26.Increased white count. 27.NO CODE, NO CPR, NO VENT. RECOMMENDATIONS AND DISCUSSION: I recommend to continue current medications, continue with the monitoring, symptomatic treatment. Otherwise at this time I would recommend repeat labs. The white count is elevated up to 33.5, possibly secondary to IV steroids, which are being tapered off at this time. Otherwise, repeat labs and possible surgery. Guarded prognosis. Further recommendations to follow. MMODL / IJN: [id number] /
--- NOTE | 2021-01-29 22:59 | PN ---
PROGRESS NOTE DATE OF SERVICE: 01/29/2021 REASON FOR FOLLOWUP: Pneumonia and left foot ischemia. INTERVAL HISTORY: The patient is afebrile. The patient is currently breathing comfortably. Denies having any chest pain or shortness of breath or worsening cough. No abdominal pain or any worsening pain to the left foot. PHYSICAL EXAMINATION: Blood pressure 132/84 with a pulse of 127, temperature 98.8. He is 96% on 3 L nasal cannula. General description is an elderly male lying in bed in no distress. Respiratory system: Unlabored breathing, decreased breath sounds at base. No wheeze. Heart S1, S2. Regular rate and rhythm. Abdomen soft, no tenderness. LABS: Hemoglobin is 12.1, white count 33.5. BUN of 73, creatinine 1.21. DIAGNOSTIC IMPRESSION AND PLAN: 1. Patient with Gram-negative pneumonia. Sputum is positive for ESBL Klebsiella. Patient is covered with Invanz; to continue. 2. Patient with left foot ischemia. Plan for a left -knee amputation tomorrow as per discussion with Vascular Surgery. 3. Elevated white count, more likely steroid effect, as no evidence of any worsening respiratory status. MMODL / IJN: [id number] /
[2021-01-30 00:20] LABS: Glucose,Whole Blood 172 mg/dL (75-99)
[2021-01-30] MEDS: INSULIN ASPART (NovoLOG) 100 UNIT/ML VIAL SQ SCH ×4 (01:00→19:00)
[2021-01-30] MEDS: HYDROmorphone 0.5 MG/0.5 ML SYRINGE IVP PRN ×2 (05:37→21:23)
[2021-01-30 06:15] LABS: Glucose,Whole Blood 207 mg/dL (75-99)
[2021-01-30 06:45] LABS: Basophils # (A) 0.1 k/uL (0-0.2); Basophils % (A) 0 %; Eosinophils % (A) 0 %; HCT 37.3 % (39.0-53.0); HGB 11.5 gm/dL (13.0-17.5); Hypochromasia Slight; Lymphocytes # (A) 0.2 k/uL (1.0-4.8); Lymphocytes % (A) 1 %; MCH 30.3 pg (25.0-35.0); MCHC 30.9 g/dL (31.0-37.0); MCV 98.2 fL (80.0-100.0); Macrocytosis Slight; Mean Platelet Volume 8.2; Monocytes # (A) 1.2 k/uL (0-1.0); Monocytes % (A) 4 %; Neutrophils % (A) 95 %; Platelet Count 417 k/uL (150-450); RDW 15.2 % (11.5-15.5); WBC 31.4 k/uL (3.8-10.6)
[2021-01-30 06:46] LABS: Albumin 2.8 g/dL (3.5-5.0); Magnesium 2.3 mg/dL (1.6-2.3); Phosphorus 4.2 mg/dL (2.5-4.5); Potassium 4.9 mmol/L (3.5-5.1)
[2021-01-30] MEDS ORDERED: HYDROmorphone 0.5 MG/0.5 ML SYRINGE IVP PRN (07:00)
[2021-01-30 07:02] LABS: Neutrophils # (A) 29.7 k/uL (1.3-7.7)
[2021-01-30] MEDS: METOPROLOL TARTRATE 50 MG TAB PO SCH ×2 (08:29→23:20)
[2021-01-30] MEDS: cloNIDine HCL 0.1 MG TAB PO SCH ×3 (09:08→21:23)
[2021-01-30] MEDS: GABAPENTIN 300 MG CAP PO SCH ×2 (09:08→16:28)
[2021-01-30] MEDS: ASPIRIN 81 MG PO SCH (09:08)
[2021-01-30] MEDS: AMIODARONE 200 MG TAB PO SCH ×2 (09:08→21:23)
[2021-01-30] MEDS: methylPREDNISolone SOD SUCCI 40 MG/ML 1 ML VIAL IV SCH ×2 (09:09→21:23)
[2021-01-30] MEDS: SYMBICORT 80-4.5 MCG INHALER INHALATION SCH ×2 (09:09→20:26)
[2021-01-30] MEDS: IPRATROPIUM-ALBUTEROL 3 ML NEB INHALATION SCH ×4 (09:09→20:26)
[2021-01-30] MEDS: DOCUSATE 100 MG CAP PO SCH (09:09)
[2021-01-30] MEDS: PANTOPRAZOLE 40 MG/10 ML VIAL IVP SCH ×2 (09:09→21:22)
[2021-01-30] MEDS: FUROSEMIDE 20 MG TAB PO SCH (09:09)
[2021-01-30 09:11] LABS: Glucose,Whole Blood 88 mg/dL (75-99)
[2021-01-30] MEDS ORDERED: LACTATED RINGERS 1,000 ML IV ONE (09:18)
[2021-01-30] MEDS ORDERED: MIDAZOLAM 2 MG/2 ML VIAL ONE (09:40)
[2021-01-30] MEDS ORDERED: KETAMINE 10 MG/ML 20 ML VIAL ONE (09:40)
[2021-01-30] MEDS ORDERED: ROPIVACAINE 5 MG/ML 30 ML VIAL ONE (09:40)
[2021-01-30] MEDS ORDERED: DEXAMETHASONE SOD PHOSPHATE 4 MG/ML 1 ML VIAL ONE (09:40)
--- NOTE | 2021-01-30 09:54 | P.PN ---
Progress Note - Text Progress Note Date: 01/30/21 Patient seen and examined yesterday. Long conversation with nephew in the room was had with patient about current situation and need for left leg amputation. Patient was alert and oriented at that time and expressed understanding of the surgery and consented to an above knee amputation. The medical and surgical teams have been in discussions with family and patient all of which are agreeable. This morning patient is less oriented and the leg has worsened. Discussed with his brother the importance of the surgery at this time. Brother has voiced consent as well as his step daughter Shanna. The surgery is deemed urgent/emergent due to the extent of the gangrene and will be taken this morning for amputation.
--- NOTE | 2021-01-30 10:08 | P.PN ---
Progress Note - Text Patient was not seen or examined, He is currently at his procedure of Left kepjp-abo-[id number] amputation. Telemetry reviewed, patient did go into atrial fibrillation with RVR briefly overnight, no meds were given. He spontaneously converted to sinus rhythm HR 70s on his own and maintained sinus mechanism. We will continue current medical management. Continue IV heparin for thromboembolism protection. 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
--- NOTE | 2021-01-30 11:11 | P.ANPRN ---
Procedure Note - Anesthesia - Nerve Block Performed Left Adductor Canal Time Out Performed: Yes (Femoral nerve block, not adductor) Date of Procedure: 01/30/21 Procedure Start Time: : Procedure Stop Time: :26 Location of Patient: PreOp Indication: Acute Post-Operative Pain, Requested by Surgeon Sedation Type: Sedate with meaningful contact maintained Preparation: Sterile Prep, Sterile Dressing Position: Supine Catheter: None Needle Types: On-Q Needle Gauge: 20 Ultrasound used to visualize needle placement: Yes Ultrasound used to observe medication spread: Yes Injectate: 0.5% Ropivacaine (see comment for volume) (15 ml + decadron 4 mg) Blood Aspirated: No Pain Paresthesia on Injection Noted: No Resistance on Injection: Normal Image Stored and Saved: Yes Events: Uneventful and Well Tolerated Left Other (see comment) Single Time Out Performed: Yes Date of Procedure: 01/30/21 Procedure Start Time: : Procedure Stop Time: :38 Location of Patient: PreOp Indication: Acute Post-Operative Pain, Requested by Surgeon Sedation Type: Sedate with meaningful contact maintained Preparation: Sterile Prep, Sterile Dressing Position: Right Lateral Catheter: None Needle Types: On-Q Needle Gauge: 21 Ultrasound used to visualize needle placement: Yes Ultrasound used to observe medication spread: Yes Injectate: 0.5% Ropivacaine (see comment for volume) (15 ml + decadron 2 mg) Blood Aspirated: No Pain Paresthesia on Injection Noted: No Resistance on Injection: Normal Image Stored and Saved: Yes Events: Uneventful and Well Tolerated
--- NOTE | 2021-01-30 11:17 | P.OP ---
Date of Procedure: 01/30/21 Preoperative Diagnosis: Left lower extremity gangrene, critical limb ischemia, sepsis Postoperative Diagnosis: Same Procedure(s) Performed: Left above-knee amputation Anesthesia: MAC, regional Surgeon: Cameron Cevallos Estimated Blood Loss (ml): 100 Urine output (ml): 100 Pathology: none sent Condition: stable Disposition: PACU Indications for Procedure: 65-year-old gentleman who has been in the hospital for several days was previously in the ICU for pneumonia and septic shock was also found to have left lower extremity critical limb ischemia which she previously had intervention on at an outside hospital. He has had a femoral to distal bypass as well as transmetatarsal amputation in the past all of which had failed. When evaluated in the ICU his stump was gangrenous extending up to his midportion of his lower leg. Upon evaluation his pain extended to his calf and therefore a below-knee amputation was unable to be performed. He was treated medically at that time and improved to be discharged from the ICU to the floor. His white count was still elevated and was per the medical team and infectious disease and they felt it was partly due to his leg and recommended amputation. Over the last 24-48 hrs. his mental status has decreased therefore possibly becoming septic again and is taken to the operating room on an urgent/emergent basis for amputation. Description of Procedure: After written and informed consent was obtained from the patient's, his family and all risks, benefits and complications were described the patient was brought to the operative suite and laid in supine position. The area of the left leg up to the thigh was prepped and draped in usual sterile fashion after appropriate anesthetic was performed per the anesthesiologist. Timeout was performed in normal fashion and patient is currently on fafyw-nto-[id number] antibiotics. A fishmouth incision was then created above the knee proximally 2 finger breaths with a 10 blade scalpel. Dissection was then carried down to the fascia and the fascia was incised. The muscle was then dissected free down to the femur. Once the femur was exposed tissue was removed from the femur to allow for oscillating saw to be utilized. A lap sponge was then placed under the bone and utilizing the oscillating saw the bone was transected. Further dissection was then carried around the soft tissue and the popliteal artery and vein were located and suture ligated in normal fashion. Sciatic nerve was also transected in normal fashion and the leg was sent off at that time. The area was then copiously irrigated with anabolic solution. The fascia was then reapproximated with 2-0 Vicryl suture. The skin was then reapproximated with nolberto. The area was cleansed and dressings were placed. Patient tolerated the procedure well and was sent to PACU for recovery.
[2021-01-30 14:58] LABS: Glucose,Whole Blood 196 mg/dL (75-99)
[2021-01-30] MEDS: LACTATED RINGERS 1,000 ML IV SCH ×2 (15:07→16:53)
[2021-01-30] MEDS: HEPARIN SOD,PORK IN 0.45% NACL 25,000 UNIT in 0.45% NACL 1 250ML.BAG IV SCH (16:28)
[2021-01-30] MEDS: ERTAPENEM 1 GM in SODIUM CHLORIDE 0.9% 50 ML IVPB SCH (17:01)
[2021-01-30] MEDS: 1: MVI, ADULT NO.4 WITH VIT K 10 ML, TRACE (CONC-1ML/DOSE) 1 ML, SODIUM PHOSPHATE 15 MMO IV SCH ×8 (17:06)
[2021-01-30 18:10] LABS: Glucose,Whole Blood 184 mg/dL (75-99)
--- NOTE | 2021-01-30 21:34 | PN ---
PROGRESS NOTE DATE OF SERVICE: 01/30/2021 This 65-year-old gentleman who was admitted with acute severe left leg infection and necrosis also had sepsis and multiple other complications. Dr. Cevallos performed left above-knee amputation today. No chest pain. No palpitations. No fever. On exam, pulse is 61, blood pressure 120/62, respirations 16, temperature 97.5, pulse ox 94% on 3 L. HEENT: Conjunctivae normal. NECK: No jugular venous distention. CARDIOVASCULAR: S1, S2 muffled. RESPIRATION: Breath sounds diminished at the bases. ABDOMEN: Soft, nontender. LEGS: Status post above-knee amputation. Labs are noted. ASSESSMENT: 1. Acute severe left leg infection with necrotic lesions, possible ischemic leg, with acute severe sepsis and septic shock and severe hypotension, present on admission, status post left above-knee amputation. 2. Atrial fibrillation with a fast ventricular rate. 3. Change in mental status, acute metabolic encephalopathy, multifactorial. 4. Acute bilateral aspiration pneumonia with acute hypoxic respiratory failure, monitored in ICU. 5. On TPN. 6. Vomiting of coffee-ground emesis and possible upper GI bleeding, improved. 7. Anemia, acute blood loss anemia possibly, stable. 8. Abdominal distention, possible acute small-bowel obstruction versus ileus, present on admission, improved. 9. Hyponatremia. 10.Hypokalemia. 11.History of recent transmetatarsal amputation as well as bypass surgery 3 weeks ago and [facility] on the left leg. 12.Peripheral vascular disease, severe. 13.History of coronary artery disease. 14.Chronic anemia. 15.Acute kidney injury with acute tubular necrosis. 16.Chronic obstructive pulmonary disease. 17.Hypertension. 18.Chronic debility. 19.History of protein-calorie malnutrition. 20.Sacral decubitus ulcer, stage III. 21.History of nicotine dependence. 22.History of GI and DVT prophylaxis. 23.Hyponatremia. 24.Hypoalbuminemia with mild protein-calorie malnutrition. 25.Increased white count. 26.NO CODE, NO CPR, NO VENT. RECOMMENDATIONS AND DISCUSSION: I recommend to continue current medications, continue with symptomatic treatment. Continue with antibiotics. Continue the rest of the medications. Repeat labs. White count is still elevated; could be multifactorial. PT/OT evaluation and, once the patient is stabilized, possible ECF rehab. Further recommendations to follow. MMODL / IJN: [id number] /
--- NOTE | 2021-01-30 22:13 | PN ---
PROGRESS NOTE DATE OF SERVICE: 01/30/2021 REASON FOR FOLLOWUP: 1. Pneumonia. 2. Left foot ischemia. INTERVAL HISTORY: The patient is afebrile. The patient is status post above-knee amputation. Patient tolerated the procedure. Seen in the postoperative period. The patient was slightly sleepy, lethargic and did not provide any history. No vomiting or diarrhea was reported by the nursing staff. PHYSICAL EXAMINATION: Blood pressure 128/64, pulse of 51, temperature 97.5. He is 95% on 3 L nasal cannula. General description is an elderly male lying in bed in no distress. Respiratory system: Unlabored breathing with decreased intensity of breath sounds. No wheeze. Heart S1, S2. Regular rate and rhythm. Abdomen soft, no tenderness. LABS: Hemoglobin is 11.5, white count 31.4, creatinine 1.12. DIAGNOSTIC IMPRESSION AND PLAN: 1. Patient with ESBL Klebsiella pneumonia, for which the patient is currently covered with Invanz. 2. Patient with left foot ischemia, status post left above-knee amputation. 3. Elevated white count, most likely steroid effect. Continue supportive care. MMODL / IJN: [id number] /
[2021-01-31 00:28] LABS: Glucose,Whole Blood 154 mg/dL (75-99)
[2021-01-31] MEDS: INSULIN ASPART (NovoLOG) 100 UNIT/ML VIAL SQ SCH ×4 (00:45→17:22)
[2021-01-31] MEDS: GABAPENTIN 300 MG CAP PO SCH ×3 (00:45→17:12)
[2021-01-31] MEDS: HYDROmorphone 0.5 MG/0.5 ML SYRINGE IVP PRN ×4 (01:35→20:29)
[2021-01-31] MEDS: 1: MVI, ADULT NO.4 WITH VIT K 10 ML, TRACE (CONC-1ML/DOSE) 1 ML, SODIUM PHOSPHATE 15 MMO IV SCH ×16 (04:21→16:57)
[2021-01-31 05:41] LABS: Glucose,Whole Blood 216 mg/dL (75-99)
[2021-01-31] MEDS: IPRATROPIUM-ALBUTEROL 3 ML NEB INHALATION SCH ×4 (09:27→19:19)
[2021-01-31] MEDS: SYMBICORT 80-4.5 MCG INHALER INHALATION SCH ×2 (09:27→19:19)
[2021-01-31] MEDS: METOPROLOL TARTRATE 50 MG TAB PO SCH ×2 (09:37→20:28)
[2021-01-31] MEDS: AMIODARONE 200 MG TAB PO SCH ×2 (09:38→20:28)
[2021-01-31] MEDS: ASPIRIN 81 MG PO SCH (09:38)
[2021-01-31] MEDS: cloNIDine HCL 0.1 MG TAB PO SCH ×3 (09:38→20:28)
[2021-01-31] MEDS: FUROSEMIDE 20 MG TAB PO SCH (09:38)
[2021-01-31] MEDS: DOCUSATE 100 MG CAP PO SCH (09:38)
[2021-01-31] MEDS: PANTOPRAZOLE 40 MG/10 ML VIAL IVP SCH ×2 (09:39→20:28)
[2021-01-31] MEDS: methylPREDNISolone SOD SUCCI 40 MG/ML 1 ML VIAL IV SCH ×2 (09:39→20:29)
[2021-01-31 10:32] LABS: HCT 33.7 % (39.0-53.0); HGB 10.2 gm/dL (13.0-17.5); Hypochromasia Marked; MCH 31.2 pg (25.0-35.0); MCHC 30.3 g/dL (31.0-37.0); MCV 103.1 fL (80.0-100.0); Macrocytosis Moderate; Mean Platelet Volume 8.2; Platelet Count 365 k/uL (150-450); RBC 3.27 m/uL (4.30-5.90); RDW 15.9 % (11.5-15.5); WBC 28.9 k/uL (3.8-10.6)
--- NOTE | 2021-01-31 11:15 | P.PN ---
Subjective Patient is resting comfortably in bed Yesterday he underwent above the palpitation of the left lower extremity He has no respiratory distress no chest discomfort he does not appear to be short of breath no palpitations Yesterday he briefly went to atrial fibrillation with RVR 30 converted spontaneously He is afebrile pulse rate in the 60s but pressure 146/62 and repeated manually Hemoglobin 10.2 Impression Diastolic congestive heart failure, acute Paroxysmal atrial fibrillation Coronary artery disease status post stenting to the RCA in 2018 Recent aspiration pneumonitis Severe peripheral vascular disease status post amputation Plan Continue amiodarone 200 mg twice daily for 2 weeks and then reduce the dose to 200 mg once daily Continue aspirin Currently he is on clonidine 0.1 mg 3 times a day for blood pressure management He is also on metoprolol tartrate 100 mg twice daily Start amlodipine 10 mg by mouth daily Hopefully we can taper off clonidine. Thereafter In the past she's had a GI bleed and therefore he has not been on oral anticoagulation Objective - Vital Signs Vital signs: Vital Signs Temp 98 F 01/31/21 09:30 Pulse 61 01/31/21 09:30 Resp 17 01/31/21 09:30 BP 146/62 01/31/21 09:30 Pulse Ox 93 L 01/31/21 09:30 Intake & Output 01/30/21 01/31/21 01/31/21 18:59 06:59 18:59 Intake Total 2019.5 1284 120 Output Total 1000 2400 Balance 1019.5 -1116 120 Weight 69.127 kg Intake: IV 850 Intake, IV Titration 1051.5 600 Amount Mvi, Adult No.4 with Vit 360 K 10 ml Trace (Conc-1Ml/ Dose) 1 ml Sodium Phosphate 15 mmol Sodium Chloride 4Meq/ml Vial 72 meq Potassium Chloride 28 meq Magnesium Sulfate gm 0.5 gm Calcium Gluconate 1 gm In Amino Acids 5 %/ Dextrose 20 % 1,000 ml @ 80 mls/hr IV .BY DURATION [facility] Rx#:[id number] Sodium Phosphate 15 mmol 1051.5 Sodium Chloride 4Meq/ml Vial 60 meq Potassium Chloride 40 meq Magnesium Sulfate gm 0.75 gm Calcium Gluconate 1 gm In Amino Acids 5 %/Dextrose 20 % 1,000 ml @ 80 mls/ hr IV .BY DURATION [facility] Rx #:[id number] Sodium Phosphate 15 mmol 240 Sodium Chloride 4Meq/ml Vial 72 meq Potassium Chloride 28 meq Magnesium Sulfate gm 0.5 gm Calcium Gluconate 1 gm In Amino Acids 5 %/Dextrose 20 % 1,000 ml @ 80 mls/ hr IV .BY DURATION [facility] Rx #:[id number] Oral 118 684 120 Output: Urine 900 1600 Stool 800 Estimated Blood Loss 100 Other: Voiding Method Indwelling Catheter Indwelling Catheter Indwelling Catheter # Bowel Movements 1 - Labs CBC & Chem 7: 01/31/21 09:29 01/30/21 05:37 Labs: Abnormal Lab Results - Last 24 Hours (Table) 01/30/21 01/30/21 01/31/21 Range/Units 14:55 18:07 00:26 WBC (3.8-10.6) k/uL RBC (4.30-5.90) m/uL Hgb (13.0-17.5) gm/dL Hct (39.0-53.0) % MCV (80.0-100.0) fL MCHC (31.0-37.0) g/dL RDW (11.5-15.5) % POC Glucose (mg/dL) 196 H 184 H 154 H (75-99) mg/dL 01/31/21 01/31/21 Range/Units 05:38 09:29 WBC 28.9 H (3.8-10.6) k/uL RBC 3.27 L (4.30-5.90) m/uL Hgb 10.2 L (13.0-17.5) gm/dL Hct 33.7 L (39.0-53.0) % MCV 103.1 H (80.0-100.0) fL MCHC 30.3 L (31.0-37.0) g/dL RDW 15.9 H (11.5-15.5) % POC Glucose (mg/dL) 216 H (75-99) mg/dL Microbiology - Last 24 Hours (Table) 01/29/21 07:50 Blood Culture - Preliminary Blood No Growth after 48 hours
--- NOTE | 2021-01-31 11:24 | P.PN ---
Subjective Progress Note Date: 01/31/21 CHIEF COMPLAINT: Bowel obstruction HISTORY OF PRESENT ILLNESS: The patient is a 65-year-old male with recent bowel obstruction and SMA syndrome. He is status post below the knee amputation. He denies abdominal pain. "They just keep giving me applesauce." ROS: No reports of nausea and vomiting. No bowel movements. No fevers or chills. No new chest pain. PHYSICAL EXAM: VITAL SIGNS: Reviewed CONSTITUTIONAL: Well developed and in no acute distress. EYES: Conjuctivae without sclera icterus. Extraocular movements grossly intact. HEAD, EARS, NOSE, THROAT: Moist buccal mucosa. Head is atraumatic, normocephalic. Hears conversational speech. No nasal drainage. NECK: Supple. No thyroidomegaly. RESPIRATORY: Non-labored respirations and equal bilateral excursions. CARDIOVASCULAR: 2+ radial pulses. ABDOMEN: No peritonitis. Scaphoid MUSCULOSKELETAL: No clubbing. No cyanosis. SKIN: Good skin turgor. Well perfused. NEUROLOGIC: Cranial nerves I through XII grossly intact. No focal or l ateralizing signs. PSYCH: Appropriate affect. Alert and oriented to person, place and time. CLINICAL LABS: Reviewed. ASSESSMENT: 1. Bowel obstruction/SMA syndrome 2. Peripheral vascular occlussive disease s/p below the knee amputation PLAN: 1. Advance diet as tolerated 2. Conservative management. Objective - Vital Signs Vital signs: Vital Signs Temp 98 F 01/31/21 09:30 Pulse 61 01/31/21 09:30 Resp 17 01/31/21 09:30 BP 146/62 01/31/21 09:30 Pulse Ox 93 L 01/31/21 09:30 Intake & Output 01/30/21 01/31/21 01/31/21 18:59 06:59 18:59 Intake Total 2019.5 1284 120 Output Total 1000 2400 Balance 1019.5 -1116 120 Weight 69.127 kg Intake: IV 850 Intake, IV Titration 1051.5 600 Amount Mvi, Adult No.4 with Vit 360 K 10 ml Trace (Conc-1Ml/ Dose) 1 ml Sodium Phosphate 15 mmol Sodium Chloride 4Meq/ml Vial 72 meq Potassium Chloride 28 meq Magnesium Sulfate gm 0.5 gm Calcium Gluconate 1 gm In Amino Acids 5 %/ Dextrose 20 % 1,000 ml @ 80 mls/hr IV .BY DURATION [facility] Rx#:[id number] Sodium Phosphate 15 mmol 1051.5 Sodium Chloride 4Meq/ml Vial 60 meq Potassium Chloride 40 meq Magnesium Sulfate gm 0.75 gm Calcium Gluconate 1 gm In Amino Acids 5 %/Dextrose 20 % 1,000 ml @ 80 mls/ hr IV .BY DURATION [facility] Rx #:[id number] Sodium Phosphate 15 mmol 240 Sodium Chloride 4Meq/ml Vial 72 meq Potassium Chloride 28 meq Magnesium Sulfate gm 0.5 gm Calcium Gluconate 1 gm In Amino Acids 5 %/Dextrose 20 % 1,000 ml @ 80 mls/ hr IV .BY DURATION [facility] Rx #:[id number] Oral 118 684 120 Output: Urine 900 1600 Stool 800 Estimated Blood Loss 100 Other: Voiding Method Indwelling Catheter Indwelling Catheter Indwelling Catheter # Bowel Movements 1 - Labs CBC & Chem 7: 01/31/21 09:29 01/30/21 05:37 Labs: Abnormal Lab Results - Last 24 Hours (Table) 01/30/21 01/30/21 01/31/21 Range/Units 14:55 18:07 00:26 WBC (3.8-10.6) k/uL RBC (4.30-5.90) m/uL Hgb (13.0-17.5) gm/dL Hct (39.0-53.0) % MCV (80.0-100.0) fL MCHC (31.0-37.0) g/dL RDW (11.5-15.5) % POC Glucose (mg/dL) 196 H 184 H 154 H (75-99) mg/dL 01/31/21 01/31/21 Range/Units 05:38 09:29 WBC 28.9 H (3.8-10.6) k/uL RBC 3.27 L (4.30-5.90) m/uL Hgb 10.2 L (13.0-17.5) gm/dL Hct 33.7 L (39.0-53.0) % MCV 103.1 H (80.0-100.0) fL MCHC 30.3 L (31.0-37.0) g/dL RDW 15.9 H (11.5-15.5) % POC Glucose (mg/dL) 216 H (75-99) mg/dL Microbiology - Last 24 Hours (Table) 01/29/21 07:50 Blood Culture - Preliminary Blood No Growth after 48 hours Assessment and Plan (1) Peripheral vascular disease Current Visit: Yes Status: Acute Code(s): I73.9 - PERIPHERAL VASCULAR DISEASE, UNSPECIFIED SNOMED Code(s): 016377111 (2) Below knee amputation Current Visit: Yes Status: Acute Code(s): S88.119A - COMPLETE TRAUM AMP AT LEV BETW KN & ANKL, UNSP LOW LEG, INIT SNOMED Code(s): 803283810 (3) SMAS (superior mesenteric artery syndrome) Current Visit: Yes Status: Acute Code(s): K55.1 - CHRONIC VASCULAR DISORDERS OF INTESTINE SNOMED Code(s): 807098199 (4) Small bowel obstruction Current Visit: Yes Status: Acute Code(s): K56.609 - UNSP INTESTNL OBST, UNSP TO PARTIAL VERSUS COMPLETE OBST SNOMED Code(s): 817067077
[2021-01-31 11:29] LABS: Albumin 2.4 g/dL (3.5-5.0); Calcium 8.8 mg/dL (8.4-10.2); Magnesium 2.2 mg/dL (1.6-2.3); Potassium 4.7 mmol/L (3.5-5.1); Total Bilirubin 0.7 mg/dL (0.2-1.3); Total Protein 5.5 g/dL (6.3-8.2)
[2021-01-31 12:22] LABS: Glucose,Whole Blood 244 mg/dL (75-99)
[2021-01-31] MEDS: amLODIPine 10 MG TAB PO SCH (12:27)
--- NOTE | 2021-01-31 15:15 | P.PN ---
Subjective Progress Note Date: 01/31/21 Principal diagnosis: s/p aka patient seen and examined. states pain at the amputation site but tolerable. Per nursing patient still confused. Objective - Vital Signs Vital signs: Vital Signs Temp 97.8 F 01/31/21 12:30 Pulse 70 01/31/21 15:01 Resp 18 01/31/21 12:30 BP 162/73 01/31/21 12:30 Pulse Ox 96 01/31/21 12:30 Intake & Output 01/30/21 01/31/21 01/31/21 18:59 06:59 18:59 Intake Total 2019.5 1284 360 Output Total 1000 2400 1000 Balance 1019.5 -1116 -640 Weight 69.127 kg 65 kg Intake: IV 850 Intake, IV Titration 1051.5 600 Amount Mvi, Adult No.4 with Vit 360 K 10 ml Trace (Conc-1Ml/ Dose) 1 ml Sodium Phosphate 15 mmol Sodium Chloride 4Meq/ml Vial 72 meq Potassium Chloride 28 meq Magnesium Sulfate gm 0.5 gm Calcium Gluconate 1 gm In Amino Acids 5 %/ Dextrose 20 % 1,000 ml @ 80 mls/hr IV .BY DURATION [facility] Rx#:[id number] Sodium Phosphate 15 mmol 1051.5 Sodium Chloride 4Meq/ml Vial 60 meq Potassium Chloride 40 meq Magnesium Sulfate gm 0.75 gm Calcium Gluconate 1 gm In Amino Acids 5 %/Dextrose 20 % 1,000 ml @ 80 mls/ hr IV .BY DURATION [facility] Rx #:[id number] Sodium Phosphate 15 mmol 240 Sodium Chloride 4Meq/ml Vial 72 meq Potassium Chloride 28 meq Magnesium Sulfate gm 0.5 gm Calcium Gluconate 1 gm In Amino Acids 5 %/Dextrose 20 % 1,000 ml @ 80 mls/ hr IV .BY DURATION [facility] Rx #:[id number] Oral 118 684 360 Output: Urine 900 1600 1000 Stool 800 Estimated Blood Loss 100 Other: Voiding Method Indwelling Catheter Indwelling Catheter Indwelling Catheter # Bowel Movements 1 - Exam left AKA site dressings intact. No bleeding. - Labs CBC & Chem 7: 01/31/21 09:29 01/31/21 09:29 Labs: Abnormal Lab Results - Last 24 Hours (Table) 01/30/21 01/31/21 01/31/21 Range/Units 18:07 00:26 05:38 WBC (3.8-10.6) k/uL RBC (4.30-5.90) m/uL Hgb (13.0-17.5) gm/dL Hct (39.0-53.0) % MCV (80.0-100.0) fL MCHC (31.0-37.0) g/dL RDW (11.5-15.5) % Chloride (98-107) mmol/L BUN (9-20) mg/dL Glucose (74-99) mg/dL POC Glucose (mg/dL) 184 H 154 H 216 H (75-99) mg/dL Total Protein (6.3-8.2) g/dL Albumin (3.5-5.0) g/dL 01/31/21 01/31/21 01/31/21 Range/Units 09:29 09:29 12:02 WBC 28.9 H (3.8-10.6) k/uL RBC 3.27 L (4.30-5.90) m/uL Hgb 10.2 L (13.0-17.5) gm/dL Hct 33.7 L (39.0-53.0) % MCV 103.1 H (80.0-100.0) fL MCHC 30.3 L (31.0-37.0) g/dL RDW 15.9 H (11.5-15.5) % Chloride 108 H (98-107) mmol/L BUN 68 H (9-20) mg/dL Glucose 135 H (74-99) mg/dL POC Glucose (mg/dL) 244 H (75-99) mg/dL Total Protein 5.5 L (6.3-8.2) g/dL Albumin 2.4 L (3.5-5.0) g/dL Microbiology - Last 24 Hours (Table) 01/29/21 07:50 Blood Culture - Preliminary Blood No Growth after 48 hours Assessment and Plan Assessment: 1. POD 1 left AKA 2. 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 Continue medical management. Ok for nursing to change dressings daily. Will follow thursday.
[2021-01-31 15:24] LABS: Lymphocytes # (M) 0.58 k/uL (1.0-4.8); Metamyelocytes # (M) 0.29 k/uL (0); Metamyelocytes % 1 %; Monocytes # (M) 2.89 k/uL (0-1.0); Myelocytes # (M) 0.29 k/uL (0); Myelocytes % 1 %; Neutrophils # (M) 25.14 k/uL (1.3-7.7); Neutrophils % (M) 87 %; Nucleated Red Blood Cells 0 /100 WBC (0-0); Total Cells Counted 200
[2021-01-31 16:24] LABS: Glucose,Whole Blood 135 mg/dL (75-99)
[2021-01-31] MEDS: ERTAPENEM 1 GM in SODIUM CHLORIDE 0.9% 50 ML IVPB SCH (17:11)
[2021-01-31] MEDS: LACTATED RINGERS 1,000 ML IV SCH (17:12)
[2021-01-31] MEDS: ACETAMINOPHEN TAB 325 MG TAB PO PRN ×2 (17:25→22:29)
--- NOTE | 2021-01-31 18:43 | PN ---
PROGRESS NOTE DATE OF SERVICE: 01/31/2021 This 65-year-old gentleman who was admitted with acute severe left leg infection had above-knee amputation yesterday. The patient had features of sepsis, aspiration, and multiple medical problems. Currently the patient is slightly drowsy. Patient is on pain medication. No chest pain. No palpitations. No fever. Vascular Surgery and multiple consultants are following the patient closely. PHYSICAL EXAMINATION: The patient is drowsy because of pain medication, as mentioned. Pulse 66, blood pressure 162/73, respiration 18, temperature 97.8, pulse ox 96% on 3 L. HEENT: Conjunctivae normal. NECK: No jugular venous distention. CARDIOVASCULAR: S1, S2 muffled. RESPIRATION: Breath sounds diminished at the bases. A few scattered rhonchi. ABDOMEN: Soft. LEGS: Status post above-knee amputation. NERVOUS SYSTEM: No focal deficit. LABS: WBC 28.3, hemoglobin 10.2, sodium 139, potassium 4.7. ASSESSMENT: 1. Acute severe left leg infection with necrotic lesions, possible ischemic leg with acute severe sepsis and septic shock and severe hypotension, present on admission, status post left above-knee amputation. 2. Atrial fibrillation with a fast ventricular rate. 3. ESBL Klebsiella pneumoniae pneumonia. 4. Change in mental status, acute metabolic encephalopathy, multifactorial. 5. Acute bilateral aspiration pneumonia with acute hypoxic respiratory failure, monitored in ICU. 6. On TPN. 7. Vomiting and coffee-ground emesis with possible upper GI bleeding, improved. 8. Anemia, acute blood loss anemia possibly, stable. 9. Abdominal distention, possible acute small-bowel obstruction versus ileus, present on admission, improved. 10.Hyponatremia. 11.Hypokalemia. 12.History of recent transmetatarsal amputation as well as bypass surgery 3 weeks ago at [facility] on the left leg. 13.Peripheral vascular disease, severe. 14.History of coronary artery disease. 15.Chronic anemia. 16.Acute kidney injury with acute tubular necrosis. 17.Chronic obstructive pulmonary disease. 18.Hypertension. 19.Chronic debility. 20.History of protein-calorie malnutrition. 21.Sacral decubitus ulcer, stage III. 22.History of nicotine dependence. 23.History of GI and DVT prophylaxis. 24.Hyponatremia. 25.Hypoalbuminemia with mild protein-calorie malnutrition. 26.Increased white count. 27.NO CODE, NO CPR, NO VENT. RECOMMENDATIONS AND DISCUSSION: I recommend to continue current medications, continue with the monitoring, symptomatic treatment. Continue with the antibiotics. Avoid too much pain medications. White count is still significantly elevated. I would recommend repeat labs in the morning and continue to monitor. The sputum culture showed Klebsiella pneumoniae which is ESBL. Currently patient is on ertapenem. MMODL / IJN: [id number] /
[2021-02-01 00:10] LABS: Glucose,Whole Blood 152 mg/dL (75-99)
[2021-02-01] MEDS: GABAPENTIN 300 MG CAP PO SCH ×4 (00:19→23:13)
[2021-02-01] MEDS: INSULIN ASPART (NovoLOG) 100 UNIT/ML VIAL SQ SCH ×4 (00:19→17:38)
[2021-02-01] MEDS: HYDROmorphone 0.5 MG/0.5 ML SYRINGE IVP PRN ×4 (00:20→20:18)
[2021-02-01] MEDS: ACETAMINOPHEN TAB 325 MG TAB PO PRN (03:32)
[2021-02-01] MEDS: 1: MVI, ADULT NO.4 WITH VIT K 10 ML, TRACE (CONC-1ML/DOSE) 1 ML, SODIUM PHOSPHATE 15 MMO IV SCH ×17 (05:33→18:58)
[2021-02-01 06:15] LABS: Glucose,Whole Blood 199 mg/dL (75-99)
[2021-02-01] MEDS: IPRATROPIUM-ALBUTEROL 3 ML NEB INHALATION SCH ×4 (07:02→20:54)
[2021-02-01] MEDS: SYMBICORT 80-4.5 MCG INHALER INHALATION SCH ×2 (07:02→20:54)
[2021-02-01 08:18] LABS: Anisocytosis Slight; Basophils % (A) 0 %; Eosinophils % (A) 0 %; HCT 31.8 % (39.0-53.0); HGB 9.9 gm/dL (13.0-17.5); Hypochromasia Moderate; Lymphocytes # (A) 0.3 k/uL (1.0-4.8); Lymphocytes % (A) 1 %; MCH 31.1 pg (25.0-35.0); MCV 100.3 fL (80.0-100.0); Macrocytosis Slight; Mean Platelet Volume 8.4; Monocytes # (A) 1.2 k/uL (0-1.0); Monocytes % (A) 5 %; Neutrophils # (A) 20.5 k/uL (1.3-7.7); Neutrophils % (A) 93 %; Platelet Count 361 k/uL (150-450); RBC 3.17 m/uL (4.30-5.90); RDW 16.1 % (11.5-15.5); WBC 22.2 k/uL (3.8-10.6)
[2021-02-01] MEDS: METOPROLOL TARTRATE 50 MG TAB PO SCH ×2 (08:31→20:18)
[2021-02-01] MEDS: AMIODARONE 200 MG TAB PO SCH ×2 (08:31→20:14)
[2021-02-01] MEDS: FUROSEMIDE 20 MG TAB PO SCH (08:31)
[2021-02-01] MEDS: methylPREDNISolone SOD SUCCI 40 MG/ML 1 ML VIAL IV SCH ×2 (08:31→20:14)
[2021-02-01] MEDS: amLODIPine 10 MG TAB PO SCH (08:31)
[2021-02-01] MEDS: ASPIRIN 81 MG PO SCH (08:31)
[2021-02-01] MEDS: cloNIDine HCL 0.1 MG TAB PO SCH ×3 (08:31→20:15)
[2021-02-01] MEDS: PANTOPRAZOLE 40 MG/10 ML VIAL IVP SCH ×2 (08:31→20:14)
[2021-02-01] MEDS: DOCUSATE 100 MG CAP PO SCH (08:31)
[2021-02-01] MEDS ORDERED: FUROSEMIDE 10 MG/ML 4 ML VIAL IV STA (08:36)
[2021-02-01 08:37] LABS: Albumin 2.5 g/dL (3.5-5.0); Calcium 8.8 mg/dL (8.4-10.2); Phosphorus 3.5 mg/dL (2.5-4.5); Potassium 4.8 mmol/L (3.5-5.1); Total Bilirubin 0.5 mg/dL (0.2-1.3); Total Protein 5.7 g/dL (6.3-8.2)
--- NOTE | 2021-02-01 09:35 | PN ---
PROGRESS NOTE DATE OF SERVICE: 01/31/2021 REASON FOR FOLLOWUP: Pneumonia. INTERVAL HISTORY: Patient is afebrile. The patient remains to be hemodynamically stable, currently on 3 L nasal cannula. Not a very good historian though. No vomiting. Diarrhea or any other changes reported by the nursing staff. PHYSICAL EXAMINATION: Blood pressure 154/71, pulse of 71, temperature 98.2. He is 97% on 3 L nasal cannula. General description is an elderly male lying in bed in no distress. Respiratory system: Unlabored breathing, clear to auscultation anteriorly. Heart S1, S2. Regular rate and rhythm. Abdomen: Soft, no tenderness. Left AKA stump is currently dressed. No obvious drainage on the dressing. LABS: White count 28.9, creatinine 1.06. DIAGNOSTIC IMPRESSION/PLAN: 1. Patient with ESBL Klebsiella pneumonia, covered with Invanz to continue. 2. Elevated white count, possibly steroid related, we will monitor closely showing a downward trend. 3. Left foot ischemia status post left above knee amputation. MMODL / IJN: [id number] /
--- NOTE | 2021-02-01 10:31 | P.PN ---
Subjective Patient is a bit confused but he is also a bit short of breath today His blood pressures 165/70 752/78 Afebrile Pulse rate between 60-80 Breath sounds are reduced bilaterally Heart sounds normal, no murmurs Impression Diastolic congestive heart failure acute Paroxysmal atrial fibrillation Coronary artery disease status post stenting Severe peripheral vascular disease status post amputation Yesterday we started her on amlodipine 10 mg by mouth daily He is also on clonidine 0.1 mg 3 times a day as well as metoprolol 100 mg twice daily He appears to be little short of breath today I asked the nurse to give 40 mg IV of Lasix as a one-time dose His white count today is 22,000, hemoglobin 9.9 Sodium and potassium normal BUN is 61 creatinine is 1.1 AST is minimally increased Objective - Vital Signs Vital signs: Vital Signs Temp 98.0 F 02/01/21 08:30 Pulse 62 02/01/21 08:30 Resp 18 02/01/21 08:30 BP 165/77 02/01/21 08:30 Pulse Ox 98 02/01/21 08:30 Intake & Output 01/31/21 02/01/21 02/01/21 18:59 06:59 18:59 Intake Total 720 1028 128 Output Total 1685 2625 700 Balance -966 -9317 -232 Weight 65 kg 66.1 kg Intake: IV 20 10 Invasive Line 9 20 10 Intake, IV Titration 1008 Amount Sodium Phosphate 15 mmol 1008 Sodium Chloride 4Meq/ml Vial 72 meq Potassium Chloride 28 meq Magnesium Sulfate gm 0.5 gm Calcium Gluconate 1 gm In Amino Acids 5 %/Dextrose 20 % 1,000 ml @ 80 mls/ hr IV .BY DURATION [facility] Rx #:[id number] Oral 720 118 Output: Urine 1685 1675 650 Stool 950 50 Other: Voiding Method Indwelling Catheter Indwelling Catheter Indwelling Catheter - Labs CBC & Chem 7: 02/01/21 07:28 02/01/21 07:28 Labs: Abnormal Lab Results - Last 24 Hours (Table) 01/31/21 01/31/21 01/31/21 Range/Units 09:29 09:29 12:02 WBC 28.9 H (3.8-10.6) k/uL RBC 3.27 L (4.30-5.90) m/uL Hgb 10.2 L (13.0-17.5) gm/dL Hct 33.7 L (39.0-53.0) % MCV 103.1 H (80.0-100.0) fL MCHC 30.3 L (31.0-37.0) g/dL RDW 15.9 H (11.5-15.5) % Neutrophils # (1.3-7.7) k/uL Neutrophils # (Manual) 25.14 H (1.3-7.7) k/uL Lymphocytes # (1.0-4.8) k/uL Lymphocytes # (Manual) 0.58 L (1.0-4.8) k/uL Monocytes # (0-1.0) k/uL Monocytes # (Manual) 2.89 H (0-1.0) k/uL Metamyelocytes # (Man) 0.29 H (0) k/uL Myelocytes # (Manual) 0.29 H (0) k/uL Chloride 108 H (98-107) mmol/L BUN 68 H (9-20) mg/dL Glucose 135 H (74-99) mg/dL POC Glucose (mg/dL) 244 H (75-99) mg/dL ALT (4-49) U/L Total Protein 5.5 L (6.3-8.2) g/dL Albumin 2.4 L (3.5-5.0) g/dL 01/31/21 02/01/21 02/01/21 Range/Units 16:23 00:09 06:13 WBC (3.8-10.6) k/uL RBC (4.30-5.90) m/uL Hgb (13.0-17.5) gm/dL Hct (39.0-53.0) % MCV (80.0-100.0) fL MCHC (31.0-37.0) g/dL RDW (11.5-15.5) % Neutrophils # (1.3-7.7) k/uL Neutrophils # (Manual) (1.3-7.7) k/uL Lymphocytes # (1.0-4.8) k/uL Lymphocytes # (Manual) (1.0-4.8) k/uL Monocytes # (0-1.0) k/uL Monocytes # (Manual) (0-1.0) k/uL Metamyelocytes # (Man) (0) k/uL Myelocytes # (Manual) (0) k/uL Chloride (98-107) mmol/L BUN (9-20) mg/dL Glucose (74-99) mg/dL POC Glucose (mg/dL) 135 H 152 H 199 H (75-99) mg/dL ALT (4-49) U/L Total Protein (6.3-8.2) g/dL Albumin (3.5-5.0) g/dL 02/01/21 02/01/21 Range/Units 07:28 07:28 WBC 22.2 H (3.8-10.6) k/uL RBC 3.17 L (4.30-5.90) m/uL Hgb 9.9 L (13.0-17.5) gm/dL Hct 31.8 L (39.0-53.0) % MCV 100.3 H (80.0-100.0) fL MCHC (31.0-37.0) g/dL RDW 16.1 H (11.5-15.5) % Neutrophils # 20.5 H (1.3-7.7) k/uL Neutrophils # (Manual) (1.3-7.7) k/uL Lymphocytes # 0.3 L (1.0-4.8) k/uL Lymphocytes # (Manual) (1.0-4.8) k/uL Monocytes # 1.2 H (0-1.0) k/uL Monocytes # (Manual) (0-1.0) k/uL Metamyelocytes # (Man) (0) k/uL Myelocytes # (Manual) (0) k/uL Chloride 109 H (98-107) mmol/L BUN 61 H (9-20) mg/dL Glucose 129 H (74-99) mg/dL POC Glucose (mg/dL) (75-99) mg/dL ALT 64 H (4-49) U/L Total Protein 5.7 L (6.3-8.2) g/dL Albumin 2.5 L (3.5-5.0) g/dL Microbiology - Last 24 Hours (Table) 01/29/21 07:50 Blood Culture - Preliminary Blood No Growth after 72 hours
[2021-02-01 12:07] LABS: Glucose,Whole Blood 170 mg/dL (75-99)
--- NOTE | 2021-02-01 15:57 | P.PN ---
Subjective Progress Note Date: 02/01/21 CHIEF COMPLAINT: Bowel obstruction HISTORY OF PRESENT ILLNESS: The patient is a 65-year-old male with recent bowel obstruction and SMA syndrome. He is status post below the knee amputation. He is more disoriented today. No abdominal pain. He is on liquids. ROS: No reports of nausea and vomiting. No bowel movements. No fevers or chills. No new chest pain. PHYSICAL EXAM: VITAL SIGNS: Reviewed CONSTITUTIONAL: Well developed and in no acute distress. EYES: Conjuctivae without sclera icterus. Extraocular movements grossly intact. HEAD, EARS, NOSE, THROAT: Moist buccal mucosa. Head is atraumatic, normocephalic. Hears conversational speech. No nasal drainage. NECK: Supple. No thyroidomegaly. RESPIRATORY: Non-labored respirations and equal bilateral excursions. CARDIOVASCULAR: 2+ radial pulses. ABDOMEN: No peritonitis. Scaphoid MUSCULOSKELETAL: No clubbing. No cyanosis. SKIN: Good skin turgor. Well perfused. NEUROLOGIC: Cranial nerves I through XII grossly intact. No focal or lateralizing signs. PSYCH: Appropriate affect. Alert and oriented to person, place and time. CLINICAL LABS: Reviewed. WBC 28,000 down to 20,000, sepsis ASSESSMENT: 1. Bowel obstruction/SMA syndrome 2. Peripheral vascular occlussive disease s/p below the knee amputation 3. Sepsis PLAN: 1. Correction of sepsis with disorientation 2. PT/OT per vascular Objective - Vital Signs Vital signs: Vital Signs Temp 98.0 F 02/01/21 12:50 Pulse 67 02/01/21 12:50 Resp 18 02/01/21 14:00 BP 163/79 02/01/21 12:50 Pulse Ox 97 02/01/21 12:50 Intake & Output 01/31/21 02/01/21 02/01/21 18:59 06:59 18:59 Intake Total 720 1028 138 Output Total 1685 8305 750 Balance -965 -1597 -872 Weight 65 kg 66.1 kg 66.1 kg Intake: IV 20 20 Invasive Line 9 20 20 Intake, IV Titration 1008 Amount Sodium Phosphate 15 mmol 1008 Sodium Chloride 4Meq/ml Vial 72 meq Potassium Chloride 28 meq Magnesium Sulfate gm 0.5 gm Calcium Gluconate 1 gm In Amino Acids 5 %/Dextrose 20 % 1,000 ml @ 80 mls/ hr IV .BY DURATION [facility] Rx #:[id number] Oral 720 118 Output: Urine 1685 1675 650 Stool 950 100 Other: Voiding Method Indwelling Catheter Indwelling Catheter Indwelling Catheter - Labs CBC & Chem 7: 02/01/21 07:28 02/01/21 07:28 Labs: Abnormal Lab Results - Last 24 Hours (Table) 01/31/21 02/01/21 02/01/21 Range/Units 16:23 00:09 06:13 WBC (3.8-10.6) k/uL RBC (4.30-5.90) m/uL Hgb (13.0-17.5) gm/dL Hct (39.0-53.0) % MCV (80.0-100.0) fL RDW (11.5-15.5) % Neutrophils # (1.3-7.7) k/uL Lymphocytes # (1.0-4.8) k/uL Monocytes # (0-1.0) k/uL Chloride (98-107) mmol/L BUN (9-20) mg/dL Glucose (74-99) mg/dL POC Glucose (mg/dL) 135 H 152 H 199 H (75-99) mg/dL ALT (4-49) U/L Total Protein (6.3-8.2) g/dL Albumin (3.5-5.0) g/dL 02/01/21 02/01/21 02/01/21 Range/Units 07:28 07:28 12:04 WBC 22.2 H (3.8-10.6) k/uL RBC 3.17 L (4.30-5.90) m/uL Hgb 9.9 L (13.0-17.5) gm/dL Hct 31.8 L (39.0-53.0) % MCV 100.3 H (80.0-100.0) fL RDW 16.1 H (11.5-15.5) % Neutrophils # 20.5 H (1.3-7.7) k/uL Lymphocytes # 0.3 L (1.0-4.8) k/uL Monocytes # 1.2 H (0-1.0) k/uL Chloride 109 H (98-107) mmol/L BUN 61 H (9-20) mg/dL Glucose 129 H (74-99) mg/dL POC Glucose (mg/dL) 170 H (75-99) mg/dL ALT 64 H (4-49) U/L Total Protein 5.7 L (6.3-8.2) g/dL Albumin 2.5 L (3.5-5.0) g/dL Microbiology - Last 24 Hours (Table) 01/29/21 07:50 Blood Culture - Preliminary Blood No Growth after 72 hours Assessment and Plan (1) Peripheral vascular disease Current Visit: Yes Status: Acute Code(s): I73.9 - PERIPHERAL VASCULAR DISEASE, UNSPECIFIED SNOMED Code(s): 086876889 (2) Below knee amputation Current Visit: Yes Status: Acute Code(s): S88.119A - COMPLETE TRAUM AMP AT LEV BETW KN & ANKL, UNSP LOW LEG, INIT SNOMED Code(s): 559587253 (3) SMAS (superior mesenteric artery syndrome) Current Visit: Yes Status: Acute Code(s): K55.1 - CHRONIC VASCULAR DISORDERS OF INTESTINE SNOMED Code(s): 398806342 (4) Small bowel obstruction Current Visit: Yes Status: Acute Code(s): K56.609 - UNSP INTESTNL OBST, UNSP TO PARTIAL VERSUS COMPLETE OBST SNOMED Code(s): 889756131
--- NOTE | 2021-02-01 17:26 | PN ---
PROGRESS NOTE DATE OF SERVICE: 02/01/2021 REASON FOR FOLLOWUP: Pneumonia and left leg ischemia. INTERVAL HISTORY: The patient is afebrile. The patient is more awake and alert today. He is breathing comfortably. Denies any chest pain, shortness of breath. No worsening cough. No abdominal pain or diarrhea. PHYSICAL EXAMINATION: Blood pressure 163/79, pulse 67, temperature 98. He is 97% on 2 L nasal cannula. General description is an elderly male lying in bed in no distress. Respiratory system: Unlabored breathing, clear to auscultation anteriorly. Heart S1, S2. Regular rate and rhythm. Abdomen soft, no tenderness. Left BKA stump is currently dressed. No obvious drainage on the dressing. DIAGNOSTIC IMPRESSION AND PLAN: Patient with ESBL Klebsiella pneumonia. Patient has shown overall improvement on Invanz, which will be continued to finish at least 10-day course of therapy and watch clinical response. Continue with supportive care. MMODL / IJN: [id number] /
[2021-02-01] MEDS: ERTAPENEM 1 GM in SODIUM CHLORIDE 0.9% 50 ML IVPB SCH (17:37)
[2021-02-01] MEDS: LACTATED RINGERS 1,000 ML IV SCH (18:45)
[2021-02-01 23:20] LABS: Glucose,Whole Blood 118 mg/dL (75-99)
[2021-02-02] MEDS: HYDROmorphone 0.5 MG/0.5 ML SYRINGE IVP PRN ×2 (00:18→08:23)
--- NOTE | 2021-02-02 02:01 | P.PN ---
Subjective Progress Note Date: 02/01/21 This is a 65-year-old male who was recently admitted with acute severe left leg infection and underwent left above the knee amputation. Patient is being closely monitored by multiple medical consultations including ID and cardiology. Patient continues to be confused but much more awake today. Family at the bedside today and possible ecf being planned. Patient continues on IV invanz and will continue. Patient is afebrile. No chest pain reported. Labs: White blood count is 22.2, hemoglobin is 9.9, platelets are 361, sodium is 140, potassium is 4.8, BUN is 61, creatinine is 1.07, magnesium is 2.0 Review of systems: Unable to completely obtain given patient continues to be confused All medications have been reviewed Active Medications Acetaminophen (Acetaminophen Tab 325 Mg Tab) 650 mg PO Q4H PRN PRN Reason: Pain or Fever > 100.5 Last Admin: 02/01/21 03:32 Dose: 650 mg Documented by: Albuterol/Ipratropium (Ipratropium-Albuterol 3 Ml Neb) 3 ml INHALATION RT-QID [facility] Last Admin: 02/01/21 11:00 Dose: Not Given Documented by: Amiodarone HCl (Amiodarone 200 Mg Tab) 200 mg PO BID [facility] Last Admin: 02/01/21 08:31 Dose: 200 mg Documented by: Amlodipine Besylate (Amlodipine 10 Mg Tab) 10 mg PO DAILY [facility] Last Admin: 02/01/21 08:31 Dose: 10 mg Documented by: Artificial Tears (Artificial Tears-Hypromellose Drops 15 Ml Btl) 1 drops RIGHT EYE Q6H PRN PRN Reason: DRY EYES Aspirin (Aspirin 81 Mg) 81 mg PO DAILY [facility] Last Admin: 02/01/21 08:31 Dose: 81 mg Documented by: Budesonide/Formoterol Fumarate (Symbicort 80-4.5 Mcg Inhaler) 2 puff INHALATION RT-BID [facility] Last Admin: 02/01/21 07:02 Dose: Not Given Documented by: Clonidine (Clonidine Hcl 0.1 Mg Tab) 0.1 mg PO TID [facility] Last Admin: 02/01/21 08:31 Dose: 0.1 mg Documented by: Docusate Sodium (Docusate 100 Mg Cap) 100 mg PO DAILY [facility] Last Admin: 02/01/21 08:31 Dose: 100 mg Documented by: Furosemide (Furosemide 20 Mg Tab) 20 mg PO DAILY [facility] Last Admin: 02/01/21 08:31 Dose: 20 mg Documented by: Gabapentin (Gabapentin 300 Mg Cap) 300 mg PO Q8HR [facility] Last Admin: 02/01/21 08:31 Dose: 300 mg Documented by: Heparin Sodium (Porcine) (Heparin Sodium 1,000 Un/Ml (10ml Vl)) 0 unit IV PER PROTOCOL PRN; Protocol PRN Reason: Low PTT Last Admin: 01/24/21 07:49 Dose: 1,355 unit Documented by: Hydromorphone HCl (Hydromorphone 0.5 Mg/0.5 Ml Syringe) 0.5 mg IVP Q4H PRN PRN Reason: Pain Last Admin: 02/01/21 11:41 Dose: 0.5 mg Documented by: Fat Emulsion Intravenous 500 (ml/ IV Solution) 500 mls @ 21 mls/hr IV WEEKLY [facility] Last Admin: 01/28/21 16:35 Dose: 21 mls/hr Documented by: Lactated Ringer's (Lactated Ringers) 1,000 mls @ 20 mls/hr IV .Q24H [facility] Last Admin: 01/31/21 17:12 Dose: 20 mls/hr Documented by: Parenteral Vitamin Supplement 10 ml/ Zinc/Copper/Manganese/Selenium 1 ml/ Sodium Phosphate 15 mmol/ Sodium Chloride 72 meq/ Potassium Chloride 28 meq/ Magnesium Sulfate 0.5 gm/ Calcium Gluconate 1 gm/ Amino Acids/Dextrose 1,059 mls @ 80 mls/hr IV .BY DURATION [facility] Stop: 02/01/21 17:26 Last Admin: 01/31/21 04:21 Dose: 80 mls/hr Documented by: Sodium Phosphate 15 mmol/Sodium Chloride 72 meq/Potassium Chloride 28 meq/Magnesium Sulfate 0.5 gm/Calcium Gluconate 1 gm/ Amino Acids/Dextrose 1,048 mls @ 80 mls/hr IV .BY DURATION [facility] Stop: 02/01/21 17:26 Last Admin: 02/01/21 05:33 Dose: 80 mls/hr Documented by: Parenteral Vitamin Supplement 10 ml/ Zinc/Copper/Manganese/Selenium 1 ml/ Sodium Phosphate 15 mmol/ Sodium Chloride 60 meq/ Sodium Acetate 14 meq/ Potassium Chloride 20 meq/ Magnesium Sulfate 0.5 gm/ Calcium Gluconate 1 gm/ Amino Acids/Dextrose 1,059 mls @ 80 mls/hr IV .BY DURATION [facility] Sodium Phosphate 15 mmol/Sodium Chloride 60 meq/ Sodium Acetate 14 meq/ Potassium Chloride 20 meq/ Magnesium Sulfate 0.5 gm/ Calcium Gluconate 1 gm/ Amino Acids/Dextrose 1,048 mls @ 80 mls/hr IV .BY DURATION [facility] Insulin Aspart (Insulin Aspart (Novolog) 100 Unit/Ml Vial) 0 unit SQ Q6H [facility]; Protocol Last Admin: 02/01/21 12:48 Dose: 2 unit Documented by: Lidocaine HCl (Lidocaine 1% (10mg/Ml) For Iv Start) 0.1 ml INTRADERMA PER P ROTOCOL PRN PRN Reason: IV Start Methylprednisolone Sodium Succinate (Methylprednisolone Sod Succi 40 Mg/Ml 1 Ml Vial) 40 mg IV Q12HR [facility] Last Admin: 02/01/21 08:31 Dose: 40 mg Documented by: Metoprolol Tartrate (Metoprolol Tartrate 50 Mg Tab) 100 mg PO BID [facility] Last Admin: 02/01/21 08:31 Dose: 100 mg Documented by: Miscellaneous Information (Magnesium Replacement Protocol 1 Each Misc) 1 each MISCELLANE DAILY PRN; Protocol PRN Reason: Per Protocol Miscellaneous Information (Potassium Replacement Protocol 1 Each Misc) 1 each MISCELLANE DAILY PRN; Protocol PRN Reason: Per Protocol Ondansetron HCl (Ondansetron 4 Mg/2 Ml Vial) 4 mg IVP Q6HR PRN PRN Reason: Nausea And Vomiting Last Admin: 01/16/21 01:07 Dose: 4 mg Documented by: Pantoprazole Sodium (Pantoprazole 40 Mg/10 Ml Vial) 40 mg IVP BID [facility] Last Admin: 02/01/21 08:31 Dose: 40 mg Documented by: Sodium Chloride (Sodium Chloride 0.9% Flush 10 Ml Syringe) 10 ml IV Q4HR PRN PRN Reason: PICC Line Sodium Chloride (Sodium Chloride 0.9% Flush 10 Ml Syringe) 10 ml IV WEEKLY [facility] Last Admin: 02/01/21 09:30 Dose: 10 ml Documented by: Sodium Chloride (Sodium Chloride 0.9% Flush 10 Ml Syringe) 20 ml IV Q4HR PRN PRN Reason: PICC Line Physical exam: Gen: This is 65-year-old male who is awake, alert and oriented 1-2, thin built, confused.. Temp is 98.0 F, pulse is 87, respirations are 18, blood pressure is 165/77, oxygen saturation is 98% on 2 L via nasal cannula HEENT: Head is atraumatic, normocephalic. Pupils equal, round. Sclerae is anicteric. NECK: Supple. No JVD. No lymphadenopathy. No thyromegaly. LUNGS: Breath sounds are diminished at the bases with mild expiratory wheezing, course rhonchi noted. No intercostal retractions. HEART: S1, S2 are muffled ABDOMEN: Soft. thin. Bowel sounds are present. No masses. No tenderness. EXTREMITIES: No pedal edema. No calf tenderness. status post left aka with dressing intact NEUROLOGICAL: Alert and oriented 1, no focal deficits, diffusely weak Assessment: Acute severe left leg infection with necrotic lesions, possible ischemic leg acu te severe sepsis and septic shock and severe hypotension, present on admission, status post left [id number] amputation Atrial fibrillation with a fast ventricular rate ESBL Klebsiella pneumonia Change in mental status acute metabolic encephalopathy, multifactorial Acute bilateral aspiration pneumonia with acute hypoxic respiratory failure, was briefly in the ICU On TPN Vomiting and coffee-ground emesis with possible upper GI bleeding, improved Anemia, acute blood loss anemia possibly, stable Abdominal distention, possible acute small bowel obstruction versus ileus, present on admission, improved hyponatremia Hypokalemia History of recent transmetatarsal amputation as well as bypass surgery 3 weeks ago at [facility] on the left leg peripheral vascular disease, severe history of coronary artery disease chronic anemia acute kidney injury with acute tubular necrosis chronic obstructive pulmonary disease Hypertension chronic debility history of protein calorie malnutrition Sacral decubitus ulcer, stage III History of nicotine dependence History of GI and DVT prophylaxis Hyponatremia Hypoalbuminemia with mild protein calorie malnutrition Increased white count no code, no CPR, no vent Plan: Recommend to continue with current medications and management and symptomatic treatment. Recommend to continue with IV INvanz and will need IV abx on discharge. ECF possibly being planned and will discuss with social work about placement. Patient is weak and recommend PT/OT daily. Family at the bedside and discussed in detail about confusion and encouraged opening shades during the day and encouraging increased activity and family visits for frequent reorientation. Avoid RAILWAY PATROL OFFICER and narotic agents if possible and limit use. Due to multiple complex medical issues prognosis is guarded. Will Continue to monitor closely and repeat labs. Objective - Vital Signs Vital signs: Vital Signs Temp 98.0 F 02/01/21 08:30 Pulse 62 02/01/21 08:30 Resp 18 02/01/21 08:30 BP 165/77 02/01/21 08:30 Pulse Ox 98 02/01/21 08:30 Intake & Output 01/31/21 02/01/21 02/01/21 18:59 06:59 18:59 Intake Total 720 1028 128 Output Total 1685 2625 700 Balance -965 -1597 -572 Weight 65 kg 66.1 kg Intake: IV 20 10 Invasive Line 9 20 10 Intake, IV Titration 1008 Amount Sodium Phosphate 15 mmol 1008 Sodium Chloride 4Meq/ml Vial 72 meq Potassium Chloride 28 meq Magnesium Sulfate gm 0.5 gm Calcium Gluconate 1 gm In Amino Acids 5 %/Dextrose 20 % 1,000 ml @ 80 mls/ hr IV .BY DURATION [facility] Rx #:[id number] Oral 720 118 Output: Urine 1685 1675 650 Stool 950 50 Other: Voiding Method Indwelling Catheter Indwelling Catheter Indwelling Catheter - Labs CBC & Chem 7: 02/01/21 07:28 02/01/21 07:28 Labs: Abnormal Lab Results - Last 24 Hours (Table) 01/31/21 01/31/21 01/31/21 Range/Units 09:29 09:29 12:02 WBC (3.8-10.6) k/uL RBC (4.30-5.90) m/uL Hgb (13.0-17.5) gm/dL Hct (39.0-53.0) % MCV (80.0-100.0) fL RDW (11.5-15.5) % Neutrophils # (1.3-7.7) k/uL Neutrophils # (Manual) 25.14 H (1.3-7.7) k/uL Lymphocytes # (1.0-4.8) k/uL Lymphocytes # (Manual) 0.58 L (1.0-4.8) k/uL Monocytes # (0-1.0) k/uL Monocytes # (Manual) 2.89 H (0-1.0) k/uL Metamyelocytes # (Man) 0.29 H (0) k/uL Myelocytes # (Manual) 0.29 H (0) k/uL Chloride 108 H (98-107) mmol/L BUN 68 H (9-20) mg/dL Glucose 135 H (74-99) mg/dL POC Glucose (mg/dL) 244 H (75-99) mg/dL ALT (4-49) U/L Total Protein 5.5 L (6.3-8.2) g/dL Albumin 2.4 L (3.5-5.0) g/dL 01/31/21 02/01/21 02/01/21 Range/Units 16:23 00:09 06:13 WBC (3.8-10.6) k/uL RBC (4.30-5.90) m/uL Hgb (13.0-17.5) gm/dL Hct (39.0-53.0) % MCV (80.0-100.0) fL RDW (11.5-15.5) % Neutrophils # (1.3-7.7) k/uL Neutrophils # (Manual) (1.3-7.7) k/uL Lymphocytes # (1.0-4.8) k/uL Lymphocytes # (Manual) (1.0-4.8) k/uL Monocytes # (0-1.0) k/uL Monocytes # (Manual) (0-1.0) k/uL Metamyelocytes # (Man) (0) k/uL Myelocytes # (Manual) (0) k/uL Chloride (98-107) mmol/L BUN (9-20) mg/dL Glucose (74-99) mg/dL POC Glucose (mg/dL) 135 H 152 H 199 H (75-99) mg/dL ALT (4-49) U/L Total Protein (6.3-8.2) g/dL Albumin (3.5-5.0) g/dL 02/01/21 02/01/21 Range/Units 07:28 07:28 WBC 22.2 H (3.8-10.6) k/uL RBC 3.17 L (4.30-5.90) m/uL Hgb 9.9 L (13.0-17.5) gm/dL Hct 31.8 L (39.0-53.0) % MCV 100.3 H (80.0-100.0) fL RDW 16.1 H (11.5-15.5) % Neutrophils # 20.5 H (1.3-7.7) k/uL Neutrophils # (Manual) (1.3-7.7) k/uL Lymphocytes # 0.3 L (1.0-4.8) k/uL Lymphocytes # (Manual) (1.0-4.8) k/uL Monocytes # 1.2 H (0-1.0) k/uL Monocytes # (Manual) (0-1.0) k/uL Metamyelocytes # (Man) (0) k/uL Myelocytes # (Manual) (0) k/uL Chloride 109 H (98-107) mmol/L BUN 61 H (9-20) mg/dL Glucose 129 H (74-99) mg/dL POC Glucose (mg/dL) (75-99) mg/dL ALT 64 H (4-49) U/L Total Protein 5.7 L (6.3-8.2) g/dL Albumin 2.5 L (3.5-5.0) g/dL Microbiology - Last 24 Hours (Table) 01/29/21 07:50 Blood Culture - Preliminary Blood No Growth after 72 hours
[2021-02-02] MEDS: INSULIN ASPART (NovoLOG) 100 UNIT/ML VIAL SQ SCH ×4 (05:46→19:07)
[2021-02-02 06:05] LABS: Glucose,Whole Blood 319 mg/dL (75-99)
[2021-02-02] MEDS: 1: MVI, ADULT NO.4 WITH VIT K 10 ML, TRACE (CONC-1ML/DOSE) 1 ML, SODIUM PHOSPHATE 15 MMO IV SCH ×27 (07:08→21:38)
[2021-02-02] MEDS: SYMBICORT 80-4.5 MCG INHALER INHALATION SCH ×2 (08:22→19:11)
[2021-02-02] MEDS: IPRATROPIUM-ALBUTEROL 3 ML NEB INHALATION SCH ×4 (08:22→19:11)
[2021-02-02] MEDS: FUROSEMIDE 20 MG TAB PO SCH (08:23)
[2021-02-02] MEDS: ASPIRIN 81 MG PO SCH (08:23)
[2021-02-02] MEDS: cloNIDine HCL 0.1 MG TAB PO SCH ×3 (08:23→21:25)
[2021-02-02] MEDS: PANTOPRAZOLE 40 MG/10 ML VIAL IVP SCH ×2 (08:23→21:24)
[2021-02-02] MEDS: methylPREDNISolone SOD SUCCI 40 MG/ML 1 ML VIAL IV SCH ×2 (08:23→21:24)
[2021-02-02] MEDS: GABAPENTIN 300 MG CAP PO SCH ×2 (08:23→17:12)
[2021-02-02] MEDS: METOPROLOL TARTRATE 50 MG TAB PO SCH ×2 (08:23→21:25)
[2021-02-02] MEDS: AMIODARONE 200 MG TAB PO SCH ×2 (08:24→21:25)
[2021-02-02] MEDS: amLODIPine 10 MG TAB PO SCH (08:24)
[2021-02-02] MEDS: DOCUSATE 100 MG CAP PO SCH (09:14)
--- NOTE | 2021-02-02 11:51 | P.PN ---
Subjective Progress Note Date: 02/02/21 Principal diagnosis: A. fib with RVR, dyspnea, weakness This is Lalo morales NP, dictating a progress note on behalf of Dr. Vaughan. Patient was interviewed and examined. Patient is a pleasant 65-year-old male who was originally consult for atrial fibrillation and congestive heart failure. Patient continues to be confused. While in the room he is screaming for someone to find his stepdaughter. Patient recently underwent a left [id number]-vua-wcep amputation. 40 mg of Lasix was given yesterday as a one-time dose for shortness of breath. Patient appears to be better today. Patient continues on amlodipine 10 mg daily, along with clonidine 0.13 times a day, in addition to metoprolol 100 mg twice a day. Both his heart rate and his blood pressure appear to be improved today. GENERAL: Well-appearing, well-nourished and in no acute distress. NECK: Supple without JVD or thyromegaly. LUNGS: Breath sounds clear to auscultation bilaterally. Respiration equal and unlabored. No wheezes, rales or rhonchi. HEART: Regular rate and rhythm without murmurs, rubs or gallops. S1 and S2 heard. EXTREMITIES: Normal range of motion, no edema. No clubbing or cyanosis. Peripheral pulses intact and strong. VITALS: [Temp 97.9, pulse rate 83, respirations 20, blood pressure 132/62, pulse ox 97% on 2 L via nasal cannula.] TELEMETRY: [Atrial fibrillation rate controlled] LABS: [White count 22.2, hemoglobin 9.9, platelets 361, sodium 140, potassium 4.8, B1 61, creatinine 1.07, calcium 8.8, magnesium 2.0] IMPRESSION/PLAN: 1. Diastolic congestive heart failure, acute-patient is improved today with one dose of 40 mg of IV Lasix. Continue to monitor. 2. Paroxysmal atrial fibrillation-patient is currently rate controlled with metoprolol 100 mg twice a day. Continue as prescribed. 3. Coronary artery disease status post stenting-blood pressures controlled with amlodipine 10 mg daily, as well as clonidine 0.1 mg 3 times a day. Continue medicines as prescribed. 4. Severe peripheral vascular disease, status post amputation-managed by medical and surgical team. The patient has been seen and evaluated. Plan of care has been reviewed and agreed upon by Dr. Vaughan. Objective - Vital Signs Vital signs: Vital Signs Temp 97.9 F 02/02/21 04:00 Pulse 83 02/02/21 04:00 Resp 20 02/02/21 08:17 BP 132/62 02/02/21 04:00 Pulse Ox 97 02/02/21 04:00 Intake & Output 02/01/21 02/02/21 02/02/21 18:59 06:59 18:59 Intake Total 378 240 Output Total 1950 1875 Balance -1572 -1875 240 Weight 66.1 kg 57.3 kg Intake: IV 20 Invasive Line 9 20 Oral 358 240 Output: Urine 1850 775 Stool 100 1100 Other: Voiding Method Indwelling Catheter Indwelling Catheter Indwelling Catheter - Labs CBC & Chem 7: 02/01/21 07:28 02/01/21 07:28 Labs: Abnormal Lab Results - Last 24 Hours (Table) 02/01/21 02/01/21 02/02/21 Range/Units 12:04 23:18 06:03 POC Glucose (mg/dL) 170 H 118 H 319 H (75-99) mg/dL Microbiology - Last 24 Hours (Table) 01/29/21 07:50 Blood Culture - Preliminary Blood No Growth after 96 hours
[2021-02-02 12:07] LABS: Glucose,Whole Blood 196 mg/dL (75-99)
--- NOTE | 2021-02-02 14:27 | P.PN ---
Subjective Progress Note Date: 02/02/21 This is a 65-year-old male who was recently admitted with acute severe left leg infection and underwent left above the knee amputation. Patient is being closely monitored by multiple medical consultations including ID and cardiology. Patient continues to be confused but much more awake today. Family at the bedside today and possible ecf being planned. Patient continues on IV invanz and will continue. Patient is afebrile. No chest pain reported. 02/02/2021 Patient is seen and evaluated and follow-up this morning extremely lethargic and minimally arousable and continues to be closely monitored. Discussed with nursing staff about avoiding narcotics and will discontinue IV Dilaudid as patient was given a dose this morning and is somnolent. Per nursing staff patient becoming agitated at times when arousable. Will Add low dose Seroquel. Patient is continued on IV antibiotics in the form of Invanz with infectious disease following closely. Patient also continues on IV steroids and breathing inhalational treatments and will continue. No new labs today and will reorder labs. Review of systems: Unable to obtain given patient continues to be confused and lethargic today Active Medications Acetaminophen (Acetaminophen Tab 325 Mg Tab) 650 mg PO Q4H PRN PRN Reason: Pain or Fever > 100.5 Last Admin: 02/01/21 03:32 Dose: 650 mg Documented by: Albuterol/Ipratropium (Ipratropium-Albuterol 3 Ml Neb) 3 ml INHALATION RT-QID [facility] Last Admin: 02/02/21 12:40 Dose: Not Given Documented by: Amiodarone HCl (Amiodarone 200 Mg Tab) 200 mg PO BID [facility] Last Admin: 02/02/21 08:24 Dose: 200 mg Documented by: Amlodipine Besylate (Amlodipine 10 Mg Tab) 10 mg PO DAILY [facility] Last Admin: 02/02/21 08:24 Dose: 10 mg Documented by: Artificial Tears (Artificial Tears-Hypromellose Drops 15 Ml Btl) 1 drops RIGHT EYE Q6H PRN PRN Reason: DRY EYES Aspirin (Aspirin 81 Mg) 81 mg PO DAILY [facility] Last Admin: 02/02/21 08:23 Dose: 81 mg Documented by: Budesonide/Formoterol Fumarate (Symbicort 80-4.5 Mcg Inhaler) 2 puff INHALATION RT-BID [facility] Last Admin: 02/02/21 08:22 Dose: Not Given Documented by: Clonidine (Clonidine Hcl 0.1 Mg Tab) 0.1 mg PO TID [facility] Last Admin: 02/02/21 08:23 Dose: 0.1 mg Documented by: Docusate Sodium (Docusate 100 Mg Cap) 100 mg PO DAILY [facility] Last Admin: 02/02/21 09:14 Dose: Not Given Documented by: Furosemide (Furosemide 20 Mg Tab) 20 mg PO DAILY [facility] Last Admin: 02/02/21 08:23 Dose: 20 mg Documented by: Gabapentin (Gabapentin 300 Mg Cap) 300 mg PO Q8HR [facility] Last Admin: 02/02/21 08:23 Dose: 300 mg Documented by: Heparin Sodium (Porcine) (Heparin Sodium 1,000 Un/Ml (10ml Vl)) 0 unit IV PER PROTOCOL PRN; Protocol PRN Reason: Low PTT Last Admin: 01/24/21 07:49 Dose: 1,355 unit Documented by: Fat Emulsion Intravenous 500 (ml/ IV Solution) 500 mls @ 21 mls/hr IV WEEKLY [facility] Last Admin: 01/28/21 16:35 Dose: 21 mls/hr Documented by: Lactated Ringer's (Lactated Ringers) 1,000 mls @ 20 mls/hr IV .Q24H [facility] Last Admin: 02/01/21 18:45 Dose: Not Given Documented by: Parenteral Vitamin Supplement 10 ml/ Zinc/Copper/Manganese/Selenium 1 ml/ Sodium Phosphate 15 mmol/ Sodium Chloride 60 meq/ Sodium Acetate 14 meq/ Potassium Chloride 20 meq/ Magnesium Sulfate 0.5 gm/ Calcium Gluconate 1 gm/ Amino Ac ids/Dextrose 1,059 mls @ 80 mls/hr IV .BY DURATION [facility] Last Admin: 02/02/21 07:08 Dose: 80 mls/hr Documented by: Sodium Phosphate 15 mmol/Sodium Chloride 60 meq/ Sodium Acetate 14 meq/ Potassium Chloride 20 meq/ Magnesium Sulfate 0.5 gm/ Calcium Gluconate 1 gm/ Amino Acids/Dextrose 1,048 mls @ 80 mls/hr IV .BY DURATION [facility] Last Admin: 02/01/21 18:58 Dose: 80 mls/hr Documented by: Ertapenem 1 gm/ Sodium (Chloride) 50 mls @ 100 mls/hr IVPB DAILY@1800 [facility]; Protocol Last Admin: 02/01/21 17:37 Dose: 100 mls/hr Documented by: Insulin Aspart (Insulin Aspart (Novolog) 100 Unit/Ml Vial) 0 unit SQ Q6H [facility]; Protocol Last Admin: 02/02/21 06:22 Dose: 5 unit Documented by: Lidocaine HCl (Lidocaine 1% (10mg/Ml) For Iv Start) 0.1 ml INTRADERMA PER PROTOCOL PRN PRN Reason: IV Start Methylprednisolone Sodium Succinate (Methylprednisolone Sod Succi 40 Mg/Ml 1 Ml Vial) 40 mg IV Q12HR [facility] Last Admin: 02/02/21 08:23 Dose: 40 mg Documented by: Metoprolol Tartrate (Metoprolol Tartrate 50 Mg Tab) 100 mg PO BID [facility] Last Admin: 02/02/21 08:23 Dose: 100 mg Documented by: Miscellaneous Information (Magnesium Replacement Protocol 1 Each Misc) 1 each MISCELLANE DAILY PRN; Protocol PRN Reason: Per Protocol Miscellaneous Information (Potassium Replacement Protocol 1 Each Misc) 1 each MISCELLANE DAILY PRN; Protocol PRN Reason: Per Protocol Ondansetron HCl (Ondansetron 4 Mg/2 Ml Vial) 4 mg IVP Q6HR PRN PRN Reason: Nausea And Vomiting Last Admin: 01/16/21 01:07 Dose: 4 mg Documented by: Pantoprazole Sodium (Pantoprazole 40 Mg/10 Ml Vial) 40 mg IVP BID [facility] Last Admin: 02/02/21 08:23 Dose: 40 mg Documented by: Sodium Chloride (Sodium Chloride 0.9% Flush 10 Ml Syringe) 10 ml IV Q4HR PRN PRN Reason: PICC Line Sodium Chloride (Sodium Chloride 0.9% Flush 10 Ml Syringe) 10 ml IV WEEKLY [facility] Last Admin: 02/01/21 09:30 Dose: 10 ml Documented by: Sodium Chloride (Sodium Chloride 0.9% Flush 10 Ml Syringe) 20 ml IV Q4HR PRN PRN Reason: PICC Line Physical exam: Gen: This is 65-year-old male who is extremely lethargic and minimally arousable, thin built, confused.. Temp is 97.9 F, pulse is 83, respirations are 20, blood pressure is 132/62, oxygen saturation is 97% on 2 L via nasal cannula HEENT: Head is atraumatic, normocephalic. Pupils equal, round. Sclerae is anicteric. NECK: Supple. No JVD. No lymphadenopathy. No thyromegaly. LUNGS: Breath sounds are diminished at the bases with mild expiratory wheezing, course rhonchi noted. No intercostal retractions. HEART: S1, S2 are muffled ABDOMEN: Soft. thin. Bowel sounds are present. No masses. No tenderness. EXTREMITIES: No pedal edema. No calf tenderness. status post left aka with dressing intact NEUROLOGICAL: Lethargic, minimally arousable, no focal deficits, diffusely weak Assessment: Acute severe left leg infection with necrotic lesions, possible ischemic leg acute severe sepsis and septic shock and severe hypotension, present on admission, status post left [id number] amputation Atrial fibrillation with a fast ventricular rate ESBL Klebsiella pneumonia Change in mental status acute metabolic encephalopathy, multifactorial Acute bilateral aspiration pneumonia with acute hypoxic respiratory failure, was briefly in the ICU On TPN Vomiting and coffee-ground emesis with possible upper GI bleeding, improved Anemia, acute blood loss anemia possibly, stable Abdominal distention, possible acute small bowel obstruction versus ileus, present on admission, improved hyponatremia Hypokalemia History of recent transmetatarsal amputation as well as bypass surgery 3 weeks ago at [facility] on the left leg peripheral vascular disease, severe history of coronary artery disease chronic anemia acute kidney injury with acute tubular necrosis chronic obstructive pulmonary disease Hypertension chronic debility history of protein calorie malnutrition Sacral decubitus ulcer, stage III History of nicotine dependence History of GI and DVT prophylaxis Hyponatremia Hypoalbuminemia with mild protein calorie malnutrition Increased white count no code, no CPR, no vent Plan: Recommend to continue with current medications and management and symptomatic treatment. Recommend to continue with IV INvanz and will need IV abx on discharge. ECF possibly being planned and will discuss with social work about placement. Patient is weak and recommend PT/OT daily. Encouraged with nursing staff about avoiding narcotics and will discontinue IV Dilaudid as patient was given a dose this morning and extremely lethargic and minimally arousable and unresponsive. Per nursing staff patient is becoming agitated at times and will add low-dose Seroquel. encouraged opening shades during the day and encouraging increased activity and family visits for frequent reorientation. Avoid LOOP MACHINE OPERATOR and narotic agents if possible and limit use. Due to multiple complex medical issues prognosis is guarded. Will Continue to monitor closely and repeat labs. Objective - Vital Signs Vital signs: Vital Signs Temp 97.9 F 02/02/21 04:00 Pulse 83 02/02/21 04:00 Resp 20 02/02/21 08:17 BP 132/62 02/02/21 04:00 Pulse Ox 97 02/02/21 04:00 Intake & Output 02/01/21 02/02/21 02/02/21 18:59 06:59 18:59 Intake Total 378 Output Total 1950 1875 Balance -1572 -1875 Weight 66.1 kg 57.3 kg Intake: IV 20 Invasive Line 9 20 Oral 358 Output: Urine 1850 775 Stool 100 1100 Other: Voiding Method Indwelling Catheter Indwelling Catheter Indwelling Catheter - Labs CBC & Chem 7: 02/01/21 07:28 02/01/21 07:28 Labs: Abnormal Lab Results - Last 24 Hours (Table) 02/01/21 02/01/21 02/02/21 Range/Units 12:04 23:18 06:03 POC Glucose (mg/dL) 170 H 118 H 319 H (75-99) mg/dL Microbiology - Last 24 Hours (Table) 01/29/21 07:50 Blood Culture - Preliminary Blood No Growth after 72 hours
--- NOTE | 2021-02-02 15:41 | P.PN ---
Subjective Progress Note Date: 02/02/21 CHIEF COMPLAINT: Bowel obstruction HISTORY OF PRESENT ILLNESS: The patient is a 65-year-old male with recent bowel obstruction and SMA syndrome. He is status post below the knee amputation. He is sitting up in the chair. No abdominal apin. ROS: No reports of nausea and vomiting. No bowel movements. No fevers or chills. No new chest pain. PHYSICAL EXAM: VITAL SIGNS: Reviewed CONSTITUTIONAL: Well developed and in no acute distress. EYES: Conjuctivae without sclera icterus. Extraocular movements grossly intact. HEAD, EARS, NOSE, THROAT: Moist buccal mucosa. Head is atraumatic, normocephal ic. Hears conversational speech. No nasal drainage. NECK: Supple. No thyroidomegaly. RESPIRATORY: Non-labored respirations and equal bilateral excursions. CARDIOVASCULAR: 2+ radial pulses. ABDOMEN: No peritonitis. Scaphoid MUSCULOSKELETAL: No clubbing. No cyanosis. SKIN: Good skin turgor. Well perfused. NEUROLOGIC: Cranial nerves I through XII grossly intact. No focal or lateralizing signs. PSYCH: Appropriate affect. Alert and oriented to person, place and time. CLINICAL LABS: Reviewed. BSG 190s to 300s ASSESSMENT: 1. Bowel obstruction/SMA syndrome 2. Peripheral vascular occlussive disease s/p below the knee amputation 3. Sepsis PLAN: 1. Diet as tolerated 2. Continue IV antibiotics Objective - Vital Signs Vital signs: Vital Signs Temp 98.0 F 02/02/21 12:00 Pulse 76 02/02/21 12:00 Resp 18 02/02/21 12:00 BP 122/78 02/02/21 12:00 Pulse Ox 94 L 02/02/21 12:00 Intake & Output 02/01/21 02/02/21 02/02/21 18:59 06:59 18:59 Intake Total 378 240 Output Total 1950 1875 Balance -1572 -1875 240 Weight 66.1 kg 57.3 kg Intake: IV 20 Invasive Line 9 20 Oral 358 240 Output: Urine 1850 775 Stool 100 1100 Other: Voiding Method Indwelling Catheter Indwelling Catheter Indwelling Catheter - Labs CBC & Chem 7: 02/01/21 07:28 02/01/21 07:28 Labs: Abnormal Lab Results - Last 24 Hours (Table) 02/01/21 02/02/21 02/02/21 Range/Units 23:18 06:03 12:05 POC Glucose (mg/dL) 118 H 319 H 196 H (75-99) mg/dL Microbiology - Last 24 Hours (Table) 01/29/21 07:50 Blood Culture - Preliminary Blood No Growth after 96 hours Assessment and Plan (1) Peripheral vascular disease Current Visit: Yes Status: Acute Code(s): I73.9 - PERIPHERAL VASCULAR DISEASE, UNSPECIFIED SNOMED Code(s): 109701429 (2) Below knee amputation Current Visit: Yes Status: Acute Code(s): S88.119A - COMPLETE TRAUM AMP AT LEV BETW KN & ANKL, UNSP LOW LEG, INIT SNOMED Code(s): 898106244 (3) SMAS (superior mesenteric artery syndrome) Current Visit: Yes Status: Acute Code(s): K55.1 - CHRONIC VASCULAR DISORDERS OF INTESTINE SNOMED Code(s): 124619465 (4) Small bowel obstruction Current Visit: Yes Status: Acute Code(s): K56.609 - UNSP INTESTNL OBST, UNSP TO PARTIAL VERSUS COMPLETE OBST SNOMED Code(s): 620875325
[2021-02-02] MEDS: LACTATED RINGERS 1,000 ML IV SCH (15:42)
--- NOTE | 2021-02-02 18:02 | PN ---
PROGRESS NOTE DATE OF SERVICE: 02/02/2021 REASON FOR FOLLOWUP: ESBL Klebsiella pneumonia. INTERVAL HISTORY: Patient is afebrile. The patient is hemodynamically stable. The patient denies any chest pain, shortness of breath. No worsening cough. No abdominal pain. No diarrhea. PHYSICAL EXAMINATION: Blood pressure 152/78 with a pulse of 76, temperature 98. He is 94% on 2 L nasal cannula. General description is an elderly male lying in bed in no distress. Respiratory system: Unlabored breathing, decreased breath sounds in the bases. No wheeze. Heart S1, S2. Regular rate and rhythm. Abdomen: Soft. No tenderness. LABS: Hemoglobin 9.9, white count 22.0, creatinine 1.07. DIAGNOSTIC IMPRESSION AND PLAN: 1. Patient with ESBL Klebsiella pneumonia, covered with Invanz. 2. Elevated white count, multifactorial, with possible component of steroids, slowly trending down. 3. Continue supportive care. MMODL / IJN: [id number] /
[2021-02-02] MEDS: ERTAPENEM 1 GM in SODIUM CHLORIDE 0.9% 50 ML IVPB SCH (18:23)
[2021-02-02] MEDS: QUEtiapine 25 MG TAB PO SCH (21:25)
[2021-02-02 23:58] LABS: Glucose,Whole Blood 152 mg/dL (75-99)
[2021-02-03] MEDS: INSULIN ASPART (NovoLOG) 100 UNIT/ML VIAL SQ SCH ×4 (00:24→18:24)
[2021-02-03] MEDS: GABAPENTIN 300 MG CAP PO SCH ×3 (00:24→16:51)
[2021-02-03 06:36] LABS: Glucose,Whole Blood 144 mg/dL (75-99)
[2021-02-03] MEDS: IPRATROPIUM-ALBUTEROL 3 ML NEB INHALATION SCH ×4 (07:35→20:35)
[2021-02-03] MEDS: SYMBICORT 80-4.5 MCG INHALER INHALATION SCH ×2 (07:35→20:35)
--- NOTE | 2021-02-03 08:31 | P.PN ---
Progress Note - Text Progress Note Date: 02/02/21 patient seen and examined. Complaining of some pain at the surgical site. VSS- Afebrile Gen: cachectic, ill appearing HEENT: EOMI, PERRL CV: regular Pulm: coarse bilaterally, poor inspiration Abd: mild tenderness, no peritonitis, no distension Ext: Left AKA site is clean, dry and intact with nolberto, some posterior bruising noted. No drainage. A/P: 1. Critical limb ischemia left lower extremity POD 1 AKA 2. Severe sepsis s/p shock 3. ESBL Klebsiella pneumonia 4. AFib 5. Anemia 6. History of left lower extremity bypass and TMA at [facility] 7. [facility] 8. COPD - offload the surgical site. Change dressings daily. Awaiting [facility] Prosthetics for protective dressing. No further surgical intervention at this time.
[2021-02-03 08:45] LABS: Anisocytosis Slight; Basophils % (A) 0 %; Eosinophils # (A) 0.1 k/uL (0-0.7); Eosinophils % (A) 0 %; HGB 11.2 gm/dL (13.0-17.5); Hypochromasia Slight; Lymphocytes # (A) 0.5 k/uL (1.0-4.8); Lymphocytes % (A) 2 %; MCH 30.6 pg (25.0-35.0); MCHC 31.9 g/dL (31.0-37.0); MCV 95.9 fL (80.0-100.0); Macrocytosis Slight; Mean Platelet Volume 8.4; Monocytes # (A) 2.2 k/uL (0-1.0); Monocytes % (A) 9 %; Neutrophils # (A) 20.8 k/uL (1.3-7.7); Neutrophils % (A) 87 %; Platelet Count 377 k/uL (150-450); RBC 3.65 m/uL (4.30-5.90); RDW 16.8 % (11.5-15.5); WBC 23.9 k/uL (3.8-10.6)
[2021-02-03 09:15] LABS: ALT 37 U/L (4-49); AST 21 U/L (17-59); African American GFR (CKD) >90 (>60 ml/min/1.73 sqM); Albumin 2.5 g/dL (3.5-5.0); Alkaline Phosphatase 80 U/L (38-126); Anion Gap 5 mmol/L; Blood Urea Nitrogen 59 mg/dL (9-20); Calcium 8.6 mg/dL (8.4-10.2); Carbon Dioxide 23 mmol/L (22-30); Chloride 110 mmol/L (98-107); Glucose 121 mg/dL (74-99); Magnesium 1.9 mg/dL (1.6-2.3); Non-African American GFR(CKD) 87 (>60 ml/min/1.73 sqM); Phosphorus 3.3 mg/dL (2.5-4.5); Potassium 3.9 mmol/L (3.5-5.1); Sodium 138 mmol/L (137-145); Total Bilirubin 0.4 mg/dL (0.2-1.3); Total Protein 5.8 g/dL (6.3-8.2)
[2021-02-03] MEDS: PANTOPRAZOLE 40 MG/10 ML VIAL IVP SCH ×2 (10:02→21:46)
[2021-02-03] MEDS: methylPREDNISolone SOD SUCCI 40 MG/ML 1 ML VIAL IV SCH ×2 (10:02→21:45)
[2021-02-03] MEDS: amLODIPine 10 MG TAB PO SCH (10:02)
[2021-02-03] MEDS: FUROSEMIDE 20 MG TAB PO SCH (10:02)
[2021-02-03] MEDS: AMIODARONE 200 MG TAB PO SCH ×2 (10:02→21:44)
[2021-02-03] MEDS: METOPROLOL TARTRATE 50 MG TAB PO SCH ×2 (10:03→21:44)
[2021-02-03] MEDS: ASPIRIN 81 MG PO SCH (10:03)
[2021-02-03] MEDS: DOCUSATE 100 MG CAP PO SCH (10:03)
[2021-02-03] MEDS: cloNIDine HCL 0.1 MG TAB PO SCH ×3 (10:03→21:45)
[2021-02-03] MEDS: 1: MVI, ADULT NO.4 WITH VIT K 10 ML, TRACE (CONC-1ML/DOSE) 1 ML, SODIUM PHOSPHATE 15 MMO IV SCH ×9 (11:27)
--- NOTE | 2021-02-03 11:57 | P.PN ---
Subjective Progress Note Date: 02/03/21 Principal diagnosis: A. fib with RVR, dyspnea, weakness This is Lalo morales NP, dictating a progress note on behalf of Dr. Vaughan. Patient was interviewed and examined. Patient's a pleasant 65-year-old male who originally consulted for atrial fibrillation and congestive heart failure. Patient continues to be confused. Patient is status post left [id number] amputation. Nursing reports the patient's shortness of breath appears to be improved today. GENERAL: Well-appearing, well-nourished and in no acute distress. NECK: Supple without JVD or thyromegaly. LUNGS: Breath sounds clear to auscultation bilaterally. Respiration equal and unlabored. No wheezes, rales or rhonchi. HEART: Regular rate and rhythm without murmurs, rubs or gallops. S1 and S2 heard. EXTREMITIES: Normal range of motion, no edema. No clubbing or cyanosis. Peripheral pulses intact and strong. VITALS: [Temp 97.9, pulse rate 65, respirations 20, blood pressure 130/78, O2 saturation 96% on 2 L nasal cannula] TELEMETRY: [Rate controlled atrial fibrillation] LABS: [White count 23.9, hemoglobin 11.2, platelets 377, sodium 138, potassium 3.9, BUN 59, creatinine 0.91, calcium 8.6, magnesium 1.9] IMPRESSION/PLAN: [1. Diastolic congestive heart failure, acute-patient can continue on Lasix 20 mg daily 2. Paroxysmal atrial fibrillation-continue metoprolol 100 mg twice a day. 3. Coronary artery disease status post stenting-continue amlodipine and clonidine. The patient has been seen and evaluated. Plan of care has been reviewed and agreed upon by Dr. Vaughan.] Objective - Vital Signs Vital signs: Vital Signs Temp 97.9 F 02/03/21 08:33 Pulse 103 H 02/03/21 08:33 Resp 20 02/03/21 08:33 BP 130/78 02/03/21 08:33 Pulse Ox 96 02/03/21 08:33 Intake & Output 02/02/21 02/03/21 02/03/21 18:59 06:59 18:59 Intake Total 1406 1419 1284 Output Total 950 1500 Balance 456 -81 1284 Weight 58.3 kg Intake: Intake, IV Titration 1048 1299 1048 Amount Lactated Ringers 1,000 ml 240 @ 20 mls/hr IV .Q24H [facility] Rx#:[id number] Mvi, Adult No.4 with Vit 1059 K 10 ml Trace (Conc-1Ml/ Dose) 1 ml Sodium Phosphate 15 mmol Sodium Chloride 4Meq/ml Vial 60 meq Sodium Acetate 14 meq Potassium Chloride 20 meq Magnesium Sulfate gm 0.5 gm Calcium Gluconate 1 gm In Amino Acids 5 %/ Dextrose 20 % 1,000 ml @ 80 mls/hr IV .BY DURATION [facility] Rx#:[id number] Sodium Phosphate 15 mmol 1048 1048 Sodium Chloride 4Meq/ml Vial 60 meq Sodium Acetate 14 meq Potassium Chloride 20 meq Magnesium Sulfate gm 0.5 gm Calcium Gluconate 1 gm In Amino Acids 5 %/Dextrose 20 % 1,000 ml @ 80 mls/ hr IV .BY DURATION [facility] Rx #:[id number] Oral 358 120 236 Output: Urine 950 1100 Stool 400 Other: Voiding Method Indwelling Catheter Indwelling Catheter Indwelling Catheter - Labs CBC & Chem 7: 02/03/21 08:23 02/03/21 08:23 Labs: Abnormal Lab Results - Last 24 Hours (Table) 02/02/21 02/02/21 02/03/21 Range/Units 12:05 23:52 05:58 WBC (3.8-10.6) k/uL RBC (4.30-5.90) m/uL Hgb (13.0-17.5) gm/dL Hct (39.0-53.0) % RDW (11.5-15.5) % Neutrophils # (1.3-7.7) k/uL Lymphocytes # (1.0-4.8) k/uL Monocytes # (0-1.0) k/uL Chloride (98-107) mmol/L BUN (9-20) mg/dL Glucose (74-99) mg/dL POC Glucose (mg/dL) 196 H 152 H 144 H (75-99) mg/dL Total Protein (6.3-8.2) g/dL Albumin (3.5-5.0) g/dL 02/03/21 02/03/21 Range/Units 08:23 08:23 WBC 23.9 H (3.8-10.6) k/uL RBC 3.65 L (4.30-5.90) m/uL Hgb 11.2 L (13.0-17.5) gm/dL Hct 35.0 L (39.0-53.0) % RDW 16.8 H (11.5-15.5) % Neutrophils # 20.8 H (1.3-7.7) k/uL Lymphocytes # 0.5 L (1.0-4.8) k/uL Monocytes # 2.2 H (0-1.0) k/uL Chloride 110 H (98-107) mmol/L BUN 59 H (9-20) mg/dL Glucose 121 H (74-99) mg/dL POC Glucose (mg/dL) (75-99) mg/dL Total Protein 5.8 L (6.3-8.2) g/dL Albumin 2.5 L (3.5-5.0) g/dL Microbiology - Last 24 Hours (Table) 01/29/21 07:50 Blood Culture - Preliminary Blood No Growth after 120 hours
[2021-02-03 12:47] LABS: Glucose,Whole Blood 170 mg/dL (75-99)
[2021-02-03] MEDS ORDERED: HYDROcodone/APAP 5-325MG 1 EACH TAB PO PRN (13:25)
--- NOTE | 2021-02-03 14:14 | P.PN ---
Subjective Progress Note Date: 02/03/21 CHIEF COMPLAINT: Bowel obstruction HISTORY OF PRESENT ILLNESS: The patient is a 65-year-old male with recent bowel obstruction and SMA syndrome. He is status post below the knee amputation. No new complaints. ROS: No reports of nausea and vomiting. No fevers or chills. No new chest pain. PHYSICAL EXAM: VITAL SIGNS: Reviewed CONSTITUTIONAL: Well developed and in no acute distress. EYES: Conjuctivae without sclera icterus. Extraocular movements grossly intact. HEAD, EARS, NOSE, THROAT: Moist buccal mucosa. Head is atraumatic, normocephalic. Hears conversational speech. No nasal drainage. NECK: Supple. No thyroidomegaly. RESPIRATORY: Non-labored respirations and equal bilateral excursions. CARDIOVASCULAR: 2+ radial pulses. ABDOMEN: No peritonitis. Scaphoid MUSCULOSKELETAL: No clubbing. No cyanosis. Has BKA SKIN: Good skin turgor. Well perfused. NEUROLOGIC: Cranial nerves I through XII grossly intact. No focal or lateralizing signs. PSYCH: Appropriate affect. Alert and oriented to person, place and time. CLINICAL LABS: Reviewed. BSG 190s to 300s. WBC over 23,000 ASSESSMENT: 1. Bowel obstruction/SMA syndrome 2. Peripheral vascular occlussive disease s/p below the knee amputation 3. Sepsis PLAN: 1. Continue IV antibiotics 2. Diet as tolerated Objective - Vital Signs Vital signs: Vital Signs Temp 97.8 F 02/03/21 12:00 Pulse 68 02/03/21 12:00 Resp 16 02/03/21 12:00 BP 115/78 02/03/21 12:00 Pulse Ox 93 L 02/03/21 12:00 Intake & Output 02/02/21 02/03/21 02/03/21 18:59 06:59 18:59 Intake Total 1406 1419 1284 Output Total 950 1500 750 Balance 456 -81 534 Weight 58.3 kg Intake: Intake, IV Titration 1048 1299 1048 Amount Lactated Ringers 1,000 ml 240 @ 20 mls/hr IV .Q24H [facility] Rx#:[id number] Mvi, Adult No.4 with Vit 1059 K 10 ml Trace (Conc-1Ml/ Dose) 1 ml Sodium Phosphate 15 mmol Sodium Chloride 4Meq/ml Vial 60 meq Sodium Acetate 14 meq Potassium Chloride 20 meq Magnesium Sulfate gm 0.5 gm Calcium Gluconate 1 gm In Amino Acids 5 %/ Dextrose 20 % 1,000 ml @ 80 mls/hr IV .BY DURATION [facility] Rx#:[id number] Sodium Phosphate 15 mmol 1048 1048 Sodium Chloride 4Meq/ml Vial 60 meq Sodium Acetate 14 meq Potassium Chloride 20 meq Magnesium Sulfate gm 0.5 gm Calcium Gluconate 1 gm In Amino Acids 5 %/Dextrose 20 % 1,000 ml @ 80 mls/ hr IV .BY DURATION [facility] Rx #:[id number] Oral 358 120 236 Output: Urine 950 1100 750 Stool 400 Other: Voiding Method Indwelling Catheter Indwelling Catheter Indwelling Catheter - Labs CBC & Chem 7: 02/03/21 08:23 02/03/21 08:23 Labs: Abnormal Lab Results - Last 24 Hours (Table) 02/02/21 02/03/21 02/03/21 Range/Units 23:52 05:58 08:23 WBC (3.8-10.6) k/uL RBC (4.30-5.90) m/uL Hgb (13.0-17.5) gm/dL Hct (39.0-53.0) % RDW (11.5-15.5) % Neutrophils # (1.3-7.7) k/uL Lymphocytes # (1.0-4.8) k/uL Monocytes # (0-1.0) k/uL Chloride 110 H (98-107) mmol/L BUN 59 H (9-20) mg/dL Glucose 121 H (74-99) mg/dL POC Glucose (mg/dL) 152 H 144 H (75-99) mg/dL Total Protein 5.8 L (6.3-8.2) g/dL Albumin 2.5 L (3.5-5.0) g/dL 02/03/21 02/03/21 Range/Units 08:23 12:45 WBC 23.9 H (3.8-10.6) k/uL RBC 3.65 L (4.30-5.90) m/uL Hgb 11.2 L (13.0-17.5) gm/dL Hct 35.0 L (39.0-53.0) % RDW 16.8 H (11.5-15.5) % Neutrophils # 20.8 H (1.3-7.7) k/uL Lymphocytes # 0.5 L (1.0-4.8) k/uL Monocytes # 2.2 H (0-1.0) k/uL Chloride (98-107) mmol/L BUN (9-20) mg/dL Glucose (74-99) mg/dL POC Glucose (mg/dL) 170 H (75-99) mg/dL Total Protein (6.3-8.2) g/dL Albumin (3.5-5.0) g/dL Microbiology - Last 24 Hours (Table) 01/29/21 07:50 Blood Culture - Preliminary Blood No Growth after 120 hours Assessment and Plan (1) Peripheral vascular disease Current Visit: Yes Status: Acute Code(s): I73.9 - PERIPHERAL VASCULAR DISEASE, UNSPECIFIED SNOMED Code(s): 435351060 (2) Below knee amputation Current Visit: Yes Status: Acute Code(s): S88.119A - COMPLETE TRAUM AMP AT LEV BETW KN & ANKL, UNSP LOW LEG, INIT SNOMED Code(s): 937802083 (3) SMAS (superior mesenteric artery syndrome) Current Visit: Yes Status: Acute Code(s): K55.1 - CHRONIC VASCULAR DISORDERS OF INTESTINE SNOMED Code(s): 420761242 (4) Small bowel obstruction Current Visit: Yes Status: Acute Code(s): K56.609 - UNSP INTESTNL OBST, UNSP TO PARTIAL VERSUS COMPLETE OBST SNOMED Code(s): 446983868
[2021-02-03 18:11] LABS: Glucose,Whole Blood 179 mg/dL (75-99)
[2021-02-03] MEDS: ERTAPENEM 1 GM in SODIUM CHLORIDE 0.9% 50 ML IVPB SCH (18:15)
[2021-02-03] MEDS: QUEtiapine 25 MG TAB PO SCH (21:44)
[2021-02-03] MEDS: LACTATED RINGERS 1,000 ML IV SCH (21:47)
--- NOTE | 2021-02-03 22:36 | PN ---
PROGRESS NOTE DATE OF SERVICE: 02/03/2021 REASON FOR FOLLOWUP: Pneumonia. INTERVAL HISTORY: The patient is afebrile. The patient is currently breathing comfortably on nasal cannula oxygen. Denies any chest pain, shortness of breath. No worsening cough. No abdominal pain or diarrhea. PHYSICAL EXAMINATION: Blood pressure 134/71 with a temperature of 98. He is 94% on 2 L nasal cannula. General description is an elderly male lying in bed in no distress. Respiratory system: Unlabored breathing, decreased breath sounds at the base. No wheeze. Heart S1, S2. Regular rate and rhythm. Abdomen soft, no tenderness. LABS: Hemoglobin is 11.2 with a white count of 8.9, creatinine 0.91. DIAGNOSTIC IMPRESSION AND PLAN: Patient with ESBL Klebsiella pneumonia, for which the patient is covered with Invanz; to continue. White count is mildly elevated; could be related to the steroids the patient is on, as no evidence of any worsening condition. We will monitor closely. Continue supportive care. MMODL / IJN: [id number] /
--- NOTE | 2021-02-03 23:31 | P.PN ---
Subjective Progress Note Date: 02/03/21 This is a 65-year-old male who was recently admitted with acute severe left leg infection and underwent left above the knee amputation. Patient is being closely monitored by multiple medical consultations including ID and cardiology. Patient continues to be confused but much more awake today. Family at the bedside today and possible ecf being planned. Patient continues on IV invanz and will continue. Patient is afebrile. No chest pain reported. 02/02/2021 Patient is seen and evaluated and follow-up this morning extremely lethargic and minimally arousable and continues to be closely monitored. Discussed with nursing staff about avoiding narcotics and will discontinue IV Dilaudid as patient was given a dose this morning and is somnolent. Per nursing staff patient becoming agitated at times when arousable. Will Add low dose Seroquel. Patient is continued on IV antibiotics in the form of Invanz with infectious disease following closely. Patient also continues on IV steroids and breathing inhalational treatments and will continue. No new labs today and will reorder labs. 02/03/2021 Patient is seen this morning and stating that he is having pain in the chest and left lower extremity. Patient continues to be lethargic but somewhat more awake today. Patient continues on IV antibiotics with ID following closely. Patient is also on IV steroids and will transition to oral steroids. WBC is 23.9 and patient is afebrile. Patient denies any worsening of shortness of breath. Labs: White blood count is 23.9, hemoglobin is 11.2, platelets are 377, sodium is 138, potassium 3.9, BUN 59, creatinine 0.91, magnesium 1.9 Review of systems: Unable to obtain given patient continues to be confused and lethargic Active Medications Acetaminophen (Acetaminophen Tab 325 Mg Tab) 650 mg PO Q4H PRN PRN Reason: Pain or Fever > 100.5 Last Admin: 02/01/21 03:32 Dose: 650 mg Documented by: Hydrocodone Bitart/Acetaminophen (Hydrocodone/Apap 5-325mg 1 Each Tab) 0.5 each PO Q6HR PRN PRN Reason: Pain Albuterol/Ipratropium (Ipratropium-Albuterol 3 Ml Neb) 3 ml INHALATION RT-QID MARTI Last Admin: 02/03/21 11:49 Dose: Not Given Documented by: Amiodarone HCl (Amiodarone 200 Mg Tab) 200 mg PO BID [facility] Last Admin: 02/03/21 10:02 Dose: 200 mg Documented by: Amlodipine Besylate (Amlodipine 10 Mg Tab) 10 mg PO DAILY [facility] Last Admin: 02/03/21 10:02 Dose: 10 mg Documented by: Artificial Tears (Artificial Tears-Hypromellose Drops 15 Ml Btl) 1 drops RIGHT EYE Q6H PRN PRN Reason: DRY EYES Aspirin (Aspirin 81 Mg) 81 mg PO DAILY [facility] Last Admin: 02/03/21 10:03 Dose: 81 mg Documented by: Budesonide/Formoterol Fumarate (Symbicort 80-4.5 Mcg Inhaler) 2 puff INHALATION RT-BID [facility] Last Admin: 02/03/21 07:35 Dose: Not Given Documented by: Clonidine (Clonidine Hcl 0.1 Mg Tab) 0.1 mg PO TID [facility] Last Admin: 02/03/21 10:03 Dose: 0.1 mg Documented by: Docusate Sodium (Docusate 100 Mg Cap) 100 mg PO DAILY [facility] Last Admin: 02/03/21 10:03 Dose: Not Given Documented by: Furosemide (Furosemide 20 Mg Tab) 20 mg PO DAILY [facility] Last Admin: 02/03/21 10:02 Dose: 20 mg Documented by: Gabapentin (Gabapentin 300 Mg Cap) 300 mg PO Q8HR [facility] Last Admin: 02/03/21 10:02 Dose: 300 mg Documented by: Heparin Sodium (Porcine) (Heparin Sodium 1,000 Un/Ml (10ml Vl)) 0 unit IV PER PROTOCOL PRN; Protocol PRN Reason: Low PTT Last Admin: 01/24/21 07:49 Dose: 1,355 unit Documented by: Fat Emulsion Intravenous 500 (ml/ IV Solution) 500 mls @ 21 mls/hr IV WEEKLY [facility] Last Admin: 01/28/21 16:35 Dose: 21 mls/hr Documented by: Lactated Ringer's (Lactated Ringers) 1,000 mls @ 20 mls/hr IV .Q24H [facility] Last Admin: 02/02/21 15:42 Dose: Not Given Documented by: Parenteral Vitamin Supplement 10 ml/ Zinc/Copper/Manganese/Selenium 1 ml/ Sodium Phosphate 15 mmol/ Sodium Chloride 60 meq/ Sodium Acetate 14 meq/ Potassium Chloride 20 meq/ Magnesium Sulfate 0.5 gm/ Calcium Gluconate 1 gm/ Amino Acids/Dextrose 1,059 mls @ 80 mls/hr IV .BY DURATION [facility] Last Admin: 02/02/21 21:24 Dose: 80 mls/hr Documented by: Sodium Phosphate 15 mmol/Sodium Chloride 60 meq/ Sodium Acetate 14 meq/ Potassium Chloride 20 meq/ Magnesium Sulfate 0.5 gm/ Calcium Gluconate 1 gm/ Amino Acids/Dextrose 1,048 mls @ 80 mls/hr IV .BY DURATION [facility] Last Admin: 02/03/21 11:27 Dose: 80 mls/hr Documented by: Ertapenem 1 gm/ Sodium (Chloride) 50 mls @ 100 mls/hr IVPB DAILY@1800 [facility]; Protocol Last Admin: 02/02/21 18:23 Dose: 100 mls/hr Documented by: Insulin Aspart (Insulin Aspart (Novolog) 100 Unit/Ml Vial) 0 unit SQ Q6H [facility]; Protocol Last Admin: 02/03/21 06:03 Dose: 1 unit Documented by: Lidocaine HCl (Lidocaine 1% (10mg/Ml) For Iv Start) 0.1 ml INTRADERMA PER PROTOCOL PRN PRN Reason: IV Start Methylprednisolone Sodium Succinate (Methylprednisolone Sod Succi 40 Mg/Ml 1 Ml Vial) 40 mg IV Q12HR [facility] Last Admin: 02/03/21 10:02 Dose: 40 mg Documented by: Metoprolol Tartrate (Metoprolol Tartrate 50 Mg Tab) 100 mg PO BID [facility] Last Admin: 02/03/21 10:03 Dose: 100 mg Documented by: Miscellaneous Information (Magnesium Replacement Protocol 1 Each Misc) 1 each MISCELLANE DAILY PRN; Protocol PRN Reason: Per Protocol Miscellaneous Information (Potassium Replacement Protocol 1 Each Misc) 1 each MISCELLANE DAILY PRN; Protocol PRN Reason: Per Protocol Ondansetron HCl (Ondansetron 4 Mg/2 Ml Vial) 4 mg IVP Q6HR PRN PRN Reason: Nausea And Vomiting Last Admin: 01/16/21 01:07 Dose: 4 mg Documented by: Pantoprazole Sodium (Pantoprazole 40 Mg/10 Ml Vial) 40 mg IVP BID [facility] Last Admin: 02/03/21 10:02 Dose: 40 mg Documented by: Quetiapine Fumarate (Quetiapine 25 Mg Tab) 25 mg PO HS [facility] Last Admin: 02/02/21 21:25 Dose: 25 mg Documented by: Sodium Chloride (Sodium Chloride 0.9% Flush 10 Ml Syringe) 10 ml IV Q4HR PRN PRN Reason: PICC Line Sodium Chloride (Sodium Chloride 0.9% Flush 10 Ml Syringe) 10 ml IV WEEKLY MARTI Last Admin: 02/01/21 09:30 Dose: 10 ml Documented by: Sodium Chloride (Sodium Chloride 0.9% Flush 10 Ml Syringe) 20 ml IV Q4HR PRN PRN Reason: PICC Line Physical exam: Gen: This is 65-year-old male who is lethargic but arousable, thin built, confused.. Temp is 97.9 F, pulse is 103, respirations are 18, blood pressure is 130/78, oxygen saturation is 96% on 2 L via nasal cannula HEENT: Head is atraumatic, normocephalic. Pupils equal, round. Sclerae is anicteric. NECK: Supple. No JVD. No lymphadenopathy. No thyromegaly. LUNGS: Breath sounds are diminished at the bases with some scattered rhonchi noted. No intercostal retractions. HEART: S1, S2 are muffled ABDOMEN: Soft. thin. Bowel sounds are present. No masses. No tenderness. EXTREMITIES: No pedal edema. No calf tenderness. status post left aka with dressing intact NEUROLOGICAL: Lethargic, alert and oriented x2, no focal deficits, diffusely weak Assessment: Acute severe left leg infection with necrotic lesions, possible ischemic leg acute severe sepsis and septic shock and severe hypotension, present on admission, status post left [id number] amputation Atrial fibrillation with a fast ventricular rate, currently rate controlled ESBL Klebsiella pneumonia Change in mental status acute metabolic encephalopathy, multifactorial Acute bilateral aspiration pneumonia with acute hypoxic respiratory failure, was briefly in the ICU On TPN Vomiting and coffee-ground emesis with possible upper GI bleeding, improved Anemia, acute blood loss anemia possibly, stable Abdominal distention, possible acute small bowel obstruction versus ileus, present on admission, improved hyponatremia Hypokalemia History of recent transmetatarsal amputation as well as bypass surgery 3 weeks ago at [facility] on the left leg peripheral vascular disease, severe history of coronary artery disease chronic anemia acute kidney injury with acute tubular necrosis chronic obstructive pulmonary disease Hypertension chronic debility history of protein calorie malnutrition Sacral decubitus ulcer, stage III History of nicotine dependence History of GI and DVT prophylaxis Hypoalbuminemia with mild protein calorie malnutrition Increased white count no code, no CPR, no vent Plan: Recommend to continue with current medications and management and symptomatic treatment. Recommend to continue with IV INvanz and will need IV abx on discharge. ECF possibly being planned and will discuss with social work about placement. Patient is weak and recommend PT/OT daily. Encouraged with nursing staff about avoiding narcotics and have discontinued IV Dilaudid as patient is extremely lethargic and minimally arousable. Will add low dose norco and discussed with nursing staff about avoiding narcotics if patient is drowsy. Encouraged opening shades during the day and encouraging increased activity and family visits for frequent reorientation. Avoid ALUMINUM SIDING APPLICATOR and narotic agents if possible and limit use. Due to multiple complex medical issues prognosis is guarded. Will Continue to monitor closely and repeat labs. Objective - Vital Signs Vital signs: Vital Signs Temp 98.0 F 02/03/21 04:00 Pulse 100 02/03/21 04:00 Resp 20 02/03/21 04:00 BP 128/78 02/03/21 04:00 Pulse Ox 95 02/03/21 04:00 Intake & Output 02/02/21 02/03/21 02/03/21 18:59 06:59 18:59 Intake Total 1406 1419 Output Total 950 1500 Balance 456 -81 Weight 58.3 kg Intake: Intake, IV Titration 1048 1299 Amount Lactated Ringers 1,000 ml 240 @ 20 mls/hr IV .Q24H [facility] Rx#:[id number] Mvi, Adult No.4 with Vit 1059 K 10 ml Trace (Conc-1Ml/ Dose) 1 ml Sodium Phosphate 15 mmol Sodium Chloride 4Meq/ml Vial 60 meq Sodium Acetate 14 meq Potassium Chloride 20 meq Magnesium Sulfate gm 0.5 gm Calcium Gluconate 1 gm In Amino Acids 5 %/ Dextrose 20 % 1,000 ml @ 80 mls/hr IV .BY DURATION [facility] Rx#:[id number] Sodium Phosphate 15 mmol 1048 Sodium Chloride 4Meq/ml Vial 60 meq Sodium Acetate 14 meq Potassium Chloride 20 meq Magnesium Sulfate gm 0.5 gm Calcium Gluconate 1 gm In Amino Acids 5 %/Dextrose 20 % 1,000 ml @ 80 mls/ hr IV .BY DURATION [facility] Rx #:[id number] Oral 358 120 Output: Urine 950 1100 Stool 400 Other: Voiding Method Indwelling Catheter Indwelling Catheter - Labs CBC & Chem 7: 02/03/21 08:23 02/03/21 08:23 Labs: Abnormal Lab Results - Last 24 Hours (Table) 02/02/21 02/02/21 02/03/21 Range/Units 12:05 23:52 05:58 POC Glucose (mg/dL) 196 H 152 H 144 H (75-99) mg/dL Microbiology - Last 24 Hours (Table) 01/29/21 07:50 Blood Culture - Preliminary Blood No Growth after 96 hours
[2021-02-03 23:57] LABS: Glucose,Whole Blood 167 mg/dL (75-99)
[2021-02-04] MEDS: 1: MVI, ADULT NO.4 WITH VIT K 10 ML, TRACE (CONC-1ML/DOSE) 1 ML, SODIUM PHOSPHATE 15 MMO IV SCH ×9 (01:40)
[2021-02-04] MEDS: GABAPENTIN 300 MG CAP PO SCH ×4 (03:06→23:52)
[2021-02-04] MEDS: INSULIN ASPART (NovoLOG) 100 UNIT/ML VIAL SQ SCH ×5 (03:11→23:55)
[2021-02-04 05:50] LABS: Glucose,Whole Blood 178 mg/dL (75-99)
[2021-02-04 06:42] LABS: Anisocytosis Slight; Basophils % (A) 0 %; Eosinophils % (A) 0 %; HCT 34.1 % (39.0-53.0); HGB 10.8 gm/dL (13.0-17.5); Hypochromasia Slight; Lymphocytes # (A) 0.2 k/uL (1.0-4.8); Lymphocytes % (A) 1 %; MCHC 31.8 g/dL (31.0-37.0); MCV 97.5 fL (80.0-100.0); Macrocytosis Slight; Mean Platelet Volume 8.5; Monocytes # (A) 0.6 k/uL (0-1.0); Monocytes % (A) 3 %; Neutrophils # (A) 21.8 k/uL (1.3-7.7); Neutrophils % (A) 96 %; Platelet Count 369 k/uL (150-450); RBC 3.49 m/uL (4.30-5.90); RDW 17.1 % (11.5-15.5); WBC 22.6 k/uL (3.8-10.6)
[2021-02-04 07:20] LABS: Albumin 2.6 g/dL (3.5-5.0); Calcium 8.9 mg/dL (8.4-10.2); Magnesium 1.9 mg/dL (1.6-2.3); Phosphorus 4.3 mg/dL (2.5-4.5); Potassium 4.4 mmol/L (3.5-5.1); Total Bilirubin 0.5 mg/dL (0.2-1.3)
[2021-02-04] MEDS: IPRATROPIUM-ALBUTEROL 3 ML NEB INHALATION SCH ×4 (07:47→19:00)
[2021-02-04] MEDS: SYMBICORT 80-4.5 MCG INHALER INHALATION SCH ×2 (07:47→19:00)
[2021-02-04] MEDS: PANTOPRAZOLE 40 MG/10 ML VIAL IVP SCH ×2 (09:16→21:24)
[2021-02-04] MEDS: METOPROLOL TARTRATE 50 MG TAB PO SCH ×2 (09:16→21:24)
[2021-02-04] MEDS: amLODIPine 10 MG TAB PO SCH (09:16)
[2021-02-04] MEDS: AMIODARONE 200 MG TAB PO SCH ×2 (09:16→21:24)
[2021-02-04] MEDS: methylPREDNISolone SOD SUCCI 40 MG/ML 1 ML VIAL IV SCH ×2 (09:16→21:24)
[2021-02-04] MEDS: cloNIDine HCL 0.1 MG TAB PO SCH ×3 (09:16→21:24)
[2021-02-04] MEDS: ASPIRIN 81 MG PO SCH (09:17)
[2021-02-04] MEDS: FUROSEMIDE 20 MG TAB PO SCH (09:17)
[2021-02-04] MEDS: DOCUSATE 100 MG CAP PO SCH (09:17)
[2021-02-04] MEDS: FAT EMULSION 20% 500 ML in EMPTY BAG 1 BAG IV SCH (09:17)
--- NOTE | 2021-02-04 10:35 | P.PN ---
Subjective Progress Note Date: 02/04/21 HISTORY OF PRESENT ILLNESS: This is a 65-year-old male with a past medical history significant for paroxysmal atrial fibrillation not on anticoagulation secondary to GI bleed, coronary artery disease with previous stenting to the RCA in 2018, nicotine dependence, and recent vascular surgery to left lower extremity. 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 We have been asked to see the patient in consultation for afib and CHF. Patient examined at the bedside. Patient [facility] iglesias from [facility] due to chest pain. He states he recently underwent surgery to his left lower extremity at [facility] a few weeks ago. At the time of examination, the patient denies chest pain or pressure. He is in afib with uncontrolled ventricular rates. He is currently on a Cardizem drip and a heparin drip. BNP elevated over 12,000. He was started on IV lasix. He currently denies SOB. Chest XR revealed moderate bilateral pleural effusions. echocardiogram completed revealing ejection fraction 40-45%. Mild mitral regurgitation. Mild tricuspid regurgitation. 01/15/2021 Patient examined this morning at the bedside. Patient denies chest pain or pressure. He has converted to sinus mechanism with a heart rate in the 80s. 01/16/2021 Patient went into afib with RVR overnight. He was started on a Cardizem drip which was infusing at 10mg/hour this morning. Patient hypotensive with SBP 70- 90s. White count 51.1 today, up from 16.1 yesterday. Patient was complaining of abdominal pain. Lactic acid 4.5. An NG tube was inserted this morning with 600 mL of coffee-ground emesis per nursing. 02/04/2021 Patient examined this morning at the bedside. Patient is s/p left AKA. Patient also developed a bowel obstruction during hospitalization. Patient currently denies chest pain or pressure. Denies shortness of breath. He is on 2L NC. Blood pressure 117/65. Telemetry reveals sinus mechanism. Echo completed revealing EF 40-45%. Patient states he does not follow regularly with a sales clerk food. PHYSICAL EXAM: VITAL SIGNS: Reviewed. GENERAL: Well-developed in no acute distress. HEENT: Head is normocephalic. Pupils are equal, round. Sclerae anicteric. Mucous membranes of the mouth are moist. Neck supple. No JVD or thyromegaly LUNGS: Respirations even and unlabored. Lungs essentially clear to auscultation bilaterally. HEART: Regular rate and rhythm. S1 and S2 heard. EXTREMITIES: Left AKA. ASSESSMENT: Chest pain, troponin negative x 3 Acute diastolic congestive heart failure, resolved Paroxysmal atrial fibrillation not on anticoagulation secondary to GI bleed Coronary artery disease with previous stenting to the RCA in 2018 Recent surgery to left lower extremity, at outside facility S/P AKA Nicotine dependence Hypotension Small bowel obstruction, resolved Leukocytosis Lactic acidosis PLAN: No correction anticoagulation as patient has a hx of GIB. Continue current cardiac medications Discharge to ECF on IV antibiotics per medicine We will follow on an as-needed basis. Please call with questions or concerns. Nurse practitioner note has been reviewed by physician. Signing provider agrees with the documented findings, assessment, and plan of care. Objective - Vital Signs Vital signs: Vital Signs Temp 97.8 F 02/04/21 09:16 Pulse 63 02/04/21 09:16 Resp 18 02/04/21 09:16 BP 130/73 02/04/21 09:16 Pulse Ox 97 02/04/21 09:16 Intake & Output 02/03/21 02/04/21 02/04/21 18:59 06:59 18:59 Intake Total 1284 1288 Output Total 750 1200 150 Balance 534 88 -150 Weight 50 kg Intake: Intake, IV Titration 1048 1048 Amount Sodium Phosphate 15 mmol 1048 1048 Sodium Chloride 4Meq/ml Vial 60 meq Sodium Acetate 14 meq Potassium Chloride 20 meq Magnesium Sulfate gm 0.5 gm Calcium Gluconate 1 gm In Amino Acids 5 %/Dextrose 20 % 1,000 ml @ 80 mls/ hr IV .BY DURATION [facility] Rx #:[id number] Oral 236 240 Output: Urine 750 1000 150 Stool 200 Other: Voiding Method Indwelling Catheter Indwelling Catheter Indwelling Catheter # Bowel Movements 1 - Labs CBC & Chem 7: 02/04/21 05:35 02/04/21 05:35 Labs: Abnormal Lab Results - Last 24 Hours (Table) 02/03/21 02/03/21 02/03/21 Range/Units 12:45 18:10 23:55 WBC (3.8-10.6) k/uL RBC (4.30-5.90) m/uL Hgb (13.0-17.5) gm/dL Hct (39.0-53.0) % RDW (11.5-15.5) % Neutrophils # (1.3-7.7) k/uL Lymphocytes # (1.0-4.8) k/uL Chloride (98-107) mmol/L BUN (9-20) mg/dL Glucose (74-99) mg/dL POC Glucose (mg/dL) 170 H 179 H 167 H (75-99) mg/dL Total Protein (6.3-8.2) g/dL Albumin (3.5-5.0) g/dL 02/04/21 02/04/21 02/04/21 Range/Units 05:35 05:35 05:49 WBC 22.6 H (3.8-10.6) k/uL RBC 3.49 L (4.30-5.90) m/uL Hgb 10.8 L (13.0-17.5) gm/dL Hct 34.1 L (39.0-53.0) % RDW 17.1 H (11.5-15.5) % Neutrophils # 21.8 H (1.3-7.7) k/uL Lymphocytes # 0.2 L (1.0-4.8) k/uL Chloride 111 H (98-107) mmol/L BUN 60 H (9-20) mg/dL Glucose 161 H (74-99) mg/dL POC Glucose (mg/dL) 178 H (75-99) mg/dL Total Protein 6.0 L (6.3-8.2) g/dL Albumin 2.6 L (3.5-5.0) g/dL Microbiology - Last 24 Hours (Table) 01/29/21 07:50 Blood Culture - Final Blood No Growth after 144 hours
--- NOTE | 2021-02-04 10:49 | P.PN ---
Subjective Progress Note Date: 02/04/21 CHIEF COMPLAINT: Fever HISTORY OF PRESENT ILLNESS: Surgical service is following his small bowel obstruction. Patient's ostomy is functioning. No complaints of abdominal pain. He denies any nausea or vomiting. He is tolerating diet. He is status post left above-knee amputation. Afebrile. WBC 22.6 Hgb 10.8 Patient seen and examined with Dr. Medina PHYSICAL EXAM: VITAL SIGNS: Reviewed. GENERAL: Well-developed in no acute distress. HEENT: No sclera icterus. Extraocular movements grossly intact. Moist buccal mucosa. Head is atraumatic, normocephalic. ABDOMEN: Soft. Nondistended Nontender. ileostomy with stool NEUROLOGIC: Alert and oriented. Cranial nerves II through XII grossly intact. ASSESSMENT: 1. Small bowel obstruction improved 2. Recurrent small bowel obstruction and underlying SMA syndrome 3. Ischemic left leg and gangrene status post left above-knee amputation with Jovanny Cevallos. PLAN: -Continue supportive care -Continue ground diet -Continue TPN for nutrition support until oral intake shows improvement Physician Project Management Analyst note has been reviewed by physician. Signing provider agrees with the documented findings, assessment, and plan of care. Objective - Vital Signs Vital signs: Vital Signs Temp 97.8 F 02/04/21 09:16 Pulse 63 02/04/21 09:16 Resp 18 02/04/21 09:16 BP 130/73 02/04/21 09:16 Pulse Ox 97 02/04/21 09:16 Intake & Output 02/03/21 02/04/21 02/04/21 18:59 06:59 18:59 Intake Total 1284 1288 Output Total 750 1200 150 Balance 534 88 -150 Weight 50 kg Intake: Intake, IV Titration 1048 1048 Amount Sodium Phosphate 15 mmol 1048 1048 Sodium Chloride 4Meq/ml Vial 60 meq Sodium Acetate 14 meq Potassium Chloride 20 meq Magnesium Sulfate gm 0.5 gm Calcium Gluconate 1 gm In Amino Acids 5 %/Dextrose 20 % 1,000 ml @ 80 mls/ hr IV .BY DURATION [facility] Rx #:[id number] Oral 236 240 Output: Urine 750 1000 150 Stool 200 Other: Voiding Method Indwelling Catheter Indwelling Catheter Indwelling Catheter # Bowel Movements 1 - Labs CBC & Chem 7: 02/04/21 05:35 02/04/21 05:35 Labs: Abnormal Lab Results - Last 24 Hours (Table) 02/03/21 02/03/21 02/03/21 Range/Units 12:45 18:10 23:55 WBC (3.8-10.6) k/uL RBC (4.30-5.90) m/uL Hgb (13.0-17.5) gm/dL Hct (39.0-53.0) % RDW (11.5-15.5) % Neutrophils # (1.3-7.7) k/uL Lymphocytes # (1.0-4.8) k/uL Chloride (98-107) mmol/L BUN (9-20) mg/dL Glucose (74-99) mg/dL POC Glucose (mg/dL) 170 H 179 H 167 H (75-99) mg/dL Total Protein (6.3-8.2) g/dL Albumin (3.5-5.0) g/dL 02/04/21 02/04/21 02/04/21 Range/Units 05:35 05:35 05:49 WBC 22.6 H (3.8-10.6) k/uL RBC 3.49 L (4.30-5.90) m/uL Hgb 10.8 L (13.0-17.5) gm/dL Hct 34.1 L (39.0-53.0) % RDW 17.1 H (11.5-15.5) % Neutrophils # 21.8 H (1.3-7.7) k/uL Lymphocytes # 0.2 L (1.0-4.8) k/uL Chloride 111 H (98-107) mmol/L BUN 60 H (9-20) mg/dL Glucose 161 H (74-99) mg/dL POC Glucose (mg/dL) 178 H (75-99) mg/dL Total Protein 6.0 L (6.3-8.2) g/dL Albumin 2.6 L (3.5-5.0) g/dL Microbiology - Last 24 Hours (Table) 01/29/21 07:50 Blood Culture - Final Blood No Growth after 144 hours
[2021-02-04 11:54] LABS: Glucose,Whole Blood 263 mg/dL (75-99)
--- NOTE | 2021-02-04 13:20 | P.PN ---
Subjective Progress Note Date: 02/04/21 Patient seen and examined lying in bed. He is status post left nhnlm-mgy-hbmp amputation. He has been afebrile. Dressing is clean dry and intact. Patient states pain is well managed. Objective - Vital Signs Vital signs: Vital Signs Temp 97.8 F 02/04/21 09:16 Pulse 63 02/04/21 09:16 Resp 18 02/04/21 09:16 BP 130/73 02/04/21 09:16 Pulse Ox 97 02/04/21 09:16 Intake & Output 02/03/21 02/04/21 02/04/21 18:59 06:59 18:59 Intake Total 1284 1288 Output Total 750 1200 150 Balance 534 88 -150 Weight 50 kg Intake: Intake, IV Titration 1048 1048 Amount Sodium Phosphate 15 mmol 1048 1048 Sodium Chloride 4Meq/ml Vial 60 meq Sodium Acetate 14 meq Potassium Chloride 20 meq Magnesium Sulfate gm 0.5 gm Calcium Gluconate 1 gm In Amino Acids 5 %/Dextrose 20 % 1,000 ml @ 80 mls/ hr IV .BY DURATION [facility] Rx #:[id number] Oral 236 240 Output: Urine 750 1000 150 Stool 200 Other: Voiding Method Indwelling Catheter Indwelling Catheter Indwelling Catheter # Bowel Movements 1 - Exam General appearance: The patient is alert, oriented, in no acute distress. HET: Head is normocephalic and atraumatic. Pupils are equal and reactive. Orop harynx is clear without lesions. Extremities: Left edryo-ogn-rmpy amputation stump with sutures well approximated with mild ecchymosis. Skin is pink and warm to touch. Neurological: No focal deficits. Alert and oriented 3. - Labs CBC & Chem 7: 02/04/21 05:35 02/04/21 05:35 Labs: Abnormal Lab Results - Last 24 Hours (Table) 02/03/21 02/03/21 02/03/21 Range/Units 12:45 18:10 23:55 WBC (3.8-10.6) k/uL RBC (4.30-5.90) m/uL Hgb (13.0-17.5) gm/dL Hct (39.0-53.0) % RDW (11.5-15.5) % Neutrophils # (1.3-7.7) k/uL Lymphocytes # (1.0-4.8) k/uL Chloride (98-107) mmol/L BUN (9-20) mg/dL Glucose (74-99) mg/dL POC Glucose (mg/dL) 170 H 179 H 167 H (75-99) mg/dL Total Protein (6.3-8.2) g/dL Albumin (3.5-5.0) g/dL 02/04/21 02/04/21 02/04/21 Range/Units 05:35 05:35 05:49 WBC 22.6 H (3.8-10.6) k/uL RBC 3.49 L (4.30-5.90) m/uL Hgb 10.8 L (13.0-17.5) gm/dL Hct 34.1 L (39.0-53.0) % RDW 17.1 H (11.5-15.5) % Neutrophils # 21.8 H (1.3-7.7) k/uL Lymphocytes # 0.2 L (1.0-4.8) k/uL Chloride 111 H (98-107) mmol/L BUN 60 H (9-20) mg/dL Glucose 161 H (74-99) mg/dL POC Glucose (mg/dL) 178 H (75-99) mg/dL Total Protein 6.0 L (6.3-8.2) g/dL Albumin 2.6 L (3.5-5.0) g/dL 02/04/21 Range/Units 11:51 WBC (3.8-10.6) k/uL RBC (4.30-5.90) m/uL Hgb (13.0-17.5) gm/dL Hct (39.0-53.0) % RDW (11.5-15.5) % Neutrophils # (1.3-7.7) k/uL Lymphocytes # (1.0-4.8) k/uL Chloride (98-107) mmol/L BUN (9-20) mg/dL Glucose (74-99) mg/dL POC Glucose (mg/dL) 263 H (75-99) mg/dL Total Protein (6.3-8.2) g/dL Albumin (3.5-5.0) g/dL Microbiology - Last 24 Hours (Table) 01/29/21 07:50 Blood Culture - Final Blood No Growth after 144 hours Assessment and Plan Assessment: 1. Critical limb ischemia left lower extremity postop day 1 AKA 2. Severe sepsis status post shock History 3. ESBL Klebsiella pneumonia 4. Atrial fibrillation 5. Anemia 6. History of left lower extremity bypass and TMA at [facility] 7. Acute kidney injury 8. COPD Plan: 1. Physical therapy to work with patient status post amputation 2. Daily dressing change with Adaptic and Kerlix 3. Comfort prosthetics to see patient regarding protective dressing. The impression and plan of care has been dictated as directed. Dr. Cevallos I performed a history and examination of this patient, discussed the same with the dictator. I agree with the dictator's note ,documented as a scribe. Any additional findings or plans will be noted.
[2021-02-04 13:26] VITALS: BMI 13.7
--- NOTE | 2021-02-04 13:29 | P.CONS ---
History of Present Illness - Reason for Consult Consult date: 02/04/21 wound care - History of Present Illness This is 65-year-old patient being seen by the wound care center on 3 S. for a stage III pressure ulcer. Patient at this time sitting in chair and is declining to move back to the bed for visualization of the ulceration. Ulceration was reviewed with photographs and nursing documentation. Ulceration measures approximate 3 x 4 x 1 cm with muscle exposure without necrosis. Significant amount of slough and moderate granulation seen. No tunneling or undermining noted. Wound edges are attached to the wound base. Patient is a poor historian. Unable to answer questions appropriately. Review Of Systems: Constitutional: No fever, no chills, no night sweats. No weight change. No weakness, fatigue or lethargy. No daytime sleepiness. Integumentary:reports wounds, no lesions. No rash or pruritus. No unusual bruising. No change in hair or nails. Physical exam: General Appearance: Alert, cooperative, no distress, appears stated age. Skin: See HPI all other Skin color, texture, tugor normal, no rashes or lesions. Neurologic: Alert oriented x3 Assessment 1. Stage III pressure ulcer sacrum Plan: 1. Apply absorptive silver, saline moist gauze, and border foam. Thank for the consultation any questions please contact the wound care center DNP note has been reviewed and discussed with Dr. De La Rosa and the impression and plan of care has been directed as dictated. Past Medical History Past Medical History: Atrial Fibrillation, Coronary Artery Disease (CAD), COPD, Hypertension Additional Past Medical History / Comment(s): Coronary artery disease, peripheral vascular disease, depression, paroxysmal atrial fibrillation, COPD, generalized chronic pain, history of multiple skeletal fractures including cervical fracture, history of complicated diverticulitis with bowel resection and colostomy and Karen pouch, history of bladder injury during surgery that required surgical repair, history of Raynaud's disease, Last Myocardial Infarction Date:: uknown History of Any Multi-Drug Resistant Organisms: ESBL, MRSA Year Discovered:: 04/06/17 MRSA 01/22/21 ESBL MDRO Source:: Abdomen ESBL SPUTUM Past Surgical History: Bowel Resection, Heart Catheterization With Stent Additional Past Surgical History / Comment(s): 11/2017 PCI with stent at [facility], colonoscopies, bowel resection with ileostomy, cystoscopy for bladder repair, abdominal abscess with surgical intervention, R inguinal hernia repair with mesh, R knee arthroscopy, toe amputation, colostomy Past Anesthesia/Blood Transfusion Reactions: No Reported Reaction Date of Last Stent Placement:: 12/06/17 Past Psychological History: Depression Smoking Status: Former smoker Past Alcohol Use History: Daily Past Drug Use History: Prescription Drug Abuse - Past Family History Father Family Medical History: Myocardial Infarction (AR) Additional Family Medical History / Comment(s): Father had 3 MIs, he had his first one at the age of 50 yrs. He at the age of 85 yrs. Mother Family Medical History: No Reported History Additional Family Medical History / Comment(s): Mother was healthy and lived to be 94 or 95 yrs old. Medications and Allergies Home Medications Medication Instructions Recorded Confirmed Type Acetaminophen [Tylenol] 650 mg PO Q4H PRN 01/13/21 01/13/21 History Artificial Tears-Hypromellose 1 drop RIGHT EYE Q6H PRN 01/13/21 01/13/21 History [Artificial Tear Drops] Aspirin EC [Ecotrin Low Dose] 81 mg PO DAILY 01/13/21 01/13/21 History Clopidogrel [Plavix] 75 mg PO DAILY 01/13/21 01/13/21 History Diltiazem HCl [Cardizem LA] 180 mg PO DAILY 01/13/21 01/13/21 History Docusate [Colace] 100 mg PO DAILY 01/13/21 01/13/21 History Fluticasone/Vilanterol [Breo 1 puff INHALATION RT-DAILY 01/13/21 01/13/21 History Ellipta 100-25 Mcg Inhaler] Gabapentin 300 mg PO Q8H 01/13/21 01/13/21 History Heparin Sodium,Porcine [Heparin 5,000 unit SQ Q8HR 01/13/21 01/13/21 History Sodium] Lidocaine 4% Patch 1 patch TRANSDERM DAILY 01/13/21 01/13/21 History Metoprolol Tartrate [Lopressor] 100 mg PO Q8H 01/13/21 01/13/21 History Morphine Sulfate Ir [MSIR] 30 mg PO Q6HR 01/13/21 01/13/21 History Multivitamins, Thera [Multivitamin 1 tab PO DAILY 01/13/21 01/13/21 History (formulary)] Omeprazole 20 mg PO DAILY 01/13/21 01/13/21 History Tamsulosin HCl [Flomax] 0.4 mg PO DAILY 01/13/21 01/13/21 History Allergies Allergy/AdvReac Type Severity Reaction Status Date / Time No Known Allergies Allergy Verified 01/13/21 08:52 Physical Exam Vitals: Vital Signs Temp Pulse Resp BP Pulse Ox 02/04/21 09:16 97.8 F 63 18 130/73 97 02/04/21 04:00 97.6 F 64 16 117/65 96 02/04/21 02:00 65 18 02/04/21 00:00 97.9 F 79 18 135/72 95 02/03/21 20:00 98.3 F 65 18 133/68 99 02/03/21 16:54 98.0 F 87 18 134/78 94 L 02/03/21 14:20 16 Intake and Output 02/03/21 02/04/21 02/04/21 22:59 06:59 14:59 Intake Total 1288 Output Total 1000 200 150 Balance -1000 1088 -150 Intake: Intake, IV Titration 1048 Amount Sodium Phosphate 15 mmol 1048 Sodium Chloride 4Meq/ml Vial 60 meq Sodium Acetate 14 meq Potassium Chloride 20 meq Magnesium Sulfate gm 0.5 gm Calcium Gluconate 1 gm In Amino Acids 5 %/Dextrose 20 % 1,000 ml @ 80 mls/ hr IV .BY DURATION [facility] Rx #:[id number] Oral 240 Output: Urine 1000 150 Stool 200 Other: Voiding Method Indwelling Catheter Indwelling Catheter Indwelling Catheter # Bowel Movements 1 Weight 50 kg Results CBC & Chem 7: 02/04/21 05:35 02/04/21 05:35 Labs: Abnormal Lab Results - Last 24 Hours (Table) 02/03/21 02/03/21 02/04/21 Range/Units 18:10 23:55 05:35 WBC (3.8-10.6) k/uL RBC (4.30-5.90) m/uL Hgb (13.0-17.5) gm/dL Hct (39.0-53.0) % RDW (11.5-15.5) % Neutrophils # (1.3-7.7) k/uL Lymphocytes # (1.0-4.8) k/uL Chloride 111 H (98-107) mmol/L BUN 60 H (9-20) mg/dL Glucose 161 H (74-99) mg/dL POC Glucose (mg/dL) 179 H 167 H (75-99) mg/dL Total Protein 6.0 L (6.3-8.2) g/dL Albumin 2.6 L (3.5-5.0) g/dL 02/04/21 02/04/21 02/04/21 Range/Units 05:35 05:49 11:51 WBC 22.6 H (3.8-10.6) k/uL RBC 3.49 L (4.30-5.90) m/uL Hgb 10.8 L (13.0-17.5) gm/dL Hct 34.1 L (39.0-53.0) % RDW 17.1 H (11.5-15.5) % Neutrophils # 21.8 H (1.3-7.7) k/uL Lymphocytes # 0.2 L (1.0-4.8) k/uL Chloride (98-107) mmol/L BUN (9-20) mg/dL Glucose (74-99) mg/dL POC Glucose (mg/dL) 178 H 263 H (75-99) mg/dL Total Protein (6.3-8.2) g/dL Albumin (3.5-5.0) g/dL Microbiology - Last 24 Hours (Table) 01/29/21 07:50 Blood Culture - Final Blood No Growth after 144 hours Assessment and Plan (1) Stage III pressure ulcer of buttock Current Visit: Yes Status: Acute Code(s): L89.303 - PRESSURE ULCER OF UNSPECIFIED BUTTOCK, STAGE 3 SNOMED Code(s): 38130707111209610
[2021-02-04] MEDS ORDERED: [UNRECOGNIZED DRUG - REMARK] IV SCH ×9 (15:00)
[2021-02-04] MEDS: ERTAPENEM 1 GM in SODIUM CHLORIDE 0.9% 50 ML IVPB SCH (18:20)
[2021-02-04] MEDS: LACTATED RINGERS 1,000 ML IV SCH (19:30)
[2021-02-04] MEDS: QUEtiapine 25 MG TAB PO SCH (21:24)
[2021-02-04] MEDS ORDERED: ANIDULAFUNGIN 200 MG in SODIUM CHLORIDE 0.9% 200 ML IVPB ONE (21:30)
--- NOTE | 2021-02-04 22:18 | PN ---
PROGRESS NOTE DATE OF SERVICE: 02/04/2021 REASON FOR FOLLOWUP: Aspiration pneumonia. INTERVAL HISTORY: The patient is afebrile. The patient is breathing comfortably. No chest pain shortness of breath. No worsening cough. No abdominal pain or diarrhea. PHYSICAL EXAMINATION: Blood pressure is 110/67, pulse of 63, temperature of 98. He is 97% on 2 L nasal cannula. General description is an elderly male lying in bed in no distress. Respiratory system: Unlabored breathing, decreased intensity of breath sounds. No wheeze. Heart S1, S2. Regular rate and rhythm. Abdomen soft, no tenderness. LABS: Hemoglobin is 10.8, white count 2.6, BUN of 6, creatinine 1.05. DIAGNOSTIC IMPRESSION AND PLAN: 1. Patient with ESBL Klebsiella pneumonia, for which the patient is currently covered with the ertapenem. Plan is for a total of 2-week course of therapy. 2. Patient with elevated white count; could be related to the steroids plus/minus oropharyngeal candidiasis, as the patient has been on antibiotics. Unfortunately cannot use the Diflucan, as the patient is on amiodarone. Will try Eraxis and see response. Monitor his clinical course closely. MMODL / IJN: [id number] /
[2021-02-04 23:17] LABS: Glucose,Whole Blood 104 mg/dL (75-99)
[2021-02-04] MEDS: ACETAMINOPHEN TAB 325 MG TAB PO PRN (23:54)
--- NOTE | 2021-02-05 02:17 | P.PN ---
Subjective Progress Note Date: 02/04/21 This is a 65-year-old male who was recently admitted with acute severe left leg infection and underwent left above the knee amputation. Patient is being closely monitored by multiple medical consultations including ID and cardiology. Patient continues to be confused but much more awake today. Family at the bedside today and possible ecf being planned. Patient continues on IV invanz and will continue. Patient is afebrile. No chest pain reported. 02/02/2021 Patient is seen and evaluated and follow-up this morning extremely lethargic and minimally arousable and continues to be closely monitored. Discussed with nursing staff about avoiding narcotics and will discontinue IV Dilaudid as patient was given a dose this morning and is somnolent. Per nursing staff patient becoming agitated at times when arousable. Will Add low dose Seroquel. Patient is continued on IV antibiotics in the form of Invanz with infectious disease following closely. Patient also continues on IV steroids and breathing inhalational treatments and will continue. No new labs today and will reorder labs. 02/03/2021 Patient is seen this morning and stating that he is having pain in the chest and left lower extremity. Patient continues to be lethargic but somewhat more awake today. Patient continues on IV antibiotics with ID following closely. Patient is also on IV steroids and will transition to oral steroids. WBC is 23.9 and patient is afebrile. Patient denies any worsening of shortness of breath. 02/04/2021 Patient seen and evaluated today and continues with some confusion and stating he has to get out of bed now and walk the halls. Patient is a recent left aka and is weak. Patient was on TPN and will wean off as patient is tolerating oral intake. WBC elevated and will repeat am labs. Patient continues on IV invanz with ID following. Possible oral candidiasis and starting Anidulafungin. Review of systems: Unable to obtain given patient continues to be confused and lethargic Active Medications Acetaminophen (Acetaminophen Tab 325 Mg Tab) 650 mg PO Q4H PRN PRN Reason: Pain or Fever > 100.5 Last Admin: 02/04/21 23:54 Dose: 650 mg Documented by: Hydrocodone Bitart/Acetaminophen (Hydrocodone/Apap 5-325mg 1 Each Tab) 0.5 each PO Q6HR PRN PRN Reason: Pain Albuterol/Ipratropium (Ipratropium-Albuterol 3 Ml Neb) 3 ml INHALATION RT-QID [facility] Last Admin: 02/04/21 19:00 Dose: Not Given Documented by: Amiodarone HCl (Amiodarone 200 Mg Tab) 200 mg PO BID [facility] Last Admin: 02/04/21 21:24 Dose: 200 mg Documented by: Amlodipine Besylate (Amlodipine 10 Mg Tab) 10 mg PO DAILY [facility] Last Admin: 02/04/21 09:16 Dose: 10 mg Documented by: Artificial Tears (Artificial Tears-Hypromellose Drops 15 Ml Btl) 1 drops RIGHT EYE Q6H PRN PRN Reason: DRY EYES Aspirin (Aspirin 81 Mg) 81 mg PO DAILY [facility] Last Admin: 02/04/21 09:17 Dose: 81 mg Documented by: Budesonide/Formoterol Fumarate (Symbicort 80-4.5 Mcg Inhaler) 2 puff INHALATION RT-BID [facility] Last Admin: 02/04/21 19:00 Dose: Not Given Documented by: Clonidine (Clonidine Hcl 0.1 Mg Tab) 0.1 mg PO TID [facility] Last Admin: 02/04/21 21:24 Dose: 0.1 mg Documented by: Docusate Sodium (Docusate 100 Mg Cap) 100 mg PO DAILY [facility] Last Admin: 02/04/21 09:17 Dose: 100 mg Documented by: Furosemide (Furosemide 20 Mg Tab) 20 mg PO DAILY [facility] Last Admin: 02/04/21 09:17 Dose: 20 mg Documented by: Gabapentin (Gabapentin 300 Mg Cap) 300 mg PO Q8HR [facility] Last Admin: 02/04/21 23:52 Dose: 300 mg Documented by: Heparin Sodium (Porcine) (Heparin Sodium 1,000 Un/Ml (10ml Vl)) 0 unit IV PER PROTOCOL PRN; Protocol PRN Reason: Low PTT Last Admin: 01/24/21 07:49 Dose: 1,355 unit Documented by: Lactated Ringer's (Lactated Ringers) 1,000 mls @ 20 mls/hr IV .Q24H [facility] Last Admin: 02/04/21 19:30 Dose: Not Given Documented by: Ertapenem 1 gm/ Sodium (Chloride) 50 mls @ 100 mls/hr IVPB DAILY@1800 MATRI; Protocol Last Admin: 02/04/21 18:20 Dose: 100 mls/hr Documented by: Anidulafungin 100 mg/ Sodium (Chloride) 100 mls @ 84 mls/hr IVPB DAILY [facility] Insulin Aspart (Insulin Aspart (Novolog) 100 Unit/Ml Vial) 0 unit SQ Q6H [facility]; Protocol Last Admin: 02/04/21 23:55 Dose: Not Given Documented by: Lidocaine HCl (Lidocaine 1% (10mg/Ml) For Iv Start) 0.1 ml INTRADERMA PER PROTOCOL PRN PRN Reason: IV Start Methylprednisolone Sodium Succinate (Methylprednisolone Sod Succi 40 Mg/Ml 1 Ml Vial) 40 mg IV Q12HR [facility] Last Admin: 02/04/21 21:24 Dose: 40 mg Documented by: Metoprolol Tartrate (Metoprolol Tartrate 50 Mg Tab) 100 mg PO BID [facility] Last Admin: 02/04/21 21:24 Dose: 100 mg Documented by: Miscellaneous Information (Magnesium Replacement Protocol 1 Each Misc) 1 each MISCELLANE DAILY PRN; Protocol PRN Reason: Per Protocol Miscellaneous Information (Potassium Replacement Protocol 1 Each Misc) 1 each MISCELLANE DAILY PRN; Protocol PRN Reason: Per Protocol Ondansetron HCl (Ondansetron 4 Mg/2 Ml Vial) 4 mg IVP Q6HR PRN PRN Reason: Nausea And Vomiting Last Admin: 01/16/21 01:07 Dose: 4 mg Documented by: Pantoprazole Sodium (Pantoprazole 40 Mg/10 Ml Vial) 40 mg IVP BID [facility] Last Admin: 02/04/21 21:24 Dose: 40 mg Documented by: Quetiapine Fumarate (Quetiapine 25 Mg Tab) 25 mg PO HS [facility] Last Admin: 02/04/21 21:24 Dose: 25 mg Documented by: Sodium Chloride (Sodium Chloride 0.9% Flush 10 Ml Syringe) 10 ml IV Q4HR PRN PRN Reason: PICC Line Sodium Chloride (Sodium Chloride 0.9% Flush 10 Ml Syringe) 10 ml IV WEEKLY [facility] Last Admin: 02/01/21 09:30 Dose: 10 ml Documented by: Sodium Chloride (Sodium Chloride 0.9% Flush 10 Ml Syringe) 20 ml IV Q4HR PRN PRN Reason: PICC Line Physical exam: Gen: This is 65-year-old male who is lethargic but arousable, thin built, confused. HEENT: Head is atraumatic, normocephalic. Pupils equal, round. Sclerae is anicteric. NECK: Supple. No JVD. No lymphadenopathy. No thyromegaly. LUNGS: Breath sounds are diminished at the bases with some scattered rhonchi noted. No intercostal retractions. HEART: S1, S2 are muffled ABDOMEN: Soft. thin. Bowel sounds are present. No masses. No tenderness. EXTREMITIES: No pedal edema. No calf tenderness. status post left aka with dressing intact NEUROLOGICAL: Lethargic, alert and oriented x2, no focal deficits, diffusely weak Assessment: Acute severe left leg infection with necrotic lesions, possible ischemic leg acute severe sepsis and septic shock and severe hypotension, present on admission, status post left [id number] amputation oral candidiasis Atrial fibrillation with a fast ventricular rate, currently rate controlled ESBL Klebsiella pneumonia Change in mental status acute metabolic encephalopathy, multifactorial Acute bilateral aspiration pneumonia with acute hypoxic respiratory failure, was briefly in the ICU status post TPN Vomiting and coffee-ground emesis with possible upper GI bleeding, improved Anemia, acute blood loss anemia possibly, stable Abdominal distention, possible acute small bowel obstruction versus ileus, present on admission, improved hyponatremia Hypokalemia History of recent transmetatarsal amputation as well as bypass surgery 3 weeks ago at [facility] on the left leg peripheral vascular disease, severe history of coronary artery disease chronic anemia acute kidney injury with acute tubular necrosis chronic obstructive pulmonary disease Hypertension chronic debility history of protein calorie malnutrition Sacral decubitus ulcer, stage III History of nicotine dependence GI prophylaxis DVT prophylaxis Hypoalbuminemia with mild protein calorie malnutrition Increased white count no code, no CPR, no vent Plan: Recommend to continue with current medications and management and symptomatic treatment. Recommend to continue with IV INvanz and will need IV abx for a total of 2 weeks. Patient with possible oral thrush and ID following and starting antifungal. ECF being planned and will discuss with social work about placement. Patient will need insurance authorization. Patient is weak and recommend PT/OT daily. Encouraged with nursing staff about avoiding narcotics and have discontinued IV Dilaudid as patient is extremely lethargic and minimally arousable. Discontinue TPN. Due to multiple complex medical issues prognosis is guarded. Will Continue to monitor closely and repeat labs. POssible discharge in 24-48 hours. Objective - Vital Signs Vital signs: Vital Signs Temp 97.6 F 02/04/21 04:00 Pulse 64 02/04/21 04:00 Resp 16 02/04/21 04:00 BP 117/65 02/04/21 04:00 Pulse Ox 96 02/04/21 04:00 Intake & Output 02/03/21 02/04/21 02/04/21 18:59 06:59 18:59 Intake Total 1284 1288 Output Total 750 1200 Balance 534 88 Weight 50 kg Intake: Intake, IV Titration 1048 1048 Amount Sodium Phosphate 15 mmol 1048 1048 Sodium Chloride 4Meq/ml Vial 60 meq Sodium Acetate 14 meq Potassium Chloride 20 meq Magnesium Sulfate gm 0.5 gm Calcium Gluconate 1 gm In Amino Acids 5 %/Dextrose 20 % 1,000 ml @ 80 mls/ hr IV .BY DURATION [facility] Rx #:[id number] Oral 236 240 Output: Urine 750 1000 Stool 200 Other: Voiding Method Indwelling Catheter Indwelling Catheter # Bowel Movements 1 - Labs CBC & Chem 7: 02/04/21 05:35 02/04/21 05:35 Labs: Abnormal Lab Results - Last 24 Hours (Table) 02/03/21 02/03/21 02/03/21 Range/Units 08:23 12:45 18:10 WBC (3.8-10.6) k/uL RBC (4.30-5.90) m/uL Hgb (13.0-17.5) gm/dL Hct (39.0-53.0) % RDW (11.5-15.5) % Neutrophils # (1.3-7.7) k/uL Lymphocytes # (1.0-4.8) k/uL Chloride 110 H (98-107) mmol/L BUN 59 H (9-20) mg/dL Glucose 121 H (74-99) mg/dL POC Glucose (mg/dL) 170 H 179 H (75-99) mg/dL Total Protein 5.8 L (6.3-8.2) g/dL Albumin 2.5 L (3.5-5.0) g/dL 02/03/21 02/04/21 02/04/21 Range/Units 23:55 05:35 05:35 WBC 22.6 H (3.8-10.6) k/uL RBC 3.49 L (4.30-5.90) m/uL Hgb 10.8 L (13.0-17.5) gm/dL Hct 34.1 L (39.0-53.0) % RDW 17.1 H (11.5-15.5) % Neutrophils # 21.8 H (1.3-7.7) k/uL Lymphocytes # 0.2 L (1.0-4.8) k/uL Chloride 111 H (98-107) mmol/L BUN 60 H (9-20) mg/dL Glucose 161 H (74-99) mg/dL POC Glucose (mg/dL) 167 H (75-99) mg/dL Total Protein 6.0 L (6.3-8.2) g/dL Albumin 2.6 L (3.5-5.0) g/dL 02/04/21 Range/Units 05:49 WBC (3.8-10.6) k/uL RBC (4.30-5.90) m/uL Hgb (13.0-17.5) gm/dL Hct (39.0-53.0) % RDW (11.5-15.5) % Neutrophils # (1.3-7.7) k/uL Lymphocytes # (1.0-4.8) k/uL Chloride (98-107) mmol/L BUN (9-20) mg/dL Glucose (74-99) mg/dL POC Glucose (mg/dL) 178 H (75-99) mg/dL Total Protein (6.3-8.2) g/dL Albumin (3.5-5.0) g/dL Microbiology - Last 24 Hours (Table) 01/29/21 07:50 Blood Culture - Preliminary Blood No Growth after 120 hours
[2021-02-05 06:03] LABS: Glucose,Whole Blood 193 mg/dL (75-99)
[2021-02-05] MEDS: INSULIN ASPART (NovoLOG) 100 UNIT/ML VIAL SQ SCH ×4 (06:06→23:27)
[2021-02-05] MEDS: SYMBICORT 80-4.5 MCG INHALER INHALATION SCH ×2 (07:53→19:44)
[2021-02-05] MEDS: IPRATROPIUM-ALBUTEROL 3 ML NEB INHALATION SCH ×4 (07:53→19:44)
[2021-02-05 07:57] LABS: Calcium 8.8 mg/dL (8.4-10.2); Magnesium 1.9 mg/dL (1.6-2.3); Phosphorus 4.9 mg/dL (2.5-4.5); Potassium 4.6 mmol/L (3.5-5.1)
[2021-02-05] MEDS: GABAPENTIN 300 MG CAP PO SCH ×3 (09:25→23:26)
[2021-02-05] MEDS: predniSONE 20 MG TAB PO SCH (09:25)
[2021-02-05] MEDS: cloNIDine HCL 0.1 MG TAB PO SCH ×3 (09:25→21:04)
[2021-02-05] MEDS: amLODIPine 10 MG TAB PO SCH (09:25)
[2021-02-05] MEDS: DOCUSATE 100 MG CAP PO SCH (09:25)
[2021-02-05] MEDS: METOPROLOL TARTRATE 50 MG TAB PO SCH ×2 (09:25→21:04)
[2021-02-05] MEDS: AMIODARONE 200 MG TAB PO SCH ×2 (09:25→21:04)
[2021-02-05] MEDS: FUROSEMIDE 20 MG TAB PO SCH (09:25)
[2021-02-05] MEDS: ASPIRIN 81 MG PO SCH (09:25)
[2021-02-05] MEDS: PANTOPRAZOLE 40 MG/10 ML VIAL IVP SCH ×2 (09:25→21:05)
--- NOTE | 2021-02-05 11:24 | P.PN ---
Subjective Progress Note Date: 02/05/21 CHIEF COMPLAINT: Fever HISTORY OF PRESENT ILLNESS: Surgical service is following his small bowel obstruction. Patient's ostomy is functioning. No complaints of abdominal pain. He denies any nausea or vomiting. He is tolerating diet. He is status post left above-knee amputation. Afebrile. Patient seen and examined with Dr. Medina PHYSICAL EXAM: VITAL SIGNS: Reviewed. GENERAL: Well-developed in no acute distress. HEENT: No sclera icterus. Extraocular movements grossly intact. Moist buccal mucosa. Head is atraumatic, normocephalic. ABDOMEN: Soft. Nondistended Nontender. ileostomy with stool NEUROLOGIC: Alert and oriented. Cranial nerves II through XII grossly intact. ASSESSMENT: 1. Small bowel obstruction improved 2. Recurrent small bowel obstruction and underlying SMA syndrome 3. Ischemic left leg and gangrene status post left above-knee amputation with Dr. Cevallos. PLAN: -Continue supportive care -Continue ground diet Physician Contract Negotiation Manager note has been reviewed by physician. Signing provider agrees with the documented findings, assessment, and plan of care. Objective - Vital Signs Vital signs: Vital Signs Temp 97.8 F 02/05/21 04:00 Pulse 60 02/05/21 04:00 Resp 18 02/05/21 04:00 BP 112/50 02/05/21 04:00 Pulse Ox 100 02/05/21 04:00 Intake & Output 02/04/21 02/05/21 02/05/21 18:59 06:59 18:59 Intake Total 356 240 Output Total 150 1075 Balance 206 -835 Weight 50 kg 57.516 kg Intake: Oral 356 240 Output: Urine 150 1075 Other: Voiding Method Indwelling Catheter Indwelling Catheter # Bowel Movements 1 - Labs CBC & Chem 7: 02/04/21 05:35 02/05/21 06:46 Labs: Abnormal Lab Results - Last 24 Hours (Table) 02/04/21 02/04/21 02/05/21 Range/Units 11:51 23:15 06:02 BUN (9-20) mg/dL POC Glucose (mg/dL) 263 H 104 H 193 H (75-99) mg/dL Phosphorus (2.5-4.5) mg/dL 02/05/21 Range/Units 06:46 BUN 56 H (9-20) mg/dL POC Glucose (mg/dL) (75-99) mg/dL Phosphorus 4.9 H (2.5-4.5) mg/dL Microbiology - Last 24 Hours (Table) 01/29/21 07:50 Blood Culture - Final Blood No Growth after 144 hours
[2021-02-05] MEDS: ANIDULAFUNGIN 100 MG in SODIUM CHLORIDE 0.9% 100 ML IVPB SCH (12:03)
[2021-02-05 12:05] LABS: Glucose,Whole Blood 223 mg/dL (75-99)
[2021-02-05] MEDS ORDERED: NALOXONE 0.4 MG/ML 1 ML VIAL IVP PRN (12:25)
--- NOTE | 2021-02-05 14:10 | P.PN ---
Subjective Progress Note Date: 02/05/21 Should seen and examined lying in bed. He is without any acute changes through the night. Comfort breasted X saw the patient yesterday and he has a stump machine plug shaper and rigid dressing in place. Nursing states plan is for discharge possibly today to rehab facility. Objective - Vital Signs Vital signs: Vital Signs Temp 97.8 F 02/05/21 04:00 Pulse 60 02/05/21 04:00 Resp 18 02/05/21 04:00 BP 112/50 02/05/21 04:00 Pulse Ox 100 02/05/21 04:00 Intake & Output 02/04/21 02/05/21 02/05/21 18:59 06:59 18:59 Intake Total 356 240 Output Total 150 1075 Balance 206 -835 Weight 50 kg 57.516 kg Intake: Oral 356 240 Output: Urine 150 1075 Other: Voiding Method Indwelling Catheter Indwelling Catheter # Bowel Movements 1 - Exam General appearance: The patient is alert, oriented, in no acute distress. HET: Head is normocephalic and atraumatic. Pupils are equal and reactive. Oropharynx is clear without lesions. Extremities: Left [id number] amputation with stump machine plug shaper and rigid dressing. Neurological: No focal deficits. Alert and oriented 3. - Labs CBC & Chem 7: 02/04/21 05:35 02/05/21 06:46 Labs: Abnormal Lab Results - Last 24 Hours (Table) 02/04/21 02/04/21 02/05/21 Range/Units 11:51 23:15 06:02 BUN (9-20) mg/dL POC Glucose (mg/dL) 263 H 104 H 193 H (75-99) mg/dL Phosphorus (2.5-4.5) mg/dL 02/05/21 Range/Units 06:46 BUN 56 H (9-20) mg/dL POC Glucose (mg/dL) (75-99) mg/dL Phosphorus 4.9 H (2.5-4.5) mg/dL Microbiology - Last 24 Hours (Table) 01/29/21 07:50 Blood Culture - Final Blood No Growth after 144 hours Assessment and Plan Assessment: 1. Critical limb ischemia left lower extremity postop day # 6 AKA 2. Severe sepsis status post shock History 3. ESBL Klebsiella pneumonia 4. Atrial fibrillation 5. Anemia 6. History of left lower extremity bypass and TMA at [facility] 7. Acute kidney injury 8. COPD Plan: 1. Physical therapy to work with patient status post amputation 2. Keep prostatic dressing in place 3. Patient is cleared for discharge from vascular surgery. Follow up with Dr. Cevallos in one week. The impression and plan of care has been dictated as directed. Dr. Cevallos I performed a history and examination of this patient, discussed the same with the dictator. I agree with the dictator's note ,documented as a scribe. Any additional findings or plans will be noted.
--- NOTE | 2021-02-05 16:21 | P.PN ---
Subjective Progress Note Date: 02/05/21 This is a 65-year-old male who was recently admitted with acute severe left leg infection and underwent left above the knee amputation. Patient is being closely monitored by multiple medical consultations including ID and cardiology. Patient continues to be confused but much more awake today. Family at the bedside today and possible ecf being planned. Patient continues on IV invanz and will continue. Patient is afebrile. No chest pain reported. 02/02/2021 Patient is seen and evaluated and follow-up this morning extremely lethargic and minimally arousable and continues to be closely monitored. Discussed with nursing staff about avoiding narcotics and will discontinue IV Dilaudid as patient was given a dose this morning and is somnolent. Per nursing staff patient becoming agitated at times when arousable. Will Add low dose Seroquel. Patient is continued on IV antibiotics in the form of Invanz with infectious disease following closely. Patient also continues on IV steroids and breathing inhalational treatments and will continue. No new labs today and will reorder labs. 02/03/2021 Patient is seen this morning and stating that he is having pain in the chest and left lower extremity. Patient continues to be lethargic but somewhat more awake today. Patient continues on IV antibiotics with ID following closely. Patient is also on IV steroids and will transition to oral steroids. WBC is 23.9 and patient is afebrile. Patient denies any worsening of shortness of breath. 02/04/2021 Patient seen and evaluated today and continues with some confusion and stating he has to get out of bed now and walk the halls. Patient is a recent left aka and is weak. Patient was on TPN and will wean off as patient is tolerating oral intake. WBC elevated and will repeat am labs. Patient continues on IV invanz with ID following. Possible oral candidiasis and starting Anidulafungin. 02/05/2021 Patient is seen in follow-up this morning continues to have confusion although is more awake. Patient was evaluated by surgical services and signed off as patient is tolerating diet and ostomy is functioning. Patient was also evaluated by vascular surgery for left AKA and has been cleared to go to ECF. Continue with current wound care and patient receiving supplies for AKA. Patient continues to be weak and will be going to ECF once authorization is obtained. Patient started on Arixtra and will discuss with infectious disease about treatment duration. Review of systems: Unable to obtain given patient continues to be confused Labs: Sodium is 138, potassium is 4.6, BUN is 56, creatinine is 1.09, magnesium is 1.9, calcium is 8.8. Active Medications Acetaminophen (Acetaminophen Tab 325 Mg Tab) 650 mg PO Q4H PRN PRN Reason: Pain or Fever > 100.5 Last Admin: 02/04/21 23:54 Dose: 650 mg Documented by: Hydrocodone Bitart/Acetaminophen (Hydrocodone/Apap 5-325mg 1 Each Tab) 0.5 each PO Q6HR PRN PRN Reason: Pain Albuterol/Ipratropium (Ipratropium-Albuterol 3 Ml Neb) 3 ml INHALATION RT-QID [facility] Last Admin: 02/05/21 16:07 Dose: Not Given Documented by: Amiodarone HCl (Amiodarone 200 Mg Tab) 200 mg PO BID [facility] Last Admin: 02/05/21 09:25 Dose: 200 mg Documented by: Amlodipine Besylate (Amlodipine 10 Mg Tab) 10 mg PO DAILY [facility] Last Admin: 02/05/21 09:25 Dose: 10 mg Documented by: Artificial Tears (Artificial Tears-Hypromellose Drops 15 Ml Btl) 1 drops RIGHT EYE Q6H PRN PRN Reason: DRY EYES Aspirin (Aspirin 81 Mg) 81 mg PO DAILY [facility] Last Admin: 02/05/21 09:25 Dose: 81 mg Documented by: Budesonide/Formoterol Fumarate (Symbicort 80-4.5 Mcg Inhaler) 2 puff INHALATION RT-BID [facility] Last Admin: 02/05/21 07:53 Dose: Not Given Documented by: Clonidine (Clonidine Hcl 0.1 Mg Tab) 0.1 mg PO TID [facility] Last Admin: 02/05/21 09:25 Dose: 0.1 mg Documented by: Docusate Sodium (Docusate 100 Mg Cap) 100 mg PO DAILY [facility] Last Admin: 02/05/21 09:25 Dose: 100 mg Documented by: Furosemide (Furosemide 20 Mg Tab) 20 mg PO DAILY [facility] Last Admin: 02/05/21 09:25 Dose: 20 mg Documented by: Gabapentin (Gabapentin 300 Mg Cap) 300 mg PO Q8HR [facility] Last Admin: 02/05/21 09:25 Dose: 300 mg Documented by: Heparin Sodium (Porcine) (Heparin Sodium 1,000 Un/Ml (10ml Vl)) 0 unit IV PER PROTOCOL PRN; Protocol PRN Reason: Low PTT Last Admin: 01/24/21 07:49 Dose: 1,355 unit Documented by: Lactated Ringer's (Lactated Ringers) 1,000 mls @ 20 mls/hr IV .Q24H [facility] Last Admin: 02/04/21 19:30 Dose: Not Given Documented by: Ertapenem 1 gm/ Sodium (Chloride) 50 mls @ 100 mls/hr IVPB DAILY@1800 [facility]; Protocol Last Admin: 02/04/21 18:20 Dose: 100 mls/hr Documented by: Anidulafungin 100 mg/ Sodium (Chloride) 100 mls @ 84 mls/hr IVPB DAILY [facility] Last Admin: 02/05/21 12:03 Dose: 84 mls/hr Documented by: Insulin Aspart (Insulin Aspart (Novolog) 100 Unit/Ml Vial) 0 unit SQ Q6H [facility]; Protocol Last Admin: 02/05/21 12:05 Dose: 3 unit Documented by: Lidocaine HCl (Lidocaine 1% (10mg/Ml) For Iv Start) 0.1 ml INTRADERMA PER PROTOCOL PRN PRN Reason: IV Start Metoprolol Tartrate (Metoprolol Tartrate 50 Mg Tab) 100 mg PO BID [facility] Last Admin: 02/05/21 09:25 Dose: 100 mg Documented by: Miscellaneous Information (Magnesium Replacement Protocol 1 Each Misc) 1 each MISCELLANE DAILY PRN; Protocol PRN Reason: Per Protocol Miscellaneous Information (Potassium Replacement Protocol 1 Each Misc) 1 each MISCELLANE DAILY PRN; Protocol PRN Reason: Per Protocol Naloxone HCl (Naloxone 0.4 Mg/Ml 1 Ml Vial) 0.2 mg IVP Q2M PRN PRN Reason: Opioid Reversal Ondansetron HCl (Ondansetron 4 Mg/2 Ml Vial) 4 mg IVP Q6HR PRN PRN Reason: Nausea And Vomiting Last Admin: 01/16/21 01:07 Dose: 4 mg Documented by: Pantoprazole Sodium (Pantoprazole 40 Mg/10 Ml Vial) 40 mg IVP BID [facility] Last Admin: 02/05/21 09:25 Dose: 40 mg Documented by: Prednisone (Prednisone 20 Mg Tab) 40 mg PO DAILY [facility] Last Admin: 02/05/21 09:25 Dose: 40 mg Documented by: Quetiapine Fumarate (Quetiapine 25 Mg Tab) 25 mg PO HS [facility] Last Admin: 02/04/21 21:24 Dose: 25 mg Documented by: Sodium Chloride (Sodium Chloride 0.9% Flush 10 Ml Syringe) 10 ml IV Q4HR PRN PRN Reason: PICC Line Sodium Chloride (Sodium Chloride 0.9% Flush 10 Ml Syringe) 10 ml IV WEEKLY [facility] Last Admin: 02/01/21 09:30 Dose: 10 ml Documented by: Sodium Chloride (Sodium Chloride 0.9% Flush 10 Ml Syringe) 20 ml IV Q4HR PRN PRN Reason: PICC Line Physical exam: Gen: This is 65-year-old male who is awake, thin built, confused. HEENT: Head is atraumatic, normocephalic. Pupils equal, round. Sclerae is anicteric. NECK: Supple. No JVD. No lymphadenopathy. No thyromegaly. LUNGS: Breath sounds are diminished at the bases with some scattered rhonchi not ed. No intercostal retractions. HEART: S1, S2 are muffled ABDOMEN: Soft. thin. Bowel sounds are present. No masses. No tenderness. EXTREMITIES: No pedal edema. No calf tenderness. status post left aka with dressing intact NEUROLOGICAL: Awake with continued periods of confusion, alert and oriented x2, no focal deficits, diffusely weak Assessment: Acute severe left leg infection with necrotic lesions, possible ischemic leg acute severe sepsis and septic shock and severe hypotension, present on admission, status post left [id number] amputation oral candidiasis Atrial fibrillation with a fast ventricular rate, currently rate controlled ESBL Klebsiella pneumonia Change in mental status acute metabolic encephalopathy, multifactorial Acute bilateral aspiration pneumonia with acute hypoxic respiratory failure, was briefly in the ICU status post TPN Vomiting and coffee-ground emesis with possible upper GI bleeding, improved Anemia, acute blood loss anemia possibly, stable Abdominal distention, possible acute small bowel obstruction versus ileus, present on admission, improved hyponatremia Hypokalemia History of recent transmetatarsal amputation as well as bypass surgery 3 weeks a go at [facility] on the left leg peripheral vascular disease, severe history of coronary artery disease chronic anemia acute kidney injury with acute tubular necrosis chronic obstructive pulmonary disease Hypertension chronic debility history of protein calorie malnutrition Sacral decubitus ulcer, stage III History of nicotine dependence GI prophylaxis DVT prophylaxis Hypoalbuminemia with mild protein calorie malnutrition Increased white count no code, no CPR, no vent Plan: Recommend to continue with current medications and management and symptomatic treatment. Recommend to continue with IV INvanz and will need IV abx for a total of 2 weeks. Patient with possible oral thrush and ID following and starting Arixtra. ECF being planned and awaiting insurance authorization. Patient is weak and recommend PT/OT daily. Encouraged with nursing staff about avoiding narcotics and have discontinued IV Dilaudid as patient is extremely lethargic and minimally arousable. Due to multiple complex medical issues prognosis is guarded. Will Continue to monitor closely and repeat labs. Possible discharge in 24-48 hours. Objective - Vital Signs Vital signs: Vital Signs Temp 97.8 F 02/05/21 04:00 Pulse 60 02/05/21 04:00 Resp 18 02/05/21 04:00 BP 112/50 02/05/21 04:00 Pulse Ox 100 02/05/21 04:00 Intake & Output 02/04/21 02/05/21 02/05/21 18:59 06:59 18:59 Intake Total 356 240 Output Total 150 1075 Balance 206 -835 Weight 50 kg 57.516 kg Intake: Oral 356 240 Output: Urine 150 1075 Other: Voiding Method Indwelling Catheter Indwelling Catheter # Bowel Movements 1 - Labs CBC & Chem 7: 02/04/21 05:35 02/05/21 06:46 Labs: Abnormal Lab Results - Last 24 Hours (Table) 02/04/21 02/04/21 02/05/21 Range/Units 11:51 23:15 06:02 BUN (9-20) mg/dL POC Glucose (mg/dL) 263 H 104 H 193 H (75-99) mg/dL Phosphorus (2.5-4.5) mg/dL 02/05/21 Range/Units 06:46 BUN 56 H (9-20) mg/dL POC Glucose (mg/dL) (75-99) mg/dL Phosphorus 4.9 H (2.5-4.5) mg/dL Microbiology - Last 24 Hours (Table) 01/29/21 07:50 Blood Culture - Final Blood No Growth after 144 hours
[2021-02-05] MEDS: ACETAMINOPHEN TAB 325 MG TAB PO PRN ×2 (16:31→21:05)
[2021-02-05 17:17] LABS: Glucose,Whole Blood 49 mg/dL (75-99)
[2021-02-05] MEDS: LACTATED RINGERS 1,000 ML IV SCH (17:44)
[2021-02-05] MEDS: ERTAPENEM 1 GM in SODIUM CHLORIDE 0.9% 50 ML IVPB SCH (18:46)
[2021-02-05 19:01] LABS: Glucose,Whole Blood 90 mg/dL (75-99)
[2021-02-05] MEDS: QUEtiapine 25 MG TAB PO SCH (21:04)
--- NOTE | 2021-02-05 22:59 | PN ---
PROGRESS NOTE DATE OF SERVICE: 02/05/2021 REASON FOR FOLLOWUP: 1. ESBL Klebsiella pneumonia. 2. Elevated white count. . INTERVAL HISTORY: Patient is afebrile. The patient is currently breathing comfortably. The patient denies having any chest pain. No worsening cough. No abdominal pain or diarrhea. PHYSICAL EXAMINATION: Blood pressure 120/78 with a pulse of 72, temp is 97.3. He is 91% on 2 L nasal cannula. General description is an elderly male up in the chair in no distress respiratory system unlabored breathing, decreased breath sounds in the bases. No wheeze. Heart S1, S2. Regular rate and rhythm. LABS: No CBC was done today. Creatinine is 1.09. DIAGNOSTIC IMPRESSION AND PLAN: 1. Patient with ESBL Klebsiella pneumonia for which the patient is currently covered with Invanz. Plan for total of 2 week course of therapy. 2. Patient elevated white count possible oropharyngeal candidiasis. X-ray was done yesterday. Will repeat CBC to monitor clinical course monitor. MMODL / IJN: [id number] /
[2021-02-05 23:15] LABS: Glucose,Whole Blood 148 mg/dL (75-99)
[2021-02-06] MEDS: ACETAMINOPHEN TAB 325 MG TAB PO PRN ×2 (04:45→14:23)
[2021-02-06 06:14] LABS: Glucose,Whole Blood 70 mg/dL (75-99)
[2021-02-06] MEDS: INSULIN ASPART (NovoLOG) 100 UNIT/ML VIAL SQ SCH ×2 (06:14→12:18)
[2021-02-06 08:33] LABS: Anisocytosis Slight; Basophils # (A) 0.1 k/uL (0-0.2); Basophils % (A) 0 %; Eosinophils % (A) 0 %; HCT 35.9 % (39.0-53.0); HGB 11.5 gm/dL (13.0-17.5); Hypochromasia Slight; Lymphocytes # (A) 0.4 k/uL (1.0-4.8); Lymphocytes % (A) 2 %; MCH 31.2 pg (25.0-35.0); MCHC 31.9 g/dL (31.0-37.0); MCV 97.7 fL (80.0-100.0); Macrocytosis Slight; Mean Platelet Volume 8.1; Monocytes % (A) 9 %; Neutrophils % (A) 88 %; Platelet Count 370 k/uL (150-450); RBC 3.67 m/uL (4.30-5.90); RDW 17.6 % (11.5-15.5); WBC 22.7 k/uL (3.8-10.6)
[2021-02-06] MEDS: predniSONE 20 MG TAB PO SCH (08:46)
[2021-02-06] MEDS: amLODIPine 10 MG TAB PO SCH (08:46)
[2021-02-06] MEDS: FUROSEMIDE 20 MG TAB PO SCH (08:46)
[2021-02-06] MEDS: AMIODARONE 200 MG TAB PO SCH (08:47)
[2021-02-06] MEDS: PANTOPRAZOLE 40 MG/10 ML VIAL IVP SCH (08:47)
[2021-02-06] MEDS: ASPIRIN 81 MG PO SCH (08:47)
[2021-02-06] MEDS: cloNIDine HCL 0.1 MG TAB PO SCH ×2 (08:47→17:23)
[2021-02-06] MEDS: GABAPENTIN 300 MG CAP PO SCH ×2 (08:47→17:22)
[2021-02-06] MEDS: METOPROLOL TARTRATE 50 MG TAB PO SCH (08:47)
[2021-02-06 08:48] LABS: Potassium 3.9 mmol/L (3.5-5.1)
[2021-02-06 09:00] LABS: C Reactive Protein 0.7 mg/dL (<1.0)
[2021-02-06] MEDS: IPRATROPIUM-ALBUTEROL 3 ML NEB INHALATION SCH ×2 (09:02→16:18)
[2021-02-06] MEDS: SYMBICORT 80-4.5 MCG INHALER INHALATION SCH (09:02)
[2021-02-06] MEDS: DOCUSATE 100 MG CAP PO SCH (10:28)
[2021-02-06] MEDS: ANIDULAFUNGIN 100 MG in SODIUM CHLORIDE 0.9% 100 ML IVPB SCH (10:28)
[2021-02-06 12:02] LABS: Glucose,Whole Blood 103 mg/dL (75-99)
--- NOTE | 2021-02-06 13:48 | P.DS ---
Providers Date of admission: 01/13/21 08:52 Expected date of discharge: 02/06/21 Attending physician: Iris Call Consults: 01/13/21 14:35 Consult Physician Routine Consulting Provider: Damon Covington Consult Reason/Comments: Recent bypass surgery Do you want consulting provider notified?: Yes 01/13/21 14:38 Consult Physician Routine Consulting Provider: Gwen Duenas Consult Reason/Comments: left foot wound Do you want consulting provider notified?: Yes 01/16/21 09:30 Consult Physician Stat Consulting Provider: Igor York Consult Reason/Comments: Possible ICU transfer Do you want consulting provider notified?: Yes 01/27/21 11:16 Consult to Anesthesia Routine Consulting Provider: Anesthesia,Services Consult Reason/Comments: preop eval, will need spinal/regional anesthesia Primary care physician: Sarbjit Amor [place] [facility] Course: Final diagnosis Acute severe left leg infection with necrotic lesions, possible ischemic leg acute severe sepsis and septic shock and severe hypotension, present on admission, status post left [id number] amputation oral candidiasis Atrial fibrillation with a fast ventricular rate, currently rate controlled ESBL Klebsiella pneumonia Change in mental status acute metabolic encephalopathy, multifactorial Acute bilateral aspiration pneumonia with acute hypoxic respiratory failure, was briefly in the ICU status post TPN Vomiting and coffee-ground emesis with possible upper GI bleeding, resolved Anemia, acute blood loss anemia possibly, stable Abdominal distention, possible acute small bowel obstruction versus ileus, present on admission, improved hyponatremia improved Hypokalemia, improved History of recent transmetatarsal amputation as well as bypass surgery 3 weeks ago at [facility] on the left leg peripheral vascular disease, severe history of coronary artery disease chronic anemia acute kidney injury with acute tubular necrosis, improved chronic obstructive pulmonary disease Hypertension chronic debility history of protein calorie malnutrition Sacral decubitus ulcer, stage III, present on admission History of nicotine dependence GI prophylaxis DVT prophylaxis Hypoalbuminemia with severe protein calorie malnutrition, present on admission and current with a BMI of 15.1 Increased white count no code, no CPR, no vent Discharge disposition Patient is being discharged in a stable condition with guarded prognosis to [facility]. Patient will follow-up with Dr. Amor upon discharge. Patient will also need to follow-up with cardiology and vascular surgery in 1-2 weeks. Patient to continue with nystatin swish and swallow 4 times daily for 1 week and then may discontinue. Total time taken is greater than 35 minutes. Hospital course This is a 65-year-old male who was admitted to the hospital with fevers and difficulty in breathing that it progressively been getting worse. Patient had recently undergone left distal foot amputation prior to admission at another facility and went back to rehab and experiencing worsening shortness of breath along with fevers and was sent here for further evaluation. Patient has had a prolonged hospitalization and was evaluated by multiple medical consultations. Patient also had atrial fibrillation with RVR. Patient had extensive limb ischemia and ultimately underwent left AKA. Patient does have a stage III decubitus ulcer of the sacrum that is being treated and recommend to continue with local wound care as mentioned below. Patient was on extensive antibiotics along with IV steroids and we'll transition the oral prednisone on discharge and IV antibiotics have been finished today of Invanz. Patient will need follow-up with vascular surgery for left AKA in 1-2 weeks. Patient is maintained on dys phasia to ground diet and recommend strict aspiration precautions one-to-one supervision with meals, head of the bed elevated 30-45 at all times, no straws and honey thickened liquids. Only patient denies any chest pain, shortness of breath, or palpitations. Patient is afebrile. White blood count mildly elevated and continues to trend down. Recommend repeat labs of CBC, BMP in the outpatient setting to monitor closely in 2-3 days. Patient will be discharged to [facility]. Guarded prognosis. Physical exam: Gen: This is 65-year-old male who is awake, thin built, confused at times although much more alert today.. Temp is 96.5F, pulse is 64, respirations are 16, blood pressure is 137/76, oxygen saturation is 99% on 2 L via nasal cannula. HEENT: Head is atraumatic, normocephalic. Pupils equal, round. Sclerae is anicteric. NECK: Supple. No JVD. No lymphadenopathy. No thyromegaly. LUNGS: Breath sounds are diminished at the bases with some scattered rhonchi noted. No intercostal retractions. HEART: S1, S2 are muffled ABDOMEN: Soft. thin. Bowel sounds are present. No masses. No tenderness. EXTREMITIES: No pedal edema. No calf tenderness. status post left aka with dressing intact NEUROLOGICAL: Awake with continued periods of confusion, alert and oriented x2, no focal deficits, diffusely weak Please refer to medication reconciliation sheet for a list of medications. Patient Condition at Discharge: Fair Plan - Discharge Summary New Discharge Prescriptions: New cloNIDine HCL [Catapres] 0.1 mg PO TID tab Metoprolol Tartrate [Lopressor] 100 mg PO BID tab Nystatin 100,000 Unit/ml Susp [Mycostatin Oral Susp] 5 ml PO QID 7 Days ml amLODIPine [Norvasc] 10 mg PO DAILY tab Amiodarone [Cordarone] 200 mg PO BID tab Ipratropium-Albuterol Nebulize [Duoneb 0.5 mg-3 mg/3 ml Soln] 3 ml INHALATION RT-QID ml Furosemide [Lasix] 20 mg PO DAILY tab HYDROcodone/APAP 5-325MG [[place] 5-325] 0.5 each PO Q6HR PRN #3 tab PRN Reason: Pain INSULIN ASPART (NovoLOG) [NovoLOG (formulary)] 0 unit SQ Q6H ml predniSONE 10 mg PO DIRECTED #30 tab QUEtiapine [SEROquel] 25 mg PO HS tab Continue Multivitamins, Thera [Multivitamin (formulary)] 1 tab PO DAILY Heparin Sodium,Porcine [Heparin Sodium] 5,000 unit SQ Q8HR Fluticasone/Vilanterol [Breo Ellipta 100-25 Mcg Inhaler] 1 puff INHALATION RT-DAILY Docusate [Colace] 100 mg PO DAILY Clopidogrel [Plavix] 75 mg PO DAILY Artificial Tears-Hypromellose [Artificial Tear Drops] 1 drop RIGHT EYE Q6H PRN PRN Reason: DRY EYES Acetaminophen [Tylenol] 650 mg PO Q4H PRN PRN Reason: Pain Or Fever > 100.5 Aspirin EC [Ecotrin Low Dose] 81 mg PO DAILY Omeprazole 20 mg PO DAILY Lidocaine 4% Patch 1 patch TRANSDERM DAILY Gabapentin 300 mg PO Q8H #6 cap Discontinued Metoprolol Tartrate [Lopressor] 100 mg PO Q8H Tamsulosin HCl [Flomax] 0.4 mg PO DAILY Morphine Sulfate Ir [MSIR] 30 mg PO Q6HR Diltiazem HCl [Cardizem LA] 180 mg PO DAILY Discharge Medication List Acetaminophen [Tylenol] 650 mg PO Q4H PRN 01/13/21 [History] Artificial Tears-Hypromellose [Artificial Tear Drops] 1 drop RIGHT EYE Q6H PRN 01/13/21 [History] Aspirin EC [Ecotrin Low Dose] 81 mg PO DAILY 01/13/21 [History] Clopidogrel [Plavix] 75 mg PO DAILY 01/13/21 [History] Docusate [Colace] 100 mg PO DAILY 01/13/21 [History] Fluticasone/Vilanterol [Breo Ellipta 100-25 Mcg Inhaler] 1 puff INHALATION RT- DAILY 01/13/21 [History] Heparin Sodium,Porcine [Heparin Sodium] 5,000 unit SQ Q8HR 01/13/21 [History] Lidocaine 4% Patch 1 patch TRANSDERM DAILY 01/13/21 [History] Multivitamins, Thera [Multivitamin (formulary)] 1 tab PO DAILY 01/13/21 [History] Omeprazole 20 mg PO DAILY 01/13/21 [History] Amiodarone [Cordarone] 200 mg PO BID tab 02/06/21 [Rx] Furosemide [Lasix] 20 mg PO DAILY tab 02/06/21 [Rx] Gabapentin 300 mg PO Q8H #6 cap 02/06/21 [Rx] HYDROcodone/APAP 5-325MG [[place] 5-325] 0.5 each PO Q6HR PRN #3 tab 02/06/21 [Rx] INSULIN ASPART (NovoLOG) [NovoLOG (formulary)] 0 unit SQ Q6H ml 02/06/21 [Rx] Ipratropium-Albuterol Nebulize [Duoneb 0.5 mg-3 mg/3 ml Soln] 3 ml INHALATION RT-QID ml 02/06/21 [Rx] Metoprolol Tartrate [Lopressor] 100 mg PO BID tab 02/06/21 [Rx] Nystatin 100,000 Unit/ml Susp [Mycostatin Oral Susp] 5 ml PO QID 7 Days ml 02/06/21 [Rx] QUEtiapine [SEROquel] 25 mg PO HS tab 02/06/21 [Rx] amLODIPine [Norvasc] 10 mg PO DAILY tab 02/06/21 [Rx] cloNIDine HCL [Catapres] 0.1 mg PO TID tab 02/06/21 [Rx] predniSONE 10 mg PO DIRECTED #30 tab 02/06/21 [Rx] Follow up Appointment(s)/Referral(s): Cameron Cevallos DO [STAFF PHYSICIAN] - 1 Week Sarbjit Amor DO [Primary Care Provider] - 1-2 days Eddie Cat MD [STAFF PHYSICIAN] - 1 Week Alfred Medina MD [STAFF PHYSICIAN] - As Needed Activity/Diet/Wound Care/Special Instructions: Evaluate left stump daily. 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 Patient is going to [facility] as tolerated Continue local wound care with cleansing the area with normal saline and applying absorptive silver, saline moistened gauze, and border foam on Thursday/Thursday/Thursday and more frequently if becomes soiled continue with frequent offloading and position changes every 2 hours Continue dysphagia to ground diet with one-to-one supervision, aspiration precautions, no straws, honey thickened liquids and head of the bed elevated 30- 45 at all times Recommend repeat CBC, BMP, magnesium in 2-3 days Continue with Magic cup chawla 3 times a day with meals follow up with primary care provider on discharge Follow-up vascular surgery outpatient Follow-up cardiology and pulmonary outpatient Continue nystatin swish and swallow 4 times daily for 7 days and then may discontinue Discharge/Stand Alone Forms: Personal Manager Production Discharge Disposition: TRANSFER TO SNF/ECF
[2021-02-06] MEDS: ERTAPENEM 1 GM in SODIUM CHLORIDE 0.9% 50 ML IVPB SCH (15:04)
--- NOTE | 2021-02-06 15:16 | P.PN ---
Subjective Progress Note Date: 02/06/21 Patient is seen and examined lying in bed. He is without any acute changes through the night. Pain is well controlled. Objective - Vital Signs Vital signs: Vital Signs Temp 96.5 F L 02/06/21 12:00 Pulse 64 02/06/21 14:00 Resp 16 02/06/21 14:00 BP 137/76 02/06/21 12:00 Pulse Ox 99 02/06/21 12:00 Intake & Output 02/05/21 02/06/21 02/06/21 18:59 06:59 18:59 Intake Total 701 480 236 Output Total 325 625 Balance 701 155 -389 Weight 54.839 kg Intake: Oral 701 480 236 Output: Urine 325 625 Other: Voiding Method Indwelling Catheter Indwelling Catheter Indwelling Catheter # Bowel Movements 1 - Exam General appearance: The patient is alert, oriented, in no acute distress. HET: Head is normocephalic and atraumatic. Pupils are equal and reactive. Oropharynx is clear without lesions. 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 Neurological: No focal deficits. Alert and oriented 3. - Labs CBC & Chem 7: 02/06/21 07:19 02/06/21 07:19 Labs: Abnormal Lab Results - Last 24 Hours (Table) 02/05/21 02/05/21 02/06/21 Range/Units 17:14 23:13 06:12 WBC (3.8-10.6) k/uL RBC (4.30-5.90) m/uL Hgb (13.0-17.5) gm/dL Hct (39.0-53.0) % RDW (11.5-15.5) % Neutrophils # (1.3-7.7) k/uL Lymphocytes # (1.0-4.8) k/uL Monocytes # (0-1.0) k/uL Chloride (98-107) mmol/L BUN (9-20) mg/dL POC Glucose (mg/dL) 49 L 148 H 70 L (75-99) mg/dL Procalcitonin (0.02-0.09) ng/mL 02/06/21 02/06/21 02/06/21 Range/Units 07:19 07:19 07:19 WBC 22.7 H (3.8-10.6) k/uL RBC 3.67 L (4.30-5.90) m/uL Hgb 11.5 L (13.0-17.5) gm/dL Hct 35.9 L (39.0-53.0) % RDW 17.6 H (11.5-15.5) % Neutrophils # 20.0 H (1.3-7.7) k/uL Lymphocytes # 0.4 L (1.0-4.8) k/uL Monocytes # 2.0 H (0-1.0) k/uL Chloride 109 H (98-107) mmol/L BUN 55 H (9-20) mg/dL POC Glucose (mg/dL) (75-99) mg/dL Procalcitonin 0.10 H (0.02-0.09) ng/mL 02/06/21 Range/Units 11:55 WBC (3.8-10.6) k/uL RBC (4.30-5.90) m/uL Hgb (13.0-17.5) gm/dL Hct (39.0-53.0) % RDW (11.5-15.5) % Neutrophils # (1.3-7.7) k/uL Lymphocytes # (1.0-4.8) k/uL Monocytes # (0-1.0) k/uL Chloride (98-107) mmol/L BUN (9-20) mg/dL POC Glucose (mg/dL) 103 H (75-99) mg/dL Procalcitonin (0.02-0.09) ng/mL Assessment and Plan Assessment: 1. Critical limb ischemia left lower extremity postop day # 6 AKA 2. Severe sepsis status post shock History 3. ESBL Klebsiella pneumonia 4. Atrial fibrillation 5. Anemia 6. History of left lower extremity bypass and TMA at [facility] 7. Acute kidney injury 8. COPD Plan: 1. Physical therapy to work with patient status post amputation 2. Keep prostatic dressing in place 3. Patient is cleared for discharge from vascular surgery. Follow up with Dr. Cevallos in one week. The impression and plan of care has been dictated as directed. Dr. Pollack I performed a history and examination of this patient, discussed the same with the dictator. I agree with the dictator's note ,documented as a scribe. Any additional findings or plans will be noted.
--- NOTE | 2021-02-06 15:29 | PN ---
PROGRESS NOTE DATE OF SERVICE: 02/06/2021 REASON FOR FOLLOWUP: 1. ESBL Klebsiella pneumonia. 2. Elevated white count. INTERVAL HISTORY: The patient is afebrile. The patient is currently breathing comfortably. The patient denies having any chest pain or shortness of breath. No worsening cough. No abdominal pain or diarrhea. PHYSICAL EXAMINATION: Blood pressure is 134/77, pulse of 51, temperature 96.2. He is 96% on 2 L nasal cannula. General description is an elderly male lying in bed in no distress. Respiratory system: Unlabored breathing, decreased intensity of breath sounds. No wheeze. Heart S1, S2. Regular rate and rhythm. Abdomen soft, no tenderness. LABS: Hemoglobin is 11.5, white count 2.7, BUN 55, creatinine 1.08. DIAGNOSTIC IMPRESSION AND PLAN: 1. Patient with ESBL Klebsiella pneumonia, likely aspiration etiology in this patient who did have small bowel obstruction that has resolved. The patient has received 2 weeks of IV Invanz. That should be enough for his underlying pneumonia. 2. Patient with persistently elevated white count that has not responded to the Eraxis; could be related to the steroid the patient has been on, as no other obvious focus of infection, and we will monitor closely off antibiotic. PICC line to be discontinued on discharge. This was discussed with the nurse practitioner working on discharge. MMODL / EDGARN: [id number] /
[2021-02-06 16:33] VITALS: BP 130/70; PULSE 63; RESP 17; TEMP 96.2
[2021-02-06] MEDS: LACTATED RINGERS 1,000 ML IV SCH (17:24)
== END 2021-02-06 17:57 | DRG 853 ==
LOC: EC 05:23 → 3SCARD 08:52 → 2SICU 01-16 12:12 → 3SCARD 01-25 11:12
PROVIDERS: ADMIT Internal Medicine; ATTEND Internal Medicine
PROC: 02HV33Z Insertion of Infusion Device into Superior Vena Cava, Percutaneous Approach (ICD-10-PCS; 2021-01-16)
PROC: 5A0945A Assistance with Respiratory Ventilation, 24-96 Consecutive Hours, High Flow/Velocity Cannula (ICD-10-PCS; 2021-01-18)
PROC: 30233N1 Transfusion of Nonautologous Red Blood Cells into Peripheral Vein, Percutaneous Approach (ICD-10-PCS; 2021-01-22)
PROC: 02HV33Z Insertion of Infusion Device into Superior Vena Cava, Percutaneous Approach (ICD-10-PCS; 2021-01-25)
PROC: 0Y6D0Z3 Detachment at Left Upper Leg, Low, Open Approach (ICD-10-PCS; principal; 2021-01-30 09:30)
DX: A41.9 Sepsis, unspecified organism (principal); L89.153 Pressure ulcer of sacral region, stage 3; L89.303 Pressure ulcer of unspecified buttock, stage 3; E43 Unspecified severe protein-calorie malnutrition; G93.41 Metabolic encephalopathy; I50.31 Acute diastolic (congestive) heart failure; J15.0 Pneumonia due to Klebsiella pneumoniae; J15.6 Pneumonia due to other Gram-negative bacteria; J69.0 Pneumonitis due to inhalation of food and vomit; J96.01 Acute respiratory failure with hypoxia; N17.0 Acute kidney failure with tubular necrosis; R57.1 Hypovolemic shock; R65.21 Severe sepsis with septic shock; D62 Acute posthemorrhagic anemia; Z68.1 Body mass index [BMI] 19.9 or less, adult; E87.1 Hypo-osmolality and hyponatremia; E87.2 Acidosis; I48.92 Unspecified atrial flutter; I70.262 Atherosclerosis of native arteries of extremities with gangrene, left leg; I73.01 Raynaud's syndrome with gangrene; J44.0 Chronic obstructive pulmonary disease with (acute) lower respiratory infection; J98.11 Atelectasis; K55.1 Chronic vascular disorders of intestine; K56.609 Unspecified intestinal obstruction, unspecified as to partial versus complete obstruction; K56.7 Ileus, unspecified; K57.92 Diverticulitis of intestine, part unspecified, without perforation or abscess without bleeding; L03.90 Cellulitis, unspecified; B37.0 Candidal stomatitis; Z20.822 Contact with and (suspected) exposure to COVID-19; E87.6 Hypokalemia; F17.200 Nicotine dependence, unspecified, uncomplicated; F32.A Depression, unspecified; I25.10 Atherosclerotic heart disease of native coronary artery without angina pectoris; I25.2 Old myocardial infarction; I11.0 Hypertensive heart disease with heart failure; I48.0 Paroxysmal atrial fibrillation; I49.3 Ventricular premature depolarization; L89.152 Pressure ulcer of sacral region, stage 2; M19.90 Unspecified osteoarthritis, unspecified site; T38.0X5A Adverse effect of glucocorticoids and synthetic analogues, initial encounter; Z66 Do not resuscitate; Z79.01 Long term (current) use of anticoagulants; Z79.02 Long term (current) use of antithrombotics/antiplatelets; Z79.51 Long term (current) use of inhaled steroids; Z79.82 Long term (current) use of aspirin; Z79.899 Other long term (current) drug therapy; Z82.49 Family history of ischemic heart disease and other diseases of the circulatory system; Z90.49 Acquired absence of other specified parts of digestive tract; Z93.3 Colostomy status; Z95.5 Presence of coronary angioplasty implant and graft; Z86.14 Personal history of Methicillin resistant Staphylococcus aureus infection
CPT/HCPCS: 36415; 36573; 64447; 71045; 71046; 74018; 74176; 74230; 76942; 80048; 80053; 80202; 81001; 82040; 82271; 82272; 82330; 83605; 83735; 83880; 84100; 84132; 84145; 84443; 84478; 84484; 85025; 85027; 85610; 85730; 86140; 86850; 86900; 86901; 86920; 87040; 87070; 87077; 87086; 87186; 87205; 87324; 87635; 93005; 93306; 94640; 94760; 96361; 96374; 99291